=== PATIENT | female | born 1960 | race Caucasian/White ===

== ENCOUNTER 2018-01-15 16:23 | Emergency (ER) | payer MEDICARE, SELFPAY ==
[2018-01-15 16:24] VITALS: PULSE 117; RESP 13; TEMP 36.9; O2SAT 96; BMI 34.0
[2018-01-15 16:28] VITALS: BP 172/101; PULSE 114; RESP 18; O2SAT 96
--- NOTE | 2018-01-15 16:45 | EKG12_ITS ---
Test Reason : CP Blood Pressure : / mmHG Vent. Rate : 114 BPM Atrial Rate : 114 BPM P-R Int : 128 ms QRS Dur : 088 ms QT Int : 342 ms P-R-T Axes : 069 048 064 degrees QTc Int : 471 ms Sinus tachycardia Nonspecific ST abnormality Abnormal ECG Confirmed by SIMON MONTILLA, EBENEZER ([id number]), journalism teacher JOLIE OLGUIN ([id number]) on 01/19/2018 4:20:02 PM Referred By: Confirmed By:EBENEZER MONTES MD
--- NOTE | 2018-01-15 16:50 | RAD_ITS ---
STUDY: X-RAY CHEST REASON FOR EXAM: Female, 57 years old. Chest pain TECHNIQUE: Single AP portable view of the chest. COMPARISON: Previous study of 02/05/2017 FINDINGS: professor/nurse anesthetist leads are present. The lungs are clear and expanded. There is no demonstrated pleural abnormality. Normal size heart. Normal mediastinum and joseluis. Normal visualized pulmonary arteries. There are calcified plaques of the aortic arch. Normal visualized thoracic spine. There is a small smooth margined calcification superior to the right humeral head which may represent calcific tendinitis or bursitis. There is no demonstrated abnormality of the visualized soft tissue structures of the upper abdomen. RAD/Chest 1 View (Portable) IMPRESSION: Calcified plaques of the aortic arch. No acute cardiopulmonary disease process is seen. Electronically Signed: Khris Humphrey MD at 17:23 EST , Service support ,
[2018-01-15 17:00] LABS: Absolute Lymphocyte Count 2.26 X10^3/ul (0.83-4.51); Absolute Neutrophil Count 18.5 X10^3/uL (2.0-7.7); Basophil# 0.03 X10^3/uL; Basophil% 0.1 % (0-1); Hematocrit 41.5 % (37-47); Hemoglobin 14.6 g/dl (12.0-15.0); Lymphocyte # 2.26 X10^3/ul (4.0); Lymphocyte % 10.3 % (19-41); Mean Corp Hgb Conc 35.2 g/gl (32-36); Mean Corpuscular Hgb 29.8 pg (27.0-32.0); Mean Corpuscular Volume 84.7 fL (81-99); Monocyte# 0.97 X10^3/uL; Monocyte% 4.4 % (0-10); Neutrophil # 18.54 X10^3/uL (2.7-7.7); Neutrophil % 84.2 % (47-70); Platelet Count 450 K/mm3 (150-450); RBC Distribution Width CV 13.4 % (11.6-14.6); RBC Distribution Width SD 41.1 fl (35.1-43.9)
[2018-01-15 17:03] LABS: POSITIVE COUNT NO; POSITIVE DIFFERENTIAL NO; POSITIVE MORPHOLOGY NO
[2018-01-15 17:07] VITALS: O2SAT 98
[2018-01-15 17:19] LABS: Anion Gap 7 (5-15); BUN 11 mg/dL (7-18); BUN/Creat Ratio 14.1 RATIO (10-20); Calcium,Total 9.1 mg/dL (8.5-10.1); Chloride 108 mmol/L (98-107); Creatinine, Serum 0.78 mg/dL (0.55-1.02); D-Dimer Quantitative (DVT/PE) 0.37 FEU/ug/m (0.27-0.49); EST Glomerular Filtration Rate 81 mL/min (>60); Est Glom Filt Rate - Afr Amer 98 mL/min (>60); Estimated Creatinine Clearance 62.94 ml/min; Glucose 110 mg/dL (74-106); Potassium 3.7 mmol/L (3.5-5.1); Sodium Level 142 mmol/L (136-145); Thyroid Stim Hormone (TSH) 0.38 uIU/mL (0.358-3.74)
[2018-01-15] MEDS: Aspirin 81 MG TAB.CHEW 324 MG PO (17:19)
[2018-01-15] MEDS: 0.9% Normal Saline 1,000 ML 150 ML IV (17:19)
[2018-01-15 17:48] VITALS: BP 164/105; PULSE 97; RESP 20; O2SAT 97
[2018-01-15] MEDS: Ondansetron ODT 4 MG Tablet PO (17:48)
--- NOTE | 2018-01-15 17:53 | EKG12_ITS ---
Test Reason : REPEAT Blood Pressure : / mmHG Vent. Rate : 090 BPM Atrial Rate : 090 BPM P-R Int : 128 ms QRS Dur : 086 ms QT Int : 380 ms P-R-T Axes : 069 044 047 degrees QTc Int : 464 ms Normal sinus rhythm Normal ECG Confirmed by SIMON MONTILLA, EBENEZER ([id number]), content editor JOLIE OLGUIN ([id number]) on 01/19/2018 4:20:14 PM Referred By: DEON Confirmed By:EBENEZER MONTES MD
[2018-01-15 19:21] LABS: Bacteria 0 SEEN /hpf (None Seen); Mucous, Urine 0 SEEN /hpf (<or=2+); Red Blood Cells-Urine 0 SEEN /hpf (0-5); White Blood Cells 0 SEEN /hpf (0-5)
[2018-01-15 19:51] LABS: Color, Urine Yellow (Yellow); Glucose, Dipstick Normal (Normal); Ketone-Dipstick Negative (Negative); Leukocyte Esterase-Dipstick Negative /ul (Negative); Nitrite-Dipstick Negative (Negative); Occult Blood-Urine Negative /ul (Negative); Protein-Dipstick Negative (Negative); Urine Bilirubin Dipstick Negative (Negative); Urine Clarity Sl. Cloudy (Clear); Urine Urobilinogen Normal (Normal)
[2018-01-15 20:00] VITALS: PULSE 94; RESP 18; O2SAT 97
[2018-01-15 20:15] LABS: Squamous Epithelial Cells - UA 0-5 SEEN /hpf (5-10)
--- NOTE | 2018-01-15 20:48 | ED.VISSUMM ---
- ER Visit Summary Date of Service: 01/15/18 Chief Complaint: Chest pain History of Present Illness: The patient is a [address] Andrew Broderick III and Dr. Shankar. She reports that he she has chest pain again at 1230 this afternoon while she was arguing with her son. She reports that it is a pressure in her back, lower chest on the left, and left shoulder. It was 10 out of 10 at worst and 710 currently. Is worsened by exertion. She taken nitroglycerin with temporary relief. She reports she was nauseated, short of breath, diaphoretic with this. Patient reports that over the course the past month she has had increased dyspnea on exertion and chest pain with exertion. Physical Examination: Vitals: Stable. Afebrile. General: Well-nourished and well-developed. Head: Normocephalic atraumatic. Neck: Supple, no lymphadenopathy. No JVD. Nontender. Cardiovascular: Regular rate and rhythm. No murmurs. Respiratory: No respiratory distress. Clear to auscultation bilaterally. Abdominal: Soft, nontender, nondistended, normal bowel sounds. No guarding, rebound, or peritoneal signs. Back: Nontender. Extremities: Nontender, no edema. Skin: Normal color, no rash. Neurologic: Alert and oriented ?3. Cranial nerves II through XII are intact. Normal strength and sensation. Psych: Normal affect. Test Results: Chest x-ray is normal. EKG is sinus tach 1 with [address] changes. This is unchanged from February 05, 2017. Repeat EKG is unchanged. CBC is marked for a white count of 22, 7 neutrophils 84, lymphocytes of 10. Chem-7 is more for chloride 108 and glucose of 110. UA is normal. Troponin is negative. Repeat troponin is negative. D-dimer is negative. TSH is normal. Emergency Department Course and Treatment: Patient was treated with aspirin and a dose of morphine IV. She is resting comfortably. I had a prolonged discussion with her about being admitted to the hospital on the concerning nature of the character of her chest pain. She is refusing to stay. She will be signed out AGAINST MEDICAL ADVICE. Treatment Plan: I discussed her with Dr. Shankar who also feels that she should stay in the hospital back in and talk with her about that. She still refuses to stay. She is instructed to follow-up with him as soon as possible. Return to the emergency department for any worsening or change in the character of her pain or even if she just changes her mind. Disposition: Left AGAINST MEDICAL ADVICE Impression: 1. Chest pain. 2. DOMINIC score of 1. 3. Left AMA. 4. Leukocytosis, uncertain cause. This note was generated with [employer] dictation software. It may contain incorrect words, spelling, and punctuation that were not noted in review of the chart prior to signing ED Disposition - Plan for ED Patient: Disposition: Against Medical Advice Chief Complaint: Chest Pain Instructions: ED Chest Pain Atypical Unkn Cause Referrals: Lazaro Bazan MD [STAFF PHYSICIAN] - As soon as possible
[2018-01-15 20:49] VITALS: RESP 20
== END 2018-01-15 21:05 | disposition left against medical advice (07) ==
PROVIDERS: Emergency Provider Emergency Medicine; Family Provider Family Medicine; PCP Family Medicine
DX: R07.9 Chest pain, unspecified (principal); D72.829 Elevated white blood cell count, unspecified; R06.09 Other forms of dyspnea; R51 Headache; R11.0 Nausea; F32.9 Major depressive disorder, single episode, unspecified; E11.9 Type 2 diabetes mellitus without complications; I10 Essential (primary) hypertension; E78.00 Pure hypercholesterolemia, unspecified; J44.9 Chronic obstructive pulmonary disease, unspecified; Z86.73 Personal history of transient ischemic attack (TIA), and cerebral infarction without residual deficits; F17.200 Nicotine dependence, unspecified, uncomplicated
CPT/HCPCS: 71045; 80048; 81001; 84443; 84484; 85025; 85379; 93005; 96361; 96374; 99284; J7030; A4216

== ENCOUNTER → 2018-02-09 16:59 | Outpatient (CLI) | payer MEDICARE, SELFPAY ==
--- NOTE | 2018-02-09 17:01 | CT_ITS ---
STUDY: LOW DOSE CT LUNG CANCER SCREENING REASON FOR EXAM: Female, 57 years old. Tobacco use. RADIATION DOSAGE (If Supplied By Facility): CTDIvol = ( 3.02 ) mGy, DLP = ( 94.40 ) mGycm TECHNIQUE: No contrast was administered. Low dose technique was utilized (average mAS-38 and kVp 120). 1.25 mm axial source images with a slice interval of 1.25-mm were reconstructed in lung windows. 2.5 mm axial source images with a slice interval of 2.5-mm were reconstructed in lung windows. 5.0 mm axial source images with a slice interval of 5.0-mm were reconstructed in soft tissue windows. Nodule measured using lung windows on PACS and/or independent workstation with automated measurement of minimum and maximum diameter. Nodule measurement reported as average diameter rounded to the nearest whole number. Growth is defined as an increase ins size of greater than 1.5 mm. COMPARISON: CT of the chest, May 03, 2013. NODULES: Nodule #: 1 Density: Ground glass Lung location: Right upper lobe: 2.8 cm from pleura Location in series: Series Number: 2 Image: 85 Size - D1 x D2 mm: 5 x 4 mm: 5 mm average diameter Margin: Ill-defined Shape: Triangular Calcification: No Fat: No Temporal comparison: No Total lung nodules (excluding granulomas): 1 Emphysema: There is diffuse emphysematous changes of the lungs with blebs in the right upper lobe unchanged from the prior study. Endobronchial lesion: None Aorta: There is atherosclerotic changes of the aorta without aneurysm. Coronary arteries: There are coronary artery calcifications. Heart: The heart is normal in size. Pulmonary artery: Normal Mediastinal nodes: None Other chest and abdominal findings: None CT/Low Dose CT Lung Screening IMPRESSION: Lung-RADS category 2 - Continue annual screening with LDCT in 12 months. IMPORTANT NOTES FOR USE: ACR Lung-RADS Version 1.0 Assessment Categories Release Date: March 13, 2014 Category: Coded 0-4 bases on nodule(s) with highest degree of suspicion. Negative screen is defined as categories 1 and 2; a positive screen is defined as categories 3 and 4. Category 3 and 4A nodules that are unchanged on interval CT should be coded as category 2, and individuals returned to screening in 12 months. Category 4X: Category 3 or 4 nodules with additional imaging findings that increase the suspicion of lung cancer, such as spiculation, GGN that doubles in size in 1 year, enlarged lymph notes, etc. Category Modifiers: S (significant finding unrelated to lung cancer) and C (prior history of treated lung cancer) may be added to the 0-4 Lung-RADS Electronically Signed: Ambrocio Grimes DO at 17:06 EDT Tel [phone], Service support ,
== END ==
PROVIDERS: Family Provider Family Medicine; PCP Family Medicine; Visit Provider Internal Medicine Hematology & Oncology
DX: Z12.2 Encounter for screening for malignant neoplasm of respiratory organs (principal); Z87.891 Personal history of nicotine dependence
CPT/HCPCS: G0297

== ENCOUNTER → 2018-06-16 21:04 | Outpatient (CLI) | payer MEDICARE, SELFPAY ==
[2018-06-16] MEDS: Zolpidem Tartrate 5 MG Tablet PO (21:50)
== END ==
PROVIDERS: Family Provider Family Medicine; PCP Family Medicine; Visit Provider Nurse Practitioner Acute Care
DX: G47.33 Obstructive sleep apnea (adult) (pediatric) (principal)
CPT/HCPCS: 95810

== ENCOUNTER → 2018-06-29 11:03 | Outpatient (CLI) | payer MEDICARE, SELFPAY ==
--- NOTE | 2018-06-29 14:14 | PFT ---
INTRODUCTION: The patient is a 57-year-old female that presents for pulmonary function testing secondary to a diagnosis of dyspnea on exertion. Respiratory therapy reports good patient effort. Bronchodilators were used during testing. INTERPRETATION: Forced expiration spirometry demonstrates no evidence of a large airways obstructive ventilatory defect. There was a significant bronchodilator response noted, based upon change in FEV1. Spirograms are of good quality and plateau normally. Body plethysmography was performed and reveals an elevated RV to 141% of predicted, indicative of underlying air trapping. Diffusing capacity by single breath CO is preserved at 74% of predicted. 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
== END ==
PROVIDERS: Family Provider Family Medicine; PCP Family Medicine; Visit Provider Internal Medicine Critical Care Medicine
DX: R06.09 Other forms of dyspnea (principal)
CPT/HCPCS: 94060; 94726; 94729

== ENCOUNTER → 2018-07-01 11:27 | Outpatient (CLI) | payer MEDICARE, SELFPAY ==
[2018-07-01 13:03] VITALS: PULSE 101; PULSE 104; PULSE 105; PULSE 110; PULSE 111; PULSE 112; PULSE 115; PULSE 98; O2SAT 93; O2SAT 95; O2SAT 96; O2SAT 97
--- NOTE | 2018-07-02 07:37 | PCM.PSN.6M ---
PSN 6 Minute Walk Test - 6 Minute Walk Test 6 Minute Walk Test: 6 Minute Walk Test PSN:6-Minute Walk Test Start: 07/01/18 13:03 Freq: Status: Active Protocol: [id number] Document 07/01/18 13:03 FR (Rec: 07/01/18 13:15 FR [id number]) 6 Minute Walk Test Date Performed 07/01/18 Time Performed 11:30 Height 5 ft 2 in Weight: 180 lb Weight in Pounds 180.[address]: Kumar Manzanares Assistive device used: None Pre-test Oxygen Delivery Method Room Air Pulse Ox (%) 96 Pulse Rate (60-100 beats/min) 104 H Dyspnea Linette Scale (0-10) 3 Exertion Linette Scale (6-20) 9 1st minute Oxygen Delivery Method Room Air Pulse Ox (%) 93 Pulse Rate (60-100 beats/min) 101 H 2nd minute Oxygen Delivery Method Room Air Pulse Ox (%) 95 Pulse Rate (60-100 beats/min) 105 H 3rd minute Oxygen Delivery Method Room Air Pulse Ox (%) 96 Pulse Rate (60-100 beats/min) 110 H 4th minute Oxygen Delivery Method Room Air Pulse Ox (%) 95 Pulse Rate (60-100 beats/min) 115 H 5th minute Oxygen Delivery Method Room Air Pulse Ox (%) 95 Pulse Rate (60-100 beats/min) 111 H Reported Symptoms Increased Work of Breathing 6th minute Oxygen Delivery Method Room Air Pulse Ox (%) 97 Pulse Rate (60-100 beats/min) 112 H Dyspnea Linette Scale (0-10) 14 Reported Symptoms Increased Work of Breathing Post-test Oxygen Delivery Method Room Air Pulse Ox (%) 97 Pulse Rate (60-100 beats/min) 98 Full Laps Walked 17 Partial Lap, Number of Tiles Walked 49 Total Distance Walked (ft) 1052 - Interpretation Interpretation: The patient ambulated 1052 feet over the course of 6 minutes beginning on room air without assistive devices or breaks. Pretesting oxygen saturation was noted be 96% on room air. With ambulation, the norbert oxygen saturation was 93%. The patient was notably tachycardic throughout the entire test. There was no significant exertional oxygen desaturation. - Recommendations Recommendations: There is no indication for the use of supplemental oxygen at this time.
== END ==
PROVIDERS: Family Provider Family Medicine; PCP Family Medicine; Visit Provider Internal Medicine Critical Care Medicine
DX: R06.09 Other forms of dyspnea (principal)
CPT/HCPCS: 94618

== ENCOUNTER → 2018-11-01 20:11 | Outpatient (CLI) | payer MEDICARE, SELFPAY ==
[2018-11-01] MEDS: Zolpidem Tartrate 5 MG Tablet PO (21:15)
--- OUTSIDE RECORDS SUMMARY | 2019-02-03 10:15 | XMS RPT_ITS ---
:1960 Author Organization OHIP Support Name Relationship Address Phone CYNTHIA TANNA Unavailable [address] + [place] [address] D Unavailable Unavailable Unavailable HOLLOWAY, EVERETT Unavailable [address] + [place] [address] CYNTHIA, TANNA Unavailable [address] + [place] [address] D Unavailable Unavailable Unavailable HOLLOWAY, EVERETT Unavailable [address] + [place] [address] CYNTHIA, TANNA Unavailable [address] + [place] [address] D Unavailable Unavailable Unavailable HOLLOWAY, EVERETT Unavailable [address] + [place] [address] CYNTHIA, TANNA Unavailable [address] + [place] [address] D Unavailable Unavailable Unavailable HOLLOWAY, EVERETT Unavailable [address] + [place] [address] CYNTHIA, TANNA Unavailable [address] + [place] [address] D Unavailable Unavailable Unavailable HOLLOWAY, EVERETT Unavailable [address] + [place] [address] CYNTHIA, TANNA Unavailable [address] + [place] [address] D Unavailable Unavailable Unavailable HOLLOWAY, EVERETT Unavailable [address] + [place] [address] CYNTHIA, TANNA Unavailable [address] + [place] [address] D Unavailable Unavailable Unavailable HOLLOWAY, EVERETT Unavailable [address] + [place] [address] CYNTHIA, TANNA Unavailable [address] + [place] [address] D Unavailable Unavailable Unavailable HOLLOWAY, EVERETT Unavailable [address] + [place] [address] CYNTHIA, TANNA Unavailable [address] + [place] [address] D Unavailable Unavailable Unavailable HOLLOWAY, EVERETT Unavailable [address] + [place] [address] CYNTHIA, TANNA Unavailable [address] + [place] [address] D Unavailable Unavailable Unavailable HOLLOWAY, EVERETT Unavailable [address] + [place] [address] CYNTHIA, TANNA Unavailable [address] + [place] [address] D Unavailable Unavailable Unavailable HOLLOWAY, EVERTET Unavailable [address] + [place] [address] Care Team Providers Name Role Phone LAZARO VARGAS Attending Unavailable CEBUL, MARE Referring Unavailable CEBUL, MARE Primary Care Unavailable LAZARO VARGAS Attending Unavailable CEBUL, MARE Referring Unavailable CEBUL, MARE Primary Care Unavailable ARETHA DOMINIQUE Admitting Unavailable ARETHA DOMINIQUE Attending Unavailable CEBUL, MARE Primary Care Unavailable LAZARO VARGAS Attending Unavailable CEBUL, MARE Primary Care Unavailable LAZARO VARGAS Referring Unavailable LAZARO VARGAS Attending Unavailable LAZARO VARGAS Referring Unavailable CEBUL, MARE Primary Care Unavailable ABDOLLAHI MOFAKHAM, ALEXUS Admitting Unavailable ABDOLLAHI MOFSURJITHAM, ALEXUS Attending Unavailable CEBUL III, MARE A Referring Unavailable LAZARO VARGAS Attending Unavailable LAZARO VARGAS Referring Unavailable ARETHA DOMINIQUE Admitting Unavailable ARETHA DOMINIQUE Attending Unavailable LAZARO VARGAS Attending Unavailable CEBUL III, MARE A Referring Unavailable Cebul III, Mare Primary Care Unavailable Enrique Bradford Attending Unavailable Gisell Silva Attending Unavailable Gisell Silva Referring Unavailable Cebul III, Mare Primary Care Unavailable Kumar Manzanares Attending Unavailable Cebul III, Mare Referring Unavailable Kumar Manzanares Attending Unavailable Kumar Manzanares Referring Unavailable Cebul III, Mare Primary Care Unavailable Eloise Holloway Attending Unavailable Cebul III, Mare Referring Unavailable Holloway, Eloise Attending Unavailable Cebul III, Mare Primary Care Unavailable Leighton, Kumar Attending Unavailable Leighton, Kumar Referring Unavailable Cebul III, Mare Primary Care Unavailable Kaz Hodge D.O. Attending Unavailable Leighton, Kumar Referring Unavailable Kaz Hodge D.O. Attending Unavailable Leighton, Kumar Referring Unavailable Leighton, Kumar Attending Unavailable Cebul III, Mare Referring Unavailable Leighton, Kumar Attending Unavailable Cebul III, Mare Primary Care Unavailable CEBUL III, MARE A Attending Unavailable SAM, LAZARO E Referring Unavailable THORPE, JESSEE (TRAIN STATION AGENT) Attending Unavailable RUTTI, LINDSEY (BOOTH USHER) Referring Unavailable RUTTI, LINDSEY (BOOTH USHER) Referring Unavailable RUTTI, LINDSEY (BOOTH USHER) Referring Unavailable RUTTI, LINDSEY (BOOTH USHER) Attending Unavailable CEBUL III, MARE A Attending Unavailable RUTTI, LINDSEY (BOOTH USHER) Referring Unavailable RAJEEV ZUÑIGA Attending Unavailable THORPE, JESSEE (TRAIN STATION AGENT) Referring Unavailable CEBUL III, MARE A Attending Unavailable THORPE, JESSEE (TRAIN STATION AGENT) Attending Unavailable THORPE, JESSEE (TRAIN STATION AGENT) Referring Unavailable SAM, LAZARO E Attending Unavailable SAM, LAZARO E Referring Unavailable THORPE, JESSEE (TRAIN STATION AGENT) Referring Unavailable CEBUL III, MARE A Referring Unavailable CEBUL III, MARE A Attending Unavailable LYNDA HUNTER (TRAIN STATION AGENT) Referring Unavailable RUTTI, LINDSEY (BOOTH USHER) Attending Unavailable RUTTI, LINDSEY (BOOTH USHER) Attending Unavailable CEBUL III, MARE A Referring Unavailable CEBUL III, MARE A Attending Unavailable RICARDO, LAPMAN Referring Unavailable RICARDO, LAPMAN Attending Unavailable CEBUL III, MARE A Referring Unavailable RICARDO, LAPMAN Referring Unavailable RUTTI, LINDSEY (BOOTH USHER) Attending Unavailable SAM, LAZARO E Referring Unavailable LYNDA HUNTER (TRAIN STATION AGENT) Referring Unavailable PROBLEMS PROBLEMS DATE TYPE CONDITION / CODE ATTENDING STATUS SOURCE 11/01/2018 Unknown G47.33 - Obstructive LeightonKumar christina Active [place] sleep apnea (adult) Community (pediatric) / Hospital G47.33(ICD-10) Repository 10/20/2018 Unknown J45.40 - Moderate Leighton, Kumar Active [place] persistent asthma, Community uncomplicated / Hospital J45.40(ICD-10) Repository 10/20/2018 Unknown Z72.0 - Tobacco use Leighton, Kumar Active [place] / Z72.0(ICD-10) [facility] Hospital Repository 08/27/2018 Active Fatty (change of) ABDOLLAHI Active [place] liver, not elsewhere [facility] Other classified / [facility] K76.0(ICD-10) Repository 07/15/2018 Active Unknown / CEBUL III, Active [place] UNK(Unknown) MARE A [facility] Main [place] Repository 07/14/2018 Active Personal history of NA Active [place] other specified Clinic Main conditions / [place] Z87.898(ICD-10) Repository 07/14/2018 Active Nausea / NA Active [place] R11.0(ICD-10) [facility] [place] Repository 07/09/2018 Active Right upper quadrant NA Active [place] pain / Clinic Main R10.11(ICD-10) [place] Repository 07/09/2018 Active Abdominal distension NA Active [place] (gaseous) / Clinic Main R14.0(ICD-10) [place] Repository 07/09/2018 Active Anorexia / NA Active [place] R63.0(ICD-10) Clinic Main [place] Repository 07/08/2018 Unknown R06.09 - Other forms Kaz Hodge, Active [place] of dyspnea / D.O. Community R06.09(ICD-10) Hospital Repository 07/08/2018 Unknown R06.01 - Orthopnea / Kaz Hodge, Active [place] R06.01(ICD-10) D.O. [facility] Hospital Repository 02/09/2018 Unknown Z87.891 - Personal Gisell Silva Active [place] history of nicotine Community dependence / Hospital Z87.891(ICD-10) Repository 12/25/2011 Active Atherosclerotic SAM, Active [place] heart disease of [facility] Other [place] coronary [place] artery without Repository angina pectoris / I25.10(ICD-10) 02/02/2018 Active Secondary NA Active [place] polycythemia / Clinic Main D75.1(ICD-10) [place] Repository 01/29/2018 Active Bandemia / NA Active [place] D72.825(ICD-10) Clinic Main [place] Repository 01/28/2018 Active Essential NA Active [place] (hemorrhagic) Clinic Main thrombocythemia / [place] D47.3(ICD-10) Repository 01/25/2018 Active Angina pectoris, ARETHA DOMINIQUE Active [place] unspecified / [facility]RISTIANO Clinic Other I20.9(ICD-10) [place] Repository 01/22/2018 Active Elevated white blood NA Active [place] cell count, Clinic Main unspecified / [place] D72.829(ICD-10) Repository 01/22/2018 Active Headache / NA Active [place] R51(ICD-10) Clinic Main [place] Repository 05/23/2016 Active Hyperlipidemia, SAM, Active [place] unspecified / LAZARO E Clinic Other E78.5(ICD-10) [place] Repository 01/18/2018 Active Chest pain, SAM, Active [place] unspecified / LAZARO E Clinic Other R07.9(ICD-10) [place] Repository 01/18/2018 Active Other hyperlipidemia SAM, Active [place] / E78.4(ICD-10) LAZARO E Clinic Other [place] Repository 05/23/2016 Admitting Unknown / SAM, Active [place] General diagnosis UNK(Unknown) [facility] Repository 05/26/2013 Active Essential (primary) NA Active [place] hypertension / Clinic Main I10(ICD-10) [place] Repository 03/19/2011 Active Vitamin D NA Active [place] deficiency, Clinic Main unspecified / [place] E55.9(ICD-10) Repository 01/07/2018 Active 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 Clinic Main therapy / [place] Z79.899(ICD-10) Repository 01/07/2018 Active Generalized NA Active [place] hyperhidrosis / Clinic Main R61(ICD-10) [place] Repository PROCEDURES PROCEDURES No Procedure Records FoundRESULTS RESULTS PULMONARY VISIT REPORT Observed: 12/07/2018 Status: F Source: [place] 3:51 PM [facility] REPOSITORY [facility]monary Medicine [address] [place] [address] OFFICE VISIT Date of Service: 12/07/18 MR#: [id number] Acct: [id number] Name: SHU MARIEHAKEEM Humphrey Rep #: [id number] : 1960 Provider: Eloise Holloway Age/Sex: 58/F [place] [facility] [place] Status: Signed Assessment AND Plan Problems 1. Moderate persistent asthma without complication J45.40 Plan Improved. Return to baseline. Continue current maintenance medications. Samples of Brio provided. Keep previously scheduled routine follow-up with Dr. Manzanares on December 28. Contact the office with any new or worsening symptoms in the meantime. HPI 2 W FU: Chief Complaint: Cough HPI Comments Details: This patient presents the office in follow-up after recently being treated for an exacerbation of her asthma. She is ambulatory and currently in room air. She completed the antibiotic and the prednisone taper that was prescribed. She states that her cough is now productive of only clear sputum at times, otherwise is less frequent and nonproductive. Chest tightness has improved, wheezing has resolved. She denies any hemoptysis, fever, chills or body aches. She denies any chest pain or palpitations. She is compliant with Brio daily. She does rinse her mouth after each use. She denies any medication side effects such as sore throat or thrush. She has not needed to use her rescue inhaler recently. She continues to smoke but is down to 1- 1/2 cigarettes/day. She was recently started on BiPAP and is tolerating it fairly well, will keep her previously scheduled follow-up regarding the BiPAP on December 28. Intake Vital Signs12/07/18 Height 5 ft 2 in 12/07/18 Weight: 186 lb Intake Visit Reasons: 2 W FU DME Vendor: Abhishek Accompanied by: Self Allergies acetaminophen Allergy (Severe, Verified 12/07/18 14:42) Hives hydrocodone bitartrate [From Vicodin] Allergy (Severe, Verified 12/07/18 14:42) Hives hydromorphone HCl [From Dilaudid] Allergy (Severe, Verified 12/07/18 14:42) Hives, feels like on fire Penicillins Allergy (Severe, Verified 12/07/18 14:42) Anaphylaxis propoxyphene napsylate [From Darvocet-N 100] Allergy (Severe, Verified 12/07/18 14:42) Hives Sulfa (Sulfonamide Antibiotics) Allergy (Severe, Verified 12/07/18 14:42) Hives adhesive Allergy (Verified 12/07/18 14:42) Rash cephalexin monohydrate [From Keflex] Allergy (Verified 12/07/18 14:42) Rash Heparin Analogues Allergy (Verified 12/07/18 14:42) severe bruising and rash latex Allergy (Verified 12/07/18 14:42) Rash levofloxacin [From Levaquin] Allergy (Verified 12/07/18 14:42) Swelling, rash oxycodone HCl [From Percocet] Allergy (Verified 12/07/18 14:42) Hives oxytocin Allergy (Verified 12/07/18 14:42) Hives Medications Alendronate Sodium [Fosamax] 70 mg PO Q7D@0700 02/05/17 [History Confirmed 12/07/18] Atorvastatin Calcium [Lipitor] 80 mg PO QHS 02/05/17 [History Confirmed 12/07/18] HydrOXYzine [Atarax] 25 mg PO TID PRN PRN 02/05/17 [History Confirmed 12/07/18] Morphine [Morphine IR] 15 mg PO BID PRN 02/05/17 [History Confirmed 12/07/18] Nitroglycerin 0.4 mg SL PRN PRN 02/05/17 [History Confirmed 12/07/18] Pantoprazole Sodium [Protonix] 40 mg PO DAILY 02/05/17 [History Confirmed 12/07/18] proMETHazine tablet [Phenergan] 25 mg PO Q6H PRN PRN 02/05/17 [History Confirmed 12/07/18] Hydrochlorothiazide [Hctz] 12.5 mg PO DAILY 01/15/18 [History Confirmed 12/07/18] Loratadine 10 mg PO DAILY 01/15/18 [History Confirmed 12/07/18] Pregabalin [Lyrica] 100 mg PO TID 01/15/18 [History Confirmed 12/07/18] albuterol sulfate HFA 90 mcg/actuation aerosol inhaler 2 puff INHALATION Q6H PRN #18 g 09/23/18 [Rx Confirmed 12/07/18] losartan 25 mg tablet 25 mg PO DAILY 09/23/18 [History Confirmed 12/07/18] fluticasone 200 mcg-vilanterol 25 mcg/dose powder for inhalation 1 inh INHALATION QDAY #60 ea 10/01/18 [Rx Confirmed 12/07/18] albuterol sulfate 2.5 mg/3 mL (0.083 %) solution for nebulization 2.5 mg INHALATION Q4H #180 vial 11/23/18 [Rx Confirmed 12/07/18] PFSH Medical History Trigeminal neuralgia (Chronic) Hypertension (Chronic) Esophageal reflux (Chronic) Dysmetabolic syndrome (Chronic) DDD (degenerative disc disease), cervical (Chronic) Cocaine substance abuse (Chronic) Migraine (Chronic) Benign essential hypertension (Chronic) Depression (Chronic) Type 2 diabetes mellitus (Chronic) Hyperlipidemia (Chronic) Smoker (Chronic) DJD (degenerative joint disease) (Chronic) TIA (transient ischemic attack) (Acute) Asthma (Chronic) Chronic obstructive lung disease (Ruled-out) Surgical History History of left heart catheterization (Resolved) History of tubal ligation (Resolved) History of appendectomy (Resolved) History of cholecystectomy (Resolved) Family History Mother Cancer Father Cancer Sister Cancer Social History Smoking Status: Current every day smoker second hand exposure: Yes alcohol intake: never substance use type: does not use caffeine: Yes what type of physical activity do you participate in: none Review of Systems Const CONSTITUTIONAL: Negative anorexia, body ache, chills, daytime sleepiness, fever(s), night sweats, oral thrush, stops breathing during sleep, weight loss, sleeping in chair, fatigue, weight loss, weight gain, frequent colds, seasonal allergies, other, headache(s) or orthopnea EETM Ear Nose Throat Mouth: Positive hearing normal; negative hard of hearing, hoarseness, dry mouth in morning, change in vision, itchy eyes, eye pain, swallowing Difficulty, ear pain, nose bleed, headache(s), mouth pain, nasal congestion, nasal discharge, post nasal drip, sinus pain, sinus pressure, sore throat or other Cardio Cardiovascular: Negative chest pain, chest pain at rest, chest pain with activity, irregular heart rhythm, edema, shortness of breath when lying down, palpitations, murmur or other Resp Respiratory: Positive as per HPI, shortness of breath shortness of breath: Positive with activity and cough cough: Positive productive color: Positive thick and clear; negative pain with cough, wheezing, chest congestion, chest tightness, pain on inspiration, inhalers, increase use of rescue inhalers, snoring, apnea or other Gastro Gastrointestional: Negative bloody stools, change in appetite, difficulty swallowing, reflux, hematemesis, melena stool, loose stool, constipation or other Genitourinary: Negative blood in urine, nocturia, pain with urination or other Musc Musculoskeletal: Negative body pain, back pain, neck pain or other Skin/Breast Skin/Breast: Negative dry skin, itching, rash, unusual bruising, breast lump or other Neuro Neurological: Negative restless legs, confusion, weakness or other Psych Psychocological: Negative abnormal sleep pattern, anxiety, thoughts of hurting self/others, hopelessness or other Lymph Lymphatic: Negative easy bleeding, easy bruising, swollen lymph nodes or other Exam Const Constitutional: Positive conversant, cooperative, in no acute respiratory distress, healthy appearing, well developed, well nourished and good hygiene Head Head: Positive normocephalic and atraumatic; negative cyanosis of lips/distal nose Eyes Eye: Positive clear conjunctiva; negative nystagmus or scleral abnormality Ears Ear: Positive hearing normal and external ears normal; negative hard of hearing Nose Nose: Positive external nose normal and no nasal discharge; negative epistaxis Mouth Mouth: Positive oral mucosae normal, no lesions and posterior oropharynx is adequate; negative post nasal drip, malodorous breath or oral thrush present Neck Neck: Positive normal visual inspection, full ROM and trachea midline; negative lymphadenopathy, JVD or tender Chest Wall Chest: Positive symmetric chest movement and increased A/P diameter Resp lung sounds: Positive clear to auscultation, good air exchange, normal expiratory time and normal respiratory effort; negative diminished, wheezes, rhonchi, rales, dullness to percussion or wheeze present on forced exhalation Cardio Cardiac: Positive regular rate, regular rhythm, S1 normal and S2 normal; negative murmur GI GI: Positive normal to inspection; negative distended Genitourinary: Positive deferred [facility] Musculoskeletal: Positive steady gait and ROM normal; negative kyphosis or scoliosis Skin Pulmonary Skin Exam: Positive intact; negative rash Pulses Pulse: Yes pulses normal x4 extremities Extremities Extremities: Yes capillary refill normal, No clubbing, No cyanosis, No edema Neuro Neurologic: Yes conversant, Yes no focal neuro deficits, Yes normal concentration, Yes understands questions, Yes cooperative, Yes normal cognition, Yes normal coordination, No tremor Lymph Lymphatic: No lymphadenopathy Psych Appearance: Positive grossly normal, eye contact and well kempt Mental Status: Positive mental status grossly normal Mood: Positive euphoric mood Affect: Positive normal affect Coding Level of Care Code Off vis,est,level 3 Diagnoses Moderate persistent asthma without complication J45.40 Asthma severity: moderate Asthma complication type: uncomplicated Asthma persistence: persistent 12/07/18 1551 <Electronically signed by Eloise MELARA> Date Eloise MELARA Cosigner Signature: Date (if applicable) CC: Mare River III, MD OBSOLETE Observed: 11/25/2018 Status: COMPLETED Source: [place] 12:00 AM [facility] REPOSITORY Refill (FAMPWS) BRITNEY MARIE ([id number]) 1960 F [facility] Date Time Provider Department 11/25/18 MARE RIVER III FAMGRANT During your visit today, we recorded the following information about you: Ilda Hardin RN, RN 11/25/2018 5:48 PM Signed Patient has been identified by name and date of : Yes Patient phones for refill(s): Pending Prescriptions Disp Refills VALACYCLOVIR 1 GRAM TABLET 20 tablet 1 Sig: Take 1 tablet by mouth twice daily. 1 tablet twice daily x 10 days TIFFANIE: No Pt calling because she is having an outbreak of cold sores under her nose. Date of last office visit in primary care: 09/23/19 Last 2 Encounter Wt Readings: Date: Wt: 11/12/2018 84.8 kg (187 lb) 09/23/2018 84.4 kg (186 lb) Previous labs/tests for medication: Not applicable Please advise. Thank you. Ilda Hardin RN Allergies As of Date: 11/25/2018 Noted Allergy Reaction LATEX 10/21/2013 2 - Rash DARVOCET A500 (PROPOXYPHENE N-CORRIE*08/05/2017 9 - Itching DARVOCET-N 100 (PROPOXYPHENE N-AC*12/11/2009 9 - Itching DILAUDID (HYDROMORPHONE HCL) 08/05/2017 14 - Other: See Comments Comments: Burning sensation over entire body EES [Other] 11/24/2005 HEPARIN ANALOGUES 06/09/2013 4 - Hives 7 - Swelling KEFLEX (CEPHALEXIN) 08/05/2017 7 - Swelling 9 - Itching 12 - Shortness of Breath LEVAQUIN (LEVOFLOXACIN) 11/10/2013 9 - Itching LISINOPRIL 01/17/2015 14 - Other: See Comments Comments: flushing OXYCODONE 08/05/2017 9 - Itching OXYCOTIN (OXYCODONE) 12/11/2009 4 - Hives 7 - Swelling 9 - Itching PENICILLIN 08/05/2017 10 - Anaphylaxis Comments: 4 years old PERCOCET (OXYCODONE-ACETAMINOPHEN)12/11/2009 9 - Itching POLYTRIM (POLYMYXIN B SULF-TRIMET*03/29/2015 7 - Swelling 9 - Itching SULFA (SULFONAMIDE ANTIBIOTICS) 11/24/2005 4 - Hives TEGRETOL (CARBAMAZEPINE) 06/04/2015 1 - Mental Status Change VIBRAMYCIN (DOXYCYCLINE CALCIUM) 08/05/2017 4 - Hives 9 - Itching VICODIN (HYDROCODONE-ACETAMINOPHE*11/24/2005 ADHESIVE TAPE (ROSINS) 03/03/2012 2 - Rash 9 - Itching Date Reviewed: 11/12/2018 Reviewed by: Zuri Delgado Ma - Fully Assessed Reason for Visit: Refill Request [94] Order(s):valACYclovir (VALTREX) 1 gram tabTake 1 tablet by mouth twice daily. 1 tablet twice daily x 10 daysDisp: 20 tabletRfl: 1 Prescriptions as of 11/25/2018 Sig: VALACYCLOVIR 1 GRAM TABLET Take 1 tablet by mouth twice * MECLIZINE 25 MG TABLET Take 1 tablet by mouth every * LOSARTAN 25 MG TABLET Take 1 tablet by mouth once d* DICYCLOMINE 20 MG TABLET Take 1 tablet by mouth three * ROSUVASTATIN 5 MG TABLET Take 1 tablet by mouth daily * METOPROLOL SUCCINATE ER 50 MG* Take 1 tablet by mouth once d* FUROSEMIDE 20 MG TABLET Take 1 tablet by mouth once d* XYZAL ORAL Take by mouth as needed. MORPHINE ER 15 MG TABLET,EXTE* Take 15 mg by mouth twice octavio* SUCRALFATE 1 GRAM TABLET Take at least 30 minutes befo* COLESTIPOL 1 GRAM TABLET Take 2 tablets by mouth once * ONDANSETRON 4 MG DISINTEGRATI* Take 1 tablet by mouth every * BUPROPION HCL SR 150 MG TABLE* Take 1 tablet by mouth twice * FLUTICASONE 200 MCG-VILANTERO* Inhale 1 Inhalation as instru* ALBUTEROL SULFATE 2.5 MG/3 ML* Use 3 mL via nebulizer every * ALBUTEROL SULFATE HFA 90 MCG/* Inhale 2 Puffs as instructed * COENZYME Q10 100 MG CAPSULE Take 1 capsule by mouth twice* Patient not taking: Reported on 09/08/2018 NITROGLYCERIN 0.4 MG SUBLINGU* Dissolve 1 tablet under the t* LORATADINE 10 MG TABLET Take 1 tablet by mouth once d* Patient not taking: Reported on 09/08/2018 PREGABALIN 100 MG CAPSULE Take 1 capsule by mouth three* PANTOPRAZOLE 40 MG TABLET,DEL* Take 1 tablet by mouth once d* Patient not taking: Reported on 09/08/2018 Problem List As Of Date 11/25/2018 Noted Resolved Cocaine substance abuse [F14.10] 09/04/2014 Essential hypertension, benign [I10] INVALID FOR* More... Degenerative disc disease, cervical [M50.30] INVALID FOR* More... Depression [F32.9] INVALID FOR* More... Osteoporosis [M81.0] INVALID FOR* Cervical disc disorder [M50.90] INVALID FOR* Vitamin D deficiency [E55.9] INVALID FOR* Hyperlipidemia with target LDL less than 70 [E7*INVALID FOR* More... ASHD (arteriosclerotic heart disease) [I25.10] INVALID FOR* More... Chest pain [R07.9] INVALID FOR*09/04/2014 More... Tobacco abuse [Z72.0] INVALID FOR* More... Tobacco abuse counseling [Z71.6] INVALID FOR* Migraine headache [G43.909] INVALID FOR* More... SUMMARY [V999.95] INVALID FOR* More... Asthma [J45.909] INVALID FOR* More... Elevated gastrin level [E16.4] INVALID FOR* Flushing [R23.2] INVALID FOR*09/03/2018 Erosive esophagitis [K22.10] INVALID FOR* Spontaneous ecchymoses [R23.3] INVALID FOR* Lumbar back pain with radiculopathy affecting l*INVALID FOR* Arteriosclerosis of carotid artery [I65.29] INVALID FOR* MELYSSA (obstructive sleep apnea) [G47.33] INVALID FOR* Trigeminal neuralgia of right side of face [G50*INVALID FOR* Obesity (BMI 30-39.9) [E66.9] INVALID FOR* Grief [F43.21] INVALID FOR* Other seasonal allergic rhinitis [J30.2] INVALID FOR* Anxiety and depression [F41.9, F32.9] INVALID FOR* Sense of smell altered [R43.9] INVALID FOR* Nonintractable headache [R51] INVALID FOR* Non morbid obesity due to excess calories [E66.*INVALID FOR* Fibrocystic breast changes, bilateral [N60.11, *INVALID FOR* Orthostatic hypotension [I95.1] INVALID FOR* Moderate episode of recurrent major depressive *INVALID FOR* 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 Chronic obstructive pulmonary disease, unspecif*INVALID FOR* Osteoarthritis [M19.90] INVALID FOR* Gastro-esophageal reflux disease without esopha*INVALID FOR* alf (current) use of aspirin [Z79.82] INVALID FOR* alf (current) use of opiate analgesic [Z7*INVALID FOR* Personal history of transient ischemic attack (*INVALID FOR* Orthopnea [R06.01] INVALID FOR* Spinal stenosis, cervical region [M48.02] INVALID FOR* Type 2 diabetes mellitus (HCC) [E11.9] INVALID FOR*09/03/2018 Mixed stress and urge urinary incontinence [N39*INVALID FOR* Abdominal pain [R10.9] INVALID FOR* More... RUQ pain [R10.11] INVALID FOR* More... More... Steatosis of liver [K76.0] INVALID FOR* Fatty liver disease, nonalcoholic [K76.0] INVALID FOR* Bile reflux gastritis [K29.60] INVALID FOR* Prescriptions ordered this encounter Disp Refills Start End VALACYCLOVIR 1 GRAM TABLET 20 t* 1 11/25/2018 Route: ORAL Sig: Take 1 tablet by mouth twice daily. 1 tablet twice daily x 10 days Encounter Status:Closed by MARE RIVER III, MD on 11/25/18 PROGRESS Observed: 11/12/2018 Status: COMPLETED Source: [place] 11:50 AM [facility] [place] REPOSITORY HNO ID: [id number] Author: Katarina Shipley) Benja Service: (none) Author Type: Nurse Practitioner Type: Progress Notes Filed: 11/12/2018 12:02 PM Note Text: Subjective HPI Runny nose, nasal congestion, dizzy. Dizziness will resolve with rest in 10-30 seconds. Symptoms for about 3 days. Has history of sinus surgeries. Review of Systems Constitutional: Positive for chills, diaphoresis, fever and malaise/fatigue. HENT: Positive for congestion and sore throat. Respiratory: Positive for cough and sputum production. Negative for shortness of breath and wheezing. Cardiovascular: Negative. Gastrointestinal: Positive for nausea. Negative for vomiting. Genitourinary: Negative. Musculoskeletal: Positive for myalgias. Neurological: Positive for dizziness. Negative for speech change, focal weakness and loss of consciousness. All other systems reviewed and are negative. Objective Physical Exam Constitutional: She is oriented to person, place, and time and well-developed, well-nourished, and in no distress. HENT: Right Ear: External ear normal. Left Ear: External ear normal. Mouth/Throat: Oropharynx is clear and moist. No oropharyngeal exudate. Bilateral TMs clear with some swelling noted to R TM. Eyes: Conjunctivae are normal. Neck: Normal range of motion. Neck supple. Cardiovascular: Normal rate, regular rhythm and normal heart sounds. Pulmonary/Chest: Effort normal and breath sounds normal. She has no wheezes. She has no rales. Musculoskeletal: Normal range of motion. Neurological: She is alert and oriented to person, place, and time. Gait normal. GCS score is 15. Skin: Skin is warm and dry. Psychiatric: Mood, memory, affect and judgment normal. Nursing note and vitals reviewed. BP 122/70 Pulse 101 Temp (!) 38.4 ?C (101.1 ?F) (Left Tympanic) Resp 18 Wt 84.8 kg (187 lb) SpO2 95% BMI 34.20 kg/m? .Patient presents with: Flu Like Symptoms PAST MEDICAL HISTORY Diagnosis Date - ASHD (arteriosclerotic heart disease) 10/14/2011 - Bandemia 01/29/2018 - Bile reflux gastritis 09/23/2018 - Cervical disc disorder at C4-C5 level with radiculopathy - Cocaine substance abuse (HCC) 2003 - COPD (chronic obstructive pulmonary disease) ([facility]) - Degenerative disc disease, cervical 2010 - Depression 2010 - Dysmetabolic syndrome X 01/21/2011 - Dyspnea on exertion - Erosive esophagitis 09/04/2014 - Esophageal reflux Gastroesophageal reflux - Essential hypertension, benign 09/09/2010 no meds currently 03/26 - Fatty liver disease, nonalcoholic 09/03/2018 - Fibrocystic breast changes, bilateral 01/28/2017 - Hyperlipidemia LDL goal < 70 10/14/2011 - Migraine headache 01/23/2012 - Moderate persistent asthma without complication - Myalgia - Nodule of right lung 03/02/2018 02/09/18: 5 mm to recheck in 1 yr - Non morbid obesity due to excess calories 08/29/2016 - Obstructive sleep apnea - Osteoporosis 03/13/2011 - Other cervical disc displacement at C4-C5 level - Other intervertebral disc displacement, lumbar region - Other muscle spasm - Other specified dorsopathies, lumbosacral region - Peptic ulcer, unspecified site, unspecified as acute or chronic, without mention of hemorrhage, perforation, or obstruction Peptic ulcer disease - Spinal stenosis, cervical region - Spondylosis without myelopathy or radiculopathy, cervical region - Steatosis of liver 07/30/2018 - Tobacco abuse 01/23/2012 - Trigeminal neuralgia 12/29/2013 - Type 2 diabetes mellitus (HCC) 07/15/2018 - Vitamin D deficiency 03/19/2011 PAST SURGICAL HISTORY Procedure Laterality Date - ANTERIOR INTERBODY FUSION, CERVICAL 1992 - APPENDECTOMY 2004-6 - CHOLECYSTECTOMY about 2005- sludge - COLONOSCOP W/ OR W/O [facility] SPEC 04/30/2010 Dr. Rayshawn Shrestha - COLONOSCOP W/ OR W/O [facility] SPEC 08/10/13 Colonoscopy - COLONOSCOP W/ OR W/O [facility] SPEC 08/03/2018 Colonoscopy - EGD W/O OR W/BRUSH/WASH 08/10/13 EGD - EGD W/O OR W/BRUSH/WASH 08/03/2018 EGD - LAPAROSCOPY, SURGICAL, ESOPHAGOGAST 3-12-10 [facility] - LEFT HEART CATH,PERCUTANEOUS 12/17/11 Cardiac cath, L heart, see scanned report - Tonsilectomy - TUBAL LIGATION, - XR CERVICAL FUSION OR 1997 posterior fusion ALLERGIES Latex; Darvocet A500 [Propoxyphene N-Acetaminophen]; Darvocet-N 100 [Propoxyphene N-Acetaminophen]; Dilaudid [Hydromorphone Hcl]; Ees [Other]; Heparin Analogues; Keflex [Cephalexin]; Levaquin [Levofloxacin]; Lisinopril; Oxycodone; Oxycotin [Oxycodone]; Penicillin; Percocet [Oxycodone-Acetaminophen]; Polytrim [Polymyxin B Sulf-Trimethoprim]; Sulfa (Sulfonamide Antibiotics); Tegretol [Carbamazepine]; Vibramycin [Doxycycline Calcium]; Vicodin [Hydrocodone-Acetaminophen]; Adhesive Tape (Rosins) MEDICATIONS albuterol (PROVENTIL) 2.5 mg /3 mL (0.083 %) nebulizer solution Use 3 mL via nebulizer every 4 hours as needed for Wheezing/Shortness of Breath. Use over 5-15minutes. albuterol HFA (VENTOLIN HFA) 90 mcg/actuation inhaler Inhale 2 Puffs as instructed every 4 hours as needed for Wheezing/Shortness of Breath. buPROPion SR (WELLBUTRIN SR) 150 mg 12 hr tablet Take 1 tablet by mouth twice daily. colestipol (COLESTID) 1 gram tablet Take 2 tablets by mouth once daily. losartan (COZAAR) 25 mg tablet Take 1 tablet by mouth once daily. metoprolol succinate ER (TOPROL XL) 50 mg 24 hr tablet Take 1 tablet by mouth once daily. morphine SR (MS CONTIN, ORAMORPH SR) 15 mg 12 hr tablet Take 15 mg by mouth twice daily. nitroglycerin sublingual (NITROQUICK) 0.4 mg SL tablet Dissolve 1 tablet under the tongue as needed. FOR CHEST PAIN. IF NO RELIEF CALL 911 ondansetron orally disintegrating (ZOFRAN ODT) 4 mg disintegrating tablet Take 1 tablet by mouth every 6 hours as needed for Nausea/Vomiting. pregabalin (LYRICA) 100 mg capsule Take 1 capsule by mouth three times daily. rosuvastatin (CRESTOR) 5 mg tablet Take 1 tablet by mouth daily at bedtime. sucralfate (CARAFATE) 1 gram tablet Take at least 30 minutes before eating, and again before bed, if needed. coenzyme Q10 (COQ-10) 100 mg cap capsule Take 1 capsule by mouth twice daily. dicyclomine (BENTYL) 20 mg tablet Take 1 tablet by mouth three times daily before meals. fluticasone-vilanterol (BREO ELLIPTA) 200-25 mcg/dose inhaler Inhale 1 Inhalation as instructed once daily. Inhale one puff once daily. DO NOT CLICK OPEN UNTIL READY FOR DOSE furosemide (LASIX) 20 mg tablet Take 1 tablet by mouth once daily. levocetirizine dihydrochloride (XYZAL ORAL) Take by mouth as needed. loratadine (CLARITIN) 10 mg tablet Take 1 tablet by mouth once daily. meclizine (ANTIVERT) 25 mg tab Take 1 tablet by mouth every 6 hours as needed (dizziness). pantoprazole DR (PROTONIX) 40 mg tablet Take 1 tablet by mouth once daily. FAMILY HISTORY Problem Relation Age of Onset - Heart Father 35 - Cancer Father - Cancer Mother - Breast Cancer Paternal Grandmother - Breast Cancer Paternal Aunt - Cancer Maternal Uncle LUNG - Heart Maternal Grandmother Social History Substance Use Topics - Smoking status: Current Every Day Smoker Packs/day: 0.25 Years: 45.00 Types: Cigarettes - Smokeless tobacco: Never Used Comment: trying to quit - Alcohol use No ASSESSMENT/PLAN: 1. BPPV (benign paroxysmal positional vertigo), unspecified laterality - ICD9: 386.11, ICD10: H81.10 Pt notes that symptoms will resolve with short rest (10-30 seconds) and are usually instigated by changes in position. Discussed the need to go to the ER for any worsening symptoms. Pt is agreeable. Pt has Meclizine at home for vertigo but is unsure of the age, will prescribe new. - MECLIZINE 25 MG TABLET Katarina Burt APRN.CNP Prescription instructions reviewed with patient as applicable. Patient advised if symptoms do not improve or if symptoms worsen sooner, to contact the office for further evaluation by either myself or their primary care physician. Potential red flag symptoms discussed with the patient. Reviewed appropriate action plan to take if red flag symptoms occur. Patient agreeable to treatment plan. Katarina Burt APRN.CNP CNOV Observed: 11/12/2018 Status: COMPLETED Source: [place] 11:45 AM [facility] REPOSITORY Office Visit (WSTR) BRITNEY MARIE ([id number]) 1960 F T Date Time Provider Department 11/12/18 11:45 AM KATARINA BURT) [facility] During your visit today, we recorded the following information about you: Temperature Pulse Respiration Blood pressure 101.1 degrees 101/minute 18/minute 122/70 Weight 84.8 kg Katarina Burt APRN.CNP 11/12/2018 12:02 PM Signed Subjective HPI Runny nose, nasal congestion, dizzy. Dizziness will resolve with rest in 10-30 seconds. Symptoms for about 3 days. Has history of sinus surgeries. Review of Systems Constitutional: Positive for chills, diaphoresis, fever and malaise/fatigue. HENT: Positive for congestion and sore throat. Respiratory: Positive for cough and sputum production. Negative for shortness of breath and wheezing. Cardiovascular: Negative. Gastrointestinal: Positive for nausea. Negative for vomiting. Genitourinary: Negative. Musculoskeletal: Positive for myalgias. Neurological: Positive for dizziness. Negative for speech change, focal weakness and loss of consciousness. All other systems reviewed and are negative. Objective Physical Exam Constitutional: She is oriented to person, place, and time and well-developed, well-nourished, and in no distress. HENT: Right Ear: External ear normal. Left Ear: External ear normal. Mouth/Throat: Oropharynx is clear and moist. No oropharyngeal exudate. Bilateral TMs clear with some swelling noted to R TM. Eyes: Conjunctivae are normal. Neck: Normal range of motion. Neck supple. Cardiovascular: Normal rate, regular rhythm and normal heart sounds. Pulmonary/Chest: Effort normal and breath sounds normal. She has no wheezes. She has no rales. Musculoskeletal: Normal range of motion. Neurological: She is alert and oriented to person, place, and time. Gait normal. GCS score is 15. Skin: Skin is warm and dry. Psychiatric: Mood, memory, affect and judgment normal. Nursing note and vitals reviewed. BP 122/70 Pulse 101 Temp (!) 38.4 ?C (101.1 ?F) (Left Tympanic) Resp 18 Wt 84.8 kg (187 lb) SpO2 95% BMI 34.20 kg/m? .Patient presents with: Flu Like Symptoms PAST MEDICAL HISTORY Diagnosis Date - ASHD (arteriosclerotic heart disease) 10/14/2011 - Bandemia 01/29/2018 - Bile reflux gastritis 09/23/2018 - Cervical disc disorder at C4-C5 level with radiculopathy - Cocaine substance abuse ([facility]) 2003 - COPD (chronic obstructive pulmonary disease) ([facility]) - Degenerative disc disease, cervical 2010 - Depression 2010 - Dysmetabolic syndrome X 01/21/2011 - Dyspnea on exertion - Erosive esophagitis 09/04/2014 - Esophageal reflux Gastroesophageal reflux - Essential hypertension, benign 09/09/2010 no meds currently 03/26 - Fatty liver disease, nonalcoholic 09/03/2018 - Fibrocystic breast changes, bilateral 01/28/2017 - Hyperlipidemia LDL goal < 70 10/14/2011 - Migraine headache 01/23/2012 - Moderate persistent asthma without complication - Myalgia - Nodule of right lung 03/02/2018 02/09/18: 5 mm to recheck in 1 yr - Non morbid obesity due to excess calories 08/29/2016 - Obstructive sleep apnea - Osteoporosis 03/13/2011 - Other cervical disc displacement at C4-C5 level - Other intervertebral disc displacement, lumbar region - Other muscle spasm - Other specified dorsopathies, lumbosacral region - Peptic ulcer, unspecified site, unspecified as acute or chronic, without mention of hemorrhage, perforation, or obstruction Peptic ulcer disease - Spinal stenosis, cervical region - Spondylosis without myelopathy or radiculopathy, cervical region - Steatosis of liver 07/30/2018 - Tobacco abuse 01/23/2012 - Trigeminal neuralgia 12/29/2013 - Type 2 diabetes mellitus (HCC) 07/15/2018 - Vitamin D deficiency 03/19/2011 PAST SURGICAL HISTORY Procedure Laterality Date - ANTERIOR INTERBODY FUSION, CERVICAL 1992 - APPENDECTOMY 2004- - CHOLECYSTECTOMY about 2005- sludge - COLONOSCOP W/ OR W/O [facility] SPEC 04/30/2010 Dr. Rayshawn Shrestha - COLONOSCOP W/ OR W/O [facility] SPEC 08/10/13 Colonoscopy - COLONOSCOP W/ OR W/O [facility] SPEC 08/03/2018 Colonoscopy - EGD W/O OR W/BRUSH/WASH 08/10/13 EGD - EGD W/O OR W/BRUSH/WASH 08/03/2018 EGD - LAPAROSCOPY, SURGICAL, ESOPHAGOGAST 01-25-10 [facility] - LEFT HEART CATH,PERCUTANEOUS 12/17/11 Cardiac cath, L heart, see scanned report - Tonsilectomy - TUBAL LIGATION, - XR CERVICAL FUSION OR 1998 posterior fusion ALLERGIES Latex; Darvocet A500 [Propoxyphene N-Acetaminophen]; Darvocet-N 100 [Propoxyphene N-Acetaminophen]; Dilaudid [Hydromorphone Hcl]; Ees [Other]; Heparin Analogues; Keflex [Cephalexin]; Levaquin [Levofloxacin]; Lisinopril; Oxycodone; Oxycotin [Oxycodone]; Penicillin; Percocet [Oxycodone-Acetaminophen]; Polytrim [Polymyxin B Sulf-Trimethoprim]; Sulfa (Sulfonamide Antibiotics); Tegretol [Carbamazepine]; Vibramycin [Doxycycline Calcium]; Vicodin [Hydrocodone-Acetaminophen]; Adhesive Tape (Rosins) MEDICATIONS albuterol (PROVENTIL) 2.5 mg /3 mL (0.083 %) nebulizer solution Use 3 mL via nebulizer every 4 hours as needed for Wheezing/Shortness of Breath. Use over 5-15minutes. albuterol HFA (VENTOLIN HFA) 90 mcg/actuation inhaler Inhale 2 Puffs as instructed every 4 hours as needed for Wheezing/Shortness of Breath. buPROPion SR (WELLBUTRIN SR) 150 mg 12 hr tablet Take 1 tablet by mouth twice daily. colestipol (COLESTID) 1 gram tablet Take 2 tablets by mouth once daily. losartan (COZAAR) 25 mg tablet Take 1 tablet by mouth once daily. metoprolol succinate ER (TOPROL XL) 50 mg 24 hr tablet Take 1 tablet by mouth once daily. morphine SR (MS CONTIN, ORAMORPH SR) 15 mg 12 hr tablet Take 15 mg by mouth twice daily. nitroglycerin sublingual (NITROQUICK) 0.4 mg SL tablet Dissolve 1 tablet under the tongue as needed. FOR CHEST PAIN. IF NO RELIEF CALL 911 ondansetron orally disintegrating (ZOFRAN ODT) 4 mg disintegrating tablet Take 1 tablet by mouth every 6 hours as needed for Nausea/Vomiting. pregabalin (LYRICA) 100 mg capsule Take 1 capsule by mouth three times daily. rosuvastatin (CRESTOR) 5 mg tablet Take 1 tablet by mouth daily at bedtime. sucralfate (CARAFATE) 1 gram tablet Take at least 30 minutes before eating, and again before bed, if needed. coenzyme Q10 (COQ-10) 100 mg cap capsule Take 1 capsule by mouth twice daily. dicyclomine (BENTYL) 20 mg tablet Take 1 tablet by mouth three times daily before meals. fluticasone-vilanterol (BREO ELLIPTA) 200-25 mcg/dose inhaler Inhale 1 Inhalation as instructed once daily. Inhale one puff once daily. DO NOT CLICK OPEN UNTIL READY FOR DOSE furosemide (LASIX) 20 mg tablet Take 1 tablet by mouth once daily. levocetirizine dihydrochloride (XYZAL ORAL) Take by mouth as needed. loratadine (CLARITIN) 10 mg tablet Take 1 tablet by mouth once daily. meclizine (ANTIVERT) 25 mg tab Take 1 tablet by mouth every 6 hours as needed (dizziness). pantoprazole DR (PROTONIX) 40 mg tablet Take 1 tablet by mouth once daily. FAMILY HISTORY Problem Relation Age of Onset - Heart Father 35 - Cancer Father - Cancer Mother - Breast Cancer Paternal Grandmother - Breast Cancer Paternal Aunt - Cancer Maternal Uncle LUNG - Heart Maternal Grandmother Social History Substance Use Topics - Smoking status: Current Every Day Smoker Packs/day: 0.25 Years: 45.00 Types: Cigarettes - Smokeless tobacco: Never Used Comment: trying to quit - Alcohol use No ASSESSMENT/PLAN: 1. BPPV (benign paroxysmal positional vertigo), unspecified laterality - ICD9: 386.11, ICD10: H81.10 Pt notes that symptoms will resolve with short rest (10-30 seconds) and are usually instigated by changes in position. Discussed the need to go to the ER for any worsening symptoms. Pt is agreeable. Pt has Meclizine at home for vertigo but is unsure of the age, will prescribe new. - MECLIZINE 25 MG TABLET Katarina Burt APRN.CNP Prescription instructions reviewed with patient as applicable. Patient advised if symptoms do not improve or if symptoms worsen sooner, to contact the office for further evaluation by either myself or their primary care physician. Potential red flag symptoms discussed with the patient. Reviewed appropriate action plan to take if red flag symptoms occur. Patient agreeable to treatment plan. VIVIEN Wheat APRN.CNP 11/12/2018 12:00 PM Signed Benign Paroxysmal Positional Vertigo (BPPV) What is BPPV? Benign Paroxysmal Positional Vertigo (BPPV) is an inner ear disorder in which changes to the position of the head, such as tipping the head backward, lead to sudden vertigo -- a feeling that the room is spinning. Vertigo can vary in intensity from mild to severe and usually lasts only a few minutes. It may be accompanied by other symptoms, including dizziness lightheadedness a sense of imbalance nausea vomiting Anatomy of the right inner ear. Particle repositioning therapy moves the otoconia out of the semicircular canals and into the utricle where they dissolve naturally. BPPV is not a sign of a serious problem, and it usually disappears on its own within 6 weeks of the first episode. However, the symptoms of BPPV can be very frightening and may be dangerous, especially in older individuals. The unsteadiness associated with BPPV can lead to falls. About half of all people over age 65 experience an episode of BPPV, and falls are a leading cause of fractures in this age-range. What causes BPPV? BPPV develops when calcium carbonate crystals, which are known as otoconia, shift into and become trapped within the semicircular canals (one of the vestibular organs of the inner ear that controls balance). The otoconia make up a normal part of the structure of the utricle, a vestibular organ next to the semicircular canals. (see illustration to the right.) In the utricle, the otoconia may be loosened as a result of injury, infection, or age, and they land in a sac -- the utricle -- where they are naturally dissolved. However, otoconia in the semicircular canals will not dissolve. As a person?s head position changes, the otoconia begin to roll around and push on the tiny hairs that line the semicircular canals. Those hairs act as sensors to give the brain information about balance. Vertigo develops when the hairs are stimulated by the rolling otoconia. What head positions trigger BPPV? Movements that can trigger an episode of BPPV include rolling over or sitting up in bed, bending the head forward to look down, or tipping the head backward. In most people, only a single ear is affected by BPPV, although both ears may be involved on occasion. How is BPPV diagnosed and treated? With advances in medical technology, BPPV can easily be diagnosed and treated. The diagnosis can usually be made in the office based on medical history and a physical exam. Treatment also involves a short, simple in- office procedure known as the particle repositioning maneuver. (See addendum below.) How can I identify the affected side? Steps to determine affected side: Sit on bed so that if you lie down, your head hangs slightly over the end of the bed. Turn head to the right and lie back quickly. Wait 1 minute. If you feel dizzy, then the right ear is your affected ear. If no dizziness occurs, sit up. Wait 1 minute. Turn head to the left and lie back quickly. Wait 1 minute. If you feel dizzy, then the left ear is your affected ear. How successful is the treatment? A single particle repositioning procedure is effective in treating about 80% to 90% of cases of BPPV. Additional exercise or repositioning maneuvers may be needed if symptoms persist. Can BPPV recur? If so, what can I do? A new episode of BPPV can develop after successful treatment -- on average there is a 15 percent rate of recurrence each year. However, it may be possible to treat recurrent BPPV at home by performing a series of movements at the time an episode occurs. Patients will receive information on ways to handle recurrences on their own or they can work with a physical therapist to develop a plan. In general, if you wake up with positional vertigo, slowly move into the [id number] position and wait for a minute. Next, slowly move into a face-down position and slide to the foot of the bed. Keep your head down until you reach the end of the bed and are kneeling or standing on the floor. Slowly bring your head backward into an upright position. Hold on to the bed at all times. Another method is to sit toward the foot of the bed, leaving enough room to lay back with your head resting comfortably at the end of the bed, slightly extended. Be careful not to overextend your neck, as this may aggravate existing neck problems. If your symptoms are severe, you may need assistance to complete the maneuver. Follow the same steps as described in the boxed instructions on the next page. Without treatment, the symptoms of BPPV may worsen. However, with time, the otoconia dissolve on their own, which is usually within 6 weeks. Until the time the otoconia dissolve on their own, the number and severity of episodes may be reduced simply by paying careful attention to head position. In addition, anti-motion sickness drugs can be given to control nausea. However, before drugs are taken, it is usually best to try the particle repositioning procedure first. It is a very safe and rapid way to relieve symptoms and reduce the chance for falls. Medications should not be taken for a long period of time. ADDENDUM Particle repositioning procedure: [id number] instructions The particle repositioning procedure takes about 15 minutes to complete and involves a series of physical movements that change the position of the head and body. These actions shift the otoconia out of the semicircular canals and back into their proper location in the utricle. The particle repositioning procedure begins with the patient is sitting up and then lying down on a treatment table. The procedure is very easy to perform. Patients should wear comfortable clothing that will allow them to move freely. Hold each of the following positions for 1 to 2 minutes. Step 1: Turn your head toward your affected ear. Step 2: Lay back quickly. Hold. Step 3: Keep your head back against the bed and turn it toward the good ear. Hold. Step 4: Roll onto your side with your good ear down. Your nose should be turned toward the floor. Hold. Step 5: Sit up, keeping your chin tucked in toward your shoulder. Hold. When you end, you should be sitting over the side of your bed so your feet touch the floor. Step 6: Follow your post-particle repositioning instructions. ? BPPV: Glossary of Terms Semicircular canals: These structures act like a gyroscope, with canals positioned in three dimensions -- upward, downward, and horizontal. Together, the canals send signals to the brain about the rotation/positioning of the head (for example, when you bend over or spin around.) Cupula: Detects the flow of fluid within the semicircular canals. The flow of fluid gives the body a sense of motion. Utricle: An organ located in the inner ear that helps control balance. The utricle contains hair cells, which are covered with otoconia. The otoconia sway with gravity, sending signals to the brain about the position of the head and body (upright, tilted, etc). Otoconia: The tiny calcium crystal particles that become dislodged from within the utricle (where they can dissolve) and move into the semicircular canals (where they can?t dissolve). Cochlea: The 'snail-shell' sense organ of the inner ear that translates sound into nerve impulses and sent to the brain. References Real BT, Kam LB. Garrett GUEVARA. Peripheral Vestibular Disorders. In: [facility], Head [facility] Neck [facility], 3-Volume Set. Hector; 2014. Vivienne Humphrey. Benign Paroxysmal Positional Vertigo (BPPV): History, Pathophysiology, Office Treatment and Future Directions. International Journal of Otolaryngology. 2011;2011:536357. Micheline JS, Susanne DS. Clinical practice. Benign paroxysmal positional vertigo. N Engl J Med. 2014 Feb 02;370(12):1138-47. Naveen Pereira DD, Suneja M, Szot JF. The Head and Neck. In: Naveen Pereira DD, Neel Barber. eds. DeGowin?s Diagnostic Examination, 10e. [place], [place]: [facility], [place], operated by [facility]; 2015. ?Copyright 3446-6612 The [facility]. All rights reserved This information is provided by the [facility] and is not intended to replace the medical advice of your doctor or health care provider. Please consult your health care provider for advice about a specific medical condition. For additional health information, please contact the Center for Consumer Health Information at the [facility] or toll-free extension [phone]. If you prefer, you may visit [email or web address] or [email or web address]. This document was last reviewed on: 2015 index#[id number] Referring Provider: SELF [[id number]] Allergies As of Date: 11/12/2018 Noted Allergy Reaction LATEX 10/21/2013 2 - Rash DARVOCET A500 (PROPOXYPHENE N-CORRIE*08/05/2017 9 - Itching DARVOCET-N 100 (PROPOXYPHENE N-AC*12/11/2009 9 - Itching DILAUDID (HYDROMORPHONE HCL) 08/05/2017 14 - Other: See Comments Comments: Burning sensation over entire body EES [Other] 11/24/2005 HEPARIN ANALOGUES 06/09/2013 4 - Hives 7 - Swelling KEFLEX (CEPHALEXIN) 08/05/2017 7 - Swelling 9 - Itching 12 - Shortness of Breath LEVAQUIN (LEVOFLOXACIN) 11/10/2013 9 - Itching LISINOPRIL 01/17/2015 14 - Other: See Comments Comments: flushing OXYCODONE 08/05/2017 9 - Itching OXYCOTIN (OXYCODONE) 12/11/2009 4 - Hives 7 - Swelling 9 - Itching PENICILLIN 08/05/2017 10 - Anaphylaxis Comments: 4 years old PERCOCET (OXYCODONE-ACETAMINOPHEN)12/11/2009 9 - Itching POLYTRIM (POLYMYXIN B SULF-TRIMET*03/29/2015 7 - Swelling 9 - Itching SULFA (SULFONAMIDE ANTIBIOTICS) 11/24/2005 4 - Hives TEGRETOL (CARBAMAZEPINE) 06/04/2015 1 - Mental Status Change VIBRAMYCIN (DOXYCYCLINE CALCIUM) 08/05/2017 4 - Hives 9 - Itching VICODIN (HYDROCODONE-ACETAMINOPHE*11/24/2005 ADHESIVE TAPE (ROSINS) 03/03/2012 2 - Rash 9 - Itching Date Reviewed: 11/12/2018 Reviewed by: Zuri Delgado Ma - Fully Assessed Reason for Visit: Flu Like Symptoms [267] Primary Visit Diagnosis:BPPV (benign paroxysmal positional vertigo), unspecified laterality [H81.10] Order(s):meclizine (ANTIVERT) 25 mg tabTake 1 tablet by mouth every 6 hours as needed (dizziness).Disp: 12 tabletRfl: 0 Prescriptions as of 11/12/2018 Sig: ALBUTEROL SULFATE 2.5 MG/3 ML* Use 3 mL via nebulizer every * ALBUTEROL SULFATE HFA 90 MCG/* Inhale 2 Puffs as instructed * BUPROPION HCL SR 150 MG TABLE* Take 1 tablet by mouth twice * COLESTIPOL 1 GRAM TABLET Take 2 tablets by mouth once * LOSARTAN 25 MG TABLET Take 1 tablet by mouth once d* METOPROLOL SUCCINATE ER 50 MG* Take 1 tablet by mouth once d* MORPHINE ER 15 MG TABLET,EXTE* Take 15 mg by mouth twice octavio* NITROGLYCERIN 0.4 MG SUBLINGU* Dissolve 1 tablet under the t* ONDANSETRON 4 MG DISINTEGRATI* Take 1 tablet by mouth every * PREGABALIN 100 MG CAPSULE Take 1 capsule by mouth three* ROSUVASTATIN 5 MG TABLET Take 1 tablet by mouth daily * SUCRALFATE 1 GRAM TABLET Take at least 30 minutes befo* COENZYME Q10 100 MG CAPSULE Take 1 capsule by mouth twice* Patient not taking: Reported on 09/08/2018 DICYCLOMINE 20 MG TABLET Take 1 tablet by mouth three * FLUTICASONE 200 MCG-VILANTERO* Inhale 1 Inhalation as instru* FUROSEMIDE 20 MG TABLET Take 1 tablet by mouth once d* XYZAL ORAL Take by mouth as needed. LORATADINE 10 MG TABLET Take 1 tablet by mouth once d* Patient not taking: Reported on 09/08/2018 MECLIZINE 25 MG TABLET Take 1 tablet by mouth every * PANTOPRAZOLE 40 MG TABLET,DEL* Take 1 tablet by mouth once d* Patient not taking: Reported on 09/08/2018 Problem List As Of Date 11/12/2018 Noted Resolved Cocaine substance abuse [F14.10] 09/04/2014 Essential hypertension, benign [I10] INVALID FOR* More... Degenerative disc disease, cervical [M50.30] INVALID FOR* More... Depression [F32.9] INVALID FOR* More... Osteoporosis [M81.0] INVALID FOR* Cervical disc disorder [M50.90] INVALID FOR* Vitamin D deficiency [E55.9] INVALID FOR* Hyperlipidemia with target LDL less than 70 [E7*INVALID FOR* More... ASHD (arteriosclerotic heart disease) [I25.10] INVALID FOR* More... Chest pain [R07.9] INVALID FOR*09/04/2014 More... Tobacco abuse [Z72.0] INVALID FOR* More... Tobacco abuse counseling [Z71.6] INVALID FOR* Migraine headache [G43.909] INVALID FOR* More... SUMMARY [V999.95] INVALID FOR* More... Asthma [J45.909] INVALID FOR* More... Elevated gastrin level [E16.4] INVALID FOR* Flushing [R23.2] INVALID FOR*09/03/2018 Erosive esophagitis [K22.10] INVALID FOR* Spontaneous ecchymoses [R23.3] INVALID FOR* Lumbar back pain with radiculopathy affecting l*INVALID FOR* Arteriosclerosis of carotid artery [I65.29] INVALID FOR* MELYSSA (obstructive sleep apnea) [G47.33] INVALID FOR* Trigeminal neuralgia of right side of face [G50*INVALID FOR* Obesity (BMI 30-39.9) [E66.9] INVALID FOR* Grief [F43.21] INVALID FOR* Other seasonal allergic rhinitis [J30.2] INVALID FOR* Anxiety and depression [F41.9, F32.9] INVALID FOR* Sense of smell altered [R43.9] INVALID FOR* Nonintractable headache [R51] INVALID FOR* Non morbid obesity due to excess calories [E66.*INVALID FOR* Fibrocystic breast changes, bilateral [N60.11, *INVALID FOR* Orthostatic hypotension [I95.1] INVALID FOR* Moderate episode of recurrent major depressive *INVALID FOR* 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 RUQ pain [R10.11] INVALID FOR* More... More... Steatosis of liver [K76.0] INVALID FOR* Fatty liver disease, nonalcoholic [K76.0] INVALID FOR* Bile reflux gastritis [K29.60] INVALID FOR* Other instructions from your clinician: Benign Paroxysmal Positional Vertigo (BPPV) What is BPPV? Benign Paroxysmal Positional Vertigo (BPPV) is an inner ear disorder in which changes to the position of the head, such as tipping the head backward, lead to sudden vertigo -- a feeling that the room is spinning. Vertigo can vary in intensity from mild to severe and usually lasts only a few minutes. It may be accompanied by other symptoms, including dizziness lightheadedness a sense of imbalance nausea vomiting Anatomy of the right inner ear. Particle repositioning therapy moves the otoconia out of the semicircular canals and into the utricle where they dissolve naturally. BPPV is not a sign of a serious problem, and it usually disappears on its own within 6 weeks of the first episode. However, the symptoms of BPPV can be very frightening and may be dangerous, especially in older individuals. The unsteadiness associated with BPPV can lead to falls. About half of all people over age 65 experience an episode of BPPV, and falls are a leading cause of fractures in this age-range. What causes BPPV? BPPV develops when calcium carbonate crystals, which are known as otoconia, shift into and become trapped within the semicircular canals (one of the vestibular organs of the inner ear that controls balance). The otoconia make up a normal part of the structure of the utricle, a vestibular organ next to the semicircular canals. (see illustration to the right.) In the utricle, the otoconia may be loosened as a result of injury, infection, or age, and they land in a sac -- the utricle -- where they are naturally dissolved. However, otoconia in the semicircular canals will not dissolve. As a person?s head position changes, the otoconia begin to roll around and push on the tiny hairs that line the semicircular canals. Those hairs act as sensors to give the brain information about balance. Vertigo develops when the hairs are stimulated by the rolling otoconia. What head positions trigger BPPV? Movements that can trigger an episode of BPPV include rolling over or sitting up in bed, bending the head forward to look down, or tipping the head backward. In most people, only a single ear is affected by BPPV, although both ears may be involved on occasion. How is BPPV diagnosed and treated? With advances in medical technology, BPPV can easily be diagnosed and treated. The diagnosis can usually be made in the office based on medical history and a physical exam. Treatment also involves a short, simple in-office procedure known as the particle repositioning maneuver. (See addendum below.) How can I identify the affected side? Steps to determine affected side: Sit on bed so that if you lie down, your head hangs slightly over the end of the bed. Turn head to the right and lie back quickly. Wait 1 minute. If you feel dizzy, then the right ear is your affected ear. If no dizziness occurs, sit up. Wait 1 minute. Turn head to the left and lie back quickly. Wait 1 minute. If you feel dizzy, then the left ear is your affected ear. How successful is the treatment? A single particle repositioning procedure is effective in treating about 80% to 90% of cases of BPPV. Additional exercise or repositioning maneuvers may be needed if symptoms persist. Can BPPV recur? If so, what can I do? A new episode of BPPV can develop after successful treatment -- on average there is a 15 percent rate of recurrence each year. However, it may be possible to treat recurrent BPPV at home by performing a series of movements at the time an episode occurs. Patients will receive information on ways to handle recurrences on their own or they can work with a physical therapist to develop a plan. In general, if you wake up with positional vertigo, slowly move into the [id number] position and wait for a minute. Next, slowly move into a face-down position and slide to the foot of the bed. Keep your head down until you reach the end of the bed and are kneeling or standing on the floor. Slowly bring your head backward into an upright position. Hold on to the bed at all times. Another method is to sit toward the foot of the bed, leaving enough room to lay back with your head resting comfortably at the end of the bed, slightly extended. Be careful not to overextend your neck, as this may aggravate existing neck problems. If your symptoms are severe, you may need assistance to complete the maneuver. Follow the same steps as described in the boxed instructions on the next page. Without treatment, the symptoms of BPPV may worsen. However, with time, the otoconia dissolve on their own, which is usually within 6 weeks. Until the time the otoconia dissolve on their own, the number and severity of episodes may be reduced simply by paying careful attention to head position. In addition, anti-motion sickness drugs can be given to control nausea. However, before drugs are taken, it is usually best to try the particle repositioning procedure first. It is a very safe and rapid way to relieve symptoms and reduce the chance for falls. Medications should not be taken for a long period of time. ADDENDUM Particle repositioning procedure: [id number] instructions The particle repositioning procedure takes about 15 minutes to complete and involves a series of physical movements that change the position of the head and body. These actions shift the otoconia out of the semicircular canals and back into their proper location in the utricle. The particle repositioning procedure begins with the patient is sitting up and then lying down on a treatment table. The procedure is very easy to perform. Patients should wear comfortable clothing that will allow them to move freely. Hold each of the following positions for 1 to 2 minutes. Step 1: Turn your head toward your affected ear. Step 2: Lay back quickly. Hold. Step 3: Keep your head back against the bed and turn it toward the good ear. Hold. Step 4: Roll onto your side with your good ear down. Your nose should be turned toward the floor. Hold. Step 5: Sit up, keeping your chin tucked in toward your shoulder. Hold. When you end, you should be sitting over the side of your bed so your feet touch the floor. Step 6: Follow your post-particle repositioning instructions. ? BPPV: Glossary of Terms Semicircular canals: These structures act like a gyroscope, with canals positioned in three dimensions -- upward, downward, and horizontal. Together, the canals send signals to the brain about the rotation/positioning of the head (for example, when you bend over or spin around.) Cupula: Detects the flow of fluid within the semicircular canals. The flow of fluid gives the body a sense of motion. Utricle: An organ located in the inner ear that helps control balance. The utricle contains hair cells, which are covered with otoconia. The otoconia sway with gravity, sending signals to the brain about the position of the head and body (upright, tilted, etc). Otoconia: The tiny calcium crystal particles that become dislodged from within the utricle (where they can dissolve) and move into the semicircular canals (where they can?t dissolve). Cochlea: The 'snail-shell' sense organ of the inner ear that translates sound into nerve impulses and sent to the brain. References Real BT, Kam LB. Garrett GUEVARA. Peripheral Vestibular Disorders. In: [facility], Head and Neck Surgery, 3-Volume Set. [place]; 2014. Vivienne Humphrey. Benign Paroxysmal Positional Vertigo (BPPV): History, Pathophysiology, Office Treatment and Future Directions. International Journal of Otolaryngology. 2011;2011:041889. Micheline JS, Susanne DS. Clinical practice. Benign paroxysmal positional vertigo. N Engl J Med. 2014 Feb 02;370(12):1138-47. Naveen Pereira DD, Neel Barber. The Head and Neck. In: Naveen Pereira DD, Suneja M, Szot JF. eds. DeGowin?s Diagnostic Examination, 10e. [place], [place]: [facility], [place], operated by [facility]; 2015. ?Copyright 4985-5841 The [facility]. All rights reserved This information is provided by the [facility] and is not intended to replace the medical advice of your doctor or health care provider. Please consult your health care provider for advice about a specific medical condition. For additional health information, please contact the Center for Consumer Health Information at the [facility] or toll-free extension [phone]. If you prefer, you may visit [email or web address] or [email or web address]. This document was last reviewed on: 2015 index#[id number] Prescriptions ordered this encounter Disp Refills Start End MECLIZINE 25 MG TABLET 12 t* 0 11/12/2018 Class: Print RX Route: ORAL Sig: Take 1 tablet by mouth every 6 hours as needed (dizziness). Encounter Status:Closed by KATARINA BURT CNP on 11/12/18 CNNURSE Observed: 11/01/2018 Status: COMPLETED Source: [place] 2:00 PM [facility] REPOSITORY Nurse Visit (FAMPWS) BRITNEY MARIE ([id number]) 1960 F [facility] Date Time Provider Department 11/01/18 2:00 PM IN [facility] During your visit today, we recorded the following information about you: Pulse Blood pressure 70/minute 120/68 Rosy Norton LPN 11/01/2018 2:07 PM Signed Manual Readin/68 Pulse: 70 Reason for blood pressure check - Last BP elevated and Medication adjustment Patient is: Taking medication as prescribed Yes Took medication today Yes If no, date medication last taken N/A Experiencing side effects No BP was elevated at last appt 09/23/18. Was started on Losartan 25mg daily. Tolerating medication well. Does report having problems with hot sweats more frequently. Denies any unusual chest pain, unusual shortness of breath, or dizziness. Does report headaches at least 3-4 days/wk; will treat with Advil. Daily caffeine use. Current everyday tobacco use. Alert and oriented. Pt has been identified by name and birthdate: Yes Allergies reviewed: Yes Latex allergy: no. Medication - prescribed and OTC reviewed and updated: Yes Do you need any prescription refills prior to your next visit: No Health Maintenance: Reviewed and not up to date and provider notified Patient advised to continue with current medications and would be contacted with any further instructions after review by Lynda Hunter NP. Rosy Norton LPN Referring Provider: MARE RIVER III [[id number]] Allergies As of Date: 11/01/2018 Noted Allergy Reaction LATEX 10/21/2013 2 - Rash DARVOCET A500 (PROPOXYPHENE N-CORRIE*08/05/2017 9 - Itching DARVOCET-N 100 (PROPOXYPHENE N-AC*12/11/2009 9 - Itching DILAUDID (HYDROMORPHONE HCL) 08/05/2017 14 - Other: See Comments Comments: Burning sensation over entire body EES [Other] 11/24/2005 HEPARIN ANALOGUES 06/09/2013 4 - Hives 7 - Swelling KEFLEX (CEPHALEXIN) 08/05/2017 7 - Swelling 9 - Itching 12 - Shortness of Breath LEVAQUIN (LEVOFLOXACIN) 11/10/2013 9 - Itching LISINOPRIL 01/17/2015 14 - Other: See Comments Comments: flushing OXYCODONE 08/05/2017 9 - Itching OXYCOTIN (OXYCODONE) 12/11/2009 4 - Hives 7 - Swelling 9 - Itching PENICILLIN 08/05/2017 10 - Anaphylaxis Comments: 4 years old PERCOCET (OXYCODONE-ACETAMINOPHEN)12/11/2009 9 - Itching POLYTRIM (POLYMYXIN B SULF-TRIMET*03/29/2015 7 - Swelling 9 - Itching SULFA (SULFONAMIDE ANTIBIOTICS) 11/24/2005 4 - Hives TEGRETOL (CARBAMAZEPINE) 06/04/2015 1 - Mental Status Change VIBRAMYCIN (DOXYCYCLINE CALCIUM) 08/05/2017 4 - Hives 9 - Itching VICODIN (HYDROCODONE-ACETAMINOPHE*11/24/2005 ADHESIVE TAPE (ROSINS) 03/03/2012 2 - Rash 9 - Itching Date Reviewed: 09/23/2018 Reviewed by: Bekah ([facility]) ISMAEL Senior - Fully Assessed Reason for Visit: Blood Pressure Check [195] Primary Visit Diagnosis:Essential hypertension, benign [I10] Prescriptions as of 11/01/2018 Sig: ALBUTEROL SULFATE 2.5 MG/3 ML* Use 3 mL via nebulizer every * ALBUTEROL SULFATE HFA 90 MCG/* Inhale 2 Puffs as instructed * BUPROPION HCL SR 150 MG TABLE* Take 1 tablet by mouth twice * COLESTIPOL 1 GRAM TABLET Take 2 tablets by mouth once * FLUTICASONE 200 MCG-VILANTERO* Inhale 1 Inhalation as instru* FUROSEMIDE 20 MG TABLET Take 1 tablet by mouth once d* XYZAL ORAL Take by mouth as needed. LOSARTAN 25 MG TABLET Take 1 tablet by mouth once d* METOPROLOL SUCCINATE ER 50 MG* Take 1 tablet by mouth once d* MORPHINE ER 15 MG TABLET,EXTE* Take 15 mg by mouth twice octavio* NITROGLYCERIN 0.4 MG SUBLINGU* Dissolve 1 tablet under the t* ONDANSETRON 4 MG DISINTEGRATI* Take 1 tablet by mouth every * PREGABALIN 100 MG CAPSULE Take 1 capsule by mouth three* ROSUVASTATIN 5 MG TABLET Take 1 tablet by mouth daily * SUCRALFATE 1 GRAM TABLET Take at least 30 minutes befo* COENZYME Q10 100 MG CAPSULE Take 1 capsule by mouth twice* Patient not taking: Reported on 09/08/2018 DICYCLOMINE 20 MG TABLET Take 1 tablet by mouth three * Patient not taking: Reported on 09/23/2018 LORATADINE 10 MG TABLET Take 1 tablet by mouth once d* Patient not taking: Reported on 09/08/2018 PANTOPRAZOLE 40 MG TABLET,DEL* Take 1 tablet by mouth once d* Patient not taking: Reported on 09/08/2018 Problem List As Of Date 11/01/2018 Noted Resolved Cocaine substance abuse [F14.10] 09/04/2014 Essential hypertension, benign [I10] INVALID FOR* More... Degenerative disc disease, cervical [M50.30] INVALID FOR* More... Depression [F32.9] INVALID FOR* More... Osteoporosis [M81.0] INVALID FOR* Cervical disc disorder [M50.90] INVALID FOR* Vitamin D deficiency [E55.9] INVALID FOR* Hyperlipidemia with target LDL less than 70 [E7*INVALID FOR* More... ASHD (arteriosclerotic heart disease) [I25.10] INVALID FOR* More... Chest pain [R07.9] INVALID FOR*09/04/2014 More... Tobacco abuse [Z72.0] INVALID FOR* More... Tobacco abuse counseling [Z71.6] INVALID FOR* Migraine headache [G43.909] INVALID FOR* More... SUMMARY [V999.95] INVALID FOR* More... Asthma [J45.909] INVALID FOR* More... Elevated gastrin level [E16.4] INVALID FOR* Flushing [R23.2] INVALID FOR*09/03/2018 Erosive esophagitis [K22.10] INVALID FOR* Spontaneous ecchymoses [R23.3] INVALID FOR* Lumbar back pain with radiculopathy affecting l*INVALID FOR* Arteriosclerosis of carotid artery [I65.29] INVALID FOR* MELYSSA (obstructive sleep apnea) [G47.33] INVALID FOR* Trigeminal neuralgia of right side of face [G50*INVALID FOR* Obesity (BMI 30-39.9) [E66.9] INVALID FOR* Grief [F43.21] INVALID FOR* Other seasonal allergic rhinitis [J30.2] INVALID FOR* Anxiety and depression [F41.9, F32.9] INVALID FOR* Sense of smell altered [R43.9] INVALID FOR* Nonintractable headache [R51] INVALID FOR* Non morbid obesity due to excess calories [E66.*INVALID FOR* Fibrocystic breast changes, bilateral [N60.11, *INVALID FOR* Orthostatic hypotension [I95.1] INVALID FOR* Moderate episode of recurrent major depressive *INVALID FOR* 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 RUQ pain [R10.11] INVALID FOR* More... More... 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 Was started on Losartan 25mg daily. Tolerating medication well. Does report having problems with hot sweats more frequently. Denies any unusual chest pain, unusual shortness of breath, or dizziness. Does report headaches at least 3-4 days/wk; will treat with Advil. Daily caffeine use. Current everyday tobacco use. Alert and oriented. Pt has been identified by name and birthdate: Yes Allergies reviewed: Yes Latex allergy: no. Medication - prescribed and OTC reviewed and updated: Yes Do you need any prescription refills prior to your next visit: No Health Maintenance: Reviewed and not up to date and provider notified Patient advised to continue with current medications and would be contacted with any further instructions after review by Lynda Hunter NP. Rosy Norton LPN PULMONARY VISIT REPORT Observed: 09/23/2018 Status: F Source: [place] 5:29 PM [facility] REPOSITORY Pulmonary Medicine of [address] [place] [address] OFFICE VISIT Date of Service: 09/23/18 MR#: [id number] Acct: [id number] Name: CYNTHIABRITNEY J Rep #: [id number] : 1960 Provider: Kuamr Manzanares MD Age/Sex: 57/F [place] [facility] [place] Status: Signed Assessment AND Plan 1. Moderate persistent asthma without complication J45.40 Plan Pulmonary function testing confirms patient's diagnosis of asthma. Despite prolonged smoking history, patient does not have a pattern consistent with COPD at this time. Patient has had good response to Breo in the past, but Advair is covered by her insurance. Patient will be given a prescription for Advair, but 2 samples of Breo were given to the patient so this can be started immediately. Signs and symptoms of exacerbation and sick policy were reviewed in detail. Initiate Advair therapy. Call with signs or symptoms of exacerbation 2. MELYSSA (obstructive sleep apnea) G47.33 Plan Patient continues to report apneic type episodes. Patient has been diagnosed with MELYSSA in the past, but states during her sleep study she slept on 3 pillows. Patient thinks this is what led to her not being able to qualify for BiPAP therapy. Patient states that she does not want to use 3 pillows at home, but that was her routine so that when she used that the sleep study. After review of the risks, benefits alternatives, patient will be restarted on split-night study. Obtain split-night study Orders Orders: 3. Tobacco abuse Z72.0 Plan Mare discussion with patient about the role of tobacco and exacerbating of asthma. Patient has quit with the use of nicotine patches in the past. Patient states that she feels that she is using tobacco more for stress. Patient has agreed to attempt cessation by next visit. Patient does have nicotine replacement at home. Total discussion time of 5 minutes Encourage smoking cessation Plan Detail Other Medications New: albuterol sulfate HFA 90 mcg/actuation (Vento2 puffs Inhalation Q6H PRN 18 grams 3RF shor elpidio HFA) tness of breath or wheezing HPI 3 M FU: Chief Complaint: Chronic cough Details: Patient is a 57-year-old female, currently under the care of Dr. River, who presents for evaluation secondary to chronic cough and recent testing. Since last visit, patient reports that she is moved back into her home. Patient states that it is currently filled with dog dander and she believes this is leading to increased shortness of breath and cough. Patient is in the process of currently cleaning up all of the hair and dander. Patient denies any ER visits, hospitalizations or prednisone burst. Patient has not been using any inhalers secondary to a lack of prescription. Patient states she has been using some Xyzal with good response. Patient is having significant sinus drainage. Patient has not used any steroids nasally. Patient is currently off of medications for her breathing. Patient states she thought the Brio worked well, but has been out of it for quite some time. Patient does use albuterol intermittently with good response. Patient reports that she quit smoking for approximately 1 month after her last visit. However, secondary to stress patient has reinitiated smoking. Patient states she is only smoking 4 cigarettes/day. Patient reports some difficulty at her sleep study. Patient was placed on 3 pillows and was never initiated on CPAP therapy. Patient reports she continues to wake up at night gasping for air. Patient states her family is told her witnessed apneas. Testing personally reviewed with the patient Complete PFT (06/29/2018): Possible small airways stigmata with significant bronchodilator response and mild degree of air trapping (FVC 92%, FEV1 84%, TLC 115%, RV 141%, DLCO 74%) Walking oximetry (07/01/2018): Ambulated 1052 feet over the course of 6 minutes with an oxygen norbert of 93% and significant tachycardia throughout testing PSG (06/16/2018): Overall AHI of 4.1 events per hour. Patient did have brief desaturation less than 88% with no obstructive events. 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 Accompanied by: Self Is patient in pain?: Yes Allergies acetaminophen Allergy (Severe, Verified 09/23/18 13:32) Hives hydrocodone bitartrate [From Vicodin] Allergy (Severe, Verified 09/23/18 13:32) Hives hydromorphone HCl [From Dilaudid] Allergy (Severe, Verified 09/23/18 13:32) Hives, feels like on fire Penicillins Allergy (Severe, Verified 09/23/18 13:32) Anaphylaxis propoxyphene napsylate [From Darvocet-N 100] Allergy (Severe, Verified 09/23/18 13:32) Hives Sulfa (Sulfonamide Antibiotics) Allergy (Severe, Verified 09/23/18 13:32) Hives adhesive Allergy (Verified 09/23/18 13:32) Rash cephalexin monohydrate [From Keflex] Allergy (Verified 09/23/18 13:32) Rash Heparin Analogues Allergy (Verified 09/23/18 13:32) severe bruising and rash latex Allergy (Verified 09/23/18 13:32) Rash levofloxacin [From Levaquin] Allergy (Verified 09/23/18 13:32) Swelling, rash oxycodone HCl [From Percocet] Allergy (Verified 09/23/18 13:32) Hives oxytocin Allergy (Verified 09/23/18 13:32) Hives Medications Albuterol Inhaler [Ventolin Hfa (SP)] 2 puff INHALATION Q6H PRN PRN 02/05/17 [History Confirmed 09/23/18] Alendronate Sodium [Fosamax] 70 mg PO Q7D@0700 02/05/17 [History Confirmed 09/23/18] Atorvastatin Calcium [Lipitor] 80 mg PO QHS 02/05/17 [History Confirmed 09/23/18] HydrOXYzine [Atarax] 25 mg PO TID PRN PRN 02/05/17 [History Confirmed 09/23/18] Morphine [Morphine IR] 15 mg PO BID PRN 02/05/17 [History Confirmed 09/23/18] Nitroglycerin 0.4 mg SL PRN PRN 02/05/17 [History Confirmed 09/23/18] Pantoprazole Sodium [Protonix] 40 mg PO DAILY 02/05/17 [History Confirmed 09/23/18] proMETHazine tablet [Phenergan] 25 mg PO Q6H PRN PRN 02/05/17 [History Confirmed 09/23/18] Fluticasone/Vilanterol [Breo Ellipta 200-25 Mcg INH] 1 ea IH DAILY 01/15/18 [History Confirmed 09/23/18] Hydrochlorothiazide [Hctz] 12.5 mg PO DAILY 01/15/18 [History Confirmed 09/23/18] Loratadine 10 mg PO DAILY 01/15/18 [History Confirmed 09/23/18] Pregabalin [Lyrica] 100 mg PO TID 01/15/18 [History Confirmed 09/23/18] albuterol sulfate HFA 90 mcg/actuation aerosol inhaler 2 puff INHALATION Q6H PRN #18 g 09/23/18 [Rx Confirmed 09/23/18] fluticasone 232 mcg-salmeterol 14 mcg/actuation breath activated powdr 1 puff INHALATION Q12H #1 ea 09/23/18 [Rx Confirmed 09/23/18] losartan 25 mg tablet 25 mg PO DAILY 09/23/18 [History Confirmed 09/23/18] [facility] Medical History Trigeminal neuralgia (Chronic) Hypertension (Chronic) Esophageal reflux (Chronic) Dysmetabolic syndrome (Chronic) DDD (degenerative disc disease), cervical (Chronic) Cocaine substance abuse (Chronic) Migraine (Chronic) Benign essential hypertension (Chronic) Depression (Chronic) Type 2 diabetes mellitus (Chronic) Hyperlipidemia (Chronic) Smoker (Chronic) DJD (degenerative joint disease) (Chronic) TIA (transient ischemic attack) (Acute) Asthma (Chronic) Chronic obstructive lung disease (Ruled-out) Surgical History History of left heart catheterization (Resolved) History of tubal ligation (Resolved) History of appendectomy (Resolved) History of cholecystectomy (Resolved) Family History Mother Cancer Father Cancer Sister Cancer Social History Smoking Status: Current every day smoker second hand exposure: Yes alcohol intake: never substance use type: does not use caffeine: Yes what type of physical activity do you participate in: none Review of Systems Const CONSTITUTIONAL: Positive fatigue; negative anorexia, body ache, chills, daytime sleepiness, fever(s), night sweats, oral thrush, stops breathing during sleep, weight loss, sleeping in chair, weight loss, weight gain, frequent colds, seasonal allergies, other, headache(s) or orthopnea EETM Ear Nose Throat Mouth: Positive hearing normal; negative hard of hearing, hoarseness, dry mouth in morning, change in vision, itchy eyes, eye pain, swallowing Difficulty, ear pain, nose bleed, headache(s), mouth pain, nasal congestion, nasal discharge, post nasal drip, sinus pain, sinus pressure, sore throat or other Cardio Cardiovascular: Negative chest pain, chest pain at rest, chest pain with activity, irregular heart rhythm, edema, shortness of breath when lying down, palpitations, murmur or other Resp Respiratory: Positive as per HPI; negative shortness of breath, pain with cough, wheezing, chest congestion, cough, chest tightness, pain on inspiration, inhalers, increase use of rescue inhalers, snoring, apnea or other Gastro Gastrointestional: Negative bloody stools, change in appetite, difficulty swallowing, reflux, hematemesis, melena stool, loose stool, constipation or other Genitourinary: Negative blood in urine, nocturia, pain with urination or other Musc Musculoskeletal: Negative body pain, back pain, neck pain or other Skin/Breast Skin/Breast: Negative dry skin, itching, rash, unusual bruising, breast lump or other Neuro Neurological: Negative restless legs, confusion, weakness or other Psych Psychocological: Negative abnormal sleep pattern, anxiety, thoughts of hurting self/others, hopelessness or other Lymph Lymphatic: Negative easy bleeding, easy bruising, swollen lymph nodes or other Exam Const Constitutional: Positive conversant, cooperative, in no acute respiratory distress, healthy appearing, well developed, well nourished, good hygiene and appears older than stated age; negative wearing supplemental oxygen or ill appearing Head Head: Positive normocephalic and atraumatic; negative cyanosis of lips/distal nose, frontal sinus tenderness or maxillary sinus tenderness Eyes Eye: Positive clear conjunctiva; negative nystagmus, scleral abnormality or cataract present Ears Ear: Positive hearing normal and external ears normal; negative hard of hearing Nose Nose: Positive external nose normal, septum normal and clear nasal discharge; negative epistaxis or nasal polyp Mouth Mouth: Positive oral mucosae normal, no lesions and crowded posterior oropharynx; negative post nasal drip, malodorous breath or oral thrush present Mallampati Score: III: Mallampati Score Neck Neck: Positive normal visual inspection, full ROM, trachea midline and female neck greater than 37 cm (15 in); negative lymphadenopathy or JVD Chest Wall Chest: Positive normal inspection of the chest and symmetric chest movement; negative crepitus or tenderness Resp lung sounds: Positive wheeze present on forced exhalation, diminished and prolonged expiratory time; negative wheezes, rhonchi, rales, use of accessory muscles or dullness to percussion Cardio Cardiac: Positive regular rate, regular rhythm, S1 normal and S2 normal; negative murmur, rub or gallop GI GI: Positive normal to inspection and normal bowel sounds; negative distended, ascites or epigastric tenderness Genitourinary: Positive deferred Musc Musculoskeletal: Positive steady gait; negative using an assistive device for ambulation, kyphosis or scoliosis Skin Pulmonary Skin Exam: Positive intact; negative rash, lesion, ulcers, erythema or dermal atrophy Pulses Pulse: Yes radial pulses present Extremities Extremities: Yes capillary refill normal, No clubbing, No cyanosis, No edema Neuro Neurologic: Yes conversant, Yes no focal neuro deficits, Yes normal coordination, Yes normal concentration, Yes cooperative, Yes normal cognition, Yes understands questions Lymph Lymphatic: No lymphadenopathy Psych Appearance: Positive grossly normal Mental Status: Positive mental status grossly normal Mood: Positive congruent mood Affect: Positive normal affect Pulmonary Procedure Smoking Cessation Education: Yes education provided, 3-10 minutes, expresses understanding, continue to encourage smoking cessation and needs reinforcement Coding Level of Care Code Off vis,est,level 4 Diagnoses Moderate persistent asthma without complication J45.40 Asthma complication type: uncomplicated Asthma persistence: persistent Asthma severity: moderate MELYSSA (obstructive sleep apnea) G47.33 Tobacco abuse Z72.0 09/23/18 1729 <Electronically signed by Kumar Manzanares MD> Date Kumar Manzanares MD Cosigner Signature: Date (if applicable) CC: Mare River III, MD PROGRESS Observed: 09/23/2018 Status: COMPLETED Source: [place] 11:09 AM [facility] REPOSITORY HNO ID: [id number] Author: Mare River III Service: (none) Author Type: Physician Type: Progress Notes Filed: 09/23/2018 1:13 PM Note Text: SUBJECTIVE: This is a 57 year old female that is here today for ch constipation. One yr ago developed RUQ pain and swelling.. Continues to have episodic swelling and pain RUQ, worse after eating. Pain starts 20 min after eating anything. Seen by Dr Zuñiga and prescribed bentyl. US and MRI liver reviewed and explained to patient and friend as below: EGD results reviewed: bile gastritis. ------ IMPRESSION: The study is limited because the most inferior right lobe of the liver and the lower pole of both kidneys are not included on this examination. Extensive steatosis of the liver with focal 1 cm advanced steatosis in the medial segment of the left lobe of the liver inferiorly adjacent to the proximal ligament. 4 mm right hepatic cyst. Electrical Test Technician: PSCB ? Transcribe Date/Time: Jul 30 2018 ?3:25P Dictated by : MORENO LEVINE MD This examination was interpreted and the report reviewed and electronically signed by: MORENO LEVINE MD on Jul 30 2018 ?3:55PM ?EST Results-Findings * * *Final Report* * * DATE OF EXAM: Jul 30 2018 ?2:45PM ? [facility] ? 0727 ?- ?MRI LIVER WO/W IVCON ?/ PROCEDURE REASON: Right upper quadrant pain ?? ? * * * * Physician Interpretation * * * * ?HISTORY: ?Right upper quadrant abdominal pain MRI OF THE LIVER/MRI ABDOMEN: TECHNIQUE: MR imaging of the liver is performed in coronal plane using HASTE, and axial plane using axial diffusion-weighted, fast spin double echo T2 weighted, STIR, in and out of phase T1 weighted pulse sequences and VIBE. ?Following the intravenous administration of 20 cc Dotarem gadolinium contrast, serial imaging of the liver is performed at zero, 45 seconds, 2 minutes and 15 minutes using VIBE pulse sequences. RESULT: The study is limited because the most inferior right lobe of the liver and the lower pole of both kidneys are not included on this examination. Liver: Extensive steatosis of liver. ?Geographic areas of normal sparing liver, predominantly in the medial segment of the left lobe posteriorly and adjacent to the gallbladder fossa. 1 cm focal area of advanced steatosis with significant signal dropout in the medial segment of the left lobe adjacent to the falciform ligament, series 4:6. 4 mm T2-weighted hyperintense nonenhancing cyst in the posterior right lobe of the liver. Pancreas: The pancreas shows normal appearance without evidence of mass lesion or other significant abnormality. ?No MR evidence of acute pancreatitis. Biliary system: Cholecystectomy. ?No intrahepatic or extrahepatic biliary dilatation. Spleen: No discrete mass or splenomegaly. Adrenal glands: No adrenal nodule or mass. Kidneys:. ?No cysts or enhancing soft tissue mass. ?No hydronephrosis is seen. No ascites, adenopathy by size criteria. No portal venous thrombosis or other obvious venous thrombosis is noted in the visualized abdomen. No abdominal aortic aneurysm. ?No significant stenosis at the visualized celiac artery or superior mesentery artery. The visualized bowel loops show no obvious abnormality. 08/30/2018 ?6:02 PM - Interface, Results II Results Specimen originated from [facility] Specimen #: [id number] Submitting Physician: ALEXUS WEBSTER MD FINAL DIAGNOSIS Liver, biopsy ?Severe steatosis without fibrosis. - See comment. TP/glw 08/30/2018 COMMENT The lobular architecture is intact. The portal tracts harbor their usual structures with intact intralobular bile ducts and portal vasculature. There is no significant portal inflammation. The lobules demonstrate severe steatosis (70%) without any definitive ballooned hepatocytes. No Litzy hyaline deposition is seen. ?The lobules demonstrate mild inflammation. Central veins are patent and uninflamed. There is no cholestasis or granulomatous inflammation. PAS after diastase shows no alpha-1 antitrypsin inclusions. Trichrome stain highlights no fibrosis. Iron stain is negative for stainable iron. ?Trichrome highlights no definite fibrosis. NAFLD Activity Score (JEMIMA): Steatosis: 3 (>66%) Lobular inflammation (foci per 20x field): 1(<2) Hepatocyte balloonin (none), Total Score: 4/8. Stage: 0 (none) Other features: None Litzy hyaline: Negative Other forms of chronic liver disease: None Reference: Lyn BALL, Tsering EM, et al. Hepatology 41(6):1313- 21, 2005. PAST MEDICAL HISTORY Diagnosis Date - ASHD (arteriosclerotic heart disease) 10/14/2011 - Bandemia 01/29/2018 - Cervical disc disorder at C4-C5 level with radiculopathy - Cocaine substance abuse ([facility]) 2003 - COPD (chronic obstructive pulmonary disease) ([facility]) - Degenerative disc disease, cervical 2010 - Depression 2010 - Dysmetabolic syndrome X 01/21/2011 - Dyspnea on exertion - Erosive esophagitis 09/04/2014 - Esophageal reflux Gastroesophageal reflux - Essential hypertension, benign 09/09/2010 no meds currently 03/26 - Fibrocystic breast changes, bilateral 01/28/2017 - Hyperlipidemia LDL goal < 70 10/14/2011 - Migraine headache 01/23/2012 - Myalgia - Nodule of right lung 03/02/2018 02/09/18: 5 mm to recheck in 1 yr - Non morbid obesity due to excess calories 08/29/2016 - Obstructive sleep apnea - Osteoporosis 03/13/2011 - Other cervical disc displacement at C4-C5 level - Other intervertebral disc displacement, lumbar region - Other muscle spasm - Other specified dorsopathies, lumbosacral region - Peptic ulcer, unspecified site, unspecified as acute or chronic, without mention of hemorrhage, perforation, or obstruction Peptic ulcer disease - Spinal stenosis, cervical region - Spondylosis without myelopathy or radiculopathy, cervical region - Steatosis of liver 07/30/2018 - Tobacco abuse 01/23/2012 - Trigeminal neuralgia 12/29/2013 - Type 2 diabetes mellitus ([facility]) 07/15/2018 - Vitamin D deficiency 03/19/2011 Current Outpatient Prescriptions on File Prior to Visit: rosuvastatin (CRESTOR) 5 mg tablet Take 1 tablet by mouth daily at bedtime. metoprolol succinate ER (TOPROL XL) 50 mg 24 hr tablet Take 1 tablet by mouth once daily. furosemide (LASIX) 20 mg tablet Take 1 tablet by mouth once daily. levocetirizine dihydrochloride (XYZAL ORAL) Take by mouth as needed. morphine SR (MS CONTIN, ORAMORPH SR) 15 mg 12 hr tablet Take 15 mg by mouth twice daily. sucralfate (CARAFATE) 1 gram tablet Take at least 30 minutes before eating, and again before bed, if needed. colestipol (COLESTID) 1 gram tablet Take 2 tablets by mouth once daily. ondansetron orally disintegrating (ZOFRAN ODT) 4 mg disintegrating tablet Take 1 tablet by mouth every 6 hours as needed for Nausea/Vomiting. buPROPion SR (WELLBUTRIN SR) 150 mg 12 hr tablet Take 1 tablet by mouth twice daily. fluticasone-vilanterol (BREO ELLIPTA) 200-25 mcg/dose inhaler Inhale 1 Inhalation as instructed once daily. Inhale one puff once daily. DO NOT CLICK OPEN UNTIL READY FOR DOSE albuterol (PROVENTIL) 2.5 mg /3 mL (0.083 %) nebulizer solution Use 3 mL via nebulizer every 4 hours as needed for Wheezing/Shortness of Breath. Use over 5-15minutes. albuterol HFA (VENTOLIN HFA) 90 mcg/actuation inhaler Inhale 2 Puffs as instructed every 4 hours as needed for Wheezing/Shortness of Breath. nitroglycerin sublingual (NITROQUICK) 0.4 mg SL tablet Dissolve 1 tablet under the tongue as needed. FOR CHEST PAIN. IF NO RELIEF CALL 911 pregabalin (LYRICA) 100 mg capsule Take 1 capsule by mouth three times daily. dicyclomine (BENTYL) 20 mg tablet Take 1 tablet by mouth three times daily before meals. (Patient not taking: Reported on 09/23/2018 ) coenzyme Q10 (COQ-10) 100 mg cap capsule Take 1 capsule by mouth twice daily. (Patient not taking: Reported on 09/08/2018 ) loratadine (CLARITIN) 10 mg tablet Take 1 tablet by mouth once daily. (Patient not taking: Reported on 09/08/2018 ) pantoprazole DR (PROTONIX) 40 mg tablet Take 1 tablet by mouth once daily. (Patient not taking: Reported on 09/08/2018 ) No current facility-administered medications on file prior to visit. FAMILY HISTORY Problem Relation Age of Onset - Heart Father 35 - Cancer Father - Cancer Mother - Breast Cancer Paternal Grandmother - Breast Cancer Paternal Aunt - Cancer Maternal Uncle LUNG - Heart Maternal Grandmother Social History Substance Use Topics - Smoking status: Current Every Day Smoker Packs/day: 0.25 Years: 45.00 Types: Cigarettes - Smokeless tobacco: Never Used Comment: trying to quit - Alcohol use No BP 180/102 Pulse 91 Resp 18 Wt 84.4 kg (186 lb) BMI 34.02 kg/m? . OBJECTIVE: APPEARANCE Well appearing, alert, in no acute distress, well-hydrated, well nourished. and Obese ABDOMEN bowel sounds normoactive, no bruits, soft, non-distended, without organomegaly or palpable masses, tenderness RUQ w/o mass or organomegaly ASSESSMENT: bile gastritis prandial vagal nerve stimulation causing pain/bloating RUQ? hypertension--poor control severe liver steatosis with mild inflammation PLAN: take the carafate 1 gram four times/day add losartan 25mg daily--nurse bp check in 2 wks same other medications diet as tolerated I will work on second opinion for hepatology ARBEN Lantigua MD, III MD CNOV Observed: 09/23/2018 Status: COMPLETED Source: [place] 10:40 AM [facility] REPOSITORY Office Visit ([facility]) BRITNEY MARIE ([id number]) 1960 F T Date Time Provider Department 09/23/18 10:40 AM MARE RIVER III During your visit today, we recorded the following information about you: Pulse Respiration Blood pressure Weight 91/minute 18/minute 180/102 84.4 kg Mare River III MD 09/23/2018 1:13 PM Signed SUBJECTIVE: This is a 57 year old female that is here today for ch constipation. One yr ago developed RUQ pain and swelling.. Continues to have episodic swelling and pain RUQ, worse after eating. Pain starts 20 min after eating anything. Seen by Dr Zuñiga and prescribed bentyl. US and MRI liver reviewed and explained to patient and friend as below: EGD results reviewed: bile gastritis. -- IMPRESSION: The study is limited because the most inferior right lobe of the liver and the lower pole of both kidneys are not included on this examination. Extensive steatosis of the liver with focal 1 cm advanced steatosis in the medial segment of the left lobe of the liver inferiorly adjacent to the proximal ligament. 4 mm right hepatic cyst. Electrical Test Technician: RICKI ? Transcribe Date/Time: Jul 30 2018 ?3:25P Dictated by : MORENO LEVINE MD This examination was interpreted and the report reviewed and electronically signed by: MORENO LEVINE MD on Jul 30 2018 ?3:55PM ?EST Results-Findings * * *Final Report* * * DATE OF EXAM: Jul 30 2018 ?2:45PM ? [facility] ? 0727 ?- ?MRI LIVER WO/W IVCON ?/ PROCEDURE REASON: Right upper quadrant pain ?? ? * * * * Physician Interpretation * * * * ?HISTORY: ?Right upper quadrant abdominal pain MRI OF THE LIVER/MRI ABDOMEN: TECHNIQUE: MR imaging of the liver is performed in coronal plane using HASTE, and axial plane using axial diffusion-weighted, fast spin double echo T2 weighted, STIR, in and out of phase T1 weighted pulse sequences and VIBE. ?Following the intravenous administration of 20 cc Dotarem gadolinium contrast, serial imaging of the liver is performed at zero, 45 seconds, 2 minutes and 15 minutes using VIBE pulse sequences. RESULT: The study is limited because the most inferior right lobe of the liver and the lower pole of both kidneys are not included on this examination. Liver: Extensive steatosis of liver. ?Geographic areas of normal sparing liver, predominantly in the medial segment of the left lobe posteriorly and adjacent to the gallbladder fossa. 1 cm focal area of advanced steatosis with significant signal dropout in the medial segment of the left lobe adjacent to the falciform ligament, series 4:6. 4 mm T2-weighted hyperintense nonenhancing cyst in the posterior right lobe of the liver. Pancreas: The pancreas shows normal appearance without evidence of mass lesion or other significant abnormality. ?No MR evidence of acute pancreatitis. Biliary system: Cholecystectomy. ?No intrahepatic or extrahepatic biliary dilatation. Spleen: No discrete mass or splenomegaly. Adrenal glands: No adrenal nodule or mass. Kidneys:. ?No cysts or enhancing soft tissue mass. ?No hydronephrosis is seen. No ascites, adenopathy by size criteria. No portal venous thrombosis or other obvious venous thrombosis is noted in the visualized abdomen. No abdominal aortic aneurysm. ?No significant stenosis at the visualized celiac artery or superior mesentery artery. The visualized bowel loops show no obvious abnormality. 08/30/2018 ?6:02 PM - Interface, Results II Results Specimen originated from [facility] Specimen #: [id number] Submitting Physician: ALEXUS WEBSTER MD FINAL DIAGNOSIS Liver, biopsy ?Severe steatosis without fibrosis. - See comment. TP/glw 08/30/2018 COMMENT The lobular architecture is intact. The portal tracts harbor their usual structures with intact intralobular bile ducts and portal vasculature. There is no significant portal inflammation. The lobules demonstrate severe steatosis (70%) without any definitive ballooned hepatocytes. No Litzy hyaline deposition is seen. ?The lobules demonstrate mild inflammation. Central veins are patent and uninflamed. There is no cholestasis or granulomatous inflammation. PAS after diastase shows no alpha- 1 antitrypsin inclusions. Trichrome stain highlights no fibrosis. Iron stain is negative for stainable iron. ?Trichrome highlights no definite fibrosis. NAFLD Activity Score (JEMIMA): Steatosis: 3 (>66%) Lobular inflammation (foci per 20x field): 1(<2) Hepatocyte balloonin (none), Total Score: 4/8. Stage: 0 (none) Other features: None Litzy hyaline: Negative Other forms of chronic liver disease: None Reference: Tsering Eagn EM, et al. Hepatology 41(6):1313- 21, 2005. PAST MEDICAL HISTORY Diagnosis Date - ASHD (arteriosclerotic heart disease) 10/14/2011 - Bandemia 01/29/2018 - Cervical disc disorder at C4-C5 level with radiculopathy - Cocaine substance abuse (HCC) 2003 - COPD (chronic obstructive pulmonary disease) (HCC) - Degenerative disc disease, cervical 2010 - Depression 2010 - Dysmetabolic syndrome X 01/21/2011 - Dyspnea on exertion - Erosive esophagitis 09/04/2014 - Esophageal reflux Gastroesophageal reflux - Essential hypertension, benign 09/09/2010 no meds currently 03/26 - Fibrocystic breast changes, bilateral 01/28/2017 - Hyperlipidemia LDL goal < 70 10/14/2011 - Migraine headache 01/23/2012 - Myalgia - Nodule of right lung 03/02/2018 02/09/18: 5 mm to recheck in 1 yr - Non morbid obesity due to excess calories 08/29/2016 - Obstructive sleep apnea - Osteoporosis 03/13/2011 - Other cervical disc displacement at C4-C5 level - Other intervertebral disc displacement, lumbar region - Other muscle spasm - Other specified dorsopathies, lumbosacral region - Peptic ulcer, unspecified site, unspecified as acute or chronic, without mention of hemorrhage, perforation, or obstruction Peptic ulcer disease - Spinal stenosis, cervical region - Spondylosis without myelopathy or radiculopathy, cervical region - Steatosis of liver 07/30/2018 - Tobacco abuse 01/23/2012 - Trigeminal neuralgia 12/29/2013 - Type 2 diabetes mellitus (HCC) 07/15/2018 - Vitamin D deficiency 03/19/2011 Current Outpatient Prescriptions on File Prior to Visit: rosuvastatin (CRESTOR) 5 mg tablet Take 1 tablet by mouth daily at bedtime. metoprolol succinate ER (TOPROL XL) 50 mg 24 hr tablet Take 1 tablet by mouth once daily. furosemide (LASIX) 20 mg tablet Take 1 tablet by mouth once daily. levocetirizine dihydrochloride (XYZAL ORAL) Take by mouth as needed. morphine SR (MS CONTIN, ORAMORPH SR) 15 mg 12 hr tablet Take 15 mg by mouth twice daily. sucralfate (CARAFATE) 1 gram tablet Take at least 30 minutes before eating, and again before bed, if needed. colestipol (COLESTID) 1 gram tablet Take 2 tablets by mouth once daily. ondansetron orally disintegrating (ZOFRAN ODT) 4 mg disintegrating tablet Take 1 tablet by mouth every 6 hours as needed for Nausea/Vomiting. buPROPion SR (WELLBUTRIN SR) 150 mg 12 hr tablet Take 1 tablet by mouth twice daily. fluticasone-vilanterol (BREO ELLIPTA) 200-25 mcg/dose inhaler Inhale 1 Inhalation as instructed once daily. Inhale one puff once daily. DO NOT CLICK OPEN UNTIL READY FOR DOSE albuterol (PROVENTIL) 2.5 mg /3 mL (0.083 %) nebulizer solution Use 3 mL via nebulizer every 4 hours as needed for Wheezing/Shortness of Breath. Use over 5-15minutes. albuterol HFA (VENTOLIN HFA) 90 mcg/actuation inhaler Inhale 2 Puffs as instructed every 4 hours as needed for Wheezing/Shortness of Breath. nitroglycerin sublingual (NITROQUICK) 0.4 mg SL tablet Dissolve 1 tablet under the tongue as needed. FOR CHEST PAIN. IF NO RELIEF CALL 911 pregabalin (LYRICA) 100 mg capsule Take 1 capsule by mouth three times daily. dicyclomine (BENTYL) 20 mg tablet Take 1 tablet by mouth three times daily before meals. (Patient not taking: Reported on 09/23/2018 ) coenzyme Q10 (COQ-10) 100 mg cap capsule Take 1 capsule by mouth twice daily. (Patient not taking: Reported on 09/08/2018 ) loratadine (CLARITIN) 10 mg tablet Take 1 tablet by mouth once daily. (Patient not taking: Reported on 09/08/2018 ) pantoprazole DR (PROTONIX) 40 mg tablet Take 1 tablet by mouth once daily. (Patient not taking: Reported on 09/08/2018 ) No current facility-administered medications on file prior to visit. FAMILY HISTORY Problem Relation Age of Onset - Heart Father 35 - Cancer Father - Cancer Mother - Breast Cancer Paternal Grandmother - Breast Cancer Paternal Aunt - Cancer Maternal Uncle LUNG - Heart Maternal Grandmother Social History Substance Use Topics - Smoking status: Current Every Day Smoker Packs/day: 0.25 Years: 45.00 Types: Cigarettes - Smokeless tobacco: Never Used Comment: trying to quit - Alcohol use No BP 180/102 Pulse 91 Resp 18 Wt 84.4 kg (186 lb) BMI 34.02 kg/m? . OBJECTIVE: APPEARANCE Well appearing, alert, in no acute distress, well- hydrated, well nourished. and Obese ABDOMEN bowel sounds normoactive, no bruits, soft, non-distended, without organomegaly or palpable masses, tenderness RUQ w/o mass or organomegaly ASSESSMENT: bile gastritis prandial vagal nerve stimulation causing pain/bloating RUQ? hypertension--poor control severe liver steatosis with mild inflammation PLAN: take the carafate 1 gram four times/day add losartan 25mg daily--nurse bp check in 2 wks same other medications diet as tolerated I will work on second opinion for hepatology ARBEN Lantigua MD, III MD Frank A Cebul, III MD 09/23/2018 11:49 AM Signed PLAN: take the carafate 1 gram four times/day add losartan 25mg daily--nurse bp check in 2 wks same other medications diet as tolerated I will work on second opinion for hepatology Mare River III MD Referring Provider: SELF [[id number]] Allergies As of Date: 09/23/2018 Noted Allergy Reaction LATEX 10/21/2013 2 - Rash DARVOCET A500 (PROPOXYPHENE N-CORRIE*08/05/2017 9 - Itching DARVOCET-N 100 (PROPOXYPHENE N-AC*12/11/2009 9 - Itching DILAUDID (HYDROMORPHONE HCL) 08/05/2017 14 - Other: See Comments Comments: Burning sensation over entire body EES [Other] 11/24/2005 HEPARIN ANALOGUES 06/09/2013 4 - Hives 7 - Swelling KEFLEX (CEPHALEXIN) 08/05/2017 7 - Swelling 9 - Itching 12 - Shortness of Breath LEVAQUIN (LEVOFLOXACIN) 11/10/2013 9 - Itching LISINOPRIL 01/17/2015 14 - Other: See Comments Comments: flushing OXYCODONE 08/05/2017 9 - Itching OXYCOTIN (OXYCODONE) 12/11/2009 4 - Hives 7 - Swelling 9 - Itching PENICILLIN 08/05/2017 10 - Anaphylaxis Comments: 4 years old PERCOCET (OXYCODONE-ACETAMINOPHEN)12/11/2009 9 - Itching POLYTRIM (POLYMYXIN B SULF-TRIMET*03/29/2015 7 - Swelling 9 - Itching SULFA (SULFONAMIDE ANTIBIOTICS) 11/24/2005 4 - Hives TEGRETOL (CARBAMAZEPINE) 06/04/2015 1 - Mental Status Change VIBRAMYCIN (DOXYCYCLINE CALCIUM) 08/05/2017 4 - Hives 9 - Itching VICODIN (HYDROCODONE-ACETAMINOPHE*11/24/2005 ADHESIVE TAPE (ROSINS) 03/03/2012 2 - Rash 9 - Itching Date Reviewed: 09/23/2018 Reviewed by: Bekah ([facility]) ISMAEL Senior - Fully Assessed Reason for Visit: Discuss gastro issues [Other] Primary Visit Diagnosis:Steatosis of liver [K76.0] Other Visit Diagnoses:Essential hypertension, benign [I10] Fatty liver disease, nonalcoholic [K76.0] Bile reflux gastritis [K29.60] Order(s):losartan (COZAAR) 25 mg tabletTake 1 tablet by mouth once daily.Disp: 30 tabletRfl: 11 CONSULT TO HEPATOLOGY [[id number]] Order #: [id number]: 1 Prescriptions as of 09/23/2018 Sig: ROSUVASTATIN 5 MG TABLET Take 1 tablet by mouth daily * METOPROLOL SUCCINATE ER 50 MG* Take 1 tablet by mouth once d* FUROSEMIDE 20 MG TABLET Take 1 tablet by mouth once d* XYZAL ORAL Take by mouth as needed. MORPHINE ER 15 MG TABLET,EXTE* Take 15 mg by mouth twice octavio* SUCRALFATE 1 GRAM TABLET Take at least 30 minutes befo* COLESTIPOL 1 GRAM TABLET Take 2 tablets by mouth once * ONDANSETRON 4 MG DISINTEGRATI* Take 1 tablet by mouth every * BUPROPION HCL SR 150 MG TABLE* Take 1 tablet by mouth twice * FLUTICASONE 200 MCG-VILANTERO* Inhale 1 Inhalation as instru* ALBUTEROL SULFATE 2.5 MG/3 ML* Use 3 mL via nebulizer every * ALBUTEROL SULFATE HFA 90 MCG/* Inhale 2 Puffs as instructed * NITROGLYCERIN 0.4 MG SUBLINGU* Dissolve 1 tablet under the t* PREGABALIN 100 MG CAPSULE Take 1 capsule by mouth three* LOSARTAN 25 MG TABLET Take 1 tablet by mouth once d* DICYCLOMINE 20 MG TABLET Take 1 tablet by mouth three * Patient not taking: Reported on 09/23/2018 COENZYME Q10 100 MG CAPSULE Take 1 capsule by mouth twice* Patient not taking: Reported on 09/08/2018 LORATADINE 10 MG TABLET Take 1 tablet by mouth once d* Patient not taking: Reported on 09/08/2018 PANTOPRAZOLE 40 MG TABLET,DEL* Take 1 tablet by mouth once d* Patient not taking: Reported on 09/08/2018 Problem List As Of Date 09/23/2018 Noted Resolved Cocaine substance abuse [F14.10] 09/04/2014 Essential hypertension, benign [I10] INVALID FOR* Priority: F More... Degenerative disc disease, cervical [M50.30] INVALID FOR* Priority: D More... Depression [F32.9] INVALID FOR* Priority: E More... Osteoporosis [M81.0] INVALID FOR* Cervical disc disorder [M50.90] INVALID FOR* Vitamin D deficiency [E55.9] INVALID FOR* Hyperlipidemia with target LDL less than 70 [E7*INVALID FOR* Priority: G More... ASHD (arteriosclerotic heart disease) [I25.10] INVALID FOR* More... Chest pain [R07.9] INVALID FOR*09/04/2014 Priority: B More... Tobacco abuse [Z72.0] INVALID FOR* Priority: I More... Tobacco abuse counseling [Z71.6] INVALID FOR* Migraine headache [G43.909] INVALID FOR* Priority: H More... SUMMARY [V999.95] INVALID FOR* Priority: A More... Asthma [J45.909] INVALID FOR* Priority: C More... Elevated gastrin level [E16.4] INVALID FOR* Flushing [R23.2] INVALID FOR*09/03/2018 Erosive esophagitis [K22.10] INVALID FOR* Spontaneous ecchymoses [R23.3] INVALID FOR* Lumbar back pain with radiculopathy affecting l*INVALID FOR* Arteriosclerosis of carotid artery [I65.29] INVALID FOR* MELYSSA (obstructive sleep apnea) [G47.33] INVALID FOR* Trigeminal neuralgia of right side of face [G50*INVALID FOR* Obesity (BMI 30-39.9) [E66.9] INVALID FOR* Grief [F43.21] INVALID FOR* Other seasonal allergic rhinitis [J30.2] INVALID FOR* Anxiety and depression [F41.9, F32.9] INVALID FOR* Sense of smell altered [R43.9] INVALID FOR* Nonintractable headache [R51] INVALID FOR* Non morbid obesity due to excess calories [E66.*INVALID FOR* Fibrocystic breast changes, bilateral [N60.11, *INVALID FOR* Orthostatic hypotension [I95.1] INVALID FOR* Moderate episode of recurrent major depressive *INVALID FOR* 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 RUQ pain [R10.11] INVALID FOR* More... More... Steatosis of liver [K76.0] INVALID FOR* Fatty liver disease, nonalcoholic [K76.0] INVALID FOR* Bile reflux gastritis [K29.60] INVALID FOR* Other instructions from your clinician: PLAN: take the carafate 1 gram four times/day add losartan 25mg daily--nurse bp check in 2 wks same other medications diet as tolerated I will work on second opinion for hepatology Mare River III MD Prescriptions ordered this encounter Disp Refills Start End LOSARTAN 25 MG TABLET 30 t* 11 09/23/2018 Route: ORAL Sig: Take 1 tablet by mouth once daily. Follow-up and Disposition History Recorded Encounter Status:Closed by MARE RIVER III, MD on 09/23/18 PULMONARY VISIT REPORT Observed: 09/22/2018 Status: F Source: [place] 5:50 AM [facility] of [address] [place] [address] OFFICE VISIT Date of Service: 09/23/18 MR#: [id number] Acct: [id number] Name: BRITNEY MARIE Milagro Rep #: [id number] : 1960 Provider: Kumar Manzanares MD Age/Sex: 57/F [place] [facility] [place]: Signed HPI 3 M FU: Details: Testing personally reviewed with the patient Complete PFT (06/29/2018): Possible small airways stigmata with significant bronchodilator response and mild degree of air trapping (FVC 92%, FEV1 84%, TLC 115%, RV 141%, DLCO 74%) Walking oximetry (07/01/2018): Ambulated 1052 feet over the course of 6 minutes with an oxygen norbert of 93% and significant tachycardia throughout testing PSG (06/16/2018): Overall AHI of 4.1 events per hour. Patient did have brief desaturation less than 88% with no obstructive events. HPI Comments Details: Smoking. 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 Allergies acetaminophen Allergy (Severe, Verified 09/21/18 08:03) Hives hydrocodone bitartrate [From Vicodin] Allergy (Severe, Verified 09/21/18 08:03) Hives hydromorphone HCl [From Dilaudid] Allergy (Severe, Verified 09/21/18 08:03) Hives, feels like on fire Penicillins Allergy (Severe, Verified 09/21/18 08:03) Anaphylaxis propoxyphene napsylate [From Darvocet-N 100] Allergy (Severe, Verified 09/21/18 08:03) Hives Sulfa (Sulfonamide Antibiotics) Allergy (Severe, Verified 09/21/18 08:03) Hives adhesive Allergy (Verified 09/21/18 08:03) Rash cephalexin monohydrate [From Keflex] Allergy (Verified 09/21/18 08:03) Rash Heparin Analogues Allergy (Verified 09/21/18 08:03) severe bruising and rash latex Allergy (Verified 09/21/18 08:03) Rash levofloxacin [From Levaquin] Allergy (Verified 09/21/18 08:03) Swelling, rash oxycodone HCl [From Percocet] Allergy (Verified 09/21/18 08:03) Hives oxytocin Allergy (Verified 09/21/18 08:03) Hives Medications Albuterol Inhaler [Ventolin Hfa (SP)] 2 puff INHALATION Q6H PRN PRN 02/05/17 [History Confirmed 09/21/18] Alendronate Sodium [Fosamax] 70 mg PO Q7D@0700 02/05/17 [History Confirmed 09/21/18] Atorvastatin Calcium [Lipitor] 80 mg PO QHS 02/05/17 [History Confirmed 09/21/18] HydrOXYzine [Atarax] 25 mg PO TID PRN PRN 02/05/17 [History Confirmed 09/21/18] Morphine [Morphine IR] 15 mg PO BID PRN 02/05/17 [History Confirmed 09/21/18] Nitroglycerin 0.4 mg SL PRN PRN 02/05/17 [History Confirmed 09/21/18] Pantoprazole Sodium [Protonix] 40 mg PO DAILY 02/05/17 [History Confirmed 09/21/18] proMETHazine tablet [Phenergan] 25 mg PO Q6H PRN PRN 02/05/17 [History Confirmed 09/21/18] Fluticasone/Vilanterol [Breo Ellipta 200-25 Mcg INH] 1 ea IH DAILY 01/15/18 [History Confirmed 09/21/18] Hydrochlorothiazide [Hctz] 12.5 mg PO DAILY 01/15/18 [History Confirmed 09/21/18] Loratadine 10 mg PO DAILY 01/15/18 [History Confirmed 09/21/18] Pregabalin [Lyrica] 100 mg PO TID 01/15/18 [History Confirmed 09/21/18] doxycycline hyclate 100 mg tablet 100 mg PO BID #20 tab 06/24/18 [Rx Confirmed 09/21/18] [facility] Medical History Trigeminal neuralgia (Chronic) Hypertension (Chronic) Esophageal reflux (Chronic) Dysmetabolic syndrome (Chronic) DDD (degenerative disc disease), cervical (Chronic) Cocaine substance abuse (Chronic) Migraine (Chronic) Benign essential hypertension (Chronic) Depression (Chronic) Type 2 diabetes mellitus (Chronic) Hyperlipidemia (Chronic) Chronic obstructive lung disease (Chronic) Smoker (Chronic) DJD (degenerative joint disease) (Chronic) TIA (transient ischemic attack) (Acute) Asthma (Chronic) Surgical History History of left heart catheterization (Resolved) History of tubal ligation (Resolved) History of appendectomy (Resolved) History of cholecystectomy (Resolved) Family History Mother Cancer Father Cancer Sister Cancer Social History Smoking Status: Current every day smoker second hand exposure: Yes alcohol intake: never substance use type: does not use caffeine: Yes what type of physical activity do you participate in: none Review of Systems Const CONSTITUTIONAL: Negative anorexia, body ache, chills, daytime sleepiness, fever(s), night sweats, oral thrush, stops breathing during sleep, weight loss, sleeping in chair, fatigue, weight loss, weight gain, frequent colds, seasonal allergies, other, headache(s) or orthopnea EETM Ear Nose Throat Mouth: Positive hearing normal; negative hard of hearing, hoarseness, dry mouth in morning, change in vision, itchy eyes, eye pain, swallowing Difficulty, ear pain, nose bleed, headache(s), mouth pain, nasal congestion, nasal discharge, post nasal drip, sinus pain, sinus pressure, sore throat or other Cardio Cardiovascular: Negative chest pain, chest pain at rest, chest pain with activity, irregular heart rhythm, edema, shortness of breath when lying down, palpitations, murmur or other Resp Respiratory: Positive as per HPI; negative shortness of breath, pain with cough, wheezing, chest congestion, cough, chest tightness, pain on inspiration, inhalers, increase use of rescue inhalers, snoring, apnea or other Gastro Gastrointestional: Negative bloody stools, change in appetite, difficulty swallowing, reflux, hematemesis, melena stool, loose stool, constipation or other Genitourinary: Negative blood in urine, nocturia, pain with urination or other Musc Musculoskeletal: Negative body pain, back pain, neck pain or other Skin/Breast Skin/Breast: Negative dry skin, itching, rash, unusual bruising, breast lump or other Neuro Neurological: Negative restless legs, confusion, weakness or other Psych Psychocological: Negative abnormal sleep pattern, anxiety, thoughts of hurting self/others, hopelessness or other Lymph Lymphatic: Negative easy bleeding, easy bruising, swollen lymph nodes or other Exam Ears Ear: Positive hearing normal; negative hard of hearing Nose Nose: Negative epistaxis Mouth Mouth: Negative post nasal drip Cardio Cardiac: Negative murmur Skin Pulmonary Skin Exam: Negative rash Lymph Lymphatic: No lymphadenopathy 09/22/18 0550 <Electronically signed by Kumar Manzanares MD> Date Kumar Manzanares MD Cosigner Signature: Date (if applicable) CC: PROGRESS Observed: 09/08/2018 Status: COMPLETED Source: [place] 5:11 PM [facility] [place] REPOSITORY O ID: [id number] Author: Rajeev Zuñiga Service: (none) Author Type: Physician Type: Progress Notes Filed: 09/08/2018 5:17 PM Note Text: CC: Abnormal MRI and right upper quadrant discomfort HPI: Britney Marie is a 57 year old female. The patient has a long history of GI complaints. They have been well documented in Khloe Moore's office visit in June of this year. It will be noted that the patient is status post cholecystectomy. The patient had a negative EGD and colonoscopy done by another physician. They were reportedly negative although I don't see the results. The patient said that the physician told her that the only cure for her troubles was to stop taking her MS Contin which he takes for neck and back pain. Why this would cause any improvement is beyond me. The patient was also found to have significantly fatty liver on MRI. She therefore underwent liver biopsy a few weeks ago which revealed significant fatty liver deposits but very little in the way of inflammation and no fibrosis.. I explained to the patient that her situation is good and that she does not have marked inflammation. I also explained that livers do not cause pain and therefore although she has fat in her liver is not the source of her pain She notes that her pain is present frequently and is worsened by eating. She also tells me that her 3 years ago and that this bothers her significantly. PAST MEDICAL HISTORY Diagnosis Date - ASHD (arteriosclerotic heart disease) 10/14/2011 - Bandemia 01/29/2018 - Cervical disc disorder at C4-C5 level with radiculopathy - Cocaine substance abuse (HCC) 2003 - COPD (chronic obstructive pulmonary disease) (HCC) - Degenerative disc disease, cervical 2010 - Depression 2010 - Dysmetabolic syndrome X 01/21/2011 - Dyspnea on exertion - Erosive esophagitis 09/04/2014 - Esophageal reflux Gastroesophageal reflux - Essential hypertension, benign 09/09/2010 no meds currently 03/26 - Fibrocystic breast changes, bilateral 01/28/2017 - Hyperlipidemia LDL goal < 70 10/14/2011 - Migraine headache 01/23/2012 - Myalgia - Nodule of right lung 03/02/2018 02/09/18: 5 mm to recheck in 1 yr - Non morbid obesity due to excess calories 08/29/2016 - Obstructive sleep apnea - Osteoporosis 03/13/2011 - Other cervical disc displacement at C4-C5 level - Other intervertebral disc displacement, lumbar region - Other muscle spasm - Other specified dorsopathies, lumbosacral region - Peptic ulcer, unspecified site, unspecified as acute or chronic, without mention of hemorrhage, perforation, or obstruction Peptic ulcer disease - Spinal stenosis, cervical region - Spondylosis without myelopathy or radiculopathy, cervical region - Steatosis of liver 07/30/2018 - Tobacco abuse 01/23/2012 - Trigeminal neuralgia 12/29/2013 - Type 2 diabetes mellitus (HCC) 07/15/2018 - Vitamin D deficiency 03/19/2011 PAST SURGICAL HISTORY Procedure Laterality Date - ANTERIOR INTERBODY FUSION, CERVICAL 1992 - APPENDECTOMY 2004- - CHOLECYSTECTOMY about 2005- sludge - COLONOSCOP W/ OR W/O [facility] SPEC 04/30/2010 Dr. Rayshawn Shrestha - COLONOSCOP W/ OR W/O [facility] SPEC 08/10/13 Colonoscopy - COLONOSCOP W/ OR W/O [facility] SPEC 08/03/2018 Colonoscopy - EGD W/O OR W/BRUSH/WASH 08/10/13 EGD - EGD W/O OR W/BRUSH/WASH 08/03/2018 EGD - LAPAROSCOPY, SURGICAL, ESOPHAGOGAST 3-10 LAP KAMILA - LEFT HEART CATH,PERCUTANEOUS 12/17/11 Cardiac cath, L heart, see scanned report - Tonsilectomy - TUBAL LIGATION, - XR CERVICAL FUSION OR 1998 posterior fusion SOCIAL HX: Social History Substance Use Topics - Smoking status: Current Every Day Smoker Packs/day: 0.25 Years: 45.00 Types: Cigarettes - Smokeless tobacco: Never Used Comment: trying to quit - Alcohol use No FAMILY HISTORY Problem Relation Age of Onset - Heart Father 35 - Cancer Father - Cancer Mother - Breast Cancer Paternal Grandmother - Breast Cancer Paternal Aunt - Cancer Maternal Uncle LUNG - Heart Maternal Grandmother ALLERGIES: ALLERGIES Allergen Reactions - Latex Rash - Darvocet A500 [Prop* Itching - Darvocet-N 100 [Pro* Itching - Dilaudid [Hydromorp* Other: See Comments Burning sensation over entire body - Ees [Other] - Heparin Analogues Hives, Swelling - Keflex [Cephalexin] Swelling, Itching, Shortness of Breath - Levaquin [Levofloxa* Itching - Lisinopril Other: See Comments flushing - Oxycodone Itching - Oxycotin [Oxycodone] Hives, Swelling, Itching - Penicillin Anaphylaxis 4 years old - Percocet [Oxycodone* Itching - Polytrim [Polymyxin* Swelling, Itching - Sulfa (Sulfonamide * Hives - Tegretol [Carbamaze* Mental Status Change - Vibramycin [Doxycyc* Hives, Itching - Vicodin [Hydrocodon* - Adhesive Tape (Elizabeth* Rash, Itching MEDICATIONS: rosuvastatin (CRESTOR) 5 mg tablet Take 1 tablet by mouth daily at bedtime. metoprolol succinate ER (TOPROL XL) 50 mg 24 hr tablet Take 1 tablet by mouth once daily. furosemide (LASIX) 20 mg tablet Take 1 tablet by mouth once daily. levocetirizine dihydrochloride (XYZAL ORAL) Take by mouth as needed. morphine SR (MS CONTIN, ORAMORPH SR) 15 mg 12 hr tablet Take 15 mg by mouth twice daily. sucralfate (CARAFATE) 1 gram tablet Take at least 30 minutes before eating, and again before bed, if needed. colestipol (COLESTID) 1 gram tablet Take 2 tablets by mouth once daily. ondansetron orally disintegrating (ZOFRAN ODT) 4 mg disintegrating tablet Take 1 tablet by mouth every 6 hours as needed for Nausea/Vomiting. buPROPion SR (WELLBUTRIN SR) 150 mg 12 hr tablet Take 1 tablet by mouth twice daily. fluticasone-vilanterol (BREO ELLIPTA) 200-25 mcg/dose inhaler Inhale 1 Inhalation as instructed once daily. Inhale one puff once daily. DO NOT CLICK OPEN UNTIL READY FOR DOSE albuterol (PROVENTIL) 2.5 mg /3 mL (0.083 %) nebulizer solution Use 3 mL via nebulizer every 4 hours as needed for Wheezing/Shortness of Breath. Use over 5-15minutes. albuterol HFA (VENTOLIN HFA) 90 mcg/actuation inhaler Inhale 2 Puffs as instructed every 4 hours as needed for Wheezing/Shortness of Breath. nitroglycerin sublingual (NITROQUICK) 0.4 mg SL tablet Dissolve 1 tablet under the tongue as needed. FOR CHEST PAIN. IF NO RELIEF CALL 911 pregabalin (LYRICA) 100 mg capsule Take 1 capsule by mouth three times daily. dicyclomine (BENTYL) 20 mg tablet Take 1 tablet by mouth three times daily before meals. coenzyme Q10 (COQ-10) 100 mg cap capsule Take 1 capsule by mouth twice daily. loratadine (CLARITIN) 10 mg tablet Take 1 tablet by mouth once daily. pantoprazole DR (PROTONIX) 40 mg tablet Take 1 tablet by mouth once daily. ROS: All systems reviewed and negative except as above noted. PHYSICAL EXAM: VITALS: BP 134/79 Pulse 80 Wt 187 lb 6.4 oz (85.0kg) General Appearance: Well appearing, alert, in no acute distress, well-hydrated, well nourished.. Skin: Skin color, texture, turgor normal, no suspicious rashes or lesions. Eyes: Anicteric sclera. Pupils are equally round and reactive to light. Extraocular movements are intact. Nose/Sinuses: Nares normal, septum midline, mucosa normal, no drainage or sinus tenderness. Oropharynx: Lips, mucosa, and tongue normal, teeth and gingiva normal, oropharynx normal. Neck: Supple, no adenopathy; thyroid symmetric, normal size, no bruits. Back: good flexion and extension, good range of motion, no muscle tenderness, motor and sensory appear to be normal, no evidence of scoliosis. Lungs: Lungs clear to auscultation. No wheezing, rhonchi, rales. Heart: RRR without murmur, gallop, or rubs. No ectopy. Abdomen: Normal abdominal exam, Abdomen soft, non-tender. Bowel sounds normal. No masses, organomegaly. Extremities: No deformities, edema, skin discoloration, clubbing or cyanosis. . IMPRESSION: This 57-year-old white female has a long history of GI symptomatology. Most recently she has right upper quadrant discomfort that is worse after eating. She is status post cholecystectomy so that is not the problem. She does have a fatty liver without inflammation. Liver is do not cause discomfort so that is not the cause of her troubles. She was told of a mild dilatation of her ductal system but this is almost certainly due to the fact that she is many years status post cholecystectomy and not total obstruction. If she had obstruction in her liver enzymes were elevated and they are not-this effectively rules out any obstruction. I believe this patient's symptoms are functional in nature. There are perhaps worsened by the fact that she is having trouble dealing with her 's and she is unable to get a clear answer as to what her problem is from several physicians PLAN: Dicyclomine 20 mg by mouth 3 times a day before meals Would strongly suggest the patient seek counseling and possibly the help of a psychiatrist as well This note was partially generated using Mape voice recognition system, and there may be some incorrect words, spellings, and punctuation that were not noted in checking the note before saving. Rajeev Zuñiga MD CNOV Observed: 09/08/2018 Status: COMPLETED Source: [place] 2:10 PM [facility] REPOSITORY Office Visit (GASTTW) BRITNEY MARIE ([id number]) 1960 F [facility] Date Time Provider Department 09/08/18 2:10 PM RAJEEV ZUÑIGA During your visit today, we recorded the following information about you: Pulse Blood pressure Weight 80/minute 134/79 85 kg Rajeev Zuñiga MD 09/08/2018 5:17 PM Signed CC: Abnormal MRI and right upper quadrant discomfort HPI: Britney Marie is a 57 year old female. The patient has a long history of GI complaints. They have been well documented in Khloe Moore's office visit in June of this year. It will be noted that the patient is status post cholecystectomy. The patient had a negative EGD and colonoscopy done by another physician. They were reportedly negative although I don't see the results. The patient said that the physician told her that the only cure for her troubles was to stop taking her MS Contin which he takes for neck and back pain. Why this would cause any improvement is beyond me. The patient was also found to have significantly fatty liver on MRI. She therefore underwent liver biopsy a few weeks ago which revealed significant fatty liver deposits but very little in the way of inflammation and no fibrosis.. I explained to the patient that her situation is good and that she does not have marked inflammation. I also explained that livers do not cause pain and therefore although she has fat in her liver is not the source of her pain She notes that her pain is present frequently and is worsened by eating. She also tells me that her 3 years ago and that this bothers her significantly. PAST MEDICAL HISTORY Diagnosis Date - ASHD (arteriosclerotic heart disease) 10/14/2011 - Bandemia 01/29/2018 - Cervical disc disorder at C4-C5 level with radiculopathy - Cocaine substance abuse (HCC) 2003 - COPD (chronic obstructive pulmonary disease) ([facility]) - Degenerative disc disease, cervical 2010 - Depression 2010 - Dysmetabolic syndrome X 01/21/2011 - Dyspnea on exertion - Erosive esophagitis 09/04/2014 - Esophageal reflux Gastroesophageal reflux - Essential hypertension, benign 09/09/2010 no meds currently 03/26 - Fibrocystic breast changes, bilateral 01/28/2017 - Hyperlipidemia LDL goal < 70 10/14/2011 - Migraine headache 01/23/2012 - Myalgia - Nodule of right lung 03/02/2018 02/09/18: 5 mm to recheck in 1 yr - Non morbid obesity due to excess calories 08/29/2016 - Obstructive sleep apnea - Osteoporosis 03/13/2011 - Other cervical disc displacement at C4-C5 level - Other intervertebral disc displacement, lumbar region - Other muscle spasm - Other specified dorsopathies, lumbosacral region - Peptic ulcer, unspecified site, unspecified as acute or chronic, without mention of hemorrhage, perforation, or obstruction Peptic ulcer disease - Spinal stenosis, cervical region - Spondylosis without myelopathy or radiculopathy, cervical region - Steatosis of liver 07/30/2018 - Tobacco abuse 01/23/2012 - Trigeminal neuralgia 12/29/2013 - Type 2 diabetes mellitus (HCC) 07/15/2018 - Vitamin D deficiency 03/19/2011 PAST SURGICAL HISTORY Procedure Laterality Date - ANTERIOR INTERBODY FUSION, CERVICAL 1992 - APPENDECTOMY 2004- - CHOLECYSTECTOMY about 2005- sludge - COLONOSCOP W/ OR W/O BRS SPEC 04/30/2010 Dr. Rayshawn Shrestha - COLONOSCOP W/ OR W/O BRSH SPEC 08/10/13 Colonoscopy - COLONOSCOP W/ OR W/O BRSH SPEC 08/03/2018 Colonoscopy - EGD W/O OR W/BRUSH/WASH 08/10/13 EGD - EGD W/O OR W/BRUSH/WASH 08/03/2018 EGD - LAPAROSCOPY, SURGICAL, ESOPHAGOGAST 01-25-10 LAP KAMILA - LEFT HEART CATH,PERCUTANEOUS 12/17/11 Cardiac cath, L heart, see scanned report - Tonsilectomy - TUBAL LIGATION, - XR CERVICAL FUSION OR 1997 posterior fusion SOCIAL HX: Social History Substance Use Topics - Smoking status: Current Every Day Smoker Packs/day: 0.25 Years: 45.00 Types: Cigarettes - Smokeless tobacco: Never Used Comment: trying to quit - Alcohol use No FAMILY HISTORY Problem Relation Age of Onset - Heart Father 35 - Cancer Father - Cancer Mother - Breast Cancer Paternal Grandmother - Breast Cancer Paternal Aunt - Cancer Maternal Uncle LUNG - Heart Maternal Grandmother ALLERGIES: ALLERGIES Allergen Reactions - Latex Rash - Darvocet A500 [Prop* Itching - Darvocet-N 100 [Pro* Itching - Dilaudid [Hydromorp* Other: See Comments Burning sensation over entire body - Ees [Other] - Heparin Analogues Hives, Swelling - Keflex [Cephalexin] Swelling, Itching, Shortness of Breath - Levaquin [Levofloxa* Itching - Lisinopril Other: See Comments flushing - Oxycodone Itching - Oxycotin [Oxycodone] Hives, Swelling, Itching - Penicillin Anaphylaxis 4 years old - Percocet [Oxycodone* Itching - Polytrim [Polymyxin* Swelling, Itching - Sulfa (Sulfonamide * Hives - Tegretol [Carbamaze* Mental Status Change - Vibramycin [Doxycyc* Hives, Itching - Vicodin [Hydrocodon* - Adhesive Tape (Elizabeth* Rash, Itching MEDICATIONS: rosuvastatin (CRESTOR) 5 mg tablet Take 1 tablet by mouth daily at bedtime. metoprolol succinate ER (TOPROL XL) 50 mg 24 hr tablet Take 1 tablet by mouth once daily. furosemide (LASIX) 20 mg tablet Take 1 tablet by mouth once daily. levocetirizine dihydrochloride (XYZAL ORAL) Take by mouth as needed. morphine SR (MS CONTIN, ORAMORPH SR) 15 mg 12 hr tablet Take 15 mg by mouth twice daily. sucralfate (CARAFATE) 1 gram tablet Take at least 30 minutes before eating, and again before bed, if needed. colestipol (COLESTID) 1 gram tablet Take 2 tablets by mouth once daily. ondansetron orally disintegrating (ZOFRAN ODT) 4 mg disintegrating tablet Take 1 tablet by mouth every 6 hours as needed for Nausea/Vomiting. buPROPion SR (WELLBUTRIN SR) 150 mg 12 hr tablet Take 1 tablet by mouth twice daily. fluticasone-vilanterol (BREO ELLIPTA) 200-25 mcg/dose inhaler Inhale 1 Inhalation as instructed once daily. Inhale one puff once daily. DO NOT CLICK OPEN UNTIL READY FOR DOSE albuterol (PROVENTIL) 2.5 mg /3 mL (0.083 %) nebulizer solution Use 3 mL via nebulizer every 4 hours as needed for Wheezing/Shortness of Breath. Use over 5-15minutes. albuterol HFA (VENTOLIN HFA) 90 mcg/actuation inhaler Inhale 2 Puffs as instructed every 4 hours as needed for Wheezing/Shortness of Breath. nitroglycerin sublingual (NITROQUICK) 0.4 mg SL tablet Dissolve 1 tablet under the tongue as needed. FOR CHEST PAIN. IF NO RELIEF CALL 911 pregabalin (LYRICA) 100 mg capsule Take 1 capsule by mouth three times daily. dicyclomine (BENTYL) 20 mg tablet Take 1 tablet by mouth three times daily before meals. coenzyme Q10 (COQ-10) 100 mg cap capsule Take 1 capsule by mouth twice daily. loratadine (CLARITIN) 10 mg tablet Take 1 tablet by mouth once daily. pantoprazole DR (PROTONIX) 40 mg tablet Take 1 tablet by mouth once daily. ROS: All systems reviewed and negative except as above noted. PHYSICAL EXAM: VITALS: BP 134/79 Pulse 80 Wt 187 lb 6.4 oz (85.0kg) General Appearance: Well appearing, alert, in no acute distress, well-hydrated, well nourished.. Skin: Skin color, texture, turgor normal, no suspicious rashes or lesions. Eyes: Anicteric sclera. Pupils are equally round and reactive to light. Extraocular movements are intact. Nose/Sinuses: Nares normal, septum midline, mucosa normal, no drainage or sinus tenderness. Oropharynx: Lips, mucosa, and tongue normal, teeth and gingiva normal, oropharynx normal. Neck: Supple, no adenopathy; thyroid symmetric, normal size, no bruits. Back: good flexion and extension, good range of motion, no muscle tenderness, motor and sensory appear to be normal, no evidence of scoliosis. Lungs: Lungs clear to auscultation. No wheezing, rhonchi, rales. Heart: RRR without murmur, gallop, or rubs. No ectopy. Abdomen: Normal abdominal exam, Abdomen soft, non-tender. Bowel sounds normal. No masses, organomegaly. Extremities: No deformities, edema, skin discoloration, clubbing or cyanosis. . IMPRESSION: This 57-year-old white female has a long history of GI symptomatology. Most recently she has right upper quadrant discomfort that is worse after eating. She is status post cholecystectomy so that is not the problem. She does have a fatty liver without inflammation. Liver is do not cause discomfort so that is not the cause of her troubles. She was told of a mild dilatation of her ductal system but this is almost certainly due to the fact that she is many years status post cholecystectomy and not total obstruction. If she had obstruction in her liver enzymes were elevated and they are not-this effectively rules out any obstruction. I believe this patient's symptoms are functional in nature. There are perhaps worsened by the fact that she is having trouble dealing with her 's and she is unable to get a clear answer as to what her problem is from several physicians PLAN: Dicyclomine 20 mg by mouth 3 times a day before meals Would strongly suggest the patient seek counseling and possibly the help of a psychiatrist as well This note was partially generated using Mape voice recognition system, and there may be some incorrect words, spellings, and punctuation that were not noted in checking the note before saving. Rajeev Zuñiga MD Referring Provider: JESSEE MOORE ([employer]) [[id number]] Allergies As of Date: 09/08/2018 Noted Allergy Reaction LATEX 10/21/2013 2 - Rash DARVOCET A500 (PROPOXYPHENE N-CORRIE*08/05/2017 9 - Itching DARVOCET-N 100 (PROPOXYPHENE N-AC*12/11/2009 9 - Itching DILAUDID (HYDROMORPHONE HCL) 08/05/2017 14 - Other: See Comments Comments: Burning sensation over entire body EES [Other] 11/24/2005 HEPARIN ANALOGUES 06/09/2013 4 - Hives 7 - Swelling KEFLEX (CEPHALEXIN) 08/05/2017 7 - Swelling 9 - Itching 12 - Shortness of Breath LEVAQUIN (LEVOFLOXACIN) 11/10/2013 9 - Itching LISINOPRIL 01/17/2015 14 - Other: See Comments Comments: flushing OXYCODONE 08/05/2017 9 - Itching OXYCOTIN (OXYCODONE) 12/11/2009 4 - Hives 7 - Swelling 9 - Itching PENICILLIN 08/05/2017 10 - Anaphylaxis Comments: 4 years old PERCOCET (OXYCODONE-ACETAMINOPHEN)12/11/2009 9 - Itching POLYTRIM (POLYMYXIN B SULF-TRIMET*03/29/2015 7 - Swelling 9 - Itching SULFA (SULFONAMIDE ANTIBIOTICS) 11/24/2005 4 - Hives TEGRETOL (CARBAMAZEPINE) 06/04/2015 1 - Mental Status Change VIBRAMYCIN (DOXYCYCLINE CALCIUM) 08/05/2017 4 - Hives 9 - Itching VICODIN (HYDROCODONE-ACETAMINOPHE*11/24/2005 ADHESIVE TAPE (ROSINS) 03/03/2012 2 - Rash 9 - Itching Date Reviewed: 09/08/2018 Reviewed by: Danielle Raphael - Fully Assessed Reason for Visit: Recheck [92] Cmt: test results Primary Visit Diagnosis:Right upper quadrant pain [R10.11] Order(s):dicyclomine (BENTYL) 20 mg tabletTake 1 tablet by mouth three times daily before meals.Disp: 90 tabletRfl: 3 Prescriptions as of 09/08/2018 Sig: ROSUVASTATIN 5 MG TABLET Take 1 tablet by mouth daily * METOPROLOL SUCCINATE ER 50 MG* Take 1 tablet by mouth once d* FUROSEMIDE 20 MG TABLET Take 1 tablet by mouth once d* XYZAL ORAL Take by mouth as needed. MORPHINE ER 15 MG TABLET,EXTE* Take 15 mg by mouth twice octavio* SUCRALFATE 1 GRAM TABLET Take at least 30 minutes befo* COLESTIPOL 1 GRAM TABLET Take 2 tablets by mouth once * ONDANSETRON 4 MG DISINTEGRATI* Take 1 tablet by mouth every * BUPROPION HCL SR 150 MG TABLE* Take 1 tablet by mouth twice * FLUTICASONE 200 MCG-VILANTERO* Inhale 1 Inhalation as instru* ALBUTEROL SULFATE 2.5 MG/3 ML* Use 3 mL via nebulizer every * ALBUTEROL SULFATE HFA 90 MCG/* Inhale 2 Puffs as instructed * NITROGLYCERIN 0.4 MG SUBLINGU* Dissolve 1 tablet under the t* PREGABALIN 100 MG CAPSULE Take 1 capsule by mouth three* DICYCLOMINE 20 MG TABLET Take 1 tablet by mouth three * COENZYME Q10 100 MG CAPSULE Take 1 capsule by mouth twice* Patient not taking: Reported on 09/08/2018 LORATADINE 10 MG TABLET Take 1 tablet by mouth once d* Patient not taking: Reported on 09/08/2018 PANTOPRAZOLE 40 MG TABLET,DEL* Take 1 tablet by mouth once d* Patient not taking: Reported on 09/08/2018 Problem List As Of Date 09/08/2018 Noted Resolved Cocaine substance abuse [F14.10] 09/04/2014 Essential hypertension, benign [I10] INVALID FOR* Priority: F More... Degenerative disc disease, cervical [M50.30] INVALID FOR* Priority: D More... Depression [F32.9] INVALID FOR* Priority: E More... Osteoporosis [M81.0] INVALID FOR* Cervical disc disorder [M50.90] INVALID FOR* Vitamin D deficiency [E55.9] INVALID FOR* Hyperlipidemia with target LDL less than 70 [E7*INVALID FOR* Priority: G More... ASHD (arteriosclerotic heart disease) [I25.10] INVALID FOR* More... Chest pain [R07.9] INVALID FOR*09/04/2014 Priority: B More... Tobacco abuse [Z72.0] INVALID FOR* Priority: I More... Tobacco abuse counseling [Z71.6] INVALID FOR* Migraine headache [G43.909] INVALID FOR* Priority: H More... SUMMARY [V999.95] INVALID FOR* Priority: A More... Asthma [J45.909] INVALID FOR* Priority: C More... Elevated gastrin level [E16.4] INVALID FOR* Flushing [R23.2] INVALID FOR*09/03/2018 Erosive esophagitis [K22.10] INVALID FOR* Spontaneous ecchymoses [R23.3] INVALID FOR* Lumbar back pain with radiculopathy affecting l*INVALID FOR* Arteriosclerosis of carotid artery [I65.29] INVALID FOR* MELYSSA (obstructive sleep apnea) [G47.33] INVALID FOR* Trigeminal neuralgia of right side of face [G50*INVALID FOR* Obesity (BMI 30-39.9) [E66.9] INVALID FOR* Grief [F43.21] INVALID FOR* Other seasonal allergic rhinitis [J30.2] INVALID FOR* Anxiety and depression [F41.9, F32.9] INVALID FOR* Sense of smell altered [R43.9] INVALID FOR* Nonintractable headache [R51] INVALID FOR* Non morbid obesity due to excess calories [E66.*INVALID FOR* Fibrocystic breast changes, bilateral [N60.11, *INVALID FOR* Orthostatic hypotension [I95.1] INVALID FOR* Moderate episode of recurrent major depressive *INVALID FOR* 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 RUQ pain [R10.11] INVALID FOR* More... More... Steatosis of liver [K76.0] INVALID FOR* Fatty liver disease, nonalcoholic [K76.0] INVALID FOR* Prescriptions ordered this encounter Disp Refills Start End DICYCLOMINE 20 MG TABLET 90 t* 3 09/08/2018 Route: ORAL Sig: Take 1 tablet by mouth three times daily before meals. Encounter Status:Closed by RAJEEV ZUÑIGA MD on 09/08/18 PROGRESS Observed: 09/03/2018 Status: COMPLETED Source: [place] 2:31 PM [facility] REPOSITORY O ID: [id number] Author: [place] III Service: (none) Author Type: Physician Type: Progress Notes Filed: 09/03/2018 3:47 PM Note Text: SUBJECTIVE: This is a 57 year old female that is here today for 1. liver bx report reviewed. Severe steatosis w/o fibrosis. She has on-going pain RUQ. To see Dr Zuñiga. Dec. appetite but no wt loss because of fatigue and no exercise. 2. hypertension-has stopped metoprolol and lasix. 3. has not been taking her meds consistently. Meds reviewed 4. lots of stress--though son and d-in-law have left the house 5. wants to restart chantix to quit smoking 08/30/2018 ?6:02 PM - Interface, Results II Results Specimen originated from [facility] Specimen #: [id number] Submitting Physician: ALEXUS WEBSTER MD FINAL DIAGNOSIS Liver, biopsy ?Severe steatosis without fibrosis. - See comment. TP/glw 08/30/2018 COMMENT The lobular architecture is intact. The portal tracts harbor their usual structures with intact intralobular bile ducts and portal vasculature. There is no significant portal inflammation. The lobules demonstrate severe steatosis (70%) without any definitive ballooned hepatocytes. No Litzy hyaline deposition is seen. ?The lobules demonstrate mild inflammation. Central veins are patent and uninflamed. There is no cholestasis or granulomatous inflammation. PAS after diastase shows no alpha-1 antitrypsin inclusions. Trichrome stain highlights no fibrosis. Iron stain is negative for stainable iron. ?Trichrome highlights no definite fibrosis. NAFLD Activity Score (JEMIMA): Steatosis: 3 (>66%) Lobular inflammation (foci per 20x field): 1(<2) Hepatocyte balloonin (none), Total Score: 4/8. Stage: 0 (none) Other features: None Litzy hyaline: Negative Other forms of chronic liver disease: None Reference: Lyn DE, Tsering EM, et al. Hepatology 41(6):1313- 21, 2005. Wei Flynn M.D. (Electronic Signature) SPECIMEN SUBMITTED A: LIVER, BIOPSY ? CLINICAL DATA FATTY LIVER SUGGESTED ON MRI, LMP: NA GROSS DESCRIPTION A. Received in formalin are two segments of cylindrical tissue aggregating to 1.8 x 0.2 x 0.1 cm, hidalgo and of a soft consistency. Totally submitted in formalin in one cassette. Gross examination performed at [facility], [address] [place], [place] [id number] [facility] 08/27/2018 3:36:16 PM Date of Report: 08/30/2018 Date of Procedure: 08/27/2018 Date of Receipt: 08/27/2018 Submitted by: ALEXUS WEBSTER MD Location: [facility] Diagnostic interpretation performed at [facility], [address] [place] [address], PAST MEDICAL HISTORY Diagnosis Date - ASHD (arteriosclerotic heart disease) 10/14/2011 - Bandemia 01/29/2018 - Cervical disc disorder at C4-C5 level with radiculopathy - Cocaine substance abuse ([facility]) 2003 - COPD (chronic obstructive pulmonary disease) ([facility]) - Degenerative disc disease, cervical 2010 - Depression 2010 - Dysmetabolic syndrome X 01/21/2011 - Dyspnea on exertion - Erosive esophagitis 09/04/2014 - Esophageal reflux Gastroesophageal reflux - Essential hypertension, benign 09/09/2010 no meds currently 03/26 - Fibrocystic breast changes, bilateral 01/28/2017 - Hyperlipidemia LDL goal < 70 10/14/2011 - Migraine headache 01/23/2012 - Myalgia - Nodule of right lung 03/02/2018 02/09/18: 5 mm to recheck in 1 yr - Non morbid obesity due to excess calories 08/29/2016 - Obstructive sleep apnea - Osteoporosis 03/13/2011 - Other cervical disc displacement at C4-C5 level - Other intervertebral disc displacement, lumbar region - Other muscle spasm - Other specified dorsopathies, lumbosacral region - Peptic ulcer, unspecified site, unspecified as acute or chronic, without mention of hemorrhage, perforation, or obstruction Peptic ulcer disease - Spinal stenosis, cervical region - Spondylosis without myelopathy or radiculopathy, cervical region - Steatosis of liver 07/30/2018 - Tobacco abuse 01/23/2012 - Trigeminal neuralgia 12/29/2013 - Type 2 diabetes mellitus (HCC) 07/15/2018 - Vitamin D deficiency 03/19/2011 Current Outpatient Prescriptions on File Prior to Visit: levocetirizine dihydrochloride (XYZAL ORAL) Take by mouth as needed. morphine SR (MS CONTIN, ORAMORPH SR) 15 mg 12 hr tablet Take 15 mg by mouth twice daily. sucralfate (CARAFATE) 1 gram tablet Take at least 30 minutes before eating, and again before bed, if needed. colestipol (COLESTID) 1 gram tablet Take 2 tablets by mouth once daily. ondansetron orally disintegrating (ZOFRAN ODT) 4 mg disintegrating tablet Take 1 tablet by mouth every 6 hours as needed for Nausea/Vomiting. buPROPion SR (WELLBUTRIN SR) 150 mg 12 hr tablet Take 1 tablet by mouth twice daily. fluticasone-vilanterol (BREO ELLIPTA) 200-25 mcg/dose inhaler Inhale 1 Inhalation as instructed once daily. Inhale one puff once daily. DO NOT CLICK OPEN UNTIL READY FOR DOSE albuterol (PROVENTIL) 2.5 mg /3 mL (0.083 %) nebulizer solution Use 3 mL via nebulizer every 4 hours as needed for Wheezing/Shortness of Breath. Use over 5-15minutes. albuterol HFA (VENTOLIN HFA) 90 mcg/actuation inhaler Inhale 2 Puffs as instructed every 4 hours as needed for Wheezing/Shortness of Breath. coenzyme Q10 (COQ-10) 100 mg cap capsule Take 1 capsule by mouth twice daily. atorvastatin (LIPITOR) 80 mg tablet Take 1 tablet by mouth once daily. nitroglycerin sublingual (NITROQUICK) 0.4 mg SL tablet Dissolve 1 tablet under the tongue as needed. FOR CHEST PAIN. IF NO RELIEF CALL 911 metoprolol succinate ER (TOPROL XL) 50 mg 24 hr tablet Take 1 tablet by mouth once daily. loratadine (CLARITIN) 10 mg tablet Take 1 tablet by mouth once daily. pregabalin (LYRICA) 100 mg capsule Take 1 capsule by mouth three times daily. pantoprazole DR (PROTONIX) 40 mg tablet Take 1 tablet by mouth once daily. (Patient taking differently: Take 40 mg by mouth as needed.) No current facility-administered medications on file prior to visit. FAMILY HISTORY Problem Relation Age of Onset - Heart Father 35 - Cancer Father - Cancer Mother - Breast Cancer Paternal Grandmother - Breast Cancer Paternal Aunt - Cancer Maternal Uncle LUNG - Heart Maternal Grandmother Social History Substance Use Topics - Smoking status: Current Every Day Smoker Packs/day: 0.25 Years: 45.00 Types: Cigarettes - Smokeless tobacco: Never Used Comment: trying to quit - Alcohol use No BP 187/115 Pulse 108 Resp 16 Ht 157.5 cm (5' 2) Wt 84.8 kg (187 lb) BMI 34.20 kg/m? . OBJECTIVE: APPEARANCE Well appearing, alert, in no acute distress, well-hydrated, well nourished., Obese and Appearance: well dressed well groomed, cooperative and pleasant Behavior: good eye contact Speech: fluent and coherent Mood: euthymic Affect: appropriate Perceptions: none Thought process: goal directed Thought Content: normal Intelligence level: normal Insight: good Judgment: good ASSESSMENT: fatty liver disease with severe steatosis hypertension--not at goal ch anxiety/depression tobacco use disorder PLAN: healthy diet and regular exercise resume metoprolol succ ER 50 mg daily switch from atorvastatin to rosuvastatin 5 mg daily for lipids lasix 20 mg once/day as needed for edema keep appt with DR Yogesh rogers as directed follow bp Mare River III MD PROGRESS Observed: 09/03/2018 Status: COMPLETED Source: [place] 2:15 PM [facility] [place] REPOSITORY [facility] ID: [id number] Author: Bekah Senior MA Service: (none) Author Type: Real Estate Appraiser Supervisor Type: Progress Notes Filed: 09/03/2018 3:47 PM Note Text: 57 year old female here for INACTIVATED INFLUENZA VACCINE. [id number] Season Patient is identified by name and date of : Yes [] CONTRAINDICATIONS color enhanced section Age less than 6 months? No Allergy to eggs, chicken, chicken feathers, or chicken dander? No Allergy to thimerosal (a preservative) or formaldehyde, gelatin? No History of severe reaction to any vaccine component or a previous dose of influenza vaccination? No History of Guillain-Rochester Syndrome within 6 weeks after a previous influenza vaccine? No Patient is not moderately or severely ill? No Current temperature greater or equal to 100.4F? No History of Bone Marrow Transplant prior 6 months or solid organ transplant in the past 3 months ? No History of fainting after a prior injection or medical procedure? No- ? If patient has fainted in the past, the CDC recommends sitting or lying down for 15 minutes after the vaccination. [] VERIFICATION color enhanced section Was the answer Yes for any of the above contraindications? No contraindications present. Acceptable to proceed with vaccine. Patient/guardian agrees the above answers are true to the best of their knowledge? Yes Flu vaccine information sheet given? Yes See immunization activity in [facility] for details of immunizations adminstered today. Patient age: [age] year old For The [id number] Flu Season 6-35 months old: Fluzone 0.25 ml - IM (Preservative Free) 3 years of age: Fluzone 0.5 ml - IM (Preservative Free) 3 years and older: Fluzone 0.5 ml- IM-(with Preservatives) 65+ years old: 2-49 years old Fluzone High-Dose 0.5 ml - IM (Preservative Free) FLUMIST- intranasal REMEMBER: If patient is less than 9 years of age and this is the first vaccine of Influenza to be received in any flu season, they should receive a second dose in one months time. CNOV Observed: 09/03/2018 Status: COMPLETED Source: [place] 1:40 PM [facility] REPOSITORY Office Visit ([facility] BRITNEY MARIE ([id number]) 1960 F CHT Date Time Provider Department 09/03/18 1:40 PM MARE RIVER III During your visit today, we recorded the following information about you: Pulse Respiration Blood pressure Weight 108/minute 16/minute 187/115 84.8 kg Height 1.575 m Bekah SeniorNINO, [place] 09/03/2018 3:47 PM Signed 57 year old female here for INACTIVATED INFLUENZA VACCINE. Season Patient is identified by name and date of : Yes [] CONTRAINDICATIONS color enhanced section Age less than 6 months? No Allergy to eggs, chicken, chicken feathers, or chicken dander? No Allergy to thimerosal (a preservative) or formaldehyde, gelatin? No History of severe reaction to any vaccine component or a previous dose of influenza vaccination? No History of Guillain-Rochester Syndrome within 6 weeks after a previous influenza vaccine? No Patient is not moderately or severely ill? No Current temperature greater or equal to 100.4F? No History of Bone Marrow Transplant prior 6 months or solid organ transplant in the past 3 months ? No History of fainting after a prior injection or medical procedure? No- ? If patient has fainted in the past, the CDC recommends sitting or lying down for 15 minutes after the vaccination. [] VERIFICATION color enhanced section Was the answer Yes for any of the above contraindications? No contraindications present. Acceptable to proceed with vaccine. Patient/guardian agrees the above answers are true to the best of their knowledge? Yes Flu vaccine information sheet given? Yes [facility] for details of immunizations adminstered today. Patient age: [age] year old For The Flu Season 6-35 months old: Fluzone 0.25 ml - IM (Preservative Free) 3 years of age: Fluzone 0.5 ml - IM (Preservative Free) 3 years and older: Fluzone 0.5 ml- IM-(with Preservatives) 65+ years old: 2-49 years old Fluzone High-Dose 0.5 ml - IM (Preservative Free) FLUMIST- intranasal REMEMBER: If patient is less than 9 years of age and this is the first vaccine of Influenza to be received in any flu season, they should receive a second dose in one months time. Mare River III MD 09/03/2018 3:47 PM Signed SUBJECTIVE: This is a 57 year old female that is here today for 1. liver bx report reviewed. Severe steatosis w/o fibrosis. She has on-going pain RUQ. To see Dr Zuñiga. Dec. appetite but no wt loss because of fatigue and no exercise. 2. hypertension-has stopped metoprolol and lasix. 3. has not been taking her meds consistently. Meds reviewed 4. lots of stress--though son and d-in-law have left the house 5. wants to restart chantix to quit smoking 08/30/2018 ?6:02 PM - Interface, Results II Results Specimen originated from [facility] Specimen #: [id number] Submitting Physician: ALEXUS WEBSTER MD FINAL DIAGNOSIS Liver, biopsy ?Severe steatosis without fibrosis. - See comment. TP/glw 08/30/2018 COMMENT The lobular architecture is intact. The portal tracts harbor their usual structures with intact intralobular bile ducts and portal vasculature. There is no significant portal inflammation. The lobules demonstrate severe steatosis (70%) without any definitive ballooned hepatocytes. No Litzy hyaline deposition is seen. ?The lobules demonstrate mild inflammation. Central veins are patent and uninflamed. There is no cholestasis or granulomatous inflammation. PAS after diastase shows no alpha- 1 antitrypsin inclusions. Trichrome stain highlights no fibrosis. Iron stain is negative for stainable iron. ?Trichrome highlights no definite fibrosis. NAFLD Activity Score (JEMIMA): Steatosis: 3 (>66%) Lobular inflammation (foci per 20x field): 1(<2) Hepatocyte balloonin (none), Total Score: 4/8. Stage: 0 (none) Other features: None Litzy hyaline: Negative Other forms of chronic liver disease: None Reference: Tsering Egan, et al. Hepatology 41(6):1313- 21, 2004. Wei Flynn M.D. (Electronic Signature) SPECIMEN SUBMITTED A: LIVER, BIOPSY ? CLINICAL DATA FATTY LIVER SUGGESTED ON MRI, LMP: NA GROSS DESCRIPTION A. Received in formalin are two segments of cylindrical tissue aggregating to 1.8 x 0.2 x 0.1 cm, hidalgo and of a soft consistency. Totally submitted in formalin in one cassette. Gross examination performed at [facility], [address] [place] [address] 08/27/2018 3:36:16 PM Date of Report: 08/30/2018 Date of Procedure: 08/27/2018 Date of Receipt: 08/27/2018 Submitted by: ALEXUS WEBSTER MD Location: [facility] Diagnostic interpretation performed at [address], PAST MEDICAL HISTORY Diagnosis Date - ASHD (arteriosclerotic heart disease) 10/14/2011 - Bandemia 01/29/2018 - Cervical disc disorder at C4-C5 level with radiculopathy - Cocaine substance abuse ([facility]) 2003 - COPD (chronic obstructive pulmonary disease) ([facility]) - Degenerative disc disease, cervical 2010 - Depression 2010 - Dysmetabolic syndrome X 01/21/2011 - Dyspnea on exertion - Erosive esophagitis 09/04/2014 - Esophageal reflux Gastroesophageal reflux - Essential hypertension, benign 09/09/2010 no meds currently 03/26 - Fibrocystic breast changes, bilateral 01/28/2017 - Hyperlipidemia LDL goal < 70 10/14/2011 - Migraine headache 01/23/2012 - Myalgia - Nodule of right lung 03/02/2018 02/09/18: 5 mm to recheck in 1 yr - Non morbid obesity due to excess calories 08/29/2016 - Obstructive sleep apnea - Osteoporosis 03/13/2011 - Other cervical disc displacement at C4-C5 level - Other intervertebral disc displacement, lumbar region - Other muscle spasm - Other specified dorsopathies, lumbosacral region - Peptic ulcer, unspecified site, unspecified as acute or chronic, without mention of hemorrhage, perforation, or obstruction Peptic ulcer disease - Spinal stenosis, cervical region - Spondylosis without myelopathy or radiculopathy, cervical region - Steatosis of liver 07/30/2018 - Tobacco abuse 01/23/2012 - Trigeminal neuralgia 12/29/2013 - Type 2 diabetes mellitus (HCC) 07/15/2018 - Vitamin D deficiency 03/19/2011 Current Outpatient Prescriptions on File Prior to Visit: levocetirizine dihydrochloride (XYZAL ORAL) Take by mouth as needed. morphine SR (MS CONTIN, ORAMORPH SR) 15 mg 12 hr tablet Take 15 mg by mouth twice daily. sucralfate (CARAFATE) 1 gram tablet Take at least 30 minutes before eating, and again before bed, if needed. colestipol (COLESTID) 1 gram tablet Take 2 tablets by mouth once daily. ondansetron orally disintegrating (ZOFRAN ODT) 4 mg disintegrating tablet Take 1 tablet by mouth every 6 hours as needed for Nausea/Vomiting. buPROPion SR (WELLBUTRIN SR) 150 mg 12 hr tablet Take 1 tablet by mouth twice daily. fluticasone-vilanterol (BREO ELLIPTA) 200-25 mcg/dose inhaler Inhale 1 Inhalation as instructed once daily. Inhale one puff once daily. DO NOT CLICK OPEN UNTIL READY FOR DOSE albuterol (PROVENTIL) 2.5 mg /3 mL (0.083 %) nebulizer solution Use 3 mL via nebulizer every 4 hours as needed for Wheezing/Shortness of Breath. Use over 5-15minutes. albuterol HFA (VENTOLIN HFA) 90 mcg/actuation inhaler Inhale 2 Puffs as instructed every 4 hours as needed for Wheezing/Shortness of Breath. coenzyme Q10 (COQ-10) 100 mg cap capsule Take 1 capsule by mouth twice daily. atorvastatin (LIPITOR) 80 mg tablet Take 1 tablet by mouth once daily. nitroglycerin sublingual (NITROQUICK) 0.4 mg SL tablet Dissolve 1 tablet under the tongue as needed. FOR CHEST PAIN. IF NO RELIEF CALL 911 metoprolol succinate ER (TOPROL XL) 50 mg 24 hr tablet Take 1 tablet by mouth once daily. loratadine (CLARITIN) 10 mg tablet Take 1 tablet by mouth once daily. pregabalin (LYRICA) 100 mg capsule Take 1 capsule by mouth three times daily. pantoprazole DR (PROTONIX) 40 mg tablet Take 1 tablet by mouth once daily. (Patient taking differently: Take 40 mg by mouth as needed.) No current facility-administered medications on file prior to visit. FAMILY HISTORY Problem Relation Age of Onset - Heart Father 35 - Cancer Father - Cancer Mother - Breast Cancer Paternal Grandmother - Breast Cancer Paternal Aunt - Cancer Maternal Uncle LUNG - Heart Maternal Grandmother Social History Substance Use Topics - Smoking status: Current Every Day Smoker Packs/day: 0.25 Years: 45.00 Types: Cigarettes - Smokeless tobacco: Never Used Comment: trying to quit - Alcohol use No BP 187/115 Pulse 108 Resp 16 Ht 157.5 cm (5' 2) Wt 84.8 kg (187 lb) BMI 34.20 kg/m? . OBJECTIVE: APPEARANCE Well appearing, alert, in no acute distress, well- hydrated, well nourished., Obese and Appearance: well dressed well groomed, cooperative and pleasant Behavior: good eye contact Speech: fluent and coherent Mood: euthymic Affect: appropriate Perceptions: none Thought process: goal directed Thought Content: normal Intelligence level: normal Insight: good Judgment: good ASSESSMENT: fatty liver disease with severe steatosis hypertension--not at goal ch anxiety/depression tobacco use disorder PLAN: healthy diet and regular exercise resume metoprolol succ ER 50 mg daily switch from atorvastatin to rosuvastatin 5 mg daily for lipids lasix 20 mg once/day as needed for edema keep appt with DR Yogesh rogers as directed follow bp ARBEN Lantigua MD, III MD 09/03/2018 2:55 PM Signed PLAN: healthy diet and regular exercise resume metoprolol succ ER 50 mg daily switch from atorvastatin to rosuvastatin 5 mg daily for lipids lasix 20 mg once/day as needed for edema keep appt with DR Yogesh rogers as directed Mare River III MD Referring Provider: SELF [200] Allergies As of Date: 09/03/2018 Noted Allergy Reaction LATEX 10/21/2013 2 - Rash DARVOCET A500 (PROPOXYPHENE N-CORRIE*08/05/2017 9 - Itching DARVOCET-N 100 (PROPOXYPHENE N-AC*12/11/2009 9 - Itching DILAUDID (HYDROMORPHONE HCL) 08/05/2017 14 - Other: See Comments Comments: Burning sensation over entire body EES [Other] 11/24/2005 HEPARIN ANALOGUES 06/09/2013 4 - Hives 7 - Swelling KEFLEX (CEPHALEXIN) 08/05/2017 7 - Swelling 9 - Itching 12 - Shortness of Breath LEVAQUIN (LEVOFLOXACIN) 11/10/2013 9 - Itching LISINOPRIL 01/17/2015 14 - Other: See Comments Comments: flushing OXYCODONE 08/05/2017 9 - Itching OXYCOTIN (OXYCODONE) 12/11/2009 4 - Hives 7 - Swelling 9 - Itching PENICILLIN 08/05/2017 10 - Anaphylaxis Comments: 4 years old PERCOCET (OXYCODONE-ACETAMINOPHEN)12/11/2009 9 - Itching POLYTRIM (POLYMYXIN B SULF-TRIMET*03/29/2015 7 - Swelling 9 - Itching SULFA (SULFONAMIDE ANTIBIOTICS) 11/24/2005 4 - Hives TEGRETOL (CARBAMAZEPINE) 06/04/2015 1 - Mental Status Change VIBRAMYCIN (DOXYCYCLINE CALCIUM) 08/05/2017 4 - Hives 9 - Itching VICODIN (HYDROCODONE-ACETAMINOPHE*11/24/2005 ADHESIVE TAPE (ROSINS) 03/03/2012 2 - Rash 9 - Itching Date Reviewed: 09/03/2018 Reviewed by: Bekah ([facility]) ISMAEL Senior - Fully Assessed Reason for Visit: Refill Request [94] Imm/Inj [58] Cmt: Flu Vaccine Reason For Visit History Recorded Primary Visit Diagnosis:Hepatic steatosis determined by biopsy of liver [K76.0] Other Visit Diagnoses:Need for vaccination [Z23] Essential hypertension, benign [I10] Hyperlipidemia with target LDL less than 70 [E78.5] Tobacco abuse [Z72.0] ASHD (arteriosclerotic heart disease) [I25.10] Fatty liver disease, nonalcoholic [K76.0] Moderate episode of recurrent major depressive disorder (HCC) [F33.1] Anxiety and depression [F41.9, F32.9] Order(s):INFLUENZA VACCINE QUADRIVALENT AGE 3 YRS PLUS + IM [53495SLS] Order #: [id number] rosuvastatin (CRESTOR) 5 mg tabletTake 1 tablet by mouth daily at bedtime.Disp: 30 tabletRfl: 11 metoprolol succinate ER (TOPROL XL) 50 mg 24 hr tabletTake 1 tablet by mouth once daily.Disp: 30 tabletRfl: 11 furosemide (LASIX) 20 mg tabletTake 1 tablet by mouth once daily.Disp: 30 tabletRfl: 5 Prescriptions as of 09/03/2018 Sig: PANTOPRAZOLE 40 MG TABLET,DEL* Take 1 tablet by mouth once d* Patient taking differently: Take 40 mg by mouth as needed. ROSUVASTATIN 5 MG TABLET Take 1 tablet by mouth daily * METOPROLOL SUCCINATE ER 50 MG* Take 1 tablet by mouth once d* FUROSEMIDE 20 MG TABLET Take 1 tablet by mouth once d* XYZAL ORAL Take by mouth as needed. MORPHINE ER 15 MG TABLET,EXTE* Take 15 mg by mouth twice octavio* SUCRALFATE 1 GRAM TABLET Take at least 30 minutes befo* COLESTIPOL 1 GRAM TABLET Take 2 tablets by mouth once * ONDANSETRON 4 MG DISINTEGRATI* Take 1 tablet by mouth every * BUPROPION HCL SR 150 MG TABLE* Take 1 tablet by mouth twice * FLUTICASONE 200 MCG-VILANTERO* Inhale 1 Inhalation as instru* ALBUTEROL SULFATE 2.5 MG/3 ML* Use 3 mL via nebulizer every * ALBUTEROL SULFATE HFA 90 MCG/* Inhale 2 Puffs as instructed * COENZYME Q10 100 MG CAPSULE Take 1 capsule by mouth twice* NITROGLYCERIN 0.4 MG SUBLINGU* Dissolve 1 tablet under the t* LORATADINE 10 MG TABLET Take 1 tablet by mouth once d* PREGABALIN 100 MG CAPSULE Take 1 capsule by mouth three* Problem List As Of Date 09/03/2018 Noted Resolved Cocaine substance abuse [F14.10] 09/04/2014 Essential hypertension, benign [I10] INVALID FOR* Priority: F More... Degenerative disc disease, cervical [M50.30] INVALID FOR* Priority: D More... Depression [F32.9] INVALID FOR* Priority: E More... Osteoporosis [M81.0] INVALID FOR* Cervical disc disorder [M50.90] INVALID FOR* Vitamin D deficiency [E55.9] INVALID FOR* Hyperlipidemia with target LDL less than 70 [E7*INVALID FOR* Priority: G More... ASHD (arteriosclerotic heart disease) [I25.10] INVALID FOR* More... Chest pain [R07.9] INVALID FOR*09/04/2014 Priority: B More... Tobacco abuse [Z72.0] INVALID FOR* Priority: I More... Tobacco abuse counseling [Z71.6] INVALID FOR* Migraine headache [G43.909] INVALID FOR* Priority: H More... SUMMARY [V999.95] INVALID FOR* Priority: A More... Asthma [J45.909] INVALID FOR* Priority: C More... Elevated gastrin level [E16.4] INVALID FOR* Flushing [R23.2] INVALID FOR*09/03/2018 Erosive esophagitis [K22.10] INVALID FOR* Spontaneous ecchymoses [R23.3] INVALID FOR* Lumbar back pain with radiculopathy affecting l*INVALID FOR* Arteriosclerosis of carotid artery [I65.29] INVALID FOR* MELYSSA (obstructive sleep apnea) [G47.33] INVALID FOR* Trigeminal neuralgia of right side of face [G50*INVALID FOR* Obesity (BMI 30-39.9) [E66.9] INVALID FOR* Grief [F43.21] INVALID FOR* Other seasonal allergic rhinitis [J30.2] INVALID FOR* Anxiety and depression [F41.9, F32.9] INVALID FOR* Sense of smell altered [R43.9] INVALID FOR* Nonintractable headache [R51] INVALID FOR* Non morbid obesity due to excess calories [E66.*INVALID FOR* Fibrocystic breast changes, bilateral [N60.11, *INVALID FOR* Orthostatic hypotension [I95.1] INVALID FOR* Moderate episode of recurrent major depressive *INVALID FOR* 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 RUQ pain [R10.11] INVALID FOR* More... More... Steatosis of liver [K76.0] INVALID FOR* Fatty liver disease, nonalcoholic [K76.0] INVALID FOR* Other instructions from your clinician: PLAN: healthy diet and regular exercise resume metoprolol succ ER 50 mg daily switch from atorvastatin to rosuvastatin 5 mg daily for lipids lasix 20 mg once/day as needed for edema keep appt with DR Yogesh rogers as directed Mare River, III Prescriptions ordered this encounter Disp Refills Start End ROSUVASTATIN 5 MG TABLET 30 t* 11 09/03/2018 Route: ORAL Sig: Take 1 tablet by mouth daily at bedtime. METOPROLOL SUCCINATE ER 50 MG TABLET* 30 t* 11 09/03/2018 Route: ORAL Sig: Take 1 tablet by mouth once daily. FUROSEMIDE 20 MG TABLET 30 t* 5 09/03/2018 Route: ORAL Sig: Take 1 tablet by mouth once daily. Medications Discontinued During This Encounter atorvastatin (LIPITOR) 80 mg tablet 90 t* 3 01/19/2018 09/03/2018 Route: ORAL Sig: Take 1 tablet by mouth once daily. Disc: Clinical Decision metoprolol succinate ER (TOPROL XL) * 30 t* 12 01/18/2018 09/03/2018 Route: ORAL Sig: Take 1 tablet by mouth once daily. Disc: Reason for discontinue is not on file. Encounter Status:Closed by MARE RIVER III, MD on 09/03/18 NURSING PROG Observed: 08/27/2018 Status: COMPLETED Source: [place] 12:26 PM [facility] REPOSIT[facility] ID: [id number] Author: Tasneem King) MURALI Ramos Service: Nursing Author Type: Registered Nurse Type: Nursing Progress Note Filed: 08/27/2018 12:28 PM Note Text: 1200 Iv removed Discharge instructions reviewed with pt and friend Dressing intact on upper abdomen Up to br Steady when up Voided Medications not reconciled in homegoing instructions Dr webster updated Stated she will reconcile meds but pt can be discharged and to continue all meds as taken preop 1219 Discharged by wheelchair PT ED Observed: 08/27/2018 Status: COMPLETED Source: [place] 12:25 PM CLINIC OTHER [place] REPOSITORY [facility] ID: [id number] Author: Tasneem King) MRUALI Ramos Service: Nursing Author Type: Registered Nurse Type: Patient Education Filed: 08/27/2018 12:25 PM Note Text: PRE OP LEARNING ASSESSMENT PROCEDURE/SURGERY: liver biopsy READINESS TO LEARN COGNITIVE ABILITY: Alert and oriented MOTIVATION TO LEARN: Interested FAMILY SUPPORT: Unable to assess - Family not present PATIENT LEARNS BEST BY: Verbal Instruction FACTORS AFFECTING LEARNING: None PHYSICAL LIMITATIONS AFFECTING LEARNING: None Electronically Signed By: Tasneem Ramos RN In Department: [facility] RADIOLOGY PT ED Observed: 08/27/2018 Status: COMPLETED Source: [place] 12:25 PM [facility] OTHER [place] REPOSITORY [facility] ID: [id number] Author: Tasneem (Rn) MURALI Ramos Service: Nursing Author Type: Registered Nurse Type: Patient Education Filed: 08/27/2018 12:25 PM Note Text: POST OP LEARNING RESPONSE INSTRUCTION PROVIDED TO: Patient and Patient and friend/other METHOD OF INSTRUCTION: Verbal instruction PATIENT / FAMILY RESPONSE: Information received as demonstrated by interest and questions FOLLOW-UP PLAN: Patient instructed to call with any further issues SUPPLEMENTAL MATERIAL: Post op discharge instructions REFERRAL (RECOMMENDATION): None Electronically Signed By: Tasneem Ramos RN In Department: [facility] RADIOLOGY SURGICAL PATHOLOGY Observed: 08/27/2018 Status: F Source: [place] 10:45 AM [facility] REPOSITORY Specimen originated from [facility] Specimen #: [id number] Submitting Physician: ALEXUS WEBSTER MD FINAL DIAGNOSIS Liver, biopsy Severe steatosis without fibrosis. - See comment. TP/glw 08/30/2018 COMMENT The lobular architecture is intact. The portal tracts harbor their usual structures with intact intralobular bile ducts and portal vasculature. There is no significant portal inflammation. The lobules demonstrate severe steatosis (70%) without any definitive ballooned hepatocytes. No Litzy hyaline deposition is seen. The lobules demonstrate mild inflammation. Central veins are patent and uninflamed. There is no cholestasis or granulomatous inflammation. PAS after diastase shows no alpha- 1 antitrypsin inclusions. Trichrome stain highlights no fibrosis. Iron stain is negative for stainable iron. Trichrome highlights no definite fibrosis. NAFLD Activity Score (JEMIMA): Steatosis: 3 (>66%) Lobular inflammation (foci per 20x field): 1(<2) Hepatocyte balloonin (none), Total Score: 4/8. Stage: 0 (none) Other features: None Litzy hyaline: Negative Other forms of chronic liver disease: None Reference: Lyn BALL, Tsering EM, et al. Hepatology 41(6):1313- 21, 2005. Wei Flynn M.D. (Electronic Signature) SPECIMEN SUBMITTED A: LIVER, BIOPSY CLINICAL DATA FATTY LIVER SUGGESTED ON MRI, LMP: NA GROSS DESCRIPTION A. Received in formalin are two segments of cylindrical tissue aggregating to 1.8 x 0.2 x 0.1 cm, hidalgo and of a soft consistency. Totally submitted in formalin in one cassette. Gross examination performed at [facility], [address] [place] [address] 08/27/2018 3:36:16 PM Date of Report: 08/30/2018 Date of Procedure: 08/27/2018 Date of Receipt: 08/27/2018 Submitted by: ALEXUS WEBSTER MD Location: [facility] Diagnostic interpretation performed at [place] [address]. Performed By: #### PATHS #### [employer] [place] [address] [phone] BRIEF OP NOT Observed: 08/27/2018 Status: COMPLETED Source: [place] 10:31 AM [facility] OTHER CAMPUS REPOSITORY O ID: [id number] Author: Alexus Webster Service: Radiology Author Type: Physician Type: Brief Op Note Filed: 08/27/2018 10:32 AM Note Text: BRIEF OPERATIVE / PROCEDURE NOTE LOG ID: [id number] SURGERY/PROCEDURE DATE: 08/27/2018 INCISION/PROCEDURE START TIME: 10:04 AM INCISION CLOSE/PROCEDURE END TIME: 10:08 AM SURGEON(S)/PROCEDURALIST(S) AND CLEANING SPECIALIST(S): Surgeon(s) and Role: * Alexus Webster - Primary No Additional Staff SURGERY/PROCEDURE(S): CT guided liver biopsy ANESTHESIA: Procedural Sedation FINDINGS: unremarkable ESTIMATED BLOOD LOSS: 0 ml SPECIMENS: 2 core biopsies obtained. COMPLICATIONS: None PRE-OP/PRE-PROCEDURE DIAGNOSIS: fatty liver POST-OP/POST-PROCEDURE DIAGNOSIS: * No post-op diagnosis entered * LEONIE SIGNATURE: Alexus Webster MD PATIENT NAME: Britney Marie DATE: August 27, 2018 TIME: 10:31 AM PAGER/CONTACT #: CT BIOPSY LIVER Observed: 08/27/2018 Status: F Source: [place] [facility] 10:20 AM [facility] OTHER CAMPUS REPOSITORY * * *Final Report* * * DATE OF EXAM: Aug 27 2018 10:20AM [facility] [place] [facility] [place] BIOPSY LIVER NEEDLE PERC / PROCEDURE REASON: LIVER BX * * * * Physician Interpretation * * * * PROCEDURE PERFORMED: CT GUIDED LIVER BIOPSY PRE-PROCEDURE DIAGNOSIS: Fatty liver POST-PROCEDURE DIAGNOSIS: Same as above INDICATION FOR PROCEDURE: The patient is a 57 years old Female who presents with abnormal LFTs and suggested fatty metamorphosis on MRI liver of 07/30/2018. CONSENT: The risks, benefits, treatment options, potential complications and personnel involved were discussed with the patient. All questions were answered and consent was obtained. The patient indicated she was willing to proceed. The staff physician personally verified consent. TIME OUT: A time out was performed immediately prior to procedure start with the nursing, anesthesia and interventional team, correctly identifying the patient name, date of , procedure, anatomy (including marking of site and side), patient position, procedure consent form, relevant diagnostic and radiology test results, antibiotic administration (when indicated), safety precautions, and procedure-specific equipment needs. RESULT: PROCEDURE: After performing the time out, the left hepatic lobe was localized under CT. skin entry site was prepped and draped in the usual sterile fashion. Under direct CT guidance, a 17 gauge trochar needle was advanced to the site of interest. Through the trochar, 2 passes were made into the site of interest using an 18 gauge cutting needle. Local anesthesia was achieved utilizing 8 cc 2% percent lidocaine. Vital signs were monitored by the nurse. PATIENT MONITORING: I personally supervised and directed an independent trained observer who assisted in monitoring the patient?s level of consciousness and physiological status throughout the procedure. COMPLICATIONS: None SIGN-OUT DISCUSSION: Completed ESTIMATED BLOOD LOSS: None CONTRAST: None CT ABDOMEN AND PELVIS RADIATION DOSE: Dose-length product (DLP) = 840 mGy*cm. SPECIMENS: 2 core biopsy specimen(s) was/were placed in formalin and sent for pathology evaluation. BIOPSY DEVICE: 18 gauge Bard core biopsy needle. IMPRESSION: CT GUIDED BIOPSY DESCRIBED v 11/18/16 procedure Electrical Test Technician: PSCB Transcribe Date/Time: Aug 27 2018 10:57A Dictated by : ALEXUS WEBSTER MD This examination was interpreted and the report reviewed and electronically signed by: ALEXUS WEBSTER MD on Aug 27 2018 10:58AM EST [id number] HISTORY PHYSICAL Observed: 08/27/2018 Status: COMPLETED Source: [place] 9:47 AM [facility] OTHER CAMPUS REPOSITORY HNO ID: [id number] Author: Alexus Webster Service: Radiology Author Type: Physician Type: HANDP Filed: 08/27/2018 9:48 AM Note Text: PROCEDURAL SEDATION HISTORY AND PHYSICAL EXAM SERVICE DATE: 08/27/2018 SERVICE TIME: 9:47 AM Subjective HPI: This is a 57 year old female who presents with suggestion of fatty liver on prior MRI liver. Radiology was consulted to perform image guided liver biopsy. PAST ANESTHESIA HISTORY: No history of adverse event PAST MEDICAL HISTORY Diagnosis Date - ASHD (arteriosclerotic heart disease) 10/14/2011 - Bandemia 01/29/2018 - Cervical disc disorder at C4-C5 level with radiculopathy - Cocaine substance abuse (HCC) 2003 - COPD (chronic obstructive pulmonary disease) (HCC) - Degenerative disc disease, cervical 2010 - Depression 2010 - Dysmetabolic syndrome X 01/21/2011 - Dyspnea on exertion - Erosive esophagitis 09/04/2014 - Esophageal reflux Gastroesophageal reflux - Essential hypertension, benign 09/09/2010 no meds currently 03/26 - Fibrocystic breast changes, bilateral 01/28/2017 - Hyperlipidemia LDL goal < 70 10/14/2011 - Migraine headache 01/23/2012 - Myalgia - Nodule of right lung 03/02/2018 02/09/18: 5 mm to recheck in 1 yr - Non morbid obesity due to excess calories 08/29/2016 - Obstructive sleep apnea - Osteoporosis 03/13/2011 - Other cervical disc displacement at C4-C5 level - Other intervertebral disc displacement, lumbar region - Other muscle spasm - Other specified dorsopathies, lumbosacral region - Peptic ulcer, unspecified site, unspecified as acute or chronic, without mention of hemorrhage, perforation, or obstruction Peptic ulcer disease - Spinal stenosis, cervical region - Spondylosis without myelopathy or radiculopathy, cervical region - Steatosis of liver 07/30/2018 - Tobacco abuse 01/23/2012 - Trigeminal neuralgia 12/29/2013 - Type 2 diabetes mellitus (HCC) 07/15/2018 - Vitamin D deficiency 03/19/2011 PAST SURGICAL HISTORY Procedure Laterality Date - ANTERIOR INTERBODY FUSION, CERVICAL 1992 - APPENDECTOMY 2004- - CHOLECYSTECTOMY about 2005- sludge - COLONOSCOP W/ OR W/O [facility] SPEC 04/30/2010 Dr. Rayshawn Shrestha - COLONOSCOP W/ OR W/O [facility] SPEC 08/10/13 Colonoscopy - COLONOSCOP W/ OR W/O [facility] SPEC 08/03/2018 Colonoscopy - EGD W/O OR W/BRUSH/WASH 08/10/13 EGD - EGD W/O OR W/BRUSH/WASH 08/03/2018 EGD - LAPAROSCOPY, SURGICAL, ESOPHAGOGAST 01-25-10 LAP KAMILA - LEFT HEART CATH,PERCUTANEOUS 12/17/11 Cardiac cath, L heart, see scanned report - Tonsilectomy - TUBAL LIGATION, - XR CERVICAL FUSION OR 1997 posterior fusion Prior to Admission medications as of 08/27/18 0836 Medication Sig Last Dose Taking levocetirizine dihydrochloride (XYZAL ORAL) Take by mouth as needed. 08/25/2018 Yes morphine SR (MS CONTIN, ORAMORPH SR) 15 mg 12 hr tablet Take 15 mg by mouth twice daily. 08/26/2018 at 2130 Yes colestipol (COLESTID) 1 gram tablet Take 2 tablets by mouth once daily. 08/26/2018 at 0900 Yes ondansetron orally disintegrating (ZOFRAN ODT) 4 mg disintegrating tablet Take 1 tablet by mouth every 6 hours as needed for Nausea/Vomiting. 08/26/2018 at 0900 Yes buPROPion SR (WELLBUTRIN SR) 150 mg 12 hr tablet Take 1 tablet by mouth twice daily. 08/26/2018 at 0900 Yes albuterol HFA (VENTOLIN HFA) 90 mcg/actuation inhaler Inhale 2 Puffs as instructed every 4 hours as needed for Wheezing/Shortness of Breath. 08/27/2018 at 0430 Yes coenzyme Q10 (COQ-10) 100 mg cap capsule Take 1 capsule by mouth twice daily. 08/25/2018 at Unknown time Yes metoprolol succinate ER (TOPROL XL) 50 mg 24 hr tablet Take 1 tablet by mouth once daily. 08/26/2018 at 1200 Yes sucralfate (CARAFATE) 1 gram tablet Take at least 30 minutes before eating, and again before bed, if needed. 08/25/2018 fluticasone-vilanterol (BREO ELLIPTA) 200-25 mcg/dose inhaler Inhale 1 Inhalation as instructed once daily. Inhale one puff once daily. DO NOT CLICK OPEN UNTIL READY FOR DOSE 08/25/2018 albuterol (PROVENTIL) 2.5 mg /3 mL (0.083 %) nebulizer solution Use 3 mL via nebulizer every 4 hours as needed for Wheezing/Shortness of Breath. Use over 5-15minutes. 08/25/2018 atorvastatin (LIPITOR) 80 mg tablet Take 1 tablet by mouth once daily. 08/25/2018 nitroglycerin sublingual (NITROQUICK) 0.4 mg SL tablet Dissolve 1 tablet under the tongue as needed. FOR CHEST PAIN. IF NO RELIEF CALL 911 months ago loratadine (CLARITIN) 10 mg tablet Take 1 tablet by mouth once daily. Unknown at Unknown time pregabalin (LYRICA) 100 mg capsule Take 1 capsule by mouth three times daily. 08/22/[address] (PROTONIX) 40 mg tablet Take 1 tablet by mouth once daily. Patient taking differently: Take 40 mg by mouth as needed. 08/20/2018 ALLERGIES Allergen Reactions - Latex Rash - Darvocet A500 [Prop* Itching - Darvocet-N 100 [Pro* Itching - Dilaudid [Hydromorp* Other: See Comments Burning sensation over entire body - Ees [Other] - Heparin Analogues Hives, Swelling - Keflex [Cephalexin] Swelling, Itching, Shortness of Breath - Levaquin [Levofloxa* Itching - Lisinopril Other: See Comments flushing - Oxycodone Itching - Oxycotin [Oxycodone] Hives, Swelling, Itching - Penicillin Anaphylaxis 4 years old - Percocet [Oxycodone* Itching - Polytrim [Polymyxin* Swelling, Itching - Sulfa (Sulfonamide * Hives - Tegretol [Carbamaze* Mental Status Change - Vibramycin [Doxycyc* Hives, Itching - Vicodin [Hydrocodon* - Adhesive Tape (Elizabeth* Rash, Itching Objective PHYSICAL EXAM: The remainder of the physical exam is noncontributory. AIRWAY: Airway Visualization of Uvula: Yes Mouth opening greater than 2 fingerbreadths: Yes Neck Full Range of Motion: Yes LUNGS: Lungs clear to auscultation, Good diaphragmatic excursion CARDIAC: Normal S1 and S2; no rubs, murmurs, or gallops Assessment/Plan ASA Class: ASA Class:: Patient with mild systemic disease Active Problems: * No active hospital problems. * Resolved Problems: * No resolved hospital problems. * Provisional Diagnosis/Treatment Plan: CT guided liver biopsy SEDATION GOAL: Moderate SIGNATURE: Alexus Webster MD PATIENT NAME: Britney Marie DATE: August 27, 2018 TIME: 9:47 AM PAGER: [phone] CBC Collected: 08/27/2018 Status: F Source: [place] 8:29 AM [facility] OTHER CAMPUS REPOSITORY TYPE CODE TESTS RESULT OUT OF REFERENCE UNITS RANGE LAB WBC 3.70-11.00 k/uL WBC 9.22 LAB RBC 3.90-5.20 m/uL RBC 4.58 LAB HGB 11.5-15.5 g/dL Hemoglobin 13.9 LAB HCT 36.0-46.0 % Hematocrit 39.7 LAB MCV 80.0-100.0 fL MCV 86.7 LAB MCH 26.0-34.0 pG MCH 30.3 LAB MCHC 30.5-36.0 g/dL MCHC 35.0 LAB RDWCV 11.5-15.0 % RDW-CV 12.8 LAB PLTCT 150-400 k/uL Platelet Count 314 LAB MPV 9.0-12.7 fL Low MPV 8.9 Performed By: #### CBC, PT #### [facility] [address] [facility] [phone] PROTIME Collected: 08/27/2018 Status: F Source: [place] 8:29 AM [facility] OTHER CAMPUS REPOSITORY TYPE CODE TESTS RESULT OUT OF RANGE REFERENCE UNITS LAB PSEC 9.7-13.0 sec Low PT Sec 9.5 LAB INR 0.9-1.3 PT INR 0.9 Result Comment: Vitamin K Antagonist (VKA) Therapeutic Range: INR 2 to 3 (Target INR of 2.5) Note: For patients treated with VKA drugs, such as warfarin, the [employer] 2012 Guideline recommends a therapeutic INR range of 2 to 3 (target INR of 2.5). This recommendation includes high-risk patients with antiphospholipid syndrome with previous arterial or venous thromboembolism, current-generation mechanical or bioprosthetic aortic heart valve replacement. Note: Patients with mechanical aortic valve replacement and additional risk factors for thromboembolic events (atrial fibrillation, previous thromboembolism, LV dysfunction, hypercoagulable conditions) or an older generation mechanical AVR (i.e., ball in-Cage) or any mechanical MVR should have a INR therapeutic range of 2.5 to 3.5 (target INR of 3). Guyatt GH, et al. Chest 2012, 141:7S-47S Ian RA, et al. [facility] 2017, 70: 252-289 Performed By: #### CBC, PT #### [facility] [address] [place] [address] CNOV Observed: 08/17/2018 Status: COMPLETED Source: [place] 7:50 AM [facility] REPOSITORY [facility] BRITNEY MARIE ([id number]) 1960 [address] [facility] Date Time Provider Department 08/17/18 7:50 AM JESSEE MOORE (CASSIDY) [facility] During your visit today, we recorded the following information about you: Pulse Blood pressure Weight Height 97/minute 127/77 85.3 kg 1.575 m Jessee Moore RN [employer]BOOTH USHER 08/17/2018 11:13 AM Signed Britney Marie a 57 year old female who is returning for follow up regarding nausea, globus, RUQ pain. I saw the patient in consultation on 07/14/18. That note has been reviewed. She reported nausea within 15 minutes of eating. She had underwent a CT earlier in the year: CT scan reviewed: 12/01/17 IMPRESSION: 12 mm hepatic hypodensity, not seen on the prior enhanced study. ?This could represent a hemangioma that was isodense to liver at the time of imaging on the prior study. ?However, a new lesion is not excluded. ?MRI is recommended. Borderline extrahepatic ductal dilatation, heart or than seen on the prior study. ?This can be evaluated on MRI as well. ? I ordered the MRI: MRI of the liver 07/30/18 IMPRESSION: The study is limited because the most inferior right lobe of the liver and the lower pole of both kidneys are not included on this examination. Extensive steatosis of the liver with focal 1 cm advanced steatosis in the medial segment of the left lobe of the liver inferiorly adjacent to the proximal ligament. 4 mm right hepatic cyst. The patient was seen by Dr. Mccoy for upper endoscopy and colonoscopy 08/03/18, with MAC. The procedure report has been reviewed and findings as follows: Findings: normal colon, normal egd except for tortuous distal esophagus FINAL DIAGNOSIS: A) COLON, RANDOM BIOPSIES - COLONIC MUCOSA WITH NO SIGNIFICANT HISTOPATHOLOGIC CHANGE. B) SMALL BOWEL, TERMINAL ILEUM, BIOPSY - SUPERFICIAL FRAGMENTS OF UNREMARKABLE SMALL BOWEL MUCOSA. C) DUODENUM, SECOND PORTION, BIOPSY - DUODENAL MUCOSA WITH NO SIGNIFICANT HISTOPATHOLOGIC CHANGE. D) STOMACH, ANTRUM, BIOPSY - REACTIVE GASTROPATHY. ?NEGATIVE FOR HELICOBACTER PYLORI (SEE NOTE). NOTE: ?Immunostain for H. pylori is negative. E) GE JUNCTION, BIOPSY - GLANDULAR MUCOSA WITH NO SIGNIFICANT HISTOPATHOLOGIC CHANGE (SEE NOTE). NOTE: ?An Alcian blue/PAS stain is negative for intestinal metaplasia. Squamous mucosa is not sampled. We have reviewed the procedure reports, pathology and MRI report. Presenting complaint: The patient presents today reporting that she takes pantoprazole daily. Using Zofran up to two or three times a day. She tells me if I don't eat at all I don't have to use it. Taking the Questran when she eats. We discussed colestipol. We discuss adding Carafate. She tells me that she has been on that in the past. She is willing to try it again. anything to help me feel better. The patient tells me that she has written down all her symptoms. She has compared the list to the symptoms of fatty liver. She is concerned since she seems to have all but 3 of the listed symptoms (the cirrhosis, easy bruising and jaundice). I have explained that the next step will be a liver biopsy. We will get that set up today, and have her see Dr. Zuñiga to review the results. She is agreeable. She tells me that she has a friend who is a retired RN that will go to appointments with her. The patient is reporting daily headaches. She has stopped using Tylenol. She has to clear any prescriptions with her pain management provider. She sees him tomorrow. I have referred her to Dr. River for headache management. REVIEW OF SYSTEMS: GENERAL: No weight loss, malaise or fevers RESPIRATORY: Sees Dr. Manzanares. Studies done CARDIOVASCULAR: Sees Dr. Vargas. HTN and ASHD. GI: The patient states that her appetite has been poor due to the stomach pain. She does not get hungry. There has been some nausea, no recent vomiting. She admits to occasional dysphagia and denies odynophagia. There has been indigestion without heartburn. There has been regurgitation. Bowel habits have been irregular. There has been diarrhea. There has been constipation. The patient denies rectal bleeding. There has not been melena. Daily abdominal pain that is located in the right upper quadrant. PSYCH: Positive for a history of depression: HEMATOLOGY/LYMPHOLOGY Negative for prolonged bleeding, bruising easily or swollen nodes ENDOCRINE: Negative for cold or heat intolerance, polyuria, polydipsia and goiter NEURO: Migraine headaches All other reviewed and negative other than HPI. PAST MEDICAL HISTORY Diagnosis Date - ASHD (arteriosclerotic heart disease) 10/14/2011 - Bandemia 01/29/2018 - Cervical disc disorder at C4-C5 level with radiculopathy - Cocaine substance abuse (HCC) 2003 - COPD (chronic obstructive pulmonary disease) ([facility]) - Degenerative disc disease, cervical 2010 - Depression 2010 - Dysmetabolic syndrome X 01/21/2011 - Dyspnea on exertion - Erosive esophagitis 09/04/2014 - Esophageal reflux Gastroesophageal reflux - Essential hypertension, benign 09/09/2010 no meds currently 03/26 - Fibrocystic breast changes, bilateral 01/28/2017 - Hyperlipidemia LDL goal < 70 10/14/2011 - Migraine headache 01/23/2012 - Myalgia - Nodule of right lung 03/02/2018 02/09/18: 5 mm to recheck in 1 yr - Non morbid obesity due to excess calories 08/29/2016 - Obstructive sleep apnea - Osteoporosis 03/13/2011 - Other cervical disc displacement at C4-C5 level - Other intervertebral disc displacement, lumbar region - Other muscle spasm - Other specified dorsopathies, lumbosacral region - Peptic ulcer, unspecified site, unspecified as acute or chronic, without mention of hemorrhage, perforation, or obstruction Peptic ulcer disease - Spinal stenosis, cervical region - Spondylosis without myelopathy or radiculopathy, cervical region - Steatosis of liver 07/30/2018 - Tobacco abuse 01/23/2012 - Trigeminal neuralgia 12/29/2013 - Type 2 diabetes mellitus (HCC) 07/15/2018 - Vitamin D deficiency 03/19/2011 PAST SURGICAL HISTORY Procedure Laterality Date - ANTERIOR INTERBODY FUSION, CERVICAL 1992 - APPENDECTOMY 2004- - CHOLECYSTECTOMY about 2005- sludge - COLONOSCOP W/ OR W/O [facility] SPEC 04/30/2010 Dr. Rayshawn Shrestha - COLONOSCOP W/ OR W/O [facility] SPEC 08/10/13 Colonoscopy - COLONOSCOP W/ OR W/O [facility] SPEC 08/03/2018 Colonoscopy - EGD W/O OR W/BRUSH/WASH 08/10/13 EGD - EGD W/O OR W/BRUSH/WASH 08/03/2018 EGD - LAPAROSCOPY, SURGICAL, ESOPHAGOGAST 01-25-10 LAP [facility] - LEFT HEART CATH,PERCUTANEOUS 12/17/11 Cardiac cath, L heart, see scanned report - Tonsilectomy - TUBAL LIGATION, - XR CERVICAL FUSION OR 1998 posterior fusion FAMILY HISTORY Problem Relation Age of Onset - Heart Father 35 - Cancer Father - Cancer Mother - Breast Cancer Paternal Grandmother - Breast Cancer Paternal Aunt - Cancer Maternal Uncle LUNG - Heart Maternal Grandmother Current Outpatient Prescriptions: buPROPion SR (WELLBUTRIN SR) 150 mg 12 hr tablet Take 1 tablet by mouth twice daily. Disp: 60 tablet Rfl: 11 furosemide (LASIX) 20 mg tablet Take 1 tablet by mouth once daily. Disp: 30 tablet Rfl: 1 [place]-3 Fatty Acids (FISH OIL) 500 mg cap Take 2 capsules by mouth twice daily. Disp: 120 capsule Rfl: 11 tolterodine ER (DETROL LA) 4 mg 24 hr capsule Take 1 capsule by mouth once daily. Disp: 30 capsule Rfl: 11 cholestyramine (QUESTRAN) 4 gram packet Take 1 Packet by mouth three times daily with meals. Disp: 60 Packet Rfl: 5 fluticasone-vilanterol (BREO ELLIPTA) 200-25 mcg/dose inhaler Inhale 1 Inhalation as instructed once daily. Inhale one puff once daily. DO NOT CLICK OPEN UNTIL READY FOR DOSE Disp: 28 Each Rfl: 11 ondansetron orally disintegrating (ZOFRAN ODT) 4 mg disintegrating tablet Take 1 tablet by mouth every 6 hours as needed for Nausea/Vomiting. Disp: 20 tablet Rfl: 1 albuterol (PROVENTIL) 2.5 mg /3 mL (0.083 %) nebulizer solution Use 3 mL via nebulizer every 4 hours as needed for Wheezing/Shortness of Breath. Use over 5-15minutes. Disp: 1 Package Rfl: 0 albuterol HFA (VENTOLIN HFA) 90 mcg/actuation inhaler Inhale 2 Puffs as instructed every 4 hours as needed for Wheezing/Shortness of Breath. Disp: 1 Inhaler Rfl: 0 coenzyme Q10 (COQ-10) 100 mg cap capsule Take 1 capsule by mouth twice daily. Disp: 30 capsule Rfl: 11 atorvastatin (LIPITOR) 80 mg tablet Take 1 tablet by mouth once daily. Disp: 90 tablet Rfl: 3 nitroglycerin sublingual (NITROQUICK) 0.4 mg SL tablet Dissolve 1 tablet under the tongue as needed. FOR CHEST PAIN. IF NO RELIEF CALL 911 Disp: 1 Bottle of 25 Rfl: 3 metoprolol succinate ER (TOPROL XL) 50 mg 24 hr tablet Take 1 tablet by mouth once daily. Disp: 30 tablet Rfl: 12 loratadine (CLARITIN) 10 mg tablet Take 1 tablet by mouth once daily. Disp: 30 tablet Rfl: 2 pregabalin (LYRICA) 100 mg capsule Take 1 capsule by mouth three times daily. Disp: Rfl: albuterol HFA (PROAIR HFA) 90 mcg/actuation inhaler Inhale 2 Puffs as instructed every 4 hours as needed. Disp: 1 Inhaler Rfl: 0 alendronate (FOSAMAX) 70 mg tablet Take 1 tablet by mouth once each week. Take with a full glass of water, on an empty stomach; do NOT lie down for 30minutes. (Patient not taking: Reported on 08/02/2018 ) Disp: 4 tablet Rfl: [address] (PROTONIX) 40 mg tablet Take 1 tablet by mouth once daily. (Patient taking differently: Take 40 mg by mouth as needed.) Disp: 90 tablet Rfl: 3 No current facility-administered medications for this visit. SOCIAL HISTORY: Patient is . She smokes few cigarretes per day and reports her alcohol use as never. PHYSICAL EXAMINATION: General Appearance: Tearful, alert, in no acute distress, well-hydrated, well nourished. Skin: Skin color, texture, turgor normal, no suspicious rashes or lesions. Head: Normocephalic, no masses, lesions or abnormalities. Eyes: Anicteric sclera. Pupils are equally round and reactive to light. Extraocular movements are intact. . Neck: Supple, no adenopathy; thyroid symmetric, normal size, no bruits. Lungs: Lungs clear to auscultation. No wheezing, rhonchi, rales. Heart: RRR without murmur, gallop, or rubs. No ectopy. Abdomen: Bowel sounds normal. Abdomen soft, tenderness to mild palpation RUQ and epigastric region. New tenderness LUQ. No masses, organomegaly. Extremities: No deformities. Trace edema of fingers and ankles. Peripheral Pulses: Normal. Neurologic: Gait normal.Sensation grossly intact. Impression: steatosis of the liver. Need to determine POLANCO. Plan: Liver biopsy with follow up appointment with Yogesh, then I will assist with local care. Refill Zofran. Start Carafate. We'll see if her insurance will cover colestipol instead of the cholestyramine. She agrees with this plan. I have personally interviewed and examined this patient. I have reviewed the information that the MA entered for this encounter. I spent 35 minutes in the visit, with greater than 50% of the total [id number] time of the visit in counseling and coordination of care. Jessee Moore RN [employer].ANIKET Moore RN APRN.ANIKET 08/17/2018 8:36 AM Signed Start the carafate, taking it at least 30 minutes before eating, so that it can coat the stomach. We will see if the insurance cover the colestipol pill instead of the grainy powder. Please follow the instructions for the test that looks at your liver (the liver biopsy) It will take a few days after the test for us to get the results. Call [phone], and ask to speak to a nurse in GI, if you have any questions or concerns in the mean time. We will have you see Dr. Zuñiga regarding your liver. Than, I will assist with your care. Referring Provider: JESSEE MOORE (TRAIN STATION AGENT) [[id number]] Allergies As of Date: 08/17/2018 Noted Allergy Reaction LATEX 10/21/2013 2 - Rash DARVOCET A500 (PROPOXYPHENE N-CORRIE*08/05/2017 9 - Itching DARVOCET-N 100 (PROPOXYPHENE N-AC*12/11/2009 9 - Itching DILAUDID (HYDROMORPHONE HCL) 08/05/2017 14 - Other: See Comments Comments: Burning sensation over entire body EES [Other] 11/24/2005 HEPARIN ANALOGUES 06/09/2013 4 - Hives 7 - Swelling KEFLEX (CEPHALEXIN) 08/05/2017 7 - Swelling 9 - Itching 12 - Shortness of Breath LEVAQUIN (LEVOFLOXACIN) 11/10/2013 9 - Itching LISINOPRIL 01/17/2015 14 - Other: See Comments Comments: flushing OXYCODONE 08/05/2017 9 - Itching OXYCOTIN (OXYCODONE) 12/11/2009 4 - Hives 7 - Swelling 9 - Itching PENICILLIN 08/05/2017 10 - Anaphylaxis Comments: 4 years old PERCOCET (OXYCODONE-ACETAMINOPHEN)12/11/2009 9 - Itching POLYTRIM (POLYMYXIN B SULF-TRIMET*03/29/2015 7 - Swelling 9 - Itching SULFA (SULFONAMIDE ANTIBIOTICS) 11/24/2005 4 - Hives TEGRETOL (CARBAMAZEPINE) 06/04/2015 1 - Mental Status Change VIBRAMYCIN (DOXYCYCLINE CALCIUM) 08/05/2017 4 - Hives 9 - Itching VICODIN (HYDROCODONE-ACETAMINOPHE*11/24/2005 ADHESIVE TAPE (ROSINS) 03/03/2012 2 - Rash 9 - Itching Date Reviewed: 08/17/2018 Reviewed by: Davina Hunter Ma - Fully Assessed Reason for Visit: Surgical Followup [104] Primary Visit Diagnosis:Steatosis of liver [K76.0] Other Visit Diagnoses:Abnormal MRI, liver [R93.2] Comment:07/30/18 Nausea [R11.0] Bilateral upper abdominal pain [R10.11, R10.12] Hepatic cyst [K76.89] Order(s):sucralfate (CARAFATE) 1 gram tabletTake at least 30 minutes before eating, and again before bed, if needed.Disp: 120 tabletRfl: 2 colestipol (COLESTID) 1 gram tabletTake 2 tablets by mouth once daily.Disp: 60 tabletRfl: 2 ondansetron orally disintegrating (ZOFRAN ODT) 4 mg disintegrating tabletTake 1 tablet by mouth every 6 hours as needed for Nausea/Vomiting.Disp: 20 tabletRfl: 2 IMAGING GUIDED BIOPSY LIVER [[id number]] Order #: [id number] Prescriptions as of 08/17/2018 Sig: SUCRALFATE 1 GRAM TABLET Take at least 30 minutes befo* COLESTIPOL 1 GRAM TABLET Take 2 tablets by mouth once * ONDANSETRON 4 MG DISINTEGRATI* Take 1 tablet by mouth every * BUPROPION HCL SR 150 MG TABLE* Take 1 tablet by mouth twice * FUROSEMIDE 20 MG TABLET Take 1 tablet by mouth once d* OMEGA-3 FATTY ACIDS 500 MG CA* Take 2 capsules by mouth twic* TOLTERODINE ER 4 MG CAPSULE,E* Take 1 capsule by mouth once * CHOLESTYRAMINE (WITH SUGAR) 4* Take 1 Packet by mouth three * FLUTICASONE 200 MCG-VILANTERO* Inhale 1 Inhalation as instru* ALBUTEROL SULFATE 2.5 MG/3 ML* Use 3 mL via nebulizer every * ALBUTEROL SULFATE HFA 90 MCG/* Inhale 2 Puffs as instructed * COENZYME Q10 100 MG CAPSULE Take 1 capsule by mouth twice* ATORVASTATIN 80 MG TABLET Take 1 tablet by mouth once d* NITROGLYCERIN 0.4 MG SUBLINGU* Dissolve 1 tablet under the t* METOPROLOL SUCCINATE ER 50 MG* Take 1 tablet by mouth once d* LORATADINE 10 MG TABLET Take 1 tablet by mouth once d* PREGABALIN 100 MG CAPSULE Take 1 capsule by mouth three* ALBUTEROL SULFATE HFA 90 MCG/* Inhale 2 Puffs as instructed * ALENDRONATE 70 MG TABLET Take 1 tablet by mouth once e* Patient not taking: Reported on 08/02/2018 PANTOPRAZOLE 40 MG TABLET,DEL* Take 1 tablet by mouth once d* Patient taking differently: Take 40 mg by mouth as needed. Problem List As Of Date 08/17/2018 Noted Resolved Cocaine substance abuse [F14.10] 09/04/2014 Essential hypertension, benign [I10] INVALID FOR* Priority: F More... Degenerative disc disease, cervical [M50.30] INVALID FOR* Priority: D More... Depression [F32.9] INVALID FOR* Priority: E More... Dysmetabolic syndrome X [E88.81] INVALID FOR* Osteoporosis [M81.0] INVALID FOR* Cervical disc disorder [M50.90] INVALID FOR* Vitamin D deficiency [E55.9] INVALID FOR* Hyperlipidemia with target LDL less than 70 [E7*INVALID FOR* Priority: G More... ASHD (arteriosclerotic heart disease) [I25.10] INVALID FOR* More... Chest pain [R07.9] INVALID FOR*09/04/2014 Priority: B More... Tobacco abuse [Z72.0] INVALID FOR* Priority: I More... Tobacco abuse counseling [Z71.6] INVALID FOR* Migraine headache [G43.909] INVALID FOR* Priority: H More... SUMMARY [V999.95] INVALID FOR* Priority: A More... Asthma [J45.909] INVALID FOR* Priority: C More... Elevated gastrin level [E16.4] INVALID FOR* Flushing [R23.2] INVALID FOR* Trigeminal neuralgia [G50.0] INVALID FOR* Erosive esophagitis [K22.10] INVALID FOR* Spontaneous ecchymoses [R23.3] INVALID FOR* Lumbar back pain with radiculopathy affecting l*INVALID FOR* Arteriosclerosis of carotid artery [I65.29] INVALID FOR* MELYSSA (obstructive sleep apnea) [G47.33] INVALID FOR* Trigeminal neuralgia of right side of face [G50*INVALID FOR* Obesity (BMI 30-39.9) [E66.9] INVALID FOR* Grief [F43.21] INVALID FOR* Other seasonal allergic rhinitis [J30.2] INVALID FOR* Anxiety and depression [F41.9, F32.9] INVALID FOR* Sense of smell altered [R43.9] INVALID FOR* Nonintractable headache [R51] INVALID FOR* Non morbid obesity due to excess calories [E66.*INVALID FOR* Fibrocystic breast changes, bilateral [N60.11, *INVALID FOR* Orthostatic hypotension [I95.1] INVALID FOR* Moderate episode of recurrent major depressive *INVALID FOR* 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 Chronic obstructive pulmonary disease, unspecif*INVALID FOR* Osteoarthritis [M19.90] INVALID FOR* Gastro-esophageal reflux disease without esopha*INVALID FOR* alf (current) use of aspirin [Z79.82] INVALID FOR* alf (current) use of opiate analgesic [Z7*INVALID FOR* Personal history of transient ischemic attack (*INVALID FOR* Orthopnea [R06.01] INVALID FOR* Spinal stenosis, cervical region [M48.02] INVALID FOR* Type 2 diabetes mellitus (HCC) [E11.9] INVALID FOR* Mixed stress and urge urinary incontinence [N39*INVALID FOR* Abdominal pain [R10.9] INVALID FOR* More... RUQ pain [R10.11] INVALID FOR* More... Nausea [R11.0] INVALID FOR* More... Steatosis of liver [K76.0] INVALID FOR* Other instructions from your clinician: Start the carafate, taking it at least 30 minutes before eating, so that it can coat the stomach. We will see if the insurance cover the colestipol pill instead of the grainy powder. Please follow the instructions for the test that looks at your liver (the liver biopsy) It will take a few days after the test for us to get the results. Call [phone], and ask to speak to a nurse in GI, if you have any questions or concerns in the mean time. We will have you see Dr. Zuñiga regarding your liver. Than, I will assist with your care. Prescriptions ordered this encounter Disp Refills Start End SUCRALFATE 1 GRAM TABLET 120 * 2 08/17/2018 Sig: Take at least 30 minutes before eating, and again before bed, if needed. COLESTIPOL 1 GRAM TABLET 60 t* 2 08/17/2018 Route: ORAL Sig: Take 2 tablets by mouth once daily. ONDANSETRON 4 MG DISINTEGRATING TABL* 20 t* 2 08/17/2018 Route: ORAL Sig: Take 1 tablet by mouth every 6 hours as needed for Nausea/Vomiting. Medications Discontinued During This Encounter ondansetron orally disintegrating (Z* 20 t* 1 07/06/2018 08/17/2018 Route: ORAL Sig: Take 1 tablet by mouth every 6 hours as needed for Nausea/Vomiting. Disc: Reason for discontinue is not on file. Follow-up and Disposition History Recorded Encounter Status:Closed by JESSEE MOORE CNP on 08/17/18 HOSP Observed: 08/17/2018 Status: COMPLETED Source: [place] 12:00 AM CLINIC OTHER CAMPUS REPOSITORY Patient:Britney Marie MRN: <[id number]> Height:5' 2(1.575 m) Weight:182 lb (82.555 kg) Outpatient Medications as of 08/27/18: levocetirizine dihydrochloride (XYZAL ORAL) morphine SR (MS CONTIN, ORAMORPH SR) 15 mg 12 hr tablet sucralfate (CARAFATE) 1 gram tablet colestipol (COLESTID) 1 gram tablet ondansetron orally disintegrating (ZOFRAN ODT) 4 mg disintegrating tablet buPROPion SR (WELLBUTRIN SR) 150 mg 12 hr tablet fluticasone-vilanterol (BREO ELLIPTA) 200-25 mcg/dose inhaler albuterol (PROVENTIL) 2.5 mg /3 mL (0.083 %) nebulizer solution albuterol HFA (VENTOLIN HFA) 90 mcg/actuation inhaler coenzyme Q10 (COQ-10) 100 mg cap capsule atorvastatin (LIPITOR) 80 mg tablet nitroglycerin sublingual (NITROQUICK) 0.4 mg SL tablet metoprolol succinate ER (TOPROL XL) 50 mg 24 hr tablet loratadine (CLARITIN) 10 mg tablet pregabalin (LYRICA) [address] (PROTONIX) 40 mg tablet Admission/Clinic Administered Medications as of 08/27/18: 0.9% NaCl 2-10 mL Problem List: Essential hypertension, benign [I10] Degenerative disc disease, cervical [M50.30] Depression [F32.9] Dysmetabolic syndrome X [E88.81] Osteoporosis [M81.0] Cervical disc disorder [M50.90] Vitamin D deficiency [E55.9] Hyperlipidemia with target LDL less than 70 [E78.5] ASHD (arteriosclerotic heart disease) [I25.10] Tobacco abuse [Z72.0] Tobacco abuse counseling [Z71.6] Migraine headache [G43.909] SUMMARY [V999.95] Asthma [J45.909] Elevated gastrin level [E16.4] Flushing [R23.2] Trigeminal neuralgia [G50.0] Erosive esophagitis [K22.10] Spontaneous ecchymoses [R23.3] Lumbar back pain with radiculopathy affecting left lower extremity [M54.16] Arteriosclerosis of carotid artery [I65.29] MELYSSA (obstructive sleep apnea) [G47.33] Trigeminal neuralgia of right side of face [G50.0] Obesity (BMI 30-39.9) [E66.9] Grief [F43.21] Other seasonal allergic rhinitis [J30.2] Anxiety and depression [F41.9, F32.9] Sense of smell altered [R43.9] Nonintractable headache [R51] Non morbid obesity due to excess calories [E66.09] Fibrocystic breast changes, bilateral [N60.11, N60.12] Orthostatic hypotension [I95.1] Moderate episode of recurrent major depressive disorder (HCC) [F33.1] 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] Incisional hernia, without obstruction or gangrene [K43.2] Bandemia [D72.825] Secondary polycythemia [D75.1] Nodule of right lung [R91.1] Chronic obstructive pulmonary disease, unspecified (HCC) [J44.9] Osteoarthritis [M19.90] Gastro-esophageal reflux disease without esophagitis [K21.9] alf (current) use of aspirin [Z79.82] 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) use of opiate analgesic [Z79.891] Personal history of transient ischemic attack (TIA), and cerebral infarction without residual deficits [Z86.73] Orthopnea [R06.01] Spinal stenosis, cervical region [M48.02] Type 2 diabetes mellitus (HCC) [E11.9] Mixed stress and urge urinary incontinence [N39.46] Abdominal pain [R10.9] RUQ pain [R10.11] Nausea [R11.0] Steatosis of liver [K76.0] Allergies: Latex Darvocet A500 [Propoxyphene N-Acetaminophen] Darvocet-N 100 [Propoxyphene N-Acetaminophen] Dilaudid [Hydromorphone Hcl] EES [Other] Heparin Analogues Keflex [Cephalexin] Levaquin [Levofloxacin] Lisinopril Oxycodone Oxycotin [Oxycodone] Penicillin Percocet [Oxycodone-Acetaminophen] Polytrim [Polymyxin B Sulf-Trimethoprim] Sulfa (Sulfonamide Antibiotics) Tegretol [Carbamazepine] Vibramycin [Doxycycline Calcium] Vicodin [Hydrocodone-Acetaminophen] Adhesive Tape (Rosins) Date Verified: 08/27/18 Lab Values Lab Value Units Date High Low ALMA* 39.7 % 08/27/2018 46.0 36.0 Progress Notes ([facility]): Ciarra Isbell, RN, RN 08/17/2018 10:28 AM Signed Spoke to patient to schedule for procedure, pt concerned about not being put under general anesthesia. Pt made aware we do not give general for these procedures, that we do procedural sedation. Spoke to office, aware order is in incorrectly needs to be image guided. Pre procedure instructions were given to pt, pt confirmed not on blood thinners. Pt scheduled 08/27 at 930, aware needs to come in early. Progress Notes ([facility]): Bianka Degroot LPN 08/17/2018 9:21 AM Signed Patient would like to know what she can take for her headache. She is having liver issues and certain things she can't take. She is getting a liver bx scheduled at [facility]. Please advise. She has an apt with you on 08-26-18 and needs to have something now. She will discuss further with you at this apt. Bianka Hunter Ma 08/17/2018 2:02 PM Signed Had to call patient to make an appointment and she states that she would really like a phone call regarding her headaches she states they are getting really bad to the point where she is about to throw up and she needs to be prescribed something for them. Davina Hardin RN, RN 08/17/2018 4:15 PM Signed Pt calling back to voice she is checking on the status of TE below. Mare River III MD 08/17/2018 6:08 PM Signed At least over the short run she could take Tylenol up to 3000 mg per day, or ibuprofen as much as 600 mg 3 times per day as needed for head pain. She may also try ice or heat on her neck or head Mare River III, MD, FAAFP Dayami Sky LPN 08/17/2018 6:18 PM Signed Pt aware of Provider recommendations, verbalizes understanding. Dayami Sky LPN PROGRESS Observed: 08/16/2018 Status: COMPLETED Source: [place] 7:39 AM [facility] REPOSITORY HNO ID: [id number] Author: Jessee Moore Service: (none) Author Type: Nurse Practitioner Type: Progress Notes Filed: 08/17/2018 11:13 AM Note Text: Britney Marie a 57 year old female who is returning for follow up regarding nausea, globus, RUQ pain. I saw the patient in consultation on 07/14/18. That note has been reviewed. She reported nausea within 15 minutes of eating. She had underwent a CT earlier in the year: CT scan reviewed: 12/01/17 IMPRESSION: 12 mm hepatic hypodensity, not seen on the prior enhanced study. ?This could represent a hemangioma that was isodense to liver at the time of imaging on the prior study. ?However, a new lesion is not excluded. ?MRI is recommended. Borderline extrahepatic ductal dilatation, heart or than seen on the prior study. ?This can be evaluated on MRI as well. ? I ordered the MRI: MRI of the liver 07/30/18 IMPRESSION: The study is limited because the most inferior right lobe of the liver and the lower pole of both kidneys are not included on this examination. Extensive steatosis of the liver with focal 1 cm advanced steatosis in the medial segment of the left lobe of the liver inferiorly adjacent to the proximal ligament. 4 mm right hepatic cyst. The patient was seen by Dr. Mccoy for upper endoscopy and colonoscopy 08/03/18, with MAC. The procedure report has been reviewed and findings as follows: Findings: normal colon, normal egd except for tortuous distal esophagus FINAL DIAGNOSIS: A) COLON, RANDOM BIOPSIES - COLONIC MUCOSA WITH NO SIGNIFICANT HISTOPATHOLOGIC CHANGE. B) SMALL BOWEL, TERMINAL ILEUM, BIOPSY - SUPERFICIAL FRAGMENTS OF UNREMARKABLE SMALL BOWEL MUCOSA. C) DUODENUM, SECOND PORTION, BIOPSY - DUODENAL MUCOSA WITH NO SIGNIFICANT HISTOPATHOLOGIC CHANGE. D) STOMACH, ANTRUM, BIOPSY - REACTIVE GASTROPATHY. ?NEGATIVE FOR HELICOBACTER PYLORI (SEE NOTE). NOTE: ?Immunostain for H. pylori is negative. E) GE JUNCTION, BIOPSY - GLANDULAR MUCOSA WITH NO SIGNIFICANT HISTOPATHOLOGIC CHANGE (SEE NOTE). NOTE: ?An Alcian blue/PAS stain is negative for intestinal metaplasia. Squamous mucosa is not sampled. We have reviewed the procedure reports, pathology and MRI report. Presenting complaint: The patient presents today reporting that she takes pantoprazole daily. Using Zofran up to two or three times a day. She tells me if I don't eat at all I don't have to use it. Taking the Questran when she eats. We discussed colestipol. We discuss adding Carafate. She tells me that she has been on that in the past. She is willing to try it again. anything to help me feel better. The patient tells me that she has written down all her symptoms. She has compared the list to the symptoms of fatty liver. She is concerned since she seems to have all but 3 of the listed symptoms (the cirrhosis, easy bruising and jaundice). I have explained that the next step will be a liver biopsy. We will get that set up today, and have her see Dr. Zuñiga to review the results. She is agreeable. She tells me that she has a friend who is a retired RN that will go to appointments with her. The patient is reporting daily headaches. She has stopped using Tylenol. She has to clear any prescriptions with her pain management provider. She sees him tomorrow. I have referred her to Dr. River for headache management. REVIEW OF SYSTEMS: GENERAL: No weight loss, malaise or fevers RESPIRATORY: Sees Dr. Manzanares. Studies done CARDIOVASCULAR: Sees Dr. Vargas. HTN and ASHD. GI: The patient states that her appetite has been poor due to the stomach pain. She does not get hungry. There has been some nausea, no recent vomiting. She admits to occasional dysphagia and denies odynophagia. There has been indigestion without heartburn. There has been regurgitation. Bowel habits have been irregular. There has been diarrhea. There has been constipation. The patient denies rectal bleeding. There has not been melena. Daily abdominal pain that is located in the right upper quadrant. PSYCH: Positive for a history of depression: HEMATOLOGY/LYMPHOLOGY Negative for prolonged bleeding, bruising easily or swollen nodes ENDOCRINE: Negative for cold or heat intolerance, polyuria, polydipsia and goiter NEURO: Migraine headaches All other reviewed and negative other than HPI. PAST MEDICAL HISTORY Diagnosis Date - ASHD (arteriosclerotic heart disease) 10/14/2011 - Bandemia 01/29/2018 - Cervical disc disorder at C4-C5 level with radiculopathy - Cocaine substance abuse ([facility]) 2003 - COPD (chronic obstructive pulmonary disease) ([facility]) - Degenerative disc disease, cervical 2010 - Depression 2010 - Dysmetabolic syndrome X 01/21/2011 - Dyspnea on exertion - Erosive esophagitis 09/04/2014 - Esophageal reflux Gastroesophageal reflux - Essential hypertension, benign 09/09/2010 no meds currently 03/26 - Fibrocystic breast changes, bilateral 01/28/2017 - Hyperlipidemia LDL goal < 70 10/14/2011 - Migraine headache 01/23/2012 - Myalgia - Nodule of right lung 03/02/2018 02/09/18: 5 mm to recheck in 1 yr - Non morbid obesity due to excess calories 08/29/2016 - Obstructive sleep apnea - Osteoporosis 03/13/2011 - Other cervical disc displacement at C4-C5 level - Other intervertebral disc displacement, lumbar region - Other muscle spasm - Other specified dorsopathies, lumbosacral region - Peptic ulcer, unspecified site, unspecified as acute or chronic, without mention of hemorrhage, perforation, or obstruction Peptic ulcer disease - Spinal stenosis, cervical region - Spondylosis without myelopathy or radiculopathy, cervical region - Steatosis of liver 07/30/2018 - Tobacco abuse 01/23/2012 - Trigeminal neuralgia 12/29/2013 - Type 2 diabetes mellitus (HCC) 07/15/2018 - Vitamin D deficiency 03/19/2011 PAST SURGICAL HISTORY Procedure Laterality Date - ANTERIOR INTERBODY FUSION, CERVICAL 1992 - APPENDECTOMY 2004-6 - CHOLECYSTECTOMY about 2005- sludge - COLONOSCOP W/ OR W/O [facility] SPEC 04/30/2010 Dr. Rayshawn Shrestha - COLONOSCOP W/ OR W/O [facility] SPEC 08/10/13 Colonoscopy - COLONOSCOP W/ OR W/O [facility] SPEC 08/03/2018 Colonoscopy - EGD W/O OR W/BRUSH/WASH 08/10/13 EGD - EGD W/O OR W/BRUSH/WASH 08/03/2018 EGD - LAPAROSCOPY, SURGICAL, ESOPHAGOGAST 01-25-10 LAP KAMILA - LEFT HEART CATH,PERCUTANEOUS 12/17/11 Cardiac cath, L heart, see scanned report - Tonsilectomy - TUBAL LIGATION, - XR CERVICAL FUSION OR 1998 posterior fusion FAMILY HISTORY Problem Relation Age of Onset - Heart Father 35 - Cancer Father - Cancer Mother - Breast Cancer Paternal Grandmother - Breast Cancer Paternal Aunt - Cancer Maternal Uncle LUNG - Heart Maternal Grandmother Current Outpatient Prescriptions: buPROPion SR (WELLBUTRIN SR) 150 mg 12 hr tablet Take 1 tablet by mouth twice daily. Disp: 60 tablet Rfl: 11 furosemide (LASIX) 20 mg tablet Take 1 tablet by mouth once daily. Disp: 30 tablet Rfl: 1 [place]-3 Fatty Acids (FISH OIL) 500 mg cap Take 2 capsules by mouth twice daily. Disp: 120 capsule Rfl: 11 tolterodine ER (DETROL LA) 4 mg 24 hr capsule Take 1 capsule by mouth once daily. Disp: 30 capsule Rfl: 11 cholestyramine (QUESTRAN) 4 gram packet Take 1 Packet by mouth three times daily with meals. Disp: 60 Packet Rfl: 5 fluticasone-vilanterol (BREO ELLIPTA) 200-25 mcg/dose inhaler Inhale 1 Inhalation as instructed once daily. Inhale one puff once daily. DO NOT CLICK OPEN UNTIL READY FOR DOSE Disp: 28 Each Rfl: 11 ondansetron orally disintegrating (ZOFRAN ODT) 4 mg disintegrating tablet Take 1 tablet by mouth every 6 hours as needed for Nausea/Vomiting. Disp: 20 tablet Rfl: 1 albuterol (PROVENTIL) 2.5 mg /3 mL (0.083 %) nebulizer solution Use 3 mL via nebulizer every 4 hours as needed for Wheezing/Shortness of Breath. Use over 5-15minutes. Disp: 1 Package Rfl: 0 albuterol HFA (VENTOLIN HFA) 90 mcg/actuation inhaler Inhale 2 Puffs as instructed every 4 hours as needed for Wheezing/Shortness of Breath. Disp: 1 Inhaler Rfl: 0 coenzyme Q10 (COQ-10) 100 mg cap capsule Take 1 capsule by mouth twice daily. Disp: 30 capsule Rfl: 11 atorvastatin (LIPITOR) 80 mg tablet Take 1 tablet by mouth once daily. Disp: 90 tablet Rfl: 3 nitroglycerin sublingual (NITROQUICK) 0.4 mg SL tablet Dissolve 1 tablet under the tongue as needed. FOR CHEST PAIN. IF NO RELIEF CALL 911 Disp: 1 Bottle of 25 Rfl: 3 metoprolol succinate ER (TOPROL XL) 50 mg 24 hr tablet Take 1 tablet by mouth once daily. Disp: 30 tablet Rfl: 12 loratadine (CLARITIN) 10 mg tablet Take 1 tablet by mouth once daily. Disp: 30 tablet Rfl: 2 pregabalin (LYRICA) 100 mg capsule Take 1 capsule by mouth three times daily. Disp: Rfl: albuterol HFA (PROAIR HFA) 90 mcg/actuation inhaler Inhale 2 Puffs as instructed every 4 hours as needed. Disp: 1 Inhaler Rfl: 0 alendronate (FOSAMAX) 70 mg tablet Take 1 tablet by mouth once each week. Take with a full glass of water, on an empty stomach; do NOT lie down for 30minutes. (Patient not taking: Reported on 08/02/2018 ) Disp: 4 tablet Rfl: [address] (PROTONIX) 40 mg tablet Take 1 tablet by mouth once daily. (Patient taking differently: Take 40 mg by mouth as needed.) Disp: 90 tablet Rfl: 3 No current facility-administered medications for this visit. SOCIAL HISTORY: Patient is . She smokes few cigarretes per day and reports her alcohol use as never. PHYSICAL EXAMINATION: General Appearance: Tearful, alert, in no acute distress, well-hydrated, well nourished. Skin: Skin color, texture, turgor normal, no suspicious rashes or lesions. Head: Normocephalic, no masses, lesions or abnormalities. Eyes: Anicteric sclera. Pupils are equally round and reactive to light. Extraocular movements are intact. . Neck: Supple, no adenopathy; thyroid symmetric, normal size, no bruits. Lungs: Lungs clear to auscultation. No wheezing, rhonchi, rales. Heart: RRR without murmur, gallop, or rubs. No ectopy. Abdomen: Bowel sounds normal. Abdomen soft, tenderness to mild palpation RUQ and epigastric region. New tenderness LUQ. No masses, organomegaly. Extremities: No deformities. Trace edema of fingers and ankles. Peripheral Pulses: Normal. Neurologic: Gait normal.Sensation grossly intact. Impression: steatosis of the liver. Need to determine POLANCO. Plan: Liver biopsy with follow up appointment with Yogesh, then I will assist with local care. Refill Zofran. Start Carafate. We'll see if her insurance will cover colestipol instead of the cholestyramine. She agrees with this plan. I have personally interviewed and examined this patient. I have reviewed the information that the MA entered for this encounter. I spent 35 minutes in the visit, with greater than 50% of the total [id number] time of the visit in counseling and coordination of care. Jessee Moore RN APRN.BOOTH USHER ANES POST Observed: 08/03/2018 Status: COMPLETED Source: [place] 3:00 PM [facility] REPOSITORY O ID: [id number] Author: Ilan Whittaker Service: (none) Author Type: Physician Type: Anesthesia PostOp Filed: 08/03/2018 3:10 PM Note Text: POST ANESTHESIA EVALUATION NOTE SERVICE DATE: 08/03/2018 SERVICE TIME: 1429 : 1960 Vitals: 08/03/18 1300 08/03/18 1406 Temp: 36.3 ?C (97.4 ?F) 36.4 ?C (97.5 ?F) 08/03/18 1412 08/03/18 1417 08/03/18 1422 08/03/18 1439 BP: (!) 92/44 99/57 115/61 130/79 08/03/18 1412 08/03/18 1417 08/03/18 1422 08/03/18 1439 Pulse: 77 81 78 75 08/03/18 1412 08/03/18 1417 08/03/18 1422 08/03/18 1439 Resp: 17 18 16 18 08/03/18 1412 08/03/18 1417 08/03/18 1422 08/03/18 1439 SpO2: 96% 95% 97% 98% Validated Vital Signs: Yes POST ANES STATUS: No apparent anesthetic complications. The patient is appropriately hydrated with stable respiratory and cardiovascular status. Patient has safe and adequate airway control. The patient has appropriate pain relief and no significant post operative nausea or vomiting. The patient has achieved baseline mental status. Intra-Operative Events: No Significant Anesthesia Events Further assessment by Anesthesia Service: None Other Remarks: SIGNATURE: Ilan Whittaker MD PATIENT NAME: Britney Marie DATE: August 03, 2018 TIME: 3:09 PM PAGER/CONTACT #: none NURSING PROG Observed: 08/03/2018 Status: COMPLETED Source: [place] 3:00 PM [facility] REPOSITORY HNO ID: [id number] Author: Chari (Rn) MURALI Jose Service: Nursing Author Type: Registered Nurse Type: Nursing Progress Note Filed: 08/03/2018 3:16 PM Note Text: Patient taking po fluids and food without difficulty. Patient denies pain or nausea. Patient voiding without difficulty. Discharge instructions given to patient. Denies questions. NURSING PROG Observed: 08/03/2018 Status: COMPLETED Source: [place] 3:00 PM [facility] REPOSITORY HNO ID: [id number] Author: Preeti QuintanillaRn) MURALI Mitchell Service: General Surgery Author Type: Registered Nurse Type: Nursing Progress Note Filed: 08/04/2018 11:50 AM Note Text: Patient states she has a very small open area in her mouth. Not bleeding today. Okay to salt water gargle. Do not swallow. Please contact doctor if not better or becomes worse over the next couple of days. BRIEF OP NOT Observed: 08/03/2018 Status: COMPLETED Source: [place] 2:04 PM [facility] REPOSITORY HNO ID: [id number] Author: Nehal Mccoy Service: (none) Author Type: Physician Type: Brief Op Note Filed: 08/03/2018 2:06 PM Note Text: BRIEF OPERATIVE NOTE SURGERY DATE: 08/03/2018 Incision/Procedure Start Time: 12:19 Incision Close/Procedure End Time: 13:00 Surgeon(s)/Proceduralist(s) and Organizational Development Director(s): Darius Procedures: Esophagogastroduodenoscopy with biopsies Colonoscopy with biopsies Anesthesia: MAC Findings: normal colon, normal egd except for tortuous distal esophagus Estimated Blood Loss: minimal Specimens: random mucosal biopsies of colon, mucosal biopsies of terminal ileum, mucosal biopsies of the following - second potion of duodenum, antrum of stomach and GE junction Complications: None Preop Diagnosis: abdominal pain, irritable bowel symptoms Postop Diagnosis: same SIGNATURE: Nehal Mccoy MD PATIENT NAME: Britney Marie DATE: August 03, 2018 TIME: 2:04 PM PAGER/CONTACT #: DIANNE PREOP Observed: 08/03/2018 Status: COMPLETED Source: [place] 12:57 PM [facility] REPOSITORY HNO ID: [id number] Author: Ilan Whittaker Service: (none) Author Type: Physician Type: Anesthesia PreOp Filed: 08/03/2018 12:59 PM Note Text: ANESTHESIOLOGY PREOPERATIVE ASSESSMENT SERVICE DATE: 08/03/2018 : 1960 SERVICE TIME: 1255 Surgeon(s): Nehal Mccoy Procedure(s) (LRB): COLONOSCOPY (N/A) EGD (N/A) Estimated body mass index is 34.35 kg/m? as calculated from the following: Height as of 08/02/18: 157.5 cm (5' 2). Weight as of 08/02/18: 85.2 kg (187 lb 12.8 oz). MOST RECENT HEMATOCRIT AND POTASSIUM RESULTS: Hematocrit 45.3 01/28/2018 Potassium 4.1 01/07/2018 ANES DOS/PREOP NOTE: Vitals: There were no vitals filed for this visit. ACTIVE PROBLEM LIST Essential Hypertension, Benign Degenerative Disc Disease, Cervical Depression Dysmetabolic Syndrome X Osteoporosis Cervical Disc Disorder Vitamin D Deficiency Hyperlipidemia With Target Ldl Less Than 70 Ashd (Arteriosclerotic Heart Disease) Tobacco Abuse Tobacco Abuse Counseling Migraine Headache Summary Asthma Elevated Gastrin Level Flushing Trigeminal Neuralgia Erosive Esophagitis Spontaneous Ecchymoses Lumbar Back Pain With Radiculopathy Affecting Left Lower Extremity Arteriosclerosis of Carotid Artery Melyssa (Obstructive Sleep Apnea) Trigeminal Neuralgia of Right Side of Face Obesity (Bmi 30-39.9) Grief Other Seasonal Allergic Rhinitis Anxiety and Depression Sense of Smell Altered Nonintractable Headache Non Morbid Obesity Due to Excess Calories Fibrocystic Breast Changes, Bilateral Orthostatic Hypotension Moderate Episode of Recurrent Major Depressive Disorder (Hcc) Central Pain Syndrome Incisional Hernia, Without Obstruction Or Gangrene Bandemia Secondary Polycythemia Nodule of Right Lung Chronic Obstructive Pulmonary Disease, Unspecified (Hcc) Osteoarthritis Gastro-Esophageal Reflux Disease Without Esophagitis [facility] (Current) Use of Aspirin [facility] (Current) Use of Opiate Analgesic Personal History of Transient Ischemic Attack (Tia), and Cerebral Infarction Without Residual Deficits Orthopnea Spinal Stenosis, Cervical Region Type 2 Diabetes Mellitus (Hcc) Mixed Stress and Urge Urinary Incontinence Abdominal Pain Ruq Pain Nausea Steatosis of Liver PAST MEDICAL HISTORY Diagnosis Date - ASHD (arteriosclerotic heart disease) 10/14/2011 - Bandemia 01/29/2018 - Cervical disc disorder at C4-C5 level with radiculopathy - Cocaine substance abuse (HCC) 2003 - COPD (chronic obstructive pulmonary disease) ([facility]) - Degenerative disc disease, cervical 2010 - Depression 2010 - Dysmetabolic syndrome X 01/21/2011 - Dyspnea on exertion - Erosive esophagitis 09/04/2014 - Esophageal reflux Gastroesophageal reflux - Essential hypertension, benign 09/09/2010 no meds currently 03/26 - Fibrocystic breast changes, bilateral 01/28/2017 - Hyperlipidemia LDL goal < 70 10/14/2011 - Migraine headache 01/23/2012 - Myalgia - Nodule of right lung 03/02/2018 02/09/18: 5 mm to recheck in 1 yr - Non morbid obesity due to excess calories 08/29/2016 - Obstructive sleep apnea - Osteoporosis 03/13/2011 - Other cervical disc displacement at C4-C5 level - Other intervertebral disc displacement, lumbar region - Other muscle spasm - Other specified dorsopathies, lumbosacral region - Peptic ulcer, unspecified site, unspecified as acute or chronic, without mention of hemorrhage, perforation, or obstruction Peptic ulcer disease - Spinal stenosis, cervical region - Spondylosis without myelopathy or radiculopathy, cervical region - Steatosis of liver 07/30/2018 - Tobacco abuse 01/23/2012 - Trigeminal neuralgia 12/29/2013 - Type 2 diabetes mellitus (HCC) 07/15/2018 - Vitamin D deficiency 03/19/2011 PAST SURGICAL HISTORY Procedure Laterality Date - ANTERIOR INTERBODY FUSION, CERVICAL 1992 - APPENDECTOMY 2004- - CHOLECYSTECTOMY about 2005- sludge - COLONOSCOP W/ OR W/O [facility] SPEC 04/30/2010 Dr. Rayshawn Sherstha - COLONOSCOP W/ OR W/O [facility] SPEC 08/10/13 Colonoscopy - EGD W/O OR W/BRUSH/WASH 08/10/13 EGD - LAPAROSCOPY, SURGICAL, ESOPHAGOGAST 01-25-10 LAP KAMILA - LEFT HEART CATH,PERCUTANEOUS 12/17/11 Cardiac cath, L heart, see scanned report - Tonsilectomy - TUBAL LIGATION, - XR CERVICAL FUSION OR 1998 posterior fusion FAMILY HISTORY Problem Relation Age of Onset - Heart Father 35 - Cancer Father - Cancer Mother - Breast Cancer Paternal Grandmother - Breast Cancer Paternal Aunt - Cancer Maternal Uncle LUNG - Heart Maternal Grandmother Social History: Social History Substance Use Topics - Smoking status: Current Every Day Smoker Packs/day: 0.25 Years: 45.00 Types: Cigarettes - Smokeless tobacco: Never Used Comment: trying to quit - Alcohol use No No current facility-administered medications on file prior to encounter. Current Outpatient Prescriptions on File Prior to Encounter: tolterodine ER (DETROL LA) 4 mg 24 hr capsule Take 1 capsule by mouth once daily. cholestyramine (QUESTRAN) 4 gram packet Take 1 Packet by mouth three times daily with meals. fluticasone-vilanterol (BREO ELLIPTA) 200-25 mcg/dose inhaler Inhale 1 Inhalation as instructed once daily. Inhale one puff once daily. DO NOT CLICK OPEN UNTIL READY FOR DOSE ondansetron orally disintegrating (ZOFRAN ODT) 4 mg disintegrating tablet Take 1 tablet by mouth every 6 hours as needed for Nausea/Vomiting. albuterol (PROVENTIL) 2.5 mg /3 mL (0.083 %) nebulizer solution Use 3 mL via nebulizer every 4 hours as needed for Wheezing/Shortness of Breath. Use over 5-15minutes. albuterol HFA (VENTOLIN HFA) 90 mcg/actuation inhaler Inhale 2 Puffs as instructed every 4 hours as needed for Wheezing/Shortness of Breath. coenzyme Q10 (COQ-10) 100 mg cap capsule Take 1 capsule by mouth twice daily. atorvastatin (LIPITOR) 80 mg tablet Take 1 tablet by mouth once daily. nitroglycerin sublingual (NITROQUICK) 0.4 mg SL tablet Dissolve 1 tablet under the tongue as needed. FOR CHEST PAIN. IF NO RELIEF CALL 911 metoprolol succinate ER (TOPROL XL) 50 mg 24 hr tablet Take 1 tablet by mouth once daily. loratadine (CLARITIN) 10 mg tablet Take 1 tablet by mouth once daily. pregabalin (LYRICA) 100 mg capsule Take 1 capsule by mouth three times daily. albuterol HFA (PROAIR HFA) 90 mcg/actuation inhaler Inhale 2 Puffs as instructed every 4 hours as needed. pantoprazole DR (PROTONIX) 40 mg tablet Take 1 tablet by mouth once daily. (Patient taking differently: Take 40 mg by mouth as needed.) morphine SR (MS CONTIN) 15 mg 12 hr tablet Take 15 mg by mouth twice daily as needed. [place]-3 Fatty Acids (FISH OIL) 500 mg cap Take 2 capsules by mouth twice daily. alendronate (FOSAMAX) 70 mg tablet Take 1 tablet by mouth once each week. Take with a full glass of water, on an empty stomach; do NOT lie down for 30minutes. (Patient not taking: Reported on 08/02/2018 ) Current Facility-Administered Medications: lactated ringers infusion 75 mL/hr INTRAVENOUS CONTINUOUS Nehal Mccoy Allergies: ALLERGIES Allergen Reactions - Latex Rash - Darvocet A500 [Prop* Itching - Darvocet-N 100 [Pro* Itching - Dilaudid [Hydromorp* Other: See Comments Burning sensation over entire body - Ees [Other] - Heparin Analogues Hives, Swelling - Keflex [Cephalexin] Swelling, Itching, Shortness of Breath - Levaquin [Levofloxa* Itching - Lisinopril Other: See Comments flushing - Oxycodone Itching - Oxycotin [Oxycodone] Hives, Swelling, Itching - Penicillin Anaphylaxis 4 years old - Percocet [Oxycodone* Itching - Polytrim [Polymyxin* Swelling, Itching - Sulfa (Sulfonamide * Hives - Tegretol [Carbamaze* Mental Status Change - Vibramycin [Doxycyc* Hives, Itching - Vicodin [Hydrocodon* - Adhesive Tape (Elizabeth* Rash, Itching REVIEW OF SYSTEMS: REVIEW OF SYSTEMS: As stated in Active Problem List/ Past Medical History ANESTHESIOLOGY REVIEW: Airway Assessment: MP 2; Neck ROM: Full ROM without neurologic symptoms; Airway Evaluation: No significant abnormalities Symptoms of Sleep Apnea: Age over 50 (57 year old) Intubation History: No previous history of difficult intubation Dentition: Dentures: both ADDITIONAL PHYSICAL EXAM: Lungs: Patient health status unchanged since recent history and physical. See history and physical for exam findings. Cardiac: Patient health status unchanged since recent history and physical. See history and physical for exam findings. Additional Pertinent Findings: N/A ADVERSE ANESTHESIA EVENT: No history of adverse event FAMILY HIISTORY OF ANESTHESIA: No known issues BLOOD PRODUCTS: Not anticipated for this procedure OTHER MEDICAL PROBLEMS: None I have interviewed and examined the patient. I have reviewed the medical record and/or the pre-anesthesia evaluation, pertinent labs, and test results. Significant changes in the patient's condition since the History and Physical, not otherwise documented in primary service progress notes: No Anesthetic risks, benefits, alternatives, personnel and consent discussed: Yes ANES REVIEW: This contains information obtained greater than 48 hours prior to the Surgery/Procedure. See Day of Surgery Note SIGNATURE: Ilan Whittaker MD PATIENT NAME: Britney Marie DATE: August 03, 2018 TIME: 12:57 PM PAGER/CONTACT #: none SURGICAL TISSUE EXAM Observed: 08/03/2018 Status: F Source: [facility] 12:00 AM [facility] REPOSITORY Test performed at [place] [id number] NAME: BRITNEY MARIE REQUESTING: NEHAL MCCOY MD FINAL DIAGNOSIS: A) COLON, RANDOM BIOPSIES - COLONIC MUCOSA WITH NO SIGNIFICANT HISTOPATHOLOGIC CHANGE. B) SMALL BOWEL, TERMINAL ILEUM, BIOPSY - SUPERFICIAL FRAGMENTS OF UNREMARKABLE SMALL BOWEL MUCOSA. C) DUODENUM, SECOND PORTION, BIOPSY - DUODENAL MUCOSA WITH NO SIGNIFICANT HISTOPATHOLOGIC CHANGE. D) STOMACH, ANTRUM, BIOPSY - REACTIVE GASTROPATHY. NEGATIVE FOR HELICOBACTER PYLORI (SEE NOTE). NOTE: Immunostain for H. pylori is negative. E) GE JUNCTION, BIOPSY - GLANDULAR MUCOSA WITH NO SIGNIFICANT HISTOPATHOLOGIC CHANGE (SEE NOTE). NOTE: An Alcian blue/PAS stain is negative for intestinal metaplasia. Squamous mucosa is not sampled. OPERATIVE PROCEDURE: Colonoscopy / EGD CLINICAL INFORMATION: Abdominal pain [R10.9], RUQ pain [R10.11], nausea [R11.0] Abd pain, RUQ pain, nausea GROSS DESCRIPTION: A) Random colon biopsies Received in formalin labeled random colon biopsies are multiple irregular-shaped segments of hidalgo-brown soft tissue aggregating to 3.4 x 0.3 x 0.2 cm. The specimen is totally submitted in formalin in cassette A1. Levels x 3. B) Terminal ileum biopsy Received in formalin labeled terminal ileum biopsy are two irregular-shaped segments of hidalgo-brown soft tissue aggregating to 0.5 x 0.1 x 0.1 cm. The specimen is totally submitted in formalin in one cassette. Levels x 3. C) Mucosal biopsies 2nd portion of duodenum Received in formalin labeled mucosal biopsies 2nd portion, duodenum, is an irregular-shaped segment of hidalgo soft tissue measuring 0.5 x 0.3 x 0.2 cm. The specimen is totally submitted in formalin in one cassette. Levels x 3. D) Antrum Received in formalin labeled antrum are two irregular-shaped segments of hidalgo-red soft tissue aggregating to 0.6 x 0.2 x 0.1 cm. The specimen is totally submitted in formalin in cassette D. Levels x 3. H. pylori. E) GE junction Received in formalin labeled gastroesophageal junction is an irregular-shaped segment of hidalgo-red soft tissue measuring 0.3 x 0.3 x 0.2 cm. The specimen is totally submitted in formalin in cassette E1. Levels x 3. AB/PAS. ARH:anita FLANNERY M.D.,PATHOLOGIST (Electronic signature on file) Signed out: 08/05/2018 13:37 PRINTED: 08/05/2018 Page 1 of 1 Performed By: #### SURG #### [place] [address] OPERATIVE NO Observed: 08/03/2018 Status: COMPLETED Source: [place] 12:00 AM [facility] REPOSITORY HNO ID: [id number] Author: Nehal Mccoy Service: (none) Author Type: Physician Type: Operative Report Filed: 08/04/2018 9:44 AM Note Text: [facility] - Operative Report BRITNEY MARIE : 1960 AGE: 57. SEX: F PATIENT TYPE: A HOSP SVC: GENS LOCATION: [facility] ATTENDING PHYSICIAN: Nehal Mccoy MD CSN NUMBER: [id number] DATE OF SURGERY/PROCEDURE: 08/03/2018 INCISION/PROCEDURE START TIME: 12:19 INCISION CLOSE/PROCEDURE END TIME: 13:00 SURGEON: Nehal Mccoy MD CLEANING SPECIALIST: none SURGERY/PROCEDURE: Esophagogastroduodenoscopy with biopsies. Colonoscopy with biopsies. ANESTHESIA: MAC. LOCATION: [facility]. SPECIMEN: Mucosal biopsies of second portion of duodenum. Mucosal biopsies of antrum and stomach. Mucosal biopsy of GE junction. Random mucosal biopsies of colon. Mucosal biopsies of the terminal ileum. PREOPERATIVE DIAGNOSES: Abdominal pain, nausea and vomiting, alternating diarrhea, and constipation. POSTOPERATIVE DIAGNOSES: Abdominal pain, nausea and vomiting, alternating diarrhea, and constipation. INDICATIONS: Britney Marie is a 57-year-old white female, who presents with complaint of generalized abdominal pain. She also complains of constipation in which she would not have a bowel movement for up to 4 days, and then after that she would have a bowel movement that have followed by multiple episodes of loose bowel movements. She also complains of abdominal bloating. She also complains of nausea sometimes with emesis. She therefore presents for evaluation of the upper and lower endoscopy. She has been counseled of the risks of procedure including, but not limited to infection, bleeding, perforation, GI tract requiring emergency surgery, inability to complete the procedure, injury to any internal organs such as liver or spleen, complications of anesthesia, etc. The patient understands and agrees to proceed. DESCRIPTION OF PROCEDURE: After informed consent was given, the patient brought to the endoscopy suite. Appropriate time-out protocol was done in the preprocedure area as well as in the endoscopy suite. The patient was given IV anesthesia. The posterior pharynx was sprayed with local anesthetic. Bite block was then placed. The patient was placed in left lateral decubitus position. The upper endoscope was lubricated and carefully inserted into the patient's mouth and then advanced down the patient's esophagus. It was then advanced past the GE junction into the stomach, past the pylorus into the first and then the second portion of the duodenum. No lesions, masses, or ulcers were noted in the duodenum. Mucosal biopsies were taken of the second portion of the duodenum because the patient complained of abdominal pain. The endoscope was retracted back into the stomach. Mucosal biopsies were taken of the antrum of the stomach. Retroflexed view in the body of the fundus of the stomach revealed no evidence of any lesions. The patient was noted to have retained bile in the stomach upon entering the stomach. The endoscope was then retracted back into the esophagus. The distal portion of the esophagus did appear tortuous. Mucosal biopsies were taken of the GE junction. The and remainder of the esophagus appeared normal. The endoscope was removed intact. The patient tolerated this portion of procedure well. The next procedure done was colonoscopy. The colonoscope was lubricated and carefully inserted into the patient's anus and advanced into the rectum. It was then advanced into the sigmoid colon, then left descending colon, past the splenic flexure into the transverse colon, past the hepatic flexure down the right ascending colon to cecum. Cecum was identified by confluence of teniae coli, identification of ileocecal valve, appendiceal orifice, and external palpation. The terminal ileum was intubated. It appeared grossly normal. Mucosal biopsies were taken using cold grasper forceps. Random mucosal biopsies were taken throughout the colon using cold grasper forceps. There was no evidence of any masses or lesions throughout the colon. No evidence of any extrinsic compression or strictures noted throughout the colon. Retroflex view in the rectum revealed hemorrhoidal changes. There was no active inflammation or bleeding. The endoscope was removed intact. Digital examination revealed no palpable masses in the anal canal. The patient tolerated procedure well, was brought to recovery room in stable condition. COMPLICATIONS: None. DRAINS: None. ESTIMATED BLOOD LOSS: Minimal. Nehal Mccoy MD [id number] /[id number] OPERATIVE NO Observed: 08/03/2018 Status: COMPLETED Source: [place] 12:00 AM [facility] REPOSITORY HNO ID: [id number] Author: Nehal Mccoy Service: (none) Author Type: Physician Type: Operative Report Filed: 08/17/2018 5:55 PM Note Text: [facility] [place] : 1960 AGE: 57. SEX: F PATIENT TYPE: A HOSP SVC: GEN LOCATION: [facility] ATTENDING PHYSICIAN: Nehal Mccoy MD CSN NUMBER: [id number] DATE OF SURGERY/PROCEDURE: 08/03/2018 INCISION/PROCEDURE START TIME: 12:19 INCISION CLOSE/PROCEDURE END TIME: 13:00 PREOPERATIVE DIAGNOSIS: Abdominal pain, nausea and vomiting, alternating diarrhea, and constipation. POSTOPERATIVE DIAGNOSIS: Abdominal pain, nausea and vomiting, alternating diarrhea, and constipation. SURGEON: Nehal Mccoy MD CLEANING SPECIALIST: None. SURGERY/PROCEDURE: Esophagogastroduodenoscopy with biopsies. Colonoscopy with biopsies. ANESTHESIA: MAC. LOCATION: [facility]. SPECIMEN: Mucosal biopsies of second portion of duodenum. Mucosal biopsies of antrum and stomach. Mucosal biopsy of GE junction. Random mucosal biopsies of colon. Mucosal biopsies of the terminal ileum. PREOPERATIVE DIAGNOSES: Abdominal pain, nausea and vomiting, alternating diarrhea, and constipation. POSTOPERATIVE DIAGNOSES: Abdominal pain, nausea and vomiting, alternating diarrhea, and constipation. INDICATIONS: Britney Marie is a 57-year-old white female, who presents with complaint of generalized abdominal pain. She also complains of constipation in which she would not have a bowel movement for up to 4 days, and then after that she would have a bowel movement that have followed by multiple episodes of loose bowel movements. She also complains of abdominal bloating. She also complains of nausea sometimes with emesis. She therefore presents for evaluation of the upper and lower endoscopy. She has been counseled of the risks of procedure including, but not limited to infection, bleeding, perforation, GI tract requiring emergency surgery, inability to complete the procedure, injury to any internal organs such as liver or spleen, complications of anesthesia, etc. The patient understands and agrees to proceed. DESCRIPTION OF PROCEDURE: After informed consent was given, the patient brought to the endoscopy suite. Appropriate time-out protocol was done in the preprocedure area as well as in the endoscopy suite. The patient was given IV anesthesia. The posterior pharynx was sprayed with local anesthetic. Bite block was then placed. The patient was placed in left lateral decubitus position. The upper endoscope was lubricated and carefully inserted into the patient's mouth and then advanced down the patient's esophagus. It was then advanced past the GE junction into the stomach, past the pylorus into the first and then the second portion of the duodenum. No lesions, masses, or ulcers were noted in the duodenum. Mucosal biopsies were taken of the second portion of the duodenum because the patient complained of abdominal pain. The endoscope was retracted back into the stomach. Mucosal biopsies were taken of the antrum of the stomach. Retroflexed view in the body of the fundus of the stomach revealed no evidence of any lesions. The patient was noted to have retained bile in the stomach upon entering the stomach. The endoscope was then retracted back into the esophagus. The distal portion of the esophagus did appear tortuous. Mucosal biopsies were taken of the GE junction. The and remainder of the esophagus appeared normal. The endoscope was removed intact. The patient tolerated this portion of procedure well. The next procedure done was colonoscopy. The colonoscope was lubricated and carefully inserted into the patient's anus and advanced into the rectum. It was then advanced into the sigmoid colon, then left descending colon, past the splenic flexure into the transverse colon, past the hepatic flexure down the right ascending colon to cecum. Cecum was identified by confluence of teniae coli, identification of ileocecal valve, appendiceal orifice, and external palpation. The terminal ileum was intubated. It appeared grossly normal. Mucosal biopsies were taken using cold grasper forceps. Random mucosal biopsies were taken throughout the colon using cold grasper forceps. There was no evidence of any masses or lesions throughout the colon. No evidence of any extrinsic compression or strictures noted throughout the colon. Retroflex view in the rectum revealed hemorrhoidal changes. There was no active inflammation or bleeding. The endoscope was removed intact. Digital examination revealed no palpable masses in the anal canal. The patient tolerated procedure well, was brought to recovery room in stable condition. COMPLICATIONS: None. DRAINS: None. ESTIMATED BLOOD LOSS: Minimal. Nehal Mccoy MD [id number] Revised [facility] 08/17/18 /[id number] NURSING PROG Observed: 08/02/2018 Status: COMPLETED Source: [place] 1:50 PM [facility] REPOSITORY HNO ID: [id number] Author: Chari QuintanillaRn) MURALI Jose Service: Nursing Author Type: Registered Nurse Type: Nursing Progress Note Filed: 08/02/2018 1:52 PM Note Text: Pre call completed. Arrival time given. Patient saw Servomechanism Assembler today. Patient stated Dr. Vargas was to fax clearance to Dr. Mccoy's office. PROGRESS Observed: 08/02/2018 Status: COMPLETED Source: [place] 10:09 AM [facility] REPOSITORY HNO ID: [id number] Author: Lazaro Vargas Service: (none) Author Type: Physician Type: Progress Notes Filed: 08/02/2018 5:52 PM Note Text: PERTINENT CARDIAC HISTORY ASHD - moderate by cath HL HTN DM Tobaccoism MELYSSA - CPAP ADHERENCE TO GUIDELINES CORRIE-I or ARB for HF with prior LVEF<40 (NQF 0081) - N/A ASA or Plavix for ASHD (NQF 0067) - needs to restart Beta [place] for ASHD with prior IN or prior LVEF<40 (NQF 0070) - N/A Beta [place] for HF with prior LVEF<40 (NQF 0083) - N/A CORRIE-I or ARB for ASHD with DM or prior LVEF<40 (NQF 0066) - N/A Statin therapy for ASHD or FHL or DM - met BMI documented and plan if >25 (NQF 0421) - lifestyle recommendation form Tobacco use screening and referral (NQF 0028) - lifestyle recommendation form Recommendation for whole food, plant based diet - lifestyle recommendation form CLINICAL IMPRESSION/PLAN: Britney Marie has stable ischemic heart disease, which is moderate by cath. Her exercise tolerance is stable. There is no contraindication to endoscopy as scheduled. Risk of perioperative cardiac complications is low. I have asked her to try taking aspirin 81 milligrams with food. She has not been taking this reliably. This and her statin can be initiated after her EGD. I will see her in 8 months or as needed. Written and verbal health teaching given to patient, patient verbalizes understanding and agrees with treatment plan. DIAGNOSIS FOR VISIT: Preoperative cardiac risk assessment ASHD HISTORY OF PRESENT ILLNESS Britney Marie returns for preoperative risk assessment and follow-up of coronary disease and hypertension. She will need endoscopy in the near future. She reports stable exercise tolerance. She's had no chest discomfort and has used no nitroglycerin. She's had minimal edema. She denies orthopnea, syncope, palpitations, TIAs, amaurosis. She has not been taking aspirin or statin reliably due to abdominal discomfort. ALLERGIES: ALLERGIES Allergen Reactions - Latex Rash - Darvocet A500 [Prop* Itching - Darvocet-N 100 [Pro* Itching - Dilaudid [Hydromorp* Other: See Comments Burning sensation over entire body - Ees [Other] - Heparin Analogues Hives, Swelling - Keflex [Cephalexin] Swelling, Itching, Shortness of Breath - Levaquin [Levofloxa* Itching - Lisinopril Other: See Comments flushing - Oxycodone Itching - Oxycotin [Oxycodone] Hives, Swelling, Itching - Penicillin Anaphylaxis 4 years old - Percocet [Oxycodone* Itching - Polytrim [Polymyxin* Swelling, Itching - Sulfa (Sulfonamide * Hives - Tegretol [Carbamaze* Mental Status Change - Vibramycin [Doxycyc* Hives, Itching - Vicodin [Hydrocodon* - Adhesive Tape (Elizabeth* Rash, Itching CURRENT OUTPATIENT MEDICATIONS: [place]-3 Fatty Acids (FISH OIL) 500 mg cap Take 2 capsules by mouth twice daily. tolterodine ER (DETROL LA) 4 mg 24 hr capsule Take 1 capsule by mouth once daily. cholestyramine (QUESTRAN) 4 gram packet Take 1 Packet by mouth three times daily with meals. fluticasone-vilanterol (BREO ELLIPTA) 200-25 mcg/dose inhaler Inhale 1 Inhalation as instructed once daily. Inhale one puff once daily. DO NOT CLICK OPEN UNTIL READY FOR DOSE ondansetron orally disintegrating (ZOFRAN ODT) 4 mg disintegrating tablet Take 1 tablet by mouth every 6 hours as needed for Nausea/Vomiting. albuterol (PROVENTIL) 2.5 mg /3 mL (0.083 %) nebulizer solution Use 3 mL via nebulizer every 4 hours as needed for Wheezing/Shortness of Breath. Use over 5-15minutes. albuterol HFA (VENTOLIN HFA) 90 mcg/actuation inhaler Inhale 2 Puffs as instructed every 4 hours as needed for Wheezing/Shortness of Breath. coenzyme Q10 (COQ-10) 100 mg cap capsule Take 1 capsule by mouth twice daily. atorvastatin (LIPITOR) 80 mg tablet Take 1 tablet by mouth once daily. nitroglycerin sublingual (NITROQUICK) 0.4 mg SL tablet Dissolve 1 tablet under the tongue as needed. FOR CHEST PAIN. IF NO RELIEF CALL 911 metoprolol succinate ER (TOPROL XL) 50 mg 24 hr tablet Take 1 tablet by mouth once daily. loratadine (CLARITIN) 10 mg tablet Take 1 tablet by mouth once daily. pregabalin (LYRICA) 100 mg capsule Take 1 capsule by mouth three times daily. albuterol HFA (PROAIR HFA) 90 mcg/actuation inhaler Inhale 2 Puffs as instructed every 4 hours as needed. pantoprazole DR (PROTONIX) 40 mg tablet Take 1 tablet by mouth once daily. morphine SR (MS CONTIN) 15 mg 12 hr tablet Take 15 mg by mouth twice daily as needed. alendronate (FOSAMAX) 70 mg tablet Take 1 tablet by mouth once each week. Take with a full glass of water, on an empty stomach; do NOT lie down for 30minutes. PHYSICAL EXAMINATION: VITAL SIGNS: BP 124/72 Pulse 82 Ht 5' 2 (1.58m) Wt 187 lb 12.8 oz (85.2kg) BMI 34.34 kg/(m2). Chest: Clear to auscultation. Trachea is midline. Air entry is equal. Cardiac: Regular rhythm. S1 and S2 are normal. PMI is nondisplaced. There is a soft S4 gallop.. Carotids are brisk without bruits. JVP is less than 10 cm. Abdomen: Soft and nontender. There are no pulsatile masses or bruits. No liver enlargement. Bowel sounds are active. Extremities: No edema. Pulses are intact and symmetrical. Recent labs were reviewed. Renal function is normal. LDL had worsened to 136, but she has not been observing diet or taking medication regularly. Electronically Signed: Lazaro Vargas MD August 02, 2018 10:09 AM CC: ARBEN Lantigua MD Observed: 08/02/2018 Status: COMPLETED Source: [place] 9:30 AM [facility] REPOSITORY Office Visit (CAWSTR) BRITNEY MARIE ([id number]) 1960 [address] [facility] Date Time Provider Department 08/02/18 9:30 AM LAZARO VARGASWSTR During your visit today, we recorded the following information about you: Pulse Blood pressure Weight Height 82/minute 124/72 85.2 kg 1.575 m Lazaro Vargas MD 08/02/2018 5:52 PM Signed PERTINENT CARDIAC HISTORY ASHD - moderate by cath HL HTN DM Tobaccoism MELYSSA - CPAP ADHERENCE TO GUIDELINES CORRIE-I or ARB for HF with prior LVEF<40 (NQF 0081) - N/A ASA or Plavix for ASHD (NQF 0067) - needs to restart Beta [place] for ASHD with prior IN or prior LVEF<40 (NQF 0070) - N/A Beta [place] for HF with prior LVEF<40 (NQF 0083) - N/A CORRIE-I or ARB for ASHD with DM or prior LVEF<40 (NQF 0066) - N/A Statin therapy for ASHD or FHL or DM - met BMI documented and plan if >25 (NQF 0421) - lifestyle recommendation form Tobacco use screening and referral (NQF 0028) - lifestyle recommendation form Recommendation for whole food, plant based diet - lifestyle recommendation form CLINICAL IMPRESSION/PLAN: Britney Marie has stable ischemic heart disease, which is moderate by cath. Her exercise tolerance is stable. There is no contraindication to endoscopy as scheduled. Risk of perioperative cardiac complications is low. I have asked her to try taking aspirin 81 milligrams with food. She has not been taking this reliably. This and her statin can be initiated after her EGD. I will see her in 8 months or as needed. Written and verbal health teaching given to patient, patient verbalizes understanding and agrees with treatment plan. DIAGNOSIS FOR VISIT: Preoperative cardiac risk assessment ASHD HISTORY OF PRESENT ILLNESS Britney Marie returns for preoperative risk assessment and follow-up of coronary disease and hypertension. She will need endoscopy in the near future. She reports stable exercise tolerance. She's had no chest discomfort and has used no nitroglycerin. She's had minimal edema. She denies orthopnea, syncope, palpitations, TIAs, amaurosis. She has not been taking aspirin or statin reliably due to abdominal discomfort. ALLERGIES: ALLERGIES Allergen Reactions - Latex Rash - Darvocet A500 [Prop* Itching - Darvocet-N 100 [Pro* Itching - Dilaudid [Hydromorp* Other: See Comments Burning sensation over entire body - Ees [Other] - Heparin Analogues Hives, Swelling - Keflex [Cephalexin] Swelling, Itching, Shortness of Breath - Levaquin [Levofloxa* Itching - Lisinopril Other: See Comments flushing - Oxycodone Itching - Oxycotin [Oxycodone] Hives, Swelling, Itching - Penicillin Anaphylaxis 4 years old - Percocet [Oxycodone* Itching - Polytrim [Polymyxin* Swelling, Itching - Sulfa (Sulfonamide * Hives - Tegretol [Carbamaze* Mental Status Change - Vibramycin [Doxycyc* Hives, Itching - Vicodin [Hydrocodon* - Adhesive Tape (Elizabeth* Rash, Itching CURRENT OUTPATIENT MEDICATIONS: [place]-3 Fatty Acids (FISH OIL) 500 mg cap Take 2 capsules by mouth twice daily. tolterodine ER (DETROL LA) 4 mg 24 hr capsule Take 1 capsule by mouth once daily. cholestyramine (QUESTRAN) 4 gram packet Take 1 Packet by mouth three times daily with meals. fluticasone-vilanterol (BREO ELLIPTA) 200-25 mcg/dose inhaler Inhale 1 Inhalation as instructed once daily. Inhale one puff once daily. DO NOT CLICK OPEN UNTIL READY FOR DOSE ondansetron orally disintegrating (ZOFRAN ODT) 4 mg disintegrating tablet Take 1 tablet by mouth every 6 hours as needed for Nausea/Vomiting. albuterol (PROVENTIL) 2.5 mg /3 mL (0.083 %) nebulizer solution Use 3 mL via nebulizer every 4 hours as needed for Wheezing/Shortness of Breath. Use over 5-15minutes. albuterol HFA (VENTOLIN HFA) 90 mcg/actuation inhaler Inhale 2 Puffs as instructed every 4 hours as needed for Wheezing/Shortness of Breath. coenzyme Q10 (COQ-10) 100 mg cap capsule Take 1 capsule by mouth twice daily. atorvastatin (LIPITOR) 80 mg tablet Take 1 tablet by mouth once daily. nitroglycerin sublingual (NITROQUICK) 0.4 mg SL tablet Dissolve 1 tablet under the tongue as needed. FOR CHEST PAIN. IF NO RELIEF CALL 911 metoprolol succinate ER (TOPROL XL) 50 mg 24 hr tablet Take 1 tablet by mouth once daily. loratadine (CLARITIN) 10 mg tablet Take 1 tablet by mouth once daily. pregabalin (LYRICA) 100 mg capsule Take 1 capsule by mouth three times daily. albuterol HFA (PROAIR HFA) 90 mcg/actuation inhaler Inhale 2 Puffs as instructed every 4 hours as needed. pantoprazole DR (PROTONIX) 40 mg tablet Take 1 tablet by mouth once daily. morphine SR (MS CONTIN) 15 mg 12 hr tablet Take 15 mg by mouth twice daily as needed. alendronate (FOSAMAX) 70 mg tablet Take 1 tablet by mouth once each week. Take with a full glass of water, on an empty stomach; do NOT lie down for 30minutes. PHYSICAL EXAMINATION: VITAL SIGNS: BP 124/72 Pulse 82 Ht 5' 2 (1.58m) Wt 187 lb 12.8 oz (85.2kg) BMI 34.34 kg/(m2). Chest: Clear to auscultation. Trachea is midline. Air entry is equal. Cardiac: Regular rhythm. S1 and S2 are normal. PMI is nondisplaced. There is a soft S4 gallop.. Carotids are brisk without bruits. JVP is less than 10 cm. Abdomen: Soft and nontender. There are no pulsatile masses or bruits. No liver enlargement. Bowel sounds are active. Extremities: No edema. Pulses are intact and symmetrical. Recent labs were reviewed. Renal function is normal. LDL had worsened to 136, but she has not been observing diet or taking medication regularly. Electronically Signed: Lazaro Vargas MD August 02, 2018 10:09 AM CC: ARBEN Lantigua MD, MD 08/02/2018 10:10 AM Signed LIFESTYLE CHANGE A healthy lifestyle is the most important component of your overall treatment plan. Please give serious thought to the following areas and commit to making snf changes. EAT A WHOLE FOOD, PLANT BASED DIET The nutrition your body gets is more important than the medicine you take. What matters most is the overall way you eat. We encourage you to minimize the use of animal products (which include dairy and all meats except fatty fish) and use whole, unprocessed plant foods to provide your protein, vitamins and other nutrients. We have a lot of information to share with you on this topic. This is not a diet. It is a way of life that you will keep with you. EXERCISE REGULARLY It is not important to spend hours in the gym, lifting weights and perspiring heavily. A total of 2-3 hours per week of aerobic (causing you to be moderately short of breath) exercise is sufficient to improve your health. Talk to us before you begin a new exercise program, if you have heart disease or experience shortness of breath or chest pain. REDUCE STRESS Chronic emotional and physical stress leads to disease. Ways of reducing stress include meditation, visualization, prayer, yoga and other forms of relaxation therapy. Consistency is the marroquin. Find a technique that works for you and do it every day. CULTIVATE RELATIONSHIPS Loneliness and isolation have a major negative impact on health. Seek out others who can love, care for and nurture you. Avoid hurtful relationships. MAINTAIN IDEAL BODY WEIGHT The best way to do this is to do all the things above. Our bodies naturally find the right weight if we keep moving and feed ourselves the right food. If your BMI is greater than 25, we strongly recommend a referral to a weight management program. Please speak to us or your family physician about available programs. AVOID NICOTINE IN ALL FORMS This includes all tobacco products, whether chewed, smoked, vaped, or rubbed on the skin. Smoking cessation programs, which can make use of tobacco substitutes, medications to suppress cravings and behavior management, are available. Please contact your family physician about programs in your area. Referring Provider: LAZARO VARGAS [[id number]] Allergies As of Date: 08/02/2018 Noted Allergy Reaction LATEX 10/21/2013 2 - Rash DARVOCET A500 (PROPOXYPHENE N-CORRIE*08/05/2017 9 - Itching DARVOCET-N 100 (PROPOXYPHENE N-AC*12/11/2009 9 - Itching DILAUDID (HYDROMORPHONE HCL) 08/05/2017 14 - Other: See Comments Comments: Burning sensation over entire body EES [Other] 11/24/2005 HEPARIN ANALOGUES 06/09/2013 4 - Hives 7 - Swelling KEFLEX (CEPHALEXIN) 08/05/2017 7 - Swelling 9 - Itching 12 - Shortness of Breath LEVAQUIN (LEVOFLOXACIN) 11/10/2013 9 - Itching LISINOPRIL 01/17/2015 14 - Other: See Comments Comments: flushing OXYCODONE 08/05/2017 9 - Itching OXYCOTIN (OXYCODONE) 12/11/2009 4 - Hives 7 - Swelling 9 - Itching PENICILLIN 08/05/2017 10 - Anaphylaxis Comments: 4 years old PERCOCET (OXYCODONE-ACETAMINOPHEN)12/11/2009 9 - Itching POLYTRIM (POLYMYXIN B SULF-TRIMET*03/29/2015 7 - Swelling 9 - Itching SULFA (SULFONAMIDE ANTIBIOTICS) 11/24/2005 4 - Hives TEGRETOL (CARBAMAZEPINE) 06/04/2015 1 - Mental Status Change VIBRAMYCIN (DOXYCYCLINE CALCIUM) 08/05/2017 4 - Hives 9 - Itching VICODIN (HYDROCODONE-ACETAMINOPHE*11/24/2005 ADHESIVE TAPE (ROSINS) 03/03/2012 2 - Rash 9 - Itching Date Reviewed: 08/02/2018 Reviewed by: Lindsey Keller MA - Fully Assessed Reason for Visit: Established Patient [175] Primary Visit Diagnosis:ASHD (arteriosclerotic heart disease) [I25.10] Other Visit Diagnosis:Hypertension, essential [I10] Prescriptions as of 08/02/2018 Sig: [place]ME[place]-3 FATTY ACIDS 500 MG CA* Take 2 capsules by mouth twic* TOLTERODINE ER 4 MG CAPSULE,E* Take 1 capsule by mouth once * CHOLESTYRAMINE (WITH SUGAR) 4* Take 1 Packet by mouth three * FLUTICASONE 200 MCG-VILANTERO* Inhale 1 Inhalation as instru* ONDANSETRON 4 MG DISINTEGRATI* Take 1 tablet by mouth every * ALBUTEROL SULFATE 2.5 MG/3 ML* Use 3 mL via nebulizer every * ALBUTEROL SULFATE HFA 90 MCG/* Inhale 2 Puffs as instructed * COENZYME Q10 100 MG CAPSULE Take 1 capsule by mouth twice* ATORVASTATIN 80 MG TABLET Take 1 tablet by mouth once d* NITROGLYCERIN 0.4 MG SUBLINGU* Dissolve 1 tablet under the t* METOPROLOL SUCCINATE ER 50 MG* Take 1 tablet by mouth once d* LORATADINE 10 MG TABLET Take 1 tablet by mouth once d* PREGABALIN 100 MG CAPSULE Take 1 capsule by mouth three* ALBUTEROL SULFATE HFA 90 MCG/* Inhale 2 Puffs as instructed * PANTOPRAZOLE 40 MG TABLET,DEL* Take 1 tablet by mouth once d* Patient taking differently: Take 40 mg by mouth as needed. MORPHINE ER 15 MG TABLET,EXTE* Take 15 mg by mouth twice octavio* ALENDRONATE 70 MG TABLET Take 1 tablet by mouth once e* Patient not taking: Reported on 08/02/2018 Problem List As Of Date 08/02/2018 Noted Resolved Cocaine substance abuse [F14.10] 09/04/2014 Essential hypertension, benign [I10] INVALID FOR* Priority: F More... Degenerative disc disease, cervical [M50.30] INVALID FOR* Priority: D More... Depression [F32.9] INVALID FOR* Priority: E More... Dysmetabolic syndrome X [E88.81] INVALID FOR* Osteoporosis [M81.0] INVALID FOR* Cervical disc disorder [M50.90] INVALID FOR* Vitamin D deficiency [E55.9] INVALID FOR* Hyperlipidemia with target LDL less than 70 [E7*INVALID FOR* Priority: G More... ASHD (arteriosclerotic heart disease) [I25.10] INVALID FOR* More... Chest pain [R07.9] INVALID FOR*09/04/2014 Priority: B More... Tobacco abuse [Z72.0] INVALID FOR* Priority: I More... Tobacco abuse counseling [Z71.6] INVALID FOR* Migraine headache [G43.909] INVALID FOR* Priority: H More... SUMMARY [V999.95] INVALID FOR* Priority: A More... Asthma [J45.909] INVALID FOR* Priority: C More... Elevated gastrin level [E16.4] INVALID FOR* Flushing [R23.2] INVALID FOR* Trigeminal neuralgia [G50.0] INVALID FOR* Erosive esophagitis [K22.10] INVALID FOR* Spontaneous ecchymoses [R23.3] INVALID FOR* Lumbar back pain with radiculopathy affecting l*INVALID FOR* Arteriosclerosis of carotid artery [I65.29] INVALID FOR* MELYSSA (obstructive sleep apnea) [G47.33] INVALID FOR* Trigeminal neuralgia of right side of face [G50*INVALID FOR* Obesity (BMI 30-39.9) [E66.9] INVALID FOR* Grief [F43.21] INVALID FOR* Other seasonal allergic rhinitis [J30.2] INVALID FOR* Anxiety and depression [F41.9, F32.9] INVALID FOR* Sense of smell altered [R43.9] INVALID FOR* Nonintractable headache [R51] INVALID FOR* Non morbid obesity due to excess calories [E66.*INVALID FOR* Fibrocystic breast changes, bilateral [N60.11, *INVALID FOR* Orthostatic hypotension [I95.1] INVALID FOR* Moderate episode of recurrent major depressive *INVALID FOR* 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 Chronic obstructive pulmonary disease, unspecif*INVALID FOR* Osteoarthritis [M19.90] INVALID FOR* Gastro-esophageal reflux disease without esopha*INVALID FOR* alf (current) use of aspirin [Z79.82] INVALID FOR* alf (current) use of opiate analgesic [Z7*INVALID FOR* Personal history of transient ischemic attack (*INVALID FOR* Orthopnea [R06.01] INVALID FOR* Spinal stenosis, cervical region [M48.02] INVALID FOR* Type 2 diabetes mellitus (HCC) [E11.9] INVALID FOR* Mixed stress and urge urinary incontinence [N39*INVALID FOR* Abdominal pain [R10.9] INVALID FOR* More... RUQ pain [R10.11] INVALID FOR* More... Nausea [R11.0] INVALID FOR* More... Steatosis of liver [K76.0] INVALID FOR* Other instructions from your clinician: LIFESTYLE CHANGE A healthy lifestyle is the most important component of your overall treatment plan. Please give serious thought to the following areas and commit to making snf changes. EAT A WHOLE FOOD, PLANT BASED DIET The nutrition your body gets is more important than the medicine you take. What matters most is the overall way you eat. We encourage you to minimize the use of animal products (which include dairy and all meats except fatty fish) and use whole, unprocessed plant foods to provide your protein, vitamins and other nutrients. We have a lot of information to share with you on this topic. This is not a diet. It is a way of life that you will keep with you. EXERCISE REGULARLY It is not important to spend hours in the gym, lifting weights and perspiring heavily. A total of 2-3 hours per week of aerobic (causing you to be moderately short of breath) exercise is sufficient to improve your health. Talk to us before you begin a new exercise program, if you have heart disease or experience shortness of breath or chest pain. REDUCE STRESS Chronic emotional and physical stress leads to disease. Ways of reducing stress include meditation, visualization, prayer, yoga and other forms of relaxation therapy. Consistency is the marroquin. Find a technique that works for you and do it every day. CULTIVATE RELATIONSHIPS Loneliness and isolation have a major negative impact on health. Seek out others who can love, care for and nurture you. Avoid hurtful relationships. MAINTAIN IDEAL BODY WEIGHT The best way to do this is to do all the things above. Our bodies naturally find the right weight if we keep moving and feed ourselves the right food. If your BMI is greater than 25, we strongly recommend a referral to a weight management program. Please speak to us or your family physician about available programs. AVOID NICOTINE IN ALL FORMS This includes all tobacco products, whether chewed, smoked, vaped, or rubbed on the skin. Smoking cessation programs, which can make use of tobacco substitutes, medications to suppress cravings and behavior management, are available. Please contact your family physician about programs in your area. Follow-up and Disposition History Recorded Encounter Status:Closed by LAZARO VARGAS MD on 08/02/18 PROGRESS Observed: 07/30/2018 Status: COMPLETED Source: [place] 2:46 PM [facility] [place] REPOSITORY O ID: [id number] Author: Jory (Rt) Nathen Szymanski Service: (none) Author Type: Government Minister Type: Progress Notes Filed: 07/30/2018 2:46 PM Note Text: Radiology Service Progress Note PATIENT NAME: Britney Marie DATE OF SERVICE: July 30, 2018 TIME: 2:46 PM PATIENT IDENTITY VERIFICATION COMPLETED USING TWO (2) METHODS: Patient confirmed name verbally and Date of . PATIENT GENDER DATA: Female. status: : No status: NO. PATIENT RELEVANT IMPLANT DATA REVIEWED: Yes CONTRAST INDUCED NEPHROPATHY RISK FACTORS: Not applicable CREATININE: Creatinine Date Value Ref Range Status 01/07/2018 0.82 0.58 - 0.96 mg/dL Final 10/23/2015 0.73 0.70 - 1.40 mg/dL Final 04/13/2015 0.74 0.70 - 1.40 mg/dL Final eGFR-All Other Races Date Value Ref Range Status 01/07/2018 >60 . Final Comment: eGFR (Estimated GFR) Units of measure: mL/min/1.73 meters squared eGFR is derived from the reexpressed MDRD Study equation using the following parameters: serum creatinine, age, gender and race. The creatinine assay has been calibrated to be traceable to IDMS. An eGFR <60 mL/min/1.73m2 for >3 months is consistent with chronic kidney disease. Refer to KDOQI guidelines for clinical interpretation. In patients with unstable renal function, e.g. those with acute kidney injury, the eGFR may not accurately reflect actual GFR. eGFR- Date Value Ref Range Status 01/07/2018 >60 Final P.O.C.T. RESULTS: N/A July 30, 2018 RADIOLOGIST NOTIFIED?: No ALLERGIES: Reviewed and unchanged CONTRAST ALLERGY: NO. PERIPHERAL IV ACCESS: Ambulatory: IV type: A peripheral IV was started in the Right antecubital site with a Angio cath: 22 gauge., Site assessment: Clean,Dry and Intact, Site disposition Discontinued RADIOLOGY DEPARTMENT: MR; Exam(s) Completed: Body: Liver (routine) SIGNED BY: RT Waylon July 30, 2018 2:46 PM MRI LIVER WO/W Observed: 07/30/2018 Status: F Source: [place] IVCON 2:45 PM [facility] REPOSITORY * * *Final Report* * * DATE OF EXAM: Jul 30 2018 2:45PM [facility] 0727 - MRI LIVER WO/W IVCON / PROCEDURE REASON: Right upper quadrant pain * * * * Physician Interpretation * * * * HISTORY: Right upper quadrant abdominal pain MRI OF THE LIVER/MRI ABDOMEN: TECHNIQUE: MR imaging of the liver is performed in coronal plane using HASTE, and axial plane using axial diffusion-weighted, fast spin double echo T2 weighted, STIR, in and out of phase T1 weighted pulse sequences and VIBE. Following the intravenous administration of 20 cc Dotarem gadolinium contrast, serial imaging of the liver is performed at zero, 45 seconds, 2 minutes and 15 minutes using VIBE pulse sequences. RESULT: The study is limited because the most inferior right lobe of the liver and the lower pole of both kidneys are not included on this examination. Liver: Extensive steatosis of liver. Geographic areas of normal sparing liver, predominantly in the medial segment of the left lobe posteriorly and adjacent to the gallbladder fossa. 1 cm focal area of advanced steatosis with significant signal dropout in the medial segment of the left lobe adjacent to the falciform ligament, series 4:6. 4 mm T2-weighted hyperintense nonenhancing cyst in the posterior right lobe of the liver. Pancreas: The pancreas shows normal appearance without evidence of mass lesion or other significant abnormality. No MR evidence of acute pancreatitis. Biliary system: Cholecystectomy. No intrahepatic or extrahepatic biliary dilatation. Spleen: No discrete mass or splenomegaly. Adrenal glands: No adrenal nodule or mass. Kidneys:. No cysts or enhancing soft tissue mass. No hydronephrosis is seen. No ascites, adenopathy by size criteria. No portal venous thrombosis or other obvious venous thrombosis is noted in the visualized abdomen. No abdominal aortic aneurysm. No significant stenosis at the visualized celiac artery or superior mesentery artery. The visualized bowel loops show no obvious abnormality. IMPRESSION: The study is limited because the most inferior right lobe of the liver and the lower pole of both kidneys are not included on this examination. Extensive steatosis of the liver with focal 1 cm advanced steatosis in the medial segment of the left lobe of the liver inferiorly adjacent to the proximal ligament. 4 mm right hepatic cyst. Electrical Test Technician: RICKI Transcribe Date/Time: Jul 30 2018 3:25P Dictated by : MORENO LEVINE MD This examination was interpreted and the report reviewed and electronically signed by: MORENO LEVINE MD on Jul 30 2018 3:55PM EST [id number] NURSING PROG Observed: 07/28/2018 Status: COMPLETED Source: [place] 2:33 PM [facility] REPOSITORY HNO ID: [id number] Author: Preeti QuintanillaRn) MURALI Mitchell Service: General Surgery Author Type: Registered Nurse Type: Nursing Progress Note Filed: 07/28/2018 2:36 PM Note Text: Pre-op instructions given. Patient states understanding. She sees Dr. Lazaro Vargas for cardiology. We will contact his office to inquire about cardiac clearance. HOSP Observed: 07/28/2018 Status: COMPLETED Source: [place] 12:00 AM [facility] REPOSITORY Patient:Britney Marie MRN: <[id number]> Height:5' 2(1.575 m) Weight:187 lb 12.8 oz (85.186 kg) Outpatient Medications as of 08/03/18: [place]-3 Fatty Acids (FISH OIL) 500 mg cap tolterodine ER (DETROL LA) 4 mg 24 hr capsule cholestyramine (QUESTRAN) 4 gram packet fluticasone-vilanterol (BREO ELLIPTA) 200-25 mcg/dose inhaler ondansetron orally disintegrating (ZOFRAN ODT) 4 mg disintegrating tablet albuterol (PROVENTIL) 2.5 mg /3 mL (0.083 %) nebulizer solution albuterol HFA (VENTOLIN HFA) 90 mcg/actuation inhaler coenzyme Q10 (COQ-10) 100 mg cap capsule atorvastatin (LIPITOR) 80 mg tablet nitroglycerin sublingual (NITROQUICK) 0.4 mg SL tablet metoprolol succinate ER (TOPROL XL) 50 mg 24 hr tablet loratadine (CLARITIN) 10 mg tablet pregabalin (LYRICA) 100 mg capsule albuterol HFA (PROAIR HFA) 90 mcg/actuation inhaler alendronate (FOSAMAX) [address] (PROTONIX) 40 mg tablet morphine SR (MS CONTIN) 15 mg 12 hr tablet Admission/Clinic Administered Medications as of 08/03/18: lactated ringers infusion benzocaine 20 % Problem List: Essential hypertension, benign [I10] Degenerative disc disease, cervical [M50.30] Depression [F32.9] Dysmetabolic syndrome X [E88.81] Osteoporosis [M81.0] Cervical disc disorder [M50.90] Vitamin D deficiency [E55.9] Hyperlipidemia with target LDL less than 70 [E78.5] ASHD (arteriosclerotic heart disease) [I25.10] Tobacco abuse [Z72.0] Tobacco abuse counseling [Z71.6] Migraine headache [G43.909] SUMMARY [V999.95] Asthma [J45.909] Elevated gastrin level [E16.4] Flushing [R23.2] Trigeminal neuralgia [G50.0] Erosive esophagitis [K22.10] Spontaneous ecchymoses [R23.3] Lumbar back pain with radiculopathy affecting left lower extremity [M54.16] Arteriosclerosis of carotid artery [I65.29] MELYSSA (obstructive sleep apnea) [G47.33] Trigeminal neuralgia of right side of face [G50.0] Obesity (BMI 30-39.9) [E66.9] Grief [F43.21] Other seasonal allergic rhinitis [J30.2] Anxiety and depression [F41.9, F32.9] Sense of smell altered [R43.9] Nonintractable headache [R51] Non morbid obesity due to excess calories [E66.09] Fibrocystic breast changes, bilateral [N60.11, N60.12] Orthostatic hypotension [I95.1] Moderate episode of recurrent major depressive disorder (HCC) [F33.1] 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] Incisional hernia, without obstruction or gangrene [K43.2] Bandemia [D72.825] Secondary polycythemia [D75.1] Nodule of right lung [R91.1] Chronic obstructive pulmonary disease, unspecified (HCC) [J44.9] Osteoarthritis [M19.90] Gastro-esophageal reflux disease without esophagitis [K21.9] 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 [Z79.82] alf (current) use of opiate analgesic [Z79.891] Personal history of transient ischemic attack (TIA), and cerebral infarction without residual deficits [Z86.73] Orthopnea [R06.01] Spinal stenosis, cervical region [M48.02] Type 2 diabetes mellitus (HCC) [E11.9] Mixed stress and urge urinary incontinence [N39.46] Abdominal pain [R10.9] RUQ pain [R10.11] Nausea [R11.0] Steatosis of liver [K76.0] Allergies: Latex Darvocet A500 [Propoxyphene N-Acetaminophen] Darvocet-N 100 [Propoxyphene N-Acetaminophen] Dilaudid [Hydromorphone Hcl] EES [Other] Heparin Analogues Keflex [Cephalexin] Levaquin [Levofloxacin] Lisinopril Oxycodone Oxycotin [Oxycodone] Penicillin Percocet [Oxycodone-Acetaminophen] Polytrim [Polymyxin B Sulf-Trimethoprim] Sulfa (Sulfonamide Antibiotics) Tegretol [Carbamazepine] Vibramycin [Doxycycline Calcium] Vicodin [Hydrocodone-Acetaminophen] Adhesive Tape (Rosins) Date Verified: 08/03/18 Lab Values No results within the last 30 days for the following basenames: K,HCT Progress Notes ([facility]): Jessee Moore RN APRN.ANIKET 08/03/2018 8:26 AM Signed Scheduled for procedures today with Dr. Mccoy. Please call her to make sure she is planning on coming for the procedure. I wasn't sure if she was expecting a call from anyone after her appointment with Sam Ogden or not. Jessee Moore RN [employer].ANIKET Hunter Ma 08/03/2018 8:46 AM Signed Contacted patient and she states that she is going to get her procedures done today with Dr. Mccoy. She states that she did receive a phone call. Davina Hunter Ma Progress Notes ([facility]): Lazaro Vargas MD 08/02/2018 5:52 PM Signed PERTINENT CARDIAC HISTORY ASHD - moderate by cath HL HTN DM Tobaccoism MELYSSA - CPAP ADHERENCE TO GUIDELINES CORRIE-I or ARB for HF with prior LVEF<40 (NQF 0081) - N/A ASA or Plavix for ASHD (NQF 0067) - needs to restart Beta [place] for ASHD with prior IN or prior LVEF<40 (NQF 0070) - N/A Beta [place] for HF with prior LVEF<40 (NQF 0083) - N/A CORRIE-I or ARB for ASHD with DM or prior LVEF<40 (NQF 0066) - N/A Statin therapy for ASHD or FHL or DM - met BMI documented and plan if >25 (NQF 0421) - lifestyle recommendation form Tobacco use screening and referral (NQF 0028) - lifestyle recommendation form Recommendation for whole food, plant based diet - lifestyle recommendation form CLINICAL IMPRESSION/PLAN: Britney Marie has stable ischemic heart disease, which is moderate by cath. Her exercise tolerance is stable. There is no contraindication to endoscopy as scheduled. Risk of perioperative cardiac complications is low. I have asked her to try taking aspirin 81 milligrams with food. She has not been taking this reliably. This and her statin can be initiated after her EGD. I will see her in 8 months or as needed. Written and verbal health teaching given to patient, patient verbalizes understanding and agrees with treatment plan. DIAGNOSIS FOR VISIT: Preoperative cardiac risk assessment ASHD HISTORY OF PRESENT ILLNESS Britney Marie returns for preoperative risk assessment and follow-up of coronary disease and hypertension. She will need endoscopy in the near future. She reports stable exercise tolerance. She's had no chest discomfort and has used no nitroglycerin. She's had minimal edema. She denies orthopnea, syncope, palpitations, TIAs, amaurosis. She has not been taking aspirin or statin reliably due to abdominal discomfort. ALLERGIES: ALLERGIES Allergen Reactions - Latex Rash - Darvocet A500 [Prop* Itching - Darvocet-N 100 [Pro* Itching - Dilaudid [Hydromorp* Other: See Comments Burning sensation over entire body - Ees [Other] - Heparin Analogues Hives, Swelling - Keflex [Cephalexin] Swelling, Itching, Shortness of Breath - Levaquin [Levofloxa* Itching - Lisinopril Other: See Comments flushing - Oxycodone Itching - Oxycotin [Oxycodone] Hives, Swelling, Itching - Penicillin Anaphylaxis 4 years old - Percocet [Oxycodone* Itching - Polytrim [Polymyxin* Swelling, Itching - Sulfa (Sulfonamide * Hives - Tegretol [Carbamaze* Mental Status Change - Vibramycin [Doxycyc* Hives, Itching - Vicodin [Hydrocodon* - Adhesive Tape (Elizabeth* Rash, Itching CURRENT OUTPATIENT MEDICATIONS: [place]-3 Fatty Acids (FISH OIL) 500 mg cap Take 2 capsules by mouth twice daily. tolterodine ER (DETROL LA) 4 mg 24 hr capsule Take 1 capsule by mouth once daily. cholestyramine (QUESTRAN) 4 gram packet Take 1 Packet by mouth three times daily with meals. fluticasone-vilanterol (BREO ELLIPTA) 200-25 mcg/dose inhaler Inhale 1 Inhalation as instructed once daily. Inhale one puff once daily. DO NOT CLICK OPEN UNTIL READY FOR DOSE ondansetron orally disintegrating (ZOFRAN ODT) 4 mg disintegrating tablet Take 1 tablet by mouth every 6 hours as needed for Nausea/Vomiting. albuterol (PROVENTIL) 2.5 mg /3 mL (0.083 %) nebulizer solution Use 3 mL via nebulizer every 4 hours as needed for Wheezing/Shortness of Breath. Use over 5-15minutes. albuterol HFA (VENTOLIN HFA) 90 mcg/actuation inhaler Inhale 2 Puffs as instructed every 4 hours as needed for Wheezing/Shortness of Breath. coenzyme Q10 (COQ-10) 100 mg cap capsule Take 1 capsule by mouth twice daily. atorvastatin (LIPITOR) 80 mg tablet Take 1 tablet by mouth once daily. nitroglycerin sublingual (NITROQUICK) 0.4 mg SL tablet Dissolve 1 tablet under the tongue as needed. FOR CHEST PAIN. IF NO RELIEF CALL 911 metoprolol succinate ER (TOPROL XL) 50 mg 24 hr tablet Take 1 tablet by mouth once daily. loratadine (CLARITIN) 10 mg tablet Take 1 tablet by mouth once daily. pregabalin (LYRICA) 100 mg capsule Take 1 capsule by mouth three times daily. albuterol HFA (PROAIR HFA) 90 mcg/actuation inhaler Inhale 2 Puffs as instructed every 4 hours as needed. pantoprazole DR (PROTONIX) 40 mg tablet Take 1 tablet by mouth once daily. morphine SR (MS CONTIN) 15 mg 12 hr tablet Take 15 mg by mouth twice daily as needed. alendronate (FOSAMAX) 70 mg tablet Take 1 tablet by mouth once each week. Take with a full glass of water, on an empty stomach; do NOT lie down for 30minutes. PHYSICAL EXAMINATION: VITAL SIGNS: BP 124/72 Pulse 82 Ht 5' 2 (1.58m) Wt 187 lb 12.8 oz (85.2kg) BMI 34.34 kg/(m2). Chest: Clear to auscultation. Trachea is midline. Air entry is equal. Cardiac: Regular rhythm. S1 and S2 are normal. PMI is nondisplaced. There is a soft S4 gallop.. Carotids are brisk without bruits. JVP is less than 10 cm. Abdomen: Soft and nontender. There are no pulsatile masses or bruits. No liver enlargement. Bowel sounds are active. Extremities: No edema. Pulses are intact and symmetrical. Recent labs were reviewed. Renal function is normal. LDL had worsened to 136, but she has not been observing diet or taking medication regularly. Electronically Signed: Lazaro Vargas MD August 02, 2018 10:09 AM CC: ARBEN Lantigua MD, MD 08/02/2018 10:10 AM Signed LIFESTYLE CHANGE A healthy lifestyle is the most important component of your overall treatment plan. Please give serious thought to the following areas and commit to making snf changes. EAT A WHOLE FOOD, PLANT BASED DIET The nutrition your body gets is more important than the medicine you take. What matters most is the overall way you eat. We encourage you to minimize the use of animal products (which include dairy and all meats except fatty fish) and use whole, unprocessed plant foods to provide your protein, vitamins and other nutrients. We have a lot of information to share with you on this topic. This is not a diet. It is a way of life that you will keep with you. EXERCISE REGULARLY It is not important to spend hours in the gym, lifting weights and perspiring heavily. A total of 2-3 hours per week of aerobic (causing you to be moderately short of breath) exercise is sufficient to improve your health. Talk to us before you begin a new exercise program, if you have heart disease or experience shortness of breath or chest pain. REDUCE STRESS Chronic emotional and physical stress leads to disease. Ways of reducing stress include meditation, visualization, prayer, yoga and other forms of relaxation therapy. Consistency is the marroquin. Find a technique that works for you and do it every day. CULTIVATE RELATIONSHIPS Loneliness and isolation have a major negative impact on health. Seek out others who can love, care for and nurture you. Avoid hurtful relationships. MAINTAIN IDEAL BODY WEIGHT The best way to do this is to do all the things above. Our bodies naturally find the right weight if we keep moving and feed ourselves the right food. If your BMI is greater than 25, we strongly recommend a referral to a weight management program. Please speak to us or your family physician about available programs. AVOID NICOTINE IN ALL FORMS This includes all tobacco products, whether chewed, smoked, vaped, or rubbed on the skin. Smoking cessation programs, which can make use of tobacco substitutes, medications to suppress cravings and behavior management, are available. Please contact your family physician about programs in your area. PROGRESS Observed: 07/17/2018 Status: COMPLETED Source: [place] 2:23 PM [facility] REPOSITORY [facility] ID: [id number] Author: Mare River III Service: (none) Author Type: Physician Type: Progress Notes Filed: 07/17/2018 2:23 PM Note Text: Effie, Your ultrasound does show severe fatty liver disease with no other abnormalities. This would suggest that fatty liver disease is the cause for your symptoms. I recommend continued efforts to try to lose weight. There is no other specific treatment for fatty liver disease. Mare River III, MD, FAAFP CNPN Observed: 07/16/2018 Status: COMPLETED Source: [place] 12:00 AM [facility] REPOSITORY Telephone (GASTWS) CYNTHIABRITNEY ([id number]) 1960 [address] [facility] Date Time Provider Department 07/16/18 JESSEE MOORE (CASSIDY) DIANE During your visit today, we recorded the following information about you: Cierra Call 07/16/2018 10:49 AM Signed Patient was routed to me to schedule several appts. She said she is very frustrated speaking with schedulers and nurses because she is not getting answers to her questions. She would like a call from Khloe Moore if possible to discuss her concerns. Jessee Moore RN APRN.ANIKET 07/16/2018 11:40 AM Signed Please call the patient and clarify her concerns so that they can be addressed. Bianka Degroot LPN 07/16/2018 11:53 AM Signed Patient has some questions: She was put on questran and wants to know does she continue with Benefiber? She has been itching for over a year and wondering if this could be related to her liver. Please advise. Bianka Moore RN APRN.ANIKET 07/16/2018 11:59 AM Signed The two work in different ways. She can put a tablespoon of Benefiber in her bottle of water and sip on it through the day. Take the questran as Dr. River directed. The itching may be from her liver, but since her liver blood work is normal, I would not think so at this point. Jessee Moore RN APRN.ANIKET Degroot LPN 07/16/2018 12:15 PM Signed Patient notified with information listed below. Bianka Mcclainie Nikolai 07/28/2018 11:59 AM Signed Patient scheduled 08-03-2018 however she will need another Go;ella called in as she already drank the other prep thinking she was scheduled for a procedure. Chon Olguin 07/28/2018 12:00 PM Signed Addended by: CHON OLGUIN on: 07/28/2018 12:00 PM Modules accepted: Orders Jessee Moore RN APRN.ANIKET 07/29/2018 9:28 AM Signed Sent as requested. Please let patient know. Jessee Moore RN [employer].ANIKET Moore RN APRN.ANIKET 07/29/2018 9:28 AM Signed Addended by: JESSEE MOORE CNP on: 07/29/2018 09:28 AM Modules accepted: Beverly Hunter Ma 07/30/2018 9:04 AM Signed Called and left a message for the patient to call the office back. Davina Hunter Ma 07/30/2018 11:40 AM Signed Patient called back in and information below was given. Understanding verbalized. Davina Hunter Ma Allergies As of Date: 07/16/2018 Noted Allergy Reaction LATEX 10/21/2013 2 - Rash DARVOCET A500 (PROPOXYPHENE N-CORRIE*08/05/2017 9 - Itching DARVOCET-N 100 (PROPOXYPHENE N-AC*12/11/2009 9 - Itching DILAUDID (HYDROMORPHONE HCL) 08/05/2017 14 - Other: See Comments Comments: Burning sensation over entire body EES [Other] 11/24/2005 HEPARIN ANALOGUES 06/09/2013 4 - Hives 7 - Swelling KEFLEX (CEPHALEXIN) 08/05/2017 7 - Swelling 9 - Itching 12 - Shortness of Breath LEVAQUIN (LEVOFLOXACIN) 11/10/2013 9 - Itching LISINOPRIL 01/17/2015 14 - Other: See Comments Comments: flushing OXYCODONE 08/05/2017 9 - Itching OXYCOTIN (OXYCODONE) 12/11/2009 4 - Hives 7 - Swelling 9 - Itching PENICILLIN 08/05/2017 10 - Anaphylaxis Comments: 4 years old PERCOCET (OXYCODONE-ACETAMINOPHEN)12/11/2009 9 - Itching POLYTRIM (POLYMYXIN B SULF-TRIMET*03/29/2015 7 - Swelling 9 - Itching SULFA (SULFONAMIDE ANTIBIOTICS) 11/24/2005 4 - Hives TEGRETOL (CARBAMAZEPINE) 06/04/2015 1 - Mental Status Change VIBRAMYCIN (DOXYCYCLINE CALCIUM) 08/05/2017 4 - Hives 9 - Itching VICODIN (HYDROCODONE-ACETAMINOPHE*11/24/2005 ADHESIVE TAPE (ROSINS) 03/03/2012 2 - Rash 9 - Itching Date Reviewed: 07/15/2018 Reviewed by: Bekah ([facility]) ISMAEL Senior - Fully Assessed Reason for Visit: Questions [Other] Order(s):SURGICAL REQUEST - ELECTIVE [[id number]] Order #: [id number]: 1 [] peg 3350-electrolytes (COLYTE) 240-22.72-6.72 -5.84 gram solutionTake 4,000 mL by mouth one time only for 1 dose.Disp: 1 BottleRfl: 0 Prescriptions as of 07/16/2018 Sig: PEG 3350 240 GRAM-ELECTROLYTE* Take 4,000 mL by mouth one ti* CHOLESTYRAMINE (WITH SUGAR) 4* Take 1 Packet by mouth three * FLUTICASONE 200 MCG-VILANTERO* Inhale 1 Inhalation as instru* ONDANSETRON 4 MG DISINTEGRATI* Take 1 tablet by mouth every * ALBUTEROL SULFATE 2.5 MG/3 ML* Use 3 mL via nebulizer every * ALBUTEROL SULFATE HFA 90 MCG/* Inhale 2 Puffs as instructed * COENZYME Q10 100 MG CAPSULE Take 1 capsule by mouth twice* ATORVASTATIN 80 MG TABLET Take 1 tablet by mouth once d* NITROGLYCERIN 0.4 MG SUBLINGU* Dissolve 1 tablet under the t* METOPROLOL SUCCINATE ER 50 MG* Take 1 tablet by mouth once d* LORATADINE 10 MG TABLET Take 1 tablet by mouth once d* PREGABALIN 100 MG CAPSULE Take 1 capsule by mouth three* ALBUTEROL SULFATE HFA 90 MCG/* Inhale 2 Puffs as instructed * ALENDRONATE 70 MG TABLET Take 1 tablet by mouth once e* PANTOPRAZOLE 40 MG TABLET,DEL* Take 1 tablet by mouth once d* Patient taking differently: Take 40 mg by mouth as needed. MORPHINE ER 15 MG TABLET,EXTE* Take 15 mg by mouth twice octavio* Problem List As Of Date 07/16/2018 Noted Resolved Cocaine substance abuse [F14.10] 09/04/2014 Essential hypertension, benign [I10] INVALID FOR* Priority: F More... Degenerative disc disease, cervical [M50.30] INVALID FOR* Priority: D More... Depression [F32.9] INVALID FOR* Priority: E More... Dysmetabolic syndrome X [E88.81] INVALID FOR* Osteoporosis [M81.0] INVALID FOR* Cervical disc disorder [M50.90] INVALID FOR* Vitamin D deficiency [E55.9] INVALID FOR* Hyperlipidemia with target LDL less than 70 [E7*INVALID FOR* Priority: G More... ASHD (arteriosclerotic heart disease) [I25.10] INVALID FOR* More... Chest pain [R07.9] INVALID FOR*09/04/2014 Priority: B More... Tobacco abuse [Z72.0] INVALID FOR* Priority: I More... Tobacco abuse counseling [Z71.6] INVALID FOR* Migraine headache [G43.909] INVALID FOR* Priority: H More... SUMMARY [V999.95] INVALID FOR* Priority: A More... Asthma [J45.909] INVALID FOR* Priority: C More... Elevated gastrin level [E16.4] INVALID FOR* Flushing [R23.2] INVALID FOR* Trigeminal neuralgia [G50.0] INVALID FOR* Erosive esophagitis [K22.10] INVALID FOR* Spontaneous ecchymoses [R23.3] INVALID FOR* Lumbar back pain with radiculopathy affecting l*INVALID FOR* Arteriosclerosis of carotid artery [I65.29] INVALID FOR* MELYSSA (obstructive sleep apnea) [G47.33] INVALID FOR* Trigeminal neuralgia of right side of face [G50*INVALID FOR* Obesity (BMI 30-39.9) [E66.9] INVALID FOR* Grief [F43.21] INVALID FOR* Other seasonal allergic rhinitis [J30.2] INVALID FOR* Anxiety and depression [F41.9, F32.9] INVALID FOR* Sense of smell altered [R43.9] INVALID FOR* Nonintractable headache [R51] INVALID FOR* Non morbid obesity due to excess calories [E66.*INVALID FOR* Fibrocystic breast changes, bilateral [N60.11, *INVALID FOR* Orthostatic hypotension [I95.1] INVALID FOR* Moderate episode of recurrent major depressive *INVALID FOR* 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 Encounter Status:Closed by BIANKA DEGROOT LPN on 07/16/18 PROGRESS Observed: 07/15/2018 Status: COMPLETED Source: [place] 9:27 AM [facility] REPOSITORY [facility] ID: [id number] Author: Mare River III Service: (none) Author Type: Physician Type: Progress Notes Filed: 07/15/2018 1:34 PM Note Text: SUBJECTIVE: This is a 57 year old female that is here today for 1. RUQ pain worse after eating. Previous CT abd report reviewed as below?liver lesion resembling hemangioma. Khloe Moore CNP in GI has recommended upper and lower endoscopy following MRI liver. Patient does have some financial constraints that she would like not to do tests unless absolutely necessary. Insurance company will not pay for MRI scan was it is ordered stat. No change in appetite. She does have nausea which is not helped by Zofran. No vomiting. She has no rectal bleeding or recent change in bowel movements Started 1 yr ago. Foul odor urine. BM q3-4 days for mos. 2. using exhausted. Poor sleep. 3. sleep apnea--recent eval by Dr Manzanares. States that her cpap machine 4. asthma: reviewed PFT 06/29/18 report=small airway dis. Previous breo worked well. 5. notes dyspnea when enters her home. Son's dog causes her dyspnea. DATE OF EXAM: Nov 30 2017 ?2:34PM ? [facility] ? 0531 ?- ?CT ABD/PEL WO IVCON ?/ PROCEDURE REASON: Incisional hernia without obstruction or gangrene ?? ? * * * * Physician Interpretation * * * * ?EXAMINATION: ?CT ABDOMEN AND PELVIS WITHOUT IV CONTRAST CLINICAL HISTORY: ?Incisional hernia without obstruction or gangrene. ? Right upper quadrant pain TECHNIQUE: Non-IV contrast imaging of the abdomen and pelvis was performed using standard technique, scanning from just above the dome of the diaphragm to the symphysis pubis. ?Unenhanced imaging is limited for the evaluation of some intra-abdominal and pelvic pathology. M: CTAPWO_3 Contrast: IV: None Oral: ?50 ml of 50ML Omnipaque [address] Radiation dose: Integrated Dose-length product (DLP) for this visit = ? 769 mGy*cm. CT Dose Reduction Employed: Automated exposure control (AEC) COMPARISON: 01/27/2011 RESULT: Abdomen / Pelvis: Liver: Diffuse fatty infiltration with focal sparing adjacent to the gallbladder fossa. ?12 x 12 mm hypodensity segment 4a, not appreciated on the prior enhanced study. Biliary: Gallbladder is surgically absent. ?Common bile duct measures up to 1 cm in diameter, greater than seen on the prior study. ?No calcified duct stone or obvious mass. Spleen: No splenomegaly. Pancreas: Unremarkable. Adrenals: No mass. Kidneys: No calculus, hydronephrosis or finding to suggest a cyst or mass in the unenhanced kidney. GI Tract: No bowel dilation. ?Appendix is surgically absent. ?Dionicio fundoplication wrap. ?No recurrent hiatal hernia. Lymph Nodes: No lymphadenopathy. Mesentery/peritoneum: No ascites. Retroperitoneum: No mass. Vasculature: Atherosclerotic calcifications without aneurysm Pelvis: No mass or ascites. ?Bilateral tubal ligatures Bones/Soft Tissues: Small fat-containing umbilical hernia, unchanged. ?No acute osseous abnormality. Lower thorax: Unremarkable. PAST MEDICAL HISTORY Diagnosis Date - ASHD (arteriosclerotic heart disease) 10/14/2011 - Bandemia 01/29/2018 - Cervical disc disorder at C4-C5 level with radiculopathy - Cocaine substance abuse ([facility]) 2003 - COPD (chronic obstructive pulmonary disease) ([facility]) - Degenerative disc disease, cervical 2010 - Depression 2010 - Dysmetabolic syndrome X 01/21/2011 - Dyspnea on exertion - Erosive esophagitis 09/04/2014 - Esophageal reflux Gastroesophageal reflux - Essential hypertension, benign 09/09/2010 no meds currently 03/26 - Fibrocystic breast changes, bilateral 01/28/2017 - Hyperlipidemia LDL goal < 70 10/14/2011 - Migraine headache 01/23/2012 - Myalgia - Nodule of right lung 03/02/2018 02/09/18: 5 mm to recheck in 1 yr - Non morbid obesity due to excess calories 08/29/2016 - Obstructive sleep apnea - Osteoporosis 03/13/2011 - Other cervical disc displacement at C4-C5 level - Other intervertebral disc displacement, lumbar region - Other muscle spasm - Other specified dorsopathies, lumbosacral region - Peptic ulcer, unspecified site, unspecified as acute or chronic, without mention of hemorrhage, perforation, or obstruction Peptic ulcer disease - Spinal stenosis, cervical region - Spondylosis without myelopathy or radiculopathy, cervical region - Tobacco abuse 01/23/2012 - Trigeminal neuralgia 12/29/2013 - Vitamin D deficiency 03/19/2011 Current Outpatient Prescriptions on File Prior to Visit: iv contrast (will be provided with radiology test) MRI Liver Inject, intravenously, once for 1 dose. No IV access, insert saline lock prior to the beginning of sedation, infusion, injection of imaging exam. Discontinue saline lock post exam. If Pt. has a central line or IVAD, may access for administration according to line specific nursing protocol. Once exam is complete flush line and de-access according to line specific nursing protocol in the MR contrast administration guidelines link. ondansetron orally disintegrating (ZOFRAN ODT) 4 mg disintegrating tablet Take 1 tablet by mouth every 6 hours as needed for Nausea/Vomiting. albuterol (PROVENTIL) 2.5 mg /3 mL (0.083 %) nebulizer solution Use 3 mL via nebulizer every 4 hours as needed for Wheezing/Shortness of Breath. Use over 5-15minutes. albuterol HFA (VENTOLIN HFA) 90 mcg/actuation inhaler Inhale 2 Puffs as instructed every 4 hours as needed for Wheezing/Shortness of Breath. umeclidinium-vilanterol (ANORO ELLIPTA) 62.5-25 mcg/actuation inhaler Inhale 1 Inhalation as instructed once daily. Inhale one puff once daily. DO NOT CLICK OPEN UNTIL READY FOR DOSE coenzyme Q10 (COQ-10) 100 mg cap capsule Take 1 capsule by mouth twice daily. atorvastatin (LIPITOR) 80 mg tablet Take 1 tablet by mouth once daily. nitroglycerin sublingual (NITROQUICK) 0.4 mg SL tablet Dissolve 1 tablet under the tongue as needed. FOR CHEST PAIN. IF NO RELIEF CALL 911 metoprolol succinate ER (TOPROL XL) 50 mg 24 hr tablet Take 1 tablet by mouth once daily. loratadine (CLARITIN) 10 mg tablet Take 1 tablet by mouth once daily. pregabalin (LYRICA) 100 mg capsule Take 1 capsule by mouth three times daily. albuterol HFA (PROAIR HFA) 90 mcg/actuation inhaler Inhale 2 Puffs as instructed every 4 hours as needed. alendronate (FOSAMAX) 70 mg tablet Take 1 tablet by mouth once each week. Take with a full glass of water, on an empty stomach; do NOT lie down for 30minutes. pantoprazole DR (PROTONIX) 40 mg tablet Take 1 tablet by mouth once daily. (Patient taking differently: Take 40 mg by mouth as needed.) morphine SR (MS CONTIN) 15 mg 12 hr tablet Take 15 mg by mouth twice daily as needed. benzonatate (TESSALON PERLES) 100 mg capsule Take 2 capsules by mouth three times daily as needed. (Patient not taking: Reported on 07/15/2018 ) predniSONE (DELTASONE) 10 mg tablet Take by mouth- 4 tabs daily for 3 days, then 2 tabs daily for 3 days, then 1 tab daily for 3 days with food. (Patient not taking: Reported on 07/15/2018 ) No current facility-administered medications on file prior to visit. FAMILY HISTORY Problem Relation Age of Onset - Heart Father 35 - Cancer Father - Cancer Mother - Breast Cancer Paternal Grandmother - Breast Cancer Paternal Aunt - Cancer Maternal Uncle LUNG - Heart Maternal Grandmother Social History Substance Use Topics - Smoking status: Current Every Day Smoker Packs/day: 0.25 Years: 45.00 Types: Cigarettes - Smokeless tobacco: Never Used Comment: trying to quit - Alcohol use No BP 124/86 Pulse 81 Resp 16 Wt 84.4 kg (186 lb) BMI 34.02 kg/m? . OBJECTIVE: APPEARANCE Well appearing, alert, in no acute distress, well-hydrated, well nourished., Obese and looks tired, frustrated, in pain ABDOMEN ?soft and symmetric. Tenderness with mild palpation right upper quadrant without rigidity, rebound, mass. Liver appears not to be enlarged though there seems to be tenderness of the liver edge. Tenderness in the epigastrium. Back no tenderness of the back, no CVA tenderness Heart: Regular rate and rhythm without murmurs Lungs: Clear to auscultation without wheezes Lab Results for BRITNEY MARIE ( ) as of 07/15/2018 09:41 Ref. Range 07/07/2018 11:21 Protein, Total Latest Ref Range: 6.3 - 8.0 g/dL 6.4 Albumin Latest Ref Range: 3.9 - 4.9 g/dL 4.3 Bilirubin, Total Latest Ref Range: 0.2 - 1.3 mg/dL 0.3 Bilirubin, Conjug Latest Ref Range: <0.2 mg/dL <0.2 Alkaline Phosphatase Latest Ref Range: 32 - 117 U/L 70 ALT Latest Ref Range: 7 - 38 U/L 22 AST Latest Ref Range: 13 - 35 U/L 25 Amylase Latest Ref Range: 30 - 104 U/L 52 Lipase Latest Ref Range: 16 - 61 U/L 44 H pylori Ab, IgG Latest Units: U/mL 0.7 H. pylori IgG, Qualitative Latest Ref Range: Negative Negative ASSESSMENT: Right upper quadrant pain?possible bile gastritis History of cholecystectomy Suspected hemangioma of the liver Asthma?not well controlled Sleep apnea with poor sleep Possible allergy PLAN: MRI abd may need upper and lower endoscopy for further evaluation restart breo use albuterol inhaler 1-2 puffs every 4 hrs as needed for wheezing same other medications consider allergy consult 40 minute visit with greater than 50% obtaining history, reviewing results, reviewing differential diagnosis and possible treatment plan May need to proceed with endoscopy if insurance company will not pay for MRI ARBEN Lantigua MD, III MD ALT Collected: 07/15/2018 Status: F Source: [place] 8:42 AM [facility] REPOSITORY TYPE CODE TESTS RESULT OUT OF RANGE REFERENCE UNITS LAB ALT 7-38 U/L ALT 21 Performed By: #### ALT, CK, LIPB #### [facility] [employer] [address], [place] [address] CK Collected: 07/15/2018 Status: F Source: [facility] 8:42 AM [facility] [place] REPOSITORY TYPE CODE TESTS RESULT OUT OF RANGE REFERENCE UNITS LAB CK 42-196 U/L CK 110 Result Comment: Please note the updated, gender-specific reference range for this test (effective 10/30/2016). Performed By: #### ALT, CK, LIPB #### [facility] [employer] [address], [place] [id number] LIPID PANEL, BASIC Collected: 07/15/2018 Status: F Source: [place] 8:42 AM [facility] REPOSITORY TYPE CODE TESTS RESULT OUT OF REFERENCE UNITS RANGE LAB CHOL <200 mg/dL Cholesterol High 217 Result Comment: <200 mg/dL, Desirable 200-239 mg/dL, Borderline high >239 mg/dL, High LAB TRIGLY <150 mg/dL Triglyceride High 186 Result Comment: <150 mg/dL, Normal 150-199 mg/dL, Borderline high 200-499 mg/dL, High >499 mg/dL, Very high LAB HDL >39 mg/dL HDL-Cholesterol 44 Result Comment: 40-59 mg/dL, Acceptable >59 mg/dL, High: Negative risk factor for coronary heart disease <40 mg/dL, Low: Positive risk factor for coronary heart disease LAB LDL <100 mg/dL LDL-Cholesterol High 136 Result Comment: <100 mg/dL, Optimal 100-129 mg/dL, Near optimal/above optimal 130-159 mg/dL, Borderline high 160-189 mg/dL, High >189 mg/dL, Very high Secondary prevention optimal LDL Cholesterol levels are recommended to be < 70 mg/dL LAB NONHDL <130 mg/dL Non HDL High Cholesterol 173 Result Comment: <130 mg/dL, Optimal 130-159 mg/dL, Near optimal/above optimal 160-189 mg/dL, Borderline high 190-219 mg/dL, High >219 mg/dL, Very high Secondary prevention optimal non HDL Cholesterol levels are recommended to be < 100 mg/dL LAB FT hrs Fasting Time 13 LAB VLDL <30 mg/dL High VLDL Cholesterol 37 LAB TCHDL <5.10 TC:HDL Ratio 4.93 LAB LDLHDL <2.54 High LDL:HDL Ratio 3.09 Result Comment: Reference: 1. National Cholesterol Education Program ATP III Guideline At-A-Glance Quick Desk Reference: National Heart, Lung, and Blood Barry. National Institutes of Health. 2001: NIH Publication No. 01-3305. 2. An International Atherosclerosis Society position paper: global recommendations for the management of dyslipidemia: executive summary, Atherosclerosis. 2014: 232(2):410-413. Performed By: #### ALT, CK, LIPB #### [facility] [employer] [address] [phone] HEPATITIS REMOTE PANEL Collected: 07/15/2018 Status: F Source: [place] 8:42 AM [facility] REPOSITORY TYPE CODE TESTS RESULT OUT OF RANGE REFERENCE UNITS LAB AHBCOT Negative Abnormal Alert Hep B Positive Core Ab,Total Result Comment: Result rechecked. LAB AHCV Negative Hepatitis C Ab Negative IA LAB HBSAGR Negative HBsAg Negative LAB AHBSAG Negative Abnormal HepB Alert Surface Ab,Qual Positive Result Comment: These results are consistent with previous exposure and/or immunity to the hepatitis B virus antigen. Performed By: #### HREMOP #### [facility] [employer] [address] [id number] CNOV Observed: 07/15/2018 Status: COMPLETED Source: [place] 8:20 AM [facility] REPOSITORY Office Visit (FAMPWS) BRITNEY MARIE ([id number]) 1960 F CHT Date Time Provider Department 07/15/18 8:20 AM MARE RIVER III During your visit today, we recorded the following information about you: Pulse Respiration Blood pressure Weight 81/minute 16/minute 124/86 84.4 kg Mare River III MD 07/15/2018 1:34 PM Signed SUBJECTIVE: This is a 57 year old female that is here today for 1. RUQ pain worse after eating. Previous CT abd report reviewed as below?liver lesion resembling hemangioma. Khloe Moore CNP in GI has recommended upper and lower endoscopy following MRI liver. Patient does have some financial constraints that she would like not to do tests unless absolutely necessary. Insurance company will not pay for MRI scan was it is ordered stat. No change in appetite. She does have nausea which is not helped by Zofran. No vomiting. She has no rectal bleeding or recent change in bowel movements Started 1 yr ago. Foul odor urine. BM q3-4 days for mos. 2. using exhausted. Poor sleep. 3. sleep apnea--recent eval by Dr Manzanares. States that her cpap machine 4. asthma: reviewed PFT 06/29/18 report=small airway dis. Previous breo worked well. 5. notes dyspnea when enters her home. Son's dog causes her dyspnea. DATE OF EXAM: Nov 30 2017 ?2:34PM ? [facility] ? 0531 ?- ?CT ABD/PEL WO IVCON ?/ PROCEDURE REASON: Incisional hernia without obstruction or gangrene ?? ? * * * * Physician Interpretation * * * * ?EXAMINATION: ?CT ABDOMEN AND PELVIS WITHOUT IV CONTRAST CLINICAL HISTORY: ?Incisional hernia without obstruction or gangrene. ? Right upper quadrant pain TECHNIQUE: Non-IV contrast imaging of the abdomen and pelvis was performed using standard technique, scanning from just above the dome of the diaphragm to the symphysis pubis. ?Unenhanced imaging is limited for the evaluation of some intra-abdominal and pelvic pathology. M: CTAPWO_3 Contrast: IV: None Oral: ?50 ml of 50ML Omnipaque [address] Radiation dose: Integrated Dose-length product (DLP) for this visit = ? 769 mGy*cm. CT Dose Reduction Employed: Automated exposure control (AEC) COMPARISON: 01/27/2011 RESULT: Abdomen / Pelvis: Liver: Diffuse fatty infiltration with focal sparing adjacent to the gallbladder fossa. ?12 x 12 mm hypodensity segment 4a, not appreciated on the prior enhanced study. Biliary: Gallbladder is surgically absent. ?Common bile duct measures up to 1 cm in diameter, greater than seen on the prior study. ?No calcified duct stone or obvious mass. Spleen: No splenomegaly. Pancreas: Unremarkable. Adrenals: No mass. Kidneys: No calculus, hydronephrosis or finding to suggest a cyst or mass in the unenhanced kidney. GI Tract: No bowel dilation. ?Appendix is surgically absent. ?Dionicio fundoplication wrap. ?No recurrent hiatal hernia. Lymph Nodes: No lymphadenopathy. Mesentery/peritoneum: No ascites. Retroperitoneum: No mass. Vasculature: Atherosclerotic calcifications without aneurysm Pelvis: No mass or ascites. ?Bilateral tubal ligatures Bones/Soft Tissues: Small fat-containing umbilical hernia, unchanged. ?No acute osseous abnormality. Lower thorax: Unremarkable. PAST MEDICAL HISTORY Diagnosis Date - ASHD (arteriosclerotic heart disease) 10/14/2011 - Bandemia 01/29/2018 - Cervical disc disorder at C4-C5 level with radiculopathy - Cocaine substance abuse ([facility]) 2003 - COPD (chronic obstructive pulmonary disease) ([facility]) - Degenerative disc disease, cervical 2010 - Depression 2010 - Dysmetabolic syndrome X 01/21/2011 - Dyspnea on exertion - Erosive esophagitis 09/04/2014 - Esophageal reflux Gastroesophageal reflux - Essential hypertension, benign 09/09/2010 no meds currently 03/26 - Fibrocystic breast changes, bilateral 01/28/2017 - Hyperlipidemia LDL goal < 70 10/14/2011 - Migraine headache 01/23/2012 - Myalgia - Nodule of right lung 03/02/2018 02/09/18: 5 mm to recheck in 1 yr - Non morbid obesity due to excess calories 08/29/2016 - Obstructive sleep apnea - Osteoporosis 03/13/2011 - Other cervical disc displacement at C4-C5 level - Other intervertebral disc displacement, lumbar region - Other muscle spasm - Other specified dorsopathies, lumbosacral region - Peptic ulcer, unspecified site, unspecified as acute or chronic, without mention of hemorrhage, perforation, or obstruction Peptic ulcer disease - Spinal stenosis, cervical region - Spondylosis without myelopathy or radiculopathy, cervical region - Tobacco abuse 01/23/2012 - Trigeminal neuralgia 12/29/2013 - Vitamin D deficiency 03/19/2011 Current Outpatient Prescriptions on File Prior to Visit: iv contrast (will be provided with radiology test) MRI Liver Inject, intravenously, once for 1 dose. No IV access, insert saline lock prior to the beginning of sedation, infusion, injection of imaging exam. Discontinue saline lock post exam. If Pt. has a central line or IVAD, may access for administration according to line specific nursing protocol. Once exam is complete flush line and de-access according to line specific nursing protocol in the MR contrast administration guidelines link. ondansetron orally disintegrating (ZOFRAN ODT) 4 mg disintegrating tablet Take 1 tablet by mouth every 6 hours as needed for Nausea/Vomiting. albuterol (PROVENTIL) 2.5 mg /3 mL (0.083 %) nebulizer solution Use 3 mL via nebulizer every 4 hours as needed for Wheezing/Shortness of Breath. Use over 5-15minutes. albuterol HFA (VENTOLIN HFA) 90 mcg/actuation inhaler Inhale 2 Puffs as instructed every 4 hours as needed for Wheezing/Shortness of Breath. umeclidinium-vilanterol (ANORO ELLIPTA) 62.5-25 mcg/actuation inhaler Inhale 1 Inhalation as instructed once daily. Inhale one puff once daily. DO NOT CLICK OPEN UNTIL READY FOR DOSE coenzyme Q10 (COQ-10) 100 mg cap capsule Take 1 capsule by mouth twice daily. atorvastatin (LIPITOR) 80 mg tablet Take 1 tablet by mouth once daily. nitroglycerin sublingual (NITROQUICK) 0.4 mg SL tablet Dissolve 1 tablet under the tongue as needed. FOR CHEST PAIN. IF NO RELIEF CALL 911 metoprolol succinate ER (TOPROL XL) 50 mg 24 hr tablet Take 1 tablet by mouth once daily. loratadine (CLARITIN) 10 mg tablet Take 1 tablet by mouth once daily. pregabalin (LYRICA) 100 mg capsule Take 1 capsule by mouth three times daily. albuterol HFA (PROAIR HFA) 90 mcg/actuation inhaler Inhale 2 Puffs as instructed every 4 hours as needed. alendronate (FOSAMAX) 70 mg tablet Take 1 tablet by mouth once each week. Take with a full glass of water, on an empty stomach; do NOT lie down for 30minutes. pantoprazole DR (PROTONIX) 40 mg tablet Take 1 tablet by mouth once daily. (Patient taking differently: Take 40 mg by mouth as needed.) morphine SR (MS CONTIN) 15 mg 12 hr tablet Take 15 mg by mouth twice daily as needed. benzonatate (TESSALON PERLES) 100 mg capsule Take 2 capsules by mouth three times daily as needed. (Patient not taking: Reported on 07/15/2018 ) predniSONE (DELTASONE) 10 mg tablet Take by mouth- 4 tabs daily for 3 days, then 2 tabs daily for 3 days, then 1 tab daily for 3 days with food. (Patient not taking: Reported on 07/15/2018 ) No current facility-administered medications on file prior to visit. FAMILY HISTORY Problem Relation Age of Onset - Heart Father 35 - Cancer Father - Cancer Mother - Breast Cancer Paternal Grandmother - Breast Cancer Paternal Aunt - Cancer Maternal Uncle LUNG - Heart Maternal Grandmother Social History Substance Use Topics - Smoking status: Current Every Day Smoker Packs/day: 0.25 Years: 45.00 Types: Cigarettes - Smokeless tobacco: Never Used Comment: trying to quit - Alcohol use No BP 124/86 Pulse 81 Resp 16 Wt 84.4 kg (186 lb) BMI 34.02 kg/m? . OBJECTIVE: APPEARANCE Well appearing, alert, in no acute distress, well- hydrated, well nourished., Obese and looks tired, frustrated, in pain ABDOMEN ?soft and symmetric. Tenderness with mild palpation right upper quadrant without rigidity, rebound, mass. Liver appears not to be enlarged though there seems to be tenderness of the liver edge. Tenderness in the epigastrium. Back no tenderness of the back, no CVA tenderness Heart: Regular rate and rhythm without murmurs Lungs: Clear to auscultation without wheezes Lab Results for BRITNEY MARIE ( ) as of 07/15/2018 09:41 Ref. Range 07/07/2018 11:21 Protein, Total Latest Ref Range: 6.3 - 8.0 g/dL 6.4 Albumin Latest Ref Range: 3.9 - 4.9 g/dL 4.3 Bilirubin, Total Latest Ref Range: 0.2 - 1.3 mg/dL 0.3 Bilirubin, Conjug Latest Ref Range: <0.2 mg/dL <0.2 Alkaline Phosphatase Latest Ref Range: 32 - 117 U/L 70 ALT Latest Ref Range: 7 - 38 U/L 22 AST Latest Ref Range: 13 - 35 U/L 25 Amylase Latest Ref Range: 30 - 104 U/L 52 Lipase Latest Ref Range: 16 - 61 U/L 44 H pylori Ab, IgG Latest Units: U/mL 0.7 H. pylori IgG, Qualitative Latest Ref Range: Negative Negative ASSESSMENT: Right upper quadrant pain?possible bile gastritis History of cholecystectomy Suspected hemangioma of the liver Asthma?not well controlled Sleep apnea with poor sleep Possible allergy PLAN: MRI abd may need upper and lower endoscopy for further evaluation restart breo use albuterol inhaler 1-2 puffs every 4 hrs as needed for wheezing same other medications consider allergy consult 40 minute visit with greater than 50% obtaining history, reviewing results, reviewing differential diagnosis and possible treatment plan May need to proceed with endoscopy if insurance company will not pay for MRI ARBEN Lantigua MD, III MD Frank A Cebul, III MD 07/15/2018 10:01 AM Signed PLAN: MRI abd may need upper and lower endoscopy for further evaluation restart breo use albuterol inhaler 1-2 puffs every 4 hrs as needed for wheezing same other medications consider allergy consult Mare River III MD Referring Provider: SELF [[id number]] Allergies As of Date: 07/15/2018 Noted Allergy Reaction LATEX 10/21/2013 2 - Rash DARVOCET A500 (PROPOXYPHENE N-CORRIE*08/05/2017 9 - Itching DARVOCET-N 100 (PROPOXYPHENE N-AC*12/11/2009 9 - Itching DILAUDID (HYDROMORPHONE HCL) 08/05/2017 14 - Other: See Comments Comments: Burning sensation over entire body EES [Other] 11/24/2005 HEPARIN ANALOGUES 06/09/2013 4 - Hives 7 - Swelling KEFLEX (CEPHALEXIN) 08/05/2017 7 - Swelling 9 - Itching 12 - Shortness of Breath LEVAQUIN (LEVOFLOXACIN) 11/10/2013 9 - Itching LISINOPRIL 01/17/2015 14 - Other: See Comments Comments: flushing OXYCODONE 08/05/2017 9 - Itching OXYCOTIN (OXYCODONE) 12/11/2009 4 - Hives 7 - Swelling 9 - Itching PENICILLIN 08/05/2017 10 - Anaphylaxis Comments: 4 years old PERCOCET (OXYCODONE-ACETAMINOPHEN)12/11/2009 9 - Itching POLYTRIM (POLYMYXIN B SULF-TRIMET*03/29/2015 7 - Swelling 9 - Itching SULFA (SULFONAMIDE ANTIBIOTICS) 11/24/2005 4 - Hives TEGRETOL (CARBAMAZEPINE) 06/04/2015 1 - Mental Status Change VIBRAMYCIN (DOXYCYCLINE CALCIUM) 08/05/2017 4 - Hives 9 - Itching VICODIN (HYDROCODONE-ACETAMINOPHE*11/24/2005 ADHESIVE TAPE (ROSINS) 03/03/2012 2 - Rash 9 - Itching Date Reviewed: 07/15/2018 Reviewed by: Bekah ([facility]) ISMAEL Senior - Fully Assessed Reason for Visit: Right side bulge [Other] Primary Visit Diagnosis:Right upper quadrant abdominal pain [R10.11] Other Visit Diagnoses:Moderate persistent asthma with acute exacerbation [J45.41] Bile reflux gastritis [K29.60] MELYSSA (obstructive sleep apnea) [G47.33] Order(s):cholestyramine (QUESTRAN) 4 gram packetTake 1 Packet by mouth three times daily with meals.Disp: 60 PacketRfl: 5 fluticasone-vilanterol (BREO ELLIPTA) 200-25 mcg/dose inhalerInhale 1 Inhalation as instructed once daily. Inhale one puff once daily. DO NOT CLICK OPEN UNTIL READY FOR DOSEDisp: 28 EachRfl: 11 Prescriptions as of 07/15/2018 Sig: IV CONTRAST (RADIOLOGY PROCED* MRI Liver Inject, intravenous* ONDANSETRON 4 MG DISINTEGRATI* Take 1 tablet by mouth every * ALBUTEROL SULFATE 2.5 MG/3 ML* Use 3 mL via nebulizer every * ALBUTEROL SULFATE HFA 90 MCG/* Inhale 2 Puffs as instructed * COENZYME Q10 100 MG CAPSULE Take 1 capsule by mouth twice* ATORVASTATIN 80 MG TABLET Take 1 tablet by mouth once d* NITROGLYCERIN 0.4 MG SUBLINGU* Dissolve 1 tablet under the t* METOPROLOL SUCCINATE ER 50 MG* Take 1 tablet by mouth once d* LORATADINE 10 MG TABLET Take 1 tablet by mouth once d* PREGABALIN 100 MG CAPSULE Take 1 capsule by mouth three* ALBUTEROL SULFATE HFA 90 MCG/* Inhale 2 Puffs as instructed * ALENDRONATE 70 MG TABLET Take 1 tablet by mouth once e* PANTOPRAZOLE 40 MG TABLET,DEL* Take 1 tablet by mouth once d* Patient taking differently: Take 40 mg by mouth as needed. MORPHINE ER 15 MG TABLET,EXTE* Take 15 mg by mouth twice octavio* CHOLESTYRAMINE (WITH SUGAR) 4* Take 1 Packet by mouth three * FLUTICASONE 200 MCG-VILANTERO* Inhale 1 Inhalation as instru* Problem List As Of Date 07/15/2018 Noted Resolved Cocaine substance abuse [F14.10] 09/04/2014 Essential hypertension, benign [I10] INVALID FOR* Priority: F More... Degenerative disc disease, cervical [M50.30] INVALID FOR* Priority: D More... Depression [F32.9] INVALID FOR* Priority: E More... Dysmetabolic syndrome X [E88.81] INVALID FOR* Osteoporosis [M81.0] INVALID FOR* Cervical disc disorder [M50.90] INVALID FOR* Vitamin D deficiency [E55.9] INVALID FOR* Hyperlipidemia with target LDL less than 70 [E7*INVALID FOR* Priority: G More... ASHD (arteriosclerotic heart disease) [I25.10] INVALID FOR* More... Chest pain [R07.9] INVALID FOR*09/04/2014 Priority: B More... Tobacco abuse [Z72.0] INVALID FOR* Priority: I More... Tobacco abuse counseling [Z71.6] INVALID FOR* Migraine headache [G43.909] INVALID FOR* Priority: H More... SUMMARY [V999.95] INVALID FOR* Priority: A More... Asthma [J45.909] INVALID FOR* Priority: C More... Elevated gastrin level [E16.4] INVALID FOR* Flushing [R23.2] INVALID FOR* Trigeminal neuralgia [G50.0] INVALID FOR* Erosive esophagitis [K22.10] INVALID FOR* Spontaneous ecchymoses [R23.3] INVALID FOR* Lumbar back pain with radiculopathy affecting l*INVALID FOR* Arteriosclerosis of carotid artery [I65.29] INVALID FOR* MELYSSA (obstructive sleep apnea) [G47.33] INVALID FOR* Trigeminal neuralgia of right side of face [G50*INVALID FOR* Obesity (BMI 30-39.9) [E66.9] INVALID FOR* Grief [F43.21] INVALID FOR* Other seasonal allergic rhinitis [J30.2] INVALID FOR* Anxiety and depression [F41.9, F32.9] INVALID FOR* Sense of smell altered [R43.9] INVALID FOR* Nonintractable headache [R51] INVALID FOR* Non morbid obesity due to excess calories [E66.*INVALID FOR* Fibrocystic breast changes, bilateral [N60.11, *INVALID FOR* Orthostatic hypotension [I95.1] INVALID FOR* Moderate episode of recurrent major depressive *INVALID FOR* 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 Chronic obstructive pulmonary disease, unspecif*INVALID FOR* Osteoarthritis [M19.90] INVALID FOR* Gastro-esophageal reflux disease without esopha*INVALID FOR* alf (current) use of aspirin [Z79.82] INVALID FOR* alf (current) use of opiate analgesic [Z7*INVALID FOR* Personal history of transient ischemic attack (*INVALID FOR* Orthopnea [R06.01] INVALID FOR* Spinal stenosis, cervical region [M48.02] INVALID FOR* Type 2 diabetes mellitus (HCC) [E11.9] INVALID FOR* Other instructions from your clinician: PLAN: MRI abd may need upper and lower endoscopy for further evaluation restart breo use albuterol inhaler 1-2 puffs every 4 hrs as needed for wheezing same other medications consider allergy consult Mare River, III MD Prescriptions ordered this encounter Disp Refills Start End CHOLESTYRAMINE (WITH SUGAR) 4 GRAM P* 60 P* 5 07/15/2018 Route: ORAL Sig: Take 1 Packet by mouth three times daily with meals. FLUTICASONE 200 MCG-VILANTEROL 25 MC* 28 E* 11 07/15/2018 Route: INHALATION Sig: Inhale 1 Inhalation as instructed once daily. Inhale one puff once daily. DO NOT CLICK OPEN UNTIL READY FOR DOSE Medications Discontinued During This Encounter benzonatate (TESSALON PERLES) 100 mg* 30 c* 0 05/18/2018 07/15/2018 Route: ORAL Sig: Take 2 capsules by mouth three times daily as needed. Patient not taking: Reported on 07/15/2018 Disc: Course of therapy completed predniSONE (DELTASONE) 10 mg tablet 21 t* 0 03/02/2018 07/15/2018 Sig: Take by mouth- 4 tabs daily for 3 days, then 2 tabs daily for 3 days, then 1 tab daily for 3 days with food. Patient not taking: Reported on 07/15/2018 Disc: Course of therapy completed umeclidinium-vilanterol (ANORO ELLIP* 1 Ea* 11 03/02/2018 07/15/2018 Cmt: Please instruct patient in use Route: INHALATION Sig: Inhale 1 Inhalation as instructed once daily. Inhale one puff once daily. DO NOT CLICK OPEN UNTIL READY FOR DOSE Disc: Clinical Decision Encounter Status:Closed by MARE RIVER III, MD on 07/15/18 HISTORY PHYSICAL Observed: 07/14/2018 Status: COMPLETED Source: [place] 9:56 AM [facility] REPOSITORY O ID: [id number] Author: Jessee Moore Service: (none) Author Type: Nurse Practitioner Type: HANDP Filed: 07/14/2018 2:33 PM Note Text: Britney Asencios a 57 year old female who is a consultation requested by lindsey Malone NP, for an opinion regarding multiple upper GI complaints. My final recommendations will be communicated back to the requesting provider by way of shared Medical record. The patient has not been seen previously by this provider. The patient was seen by Lindsey on 07/07/18, leading to this consultation. That note has been reviewed and part as follows: Abdominal Pain: right side under ribs and extends to back x1 year She states that she feels that it is getting worse and was considerably worse after drinking some alcohol at a libertarian over the weekend. She states that she also has nausea and vomiting (swallowed it back down) and bloating. She does not have a specific food trigger, but states that all foods make it worse. She states that she has a decreased appetite and feels full faster. She states that even though she is not eating much, she is gaining weight. Fear of the pain associated with eating makes her avoid eating. She states that she will also feel hot and sweaty after eating even if the pain did not start yet. Zofran helps. She is taking her protonix. She states that she lindsay snot usually drink alcohol and it has probably been 3 years since she drank prior to this last weekend. Gallbladder has been removed. She states that she always has had looser stools. Denies watery, mucous, or foul odor. Denies fever or chills. Component Latest Ref Rng AND Units 07/07/2018 Albumin 3.9 - 4.9 g/dL 4.3 Bilirubin, Total 0.2 - 1.3 mg/dL 0.3 Bilirubin, Conjug <0.2 mg/dL <0.2 Alkaline Phosphatase 32 - 117 U/L 70 AST 13 - 35 U/L 25 ALT 7 - 38 U/L 22 Protein, Total 6.3 - 8.0 g/dL 6.4 Amylase 30 - 104 U/L 52 Lipase 16 - 61 U/L 44 Component Latest Ref Rng AND Units 07/07/2018 H. pylori IgG, Qualitative Negative Negative H pylori Ab, IgG U/mL 0.7 RUQ US 07/09/18: IMPRESSION: Hepatic parenchyma demonstrates coarsened echotexture and inhomogeneous echogenicity suggesting severe fatty infiltration. Within this limitation no focal solid or cystic lesions. No hepatosplenomegaly Gallbladder surgically absent. No apparent choledocholithiasis or intrahepatic biliary dilatation. The patient was seen by Dr. Yang in the past. She underwent upper endoscopy and colonoscopy on 08/10/13, for reported generalized abdominal pain. The procedure report has been reviewed and findings as follows: EGD Impression: ? ?- Karanary-Olguin Grade I reflux esophagitis. Biopsied. ? - Normal examined duodenum. FINAL DIAGNOSIS 1. Stomach, antrum, biopsy (A) - Antral mucosa with reactive gastropathy; no morphologic evidence of H. pylori infection. 2. Esophagus, mid, biopsy (B) - Esophageal squamous mucosa with minimal reactive changes. Presenting complaint: The patient presents today reporting that she gets sick to her stomach as quickly as 15 minutes after I start eating. She reports RUQ pain. She tells me that she is seeing Dr. River about it tomorrow and that she had a CT done earlier this year because of it. CT scan reviewed: 12/01/17 IMPRESSION: 12 mm hepatic hypodensity, not seen on the prior enhanced study. ?This could represent a hemangioma that was isodense to liver at the time of imaging on the prior study. ?However, a new lesion is not excluded. ?MRI is recommended. Borderline extrahepatic ductal dilatation, heart or than seen on the prior study. ?This can be evaluated on MRI as well. I do not see that an MRI was done. I will order one. The patient tells me that she takes pantoprazole only as needed. Her prescription is was made in 2016, so I have questioned her as to if she is really taking it. She tells me that she had the pharmacist look at her medications and told her they were ok to take. I have explained that she needs to take that type of medicaiton for at least two weeks each as needed time. I have recommended that she use something else if only taking occasionally. With her complaints, I would suggest that she resume taking it daily. The patient tells me that she won' take Nexium since she heard it hurts her bones. I have explained that pantoprazole is the same class of drug, but the benefit could outweigh the risk. The patient reports it always feels like something is in my throat. She tells me that this has been going on forever. She tells me that soda is the only thing that clears it briefly. The patient reports I am constipated for days and will finally go, but it's diarrhea. Having a bowel movement about about every three or four days. When she finally gets the urge, it will literally be urgent. Sometimes diarrhea. REVIEW OF SYSTEMS: GENERAL: No weight loss, malaise or fevers RESPIRATORY: Sees Dr. Manzanares. Studies done CARDIOVASCULAR: Sees Dr. Vargas. HTN and ASHD. GI: The patient states that her appetite has been poor due to the stomach pain. She does not get hungry. There has been some nausea, no recent vomiting. She admits to occasional dysphagia and denies odynophagia. There has been indigestion without heartburn. There has been regurgitation. Bowel habits have been irregular. There has been diarrhea. There has been constipation. The patient denies rectal bleeding. There has not been melena. Daily abdominal pain that is located in the right upper quadrant. PSYCH: Positive for a history of depression: HEMATOLOGY/LYMPHOLOGY Negative for prolonged bleeding, bruising easily or swollen nodes ENDOCRINE: Negative for cold or heat intolerance, polyuria, polydipsia and goiter NEURO: Migraine headaches All other reviewed and negative other than HPI. PAST MEDICAL HISTORY Diagnosis Date - ASHD (arteriosclerotic heart disease) 10/14/2011 - Bandemia 01/29/2018 - Cervical disc disorder at C4-C5 level with radiculopathy - Cocaine substance abuse ([facility]) 2003 - COPD (chronic obstructive pulmonary disease) ([facility]) - Degenerative disc disease, cervical 2010 - Depression 2010 - Dysmetabolic syndrome X 01/21/2011 - Dyspnea on exertion - Erosive esophagitis 09/04/2014 - Esophageal reflux Gastroesophageal reflux - Essential hypertension, benign 09/09/2010 no meds currently 03/26 - Fibrocystic breast changes, bilateral 01/28/2017 - Hyperlipidemia LDL goal < 70 10/14/2011 - Migraine headache 01/23/2012 - Myalgia - Nodule of right lung 03/02/2018 02/09/18: 5 mm to recheck in 1 yr - Non morbid obesity due to excess calories 08/29/2016 - Obstructive sleep apnea - Osteoporosis 03/13/2011 - Other cervical disc displacement at C4-C5 level - Other intervertebral disc displacement, lumbar region - Other muscle spasm - Other specified dorsopathies, lumbosacral region - Peptic ulcer, unspecified site, unspecified as acute or chronic, without mention of hemorrhage, perforation, or obstruction Peptic ulcer disease - Spinal stenosis, cervical region - Spondylosis without myelopathy or radiculopathy, cervical region - Tobacco abuse 01/23/2012 - Trigeminal neuralgia 12/29/2013 - Vitamin D deficiency 03/19/2011 PAST SURGICAL HISTORY Procedure Laterality Date - ANTERIOR INTERBODY FUSION, CERVICAL 1992 - APPENDECTOMY - CHOLECYSTECTOMY - COLONOSCOP W/ OR W/O BRSH SPEC 04/30/2010 Dr. Rayshawn Shrestha - COLONOSCOP W/ OR W/O BRSH SPEC 08/10/13 Colonoscopy - EGD W/O OR W/BRUSH/WASH 08/10/13 EGD - LAPAROSCOPY, SURGICAL, ESOPHAGOGAST 3-10 LAP KAMILA - LEFT HEART CATH,PERCUTANEOUS 12/17/11 Cardiac cath, L heart, see scanned report - Tonsilectomy - TUBAL LIGATION, - XR CERVICAL FUSION OR 1998 posterior fusion FAMILY HISTORY Problem Relation Age of Onset - Heart Father 35 - Cancer Father - Cancer Mother - Breast Cancer Paternal Grandmother - Breast Cancer Paternal Aunt - Cancer Maternal Uncle LUNG - Heart Maternal Grandmother Current Outpatient Prescriptions: ondansetron orally disintegrating (ZOFRAN ODT) 4 mg disintegrating tablet Take 1 tablet by mouth every 6 hours as needed for Nausea/Vomiting. Disp: 20 tablet Rfl: 1 benzonatate (TESSALON PERLES) 100 mg capsule Take 2 capsules by mouth three times daily as needed. Disp: 30 capsule Rfl: 0 albuterol (PROVENTIL) 2.5 mg /3 mL (0.083 %) nebulizer solution Use 3 mL via nebulizer every 4 hours as needed for Wheezing/Shortness of Breath. Use over 5-15minutes. Disp: 1 Package Rfl: 0 albuterol HFA (VENTOLIN HFA) 90 mcg/actuation inhaler Inhale 2 Puffs as instructed every 4 hours as needed for Wheezing/Shortness of Breath. Disp: 1 Inhaler Rfl: 0 predniSONE (DELTASONE) 10 mg tablet Take by mouth- 4 tabs daily for 3 days, then 2 tabs daily for 3 days, then 1 tab daily for 3 days with food. Disp: 21 tablet Rfl: 0 umeclidinium-vilanterol (ANORO ELLIPTA) 62.5-25 mcg/actuation inhaler Inhale 1 Inhalation as instructed once daily. Inhale one puff once daily. DO NOT CLICK OPEN UNTIL READY FOR DOSE Disp: 1 Each Rfl: 11 coenzyme Q10 (COQ-10) 100 mg cap capsule Take 1 capsule by mouth twice daily. Disp: 30 capsule Rfl: 11 atorvastatin (LIPITOR) 80 mg tablet Take 1 tablet by mouth once daily. Disp: 90 tablet Rfl: 3 nitroglycerin sublingual (NITROQUICK) 0.4 mg SL tablet Dissolve 1 tablet under the tongue as needed. FOR CHEST PAIN. IF NO RELIEF CALL 911 Disp: 1 Bottle of 25 Rfl: 3 metoprolol succinate ER (TOPROL XL) 50 mg 24 hr tablet Take 1 tablet by mouth once daily. Disp: 30 tablet Rfl: 12 loratadine (CLARITIN) 10 mg tablet Take 1 tablet by mouth once daily. Disp: 30 tablet Rfl: 2 pregabalin (LYRICA) 100 mg capsule Take 1 capsule by mouth three times daily. Disp: Rfl: albuterol HFA (PROAIR HFA) 90 mcg/actuation inhaler Inhale 2 Puffs as instructed every 4 hours as needed. Disp: 1 Inhaler Rfl: 0 alendronate (FOSAMAX) 70 mg tablet Take 1 tablet by mouth once each week. Take with a full glass of water, on an empty stomach; do NOT lie down for 30minutes. Disp: 4 tablet Rfl: 2 promethazine (PHENERGAN) 25 mg tablet Take 1 tablet by mouth four times daily as needed for Nausea/Vomiting. Disp: 60 tablet Rfl: [address] (PROTONIX) 40 mg tablet Take 1 tablet by mouth once daily. (Patient taking differently: Take 40 mg by mouth as needed.) Disp: 90 tablet Rfl: 3 morphine SR (MS CONTIN) 15 mg 12 hr tablet Take 15 mg by mouth twice daily as needed. Disp: Rfl: No current facility-administered medications for this visit. SOCIAL HISTORY: Patient is . She smokes 1/4 ppd and reports her alcohol use as very rarely. The patient has a history of snorting cocaine. Quit in 2004. PHYSICAL EXAMINATION: Blood pressure 141/87, pulse 70, height 157.5 cm (5' 2), weight 84.8 kg (187 lb). General Appearance: Well appearing, alert, in no acute distress, well-hydrated, well nourished. Skin: Skin color, texture, turgor normal, no suspicious rashes or lesions. Head: Normocephalic, no masses, lesions or abnormalities. Eyes: Anicteric sclera. Neck: Supple, no adenopathy; thyroid symmetric, normal size. Lungs: Lungs clear to auscultation. No wheezing, rhonchi, rales. Heart: RRR without murmur. Abdomen: Bowel sounds normal. Abdomen soft. Moderate tenderness to palpation RUQ, 2 fingers below the lower rib border. Slight epigastric tenderness. Non-tender otherwise. No masses, organomegaly. Extremities: No deformities, edema, skin discoloration, clubbing or cyanosis. Peripheral Pulses: Normal. Impression: RUQ pain 2)nausea 3)altered bowel habits history of drug use Plan: Lab today. MRI due to abnormal CT The patient will be scheduled for an upper endoscopy and colonoscopy. She will require MAC. Preparation for the procedures, using GoLytely as the laxative, have been explained in detail. The risks, benefits, anticipated outcomes and possible complications were mentioned. I explained the procedure in understandable terms and the patient was given printed material concerning the planned procedure. The patient had the opportunity to ask questions concerning the planned procedure. The patient freely consents to the planned procedure. The patient is encouraged to call with any questions or concerns, or should there be any change in health status between now and the scheduled procedure. I have personally interviewed and examined this patient. I have read the information that the MA documented in this encounter. I spent 35 minutes in the visit, with more than 50% of the total [id number] time of the visit in counseling / coordination of care. Jessee Moore RN APRN.BOOTH USHER PROGRESS Observed: 07/14/2018 Status: COMPLETED Source: [place] 9:53 AM [facility] HNO ID: [id number] Author: Jessee Moore Service: (none) Author Type: Nurse Practitioner Type: Progress Notes Filed: 07/14/2018 2:33 PM Note Text: . MARISA Observed: 07/14/2018 Status: COMPLETED Source: [place] 9:40 AM [facility] REPOSITORY Office Visit ([facility]) BRITNEY MARIE ([id number]) 1960 [address] [facility] Date Time Provider Department 07/14/18 9:40 AM JESSEE MOORE) [facility] During your visit today, we recorded the following information about you: Pulse Blood pressure Weight Height 70/minute 141/87 84.8 kg 1.575 m Jessee Moore RN APRN.ANIKET 07/14/2018 2:33 PM Signed . Jessee Moore RN APRN.ANIKET 07/14/2018 2:33 PM Signed Britney Marie a 57 year old female who is a consultation requested by lindsey Malone NP, for an opinion regarding multiple upper GI complaints. My final recommendations will be communicated back to the requesting provider by way of shared Medical record. The patient has not been seen previously by this provider. The patient was seen by Lindsey on 07/07/18, leading to this consultation. That note has been reviewed and part as follows: Abdominal Pain: right side under ribs and extends to back x1 year She states that she feels that it is getting worse and was considerably worse after drinking some alcohol at a libertarian over the weekend. She states that she also has nausea and vomiting (swallowed it back down) and bloating. She does not have a specific food trigger, but states that all foods make it worse. She states that she has a decreased appetite and feels full faster. She states that even though she is not eating much, she is gaining weight. Fear of the pain associated with eating makes her avoid eating. She states that she will also feel hot and sweaty after eating even if the pain did not start yet. Zofran helps. She is taking her protonix. She states that she lindsay snot usually drink alcohol and it has probably been 3 years since she drank prior to this last weekend. Gallbladder has been removed. She states that she always has had looser stools. Denies watery, mucous, or foul odor. Denies fever or chills. Component Latest Ref Rng AND Units 07/07/2018 Albumin 3.9 - 4.9 g/dL 4.3 Bilirubin, Total 0.2 - 1.3 mg/dL 0.3 Bilirubin, Conjug <0.2 mg/dL <0.2 Alkaline Phosphatase 32 - 117 U/L 70 AST 13 - 35 U/L 25 ALT 7 - 38 U/L 22 Protein, Total 6.3 - 8.0 g/dL 6.4 Amylase 30 - 104 U/L 52 Lipase 16 - 61 U/L 44 Component Latest Ref Rng AND Units 07/07/2018 H. pylori IgG, Qualitative Negative Negative H pylori Ab, IgG U/mL 0.7 RUQ US 07/09/18: IMPRESSION: Hepatic parenchyma demonstrates coarsened echotexture and inhomogeneous echogenicity suggesting severe fatty infiltration. Within this limitation no focal solid or cystic lesions. No hepatosplenomegaly Gallbladder surgically absent. No apparent choledocholithiasis or intrahepatic biliary dilatation. The patient was seen by Dr. Yang in the past. She underwent upper endoscopy and colonoscopy on 9/25/13, for reported generalized abdominal pain. The procedure report has been reviewed and findings as follows: EGD Impression: ? ?- Christina-Olguin Grade I reflux esophagitis. Biopsied. ? - Normal examined duodenum. FINAL DIAGNOSIS 1. Stomach, antrum, biopsy (A) - Antral mucosa with reactive gastropathy; no morphologic evidence of H. pylori infection. 2. Esophagus, mid, biopsy (B) - Esophageal squamous mucosa with minimal reactive changes. Presenting complaint: The patient presents today reporting that she gets sick to her stomach as quickly as 15 minutes after I start eating. She reports RUQ pain. She tells me that she is seeing Dr. River about it tomorrow and that she had a CT done earlier this year because of it. CT scan reviewed: 12/01/17 IMPRESSION: 12 mm hepatic hypodensity, not seen on the prior enhanced study. ?This could represent a hemangioma that was isodense to liver at the time of imaging on the prior study. ?However, a new lesion is not excluded. ?MRI is recommended. Borderline extrahepatic ductal dilatation, heart or than seen on the prior study. ?This can be evaluated on MRI as well. I do not see that an MRI was done. I will order one. The patient tells me that she takes pantoprazole only as needed. Her prescription is was made in 2016, so I have questioned her as to if she is really taking it. She tells me that she had the pharmacist look at her medications and told her they were ok to take. I have explained that she needs to take that type of medicaiton for at least two weeks each as needed time. I have recommended that she use something else if only taking occasionally. With her complaints, I would suggest that she resume taking it daily. The patient tells me that she won' take Nexium since she heard it hurts her bones. I have explained that pantoprazole is the same class of drug, but the benefit could outweigh the risk. The patient reports it always feels like something is in my throat. She tells me that this has been going on forever. She tells me that soda is the only thing that clears it briefly. The patient reports I am constipated for days and will finally go, but it's diarrhea. Having a bowel movement about about every three or four days. When she finally gets the urge, it will literally be urgent. Sometimes diarrhea. REVIEW OF SYSTEMS: GENERAL: No weight loss, malaise or fevers RESPIRATORY: Sees Dr. Manzanares. Studies done CARDIOVASCULAR: Sees Dr. Vargas. HTN and ASHD. GI: The patient states that her appetite has been poor due to the stomach pain. She does not get hungry. There has been some nausea, no recent vomiting. She admits to occasional dysphagia and denies odynophagia. There has been indigestion without heartburn. There has been regurgitation. Bowel habits have been irregular. There has been diarrhea. There has been constipation. The patient denies rectal bleeding. There has not been melena. Daily abdominal pain that is located in the right upper quadrant. PSYCH: Positive for a history of depression: HEMATOLOGY/LYMPHOLOGY Negative for prolonged bleeding, bruising easily or swollen nodes ENDOCRINE: Negative for cold or heat intolerance, polyuria, polydipsia and goiter NEURO: Migraine headaches All other reviewed and negative other than HPI. PAST MEDICAL HISTORY Diagnosis Date - ASHD (arteriosclerotic heart disease) 10/14/2011 - Bandemia 01/29/2018 - Cervical disc disorder at C4-C5 level with radiculopathy - Cocaine substance abuse ([facility]) 2003 - COPD (chronic obstructive pulmonary disease) ([facility]) - Degenerative disc disease, cervical 2010 - Depression 2010 - Dysmetabolic syndrome X 01/21/2011 - Dyspnea on exertion - Erosive esophagitis 09/04/2014 - Esophageal reflux Gastroesophageal reflux - Essential hypertension, benign 09/09/2010 no meds currently 03/26 - Fibrocystic breast changes, bilateral 01/28/2017 - Hyperlipidemia LDL goal < 70 10/14/2011 - Migraine headache 01/23/2012 - Myalgia - Nodule of right lung 03/02/2018 02/09/18: 5 mm to recheck in 1 yr - Non morbid obesity due to excess calories 08/29/2016 - Obstructive sleep apnea - Osteoporosis 03/13/2011 - Other cervical disc displacement at C4-C5 level - Other intervertebral disc displacement, lumbar region - Other muscle spasm - Other specified dorsopathies, lumbosacral region - Peptic ulcer, unspecified site, unspecified as acute or chronic, without mention of hemorrhage, perforation, or obstruction Peptic ulcer disease - Spinal stenosis, cervical region - Spondylosis without myelopathy or radiculopathy, cervical region - Tobacco abuse 01/23/2012 - Trigeminal neuralgia 12/29/2013 - Vitamin D deficiency 03/19/2011 PAST SURGICAL HISTORY Procedure Laterality Date - ANTERIOR INTERBODY FUSION, CERVICAL 1992 - APPENDECTOMY - CHOLECYSTECTOMY - COLONOSCOP W/ OR W/O [facility] SPEC 04/30/2010 Dr. Rayshawn Shrestha - COLONOSCOP W/ OR W/O [facility] SPEC 08/10/13 Colonoscopy - EGD W/O OR W/BRUSH/WASH 08/10/13 EGD - LAPAROSCOPY, SURGICAL, ESOPHAGOGAST 01-25- LAP KAMILA - LEFT HEART CATH,PERCUTANEOUS 12/17/11 Cardiac cath, L heart, see scanned report - Tonsilectomy - TUBAL LIGATION, - XR CERVICAL FUSION OR 1998 posterior fusion FAMILY HISTORY Problem Relation Age of Onset - Heart Father 35 - Cancer Father - Cancer Mother - Breast Cancer Paternal Grandmother - Breast Cancer Paternal Aunt - Cancer Maternal Uncle LUNG - Heart Maternal Grandmother Current Outpatient Prescriptions: ondansetron orally disintegrating (ZOFRAN ODT) 4 mg disintegrating tablet Take 1 tablet by mouth every 6 hours as needed for Nausea/Vomiting. Disp: 20 tablet Rfl: 1 benzonatate (TESSALON PERLES) 100 mg capsule Take 2 capsules by mouth three times daily as needed. Disp: 30 capsule Rfl: 0 albuterol (PROVENTIL) 2.5 mg /3 mL (0.083 %) nebulizer solution Use 3 mL via nebulizer every 4 hours as needed for Wheezing/Shortness of Breath. Use over 5-15minutes. Disp: 1 Package Rfl: 0 albuterol HFA (VENTOLIN HFA) 90 mcg/actuation inhaler Inhale 2 Puffs as instructed every 4 hours as needed for Wheezing/Shortness of Breath. Disp: 1 Inhaler Rfl: 0 predniSONE (DELTASONE) 10 mg tablet Take by mouth- 4 tabs daily for 3 days, then 2 tabs daily for 3 days, then 1 tab daily for 3 days with food. Disp: 21 tablet Rfl: 0 umeclidinium-vilanterol (ANORO ELLIPTA) 62.5-25 mcg/actuation inhaler Inhale 1 Inhalation as instructed once daily. Inhale one puff once daily. DO NOT CLICK OPEN UNTIL READY FOR DOSE Disp: 1 Each Rfl: 11 coenzyme Q10 (COQ-10) 100 mg cap capsule Take 1 capsule by mouth twice daily. Disp: 30 capsule Rfl: 11 atorvastatin (LIPITOR) 80 mg tablet Take 1 tablet by mouth once daily. Disp: 90 tablet Rfl: 3 nitroglycerin sublingual (NITROQUICK) 0.4 mg SL tablet Dissolve 1 tablet under the tongue as needed. FOR CHEST PAIN. IF NO RELIEF CALL 911 Disp: 1 Bottle of 25 Rfl: 3 metoprolol succinate ER (TOPROL XL) 50 mg 24 hr tablet Take 1 tablet by mouth once daily. Disp: 30 tablet Rfl: 12 loratadine (CLARITIN) 10 mg tablet Take 1 tablet by mouth once daily. Disp: 30 tablet Rfl: 2 pregabalin (LYRICA) 100 mg capsule Take 1 capsule by mouth three times daily. Disp: Rfl: albuterol HFA (PROAIR HFA) 90 mcg/actuation inhaler Inhale 2 Puffs as instructed every 4 hours as needed. Disp: 1 Inhaler Rfl: 0 alendronate (FOSAMAX) 70 mg tablet Take 1 tablet by mouth once each week. Take with a full glass of water, on an empty stomach; do NOT lie down for 30minutes. Disp: 4 tablet Rfl: 2 promethazine (PHENERGAN) 25 mg tablet Take 1 tablet by mouth four times daily as needed for Nausea/Vomiting. Disp: 60 tablet Rfl: [address] (PROTONIX) 40 mg tablet Take 1 tablet by mouth once daily. (Patient taking differently: Take 40 mg by mouth as needed.) Disp: 90 tablet Rfl: 3 morphine SR (MS CONTIN) 15 mg 12 hr tablet Take 15 mg by mouth twice daily as needed. Disp: Rfl: No current facility-administered medications for this visit. SOCIAL HISTORY: Patient is . She smokes 1/4 ppd and reports her alcohol use as very rarely. The patient has a history of snorting cocaine. Quit in 2004. PHYSICAL EXAMINATION: Blood pressure 141/87, pulse 70, height 157.5 cm (5' 2), weight 84.8 kg (187 lb). General Appearance: Well appearing, alert, in no acute distress, well-hydrated, well nourished. Skin: Skin color, texture, turgor normal, no suspicious rashes or lesions. Head: Normocephalic, no masses, lesions or abnormalities. Eyes: Anicteric sclera. Neck: Supple, no adenopathy; thyroid symmetric, normal size. Lungs: Lungs clear to auscultation. No wheezing, rhonchi, rales. Heart: RRR without murmur. Abdomen: Bowel sounds normal. Abdomen soft. Moderate tenderness to palpation RUQ, 2 fingers below the lower rib border. Slight epigastric tenderness. Non-tender otherwise. No masses, organomegaly. Extremities: No deformities, edema, skin discoloration, clubbing or cyanosis. Peripheral Pulses: Normal. Impression: RUQ pain 2)nausea 3)altered bowel habits history of drug use Plan: Lab today. MRI due to abnormal CT The patient will be scheduled for an upper endoscopy and colonoscopy. She will require MAC. Preparation for the procedures, using GoLytely as the laxative, have been explained in detail. The risks, benefits, anticipated outcomes and possible complications were mentioned. I explained the procedure in understandable terms and the patient was given printed material concerning the planned procedure. The patient had the opportunity to ask questions concerning the planned procedure. The patient freely consents to the planned procedure. The patient is encouraged to call with any questions or concerns, or should there be any change in health status between now and the scheduled procedure. I have personally interviewed and examined this patient. I have read the information that the MA documented in this encounter. I spent 35 minutes in the visit, with more than 50% of the total [id number] time of the visit in counseling / coordination of care. Jessee Moore RN APRN.ANIKET Moore RN APRN.ANIKET 07/14/2018 10:53 AM Addendum Begin Benefiber. Start by taking one tablespoon in your bottle of water daily for 3-4 weeks. Increase to two tablespoons daily for 3-4 weeks. Finally take three tablespoons daily. At that point you may divide the dose and take twice a day, if you'd like. Do not stop using this. Send me a [employer] message with what the packets are. I will send you the results of the blood work. Please follow the instructions for the test that looks at your liver. (MRI) It will take a day or two after the test for us to get the results. Call [phone], and ask to speak to a nurse in GI, if you have any questions or concerns in the mean time. Please follow the instructions for upper endoscopy and colonoscopy. This will be in [place], with Dr. Mccoy, with the deeper sedation we call MAC. The kitchenwhere maker will contact you to schedule your procedures. Follow up with me after the procedure. Referring Provider: LINDSEY MALONE ([facility]) [[id number]] Allergies As of Date: 07/14/2018 Noted Allergy Reaction LATEX 10/21/2013 2 - Rash DARVOCET A500 (PROPOXYPHENE N-CORRIE*08/05/2017 9 - Itching DARVOCET-N 100 (PROPOXYPHENE N-AC*12/11/2009 9 - Itching DILAUDID (HYDROMORPHONE HCL) 08/05/2017 14 - Other: See Comments Comments: Burning sensation over entire body EES [Other] 11/24/2005 HEPARIN ANALOGUES 06/09/2013 4 - Hives 7 - Swelling KEFLEX (CEPHALEXIN) 08/05/2017 7 - Swelling 9 - Itching 12 - Shortness of Breath LEVAQUIN (LEVOFLOXACIN) 11/10/2013 9 - Itching LISINOPRIL 01/17/2015 14 - Other: See Comments Comments: flushing OXYCODONE 08/05/2017 9 - Itching OXYCOTIN (OXYCODONE) 12/11/2009 4 - Hives 7 - Swelling 9 - Itching PENICILLIN 08/05/2017 10 - Anaphylaxis Comments: 4 years old PERCOCET (OXYCODONE-ACETAMINOPHEN)12/11/2009 9 - Itching POLYTRIM (POLYMYXIN B SULF-TRIMET*03/29/2015 7 - Swelling 9 - Itching SULFA (SULFONAMIDE ANTIBIOTICS) 11/24/2005 4 - Hives TEGRETOL (CARBAMAZEPINE) 06/04/2015 1 - Mental Status Change VIBRAMYCIN (DOXYCYCLINE CALCIUM) 08/05/2017 4 - Hives 9 - Itching VICODIN (HYDROCODONE-ACETAMINOPHE*11/24/2005 ADHESIVE TAPE (ROSINS) 03/03/2012 2 - Rash 9 - Itching Date Reviewed: 07/14/2018 Reviewed by: Davina Hunter Ma - Fully Assessed Reason for Visit: GERD [548] Nausea [70] Gas [49] Primary Visit Diagnosis:History of drug abuse [Z87.898] Other Visit Diagnoses:Nausea [R11.0] Globus sensation [F45.8] RUQ pain [R10.11] Abnormal CT of liver [R93.2] Right upper quadrant pain [R10.11] Order(s):HEP REMOTE PANEL BL [SQHREMOP] Order #: [id number] FUTURE EGD GEN ANES [[id number]] Order #: [id number] FUTURE COLONOSCOPY GEN ANES [[id number]] Order #: [id number] FUTURE peg 3350-electrolytes (COLYTE) 240-22.72-6.72 -5.84 gram solutionTake 4,000 mL by mouth one time only for 1 dose.Disp: 1 BottleRfl: 0 MRI LIVER WO/W IVCON [[id number]] Order #: [id number] FUTURE iv contrast (will be provided with radiology test)MRI Liver Inject, intravenously, once for 1 dose. No IV access, insert saline lock prior to the beginning of sedation, infusion, injection of imaging exam. Discontinue saline lock post exam. If Pt. has a central line or IVAD, may access for administration according to line specific nursing protocol. Once exam is complete flush line and de- access according to line specific nursing protocol in the MR contrast administration guidelines link.Disp: 1 EachRfl: 0 Prescriptions as of 07/14/2018 Sig: PEG 3350 240 GRAM-ELECTROLYTE* Take 4,000 mL by mouth one ti* IV CONTRAST (RADIOLOGY PROCED* MRI Liver Inject, intravenous* ONDANSETRON 4 MG DISINTEGRATI* Take 1 tablet by mouth every * BENZONATATE 100 MG CAPSULE Take 2 capsules by mouth thre* ALBUTEROL SULFATE 2.5 MG/3 ML* Use 3 mL via nebulizer every * ALBUTEROL SULFATE HFA 90 MCG/* Inhale 2 Puffs as instructed * PREDNISONE 10 MG TABLET Take by mouth- 4 tabs daily f* UMECLIDINIUM 62.5 MCG-VILANTE* Inhale 1 Inhalation as instru* COENZYME Q10 100 MG CAPSULE Take 1 capsule by mouth twice* ATORVASTATIN 80 MG TABLET Take 1 tablet by mouth once d* NITROGLYCERIN 0.4 MG SUBLINGU* Dissolve 1 tablet under the t* METOPROLOL SUCCINATE ER 50 MG* Take 1 tablet by mouth once d* LORATADINE 10 MG TABLET Take 1 tablet by mouth once d* PREGABALIN 100 MG CAPSULE Take 1 capsule by mouth three* ALBUTEROL SULFATE HFA 90 MCG/* Inhale 2 Puffs as instructed * ALENDRONATE 70 MG TABLET Take 1 tablet by mouth once e* PANTOPRAZOLE 40 MG TABLET,DEL* Take 1 tablet by mouth once d* Patient taking differently: Take 40 mg by mouth as needed. MORPHINE ER 15 MG TABLET,EXTE* Take 15 mg by mouth twice octavio* Problem List As Of Date 07/14/2018 Noted Resolved Cocaine substance abuse [F14.10] 09/04/2014 Essential hypertension, benign [I10] INVALID FOR* Priority: F More... Degenerative disc disease, cervical [M50.30] INVALID FOR* Priority: D More... Depression [F32.9] INVALID FOR* Priority: E More... Dysmetabolic syndrome X [E88.81] INVALID FOR* Osteoporosis [M81.0] INVALID FOR* Cervical disc disorder [M50.90] INVALID FOR* Vitamin D deficiency [E55.9] INVALID FOR* Hyperlipidemia with target LDL less than 70 [E7*INVALID FOR* Priority: G More... ASHD (arteriosclerotic heart disease) [I25.10] INVALID FOR* More... Chest pain [R07.9] INVALID FOR*09/04/2014 Priority: B More... Tobacco abuse [Z72.0] INVALID FOR* Priority: I More... Tobacco abuse counseling [Z71.6] INVALID FOR* Migraine headache [G43.909] INVALID FOR* Priority: H More... SUMMARY [V999.95] INVALID FOR* Priority: A More... Asthma [J45.909] INVALID FOR* Priority: C More... Elevated gastrin level [E16.4] INVALID FOR* Flushing [R23.2] INVALID FOR* Trigeminal neuralgia [G50.0] INVALID FOR* Erosive esophagitis [K22.10] INVALID FOR* Spontaneous ecchymoses [R23.3] INVALID FOR* Lumbar back pain with radiculopathy affecting l*INVALID FOR* Arteriosclerosis of carotid artery [I65.29] INVALID FOR* MELYSSA (obstructive sleep apnea) [G47.33] INVALID FOR* Trigeminal neuralgia of right side of face [G50*INVALID FOR* Obesity (BMI 30-39.9) [E66.9] INVALID FOR* Grief [F43.21] INVALID FOR* Other seasonal allergic rhinitis [J30.2] INVALID FOR* Anxiety and depression [F41.9, F32.9] INVALID FOR* Sense of smell altered [R43.9] INVALID FOR* Nonintractable headache [R51] INVALID FOR* Non morbid obesity due to excess calories [E66.*INVALID FOR* Fibrocystic breast changes, bilateral [N60.11, *INVALID FOR* Orthostatic hypotension [I95.1] INVALID FOR* Moderate episode of recurrent major depressive *INVALID FOR* 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 Other instructions from your clinician: Begin Benefiber. Start by taking one tablespoon in your bottle of water daily for 3-4 weeks. Increase to two tablespoons daily for 3-4 weeks. Finally take three tablespoons daily. At that point you may divide the dose and take twice a day, if you'd like. Do not stop using this. Send me a [employer] message with what the packets are. I will send you the results of the blood work. Please follow the instructions for the test that looks at your liver. (MRI) It will take a day or two after the test for us to get the results. Call [phone], and ask to speak to a nurse in GI, if you have any questions or concerns in the mean time. Please follow the instructions for upper endoscopy and colonoscopy. This will be in [place], with Dr. Mccoy, with the deeper sedation we call [facility] [place]. The [facility] maker will contact you to schedule your procedures. Follow up with me after the procedure. Prescriptions ordered this encounter Disp Refills Start End PEG 3350 240 GRAM-ELECTROLYTES 22.72* 1 Nick* 0 07/14/2018 07/14/2018 Route: ORAL Sig: Take 4,000 mL by mouth one time only for 1 dose. IV CONTRAST (RADIOLOGY PROCEDURE) 1 Ea* 0 07/14/2018 07/15/2018 Class: In Office Sig: MRI Liver Inject, intravenously, once for 1 dose. No IV access, insert saline lock prior to the beginning of sedation, infusion, injection of imaging exam. Discontinue saline lock post exam. If Pt. has a central line or IVAD, may access for administration according to line specific nursing protocol. Once exam is complete flush line and de-access according to line specific nursing protocol in the MR contrast administration guidelines link. Medications Discontinued During This Encounter promethazine (PHENERGAN) 25 mg tablet 60 t* 2 10/29/2016 07/14/2018 Route: ORAL Sig: Take 1 tablet by mouth four times daily as needed for Nausea/Vomiting. Disc: Reason for discontinue is not on file. Follow-up and Disposition History Recorded Encounter Status:Closed by JESSEE MOORE CNP on 07/14/18 PROGRESS Observed: 07/09/2018 Status: COMPLETED Source: [place] 1:31 PM [facility] REPOSITORY HNO ID: [id number] Author: Mary Olvera Service: (none) Author Type: [employer] Equipment Mechanic Type: Progress Notes Filed: 07/09/2018 1:31 PM Note Text: Radiology Service Progress Note PATIENT NAME: Britney Marie DATE OF SERVICE: July 09, 2018 TIME: 1:31 PM PATIENT IDENTITY VERIFICATION COMPLETED USING TWO (2) METHODS: Patient confirmed name verbally and Date of . PATIENT GENDER DATA: Female. status: : No status: N/A PATIENT RELEVANT IMPLANT DATA REVIEWED: Not Applicable RADIOLOGY DEPARTMENT: Ultrasound PERIPHERAL IV DATA: Not applicable SIGNED BY: MARY OLVERA RDMS RVDavy July 09, 2018 1:31 PM US ABD SPLEEN -NB Observed: 07/09/2018 Status: F Source: [place] 1:30 PM [facility] REPOSITORY * * *Final Report* * * DATE OF EXAM: Jul 09 2018 1:30PM WRU 1232 - US ABD SPLEEN -NB / PROCEDURE REASON: multiple diagnoses * * * * Physician Interpretation * * * * EXAMINATION: RIGHT UPPER QUADRANT ULTRASOUND AND SPLENIC ULTRASOUND CLINICAL HISTORY: Nausea. Loss of appetite. History of cholecystectomy. TECHNIQUE: Sonography of the right upper quadrant was performed. Images were obtained and stored in a permanent archive. MQ: URUQ_1 COMPARISON: CT dated 30 November 2017 LIMITATIONS: Study is limited due to shadowing from bowel gas and patient body habitus. RESULT: Pancreas: Normal sonographic appearance. Portions obscured: Body and tail Liver: No hepatomegaly Echotexture: Coarsened Echogenicity: Inhomogeneous Surface contour: Smooth Lesions: None. Spleen: The spleen is homogeneous and measures a sagittal length of 10 cm. No focal solid or cystic mass. Biliary: The gallbladder surgically absent. Common duct at the genu measures 0.62 cm. No obvious intra or extrahepatic biliary dilatation or apparent choledocholithiasis Right Kidney: No hydronephrosis. Ascites: None. IMPRESSION: Hepatic parenchyma demonstrates coarsened echotexture and inhomogeneous echogenicity suggesting severe fatty infiltration. Within this limitation no focal solid or cystic lesions. No hepatosplenomegaly Gallbladder surgically absent. No apparent choledocholithiasis or intrahepatic biliary dilatation. Electrical Test Technician: [facility] Transcribe Date/Time: Jul 09 2018 1:32P Dictated by : CIARRA BRYANT MD This examination was interpreted and the report reviewed and electronically signed by: CIARRA BRYANT MD on Jul 09 2018 1:36PM EST [id number] US ABD RIGHT UPPER Observed: 07/09/2018 Status: F Source: [place] 1:30 PM [facility] REPOSITORY * * *Final Report* * * DATE OF EXAM: Jul 09 2018 1:30PM WRU 1032 - US ABD RIGHT UPPER QUADRANT / PROCEDURE REASON: multiple diagnoses * * * * Physician Interpretation * * * * EXAMINATION: RIGHT UPPER QUADRANT ULTRASOUND AND SPLENIC ULTRASOUND CLINICAL HISTORY: Nausea. Loss of appetite. History of cholecystectomy. TECHNIQUE: Sonography of the right upper quadrant was performed. Images were obtained and stored in a permanent archive. MQ: URUQ_1 COMPARISON: CT dated 30 November 2017 LIMITATIONS: Study is limited due to shadowing from bowel gas and patient body habitus. RESULT: Pancreas: Normal sonographic appearance. Portions obscured: Body and tail Liver: No hepatomegaly Echotexture: Coarsened Echogenicity: Inhomogeneous Surface contour: Smooth Lesions: None. Spleen: The spleen is homogeneous and measures a sagittal length of 10 cm. No focal solid or cystic mass. Biliary: The gallbladder surgically absent. Common duct at the genu measures 0.62 cm. No obvious intra or extrahepatic biliary dilatation or apparent choledocholithiasis Right Kidney: No hydronephrosis. Ascites: None. IMPRESSION: Hepatic parenchyma demonstrates coarsened echotexture and inhomogeneous echogenicity suggesting severe fatty infiltration. Within this limitation no focal solid or cystic lesions. No hepatosplenomegaly Gallbladder surgically absent. No apparent choledocholithiasis or intrahepatic biliary dilatation. Electrical Test Technician: RICKI Transcribe Date/Time: Jul 09 2018 1:32P Dictated by : CIARRA BRYANT MD This examination was interpreted and the report reviewed and electronically signed by: CIARRA BRYANT MD on Jul 09 2018 1:36PM EST [id number] PROGRESS Observed: 07/07/2018 Status: COMPLETED Source: [place] 11:27 AM [facility] [place] REPOSITORY HNO ID: [id number] Author: Lindsey (Aniket) Kira Service: (none) Author Type: Nurse Practitioner Type: Progress Notes Filed: 07/07/2018 11:37 AM Note Text: 07/07/2018 Patient presents with: Abdominal Pain: right ian eunder ribs and extends to back x1 year SUBJECTIVE: This is a 57 year old that is here today for Above Complaints. She states that she feels that it is getting worse and was considerably worse after drinking some alcohol at a libertarian over the weekend. She states that she also has nausea and vomiting (swallowed it back down) and bloating. She does not have a specific food trigger, but states that all foods make it worse. She states that she has a decreased appetite and feels full faster. She states that even though she is not eating much, she is gaining weight. Fear of the pain associated with eating makes her avoid eating. She states that she will also feel hot and sweaty after eating even if the pain did not start yet. Zofran helps. She is taking her protonix. She states that she lindsay snot usually drink alcohol and it has probably been 3 years since she drank prior to this last weekend. Gallbladder has been removed. She states that she always has had looser stools. Denies watery, mucous, or foul odor. Denies fever or chills. PAST MEDICAL HISTORY Diagnosis Date - ASHD (arteriosclerotic heart disease) 10/14/2011 - Bandemia 01/29/2018 - Cervical disc disorder at C4-C5 level with radiculopathy - Cocaine substance abuse (HCC) 2003 - COPD (chronic obstructive pulmonary disease) (HCC) - Degenerative disc disease, cervical 2010 - Depression 2010 - Dysmetabolic syndrome X 01/21/2011 - Dyspnea on exertion - Erosive esophagitis 09/04/2014 - Esophageal reflux Gastroesophageal reflux - Essential hypertension, benign 09/09/2010 no meds currently 03/26 - Fibrocystic breast changes, bilateral 01/28/2017 - Hyperlipidemia LDL goal < 70 10/14/2011 - Migraine headache 01/23/2012 - Myalgia - Nodule of right lung 03/02/2018 02/09/18: 5 mm to recheck in 1 yr - Non morbid obesity due to excess calories 08/29/2016 - Obstructive sleep apnea - Osteoporosis 03/13/2011 - Other cervical disc displacement at C4-C5 level - Other intervertebral disc displacement, lumbar region - Other muscle spasm - Other specified dorsopathies, lumbosacral region - Peptic ulcer, unspecified site, unspecified as acute or chronic, without mention of hemorrhage, perforation, or obstruction Peptic ulcer disease - Spinal stenosis, cervical region - Spondylosis without myelopathy or radiculopathy, cervical region - Tobacco abuse 01/23/2012 - Trigeminal neuralgia 12/29/2013 - Vitamin D deficiency 03/19/2011 ALLERGIES Latex; Darvocet A500 [Propoxyphene N-Acetaminophen]; Darvocet-N 100 [Propoxyphene N-Acetaminophen]; Dilaudid [Hydromorphone Hcl]; Ees [Other]; Heparin Analogues; Keflex [Cephalexin]; Levaquin [Levofloxacin]; Lisinopril; Oxycodone; Oxycotin [Oxycodone]; Penicillin; Percocet [Oxycodone-Acetaminophen]; Polytrim [Polymyxin B Sulf-Trimethoprim]; Sulfa (Sulfonamide Antibiotics); Tegretol [Carbamazepine]; Vibramycin [Doxycycline Calcium]; Vicodin [Hydrocodone-Acetaminophen]; Adhesive Tape (Rosins) MEDICATIONS Current Outpatient Prescriptions: ondansetron orally disintegrating (ZOFRAN ODT) 4 mg disintegrating tablet Take 1 tablet by mouth every 6 hours as needed for Nausea/Vomiting. albuterol (PROVENTIL) 2.5 mg /3 mL (0.083 %) nebulizer solution Use 3 mL via nebulizer every 4 hours as needed for Wheezing/Shortness of Breath. Use over 5-15minutes. albuterol HFA (VENTOLIN HFA) 90 mcg/actuation inhaler Inhale 2 Puffs as instructed every 4 hours as needed for Wheezing/Shortness of Breath. umeclidinium-vilanterol (ANORO ELLIPTA) 62.5-25 mcg/actuation inhaler Inhale 1 Inhalation as instructed once daily. Inhale one puff once daily. DO NOT CLICK OPEN UNTIL READY FOR DOSE coenzyme Q10 (COQ-10) 100 mg cap capsule Take 1 capsule by mouth twice daily. atorvastatin (LIPITOR) 80 mg tablet Take 1 tablet by mouth once daily. nitroglycerin sublingual (NITROQUICK) 0.4 mg SL tablet Dissolve 1 tablet under the tongue as needed. FOR CHEST PAIN. IF NO RELIEF CALL 911 metoprolol succinate ER (TOPROL XL) 50 mg 24 hr tablet Take 1 tablet by mouth once daily. loratadine (CLARITIN) 10 mg tablet Take 1 tablet by mouth once daily. pregabalin (LYRICA) 100 mg capsule Take 1 capsule by mouth three times daily. albuterol HFA (PROAIR HFA) 90 mcg/actuation inhaler Inhale 2 Puffs as instructed every 4 hours as needed. alendronate (FOSAMAX) 70 mg tablet Take 1 tablet by mouth once each week. Take with a full glass of water, on an empty stomach; do NOT lie down for 30minutes. promethazine (PHENERGAN) 25 mg tablet Take 1 tablet by mouth four times daily as needed for Nausea/Vomiting. pantoprazole DR (PROTONIX) 40 mg tablet Take 1 tablet by mouth once daily. (Patient taking differently: Take 40 mg by mouth as needed.) morphine SR (MS CONTIN) 15 mg 12 hr tablet Take 15 mg by mouth twice daily as needed. benzonatate (TESSALON PERLES) 100 mg capsule Take 2 capsules by mouth three times daily as needed. predniSONE (DELTASONE) 10 mg tablet Take by mouth- 4 tabs daily for 3 days, then 2 tabs daily for 3 days, then 1 tab daily for 3 days with food. No current facility-administered medications for this visit. Medications and allergies reviewed by this provider. SOCIAL HISTORY Social History Marital status: Spouse name: Years of education: Number of children: 3 Occupational History Occupation Employer Comment DISABLED Social History Main Topics Smoking status: Current Every Day Smoker Packs/day: 0.25 Years: 45.00 Types: Cigarettes Smokeless tobacco: Never Used Comment: trying to quit Alcohol use: No Drug use: No Comment: none since 06/2005/cocaine abuse Sexual activity: Not Currently Partners with: Male REVIEW OF SYSTEMS see HPI OBJECTIVE: BP 124/80 Pulse 88 Resp 20 Wt 85.3 kg (188 lb) BMI 34.39 kg/m? . Vital signs reviewed by this provider. PHYSICAL EXAMINATION: General appearance: Well appearing, alert, in no acute distress, well-hydrated, well nourished. and changing positions frequently for comfort Skin: Skin color, texture, turgor normal, no suspicious rashes or lesions Eyes: Anicteric sclera. Lungs: Lungs clear to auscultation. No wheezing, rhonchi, rales Heart: RRR without murmur, gallop, or rubs. No ectopy Abdomen: Abdomen soft, non-tender. Bowel sounds normal. No masses, organomegaly, Positive findings: tenderness moderate epigastric and RUQ,- no guarding, rigidity, or rebound. + bloating. Extremities: No deformities, edema, skin discoloration, clubbing or cyanosis. Good capillary refill. , Pulses: 2+ ASSESSMENT/PLAN: 1. RUQ pain - ICD9: 789.01, ICD10: R10.11 (primary diagnosis) Differential Diagnosis includes GERD, PUD and liver or concern for duct blockage - Labs of LFT's, H pylori Antibodies, Amylase and Lipase - Work up with RUQ ultrasound - Increase fiber in diet - [place] low residue diet - Referral to Gastroenterology - HEPATIC FUNCTION PNL - AMYLASE BLD - LIPASE BLD - US ABD RT UPPER QUADRANT 2. Gastroesophageal reflux disease, esophagitis presence not specified - ICD9: 530.81, ICD10: K21.9 - Discussed lifestyle modifications including losing weight, limiting caffeine, no meals three hours before sleep and head of bed elevation - Continue treatment with protonix QD - Refer for GI consult- would like to consider EGD - CONSULT TO GASTROENTEROLOGY 3. Nausea - ICD9: 787.02, ICD10: R11.0 - see above - continue zofran PRN - CONSULT TO GASTROENTEROLOGY - H PYLORI IGG AB - US ABD RT UPPER QUADRANT 4. Bloating - ICD9: 787.3, ICD10: R14.0 - see above - CONSULT TO GASTROENTEROLOGY - H PYLORI IGG AB - US ABD RT UPPER QUADRANT 5. Decreased appetite - ICD9: 783.0, ICD10: R63.0 - see above - H PYLORI IGG AB - US ABD RT UPPER QUADRANT - CONSULT TO GASTROENTEROLOGY Lindsey Malone APRN.BOOTH USHER AMYLASE Collected: 07/07/2018 Status: F Source: [place] 11: AM [facility] REPOSITORY TYPE CODE TESTS RESULT OUT OF REFERENCE UNITS RANGE LAB AMYL 30-104 U/L Amylase 52 Performed By: #### AMYL, HFP, LIPA, HPYLRI #### [facility] [address] [id number] HEPATIC FUNCTN PANEL Collected: 07/07/2018 Status: F Source: [place] 11: [facility] REPOSITORY TYPE CODE TESTS RESULT OUT OF REFERENCE UNITS RANGE LAB ALB 3.9-4.9 g/dL Albumin 4.3 LAB TBIL 0.2-1.3 mg/dL Bilirubin, Total 0.3 LAB CBIL <0.2 mg/dL Bilirubin,Conjuga <0.2 monika LAB ALKP 32-117 U/L Alkaline Phosphatase 70 LAB AST 13-35 U/L AST 25 LAB ALT 7-38 U/L ALT 22 LAB TP 6.3-8.0 g/dL Protein, Total 6.4 Performed By: #### AMYL, HFP, LIPA, HPYLRI #### [facility] [employer] [address] [address] LIPASE Collected: 07/07/2018 Status: F Source: [place] 11: AM [facility] REPOSITORY TYPE CODE TESTS RESULT OUT OF REFERENCE UNITS RANGE LAB LIPA 16-61 U/L Lipase 44 Performed By: #### AMYL, HFP, LIPA, HPYLRI #### [facility] [employer] [address] [place], [place] [address] HELICO PYLORI AB Collected: 07/07/2018 Status: F Source: [place] 11: [facility] REPOSITORY TYPE CODE TESTS RESULT OUT OF REFERENCE UNITS RANGE LAB HPYLRL Negative H. pylori Negative IgG, Qual Result Comment: H. pylori IgG antibodies were not detected in the sample. Negative results by this test do not preclude recent primary infection. LAB HPYLR U/mL H pylori Ab, IgG 0.7 Result Comment: U/mL are interpreted as follows: Negative specimens <0.9 Indeterminate specimens >=0.9 to <1.1 Positive specimens >=1.1 Results were obtained with the IMMULITE 2000 H.pylori IgG EIA. Results obtained from other manufacturers' assay methods may not be used interchangeably. Performed By: #### AMYL, HFP, LIPA, HPYLRI #### [facility] [address] [place] [address] CNOV Observed: 07/07/2018 Status: COMPLETED Source: [place] 10:20 AM [facility] REPOSITORY Office Visit (FAMPWS) BRITNEY MARIE ([id number]) 1960 [facility] Date Time Provider Department 07/07/18 10:20 AM LINDSEY MALONE ([facility]) [facility] During your visit today, we recorded the following information about you: Pulse Respiration Blood pressure Weight 88/minute 20/minute 124/80 85.3 kg Lindsey Malone APRN.CNP 07/07/2018 11:37 AM Signed 07/07/2018 Patient presents with: Abdominal Pain: right ian eunder ribs and extends to back x1 year SUBJECTIVE: This is a 57 year old that is here today for Above Complaints. She states that she feels that it is getting worse and was considerably worse after drinking some alcohol at a libertarian over the weekend. She states that she also has nausea and vomiting (swallowed it back down) and bloating. She does not have a specific food trigger, but states that all foods make it worse. She states that she has a decreased appetite and feels full faster. She states that even though she is not eating much, she is gaining weight. Fear of the pain associated with eating makes her avoid eating. She states that she will also feel hot and sweaty after eating even if the pain did not start yet. Zofran helps. She is taking her protonix. She states that she lindsay snot usually drink alcohol and it has probably been 3 years since she drank prior to this last weekend. Gallbladder has been removed. She states that she always has had looser stools. Denies watery, mucous, or foul odor. Denies fever or chills. PAST MEDICAL HISTORY Diagnosis Date - ASHD (arteriosclerotic heart disease) 10/14/2011 - Bandemia 01/29/2018 - Cervical disc disorder at C4-C5 level with radiculopathy - Cocaine substance abuse ([facility]) 2003 - COPD (chronic obstructive pulmonary disease) ([facility]) - Degenerative disc disease, cervical 2010 - Depression 2010 - Dysmetabolic syndrome X 01/21/2011 - Dyspnea on exertion - Erosive esophagitis 09/04/2014 - Esophageal reflux Gastroesophageal reflux - Essential hypertension, benign 09/09/2010 no meds currently 03/26 - Fibrocystic breast changes, bilateral 01/28/2017 - Hyperlipidemia LDL goal < 70 10/14/2011 - Migraine headache 01/23/2012 - Myalgia - Nodule of right lung 03/02/2018 02/09/18: 5 mm to recheck in 1 yr - Non morbid obesity due to excess calories 08/29/2016 - Obstructive sleep apnea - Osteoporosis 03/13/2011 - Other cervical disc displacement at C4-C5 level - Other intervertebral disc displacement, lumbar region - Other muscle spasm - Other specified dorsopathies, lumbosacral region - Peptic ulcer, unspecified site, unspecified as acute or chronic, without mention of hemorrhage, perforation, or obstruction Peptic ulcer disease - Spinal stenosis, cervical region - Spondylosis without myelopathy or radiculopathy, cervical region - Tobacco abuse 01/23/2012 - Trigeminal neuralgia 12/29/2013 - Vitamin D deficiency 03/19/2011 ALLERGIES Latex; Darvocet A500 [Propoxyphene N-Acetaminophen]; Darvocet-N 100 [Propoxyphene N-Acetaminophen]; Dilaudid [Hydromorphone Hcl]; Ees [Other]; Heparin Analogues; Keflex [Cephalexin]; Levaquin [Levofloxacin]; Lisinopril; Oxycodone; Oxycotin [Oxycodone]; Penicillin; Percocet [Oxycodone-Acetaminophen]; Polytrim [Polymyxin B Sulf-Trimethoprim]; Sulfa (Sulfonamide Antibiotics); Tegretol [Carbamazepine]; Vibramycin [Doxycycline Calcium]; Vicodin [Hydrocodone-Acetaminophen]; Adhesive Tape (Rosins) MEDICATIONS Current Outpatient Prescriptions: ondansetron orally disintegrating (ZOFRAN ODT) 4 mg disintegrating tablet Take 1 tablet by mouth every 6 hours as needed for Nausea/Vomiting. albuterol (PROVENTIL) 2.5 mg /3 mL (0.083 %) nebulizer solution Use 3 mL via nebulizer every 4 hours as needed for Wheezing/Shortness of Breath. Use over 5-15minutes. albuterol HFA (VENTOLIN HFA) 90 mcg/actuation inhaler Inhale 2 Puffs as instructed every 4 hours as needed for Wheezing/Shortness of Breath. umeclidinium-vilanterol (ANORO ELLIPTA) 62.5-25 mcg/actuation inhaler Inhale 1 Inhalation as instructed once daily. Inhale one puff once daily. DO NOT CLICK OPEN UNTIL READY FOR DOSE coenzyme Q10 (COQ-10) 100 mg cap capsule Take 1 capsule by mouth twice daily. atorvastatin (LIPITOR) 80 mg tablet Take 1 tablet by mouth once daily. nitroglycerin sublingual (NITROQUICK) 0.4 mg SL tablet Dissolve 1 tablet under the tongue as needed. FOR CHEST PAIN. IF NO RELIEF CALL 911 metoprolol succinate ER (TOPROL XL) 50 mg 24 hr tablet Take 1 tablet by mouth once daily. loratadine (CLARITIN) 10 mg tablet Take 1 tablet by mouth once daily. pregabalin (LYRICA) 100 mg capsule Take 1 capsule by mouth three times daily. albuterol HFA (PROAIR HFA) 90 mcg/actuation inhaler Inhale 2 Puffs as instructed every 4 hours as needed. alendronate (FOSAMAX) 70 mg tablet Take 1 tablet by mouth once each week. Take with a full glass of water, on an empty stomach; do NOT lie down for 30minutes. promethazine (PHENERGAN) 25 mg tablet Take 1 tablet by mouth four times daily as needed for Nausea/Vomiting. pantoprazole DR (PROTONIX) 40 mg tablet Take 1 tablet by mouth once daily. (Patient taking differently: Take 40 mg by mouth as needed.) morphine SR (MS CONTIN) 15 mg 12 hr tablet Take 15 mg by mouth twice daily as needed. benzonatate (TESSALON PERLES) 100 mg capsule Take 2 capsules by mouth three times daily as needed. predniSONE (DELTASONE) 10 mg tablet Take by mouth- 4 tabs daily for 3 days, then 2 tabs daily for 3 days, then 1 tab daily for 3 days with food. No current facility-administered medications for this visit. Medications and allergies reviewed by this provider. SOCIAL HISTORY Social History Marital status: Spouse name: Years of education: Number of children: 3 Occupational History Occupation Employer Comment DISABLED Social History Main Topics Smoking status: Current Every Day Smoker Packs/day: 0.25 Years: 45.00 Types: Cigarettes Smokeless tobacco: Never Used Comment: trying to quit Alcohol use: No Drug use: No Comment: none since 06/2005/cocaine abuse Sexual activity: Not Currently Partners with: Male REVIEW OF SYSTEMS see HPI OBJECTIVE: BP 124/80 Pulse 88 Resp 20 Wt 85.3 kg (188 lb) BMI 34.39 kg/m? . Vital signs reviewed by this provider. PHYSICAL EXAMINATION: General appearance: Well appearing, alert, in no acute distress, well-hydrated, well nourished. and changing positions frequently for comfort Skin: Skin color, texture, turgor normal, no suspicious rashes or lesions Eyes: Anicteric sclera. Lungs: Lungs clear to auscultation. No wheezing, rhonchi, rales Heart: RRR without murmur, gallop, or rubs. No ectopy Abdomen: Abdomen soft, non-tender. Bowel sounds normal. No masses, organomegaly, Positive findings: tenderness moderate epigastric and RUQ,- no guarding, rigidity, or rebound. + bloating. Extremities: No deformities, edema, skin discoloration, clubbing or cyanosis. Good capillary refill. , Pulses: 2+ ASSESSMENT/PLAN: 1. RUQ pain - ICD9: 789.01, ICD10: R10.11 (primary diagnosis) Differential Diagnosis includes GERD, PUD and liver or concern for duct blockage - Labs of LFT's, H pylori Antibodies, Amylase and Lipase - Work up with RUQ ultrasound - Increase fiber in diet - [place] low residue diet - Referral to Gastroenterology - HEPATIC FUNCTION PNL - AMYLASE BLD - LIPASE BLD - US ABD RT UPPER QUADRANT 2. Gastroesophageal reflux disease, esophagitis presence not specified - ICD9: 530.81, ICD10: K21.9 - Discussed lifestyle modifications including losing weight, limiting caffeine, no meals three hours before sleep and head of bed elevation - Continue treatment with protonix QD - Refer for GI consult- would like to consider EGD - CONSULT TO GASTROENTEROLOGY 3. Nausea - ICD9: 787.02, ICD10: R11.0 - see above - continue zofran PRN - CONSULT TO GASTROENTEROLOGY - H PYLORI IGG AB - US ABD RT UPPER QUADRANT 4. Bloating - ICD9: 787.3, ICD10: R14.0 - see above - CONSULT TO GASTROENTEROLOGY - H PYLORI IGG AB - US ABD RT UPPER QUADRANT 5. Decreased appetite - ICD9: 783.0, ICD10: R63.0 - see above - H PYLORI IGG AB - US ABD RT UPPER QUADRANT - CONSULT TO GASTROENTEROLOGY Lindsey Malone APRN.BOOTH USHER Referring Provider: SELF [[id number]] Allergies As of Date: 07/07/2018 Noted Allergy Reaction LATEX 10/21/2013 2 - Rash DARVOCET A500 (PROPOXYPHENE N-CORRIE*08/05/2017 9 - Itching DARVOCET-N 100 (PROPOXYPHENE N-AC*12/11/2009 9 - Itching DILAUDID (HYDROMORPHONE HCL) 08/05/2017 14 - Other: See Comments Comments: Burning sensation over entire body EES [Other] 11/24/2005 HEPARIN ANALOGUES 06/09/2013 4 - Hives 7 - Swelling KEFLEX (CEPHALEXIN) 08/05/2017 7 - Swelling 9 - Itching 12 - Shortness of Breath LEVAQUIN (LEVOFLOXACIN) 11/10/2013 9 - Itching LISINOPRIL 01/17/2015 14 - Other: See Comments Comments: flushing OXYCODONE 08/05/2017 9 - Itching OXYCOTIN (OXYCODONE) 12/11/2009 4 - Hives 7 - Swelling 9 - Itching PENICILLIN 08/05/2017 10 - Anaphylaxis Comments: 4 years old PERCOCET (OXYCODONE-ACETAMINOPHEN)12/11/2009 9 - Itching POLYTRIM (POLYMYXIN B SULF-TRIMET*03/29/2015 7 - Swelling 9 - Itching SULFA (SULFONAMIDE ANTIBIOTICS) 11/24/2005 4 - Hives TEGRETOL (CARBAMAZEPINE) 06/04/2015 1 - Mental Status Change VIBRAMYCIN (DOXYCYCLINE CALCIUM) 08/05/2017 4 - Hives 9 - Itching VICODIN (HYDROCODONE-ACETAMINOPHE*11/24/2005 ADHESIVE TAPE (ROSINS) 03/03/2012 2 - Rash 9 - Itching Date Reviewed: 07/07/2018 Reviewed by: Cherelle Parks) ISMAEL Morris - Fully Assessed Reason for Visit: Abdominal Pain [1] Cmt: right ian eunder ribs and extends to back x1 year Reason For Visit History Recorded Primary Visit Diagnosis:RUQ pain [R10.11] Other Visit Diagnoses:Gastroesophageal reflux disease, esophagitis presence not specified [K21.9] Nausea [R11.0] Bloating [R14.0] Decreased appetite [R63.0] Order(s):HEPATIC FUNCTION PNL [SQHFP] Order #: [id number] FUTURE CONSULT TO GASTROENTEROLOGY [9010] Order #: [id number]: 1 H PYLORI IGG AB [SQHPYLRI] Order #: [id number] FUTURE AMYLASE BLD [SQAMYL] Order #: [id number] FUTURE LIPASE BLD [SQLIPA] Order #: [id number] FUTURE US ABD RT UPPER QUADRANT [2041354] Order #: [id number] FUTURE Prescriptions as of 07/07/2018 Sig: ONDANSETRON 4 MG DISINTEGRATI* Take 1 tablet by mouth every * ALBUTEROL SULFATE 2.5 MG/3 ML* Use 3 mL via nebulizer every * ALBUTEROL SULFATE HFA 90 MCG/* Inhale 2 Puffs as instructed * UMECLIDINIUM 62.5 MCG-VILANTE* Inhale 1 Inhalation as instru* COENZYME Q10 100 MG CAPSULE Take 1 capsule by mouth twice* ATORVASTATIN 80 MG TABLET Take 1 tablet by mouth once d* NITROGLYCERIN 0.4 MG SUBLINGU* Dissolve 1 tablet under the t* METOPROLOL SUCCINATE ER 50 MG* Take 1 tablet by mouth once d* LORATADINE 10 MG TABLET Take 1 tablet by mouth once d* PREGABALIN 100 MG CAPSULE Take 1 capsule by mouth three* ALBUTEROL SULFATE HFA 90 MCG/* Inhale 2 Puffs as instructed * ALENDRONATE 70 MG TABLET Take 1 tablet by mouth once e* PROMETHAZINE 25 MG TABLET Take 1 tablet by mouth four t* PANTOPRAZOLE 40 MG TABLET,DEL* Take 1 tablet by mouth once d* Patient taking differently: Take 40 mg by mouth as needed. MORPHINE ER 15 MG TABLET,EXTE* Take 15 mg by mouth twice octavio* BENZONATATE 100 MG CAPSULE Take 2 capsules by mouth thre* PREDNISONE 10 MG TABLET Take by mouth- 4 tabs daily f* Medication notes this encounter BENZONATATE 100 MG CAPSULE >> Cherelle Morris MA, ISMAEL 07/07/2018 10:35 AM >> CHREELLE MORRIS Jul 07, 2018 10:35 AM No longer taking PREDNISONE 10 MG TABLET >> Cherelle Morris MA, MA 07/07/2018 10:35 AM >> CHERELLE MORRIS Jul 07, 2018 10:35 AM No longer taking Problem List As Of Date 07/07/2018 Noted Resolved Cocaine substance abuse [F14.10] 09/04/2014 Essential hypertension, benign [I10] INVALID FOR* Priority: F More... Degenerative disc disease, cervical [M50.30] INVALID FOR* Priority: D More... Depression [F32.9] INVALID FOR* Priority: E More... Dysmetabolic syndrome X [E88.81] INVALID FOR* Osteoporosis [M81.0] INVALID FOR* Cervical disc disorder [M50.90] INVALID FOR* Vitamin D deficiency [E55.9] INVALID FOR* Hyperlipidemia with target LDL less than 70 [E7*INVALID FOR* Priority: G More... ASHD (arteriosclerotic heart disease) [I25.10] INVALID FOR* More... Chest pain [R07.9] INVALID FOR*09/04/2014 Priority: B More... Tobacco abuse [Z72.0] INVALID FOR* Priority: I More... Tobacco abuse counseling [Z71.6] INVALID FOR* Migraine headache [G43.909] INVALID FOR* Priority: H More... SUMMARY [V999.95] INVALID FOR* Priority: A More... Asthma [J45.909] INVALID FOR* Priority: C More... Elevated gastrin level [E16.4] INVALID FOR* Flushing [R23.2] INVALID FOR* Trigeminal neuralgia [G50.0] INVALID FOR* Erosive esophagitis [K22.10] INVALID FOR* Spontaneous ecchymoses [R23.3] INVALID FOR* Lumbar back pain with radiculopathy affecting l*INVALID FOR* Arteriosclerosis of carotid artery [I65.29] INVALID FOR* MELYSSA (obstructive sleep apnea) [G47.33] INVALID FOR* Trigeminal neuralgia of right side of face [G50*INVALID FOR* Obesity (BMI 30-39.9) [E66.9] INVALID FOR* Grief [F43.21] INVALID FOR* Other seasonal allergic rhinitis [J30.2] INVALID FOR* Anxiety and depression [F41.9, F32.9] INVALID FOR* Sense of smell altered [R43.9] INVALID FOR* Nonintractable headache [R51] INVALID FOR* Non morbid obesity due to excess calories [E66.*INVALID FOR* Fibrocystic breast changes, bilateral [N60.11, *INVALID FOR* Orthostatic hypotension [I95.1] INVALID FOR* Moderate episode of recurrent major depressive *INVALID FOR* 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 Encounter Status:Closed by LINDSEY MALONE on 07/07/18 6 MINUTE WALK TEST Observed: 07/02/2018 Status: F Source: [place] 7:38 AM [facility] REPOSITORY [facility] Pulmonary Services/Neurology [address] [place] [address] MR#: [id number] Acct: [id number] Name: BRITNEY MARIE Rep #: [id number] : 1960 57 From: Kaz Hodge DO Referring Dr: Kumar Manzanares MD Date: Ordering Dr: Sex: F C Location: PSN PSN 6 Minute Walk Test - 6 Minute Walk Test 6 Minute Walk Test: 6 Minute Walk Test PSN:6-Minute Walk Test Start: 07/01/18 13:03 Freq: Status: Active Protocol: [id number] Document 07/01/18 13:03 FR (Rec: 07/01/18 13:15 FR [id number]) 6 Minute Walk Test Date Performed 07/01/18 Time Performed 11:30 Height 5 ft 2 in Weight: 180 lb Weight in Pounds 180.[address]: Kumar Manzanares Assistive device used: None Pre-test Oxygen Delivery Method Room Air Pulse Ox (%) 96 Pulse Rate (60-100 beats/min) 104 H Dyspnea Linette Scale (0-10) 3 Exertion Linette Scale (6-20) 9 1st minute Oxygen Delivery Method Room Air Pulse Ox (%) 93 Pulse Rate (60-100 beats/min) 101 H 2nd minute Oxygen Delivery Method Room Air Pulse Ox (%) 95 Pulse Rate (60-100 beats/min) 105 H 3rd minute Oxygen Delivery Method Room Air Pulse Ox (%) 96 Pulse Rate (60-100 beats/min) 110 H 4th minute Oxygen Delivery Method Room Air Pulse Ox (%) 95 Pulse Rate (60-100 beats/min) 115 H 5th minute Oxygen Delivery Method Room Air Pulse Ox (%) 95 Pulse Rate (60-100 beats/min) 111 H Reported Symptoms Increased Work of Breathing 6th minute Oxygen Delivery Method Room Air Pulse Ox (%) 97 Pulse Rate (60-100 beats/min) 112 H Dyspnea Linette Scale (0-10) 14 Reported Symptoms Increased Work of Breathing Post-test Oxygen Delivery Method Room Air Pulse Ox (%) 97 Pulse Rate (60-100 beats/min) 98 Full Laps Walked 17 Partial Lap, Number of Tiles Walked 49 Total Distance Walked (ft) 1052 - Interpretation Interpretation: The patient ambulated 1052 feet over the course of 6 minutes beginning on room air without assistive devices or breaks. Pretesting oxygen saturation was noted be 96% on room air. With ambulation, the norbert oxygen saturation was 93%. The patient was notably tachycardic throughout the entire test. There was no significant exertional oxygen desaturation. - Recommendations Recommendations: There is no indication for the use of supplemental oxygen at this time. 07/02/18 0738 <Electronically signed by Kaz Hodge DO> Date Kaz Hodge DO CC: Date Dictated: 07/02/1837 Date Transcribed: 07/02/18736 Electrical Test Technician: Kaz Brown, DO Signed PULMONARY FUNCTION Observed: 06/29/2018 Status: F Source: [place] TEST 2:17 PM [facility] REPOSITORY [facility] Pulmonary Services/Neurology [address] [place] [address] MR#: [id number] Acct: [id number] Name: BRITNEY MARIE Rep #: [id number] : 1960 57 From: Kaz Hodge DO Referring Dr: Kumar Manzanares MD Status: REG CLI Ordering Dr: Date: Location: [facility] Sex: F C INTRODUCTION: The patient is a 57-year-old female that presents for pulmonary function testing secondary to a diagnosis of dyspnea on exertion. Respiratory therapy reports good patient effort. Bronchodilators were used during testing. INTERPRETATION: Forced expiration spirometry demonstrates no evidence of a large airways obstructive ventilatory defect. There was a significant bronchodilator response noted, based upon change in FEV1. Spirograms are of good quality and plateau normally. Body plethysmography was performed and reveals an elevated RV to 141% of predicted, indicative of underlying air trapping. Diffusing capacity by single breath CO is preserved at 74% of predicted. 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 06/29/18 1417 <Electronically signed by Kaz Hodge DO> Date Kaz Hodge DO CC: Kumar Manzanares MD; Mare River III, MD Date Dictated: 06/29/181413 Date Transcribed: 06/29/181413 Electrical Test Technician: DB Signed PULMONARY VISIT REPORT Observed: 06/03/2018 Status: F Source: [place] 6:14 AM [facility] REPOSITORY [facility] [address] [place] [address] OFFICE VISIT Date of Service: 06/02/18 MR#: [id number] Acct: [id number] Name: BRITNEY MARIE Rep #: [id number] : 1960 Provider: Kumar Manzanares MD Age/Sex: 57/F Location[facility] Status: Signed Assessment AND Plan 1. MELYSSA (obstructive sleep apnea) G47.33 Plan Patient does carry a diagnosis of obstructive sleep apnea, but has not been compliant with CPAP therapy. Unfortunately, patient does report a 70 pound weight gain since her last titration making previous settings likely inappropriate. After review of the risks, benefits alternatives, patient has agreed to a repeat split-night study. Did stress to the patient that compliance would be necessary given multiple comorbidities. Patient is motivated to initiate therapy. Obtain split-night study Orders Orders: 2. Tobacco abuse Z72.0 Plan Patient has been actively trying to cut down her smoking. Unfortunately, patient tends to smoke with stress and eating. Given patient's severe fatigue associated with uncontrolled sleep apnea, it is unlikely that patient will be successful at this time. After review of options available, patient would like to treat the sleep apnea first and then attempt smoking cessation, which I believe is appropriate. Total discussion time of 12 minutes Address sleep apnea and then attempt complete smoking cessation 3. Incidental lung nodule, > 3mm and < 8mm R91.1 Plan Patient does have an incidental 5 mm groundglass opacity that is triangular-shaped in the right upper lobe. This appears to be secondary to chronic bronchitis, but can be followed on an annual basis. Patient is not giving any other symptoms consistent with malignancy at this time, but is high risk secondary to prolonged smoking history. CT scan at 1 year 4. Dyspnea on exertion R06.09 Plan Patient does have an extensive smoking history, but reports PFT was normal in the past. This is not available for review at this time. Will obtain a repeat pulmonary function test for quantification and clarification of lung function. We will also obtain a walking oximetry to evaluate for exertional hypoxemia. No change in medications at this time. If patient does have an allergy component, triple therapy may be indicated. Patient reports that she has had a cardiac workup, but congestive heart failure or pulmonary hypertension would also be a possible etiology. Obtain complete PFT and walking oximetry. No change in medications at this time. Orders Orders: 5. Class 1 obesity due to excess calories with serious comorbidity and body mass index (BMI) of 34.0 to 34.9 in adult E66.09; Z68.34 Plan Mare discussion with patient about the role of excessive weight in her comorbid conditions. Patient understands that weight loss is necessary, but states she does not have the energy to initiate any plans at this time. Will attempt to address obstructive sleep apnea and then initiate dietary modification and increased exercise. Patient voiced understanding. Address sleep apnea and then progress with dietary modification and increased activity Plan Detail Follow Up 3 Months (BWA) HPI MELYSSA: Chief Complaint: Fatigue and shortness of breath Details: Patient is a 57-year-old female, currently under the care of Dr. Lockhart, who presents for evaluation secondary to fatigue and shortness of breath. Patient does have a diagnosis of sleep apnea that was established approximately 10 years ago. Since that time, patient estimates that she has gained approximately 70 pounds that she attributes to intermittent prednisone. Patient states that she had a significant difficulty in wearing CPAP in the past. Patient states that she is severely fatigued during the day, spontaneously falling asleep while watching TV, reading or writing in a car. Patient does occasionally wake up with headaches. Patient has been reporting progressive shortness of breath. Patient has been Breo in the past, but was recently switched Anoro, which she feels does not work as well. Patient does report a productive cough on a daily basis that is clear. Patient is also noted progressive hoarseness and recurrent illnesses. Patient does state that she had a PFT 2-3 years ago and was reportedly normal, but reports breathlessness on a daily basis. Patient denies any side effects to medications limiting their use such as thrush, hoarseness or sore throat Patient does report initiating smoking at age 9. Patient has been actively trying to cut back, but is still smoking 6 cigarettes per day, typically after a meal. Patient has tried to quit with Chantix and Wellbutrin in the past. Patient also reports smoking secondary to stress. Patient does report orthopnea and intermittent lower extremity swelling. Patient does carry a diagnosis of congestive heart failure with preserved ejection fraction and reportedly has had a left heart catheterization that was not requiring any intervention and medical management was recommended. Documentation reviewed 23 pages of documentation were reviewed from patient's primary care physician. Patient has been treated with prednisone multiple times for COPD exacerbation. Patient does see Dr. Mayorga as an outpatient for cardiac issues. Notes report patient has osteoporosis, but no data was available for quantification. Patient also has morbid obesity, anxiety and depression. No pulmonary function tests are available for review. Patient did have a low-dose CT scan showing a 4 mm groundglass opacity 2.6 cm from the pleura. No mediastinal lymphadenopathy was appreciated Intake Vital Signs06/02/18 Height 5 ft 2 in 06/02/18 Weight: 86.183 kg Intake Visit Reasons: MELYSSA Accompanied by: Self Allergies acetaminophen Allergy (Severe, Verified 01/15/18 16:28) Hives hydrocodone bitartrate [From Vicodin] Allergy (Severe, Verified 01/15/18 16:28) Hives hydromorphone HCl [From Dilaudid] Allergy (Severe, Verified 01/15/18 16:28) Hives, feels like on fire Penicillins Allergy (Severe, Verified 01/15/18 16:28) Anaphylaxis propoxyphene napsylate [From Darvocet-N 100] Allergy (Severe, Verified 01/15/18 16:28) Hives Sulfa (Sulfonamide Antibiotics) Allergy (Severe, Verified 01/15/18 16:28) Hives adhesive Allergy (Verified 01/15/18 16:28) Rash cephalexin monohydrate [From Keflex] Allergy (Verified 01/15/18 16:28) Rash Heparin Analogues Allergy (Verified 01/15/18 16:28) severe bruising and rash latex Allergy (Verified 01/15/18 16:28) Rash levofloxacin [From Levaquin] Allergy (Verified 01/15/18 16:28) Swelling, rash oxycodone HCl [From Percocet] Allergy (Verified 01/15/18 16:28) Hives oxytocin Allergy (Verified 01/15/18 16:28) Hives Medications Albuterol Inhaler [Ventolin Hfa (SP)] 2 puff INHALATION Q6H PRN PRN 02/05/17 [History Confirmed 01/15/18] Alendronate Sodium [Fosamax] 70 mg PO Q7D@0700 02/05/17 [History Confirmed 01/15/18] Atorvastatin Calcium [Lipitor] 80 mg PO QHS 02/05/17 [History Confirmed 01/15/18] HydrOXYzine [Atarax] 25 mg PO TID PRN PRN 02/05/17 [History Confirmed 01/15/18] Morphine [Morphine IR] 15 mg PO BID PRN 02/05/17 [History Confirmed 01/15/18] Nitroglycerin 0.4 mg SL PRN PRN 02/05/17 [History Confirmed 01/15/18] Pantoprazole Sodium [Protonix] 40 mg PO DAILY 02/05/17 [History Confirmed 01/15/18] proMETHazine tablet [Phenergan] 25 mg PO Q6H PRN PRN 02/05/17 [History Confirmed 01/15/18] Fluticasone/Vilanterol [Breo Ellipta 200-25 Mcg INH] 1 ea IH DAILY 01/15/18 [History Confirmed 01/15/18] Hydrochlorothiazide [Hctz] 12.5 mg PO DAILY 01/15/18 [History Confirmed 01/15/18] Loratadine 10 mg PO DAILY 01/15/18 [History Confirmed 01/15/18] Pregabalin [Lyrica] 100 mg PO TID 01/15/18 [History Confirmed 01/15/18] PFS Medical History Trigeminal neuralgia (Chronic) Hypertension (Chronic) Esophageal reflux (Chronic) Dysmetabolic syndrome (Chronic) DDD (degenerative disc disease), cervical (Chronic) Cocaine substance abuse (Chronic) Migraine (Chronic) Benign essential hypertension (Chronic) Depression (Chronic) Type 2 diabetes mellitus (Chronic) Hyperlipidemia (Chronic) Chronic obstructive lung disease (Chronic) Smoker (Chronic) DJD (degenerative joint disease) (Chronic) TIA (transient ischemic attack) (Acute) Asthma (Chronic) Surgical History History of left heart catheterization (Resolved) History of tubal ligation (Resolved) History of appendectomy (Resolved) History of cholecystectomy (Resolved) Family History Mother Cancer Father Cancer Sister Cancer Social History Smoking Status: Current every day smoker second hand exposure: Yes alcohol intake: never substance use type: does not use caffeine: Yes what type of physical activity do you participate in: none Review of Systems Const CONSTITUTIONAL: Positive fever(s), night sweats and fatigue; negative anorexia, body ache, chills, daytime sleepiness, oral thrush, stops breathing during sleep, weight loss, sleeping in chair, weight loss, weight gain, frequent colds, seasonal allergies, other, headache(s) or orthopnea EETM Ear Nose Throat Mouth: Positive hearing normal, hoarseness and nasal discharge; negative hard of hearing, dry mouth in morning, change in vision, itchy eyes, eye pain, swallowing Difficulty, ear pain, nose bleed, headache(s), mouth pain, nasal congestion, post nasal drip, sinus pain, sinus pressure, sore throat or other Cardio Cardiovascular: Negative chest pain, chest pain at rest, chest pain with activity, irregular heart rhythm, edema, shortness of breath when lying down, palpitations, murmur or other Resp Respiratory: Positive as per HPI, shortness of breath shortness of breath: Positive with activity and worsening, wheezing, cough cough: Positive productive color: Positive white and chest tightness; negative pain with cough, chest congestion, pain on inspiration, inhalers, increase use of rescue inhalers, snoring, apnea or other Gastro Gastrointestional: Negative bloody stools, change in appetite, difficulty swallowing, reflux, hematemesis, melena stool, loose stool, constipation or other Genitourinary: Negative blood in urine, nocturia, pain with urination or other Musc Musculoskeletal: Negative body pain, back pain, neck pain or other Skin/Breast Skin/Breast: Negative dry skin, itching, rash, unusual bruising, breast lump or other Neuro Neurological: Negative restless legs, confusion, weakness or other Psych Psychocological: Negative abnormal sleep pattern, anxiety, thoughts of hurting self/others, hopelessness or other Lymph Lymphatic: Negative easy bleeding, easy bruising, swollen lymph nodes or other Exam Const Constitutional: Positive conversant, cooperative, in no acute respiratory distress, well developed, well nourished, good hygiene, smells of smoke, appears older than stated age and obese; negative wearing supplemental oxygen Head Head: Positive normocephalic and atraumatic; negative cyanosis of lips/distal nose, frontal sinus tenderness or maxillary sinus tenderness Eyes Eye: Positive clear conjunctiva; negative nystagmus, scleral abnormality or cataract present Ears Ear: Positive hearing normal and external ears normal; negative hard of hearing Nose Nose: Positive external nose normal, septum normal and clear nasal discharge; negative epistaxis or nasal polyp Mouth Mouth: Positive oral mucosae normal, no lesions, crowded posterior oropharynx and dentures; negative post nasal drip, malodorous breath or oral thrush present Mallampati Score: IV: Mallampati Score Neck Neck: Positive normal visual inspection, full ROM, trachea midline and female neck greater than 37 cm (15 in); negative lymphadenopathy or JVD Chest Wall Chest: Positive normal inspection of the chest and symmetric chest movement; negative crepitus or tenderness Resp lung sounds: Positive diminished, wheeze present on forced exhalation and prolonged expiratory time; negative wheezes, rhonchi, rales, use of accessory muscles or dullness to percussion Cardio Cardiac: Positive regular rate, regular rhythm, S1 normal and S2 normal; negative murmur, rub or gallop GI GI: Positive normal to inspection, normal bowel sounds and obese; negative distended, ascites or epigastric tenderness Genitourinary: Positive deferred Musc Musculoskeletal: Positive steady gait; negative using an assistive device for ambulation, kyphosis or scoliosis Skin Pulmonary Skin Exam: Positive intact and dermal atrophy; negative rash, lesion, ulcers or erythema Pulses Pulse: Yes radial pulses present Extremities Extremities: Yes capillary refill normal, No clubbing, No cyanosis, Yes edema (2+ lower extremity) Neuro Neurologic: Yes conversant, Yes no focal neuro deficits, Yes normal coordination, Yes normal concentration, Yes cooperative, Yes normal cognition, Yes understands questions Lymph Lymphatic: No lymphadenopathy Psych Appearance: Positive grossly normal Mental Status: Positive mental status grossly normal Mood: Positive congruent mood Affect: Positive normal affect Pulmonary Procedure Smoking Cessation Education: Yes education provided, greater than 10 minutes, expresses understanding, continue to encourage smoking cessation and needs reinforcement Coding Level of Care Code Off vis,new,level 5 Diagnoses MELYSSA (obstructive sleep apnea) G47.33 Tobacco abuse Z72.0 Incidental lung nodule, > 3mm and < 8mm R91.1 Dyspnea on exertion R06.09 Class 1 obesity due to excess calories with serious comorbidity and body mass index (BMI) of 34.0 to 34.9 in adult E66.09; Z68.34 Obesity type: due to excess calories Obesity classification: adult class 1 (BMI 30 - 34.9) Serious obesity comorbidity presence: with serious comorbidity Body mass index: BMI 34.0-34.9 06/03/18 0614 <Electronically signed by Kumar Manzanares MD> Date Kumar Manzanares MD Cosigner Signature: Date (if applicable) CC: Mare River III, MD PROGRESS Observed: 05/18/2018 Status: COMPLETED Source: [place] 8:57 PM [facility] REPOSITORY HNO ID: [id number] Author: Alda Saleem (Pa) Service: (none) Author Type: Physician Organizational Development Director Type: Progress Notes Filed: 05/18/2018 9:13 PM Note Text: Subjective HPI Pt presents with cough and wheezing for 5 days. She has COPD and ashtma and is currently smoking still. No fever or chills. She took some left over tessalon and prednisone she had yesterday and felt better. No chest pain. She has an inhaler at home but no nebulizer machine. No leg pain or swelling. She is coughing so hard she pees her pants sometimes. Review of Systems Constitutional: Negative for chills and fever. HENT: Positive for sore throat. Eyes: Negative. Respiratory: Positive for cough, sputum production, shortness of breath and wheezing. Cardiovascular: Negative. Gastrointestinal: Negative. Skin: Negative. All other systems reviewed and are negative. PAST MEDICAL HISTORY Diagnosis Date - ASHD (arteriosclerotic heart disease) 10/14/2011 - Bandemia 01/29/2018 - Cervical disc disorder 03/13/2011 - Cervical disc disorder at C4-C5 level with radiculopathy - Cocaine substance abuse ([facility]) 2003 - COPD (chronic obstructive pulmonary disease) ([facility]) - Degenerative disc disease, cervical 2010 - Depression 2010 - Dysmetabolic syndrome X 01/21/2011 - Erosive esophagitis 09/04/2014 - Esophageal reflux Gastroesophageal reflux - Essential hypertension, benign 09/09/2010 no meds currently 03/26 - Fibrocystic breast changes, bilateral 01/28/2017 - Hyperlipidemia LDL goal < 130 2010 - Hyperlipidemia LDL goal < 70 10/14/2011 - Migraine headache 01/23/2012 - Myalgia - Nodule of right lung 03/02/2018 02/09/18: 5 mm to recheck in 1 yr - Non morbid obesity due to excess calories 08/29/2016 - Obstructive sleep apnea - Osteoporosis 03/13/2011 - Other cervical disc displacement at C4-C5 level - Other intervertebral disc displacement, lumbar region - Other muscle spasm - Other specified dorsopathies, lumbosacral region - Peptic ulcer, unspecified site, unspecified as acute or chronic, without mention of hemorrhage, perforation, or obstruction Peptic ulcer disease - Spinal stenosis, cervical region - Spondylosis without myelopathy or radiculopathy, cervical region - Tobacco abuse 01/23/2012 - Trigeminal neuralgia 12/29/2013 - Trigeminal neuralgia of right side of face 05/03/2015 - Vitamin D deficiency 03/19/2011 Current Outpatient Prescriptions: predniSONE (DELTASONE) 10 mg tablet Take by mouth- 4 tabs daily for 3 days, then 2 tabs daily for 3 days, then 1 tab daily for 3 days with food. Disp: 21 tablet Rfl: 0 umeclidinium-vilanterol (ANORO ELLIPTA) 62.5-25 mcg/actuation inhaler Inhale 1 Inhalation as instructed once daily. Inhale one puff once daily. DO NOT CLICK OPEN UNTIL READY FOR DOSE Disp: 1 Each Rfl: 11 coenzyme Q10 (COQ-10) 100 mg cap capsule Take 1 capsule by mouth twice daily. Disp: 30 capsule Rfl: 11 atorvastatin (LIPITOR) 80 mg tablet Take 1 tablet by mouth once daily. Disp: 90 tablet Rfl: 3 nitroglycerin sublingual (NITROQUICK) 0.4 mg SL tablet Dissolve 1 tablet under the tongue as needed. FOR CHEST PAIN. IF NO RELIEF CALL 911 Disp: 1 Bottle of 25 Rfl: 3 metoprolol succinate ER (TOPROL XL) 50 mg 24 hr tablet Take 1 tablet by mouth once daily. Disp: 30 tablet Rfl: 12 loratadine (CLARITIN) 10 mg tablet Take 1 tablet by mouth once daily. Disp: 30 tablet Rfl: 2 pregabalin (LYRICA) 100 mg capsule Take 1 capsule by mouth three times daily. Disp: Rfl: albuterol HFA (PROAIR HFA) 90 mcg/actuation inhaler Inhale 2 Puffs as instructed every 4 hours as needed. Disp: 1 Inhaler Rfl: 0 alendronate (FOSAMAX) 70 mg tablet Take 1 tablet by mouth once each week. Take with a full glass of water, on an empty stomach; do NOT lie down for 30minutes. Disp: 4 tablet Rfl: 2 promethazine (PHENERGAN) 25 mg tablet Take 1 tablet by mouth four times daily as needed for Nausea/Vomiting. Disp: 60 tablet Rfl: [address] (PROTONIX) 40 mg tablet Take 1 tablet by mouth once daily. (Patient taking differently: Take 40 mg by mouth as needed.) Disp: 90 tablet Rfl: 3 morphine SR (MS CONTIN) 15 mg 12 hr tablet Take 15 mg by mouth twice daily as needed. Disp: Rfl: azithromycin (ZITHROMAX Z-ERIC) 250 mg tablet Take 2 tablets day one, then, 1 tablet daily until gone. Disp: 1 Package Rfl: 0 predniSONE (DELTASONE) 20 mg tablet Take 1 tablet by mouth twice daily for 5 days. Disp: 10 tablet Rfl: 0 benzonatate (TESSALON PERLES) 100 mg capsule Take 2 capsules by mouth three times daily as needed. Disp: 30 capsule Rfl: 0 albuterol (PROVENTIL) 2.5 mg /3 mL (0.083 %) nebulizer solution Use 3 mL via nebulizer every 4 hours as needed for Wheezing/Shortness of Breath. Use over 5-15minutes. Disp: 1 Package Rfl: 0 Current Facility-Administered Medications: albuterol 2.5 mg /3 mL (0.083 %) 2.5 mg (PROVENTIL) 2.5 mg INHALATION ONCE Alda R (Pa) [place] PAST SURGICAL HISTORY Procedure Laterality Date - ANTERIOR INTERBODY FUSION, CERVICAL 1992 - APPENDECTOMY - CHOLECYSTECTOMY - COLONOSCOP W/ OR W/O [facility] SPEC 04/30/2010 Dr. Rayshawn Shrestha - COLONOSCOP W/ OR W/O [facility] SPEC 08/10/13 Colonoscopy - EGD W/O OR W/BRUSH/WASH 08/10/13 EGD - LAPAROSCOPY, SURGICAL, ESOPHAGOGAST 01-25-10 LAP KAMILA - LEFT HEART CATH,PERCUTANEOUS 12/17/11 Cardiac cath, L heart, see scanned report - Tonsilectomy - TUBAL LIGATION, - XR CERVICAL FUSION OR 1997 posterior fusion FAMILY HISTORY Problem Relation Age of Onset - Heart Father 35 - Cancer Father - Cancer Mother - Breast Cancer Paternal Grandmother - Breast Cancer Paternal Aunt - Cancer Maternal Uncle LUNG - Heart Maternal Grandmother Social History Substance Use Topics - Smoking status: Current Every Day Smoker Packs/day: 0.25 Years: 45.00 Types: Cigarettes - Smokeless tobacco: Never Used Comment: trying to quit - Alcohol use No BP 126/80 Pulse 80 Temp 37.1 ?C (98.7 ?F) (Tympanic) Resp 16 Wt 83.5 kg (184 lb) SpO2 93% BMI 33.65 kg/m? Objective Physical Exam Constitutional: She is oriented to person, place, and time and well-developed, well-nourished, and in no distress. HENT: Head: Normocephalic and atraumatic. Right Ear: Tympanic membrane, external ear and ear canal normal. Left Ear: Tympanic membrane, external ear and ear canal normal. Nose: Rhinorrhea present. Mouth/Throat: Uvula is midline, oropharynx is clear and moist and mucous membranes are normal. Eyes: Conjunctivae are normal. Neck: Normal range of motion. Neck supple. Cardiovascular: Normal rate, regular rhythm and normal heart sounds. Pulmonary/Chest: Effort normal. Moderate expiratory wheezing. No retractions or accessory muscle use. Talking in full sentences. Hoarse voice noted. Neurological: She is alert and oriented to person, place, and time. Skin: Skin is warm and dry. No rash noted. Psychiatric: Affect and judgment normal. Nursing note and vitals reviewed. ASSESSMENT/PLAN: 1. COPD with exacerbation ([facility]) - ICD9: 491.21, ICD10: J44.1 Pt given a treatment here. Feels improved after. She is in no distress here. I did give her a nebulizer machine here as well as prescriptions for zpak ( she tolerates this well), prednisone and tessalon perles. Discussed with patient concerning symptoms to go to the emergency department or follow up here. Pt agreeable with this plan. - AZITHROMYCIN 250 MG TABLET - PREDNISONE 20 MG TABLET - BENZONATATE 100 MG CAPSULE - ALBUTEROL SULFATE 2.5 MG/3 ML (0.083 %) SOLUTION FOR NEBULIZATION - ALBUTEROL SULFATE 2.5 MG/3 ML (0.083 %) SOLUTION FOR NEBULIZATION JODIE Portillo Observed: 05/18/2018 Status: COMPLETED Source: [place] 8:45 PM [facility] REPOSITORY Office Visit ([facility]) BRITNEY MARIE ([id number]) 1960 F CHT Date Time Provider Department 05/18/18 8:45 PM ALDA SALEEM) [facility] During your visit today, we recorded the following information about you: Temperature Pulse Respiration Blood pressure 98.7 degrees 80/minute 16/minute 126/80 Weight 83.5 kg Alda Saleem PA-C 05/18/2018 9:13 PM Signed Subjective HPI Pt presents with cough and wheezing for 5 days. She has COPD and ashtma and is currently smoking still. No fever or chills. She took some left over tessalon and prednisone she had yesterday and felt better. No chest pain. She has an inhaler at home but no nebulizer machine. No leg pain or swelling. She is coughing so hard she pees her pants sometimes. Review of Systems Constitutional: Negative for chills and fever. HENT: Positive for sore throat. Eyes: Negative. Respiratory: Positive for cough, sputum production, shortness of breath and wheezing. Cardiovascular: Negative. Gastrointestinal: Negative. Skin: Negative. All other systems reviewed and are negative. PAST MEDICAL HISTORY Diagnosis Date - ASHD (arteriosclerotic heart disease) 10/14/2011 - Bandemia 01/29/2018 - Cervical disc disorder 03/13/2011 - Cervical disc disorder at C4-C5 level with radiculopathy - Cocaine substance abuse ([facility]) 2003 - COPD (chronic obstructive pulmonary disease) ([facility]) - Degenerative disc disease, cervical 2010 - Depression 2010 - Dysmetabolic syndrome X 01/21/2011 - Erosive esophagitis 09/04/2014 - Esophageal reflux Gastroesophageal reflux - Essential hypertension, benign 09/09/2010 no meds currently 03/26 - Fibrocystic breast changes, bilateral 01/28/2017 - Hyperlipidemia LDL goal < 130 2010 - Hyperlipidemia LDL goal < 70 10/14/2011 - Migraine headache 01/23/2012 - Myalgia - Nodule of right lung 03/02/2018 02/09/18: 5 mm to recheck in 1 yr - Non morbid obesity due to excess calories 08/29/2016 - Obstructive sleep apnea - Osteoporosis 03/13/2011 - Other cervical disc displacement at C4-C5 level - Other intervertebral disc displacement, lumbar region - Other muscle spasm - Other specified dorsopathies, lumbosacral region - Peptic ulcer, unspecified site, unspecified as acute or chronic, without mention of hemorrhage, perforation, or obstruction Peptic ulcer disease - Spinal stenosis, cervical region - Spondylosis without myelopathy or radiculopathy, cervical region - Tobacco abuse 01/23/2012 - Trigeminal neuralgia 12/29/2013 - Trigeminal neuralgia of right side of face 05/03/2015 - Vitamin D deficiency 03/19/2011 Current Outpatient Prescriptions: predniSONE (DELTASONE) 10 mg tablet Take by mouth- 4 tabs daily for 3 days, then 2 tabs daily for 3 days, then 1 tab daily for 3 days with food. Disp: 21 tablet Rfl: 0 umeclidinium-vilanterol (ANORO ELLIPTA) 62.5-25 mcg/actuation inhaler Inhale 1 Inhalation as instructed once daily. Inhale one puff once daily. DO NOT CLICK OPEN UNTIL READY FOR DOSE Disp: 1 Each Rfl: 11 coenzyme Q10 (COQ-10) 100 mg cap capsule Take 1 capsule by mouth twice daily. Disp: 30 capsule Rfl: 11 atorvastatin (LIPITOR) 80 mg tablet Take 1 tablet by mouth once daily. Disp: 90 tablet Rfl: 3 nitroglycerin sublingual (NITROQUICK) 0.4 mg SL tablet Dissolve 1 tablet under the tongue as needed. FOR CHEST PAIN. IF NO RELIEF CALL 911 Disp: 1 Bottle of 25 Rfl: 3 metoprolol succinate ER (TOPROL XL) 50 mg 24 hr tablet Take 1 tablet by mouth once daily. Disp: 30 tablet Rfl: 12 loratadine (CLARITIN) 10 mg tablet Take 1 tablet by mouth once daily. Disp: 30 tablet Rfl: 2 pregabalin (LYRICA) 100 mg capsule Take 1 capsule by mouth three times daily. Disp: Rfl: albuterol HFA (PROAIR HFA) 90 mcg/actuation inhaler Inhale 2 Puffs as instructed every 4 hours as needed. Disp: 1 Inhaler Rfl: 0 alendronate (FOSAMAX) 70 mg tablet Take 1 tablet by mouth once each week. Take with a full glass of water, on an empty stomach; do NOT lie down for 30minutes. Disp: 4 tablet Rfl: 2 promethazine (PHENERGAN) 25 mg tablet Take 1 tablet by mouth four times daily as needed for Nausea/Vomiting. Disp: 60 tablet Rfl: [address] (PROTONIX) 40 mg tablet Take 1 tablet by mouth once daily. (Patient taking differently: Take 40 mg by mouth as needed.) Disp: 90 tablet Rfl: 3 morphine SR (MS CONTIN) 15 mg 12 hr tablet Take 15 mg by mouth twice daily as needed. Disp: Rfl: azithromycin (ZITHROMAX Z-ERIC) 250 mg tablet Take 2 tablets day one, then, 1 tablet daily until gone. Disp: 1 Package Rfl: 0 predniSONE (DELTASONE) 20 mg tablet Take 1 tablet by mouth twice daily for 5 days. Disp: 10 tablet Rfl: 0 benzonatate (TESSALON PERLES) 100 mg capsule Take 2 capsules by mouth three times daily as needed. Disp: 30 capsule Rfl: 0 albuterol (PROVENTIL) 2.5 mg /3 mL (0.083 %) nebulizer solution Use 3 mL via nebulizer every 4 hours as needed for Wheezing/Shortness of Breath. Use over 5-15minutes. Disp: 1 Package Rfl: 0 Current Facility-Administered Medications: albuterol 2.5 mg /3 mL (0.083 %) 2.5 mg (PROVENTIL) 2.5 mg INHALATION ONCE Alda Holman ([place]) Athjulian PAST SURGICAL HISTORY Procedure Laterality Date - ANTERIOR INTERBODY FUSION, CERVICAL 1992 - APPENDECTOMY - CHOLECYSTECTOMY - COLONOSCOP W/ OR W/O [facility] SPEC 04/30/2010 Dr. Rayshawn Shrestha - COLONOSCOP W/ OR W/O [facility] SPEC 08/10/13 Colonoscopy - EGD W/O OR W/BRUSH/WASH 08/10/13 EGD - LAPAROSCOPY, SURGICAL, ESOPHAGOGAST 01-25-10 LAP KAMILA - LEFT HEART CATH,PERCUTANEOUS 12/17/11 Cardiac cath, L heart, see scanned report - Tonsilectomy - TUBAL LIGATION, - XR CERVICAL FUSION OR 1997 posterior fusion FAMILY HISTORY Problem Relation Age of Onset - Heart Father 35 - Cancer Father - Cancer Mother - Breast Cancer Paternal Grandmother - Breast Cancer Paternal Aunt - Cancer Maternal Uncle LUNG - Heart Maternal Grandmother Social History Substance Use Topics - Smoking status: Current Every Day Smoker Packs/day: 0.25 Years: 45.00 Types: Cigarettes - Smokeless tobacco: Never Used Comment: trying to quit - Alcohol use No BP 126/80 Pulse 80 Temp 37.1 ?C (98.7 ?F) (Tympanic) Resp 16 Wt 83.5 kg (184 lb) SpO2 93% BMI 33.65 kg/m? Objective Physical Exam Constitutional: She is oriented to person, place, and time and well-developed, well-nourished, and in no distress. HENT: Head: Normocephalic and atraumatic. Right Ear: Tympanic membrane, external ear and ear canal normal. Left Ear: Tympanic membrane, external ear and ear canal normal. Nose: Rhinorrhea present. Mouth/Throat: Uvula is midline, oropharynx is clear and moist and mucous membranes are normal. Eyes: Conjunctivae are normal. Neck: Normal range of motion. Neck supple. Cardiovascular: Normal rate, regular rhythm and normal heart sounds. Pulmonary/Chest: Effort normal. Moderate expiratory wheezing. No retractions or accessory muscle use. Talking in full sentences. Hoarse voice noted. Neurological: She is alert and oriented to person, place, and time. Skin: Skin is warm and dry. No rash noted. Psychiatric: Affect and judgment normal. Nursing note and vitals reviewed. ASSESSMENT/PLAN: 1. COPD with exacerbation (HCC) - ICD9: 491.21, ICD10: J44.1 Pt given a treatment here. Feels improved after. She is in no distress here. I did give her a nebulizer machine here as well as prescriptions for zpak ( she tolerates this well), prednisone and tessalon perles. Discussed with patient concerning symptoms to go to the emergency department or follow up here. Pt agreeable with this plan. - AZITHROMYCIN 250 MG TABLET - PREDNISONE 20 MG TABLET - BENZONATATE 100 MG CAPSULE - ALBUTEROL SULFATE 2.5 MG/3 ML (0.083 %) SOLUTION FOR NEBULIZATION - ALBUTEROL SULFATE 2.5 MG/3 ML (0.083 %) SOLUTION FOR NEBULIZATION JODIE Portillo Ma 05/18/2018 9:12 PM Signed 2.5 solution aerosol treatment given per doctor's orders. Prior to treatment O2 Sat is 93%. Treatment completed. O2 sat is 95%. Tolerated well. Lindsey Alcaraz Ma Referring Provider: SELF [[id number]] Allergies As of Date: 05/18/2018 Noted Allergy Reaction LATEX 10/21/2013 2 - Rash DARVOCET A500 (PROPOXYPHENE N-CORRIE*08/05/2017 9 - Itching DARVOCET-N 100 (PROPOXYPHENE N-AC*12/11/2009 9 - Itching DILAUDID (HYDROMORPHONE HCL) 08/05/2017 14 - Other: See Comments Comments: Burning sensation over entire body EES [Other] 11/24/2005 HEPARIN ANALOGUES 06/09/2013 4 - Hives 7 - Swelling KEFLEX (CEPHALEXIN) 08/05/2017 7 - Swelling 9 - Itching 12 - Shortness of Breath LEVAQUIN (LEVOFLOXACIN) 11/10/2013 9 - Itching LISINOPRIL 01/17/2015 14 - Other: See Comments Comments: flushing OXYCODONE 08/05/2017 9 - Itching OXYCOTIN (OXYCODONE) 12/11/2009 4 - Hives 7 - Swelling 9 - Itching PENICILLIN 08/05/2017 10 - Anaphylaxis Comments: 4 years old PERCOCET (OXYCODONE-ACETAMINOPHEN)12/11/2009 9 - Itching POLYTRIM (POLYMYXIN B SULF-TRIMET*03/29/2015 7 - Swelling 9 - Itching SULFA (SULFONAMIDE ANTIBIOTICS) 11/24/2005 4 - Hives TEGRETOL (CARBAMAZEPINE) 06/04/2015 1 - Mental Status Change VIBRAMYCIN (DOXYCYCLINE CALCIUM) 08/05/2017 4 - Hives 9 - Itching VICODIN (HYDROCODONE-ACETAMINOPHE*11/24/2005 ADHESIVE TAPE (ROSINS) 03/03/2012 2 - Rash 9 - Itching Date Reviewed: 05/18/2018 Reviewed by: Lindsey Alcaraz Ma - Fully Assessed Reason for Visit: Cough [28] Cmt: wheezing x thursday Primary Visit Diagnosis:COPD with exacerbation (HCC) [J44.1] Order(s):azithromycin (ZITHROMAX Z-ERIC) 250 mg tabletTake 2 tablets day one, then, 1 tablet daily until gone.Disp: 1 PackageRfl: 0 predniSONE (DELTASONE) 20 mg tabletTake 1 tablet by mouth twice daily for 5 days.Disp: 10 tabletRfl: 0 benzonatate (TESSALON PERLES) 100 mg capsuleTake 2 capsules by mouth three times daily as needed.Disp: 30 capsuleRfl: 0 [] albuterol 2.5 mg /3 mL (0.083 %) 2.5 mg (PROVENTIL)Disp: Rfl: albuterol (PROVENTIL) 2.5 mg /3 mL (0.083 %) nebulizer solutionUse 3 mL via nebulizer every 4 hours as needed for Wheezing/Shortness of Breath. Use over 5-15minutes.Disp: 1 PackageRfl: 0 Nebulizer1 Ampule every 4 hours as needed. NEBULIZER FOR HOME USE. DX: COPD exacerbationDisp: 1 PackageRfl: 0 albuterol HFA (VENTOLIN HFA) 90 mcg/actuation inhalerInhale 2 Puffs as instructed every 4 hours as needed for Wheezing/Shortness of Breath.Disp: 1 InhalerRfl: 0 Prescriptions as of 05/18/2018 Sig: PREDNISONE 10 MG TABLET Take by mouth- 4 tabs daily f* UMECLIDINIUM 62.5 MCG-VILANTE* Inhale 1 Inhalation as instru* COENZYME Q10 100 MG CAPSULE Take 1 capsule by mouth twice* ATORVASTATIN 80 MG TABLET Take 1 tablet by mouth once d* NITROGLYCERIN 0.4 MG SUBLINGU* Dissolve 1 tablet under the t* METOPROLOL SUCCINATE ER 50 MG* Take 1 tablet by mouth once d* LORATADINE 10 MG TABLET Take 1 tablet by mouth once d* PREGABALIN 100 MG CAPSULE Take 1 capsule by mouth three* ALBUTEROL SULFATE HFA 90 MCG/* Inhale 2 Puffs as instructed * ALENDRONATE 70 MG TABLET Take 1 tablet by mouth once e* PROMETHAZINE 25 MG TABLET Take 1 tablet by mouth four t* PANTOPRAZOLE 40 MG TABLET,DEL* Take 1 tablet by mouth once d* Patient taking differently: Take 40 mg by mouth as needed. MORPHINE ER 15 MG TABLET,EXTE* Take 15 mg by mouth twice octavio* AZITHROMYCIN 250 MG TABLET Take 2 tablets day one, then,* PREDNISONE 20 MG TABLET Take 1 tablet by mouth twice * BENZONATATE 100 MG CAPSULE Take 2 capsules by mouth thre* ALBUTEROL SULFATE 2.5 MG/3 ML* Use 3 mL via nebulizer every * COMPOUNDED PRESCRIPTION 1 Ampule every 4 hours as nee* ALBUTEROL SULFATE HFA 90 MCG/* Inhale 2 Puffs as instructed * Problem List As Of Date 05/18/2018 Noted Resolved Cocaine substance abuse [F14.10] 09/04/2014 Essential hypertension, benign [I10] INVALID FOR* Priority: F More... Degenerative disc disease, cervical [M50.30] INVALID FOR* Priority: D More... Depression [F32.9] INVALID FOR* Priority: E More... Dysmetabolic syndrome X [E88.81] INVALID FOR* Osteoporosis [M81.0] INVALID FOR* Cervical disc disorder [M50.90] INVALID FOR* Vitamin D deficiency [E55.9] INVALID FOR* Hyperlipidemia with target LDL less than 70 [E7*INVALID FOR* Priority: G More... ASHD (arteriosclerotic heart disease) [I25.10] INVALID FOR* More... Chest pain [R07.9] INVALID FOR*09/04/2014 Priority: B More... Tobacco abuse [Z72.0] INVALID FOR* Priority: I More... Tobacco abuse counseling [Z71.6] INVALID FOR* Migraine headache [G43.909] INVALID FOR* Priority: H More... SUMMARY [V999.95] INVALID FOR* Priority: A More... Asthma [J45.909] INVALID FOR* Priority: C More... Elevated gastrin level [E16.4] INVALID FOR* Flushing [R23.2] INVALID FOR* Trigeminal neuralgia [G50.0] INVALID FOR* Erosive esophagitis [K22.10] INVALID FOR* Spontaneous ecchymoses [R23.3] INVALID FOR* Lumbar back pain with radiculopathy affecting l*INVALID FOR* Arteriosclerosis of carotid artery [I65.29] INVALID FOR* MELYSSA (obstructive sleep apnea) [G47.33] INVALID FOR* Trigeminal neuralgia of right side of face [G50*INVALID FOR* Obesity (BMI 30-39.9) [E66.9] INVALID FOR* Grief [F43.21] INVALID FOR* Other seasonal allergic rhinitis [J30.2] INVALID FOR* Anxiety and depression [F41.9, F32.9] INVALID FOR* Sense of smell altered [R43.9] INVALID FOR* Nonintractable headache [R51] INVALID FOR* Non morbid obesity due to excess calories [E66.*INVALID FOR* Fibrocystic breast changes, bilateral [N60.11, *INVALID FOR* Orthostatic hypotension [I95.1] INVALID FOR* Moderate episode of recurrent major depressive *INVALID FOR* 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 Visit Notes: >> Lindsey Cain May 18, 2018 9:12 PM Status: Signed 2.5 solution aerosol treatment given per doctor's orders. Prior to treatment O2 Sat is 93%. Treatment completed. O2 sat is 95%. Tolerated well. Lindsey Alcaraz Ma Prescriptions ordered this encounter Disp Refills Start End AZITHROMYCIN 250 MG TABLET 1 Pa* 0 05/18/2018 05/23/2018 Sig: Take 2 tablets day one, then, 1 tablet daily until gone. PREDNISONE 20 MG TABLET 10 t* 0 05/18/2018 05/23/2018 Route: ORAL Sig: Take 1 tablet by mouth twice daily for 5 days. BENZONATATE 100 MG CAPSULE 30 c* 0 05/18/2018 Route: ORAL Sig: Take 2 capsules by mouth three times daily as needed. ALBUTEROL SULFATE 2.5 MG/3 ML (0.083* 05/18/2018 05/18/2018 Route: INHALATION ALBUTEROL SULFATE 2.5 MG/3 ML (0.083* 1 Pa* 0 05/18/2018 Route: NEBULIZATION Sig: Use 3 mL via nebulizer every 4 hours as needed for Wheezing/Shortness of Breath. Use over 5-15minutes. COMPOUNDED PRESCRIPTION 1 Pa* 0 05/18/2018 06/17/2018 Class: Print RX Route: Misc Si Ampule every 4 hours as needed. NEBULIZER FOR HOME USE. DX: COPD exacerbation ALBUTEROL SULFATE HFA 90 MCG/ACTUATI* 1 In* 0 05/18/2018 Route: INHALATION Sig: Inhale 2 Puffs as instructed every 4 hours as needed for Wheezing/Shortness of Breath. Encounter Status:Closed by ALDA SALEEM PA-C on 05/18/18 PROGRESS Observed: 03/02/2018 Status: COMPLETED Source: [place] 1:41 PM [facility] REPOSITORY HNO ID: [id number] Author: Mare River III Service: (none) Author Type: Physician Type: Progress Notes Filed: 03/02/2018 6:33 PM Note Text: SUBJECTIVE: This is a 57 year old female that is here today for 1. cough productive of green phlegm x 3 wks. no fever. chest congestion and wheezing. Restarted breo and using albuterol inhaler frequently. Still smokes though she expressed interest in trying to quit again. 2. reviewed low dose CT lun mm ground glass nodule RUL--discussed that patient is to have a repeat low dose CT lung in 1 year. PAST MEDICAL HISTORY Diagnosis Date - ASHD (arteriosclerotic heart disease) 10/14/2011 - Bandemia 01/29/2018 - Cervical disc disorder 03/13/2011 - Cervical disc disorder at C4-C5 level with radiculopathy - Cocaine substance abuse 2003 - COPD (chronic obstructive pulmonary disease) (HCC) - Degenerative disc disease, cervical 2010 - Depression 2010 - Dysmetabolic syndrome X 01/21/2011 - Erosive esophagitis 09/04/2014 - Esophageal reflux Gastroesophageal reflux - Essential hypertension, benign 09/09/2010 no meds currently 03/26 - Fibrocystic breast changes, bilateral 01/28/2017 - Hyperlipidemia LDL goal < 130 2010 - Hyperlipidemia LDL goal < 70 10/14/2011 - Migraine headache 01/23/2012 - Myalgia - Non morbid obesity due to excess calories 08/29/2016 - Obstructive sleep apnea - Osteoporosis 03/13/2011 - Other cervical disc displacement at C4-C5 level - Other intervertebral disc displacement, lumbar region - Other muscle spasm - Other specified dorsopathies, lumbosacral region - Peptic ulcer, unspecified site, unspecified as acute or chronic, without mention of hemorrhage, perforation, or obstruction Peptic ulcer disease - Spinal stenosis, cervical region - Spondylosis without myelopathy or radiculopathy, cervical region - Tobacco abuse 01/23/2012 - Trigeminal neuralgia 12/29/2013 - Trigeminal neuralgia of right side of face 05/03/2015 - Vitamin D deficiency 03/19/2011 Current Outpatient Prescriptions on File Prior to Visit: isosorbide mononitrate ER (IMDUR) 30 mg 24 hr tablet Take 2 tablets by mouth once daily. coenzyme Q10 (COQ-10) 100 mg cap capsule Take 1 capsule by mouth twice daily. atorvastatin (LIPITOR) 80 mg tablet Take 1 tablet by mouth once daily. nitroglycerin sublingual (NITROQUICK) 0.4 mg SL tablet Dissolve 1 tablet under the tongue as needed. FOR CHEST PAIN. IF NO RELIEF CALL 911 metoprolol succinate ER (TOPROL XL) 50 mg 24 hr tablet Take 1 tablet by mouth once daily. pantoprazole DR (PROTONIX) 40 mg tablet TAKE 1 TABLET BY MOUTH EVERY DAY loratadine (CLARITIN) 10 mg tablet Take 1 tablet by mouth once daily. fluticasone-vilanterol (BREO ELLIPTA) 200-25 mcg/dose inhaler Inhale 1 Inhalation as instructed once daily. Inhale one puff once daily. DO NOT CLICK OPEN UNTIL READY FOR DOSE pregabalin (LYRICA) 100 mg capsule Take 1 capsule by mouth three times daily. albuterol HFA (PROAIR HFA) 90 mcg/actuation inhaler Inhale 2 Puffs as instructed every 4 hours as needed. alendronate (FOSAMAX) 70 mg tablet Take 1 tablet by mouth once each week. Take with a full glass of water, on an empty stomach; do NOT lie down for 30minutes. promethazine (PHENERGAN) 25 mg tablet Take 1 tablet by mouth four times daily as needed for Nausea/Vomiting. pantoprazole DR (PROTONIX) 40 mg tablet Take 1 tablet by mouth once daily. (Patient taking differently: Take 40 mg by mouth as needed.) morphine SR (MS CONTIN) 15 mg 12 hr tablet Take 15 mg by mouth twice daily as needed. escitalopram oxalate (LEXAPRO) 10 mg tablet Take 1 tablet by mouth once daily. aspirin 325 mg tablet Take 325 mg by mouth one time only. hydrOXYzine HCl (ATARAX) 50 mg tablet Take 1 tablet by mouth three times daily as needed for Anxiety. Hydrochlorothiazide 12.5 mg capsule Take 1 capsule by mouth once daily. No current facility-administered medications on file prior to visit. FAMILY HISTORY Problem Relation Age of Onset - Heart Father 35 - Cancer Father - Cancer Mother - Breast Cancer Paternal Grandmother - Breast Cancer Paternal Aunt - Cancer Maternal Uncle LUNG - Heart Maternal Grandmother Social History Substance Use Topics - Smoking status: Current Every Day Smoker Packs/day: 0.25 Years: 45.00 Types: Cigarettes - Smokeless tobacco: Never Used Comment: trying to quit - Alcohol use No BP 130/87 Pulse 89 Resp 24 Wt 83.5 kg (184 lb) BMI 33.65 kg/m2 . OBJECTIVE: APPEARANCE Well appearing, alert, in no acute distress, well-hydrated, well nourished. NECK Supple, no adenopathy; thyroid symmetric, normal size, no bruits HEART RRR with normal S1 and S2, no murmurs, no gallops, no JVD appreciated LUNG clear to auscultation ASSESSMENT: asthma with acute exacerbation acute exacerbation of COPD tobacco use disorder PLAN: try again to quit smoking switch from breo to anoro zpack as directed prednisone as directed same other medications Recheck low dose CT lung in 1 year to follow right upper lobe nodule ARBEN Lantigua MD, III MD CNOV Observed: 03/02/2018 Status: COMPLETED Source: [place] 1:20 PM [facility] REPOSITORY Office Visit (FAMPWS) BRITNEY MARIE ([id number]) 1960 F [facility] Date Time Provider Department 03/02/18 1:20 PM MARE RIVER III During your visit today, we recorded the following information about you: Pulse Respiration Blood pressure Weight 89/minute 24/minute 130/87 83.5 kg Mare River III MD 03/02/2018 6:33 PM Signed SUBJECTIVE: This is a 57 year old female that is here today for 1. cough productive of green phlegm x 3 wks. no fever. chest congestion and wheezing. Restarted breo and using albuterol inhaler frequently. Still smokes though she expressed interest in trying to quit again. 2. reviewed low dose CT lun mm ground glass nodule RUL--discussed that patient is to have a repeat low dose CT lung in 1 year. PAST MEDICAL HISTORY Diagnosis Date - ASHD (arteriosclerotic heart disease) 10/14/2011 - Bandemia 01/29/2018 - Cervical disc disorder 03/13/2011 - Cervical disc disorder at C4-C5 level with radiculopathy - Cocaine substance abuse 2003 - COPD (chronic obstructive pulmonary disease) (HCC) - Degenerative disc disease, cervical 2010 - Depression 2010 - Dysmetabolic syndrome X 01/21/2011 - Erosive esophagitis 09/04/2014 - Esophageal reflux Gastroesophageal reflux - Essential hypertension, benign 09/09/2010 no meds currently 03/26 - Fibrocystic breast changes, bilateral 01/28/2017 - Hyperlipidemia LDL goal ANDlt; 130 2010 - Hyperlipidemia LDL goal ANDlt; 70 10/14/2011 - Migraine headache 01/23/2012 - Myalgia - Non morbid obesity due to excess calories 08/29/2016 - Obstructive sleep apnea - Osteoporosis 03/13/2011 - Other cervical disc displacement at C4-C5 level - Other intervertebral disc displacement, lumbar region - Other muscle spasm - Other specified dorsopathies, lumbosacral region - Peptic ulcer, unspecified site, unspecified as acute or chronic, without mention of hemorrhage, perforation, or obstruction Peptic ulcer disease - Spinal stenosis, cervical region - Spondylosis without myelopathy or radiculopathy, cervical region - Tobacco abuse 01/23/2012 - Trigeminal neuralgia 12/29/2013 - Trigeminal neuralgia of right side of face 05/03/2015 - Vitamin D deficiency 03/19/2011 Current Outpatient Prescriptions on File Prior to Visit: isosorbide mononitrate ER (IMDUR) 30 mg 24 hr tablet Take 2 tablets by mouth once daily. coenzyme Q10 (COQ-10) 100 mg cap capsule Take 1 capsule by mouth twice daily. atorvastatin (LIPITOR) 80 mg tablet Take 1 tablet by mouth once daily. nitroglycerin sublingual (NITROQUICK) 0.4 mg SL tablet Dissolve 1 tablet under the tongue as needed. FOR CHEST PAIN. IF NO RELIEF CALL 911 metoprolol succinate ER (TOPROL XL) 50 mg 24 hr tablet Take 1 tablet by mouth once daily. pantoprazole DR (PROTONIX) 40 mg tablet TAKE 1 TABLET BY MOUTH EVERY DAY loratadine (CLARITIN) 10 mg tablet Take 1 tablet by mouth once daily. fluticasone-vilanterol (BREO ELLIPTA) 200-25 mcg/dose inhaler Inhale 1 Inhalation as instructed once daily. Inhale one puff once daily. DO NOT CLICK OPEN UNTIL READY FOR DOSE pregabalin (LYRICA) 100 mg capsule Take 1 capsule by mouth three times daily. albuterol HFA (PROAIR HFA) 90 mcg/actuation inhaler Inhale 2 Puffs as instructed every 4 hours as needed. alendronate (FOSAMAX) 70 mg tablet Take 1 tablet by mouth once each week. Take with a full glass of water, on an empty stomach; do NOT lie down for 30minutes. promethazine (PHENERGAN) 25 mg tablet Take 1 tablet by mouth four times daily as needed for Nausea/Vomiting. pantoprazole DR (PROTONIX) 40 mg tablet Take 1 tablet by mouth once daily. (Patient taking differently: Take 40 mg by mouth as needed.) morphine SR (MS CONTIN) 15 mg 12 hr tablet Take 15 mg by mouth twice daily as needed. escitalopram oxalate (LEXAPRO) 10 mg tablet Take 1 tablet by mouth once daily. aspirin 325 mg tablet Take 325 mg by mouth one time only. hydrOXYzine HCl (ATARAX) 50 mg tablet Take 1 tablet by mouth three times daily as needed for Anxiety. Hydrochlorothiazide 12.5 mg capsule Take 1 capsule by mouth once daily. No current facility-administered medications on file prior to visit. FAMILY HISTORY Problem Relation Age of Onset - Heart Father 35 - Cancer Father - Cancer Mother - Breast Cancer Paternal Grandmother - Breast Cancer Paternal Aunt - Cancer Maternal Uncle LUNG - Heart Maternal Grandmother Social History Substance Use Topics - Smoking status: Current Every Day Smoker Packs/day: 0.25 Years: 45.00 Types: Cigarettes - Smokeless tobacco: Never Used Comment: trying to quit - Alcohol use No BP 130/87 Pulse 89 Resp 24 Wt 83.5 kg (184 lb) BMI 33.65 kg/m2 . OBJECTIVE: APPEARANCE Well appearing, alert, in no acute distress, well- hydrated, well nourished. NECK Supple, no adenopathy; thyroid symmetric, normal size, no bruits HEART RRR with normal S1 and S2, no murmurs, no gallops, no JVD appreciated LUNG clear to auscultation ASSESSMENT: asthma with acute exacerbation acute exacerbation of COPD tobacco use disorder PLAN: try again to quit smoking switch from breo to anoro zpack as directed prednisone as directed same other medications Recheck low dose CT lung in 1 year to follow right upper lobe nodule Mare A Cebul, III MD Mare A Cebul, III MD Mare A Cebul, III MD 03/02/2018 1:55 PM Signed PLAN: try again to quit smoking switch from breo to anoro zpack as directed prednisone as directed same other medications Mare River III MD Referring Provider: LINDSEY MALONE ([facility]) [[id number]] Allergies As of Date: 03/02/2018 Noted Allergy Reaction LATEX 10/21/2013 2 - Rash DARVOCET A500 (PROPOXYPHENE N-CORRIE*08/05/2017 9 - Itching DARVOCET-N 100 (PROPOXYPHENE N-AC*12/11/2009 9 - Itching DILAUDID (HYDROMORPHONE HCL) 08/05/2017 14 - Other: See Comments Comments: Burning sensation over entire body EES [Other] 11/24/2005 HEPARIN ANALOGUES 06/09/2013 4 - Hives 7 - Swelling KEFLEX (CEPHALEXIN) 08/05/2017 7 - Swelling 9 - Itching 12 - Shortness of Breath LEVAQUIN (LEVOFLOXACIN) 11/10/2013 9 - Itching LISINOPRIL 01/17/2015 14 - Other: See Comments Comments: flushing OXYCODONE 08/05/2017 9 - Itching OXYCOTIN (OXYCODONE) 12/11/2009 4 - Hives 7 - Swelling 9 - Itching PENICILLIN 08/05/2017 10 - Anaphylaxis Comments: 4 years old PERCOCET (OXYCODONE-ACETAMINOPHEN)12/11/2009 9 - Itching POLYTRIM (POLYMYXIN B SULF-TRIMET*03/29/2015 7 - Swelling 9 - Itching SULFA (SULFONAMIDE ANTIBIOTICS) 11/24/2005 4 - Hives TEGRETOL (CARBAMAZEPINE) 06/04/2015 1 - Mental Status Change VIBRAMYCIN (DOXYCYCLINE CALCIUM) 08/05/2017 4 - Hives 9 - Itching VICODIN (HYDROCODONE-ACETAMINOPHE*11/24/2005 ADHESIVE TAPE (ROSINS) 03/03/2012 2 - Rash 9 - Itching Date Reviewed: 03/02/2018 Reviewed by: Jada Chacon LPN - Fully Assessed Reason for Visit: Recheck [92] Cmt: Follow up Primary Visit Diagnosis:Acute bronchitis with chronic obstructive pulmonary disease (COPD) ([facility]) [J44.0, J20.9] Other Visit Diagnoses:Moderate persistent asthma with acute exacerbation [J45.41] Tobacco use [Z72.0] Nodule of right lung [R91.1] Order(s):azithromycin (ZITHROMAX Z-ERIC) 250 mg tabletTake 2 tablets day one, then, 1 tablet daily until gone.Disp: 1 PackageRfl: 0 predniSONE (DELTASONE) 10 mg tabletTake by mouth- 4 tabs daily for 3 days, then 2 tabs daily for 3 days, then 1 tab daily for 3 days with food.Disp: 21 tabletRfl: 0 umeclidinium-vilanterol (ANORO ELLIPTA) 62.5-25 mcg/actuation inhalerInhale 1 Inhalation as instructed once daily. Inhale one puff once daily. DO NOT CLICK OPEN UNTIL READY FOR DOSEDisp: 1 EachRfl: 11 Prescriptions as of 03/02/2018 Sig: COENZYME Q10 100 MG CAPSULE Take 1 capsule by mouth twice* ATORVASTATIN 80 MG TABLET Take 1 tablet by mouth once d* NITROGLYCERIN 0.4 MG SUBLINGU* Dissolve 1 tablet under the t* METOPROLOL SUCCINATE ER 50 MG* Take 1 tablet by mouth once d* LORATADINE 10 MG TABLET Take 1 tablet by mouth once d* PREGABALIN 100 MG CAPSULE Take 1 capsule by mouth three* ALBUTEROL SULFATE HFA 90 MCG/* Inhale 2 Puffs as instructed * ALENDRONATE 70 MG TABLET Take 1 tablet by mouth once e* PROMETHAZINE 25 MG TABLET Take 1 tablet by mouth four t* PANTOPRAZOLE 40 MG TABLET,DEL* Take 1 tablet by mouth once d* Patient taking differently: Take 40 mg by mouth as needed. MORPHINE ER 15 MG TABLET,EXTE* Take 15 mg by mouth twice octavio* AZITHROMYCIN 250 MG TABLET Take 2 tablets day one, then,* PREDNISONE 10 MG TABLET Take by mouth- 4 tabs daily f* UMECLIDINIUM 62.5 MCG-VILANTE* Inhale 1 Inhalation as instru* Problem List As Of Date 03/02/2018 Noted Resolved Cocaine substance abuse [F14.10] 09/04/2014 Essential hypertension, benign [I10] INVALID FOR* Priority: F More... Degenerative disc disease, cervical [M50.30] INVALID FOR* Priority: D More... Depression [F32.9] INVALID FOR* Priority: E More... Dysmetabolic syndrome X [E88.81] INVALID FOR* Osteoporosis [M81.0] INVALID FOR* Cervical disc disorder [M50.90] INVALID FOR* Vitamin D deficiency [E55.9] INVALID FOR* Hyperlipidemia with target LDL less than 70 [E7*INVALID FOR* Priority: G More... ASHD (arteriosclerotic heart disease) [I25.10] INVALID FOR* More... Chest pain [R07.9] INVALID FOR*09/04/2014 Priority: B More... Tobacco abuse [Z72.0] INVALID FOR* Priority: I More... Tobacco abuse counseling [Z71.6] INVALID FOR* Migraine headache [G43.909] INVALID FOR* Priority: H More... SUMMARY [V999.95] INVALID FOR* Priority: A More... Asthma [J45.909] INVALID FOR* Priority: C More... Elevated gastrin level [E16.4] INVALID FOR* Flushing [R23.2] INVALID FOR* Trigeminal neuralgia [G50.0] INVALID FOR* Erosive esophagitis [K22.10] INVALID FOR* Spontaneous ecchymoses [R23.3] INVALID FOR* Lumbar back pain with radiculopathy affecting l*INVALID FOR* Arteriosclerosis of carotid artery [I65.29] INVALID FOR* MELYSSA (obstructive sleep apnea) [G47.33] INVALID FOR* Trigeminal neuralgia of right side of face [G50*INVALID FOR* Obesity (BMI 30-39.9) [E66.9] INVALID FOR* Grief [F43.20] INVALID FOR* Other seasonal allergic rhinitis [J30.2] INVALID FOR* Anxiety and depression [F41.9, F32.9] INVALID FOR* Sense of smell altered [R43.9] INVALID FOR* Nonintractable headache [R51] INVALID FOR* Non morbid obesity due to excess calories [E66.*INVALID FOR* Fibrocystic breast changes, bilateral [N60.11, *INVALID FOR* Orthostatic hypotension [I95.1] INVALID FOR* Moderate episode of recurrent major depressive *INVALID FOR* 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 Other instructions from your clinician: PLAN: try again to quit smoking switch from breo to anoro zpack as directed prednisone as directed same other medications Mare River III MD Prescriptions ordered this encounter Disp Refills Start End AZITHROMYCIN 250 MG TABLET 1 Pa* 0 03/02/2018 03/07/2018 Sig: Take 2 tablets day one, then, 1 tablet daily until gone. PREDNISONE 10 MG TABLET 21 t* 0 03/02/2018 Sig: Take by mouth- 4 tabs daily for 3 days, then 2 tabs daily for 3 days, then 1 tab daily for 3 days with food. UMECLIDINIUM 62.5 MCG-VILANTEROL 25 * 1 Ea* 11 03/02/2018 Cmt: Please instruct patient in use Route: INHALATION Sig: Inhale 1 Inhalation as instructed once daily. Inhale one puff once daily. DO NOT CLICK OPEN UNTIL READY FOR DOSE Medications Discontinued During This Encounter fluticasone-vilanterol (BREO ELLIPTA* 1 Ea* 11 11/17/2017 03/02/2018 Route: INHALATION Sig: Inhale 1 Inhalation as instructed once daily. Inhale one puff once daily. DO NOT CLICK OPEN UNTIL READY FOR DOSE Disc: Clinical Decision isosorbide mononitrate ER (IMDUR) 30* 60 t* 11 02/09/2018 03/02/2018 Route: ORAL Sig: Take 2 tablets by mouth once daily. Disc: Discontinued by another Health Care Provider pantoprazole DR (PROTONIX) 40 mg tab* 30 t* 11 01/11/2018 03/02/2018 Sig: TAKE 1 TABLET BY MOUTH EVERY DAY Disc: Duplicate Entry aspirin 325 mg tablet 03/02/2018 Class: Historical Med Route: ORAL Sig: Take 325 mg by mouth one time only. Disc: Discontinued by Patient escitalopram oxalate (LEXAPRO) 10 mg* 30 t* 11 01/28/2018 03/02/2018 Route: ORAL Sig: Take 1 tablet by mouth once daily. Disc: Discontinued by Patient hydrOXYzine HCl (ATARAX) 50 mg tablet 90 t* 0 01/18/2018 03/02/2018 Route: ORAL Sig: Take 1 tablet by mouth three times daily as needed for Anxiety. Disc: Course of therapy completed Hydrochlorothiazide 12.5 mg capsule 30 c* 3 01/07/2018 03/02/2018 Route: ORAL Sig: Take 1 capsule by mouth once daily. Disc: Course of therapy completed Encounter Status:Closed by MARE RIVER III, MD on 03/02/[address] LUNG Observed: 02/09/2018 Status: F Source: [place] SCREENING 5:04 PM [facility] [place] REPOSITORY [facility] Imaging Services [address] [place] [id number] Lung Screening MR#: [id number] Acct: [id number] Name: BRITNEY MARIE Rep #: [id number] : 1960 F 57 From: Ambrocio Grimes DO PCP: Mare River III, MD Status: REG CLI Study: Low Dose CT Lung Screening Date of Exam: 02/09/18 Exam# [id number] Ordering Dr: Gisell Silva MD STUDY: LOW DOSE CT LUNG CANCER SCREENING REASON FOR EXAM: Female, 57 years old. Tobacco use. RADIATION DOSAGE (If Supplied By Facility): CTDIvol = ( 3.02 ) mGy, DLP = ( 94.40 ) mGycm TECHNIQUE: No contrast was administered. Low dose technique was utilized (average mAS-38 and kVp 120). 1.25 mm axial source images with a slice interval of 1.25- mm were reconstructed in lung windows. 2.5 mm axial source images with a slice interval of 2.5-mm were reconstructed in lung windows. 5.0 mm axial source images with a slice interval of 5.0-mm were reconstructed in soft tissue windows. Nodule measured using lung windows on PACS and/or independent workstation with automated measurement of minimum and maximum diameter. Nodule measurement reported as average diameter rounded to the nearest whole number. Growth is defined as an increase ins size of greater than 1.5 mm. COMPARISON: CT of the chest, May 03, 2013. NODULES: Nodule #: 1 Density: Ground glass Lung location: Right upper lobe: 2.8 cm from pleura Location in series: Series Number: 2 Image: 85 Size - D1 x D2 mm: 5 x 4 mm: 5 mm average diameter Margin: Ill-defined Shape: Triangular Calcification: No Fat: No Temporal comparison: No Total lung nodules (excluding granulomas): 1 Emphysema: There is diffuse emphysematous changes of the lungs with blebs in the right upper lobe unchanged from the prior study. Endobronchial lesion: None Aorta: There is atherosclerotic changes of the aorta without aneurysm. Coronary arteries: There are coronary artery calcifications. Heart: The heart is normal in size. Pulmonary artery: Normal Mediastinal nodes: None Other chest and abdominal findings: None CT/Low Dose CT Lung Screening IMPRESSION: Lung-RADS category 2 - Continue annual screening with LDCT in 12 months. IMPORTANT NOTES FOR USE: ACR Lung-RADS Version 1.0 Assessment Categories Release Date: March 13, 2014 Category: Coded 0-4 bases on nodule(s) with highest degree of suspicion. Negative screen is defined as categories 1 and 2; a positive screen is defined as categories 3 and 4. Category 3 and 4A nodules that are unchanged on interval CT should be coded as category 2, and individuals returned to screening in 12 months. Category 4X: Category 3 or 4 nodules with additional imaging findings that increase the suspicion of lung cancer, such as spiculation, GGN that doubles in size in 1 year, enlarged lymph notes, etc. Category Modifiers: S (significant finding unrelated to lung cancer) and C (prior history of treated lung cancer) may be added to the 0-4 Lung-RADS Electronically Signed: Ambrocio Grimes DO at 17:06 EDT Tel [phone], Service support , CC: Mare River III, MD; Gisell Silva MD Electrical Test Technician: Signed PROGRESS Observed: 02/09/2018 Status: COMPLETED Source: [place] 2:39 PM CLINIC OTHER CAMPUS REPOSITORY HNO ID: [id number] Author: Lazaro Vargas Service: (none) Author Type: Physician Type: Progress Notes Filed: 02/11/2018 8:52 AM Note Text: PERTINENT CARDIAC HISTORY ASHD - moderate by cath HL HTN DM Tobaccoism MELYSSA - CPAP ADHERENCE TO GUIDELINES CORRIE-I or ARB for HF with prior LVEF<40 (NQF 0081) - N/A ASA or Plavix for ASHD (NQF 0067) - met Beta madison for ASHD with prior IN or prior LVEF<40 (NQF 0070) - N/A Beta [place]ison for HF with prior LVEF<40 (NQF 0083) - N/A CORRIE-I or ARB for ASHD with DM or prior LVEF<40 (NQF 0066) - N/A Statin therapy for ASHD or FHL or DM - met BMI documented and plan if >25 (NQF 0421) - lifestyle recommendation form Tobacco use screening and referral (NQF 0028) - lifestyle recommendation form Recommendation for whole food, plant based diet - lifestyle recommendation form CLINICAL IMPRESSION/PLAN: Britney Marie has moderate coronary plaque. She has opportunity to improve her lifestyle. I suggested she add coenzyme Q10. She's been advised to try to get her stress under better control. She may increase her isosorbide as tolerated to a maximum of 60 milligrams daily. I've encouraged her to use nitroglycerin liberally for chest discomfort. I asked her to call with follow-up in a few weeks. Laboratory studies are due in next month to determine response to higher dose statin. I will see her in 6 months or as needed. Written and verbal health teaching given to patient, patient verbalizes understanding and agrees with treatment plan. DIAGNOSIS FOR VISIT: ASHD HISTORY OF PRESENT ILLNESS Britney Marie returns for follow-up of coronary disease and hypertension. She reports that she has had occasional exertional chest discomfort. She has stopped smoking. She has used no nitroglycerin. She recently underwent angiography with the finding of moderate plaque but no high- grade disease. She has not increased isosorbide as suggested. She denies orthopnea. She's had chronic edema. She has had no syncope, palpitations, TIAs, amaurosis or claudication. ALLERGIES: ALLERGIES Allergen Reactions - Latex Rash - Darvocet A500 [Prop* Itching - Darvocet-N 100 [Pro* Itching - Dilaudid [Hydromorp* Other: See Comments Burning sensation over entire body - Ees [Other] - Heparin Analogues Hives, Swelling - Keflex [Cephalexin] Swelling, Itching, Shortness of Breath - Levaquin [Levofloxa* Itching - Lisinopril Other: See Comments flushing - Oxycodone Itching - Oxycotin [Oxycodone] Hives, Swelling, Itching - Penicillin Anaphylaxis 4 years old - Percocet [Oxycodone* Itching - Polytrim [Polymyxin* Swelling, Itching - Sulfa (Sulfonamide * Hives - Tegretol [Carbamaze* Mental Status Change - Vibramycin [Doxycyc* Hives, Itching - Vicodin [Hydrocodon* - Adhesive Tape (Elizabeth* Rash, Itching CURRENT OUTPATIENT MEDICATIONS: escitalopram oxalate (LEXAPRO) 10 mg tablet Take 1 tablet by mouth once daily. aspirin 325 mg tablet Take 325 mg by mouth one time only. isosorbide mononitrate ER (IMDUR) 30 mg 24 hr tablet Take 1 tablet by mouth once daily. atorvastatin (LIPITOR) 80 mg tablet Take 1 tablet by mouth once daily. nitroglycerin sublingual (NITROQUICK) 0.4 mg SL tablet Dissolve 1 tablet under the tongue as needed. FOR CHEST PAIN. IF NO RELIEF CALL 911 metoprolol succinate ER (TOPROL XL) 50 mg 24 hr tablet Take 1 tablet by mouth once daily. hydrOXYzine HCl (ATARAX) 50 mg tablet Take 1 tablet by mouth three times daily as needed for Anxiety. pantoprazole DR (PROTONIX) 40 mg tablet TAKE 1 TABLET BY MOUTH EVERY DAY loratadine (CLARITIN) 10 mg tablet Take 1 tablet by mouth once daily. Hydrochlorothiazide 12.5 mg capsule Take 1 capsule by mouth once daily. fluticasone-vilanterol (BREO ELLIPTA) 200-25 mcg/dose inhaler Inhale 1 Inhalation as instructed once daily. Inhale one puff once daily. DO NOT CLICK OPEN UNTIL READY FOR DOSE pregabalin (LYRICA) 100 mg capsule Take 1 capsule by mouth three times daily. albuterol HFA (PROAIR HFA) 90 mcg/actuation inhaler Inhale 2 Puffs as instructed every 4 hours as needed. alendronate (FOSAMAX) 70 mg tablet Take 1 tablet by mouth once each week. Take with a full glass of water, on an empty stomach; do NOT lie down for 30minutes. promethazine (PHENERGAN) 25 mg tablet Take 1 tablet by mouth four times daily as needed for Nausea/Vomiting. pantoprazole DR (PROTONIX) 40 mg tablet Take 1 tablet by mouth once daily. morphine SR (MS CONTIN) 15 mg 12 hr tablet Take 15 mg by mouth twice daily as needed. PHYSICAL EXAMINATION: VITAL SIGNS: BP 140/90 Pulse 94 Wt 187 lb 4.8 oz (85.0kg) Chest: Clear to percussion and auscultation. Trachea is midline. Air entry is equal. Cardiac: Regular rhythm. S1 and S2 are normal. PMI is nondisplaced. There is a soft S4 gallop. Carotids are brisk without bruits. JVP is less than 10 cm. Abdomen: Soft and nontender. There are no pulsatile masses or bruits. No liver enlargement. Bowel sounds are active. Extremities: No edema. Pulses are intact and symmetrical. Angiography was reviewed. Images are not available. There was 40% diffuse plaque in the right coronary. No significant stenosis was noted. Electronically Signed: Lazaro Vargas MD February 09, 2018 2:39 PM CC: ARBEN Lantigua MD Observed: 02/09/2018 Status: COMPLETED Source: [place] 2:00 PM CLINIC OTHER [place] REPOSITORY Office Visit (AGCARDWST) BRITNEY MARIE ([id number]) 1960 F T Date Time Provider Department 02/09/18 2:00 PM LAZARO VARGAS During your visit today, we recorded the following information about you: Pulse Blood pressure Weight 94/minute 140/90 85 kg Lazaro Vargas MD 02/11/2018 8:52 AM Signed PERTINENT CARDIAC HISTORY ASHD - moderate by cath HL HTN DM Tobaccoism EMLYSSA - CPAP ADHERENCE TO GUIDELINES CORRIE-I or ARB for HF with prior LVEFANDlt;40 (NQF 0081) - N/A ASA or Plavix for ASHD (NQF 0067) - met Beta madison for ASHD with prior IN or prior LVEFANDlt;40 (NQF 0070) - N/A Beta [place] for HF with prior LVEFANDlt;40 (NQF 0083) - N/A CORRIE-I or ARB for ASHD with DM or prior LVEFANDlt;40 (NQF 0066) - N/A Statin therapy for ASHD or FHL or DM - met BMI documented and plan if ANDgt;25 (NQF 0421) - lifestyle recommendation form Tobacco use screening and referral (NQ 0028) - lifestyle recommendation form Recommendation for whole food, plant based diet - lifestyle recommendation form CLINICAL IMPRESSION/PLAN: Britney Marie has moderate coronary plaque. She has opportunity to improve her lifestyle. I suggested she add coenzyme Q10. She's been advised to try to get her stress under better control. She may increase her isosorbide as tolerated to a maximum of 60 milligrams daily. I've encouraged her to use nitroglycerin liberally for chest discomfort. I asked her to call with follow-up in a few weeks. Laboratory studies are due in next month to determine response to higher dose statin. I will see her in 6 months or as needed. Written and verbal health teaching given to patient, patient verbalizes understanding and agrees with treatment plan. DIAGNOSIS FOR VISIT: ASHD HISTORY OF PRESENT ILLNESS Britney Marie returns for follow-up of coronary disease and hypertension. She reports that she has had occasional exertional chest discomfort. She has stopped smoking. She has used no nitroglycerin. She recently underwent angiography with the finding of moderate plaque but no high- grade disease. She has not increased isosorbide as suggested. She denies orthopnea. She's had chronic edema. She has had no syncope, palpitations, TIAs, amaurosis or claudication. ALLERGIES: ALLERGIES Allergen Reactions - Latex Rash - Darvocet A500 [Prop* Itching - Darvocet-N 100 [Pro* Itching - Dilaudid [Hydromorp* Other: See Comments Burning sensation over entire body - Ees [Other] - Heparin Analogues Hives, Swelling - Keflex [Cephalexin] Swelling, Itching, Shortness of Breath - Levaquin [Levofloxa* Itching - Lisinopril Other: See Comments flushing - Oxycodone Itching - Oxycotin [Oxycodone] Hives, Swelling, Itching - Penicillin Anaphylaxis 4 years old - Percocet [Oxycodone* Itching - Polytrim [Polymyxin* Swelling, Itching - Sulfa (Sulfonamide * Hives - Tegretol [Carbamaze* Mental Status Change - Vibramycin [Doxycyc* Hives, Itching - Vicodin [Hydrocodon* - Adhesive Tape (Elizabeth* Rash, Itching CURRENT OUTPATIENT MEDICATIONS: escitalopram oxalate (LEXAPRO) 10 mg tablet Take 1 tablet by mouth once daily. aspirin 325 mg tablet Take 325 mg by mouth one time only. isosorbide mononitrate ER (IMDUR) 30 mg 24 hr tablet Take 1 tablet by mouth once daily. atorvastatin (LIPITOR) 80 mg tablet Take 1 tablet by mouth once daily. nitroglycerin sublingual (NITROQUICK) 0.4 mg SL tablet Dissolve 1 tablet under the tongue as needed. FOR CHEST PAIN. IF NO RELIEF CALL 911 metoprolol succinate ER (TOPROL XL) 50 mg 24 hr tablet Take 1 tablet by mouth once daily. hydrOXYzine HCl (ATARAX) 50 mg tablet Take 1 tablet by mouth three times daily as needed for Anxiety. pantoprazole DR (PROTONIX) 40 mg tablet TAKE 1 TABLET BY MOUTH EVERY DAY loratadine (CLARITIN) 10 mg tablet Take 1 tablet by mouth once daily. Hydrochlorothiazide 12.5 mg capsule Take 1 capsule by mouth once daily. fluticasone-vilanterol (BREO ELLIPTA) 200-25 mcg/dose inhaler Inhale 1 Inhalation as instructed once daily. Inhale one puff once daily. DO NOT CLICK OPEN UNTIL READY FOR DOSE pregabalin (LYRICA) 100 mg capsule Take 1 capsule by mouth three times daily. albuterol HFA (PROAIR HFA) 90 mcg/actuation inhaler Inhale 2 Puffs as instructed every 4 hours as needed. alendronate (FOSAMAX) 70 mg tablet Take 1 tablet by mouth once each week. Take with a full glass of water, on an empty stomach; do NOT lie down for 30minutes. promethazine (PHENERGAN) 25 mg tablet Take 1 tablet by mouth four times daily as needed for Nausea/Vomiting. pantoprazole DR (PROTONIX) 40 mg tablet Take 1 tablet by mouth once daily. morphine SR (MS CONTIN) 15 mg 12 hr tablet Take 15 mg by mouth twice daily as needed. PHYSICAL EXAMINATION: VITAL SIGNS: BP 140/90 Pulse 94 Wt 187 lb 4.8 oz (85.0kg) Chest: Clear to percussion and auscultation. Trachea is midline. Air entry is equal. Cardiac: Regular rhythm. S1 and S2 are normal. PMI is nondisplaced. There is a soft S4 gallop. Carotids are brisk without bruits. JVP is less than 10 cm. Abdomen: Soft and nontender. There are no pulsatile masses or bruits. No liver enlargement. Bowel sounds are active. Extremities: No edema. Pulses are intact and symmetrical. Angiography was reviewed. Images are not available. There was 40% diffuse plaque in the right coronary. No significant stenosis was noted. Electronically Signed: Lazaro Vargas MD February 09, 2018 2:39 PM CC: ARBEN Lantigua MD, MD 02/09/2018 2:40 PM Signed LIFESTYLE CHANGE A healthy lifestyle is the most important component of your overall treatment plan. Please give serious thought to the following areas and commit to making termite inspector changes. EAT A WHOLE FOOD, PLANT BASED DIET The nutrition your body gets is more important than the medicine you take. What matters most is the overall way you eat. We encourage you to minimize the use of animal products (which include dairy and all meats except fatty fish) and use whole, unprocessed plant foods to provide your protein, vitamins and other nutrients. We have a lot of information to share with you on this topic. We also hold Shared Medical Appointments, where you can come visit with Dr. Vargas in the company of other patients and spend over an hour talking about the challenges of changing the way you eat. This is not a ANDquot;dietANDquot;. It is a way of life that you will keep with you. EXERCISE REGULARLY It is not important to spend hours in the gym, lifting weights and perspiring heavily. A total of 2-3 hours per week of aerobic (causing you to be moderately short of breath) exercise is sufficient to improve your health. Talk to us before you begin a new exercise program, if you have heart disease or experience shortness of breath or chest pain. REDUCE STRESS Chronic emotional and physical stress leads to disease. Ways of reducing stress include meditation, visualization, prayer, yoga and other forms of relaxation therapy. Consistency is the marroquin. Find a technique that works for you and do it every day. CULTIVATE RELATIONSHIPS Loneliness and isolation have a major negative impact on health. Seek out others who can love, care for and nurture you. Avoid hurtful relationships. MAINTAIN IDEAL BODY WEIGHT The best way to do this is to do all the things above. Our bodies naturally find the right weight if we keep moving and feed ourselves the right food. If your BMI is greater than 25, we strongly recommend a referral to a weight management program. Please speak to us or your family physician about available programs. AVOID NICOTINE IN ALL FORMS This includes all tobacco products, whether chewed, smoked, vaped, or rubbed on the skin. Smoking cessation programs, which can make use of tobacco substitutes, medications to suppress cravings and behavior management, are available. Please contact your family physician about programs in your area. Referring Provider: LAZARO VARGAS [[id number]] Allergies As of Date: 02/09/2018 Noted Allergy Reaction LATEX 10/21/2013 2 - Rash DARVOCET A500 (PROPOXYPHENE N-CORRIE*08/05/2017 9 - Itching DARVOCET-N 100 (PROPOXYPHENE N-AC*12/11/2009 9 - Itching DILAUDID (HYDROMORPHONE HCL) 08/05/2017 14 - Other: See Comments Comments: Burning sensation over entire body EES [Other] 11/24/2005 HEPARIN ANALOGUES 06/09/2013 4 - Hives 7 - Swelling KEFLEX (CEPHALEXIN) 08/05/2017 7 - Swelling 9 - Itching 12 - Shortness of Breath LEVAQUIN (LEVOFLOXACIN) 11/10/2013 9 - Itching LISINOPRIL 01/17/2015 14 - Other: See Comments Comments: flushing OXYCODONE 08/05/2017 9 - Itching OXYCOTIN (OXYCODONE) 12/11/2009 4 - Hives 7 - Swelling 9 - Itching PENICILLIN 08/05/2017 10 - Anaphylaxis Comments: 4 years old PERCOCET (OXYCODONE-ACETAMINOPHEN)12/11/2009 9 - Itching POLYTRIM (POLYMYXIN B SULF-TRIMET*03/29/2015 7 - Swelling 9 - Itching SULFA (SULFONAMIDE ANTIBIOTICS) 11/24/2005 4 - Hives TEGRETOL (CARBAMAZEPINE) 06/04/2015 1 - Mental Status Change VIBRAMYCIN (DOXYCYCLINE CALCIUM) 08/05/2017 4 - Hives 9 - Itching VICODIN (HYDROCODONE-ACETAMINOPHE*11/24/2005 ADHESIVE TAPE (ROSINS) 03/03/2012 2 - Rash 9 - Itching Date Reviewed: 02/09/2018 Reviewed by: Delfina Sykes - Fully Assessed Reason for Visit: Recheck [92] Primary Visit Diagnosis:Hypertension, essential [I10] Other Visit Diagnosis:ASHD (arteriosclerotic heart disease) [I25.10] Order(s):LIPID PANEL BASIC [SQLIPB] Order #: [id number] FUTURE ALT/SGPT [SQALT] Order #: [id number] FUTURE CK CREATINE KINASE [SQCK] Order #: [id number] FUTURE isosorbide mononitrate ER (IMDUR) 30 mg 24 hr tabletTake 2 tablets by mouth once daily.Disp: 60 tabletRfl: 11 coenzyme Q10 (COQ-10) 100 mg cap capsuleTake 1 capsule by mouth twice daily.Disp: 30 capsuleRfl: 11 Prescriptions as of 02/09/2018 Sig: ISOSORBIDE MONONITRATE ER 30 * Take 2 tablets by mouth once * COENZYME Q10 100 MG CAPSULE Take 1 capsule by mouth twice* ESCITALOPRAM 10 MG TABLET Take 1 tablet by mouth once d* ASPIRIN 325 MG TABLET Take 325 mg by mouth one time* ATORVASTATIN 80 MG TABLET Take 1 tablet by mouth once d* NITROGLYCERIN 0.4 MG SUBLINGU* Dissolve 1 tablet under the t* METOPROLOL SUCCINATE ER 50 MG* Take 1 tablet by mouth once d* HYDROXYZINE HCL 50 MG TABLET Take 1 tablet by mouth three * PANTOPRAZOLE 40 MG TABLET,DEL* TAKE 1 TABLET BY MOUTH EVERY * LORATADINE 10 MG TABLET Take 1 tablet by mouth once d* HYDROCHLOROTHIAZIDE 12.5 MG C* Take 1 capsule by mouth once * FLUTICASONE 200 MCG-VILANTERO* Inhale 1 Inhalation as instru* PREGABALIN 100 MG CAPSULE Take 1 capsule by mouth three* ALBUTEROL SULFATE HFA 90 MCG/* Inhale 2 Puffs as instructed * ALENDRONATE 70 MG TABLET Take 1 tablet by mouth once e* PROMETHAZINE 25 MG TABLET Take 1 tablet by mouth four t* PANTOPRAZOLE 40 MG TABLET,DEL* Take 1 tablet by mouth once d* Patient taking differently: Take 40 mg by mouth as needed. MORPHINE ER 15 MG TABLET,EXTE* Take 15 mg by mouth twice octavio* Problem List As Of Date 02/09/2018 Noted Resolved Cocaine substance abuse [F14.10] 09/04/2014 Essential hypertension, benign [I10] INVALID FOR* Priority: F More... Degenerative disc disease, cervical [M50.30] INVALID FOR* Priority: D More... Depression [F32.9] INVALID FOR* Priority: E More... Dysmetabolic syndrome X [E88.81] INVALID FOR* Osteoporosis [M81.0] INVALID FOR* Cervical disc disorder [M50.90] INVALID FOR* Vitamin D deficiency [E55.9] INVALID FOR* Hyperlipidemia with target LDL less than 70 [E7*INVALID FOR* Priority: G More... ASHD (arteriosclerotic heart disease) [I25.10] INVALID FOR* More... Chest pain [R07.9] INVALID FOR*09/04/2014 Priority: B More... Tobacco abuse [Z72.0] INVALID FOR* Priority: I More... Tobacco abuse counseling [Z71.6] INVALID FOR* Migraine headache [G43.909] INVALID FOR* Priority: H More... SUMMARY [V999.95] INVALID FOR* Priority: A More... Asthma [J45.909] INVALID FOR* Priority: C More... Elevated gastrin level [E16.4] INVALID FOR* Flushing [R23.2] INVALID FOR* Trigeminal neuralgia [G50.0] INVALID FOR* Erosive esophagitis [K22.10] INVALID FOR* Spontaneous ecchymoses [R23.3] INVALID FOR* Lumbar back pain with radiculopathy affecting l*INVALID FOR* Arteriosclerosis of carotid artery [I65.29] INVALID FOR* MELYSSA (obstructive sleep apnea) [G47.33] INVALID FOR* Trigeminal neuralgia of right side of face [G50*INVALID FOR* Obesity (BMI 30-39.9) [E66.9] INVALID FOR* Grief [F43.20] INVALID FOR* Other seasonal allergic rhinitis [J30.2] INVALID FOR* Anxiety and depression [F41.8] INVALID FOR* Sense of smell altered [R43.9] INVALID FOR* Nonintractable headache [R51] INVALID FOR* Non morbid obesity due to excess calories [E66.*INVALID FOR* Fibrocystic breast changes, bilateral [N60.11, *INVALID FOR* Orthostatic hypotension [I95.1] INVALID FOR* Moderate episode of recurrent major depressive *INVALID FOR* 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 Please give serious thought to the following areas and commit to making termite inspector changes. EAT A WHOLE FOOD, PLANT BASED DIET The nutrition your body gets is more important than the medicine you take. What matters most is the overall way you eat. We encourage you to minimize the use of animal products (which include dairy and all meats except fatty fish) and use whole, unprocessed plant foods to provide your protein, vitamins and other nutrients. We have a lot of information to share with you on this topic. We also hold Shared Medical Appointments, where you can come visit with Dr. Vargas in the company of other patients and spend over an hour talking about the challenges of changing the way you eat. This is not a diet. It is a way of life that you will keep with you. EXERCISE REGULARLY It is not important to spend hours in the gym, lifting weights and perspiring heavily. A total of 2-3 hours per week of aerobic (causing you to be moderately short of breath) exercise is sufficient to improve your health. Talk to us before you begin a new exercise program, if you have heart disease or experience shortness of breath or chest pain. REDUCE STRESS Chronic emotional and physical stress leads to disease. Ways of reducing stress include meditation, visualization, prayer, yoga and other forms of relaxation therapy. Consistency is the marroquin. Find a technique that works for you and do it every day. CULTIVATE RELATIONSHIPS Loneliness and isolation have a major negative impact on health. Seek out others who can love, care for and nurture you. Avoid hurtful relationships. MAINTAIN IDEAL BODY WEIGHT The best way to do this is to do all the things above. Our bodies naturally find the right weight if we keep moving and feed ourselves the right food. If your BMI is greater than 25, we strongly recommend a referral to a weight management program. Please speak to us or your family physician about available programs. AVOID NICOTINE IN ALL FORMS This includes all tobacco products, whether chewed, smoked, vaped, or rubbed on the skin. Smoking cessation programs, which can make use of tobacco substitutes, medications to suppress cravings and behavior management, are available. Please contact your family physician about programs in your area. Prescriptions ordered this encounter Disp Refills Start End ISOSORBIDE MONONITRATE ER 30 MG TABL* 60 t* 11 02/09/2018 Route: ORAL Sig: Take 2 tablets by mouth once daily. COENZYME Q10 100 MG CAPSULE 30 c* 11 02/09/2018 Route: ORAL Sig: Take 1 capsule by mouth twice daily. Medications Discontinued During This Encounter isosorbide mononitrate ER (IMDUR) 30* 30 t* 5 01/25/2018 02/09/2018 Class: Print RX Route: ORAL Sig: Take 1 tablet by mouth once daily. Disc: Reason for discontinue is not on file. Encounter Status:Closed by LAZARO VARGAS MD on 02/11/18 PROGRESS Observed: 02/02/2018 Status: COMPLETED Source: [place] 2:45 PM [facility] REPOSITORY O ID: [id number] Author: Gisell Silva Service: (none) Author Type: Physician Type: Progress Notes Filed: 02/03/2018 9:48 AM Note Text: Hematology and Medical Oncology PATIENT NAME: Britney Marie. CLINIC NO: [id number]. ATTENDING PHYSICIAN: Gisell Silva MD. DATE OF SERVICE:02/02/2018. DIAGNOSIS: leukocytosis ( bandemia ) and secondary polycythemia Consultation requested by for an opinion regarding Leukocytosis and polycythemia. My final recommendations will be communicated back to the requesting physician by way of shared Medical record or letter to requesting physician via US mail. PERFORMANCE STATUS:80% HPI: This is a 57-year-old female with long history of tobacco addiction, 48 [id number] smoking history currently still smoking 3/4 - half packs cigarette per day. She has history of COPD/asthma, chronic headaches, nausea, hypertension, and generalized anxiety disorder. The patient has no fever, chills but has history of night sweats. Patient has no weight loss or anorexia. She has no jaundice, early satiety or pruritus. She has chronic headaches almost daily with nausea but no vomiting. Also complaining of chronic fatigue and dyspnea and exertion. Patient has chronic cough which is unchanged and characteristic. Always with clear sputum, no hemoptysis. She has no hoarseness or dysphagia. Patient has no visual changes, or neuropathy. She had a colonoscopy and EGD 5 years ago for cancer screening. Results of her colonoscopy was normal. She also had a bilateral mammogram recently which were normal. CT abdomen and pelvis last year for evaluation of abdominal hernia which showed no evidence of malignancy. She has a possible hemangioma in the liver. She has a chronic leukocytosis (neutrophilia) along with polycythemia last month with an elevated hemoglobin and platelet count. her sedimentation rate and C reactive protein levels were not significantly elevated. There is no recent illness in the family. Family history positive for leukemia and breast cancer. She is here today for evaluation of leukocytosis and possible polycythemia. MEDICATIONS: Current Outpatient Prescriptions: escitalopram oxalate (LEXAPRO) 10 mg tablet Take 1 tablet by mouth once daily. isosorbide mononitrate ER (IMDUR) 30 mg 24 hr tablet Take 1 tablet by mouth once daily. atorvastatin (LIPITOR) 80 mg tablet Take 1 tablet by mouth once daily. nitroglycerin sublingual (NITROQUICK) 0.4 mg SL tablet Dissolve 1 tablet under the tongue as needed. FOR CHEST PAIN. IF NO RELIEF CALL 911 metoprolol succinate ER (TOPROL XL) 50 mg 24 hr tablet Take 1 tablet by mouth once daily. loratadine (CLARITIN) 10 mg tablet Take 1 tablet by mouth once daily. pregabalin (LYRICA) 100 mg capsule Take 1 capsule by mouth three times daily. albuterol HFA (PROAIR HFA) 90 mcg/actuation inhaler Inhale 2 Puffs as instructed every 4 hours as needed. alendronate (FOSAMAX) 70 mg tablet Take 1 tablet by mouth once each week. Take with a full glass of water, on an empty stomach; do NOT lie down for 30minutes. promethazine (PHENERGAN) 25 mg tablet Take 1 tablet by mouth four times daily as needed for Nausea/Vomiting. pantoprazole DR (PROTONIX) 40 mg tablet Take 1 tablet by mouth once daily. (Patient taking differently: Take 40 mg by mouth as needed.) morphine SR (MS CONTIN) 15 mg 12 hr tablet Take 15 mg by mouth twice daily as needed. aspirin 325 mg tablet Take 325 mg by mouth one time only. hydrOXYzine HCl (ATARAX) 50 mg tablet Take 1 tablet by mouth three times daily as needed for Anxiety. pantoprazole DR (PROTONIX) 40 mg tablet TAKE 1 TABLET BY MOUTH EVERY DAY Hydrochlorothiazide 12.5 mg capsule Take 1 capsule by mouth once daily. fluticasone-vilanterol (BREO ELLIPTA) 200-25 mcg/dose inhaler Inhale 1 Inhalation as instructed once daily. Inhale one puff once daily. DO NOT CLICK OPEN UNTIL READY FOR DOSE No current facility-administered medications for this visit. . ALLERGIES: ALLERGIES Allergen Reactions - Latex Rash - Darvocet A500 [Prop* Itching - Darvocet-N 100 [Pro* Itching - Dilaudid [Hydromorp* Other: See Comments Burning sensation over entire body - Ees [Other] - Heparin Analogues Hives, Swelling - Keflex [Cephalexin] Swelling, Itching, Shortness of Breath - Levaquin [Levofloxa* Itching - Lisinopril Other: See Comments flushing - Oxycodone Itching - Oxycotin [Oxycodone] Hives, Swelling, Itching - Penicillin Anaphylaxis 4 years old - Percocet [Oxycodone* Itching - Polytrim [Polymyxin* Swelling, Itching - Sulfa (Sulfonamide * Hives - Tegretol [Carbamaze* Mental Status Change - Vibramycin [Doxycyc* Hives, Itching - Vicodin [Hydrocodon* - Adhesive Tape (Elizabeth* Rash, Itching . PAST MEDICAL HISTORY: PAST MEDICAL HISTORY Diagnosis Date - ASHD (arteriosclerotic heart disease) 10/14/2011 - Bandemia 01/29/2018 - Cervical disc disorder 03/13/2011 - Cocaine substance abuse 2003 - COPD (chronic obstructive pulmonary disease) ([facility]) - Degenerative disc disease, cervical 2010 - Depression 2010 - Dysmetabolic syndrome X 01/21/2011 - Erosive esophagitis 09/04/2014 - Esophageal reflux Gastroesophageal reflux - Essential hypertension, benign 09/09/2010 no meds currently 03/26 - Fibrocystic breast changes, bilateral 01/28/2017 - Hyperlipidemia LDL goal < 130 2010 - Hyperlipidemia LDL goal < 70 10/14/2011 - Migraine headache 01/23/2012 - Non morbid obesity due to excess calories 08/29/2016 - Obstructive sleep apnea - Osteoporosis 03/13/2011 - Peptic ulcer, unspecified site, unspecified as acute or chronic, without mention of hemorrhage, perforation, or obstruction Peptic ulcer disease - Tobacco abuse 01/23/2012 - Trigeminal neuralgia 12/29/2013 - Trigeminal neuralgia of right side of face 05/03/2015 - Vitamin D deficiency 03/19/2011 . PAST SURGICAL HISTORY: PAST SURGICAL HISTORY Procedure Laterality Date - ANTERIOR INTERBODY FUSION, CERVICAL 1992 - APPENDECTOMY - CHOLECYSTECTOMY - COLONOSCOP W/ OR W/O [facility] SPEC 04/30/2010 Dr. Rayshawn Shrestha - COLONOSCOP W/ OR W/O [facility] SPEC 08/10/13 Colonoscopy - EGD W/O OR W/BRUSH/WASH 08/10/13 EGD - LAPAROSCOPY, SURGICAL, ESOPHAGOGAST 01-25-10 LAP KAMILA - LEFT HEART CATH,PERCUTANEOUS 12/17/11 Cardiac cath, L heart, see scanned report - Tonsilectomy - TUBAL LIGATION, - XR CERVICAL FUSION OR 1998 posterior fusion . FAMILY HISTORY: FAMILY HISTORY Problem Relation Age of Onset - Heart Father 35 - Cancer Father - Cancer Mother - Breast Cancer Paternal Grandmother - Breast Cancer Paternal Aunt - Cancer Maternal Uncle LUNG - Heart Maternal Grandmother . SOCIAL HISTORY:Social History Marital status: Spouse name: Years of education: Number of children: 3 Occupational History Occupation Employer Comment DISABLED Social History Main Topics Smoking status: Current Every Day Smoker Packs/day: 0.25 Years: 45.00 Types: Cigarettes Smokeless status: Never Used Comment: trying to quit Alcohol use: No Drug use: No Comment: none since 06/2005/cocaine abuse Sexual activity: Not Currently Partners with: Male .REVIEW OF SYSTEMS: CONSTITUTIONAL: No fevers, chills, nightsweats, unintended weight loss HEENT: Denies frequent or severe heaches, nasal congestion/sinus symptoms, problematic allergy problems. EYES: No diplopia or blurry vision. CARDIOVASCULAR: No chest pain, dyspnea, palpitations, orthopnea, PND, ankle edema. PULM: No dyspnea, unexplained cough. GI: No dysphagia/odynophagia, problematic reflux, constipation, diarrhea, changes in stool habits, hematochezia, melena. : No new urinary complaints, including dysuria, gross hematuria or pyuria. NEURO: No new balance problems, peripheral weakness/paresthesias or numbness of concern. MUSC-SKEL: No new joint pain, swelling, or erythema. PSY: No concerns regarding depression, anxiety or panic. INTEGUMENTARY: No new skin changes (rash, new or changing mole, new growth) PHYSICAL EXAMINATION: 57-year-old well-nourished well-developed female in no Distress BP 148/87 Temp 98.2 Ht 5' 2 (1.58m) Wt 180 lb (81.6kg) BMI 32.91 kg/(m2). O2 saturation 94% on room air HEENT: Head is normocephalic, atraumatic. Sclerae white, conjunctivae pink. PEERL. EOMs are intact. Oropharynx is benign. patient has full dentures LYMPHATICS: There is no palpable adenopathy in the neck, supraclavicular region, axillae, or groin. LUNGS: Lungs are clear to percussion and auscultation. increasing respiratory phase, no wheezing HEART: Heart is normal without murmurs, gallops, or rubs. BREASTS: Without skin dimpling, nipple discharge or masses. ABDOMEN: Soft and nontender without organomegaly. No masses can be palpated. EXTREMITIES: Are without edema. NEUROLOGIC: Exam is physiologic LABORATORY DATA: Component Latest Ref Rng AND Units 02/02/2018 WBC, [place] 3.70 - 11.00 k/uL 10.23 RBC, [place] 3.90 - 5.20 m/uL 5.16 Hemoglobin, [place] 11.5 - 15.5 g/dL 15.3 Hematocrit, [place] 36.0 - 46.0 % 44.0 MCV, [place] 80.0 - 100.0 fL 85.3 MCH, [place] 26.0 - 34.0 pg 29.7 MCHC, [place] 30.5 - 36.0 g/dL 34.8 RDW, [place] 11.5 - 15.0 % 13.3 Platelet Cnt, [place] 150 - 400 k/uL 391 MPV, [place] 9.0 - 12.7 fL 8.5 (L) Absol Gran Count 1.45 - 7.50 k/uL 6.46 Peripheral blood smear: Leukocytosis, neutrophilia, platelet is adequate without clumping or clotting. Component Latest Ref Rng AND Units 01/07/2018 Protein, Total 6.3 - 8.0 g/dL 7.7 Albumin 3.9 - 4.9 g/dL 4.6 Calcium 8.5 - 10.2 mg/dL 9.6 Bilirubin, Total 0.2 - 1.3 mg/dL 0.3 Alkaline Phosphatase 32 - 117 U/L 81 AST 13 - 35 U/L 20 Glucose 74 - 99 mg/dL 97 BUN 7 - 21 mg/dL 13 Creatinine 0.58 - 0.96 mg/dL 0.82 Sodium 136 - 144 mmol/L 142 Potassium 3.7 - 5.1 mmol/L 4.1 Chloride 97 - 105 mmol/L 101 CO2 22 - 30 mmol/L 28 Anion Gap 9 - 18 mmol/L 13 ALT 7 - 38 U/L 20 eGFR- >60 eGFR-All Other Races . >60 Component Latest Ref Rng AND Units 02/02/2018 Carboxyhemoglobin, Venous <2.0 % 4.6 (H) LD 135 - 214 U/L 102 (L) ASSESSMENT: 57-year-old female with chronic leukocytosis and secondary polycythemia, both probably related to her history of tobacco abuse and COPD. Patient is at risk for lung cancer given her history of smoking and family history of cancer. PLAN: 1) chronic leukocytosis (Neutrophilia)- no evidence of active infection or chronic inflammation now - No further workup or evaluation is needed at this time. 2) secondary polycythemia versus polycythemia rubra vera - Check erythropoietin level, carboxy hemoglobin and LDH today - If her erythropoietin level is less than 5, then get JAK2 mutation to r/o polycythemia vera - Encouraged patient to stop smoking follow-up with Dr. River - Repeat CBC with office visit in one month. 3) lung cancer screening - Low-dose CT chest wo contrast for lung cancer screening - Smoking cessation and counseling. I spent 60 minutes in the visit, with more than 50% of the total [id number] time of the visit in counseling / coordination of care. Gisell Silva MD. ELECTRONICALLY SIGNED CNOVSP Observed: 02/02/2018 Status: COMPLETED Source: [place] 2:00 PM [facility] REPOSITORY Visit (SP) Office (HEMAWS) BRITNEY MARIE ([id number]) 1960 [address] [facility] Date Time Provider Department 02/02/18 2:00 PM GISELL SILVA During your visit today, we recorded the following information about you: Temperature Blood pressure Weight Height 98.2 degrees 148/87 81.6 kg 1.575 m Danielle Bonilla LPN, LPN 02/02/2018 2:26 PM Signed New pt. Discuss recent DX: Leukocytosis TAYLOR Kingsley MD 02/02/2018 2:[address] River about smoking cessation. Gisell Silva MD 02/03/2018 9:48 AM Signed Hematology and Medical Oncology PATIENT NAME: Britney Marie. CLINIC NO: [id number]. ATTENDING PHYSICIAN: Gisell Silva MD. DATE OF SERVICE:02/02/2018. DIAGNOSIS: leukocytosis ( bandemia ) and secondary polycythemia Consultation requested by for an opinion regarding Leukocytosis and polycythemia. My final recommendations will be communicated back to the requesting physician by way of shared Medical record or letter to requesting physician via US mail. PERFORMANCE STATUS:80% HPI: This is a 57-year-old female with long history of tobacco addiction, 48 hbfs-[id number] smoking history currently still smoking 3/4 - half packs cigarette per day. She has history of COPD/asthma, chronic headaches, nausea, hypertension, and generalized anxiety disorder. The patient has no fever, chills but has history of night sweats. Patient has no weight loss or anorexia. She has no jaundice, early satiety or pruritus. She has chronic headaches almost daily with nausea but no vomiting. Also complaining of chronic fatigue and dyspnea and exertion. Patient has chronic cough which is unchanged and characteristic. Always with clear sputum, no hemoptysis. She has no hoarseness or dysphagia. Patient has no visual changes, or neuropathy. She had a colonoscopy and EGD 5 years ago for cancer screening. Results of her colonoscopy was normal. She also had a bilateral mammogram recently which were normal. CT abdomen and pelvis last year for evaluation of abdominal hernia which showed no evidence of malignancy. She has a possible hemangioma in the liver. She has a chronic leukocytosis (neutrophilia) along with polycythemia last month with an elevated hemoglobin and platelet count. her sedimentation rate and C reactive protein levels were not significantly elevated. There is no recent illness in the family. Family history positive for leukemia and breast cancer. She is here today for evaluation of leukocytosis and possible polycythemia. MEDICATIONS: Current Outpatient Prescriptions: escitalopram oxalate (LEXAPRO) 10 mg tablet Take 1 tablet by mouth once daily. isosorbide mononitrate ER (IMDUR) 30 mg 24 hr tablet Take 1 tablet by mouth once daily. atorvastatin (LIPITOR) 80 mg tablet Take 1 tablet by mouth once daily. nitroglycerin sublingual (NITROQUICK) 0.4 mg SL tablet Dissolve 1 tablet under the tongue as needed. FOR CHEST PAIN. IF NO RELIEF CALL 911 metoprolol succinate ER (TOPROL XL) 50 mg 24 hr tablet Take 1 tablet by mouth once daily. loratadine (CLARITIN) 10 mg tablet Take 1 tablet by mouth once daily. pregabalin (LYRICA) 100 mg capsule Take 1 capsule by mouth three times daily. albuterol HFA (PROAIR HFA) 90 mcg/actuation inhaler Inhale 2 Puffs as instructed every 4 hours as needed. alendronate (FOSAMAX) 70 mg tablet Take 1 tablet by mouth once each week. Take with a full glass of water, on an empty stomach; do NOT lie down for 30minutes. promethazine (PHENERGAN) 25 mg tablet Take 1 tablet by mouth four times daily as needed for Nausea/Vomiting. pantoprazole DR (PROTONIX) 40 mg tablet Take 1 tablet by mouth once daily. (Patient taking differently: Take 40 mg by mouth as needed.) morphine SR (MS CONTIN) 15 mg 12 hr tablet Take 15 mg by mouth twice daily as needed. aspirin 325 mg tablet Take 325 mg by mouth one time only. hydrOXYzine HCl (ATARAX) 50 mg tablet Take 1 tablet by mouth three times daily as needed for Anxiety. pantoprazole DR (PROTONIX) 40 mg tablet TAKE 1 TABLET BY MOUTH EVERY DAY Hydrochlorothiazide 12.5 mg capsule Take 1 capsule by mouth once daily. fluticasone-vilanterol (BREO ELLIPTA) 200-25 mcg/dose inhaler Inhale 1 Inhalation as instructed once daily. Inhale one puff once daily. DO NOT CLICK OPEN UNTIL READY FOR DOSE No current facility-administered medications for this visit. . ALLERGIES: ALLERGIES Allergen Reactions - Latex Rash - Darvocet A500 [Prop* Itching - Darvocet-N 100 [Pro* Itching - Dilaudid [Hydromorp* Other: See Comments Burning sensation over entire body - Ees [Other] - Heparin Analogues Hives, Swelling - Keflex [Cephalexin] Swelling, Itching, Shortness of Breath - Levaquin [Levofloxa* Itching - Lisinopril Other: See Comments flushing - Oxycodone Itching - Oxycotin [Oxycodone] Hives, Swelling, Itching - Penicillin Anaphylaxis 4 years old - Percocet [Oxycodone* Itching - Polytrim [Polymyxin* Swelling, Itching - Sulfa (Sulfonamide * Hives - Tegretol [Carbamaze* Mental Status Change - Vibramycin [Doxycyc* Hives, Itching - Vicodin [Hydrocodon* - Adhesive Tape (Elizabeth* Rash, Itching . PAST MEDICAL HISTORY: PAST MEDICAL HISTORY Diagnosis Date - ASHD (arteriosclerotic heart disease) 10/14/2011 - Bandemia 01/29/2018 - Cervical disc disorder 03/13/2011 - Cocaine substance abuse 2003 - COPD (chronic obstructive pulmonary disease) ([facility]) - Degenerative disc disease, cervical 2010 - Depression 2010 - Dysmetabolic syndrome X 01/21/2011 - Erosive esophagitis 09/04/2014 - Esophageal reflux Gastroesophageal reflux - Essential hypertension, benign 09/09/2010 no meds currently 03/26 - Fibrocystic breast changes, bilateral 01/28/2017 - Hyperlipidemia LDL goal ANDlt; 130 2010 - Hyperlipidemia LDL goal ANDlt; 70 10/14/2011 - Migraine headache 01/23/2012 - Non morbid obesity due to excess calories 08/29/2016 - Obstructive sleep apnea - Osteoporosis 03/13/2011 - Peptic ulcer, unspecified site, unspecified as acute or chronic, without mention of hemorrhage, perforation, or obstruction Peptic ulcer disease - Tobacco abuse 01/23/2012 - Trigeminal neuralgia 12/29/2013 - Trigeminal neuralgia of right side of face 05/03/2015 - Vitamin D deficiency 03/19/2011 . PAST SURGICAL HISTORY: PAST SURGICAL HISTORY Procedure Laterality Date - ANTERIOR INTERBODY FUSION, CERVICAL 1992 - APPENDECTOMY - CHOLECYSTECTOMY - COLONOSCOP W/ OR W/O [facility] SPEC 04/30/2010 Dr. Rayshawn Shrestha - COLONOSCOP W/ OR W/O [facility] SPEC 08/10/13 Colonoscopy - EGD W/O OR W/BRUSH/WASH 08/10/13 EGD - LAPAROSCOPY, SURGICAL, ESOPHAGOGAST 01-25-10 LAP KAMILA - LEFT HEART CATH,PERCUTANEOUS 12/17/11 Cardiac cath, L heart, see scanned report - Tonsilectomy - TUBAL LIGATION, - XR CERVICAL FUSION OR 1997 posterior fusion . FAMILY HISTORY: FAMILY HISTORY Problem Relation Age of Onset - Heart Father 35 - Cancer Father - Cancer Mother - Breast Cancer Paternal Grandmother - Breast Cancer Paternal Aunt - Cancer Maternal Uncle LUNG - Heart Maternal Grandmother . SOCIAL HISTORY:Social History Marital status: Spouse name: Years of education: Number of children: 3 Occupational History Occupation Employer Comment DISABLED Social History Main Topics Smoking status: Current Every Day Smoker Packs/day: 0.25 Years: 45.00 Types: Cigarettes Smokeless status: Never Used Comment: trying to quit Alcohol use: No Drug use: No Comment: none since 06/2005/cocaine abuse Sexual activity: Not Currently Partners with: Male .REVIEW OF SYSTEMS: CONSTITUTIONAL: No fevers, chills, nightsweats, unintended weight loss HEENT: Denies frequent or severe heaches, nasal congestion/sinus symptoms, problematic allergy problems. EYES: No diplopia or blurry vision. CARDIOVASCULAR: No chest pain, dyspnea, palpitations, orthopnea, PND, ankle edema. PULM: No dyspnea, unexplained cough. GI: No dysphagia/odynophagia, problematic reflux, constipation, diarrhea, changes in stool habits, hematochezia, melena. : No new urinary complaints, including dysuria, gross hematuria or pyuria. NEURO: No new balance problems, peripheral weakness/paresthesias or numbness of concern. MUSC-SKEL: No new joint pain, swelling, or erythema. PSY: No concerns regarding depression, anxiety or panic. INTEGUMENTARY: No new skin changes (rash, new or changing mole, new growth) PHYSICAL EXAMINATION: 57-year-old well-nourished well-developed female in no Distress BP 148/87 Temp 98.2 Ht 5' 2ANDquot; (1.58m) Wt 180 lb (81.6kg) BMI 32.91 kg/(m2). O2 saturation 94% on room air HEENT: Head is normocephalic, atraumatic. Sclerae white, conjunctivae pink. PEERL. EOMs are intact. Oropharynx is benign. patient has full dentures LYMPHATICS: There is no palpable adenopathy in the neck, supraclavicular region, axillae, or groin. LUNGS: Lungs are clear to percussion and auscultation. increasing respiratory phase, no wheezing HEART: Heart is normal without murmurs, gallops, or rubs. BREASTS: Without skin dimpling, nipple discharge or masses. ABDOMEN: Soft and nontender without organomegaly. No masses can be palpated. EXTREMITIES: Are without edema. NEUROLOGIC: Exam is physiologic LABORATORY DATA: Component Latest Ref Rng ANDamp; Units 02/02/2018 WBC, Maya 3.70 - 11.00 k/uL 10.23 RBC, Maya 3.90 - 5.20 m/uL 5.16 Hemoglobin, Maya 11.5 - 15.5 g/dL 15.3 Hematocrit, [place] 36.0 - 46.0 % 44.0 MCV, [place] 80.0 - 100.0 fL 85.3 MCH, Maya 26.0 - 34.0 pg 29.7 MCHC, [place] 30.5 - 36.0 g/dL 34.8 RDW, [place] 11.5 - 15.0 % 13.3 Platelet Cnt, [place] 150 - 400 k/uL 391 MPV, [place] 9.0 - 12.7 fL 8.5 (L) Absol Gran Count 1.45 - 7.50 k/uL 6.46 Peripheral blood smear: Leukocytosis, neutrophilia, platelet is adequate without clumping or clotting. Component Latest Ref Rng ANDamp; Units 01/07/2018 Protein, Total 6.3 - 8.0 g/dL 7.7 Albumin 3.9 - 4.9 g/dL 4.6 Calcium 8.5 - 10.2 mg/dL 9.6 Bilirubin, Total 0.2 - 1.3 mg/dL 0.3 Alkaline Phosphatase 32 - 117 U/L 81 AST 13 - 35 U/L 20 Glucose 74 - 99 mg/dL 97 BUN 7 - 21 mg/dL 13 Creatinine 0.58 - 0.96 mg/dL 0.82 Sodium 136 - 144 mmol/L 142 Potassium 3.7 - 5.1 mmol/L 4.1 Chloride 97 - 105 mmol/L 101 CO2 22 - 30 mmol/L 28 Anion Gap 9 - 18 mmol/L 13 ALT 7 - 38 U/L 20 eGFR- ANDgt;60 eGFR-All Other Races . ANDgt;60 Component Latest Ref Rng ANDamp; Units 02/02/2018 Carboxyhemoglobin, Venous ANDlt;2.0 % 4.6 (H) LD 135 - 214 U/L 102 (L) ASSESSMENT: 57-year-old female with chronic leukocytosis and secondary polycythemia, both probably related to her history of tobacco abuse and COPD. Patient is at risk for lung cancer given her history of smoking and family history of cancer. PLAN: 1) chronic leukocytosis (Neutrophilia)- no evidence of active infection or chronic inflammation now - No further workup or evaluation is needed at this time. 2) secondary polycythemia versus polycythemia rubra vera - Check erythropoietin level, carboxy hemoglobin and LDH today - If her erythropoietin level is less than 5, then get JAK2 mutation to r/o polycythemia vera - Encouraged patient to stop smoking follow-up with Dr. River - Repeat CBC with office visit in one month. 3) lung cancer screening - Low-dose CT chest wo contrast for lung cancer screening - Smoking cessation and counseling. I spent 60 minutes in the visit, with more than 50% of the total [id number]-[id number] time of the visit in counseling / coordination of care. Gisell Silva MD. ELECTRONICALLY SIGNED Referring Provider: MARE RIVER III [[id number]] Allergies As of Date: 02/02/2018 Noted Allergy Reaction LATEX 10/21/2013 2 - Rash DARVOCET A500 (PROPOXYPHENE N-CORRIE*08/05/2017 9 - Itching DARVOCET-N 100 (PROPOXYPHENE N-AC*12/11/2009 9 - Itching DILAUDID (HYDROMORPHONE HCL) 08/05/2017 14 - Other: See Comments Comments: Burning sensation over entire body EES [Other] 11/24/2005 HEPARIN ANALOGUES 06/09/2013 4 - Hives 7 - Swelling KEFLEX (CEPHALEXIN) 08/05/2017 7 - Swelling 9 - Itching 12 - Shortness of Breath LEVAQUIN (LEVOFLOXACIN) 11/10/2013 9 - Itching LISINOPRIL 01/17/2015 14 - Other: See Comments Comments: flushing OXYCODONE 08/05/2017 9 - Itching OXYCOTIN (OXYCODONE) 12/11/2009 4 - Hives 7 - Swelling 9 - Itching PENICILLIN 08/05/2017 10 - Anaphylaxis Comments: 4 years old PERCOCET (OXYCODONE-ACETAMINOPHEN)12/11/2009 9 - Itching POLYTRIM (POLYMYXIN B SULF-TRIMET*03/29/2015 7 - Swelling 9 - Itching SULFA (SULFONAMIDE ANTIBIOTICS) 11/24/2005 4 - Hives TEGRETOL (CARBAMAZEPINE) 06/04/2015 1 - Mental Status Change VIBRAMYCIN (DOXYCYCLINE CALCIUM) 08/05/2017 4 - Hives 9 - Itching VICODIN (HYDROCODONE-ACETAMINOPHE*11/24/2005 ADHESIVE TAPE (ROSINS) 03/03/2012 2 - Rash 9 - Itching Date Reviewed: 02/02/2018 Reviewed by: Danielle Stock ([facility]) TAYLOR Bonilla - Fully Assessed Reason for Visit: New Patient [172] Primary Visit Diagnosis:Tobacco abuse [Z72.0] Other Visit Diagnoses:Mild persistent asthma without complication [J45.30] Secondary polycythemia [D75.1] Bandemia [D72.825] Order(s):ERYTHROPOIETIN/EPO [SQEPO] Order #: [id number] FUTURE CARBOXYHEMOGLOBIN PAULO [SQCO] Order #: [id number] FUTURE LD LACTATE DEHYDRO [SQLD6] Order #: [id number] FUTURE Level of Service: NEW PATIENT VISIT LEVEL 5 [[id number]] Disposition: Return in about 4 weeks (around 03/02/2018). Follow-up and Disposition History Recorded Prescriptions as of 02/02/2018 Sig: ESCITALOPRAM 10 MG TABLET Take 1 tablet by mouth once d* ISOSORBIDE MONONITRATE ER 30 * Take 1 tablet by mouth once d* ATORVASTATIN 80 MG TABLET Take 1 tablet by mouth once d* NITROGLYCERIN 0.4 MG SUBLINGU* Dissolve 1 tablet under the t* METOPROLOL SUCCINATE ER 50 MG* Take 1 tablet by mouth once d* LORATADINE 10 MG TABLET Take 1 tablet by mouth once d* PREGABALIN 100 MG CAPSULE Take 1 capsule by mouth three* ALBUTEROL SULFATE HFA 90 MCG/* Inhale 2 Puffs as instructed * ALENDRONATE 70 MG TABLET Take 1 tablet by mouth once e* PROMETHAZINE 25 MG TABLET Take 1 tablet by mouth four t* PANTOPRAZOLE 40 MG TABLET,DEL* Take 1 tablet by mouth once d* Patient taking differently: Take 40 mg by mouth as needed. MORPHINE ER 15 MG TABLET,EXTE* Take 15 mg by mouth twice octavio* ASPIRIN 325 MG TABLET Take 325 mg by mouth one time* HYDROXYZINE HCL 50 MG TABLET Take 1 tablet by mouth three * PANTOPRAZOLE 40 MG TABLET,DEL* TAKE 1 TABLET BY MOUTH EVERY * HYDROCHLOROTHIAZIDE 12.5 MG C* Take 1 capsule by mouth once * FLUTICASONE 200 MCG-VILANTERO* Inhale 1 Inhalation as instru* Medication notes this encounter LORATADINE 10 MG TABLET >> Danielle Bonilla LPN, LPN 02/02/2018 2:06 PM >> [facility]ANE [facility] Feb 02, 2018 2:06 PM Taking PRN PREGABALIN 100 MG CAPSULE >> Danielle Bonilla LPN, LPN 02/02/2018 2:07 PM >> DANE [facility] Feb 02, 2018 2:07 PM As needed ASPIRIN 325 MG TABLET >> Danielle Bonilla LPN, LPN 02/02/2018 2:04 PM >> DANE [facility] Feb 02, 2018 2:04 PM discontinued HYDROXYZINE HCL 50 MG TABLET >> Danielle Bonilla LPN, LPN 02/02/2018 2:06 PM >> DANE [facility] Feb 02, 2018 2:06 PM discontinued PANTOPRAZOLE 40 MG TABLET,DELAYED RELEASE >> Danielle Bonilla LPN, LPN 02/02/2018 2:07 PM >> DANE [facility] Feb 02, 2018 2:07 PM duplicate HYDROCHLOROTHIAZIDE 12.5 MG CAPSULE >> Danielle Bonilla LPN, LPN 02/02/2018 2:06 PM >> DANE [facility] Feb 02, 2018 2:06 PM discontinued FLUTICASONE 200 MCG-VILANTEROL 25 MCG/DOSE POWDER FOR INHALATION >> Danielle Bonilla LPN, INVENTORY ASSISTANT 02/02/2018 2:05 PM >> DANIELLE BONILLA Feb 02, 2018 2:05 PM Not using Problem List As Of Date 02/02/2018 Noted Resolved Cocaine substance abuse [F14.10] 09/04/2014 Essential hypertension, benign [I10] INVALID FOR* Priority: F More... Degenerative disc disease, cervical [M50.30] INVALID FOR* Priority: D More... Depression [F32.9] INVALID FOR* Priority: E More... Dysmetabolic syndrome X [E88.81] INVALID FOR* Osteoporosis [M81.0] INVALID FOR* Cervical disc disorder [M50.90] INVALID FOR* Vitamin D deficiency [E55.9] INVALID FOR* Hyperlipidemia with target LDL less than 70 [E7*INVALID FOR* Priority: G More... ASHD (arteriosclerotic heart disease) [I25.10] INVALID FOR* More... Chest pain [R07.9] INVALID FOR*09/04/2014 Priority: B More... Tobacco abuse [Z72.0] INVALID FOR* Priority: I More... Tobacco abuse counseling [Z71.6] INVALID FOR* Migraine headache [G43.909] INVALID FOR* Priority: H More... SUMMARY [V999.95] INVALID FOR* Priority: A More... Asthma [J45.909] INVALID FOR* Priority: C More... Elevated gastrin level [E16.4] INVALID FOR* Flushing [R23.2] INVALID FOR* Trigeminal neuralgia [G50.0] INVALID FOR* Erosive esophagitis [K22.10] INVALID FOR* Spontaneous ecchymoses [R23.3] INVALID FOR* Lumbar back pain with radiculopathy affecting l*INVALID FOR* Arteriosclerosis of carotid artery [I65.29] INVALID FOR* MELSYSA (obstructive sleep apnea) [G47.33] INVALID FOR* Trigeminal neuralgia of right side of face [G50*INVALID FOR* Obesity (BMI 30-39.9) [E66.9] INVALID FOR* Grief [F43.20] INVALID FOR* Other seasonal allergic rhinitis [J30.2] INVALID FOR* Anxiety and depression [F41.8] INVALID FOR* Sense of smell altered [R43.9] INVALID FOR* Nonintractable headache [R51] INVALID FOR* Non morbid obesity due to excess calories [E66.*INVALID FOR* Fibrocystic breast changes, bilateral [N60.11, *INVALID FOR* Orthostatic hypotension [I95.1] INVALID FOR* Moderate episode of recurrent major depressive *INVALID FOR* 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 River about smoking cessation. Visit Notes: >> TAYLOR Kingsley Lpn Feb 02, 2018 2:03 PM Status: Signed New pt. Discuss recent DX: Leukocytosis Danielle Bonilla LPN Encounter Status:Closed by GISELL SILVA MD on 02/03/18 MAAY ABS GR + CBC Collected: 02/02/2018 Status: F Source: [place] 1:37 PM [facility] REPOSITORY TYPE CODE TESTS RESULT OUT OF REFERENCE UNITS RANGE LAB WWBC 3.70-11.00 k/uL Maya WBC 10.23 LAB WRBC 3.90-5.20 m/uL Maya RBC 5.16 LAB WHGB 11.5-15.5 g/dL [place] Hemoglobin 15.3 LAB WHCT 36.0-46.0 % Maya Hematocrit 44.0 LAB WMCV 80.0-100.0 fL [place] MCV 85.3 LAB WMCH 26.0-34.0 pg Maya MCH 29.7 LAB WMCHC 30.5-36.0 g/dL Maya MCHC 34.8 LAB WRDW 11.5-15.0 % Maya RDW 13.3 LAB WPLT 150-400 k/uL [place] Platelet Cnt 391 LAB WMPV 9.0-12.7 fL Low [place] MPV 8.5 Result Comment: Test performed at: [facility], [address] [place] [address] Rd[address] [place] [address]. LAB ABGRAN 1.45-7.50 k/uL Absol Gran 6.46 Count CARBOXYHEMOGLOBIN,PAULO Collected: Status: F Source: [place] 02/02/2018 1:37 PM [facility] REPOSITORY TYPE CODE TESTS RESULT OUT OF RANGE REFERENCE UNITS LAB CO <2.0 % High 4.6 Carboxyhemog lobin,Paulo Performed By: #### CO, LD6, EPO #### [facility] [employer] [address] [place] [id number] LD Collected: 02/02/2018 Status: F Source: [facility] 1:37 PM MAIN CAMPUS REPOSITORY TYPE CODE TESTS RESULT OUT OF RANGE REFERENCE UNITS LAB LD 135-214 U/L Low LD 102 Performed By: #### CO, LD6, EPO #### [facility] [employer] [address] [place] [id number] EPO Collected: 02/02/2018 Status: F Source: [place] 1:37 PM [facility] REPOSITORY TYPE CODE TESTS RESULT OUT OF RANGE REFERENCE UNITS LAB EPO 4.7-28.6 MIU/mL EPO 9.1 Result Comment: Test analyzed by the Hussain DxI method. Performed By: #### CO, LD6, EPO #### [facility] [employer] [address] [place] [id number] PROGRESS Observed: 01/29/2018 Status: COMPLETED Source: [place] 6:24 PM [facility] REPOSITORY HNO ID: [id number] Author: Mare River III Service: (none) Author Type: Physician Type: Progress Notes Filed: 01/29/2018 6:24 PM Note Text: Effie, The white blood count remains elevated. I recommend an appointment with our bench molder Dr Silva to evaluate you, especially because you do not have any focal symptoms of infection and your mother had leukemia. My staff will contact you for an appointment. Mare River III MD CBC AND DIFFERENTIAL Collected: 01/28/2018 Status: F Source: [place] 4:51 PM [facility] REPOSITORY TYPE CODE TESTS RESULT OUT OF REFERENCE UNITS RANGE LAB WBC 3.70-11.00 k/uL WBC High 15.32 LAB RBC 3.90-5.20 m/uL RBC 5.12 LAB HGB 11.5-15.5 g/dL Hemoglobin 15.1 LAB HCT 36.0-46.0 % Hematocrit 45.3 LAB MCV 80.0-100.0 fL MCV 88.5 LAB MCH 26.0-34.0 pG MCH 29.5 LAB MCHC 30.5-36.0 g/dL MCHC 33.3 LAB RDWCV 11.5-15.0 % RDW-CV 13.2 LAB PLTCT 150-400 k/uL Platelet Count 371 LAB MPV 9.0-12.7 fL MPV 9.7 LAB ANEUT % Neut% 69.3 LAB AANEUT 1.45-7.50 k/uL Abs Neut High 10.60 LAB ALYMP % Lymph% 21.7 LAB AALYMP 1.00-4.00 k/uL Abs Lymph 3.33 LAB AMONO % [place]% 7.0 LAB [place] <0.87 k/uL Abs [place] High 1.08 LAB AEOS % Eosin% 1.6 LAB AAEOS <0.46 k/uL Abs Eosin 0.25 LAB ABASO % Baso% 0.4 LAB AABASO <0.11 k/uL Abs Baso 0.06 LAB AUNRBC 0 /100 WBC NRBCs 0.0 LAB ABNRBC <0.01 k/uL Absolute nRBC <0.01 LAB DTYP DTYPE Auto Diff Performed By: #### CBCDIF #### [facility] [address] [place], [place] [address] PROGRESS Observed: 01/28/2018 Status: COMPLETED Source: [place] 4:18 PM [facility] REPOSITORY HNO ID: [id number] Author: Mare River III Service: (none) Author Type: Physician Type: Progress Notes Filed: 01/28/2018 6:32 PM Note Text: SUBJECTIVE: This is a 57 year old female that is here today for 1. episode of chest pressure with variable BP. Heart cath showed no change from previous=mild arteriosclerosis not requiring intervention 2. increase anxiety violeta since son is still living with her and he is smoking marijuana. She wants to try Lexapro to control anxiety. She is also hoping to move out of her home to live on a vuong. 3. ER visit 01/15/18 report reviewed: WBC 22.7, 84 N, 10L. UA neg. She has episodic generalized aching, warm flushes, sweating. No cough, dysuria, frequency, abd pain, change in BM. Chart review also shows that she has had elevated platelets. Over the last month she has had a gradual reduction in her white blood cell count. She is not anemic and does not have elevated red blood cell count. Her mother had leukemia PAST MEDICAL HISTORY Diagnosis Date - ASHD (arteriosclerotic heart disease) 10/14/2011 - Cervical disc disorder 03/13/2011 - Cocaine substance abuse 2003 - COPD (chronic obstructive pulmonary disease) (HCC) - Degenerative disc disease, cervical 2010 - Depression 2010 - Dysmetabolic syndrome X 01/21/2011 - Erosive esophagitis 09/04/2014 - Esophageal reflux Gastroesophageal reflux - Essential hypertension, benign 09/09/2010 no meds currently 03/26 - Fibrocystic breast changes, bilateral 01/28/2017 - Hyperlipidemia LDL goal < 130 2010 - Hyperlipidemia LDL goal < 70 10/14/2011 - Migraine headache 01/23/2012 - Non morbid obesity due to excess calories 08/29/2016 - Obstructive sleep apnea - Osteoporosis 03/13/2011 - Peptic ulcer, unspecified site, unspecified as acute or chronic, without mention of hemorrhage, perforation, or obstruction Peptic ulcer disease - Tobacco abuse 01/23/2012 - Trigeminal neuralgia 12/29/2013 - Trigeminal neuralgia of right side of face 05/03/2015 - Vitamin D deficiency 03/19/2011 Current Outpatient Prescriptions on File Prior to Visit: aspirin 325 mg tablet Take 325 mg by mouth one time only. isosorbide mononitrate ER (IMDUR) 30 mg 24 hr tablet Take 1 tablet by mouth once daily. atorvastatin (LIPITOR) 80 mg tablet Take 1 tablet by mouth once daily. nitroglycerin sublingual (NITROQUICK) 0.4 mg SL tablet Dissolve 1 tablet under the tongue as needed. FOR CHEST PAIN. IF NO RELIEF CALL 911 metoprolol succinate ER (TOPROL XL) 50 mg 24 hr tablet Take 1 tablet by mouth once daily. hydrOXYzine HCl (ATARAX) 50 mg tablet Take 1 tablet by mouth three times daily as needed for Anxiety. pantoprazole DR (PROTONIX) 40 mg tablet TAKE 1 TABLET BY MOUTH EVERY DAY loratadine (CLARITIN) 10 mg tablet Take 1 tablet by mouth once daily. Hydrochlorothiazide 12.5 mg capsule Take 1 capsule by mouth once daily. fluticasone-vilanterol (BREO ELLIPTA) 200-25 mcg/dose inhaler Inhale 1 Inhalation as instructed once daily. Inhale one puff once daily. DO NOT CLICK OPEN UNTIL READY FOR DOSE pregabalin (LYRICA) 100 mg capsule Take 1 capsule by mouth three times daily. albuterol HFA (PROAIR HFA) 90 mcg/actuation inhaler Inhale 2 Puffs as instructed every 4 hours as needed. alendronate (FOSAMAX) 70 mg tablet Take 1 tablet by mouth once each week. Take with a full glass of water, on an empty stomach; do NOT lie down for 30minutes. promethazine (PHENERGAN) 25 mg tablet Take 1 tablet by mouth four times daily as needed for Nausea/Vomiting. pantoprazole DR (PROTONIX) 40 mg tablet Take 1 tablet by mouth once daily. (Patient taking differently: Take 40 mg by mouth as needed.) morphine SR (MS CONTIN) 15 mg 12 hr tablet Take 15 mg by mouth twice daily as needed. No current facility-administered medications on file prior to visit. FAMILY HISTORY Problem Relation Age of Onset - Heart Father 35 - Cancer Father - Cancer Mother - Breast Cancer Paternal Grandmother - Breast Cancer Paternal Aunt - Cancer Maternal Uncle LUNG - Heart Maternal Grandmother Social History Substance Use Topics - Smoking status: Current Every Day Smoker Packs/day: 0.25 Years: 45.00 Types: Cigarettes - Smokeless tobacco: Never Used Comment: trying to quit - Alcohol use No BP 122/83 Pulse 94 Resp 18 Wt 82.1 kg (181 lb) BMI 33.11 kg/m2 . OBJECTIVE: APPEARANCE Well appearing, alert, in no acute distress, well-hydrated, well nourished., Appearance: well dressed well groomed, cooperative and pleasant Behavior: good eye contact Speech: fluent and coherent Mood: anxious Affect: appropriate Perceptions: none Thought process: goal directed Thought Content: normal Intelligence level: normal Insight: good Judgment: good Lab Results for BRITNEY MARIE ( ) as of 01/28/2018 16:21 Ref. Range 01/07/2018 10:36 01/18/2018 10:41 01/22/2018 09:55 01/22/2018 10:00 Sodium Latest Ref Range: 136 - 144 mmol/L 142 Potassium Latest Ref Range: 3.7 - 5.1 mmol/L 4.1 Chloride Latest Ref Range: 97 - 105 mmol/L 101 CO2 Latest Ref Range: 22 - 30 mmol/L 28 BUN Latest Ref Range: 7 - 21 mg/dL 13 Creatinine Latest Ref Range: 0.58 - 0.96 mg/dL 0.82 Glucose Latest Ref Range: 74 - 99 mg/dL 97 Protein, Total Latest Ref Range: 6.3 - 8.0 g/dL 7.7 Calcium Latest Ref Range: 8.5 - 10.2 mg/dL 9.6 Albumin Latest Ref Range: 3.9 - 4.9 g/dL 4.6 Bilirubin, Total Latest Ref Range: 0.2 - 1.3 mg/dL 0.3 Alkaline Phosphatase Latest Ref Range: 32 - 117 U/L 81 ALT Latest Ref Range: 7 - 38 U/L 20 17 AST Latest Ref Range: 13 - 35 U/L 20 Anion Gap Latest Ref Range: 9 - 18 mmol/L 13 CK Latest Ref Range: 42 - 196 U/L 65 eGFR- Unknown >60 eGFR-All Other Races Latest Units: . >60 CRP Latest Ref Range: <0.9 mg/dL 1.0 (H) Cholesterol, Total Latest Ref Range: <200 mg/dL 186 Triglyceride Latest Ref Range: <150 mg/dL 147 Fasting Time Latest Units: hrs 12 HDL Cholesterol Latest Ref Range: >39 mg/dL 63 LDL Cholesterol Latest Ref Range: <100 mg/dL 94 VLDL Cholesterol Latest Ref Range: <30 mg/dL 29 TC:HDL Ratio Latest Ref Range: <5.10 2.95 LDL:HDL Ratio Latest Ref Range: <2.54 1.49 Non HDL Cholesterol Latest Ref Range: <130 mg/dL 123 Vitamin D 25 Hydroxy Latest Ref Range: 31.0 - 80.0 ng/mL 27.8 (L) TSH Latest Ref Range: 0.400 - 5.500 uU/mL 1.070 WBC Latest Ref Range: 3.70 - 11.00 k/uL 12.47 (H) 14.47 (H) 13.82 (H) RBC Latest Ref Range: 3.90 - 5.20 m/uL 5.37 (H) 4.93 4.89 Hemoglobin Latest Ref Range: 11.5 - 15.5 g/dL 15.7 (H) 14.2 14.1 Hematocrit Latest Ref Range: 36.0 - 46.0 % 47.5 (H) 43.7 43.0 Platelet Count Latest Ref Range: 150 - 400 k/uL 444 (H) 414 (H) 404 (H) MCV Latest Ref Range: 80.0 - 100.0 fL 88.5 88.6 87.9 MCH Latest Ref Range: 26.0 - 34.0 pG 29.2 28.8 28.8 MCHC Latest Ref Range: 30.5 - 36.0 g/dL 33.1 32.5 32.8 MPV Latest Ref Range: 9.0 - 12.7 fL 9.4 8.9 (L) 9.0 RDW-CV Latest Ref Range: 11.5 - 15.0 % 13.0 13.4 13.4 Neut% Latest Units: % 56.6 Abs Neut (ANC) Latest Ref Range: 1.45 - 7.50 k/uL 7.82 (H) Lymph% Latest Units: % 32.9 Abs Lymph Latest Ref Range: 1.00 - 4.00 k/uL 4.54 (H) [place]% Latest Units: % 7.8 Abs [place] Latest Ref Range: <0.87 k/uL 1.08 (H) Eosin% Latest Units: % 2.2 Abs Eosin Latest Ref Range: <0.46 k/uL 0.31 Baso% Latest Units: % 0.5 Abs Baso Latest Ref Range: <0.11 k/uL 0.07 Nucleated Reds Latest Ref Range: 0 /100 WBC 0.0 Absolute nRBC Latest Ref Range: <0.01 k/uL <0.01 <0.01 <0.01 Diff Type Unknown Auto Diff WSR Latest Ref Range: 0 - 20 mm/hr 15 PT Sec Latest Ref Range: 9.7 - 13.0 sec 9.2 (L) PT INR Latest Ref Range: 0.9 - 1.3 <0.9 (L) ASSESSMENT: anxiety-recurrent ?polycythemia vera?--resolving infection of uncertain origin ? PLAN: CBC with diff healthy diet and regular exercise lexapro 10mg daily return to office 6 wks same other medications ARBEN Lantigua MD, III MD CNOV Observed: 01/28/2018 Status: COMPLETED Source: [place] 3:40 PM [facility] REPOSITORY Office Visit (FAMPWS) CYNTHIABRITNEY Milagro ([id number]) 1960 F [facility] Date Time Provider Department 01/28/18 3:40 PM MARE RIVER IIIWS During your visit today, we recorded the following information about you: Pulse Respiration Blood pressure Weight 94/minute 18/minute 122/83 82.1 kg Mare River III MD 01/28/2018 6:32 PM Signed SUBJECTIVE: This is a 57 year old female that is here today for 1. episode of chest pressure with variable BP. Heart cath showed no change from previous=mild arteriosclerosis not requiring intervention 2. increase anxiety violeta since son is still living with her and he is smoking marijuana. She wants to try Lexapro to control anxiety. She is also hoping to move out of her home to live on a [place]ong. 3. ER visit 01/15/18 report reviewed: WBC 22.7, 84 N, 10L. UA neg. She has episodic generalized aching, warm flushes, sweating. No cough, dysuria, frequency, abd pain, change in BM. Chart review also shows that she has had elevated platelets. Over the last month she has had a gradual reduction in her white blood cell count. She is not anemic and does not have elevated red blood cell count. Her mother had leukemia PAST MEDICAL HISTORY Diagnosis Date - ASHD (arteriosclerotic heart disease) 10/14/2011 - Cervical disc disorder 03/13/2011 - Cocaine substance abuse 2003 - COPD (chronic obstructive pulmonary disease) (HCC) - Degenerative disc disease, cervical 2010 - Depression 2010 - Dysmetabolic syndrome X 01/21/2011 - Erosive esophagitis 09/04/2014 - Esophageal reflux Gastroesophageal reflux - Essential hypertension, benign 09/09/2010 no meds currently 03/26 - Fibrocystic breast changes, bilateral 01/28/2017 - Hyperlipidemia LDL goal ANDlt; 130 2010 - Hyperlipidemia LDL goal ANDlt; 70 10/14/2011 - Migraine headache 01/23/2012 - Non morbid obesity due to excess calories 08/29/2016 - Obstructive sleep apnea - Osteoporosis 03/13/2011 - Peptic ulcer, unspecified site, unspecified as acute or chronic, without mention of hemorrhage, perforation, or obstruction Peptic ulcer disease - Tobacco abuse 01/23/2012 - Trigeminal neuralgia 12/29/2013 - Trigeminal neuralgia of right side of face 05/03/2015 - Vitamin D deficiency 03/19/2011 Current Outpatient Prescriptions on File Prior to Visit: aspirin 325 mg tablet Take 325 mg by mouth one time only. isosorbide mononitrate ER (IMDUR) 30 mg 24 hr tablet Take 1 tablet by mouth once daily. atorvastatin (LIPITOR) 80 mg tablet Take 1 tablet by mouth once daily. nitroglycerin sublingual (NITROQUICK) 0.4 mg SL tablet Dissolve 1 tablet under the tongue as needed. FOR CHEST PAIN. IF NO RELIEF CALL 911 metoprolol succinate ER (TOPROL XL) 50 mg 24 hr tablet Take 1 tablet by mouth once daily. hydrOXYzine HCl (ATARAX) 50 mg tablet Take 1 tablet by mouth three times daily as needed for Anxiety. pantoprazole DR (PROTONIX) 40 mg tablet TAKE 1 TABLET BY MOUTH EVERY DAY loratadine (CLARITIN) 10 mg tablet Take 1 tablet by mouth once daily. Hydrochlorothiazide 12.5 mg capsule Take 1 capsule by mouth once daily. fluticasone-vilanterol (BREO ELLIPTA) 200-25 mcg/dose inhaler Inhale 1 Inhalation as instructed once daily. Inhale one puff once daily. DO NOT CLICK OPEN UNTIL READY FOR DOSE pregabalin (LYRICA) 100 mg capsule Take 1 capsule by mouth three times daily. albuterol HFA (PROAIR HFA) 90 mcg/actuation inhaler Inhale 2 Puffs as instructed every 4 hours as needed. alendronate (FOSAMAX) 70 mg tablet Take 1 tablet by mouth once each week. Take with a full glass of water, on an empty stomach; do NOT lie down for 30minutes. promethazine (PHENERGAN) 25 mg tablet Take 1 tablet by mouth four times daily as needed for Nausea/Vomiting. pantoprazole DR (PROTONIX) 40 mg tablet Take 1 tablet by mouth once daily. (Patient taking differently: Take 40 mg by mouth as needed.) morphine SR (MS CONTIN) 15 mg 12 hr tablet Take 15 mg by mouth twice daily as needed. No current facility-administered medications on file prior to visit. FAMILY HISTORY Problem Relation Age of Onset - Heart Father 35 - Cancer Father - Cancer Mother - Breast Cancer Paternal Grandmother - Breast Cancer Paternal Aunt - Cancer Maternal Uncle LUNG - Heart Maternal Grandmother Social History Substance Use Topics - Smoking status: Current Every Day Smoker Packs/day: 0.25 Years: 45.00 Types: Cigarettes - Smokeless tobacco: Never Used Comment: trying to quit - Alcohol use No BP 122/83 Pulse 94 Resp 18 Wt 82.1 kg (181 lb) BMI 33.11 kg/m2 . OBJECTIVE: APPEARANCE Well appearing, alert, in no acute distress, well- hydrated, well nourished., Appearance: well dressed well groomed, cooperative and pleasant Behavior: good eye contact Speech: fluent and coherent Mood: anxious Affect: appropriate Perceptions: none Thought process: goal directed Thought Content: normal Intelligence level: normal Insight: good Judgment: good Lab Results for BRITNEY MARIE ( ) as of 01/28/2018 16:21 Ref. Range 01/07/2018 10:36 01/18/2018 10:41 01/22/2018 09:55 01/22/2018 10:00 Sodium Latest Ref Range: 136 - 144 mmol/L 142 Potassium Latest Ref Range: 3.7 - 5.1 mmol/L 4.1 Chloride Latest Ref Range: 97 - 105 mmol/L 101 CO2 Latest Ref Range: 22 - 30 mmol/L 28 BUN Latest Ref Range: 7 - 21 mg/dL 13 Creatinine Latest Ref Range: 0.58 - 0.96 mg/dL 0.82 Glucose Latest Ref Range: 74 - 99 mg/dL 97 Protein, Total Latest Ref Range: 6.3 - 8.0 g/dL 7.7 Calcium Latest Ref Range: 8.5 - 10.2 mg/dL 9.6 Albumin Latest Ref Range: 3.9 - 4.9 g/dL 4.6 Bilirubin, Total Latest Ref Range: 0.2 - 1.3 mg/dL 0.3 Alkaline Phosphatase Latest Ref Range: 32 - 117 U/L 81 ALT Latest Ref Range: 7 - 38 U/L 20 17 AST Latest Ref Range: 13 - 35 U/L 20 Anion Gap Latest Ref Range: 9 - 18 mmol/L 13 CK Latest Ref Range: 42 - 196 U/L 65 eGFR- Unknown ANDgt;60 eGFR-All Other Races Latest Units: . ANDgt;60 CRP Latest Ref Range: ANDlt;0.9 mg/dL 1.0 (H) Cholesterol, Total Latest Ref Range: ANDlt;200 mg/dL 186 Triglyceride Latest Ref Range: ANDlt;150 mg/dL 147 Fasting Time Latest Units: hrs 12 HDL Cholesterol Latest Ref Range: ANDgt;39 mg/dL 63 LDL Cholesterol Latest Ref Range: ANDlt;100 mg/dL 94 VLDL Cholesterol Latest Ref Range: ANDlt;30 mg/dL 29 TC:HDL Ratio Latest Ref Range: ANDlt;5.10 2.95 LDL:HDL Ratio Latest Ref Range: ANDlt;2.54 1.49 Non HDL Cholesterol Latest Ref Range: ANDlt;130 mg/dL 123 Vitamin D 25 Hydroxy Latest Ref Range: 31.0 - 80.0 ng/mL 27.8 (L) TSH Latest Ref Range: 0.400 - 5.500 uU/mL 1.070 WBC Latest Ref Range: 3.70 - 11.00 k/uL 12.47 (H) 14.47 (H) 13.82 (H) RBC Latest Ref Range: 3.90 - 5.20 m/uL 5.37 (H) 4.93 4.89 Hemoglobin Latest Ref Range: 11.5 - 15.5 g/dL 15.7 (H) 14.2 14.1 Hematocrit Latest Ref Range: 36.0 - 46.0 % 47.5 (H) 43.7 43.0 Platelet Count Latest Ref Range: 150 - 400 k/uL 444 (H) 414 (H) 404 (H) MCV Latest Ref Range: 80.0 - 100.0 fL 88.5 88.6 87.9 MCH Latest Ref Range: 26.0 - 34.0 pG 29.2 28.8 28.8 MCHC Latest Ref Range: 30.5 - 36.0 g/dL 33.1 32.5 32.8 MPV Latest Ref Range: 9.0 - 12.7 fL 9.4 8.9 (L) 9.0 RDW-CV Latest Ref Range: 11.5 - 15.0 % 13.0 13.4 13.4 Neut% Latest Units: % 56.6 Abs Neut (ANC) Latest Ref Range: 1.45 - 7.50 k/uL 7.82 (H) Lymph% Latest Units: % 32.9 Abs Lymph Latest Ref Range: 1.00 - 4.00 k/uL 4.54 (H) Hocking% Latest Units: % 7.8 Abs [place]ing Latest Ref Range: ANDlt;0.87 k/uL 1.08 (H) Eosin% Latest Units: % 2.2 Abs Eosin Latest Ref Range: ANDlt;0.46 k/uL 0.31 Baso% Latest Units: % 0.5 Abs Baso Latest Ref Range: ANDlt;0.11 k/uL 0.07 Nucleated Reds Latest Ref Range: 0 /100 WBC 0.0 Absolute nRBC Latest Ref Range: ANDlt;0.01 k/uL ANDlt;0.01 ANDlt;0.01 ANDlt;0.01 Diff Type Unknown Auto Diff WSR Latest Ref Range: 0 - 20 mm/hr 15 PT Sec Latest Ref Range: 9.7 - 13.0 sec 9.2 (L) PT INR Latest Ref Range: 0.9 - 1.3 ANDlt;0.9 (L) ASSESSMENT: anxiety-recurrent ?polycythemia vera?--resolving infection of uncertain origin ? PLAN: CBC with diff healthy diet and regular exercise lexapro 10mg daily return to office 6 wks same other medications ARBEN Lantigua MD, III MD Frank A Cebul, III MD 01/28/2018 4:45 PM Signed PLAN: CBC with diff healthy diet and regular exercise lexapro 10mg daily return to office 6 wks same other medications Mare River III MD Referring Provider: SELF [[id number]] Allergies As of Date: 01/28/2018 Noted Allergy Reaction LATEX 10/21/2013 2 - Rash DARVOCET A500 (PROPOXYPHENE N-CORRIE*08/05/2017 9 - Itching DARVOCET-N 100 (PROPOXYPHENE N-AC*12/11/2009 9 - Itching DILAUDID (HYDROMORPHONE HCL) 08/05/2017 14 - Other: See Comments Comments: Burning sensation over entire body EES [Other] 11/24/2005 HEPARIN ANALOGUES 06/09/2013 4 - Hives 7 - Swelling KEFLEX (CEPHALEXIN) 08/05/2017 7 - Swelling 9 - Itching 12 - Shortness of Breath LEVAQUIN (LEVOFLOXACIN) 11/10/2013 9 - Itching LISINOPRIL 01/17/2015 14 - Other: See Comments Comments: flushing OXYCODONE 08/05/2017 9 - Itching OXYCOTIN (OXYCODONE) 12/11/2009 4 - Hives 7 - Swelling 9 - Itching PENICILLIN 08/05/2017 10 - Anaphylaxis Comments: 4 years old PERCOCET (OXYCODONE-ACETAMINOPHEN)12/11/2009 9 - Itching POLYTRIM (POLYMYXIN B SULF-TRIMET*03/29/2015 7 - Swelling 9 - Itching SULFA (SULFONAMIDE ANTIBIOTICS) 11/24/2005 4 - Hives TEGRETOL (CARBAMAZEPINE) 06/04/2015 1 - Mental Status Change VIBRAMYCIN (DOXYCYCLINE CALCIUM) 08/05/2017 4 - Hives 9 - Itching VICODIN (HYDROCODONE-ACETAMINOPHE*11/24/2005 ADHESIVE TAPE (ROSINS) 03/03/2012 2 - Rash 9 - Itching Date Reviewed: 01/28/2018 Reviewed by: Bekah ([facility]) ISMAEL Senior - Fully Assessed Reason for Visit: Anxiety [9] Primary Visit Diagnosis:Bandemia [D72.825] Other Visit Diagnoses:Thrombocytosis (HCC) [D47.3] Moderate episode of recurrent major depressive disorder (HCC) [F33.1] Anxiety [F41.9] Order(s):CBC + DIFF [SQCBCDIF] Order #: [id number] FUTURE escitalopram oxalate (LEXAPRO) 10 mg tabletTake 1 tablet by mouth once daily.Disp: 30 tabletRfl: 11 Prescriptions as of 01/28/2018 Sig: ASPIRIN 325 MG TABLET Take 325 mg by mouth one time* ISOSORBIDE MONONITRATE ER 30 * Take 1 tablet by mouth once d* ATORVASTATIN 80 MG TABLET Take 1 tablet by mouth once d* NITROGLYCERIN 0.4 MG SUBLINGU* Dissolve 1 tablet under the t* METOPROLOL SUCCINATE ER 50 MG* Take 1 tablet by mouth once d* HYDROXYZINE HCL 50 MG TABLET Take 1 tablet by mouth three * PANTOPRAZOLE 40 MG TABLET,DEL* TAKE 1 TABLET BY MOUTH EVERY * LORATADINE 10 MG TABLET Take 1 tablet by mouth once d* HYDROCHLOROTHIAZIDE 12.5 MG C* Take 1 capsule by mouth once * FLUTICASONE 200 MCG-VILANTERO* Inhale 1 Inhalation as instru* PREGABALIN 100 MG CAPSULE Take 1 capsule by mouth three* ALBUTEROL SULFATE HFA 90 MCG/* Inhale 2 Puffs as instructed * ALENDRONATE 70 MG TABLET Take 1 tablet by mouth once e* PROMETHAZINE 25 MG TABLET Take 1 tablet by mouth four t* PANTOPRAZOLE 40 MG TABLET,DEL* Take 1 tablet by mouth once d* Patient taking differently: Take 40 mg by mouth as needed. MORPHINE ER 15 MG TABLET,EXTE* Take 15 mg by mouth twice octavio* ESCITALOPRAM 10 MG TABLET Take 1 tablet by mouth once d* Problem List As Of Date 01/28/2018 Noted Resolved Cocaine substance abuse [F14.10] 09/04/2014 Essential hypertension, benign [I10] INVALID FOR* Priority: F More... Degenerative disc disease, cervical [M50.30] INVALID FOR* Priority: D More... Depression [F32.9] INVALID FOR* Priority: E More... Dysmetabolic syndrome X [E88.81] INVALID FOR* Osteoporosis [M81.0] INVALID FOR* Cervical disc disorder [M50.90] INVALID FOR* Vitamin D deficiency [E55.9] INVALID FOR* Hyperlipidemia with target LDL less than 70 [E7*INVALID FOR* Priority: G More... ASHD (arteriosclerotic heart disease) [I25.10] INVALID FOR* More... Chest pain [R07.9] INVALID FOR*09/04/2014 Priority: B More... Tobacco abuse [Z72.0] INVALID FOR* Priority: I More... Tobacco abuse counseling [Z71.6] INVALID FOR* Migraine headache [G43.909] INVALID FOR* Priority: H More... SUMMARY [V999.95] INVALID FOR* Priority: A More... Asthma [J45.909] INVALID FOR* Priority: C More... Elevated gastrin level [E16.4] INVALID FOR* Flushing [R23.2] INVALID FOR* Trigeminal neuralgia [G50.0] INVALID FOR* Erosive esophagitis [K22.10] INVALID FOR* Spontaneous ecchymoses [R23.3] INVALID FOR* Lumbar back pain with radiculopathy affecting l*INVALID FOR* Arteriosclerosis of carotid artery [I65.29] INVALID FOR* MELYSSA (obstructive sleep apnea) [G47.33] INVALID FOR* Trigeminal neuralgia of right side of face [G50*INVALID FOR* Obesity (BMI 30-39.9) [E66.9] INVALID FOR* Grief [F43.20] INVALID FOR* Other seasonal allergic rhinitis [J30.2] INVALID FOR* Anxiety and depression [F41.8] INVALID FOR* Sense of smell altered [R43.9] INVALID FOR* Nonintractable headache [R51] INVALID FOR* Non morbid obesity due to excess calories [E66.*INVALID FOR* Fibrocystic breast changes, bilateral [N60.11, *INVALID FOR* Orthostatic hypotension [I95.1] INVALID FOR* Moderate episode of recurrent major depressive *INVALID FOR* 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 Medications Discontinued During This Encounter COMPOUNDED PRESCRIPTION 1 Ea* 0 09/10/2017 01/28/2018 Class: Print RX Sig: CPAP adjustment dx: obstructive sleep apnea Disc: Discontinued by Patient Encounter Status:Closed by MARE RIVER III, MD on 01/28/18 NURSING PROG Observed: 01/25/2018 Status: COMPLETED Source: [place] 10:23 AM [facility] REPOSITORY HNO ID: [id number] Author: Monik (Rn) MURALI Jefferson Service: (none) Author Type: Registered Nurse Type: Nursing Progress Note Filed: 01/25/2018 10:25 AM Note Text: Nursing Progress Note Patient Name: Britney Marie Patient Location: [facility] 1020 Pt return to [facility], RIGHT wrist VASC BAND on 2+ radial pulse. Hand warm + cap refill, upper arm also soft. No complaints of pain. Home instructions initiated. This note was completed by: Monik Jefferson RN HISTORY PHYSICAL Observed: 01/25/2018 Status: COMPLETED Source: [place] 9:10 AM [facility] REPOSITORY HNO ID: [id number] Author: Karan Poe Service: Cardiovascular Disease Author Type: Physician Type: HANDP Filed: 01/25/2018 10:13 AM Note Text: UPDATED HANDP PRE-CARDIAC CATHETERIZATION SERVICE DATE: 01/25/2018 SERVICE TIME: 9:15 am PHYSICAL EXAM MUST BE COMPLETED ON ADMISSION The History and Physical (completed in the past 30 days) has been reviewed and the patient has been examined. The contents accurately reflect the patient's condition with the following additions or revisions since the HANDP was completed. Examination indicates no changes. Planned Procedure: Left Heart Cath + Possible PCI Primary Indication for Procedure: Angina, Stable and CCS class 3 High Risk Features: History of Prior CABG: No History of Prior PCI: No Cardiomyopathy: No Anti-ischemic Meds in Past 2 Weeks: Beta blockers and Nitrates Ejection Fraction: Normal a year ago Risk Appropriateness: Angina Class in Past 2 Weeks: Class III - Marked limitation of ordinary physical activity Stress Test Results: No stress test performed Cardiogenic Shock: No CHF in Past 2 Weeks: No HISTORY OF BLEEDING: No This HANDP can be found in the Electronic Medical Record dated 01/18/[address] Vargas. SIGNATURE: Karan Poe MD PATIENT NAME: Britney Marie DATE: January 25, 2018 TIME: 10:11 AM PAGER: NURSING PROG Observed: 01/25/2018 Status: COMPLETED Source: [place] 7:42 AM [facility] REPOSITORY HNO ID: [id number] Author: Mary Schulz RN Service: Nursing Author Type: Registered Nurse Type: Nursing Progress Note Filed: 01/25/2018 8:02 AM Note Text: Nursing Progress Note Patient Name: Britney Marie Patient Location: [facility] 0742 - Patient arrived to [facility]- accompanied by friend, Susan. Patient oriented to room, procedure explained, and sedation teaching initialized. Patient verbalizes that she has been experiencing an anxiety attack since 0400, and would like a sedative. RN told patient that would be addressed once Dr. Dominique sees patient and obtains informed consent. Patient verbalizes understanding. This note was completed by: Mary Schulz RN ALT Collected: 01/22/2018 Status: F Source: [place] 10:00 AM [facility] REPOSITORY TYPE CODE TESTS RESULT OUT OF RANGE REFERENCE UNITS LAB ALT 7-38 U/L ALT 17 Performed By: #### ALT #### [facility] [address] [address] CBC AND DIFFERENTIAL Collected: 01/22/2018 Status: F Source: [place] 9:55 AM [facility] REPOSITORY TYPE CODE TESTS RESULT OUT OF REFERENCE UNITS RANGE LAB WBC 3.70-11.00 k/uL WBC High 13.82 LAB RBC 3.90-5.20 m/uL RBC 4.89 LAB HGB 11.5-15.5 g/dL Hemoglobin 14.1 LAB HCT 36.0-46.0 % Hematocrit 43.0 LAB MCV 80.0-100.0 fL MCV 87.9 LAB MCH 26.0-34.0 pG MCH 28.8 LAB MCHC 30.5-36.0 g/dL MCHC 32.8 LAB RDWCV 11.5-15.0 % RDW-CV 13.4 LAB PLTCT 150-400 k/uL Platelet High Count 404 LAB MPV 9.0-12.7 fL MPV 9.0 LAB ANEUT % Neut% 56.6 LAB AANEUT 1.45-7.50 k/uL Abs Neut High 7.82 LAB ALYMP % Lymph% 32.9 LAB AALYMP 1.00-4.00 k/uL Abs High Lymph 4.54 LAB AMONO % Hocking% 7.8 LAB AAMONO <0.87 k/uL Abs [place] High 1.08 LAB AEOS % Eosin% 2.2 LAB AAEOS <0.46 k/uL Abs Eosin 0.31 LAB ABASO % Baso% 0.5 LAB AABASO <0.11 k/uL Abs Baso 0.07 LAB AUNRBC 0 /100 WBC NRBCs 0.0 LAB ABNRBC <0.01 k/uL Absolute nRBC <0.01 LAB DTYP DTYPE Auto Diff Performed By: #### CBCDIF, WSR, CK, CRP, LIPB #### [facility] [employer] [address] [place], [place] [address] SED RATE WESTERGREN Collected: 01/22/2018 Status: F Source: [place] 9:55 AM [facility] REPOSITORY TYPE CODE TESTS RESULT OUT OF REFERENCE UNITS RANGE LAB WSR 0-20 mm/hr Sed Rate Westergren 15 Performed By: #### CBCDIF, WSR, CK, CRP, LIPB #### [facility] [employer] [address] [place] [address] CK Collected: 01/22/2018 Status: F Source: [facility] 9:55 AM [facility] REPOSITORY TYPE CODE TESTS RESULT OUT OF RANGE REFERENCE UNITS LAB CK 42-196 U/L CK 65 Result Comment: Please note the updated, gender-specific reference range for this test (effective 10/30/2016). Performed By: #### CBCDIF, WSR, CK, CRP, LIPB #### [facility] [employer] [address] [place] [address] C-REACTIVE PROTEIN Collected: 01/22/2018 Status: F Source: [place] 9:55 AM [facility] REPOSITORY TYPE CODE TESTS RESULT OUT OF REFERENCE UNITS RANGE LAB CRP <0.9 mg/dL High C-Reactive 1.0 Protein Performed By: #### CBCDIF, WSR, CK, CRP, LIPB #### [facility] [address] [place], [place] [address] LIPID PANEL, BASIC Collected: 01/22/2018 Status: F Source: [place] 9:55 AM [facility] REPOSITORY TYPE CODE TESTS RESULT OUT OF REFERENCE UNITS RANGE LAB CHOL <200 mg/dL Cholesterol 186 Result Comment: <200 mg/dL, Desirable 200-239 mg/dL, Borderline high >239 mg/dL, High LAB TRIGLY <150 mg/dL Triglyceride 147 Result Comment: <150 mg/dL, Normal 150-199 mg/dL, Borderline high 200-499 mg/dL, High >499 mg/dL, Very high LAB HDL >39 mg/dL HDL-Cholesterol 63 Result Comment: 40-59 mg/dL, Acceptable >59 mg/dL, High: Negative risk factor for coronary heart disease <40 mg/dL, Low: Positive risk factor for coronary heart disease LAB LDL <100 mg/dL LDL-Cholesterol 94 Result Comment: <100 mg/dL, Optimal 100-129 mg/dL, Near optimal/above optimal 130-159 mg/dL, Borderline high 160-189 mg/dL, High >189 mg/dL, Very high Secondary prevention optimal LDL Cholesterol levels are recommended to be < 70 mg/dL LAB NONHDL <130 mg/dL Non HDL Cholesterol 123 Result Comment: <130 mg/dL, Optimal 130-159 mg/dL, Near optimal/above optimal 160-189 mg/dL, Borderline high 190-219 mg/dL, High >219 mg/dL, Very high Secondary prevention optimal non HDL Cholesterol levels are recommended to be < 100 mg/dL LAB FT hrs Fasting Time 12 LAB VLDL <30 mg/dL VLDL Cholesterol 29 LAB TCHDL <5.10 TC:HDL Ratio 2.95 LAB LDLHDL <2.54 LDL:HDL Ratio 1.49 Result Comment: Reference: 1. National Cholesterol Education Program ATP III Guideline At-A-Glance Quick Desk Reference: National Heart, Lung, and Blood Barry. National Institutes of Health. 2001: NIH Publication No. 01-3305. 2. An International Atherosclerosis Society position paper: global recommendations for the management of dyslipidemia: executive summary, Atherosclerosis. 2014: 232(2):410-413. Performed By: #### CBCDIF, WSR, CK, CRP, LIPB #### [facility] [address] [place], [place] [address] 12 LEAD ELECTROCARDIOGRAM Observed: 01/19/2018 Status: F Source: [place] 4:20 PM [facility] REPOSITORY [facility] Cardiovascular Services [address] [place] [address] 12 Lead EKG 01/15/18 1627 MR#: [id number] Acct: [id number] Name: BRITNEY MARIE Rep #: [id number] : 1960 57 From: Gualberto Gomez MD Attending Dr: Status: DEP ER Ordering Dr: Enrique Bradford MD Date: 01/15/18 Location: ED Sex: F C Admitted: Test Reason : CP Blood Pressure : / mmHG Vent. Rate : 114 BPM Atrial Rate : 114 BPM P-R Int : 128 ms QRS Dur : 088 ms QT Int : 342 ms P-R-T Axes : 069 048 064 degrees QTc Int : 471 ms Sinus tachycardia Nonspecific ST abnormality Abnormal ECG Confirmed by GUALBERTO GOMEZ MD ([id number]), food editor JOLIE OLGUIN ([id number]) on 01/19/2018 4:20:02 PM Referred By: Confirmed By:GUALBERTO GOMEZ MD 01/19/18 1620 Date Gualberto Gomez MD CC: Mare River III, MD; Enrique Bradford MD Signed 12 LEAD ELECTROCARDIOGRAM Observed: 01/19/2018 Status: F Source: [place] 4:20 PM [facility] REPOSITORY [facility] Cardiovascular Services [address] [place] [address] 12 Lead EKG 01/15/18 1802 MR#: [id number] Acct: [id number] Name: BRITNEY MARIE Rep #: [id number] : 1960 57 From: Gualberto Gomez MD Attending Dr: Status: DEP ER Ordering Dr: Enrique Bradford MD Date: 01/15/18 Location: ED Sex: F C Admitted: Test Reason : REPEAT Blood Pressure : / mmHG Vent. Rate : 090 BPM Atrial Rate : 090 BPM P-R Int : 128 ms QRS Dur : 086 ms QT Int : 380 ms P-R-T Axes : 069 044 047 degrees QTc Int : 464 ms Normal sinus rhythm Normal ECG Confirmed by GUALBERTO GOMEZ MD ([id number]), food editor JOLIE OLGUIN ([id number]) on 01/19/2018 4:20:14 PM Referred By: DEON Confirmed By:GUALBERTO GOMEZ MD 01/19/18 1620 Date Gualberto Gomez MD CC: Mare River III, MD; Enrique Bradford MD Signed OBSOLETE Observed: 01/19/2018 Status: COMPLETED Source: [place] 12:00 AM CLINIC OTHER CAMPUS REPOSITORY Refill (AGCARDWST) BRITNEY MARIE ([id number]) 1960 F CHT Date Time Provider Department 01/19/18 LAZARO VARGAS AGCARDWST During your visit today, we recorded the following information about you: Arpit Grigsby, RN, RN 01/19/2018 1:39 PM Signed If patient requires taking two 40mg tablets of atorvastatin that would need to be prior authorized. If she can take an 80mg tablet please review order, thank you. Lazaro Vargas MD 01/19/2018 3:30 PM Signed Labs are due. Lazaro Vargas MD The following approved medication requests have been transmitted electronically. Signed Prescriptions Disp Refills atorvastatin (LIPITOR) 80 mg tablet 90 tablet 3 Sig: Take 1 tablet by mouth once daily. TIFFANIE: No Authorizing Provider: LAZARO VARGAS MD Adam Gilmor RN, RN 01/19/2018 3:48 PM Signed Patient verbalizes understanding. Allergies As of Date: 01/19/2018 Noted Allergy Reaction LATEX 10/21/2013 2 - Rash DARVOCET A500 (PROPOXYPHENE N-CORRIE*08/05/2017 9 - Itching DARVOCET-N 100 (PROPOXYPHENE N-AC*12/11/2009 9 - Itching DILAUDID (HYDROMORPHONE (BULK)) 12/11/2009 9 - Itching DILAUDID (HYDROMORPHONE HCL) 08/05/2017 14 - Other: See Comments Comments: Burning sensation over entire body EES [Other] 11/24/2005 HEPARIN ANALOGUES 06/09/2013 4 - Hives 7 - Swelling KEFLEX (CEPHALEXIN) 11/24/2005 KEFLEX (CEPHALEXIN) 08/05/2017 7 - Swelling 9 - Itching 12 - Shortness of Breath LEVAQUIN (LEVOFLOXACIN) 11/10/2013 9 - Itching LISINOPRIL 01/17/2015 14 - Other: See Comments Comments: flushing OXYCODONE 08/05/2017 9 - Itching OXYCOTIN (OXYCODONE) 12/11/2009 4 - Hives 7 - Swelling 9 - Itching PENICILLIN 08/05/2017 10 - Anaphylaxis Comments: 4 years old PENICILLINS 11/24/2005 7 - Swelling PERCOCET (OXYCODONE-ACETAMINOPHEN)12/11/2009 9 - Itching POLYTRIM (POLYMYXIN B SULF-TRIMET*03/29/2015 7 - Swelling 9 - Itching SULFA (SULFONAMIDE ANTIBIOTICS) 11/24/2005 4 - Hives TEGRETOL (CARBAMAZEPINE) 06/04/2015 1 - Mental Status Change VIBRAMYCIN (DOXYCYCLINE CALCIUM) 08/05/2017 4 - Hives 9 - Itching VICODIN (HYDROCODONE-ACETAMINOPHE*11/24/2005 ADHESIVE TAPE (ROSINS) 03/03/2012 2 - Rash 9 - Itching Date Reviewed: 01/18/2018 Reviewed by: Aleida Ramirez Ma - Fully Assessed Reason for Visit: Refill Request [94] Visit Diagnosis:Hyperlipidemia with target LDL less than 70 [E78.5] Order(s):atorvastatin (LIPITOR) 80 mg tabletTake 1 tablet by mouth once daily.Disp: 90 tabletRfl: 3 LIPID PANEL BASIC [SQLIPB] Order #: [id number] FUTURE ALT/SGPT [SQALT] Order #: [id number] FUTURE CK CREATINE KINASE [SQCK] Order #: [id number] FUTURE Prescriptions as of 01/19/2018 Sig: ATORVASTATIN 80 MG TABLET Take 1 tablet by mouth once d* NITROGLYCERIN 0.4 MG SUBLINGU* Dissolve 1 tablet under the t* METOPROLOL SUCCINATE ER 50 MG* Take 1 tablet by mouth once d* HYDROXYZINE HCL 50 MG TABLET Take 1 tablet by mouth three * METHYLPREDNISOLONE 4 MG TABLE* Follow dosing instructions, t* PANTOPRAZOLE 40 MG TABLET,DEL* TAKE 1 TABLET BY MOUTH EVERY * LORATADINE 10 MG TABLET Take 1 tablet by mouth once d* HYDROCHLOROTHIAZIDE 12.5 MG C* Take 1 capsule by mouth once * FLUTICASONE 200 MCG-VILANTERO* Inhale 1 Inhalation as instru* PREGABALIN 100 MG CAPSULE Take 1 capsule by mouth three* COMPOUNDED PRESCRIPTION CPAP adjustment dx: obstru* ALBUTEROL SULFATE HFA 90 MCG/* Inhale 2 Puffs as instructed * ALENDRONATE 70 MG TABLET Take 1 tablet by mouth once e* PROMETHAZINE 25 MG TABLET Take 1 tablet by mouth four t* PANTOPRAZOLE 40 MG TABLET,DEL* Take 1 tablet by mouth once d* Patient taking differently: Take 40 mg by mouth as needed. MORPHINE ER 15 MG TABLET,EXTE* Take 15 mg by mouth twice octavio* Problem List As Of Date 01/19/2018 Noted Resolved Cocaine substance abuse [F14.10] 09/04/2014 Essential hypertension, benign [I10] INVALID FOR* Priority: F More... Degenerative disc disease, cervical [M50.30] INVALID FOR* Priority: D More... Depression [F32.9] INVALID FOR* Priority: E More... Dysmetabolic syndrome X [E88.81] INVALID FOR* Osteoporosis [M81.0] INVALID FOR* Cervical disc disorder [M50.90] INVALID FOR* Vitamin D deficiency [E55.9] INVALID FOR* Hyperlipidemia with target LDL less than 70 [E7*INVALID FOR* Priority: G More... ASHD (arteriosclerotic heart disease) [I25.10] INVALID FOR* More... Chest pain [R07.9] INVALID FOR*09/04/2014 Priority: B More... Tobacco abuse [Z72.0] INVALID FOR* Priority: I More... Tobacco abuse counseling [Z71.6] INVALID FOR* Migraine headache [G43.909] INVALID FOR* Priority: H More... SUMMARY [V999.95] INVALID FOR* Priority: A More... Asthma [J45.909] INVALID FOR* Priority: C More... Elevated gastrin level [E16.4] INVALID FOR* Flushing [R23.2] INVALID FOR* Trigeminal neuralgia [G50.0] INVALID FOR* Erosive esophagitis [K22.10] INVALID FOR* Spontaneous ecchymoses [R23.3] INVALID FOR* Lumbar back pain with radiculopathy affecting l*INVALID FOR* Arteriosclerosis of carotid artery [I65.29] INVALID FOR* MELYSSA (obstructive sleep apnea) [G47.33] INVALID FOR* Trigeminal neuralgia of right side of face [G50*INVALID FOR* Obesity (BMI 30-39.9) [E66.9] INVALID FOR* Grief [F43.20] INVALID FOR* Other seasonal allergic rhinitis [J30.2] INVALID FOR* Anxiety and depression [F41.8] INVALID FOR* Sense of smell altered [R43.9] INVALID FOR* Nonintractable headache [R51] INVALID FOR* Non morbid obesity due to excess calories [E66.*INVALID FOR* Fibrocystic breast changes, bilateral [N60.11, *INVALID FOR* Orthostatic hypotension [I95.1] INVALID FOR* Moderate episode of recurrent major depressive *INVALID FOR* 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 Medications Discontinued During This Encounter atorvastatin (LIPITOR) 40 mg tablet 180 * 3 01/18/2018 01/19/2018 Route: ORAL Sig: Take 2 tablets by mouth once daily. Disc: Reason for discontinue is not on file. Encounter Status:Closed by ARPIT GRIGSBY on 01/19/18 PROGRESS Observed: 01/18/2018 Status: COMPLETED Source: [place] 3:36 PM [facility] REPOSITORY HNO ID: [id number] Author: Lindsey Malone Service: (none) Author Type: Nurse Practitioner Type: Progress Notes Filed: 01/18/2018 4:18 PM Note Text: 01/18/2018 Patient presents with: ER F/U: chest pain SUBJECTIVE: This is a 57 year old that is here today for follow up [facility], [place], and anxiety. [facility]: She was seen at [facility] ER 01/15/18 for CP. It was recommended that she stay to be admitted, but she left AMA. CBC showed WBC of 22, neut 84, lymph 10, d-dimer neg, trop neg, normal UA. She was treated with ASA and morphine. She was seen by Dr. Vargas this morning and she reports that he mentioned that the elevated WBC may be related to the heart since she has no other symptoms of infection. He reordered the CBC. He ordered a cardiac cath and it is scheduled for Thursday. She denies any CP right now. Anxiety: She states that she has had a lot of family stress recently. One of her sons moved into her home and is a stressor for her to the point that she left and is now staying with her youngest son. One of the sons (not sure which) is expecting a baby and prior to this appointment, she just came from the hospital because her daughter in law is in labor and expected to have the baby. She is tearful discussing how worried she is. She is concerned because Dr. Vargas told her to avoid stress. She is taking atarax 25mg TID as ordered and not sure that it is helping with this new stress. SIMPSON: Toradol injection helped for a few days. She thought that she get the inflammatory marker labs done that were ordered when she got labs this morning, but they are still marked pending. She agrees to get them done today. She has not been able to get the CT done due to insurance not yet approving it. She still describes the SIMPSON as on the left side of her head and eye and is a constant ache. Denies any further episodes of tunnel vision, just the pain came back. She has not been taking her prednisone as ordered, she took one or two of them. None today. She has not taken anything else for the pain. PAST MEDICAL HISTORY Diagnosis Date - ASHD (arteriosclerotic heart disease) 10/14/2011 - Cervical disc disorder 03/13/2011 - Cocaine substance abuse 2003 - COPD (chronic obstructive pulmonary disease) (HCC) - Degenerative disc disease, cervical 2010 - Depression 2010 - Dysmetabolic syndrome X 01/21/2011 - Erosive esophagitis 09/04/2014 - Esophageal reflux Gastroesophageal reflux - Essential hypertension, benign 09/09/2010 no meds currently 03/26 - Fibrocystic breast changes, bilateral 01/28/2017 - Hyperlipidemia LDL goal < 130 2010 - Hyperlipidemia LDL goal < 70 10/14/2011 - Migraine headache 01/23/2012 - Non morbid obesity due to excess calories 08/29/2016 - Obstructive sleep apnea - Osteoporosis 03/13/2011 - Peptic ulcer, unspecified site, unspecified as acute or chronic, without mention of hemorrhage, perforation, or obstruction Peptic ulcer disease - Tobacco abuse 01/23/2012 - Trigeminal neuralgia 12/29/2013 - Trigeminal neuralgia of right side of face 05/03/2015 - Vitamin D deficiency 03/19/2011 ALLERGIES Latex; Darvocet A500 [Propoxyphene N-Acetaminophen]; Darvocet-N 100 [Propoxyphene N-Acetaminophen]; Dilaudid [Hydromorphone (Bulk)]; Dilaudid [Hydromorphone Hcl]; Ees [Other]; Heparin Analogues; Keflex [Cephalexin]; Keflex [Cephalexin]; Levaquin [Levofloxacin]; Lisinopril; Oxycodone; Oxycotin [Oxycodone]; Penicillin; Penicillins; Percocet [Oxycodone-Acetaminophen]; Polytrim [Polymyxin B Sulf-Trimethoprim]; Sulfa (Sulfonamide Antibiotics); Tegretol [Carbamazepine]; Vibramycin [Doxycycline Calcium]; Vicodin [Hydrocodone-Acetaminophen]; Adhesive Tape (Rosins) MEDICATIONS Current Outpatient Prescriptions: atorvastatin (LIPITOR) 40 mg tablet Take 2 tablets by mouth once daily. nitroglycerin sublingual (NITROQUICK) 0.4 mg SL tablet Dissolve 1 tablet under the tongue as needed. FOR CHEST PAIN. IF NO RELIEF CALL 911 metoprolol succinate ER (TOPROL XL) 50 mg 24 hr tablet Take 1 tablet by mouth once daily. hydrOXYzine HCl (ATARAX) 50 mg tablet Take 1 tablet by mouth three times daily as needed for Anxiety. methylPREDNISolone (MEDROL, ERIC,) 4 mg Dose-Pack Follow dosing instructions, take with food. pantoprazole DR (PROTONIX) 40 mg tablet TAKE 1 TABLET BY MOUTH EVERY DAY loratadine (CLARITIN) 10 mg tablet Take 1 tablet by mouth once daily. Hydrochlorothiazide 12.5 mg capsule Take 1 capsule by mouth once daily. fluticasone-vilanterol (BREO ELLIPTA) 200-25 mcg/dose inhaler Inhale 1 Inhalation as instructed once daily. Inhale one puff once daily. DO NOT CLICK OPEN UNTIL READY FOR DOSE pregabalin (LYRICA) 100 mg capsule Take 1 capsule by mouth three times daily. albuterol HFA (PROAIR HFA) 90 mcg/actuation inhaler Inhale 2 Puffs as instructed every 4 hours as needed. alendronate (FOSAMAX) 70 mg tablet Take 1 tablet by mouth once each week. Take with a full glass of water, on an empty stomach; do NOT lie down for 30minutes. promethazine (PHENERGAN) 25 mg tablet Take 1 tablet by mouth four times daily as needed for Nausea/Vomiting. pantoprazole DR (PROTONIX) 40 mg tablet Take 1 tablet by mouth once daily. (Patient taking differently: Take 40 mg by mouth as needed.) morphine SR (MS CONTIN) 15 mg 12 hr tablet Take 15 mg by mouth twice daily as needed. ketorolac (TORADOL) 30 mg/mL (1 mL) soln Inject 60 mg intramuscularly one time only for 1 dose. COMPOUNDED PRESCRIPTION CPAP adjustmentdx: obstructive sleep apnea No current facility-administered medications for this visit. Medications and allergies reviewed by this provider. SOCIAL HISTORY Social History Marital status: Spouse name: Years of education: Number of children: 3 Occupational History Occupation Employer Comment DISABLED Social History Main Topics Smoking status: Current Every Day Smoker Packs/day: 0.25 Years: 45.00 Types: Cigarettes Smokeless status: Never Used Comment: trying to quit Alcohol use: No Drug use: No Comment: none since 06/2005/cocaine abuse Sexual activity: Not Currently Partners with: Male REVIEW OF SYSTEMS see HPI OBJECTIVE: BP 134/74 (BP Site: Left Arm, BP Position: Sitting, BP Cuff Size: Large Adult) Pulse 106 Temp 37.2 ?C (99 ?F) (Left Tympanic) Resp 16 Wt 83.5 kg (184 lb 1.9 oz) SpO2 97% BMI 33.68 kg/m2. Vital signs reviewed by this provider. PHYSICAL EXAMINATION: General appearance: appears to be in pain. She is squinting and holding her head a lot. Tearful at times discussing home situation. Skin: Skin color, texture, turgor normal, no suspicious rashes or lesions Head: Normocephalic, no masses, lesions, tenderness or abnormalities Eyes: Anicteric sclera. Pupils are equally round and reactive to light. Lungs: Lungs clear to auscultation. No wheezing, rhonchi, rales Heart: RRR without murmur, gallop, or rubs. No ectopy Extremities: No deformities, edema, skin discoloration, clubbing or cyanosis. Good capillary refill. , Pulses: 2+ Appearance: well dressed well groomed, cooperative and pleasant Behavior: good eye contact Speech: fluent and coherent Mood: anxious Affect: appropriate Perceptions: none Thought process: goal directed Thought Content: normal Intelligence level: normal Insight: good Judgment: good ASSESSMENT/PLAN: 1. Headache, unspecified headache type - ICD9: 784.0, ICD10: R51 (primary diagnosis) - encouraged labs today that were previously ordered - still recommend CT- encouraged to call insurance company to inquire - KETOROLAC 30 MG/ML (1 ML) INJECTION SOLUTION- discussed that we will not be able to do this any more moving forward. Will need to get more information from further testing and will consider migraine prophylaxis and PRN treatment as long as no acute process - encouraged ER for red flags 2. Anxiety - ICD9: 300.00, ICD10: F41.9 - Encouraged coping mechanisms and reaching out to people that she finds helpful - Increase HYDROXYZINE HCL 50 MG TABLET - follow up if hydrroxyzine increase is not helpful Lindsey Malone CNP CNOV Observed: 01/18/2018 Status: COMPLETED Source: [place] 2:20 PM [facility] REPOSITORY Office Visit (FAMPWS) BRITNEY MARIE ([id number]) 1960 F T Date Time Provider Department 01/18/18 2:20 PM LINDSEY MALONE (BOOTH USHER) FAMPWS During your visit today, we recorded the following information about you: Temperature Pulse Respiration Blood pressure 99 degrees 106/minute 16/minute 134/74 Weight 83.5 kg Aleida Angelparis Ismael 01/18/2018 3:24 PM Addendum Patient given Toradol 30mg/mL (2mL)= 60mg/mL IM in the left upper quadrant gluteus. Patient tolerated injection well. Please also see mednote. Lot#: [id number] Exp date: 08/04 Aleida Malone CNP 01/18/2018 4:18 PM Signed 01/18/2018 Patient presents with: ER F/U: chest pain SUBJECTIVE: This is a 57 year old that is here today for follow up [facility], [place], and anxiety. [facility]: She was seen at [facility] ER 01/15/18 for CP. It was recommended that she stay to be admitted, but she left AMA. CBC showed WBC of 22, neut 84, lymph 10, d-dimer neg, trop neg, normal UA. She was treated with ASA and morphine. She was seen by Dr. Vargas this morning and she reports that he mentioned that the elevated WBC may be related to the heart since she has no other symptoms of infection. He reordered the CBC. He ordered a cardiac cath and it is scheduled for Thursday. She denies any CP right now. Anxiety: She states that she has had a lot of family stress recently. One of her sons moved into her home and is a stressor for her to the point that she left and is now staying with her youngest son. One of the sons (not sure which) is expecting a baby and prior to this appointment, she just came from the hospital because her daughter in law is in labor and expected to have the baby. She is tearful discussing how worried she is. She is concerned because Dr. Vargas told her to avoid stress. She is taking atarax 25mg TID as ordered and not sure that it is helping with this new stress. SIMPSON: Toradol injection helped for a few days. She thought that she get the inflammatory marker labs done that were ordered when she got labs this morning, but they are still marked pending. She agrees to get them done today. She has not been able to get the CT done due to insurance not yet approving it. She still describes the SIMPSON as on the left side of her head and eye and is a constant ache. Denies any further episodes of tunnel vision, just the pain came back. She has not been taking her prednisone as ordered, she took one or two of them. None today. She has not taken anything else for the pain. PAST MEDICAL HISTORY Diagnosis Date - ASHD (arteriosclerotic heart disease) 10/14/2011 - Cervical disc disorder 03/13/2011 - Cocaine substance abuse 2003 - COPD (chronic obstructive pulmonary disease) (HCC) - Degenerative disc disease, cervical 2010 - Depression 2010 - Dysmetabolic syndrome X 01/21/2011 - Erosive esophagitis 09/04/2014 - Esophageal reflux Gastroesophageal reflux - Essential hypertension, benign 09/09/2010 no meds currently 03/26 - Fibrocystic breast changes, bilateral 01/28/2017 - Hyperlipidemia LDL goal ANDlt; 130 2010 - Hyperlipidemia LDL goal ANDlt; 70 10/14/2011 - Migraine headache 01/23/2012 - Non morbid obesity due to excess calories 08/29/2016 - Obstructive sleep apnea - Osteoporosis 03/13/2011 - Peptic ulcer, unspecified site, unspecified as acute or chronic, without mention of hemorrhage, perforation, or obstruction Peptic ulcer disease - Tobacco abuse 01/23/2012 - Trigeminal neuralgia 12/29/2013 - Trigeminal neuralgia of right side of face 05/03/2015 - Vitamin D deficiency 03/19/2011 ALLERGIES Latex; Darvocet A500 [Propoxyphene N-Acetaminophen]; Darvocet-N 100 [Propoxyphene N-Acetaminophen]; Dilaudid [Hydromorphone (Bulk)]; Dilaudid [Hydromorphone Hcl]; Ees [Other]; Heparin Analogues; Keflex [Cephalexin]; Keflex [Cephalexin]; Levaquin [Levofloxacin]; Lisinopril; Oxycodone; Oxycotin [Oxycodone]; Penicillin; Penicillins; Percocet [Oxycodone-Acetaminophen]; Polytrim [Polymyxin B Sulf-Trimethoprim]; Sulfa (Sulfonamide Antibiotics); Tegretol [Carbamazepine]; Vibramycin [Doxycycline Calcium]; Vicodin [Hydrocodone-Acetaminophen]; Adhesive Tape (Rosins) MEDICATIONS Current Outpatient Prescriptions: atorvastatin (LIPITOR) 40 mg tablet Take 2 tablets by mouth once daily. nitroglycerin sublingual (NITROQUICK) 0.4 mg SL tablet Dissolve 1 tablet under the tongue as needed. FOR CHEST PAIN. IF NO RELIEF CALL 911 metoprolol succinate ER (TOPROL XL) 50 mg 24 hr tablet Take 1 tablet by mouth once daily. hydrOXYzine HCl (ATARAX) 50 mg tablet Take 1 tablet by mouth three times daily as needed for Anxiety. methylPREDNISolone (MEDROL, ERIC,) 4 mg Dose-Pack Follow dosing instructions, take with food. pantoprazole DR (PROTONIX) 40 mg tablet TAKE 1 TABLET BY MOUTH EVERY DAY loratadine (CLARITIN) 10 mg tablet Take 1 tablet by mouth once daily. Hydrochlorothiazide 12.5 mg capsule Take 1 capsule by mouth once daily. fluticasone-vilanterol (BREO ELLIPTA) 200-25 mcg/dose inhaler Inhale 1 Inhalation as instructed once daily. Inhale one puff once daily. DO NOT CLICK OPEN UNTIL READY FOR DOSE pregabalin (LYRICA) 100 mg capsule Take 1 capsule by mouth three times daily. albuterol HFA (PROAIR HFA) 90 mcg/actuation inhaler Inhale 2 Puffs as instructed every 4 hours as needed. alendronate (FOSAMAX) 70 mg tablet Take 1 tablet by mouth once each week. Take with a full glass of water, on an empty stomach; do NOT lie down for 30minutes. promethazine (PHENERGAN) 25 mg tablet Take 1 tablet by mouth four times daily as needed for Nausea/Vomiting. pantoprazole DR (PROTONIX) 40 mg tablet Take 1 tablet by mouth once daily. (Patient taking differently: Take 40 mg by mouth as needed.) morphine SR (MS CONTIN) 15 mg 12 hr tablet Take 15 mg by mouth twice daily as needed. ketorolac (TORADOL) 30 mg/mL (1 mL) soln Inject 60 mg intramuscularly one time only for 1 dose. COMPOUNDED PRESCRIPTION CPAP adjustmentdx: obstructive sleep apnea No current facility-administered medications for this visit. Medications and allergies reviewed by this provider. SOCIAL HISTORY Social History Marital status: Spouse name: Years of education: Number of children: 3 Occupational History Occupation Employer Comment DISABLED Social History Main Topics Smoking status: Current Every Day Smoker Packs/day: 0.25 Years: 45.00 Types: Cigarettes Smokeless status: Never Used Comment: trying to quit Alcohol use: No Drug use: No Comment: none since 06/2005/cocaine abuse Sexual activity: Not Currently Partners with: Male REVIEW OF SYSTEMS see HPI OBJECTIVE: BP 134/74 (BP Site: Left Arm, BP Position: Sitting, BP Cuff Size: Large Adult) Pulse 106 Temp 37.2 ?C (99 ?F) (Left Tympanic) Resp 16 Wt 83.5 kg (184 lb 1.9 oz) SpO2 97% BMI 33.68 kg/m2. Vital signs reviewed by this provider. PHYSICAL EXAMINATION: General appearance: appears to be in pain. She is squinting and holding her head a lot. Tearful at times discussing home situation. Skin: Skin color, texture, turgor normal, no suspicious rashes or lesions Head: Normocephalic, no masses, lesions, tenderness or abnormalities Eyes: Anicteric sclera. Pupils are equally round and reactive to light. Lungs: Lungs clear to auscultation. No wheezing, rhonchi, rales Heart: RRR without murmur, gallop, or rubs. No ectopy Extremities: No deformities, edema, skin discoloration, clubbing or cyanosis. Good capillary refill. , Pulses: 2+ Appearance: well dressed well groomed, cooperative and pleasant Behavior: good eye contact Speech: fluent and coherent Mood: anxious Affect: appropriate Perceptions: none Thought process: goal directed Thought Content: normal Intelligence level: normal Insight: good Judgment: good ASSESSMENT/PLAN: 1. Headache, unspecified headache type - ICD9: 784.0, ICD10: R51 (primary diagnosis) - encouraged labs today that were previously ordered - still recommend CT- encouraged to call insurance company to inquire - KETOROLAC 30 MG/ML (1 ML) INJECTION SOLUTION- discussed that we will not be able to do this any more moving forward. Will need to get more information from further testing and will consider migraine prophylaxis and PRN treatment as long as no acute process - encouraged ER for red flags 2. Anxiety - ICD9: 300.00, ICD10: F41.9 - Encouraged coping mechanisms and reaching out to people that she finds helpful - Increase HYDROXYZINE HCL 50 MG TABLET - follow up if hydrroxyzine increase is not helpful Lindsey Malone BOOTH USHER Referring Provider: SELF [[id number]] Allergies As of Date: 01/18/2018 Noted Allergy Reaction LATEX 10/21/2013 2 - Rash DARVOCET A500 (PROPOXYPHENE N-CORRIE*08/05/2017 9 - Itching DARVOCET-N 100 (PROPOXYPHENE N-AC*12/11/2009 9 - Itching DILAUDID (HYDROMORPHONE (BULK)) 12/11/2009 9 - Itching DILAUDID (HYDROMORPHONE HCL) 08/05/2017 14 - Other: See Comments Comments: Burning sensation over entire body EES [Other] 11/24/2005 HEPARIN ANALOGUES 06/09/2013 4 - Hives 7 - Swelling KEFLEX (CEPHALEXIN) 11/24/2005 KEFLEX (CEPHALEXIN) 08/05/2017 7 - Swelling 9 - Itching 12 - Shortness of Breath LEVAQUIN (LEVOFLOXACIN) 11/10/2013 9 - Itching LISINOPRIL 01/17/2015 14 - Other: See Comments Comments: flushing OXYCODONE 08/05/2017 9 - Itching OXYCOTIN (OXYCODONE) 12/11/2009 4 - Hives 7 - Swelling 9 - Itching PENICILLIN 08/05/2017 10 - Anaphylaxis Comments: 4 years old PENICILLINS 11/24/2005 7 - Swelling PERCOCET (OXYCODONE-ACETAMINOPHEN)12/11/2009 9 - Itching POLYTRIM (POLYMYXIN B SULF-TRIMET*03/29/2015 7 - Swelling 9 - Itching SULFA (SULFONAMIDE ANTIBIOTICS) 11/24/2005 4 - Hives TEGRETOL (CARBAMAZEPINE) 06/04/2015 1 - Mental Status Change VIBRAMYCIN (DOXYCYCLINE CALCIUM) 08/05/2017 4 - Hives 9 - Itching VICODIN (HYDROCODONE-ACETAMINOPHE*11/24/2005 ADHESIVE TAPE (ROSINS) 03/03/2012 2 - Rash 9 - Itching Date Reviewed: 01/18/2018 Reviewed by: Aleida Ramirez Ma - Fully Assessed Reason for Visit: ER F/U [41] Cmt: chest pain Primary Visit Diagnosis:Headache, unspecified headache type [R51] Other Visit Diagnosis:Anxiety [F41.9] Order(s):hydrOXYzine HCl (ATARAX) 50 mg tabletTake 1 tablet by mouth three times daily as needed for Anxiety.Disp: 90 tabletRfl: 0 ketorolac (TORADOL) 30 mg/mL (1 mL) solnInject 60 mg intramuscularly one time only for 1 dose.Disp: 2 mLRfl: 0 Prescriptions as of 01/18/2018 Sig: ATORVASTATIN 40 MG TABLET Take 2 tablets by mouth once * NITROGLYCERIN 0.4 MG SUBLINGU* Dissolve 1 tablet under the t* METOPROLOL SUCCINATE ER 50 MG* Take 1 tablet by mouth once d* HYDROXYZINE HCL 50 MG TABLET Take 1 tablet by mouth three * METHYLPREDNISOLONE 4 MG TABLE* Follow dosing instructions, t* PANTOPRAZOLE 40 MG TABLET,DEL* TAKE 1 TABLET BY MOUTH EVERY * LORATADINE 10 MG TABLET Take 1 tablet by mouth once d* HYDROCHLOROTHIAZIDE 12.5 MG C* Take 1 capsule by mouth once * FLUTICASONE 200 MCG-VILANTERO* Inhale 1 Inhalation as instru* PREGABALIN 100 MG CAPSULE Take 1 capsule by mouth three* ALBUTEROL SULFATE HFA 90 MCG/* Inhale 2 Puffs as instructed * ALENDRONATE 70 MG TABLET Take 1 tablet by mouth once e* PROMETHAZINE 25 MG TABLET Take 1 tablet by mouth four t* PANTOPRAZOLE 40 MG TABLET,DEL* Take 1 tablet by mouth once d* Patient taking differently: Take 40 mg by mouth as needed. MORPHINE ER 15 MG TABLET,EXTE* Take 15 mg by mouth twice octavio* KETOROLAC 30 MG/ML (1 ML) INJ* Inject 60 mg intramuscularly * COMPOUNDED PRESCRIPTION CPAP adjustment dx: obstru* Medication notes this encounter KETOROLAC 30 MG/ML (1 ML) INJECTION SOLUTION >> Aleida Ramirez Ma 01/18/2018 3:21 PM >> ALEIDA RAMIREZ MA Jan 18, 2018 3:21 PM The patient is here for an injection of Toradol. Dose: 60mg/mL Amount wasted: N/A. Route: Intramuscular Site: left upper quadrant gluteus [employer] Super[employer]: [employer] Lot #: [id number] Expiration Date: 08/04 The date due for the next injection is N/A Aleida Ramirez Ma Problem List As Of Date 01/18/2018 Noted Resolved Cocaine substance abuse [F14.10] 09/04/2014 Essential hypertension, benign [I10] INVALID FOR* Priority: F More... Degenerative disc disease, cervical [M50.30] INVALID FOR* Priority: D More... Depression [F32.9] INVALID FOR* Priority: E More... Dysmetabolic syndrome X [E88.81] INVALID FOR* Osteoporosis [M81.0] INVALID FOR* Cervical disc disorder [M50.90] INVALID FOR* Vitamin D deficiency [E55.9] INVALID FOR* Hyperlipidemia with target LDL less than 70 [E7*INVALID FOR* Priority: G More... ASHD (arteriosclerotic heart disease) [I25.10] INVALID FOR* More... Chest pain [R07.9] INVALID FOR*09/04/2014 Priority: B More... Tobacco abuse [Z72.0] INVALID FOR* Priority: I More... Tobacco abuse counseling [Z71.6] INVALID FOR* Migraine headache [G43.909] INVALID FOR* Priority: H More... SUMMARY [V999.95] INVALID FOR* Priority: A More... Asthma [J45.909] INVALID FOR* Priority: C More... Elevated gastrin level [E16.4] INVALID FOR* Flushing [R23.2] INVALID FOR* Trigeminal neuralgia [G50.0] INVALID FOR* Erosive esophagitis [K22.10] INVALID FOR* Spontaneous ecchymoses [R23.3] INVALID FOR* Lumbar back pain with radiculopathy affecting l*INVALID FOR* Arteriosclerosis of carotid artery [I65.29] INVALID FOR* MELYSSA (obstructive sleep apnea) [G47.33] INVALID FOR* Trigeminal neuralgia of right side of face [G50*INVALID FOR* Obesity (BMI 30-39.9) [E66.9] INVALID FOR* Grief [F43.20] INVALID FOR* Other seasonal allergic rhinitis [J30.2] INVALID FOR* Anxiety and depression [F41.8] INVALID FOR* Sense of smell altered [R43.9] INVALID FOR* Nonintractable headache [R51] INVALID FOR* Non morbid obesity due to excess calories [E66.*INVALID FOR* Fibrocystic breast changes, bilateral [N60.11, *INVALID FOR* Orthostatic hypotension [I95.1] INVALID FOR* Moderate episode of recurrent major depressive *INVALID FOR* 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 Patient tolerated injection well. Please also see mednote. Lot#: [id number] Exp date: 08/04 Aleida Ramirez Ma Prescriptions ordered this encounter Disp Refills Start End HYDROXYZINE HCL 50 MG TABLET 90 t* 0 01/18/2018 04/18/2018 Route: ORAL Sig: Take 1 tablet by mouth three times daily as needed for Anxiety. KETOROLAC 30 MG/ML (1 ML) INJECTION * 2 mL 0 01/18/2018 01/18/2018 Class: Back Office Route: INTRAMUSCULA Sig: Inject 60 mg intramuscularly one time only for 1 dose. Cosign accepted by LINDSEY MALONE[[id number]] on 01/18/2018 3:34 PM Medications Discontinued During This Encounter hydrOXYzine HCl (ATARAX) 25 mg tablet 15 t* 1 01/08/2018 01/18/2018 Route: ORAL Sig: Take 1 tablet by mouth three times daily as needed for Anxiety. Disc: Reason for discontinue is not on file. Disposition: Return if symptoms worsen or fail to improve. Follow-up and Disposition History Recorded Encounter Status:Closed by LINDSEY MALONE on 01/18/18 CBC Collected: 01/18/2018 Status: F Source: [place] 10:41 AM [facility] REPOSITORY TYPE CODE TESTS RESULT OUT OF REFERENCE UNITS RANGE LAB WBC 3.70-11.00 k/uL WBC High 14.47 LAB RBC 3.90-5.20 m/uL RBC 4.93 LAB HGB 11.5-15.5 g/dL Hemoglobin 14.2 LAB HCT 36.0-46.0 % Hematocrit 43.7 LAB MCV 80.0-100.0 fL MCV 88.6 LAB MCH 26.0-34.0 pG MCH 28.8 LAB MCHC 30.5-36.0 g/dL MCHC 32.5 LAB RDWCV 11.5-15.0 % RDW-CV 13.4 LAB PLTCT 150-400 k/uL Platelet High Count 414 LAB MPV 9.0-12.7 fL Low MPV 8.9 LAB ABSNUC <0.01 k/uL Absolute nRBC <0.01 Performed By: #### CBC, PT #### [facility] [employer] [address] [place], [place] [address] PROTIME Collected: 01/18/2018 Status: F Source: [place] 10:41 AM [facility] REPOSITORY TYPE CODE TESTS RESULT OUT OF RANGE REFERENCE UNITS LAB PSEC 9.7-13.0 sec Low PT Sec 9.2 LAB INR 0.9-1.3 Low PT INR <0.9 Result Comment: Vitamin K Antagonist (VKA) Therapeutic Range: INR 2 to 3 (Target INR of 2.5) Note: For patients treated with VKA drugs, such as warfarin, the [employer] 2012 Guideline recommends a therapeutic INR range of 2 to 3 (target INR of 2.5). This recommendation includes high-risk patients with antiphospholipid syndrome with previous arterial or venous thromboembolism, current-generation mechanical or bioprosthetic aortic heart valve replacement. Note: Patients with mechanical aortic valve replacement and additional risk factors for thromboembolic events (atrial fibrillation, previous thromboembolism, LV dysfunction, hypercoagulable conditions) or an older generation mechanical AVR (i.e., ball in-Cage) or any mechanical MVR should have a INR therapeutic range of 2.5 to 3.5 (target INR of 3). Wade GH, et al. Chest 2012, 141:7S-47S Ian RA, et al. [facility] 2017, 70: 252-289 Sample checked for a clot. Performed By: #### CBC, PT #### [facility] [employer] [address], [place] [address] PROGRESS Observed: 01/18/2018 Status: COMPLETED Source: [place] 10:05 AM [facility] OTHER CAMPUS REPOSITORY HNO ID: [id number] Author: Lazaro Vargas Service: (none) Author Type: Physician Type: Progress Notes Filed: 01/18/2018 1:09 PM Note Text: PERTINENT CARDIAC HISTORY ASHD - moderate by cath HL HTN DM Tobaccoism MELYSSA - CPAP ADHERENCE TO GUIDELINES CORRIE-I or ARB for HF with prior LVEF<40 (NQF 0081) - N/A ASA or Plavix for ASHD (NQF 0067) - met Beta madison for ASHD with prior IN or prior LVEF<40 (NQF 0070) - N/A Beta madison for HF with prior LVEF<40 (NQF 0083) - N/A CORRIE-I or ARB for ASHD with DM or prior LVEF<40 (NQF 0066) - N/A Statin therapy for ASHD or FHL or DM - met BMI documented and plan if >25 (NQF 0421) - lifestyle recommendation form Tobacco use screening and referral (NQ 0028) - lifestyle recommendation form Recommendation for whole food, plant based diet - lifestyle recommendation form CLINICAL IMPRESSION/PLAN: Britney Marie has accelerated chest discomfort which is very characteristic of ischemic heart disease. Given the progression of symptoms, I recommend we proceed directly with angiography. Prior angiogram reportedly showed moderate coronary disease. She's been advised to resume metoprolol at 50 milligrams daily. I've encouraged her to continue taking her statin. She has been erratic. She was given a new prescription for sublingual nitroglycerin. I strongly advised her to discontinue smoking. She's been advised to limit her exercise to activities which do not provoke symptoms. Per her request, angiography will be arranged at [facility]. I will see her on a to be arranged basis. She has been encouraged to return to the emergency department for recurrent symptoms. Written and verbal health teaching given to patient, patient verbalizes understanding and agrees with treatment plan. This note was generated using Mape voice recognition system, and there may be some incorrect words, spellings, and punctuation that were not noted in checking the note before saving. DIAGNOSIS FOR VISIT: Chest pain ASHD HISTORY OF PRESENT ILLNESS Britney Marie returns for problem follow-up visit. She reports being under more significant stress recently. She has had increase in the frequency and duration of her chest discomfort. Some of it has been quite intense. It generally begins in the left inframammary area and radiates into the left clavicle and to the back. It is sometimes associated with nausea and mild diaphoresis. She went to the emergency department a few nights ago and admission was recommended , but declined. She has taken nitroglycerin with relief of pain. Pattern has accelerated over the last month. She's also had intermittent episodes of severe headache and is awaiting insurance approval of a brain CT. She has had minimal chest discomfort at rest. She has noted decreased exercise tolerance. She's had minimal edema. She denies syncope, TIAs, amaurosis and claudication. She has noted more palpitations. She reports that she discontinued her metoprolol several months ago . She does not report any intolerable side effects.. ALLERGIES: ALLERGIES Allergen Reactions - Latex Rash - Darvocet A500 [Prop* Itching - Darvocet-N 100 [Pro* Itching - Dilaudid [Hydromorp* Itching - Dilaudid [Hydromorp* Other: See Comments Burning sensation over entire body - Ees [Other] - Heparin Analogues Hives, Swelling - Keflex [Cephalexin] - Keflex [Cephalexin] Swelling, Itching, Shortness of Breath - Levaquin [Levofloxa* Itching - Lisinopril Other: See Comments flushing - Oxycodone Itching - Oxycotin [Oxycodone] Hives, Swelling, Itching - Penicillin Anaphylaxis 4 years old - Penicillins Swelling - Percocet [Oxycodone* Itching - Polytrim [Polymyxin* Swelling, Itching - Sulfa (Sulfonamide * Hives - Tegretol [Carbamaze* Mental Status Change - Vibramycin [Doxycyc* Hives, Itching - Vicodin [Hydrocodon* - Adhesive Tape (Elizabeth* Rash, Itching CURRENT OUTPATIENT MEDICATIONS: methylPREDNISolone (MEDROL, ERIC,) 4 mg Dose-Pack Follow dosing instructions, take with food. pantoprazole DR (PROTONIX) 40 mg tablet TAKE 1 TABLET BY MOUTH EVERY DAY hydrOXYzine HCl (ATARAX) 25 mg tablet Take 1 tablet by mouth three times daily as needed for Anxiety. loratadine (CLARITIN) 10 mg tablet Take 1 tablet by mouth once daily. Hydrochlorothiazide 12.5 mg capsule Take 1 capsule by mouth once daily. fluticasone-vilanterol (BREO ELLIPTA) 200-25 mcg/dose inhaler Inhale 1 Inhalation as instructed once daily. Inhale one puff once daily. DO NOT CLICK OPEN UNTIL READY FOR DOSE pregabalin (LYRICA) 100 mg capsule Take 1 capsule by mouth three times daily. albuterol HFA (PROAIR HFA) 90 mcg/actuation inhaler Inhale 2 Puffs as instructed every 4 hours as needed. alendronate (FOSAMAX) 70 mg tablet Take 1 tablet by mouth once each week. Take with a full glass of water, on an empty stomach; do NOT lie down for 30minutes. atorvastatin (LIPITOR) 40 mg tablet Take 2 tablets by mouth once daily. promethazine (PHENERGAN) 25 mg tablet Take 1 tablet by mouth four times daily as needed for Nausea/Vomiting. nitroglycerin sublingual (NITROQUICK) 0.4 mg SL tablet Dissolve 1 tablet under the tongue as needed. FOR CHEST PAIN. IF NO RELIEF CALL [address] (PROTONIX) 40 mg tablet Take 1 tablet by mouth once daily. morphine SR (MS CONTIN) 15 mg 12 hr tablet Take 15 mg by mouth twice daily as needed. COMPOUNDED PRESCRIPTION CPAP adjustmentdx: obstructive sleep apnea PAST MEDICAL HISTORY Diagnosis Date - ASHD (arteriosclerotic heart disease) 10/14/2011 - Cervical disc disorder 03/13/2011 - Cocaine substance abuse 2003 - COPD (chronic obstructive pulmonary disease) (HCC) - Degenerative disc disease, cervical 2010 - Depression 2010 - Dysmetabolic syndrome X 01/21/2011 - Erosive esophagitis 09/04/2014 - Esophageal reflux Gastroesophageal reflux - Essential hypertension, benign 09/09/2010 no meds currently 03/26 - Fibrocystic breast changes, bilateral 01/28/2017 - Hyperlipidemia LDL goal < 130 2010 - Hyperlipidemia LDL goal < 70 10/14/2011 - Migraine headache 01/23/2012 - Non morbid obesity due to excess calories 08/29/2016 - Obstructive sleep apnea - Osteoporosis 03/13/2011 - Peptic ulcer, unspecified site, unspecified as acute or chronic, without mention of hemorrhage, perforation, or obstruction Peptic ulcer disease - Tobacco abuse 01/23/2012 - Trigeminal neuralgia 12/29/2013 - Trigeminal neuralgia of right side of face 05/03/2015 - Vitamin D deficiency 03/19/2011 PAST SURGICAL HISTORY Procedure Laterality Date - ANTERIOR INTERBODY FUSION, CERVICAL 1992 - APPENDECTOMY - CHOLECYSTECTOMY - COLONOSCOP W/ OR W/O [facility] SPEC 04/30/2010 Dr. Rayshawn Shrestha - COLONOSCOP W/ OR W/O [facility] SPEC 08/10/13 Colonoscopy - EGD W/O OR W/BRUSH/WASH 08/10/13 EGD - LAPAROSCOPY, SURGICAL, ESOPHAGOGAST 01-25-10 LAP KAMILA - LEFT HEART CATH,PERCUTANEOUS 12/17/11 Cardiac cath, L heart, see scanned report - Tonsilectomy - TUBAL LIGATION, - XR CERVICAL FUSION OR 1998 posterior fusion FAMILY HISTORY Problem Relation Age of Onset - Heart Father 35 - Cancer Father - Cancer Mother - Breast Cancer Paternal Grandmother - Breast Cancer Paternal Aunt - Cancer Maternal Uncle LUNG - Heart Maternal Grandmother Social History Marital status: Spouse name: Years of education: Number of children: 3 Occupational History Occupation Employer Comment DISABLED Social History Main Topics Smoking status: Current Every Day Smoker Packs/day: 0.25 Years: 45.00 Types: Cigarettes Smokeless status: Never Used Comment: trying to quit Alcohol use: No Drug use: No Comment: none since 06/2005/cocaine abuse Sexual activity: Not Currently Partners with: Male REVIEW OF SYSTEMS: General: No chills, fever, weight loss, night sweats. Respiratory: No productive cough. Cardiac: As noted above. GI: No melena. : No dysuria. Musculoskeletal: No myalgias. PHYSICAL EXAMINATION: S/he is alert and in no distress. VITAL SIGNS: BP 126/86 Pulse 88 Ht 5' 2 (1.58m) Wt 184 lb 12.8 oz (83.8kg) BMI 33.79 kg/(m2). SHEENT: Skin is warm and dry. No xanthelasmas appreciated. Pharynx is benign. There is no oral cyanosis. Neck: supple. No adenopathy or thyroid enlargement. Chest: Clear to percussion and auscultation. Trachea is midline. Air entry is equal. There is no chest wall tenderness. Cardiac: Regular rhythm. S1 and S2 are normal. PMI is nondisplaced. There is a soft S4 gallop.. No click is heard. Carotids are brisk without bruits. JVP is less than 10 cm. Abdomen: Soft and nontender. There are no pulsatile masses or bruits. No liver enlargement. Bowel sounds are active. Extremities: No edema. Pulses are intact and symmetrical. No clubbing or cyanosis. No femoral bruits. Neurologic: Grossly normal motor and sensory. S/he is alert and oriented x4. Recent EKG showed diffuse ST depression of a mild degree, during chest discomfort. With resolution of pain, ST segment depression resolved. There is no evidence of acute coronary syndrome. She signed out AMA. She was noted to have leukocytosis but no reported symptoms of infection. Echocardiogram from last year was reviewed. She has bilateral carotid disease which has been stable. Electronically Signed: Lazaro Vargas MD January 18, 2018 10:05 AM CC:Mare River III MD CNOV Observed: 01/18/2018 Status: COMPLETED Source: [place] 9:30 AM [facility] OTHER CAMPUS REPOSITORY Office Visit (AGCARDWST) CYNTHIABRITNEY ([id number]) 1960 [address] [facility] Date Time Provider Department 01/18/18 9:30 AM LAZARO VARGAS AGCARDWST During your visit today, we recorded the following information about you: Pulse Blood pressure Weight Height 88/minute 126/86 83.8 kg 1.575 m Lazaro Vargas MD 01/18/2018 1:09 PM Signed PERTINENT CARDIAC HISTORY ASHD - moderate by cath HL HTN DM Tobaccoism MELYSSA - CPAP ADHERENCE TO GUIDELINES CORRIE-I or ARB for HF with prior LVEFANDlt;40 (NQF 0081) - N/A ASA or Plavix for ASHD (NQF 0067) - met Beta madison for ASHD with prior IN or prior LVEFANDlt;40 (NQF 0070) - N/A Beta madison for HF with prior LVEFANDlt;40 (NQF 0083) - N/A CORRIE-I or ARB for ASHD with DM or prior LVEFANDlt;40 (NQF 0066) - N/A Statin therapy for ASHD or FHL or DM - met BMI documented and plan if ANDgt;25 (NQF 0421) - lifestyle recommendation form Tobacco use screening and referral (NQF 0028) - lifestyle recommendation form Recommendation for whole food, plant based diet - lifestyle recommendation form CLINICAL IMPRESSION/PLAN: Britney Mraie has accelerated chest discomfort which is very characteristic of ischemic heart disease. Given the progression of symptoms, I recommend we proceed directly with angiography. Prior angiogram reportedly showed moderate coronary disease. She's been advised to resume metoprolol at 50 milligrams daily. I've encouraged her to continue taking her statin. She has been erratic. She was given a new prescription for sublingual nitroglycerin. I strongly advised her to discontinue smoking. She's been advised to limit her exercise to activities which do not provoke symptoms. Per her request, angiography will be arranged at [facility]. I will see her on a to be arranged basis. She has been encouraged to return to the emergency department for recurrent symptoms. Written and verbal health teaching given to patient, patient verbalizes understanding and agrees with treatment plan. This note was generated using Mape voice recognition system, and there may be some incorrect words, spellings, and punctuation that were not noted in checking the note before saving. DIAGNOSIS FOR VISIT: Chest pain ASHD HISTORY OF PRESENT ILLNESS Britney Marie returns for problem follow-up visit. She reports being under more significant stress recently. She has had increase in the frequency and duration of her chest discomfort. Some of it has been quite intense. It generally begins in the left inframammary area and radiates into the left clavicle and to the back. It is sometimes associated with nausea and mild diaphoresis. She went to the emergency department a few nights ago and admission was recommended , but declined. She has taken nitroglycerin with relief of pain. Pattern has accelerated over the last month. She's also had intermittent episodes of severe headache and is awaiting insurance approval of a brain CT. She has had minimal chest discomfort at rest. She has noted decreased exercise tolerance. She's had minimal edema. She denies syncope, TIAs, amaurosis and claudication. She has noted more palpitations. She reports that she discontinued her metoprolol several months ago . She does not report any intolerable side effects.. ALLERGIES: ALLERGIES Allergen Reactions - Latex Rash - Darvocet A500 [Prop* Itching - Darvocet-N 100 [Pro* Itching - Dilaudid [Hydromorp* Itching - Dilaudid [Hydromorp* Other: See Comments Burning sensation over entire body - Ees [Other] - Heparin Analogues Hives, Swelling - Keflex [Cephalexin] - Keflex [Cephalexin] Swelling, Itching, Shortness of Breath - Levaquin [Levofloxa* Itching - Lisinopril Other: See Comments flushing - Oxycodone Itching - Oxycotin [Oxycodone] Hives, Swelling, Itching - Penicillin Anaphylaxis 4 years old - Penicillins Swelling - Percocet [Oxycodone* Itching - Polytrim [Polymyxin* Swelling, Itching - Sulfa (Sulfonamide * Hives - Tegretol [Carbamaze* Mental Status Change - Vibramycin [Doxycyc* Hives, Itching - Vicodin [Hydrocodon* - Adhesive Tape (Elizabeth* Rash, Itching CURRENT OUTPATIENT MEDICATIONS: methylPREDNISolone (MEDROL, ERIC,) 4 mg Dose-Pack Follow dosing instructions, take with food. pantoprazole DR (PROTONIX) 40 mg tablet TAKE 1 TABLET BY MOUTH EVERY DAY hydrOXYzine HCl (ATARAX) 25 mg tablet Take 1 tablet by mouth three times daily as needed for Anxiety. loratadine (CLARITIN) 10 mg tablet Take 1 tablet by mouth once daily. Hydrochlorothiazide 12.5 mg capsule Take 1 capsule by mouth once daily. fluticasone-vilanterol (BREO ELLIPTA) 200-25 mcg/dose inhaler Inhale 1 Inhalation as instructed once daily. Inhale one puff once daily. DO NOT CLICK OPEN UNTIL READY FOR DOSE pregabalin (LYRICA) 100 mg capsule Take 1 capsule by mouth three times daily. albuterol HFA (PROAIR HFA) 90 mcg/actuation inhaler Inhale 2 Puffs as instructed every 4 hours as needed. alendronate (FOSAMAX) 70 mg tablet Take 1 tablet by mouth once each week. Take with a full glass of water, on an empty stomach; do NOT lie down for 30minutes. atorvastatin (LIPITOR) 40 mg tablet Take 2 tablets by mouth once daily. promethazine (PHENERGAN) 25 mg tablet Take 1 tablet by mouth four times daily as needed for Nausea/Vomiting. nitroglycerin sublingual (NITROQUICK) 0.4 mg SL tablet Dissolve 1 tablet under the tongue as needed. FOR CHEST PAIN. IF NO RELIEF CALL [address] (PROTONIX) 40 mg tablet Take 1 tablet by mouth once daily. morphine SR (MS CONTIN) 15 mg 12 hr tablet Take 15 mg by mouth twice daily as needed. COMPOUNDED PRESCRIPTION CPAP adjustmentdx: obstructive sleep apnea PAST MEDICAL HISTORY Diagnosis Date - ASHD (arteriosclerotic heart disease) 10/14/2011 - Cervical disc disorder 03/13/2011 - Cocaine substance abuse 2003 - COPD (chronic obstructive pulmonary disease) (HCC) - Degenerative disc disease, cervical 2010 - Depression 2010 - Dysmetabolic syndrome X 01/21/2011 - Erosive esophagitis 09/04/2014 - Esophageal reflux Gastroesophageal reflux - Essential hypertension, benign 09/09/2010 no meds currently 03/26 - Fibrocystic breast changes, bilateral 01/28/2017 - Hyperlipidemia LDL goal ANDlt; 130 2010 - Hyperlipidemia LDL goal ANDlt; 70 10/14/2011 - Migraine headache 01/23/2012 - Non morbid obesity due to excess calories 08/29/2016 - Obstructive sleep apnea - Osteoporosis 03/13/2011 - Peptic ulcer, unspecified site, unspecified as acute or chronic, without mention of hemorrhage, perforation, or obstruction Peptic ulcer disease - Tobacco abuse 01/23/2012 - Trigeminal neuralgia 12/29/2013 - Trigeminal neuralgia of right side of face 05/03/2015 - Vitamin D deficiency 03/19/2011 PAST SURGICAL HISTORY Procedure Laterality Date - ANTERIOR INTERBODY FUSION, CERVICAL 1992 - APPENDECTOMY - CHOLECYSTECTOMY - COLONOSCOP W/ OR W/O [facility] SPEC 04/30/2010 Dr. Rayshawn Shrestha - COLONOSCOP W/ OR W/O [facility] SPEC 08/10/13 Colonoscopy - EGD W/O OR W/BRUSH/WASH 08/10/13 EGD - LAPAROSCOPY, SURGICAL, ESOPHAGOGAST 3-12-10 LAP KAMILA - LEFT HEART CATH,PERCUTANEOUS 12/17/11 Cardiac cath, L heart, see scanned report - Tonsilectomy - TUBAL LIGATION, - XR CERVICAL FUSION OR 1998 posterior fusion FAMILY HISTORY Problem Relation Age of Onset - Heart Father 35 - Cancer Father - Cancer Mother - Breast Cancer Paternal Grandmother - Breast Cancer Paternal Aunt - Cancer Maternal Uncle LUNG - Heart Maternal Grandmother Social History Marital status: Spouse name: Years of education: Number of children: 3 Occupational History Occupation Employer Comment DISABLED Social History Main Topics Smoking status: Current Every Day Smoker Packs/day: 0.25 Years: 45.00 Types: Cigarettes Smokeless status: Never Used Comment: trying to quit Alcohol use: No Drug use: No Comment: none since 06/2005/cocaine abuse Sexual activity: Not Currently Partners with: Male REVIEW OF SYSTEMS: General: No chills, fever, weight loss, night sweats. Respiratory: No productive cough. Cardiac: As noted above. GI: No melena. : No dysuria. Musculoskeletal: No myalgias. PHYSICAL EXAMINATION: S/he is alert and in no distress. VITAL SIGNS: BP 126/86 Pulse 88 Ht 5' 2ANDquot; (1.58m) Wt 184 lb 12.8 oz (83.8kg) BMI 33.79 kg/(m2). SHEENT: Skin is warm and dry. No xanthelasmas appreciated. Pharynx is benign. There is no oral cyanosis. Neck: supple. No adenopathy or thyroid enlargement. Chest: Clear to percussion and auscultation. Trachea is midline. Air entry is equal. There is no chest wall tenderness. Cardiac: Regular rhythm. S1 and S2 are normal. PMI is nondisplaced. There is a soft S4 gallop.. No click is heard. Carotids are brisk without bruits. JVP is less than 10 cm. Abdomen: Soft and nontender. There are no pulsatile masses or bruits. No liver enlargement. Bowel sounds are active. Extremities: No edema. Pulses are intact and symmetrical. No clubbing or cyanosis. No femoral bruits. Neurologic: Grossly normal motor and sensory. S/he is alert and oriented x4. Recent EKG showed diffuse ST depression of a mild degree, during chest discomfort. With resolution of pain, ST segment depression resolved. There is no evidence of acute coronary syndrome. She signed out AMA. She was noted to have leukocytosis but no reported symptoms of infection. Echocardiogram from last year was reviewed. She has bilateral carotid disease which has been stable. Electronically Signed: Lazaro Vargas MD January 18, 2018 10:05 AM CC:Mare River III MD Referring Provider: MARE RIVER III [[id number]] Allergies As of Date: 01/18/2018 Noted Allergy Reaction LATEX 10/21/2013 2 - Rash DARVOCET A500 (PROPOXYPHENE N-CORRIE*08/05/2017 9 - Itching DARVOCET-N 100 (PROPOXYPHENE N-AC*12/11/2009 9 - Itching DILAUDID (HYDROMORPHONE (BULK)) 12/11/2009 9 - Itching DILAUDID (HYDROMORPHONE HCL) 08/05/2017 14 - Other: See Comments Comments: Burning sensation over entire body EES [Other] 11/24/2005 HEPARIN ANALOGUES 06/09/2013 4 - Hives 7 - Swelling KEFLEX (CEPHALEXIN) 11/24/2005 KEFLEX (CEPHALEXIN) 08/05/2017 7 - Swelling 9 - Itching 12 - Shortness of Breath LEVAQUIN (LEVOFLOXACIN) 11/10/2013 9 - Itching LISINOPRIL 01/17/2015 14 - Other: See Comments Comments: flushing OXYCODONE 08/05/2017 9 - Itching OXYCOTIN (OXYCODONE) 12/11/2009 4 - Hives 7 - Swelling 9 - Itching PENICILLIN 08/05/2017 10 - Anaphylaxis Comments: 4 years old PENICILLINS 11/24/2005 7 - Swelling PERCOCET (OXYCODONE-ACETAMINOPHEN)12/11/2009 9 - Itching POLYTRIM (POLYMYXIN B SULF-TRIMET*03/29/2015 7 - Swelling 9 - Itching SULFA (SULFONAMIDE ANTIBIOTICS) 11/24/2005 4 - Hives TEGRETOL (CARBAMAZEPINE) 06/04/2015 1 - Mental Status Change VIBRAMYCIN (DOXYCYCLINE CALCIUM) 08/05/2017 4 - Hives 9 - Itching VICODIN (HYDROCODONE-ACETAMINOPHE*11/24/2005 ADHESIVE TAPE (ROSINS) 03/03/2012 2 - Rash 9 - Itching Date Reviewed: 01/18/2018 Reviewed by: Olga Lidia Cardenas - Fully Assessed Reason for Visit: Follow Up [171] Primary Visit Diagnosis:Chest pain, unspecified type [R07.9] Other Visit Diagnoses:Hypertension, essential [I10] Other hyperlipidemia [E78.4] Hyperlipidemia with target LDL less than 70 [E78.5] Order(s):LEFT HEART CATH,PERCUTANEOUS [[id number]] Order #: [id number]: 1 CBC [SQCBC] Order #: [id number] FUTURE atorvastatin (LIPITOR) 40 mg tabletTake 2 tablets by mouth once daily.Disp: 180 tabletRfl: 3 nitroglycerin sublingual (NITROQUICK) 0.4 mg SL tabletDissolve 1 tablet under the tongue as needed. FOR CHEST PAIN. IF NO RELIEF CALL 911Disp: 1 Bottle of 25Rfl: 3 metoprolol succinate ER (TOPROL XL) 50 mg 24 hr tabletTake 1 tablet by mouth once daily.Disp: 30 tabletRfl: 12 PROTHROMBIN TIME/PT [SQPT] Order #: [id number] FUTURE Prescriptions as of 01/18/2018 Sig: ATORVASTATIN 40 MG TABLET Take 2 tablets by mouth once * NITROGLYCERIN 0.4 MG SUBLINGU* Dissolve 1 tablet under the t* METHYLPREDNISOLONE 4 MG TABLE* Follow dosing instructions, t* PANTOPRAZOLE 40 MG TABLET,DEL* TAKE 1 TABLET BY MOUTH EVERY * HYDROXYZINE HCL 25 MG TABLET Take 1 tablet by mouth three * LORATADINE 10 MG TABLET Take 1 tablet by mouth once d* HYDROCHLOROTHIAZIDE 12.5 MG C* Take 1 capsule by mouth once * FLUTICASONE 200 MCG-VILANTERO* Inhale 1 Inhalation as instru* PREGABALIN 100 MG CAPSULE Take 1 capsule by mouth three* ALBUTEROL SULFATE HFA 90 MCG/* Inhale 2 Puffs as instructed * ALENDRONATE 70 MG TABLET Take 1 tablet by mouth once e* PROMETHAZINE 25 MG TABLET Take 1 tablet by mouth four t* PANTOPRAZOLE 40 MG TABLET,DEL* Take 1 tablet by mouth once d* Patient taking differently: Take 40 mg by mouth as needed. MORPHINE ER 15 MG TABLET,EXTE* Take 15 mg by mouth twice octavio* METOPROLOL SUCCINATE ER 50 MG* Take 1 tablet by mouth once d* COMPOUNDED PRESCRIPTION CPAP adjustment dx: obstru* Problem List As Of Date 01/18/2018 Noted Resolved Cocaine substance abuse [F14.10] 09/04/2014 Essential hypertension, benign [I10] INVALID FOR* Priority: F More... Degenerative disc disease, cervical [M50.30] INVALID FOR* Priority: D More... Depression [F32.9] INVALID FOR* Priority: E More... Dysmetabolic syndrome X [E88.81] INVALID FOR* Osteoporosis [M81.0] INVALID FOR* Cervical disc disorder [M50.90] INVALID FOR* Vitamin D deficiency [E55.9] INVALID FOR* Hyperlipidemia with target LDL less than 70 [E7*INVALID FOR* Priority: G More... ASHD (arteriosclerotic heart disease) [I25.10] INVALID FOR* More... Chest pain [R07.9] INVALID FOR*09/04/2014 Priority: B More... Tobacco abuse [Z72.0] INVALID FOR* Priority: I More... Tobacco abuse counseling [Z71.6] INVALID FOR* Migraine headache [G43.909] INVALID FOR* Priority: H More... SUMMARY [V999.95] INVALID FOR* Priority: A More... Asthma [J45.909] INVALID FOR* Priority: C More... Elevated gastrin level [E16.4] INVALID FOR* Flushing [R23.2] INVALID FOR* Trigeminal neuralgia [G50.0] INVALID FOR* Erosive esophagitis [K22.10] INVALID FOR* Spontaneous ecchymoses [R23.3] INVALID FOR* Lumbar back pain with radiculopathy affecting l*INVALID FOR* Arteriosclerosis of carotid artery [I65.29] INVALID FOR* MELYSSA (obstructive sleep apnea) [G47.33] INVALID FOR* Trigeminal neuralgia of right side of face [G50*INVALID FOR* Obesity (BMI 30-39.9) [E66.9] INVALID FOR* Grief [F43.20] INVALID FOR* Other seasonal allergic rhinitis [J30.2] INVALID FOR* Anxiety and depression [F41.8] INVALID FOR* Sense of smell altered [R43.9] INVALID FOR* Nonintractable headache [R51] INVALID FOR* Non morbid obesity due to excess calories [E66.*INVALID FOR* Fibrocystic breast changes, bilateral [N60.11, *INVALID FOR* Orthostatic hypotension [I95.1] INVALID FOR* Moderate episode of recurrent major depressive *INVALID FOR* 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 NITROGLYCERIN 0.4 MG SUBLINGUAL TABL* 1 Nick* 3 01/18/2018 Route: SUBLINGUAL Sig: Dissolve 1 tablet under the tongue as needed. FOR CHEST PAIN. IF NO RELIEF CALL 911 METOPROLOL SUCCINATE ER 50 MG TABLET* 30 t* 12 01/18/2018 Route: ORAL Sig: Take 1 tablet by mouth once daily. Medications Discontinued During This Encounter atorvastatin (LIPITOR) 40 mg tablet 180 * 3 11/28/2016 01/18/2018 Class: Med Update Route: ORAL Sig: Take 2 tablets by mouth once daily. Disc: Reason for discontinue is not on file. nitroglycerin sublingual (NITROQUICK* 1 Nick* 3 10/27/2016 01/18/2018 Route: SUBLINGUAL Sig: Dissolve 1 tablet under the tongue as needed. FOR CHEST PAIN. IF NO RELIEF CALL 911 Disc: Reason for discontinue is not on file. Encounter Status:Closed by LAZARO VARGAS MD on 01/18/18 CNPN Observed: 01/18/2018 Status: COMPLETED Source: [place] 12:00 AM CLINIC OTHER CAMPUS REPOSITORY Telephone (AGCARDPOB) BRITNEY MARIE ([id number]) 1960 F CHT Date Time Provider Department 01/18/18 ARETHA DOMINIQUE AGCARDPOB During your visit today, we recorded the following information about you: Chicho Morales RN 01/18/2018 1:[address] Vargas office calls to request pt be scheduled for heart cath. I called pt. Agreeable to schedule. Placed on dr Dominique's [facility] 01/25/18 outpt schedule per pt request. Instructions reviewed including arrival to [facility]V Entrance 3/12 AM according to the time recommended by staff on 3/9 pm. NPO after MN. Pt will take ASA 325mg along with usual AM HCTZ. She will take inhalers if needed. Questions answered. Pt voices understanding. Deisy [facility] farm labor contractor notified. MURALI Eli 01/19/2018 8:14 AM Signed Printed. Will auth, Allergies As of Date: 01/18/2018 Noted Allergy Reaction LATEX 10/21/2013 2 - Rash DARVOCET A500 (PROPOXYPHENE N-CORRIE*08/05/2017 9 - Itching DARVOCET-N 100 (PROPOXYPHENE N-AC*12/11/2009 9 - Itching DILAUDID (HYDROMORPHONE (BULK)) 12/11/2009 9 - Itching DILAUDID (HYDROMORPHONE HCL) 08/05/2017 14 - Other: See Comments Comments: Burning sensation over entire body EES [Other] 11/24/2005 HEPARIN ANALOGUES 06/09/2013 4 - Hives 7 - Swelling KEFLEX (CEPHALEXIN) 11/24/2005 KEFLEX (CEPHALEXIN) 08/05/2017 7 - Swelling 9 - Itching 12 - Shortness of Breath LEVAQUIN (LEVOFLOXACIN) 11/10/2013 9 - Itching LISINOPRIL 01/17/2015 14 - Other: See Comments Comments: flushing OXYCODONE 08/05/2017 9 - Itching OXYCOTIN (OXYCODONE) 12/11/2009 4 - Hives 7 - Swelling 9 - Itching PENICILLIN 08/05/2017 10 - Anaphylaxis Comments: 4 years old PENICILLINS 11/24/2005 7 - Swelling PERCOCET (OXYCODONE-ACETAMINOPHEN)12/11/2009 9 - Itching POLYTRIM (POLYMYXIN B SULF-TRIMET*03/29/2015 7 - Swelling 9 - Itching SULFA (SULFONAMIDE ANTIBIOTICS) 11/24/2005 4 - Hives TEGRETOL (CARBAMAZEPINE) 06/04/2015 1 - Mental Status Change VIBRAMYCIN (DOXYCYCLINE CALCIUM) 08/05/2017 4 - Hives 9 - Itching VICODIN (HYDROCODONE-ACETAMINOPHE*11/24/2005 ADHESIVE TAPE (ROSINS) 03/03/2012 2 - Rash 9 - Itching Date Reviewed: 01/18/2018 Reviewed by: Aleida Ramirez Ma - Fully Assessed Reason for Visit: Preparations For Procedures [899] Prescriptions as of 01/18/2018 Sig: ATORVASTATIN 40 MG TABLET Take 2 tablets by mouth once * NITROGLYCERIN 0.4 MG SUBLINGU* Dissolve 1 tablet under the t* METOPROLOL SUCCINATE ER 50 MG* Take 1 tablet by mouth once d* METHYLPREDNISOLONE 4 MG TABLE* Follow dosing instructions, t* PANTOPRAZOLE 40 MG TABLET,DEL* TAKE 1 TABLET BY MOUTH EVERY * X HYDROXYZINE HCL 25 MG TABLET Take 1 tablet by mouth three * LORATADINE 10 MG TABLET Take 1 tablet by mouth once d* HYDROCHLOROTHIAZIDE 12.5 MG C* Take 1 capsule by mouth once * FLUTICASONE 200 MCG-VILANTERO* Inhale 1 Inhalation as instru* PREGABALIN 100 MG CAPSULE Take 1 capsule by mouth three* COMPOUNDED PRESCRIPTION CPAP adjustment dx: obstru* ALBUTEROL SULFATE HFA 90 MCG/* Inhale 2 Puffs as instructed * ALENDRONATE 70 MG TABLET Take 1 tablet by mouth once e* PROMETHAZINE 25 MG TABLET Take 1 tablet by mouth four t* PANTOPRAZOLE 40 MG TABLET,DEL* Take 1 tablet by mouth once d* Patient taking differently: Take 40 mg by mouth as needed. MORPHINE ER 15 MG TABLET,EXTE* Take 15 mg by mouth twice octavio* Problem List As Of Date 01/18/2018 Noted Resolved Cocaine substance abuse [F14.10] 09/04/2014 Essential hypertension, benign [I10] INVALID FOR* Priority: F More... Degenerative disc disease, cervical [M50.30] INVALID FOR* Priority: D More... Depression [F32.9] INVALID FOR* Priority: E More... Dysmetabolic syndrome X [E88.81] INVALID FOR* Osteoporosis [M81.0] INVALID FOR* Cervical disc disorder [M50.90] INVALID FOR* Vitamin D deficiency [E55.9] INVALID FOR* Hyperlipidemia with target LDL less than 70 [E7*INVALID FOR* Priority: G More... ASHD (arteriosclerotic heart disease) [I25.10] INVALID FOR* More... Chest pain [R07.9] INVALID FOR*09/04/2014 Priority: B More... Tobacco abuse [Z72.0] INVALID FOR* Priority: I More... Tobacco abuse counseling [Z71.6] INVALID FOR* Migraine headache [G43.909] INVALID FOR* Priority: H More... SUMMARY [V999.95] INVALID FOR* Priority: A More... Asthma [J45.909] INVALID FOR* Priority: C More... Elevated gastrin level [E16.4] INVALID FOR* Flushing [R23.2] INVALID FOR* Trigeminal neuralgia [G50.0] INVALID FOR* Erosive esophagitis [K22.10] INVALID FOR* Spontaneous ecchymoses [R23.3] INVALID FOR* Lumbar back pain with radiculopathy affecting l*INVALID FOR* Arteriosclerosis of carotid artery [I65.29] INVALID FOR* MELYSSA (obstructive sleep apnea) [G47.33] INVALID FOR* Trigeminal neuralgia of right side of face [G50*INVALID FOR* Obesity (BMI 30-39.9) [E66.9] INVALID FOR* Grief [F43.20] INVALID FOR* Other seasonal allergic rhinitis [J30.2] INVALID FOR* Anxiety and depression [F41.8] INVALID FOR* Sense of smell altered [R43.9] INVALID FOR* Nonintractable headache [R51] INVALID FOR* Non morbid obesity due to excess calories [E66.*INVALID FOR* Fibrocystic breast changes, bilateral [N60.11, *INVALID FOR* Orthostatic hypotension [I95.1] INVALID FOR* Moderate episode of recurrent major depressive *INVALID FOR* 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] INVALID FOR* Incisional hernia, without obstruction or gangr*INVALID FOR* Encounter Status:Closed by CHICHO MORALES on 01/18/18 HOSP Observed: 01/18/2018 Status: COMPLETED Source: [place] 12:00 AM CLINIC OTHER CAMPUS REPOSITORY Patient:Britney Marie MRN: <[id number]> Height:5' 2(1.575 m) Weight:183 lb 12.8 oz (83.371 kg) Outpatient Medications as of 01/25/18: aspirin 325 mg tablet atorvastatin (LIPITOR) 80 mg tablet nitroglycerin sublingual (NITROQUICK) 0.4 mg SL tablet metoprolol succinate ER (TOPROL XL) 50 mg 24 hr tablet hydrOXYzine HCl (ATARAX) 50 mg tablet loratadine (CLARITIN) 10 mg tablet Hydrochlorothiazide 12.5 mg capsule fluticasone-vilanterol (BREO ELLIPTA) 200-25 mcg/dose inhaler albuterol HFA (PROAIR HFA) 90 mcg/actuation inhaler alendronate (FOSAMAX) [address] (PROTONIX) 40 mg tablet morphine SR (MS CONTIN) 15 mg [address] (PROTONIX) 40 mg tablet pregabalin (LYRICA) 100 mg capsule COMPOUNDED PRESCRIPTION promethazine (PHENERGAN) 25 mg tablet Admission/Clinic Administered Medications as of 01/25/18: NaCl 0.9% iv infusion Problem List: Essential hypertension, benign [I10] Degenerative disc disease, cervical [M50.30] Depression [F32.9] Dysmetabolic syndrome X [E88.81] Osteoporosis [M81.0] Cervical disc disorder [M50.90] Vitamin D deficiency [E55.9] Hyperlipidemia with target LDL less than 70 [E78.5] ASHD (arteriosclerotic heart disease) [I25.10] Tobacco abuse [Z72.0] Tobacco abuse counseling [Z71.6] Migraine headache [G43.909] SUMMARY [V999.95] Asthma [J45.909] Elevated gastrin level [E16.4] Flushing [R23.2] Trigeminal neuralgia [G50.0] Erosive esophagitis [K22.10] Spontaneous ecchymoses [R23.3] Lumbar back pain with radiculopathy affecting left lower extremity [M54.17] Arteriosclerosis of carotid artery [I65.29] MELYSSA (obstructive sleep apnea) [G47.33] Trigeminal neuralgia of right side of face [G50.0] Obesity (BMI 30-39.9) [E66.9] Grief [F43.20] Other seasonal allergic rhinitis [J30.2] Anxiety and depression [F41.8] Sense of smell altered [R43.9] Nonintractable headache [R51] Non morbid obesity due to excess calories [E66.09] Fibrocystic breast changes, bilateral [N60.11, N60.12] Orthostatic hypotension [I95.1] Moderate episode of recurrent major depressive disorder (HCC) [F33.1] 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] Incisional hernia, without obstruction or gangrene [K43.2] Allergies: Latex Darvocet A500 [Propoxyphene N-Acetaminophen] Darvocet-N 100 [Propoxyphene N-Acetaminophen] Dilaudid [Hydromorphone Hcl] EES [Other] Heparin Analogues Keflex [Cephalexin] Levaquin [Levofloxacin] Lisinopril Oxycodone Oxycotin [Oxycodone] Penicillin Percocet [Oxycodone-Acetaminophen] Polytrim [Polymyxin B Sulf-Trimethoprim] Sulfa (Sulfonamide Antibiotics) Tegretol [Carbamazepine] Vibramycin [Doxycycline Calcium] Vicodin [Hydrocodone-Acetaminophen] Adhesive Tape (Rosins) Date Verified: 01/25/18 Lab Values Lab Value Units Date High Low POTA* 4.1 mmol/L 01/07/2018 5.1 3.7 ALMA* 43.0 % 01/22/2018 46.0 36.0 Progress Notes ([facility]): Arpit Grigsby, RN, RN 01/19/2018 1:39 PM Signed If patient requires taking two 40mg tablets of atorvastatin that would need to be prior authorized. If she can take an 80mg tablet please review order, thank you. Lazaro Vargas MD 01/19/2018 3:30 PM Signed Labs are due. Lazaro Vargas MD The following approved medication requests have been transmitted electronically. Signed Prescriptions Disp Refills atorvastatin (LIPITOR) 80 mg tablet 90 tablet 3 Sig: Take 1 tablet by mouth once daily. TIFFANIE: No Authorizing Provider: LAZARO VARGAS MD Adam Gilmor RN, RN 01/19/2018 3:48 PM Signed Patient verbalizes understanding. Progress Notes ([facility]): Chicho Morales RN 01/18/2018 1:[address] Vargas office calls to request pt be scheduled for heart cath. I called pt. Agreeable to schedule. Placed on dr Dominique's 01/25/18 outpt schedule per pt request. Instructions reviewed including arrival to [facility] Entrance 3/12 AM according to the time recommended by staff on 3/9 pm. NPO after MN. Pt will take ASA 325mg along with usual AM HCTZ. She will take inhalers if needed. Questions answered. Pt voices understanding. Deisy [facility] farm labor contractor notified. Chicho Morales RN Previous Version Samina Bobby 01/19/2018 8:14 AM Signed Printed. [facility] EMERGENCY DEPARTMENT Observed: 01/16/2018 Status: F Source: [place] SUMMARY 12:55 AM [facility] REPOSITORY [facility] Medical Records Department [address] [place] [address] Emergency Department Summary 01/15/182047 MR#: [id number] Acct: [id number] Name: BRITNEY MARIE Rep #: [id number] : 1960 57 From: Enrique Bradford MD PCP: Mare River III, MD Status: DEP ER - ER Visit Summary Date of Service: 01/15/18 Chief Complaint: Chest pain History of Present Illness: The patient is a [address] Mare River III and Dr. Shankar. She reports that he she has chest pain again at 1230 this afternoon while she was arguing with her son. She reports that it is a pressure in her back, lower chest on the left, and left shoulder. It was 10 out of 10 at worst and 710 currently. Is worsened by exertion. She taken nitroglycerin with temporary relief. She reports she was nauseated, short of breath, diaphoretic with this. Patient reports that over the course the past month she has had increased dyspnea on exertion and chest pain with exertion. Physical Examination: Vitals: Stable. Afebrile. General: Well-nourished and well-developed. Head: Normocephalic atraumatic. Neck: Supple, no lymphadenopathy. No JVD. Nontender. Cardiovascular: Regular rate and rhythm. No murmurs. Respiratory: No respiratory distress. Clear to auscultation bilaterally. Abdominal: Soft, nontender, nondistended, normal bowel sounds. No guarding, rebound, or peritoneal signs. Back: Nontender. Extremities: Nontender, no edema. Skin: Normal color, no rash. Neurologic: Alert and oriented 3. Cranial nerves II through XII are intact. Normal strength and sensation. Psych: Normal affect. Test Results: Chest x-ray is normal. EKG is sinus tach 1 with [address] changes. This is unchanged from February 05, 2017. Repeat EKG is unchanged. CBC is marked for a white count of 22, 7 neutrophils 84, lymphocytes of 10. Chem-7 is more for chloride 108 and glucose of 110. UA is normal. Troponin is negative. Repeat troponin is negative. D-dimer is negative. TSH is normal. Emergency Department Course and Treatment: Patient was treated with aspirin and a dose of morphine IV. She is resting comfortably. I had a prolonged discussion with her about being admitted to the hospital on the concerning nature of the character of her chest pain. She is refusing to stay. She will be signed out AGAINST MEDICAL ADVICE. Treatment Plan: I discussed her with Dr. Shankar who also feels that she should stay in the hospital back in and talk with her about that. She still refuses to stay. She is instructed to follow-up with him as soon as possible. Return to the emergency department for any worsening or change in the character of her pain or even if she just changes her mind. Disposition: Left AGAINST MEDICAL ADVICE Impression: 1. Chest pain. 2. DOMINIC score of 1. 3. Left AMA. 4. Leukocytosis, uncertain cause. This note was generated with Mape dictation software. It may contain incorrect words, spelling, and punctuation that were not noted in review of the chart prior to signing ED Disposition - Plan for ED Patient: Disposition: Against Medical Advice Chief Complaint: Chest Pain Instructions: ED Chest Pain Atypical Unkn Cause Referrals: Lazaro Vargas MD [STAFF PHYSICIAN] - As soon as possible What to do if you have Problems For any increased pain, shortness of breath, bleeding, nausea or vomiting, chest pain, or any unexpected problems, contact your Primary Care Provider. Call [facility] ([phone]) or report to the closest Emergency Room. Call 911 if necessary. 01/16/18 0055 <Electronically signed by Enrique Bradford MD> Date Enrique Bradford MD Cosigner Signature (If Indicated): Date CC: Mare River III, MD TROPONIN-I Collected: 01/15/2018 Status: F Source: [place] 7:32 PM [facility] REPOSITORY Order Comment: Comments: Should be drawn 3H after initial Troponin obtained 'TROP' Serial specimen #1, #2, #3, or #4: 2 TYPE CODE TESTS RESULT OUT OF RANGE REFERENCE UNITS LAB L501.4010 <0.06 ng/mL Normal < 0.02 TROPONIN-I Result Comment: TROPONIN-I EXPECTED VALUES <0.05 NEGATIVE 0.06 - 0.59 AT RISK OF IN > OR = 0.60 SUGGEST IN Performed By: #### L501.4010 #### [facility] [address] [facility] [place], [place], [address] URINALYSIS, COMPLETE Collected: 01/15/2018 Status: F Source: [place] 7:15 PM [facility] REPOSITORY Order Comment: Order Date: 01/15/18 Has pt arrived? Y How was Urine Obtained? BOROUGH COORDINATOR TO SPECIFY TYPE CODE TESTS RESULT OUT OF RANGE REFERENCE UNITS LAB L400.3000 Yellow COLOR Normal Yellow LAB L400.3050 Clear Normal CLARITY Sl. Cloudy LAB L400.3200 Normal mg/dl Normal GLUCOSE, UR Normal LAB L400.3300 Negative mg/dL Normal BILIRUBIN URINE Negative LAB L400.3400 Negative mg/dl Normal KETONE UR Negative LAB L400.3465 1.002-1.030 Normal SP.GR. DIPSTX 1.010 LAB L400.3550 5.0 - 8.0 pH UR Normal 6.0 LAB L400.3600 Negative mg/dl PROT Normal DIPSTX Negative LAB L400.3700 Normal mg/dl Normal UROBILI Normal LAB L400.3750 Negative Normal NITRITE UR Negative LAB L400.3780 Negative /ul Normal OCCULT BLOOD-UR Negative LAB L400.3800 Negative /ul LEUK Normal ESTERASE Negative LAB L400.4050 0-5 /hpf WBC 0 Normal SEEN LAB L400.4100 0-5 /hpf 0 Normal RBC-UA SEEN LAB L400.4150 5-10 /hpf SQUAM Normal EPI 0-5 SEEN LAB L400.4300 None Seen /hpf 0 Normal BACTERIA SEEN LAB L400.4350 <or=2+ /hpf 0 Normal MUCUS, URINE SEEN Performed By: #### L400.0001 #### [facility] [address] [facility], [place], [address] CHEST 1 VIEW Observed: 01/15/2018 Status: F Source: [place] (PORTABLE) 4:46 PM [facility] REPOSITORY [facility] Imaging Services [address] [place] [id number] Chest 1 View (Portable) MR#: [id number] Acct: [id number] Name: BRITNEY MARIE Rep #: [id number] : 1960 F 57 From: Khris Humphrey MD PCP: Mare River III, MD Status: REG ER Study: Chest 1 View (Portable) Date of Exam: 01/15/18 Exam# [id number] Ordering Dr: Enrique Bradford MD STUDY: X-RAY CHEST REASON FOR EXAM: Female, 57 years old. Chest pain TECHNIQUE: Single AP portable view of the chest. COMPARISON: Previous study of 02/05/2017 FINDINGS: ekg monitor leads are present. The lungs are clear and expanded. There is no demonstrated pleural abnormality. Normal size heart. Normal mediastinum and joseluis. Normal visualized pulmonary arteries. There are calcified plaques of the aortic arch. Normal visualized thoracic spine. There is a small smooth margined calcification superior to the right humeral head which may represent calcific tendinitis or bursitis. There is no demonstrated abnormality of the visualized soft tissue structures of the upper abdomen. RAD/Chest 1 View (Portable) IMPRESSION: Calcified plaques of the aortic arch. No acute cardiopulmonary disease process is seen. Electronically Signed: Khris Humphrey MD at 17:23 EST , Service support , CC: Mare River III, MD; Enrique Bradford MD Electrical Test Technician: Signed CBC W/DIFF, AUTOMATED Collected: 01/15/2018 Status: F Source: [place] 4:35 PM [facility] REPOSITORY TYPE CODE TESTS RESULT OUT OF RANGE REFERENCE UNITS LAB L100.1000 4.4-11.0 K/mm3 High WBC 22.0 LAB L100.1200 4.2-5.4 M/mm3 Normal RBC 4.90 LAB L100.1300 12.0-15.0 g/dl Normal HGB 14.6 LAB L100.1400 37-47 % Normal HCT 41.5 LAB L100.1500 81-99 fL Normal MCV 84.7 LAB L100.1600 27.0-32.0 pg Normal MCH 29.8 LAB L100.1700 32-36 g/gl Normal MCHC 35.2 LAB L100.1810 11.6-14.6 % Normal RDW CV 13.4 LAB L100.1820 35.1-43.9 fl Normal RDW SD 41.1 LAB L100.1900 150-450 K/mm3 Normal PLT 450 LAB L100.2000 6.2-12.0 fl Normal MPV 9.0 LAB L100.2100 47-70 % High NEUT% 84.2 LAB L100.2200 19-41 % Low LY% 10.3 LAB L100.2300 0-10 % Normal MONO% 4.4 LAB L100.2400 0-5 % Normal EO% 0.0 LAB L100.2500 0-1 % Normal BASO% 0.1 LAB L100.2550 0.0-0.9 % High IM GRAN % 1.000 Result Comment: IG% - Immature Granulocytes (promyelocytes, myelocytes and metamyelocytes) > 1% indicates that a LEFT SHIFT is Present. LAB L100.2620 2.0-7.7 X10 3/uL High Absolute Neut 18.5 LAB L100.2720 0.83-4.51 X10 3/ul Normal Absolute Lymph 2.26 Performed By: #### L100.0100 #### [facility] [address] [place], [place], [id number] D-DIMER QUANTITATIVE Collected: 01/15/2018 Status: F Source: [place] (DVT/PE) 4:35 PM [facility] REPOSITORY TYPE CODE TESTS RESULT OUT OF RANGE REFERENCE UNITS LAB L300.8000 0.27-0.49 FEU/ug/m Normal D-DIMER 0.37 QUANT Result Comment: NORMAL D-Dimer level (<0.50) indicates no DVT or PE. Performed By: #### L300.8000 #### [facility] [address] [place], [place], [id number] BASIC METABOLIC Collected: 01/15/2018 Status: F Source: [place] PROFILE (BMP) 4:35 PM [facility] REPOSITORY Order Comment: 'TROP' Serial specimen #1, #2, #3, or #4: 1 TYPE CODE TESTS RESULT OUT OF RANGE REFERENCE UNITS LAB L501.0100 74-106 mg/dL High GLU 110 Result Comment: Fasting Glucose result from 100 to 125 mg/dL suggests IMPAIRED HOMEOSTASIS per A.D.A. criteria. Please note revised GLUCOSE reference range effective 2017. LAB L501.1000 7-18 mg/dL Normal BUN 11 LAB L501.1100 0.55-1.02 mg/dL Normal CREAT,SERUM 0.78 Result Comment: The validity of the calculated GFR AND GFRAA in patients over 70 years has not been determined. Clinical correlation is essential. LAB L501.1110 >60 mL/min Normal EST GFR 81 Result Comment: Non- GFR Calc LAB L501.1115 >60 mL/min Normal EST GFR - AA 98 Result Comment: GFR Calc LAB L501.1255 ml/min Normal Estimated CRCL 62.94 LAB L501.1300 10-20 RATIO Normal BUN/CRE 14.1 LAB L501.2200 8.5-10 mg/dL Normal .1 CA 9.1 LAB L501.5300 136-14 mmol/L Normal 5 NA 142 LAB L501.5600 3.5-5. mmol/L Normal 1 K 3.7 LAB L501.5900 98-107 mmol/L High CL 108 LAB L501.6100 21.0-3 mmol/L Normal 2.0 CO2 27.0 LAB L501.6200 5-15 Normal GAP 7 Performed By: #### L500.2500, L501.4010, L501.9520 #### [facility] [address] [place], [place], [address] TROPONIN-I Collected: 01/15/2018 Status: F Source: [place] 4:35 PM [facility] REPOSITORY Order Comment: 'TROP' Serial specimen #1, #2, #3, or #4: 1 TYPE CODE TESTS RESULT OUT OF RANGE REFERENCE UNITS LAB L501.4010 <0.06 ng/mL Normal < 0.02 TROPONIN-I Result Comment: TROPONIN-I EXPECTED VALUES <0.05 NEGATIVE 0.06 - 0.59 AT RISK OF IN > OR = 0.60 SUGGEST IN Performed By: #### L500.2500, L501.4010, L501.9520 #### [facility] [address] [place], [address] THYROID STIM HORMONE Collected: 01/15/2018 Status: F Source: [place] (TSH) 4:35 PM [facility] REPOSITORY Order Comment: 'TROP' Serial specimen #1, #2, #3, or #4: 1 TYPE CODE TESTS RESULT OUT OF RANGE REFERENCE UNITS LAB L501.9520 0.358-3.74 uIU/mL Normal TSH 0.38 Performed By: #### L500.2500, L501.4010, L501.9520 #### [facility] [address] [place], [address] PROGRESS Observed: 01/13/2018 Status: COMPLETED Source: [place] 9:54 AM [facility] REPOSITORY HNO ID: [id number] Author: Lindsey (Aniket) Kira Service: (none) Author Type: Nurse Practitioner Type: Progress Notes Filed: 01/13/2018 10:58 AM Note Text: 01/13/2018 Patient presents with: Follow Up For: possible HCTz medication s/e-headaches, ringing in ears SUBJECTIVE: This is a 57 year old that is here today for headache. She has had a headache since 2 days before she saw me on 01/07. At that time, her BP was elevated and it was thought that it may be due to that. Her BP has improved after starting the HCTZ, but the headache remains. She had stated at the previous visit that the headache started after an episode of dizziness with tunnel vision. She states that she had the tunnel vision again this past Thursday, she states that she was out with a friend and he noticed that she did not look right and by the time that she was able to respond to him that she was fine, she returned to normal. She describes it as tunnel vision once again. She describes the headache as a constant ache with light and sound sensitivity. Tylenol does not help, she tried a couple of times and stopped. Denies nausea and vomiting. She has a history of migraines, but states that it has been years since she has had one and this feels different that she remembers. She has not been able to sleep with the SIMPSON. She denies any change in gait, sensation, grasp, mental status change. She states that it is hard to say due to the inability to sleep well. She states that she does not think that she slept at all last night and she took melatonin and and old script for ambian. She admits to an episode of chest discomfort yesterday when she was walking up a big hill outdoors. She states that she was also SOB at the time. She describes it as a pressure feeling more in her left shoulder than her chest. It resolved with rest in less than 5 minutes. PAST MEDICAL HISTORY Diagnosis Date - ASHD (arteriosclerotic heart disease) 10/14/2011 - Cervical disc disorder 03/13/2011 - Cocaine substance abuse 2003 - COPD (chronic obstructive pulmonary disease) (HCC) - Degenerative disc disease, cervical 2010 - Depression 2010 - Dysmetabolic syndrome X 01/21/2011 - Erosive esophagitis 09/04/2014 - Esophageal reflux Gastroesophageal reflux - Essential hypertension, benign 09/09/2010 no meds currently 03/26 - Fibrocystic breast changes, bilateral 01/28/2017 - Hyperlipidemia LDL goal < 130 2010 - Hyperlipidemia LDL goal < 70 10/14/2011 - Migraine headache 01/23/2012 - Non morbid obesity due to excess calories 08/29/2016 - Obstructive sleep apnea - Osteoporosis 03/13/2011 - Peptic ulcer, unspecified site, unspecified as acute or chronic, without mention of hemorrhage, perforation, or obstruction Peptic ulcer disease - Tobacco abuse 01/23/2012 - Trigeminal neuralgia 12/29/2013 - Trigeminal neuralgia of right side of face 05/03/2015 - Vitamin D deficiency 03/19/2011 ALLERGIES Latex; Darvocet A500 [Propoxyphene N-Acetaminophen]; Darvocet-N 100 [Propoxyphene N-Acetaminophen]; Dilaudid [Hydromorphone (Bulk)]; Dilaudid [Hydromorphone Hcl]; Ees [Other]; Heparin Analogues; Keflex [Cephalexin]; Keflex [Cephalexin]; Levaquin [Levofloxacin]; Lisinopril; Oxycodone; Oxycotin [Oxycodone]; Penicillin; Penicillins; Percocet [Oxycodone-Acetaminophen]; Polytrim [Polymyxin B Sulf-Trimethoprim]; Sulfa (Sulfonamide Antibiotics); Tegretol [Carbamazepine]; Vibramycin [Doxycycline Calcium]; Vicodin [Hydrocodone-Acetaminophen]; Adhesive Tape (Rosins) MEDICATIONS Current Outpatient Prescriptions: pantoprazole DR (PROTONIX) 40 mg tablet TAKE 1 TABLET BY MOUTH EVERY DAY hydrOXYzine HCl (ATARAX) 25 mg tablet Take 1 tablet by mouth three times daily as needed for Anxiety. loratadine (CLARITIN) 10 mg tablet Take 1 tablet by mouth once daily. Hydrochlorothiazide 12.5 mg capsule Take 1 capsule by mouth once daily. fluticasone-vilanterol (BREO ELLIPTA) 200-25 mcg/dose inhaler Inhale 1 Inhalation as instructed once daily. Inhale one puff once daily. DO NOT CLICK OPEN UNTIL READY FOR DOSE pregabalin (LYRICA) 100 mg capsule Take 1 capsule by mouth three times daily. albuterol HFA (PROAIR HFA) 90 mcg/actuation inhaler Inhale 2 Puffs as instructed every 4 hours as needed. alendronate (FOSAMAX) 70 mg tablet Take 1 tablet by mouth once each week. Take with a full glass of water, on an empty stomach; do NOT lie down for 30minutes. atorvastatin (LIPITOR) 40 mg tablet Take 2 tablets by mouth once daily. promethazine (PHENERGAN) 25 mg tablet Take 1 tablet by mouth four times daily as needed for Nausea/Vomiting. nitroglycerin sublingual (NITROQUICK) 0.4 mg SL tablet Dissolve 1 tablet under the tongue as needed. FOR CHEST PAIN. IF NO RELIEF CALL [address] (PROTONIX) 40 mg tablet Take 1 tablet by mouth once daily. (Patient taking differently: Take 40 mg by mouth as needed.) morphine SR (MS CONTIN) 15 mg 12 hr tablet Take 15 mg by mouth twice daily as needed. COMPOUNDED PRESCRIPTION CPAP adjustmentdx: obstructive sleep apnea No current facility-administered medications for this visit. Medications and allergies reviewed by this provider. SOCIAL HISTORY Social History Marital status: Spouse name: Years of education: Number of children: 3 Occupational History Occupation Employer Comment DISABLED Social History Main Topics Smoking status: Current Every Day Smoker Packs/day: 0.25 Years: 45.00 Types: Cigarettes Smokeless status: Never Used Comment: trying to quit Alcohol use: No Drug use: No Comment: none since 06/2005/cocaine abuse Sexual activity: Not Currently Partners with: Male REVIEW OF SYSTEMS see HPI OBJECTIVE: BP 138/88 (BP Site: Left Arm, BP Position: Sitting, BP Cuff Size: Regular Adult) Pulse 97 Temp 37.2 ?C (99 ?F) (Right Tympanic) Resp 16 Wt 82.2 kg (181 lb 1.9 oz) SpO2 98% BMI 33.13 kg/m2. Vital signs reviewed by this provider. PHYSICAL EXAMINATION: General appearance:appears to be in pain- closing eyes and holding head most of the visit, alert, in no acute distress, well-hydrated, well nourished. Skin: Skin color, texture, turgor normal, no suspicious rashes or lesions Head: Normocephalic, no masses, lesions, tenderness or abnormalities Eyes: Anicteric sclera. Pupils are equally round and reactive to light. Extraocular movements are intact. Neck: Supple, no adenopathy; thyroid symmetric, normal size, no bruits Lungs: Lungs clear to auscultation. No wheezing, rhonchi, rales Heart: RRR no gallop, or rubs. No ectopy + 2/6 systolic murmur ULSB Extremities: No deformities, edema, skin discoloration, clubbing or cyanosis. Good capillary refill. , Pulses: 2+ Neuro: Gait normal. Sensation grossly intact., Negative findings: speech normal, mental status intact, cranial nerves 2-12 intact, gait, including heel, toe, and tandem walking normal, Romberg negative, muscle tone normal, muscle strength normal, rapid alternating movements normal, finger to nose normal ASSESSMENT/PLAN: 1. Headache, unspecified headache type - ICD9: 784.0, ICD10: R51 (primary diagnosis) - symptoms suggestive of migraine. Concerned that this feels different than in the past and the now 2 episodes of tunnel vision. Would like CT STAT and if normal will send in script for imitrex to be taken as needed since it worked in the past. Also discussed prophylaxis with daily propanolol or amitriptyline - CT BRAIN WO IVCON - METHYLPREDNISOLONE 4 MG TABLETS IN A DOSE PACK- ok to start tomorrow - TORADOL 60 MG IM X 1 DOSE- tolerated well and reports some improvement with the SIMPSON prior to leaving. She appears to be in less pain. - CK CREATINE KINASE - C-REACTIVE PROTEIN (CRP) - SED RATE WESTERGREN - discussed red flags including worsening SIMPSON, worst SIMPSON of life, neuro changes, stroke symptoms and stressed the need to go to ER if having these symptoms. - follow up in 3 months with PCP 2. Chest discomfort - ICD9: 786.59, ICD10: R07.89 Chest pain of unclear etiology, patient with significant risk factor(s) of family history of early coronary heart disease, Hypertension, Hyperlipidemia and smoking - Electrocardiogram: An ECG today showed normal sinus rhythm at 79 BPM, PA interval 124 ms, normal QRS, normal ST-T, QT 430 ms QTc 493 ms - need to follow up with cardiology as planned - Discussed red flags especially related to the new prolonged QT- she is agreeable to go to ED with any CP, palpitations, extreme lightheadedness or dizziness, or any concerning symptoms - ECG COMPLETE W INTERPRETATION 3. Prolonged Q-T interval on ECG - ICD9: 794.31, ICD10: R94.31 - new compared to most recent on record from January 2017. - unsure etiology - follow up with cardiology - Discussed red flags- see above Lindsey Malone CNP CNOV Observed: 01/13/2018 Status: COMPLETED Source: [place] 9:00 AM [facility] REPOSITORY Office Visit (FAMPWS) BRITNEY MARIE ([id number]) 1960 [address] [facility] Date Time Provider Department 01/13/18 9:00 AM LINDSEY MALONE (ANIKET) FAMPWS During your visit today, we recorded the following information about you: Temperature Pulse Respiration Blood pressure 99 degrees 97/minute 16/minute 138/88 Weight 82.2 kg Lindsey Malone CNP 01/13/2018 9:54 AM Addendum Do not start medrol dose pack until tomorrow. If CT normal, will call in imitrex as needed for migraines Lindsey Malone CNP 01/13/2018 10:58 AM Signed 01/13/2018 Patient presents with: Follow Up For: possible HCTz medication s/e-headaches, ringing in ears SUBJECTIVE: This is a 57 year old that is here today for headache. She has had a headache since 2 days before she saw me on 01/07. At that time, her BP was elevated and it was thought that it may be due to that. Her BP has improved after starting the HCTZ, but the headache remains. She had stated at the previous visit that the headache started after an episode of dizziness with tunnel vision. She states that she had the tunnel vision again this past Thursday, she states that she was out with a friend and he noticed that she did not look right and by the time that she was able to respond to him that she was fine, she returned to normal. She describes it as tunnel vision once again. She describes the headache as a constant ache with light and sound sensitivity. Tylenol does not help, she tried a couple of times and stopped. Denies nausea and vomiting. She has a history of migraines, but states that it has been years since she has had one and this feels different that she remembers. She has not been able to sleep with the SIMPSON. She denies any change in gait, sensation, grasp, mental status change. She states that it is hard to say due to the inability to sleep well. She states that she does not think that she slept at all last night and she took melatonin and and old script for ambian. She admits to an episode of chest discomfort yesterday when she was walking up a big hill outdoors. She states that she was also SOB at the time. She describes it as a pressure feeling more in her left shoulder than her chest. It resolved with rest in less than 5 minutes. PAST MEDICAL HISTORY Diagnosis Date - ASHD (arteriosclerotic heart disease) 10/14/2011 - Cervical disc disorder 03/13/2011 - Cocaine substance abuse 2003 - COPD (chronic obstructive pulmonary disease) (HCC) - Degenerative disc disease, cervical 2010 - Depression 2010 - Dysmetabolic syndrome X 01/21/2011 - Erosive esophagitis 09/04/2014 - Esophageal reflux Gastroesophageal reflux - Essential hypertension, benign 09/09/2010 no meds currently 03/26 - Fibrocystic breast changes, bilateral 01/28/2017 - Hyperlipidemia LDL goal ANDlt; 130 2010 - Hyperlipidemia LDL goal ANDlt; 70 10/14/2011 - Migraine headache 01/23/2012 - Non morbid obesity due to excess calories 08/29/2016 - Obstructive sleep apnea - Osteoporosis 03/13/2011 - Peptic ulcer, unspecified site, unspecified as acute or chronic, without mention of hemorrhage, perforation, or obstruction Peptic ulcer disease - Tobacco abuse 01/23/2012 - Trigeminal neuralgia 12/29/2013 - Trigeminal neuralgia of right side of face 05/03/2015 - Vitamin D deficiency 03/19/2011 ALLERGIES Latex; Darvocet A500 [Propoxyphene N-Acetaminophen]; Darvocet-N 100 [Propoxyphene N-Acetaminophen]; Dilaudid [Hydromorphone (Bulk)]; Dilaudid [Hydromorphone Hcl]; Ees [Other]; Heparin Analogues; Keflex [Cephalexin]; Keflex [Cephalexin]; Levaquin [Levofloxacin]; Lisinopril; Oxycodone; Oxycotin [Oxycodone]; Penicillin; Penicillins; Percocet [Oxycodone-Acetaminophen]; Polytrim [Polymyxin B Sulf-Trimethoprim]; Sulfa (Sulfonamide Antibiotics); Tegretol [Carbamazepine]; Vibramycin [Doxycycline Calcium]; Vicodin [Hydrocodone-Acetaminophen]; Adhesive Tape (Rosins) MEDICATIONS Current Outpatient Prescriptions: pantoprazole DR (PROTONIX) 40 mg tablet TAKE 1 TABLET BY MOUTH EVERY DAY hydrOXYzine HCl (ATARAX) 25 mg tablet Take 1 tablet by mouth three times daily as needed for Anxiety. loratadine (CLARITIN) 10 mg tablet Take 1 tablet by mouth once daily. Hydrochlorothiazide 12.5 mg capsule Take 1 capsule by mouth once daily. fluticasone-vilanterol (BREO ELLIPTA) 200-25 mcg/dose inhaler Inhale 1 Inhalation as instructed once daily. Inhale one puff once daily. DO NOT CLICK OPEN UNTIL READY FOR DOSE pregabalin (LYRICA) 100 mg capsule Take 1 capsule by mouth three times daily. albuterol HFA (PROAIR HFA) 90 mcg/actuation inhaler Inhale 2 Puffs as instructed every 4 hours as needed. alendronate (FOSAMAX) 70 mg tablet Take 1 tablet by mouth once each week. Take with a full glass of water, on an empty stomach; do NOT lie down for 30minutes. atorvastatin (LIPITOR) 40 mg tablet Take 2 tablets by mouth once daily. promethazine (PHENERGAN) 25 mg tablet Take 1 tablet by mouth four times daily as needed for Nausea/Vomiting. nitroglycerin sublingual (NITROQUICK) 0.4 mg SL tablet Dissolve 1 tablet under the tongue as needed. FOR CHEST PAIN. IF NO RELIEF CALL [address] (PROTONIX) 40 mg tablet Take 1 tablet by mouth once daily. (Patient taking differently: Take 40 mg by mouth as needed.) morphine SR (MS CONTIN) 15 mg 12 hr tablet Take 15 mg by mouth twice daily as needed. COMPOUNDED PRESCRIPTION CPAP adjustmentdx: obstructive sleep apnea No current facility-administered medications for this visit. Medications and allergies reviewed by this provider. SOCIAL HISTORY Social History Marital status: Spouse name: Years of education: Number of children: 3 Occupational History Occupation Employer Comment DISABLED Social History Main Topics Smoking status: Current Every Day Smoker Packs/day: 0.25 Years: 45.00 Types: Cigarettes Smokeless status: Never Used Comment: trying to quit Alcohol use: No Drug use: No Comment: none since 06/2005/cocaine abuse Sexual activity: Not Currently Partners with: Male REVIEW OF SYSTEMS see HPI OBJECTIVE: BP 138/88 (BP Site: Left Arm, BP Position: Sitting, BP Cuff Size: Regular Adult) Pulse 97 Temp 37.2 ?C (99 ?F) (Right Tympanic) Resp 16 Wt 82.2 kg (181 lb 1.9 oz) SpO2 98% BMI 33.13 kg/m2. Vital signs reviewed by this provider. PHYSICAL EXAMINATION: General appearance:appears to be in pain- closing eyes and holding head most of the visit, alert, in no acute distress, well-hydrated, well nourished. Skin: Skin color, texture, turgor normal, no suspicious rashes or lesions Head: Normocephalic, no masses, lesions, tenderness or abnormalities Eyes: Anicteric sclera. Pupils are equally round and reactive to light. Extraocular movements are intact. Neck: Supple, no adenopathy; thyroid symmetric, normal size, no bruits Lungs: Lungs clear to auscultation. No wheezing, rhonchi, rales Heart: RRR no gallop, or rubs. No ectopy + 2/6 systolic murmur ULSB Extremities: No deformities, edema, skin discoloration, clubbing or cyanosis. Good capillary refill. , Pulses: 2+ Neuro: Gait normal. Sensation grossly intact., Negative findings: speech normal, mental status intact, cranial nerves 2-12 intact, gait, including heel, toe, and tandem walking normal, Romberg negative, muscle tone normal, muscle strength normal, rapid alternating movements normal, finger to nose normal ASSESSMENT/PLAN: 1. Headache, unspecified headache type - ICD9: 784.0, ICD10: R51 (primary diagnosis) - symptoms suggestive of migraine. Concerned that this feels different than in the past and the now 2 episodes of tunnel vision. Would like CT STAT and if normal will send in script for imitrex to be taken as needed since it worked in the past. Also discussed prophylaxis with daily propanolol or amitriptyline - CT BRAIN WO IVCON - METHYLPREDNISOLONE 4 MG TABLETS IN A DOSE PACK- ok to start tomorrow - TORADOL 60 MG IM X 1 DOSE- tolerated well and reports some improvement with the SIMPSON prior to leaving. She appears to be in less pain. - CK CREATINE KINASE - C-REACTIVE PROTEIN (CRP) - SED RATE WESTERGREN - discussed red flags including worsening SIMPSON, ANDquot;worst SIMPSON of lifeANDquot;, neuro changes, stroke symptoms and stressed the need to go to ER if having these symptoms. - follow up in 3 months with PCP 2. Chest discomfort - ICD9: 786.59, ICD10: R07.89 Chest pain of unclear etiology, patient with significant risk factor(s) of family history of early coronary heart disease, Hypertension, Hyperlipidemia and smoking - Electrocardiogram: An ECG today showed normal sinus rhythm at 79 BPM, PA interval 124 ms, normal QRS, normal ST-T, QT 430 ms QTc 493 ms - need to follow up with cardiology as planned - Discussed red flags especially related to the new prolonged QT- she is agreeable to go to ED with any CP, palpitations, extreme lightheadedness or dizziness, or any concerning symptoms - ECG COMPLETE W INTERPRETATION 3. Prolonged Q-T interval on ECG - ICD9: 794.31, ICD10: R94.31 - new compared to most recent on record from January 2017. - unsure etiology - follow up with cardiology - Discussed red flags- see above Lindsey Malone, ANIKET Ramirez Ma 01/13/2018 10:39 AM Signed Patient given Toradol 30 mg/mL-2mL give to=60 mg/mL IM in the right upper quadrant gluteus. Patient tolerated injection well. -please also see med note Lot#: [id number] Exp date: 03/04 Aleida Ramirez Ma Referring Provider: SELF [[id number]] Allergies As of Date: 01/13/2018 Noted Allergy Reaction LATEX 10/21/2013 2 - Rash DARVOCET A500 (PROPOXYPHENE N-CORRIE*08/05/2017 9 - Itching DARVOCET-N 100 (PROPOXYPHENE N-AC*12/11/2009 9 - Itching DILAUDID (HYDROMORPHONE (BULK)) 12/11/2009 9 - Itching DILAUDID (HYDROMORPHONE HCL) 08/05/2017 14 - Other: See Comments Comments: Burning sensation over entire body EES [Other] 11/24/2005 HEPARIN ANALOGUES 06/09/2013 4 - Hives 7 - Swelling KEFLEX (CEPHALEXIN) 11/24/2005 KEFLEX (CEPHALEXIN) 08/05/2017 7 - Swelling 9 - Itching 12 - Shortness of Breath LEVAQUIN (LEVOFLOXACIN) 11/10/2013 9 - Itching LISINOPRIL 01/17/2015 14 - Other: See Comments Comments: flushing OXYCODONE 08/05/2017 9 - Itching OXYCOTIN (OXYCODONE) 12/11/2009 4 - Hives 7 - Swelling 9 - Itching PENICILLIN 08/05/2017 10 - Anaphylaxis Comments: 4 years old PENICILLINS 11/24/2005 7 - Swelling PERCOCET (OXYCODONE-ACETAMINOPHEN)12/11/2009 9 - Itching POLYTRIM (POLYMYXIN B SULF-TRIMET*03/29/2015 7 - Swelling 9 - Itching SULFA (SULFONAMIDE ANTIBIOTICS) 11/24/2005 4 - Hives TEGRETOL (CARBAMAZEPINE) 06/04/2015 1 - Mental Status Change VIBRAMYCIN (DOXYCYCLINE CALCIUM) 08/05/2017 4 - Hives 9 - Itching VICODIN (HYDROCODONE-ACETAMINOPHE*11/24/2005 ADHESIVE TAPE (ROSINS) 03/03/2012 2 - Rash 9 - Itching Date Reviewed: 01/13/2018 Reviewed by: Aleida Ramirez Ma - Fully Assessed Reason for Visit: Follow Up For [3040] Cmt: possible HCTz medication s/e- headaches, ringing in ears Reason For Visit History Recorded Primary Visit Diagnosis:Headache, unspecified headache type [R51] Other Visit Diagnoses:Chest discomfort [R07.89] Prolonged Q-T interval on ECG [R94.31] Order(s):ECG COMPLETE W INTERPRETATION [ECG01] Order #: [id number] FUTURE CT BRAIN WO IVCON [6200047] Order #: [id number] FUTURE methylPREDNISolone (MEDROL, ERIC,) 4 mg Dose-PackFollow dosing instructions, take with food.Disp: 1 PackageRfl: 0 TORADOL 60 MG IM X 1 DOSE [1816970] Order #: [id number] CK CREATINE KINASE [SQCK] Order #: [id number] FUTURE C-REACTIVE PROTEIN (CRP) [SQCRP] Order #: [id number] FUTURE SED RATE WESTERGREN [SQWSR] Order #: [id number] FUTURE [] ketorolac (TORADOL) 60 mg/2 mL solnInject 2 mL intramuscularly one time only for 1 dose.Disp: 1 mLRfl: Prescriptions as of 01/13/2018 Sig: PANTOPRAZOLE 40 MG TABLET,DEL* TAKE 1 TABLET BY MOUTH EVERY * X HYDROXYZINE HCL 25 MG TABLET Take 1 tablet by mouth three * LORATADINE 10 MG TABLET Take 1 tablet by mouth once d* HYDROCHLOROTHIAZIDE 12.5 MG C* Take 1 capsule by mouth once * FLUTICASONE 200 MCG-VILANTERO* Inhale 1 Inhalation as instru* PREGABALIN 100 MG CAPSULE Take 1 capsule by mouth three* ALBUTEROL SULFATE HFA 90 MCG/* Inhale 2 Puffs as instructed * ALENDRONATE 70 MG TABLET Take 1 tablet by mouth once e* X ATORVASTATIN 40 MG TABLET Take 2 tablets by mouth once * PROMETHAZINE 25 MG TABLET Take 1 tablet by mouth four t* X NITROGLYCERIN 0.4 MG SUBLINGU* Dissolve 1 tablet under the t* PANTOPRAZOLE 40 MG TABLET,DEL* Take 1 tablet by mouth once d* Patient taking differently: Take 40 mg by mouth as needed. MORPHINE ER 15 MG TABLET,EXTE* Take 15 mg by mouth twice octavio* METHYLPREDNISOLONE 4 MG TABLE* Follow dosing instructions, t* KETOROLAC 60 MG/2 ML INTRAMUS* Inject 2 mL intramuscularly o* COMPOUNDED PRESCRIPTION CPAP adjustment dx: obstru* Medication notes this encounter KETOROLAC 60 MG/2 ML INTRAMUSCULAR SOLUTION >> Aleida Ramirez Ma 01/13/2018 10:35 AM >> ALEIDA RAMIREZ MA Jan 13, 2018 10:35 AM The patient is here for an injection of Toradol. Dose: 30 mg/mL-2 mL given to=60 mg/mL Amount wasted: Nonr. Route: Intramuscular Site: right upper quadrant gluteus [employer]: [employer] Lot #: [id number] Expiration Date: 03/04 The date due for the next injection is N/A Aleida Ramirez Ma Problem List As Of Date 01/13/2018 Noted Resolved Cocaine substance abuse [F14.10] 09/04/2014 Essential hypertension, benign [I10] INVALID FOR* Priority: F More... Degenerative disc disease, cervical [M50.30] INVALID FOR* Priority: D More... Depression [F32.9] INVALID FOR* Priority: E More... Dysmetabolic syndrome X [E88.81] INVALID FOR* Osteoporosis [M81.0] INVALID FOR* Cervical disc disorder [M50.90] INVALID FOR* Vitamin D deficiency [E55.9] INVALID FOR* Hyperlipidemia with target LDL less than 70 [E7*INVALID FOR* Priority: G More... ASHD (arteriosclerotic heart disease) [I25.10] INVALID FOR* More... Chest pain [R07.9] INVALID FOR*09/04/2014 Priority: B More... Tobacco abuse [Z72.0] INVALID FOR* Priority: I More... Tobacco abuse counseling [Z71.6] INVALID FOR* Migraine headache [G43.909] INVALID FOR* Priority: H More... SUMMARY [V999.95] INVALID FOR* Priority: A More... Asthma [J45.909] INVALID FOR* Priority: C More... Elevated gastrin level [E16.4] INVALID FOR* Flushing [R23.2] INVALID FOR* Trigeminal neuralgia [G50.0] INVALID FOR* Erosive esophagitis [K22.10] INVALID FOR* Spontaneous ecchymoses [R23.3] INVALID FOR* Lumbar back pain with radiculopathy affecting l*INVALID FOR* Arteriosclerosis of carotid artery [I65.29] INVALID FOR* MELYSSA (obstructive sleep apnea) [G47.33] INVALID FOR* Trigeminal neuralgia of right side of face [G50*INVALID FOR* Obesity (BMI 30-39.9) [E66.9] INVALID FOR* Grief [F43.20] INVALID FOR* Other seasonal allergic rhinitis [J30.2] INVALID FOR* Anxiety and depression [F41.8] INVALID FOR* Sense of smell altered [R43.9] INVALID FOR* Nonintractable headache [R51] INVALID FOR* Non morbid obesity due to excess calories [E66.*INVALID FOR* Fibrocystic breast changes, bilateral [N60.11, *INVALID FOR* Orthostatic hypotension [I95.1] INVALID FOR* Moderate episode of recurrent major depressive *INVALID FOR* 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 If CT normal, will call in imitrex as needed for migraines Visit Notes: >> Aleida Ramirez Ma ThuJan 13, 2018 10:35 AM Status: Signed Patient given Toradol 30 mg/mL-2mL give to=60 mg/mL IM in the right upper quadrant gluteus. Patient tolerated injection well. -please also see med note Lot#: [id number] Exp date: 03/04 Aleida Ramirez Ma Prescriptions ordered this encounter Disp Refills Start End METHYLPREDNISOLONE 4 MG TABLETS IN A* 1 Pa* 0 01/13/2018 01/19/2018 Sig: Follow dosing instructions, take with food. KETOROLAC 60 MG/2 ML INTRAMUSCULAR S* 1 mL 01/13/2018 01/13/2018 Class: Med Update Route: INTRAMUSCULA Sig: Inject 2 mL intramuscularly one time only for 1 dose. Cosign accepted by LINDSEY MALONE[[id number]] on 01/13/2018 10:38 AM Encounter Status:Closed by LINDSEY MALONE on 01/13/18 CBC Collected: 01/07/2018 Status: F Source: [place] 10:36 AM [facility] REPOSITORY TYPE CODE TESTS RESULT OUT OF REFERENCE UNITS RANGE LAB WBC 3.70-11.00 k/uL WBC High 12.47 LAB RBC 3.90-5.20 m/uL RBC High 5.37 LAB HGB 11.5-15.5 g/dL High Hemoglobin 15.7 LAB HCT 36.0-46.0 % High Hematocrit 47.5 LAB MCV 80.0-100.0 fL MCV 88.5 LAB MCH 26.0-34.0 pG MCH 29.2 LAB MCHC 30.5-36.0 g/dL MCHC 33.1 LAB RDWCV 11.5-15.0 % RDW-CV 13.0 LAB PLTCT 150-400 k/uL Platelet High Count 444 LAB MPV 9.0-12.7 fL MPV 9.4 LAB ABSNUC <0.01 k/uL Absolute nRBC <0.01 Performed By: #### CBC, CMP, TSH, VITD #### [facility] [address] [place] [id number] COMP METABOLIC PANEL Collected: 01/07/2018 Status: F Source: [place] 10:36 AM [facility] REPOSITORY TYPE CODE TESTS RESULT OUT OF REFERENCE UNITS RANGE LAB TP 6.3-8.0 g/dL Protein, Total 7.7 LAB ALB 3.9-4.9 g/dL Albumin 4.6 LAB CA 8.5-10.2 mg/dL Calcium, Total 9.6 LAB TBIL 0.2-1.3 mg/dL Bilirubin, Total 0.3 LAB ALKP 32-117 U/L Alkaline Phosphatase 81 LAB AST 13-35 U/L AST 20 LAB GLU 74-99 mg/dL Glucose 97 Result Comment: The [place] [employer] (ADA) provides guidance for cutoff values for fasting glucose and random glucose. The ADA defines fasting as no caloric intake for at least 8 hours. Fas ting plasma glucose results between 100 to 125 mg/dL indicate increased risk for diabetes (prediabetes). Fasting plasma glucose results greater than or equal to 126 mg/dL meet the criteria for diagnosis of diabetes. In the absence of unequivocal hyperglycemia, results should be confirmed by repeat testing. In a patient with classic symptoms of hyperglycemia or hyperglycemic crisis, random plasma glucose results greater than or equal to 200 mg/dL meet the criteria for diagnosis of diabetes. Reference: Standards of Medical Care in Diabetes 2016, [place] [employer] Association. Diabetes Care. 2016.39(Suppl 1). LAB BUN 7-21 mg/dL BUN 13 LAB CRET 0.58-0.96 mg/dL Creatinine 0.82 LAB NA 136-144 mmol/L Sodium 142 LAB K 3.7-5.1 mmol/L Potassium 4.1 LAB CL 97-105 mmol/L Chloride 101 LAB CO2 22-30 mmol/L CO2 28 LAB AGAP 9-18 mmol/L Anion Gap 13 LAB ALT 7-38 U/L ALT 20 LAB GFRAA eGFR- Amer. >60 LAB GFRNAA . eGFR-All Other Races >60 Result Comment: eGFR (Estimated GFR) Units of measure: mL/min/1.73 meters squared eGFR is derived from the reexpressed MDRD Study equation using the following parameters: serum creatinine, age, gender and race. The creatinine assay has been calibrated to be traceable to IDMS. An eGFR <60 mL/min/1.73m2 for >3 months is consistent with chronic kidney disease. Refer to KDOQI guidelines for clinical interpretation. In patients with unstable renal function, e.g. those with acute kidney injury, the eGFR may not accurately reflect actual GFR. Performed By: #### CBC, CMP, TSH, VITD #### [facility] [employer] [address] [place] [address] TSH Collected: 01/07/2018 Status: F Source: [place] 10:36 AM [facility] REPOSITORY TYPE CODE TESTS RESULT OUT OF RANGE REFERENCE UNITS LAB TSH 0.400-5.500 uU/mL TSH 1.070 Performed By: #### CBC, CMP, TSH, VITD #### [facility] [employer] [address] [place] [address] VITAMIN D 25 HYDROXY Collected: 01/07/2018 Status: F Source: [place] 10:36 AM [facility] REPOSITORY TYPE CODE TESTS RESULT OUT OF REFERENCE UNITS RANGE LAB VITD 31.0-80.0 ng/mL Low Vitamin D 25 27.8 Hydroxy Result Comment: Classification of 25 [place] Vitamin D status: Insufficiency/Moderate Deficiency: < or = 30 ng/mL Sufficiency/Optimal Levels: 31 to 80 ng/mL Toxicity: > 100 ng/mL Test performed by chemiluminescent immunoassay. Performed By: #### CBC, CMP, TSH, VITD #### [facility] [address] [place], [place] [address] PROGRESS Observed: 01/07/2018 Status: COMPLETED Source: [place] 9:42 AM [facility] [place] REPOSITORY HNO ID: [id number] Author: Lindsey (Aniket) Kira Service: (none) Author Type: Nurse Practitioner Type: Progress Notes Filed: 01/07/2018 1:10 PM Note Text: 01/07/2018 Patient presents with: High blood pressure SUBJECTIVE: This is a 57 year old that is here today for concern for high BP that was brought up at her pain management appt yesterday. She states that she has not been checking BP at home, but after yesterday bought a wrist cuff and started to check and she is getting around 140s/90s. She states that she feels like she has been taking a blood pressure medication, but there is not one listed on her medication list. The last one that she has been on in the past is Toprol XL. She follows with Dr. Vargas about once a year, she admits that she is probably due to schedule. She states that 2 days ago, she had an episode of dizziness that had some tunnel vision for several minutes and a headache that started at the same time. She does have a history of migraines, but states that there was never any vision involvement and the pain was much worse. No other vision changes. She continues to have a dull headache, she has not taken anything for it. She states that she drinks 4-5 large Thermus water bottles a day of water. She denies SOB, CP or edema. She does admit to some palpitations, but feel that they are linked to being stressed. She also is concerned with some increase in trouble sleeping and night sweats. She would normally get night sweats occasionally, but the last week has been occurring daily. She does not believe that it is fever related because she has no other symptoms. She states that she has been postmenopausal since age 49. She does admit to some increase in stress level because she is living with her son and his and their dog that she is allergic to, so she tends to hide out in her room a lot during the day. She will be moving out soon, so she is hopeful that this might help. She is less active due to being in her room a lot, she is eating the same, but she has been losing weight. She is up to date on mammogram and colonoscopy. She has not been using her CPAP because she believes that the settings are wrong. She would like a referral to another sleep medicine office- she does not feel that Dr. Ramos is right for her. PAST MEDICAL HISTORY Diagnosis Date - ASHD (arteriosclerotic heart disease) 10/14/2011 - Cervical disc disorder 03/13/2011 - Cocaine substance abuse 2003 - COPD (chronic obstructive pulmonary disease) ([facility]) - Degenerative disc disease, cervical 2010 - Depression 2010 - Dysmetabolic syndrome X 01/21/2011 - Erosive esophagitis 09/04/2014 - Esophageal reflux Gastroesophageal reflux - Essential hypertension, benign 09/09/2010 no meds currently 03/26 - Fibrocystic breast changes, bilateral 01/28/2017 - Hyperlipidemia LDL goal < 130 2010 - Hyperlipidemia LDL goal < 70 10/14/2011 - Migraine headache 01/23/2012 - Non morbid obesity due to excess calories 08/29/2016 - Obstructive sleep apnea - Osteoporosis 03/13/2011 - Peptic ulcer, unspecified site, unspecified as acute or chronic, without mention of hemorrhage, perforation, or obstruction Peptic ulcer disease - Tobacco abuse 01/23/2012 - Trigeminal neuralgia 12/29/2013 - Trigeminal neuralgia of right side of face 05/03/2015 - Vitamin D deficiency 03/19/2011 ALLERGIES Latex; Darvocet A500 [Propoxyphene N-Acetaminophen]; Darvocet-N 100 [Propoxyphene N-Acetaminophen]; Dilaudid [Hydromorphone (Bulk)]; Dilaudid [Hydromorphone Hcl]; Ees [Other]; Heparin Analogues; Keflex [Cephalexin]; Keflex [Cephalexin]; Levaquin [Levofloxacin]; Lisinopril; Oxycodone; Oxycotin [Oxycodone]; Penicillin; Penicillins; Percocet [Oxycodone-Acetaminophen]; Polytrim [Polymyxin B Sulf-Trimethoprim]; Sulfa (Sulfonamide Antibiotics); Tegretol [Carbamazepine]; Vibramycin [Doxycycline Calcium]; Vicodin [Hydrocodone-Acetaminophen]; Adhesive Tape (Rosins) MEDICATIONS Current Outpatient Prescriptions: fluticasone-vilanterol (BREO ELLIPTA) 200-25 mcg/dose inhaler Inhale 1 Inhalation as instructed once daily. Inhale one puff once daily. DO NOT CLICK OPEN UNTIL READY FOR DOSE pregabalin (LYRICA) 100 mg capsule Take 1 capsule by mouth three times daily. albuterol HFA (PROAIR HFA) 90 mcg/actuation inhaler Inhale 2 Puffs as instructed every 4 hours as needed. alendronate (FOSAMAX) 70 mg tablet Take 1 tablet by mouth once each week. Take with a full glass of water, on an empty stomach; do NOT lie down for 30minutes. atorvastatin (LIPITOR) 40 mg tablet Take 2 tablets by mouth once daily. promethazine (PHENERGAN) 25 mg tablet Take 1 tablet by mouth four times daily as needed for Nausea/Vomiting. nitroglycerin sublingual (NITROQUICK) 0.4 mg SL tablet Dissolve 1 tablet under the tongue as needed. FOR CHEST PAIN. IF NO RELIEF CALL 911 morphine SR (MS CONTIN) 15 mg 12 hr tablet Take 15 mg by mouth twice daily as needed. loratadine-pseudoephedrine ER (CLARITIN-D 12) 5-120 mg per tablet Take 1 tablet by mouth twice daily. COMPOUNDED PRESCRIPTION CPAP adjustmentdx: obstructive sleep apnea predniSONE (DELTASONE) 5 mg tablet Take ten tabs by mouth on day one and reduce by one a day till done. benzonatate (TESSALON PERLES) 100 mg capsule Take 2 capsules by mouth three times daily as needed for Cough. albuterol HFA (PROVENTIL HFA, VENTOLIN HFA) 90 mcg/actuation inhaler Inhale 2 Puffs as instructed every 6 hours as needed for Wheezing/Shortness of Breath. hydrOXYzine HCl (ATARAX) 25 mg tablet Take 1 tablet by mouth every 6 hours as needed for Itching/Rash. hydrOXYzine HCl (ATARAX) 25 mg tablet TAKE 1 TABLET BY MOUTH EVERY 8 HOURS NEEDED FOR ITCHING/RASH. zolpidem (AMBIEN) 5 mg tablet Take 1 tablet by mouth at bedtime as needed for Sedation. buPROPion XL (WELLBUTRIN XL) 300 mg 24 hr tablet Take 1 tablet by mouth once daily. pantoprazole DR (PROTONIX) 40 mg tablet Take 1 tablet by mouth once daily. (Patient taking differently: Take 40 mg by mouth as needed.) No current facility-administered medications for this visit. Medications and allergies reviewed by this provider. SOCIAL HISTORY Social History Marital status: Spouse name: Years of education: Number of children: 3 Occupational History Occupation Employer Comment DISABLED Social History Main Topics Smoking status: Current Every Day Smoker Packs/day: 0.25 Years: 45.00 Types: Cigarettes Smokeless status: Never Used Comment: trying to quit Alcohol use: No Drug use: No Comment: none since 06/2005/cocaine abuse Sexual activity: Not Currently Partners with: Male REVIEW OF SYSTEMS see HPI OBJECTIVE: BP 142/100 (BP Site: Left Arm, BP Position: Sitting, BP Cuff Size: Regular Adult) Pulse 87 Temp 37 ?C (98.6 ?F) (Right Tympanic) Resp 16 Wt 82.1 kg (181 lb) SpO2 98% BMI 33.11 kg/m2. Vital signs reviewed by this provider. PHYSICAL EXAMINATION: General appearance: Well appearing, alert, in no acute distress, well-hydrated, well nourished. Head: Normocephalic, no masses, lesions, tenderness or abnormalities Eyes: Anicteric sclera. Pupils are equally round and reactive to light. Neck: Supple, no adenopathy; thyroid symmetric, normal size, Positive findings: bruits bilaterally Lungs: Lungs clear to auscultation. No wheezing, rhonchi, rales Heart: RRR without murmur, gallop, or rubs. No ectopy, Positive findings: murmur: 2/6 systolic murmur ULSB Extremities: No deformities, edema, skin discoloration, clubbing or cyanosis. Good capillary refill. , Pulses: 2+ ASSESSMENT/PLAN: 1. Essential hypertension, benign - ICD9: 401.1, ICD10: I10 (primary diagnosis) - need to call back and confirm medications taking- will need to either start a medication or ad on if she is already taking something - poor control - Encouraged dietary sodium restriction/DASH diet - Recommended regular aerobic exercise. - Recommend home blood pressure monitoring, to bring results in on next visit - Discussed need and benefit for weight loss. - Recheck in 2 weeks with nurse visit, sooner should new symptoms or problems arise. - Reviewed risks of HTN and principles of treatment - Goal of BP <140/90 - Patient counselled on smoking cessation. - Recommended no refined sugar, low refined starch, healthy oil intake (olive oil), healthy protein (fish) along the lines of the Mediterranean diet. - Needs to schedule with Dr. Vargas 2. Night sweats - ICD9: 780.8, ICD10: R61 - unclear etiology. Would like to start with blood work. There were already labs previously ordered, will add TSH. - TSH BLD 3. MELYSSA (obstructive sleep apnea) - ICD9: 327.23, ICD10: G47.33 - discussed that this could be contributing to insomnia and night sweats, recommend follow up for adjustment if machine is not working for her - CONSULT TO SLEEP MEDICINE - ADULT 4. Dizziness - ICD9: 780.4, ICD10: R42 - encouraged to continue water intake - would like to evaluate with labs - could be related to uncontrolled HTN - if continues after HTN control, will need to look into further 5. Vision disturbance - ICD9: 368.9, ICD10: H53.9 - encouraged to follow up with eye doctor - could be migraine vs HTN if no concerns with eye structures themselves 6. 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 - LORATADINE 10 MG TABLET Lindsey Malone CNP PROGRESS Observed: 01/07/2018 Status: COMPLETED Source: [place] 9:39 AM [facility] [place] REPOSITORY O ID: [id number] Author: Aleida Ramirez Ma Service: (none) Author Type: (none) Type: Progress Notes Filed: 01/07/2018 1:10 PM Note Text: Repeat Blood Pressure BP Pulse HR Site Cuff Size Time Date 155/112 87 --- Left Arm Regular 09:33 AM 01/07/2018 135/100 84 --- Left Arm Large 09:33 AM 01/07/2018 143/100 87 --- Left Arm Regular 09:33 AM 01/07/2018 BP ALTAGRACIA AVERAGE 144/97 88 --- Left Arm Regular 09:32 AM 01/07/2018 137/93 88 --- Left Arm Regular 09:32 AM 01/07/2018 144/97 88 --- Left Arm Regular 09:32 AM 01/07/2018 139/92 86 --- Left Arm Regular 09:31 AM 01/07/2018 No orthostatic vitals data filed. No peak flow data filed. No waist measurement recorded. ALLERGIES ALLERGIES DATE TYPE / CODE NAME / CODE REACTION SEVERITY SOURCE Drug hydromorphone Hives, feels SV [place] 9 Allergy/014231430( HCl/[id number](RX like on fire [facility]) NORM) Hospital Repository Drug hydrocodone Hives SV [place] 9 Allergy/034726623( bitartrate/J98849 [facility]) 1555(RXNORM) Hospital Repository Drug oxycodone Hives Unknown [place] 9 Allergy/327138933( HCl/M409719095(RX [facility]) NORM) Hospital Repository Drug propoxyphene Hives SV [place] 9 Allergy/393406808( napsylate/W475662 [facility] SNOM[facility]) 576(RXNORM) Hospital Repository Drug cephalexin Rash Unknown [place] 9 Allergy/918023803( monohydrate/F0000 [facility]) 16340(RXNORM) Hospital Repository Drug Heparin severe bruising Unknown [place] 9 Allergy/479907777( Analogues/D627500 and rash [facility]) 337(RXNORM) Hospital Repository Drug Penicillins/F0010 Anaphylaxis SV [place] 9 Allergy/593169738( 19159(RXNORM) [facility] Hospital Repository Drug Sulfa Hives SV [place] 9 Allergy/212631931( (Sulfonamide [facility] SN[facility]) Antibiotics)/F001 Hospital 203403(RXNORM) Repository Drug oxytocin/N1468242 Hives Unknown [place] 9 Allergy/563644113( 07(RXNORM) [facility] Hospital Repository Drug acetaminophen/F00 Hives SV [place] 9 Allergy/196731865( 7480760(RXNORM) [facility] Hospital Repository Drug adhesive/U5989438 Rash Unknown [place] 9 Allergy/275596159( 45(RXNORM) [facility]) Hospital Repository Drug levofloxacin/F006 swelling, rash Unknown [place] 9 Allergy/849647955( 136011(RXNORM) [facility] SNOMED CT) Hospital Repository Drug latex/H482782509( Rash Unknown [place] 9 Allergy/328988113( RXNORM) [facility] SNOMED CT) Hospital Repository DRUG/946797067(SNO PROPOXYPHENE ITCHING [place] [address]) N-ACETAMINOPHEN Clinic Other [place] Repository DRUG HYDROMORPHONE HCL OTHER: SEE C [place] 7 INGREDI/464972814( Clinic Other SNOMED CT) [place] Repository DRUG CEPHALEXIN SWELLING [place] INGREDI/199035838( Clinic Other SNOMED CT) [place] Repository DRUG OXYCODONE ITCHING [place] INGREDI/972856767( Clinic Other SNOMED CT) [place] Repository DRUG PENICILLIN ANAPHYLAXIS [place] INGREDI/479453483( Clinic Other SNOMED CT) [place] Repository DRUG DOXYCYCLINE HIVES [place] INGREDI/636185481( CALCIUM Clinic Other SNOMED CT) [place] Repository DRUG CARBAMAZEPINE Mental Chg [place] 5 INGREDI/363303686( Clinic Other SNOMED CT) [place] Repository DRUG/856205502(SNO POLYMYXIN B SWELLING [place] [facility]) SULF-TRIMETHOPRIM Clinic Other [place] Repository DRUG LISINOPRIL OTHER: SEE C [place] 5 INGREDI/002832061( Clinic Other SNOMED CT) [place] Repository DRUG LEVOFLOXACIN ITCHING [place] 3 INGREDI/840912814( Clinic Other SNOMED CT) [place] Repository DRUG LATEX RASH High [place] 3 INGREDI/608418643( Clinic Other SNOMED CT) [place] Repository Drug HEPARIN ANALOGUES HIVES [place] 3 Class/997930089(SN Clinic Other OMED CT) [place] Repository Chemical/277433031 ADHESIVE TAPE RASH Low [place] 2 (SNOMED CT) (ROSINS) Clinic Other [place] Repository DRUG/986785585(SNO OXYCODONE-ACETAMI ITCHING [place] [address]) NOPHEN Clinic Other [place] Repository DRUG/919615014(SNO HYDROMORPHONE ITCHING [place] [address]) (BULK) Clinic Other [place] Repository Miscellaneous OTHER [place] 6 Allergy/393564461( Clinic Other SNOMED CT) [place] Repository Drug SULFA HIVES [place] Class/802626097(SN (SULFONAMIDE Clinic Other OMED CT) ANTIBIOTICS) [place] Repository DRUG/182347905(SNO HYDROCODONE-ACETA [place] [address]) MINOPHEN Clinic Other [place] Repository DRUG CEPHALEXIN [place] 6 INGREDI/878413937( Clinic Other SNOMED CT) [place] Repository Drug PENICILLINS SWELLING [place] 6 Class/272534157(SN Clinic Other OMED CT) [place] Repository NG/054883204(SNOME LATEX [facility]) [facility] Repository NG/146154399(SNOME PROPOXYPHENE [facility]) N-ACETAMINOPHEN Health System Repository NG/193985454(SNOME HYDROMORPHONE [facility]) (BULK) Health System Repository NG/746707806(SNOME HYDROMORPHONE HCL [facility]) [facility] Repository NG/670641853(SNOME OTHER [facility]) [facility] Repository NG/803998789(SNOME HEPARIN ANALOGUES [facility]) [facility] Repository NG/087186015(SNOME CEPHALEXIN [facility]) [facility] Repository NG/564201618(SNOME LEVOFLOXACIN [facility]) [facility] Repository NG/926856503(SNOME LISINOPRIL [facility]) [facility] Repository NG/289576287(SNOME OXYCODONE [facility]) [facility] Repository NG/874290228(SNOME PENICILLIN [facility]) [facility] Repository NG/571846631(SNOME PENICILLINS [facility]) [facility] Repository NG/505926548(SNOME OXYCODONE-ACETAMI [facility]) NOPHEN [facility] Repository NG/105580286(SNOME POLYMYXIN B [facility]) SULF-TRIMETHOPRIM Health System Repository NG/969362744(SNOME SULFA [facility]) (SULFONAMIDE [facility] ANTIBIOTICS) Repository NG/088084259(SNOME CARBAMAZEPINE [facility] D [facility]) [facility] System Repository NG/218671457(SNOME DOXYCYCLINE [facility]) CALCIUM [facility] Repository NG/254804778(SNOME HYDROCODONE-ACETA [facility]) MINOPHEN [facility] Repository NG/985830716(SNOME ADHESIVE TAPE [facility] D [facility]) (ROSINS) Health System Repository ENCOUNTERS ENCOUNTERS ADMIT/DISCHARGE ACCOUNT NUMBER ADMITTING ENCOUNTER LOCATION SOURCE CLASS 12/07/2018/12/07/19 [id number] Ambulatory BMSBuilding: [place] 19 [facility] Repository 11/12/2018/11/22/19 [id number] Ambulatory [address] Repository 11/01/2018 [id number] Ambulatory General acute hospital ding: Repository 11/01/2018/11/02/20 [id number] Ambulatory [address] Repository 09/23/2018/09/23/20 [id number] Ambulatory BMSBuilding: [place] 18 BMS[facility] Repository 09/23/2018/09/24/20 [id number] Ambulatory [address] Repository 09/08/2018/09/09/20 [id number] Ambulatory [address] Repository 09/03/2018/09/06/20 [id number] Ambulatory [address] Repository 08/27/2018/08/27/20 [id number] [facility] Ambulatory [address] Repository 08/17/2018/08/18/20 [id number] Ambulatory [address] Repository 08/12/2018 [id number] Ambulatory [facility] MEDICAL Repository CENTERBuildi ng:CAGWS 08/02/2018/08/03/20 [id number] Ambulatory [address] Repository 07/30/2018/07/30/20 [id number] Ambulatory [address] Repository 07/15/2018/07/16/20 [id number] Ambulatory [address] Repository 07/14/2018/07/14/20 [id number] Ambulatory [address] Repository 07/14/2018/07/15/20 [id number] Ambulatory [address] Repository 07/09/2018/07/09/20 [id number] Ambulatory [address] Repository 07/07/2018/07/07/20 [id number] Ambulatory [address] Repository 07/07/2018/07/08/20 [id number] Ambulatory [address] Repository 07/02/2018 [id number] Ambulatory BMSBuilding: [facility] Repository 07/01/2018 [id number] Ambulatory General acute hospital ding:PSN Repository 06/29/2018 [id number] Ambulatory General acute hospital ding:PSN Repository 06/29/2018 [id number] Ambulatory BMSBuilding: [facility] Repository 06/16/2018 [id number] Ambulatory General acute hospital ding:SL Repository 06/02/2018/06/02/20 [id number] Ambulatory BMSBuilding: [address] Repository 05/18/2018/05/20/20 [id number] Ambulatory [address] Repository 03/02/2018/03/03/20 [id number] Ambulatory [address] Repository 02/09/2018 [id number] Ambulatory General acute hospital ding:CT Repository 02/09/2018/02/10/20 [id number] Ambulatory [address] Other [place] Repository 02/09/2018/02/10/20 [id number] Ambulatory [facility] [address] MEDICAL Repository CENTERBuildi ng:CAGWS 02/02/2018 [id number] Ambulatory [facility] Repository 02/02/2018/02/04/20 [id number] Ambulatory [address] Repository 02/02/2018/02/04/20 [id number] Ambulatory [address] Repository 01/28/2018/01/29/20 [id number] Ambulatory [address] Repository 01/28/2018/01/30/20 [id number] Ambulatory [address] Repository 01/28/2018 [id number] Ambulatory [facility] MEDICAL [place] 01/25/2018/01/26/20 [id number] [place], Inpatient [address] MEDICAL Repository [place]CCLERoom: POOLBed: 04 01/25/2018/01/26/20 [id number] [place], Ambulatory [address] Other [place] Repository 01/22/2018/01/23/20 [id number] Ambulatory [address] Main [place] Repository 01/18/2018/01/20/20 [id number] Ambulatory [address] Main [place] Repository 01/18/2018/01/19/20 [id number] Ambulatory [address] Main [place] Repository 01/18/2018/01/19/20 [id number] Ambulatory [address] Other [place] Repository 01/18/2018/01/19/20 [id number] Ambulatory [address] MEDICAL [place] 01/15/2018/01/16/20 [id number] Emergency [place] [address] ding:ED Repository 01/13/2018/07/15/20 [id number] Ambulatory [address] Main [place] Repository 01/07/2018 [id number] Ambulatory [facility] Repository 01/07/2018/01/08/20 [id number] Ambulatory [address] Repository PAYERS PAYERS ENCOUNTER GUARANTOR PAYER SUBSCRIBER SOURCE 12/07/2018 BRITNEY Humphrey Primary Insurance:MMAbiodun [id number] MEDICAREPolic CUMMINSDOB: Community [place] Number: [id number] [place], [place] [id number] Repository 90492Rbb: 330) Date:[id number] [address], [place] [address]VD: 12/07/2018 Secondary NOT GIVENUNK Maya Insurance:SELF PAY [facility] Number: Effective Repository Date:2018-12-01 11/01/2018 BRITNEY Humphrey Primary Insurance:MMO BRITNEY Blueoster [id number] MEDICAREPolicy CUMMINSDOB: [facility] [place] Number: [id number] [place], [place] [id number] Repository [address]Rvc: (330) Date:[id number] [address] (HP) [address], [place] [address]CF: 11/01/2018 Secondary NOT GIVENUNK [place] Insurance:SELF PAY [facility]: Effective Repository Date:2018-09-24 09/23/2018 BRITNEY Humphrey Primary Insurance:MMO BRITNEY Humphrey [place] [id number] MEDICAREPolicy CUMMINSDOB: [facility] [place] Number: [id number] [place], [place] [id number] Repository [address]Usc: ([phone]) Date:[phone] () [address], [place] [address]VT: 09/23/2018 Secondary NOT GIVENUNK [place] Insurance:SELF PAY [facility] Number: Effective Repository Date:2018-09-13 08/12/2018 BRITNEY Humphrey Primary Insurance:MMO BRITNEY Humphrey [facility] CUMMINSDOB: MEDADVANTAGE CHOICE CUMMINSDOB: [facility] [facility] Number: [id number] [facility] [id number], [place] Date: [address]Qzu: () 07/02/2018 BRITNEY Humphrey Primary Insurance:MMO BRITNEY Blueoster [id number] MEDICAREPolicy CUMMINSDOB: [facility] [place] Number: [id number] [place], [place] [id number] Repository [address]Etu: (330) Date:4784-61-45JZ [address] (HP) [address] [place] [id number]: 07/02/2018 Secondary NOT GIVENUNK [place] Insurance:SELF PAY [facility] Number: Effective Repository Date:2018-07-02 07/01/2018 BRITNEY Humphrey Primary Insurance:MMO BRITNEY Blueoster [id number] MEDICAREPolicy CUMMINSDOB: Community [place] Number: [id number] [place], [place] [id number] Repository 15[address]Que: (330) Date:0038-21-41LZ [address] (HP) [address] [place] [id number]: 07/01/2018 Secondary NOT GIVENUNK [place] Insurance:SELF PAY [facility] Number: Effective Repository Date:2018-06-02 06/29/2018 BRITNEY Humphrey Primary Insurance:MMO BRITNEY Humphrey [place] [id number] MEDICAREPolicy CUMMINSDOB: Community [place] Number: [id number] [place], [place] [id number] Repository [address]Qzi: (330) Date:0941-44-33MA [address]OX (HP) [address] [place] [id number]: 06/29/2018 Secondary NOT GIVENUNK [place] Insurance:SELF PAY [facility] Number: Effective Repository Date:2018-06-02 06/29/2018 BRITNEY Humphrey Primary Insurance:MMO BRITNEY Humphrey [place] [id number] MEDICAREPolicy CUMMINSDOB: Community [place] Number: [id number] [place], [place] [id number] Repository [address]Ygc: (330) Date:8744-90-25BN [address] () [address] [place] [id number]: 06/29/2018 Secondary NOT GIVENUNK [place] Insurance:SELF PAY [facility] Number: Effective Repository Date:2018-06-29 06/16/2018 BRITNEY Humphrey Primary Insurance:MMO BRITNEY Humphrey [place] [id number] MEDICAREPolicy CUMMINSDOB: Community [place] Number: [id number] [place], [place] [id number] Repository [address]Jgw: (330) Date:9284-91-03HE [address] (HP) [address] [place] [phone]: 06/16/2018 Secondary NOT GIVENUNK [place] Insurance:SELF PAY [facility] Number: Effective Repository Date:2018-06-04 06/02/2018 BRITNEY Milagro Primary Insurance:MMO BRITNEY Humphrey [place] [id number] MEDICAREPolicy CUMMINSDOB: Community [place] Number: [id number] [place], [place] [id number] Repository [address]Uqn: (330) Date:5973-59-59EE [phone] (HP) [address], [place] [address]SF: 06/02/2018 Secondary NOT GIVENUNK [place] Insurance:SELF PAY [facility] Number: Effective Repository Date:2018-01-07 02/09/2018 BRITNEY J Primary Insurance:LUANO BRITNEY Humphrey [place] [id number] MEDICAREPolicy CUMMINSDOB: [facility] Number: [id number] [place], [place] [id number] Repository [address]Dlt: (330) Date:9521-42-73UQ [phone] () [place], [place] [address]CQ: 02/09/2018 Secondary NOT GIVENUNK [place] Insurance:SELF PAY [facility] Number: Effective Repository Date:2018-02-02 02/09/2018 BRITNEY Humphrey Primary Insurance:MMO BRITNEY Milagro [facility] CUMMINSDOB: MEDADVANTAGE CHOICE [facility]OB[facility] Number: [id number] [facility] [id number] [place], [place] Date: [address]Vgw: () 01/28/2018 BRITNEY Humphrey Primary Insurance:MMO BRITNEY Milagro [facility] CUMMINSDOB: MEDADVANTAGE CHOICE CUMMINSDOB: [facility] System OPolicy Number: [id number] Repository [place] [id number] [place], [place] Date: [address]Frk: () 01/25/2018 BRITNEY Humphrey Primary Insurance:MMO BRITNEY [facility] CUMMINSDOB: MEDADVANTAGE CHOICE CUMMINSDOB: [facility] System OPolicy Number: [id number] Repository [facility] [id number] [place], [place] Date: [address]Tfq: () 01/18/2018 BRITNEY Humphrey Primary Insurance:MMO BRITNEY [facility] CUMMINSDOB: MEDADVANTAGE CHOICE CUMMINSDOB: Health System OPolicy Number: [id number] Repository [facility] [id number] [place], [place] Date: [address]Ygl: () 01/15/2018 BRITNEY Humphrey Primary Insurance:MMO BRITNEY Humphrey Maya [id number] MEDICAREPolicy CUMMINSDOB: [facility] Number: [id number] [place], [place] [id number] Repository [address]Qrs: (330) Date:1135-73-89EI [address]OX (HP) [address], [place] [address]YX: 01/15/2018 Secondary NOT GIVENUNK [place] Insurance:SELF PAY [facility] Number: Effective Repository Date:2018-01-15
== END ==
PROVIDERS: Family Provider Family Medicine; PCP Family Medicine; Visit Provider Internal Medicine Critical Care Medicine
DX: G47.33 Obstructive sleep apnea (adult) (pediatric) (principal)
CPT/HCPCS: 95811

== ENCOUNTER → 2019-12-08 20:16 | Outpatient (CLI) | payer MEDICARE, SELFPAY ==
[2019-09-13 09:03] VITALS: BMI 34.0
[2019-12-08] MEDS: Zolpidem Tartrate 5 MG Tablet PO (21:30)
== END ==
PROVIDERS: Family Provider Family Medicine; PCP Family Medicine; Referring Provider Nurse Practitioner Acute Care; Visit Provider Nurse Practitioner Acute Care
DX: G47.33 Obstructive sleep apnea (adult) (pediatric) (principal)
CPT/HCPCS: 95811

== ENCOUNTER → 2019-12-27 | Outpatient (CLI) | payer MEDICARE, SELFPAY ==
[2019-09-13 09:03] VITALS: BMI 34.0
== END | disposition home or self-care (01) ==
PROVIDERS: PCP Family Medicine; Referring Provider Nurse Practitioner Acute Care; Visit Provider Nurse Practitioner Acute Care
DX: Z46.89 Encounter for fitting and adjustment of other specified devices (principal)

== ENCOUNTER → 2020-01-04 11:07 | Outpatient (CLI) | payer MEDICARE, SELFPAY ==
[2020-01-04 08:21] VITALS: BMI 34.0
[2020-01-04 12:08] LABS: Absolute Lymphocyte Count 3.17 X10^3/uL (0.83-4.51); Absolute Neutrophil Count 5.5 X10^3/uL (2.0-7.7); Basophil# 0.06 X10^3/uL; Basophil% 0.6 % (0-1); Eosinophils% 2.1 % (0-5); Hematocrit 44.8 % (37-47); Hemoglobin 14.9 g/dL (12.0-15.0); Lymphocyte # 3.17 X10^3/ul (4.0); Lymphocyte % 32.8 % (19-41); Mean Corp Hgb Conc 33.3 g/dL (32-36); Mean Corpuscular Hgb 29.5 pg (27.0-32.0); Mean Corpuscular Volume 88.7 fL (81-99); Mean Platelet Vol. 9.3 fl (6.2-12.0); Monocyte# 0.75 X10^3/uL; Monocyte% 7.8 % (0-10); NRBC Flagged by Analyzer 0 % (0-5); Neutrophil # 5.46 X10^3/uL (2.7-7.7); Neutrophil % 56.4 % (47-70); Platelet Count 396 K/mm3 (150-450); RBC Distribution Width CV 12.4 % (11.6-14.6); RBC Distribution Width SD 40.2 fl (35.1-43.9); Red Blood Count 5.05 M/mm3 (4.2-5.4); White Blood Count 9.7 K/mm3 (4.4-11.0)
[2020-01-07 03:07] LABS: Alternaria alternata <0.10 kU/L (Class 0); Bermuda Grass <0.10 kU/L (Class 0); Bluegrass, Kentucky <0.10 kU/L (Class 0); Cat Hair/Dander, Standard <0.10 kU/L (Class 0); D farinae Mite 0.25 kU/L (Class 0/I); D pteronyssinus 0.12 kU/L (Class 0/I); Dog Epithelia <0.10 kU/L (Class 0); Elm, American White <0.10 kU/L (Class 0); Oak, White <0.10 kU/L (Class 0); Plantain, English <0.10 kU/L (Class 0); Ragweed, Short/Common <0.10 kU/L (Class 0)
[2020-01-07 10:14] LABS: Mouse Urine <0.10 kU/L (Class 0)
== END ==
PROVIDERS: PCP Family Medicine; Referring Provider Nurse Practitioner Acute Care; Visit Provider Nurse Practitioner Acute Care
DX: R06.09 Other forms of dyspnea (principal); J45.909 Unspecified asthma, uncomplicated
CPT/HCPCS: 36415; 85025; 86003

== ENCOUNTER 2020-02-10 15:24 | Emergency (ER) | payer MEDICARE, SELFPAY ==
[2020-01-25 15:08] VITALS: BMI 467.0
[2020-02-10 15:25] VITALS: BP 145/88; PULSE 109; RESP 20; TEMP 36.2; O2SAT 96; BMI 35.9
--- NOTE | 2020-02-10 15:50 | EKG12_ITS ---
Test Reason : COUGH Blood Pressure : / mmHG Vent. Rate : 078 BPM Atrial Rate : 078 BPM P-R Int : 122 ms QRS Dur : 086 ms QT Int : 364 ms P-R-T Axes : 067 036 061 degrees QTc Int : 414 ms Normal sinus rhythm Possible Left atrial enlargement Borderline ECG Confirmed by GRACIELA ROGERS ([id number]), photography editor JOLIE OLGUIN ([id number]) on 02/13/2020 1:08:14 PM Referred By: JOJO Confirmed By:GRACIELA ROGERS
[2020-02-10 15:59] VITALS: BP 145/88; BP 157/120; PULSE 109; PULSE 90; RESP 12; RESP 20; TEMP 36.2; O2SAT 96; O2SAT 97; BMI 35.9
--- NOTE | 2020-02-10 16:05 | RAD_ITS ---
STUDY: X-RAY CHEST REASON FOR EXAM: Female, 59 years old. sob and cough X 2 weeks TECHNIQUE: Single AP portable view of the chest. COMPARISON: 01/15/2018 FINDINGS: The lungs are clear and expanded. There is no demonstrated pleural abnormality. Normal size heart. Normal mediastinum and joseluis. Normal visualized pulmonary arteries. Normal visualized aortic arch and descending thoracic aorta. Normal visualized thoracic spine. Normal visualized ribs, clavicles, and shoulders. There is no demonstrated abnormality of the visualized soft tissue structures of the upper abdomen. RAD/Chest 1 View (Portable) IMPRESSION: Normal x-ray examination of the chest. Electronically Signed: Rayshawn Bhardwaj MD at 16:28 EDT Tel , Service support ,
--- NOTE | 2020-02-10 16:10 | ED.DCSUM_ITS ---
History of Present Illness Chief Complaint: Cough Informant: Patient Onset: Weeks Activity at onset: Exertion Timing: Continuous Quality: Dyspnea on exertion, Orthopnea Worsened by: Coughing Relieved by: Nothing Associated Symptoms: Chills, Fever - 1 week ago Chest Pain: - - catch Narrative: Is a 59-year-old female with history of COPD, obstructive sleep apnea, pretension, hyperlipidemia and peripheral edema with worsening shortness of breath. Patient states she has been having worsening cough and shortness of breath of the past 3 weeks. She is been on 2 courses of a Z-Lance is currently on doxycycline as well as prednisone taper. She feels over the past few days her shortness of breath is worsened. She also states her cough is changed. Before is very thick and now her cough is loosened up. She states her cough is been productive of clear and yellow sputum. She states her symptoms are worse when she lays down or exerts herself. She denies any worsening swelling of her legs. She has used her albuterol nebulizer couple times over the past few days is not sure if is providing her any relief. Patient has been self quarantine herself in the past 2 weeks has not been in contact with anyone. She denies chest pain right now but states that every once while she gets a catch in her chest. She points to her left anterior chest wall for where she feels it. She denies any history of DVT or PE. She denies any other complaints at this time and GI or symptoms. Past Medical History - Allergies and Home Meds Allergies/Adverse Reactions: Allergies acetaminophen Allergy (Severe, Verified 02/10/20 15:25) Hives hydrocodone bitartrate [From Vicodin] Allergy (Severe, Verified 02/10/20 15:25) Hives hydromorphone HCl [From Dilaudid] Allergy (Severe, Verified 02/10/20 15:25) Hives, feels like on fire Penicillins Allergy (Severe, Verified 02/10/20 15:25) Anaphylaxis propoxyphene napsylate [From Darvocet-N 100] Allergy (Severe, Verified 02/10/20 15:25) Hives Sulfa (Sulfonamide Antibiotics) Allergy (Severe, Verified 02/10/20 15:25) Hives adhesive Allergy (Verified 02/10/20 15:25) Rash budesonide [From Symbicort] Allergy (Verified 02/10/20 15:25) Angioedema cephalexin monohydrate [From Keflex] Allergy (Verified 02/10/20 15:25) Rash formoterol [From Symbicort] Allergy (Verified 02/10/20 15:25) Angioedema Heparin Analogues Allergy (Verified 02/10/20 15:25) severe bruising and rash latex Allergy (Verified 02/10/20 15:25) Rash levofloxacin [From Levaquin] Allergy (Verified 02/10/20 15:25) Swelling, rash oxycodone HCl [From Percocet] Allergy (Verified 02/10/20 15:25) Hives oxytocin Allergy (Verified 02/10/20 15:25) Hives Primary Care Physician: Andrew Broderick III, MD [Primary Care Provider] - Past Medical History: - - Tobacco use, hypertension, hyperlipidemia, obstructive sleep apnea, asthma, type 2 diabetes mellitus Surgical History: appendectomy, cholecystectomy, - - reports 2 neck surgery,sinus surgeries,hiatal hernia Smoking Status: Current every day smoker - Family History Maternal Family History: Family History (Last Reviewed 01/04/20 @ 10:13 by SARITHA Ontiveros) Mother Cancer Father Cancer Sister Cancer Family History: Reports: No pertinent history Review of Systems General: Reports: Malaise. Denies: Chills, Fever, Sweats Eyes: Denies: Visual changes - bilaterally, Diplopia ENT: Denies: Rhinorrhea, Sore throat Cardiovascular: Reports: Chest pain. Denies: Palpitations, Heart racing Respiratory: Reports: Dyspnea, Cough, Sputum, Dyspnea on exertion Gastrointestinal: Denies: Abdominal pain, Nausea, Vomiting, Diarrhea, Melena, Hematochezia Genitourinary: Denies: Dysuria, Hematuria, Frequency Musculoskeletal: Denies: Back pain, Extremity Pain Skin: Denies: Rash, Wounds Neurological: Denies: Headache, Weakness, Numbness Physical Exam Vital Signs/Narrative: Vital Signs Temp Pulse Resp BP Pulse Ox 02/10/20 15:59 97.2 F L 109 H 20 H 145/88 H 96 02/10/20 15:25 97.2 F L 109 H 20 H 145/88 H 96 Inital Vital Signs reviewed: Yes General: Well nourished, Well developed, No Acute Distress Head: Normocephalic, Atraumatic Eyes: Perrl, EOMI ENT: Moist mucous membranes, No rhinorrhea Neck: Supple, Nontender Cardiovascular: Regular rate, Regular rhythm, No murmurs Respiratory: No distress, CTA bilaterally, Chest nontender. Negative for: Rales, Rhonchi, Wheezing, Diminished, Decreased Air Movement, Chest tenderness Abdomen: Soft, Nontender, Nondistended, Normal bowel sounds Back: Nontender, Normal Inspection Extremities: Nontender, No edema Skin: Normal color, No rash Neurological: Alert, Oriented x3, Cranial nerves II-XII grossly intact, Normal Strength, Normal Sensation Psychological: Normal affect, Normal Mood Diagnostic/Tx/Re-eval Chest X-Ray - ED: 1 View, Read by ED Physician, Read by Radiologist Clinical Impression(s) from Imaging Studies Chest X-Ray 02/10/20 16:05 IMPRESSION: Normal x-ray examination of the chest. Electronically Signed: Rayshawn Bhardwaj MD at 16:28 EDT Tel , Service support , Laboratory Data 02/10/20 02/10/20 02/10/20 16:00 16:00 16:00 WBC 19.9 H RBC 5.45 H Hgb 15.7 H Hct 46.6 MCV 85.5 MCH 28.8 MCHC 33.7 RDW Std Deviation 38.9 RDW Coeff of Adonay 12.6 Plt Count 438 MPV 8.8 Immature Gran % (Auto) 1.000 H Neut % (Auto) 74.6 H Lymph % (Auto) 17.2 L [place] % (Auto) 6.7 Eos % (Auto) 0.2 Baso % (Auto) 0.3 Absolute Neuts (auto) 14.9 H Absolute Lymphs (auto) 3.43 Nucleated RBC % 0 D-Dimer Quant (PE/DVT) 0.35 Sodium 139 Potassium 3.7 Chloride 102 Carbon Dioxide 26.0 Anion Gap 11 BUN 17 Creatinine 1.01 Estim Creat Clear Calc 45.26 Est GFR (MDRD) Af Amer 72 Est GFR (MDRD) Non-Af 60 BUN/Creatinine Ratio 16.8 Glucose 113 H Calcium 9.4 Troponin I < 0.015 B-Natriuretic Peptide 02/10/20 16:00 WBC RBC Hgb Hct MCV MCH MCHC RDW Std Deviation RDW Coeff of Adonay Plt Count MPV Immature Gran % (Auto) Neut % (Auto) Lymph % (Auto) [place] % (Auto) Eos % (Auto) Baso % (Auto) Absolute Neuts (auto) Absolute Lymphs (auto) Nucleated RBC % D-Dimer Quant (PE/DVT) Sodium Potassium Chloride Carbon Dioxide Anion Gap BUN Creatinine Estim Creat Clear Calc Est GFR (MDRD) Af Amer Est GFR (MDRD) Non-Af BUN/Creatinine Ratio Glucose Calcium Troponin I B-Natriuretic Peptide 17.0 - Rhythm Strip Rhythm Strip: Sinus Rhythm Rate: 78 Ectopy: None - EKG Initial EKG Interpretation: Sinus Rhythm, - - Sinus rhythm at a rate of 78Normal intervalsNormal axisNormal ST segments - Medical Decision Making Evaluated for progressive shortness of breath. Patient does have a history of asthma and is currently on antibiotics as well as a steroid taper. Her shortness of breath seems to be more related to her cough becoming more produc tive with looser sputum. Patient is initially tachycardic but not hypoxic on room air. Patient is well-appearing. She speaks in rapid long sentences. She does not catch her breath while she is talking. She does appear a bit anxious. Patient is been self quarantine for the past 2 weeks and has had no known exposure to anybody stating likelihood of her developing covid 19 at this point is quite low. In addition she does not have any cough, wheezing or any other objective findings. Patient's d-dimer is normal, her chest x-ray that showed acute infiltrates. Her CBC is remarkable for shift as well as leukocytosis. I do attribute this to her current prednisone taper. Patient is on day 3 of 40 mg of prednisone. Chart review does show that in 2018 patient had a leukocytosis of 22 without any infectious symptoms as well. At this time I do not think that patient needs admitted for her leukocytosis. I do think she stable for outpatient follow-up. She is counseled on signs and symptoms require return the emergency room. She verbalizes agreement understand this plan. She is discharged home in stable condition. ED Disposition - Plan for ED Patient: Disposition: Home or Assisted Living Diagnosis: Dyspnea, Cough, Leukocytosis Instructions: ED REACTIVE AIRWAY DISEASE Adult, ED Dyspnea Referrals: Andrew Broderick III, MD [Primary Care Provider] - Additional Instructions: These follow-up with Dr. Manzanares, pulmonology next week. Call the office tomorrow to make an appointment. Continue taking your antibiotics and steroids as prescribed. Return the emergency room with any worsening symptoms. At this time I do believe that you are safe to go home.
[2020-02-10 16:20] LABS: Absolute Lymphocyte Count 3.43 X10^3/uL (0.83-4.51); Absolute Neutrophil Count 14.9 X10^3/uL (2.0-7.7); Basophil# 0.06 X10^3/uL; Basophil% 0.3 % (0-1); Eosinophil# 0.04 X10^3/uL; Eosinophils% 0.2 % (0-5); Hematocrit 46.6 % (37-47); Hemoglobin 15.7 g/dL (12.0-15.0); Lymphocyte # 3.43 X10^3/ul (4.0); Lymphocyte % 17.2 % (19-41); Mean Corp Hgb Conc 33.7 g/dL (32-36); Mean Corpuscular Hgb 28.8 pg (27.0-32.0); Mean Corpuscular Volume 85.5 fL (81-99); Mean Platelet Vol. 8.8 fl (6.2-12.0); Monocyte# 1.33 X10^3/uL; Monocyte% 6.7 % (0-10); NRBC Flagged by Analyzer 0 % (0-5); Neutrophil # 14.86 X10^3/uL (2.7-7.7); Neutrophil % 74.6 % (47-70); Platelet Count 438 K/mm3 (150-450); RBC Distribution Width CV 12.6 % (11.6-14.6); RBC Distribution Width SD 38.9 fl (35.1-43.9); Red Blood Count 5.45 M/mm3 (4.2-5.4); White Blood Count 19.9 K/mm3 (4.4-11.0)
[2020-02-10 16:24] LABS: D-Dimer Quantitative (DVT/PE) 0.35 FEU/ug/m (0.27-0.49)
[2020-02-10 16:36] LABS: Anion Gap 11 (5-15); BUN 17 mg/dL (7-18); BUN/Creat Ratio 16.8 RATIO (10-20); Calcium,Total 9.4 mg/dL (8.5-10.1); Chloride 102 mmol/L (98-107); Creatinine, Serum 1.01 mg/dL (0.55-1.02); EST Glomerular Filtration Rate 60 mL/min (>60); Est Glom Filt Rate - Afr Amer 72 mL/min (>60); Estimated Creatinine Clearance 45.26 ml/min; Glucose 113 mg/dL (74-106); Potassium 3.7 mmol/L (3.5-5.1); Sodium Level 139 mmol/L (136-145)
[2020-02-10 17:01] VITALS: BP 138/87; PULSE 78; RESP 15; O2SAT 96
== END 2020-02-10 17:12 | disposition home or self-care (01) ==
PROVIDERS: Emergency Provider Emergency Medicine; PCP Family Medicine
DX: R06.00 Dyspnea, unspecified (principal); R05 Cough; D72.829 Elevated white blood cell count, unspecified; E78.5 Hyperlipidemia, unspecified; G47.33 Obstructive sleep apnea (adult) (pediatric); J44.9 Chronic obstructive pulmonary disease, unspecified; F17.200 Nicotine dependence, unspecified, uncomplicated; Z79.2 Long term (current) use of antibiotics; Z79.51 Long term (current) use of inhaled steroids; Z79.52 Long term (current) use of systemic steroids
CPT/HCPCS: 71045; 80048; 83880; 84484; 85025; 85379; 93005; 99284

== ENCOUNTER → 2020-02-17 14:02 | Outpatient (CLI) | payer MEDICARE, SELFPAY ==
[2020-01-04 08:21] VITALS: BMI 34.0
[2020-02-14 09:06] VITALS: BMI 35.9
--- NOTE | 2020-02-17 14:04 | CT_ITS ---
STUDY: LOW DOSE CT LUNG CANCER SCREENING REASON FOR EXAM: Female, 59 years old. TOBACCO USE. 1/2 PPD X 50 YRS. RADIATION DOSAGE (If Supplied By Facility): CTDIvol = ( 3.02 ) mGy, DLP = ( 91.01 ) mGycm TECHNIQUE: No contrast was administered. Low dose technique was utilized (average mAS-38 and kVp 120). 1.25 mm axial source images with a slice interval of 1.25-mm were reconstructed in lung windows. 2.5 mm axial source images with a slice interval of 2.5-mm were reconstructed in lung windows. 5.0 mm axial source images with a slice interval of 5.0-mm were reconstructed in soft tissue windows. Nodule measured using lung windows on PACS and/or independent workstation with automated measurement of minimum and maximum diameter. Nodule measurement reported as average diameter rounded to the nearest whole number. Growth is defined as an increase ins size of greater than 1.5 mm. COMPARISON: Comparison is made with prior study of February 09, 2018. NODULES: No suspicious nodule is seen. Emphysema: Emphysematous changes. Apical scarring more prominent in the right upper lobe with some blebs in the upper lobes. Focal scarring and bronchiectasis in the anterior medial aspect of the lingular segment of the left upper lobe. This abuts the left cardiac border. Aorta: Mild degree of atherosclerotic calcification of the aortic arch. Coronary arteries: Coronary artery calcification. Heart: Unremarkable Mediastinal nodes: Small benign-appearing mediastinal lymph nodes. Other chest and abdominal findings: Mild degenerative changes of the thoracic spine. CT/Low Dose CT Lung Screening IMPRESSION: Lung-RADS category 2 - Continue annual screening with LDCT in 12 months. IMPORTANT NOTES FOR USE: ACR Lung-RADS Version 1.0 Assessment Categories Release Date: March 13, 2014 Category: Coded 0-4 bases on nodule(s) with highest degree of suspicion. Negative screen is defined as categories 1 and 2; a positive screen is defined as categories 3 and 4. Category 3 and 4A nodules that are unchanged on interval CT should be coded as category 2, and individuals returned to screening in 12 months. Category 4X: Category 3 or 4 nodules with additional imaging findings that increase the suspicion of lung cancer, such as spiculation, GGN that doubles in size in 1 year, enlarged lymph notes, etc. Category Modifiers: S (significant finding unrelated to lung cancer) and C (prior history of treated lung cancer) may be added to the 0-4 Lung-RADS Electronically Signed: Randell Cornell, at 14:35 EDT , Service support ,
== END ==
PROVIDERS: PCP Family Medicine; Referring Provider Nurse Practitioner Acute Care; Visit Provider Nurse Practitioner Acute Care
DX: F17.210 Nicotine dependence, cigarettes, uncomplicated (principal)
CPT/HCPCS: G0297

== ENCOUNTER → 2020-02-20 | Outpatient (CLI) | payer MEDICARE, SELFPAY ==
[2020-02-14 09:06] VITALS: BMI 35.9
[2020-02-20 13:37] VITALS: PULSE 103; PULSE 106; PULSE 108; PULSE 110; PULSE 113; PULSE 114; PULSE 116; O2SAT 93; O2SAT 95; O2SAT 96
--- NOTE | 2020-02-21 13:47 | PCM.PSN.6M ---
PSN 6 Minute Walk Test - 6 Minute Walk Test 6 Minute Walk Test: 6 Minute Walk Test PSN:6-Minute Walk Test Start: 02/20/20 13:37 Freq: Status: Active Protocol: [id number].[id number] Document 02/20/20 13:37 FAVIAN (Rec: 02/20/20 13:41 FAVIAN [id number]) 6 Minute Walk Test Date Performed 02/20/20 Time Performed 12:30 Height 5 ft 1 in Weight: 180 lb Weight in Pounds 180.[address]: Kumar Manzanares Assistive device used: None Pre-test Oxygen Delivery Method Room Air Pulse Ox (%) 96 Pulse Rate (60-100 beats/min) 113 H Dyspnea Linette Scale (0-10) 0.5 Exertion Linette Scale (6-20) 6 1st minute Oxygen Delivery Method Room Air Pulse Ox (%) 95 Pulse Rate (60-100 beats/min) 116 H 2nd minute Oxygen Delivery Method Room Air Pulse Ox (%) 95 Pulse Rate (60-100 beats/min) 114 H 3rd minute Oxygen Delivery Method Room Air Pulse Ox (%) 95 Pulse Rate (60-100 beats/min) 108 H 4th minute Oxygen Delivery Method Room Air Pulse Ox (%) 95 Pulse Rate (60-100 beats/min) 108 H 5th minute Oxygen Delivery Method Room Air Pulse Ox (%) 95 Pulse Rate (60-100 beats/min) 106 H 6th minute Oxygen Delivery Method Room Air Pulse Ox (%) 93 Pulse Rate (60-100 beats/min) 110 H Dyspnea Linette Scale (0-10) 4 Exertion Linette Scale (6-20) 12 Post-test Oxygen Delivery Method Room Air Pulse Ox (%) 96 Pulse Rate (60-100 beats/min) 103 H Full Laps Walked 17 Partial Lap, Number of Tiles Walked 36 Total Distance Walked (ft) 1039 - Interpretation Interpretation: The patient ambulated 1039 feet over the course of 6 minutes beginning on room air without assistive devices or breaks. Pretesting oxygen saturation was noted to be 96% on room air. With ambulation, the norbert oxygen saturation was 93%. There was no significant exertional oxygen desaturation. - Recommendations Recommendations: There is no indication for the use of supplemental oxygen at this time.
== END | disposition home or self-care (01) ==
PROVIDERS: PCP Family Medicine; Referring Provider Nurse Practitioner Acute Care; Visit Provider Nurse Practitioner Acute Care
DX: R06.09 Other forms of dyspnea (principal)
CPT/HCPCS: 94618

== ENCOUNTER → 2020-05-17 | Outpatient (CLI) | payer MEDICARE, SELFPAY ==
[2020-01-04 08:21] VITALS: BMI 34.0
== END | disposition home or self-care (01) ==
LOC: SL 12:07
PROVIDERS: PCP Family Medicine; Referring Provider Nurse Practitioner Acute Care; Visit Provider Nurse Practitioner Acute Care
DX: G47.33 Obstructive sleep apnea (adult) (pediatric) (principal)
CPT/HCPCS: 98960; G0463

== ENCOUNTER → 2021-08-20 14:51 | Outpatient (CLI) | payer MEDICARE, SELFPAY ==
[2021-08-20 15:05] LABS: Absolute Lymphocyte Count 2.91 X10^3/uL (0.83-4.51); Absolute Neutrophil Count 6.1 X10^3/uL (2.0-7.7); Basophil# 0.04 X10^3/uL; Basophil% 0.4 % (0-1); Eosinophil# 0.18 X10^3/uL; Eosinophils% 1.8 % (0-5); Hematocrit 39.7 % (37-47); Hemoglobin 13.8 g/dL (12.0-15.0); Lymphocyte # 2.91 X10^3/ul (0.83-4.51); Lymphocyte % 28.8 % (19-41); Mean Corp Hgb Conc 34.8 g/dL (32-36); Mean Corpuscular Hgb 30.3 pg (27.0-32.0); Mean Corpuscular Volume 87.3 fL (81-99); Mean Platelet Vol. 8.7 fl (6.2-12.0); Monocyte# 0.85 X10^3/uL; Monocyte% 8.4 % (0-10); NRBC Flagged by Analyzer 0 % (0-5); Neutrophil # 6.06 X10^3/uL (2.7-7.7); Neutrophil % 59.8 % (47-70); Platelet Count 349 K/mm3 (150-450); RBC Distribution Width CV 12.8 % (11.6-14.6); Red Blood Count 4.55 M/mm3 (4.2-5.4); White Blood Count 10.1 K/mm3 (4.4-11.0)
[2021-08-24 18:07] LABS: Aspirgillus flavus Negative (Neg:<1:1); Aspirgillus fumigatus Negative (Neg:<1:1); Aspirgillus niger Negative (Neg:<1:1); Cytoplasmic Ab (C-ANCA) <1:20 titer (Neg:<1:20)
[2021-08-25 08:36] LABS: Immunoglobulin E 7 IU/mL (6-495); Perinuclear Ab (P-ANCA) <1:20 titer (Neg:<1:20)
== END ==
PROVIDERS: PCP Family Medicine; Referring Provider Nurse Practitioner Acute Care; Visit Provider Nurse Practitioner Acute Care
DX: J45.40 Moderate persistent asthma, uncomplicated (principal)
CPT/HCPCS: 36415; 82785; 85025; 86256; 86606

== ENCOUNTER → 2021-08-30 | Outpatient (CLI) | payer MEDICARE, SELFPAY | END | disposition home or self-care (01) | LOC: LABSPEC 14:04 | PROVIDERS: PCP Family Medicine; Referring Provider Physician Assistant Surgical; Visit Provider Physician Assistant Surgical | DX: Z11.52 Encounter for screening for COVID-19 (principal) | CPT/HCPCS: 87635; U0005; U0003 ==

== ENCOUNTER → 2021-09-16 15:06 | Outpatient (CLI) | payer MEDICARE, SELFPAY ==
--- NOTE | 2021-09-16 15:09 | CT_ITS ---
STUDY: LOW DOSE CT LUNG CANCER SCREENING REASON FOR EXAM: Female, 60 years old. smoker. One pack per day for 50 years. RADIATION DOSAGE (If Supplied By Facility): CTDIvol = ( 4.02 ) mGy, DLP = ( 124.86 ) mGycm TECHNIQUE: No contrast was administered. Low dose technique was utilized (average mAS-38 and kVp 120). 1.25 mm axial source images with a slice interval of 1.25-mm were reconstructed in lung windows. 2.5 mm axial source images with a slice interval of 2.5-mm were reconstructed in lung windows. 5.0 mm axial source images with a slice interval of 5.0-mm were reconstructed in soft tissue windows. Nodule measured using lung windows on PACS and/or independent workstation with automated measurement of minimum and maximum diameter. Nodule measurement reported as average diameter rounded to the nearest whole number. Growth is defined as an increase ins size of greater than 1.5 mm. COMPARISON: Comparison is made with prior study dated 02/17/2020. NODULES: No suspicious nodules are seen. Emphysema: Emphysematous changes. Stable scarring at the lung apices worse in the right lung apex. Bolus formation. Endobronchial lesion: None Aorta: Atherosclerotic plaque formation of the aortic arch. Coronary arteries: Coronary artery calcification. Heart: Unremarkable Pulmonary artery: Unremarkable Mediastinal nodes: Small benign appearing mediastinal lymph nodes. Other chest and abdominal findings: CT/Low Dose CT Lung Screening IMPRESSION: Lung-RADS category 2 - Continue annual screening with LDCT in 12 months. IMPORTANT NOTES FOR USE: ACR Lung-RADS Version 1.1 Assessment Categories Release Date: 2018 Category: Coded 0-4 bases on nodule(s) with highest degree of suspicion. Negative screen is defined as categories 1 and 2; a positive screen is defined as categories 3 and 4. Category 3 and 4A nodules that are unchanged on interval CT should be coded as category 2, and individuals returned to screening in 12 months. Category 4X: Category 3 or 4 nodules with additional imaging findings that increase the suspicion of lung cancer, such as spiculation, GGN that doubles in size in 1 year, enlarged lymph notes, etc. Category Modifiers: S (significant finding unrelated to lung cancer) Electronically Signed: Randell Cornell MD at 15:30 EDT , Service support ,
== END ==
PROVIDERS: PCP Family Medicine; Referring Provider Nurse Practitioner Acute Care; Visit Provider Nurse Practitioner Acute Care
DX: F17.210 Nicotine dependence, cigarettes, uncomplicated (principal); Z12.2 Encounter for screening for malignant neoplasm of respiratory organs
CPT/HCPCS: 71271

== ENCOUNTER → 2022-05-14 | Outpatient (CLI) | payer MEDICARE, SELFPAY ==
--- NOTE | 2022-05-14 13:37 | CT_ITS ---
STUDY: CT FACIAL BONES WITHOUT CONTRAST REASON FOR EXAM: Female, 61 years old. SINUSITIS RADIATION DOSAGE (If Supplied By Facility): CTDIvol = ( 28.14 ) mGy, DLP = ( 675.84 ) mGycm TECHNIQUE: The patient was scanned in a multi detector CT scanner. Sagittal and coronal images were reconstructed. Individualized dose optimization techniques were used for this CT. COMPARISON: None. FINDINGS: Normal soft tissue structures. Normal orbital shelby and orbital contents. Normal nasal bones and anterior nasal spine. Normal facial bones. There is no demonstrated fracture. Partial opacification of the maxillary sinus bilaterally. There has been prior resection of the medial wall of the maxillary sinuses bilaterally. Air-fluid level within the sphenoid sinus. There has been evidence of prior surgery involving the ethmoid sinuses. Nasal septal deviation towards the right side of the midline. CT/Sinus/Facial Bone IMPRESSION: Status post sinus surgery as described. Partial opacification of the maxillary sinuses bilaterally as well as a fluid level in the sphenoid sinus. Electronically Signed: Randell Cornell MD at 13:55 EDT ,
== END | disposition home or self-care (01) ==
LOC: CT 13:30
PROVIDERS: PCP Family Medicine; Referring Provider Otolaryngology; Visit Provider Otolaryngology
DX: J32.9 Chronic sinusitis, unspecified (principal)
CPT/HCPCS: 70486

== ENCOUNTER → 2022-08-22 | Outpatient (CLI) | payer MEDICARE, SELFPAY ==
--- NOTE | 2022-08-22 12:28 | US_ITS ---
INDICATION: PELVIC PAIN EXAMINATION: US Pelvis Non-OB Complete TECHNIQUE: Transabdominal and transvaginal pelvic ultrasound was performed. Grayscale, spectral waveform, and color flow Doppler evaluation of the adnexa. COMPARISON: None. FINDINGS: UTERUS: Anteverted. The uterus measures 7.4 x 3.3 x 1.8 cm. There is no uterine mass. The endometrial stripe measures 2 mm in AP diameter which is within normal limits. RIGHT OVARY: Measures 2.1 x 1.9 x 1.6 cm. Non-enlarged, normal echogenicity. There is normal arterial inflow and venous outflow present in the right ovary. LEFT OVARY: Not visualized. FREE FLUID: None. US/Pelvic (Non ) IMPRESSION: Nonvisualization of the left ovary. Otherwise normal right ovary and uterus. Electronically Signed: Mohan Dey MD at 19:17 EDT ,
== END | disposition home or self-care (01) ==
PROVIDERS: PCP Internal Medicine; Referring Provider Urology; Visit Provider Urology
DX: R10.2 Pelvic and perineal pain (principal)
CPT/HCPCS: 76856

== ENCOUNTER → 2022-09-17 | Outpatient (CLI) | payer MEDICARE, SELFPAY ==
--- NOTE | 2022-09-17 13:02 | CT_ITS ---
STUDY: LOW DOSE CT LUNG CANCER SCREENING REASON FOR EXAM: Female, 61 years old. smoker 1/2 PPD and gt; 30 pack history RADIATION DOSAGE (If Supplied By Facility): CTDIvol = ( 3.02 ) mGy, DLP = ( 99.68 ) mGycm TECHNIQUE: No contrast was administered. Low dose technique was utilized (average mAS-38 and kVp 120). 1.25 mm axial source images with a slice interval of 1.25-mm were reconstructed in lung windows. 2.5 mm axial source images with a slice interval of 2.5-mm were reconstructed in lung windows. 5.0 mm axial source images with a slice interval of 5.0-mm were reconstructed in soft tissue windows. COMPARISON: 09/16/2021 NODULES: Total lung nodules (excluding granulomas): 0 Emphysema: Mild centrilobular Endobronchial lesion: None Aorta: Atherosclerosis without aneurysmal dilation CORONARY ARTERIES: Coronary artery calcification is seen. Heart: Normal size Pulmonary artery: Unremarkable for unopacified technique. Mediastinal nodes: No adenopathy. Other chest and abdominal findings: None significant CT/Low Dose CT Lung Screening IMPRESSION: Lung-RADS category 1 - Continue annual screening with LDCT in 12 months. IMPORTANT NOTES FOR USE: ACR Lung-RADS Version 1.1 Assessment Categories Release Date: 2018 Category: Coded 0-4 bases on nodule(s) with highest degree of suspicion. Negative screen is defined as categories 1 and 2; a positive screen is defined as categories 3 and 4. Category 3 and 4A nodules that are unchanged on interval CT should be coded as category 2, and individuals returned to screening in 12 months. Category 4X: Category 3 or 4 nodules with additional imaging findings that increase the suspicion of lung cancer, such as spiculation, GGN that doubles in size in 1 year, enlarged lymph notes, etc. Category Modifiers: S (significant finding unrelated to lung cancer) Electronically Signed: Catracho Yanez (Brooks), at 15:32 EDT ,
== END | disposition home or self-care (01) ==
LOC: CT 12:44
PROVIDERS: PCP Internal Medicine; Referring Provider Nurse Practitioner Acute Care; Visit Provider Nurse Practitioner Acute Care
DX: Z87.891 Personal history of nicotine dependence (principal)
CPT/HCPCS: 71271

== ENCOUNTER → 2022-09-24 | Outpatient (CLI) | payer MEDICARE, SELFPAY ==
--- NOTE | 2022-09-24 16:59 | MRI_ITS ---
STUDY: MRI LUMBAR SPINE WITHOUT CONTRAST REASON FOR EXAM: Female, 61 years old. lower back pain TECHNIQUE: Standardized fat and water weighted pulse sequences were obtained in the sagittal and axial planes. COMPARISON: None FINDINGS: T12-L1: Normal endplates. Normal disc height, hydration and morphology. Normal bilateral facet joints. Normal central canal and bilateral lateral recesses. Normal bilateral intervertebral neural foramina. Normal lumbar lordosis. There is no substantial scoliosis. Normal conus medullaris that terminates at L1. L1-2: Small left paracentral disc herniation. Mild narrowing of the central. Normal bilateral lateral recesses. Normal bilateral intervertebral neural foramina. L2-3, L3-4, L4-5: Endplate spondylosis. Decreased disc height and small circumferential disc bulge. Degenerative changes of the bilateral facet joints. Mild narrowing of the central canal and bilateral intervertebral neural foramina. L5-S1: Endplate spondylosis. Decreased disc height . Degenerative changes of the bilateral facet joints. Mild narrowing of the bilateral intervertebral neural foramina. Normal visualized sacral ala. Normal visualized paraspinous soft tissue structures. MRI/Spine Lumbar (Routine) IMPRESSION: Multilevel degenerative changes, as described above. Electronically Signed: Kanika Aguilar MD at 6:11 [facility] ,
== END | disposition home or self-care (01) ==
LOC: MRI 16:58
PROVIDERS: PCP Internal Medicine; Referring Provider Orthopaedic Surgery; Visit Provider Orthopaedic Surgery
DX: M54.50 Low back pain, unspecified (principal)
CPT/HCPCS: 72148

== ENCOUNTER → 2022-10-02 | Outpatient (CLI) | payer MEDICARE, SELFPAY ==
[2022-10-02 18:06] LABS: Absolute Lymphocyte Count 2.39 X10^3/uL (0.83-4.51); Absolute Neutrophil Count 5.8 X10^3/uL (2.0-7.7); Basophil# 0.04 X10^3/uL; Basophil% 0.4 % (0-1); Eosinophil# 0.17 X10^3/uL; Eosinophils% 1.9 % (0-5); Hematocrit 43.6 % (37-47); Hemoglobin 14.3 g/dL (12.0-15.0); Lymphocyte # 2.39 X10^3/ul (0.83-4.51); Lymphocyte % 26.4 % (19-41); Mean Corp Hgb Conc 32.8 g/dL (32-36); Mean Corpuscular Hgb 29.3 pg (27.0-32.0); Mean Corpuscular Volume 89.3 fL (81-99); Mean Platelet Vol. 9.4 fl (6.2-12.0); Monocyte# 0.64 X10^3/uL; Monocyte% 7.1 % (0-10); NRBC Flagged by Analyzer 0 % (0-5); Neutrophil # 5.76 X10^3/uL (2.7-7.7); Neutrophil % 63.6 % (47-70); Platelet Count 403 K/mm3 (150-450); RBC Distribution Width CV 12.7 % (11.6-14.6); RBC Distribution Width SD 41.8 fl (35.1-43.9); Red Blood Count 4.88 M/mm3 (4.2-5.4); White Blood Count 9.1 K/mm3 (4.4-11.0)
[2022-10-02 18:14] LABS: T4 Free Direct 0.82 ng/dL (0.76-1.46); Thyroid Stim Hormone (TSH) 2.08 uIU/mL (0.358-3.74)
[2022-10-05 07:49] LABS: Thyroid Peroxidase AB < 9 IU/mL (0-34)
== END | disposition home or self-care (01) ==
LOC: MTLAB 14:13
PROVIDERS: PCP Internal Medicine
DX: L30.8 Other specified dermatitis (principal); L57.8 Other skin changes due to chronic exposure to nonionizing radiation; D64.9 Anemia, unspecified; Z41.9 Encounter for procedure for purposes other than remedying health state, unspecified
CPT/HCPCS: 36415; 84439; 84443; 85025; 86376

== ENCOUNTER 2022-10-23 07:14 | Day surgery (SDC) | payer MEDICARE, SELFPAY ==
--- NOTE | 2022-10-20 16:24 | EKG12_ITS ---
Test Reason : PRE-OP Blood Pressure : / mmHG Vent. Rate : 080 BPM Atrial Rate : 080 BPM P-R Int : 136 ms QRS Dur : 088 ms QT Int : 394 ms P-R-T Axes : 067 049 063 degrees QTc Int : 454 ms Normal sinus rhythm Normal ECG Confirmed by SIMON MONTILLA, EBENEZER ([id number]), international editorial producer DANIEL RUSSELL ([id number]) on 10/21/2022 12:39:34 PM Referred By: Inez Rousseau Confirmed By:EBENEZER MONTES MD
[2022-10-20 17:56] LABS: Anion Gap 6 (5-15); BUN 10 mg/dL (7-18); BUN/Creat Ratio 10.3 RATIO (10-20); Calcium,Total 9.1 mg/dL (8.5-10.1); Chloride 104 mmol/L (98-107); Creatinine, Serum 0.98 mg/dL (0.55-1.02); EST Glomerular Filtration Rate 62 mL/min (>60); Est Glom Filt Rate - Afr Amer 74 mL/min (>60); Glucose 139 mg/dL (74-106); Potassium 3.9 mmol/L (3.5-5.1); Sodium Level 140 mmol/L (136-145)
[2022-10-23] VITALS (7 sets, daily range): BP systolic 95–132; BP diastolic 55–68; PULSE 70–80; RESP 16; TEMP 36.2–37; O2SAT 92–98; BMI 36.4
[2022-10-23] MEDS: Lactated Ringers 1,000 ML 15 ML IV (07:44)
--- NOTE | 2022-10-23 07:50 | PCM.OPRPT ---
Problems Associated Problem List Diagnoses (1) Urethral stenosis: Report of Operation Date of Procedure: 10/23/22 Pre-Operative Diagnosis: Refractory urinary urgency and incontinence, female urethral stenosis Post-Operative Diagnosis: Same Surgery/Procedure Performed:: Urethral dilation, cystoscopy Surgeon: Inez Rousseau Type of Anesthesia: MAC Description of Procedure: The patient is a 61-year-old female with refractory urgency and incontinence. An attempt was made at cystoscopy in the office but she has urethral stenosis and the decision was made to proceed with intervention under anesthesia. Informed consent was obtained. The patient was taken to the operating room and placed on the operating room table. Anesthesia monitored the head, neck, airway, IV access and vital signs throughout the case. Once anesthesia was appropriately administered, the patient was placed into dorsolithotomy position and was prepped and draped in usual sterile fashion. The urethra was then dilated with female sounds from 12 Bulgarian to 30 Bulgarian without complication. The cystoscope was then inserted through the urethra under direct visualization into the urinary bladder. The bladder mucosa in its entirety was visualized. The ureteral orifices were located in the correct anatomic position on the trigone. There were no masses, areas of erythema, ulceration, or foreign body identified. The patient's bladder was then emptied and the cystoscope was removed. The patient was awakened and taken to the recovery room in good condition. Grafts/Implants Used: none Complications None Admit VTE Documentation VTE Present on Admission: Yes VTE Mechan Device Prophylaxis: SCD's VTE Pharm Prophylaxis ordered?: No Reason prophylaxis not ordered:: Treatment Not Indicated
--- NOTE | 2022-10-23 07:52 | DCINST_ITS ---
Discharge Instructions Diet Discharge Diet: No restrictions Activity Discharge Activity: Return to Normal Activity Dressing / Incision Call your doctor if you observe: Fever of 101 or Higher, Inability to urinate and Inability to have a bowel movement Follow Up Care Please Follow Up With: Inez Rousseau MD When: 1 to 2 weeks in the office, call for appointment Test Results: Test results from this visit will be discussed in further detail at your follow- up appointment, if applicable. Discharge Plan Admission Attending Provider: Inez Rousseau Primary Care Provider: Leia Thomas Discharge Orders/Prescriptions Prescriptions: New nitrofurantoin monohyd/m-cryst [Macrobid] 100 mg capsule 100 mg PO BID Qty: 6 0RF Rx Instructions: must administer with a meal/food tramadol 50 mg tablet 50 mg PO BID PRN (Reason: pain) Qty: 4 0RF Continued cetirizine 10 mg capsule 10 mg PO HS Qty: 30 3RF (DME) PEP device See Rx Instructions .ROUTE .MEDSUPPLY Qty: 1 0RF Rx Instructions: with training medical marijuana card 1 ea PO PRN PRN (Reason: Pain) nitroglycerin 0.4 MG tablet, sublingual 0.4 mg sublingual PRN PRN (Reason: chest pain) Label Comments: CHEST PAIN fluticasone furoate-vilanterol [Breo Ellipta] 200-25 mcg/dose blister with device 1 inh INHALATION QDAY Qty: 60 6RF Rx Instructions: after inhalation, rinse mouth with water and spit out; do not swallow albuterol sulfate [Ventolin HFA] 90 mcg/actuation HFA aerosol inhaler 2 puff INHALATION Q6H PRN (Reason: shortness of breath or wheezing) Qty: 18 3RF albuterol sulfate 2.5 mg /3 mL (0.083 %) solution for nebulization 2.5 mg INHALATION Q4H Qty: 180 3RF ergocalciferol (vitamin D2) [Vitamin D2] 1,250 mcg (50,000 unit) capsule 1,250 mcg PO QWEEK Qty: 12 3RF escitalopram oxalate [Lexapro] 10 mg tablet 10 mg PO DAILY Qty: 90 3RF losartan 50 mg tablet 50 mg PO BID Qty: 180 3RF quetiapine [Seroquel] 50 mg tablet 50 mg PO QHS Qty: 90 3RF Other Ambulatory Orders: 12 Lead EKG (Routine) Timeframe: 20221020 Location: None Selected Ordered By: Dr. Kike Green Referrals / Follow Up: Leia Thomas MD [Primary Care Provider] - Disposition Disposition (needs filled in before D/C Order can be placed): Home, Self Care
== END 2022-10-23 10:15 | disposition home or self-care (01) ==
LOC: SDC 07:15 → AC 07:15
PROVIDERS: Anesthesiology; PCP Internal Medicine; Referring Provider Urology; Visit Provider Urology
PROC: 0TBB8ZX Excision of Bladder, Via Natural or Artificial Opening Endoscopic, Diagnostic (ICD-10-PCS; CPT 52281; principal; 2022-10-23 08:05)
DX: N35.92 Unspecified urethral stricture, female (principal); J44.9 Chronic obstructive pulmonary disease, unspecified; E11.9 Type 2 diabetes mellitus without complications; N39.46 Mixed incontinence; N32.81 Overactive bladder; I10 Essential (primary) hypertension; E78.5 Hyperlipidemia, unspecified; J45.909 Unspecified asthma, uncomplicated; M19.90 Unspecified osteoarthritis, unspecified site; G47.33 Obstructive sleep apnea (adult) (pediatric); Z86.73 Personal history of transient ischemic attack (TIA), and cerebral infarction without residual deficits
CPT/HCPCS: 52281; 00910; 36415; 80048; 93005; J7120

== ENCOUNTER → 2023-01-23 | Outpatient (CLI) | payer MEDICARE, SELFPAY ==
[2023-01-23 13:26] LABS: AST(SGOT) 21 U/L (15-37); Alanine Aminotransfer ALT/SGPT 31 U/L (13-56); Albumin, Serum 3.6 g/dL (3.2-5.0); Alkaline Phosphatase 84 U/L (45-117); Anion Gap 8 (5-15); BUN 6 mg/dL (7-18); BUN/Creat Ratio 7.5 RATIO (10-20); Bilirubin, Direct 0.08 mg/dL (0.00-0.30); Calcium,Total 9.4 mg/dL (8.5-10.1); Chloride 101 mmol/L (98-107); Cholesterol 309 mg/dL (200); EST Glomerular Filtration Rate 77 mL/min (>60); Est Glom Filt Rate - Afr Amer 93 mL/min (>60); Globulin 3.7 g/dL (2.2-4.2); Glucose 142 mg/dL (74-106); High Density Lipoprotein 45 mg/dL; Potassium 3.9 mmol/L (3.5-5.1); Protein, Total 7.3 g/dL (6.4-8.2); Sodium Level 139 mmol/L (136-145); Triglycerides 668 mg/dL
== END | disposition home or self-care (01) ==
LOC: LAB 12:09
PROVIDERS: PCP Internal Medicine; Referring Provider Nurse Practitioner Gerontology; Visit Provider Nurse Practitioner Gerontology
DX: R06.09 Other forms of dyspnea (principal); E78.5 Hyperlipidemia, unspecified
CPT/HCPCS: 36415; 80048; 80061; 80076; 83880

== ENCOUNTER → 2023-02-03 | Outpatient (CLI) | payer MEDICARE, SELFPAY ==
--- NOTE | 2023-02-03 06:53 | ECHOCS_ITS ---
Reason For Study: Chest Pain/ BARTLETT Procedure This was a 2D Doppler, Color Flow transthoracic echocardiogram. The study was technically difficult. Contrast injection was performed. Exam performed in department. Left Ventricle Normal LV size. Left ventricular systolic function is normal. The estimated ejection fraction is 60 %. Stage 1 diastolic dysfunction. No regional wall motion abnormalities noted. Right Ventricle Normal RV size. Normal systolic function. Atria Normal left atrium. Normal right atrium. Mitral Valve Normal mitral valve. Tricuspid Valve Normal tricuspid valve. Mild (1+) tricuspid valve insufficiency. Pulmonary artery systolic pressure is 36 mmHg. Aortic Valve The aortic valve is not well visualized. Pulmonic Valve The pulmonic valve is not well visualized. Great Vessels Normal aortic root. The pulmonary artery is normal size. Normal inferior vena cava. Pericardium/Pleural No pericardial effusion. Medication 20 gauge I.V. with prn adaptor inserted into left arm. Diluted definity 2ml given slow IV push to enhance endocardial definition. MMode/2D Measurements & Calculations LVIDd: 4.3 cm IVSd: 0.93 cm Ao root diam: 3.0 cm LVIDs: 2.3 cm LVPWd: 0.93 cm LA dimension: 4.0 cm RVDd: 3.2 cm FS: 45.6 % LAV(MOD-bp): 39.3 ml LA A4 area: 16.6 cm2 RA A4 area: 11.7 cm2 LAV(MOD-bp) Indexed: 20.5 ml/m2 LAV(MOD-sp2): 34.4 ml LAV(MOD-sp4): 39.1 ml Time Measurements MV dec time: 0.26 sec Doppler Measurements & Calculations MV E max aris: 80.4 cm/sec Lat Peak E' Aris: 10.5 cm/sec Med Peak E' Aris: 8.1 cm/sec MV A max aris: 110.8 cm/sec E/E' lat: 7.7 E/E' med: 9.9 MV E/A: 0.73 MV V2 max: 108.1 cm/sec MV dec slope: 313.3 cm/sec2 Ao V2 max: 171.5 cm/sec MV max P.7 mmHg Ao max P.8 mmHg MV V2 mean: 61.6 cm/sec Ao V2 mean: 116.2 cm/sec MV mean P.8 mmHg Ao mean P.1 mmHg MV V2 VTI: 19.1 cm Ao V2 VTI: 34.7 cm AV (velocity ratio): 0.84 LV V1 max: 145.9 cm/sec PA V2 max: 94.4 cm/sec TR max aris: 285.4 cm/sec LV V1 max P.5 mmHg TR max P.6 mmHg LV V1 mean P.9 mmHg LV V1 mean: 106.2 cm/sec LV V1 VTI: 29.2 cm ECHO/Echo Complete W/ Contrast Interpretation Summary Normal LV size. Left ventricular systolic function is normal. The estimated ejection fraction is 60 %. Stage 1 diastolic dysfunction. Mild (1+) tricuspid valve insufficiency. Pulmonary artery systolic pressure is 36 mmHg. Contrast injection was performed. Ordering Physician: Wendy Hinton Referring Physician: Leia Thomas M.D. Performed By: Gerardo Menendez RCS
--- NOTE | 2023-02-03 06:53 | CDU_ITS ---
Reason For Study: Dizziness Rt. Velocities/BP Lt. Velocities/BP Prox CCA 77.8/25.8 cm/sec. Prox CCA 110.1/35.3 cm/sec. Mid CCA 77.8/30.5 cm/sec. Mid CCA 71.8/27.9 cm/sec. Dist CCA 68.3/21.1 cm/sec. Dist CCA 79.1/24.3 cm/sec. Prox ICA 104.7/29.8 cm/sec. Prox ICA 90/29.8 cm/sec. Mid ICA 110.1/40.7 cm/sec. Mid ICA 115.6/55.3 cm/sec. Dist ICA 115.6/46.2 cm/sec. Dist ICA 112/35.3 cm/sec. Rt. ICA/CCA = 1.49. Lt. ICA/CCA = 1.46. Prox ECA 132.1/24.3 cm/sec. Prox ECA 97.4/15.2 cm/sec. Rt. Vert. 55.3/17 cm/sec. Lt. Vert. 68.1/24.3 cm/sec. Right Extracranial There is homogeneous, smooth atherosclerotic plaque noted in the right common carotid artery. There is heterogeneous, irregular atherosclerotic plaque noted in the right internal carotid artery. There is intimal thickening but no significant atherosclerotic plaque noted in the right external carotid artery. Antegrade flow is noted in the right vertebral artery. Left Extracranial There is homogeneous, smooth atherosclerotic plaque noted in the left common carotid artery. There is heterogeneous, irregular atherosclerotic plaque noted in the left internal carotid artery. There is homogeneous, smooth atherosclerotic plaque noted in the left external carotid artery. Antegrade flow is noted in the left vertebral artery. Procedure Carotid Duplex [id number]. This is a Carotid Duplex examination using B-mode, color flow and specral Doppler. Exam performed in department. VL/Carotid Duplex Ultrasound Interpretation Summary Mild (<50%) stenosis right extracranial internal carotid. Mild (<50%) stenosis left extracranial internal carotid. Flow within the vertebral arteries is antegrade bilaterally. Ordering Physician: Wendy Hinton Referring Physician: Leia Thomas M.D. Performed By: Debbie French RVT
--- NOTE | 2023-02-03 12:49 | STRESSREP ---
Stress Test Report Pharmacologic myocardial perfusion stress test. 62-year-old lady with a history of dyspnea on exertion Resting EKG demonstrates sinus rhythm with a rate of 89 bpm. Resting blood pressure is 132/80 mmHg. 0.4 mg of regadenoson was infused per usual protocol followed by rapid intravenous saline flush injection. Continuous EKG monitoring was performed. The maximum heart rate was 103 bpm which was 65% of max impacted heart rate the maximum workload was 1 metabolic equivalent. At rest there were no ST or T wave changes noted to suggest ischemia and at peak infusion nonspecific ST changes were noted which did not meet the criteria for ischemia. No clinical angina is noted. The final blood pressure was 132/80 mmHg. Myocardial perfusion protocol. 11.9 mCi of technetium 99m sestamibi was injected at rest. 0.4 mg of regadenoson was infused per usual protocol. At peak infusion 35.1 mCi of technetium 99m sestamibi was injected stress images were obtained stress and rest images were reconstructed and compared in the short axis vertical long and horizontal long axis. Gated images were also obtained. Perfusion SPECT analysis: Review of the stress images demonstrate normal uptake of tracer noted in all areas of the myocardium. The resting images similar demonstrated normal uptake of tracer noted in all areas of the myocardium. No areas of reversibility are noted to suggest ischemia and no previous infarct is noted. Gated SPECT analysis: The gated ejection fraction is 73%. Conclusion: Normal pharmacologic myocardial perfusion stress test. Preserved ejection fraction.
== END | disposition home or self-care (01) ==
LOC: CVS 06:50
PROVIDERS: PCP Internal Medicine; Referring Provider Nurse Practitioner Gerontology; Visit Provider Nurse Practitioner Gerontology
DX: R00.2 Palpitations (principal); R42 Dizziness and giddiness; R07.9 Chest pain, unspecified
CPT/HCPCS: 78452; 93017; 93225; 93226; 93306; 93880; A9500; Q9957; A4216; C8929; J2785

== ENCOUNTER 2023-03-26 10:44 | Day surgery (SDC) | payer MEDICARE, SELFPAY ==
[2023-03-20 10:25] LABS: Hematocrit 43.3 % (37-47); Hemoglobin 16.1 g/dL (12.0-15.0); Mean Corp Hgb Conc 37.2 g/dL (32-36); Mean Corpuscular Hgb 32.6 pg (27.0-32.0); Mean Corpuscular Volume 87.7 fL (81-99); Mean Platelet Vol. 9.2 fl (6.2-12.0); Platelet Count 420 K/mm3 (150-450); RBC Distribution Width CV 12.5 % (11.6-14.6); RBC Distribution Width SD 39.9 fl (35.1-43.9); Red Blood Count 4.94 M/mm3 (4.2-5.4); White Blood Count 12.6 K/mm3 (4.4-11.0)
[2023-03-26] VITALS (7 sets, daily range): BP systolic 111–149; BP diastolic 56–90; PULSE 84–92; RESP 16–18; TEMP 36.7–37; O2SAT 92–98; BMI 36.6
--- NOTE | 2023-03-26 11:00 | PCM.OPRPT ---
Report of Operation Date of Procedure: 03/26/23 Pre-Operative Diagnosis: Stress urinary incontinence Post-Operative Diagnosis: Same Surgery/Procedure Performed:: Mid urethral sling, cystoscopy Surgeon: Inez Rousseau Type of Anesthesia: General Specimen's removed: none Description of Procedure: The patient is a 62-year-old female with stress urinary incontinence who presented to the office for evaluation and management. After undergoing testing, she desired to proceed with surgical intervention. Informed consent was obtained. The patient was taken to the operating room and placed on the operating room table. Anesthesia monitored the head, neck, airway, IV access and vital signs throughout the case. Once anesthesia was administered, the patient was positioned in dorsal lithotomy with Trendelenburg, and she was prepped and draped in usual sterile fashion. A 16 Chinese Valdes catheter was inserted to straight drain and the bladder was emptied. The mid urethra was isolated and injected submucosally with lidocaine with epinephrine. A midline vertical incision was then made over the mid urethra approximately 1.5 cm in length. Sharp and blunt dissection was performed on both sides of the urethra with care being taken to avoid entrance into the urethra or the vaginal mucosa. After dissection was completed, the sling was inserted into the transobturator complexes bilaterally using the provided trocars. The mesh lay flat against the urethra and was positioned using the tensioning suture. After positioning, the suture was cut and the incision was closed using running interlocking 2-0 Vicryl. The Valdes catheter was then removed and a cystourethroscopy was performed with insertion of the cystoscope through the urethra under direct visualization into the urinary bladder. There is no evidence of injury to the urinary bladder or the urethra. There were no masses, areas of erythema or foreign objects identified within the urethra or the bladder. The patient's bladder was left with a small amount of fluid, the cystoscope was removed and the patient was awakened and taken to the recovery room in good condition. There were no complications during this procedure. Grafts/Implants Used: Altis mid urethral sling Complications None Admit VTE Documentation VTE Present on Admission: Yes VTE Mechan Device Prophylaxis: SCD's VTE Pharm Prophylaxis ordered?: No Reason prophylaxis not ordered:: Treatment Not Indicated
--- NOTE | 2023-03-26 11:01 | DCINST_ITS ---
Discharge Instructions Diet Discharge Diet: No restrictions Activity Discharge Activity: May Shower May resume sexual activity in: 4 weeks Lifting Restrictions: No lifting over 5 pounds for 4 weeks. No strenuous activity, no exercise. Additional Activity Instructions:: No sexual activity, no hot tubs, no tub bathing, no swimming. Dressing / Incision Call your doctor if your incision/area has: Continuous Slow Oozing, Sudden Increased Bleeding, Increased Pain/ Swelling, Increased Redness, Foul Smelling Discharge and Swelling at the incision site Call your doctor if you observe: Fever of 101 or Higher, Inability to urinate and Inability to have a bowel movement Follow Up Care Please Follow Up With: Inez Rousseau MD When: Call the office for appointment Test Results: Test results from this visit will be discussed in further detail at your follow- up appointment, if applicable. Discharge Plan Admission Attending Provider: Inez Rousseau Primary Care Provider: Leia Thomas Consulting Providers: Kike Green Discharge Orders/Prescriptions Prescriptions: New nitrofurantoin monohyd/m-cryst [Macrobid] 100 mg capsule 100 mg PO BID Qty: 6 0RF Rx Instructions: must administer with a meal/food tramadol 50 mg tablet 50 mg PO Q8H PRN (Reason: pain) 3 Days Qty: 10 0RF Continued (DME) PEP device See Rx Instructions .ROUTE .MEDSUPPLY Qty: 1 0RF Rx Instructions: with training medical marijuana card 1 ea PO PRN PRN (Reason: Pain) bupropion HCl 200 mg tablet sustained-release 12 hr 200 mg PO DAILY Label Comments: take 1 tablet by mouth once daily diphenhydramine HCl [Benadryl] 25 mg capsule 25 mg PO PRN PRN (Reason: Sleep) nitroglycerin 0.4 mg tablet, sublingual 0.4 mg sublingual Q5-15M PRN (Reason: chest pain) Qty: 25 3RF albuterol sulfate 2.5 mg /3 mL (0.083 %) solution for nebulization 2.5 mg INHALATION Q4H PRN (Reason: SOB) ergocalciferol (vitamin D2) [Vitamin D2] 1,250 mcg (50,000 unit) capsule 1,250 mcg PO WE cetirizine 10 mg capsule 10 mg PO PRN PRN (Reason: ALLERGIES) omeprazole 20 mg Tablet,Delayed Release (Dr/Ec) 20 mg PO DAILY Myrbetriq 50 mg Tablet Extended Release 24 Hr 50 mg PO DAILY escitalopram oxalate [Lexapro] 10 mg tablet 10 mg PO DAILY Qty: 90 3RF losartan 50 mg tablet 50 mg PO BID Qty: 180 3RF icosapent ethyl [Vascepa] 1 gram capsule 2 g PO BID Qty: 120 11RF albuterol sulfate [Ventolin HFA] 90 mcg/actuation HFA aerosol inhaler 2 puff INHALATION Q6H PRN (Reason: shortness of breath or wheezing) Qty: 18 3RF diltiazem HCl 120 mg capsule,extended release 24hr 120 mg PO DAILY Qty: 30 11RF lorazepam [Ativan] 0.5 mg tablet 0.25 mg PO DAILY PRN (Reason: anxiety) Qty: 5 0RF Referrals / Follow Up: Leia Thomas MD [Primary Care Provider] - Disposition Disposition (needs filled in before D/C Order can be placed): Home, Self Care
[2023-03-26] MEDS: Lactated Ringers 1,000 ML 15 ML IV (11:19)
[2023-03-26] MEDS: Lidocaine 1% /Epi 1:100 (20ml) 20 ML Vial (12:15)
== END 2023-03-26 14:25 | disposition home or self-care (01) ==
LOC: SDC 10:45 → AC 10:46
PROVIDERS: Anesthesiology; PCP Internal Medicine; Referring Provider Urology; Visit Provider Urology
PROC: 0TJB8ZZ Inspection of Bladder, Via Natural or Artificial Opening Endoscopic (ICD-10-PCS; CPT 57288; principal; 2023-03-26 12:00)
DX: N39.46 Mixed incontinence (principal); J44.9 Chronic obstructive pulmonary disease, unspecified; N32.81 Overactive bladder; I10 Essential (primary) hypertension; G47.33 Obstructive sleep apnea (adult) (pediatric); K21.9 Gastro-esophageal reflux disease without esophagitis; E66.9 Obesity, unspecified; Z68.36 Body mass index [BMI] 36.0-36.9, adult; Z86.73 Personal history of transient ischemic attack (TIA), and cerebral infarction without residual deficits
CPT/HCPCS: 57288; 00942; 36415; 85027; J7120; J2405

== ENCOUNTER → 2023-05-25 | Outpatient (CLI) | payer MEDICARE, SELFPAY ==
--- NOTE | 2023-05-25 16:25 | RAD_ITS ---
EXAM: XR CHEST, 2 VIEWS CLINICAL INDICATION: Chest Pain TECHNIQUE: Frontal and lateral views of the chest. COMPARISON: No relevant prior studies available. FINDINGS: LUNGS AND PLEURAL SPACES: Unremarkable. No consolidation or edema. No pneumothorax. No effusion. HEART: Unremarkable. Cardiac silhouette not enlarged. MEDIASTINUM: Central airways and mediastinal contour are unremarkable. BONES/JOINTS: Posterior cervical fusion. SOFT TISSUES: Unremarkable. RAD/Chest PA and Lateral IMPRESSION: No acute cardiopulmonary abnormality. Electronically Signed: Stewart Youngblood MD at 0:21 EDT ,
[2023-05-25 17:04] LABS: Absolute Lymphocyte Count 2.13 X10^3/uL (0.83-4.51); Absolute Neutrophil Count 4.9 X10^3/uL (2.0-7.7); Basophil# 0.04 X10^3/uL; Basophil% 0.5 % (0-1); Eosinophil# 0.13 X10^3/uL; Eosinophils% 1.7 % (0-5); Hematocrit 42.6 % (37-47); Hemoglobin 14.3 g/dL (12.0-15.0); Lymphocyte # 2.13 X10^3/ul (0.83-4.51); Lymphocyte % 27.4 % (19-41); Mean Corp Hgb Conc 33.6 g/dL (32-36); Mean Corpuscular Hgb 28.4 pg (27.0-32.0); Mean Corpuscular Volume 84.5 fL (81-99); Mean Platelet Vol. 9.3 fl (6.2-12.0); Monocyte# 0.53 X10^3/uL; Monocyte% 6.8 % (0-10); NRBC Flagged by Analyzer 0 % (0-5); Neutrophil # 4.92 X10^3/uL (2.7-7.7); Neutrophil % 63.2 % (47-70); Platelet Count 342 K/mm3 (150-450); RBC Distribution Width CV 12.1 % (11.6-14.6); RBC Distribution Width SD 36.7 fl (35.1-43.9); Red Blood Count 5.04 M/mm3 (4.2-5.4); White Blood Count 7.8 K/mm3 (4.4-11.0)
[2023-05-25 17:22] LABS: International Normalized Ratio 0.9; Partial Thromboplast Time 24.3 Seconds (24.1-36.2); Prothrombin Time (Protime)PT. 12.4 SECONDS (11.7-14.9)
[2023-05-25 17:45] LABS: Anion Gap 9 (5-15); BUN 9 mg/dL (7-18); BUN/Creat Ratio 8.5 RATIO (10-20); Calcium,Total 9.6 mg/dL (8.5-10.1); Chloride 98 mmol/L (98-107); Creatinine, Serum 1.06 mg/dL (0.55-1.02); EST Glomerular Filtration Rate 56 mL/min (>60); Est Glom Filt Rate - Afr Amer 67 mL/min (>60); Glucose 429 mg/dL (74-106); Potassium 3.9 mmol/L (3.5-5.1); Sodium Level 131 mmol/L (136-145)
== END | disposition home or self-care (01) ==
LOC: LAB 15:53
PROVIDERS: Nurse Practitioner Gerontology; PCP Internal Medicine; Visit Provider Internal Medicine Cardiovascular Disease
DX: R07.9 Chest pain, unspecified (principal); J45.40 Moderate persistent asthma, uncomplicated; I25.10 Atherosclerotic heart disease of native coronary artery without angina pectoris; K76.9 Liver disease, unspecified
CPT/HCPCS: 36415; 71046; 80048; 85025; 85610; 85730

== ENCOUNTER → 2023-05-28 | Outpatient (CLI) | payer MEDICARE, SELFPAY ==
[2023-05-28 12:09] LABS: AST(SGOT) 42 U/L (15-37); Alanine Aminotransfer ALT/SGPT 40 U/L (13-56); Albumin, Serum 3.6 g/dL (3.2-5.0); Alkaline Phosphatase 126 U/L (45-117); Bilirubin, Direct 0.11 mg/dL (0.00-0.30); Cholesterol 246 mg/dL (200); High Density Lipoprotein 50 mg/dL; Protein, Total 7.6 g/dL (6.4-8.2); Triglycerides 443 mg/dL
[2023-05-28 12:19] LABS: Anion Gap 9 (5-15); BUN 9 mg/dL (7-18); BUN/Creat Ratio 9.7 RATIO (10-20); Calcium,Total 9.5 mg/dL (8.5-10.1); Chloride 97 mmol/L (98-107); Creatinine, Serum 0.92 mg/dL (0.55-1.02); EST Glomerular Filtration Rate 65 mL/min (>60); Est Glom Filt Rate - Afr Amer 79 mL/min (>60); Glucose 356 mg/dL (74-106); Potassium 3.8 mmol/L (3.5-5.1); Sodium Level 131 mmol/L (136-145)
[2023-05-28 13:40] LABS: Hemoglobin A1c 10.7 % (3.8-5.6)
== END | disposition home or self-care (01) ==
LOC: LAB 09:48
PROVIDERS: Nurse Practitioner Gerontology; PCP Internal Medicine; Referring Provider Physician Assistant Medical; Visit Provider Physician Assistant Medical
DX: R73.09 Other abnormal glucose (principal); E78.5 Hyperlipidemia, unspecified
CPT/HCPCS: 36415; 80048; 80061; 80076; 83036

== ENCOUNTER 2023-06-08 08:27 | Day surgery (SDC) | payer MEDICARE, SELFPAY ==
[2023-05-29 13:15] VITALS: BMI 35.4
--- NOTE | 2023-06-08 11:43 | CL.D_ITS ---
Patient Name: BRITNEY NICOLE Study Date: 06/08/2023 Performing: Gualberto Gomez MD Ht: 62 inches 157.48 cm : 1960 Wt: 194.01 lbs 88 kg Age: 62 Gender: female BSA: 1.89 PROCEDURE(S) PERFORMED DC01-(16870)LHC/COR/LV CLINICAL PROFILE AND INDICATIONS Indications: Suspected CAD Heart Failure: None Stress/Imaging Stress/Image Study Performed: No CAD Presentations: Stable angina. CONCLUSIONS Non obstructive coronary arteries RECOMMENDATIONS Medical therapy DESCRIPTION OF PROCEDURE The patient arrived to the procedure lab. The risks and benefits of the procedure as well as a full description of our services here and current unavailability of surgical backup were fully explained to the patient and/or their significant other prior to the catheterization. The Timeout was completed, verifying the correct patient and procedure. The patient's procedural site was prepped and draped in the usual fashion. Local anesthetic was given subcutaneously to right radial region with Lidocaine 2%. Using a modified Seldinger technique, arterial access was obtained via the right radial artery, a 6Fr sheath was inserted. Left Coronary Artery selective angiography was performed in multiple views using a 5 Fr. 4.0 [place] catheter. Right Coronary Artery selective angiography was then performed in multiple views using a 5 Fr. 4.0 [place] catheter. Left Ventriculography was performed in GALEANA projection using a 5 Fr. Pig[place] catheter. LV to AO pullback pressures were then recorded.The arterial sheath was pulled and a TR Band was applied for hemostasis CORONARY ANGIOGRAPHY DOMINANCE: Right Dominant LEFT HEART ASSESSMENT Left Ventricular Ejection Fraction: by LV Gram 60 % Normal LV wall motion Normal Left Ventricular systolic function LEFT MAIN: Angiographically normal LEFT ANTERIOR DESCENDING ARTERY: Mild luminal irregularities less than 30% CIRCUMFLEX ARTERY: Mild luminal irregularities less than 30% RIGHT CORONARY ARTERY: Mild calcification Mild luminal irregularities PROX RCA: Moderate luminal irregularities up to 50% COMPLICATIONS No Complications PROCEDURE MEDICATIONS Versed 1 mg IV Fentanyl 50 mcg IV Versed 1 mg IV Zofran 4 mg IV 06/08/2023 09:15:09 SUMMARY OF HEMODYNAMIC DATA Time AIR REST ECG 09:03:32 AO 109/64 (79) SA 11:17:06 AO 128/79 (100) 11:29:13 LV 109/14, 23 11:34:33 LV 114/-18, 19 11:34:43 LV 113/17, 23 11:35:04 LVp 107/20, 25 11:35:07 AOp 105/-18 (65) 11:35:15 Signed By Gualberto Gomez MD On 06/08/2023 11:42:45 Gualberto Gomez MD
== END 2023-06-08 13:30 | disposition home or self-care (01) ==
LOC: CLSP 08:29
PROVIDERS: PCP Internal Medicine; Referring Provider Internal Medicine Cardiovascular Disease; Visit Provider Internal Medicine Cardiovascular Disease
DX: I20.9 Angina pectoris, unspecified (principal); J44.9 Chronic obstructive pulmonary disease, unspecified; I10 Essential (primary) hypertension; E78.00 Pure hypercholesterolemia, unspecified; I25.10 Atherosclerotic heart disease of native coronary artery without angina pectoris; Z79.82 Long term (current) use of aspirin; E66.9 Obesity, unspecified; F17.210 Nicotine dependence, cigarettes, uncomplicated
CPT/HCPCS: 93458; 99152; 99153; J7040; C1769; C1894; J2405; Q9967

== ENCOUNTER 2023-06-19 17:26 | Emergency (ER) | payer MEDICARE, SELFPAY ==
[2023-06-19 17:27] VITALS: BP 155/88; PULSE 100; RESP 18; TEMP 36.4; O2SAT 96; BMI 34.0
[2023-06-19 17:53] LABS: Bedside Glucose 345 mg/dL (74-106)
--- NOTE | 2023-06-19 18:13 | EDS_ITS ---
HPI History of Present Illness Chief Complaint: Hyperglycemia Informant: patient Onset/Context/Timing Onset: Weeks Narrative Narrative: Patient presents secondary to elevated blood sugars. She was just started on m etformin about 3 weeks ago and Farxiga was added 1 week ago for diabetes. Patient states that in spite of this medication her blood sugars are still running between 3 and 500. This morning her blood sugar was 502 which scared her so she came in. She does report blurred vision out of both eyes for the past 3 weeks. [facility] Medical History Ambulates with cane Anemia Arthritis Asthma Bladder disease Bone fracture Breast lump Cancer Cardiology follow-up encounter Chronic bronchitis Chronic cough Chronic obstructive lung disease COPD (chronic obstructive pulmonary disease) COVID-19 (01/04/23) CPAP (continuous positive airway pressure) dependence DDD (degenerative disc disease), cervical Depression DJD (degenerative joint disease) Dysmetabolic syndrome Esophageal reflux Essential (primary) hypertension Gastric reflux H/O emotional problems Heart disease Hiatal hernia High cholesterol History of echocardiogram History of IBS History of pain when walking History of stomach ulcers History of stress test HPV (human papilloma virus) anogenital infection Hyperlipidemia IBS (irritable bowel syndrome) Incidental lung nodule, > 3mm and < 8mm Leg cramps Liver disease Marijuana use Migraine Neuropathy Nonobstructive atherosclerosis of coronary artery Obese MELYSSA (obstructive sleep apnea) Osteoporosis Rash Smoker Stress incontinence Tachycardia TIA (transient ischemic attack) Tobacco abuse Trigeminal neuralgia Urethral stenosis Vascular disease Vitamin D deficiency Wears dentures Home Medications PEP device #1 ea 02/27/20 [Rx Last Taken Unknown] medical marijuana card 1 ea PO PRN PRN Pain 05/29/22 [History Last Taken Unknown] escitalopram oxalate 10 mg tablet (Lexapro) 10 mg PO DAILY #90 tabs 07/31/22 [Rx Last Taken 06/08/23] losartan 50 mg tablet 50 mg PO BID #180 tabs 07/31/22 [Rx Last Taken 06/08/23] bupropion HCl 200 mg tablet,12 hr sustained-release 200 mg PO DAILY 01/23/23 [History Last Taken 06/08/23] diphenhydramine HCl 25 mg capsule (Benadryl) 25 mg PO PRN PRN Sleep 01/23/23 [History Last Taken Unknown] nitroglycerin 0.4 mg sublingual tablet 0.4 mg sublingual Q5-15M PRN chest pain #25 tabs 01/23/23 [Rx Last Taken Unknown] albuterol sulfate 90 mcg/actuation aerosol inhaler (Ventolin HFA) 2 puff inhalation Q6H PRN shortness of breath or wheezing #18 grams 03/17/23 [Rx Last Taken Unknown] albuterol sulfate 2.5 mg/3 mL (0.083 %) solution for nebulization 2.5 mg inhalation Q4H PRN SOB 03/19/23 [History Last Taken Unknown] diltiazem HCl 120 mg capsule,extended release 24 hr 120 mg PO DAILY #30 caps 03/19/23 [Rx Last Taken 06/08/23] ergocalciferol (vitamin D2) 1,250 mcg (50,000 unit) capsule (Vitamin D2) 1,250 mcg PO WE 03/19/23 [History Last Taken Unknown] aspirin 81 mg tablet,delayed release 81 mg PO DAILY #30 tabs 05/21/23 [Rx Last Taken 06/08/23] mirabegron 50 mg tablet,extended release 24 hr (Myrbetriq) 200 mg PO DAILY 05/21/23 [History Last Taken Unknown] omeprazole 20 mg tablet,delayed release 20 mg PO DAILY #60 tabs 05/25/23 [Rx Last Taken 06/08/23] ezetimibe 10 mg tablet (Zetia) 10 mg PO DAILY #30 tabs 05/28/23 [Rx Last Taken Unknown] icosapent ethyl 1 gram capsule (Vascepa) 2 g (2 x 1 gram) PO BID #120 caps 05/28/23 [Rx Last Taken Unknown] metformin 500 mg tablet 500 mg PO BID #60 tabs 05/28/23 [Rx Last Taken 06/06/23] dapagliflozin propanediol 5 mg tablet (Farxiga) 5 mg PO DAILY #90 tabs 06/12/23 [Rx Last Taken Unknown] Allergy/AdvReac Type Severity Reaction Status Date / Time acetaminophen Allergy Severe Hives Verified 06/19/23 17:29 hydrocodone bitartrate Allergy Severe Hives Verified 06/19/23 17:29 [From Vicodin] hydromorphone HCl Allergy Severe Hives, Verified 06/19/23 17:29 [From Dilaudid] feels like on fire Penicillins Allergy Severe Anaphylaxis Verified 06/19/23 17:29 propoxyphene napsylate Allergy Severe Hives Verified 06/19/23 17:29 [From Darvocet-N 100] Sulfa (Sulfonamide Allergy Severe Hives Verified 06/19/23 17:29 Antibiotics) adhesive Allergy Rash Verified 06/19/23 17:29 budesonide [From Symbicort] Allergy Angioedema Verified 06/19/23 17:29 cephalexin monohydrate Allergy Rash Verified 06/19/23 17:29 [From Keflex] formoterol [From Symbicort] Allergy Angioedema Verified 06/19/23 17:29 Heparin Analogues Allergy severe Verified 06/19/23 17:29 bruising and rash latex Allergy Rash Verified 06/19/23 17:29 levofloxacin [From Levaquin] Allergy Swelling, Verified 06/19/23 17:29 rash oxycodone HCl [From Percocet] Allergy Hives Verified 06/19/23 17:29 oxytocin Allergy Hives Verified 06/19/23 17:29 Family History Mother Cancer Father Cancer Myocardial infarction Sister Cancer Other Alcoholism Anxiety Arthritis Blood clot associated with vein wall inflammation Breast cancer Cervical cancer Depression Melanoma Mental disorder Osteoporosis Surgical History H/O dilation of urethra History of appendectomy History of cardiac catheterization History of cervical spinal surgery History of cholecystectomy History of cystoscopy History of left heart catheterization (01/25/18) History of repair of hiatal hernia History of sinus surgery History of tubal ligation Social History Smoking Status: Current every day smoker tobacco type: cigarettes Tobacco: How many years used: 48 second hand exposure: Yes alcohol intake: current alcohol intake frequency: holidays/special occasions only substance use type: does not use, former substance user Date of last use: 2002 and crack/cocaine caffeine: Yes what type of physical activity do you participate in: none ROS ROS ED Constitutional Constitutional ED: Denies chills or fever(s) Eyes Eyes: Reports blurry vision ENT ENT ED: Denies rhinorrhea or sore throat Cardiovascular Cardiovascular: Denies chest pain or palpitations Respiratory/Chest Respiratory/Chest: Denies cough or dyspnea Gastrointestinal Gastrointestinal: Denies abdominal pain, nausea or vomiting Genitourinary Genitourinary ED: Denies dysuria Musculoskeletal Musculoskeletal: Denies back pain or extremity pain Integumentary Denies Abrasions or rash Neurologic Neurologic: Denies headache(s) or weakness Psychiatric Psychiatric: Denies anxiety or depression Endocrine Endocrinology: Denies polydipsia or polyuria Allergic/Immunologic Allergic/Immunologic ED: Denies lip swelling or urticaria EXAM Physical Exam Const Vital Signs: 06/19/23 17:27 06/19/23 18:10 Temperature 97.5 F L Temperature Source Temporal Pulse Rate 100 Respiratory Rate 18 Respiratory Pattern Normal Blood Pressure 155/88 H Blood Pressure Mean 110 Pulse Ox 96 Oxygen Delivery Method Room Air Positive well nourished and well developed General Appearance ED: well developed HEENT Reports dry mucous membranes Mouth ED: Yes dry mucous membranes Mouth: dry mucous membranes Eyes EOMs intact bilaterally Neck no lymphadenopathy Chest Wall inspection of chest normal and palpation of chest normal Resp normal respiratory effort and clear to auscultation bilaterally Cardio regular rate and regular rhythm GI non-tender Auscultation: hypoactive bowel sounds Extremity normal to inspection Neuro oriented x3 Motor Exam: strength 5/5 throughout Psych mental status grossly normal MDM MDM MDM Narrative Medical decision making narrative: Patient ordered a liter of IV fluids. Labwork obtained to evaluate for leukocytosis, anemia, and electrolyte derangement. Lab Data Attestation: I reviewed the patient's lab results. Labs: Laboratory Results - last 24 hr 06/19/23 06/19/23 06/19/23 17:33 18:50 20:03 WBC 9.1 RBC 4.81 Hgb 13.8 Hct 39.9 MCV 83.0 MCH 28.7 MCHC 34.6 RDW Std Deviation 36.5 RDW Coeff of Adonay 12.0 Plt Count 362 MPV 9.4 Immature Gran % (Auto) 0.300 Neut % (Auto) 57.6 Lymph % (Auto) 33.1 [place] % (Auto) 6.2 Eos % (Auto) 2.1 Baso % (Auto) 0.7 Absolute Neuts (auto) 5.2 Absolute Lymphs (auto) 3.01 Nucleated RBC % 0 Sodium 135 L Potassium 3.3 L Chloride 101 Carbon Dioxide 25.0 Anion Gap 9 BUN 8 Creatinine 0.72 Estim Creat Clear Calc 64.07 Est GFR (MDRD) Af Amer 106 Est GFR (MDRD) Non-Af 88 BUN/Creatinine Ratio 11.2 Glucose 288 H Hemoglobin A1c 12.4 H Calcium 9.3 Acetone Level NEGATIVE POC Glucose 345 H 242 H Treatment and Re-Evaluation :: CBC was a white count of 9.1 with a hemoglobin of 13.8. Chemistry studies reveal slightly low potassium at 3.3. Sodium was 135 with a glucose of 288. Serum acetone is negative. Blood sugar on arrival was 345 with a repeat of 242. After her IV fluids are completed her blood sugar is 198. At this time patient will be discharged home to continue her current medication regimen. Her hemoglobin A1c today is 12.4. I did recommend patient take her blood sugar monitor with her to her next appointment so they can verify its accuracy. Return instructions given. Discharge Plan Triage Chief Complaint: Hyperglycemia ED Provider: Aida Jeffery Dx/Rx/DC Orders Clinical Impression: Hyperglycemia Instructions: ED Diabetic Hyperglycemia Prescriptions: No Action (DME) PEP device See Rx Instructions .ROUTE .MEDSUPPLY Qty: 1 0RF Rx Instructions: with training medical marijuana card 1 ea PO PRN PRN (Reason: Pain) bupropion HCl 200 mg tablet sustained-release 12 hr 200 mg PO DAILY Patient Comments: take 1 tablet by mouth once daily diphenhydramine HCl [Benadryl] 25 mg capsule 25 mg PO PRN PRN (Reason: Sleep) nitroglycerin 0.4 mg tablet, sublingual 0.4 mg sublingual Q5-15M PRN (Reason: chest pain) Qty: 25 3RF aspirin 81 mg tablet,delayed release (DR/EC) 81 mg PO DAILY Qty: 30 0RF omeprazole 20 mg tablet,delayed release (DR/EC) 20 mg PO DAILY Qty: 60 1RF albuterol sulfate 2.5 mg /3 mL (0.083 %) solution for nebulization 2.5 mg INHALATION Q4H PRN (Reason: SOB) ergocalciferol (vitamin D2) [Vitamin D2] 1,250 mcg (50,000 unit) capsule 1,250 mcg PO WE Myrbetriq 50 mg tablet extended release 24 hr 200 mg PO DAILY escitalopram oxalate [Lexapro] 10 mg tablet 10 mg PO DAILY Qty: 90 3RF losartan 50 mg tablet 50 mg PO BID Qty: 180 3RF albuterol sulfate [Ventolin HFA] 90 mcg/actuation HFA aerosol inhaler 2 puff INHALATION Q6H PRN (Reason: shortness of breath or wheezing) Qty: 18 3RF diltiazem HCl 120 mg capsule,extended release 24hr 120 mg PO DAILY Qty: 30 11RF ezetimibe [Zetia] 10 mg tablet 10 mg PO DAILY Qty: 30 11RF icosapent ethyl [Vascepa] 1 gram capsule 2 g PO BID Qty: 120 11RF metformin 500 mg tablet 500 mg PO BID Qty: 60 3RF Farxiga 5 mg tablet 5 mg PO DAILY Qty: 90 1RF Primary Care Provider: Leia Thomas Referrals: Leia Thomas MD [Primary Care Provider] - 1-2 Weeks Disposition Disposition: Home, Self Care
[2023-06-19] MEDS: 0.9% Normal Saline 1,000 ML 1000 ML IV (18:58)
[2023-06-19 19:07] LABS: Absolute Lymphocyte Count 3.01 X10^3/uL (0.83-4.51); Absolute Neutrophil Count 5.2 X10^3/uL (2.0-7.7); Basophil# 0.06 X10^3/uL; Basophil% 0.7 % (0-1); Eosinophil# 0.19 X10^3/uL; Eosinophils% 2.1 % (0-5); Hematocrit 39.9 % (37-47); Hemoglobin 13.8 g/dL (12.0-15.0); Lymphocyte # 3.01 X10^3/ul (0.83-4.51); Lymphocyte % 33.1 % (19-41); Mean Corp Hgb Conc 34.6 g/dL (32-36); Mean Corpuscular Hgb 28.7 pg (27.0-32.0); Mean Platelet Vol. 9.4 fl (6.2-12.0); Monocyte# 0.56 X10^3/uL; Monocyte% 6.2 % (0-10); NRBC Flagged by Analyzer 0 % (0-5); Neutrophil # 5.23 X10^3/uL (2.7-7.7); Neutrophil % 57.6 % (47-70); Platelet Count 362 K/mm3 (150-450); RBC Distribution Width SD 36.5 fl (35.1-43.9); Red Blood Count 4.81 M/mm3 (4.2-5.4); White Blood Count 9.1 K/mm3 (4.4-11.0)
[2023-06-19 19:32] LABS: Anion Gap 9 (5-15); BUN 8 mg/dL (7-18); BUN/Creat Ratio 11.2 RATIO (10-20); Calcium,Total 9.3 mg/dL (8.5-10.1); Chloride 101 mmol/L (98-107); Creatinine, Serum 0.72 mg/dL (0.55-1.02); EST Glomerular Filtration Rate 88 mL/min (>60); Est Glom Filt Rate - Afr Amer 106 mL/min (>60); Estimated Creatinine Clearance 64.07 ml/min; Glucose 288 mg/dL (74-106); Potassium 3.3 mmol/L (3.5-5.1); Sodium Level 135 mmol/L (136-145)
--- NOTE | 2023-06-19 19:54 | ED.RN ---
pt complaining about the wait, about staff not immediately responding to her multiple call lights.
[2023-06-19 20:21] LABS: Bedside Glucose 242 mg/dL (74-106)
[2023-06-19 20:31] LABS: Hemoglobin A1c 12.4 % (3.8-5.6)
[2023-06-19] MEDS: 0.9% Normal Saline 1,000 ML 250 ML IV (20:53)
[2023-06-19 20:54] LABS: Bacteria 0 SEEN /hpf (None Seen); Mucous, Urine 0 SEEN /hpf (<or=2+); Red Blood Cells-Urine 0 SEEN /hpf (0-5); Squamous Epithelial Cells - UA 0 SEEN /hpf (5-10); White Blood Cells 0 SEEN /hpf (0-5)
[2023-06-19 20:56] LABS: Color, Urine Yellow (Yellow); Glucose, Dipstick 1000 mg/dl (Normal); Ketone-Dipstick 15 mg/dl (Negative); Leukocyte Esterase-Dipstick Negative /ul (Negative); Nitrite-Dipstick Negative (Negative); Occult Blood-Urine Negative /ul (Negative); Protein-Dipstick Negative (Negative); Specific Gravity, Urine 1.015 (1.002-1.030); Urine Bilirubin Dipstick Negative (Negative); Urine Clarity Clear (Clear); Urine Urobilinogen Normal (Normal)
[2023-06-19 21:06] LABS: Yeast-Urine RARE /hpf (None Seen)
[2023-06-19 21:25] LABS: Bedside Glucose 198 mg/dL (74-106)
== END 2023-06-19 21:09 | disposition home or self-care (01) ==
PROVIDERS: Emergency Provider Emergency Medicine; PCP Internal Medicine; Visit Provider Emergency Medicine
DX: E11.65 Type 2 diabetes mellitus with hyperglycemia (principal); J44.9 Chronic obstructive pulmonary disease, unspecified; I25.10 Atherosclerotic heart disease of native coronary artery without angina pectoris; F17.210 Nicotine dependence, cigarettes, uncomplicated; H53.8 Other visual disturbances; E78.00 Pure hypercholesterolemia, unspecified; I10 Essential (primary) hypertension; Z79.84 Long term (current) use of oral hypoglycemic drugs
CPT/HCPCS: 80048; 81001; 82009; 82962; 83036; 85025; 96360; 96361; 99282; J7030; A4216

== ENCOUNTER → 2023-10-15 | Outpatient (CLI) | payer MEDICARE, SELFPAY ==
[2023-10-15 14:24] LABS: Erythrocyte Sedimentation Rate 16 mm/hr (0-30)
[2023-10-15 14:26] LABS: Absolute Lymphocyte Count 3.33 X10^3/uL (0.83-4.51); Absolute Neutrophil Count 6.2 X10^3/uL (2.0-7.7); Basophil# 0.06 X10^3/uL; Basophil% 0.6 % (0-1); Eosinophils% 1.9 % (0-5); Hematocrit 44.1 % (37-47); Hemoglobin 14.4 g/dL (12.0-15.0); Lymphocyte # 3.33 X10^3/ul (0.83-4.51); Mean Corp Hgb Conc 32.7 g/dL (32-36); Mean Corpuscular Hgb 27.9 pg (27.0-32.0); Mean Corpuscular Volume 85.5 fL (81-99); Mean Platelet Vol. 8.8 fl (6.2-12.0); Monocyte# 0.63 X10^3/uL; NRBC Flagged by Analyzer 0 % (0-5); Neutrophil # 6.16 X10^3/uL (2.7-7.7); Neutrophil % 59.1 % (47-70); Platelet Count 481 K/mm3 (150-450); RBC Distribution Width CV 13.5 % (11.6-14.6); Red Blood Count 5.16 M/mm3 (4.2-5.4); White Blood Count 10.4 K/mm3 (4.4-11.0)
[2023-10-15 14:37] LABS: International Normalized Ratio 0.9; Prothrombin Time (Protime)PT. 12.5 SECONDS (11.7-14.9)
[2023-10-15 14:53] LABS: AST(SGOT) 32 U/L (15-37); Alanine Aminotransfer ALT/SGPT 37 U/L (13-56); Albumin, Serum 3.9 g/dL (3.2-5.0); Alkaline Phosphatase 96 U/L (45-117); Anion Gap 8 (5-15); BUN 8 mg/dL (7-18); BUN/Creat Ratio 9.7 RATIO (10-20); Calcium,Total 9.1 mg/dL (8.5-10.1); Chloride 104 mmol/L (98-107); Cholesterol 198 mg/dL (200); Creatinine, Serum 0.83 mg/dL (0.55-1.02); EST Glomerular Filtration Rate 74 mL/min (>60); Est Glom Filt Rate - Afr Amer 90 mL/min (>60); Ferritin 44 ng/mL (8-252); Globulin 3.9 g/dL (2.2-4.2); Glucose 95 mg/dL (74-106); High Density Lipoprotein 61 mg/dL; Iron Binding Capacity,Total 523 ug/dL (250-450); LDH 124 U/L (84-246); Potassium 3.9 mmol/L (3.5-5.1); Protein, Total 7.8 g/dL (6.4-8.2); Sodium Level 138 mmol/L (136-145); Triglycerides 279 mg/dL; Very Low Density Lipoprotein 56 mg/dL (5-40)
[2023-10-15 15:17] LABS: Hemoglobin A1c 6.5 % (3.8-5.6)
[2023-10-15 15:19] LABS: HIV - WCH Non-Reactive (Nonreactive)
[2023-10-19 14:08] LABS: Anti-Centromere B Ab <0.2 AI (0.0-0.9); Anti-Chromatin <0.2 AI (0.0-0.9); Anti-Jo <0.2 AI (0.0-0.9); Anti-Mitochondrial AB <20.0 Units (0.0-20.0); Anti-Scleroderma-70 AB <0.2 AI (0.0-0.9); Anti-dsDNA Ab <1 IU/mL (0-9); RNP Ab <0.2 AI (0.0-0.9); SJOGREN'S Anti-SS-A test < 0.2 AI (0.0-0.9); SJOGREN'S Anti-SS-B test < 0.2 AI (0.0-0.9); Smith Ab <0.2 AI (0.0-0.9)
[2023-10-27 04:07] LABS: Angiotensin Convert Enzyme 85 U/L (14-82); Anti-Smooth Muscle ABS 10 Units (0-19); Ceruloplasmin 31.9 mg/dL (19.0-39.0); Copper, Serum or Plasma 132 ug/dL (80-158); Cytoplasmic Ab (C-ANCA) <1:20 titer (Neg:<1:20); HEPATITIS B SURFACE AG Negative (Negative); Haptoglobin 237 mg/dL (37-355); Hep C Antibodies Non Reactive (Non Reactive); Hepatitis A IgM Antibody Negative (Negative); Hepatitis B Core AB IgM Negative (Negative); Perinuclear Ab (P-ANCA) <1:20 titer (Neg:<1:20); Transferrin 409 mg/dL (192-364)
== END | disposition home or self-care (01) ==
LOC: LAB 13:34
PROVIDERS: PCP Internal Medicine; Referring Provider Internal Medicine Gastroenterology; Visit Provider Internal Medicine Gastroenterology
DX: K75.81 Nonalcoholic steatohepatitis (NASH) (principal); J45.40 Moderate persistent asthma, uncomplicated; R73.09 Other abnormal glucose; R91.1 Solitary pulmonary nodule; I10 Essential (primary) hypertension; J32.9 Chronic sinusitis, unspecified; I25.10 Atherosclerotic heart disease of native coronary artery without angina pectoris
CPT/HCPCS: 36415; 80053; 80061; 80074; 82105; 82140; 82164; 82390; 82525; 82728; 83010; 83036; 83516; 83550; 83615; 84466; 85025; 85610; 85652; 86140; 86225; 86235; 86256; 86703

== ENCOUNTER → 2023-10-23 | Outpatient (CLI) | payer MEDICARE, SELFPAY ==
--- NOTE | 2023-10-23 19:10 | CT_ITS ---
EXAM: CT CHEST, LUNG CANCER SCREENING WITHOUT INTRAVENOUS CONTRAST CLINICAL INDICATION: smoker TECHNIQUE: Helically acquired images were obtained of the chest without intravenous contrast using low dose (LDCT) lung cancer screening protocol. This CT exam was performed using one or more of the following dose reduction techniques: automated exposure control, adjustment of the mA and/or kV according to patient size, and/or use of iterative reconstruction technique. COMPARISON: 09/17/2022 FINDINGS: LUNGS AND PLEURAL SPACES: There is scarring and emphysematous change in the lung apices which is stable. No mass. No pleural effusion or thickening. No pneumothorax. HEART: Unremarkable. Heart size is normal. No pericardial effusion. No significant coronary artery calcifications. MEDIASTINUM: Unremarkable. No mediastinal or hilar adenopathy. Esophagus is unremarkable. No hiatal hernia. THYROID: Unremarkable. No thyroid lesions. BONES/JOINTS: Unremarkable. No suspicious lytic or blastic abnormality. VASCULATURE: Unremarkable. Thoracic aorta is non-dilated. LYMPH NODES: Unremarkable. No enlarged lymph nodes. CT/Low Dose CT Lung Screening IMPRESSION: No acute pulmonary abnormality. There is minimal scarring and emphysematous change in the lung apices is stable. There has been no change from the reference exam. Lung-RADS score: 1 - Recommend continued annual screening with a low-dose CT (LDCT) in 12 months. Electronically Signed: Neno Muniz MD at 0:11 [facility] ,
== END | disposition home or self-care (01) ==
LOC: CT 18:55
PROVIDERS: PCP Internal Medicine; Visit Provider Nurse Practitioner Acute Care
DX: F17.210 Nicotine dependence, cigarettes, uncomplicated (principal)
CPT/HCPCS: 71271

== ENCOUNTER → 2023-10-26 | Outpatient (CLI) | payer MEDICARE, SELFPAY ==
--- NOTE | 2023-10-27 10:44 | PFT_ITS ---
INTRODUCTION: The patient is a 62-year-old female who presents for pulmonary function studies secondary to a diagnosis of asthma. Respiratory therapy reported good patient effort. Bronchodilators were used during testing. INTERPRETATION: Forced expiration spirometry demonstrates no evidence of a large airways obstructive ventilatory defect. There was no significant response to aer osolized bronchodilators. Spirograms are of good quality and plateau normally. Body plethysmography was performed and revealed an elevated RV to 188% of predicted, indicative of underlying air trapping. Diffusing capacity by single breath CO was within normal limits. IMPRESSION: Stigmata of small airways disease with evidence of air trapping.
== END | disposition home or self-care (01) ==
LOC: PSN 10:23
PROVIDERS: PCP Internal Medicine; Referring Provider Nurse Practitioner Acute Care; Visit Provider Nurse Practitioner Acute Care
DX: J45.40 Moderate persistent asthma, uncomplicated (principal)
CPT/HCPCS: 94060; 94726; 94729

== ENCOUNTER → 2023-10-29 | Outpatient (CLI) | payer MEDICARE, SELFPAY ==
[2023-05-29 08:32] VITALS: BMI 35.4
[2023-10-29 12:30] VITALS: PULSE 100; PULSE 108; PULSE 90; PULSE 94; PULSE 95; PULSE 98; O2SAT 93; O2SAT 94; O2SAT 95; O2SAT 96
--- NOTE | 2023-11-03 08:44 | WT_ITS ---
PSN 6 Minute Walk Test 6 Minute Walk Test 6 Minute Walk Test: 6 Minute Walk Test PSN:6-Minute Walk Test Start: 10/29/23 13:43 Freq: Status: Active Protocol: [id number] Document 10/29/23 12:30 RUDYANUJ (Rec: 10/29/23 13:45 [id number]) 6 Minute Walk Test Date Performed 10/29/23 Time Performed 12:30 Height 5 ft 1 in Weight: 185 lb Weight in Pounds 185.[address]: Eloise Holloway [employer] Assistive device used: None Pre-test Oxygen Delivery Method Room Air Pulse Ox 94 Pulse Rate (60-100) 94 Dyspnea Linette Scale (0-10) 0.5 Exertion Linette Scale (6-20) 6 1st minute Oxygen Delivery Method Room Air Pulse Ox 94 Pulse Rate (60-100) 94 2nd minute Oxygen Delivery Method Room Air Pulse Ox 94 Pulse Rate (60-100) 95 3rd minute Oxygen Delivery Method Room Air Pulse Ox 93 Pulse Rate (60-100) 98 4th minute Oxygen Delivery Method Room Air Pulse Ox 95 Pulse Rate (60-100) 98 5th minute Oxygen Delivery Method Room Air Pulse Ox 95 Pulse Rate (60-100) 100 6th minute Oxygen Delivery Method Room Air Pulse Ox 94 Pulse Rate (60-100) 108 H Dyspnea Linette Scale (0-10) 3 Exertion Linette Scale (6-20) 14 Post-test Oxygen Delivery Method Room Air Pulse Ox 96 Pulse Rate (60-100) 90 Full Laps Walked 16 Partial Lap, Number of Tiles Walked 12 Total Distance Walked (ft) 956 Interpretation Interpretation: The patient ambulated 956 feet over the course of 6 minutes beginning on room air without assistive devices. Pretesting oxygen saturation was noted to be 94% on room air. With ambulation, the norbert oxygen saturation was 93%. There was no significant exertional oxygen desaturation. Recommendations Recommendations: There is no indication for the use of supplemental oxygen at this time.
== END | disposition home or self-care (01) ==
LOC: PSN 12:24
PROVIDERS: PCP Internal Medicine; Referring Provider Nurse Practitioner Acute Care; Visit Provider Nurse Practitioner Acute Care
DX: R06.09 Other forms of dyspnea (principal)
CPT/HCPCS: 94618

== ENCOUNTER → 2023-11-13 | Outpatient (CLI) | payer MEDICARE, SELFPAY ==
--- NOTE | 2023-11-13 07:23 | US_ITS ---
STUDY: ABDOMINAL ULTRASOUND - RIGHT UPPER QUADRANT; ELASTOGRAPHY REASON FOR VISIT: Female, 62 years old. Fatty infiltration of the liver. TECHNIQUE: Ultrasound evaluation of the right upper quadrant was performed with real-time and static ferris-scale imaging. Point quantification shear wave elastography was performed ([place]). TECHNICAL QUALITY: Adequate. COMPARISON: None. FINDINGS: Liver: The liver measures 17.2 cm. There is increased echogenicity consistent with fatty infiltration. The bile ducts are within normal limits. There is hepatic color flow. The direction of portal flow is hepatopetal. There is no demonstrated mass lesion. Median liver stiffness measured 7.9 kPa. Gallbladder: The patient is status post cholecystectomy. Common Bile Duct (C.B.D.): The common bile duct measures 6 mm. Pancreas: There is normal echogenicity of the visualized pancreas. There is no demonstrated pancreatic mass or cyst. Right Kidney: Normal size of the right kidney. The right kidney measures 10 cm x 5.1 cm x 4.8 cm. Normal renal cortex. The right cortex measures 1.4 cm. There is no demonstrated renal mass or cyst. There is no right hydronephrosis. US/ABD Limited w/ Elastography IMPRESSION: 1. Liver stiffness measures 7.9 kPa compatible with F2-F3 (Mild to moderate liver fibrosis) Metavir score. Electronically Signed: Randell Cornell MD at 9:50 EST ,
--- OUTSIDE RECORDS SUMMARY | 2023-11-13 07:26 | XMS RPT_ITS | CCD ---
Author Name Unknown Address [address] [place] [address] Organization [facility] Care Team Providers Care Flaker Operator Name Role Phone SAM, REHANA E Unavailable Unavailable CEBUL III, ANDREW A Unavailable Unavailable ARETHA DOMINIQUE Unavailable Unavailable CATINAARETHA WAYNE Unavailable Unavailable SAM, REHANA E Unavailable Unavailable SAM, REHANA E Unavailable Unavailable SAM, REHANA Unavailable Unavailable CEBUL, ANDREW Unavailable Unavailable CEBUL, ANDREW Unavailable Unavailable SAM, REHANA Unavailable Unavailable CEBUL, ANDREW Unavailable Unavailable CEBUL, ANDREW Unavailable Unavailable CATINAARETHA Unavailable Unavailable CATINAARETHA Unavailable Unavailable CEBUL, ANDREW Unavailable Unavailable SAM, REHANA Unavailable Unavailable CEBUL, ANDREW Unavailable Unavailable SAM, REHANA Unavailable Unavailable SAM, REHANA Unavailable Unavailable SAM, REHANA Unavailable Unavailable CEBUL, ANDREW Unavailable Unavailable ABDOLLAHI MOFAKHAM, YAKELIN Unavailable Unav ailable ABDOLLAHI MOFAKHAM, YAKELIN Unavailable Unav ailable CEBUL III, ANDREW A Unavailable Unavailable SHAMEKA ROMO Unavailable Unavail able SHAMEKA ROMO Unavailable Unavail able Meggan THEODORE MD, Frank A Unavailable UnavailMichelle Pang MD Primary Care Provider [facility], [place]eti Unavailable Meggan THEODORE MD, Frank A Unavailable UnavailMichelle Pang MD Primary Care Provider [facility], [place]eti Unavailable Allergies Allergy Classification Reported Allergen(s) Allergy Type Date of Onset Reaction(s) Facility (18 sources) acetaminophen / HYDROcodone; Translations: [HYDROCODONE-ACET AMINOPHEN] Drug Allergy 6 [facility] (18 sources) acetaminophen / oxyCODONE; Translations: [OXYCODONE-ACETAM INOPHEN] Drug Allergy [address] [facility] (18 sources) Adhesive Tape; Translations: [ADHESIVE TAPE (ROSINS)] Propensity to adverse reactions (disorder) 2 Rash, Itching [facility] (18 sources) carBAMazepine; Translations: [CARBAMAZEPINE] Drug Allergy [address] [facility] (20 sources) cephalexin; Translations: [CEPHALEXIN] Drug Allergy 6 Swelling, Itching, Shortness of Breath [facility] (18 sources) doxycycline; Translations: [DOXYCYCLINE CALCIUM] Drug Allergy 7 Hives, Itching [facility] (3 sources) HYDROmorphone; Translations: [HYDROMORPHONE (BULK)] Drug Allergy [address] [facility] (18 sources) HYDROmorphone; Translations: [HYDROMORPHONE HCL] Drug Allergy 7 Other: See Comments [facility] (18 sources) Latex; Translations: [LATEX] Propensity to adverse reactions to drug (disorder) [address] [facility] (18 sources) levoFLOXacin; Translations: [LEVOFLOXACIN] Drug Allergy [address] [facility] (18 sources) lisinopril; Translations: [LISINOPRIL] Drug Allergy 5 Other: See Comments [facility] (20 sources) oxyCODONE; Translations: [OXYCODONE] Drug Allergy 0 Itching, Hives, Swelling [facility] (18 sources) penicillin; Translations: [PENICILLIN] Drug Allergy [address] [facility] (3 sources) Penicillins; Translations: [PENICILLINS] Propensity to adverse reactions to drug (disorder) [address] [facility] (18 sources) Sulfonamides (Antibiotic); Translations: [SULFA (SULFONAMIDE ANTIBIOTICS)] Propensity to adverse reactions to drug (disorder) 6 [facility] (20 sources) PROPOXYPHENE N-ACETAMINOPHEN; Translations: [PROPOXYPHENE N-ACETAMINOPHEN] Propensity to adverse reactions to drug (disorder) [address] [facility] (18 sources) POLYMYXIN B SULF-TRIMETHOPRIM ; Translations: [POLYMYXIN B SULF-TRIMETHOPRIM ] Propensity to adverse reactions to drug (disorder) 5 Swelling, Itching [facility] (18 sources) HEPARIN ANALOGUES; Translations: [HEPARIN ANALOGUES] Propensity to adverse reactions to drug (disorder) 3 Hives, Swelling [facility] (3 sources) OTHER; Translations: [OTHER] Propensity to adverse reactions (disorder) 6 [facility] (15 sources) Acetaminophen Drug Allergy 9 [facility] (13 sources) Adhesive agent Drug Allergy 9 Rash [facility] (15 sources) Budesonide Drug Allergy 0 Angioedema [facility] (13 sources) Budesonide / formoterol Drug Allergy 0 Vomiting [facility] (15 sources) Dust Allergy to substance 0 Unknown [facility] (15 sources) formoterol Drug Allergy 0 Angioedema [facility] (15 sources) House dust mite Allergy to substance 0 Unknown [facility] (15 sources) Oxytocin Drug Allergy 9 [facility] (15 sources) Propoxyphene Drug Allergy 9 [facility] (15 sources) EES [Other] Propensity to adverse reactions 6 [facility] Work Phone: (2 sources) Adhesive agent Drug Allergy 9 Rash [facility] (2 sources) Budesonide / formoterol Drug Allergy 0 Vomiting [facility] Medications Current Medications Medication Drug Class(es) Dates Sig (Normalized) Sig (Original) benzonatate 100 mg oral capsule (3 sources) Non-narcotic Antitussive Start: 03-03-2022 End: 03-19-2022 take 1 capsule by mouth every eight hours as needed benzonatate (TESSALON PERLES) 100 mg capsule Take 1 capsule by mouth three times daily as needed for cough. 15 capsule 0 03/03/2022 03/19/2022 Discontinued Completed/Discontinued Medications Medication Drug Class(es) Dates Sig (Normalized) Sig (Original) [id number] 200 actuat albuterol 0.09 mg/actuat metered dose inhaler (15 sources) beta2-Adrenergic Agonist Start: 07-09-2021 take 2 puff(s) by inhalation every four hours as needed for wheezing albuterol HFA (VENTOLIN HFA) 90 mcg/actuation inhaler Indications: Moderate persistent asthma with acute exacerbation Inhale 2 Puffs as instructed every 4 hours as needed for wheezing/shortness of breath. 18 g 1 07/09/2021 Active Problems Active Problems Problem Classification Problem Date Documented Date Episodic/Chronic Anxiety disorders (19 sources) Generalized anxiety disorder; Translations: [Generalized anxiety disorder] Onset: 04-26-2016 Chronic Asthma (15 sources) Asthma; Translations: [Unspecified asthma, uncomplicated] Onset: 05-24-2013 Chronic Chronic obstructive pulmonary disease and bronchiectasis (15 sources) Bronchiectasis; Translations: [Bronchiectasis, uncomplicated] Onset: 01-21-2022 01-21-2022 Chronic Chronic obstructive pulmonary disease and bronchiectasis (1 source) Bronchitis; Translations: [Bronchitis, not specified as acute or chronic] Episodic Coronary atherosclerosis and other heart disease (20 sources) Atherosclerotic heart disease of kashia coronary artery without angina pectoris; Translations: [Angina pectoris, unspecified] Onset: 10-14-2011 09-03-2018 Chronic Diabetes mellitus without complication (15 sources) Type 2 diabetes mellitus without complication; Translations: [Type 2 diabetes mellitus without complications] Onset: 07-15-2018 08-06-2021 Chronic Diseases of white blood cells (20 sources) Band neutrophil count above reference range; Translations: [Bandemia] Onset: 01-29-2018 01-29-2018 Chronic Disorders of lipid metabolism (18 sources) Other hyperlipidemia; Translations: [Hyperlipidemia, unspecified] Onset: 10-14-2011 11-11-2021 Chronic Esophageal disorders (15 sources) Gastroesophageal reflux disease without esophagitis; Translations: [Gastro-esophageal reflux disease without esophagitis] Onset: 02-10-2017 07-15-2018 Chronic Essential hypertension (16 sources) Essential (primary) hypertension; Translations: [Benign essential hypertension] Onset: 09-09-2010 Chronic Genitourinary symptoms and ill-defined conditions (16 sources) Mixed urinary incontinence; Translations: [Mixed incontinence] Onset: 07-16-2018 07-16-2018 Chronic Headache; including migraine (15 sources) Migraine; Translations: [Migraine, unspecified, not intractable, without status migrainosus] Onset: 01-23-2012 Chronic Immunizations and screening for infectious disease (1 source) Suspected disease caused by 2019-nCoV; Translations: [Suspected COVID-19 virus infection] Episodic Mood disorders (20 sources) Recurrent major depressive episodes, moderate ; Translations: [Major depressive disorder, recurrent, moderate] Onset: 2010 Chronic Nutritional deficiencies (15 sources) Vitamin D deficiency; Translations: [Vitamin D deficiency, unspecified] Onset: 03-19-2011 03-19-2011 Chronic Occlusion or stenosis of precerebral arteries (15 sources) Arteriosclerosis of carotid artery; Translations: [Occlusion and stenosis of unspecified carotid artery] Onset: 02-12-2015 02-12-2015 Chronic Osteoporosis (15 sources) Osteoporosis; Translations: [Age-related osteoporosis without current pathological fracture] Onset: 03-13-2011 03-13-2011 Chronic Other and ill-defined cerebrovascular disease (15 sources) Cerebral ischemia; Translations: [Cerebral ischemia] Onset: 01-21-2022 01-21-2022 Chronic Other endocrine disorders (15 sources) Gastrointestinal hormone level - finding; Translations: [Increased secretion of gastrin] Onset: 06-02-2013 06-02-2013 Chronic Other liver diseases (1 source) Fatty (change of) liver, not elsewhere classified; Translations: [Fatty (change of) liver, not elsewhere classified] Onset: 08-27-2018 Chronic Other liver diseases (15 sources) Steatosis of liver; Translations: [Fatty (change of) liver, not elsewhere classified] Onset: 07-30-2018 07-30-2018 Chronic Other nervous system disorders (15 sources) Central pain syndrome; 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] Onset: 04-24-2017 04-24-2017 Chronic Other nervous system disorders (2 sources) Chronic pain syndrome; Translations: [Chronic pain syndrome] Chronic Other nutritional; endocrine; and metabolic disorders (15 sources) Body mass index 30+ - obesity; Translations: [Obesity, unspecified] Onset: 05-03-2015 05-03-2015 Chronic Other nutritional; endocrine; and metabolic disorders (15 sources) Metabolic syndrome X; Translations: [Metabolic syndrome] Onset: 01-21-2022 01-21-2022 Chronic Other upper respiratory infections (15 sources) Chronic sinusitis; Translations: [Chronic sinusitis, unspecified] Onset: 01-21-2022 01-21-2022 Chronic Residual codes; unclassified (15 sources) Obstructive sleep apnea syndrome; Translations: [Obstructive sleep apnea (adult) (pediatric)] Onset: 03-03-2015 03-03-2015 Chronic Residual codes; unclassified (5 sources) Insomnia; Translations: [Insomnia, unspecified] Episodic Spondylosis; intervertebral disc disorders; other back problems (15 sources) Degeneration of cervical intervertebral disc; Translations: [Other cervical disc degeneration, unspecified cervical region] Onset: 2010 Chronic Substance-related disorders (15 sources) Cigarette smoker ; Translations: [Nicotine dependence, cigarettes, uncomplicated] Onset: 01-21-2022 01-21-2022 Chronic Unclassified (3 sources) Other abnormal and inconclusive findings on diagnostic imaging of breast; Translations: [Patient encounter status] Onset: 10-09-2017 Episodic Unclassified (1 source) Unknown / UNK(Unknown) Onset: 05-23-2016 Unclassified (15 sources) SUMMARY Onset: 05-24-2013 05-26-2013 Past or Other Problems Problem Classification Problem Date Documented Date Episodic/Chronic Abdominal hernia (15 sources) Incisional hernia; Translations: [Incisional hernia without obstruction or gangrene] Onset: 11-18-2017 11-18-2017 Episodic Cancer of cervix (15 sources) Atypical squamous cells of undetermined significance on cervical Papanicolaou smear; Translations: [Atypical squamous cells of undetermined significance on cytologic smear of cervix (ASC-US)] Onset: 12-07-2019 12-07-2019 Episodic E Codes: Adverse effects of medical drugs (15 sources) Vaccines adverse reaction; Translations: [Adverse effect of other vaccines and biological substances, initial encounter] Onset: 02-22-2021 02-22-2021 Episodic Gastritis and duodenitis (15 sources) Bile-induced gastritis; Translations: [Other gastritis without bleeding] Onset: 09-23-2018 09-23-2018 Episodic Nonspecific chest pain (1 source) Chest pain, unspecified; Translations: [Chest pain, unspecified] Onset: 01-18-2018 Episodic Other aftercare (17 sources) Marijuana user; Translations: [Other rodent exterminator (current) drug therapy] Onset: 07-29-2021 Episodic Other bone disease and musculoskeletal deformities (15 sources) Osteopenia; Translations: [Other specified disorders of bone density and structure, multiple sites] Onset: 2021 2021 Episodic Other circulatory disease (15 sources) Orthostatic hypotension; Translations: [Orthostatic hypotension] Onset: 02-11-2017 02-11-2017 Episodic Other circulatory disease (15 sources) History of cerebrovascular disease; Translations: [Personal history of transient ischemic attack (TIA), and cerebral infarction without residual deficits] Onset: 02-10-2017 07-15-2018 Episodic Other hematologic conditions (15 sources) Secondary polycythemia; Translations: [Secondary polycythemia] Onset: 02-02-2018 02-02-2018 Episodic Other lower respiratory disease (15 sources) Nodule of lung; Translations: [Solitary pulmonary nodule] Onset: 03-02-2018 03-02-2018 Episodic Other lower respiratory disease (16 sources) Cough; Translations: [Cough] Onset: 01-21-2022 01-21-2022 Episodic Residual codes; unclassified (15 sources) Tobacco user; Translations: [Tobacco use] Onset: 01-23-2012 11-11-2021 Episodic Spondylosis; intervertebral disc disorders; other back problems (20 sources) Lumbar radiculopathy; Translations: [Radiculopathy, lumbar region] Onset: 12-29-2014 12-29-2014 Episodic Results Test Name Value Interpretation Reference Range Facil ity Vital Signs Date Time Vital Sign Value Performing Clinician Faci lity 04-03-2022 14:47-0400 Body temperature 98.71 [degF] Courtney Mata APRN.CNP Work Phone: [facility] 04-03-2022 14:47-0400 Body weight 92.17 kg Courtney Mata APRN.CNP Work Phone: [facility] 04-03-2022 14:47-0400 Diastolic blood pressure 80 mm[Hg] Courtney Mata APRN.CNP Work Phone: [facility] 04-03-2022 14:47-0400 Heart rate 113 /min Courtney Mata CHEMICAL ENGINEERING TEACHER.PLANT ANATOMY TEACHER Work Phone: [facility] 04-03-2022 14:47-0400 Respiratory rate 20 /min Courtney Mata CHEMICAL ENGINEERING TEACHER.PLANT ANATOMY TEACHER Work Phone: [facility] 04-03-2022 14:47-0400 SaO2% (BldA) [Mass fraction] 97 % Courtney Mata CHEMICAL ENGINEERING TEACHER.PLANT ANATOMY TEACHER Work Phone: [facility] 04-03-2022 14:47-0400 Systolic blood pressure 130 mm[Hg] Courtney Mata CHEMICAL ENGINEERING TEACHER.PLANT ANATOMY TEACHER Work Phone: [facility] 03-03-2022 13:24-0400 Body temperature 99.39 [degF] Bobby Piña CHEMICAL ENGINEERING TEACHER.PLANT ANATOMY TEACHER Work Phone: [facility] 03-03-2022 13:24-0400 Body weight 93.89 kg Bobby Piña CHEMICAL ENGINEERING TEACHER.PLANT ANATOMY TEACHER Work Phone: [facility] 03-03-2022 13:24-0400 Diastolic blood pressure 74 mm[Hg] Bobby Pendlebury CHEMICAL ENGINEERING TEACHER.PLANT ANATOMY TEACHER Work Phone: [facility] 03-03-2022 13:24-0400 Heart rate 106 /min Bobby Piña CHEMICAL ENGINEERING TEACHER.PLANT ANATOMY TEACHER Work Phone: [facility] 03-03-2022 13:24-0400 Respiratory rate 18 /min Bobby Pendlearmin CHEMICAL ENGINEERING TEACHER.PLANT ANATOMY TEACHER Work Phone: [facility] 03-03-2022 13:24-0400 SaO2% (BldA) [Mass fraction] 95 % Bobby Kryslearmin CHEMICAL ENGINEERING TEACHER.PLANT ANATOMY TEACHER Work Phone: [facility] 03-03-2022 13:24-0400 Systolic blood pressure 128 mm[Hg] Bobby Pendlearmin CHEMICAL ENGINEERING TEACHER.PLANT ANATOMY TEACHER Work Phone: [facility] Encounters Encounter Date Encounter Type Care Provider Facility Start: 11-04-2023 ambulatory Michelle Tejada MD Work Phone: [facility] Start: 11-19-2022 ambulatory Michelle Tejada MD Work Phone: [facility] Start: 04-15-2022 End: 04-15-2022 [facility] Ciara Price CHEMICAL ENGINEERING TEACHER.HAM Work Phone: Psychiatry Procedures Date Procedure Procedure Detail Performing Clinician Start: 10-22-2021 Colonoscopy Ciara cueto CHEMICAL ENGINEERING TEACHER.HAM Work Phone: Start: 10-14-2021 Mammography Ciara cueto CHEMICAL ENGINEERING TEACHER.PLANT ANATOMY TEACHER Work Phone: Plan of Treatment Date Care Activity Detail Author Start: 04-27-2029 Urine microalbumin profile [facility] Start: 10-22-2026 Colonoscopy COLONOSCOPY [facility] Start: 10-22-2026 COLORECTAL CANCER SCREENING COLORECTAL CANCER SCREENING [facility] Start: 10-22-2026 Screening for malignant neoplasm of colon [facility] Start: 11-30-2024 HPV TESTING HPV TESTING [facility] Start: 11-30-2024 PAP TESTING PAP TESTING [facility] Start: 11-30-2024 Screening for malignant neoplasm of cervix [facility] Start: 07-17-2023 Covid-19 Vaccine () Covid-19 Vaccine () [facility] Start: 07-17-2023 Influenza vaccination Influenza Vaccine (#1) [facility] Start: 03-19-2023 ANNUAL PCP TEAM CHRONIC DISEASE VISIT ANNUAL PCP TEAM CHRONIC DISEASE VISIT [facility] Start: 03-03-2023 BP CONTROLLED (<130/80) BP CONTROLLED (<130/80) [facility] Start: 11-27-2022 ANNUAL PCP TEAM CHRONIC DISEASE VISIT ANNUAL PCP TEAM CHRONIC DISEASE VISIT [facility] Start: 10-14-2022 Mammography MAMMOGRAM [facility] Start: 10-14-2022 Screening for malignant neoplasm of breast Mammogram Screening [facility] Start: 08-26-2022 3 comp foot exam completed DIABETIC FOOT EXAM [facility] Start: 08-26-2022 Diabetic foot examination Diabetic Foot Exam [facility] Start: 08-13-2022 FECAL OCCULT BLOOD FECAL OCCULT BLOOD [facility] Start: 08-13-2022 Screening for malignant neoplasm of colon Fecal Occult Blood [facility] Start: 08-01-2022 Hepatitis B surface antibody level LDL CHOLESTEROL [facility] Start: 07-17-2022 Influenza vaccination INFLUENZA (#1) [facility] Start: 05-25-2022 Hemoglobin A1c measurement HbA1C [facility] Start: 05-25-2022 Hemoglobin A1c/Hemoglobin.total in Blood HBA1C [facility] Start: 04-18-2021 COVID-19 VACCINE (2 - Booster for Lamin series) COVID-19 VACCINE (2 - Booster for Lamin series) [facility] Start: 2020 RSV Vaccine (1 - 1-dose 60+ series) RSV Vaccine (1 - 1-dose 60+ series) [facility] Start: 07-15-2019 BP CONTROLLED (<130/80) BP CONTROLLED (<130/80) [facility] Start: 2015 Influenza vaccination LUNG CANCER SCREENING [facility] Start: 08-16-2013 PNEUMOCOCCAL (2 - PCV) PNEUMOCOCCAL (2 - PCV) [facility] Start: 08-16-2013 Pneumococcal vaccination Pneumococcal Vaccine (2 of 2 - PCV) [facility] Start: 2010 Influenza vaccination LUNG CANCER SCREENING [facility] Start: 2010 SHINGRIX VACCINE (1 of 2) SHINGRIX VACCINE (1 of 2) [facility] Start: 2005 COLOGUARD (FIT-DNA) COLOGUARD (FIT-DNA) [facility] Start: [address] COLONOGRAPHY [facility] Start: 2005 Screening for malignant neoplasm of colon [facility] Start: 2005 SIGMOIDOSCOPY SIGMOIDOSCOPY [facility] Start: 1978 SPIROMETRY SPIROMETRY [facility] Start: 1970 Glaucoma screening Dilated Retinal Exam [facility] Start: 1970 Hepatitis B screening URINE ALBUMIN:CREATININE RATIO [facility] Start: 1970 Hepatitis C antibody, confirmatory test DILATED RETINAL EXAM [facility] Influenza virus A an d B RNA and SARS-CoV-2 (COVID-19) N gene panel - Respiratory specimen by ARMAND with probe detection COVID WITH FLUA+B, ROUTINE Microbiology Routine Suspected COVID-19 virus infection Ordered: 03/03/2022 [facility] Work Phone: Immunizations Immunization Date Immunization Notes Care Provider Fa cility 08-20-2021 influenza, seasonal, injectable Ciara Rajguru CHEMICAL ENGINEERING TEACHER.PLANT ANATOMY TEACHER Work Phone: [facility] Work Phone: 08-20-2021 influenza virus vacc ine, unspecified formulation Michelle Tejada MD Work Phone: [facility] 02-21-2021 COVID-19 vaccine (LAMIN) Ciara Rajguru CHEMICAL ENGINEERING TEACHER.PLANT ANATOMY TEACHER Work Phone: [facility] Work Phone: 09-13-2019 influenza virus vacc ine, unspecified formulation Ciara Rajguru CHEMICAL ENGINEERING TEACHER.PLANT ANATOMY TEACHER Work Phone: [facility] 04-27-2019 tetanus toxoid, redu dianne diphtheria toxoid, and acellular pertussis vaccine, adsorbed Ciara Rajguru CHEMICAL ENGINEERING TEACHER.PLANT ANATOMY TEACHER Work Phone: [facility] 09-03-2018 influenza, injectabl e, quadrivalent, contains preservative Ciara Rajguru CHEMICAL ENGINEERING TEACHER.PLANT ANATOMY TEACHER Work Phone: [facility] 09-24-2016 influenza, seasonal, injectable Ciara Rajguru CHEMICAL ENGINEERING TEACHER.PLANT ANATOMY TEACHER Work Phone: [facility] 09-24-2016 influenza, seasonal, injectable, preservative free Ciara Rajguru CHEMICAL ENGINEERING TEACHER.PLANT ANATOMY TEACHER Work Phone: [facility] 09-19-2015 influenza, injectabl e, quadrivalent, contains preservative Ciara Rajguru CHEMICAL ENGINEERING TEACHER.PLANT ANATOMY TEACHER Work Phone: [facility] 11-10-2013 influenza virus vacc ine, unspecified formulation Ciara Rajguru CHEMICAL ENGINEERING TEACHER.PLANT ANATOMY TEACHER Work Phone: [facility] 08-16-2013 influenza, seasonal, injectable, preservative free Ciara Rajguru CHEMICAL ENGINEERING TEACHER.PLANT ANATOMY TEACHER Work Phone: [facility] 08-16-2012 pneumococcal polysaccharide vaccine, 23 valent Ciara Rajguru CHEMICAL ENGINEERING TEACHER.PLANT ANATOMY TEACHER Work Phone: [facility] 08-19-2010 pneumococcal polysaccharide vaccine, 23 valent Ciara Rajguru CHEMICAL ENGINEERING TEACHER.PLANT ANATOMY TEACHER Work Phone: [facility] Payers Date Payer Category Payer Medicare MMO MEDICARE MMO MEDADVANTAGE HMO [id number] 2017-Present [phone] [address] [place] [address] O [id number] 2017 Medicare MMO MEDICARE MMO MEDADVANTAGE O [id number] 2017-Present [phone] [address] [place] [address] O [id number] Unknown [id number] Social History Date Type Detail Facility Start: 10-16-2021 Tobacco smoking stat [facility] Smokes tobacco daily [facility] Work Phone: History of tobacco use Cigarette Smoker [facility] Start: 02-17-2022 End: 04-03-2022 Alcohol intake Current drinker of alcohol (finding) [facility] Start: 02-17-2022 End: 11-28-2022 Alcohol intake [facility] Start: 09-11-2021 End: 03-19-2022 History SDOH Alcohol Frequency 2 [facility] Start: 09-11-2021 End: 03-19-2022 History SDOH Alcohol Std Drinks 1 [facility] Start: 09-11-2021 End: 03-19-2022 History SDOH Social Connections Phone 5 [facility] Start: 09-11-2021 End: 03-19-2022 History SDOH Social Connections Living 4 [facility] Start: 09-11-2021 History SDOH Physica l Activity DPW 0 [facility] Start: 09-06-2015 Tobacco Comment trying to quit [facility] Start: 1960 Sex Assigned At Female [facility] Start: 12-22-2021 End: 04-03-2022 Exposure to SARS-CoV-2 (event) Not sure [facility] Start: 03-19-2022 History SDOH Social Connections Get Together 98 [facility] Start: 03-19-2022 History SDOH Physica l Activity DPW 3 [facility] Start: 10-16-2021 Tobacco use and exposure Smokeless tobacco non-user [facility] Work Phone: Start: 03-19-2022 End: 11-28-2022 Social connection and isolation panel [facility] How often do you get together with friends or relatives? Patient refused [facility] Are you now , , , , never or living with a partner? [facility] How often to you hav e a drink containing alcohol? Never [facility] (I/We) worried whejayesh er (my/our) food would run out before (I/we) got money to buy more. Never true [facility] In the past 12 month s, was there a time when you were not able to pay the mortgage or rent on time? No [facility] Start: 03-22-2019 Gender identity Identifies as female gender (finding) [facility] Start: 03-22-2019 Sexual orientation Heterosexual (sarina acosta) [facility] Medical Equipment Procedure Code Equipment Code Equipment Origin al Text Equipment Identifier Dates Test blood sugar (s) 1 times daily. Dx: Type 2 DM - Uncontrolled E11.65 Insulin: No Start: 08-26-2021 Clinical Notes 07-28-2018 to 11-04-2023 Ciara Price APRN.[facility] - 04/15/2022 2:37 PM EDTPatient Yogesh Mata APRN.[facility] - 04/03/2022 2:56 PM EDTTelephone Encounter - Danielle Kamara APRN.[facility] - 04/02/2022 4:30 PM EDT Note Date & Type Note Facility 11-04-2023 Note Patient Outreach (IN TMMN) BRITNEY NICOLE ([id number]) 1960 F Date Time Provider Department 11/04/23 MICHELLE TEJADA During your visit today, we recorded the following information about you: Allergies As of Date: 11/04/2023 Noted Allergy Reaction ACETAMINOPHEN 09/13/2019 4 - Hives LATEX 10/21/2013 2 - Rash PROPOXYPHENE 09/13/2019 4 - Hives SULFA (SULFONAMIDE ANTIBIOTICS) 11/24/2005 4 - Hives ADHESIVE 09/13/2019 2 - Rash BUDESONIDE 02/10/2020 18 - Angioedema Comments: Can use prednisone orally DARVOCET A500 (PROPOXYPHENE N-CORRIE*08/05/2017 9 - Itching DARVOCET-N 100 (PROPOXYPHENE N-AC*12/11/2009 9 - Itching DILAUDID (HYDROMORPHONE HCL) 08/05/2017 14 - Other: See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 she is out of breath if she climes up and down a flight of stairs. States she has allergies, asthma, and is a smoker. She says she has been taking Mucinex, Afrin, and Sudafed. Pt asking provider for advise. documented in this encounter [facility] 03-25-2022 Miscellaneous Notes 2nd attempt to reach patient. LVM to call back to schedule for urology. Thank you Rosy Alvarenga Called PT LVM to call back and schedule appt. Please assist patient with scheduling urology. documented in this encounter [facility] 03-19-2022 History of Presen t illness Narrative Images from the original note were not included. PSYC FOLLOW UP - PSYCHIATRIC PROGRESS NOTE DIAGNOSIS: 1. Insomnia, NOS 2. MDD, recurrent, moderate 3. RODERICK GAF: -60-51 Moderate symptoms or moderate difficulty in social, occupational or school functioning. TREATMENT PLAN: 1. Restart Seroquel to help with sleep difficulties instead of Ambien. 2. Continue Wellbutrin and Lexapro at the same dose. 3. Discuss changing Lexapro to Cymbalta at the next visit if her physical health improves as Cymbalta may help more with her pain. 4. She will consider scheduling an appointment for acupuncture regarding pain management after her physical health improves. 5. Follow up in 4 weeks. The effects and side effects of all the medications were reviewed with the patient in detail. She denies any involuntary movement related side effects. Patient is in agreement with the treatment plan. She is aware to reach out with any questions, concerns, or worsening of symptoms prior to the next appointment. CC: Follow up regarding sleep and mood With the patient consent, visit was performed virtually. HPI: Britney Nicole is a 61 year old Female with a history of RODERICK, MDD, and insomnia presenting today for follow-up. Date of last visit: 02/25/2022 Plan from last visit: 1. Discontinue Elavil due to lack of efficacy. 2. Start Ambien to help with her sleep difficulties. 3. Continue Wellbutrin and Lexapro at the same dose. 4. Consider the addition of Cymbalta in place of Lexapro if patient continues to struggle with her mood and anxiety as Cymbalta may help with her pain as well. 5. Consider accupunture for pain management. 6. Follow up in 2 weeks. Today Britney shares that her PCP thinks she might have had COVID. She has a cough and feels really tired. She does not have energy to do anything. Reports that she first started experiencing these symptoms 3 weeks ago. Even her dogs are sick and coughing. She is concerned about her youngest grand daughter being sick. They have not assessed her for COVID yet. Shares that she is using Seroquel to fall asleep instead of Ambien. Was unable to fall asleep without that. She is concerned about urinary incontinence and is going to see a urologist. Wonders if some of the daytime fatigue symptoms may be related to her physical health symptoms instead of side effects related to Ambien as she started to take Ambien around the same time that her physical health struggles began. She would like to continue the Seroquel right now and then revisit Ambien later. She has been concerned about weight gain due to lack of activity. She has been struggling with weight gain prior to starting the Seroquel. She has not been able to go on walks with her dog due to her health. Her appetite has decreased significantly due to her illness. She has good help in her son. She is hoping for some improvement in symptoms as Dr. Tejada ordered anti-biotics and steroid. She lost a tooth and has to get it replaced. She is supposed to go to [place] for vacation in April with her Aunt. She is hoping to feel better by then. Interval Progress: Same Risks and benefits of the medication, including any black box warnings, were discussed with the patient. Social History: See HPI PATIENT DATA: Generalized Anxiety Disorder Scale (RODERICK-7) RODERICK - 7 SCORES 02/14/2022 02/25/2022 03/19/2022 RODERICK-7 Score 6 7 4 (0-4) minimal anxiety, (5-9) mild anxiety, (10-14) moderate anxiety, (15-21) severe anxiety Patient Health Questionnaire (PHQ-9) PHQ-9 02/14/2022 02/25/2022 03/19/2022 Score 8 13 11 (0-4) minimal depression, (5-9) mild depression, (10-14) moderate depression, (15-19) moderately severe depression, (20-27) severe depression ROS: See HPI VITAL SIGNS: Not obtained due to virtual visit BP Temp Pulse Resp SpO2 MENTAL STATUS EXAMINATION: Appearance: Appropriately groomed, appears stated age Behavior: Appropriately engaged Psychomotor: No psychomotor agitation Cognition Level of Consciousness: Awake and alert. No fluctuation in wakefulness. Orientation: Grossly oriented Memory: Intact Attention/Concentration: Good Fund of Knowledge: Able to demonstrate an awareness of current events. Mood: Euthymic Affect: Congruent to mood Speech/Language: Appropriate tone, prosody, laury, phonetics, and syntax Thought Form: Goal-directed. No loosening of associations. Thought Content: No delusions noted or endorsed. Perceptual Disturbances: Did not appear to respond to auditory stimuli. Safety: Suicidal Ideations: No suicidal ideation, intent or plan. Homicidal Ideations: No homicidal ideation, intent or plan. Insight: Appropriate Judgment: Appropriate I spent a total of 28 minutes on the date of the service which included preparing to see the patient, [id number] patient care, completing clinical documentation, and counseling and educating the patient/family/caregiver, ordering medications/labs. Ciara Price APRN.HAM March 19, 2022 1:35 PM documented in this encounter [facility] 03-19-2022 History of Presen t illness Narrative Patient presents with: Acute Visit HPI:This Team Access Model visit is a virtual encounter. It required patient-provider interaction for the medical decision making as documented below. Patient was offered a virtual/telemedicine appointment in lieu of an office visit due to recommendations to reduce patient exposure to COVID-19. Patient is aware of limitations of performing the visit without a face to face visit in the office setting and agrees. Seen at urgent care on 03/03. Had negative chest xray and covid test. Symptoms had started two days before that. Gave her tessalon. Has improved slightly. Was very hoarse initially but is now better. Had a fever. Her dogs are sick as well. Slightly short of breath. Is wheezy. No sore throat or ear pain. Some headaches. Some sinus pressure. No nausea or vomiting or new diarrhea. No current issues with taste or smell but was present a few weeks ago. Last a1c was good and sugars have been good. She requests to see urology. Has had chronic incontinence that is worsening. MEDICATIONS: Current Outpatient Medications Medication Sig benzonatate (TESSALON PERLES) 100 mg capsule Take 1 capsule by mouth three times daily as needed for cough. zolpidem (AMBIEN) 5 mg tablet Take 1 tablet by mouth at bedtime as needed for up to 30 days. buPROPion HCL (WELLBUTRIN SR) 200 mg 12 hr tablet Take 1 tablet by mouth once daily. escitalopram oxalate (LEXAPRO) 10 mg tablet Take 1 tablet by mouth once daily. TRUE METRIX GLUCOSE METER as directed. montelukast (SINGULAIR) 10 mg tablet Take 10 mg by mouth daily at bedtime. losartan (COZAAR) 100 mg tablet Take 1 tablet by mouth once daily. Lancets lancets Test blood sugar(s) 1 times daily. Dx: Type 2 DM - Uncontrolled E11.65 Insulin: No blood sugar diagnostic (BLOOD GLUCOSE TEST) test strip Test blood sugar(s) 1 times daily. Dx: Type 2 DM - Uncontrolled E11.65 Insulin: No metFORMIN ER (GLUCOPHAGE XR) 500 mg 24 hr tablet Take 1 tablet by mouth daily with breakfast. ergocalciferol 50,000 unit capsule (VITAMIN D2, DRISDOL) Take 1 capsule by mouth one time a week. omeprazole (PRILOSEC) 20 mg capsule Take 1 capsule by mouth daily before breakfast. 1/2 hr before meal. fluticasone-vilanterol (BREO ELLIPTA) 200-25 mcg/dose inhaler Inhale 1 Inhalation as instructed once daily. Inhale one puff once daily. DO NOT CLICK OPEN UNTIL READY FOR DOSE albuterol HFA (VENTOLIN HFA) 90 mcg/actuation inhaler Inhale 2 Puffs as instructed every 4 hours as needed for wheezing/shortness of breath. nitroglycerin sublingual (NITROQUICK) 0.4 mg SL tablet Dissolve 1 tablet under the tongue as needed. FOR CHEST PAIN. IF NO RELIEF CALL 911 furosemide (LASIX) 20 mg tablet Take 1 tablet by mouth once daily. (Patient taking differently: Take 20 mg by mouth once daily. As needed. ) cetirizine (ALLERGY RELIEF, CETIRIZINE,) 10 mg tablet Take 10 mg by mouth. No current facility-administered medications for this visit. ALLERGIES: ALLERGIES Allergen Reactions Acetaminophen Hives Latex Rash Propoxyphene Hives Sulfa (Sulfonamide * Hives Adhesive Rash Budesonide Angioedema Darvocet A500 [Prop* Itching Darvocet-N 100 [Pro* Itching Dilaudid [Hydromorp* Other: See Comments Burning sensation over entire body Dust Unknown Had allergy testing done and was positive Dust Mites Unknown Tested positive at allergy testing Ees [Other] Formoterol Angioedema Heparin Analogues Hives, Swelling Keflex [Cephalexin] Swelling, Itching, Shortness of Breath Levaquin [Levofloxa* Itching Lisinopril Other: See Comments flushing Oxycodone Itching Oxycotin [Oxycodone] Hives, Swelling, Itching Oxytocin Hives Penicillin Anaphylaxis 4 years old Percocet [Oxycodone* Itching Polytrim [Polymyxin* Swelling, Itching Symbicort [Budesoni* Vomiting Tegretol [Carbamaze* Mental Status Change Vibramycin [Doxycyc* Hives, Itching Vicodin [Hydrocodon* Adhesive Tape (Elizabeth* Rash, Itching PAST MEDICAL HISTORY Diagnosis Date ASHD (arteriosclerotic heart disease) 10/14/2011 Bandemia 01/29/2018 Bile reflux gastritis 09/23/2018 Cervical disc disorder at C4-C5 level with radiculopathy Cocaine substance abuse (HCC) 2003 resolved 2004 Degenerative disc disease, cervical 2010 Depression 2010 Dysmetabolic syndrome X 01/21/2011 Erosive esophagitis 09/04/2014 Esophageal reflux Gastroesophageal reflux Essential hypertension, benign 09/09/2010 Fatty liver disease, nonalcoholic 09/03/2018 Fibrocystic breast changes, bilateral 01/28/2017 Hyperlipidemia LDL goal < 70 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 Lumbar radiculopathy Migraine headache 01/23/2012 Moderate persistent asthma without complication Nodule of right lung 03/02/2018 02/09/18: 5 mm to recheck in 1 yr Non morbid obesity due to excess calories 08/29/2016 Obstructive sleep apnea Osteoporosis 03/13/2011 Other cervical disc displacement at C4-C5 level Other intervertebral disc displacement, lumbar region Peptic ulcer, unspecified site, unspecified as acute or chronic, without mention of hemorrhage, perforation, or obstruction Peptic ulcer disease Spinal stenosis, cervical region Steatosis of liver 07/30/2018 Tobacco abuse 01/23/2012 Trigeminal neuralgia 12/29/2013 Type 2 diabetes mellitus (HCC) 07/15/2018 Vitamin D deficiency 03/19/2011 PAST SURGICAL HISTORY Procedure Laterality Date ANTERIOR INTERBODY FUSION, CERVICAL 1993 APPENDECTOMY 2005-6 CHOLECYSTECTOMY about 2005-7 sludge COLONOSCOPY FLX DX W/COLLJ SPEC WHEN PFRMD 04/30/2010 Dr. Rayshawn Shrestha COLONOSCOPY FLX DX W/COLLJ SPEC WHEN PFRMD 08/10/2013 Colonoscopy COLONOSCOPY FLX DX W/COLLJ SPEC WHEN PFRMD 08/03/2018 Colonoscopy COLONOSCOPY SCREENING 10/22/2021 ESOPHAGOGASTRODUODENOSCOPY TRANSORAL DIAGNOSTIC 08/10/2013 EGD ESOPHAGOGASTRODUODENOSCOPY TRANSORAL DIAGNOSTIC 08/03/2018 EGD LAPAR SPINAL ARTHRODESIS 2019 LAPS SURG ESOPG/GSTR FUNDOPLASTY 01/25/2010 LAP KAMILA LEFT HEART CATH,PERCUTANEOUS 12/17/2011 Cardiac cath, L heart, see scanned report Tonsilectomy TUBAL LIGATION, XR CERVICAL FUSION OR 1998 posterior fusion FAMILY HISTORY Problem Relation Age of Onset Heart Father 35 Cancer Father Cancer Mother Breast Cancer Paternal Grandmother Breast Cancer Paternal Aunt Cancer Maternal Uncle LUNG Heart Maternal Grandmother Social History Tobacco Use Smoking status: Current Every Day Smoker Packs/day: 0.75 Years: 45.00 Pack years: 33.75 Types: Cigarettes Smokeless tobacco: Never Used Tobacco comment: trying to quit Vaping Use Vaping Use: Never used Substance Use Topics Alcohol use: Yes Alcohol/week: 1.0 standard drink Types: 1 Glasses of Wine (5oz) per week Drug use: Yes Types: Marijuana Comment: none since 06/2005/cocaine abuse, MEDICAL MARIJUANA DUE TO PAIN Reviewed current medications, allergies, past medical history, surgical history, family history and social history today. REVIEW OF SYSTEMS All other reviewed and negative other than HPI. HEALTH MAINTENANCE: Discussed covid 19 safety and recommendations if patient should become ill. Reviewed health maintenance issues today and recommended the following in detail. URINE ALBUMIN:CREATININE RATIO Never done DILATED RETINAL EXAM Never done SPIROMETRY Never done SHINGRIX VACCINE(1 of 2) Never done LUNG CANCER SCREENING Never done COVID-19 VACCINE(2 - Booster for Lamin series) due on 04/18/2021 VITALS: There were no vitals taken for this visit. Last 4 Encounter Wt Readings: Date: Wt: 03/03/2022 93.9 kg (207 lb) 08/26/2021 92.1 kg (203 lb) 07/29/2021 91.6 kg (202 lb) 02/27/2021 91.6 kg (202 lb) PHYSICAL EXAMINATION: Patient is alert and oriented during visit. Answers appropriately. Breathing comfortably. Audible cough. Speaking in full sentences. ASSESSMENT/PLAN: 1. Bronchitis - ICD9: 490, ICD10: J40 (primary diagnosis) - Discussed risks and benefits of new medication with the patient. Advised them to call if any side effects or questions. Red flags for re-assessment reviewed with patient in detail. Call if symptoms worsen at all or if not better in one to two weeks Reviewed diagnosis and treatment options in detail. Questions were answered. Patient expressed understanding of treatment plan. - PREDNISONE 20 MG TABLET- can take steroids. Sugars are well controlled. - CLARITHROMYCIN 500 MG TABLET 2. Urinary incontinence, unspecified type - ICD9: 788.30, ICD10: R32 - CONSULT TO UROLOGY Michelle Tejada documented in this encounter [facility] 03-18-2022 Miscellaneous Notes TC to pt, appt scheduled with PCP for ongoing illness. Campos Muir LPN Britney called to reschedule her cardiology appointment for tomorrow. She is still quite sick with a significant cough. I assisted her in rescheduling this appointment with Dr. Nunez for April. Dr. Tejada's clinical staff: Britney said she has now had this cough since prior to her 03/03/22 visit to [facility]. She also said her dogs also all have barking coughs. I did double check, she said, Yes that her pet animals, dogs, all also have cough. Because she has had this cough for so long, and because of the unusual mention of her dogs also having this illness, can someone reach out to Britney to find out how the clinic can best assist her in resolving this long illness. Says she is quite fatigued from cough and being sick a long time but denies emergency. Estee Pena documented in this encounter [facility] 03-03-2022 Instructions Bobby Piña APRN.HAM - 03/03/2022 2:03 PM EDT How to Manage Common Symptoms Associated with COVID for Adults Fever- Fever is a temperature over 100.4 F and can occur when the body is fighting an infection. To help treat a fever: Drink plenty of fluids and stay well hydrated. Eat small amounts of easy to digest food. Rest. Your body needs rest to recover, but getting up and moving around the house frequently is a good idea. You should try to continue doing your normal daily activities (bathing, toileting, grooming, cooking), though you will probably feel tired, and need to rest often. Avoid any heavy activity or exercise, as this will increase your body temperature. Dress in light clothing and stay covered in a light sheet. Keep the room temperature cool. Take a slightly warm (not cold or cool) bath, or apply damp washcloths to the forehead and wrists. Cough- Cough is a common symptom associated with COVID and can be bothersome. To help treat a cough: Stay well hydrated. Try warm water or tea with lemon and/or honey to help soothe the cough. Use a humidifier to add moisture to the air. Try a product with menthol, like a cough drop or a rub for your chest such as Vicks, which can help reduce cough. Try cough drops. Avoid smoking and other strong odors or perfumes. Try breathing exercises to keep your lungs open and clear. Take a big deep breath through your nose and hold for 5 seconds before slowly releasing. Repeat frequently, while you are awake. Congestion- Runny nose or nasal congestion can occur with COVID. Treatment can help relieve symptoms: Try OTC nasal saline spray, or nasal saline rinse to relieve mucus congestion. Nasal strips can help keep nasal passages open, to increase airflow. Elevating your head with an extra pillow in bed can help reduce congestion. Using a humidifier can increase moisture in the air, and make breathing easier. Sore Throat- Another common symptom with COVID, can be managed at home by: Stay well hydrated. Gargle with salt water mix teaspoon salt with 1 cup of warm water and gargle. This helps to loosen mucus in the back of the throat and may reduce discomfort. Try ice chips, popsicles or lozenges to soothe the throat. Nausea/Vomiting/Diarrhea- These are common symptoms, and staying hydrated is most important. If you are nauseous or vomiting, start with small sips of water every 10-15 minutes and increase as tolerated. You can try sucking an ice cube too. If tolerating, you can try pedialyte or Gatorade, or flat sprite or tessa-renaldo. Start slowly and increase as you are able to. Instead of meals, try smaller, more frequent snacks. Try eating bland foods like crackers, toast, rice, and applesauce. Avoid spicy, greasy or fried foods and dairy containing foods. Even if you aren't feeling hungry due to lack of smell or taste, it is important to try to take in some food when you are able. After drinking and eating, rest in an upright position for up to two hours as needed to help decrease nauseous feelings. Try closing your eyes, avoid moving and watching TV. Avoid strong odors that can make you feel more nauseated. When to seek emergency medical attention Look for emergency warning signs for COVID-19. If having any of these symptoms, seek emergency medical care immediately: Trouble breathing Persistent pain or pressure in the chest New confusion Inability to wake or stay awake Bluish lips or face *This list is not all possible symptoms. Please call your medical provider for any other symptoms that are severe or concerning to you. documented in this encounter [facility] 03-03-2022 History of Presen t illness Narrative Subjective HPI Nontoxic-appearing female presents urgent care chief complaint cough headache body aches and chills. Duration of symptoms 2 days. Associated symptoms listed above. Patient states symptoms started abruptly. Was around individuals who's family member tested positive for COVID-19. Denies history of COVID-19. Denies any OTC medication use. Most predominant symptom is cough. Denies any high fevers pleuritic pain hemoptysis chest pain shortness of breath nausea abdominal pain rashes change in bowel or bladder habits. Past medical history prescription medication use allergies reviewed. 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/23/2018 Cervical disc disorder at C4-C5 level with radiculopathy Cocaine substance abuse (HCC) 2004 resolved 2004 Degenerative disc disease, cervical 2010 Depression 2010 Dysmetabolic syndrome X 01/21/2011 Erosive esophagitis 09/04/2014 Esophageal reflux Gastroesophageal reflux Essential hypertension, benign 09/09/2010 Fatty liver disease, nonalcoholic 09/03/2018 Fibrocystic breast changes, bilateral 01/28/2017 Hyperlipidemia LDL goal < 70 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 Lumbar radiculopathy Migraine headache 01/23/2012 Moderate persistent asthma without complication Nodule of right lung 03/02/2018 02/09/18: 5 mm to recheck in 1 yr Non morbid obesity due to excess calories 08/29/2016 Obstructive sleep apnea Osteoporosis 03/13/2011 Other cervical disc displacement at C4-C5 level Other intervertebral disc displacement, lumbar region Peptic ulcer, unspecified site, unspecified as acute or chronic, without mention of hemorrhage, perforation, or obstruction Peptic ulcer disease Spinal stenosis, cervical region Steatosis of liver 07/30/2018 Tobacco abuse 01/23/2012 Trigeminal neuralgia 12/29/2013 Type 2 diabetes mellitus (HCC) 07/15/2018 Vitamin D deficiency 03/19/2011 PAST SURGICAL HISTORY Procedure Laterality Date ANTERIOR INTERBODY FUSION, CERVICAL 1993 APPENDECTOMY 2004- CHOLECYSTECTOMY about 2005- sludge COLONOSCOPY FLX DX W/COLLJ SPEC WHEN PFRMD 04/30/2010 Dr. Rayshawn Shrestha COLONOSCOPY FLX DX W/COLLJ SPEC WHEN PFRMD 08/10/2013 Colonoscopy COLONOSCOPY FLX DX W/COLLJ SPEC WHEN PFRMD 08/03/2018 Colonoscopy COLONOSCOPY SCREENING 10/22/2021 ESOPHAGOGASTRODUODENOSCOPY TRANSORAL DIAGNOSTIC 08/10/2013 EGD ESOPHAGOGASTRODUODENOSCOPY TRANSORAL DIAGNOSTIC 08/03/2018 EGD LAPAR SPINAL ARTHRODESIS 2019 LAPS SURG ESOPG/GSTR FUNDOPLASTY 01/25/2010 LAP KAMILA LEFT HEART CATH,PERCUTANEOUS 12/17/2011 Cardiac cath, L heart, see scanned report Tonsilectomy TUBAL LIGATION, XR CERVICAL FUSION OR 1998 posterior fusion ALLERGIES Acetaminophen, Latex, Propoxyphene, Sulfa (Sulfonamide Antibiotics), Adhesive, Budesonide, Darvocet A500 [Propoxyphene N-Acetaminophen], Darvocet-N 100 [Propoxyphene N-Acetaminophen], Dilaudid [Hydromorphone Hcl], Dust, Dust Mites, Ees [Other], Formoterol, Heparin Analogues, Keflex [Cephalexin], Levaquin [Levofloxacin], Lisinopril, Oxycodone, Oxycotin [Oxycodone], Oxytocin, Penicillin, Percocet [Oxycodone-Acetaminophen], Polytrim [Polymyxin B Sulf-Trimethoprim], Symbicort [Budesonide-Formoterol], Tegretol [Carbamazepine], Vibramycin [Doxycycline Calcium], Vicodin [Hydrocodone-Acetaminophen], and Adhesive Tape (Rosins) MEDICATIONS zolpidem (AMBIEN) 5 mg tablet Take 1 tablet by mouth at bedtime as needed for up to 30 days. buPROPion HCL (WELLBUTRIN SR) 200 mg 12 hr tablet Take 1 tablet by mouth once daily. escitalopram oxalate (LEXAPRO) 10 mg tablet Take 1 tablet by mouth once daily. TRUE METRIX GLUCOSE METER as directed. montelukast (SINGULAIR) 10 mg tablet Take 10 mg by mouth daily at bedtime. losartan (COZAAR) 100 mg tablet Take 1 tablet by mouth once daily. Lancets lancets Test blood sugar(s) 1 times daily. Dx: Type 2 DM - Uncontrolled E11.65 Insulin: No blood sugar diagnostic (BLOOD GLUCOSE TEST) test strip Test blood sugar(s) 1 times daily. Dx: Type 2 DM - Uncontrolled E11.65 Insulin: No metFORMIN ER (GLUCOPHAGE XR) 500 mg 24 hr tablet Take 1 tablet by mouth daily with breakfast. ergocalciferol 50,000 unit capsule (VITAMIN D2, DRISDOL) Take 1 capsule by mouth one time a week. omeprazole (PRILOSEC) 20 mg capsule Take 1 capsule by mouth daily before breakfast. 1/2 hr before meal. fluticasone-vilanterol (BREO ELLIPTA) 200-25 mcg/dose inhaler Inhale 1 Inhalation as instructed once daily. Inhale one puff once daily. DO NOT CLICK OPEN UNTIL READY FOR DOSE albuterol HFA (VENTOLIN HFA) 90 mcg/actuation inhaler Inhale 2 Puffs as instructed every 4 hours as needed for wheezing/shortness of breath. nitroglycerin sublingual (NITROQUICK) 0.4 mg SL tablet Dissolve 1 tablet under the tongue as needed. FOR CHEST PAIN. IF NO RELIEF CALL 911 furosemide (LASIX) 20 mg tablet Take 1 tablet by mouth once daily. cetirizine (ALLERGY RELIEF, CETIRIZINE,) 10 mg tablet Take 10 mg by mouth. FAMILY HISTORY Problem Relation Age of Onset Heart Father 35 Cancer Father Cancer Mother Breast Cancer Paternal Grandmother Breast Cancer Paternal Aunt Cancer Maternal Uncle LUNG Heart Maternal Grandmother Social History Tobacco Use Smoking status: Current Every Day Smoker Packs/day: 0.75 Years: 45.00 Pack years: 33.75 Types: Cigarettes Smokeless tobacco: Never Used Tobacco comment: trying to quit Vaping Use Vaping Use: Never used Substance Use Topics Alcohol use: Yes Alcohol/week: 1.0 standard drink Types: 1 Glasses of Wine (5oz) per week Drug use: Yes Types: Marijuana Comment: none since 06/2005/cocaine abuse, MEDICAL MARIJUANA DUE TO PAIN BP 128/74 Pulse 106 Temp 37.4 C (99.4 F) Resp 18 Wt 93.9 kg (207 lb) SpO2 95% BMI 38.73 kg/m Hr 92 Review of Systems Constitutional: Positive for chills and malaise/fatigue. Negative for fever. HENT: Positive for congestion and sore throat. Negative for ear discharge, ear pain and sinus pain. Eyes: Negative for blurred vision, pain, discharge and redness. Respiratory: Positive for cough. Negative for hemoptysis, sputum production, shortness of breath, wheezing and stridor. Cardiovascular: Negative for chest pain. Gastrointestinal: Negative for abdominal pain, diarrhea, nausea and vomiting. Musculoskeletal: Positive for myalgias. Skin: Negative for itching and rash. Neurological: Positive for headaches. Negative for dizziness. Objective Physical Exam Constitutional: General: She is not in acute distress. Appearance: She is not diaphoretic. HENT: Head: Normocephalic. Nose: Congestion present. Mouth/Throat: Mouth: Mucous membranes are moist. Pharynx: Oropharynx is clear. No oropharyngeal exudate or posterior oropharyngeal erythema. Eyes: Conjunctiva/sclera: Conjunctivae normal. Pupils: Pupils are equal, round, and reactive to light. Cardiovascular: Rate and Rhythm: Normal rate and regular rhythm. Heart sounds: Normal heart sounds. Pulmonary: Effort: Pulmonary effort is normal. No tachypnea, accessory muscle usage or respiratory distress. Breath sounds: No stridor. Wheezing present. No rhonchi or rales. Chest: Chest wall: No tenderness. Abdominal: Palpations: Abdomen is soft. Tenderness: There is no abdominal tenderness. Musculoskeletal: Cervical back: Normal range of motion and neck supple. No rigidity or tenderness. Lymphadenopathy: Cervical: No cervical adenopathy. Skin: General: Skin is warm and dry. Neurological: Mental Status: She is alert and oriented to person, place, and time. ASSESSMENT/PLAN: 1. Suspected COVID-19 virus infection - ICD9: V01.79, ICD10: Z20.822 - COVID WITH FLUA+B, ROUTINE - XR CHEST 2V FRONTAL/LAT IMPRESSION: No acute radiographic abnormality. Chest x-ray negative. Positive sick exposure. Suspicious for viral etiology. Patient will be tested for COVID-19 influenza. Nubisio. Red flags for prompt reevaluation discussed. Patient was educated on supportive therapies. Patient will follow up with primary care provider as needed. Patient was instructed to immediately proceed to emergency room for any new, worsening, or symptoms lasting longer than anticipated. The patient's clinical presentation is otherwise unremarkable at this time. Based on exam and clinical finding, the patient is stable for discharge. Plan of care was discussed with patient. Patient verbalizes understanding and agrees to plan of care. This note was generated using [employer] software. It may contain errors in wording, punctuation, or spelling. Bobby Piña APRN.HAM documented in this encounter [facility] 03-03-2022 Miscellaneous Notes Protocol recommends see provider in 4 hours. Patient states she prefers to go to for evaluation since her pcp is out today. Reason for Disposition Wheezing is present Answer Assessment - Initial Assessment Questions 1. ONSET: 2 days ago. 2. SEVERITY: Constant. If breathes in too deep she coughs. Cough causes her to be incontinent. Cough causes SIMPSON. 3. SPUTUM: Yellow. Sometimes white. 4. HEMOPTYSIS No blood, but did vomit a couple times from coughing so hard. 5. DIFFICULTY BREATHING: SOB on exertion. Wheeze at night. 6. FEVER: No. 7. CARDIAC HISTORY No. Takes nitro for possible previous TIA. Circulation issues. 8. LUNG HISTORY Asthma. 9. PE RISK FACTORS: No 10. OTHER SYMPTOMS: Wheezing at night. No runny nose. Chest is sore from coughing. Sinus drainage. SOB on exertion. No sore throat. No earache. No exposure to covid- friends daughter has covid, and they played cards together last week. Has home test and will test herself. Pain in lower ribs. 11. : No 12. TRAVEL: No. Protocols used: COUGH - ACUTE [id number] documented in this encounter [facility] 02-27-2022 Miscellaneous Notes Please notify the patient that Ambien has been sent to [email or web address]. Medication sent to [facility] per patient request. Patient called in stating her Ambien was ordered and sent to [facility] and needs to be sent to [facility] in [place]. documented in this encounter [facility] 02-25-2022 History of Presen t illness Narrative Images from the original note were not included. PSYC FOLLOW UP - PSYCHIATRIC PROGRESS NOTE DIAGNOSIS: 1. Insomnia, unspecified type 2. Moderate episode of recurrent major depressive disorder 3. RODERICK 4. Chronic pain syndrome GAF: -60-51 Moderate symptoms or moderate difficulty in social, occupational or school functioning. TREATMENT PLAN: 1. Discontinue Elavil due to lack of efficacy. 2. Start Ambien to help with her sleep difficulties. 3. Continue Wellbutrin and Lexapro at the same dose. 4. Consider the addition of Cymbalta in place of Lexapro if patient continues to struggle with her mood and anxiety as Cymbalta may help with her pain as well. 5. Consider accupunture for pain management. 6. Follow up in 2 weeks. Medication Update: 1. Stop Elavil 2. Ambien 5 mg - take 1 tablet at bedtime as needed 3. Continue Wellbutrin and Lexapro at the same dose. The effects and side effects of all the medications were discussed in detail with the patient. PDMP report was reviewed and found to be appropriate without any signs of misuse or diversion. Patient is in agreement with the treatment plan. She is aware to reach out with any questions, concerns, or worsening of symptoms prior to the next appointment. CC: I am not sleeping well at night or waking up feeling very tired in the morning . With the patient consent, visit was performed virtually. HPI: Britney Nicole is a 61 year old Female with a history of RODERICK, MDD, Insomnia, and Chronic pain syndrome presenting today for follow-up. Date of last visit: 02/17/2022 Plan from last visit: 1. Add Elavil to help with her mood and sleep difficulties. 2. Utilize a lower dose of Seroquel to see if that helps prevents the morning grogginess and fatigue related side effects. 3. Continue Wellbutrin and Lexapro at the same dose. 4. Follow up with this provider in one week. 5. Discussed the mental health risks associated with medical marijuana use and encouraged the patient to explore other pain management options. Dr. Dunia Guerra saw this patient along with this provider for this virtual appointment. Today Britney shares that the Elavil did not helped with her sleep and made me feel worse . Patient returned to utilizing Seroquel for sleep. Feels that she is more groggy and fatigued in the morning when she has to utilize Seroquel for her sleep difficulties. Also feels that her pain is more at night when she takes the Seroquel. She shares her history of cocaine use. She has been sober for 17 years now. She reported more benefit from the AA program than the NA program. Also discussed her concerns with her weight gain due to lack of activity. Attributes her lack of activity to her pain and not her current medications. She enjoys spending time with her 4 grand daughters. Uses medical marijuana in edible form for chronic pain concerns. Only uses it at night as she does not like how it makes her feel. Still continues to struggle with pain. Stopped morphine for pain management 2 months ago. She has been taking Advil during the day and at night for pain. Remembers taking Cymbalta in the past and is willing to try that again. Lexapro has been helpful for her anxiety and mood. Feels that Wellbutrin has helped with her mood also. Continues to struggle with sleep difficulties which impacts her energy level, mood, anxiety, and overall functioning during the day. Dr. Guerra suggested trying acupuncture for pain as patient is concerned about the effects of medications on her physical health. Patient had also experienced benefit in the past from the use of Ambien and requested to try that again. Interval Progress: Same Risks and benefits of the medication, including any black box warnings, were discussed with the patient. Social History: See HPI PATIENT DATA: Generalized Anxiety Disorder Scale (RODERICK-7) RODERICK - 7 SCORES 12/27/2021 02/14/2022 02/25/2022 RODERICK-7 Score 6 6 7 (0-4) minimal anxiety, (5-9) mild anxiety, (10-14) moderate anxiety, (15-21) severe anxiety Patient Health Questionnaire (PHQ-9) PHQ-9 12/27/2021 02/14/2022 02/25/2022 Score 8 8 13 (0-4) minimal depression, (5-9) mild depression, (10-14) moderate depression, (15-19) moderately severe depression, (20-27) severe depression ROS: See HPI VITAL SIGNS: None obtained due to virtual visit. BP Temp Pulse Resp SpO2 MENTAL STATUS EXAMINATION: Appearance: Appropriately groomed, appears stated age Behavior: Appropriately engaged Psychomotor: No psychomotor agitation Cognition Level of Consciousness: Awake and alert. No fluctuation in wakefulness. Orientation: Grossly oriented Memory: Intact Attention/Concentration: Good Fund of Knowledge: Able to demonstrate an awareness of current events. Mood: Sad Affect: Congruent to mood Speech/Language: Appropriate tone, prosody, laury, phonetics, and syntax Thought Form: Goal-directed. No loosening of associations. Thought Content: No delusions noted or endorsed. Perceptual Disturbances: Did not appear to respond to auditory stimuli. Safety: Suicidal Ideations: No suicidal ideation, intent or plan. Homicidal Ideations: No homicidal ideation, intent or plan. Insight: Appropriate Judgment: Appropriate I spent a total of 38 minutes on the date of the service which included preparing to see the patient, [id number] patient care, completing clinical documentation, and counseling and educating the patient/family/caregiver, ordering medications/labs. Ciara Price APRN.CNP February 25, 2022 3:03 PM documented in this encounter [facility] 02-17-2022 Instructions Ciara Price APRN.CNP - 02/17/2022 6:32 PM EDT Justice Kim, It was good to talk with you today. Below is a summary of the plan that we discussed during your appointment for reference. Of course, if you have any questions or concerns do not hesitate to reach out to me via a message or call. Best, Ciara Price APRN.CNP PLAN AND FOLLOW UP: YOU SHOULD SEEK IMMEDIATE MEDICAL ATTENTION AT THE NEAREST EMERGENCY DEPARTMENT OR BY CALLING 911, IF ANY OF THE FOLLOWING OCCURS: - New or worsening thoughts of harming yourself (suicidal thoughts) or others (homicidal thoughts) - Not feeling safe at home or worrying about your ability to remain safe at home If you are having thoughts of harming yourself or others, then you can: - Call the National Suicide Hotline at 7-561-XTFLBQX ( ) or 7-653-288-TALK (8957) - Text 8LPZC to 037968 Medication Update: 1. Amitriptyline (Elavil) 50 mg - take 1/2 tablet at bedtime for 5 days, then take 1 tablet at bedtime after that. 2. Seroquel 50 mg - take 1/2 to 1 tablet at bedtime as needed. 3. Continue Wellbutrin and Lexapro at the same dose. Next appointment: February 25 at 3:00 pm Virtual -- You may call the department appointment line at [phone] to schedule your appointment. -- Please call my nurse Priscilla at [phone] or send me a message in [employer] with any questions or concerns between appointments. documented in this encounter [facility] 02-17-2022 History of Presen t illness Narrative Images from the original note were not included. PSYC FOLLOW UP - PSYCHIATRIC PROGRESS NOTE DIAGNOSIS: 1. Insomnia, NOS 2. MDD, recurrent, moderate 3. RODERICK 4. Medical Marijuana use GAF: -60-51 Moderate symptoms or moderate difficulty in social, occupational or school functioning. TREATMENT PLAN: 1. Add Elavil to help with her mood and sleep difficulties. 2. Utilize a lower dose of Seroquel to see if that helps prevents the morning grogginess and fatigue related side effects. 3. Continue Wellbutrin and Lexapro at the same dose. 4. Follow up with this provider in one week. 5. Discussed the mental health risks associated with medical marijuana use and encouraged the patient to explore other pain management options. Medication Update: 1. Amitriptyline (Elavil) 50 mg - take 1/2 tablet at bedtime for 5 days, then take 1 tablet at bedtime after that. 2. Seroquel 50 mg - take 1/2 to 1 tablet at bedtime as needed. 3. Continue Wellbutrin and Lexapro at the same dose. The effects and side effects of all the medications were reviewed with the patient in detail. She is in agreement with the treatment plan. Patient is aware to reach out with any questions, concerns, or worsening of symptoms prior to the next appointment. CC: Depression, anxiety, and insomnia With the patient consent, visit was performed virtually. HPI: Britney Nicole is a 61 year old Female with a history of RODERICK, MDD, and Insomnia presenting today for follow-up. Date of last visit: 12/27/2021 Plan from last visit: 1. Increase Wellbutrin to address her depression symptoms. 2. Continue Seroquel and Lexapro at the same dose. Today Britney shares that she has been okay. She has been taking Lexapro again and has noticed improvement in her mood and anxiety. Was off the medication for a short time due to miscommunication with the pharmacy. She has been taking the 50 mg dose of Seroquel. Sometimes she still has trouble staying asleep. She feels groggy and tired in the morning. Concerned about some feelings of fatigue during the day. She reports sleeping best when she was on Ambien in the past. She uses medical marijuana only as needed mostly to manage her pain. She does not smoke medical marijuana just uses edibles to manage her pain as needed. She may consider stopping marijuana but is concerned about restarting morphine due to issues with physical health. We discussed the psychiatric risks associated with marijuana use even if its for pain. Patient was engaged in the discussion and verbalized understanding. She has taken Elavil in the past but at a very low dose. She denies any side effects or reactions to the low dose of Elavil. She just remembers that at the low dose it was not helpful for her sleep. She is in agreement to try the Elavil again at a higher dose. Interval Progress: Slightly improved Risks and benefits of the medication, including any black box warnings, were discussed with the patient. Social History: No change PATIENT DATA: Generalized Anxiety Disorder Scale (RODERICK-7) RODERICK - 7 SCORES 10/14/2021 12/27/2021 02/14/2022 RODERICK-7 Score 7 6 6 (0-4) minimal anxiety, (5-9) mild anxiety, (10-14) moderate anxiety, (15-21) severe anxiety Patient Health Questionnaire (PHQ-9) PHQ-9 10/14/2021 12/27/2021 02/14/2022 Score 13 8 8 (0-4) minimal depression, (5-9) mild depression, (10-14) moderate depression, (15-19) moderately severe depression, (20-27) severe depression ROS: Patient struggles with chronic pain issues. MENTAL STATUS EXAMINATION: Appearance: Appropriately groomed, appears stated age Behavior: Appropriately engaged Psychomotor: No psychomotor agitation Cognition Level of Consciousness: Awake and alert. No fluctuation in wakefulness. Orientation: Grossly oriented Memory: Intact Attention/Concentration: Good Fund of Knowledge: Able to demonstrate an awareness of current events. Mood: Depressed, Anxious Affect: Full range Speech/Language: Appropriate tone, prosody, laury, phonetics, and syntax Thought Form: Goal-directed. No loosening of associations. Thought Content: No delusions noted or endorsed. Perceptual Disturbances: Did not appear to respond to auditory stimuli. Safety: Suicidal Ideations: No suicidal ideation, intent or plan. Homicidal Ideations: No homicidal ideation, intent or plan. Insight: Appropriate Judgment: Appropriate I spent a total of 38 minutes on the date of the service which included preparing to see the patient, [id number] patient care, completing clinical documentation, and counseling and educating the patient/family/caregiver, ordering medications/labs. 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/1510/28/2019 Sense of smell altered 06/27/2016 9 Nonintractable headache 06/27/2016 09/12/20 19 Grief 05/13/2015 09/12/2019 Trigeminal neuralgia of right side of face 05/0309/12/2019 Spontaneous ecchymoses 12/15/2014 9 Erosive esophagitis 09/04/2014 10/28/2019 Flushing 06/02/2013 09/03/2018 Chest pain 10/31/2011 09/04/2014 Overview: atypical cardiac pain, with recent cath (1 year ago showing unremarkable CAD and negative stress test 2 weeks ago) --ruled out for acute cardiac cause overnight --Aspirin, statin Cocaine substance abuse 09/04/20 14 documented as of this encounter (statuses as of 02/28/2022) [facility] History of Past illness Narrative* Problem Noted Date Resolved Date Abdominal pain 07/28/2018 09/12/2019 Overview: Added automatically from request for surgery [id number] RUQ pain 07/28/2018 09/12/2019 Overview: Added automatically from request for surgery [id number] Orthopnea 07/08/2018 09/12/2019 alf (current) use of opiate analgesic 01/1510/28/2019 Sense of smell altered 06/27/2016 9 Nonintractable headache 06/27/2016 09/12/20 19 Grief 05/13/2015 09/12/2019 Trigeminal neuralgia of right side of face 05/0309/12/2019 Spontaneous ecchymoses 12/15/2014 9 Erosive esophagitis 09/04/2014 10/28/2019 Flushing 06/02/2013 09/03/2018 Chest pain 10/31/2011 09/04/2014 Overview: atypical cardiac pain, with recent cath (1 year ago showing unremarkable CAD and negative stress test 2 weeks ago) --ruled out for acute cardiac cause overnight --Aspirin, statin Cocaine substance abuse 09/04/20 14 documented as of this encounter (statuses as of 03/03/2022) [facility] History of Past illness Narrative* Problem Noted Date Resolved Date Abdominal pain 07/28/2018 09/12/2019 Overview: Added automatically from request for surgery [id number] RUQ pain 07/28/2018 09/12/2019 Overview: Added automatically from request for surgery [id number] Orthopnea 07/08/2018 09/12/2019 alf (current) use of opiate analgesic 01/1510/28/2019 Sense of smell altered 06/27/2016 9 Nonintractable headache 06/27/2016 09/12/20 19 Grief 05/13/2015 09/12/2019 Trigeminal neuralgia of right side of face 05/0309/12/2019 Spontaneous ecchymoses 12/15/2014 9 Erosive esophagitis 09/04/2014 10/28/2019 Flushing 06/02/2013 09/03/2018 Chest pain 10/31/2011 09/04/2014 Overview: atypical cardiac pain, with recent cath (1 year ago showing unremarkable CAD and negative stress test 2 weeks ago) --ruled out for acute cardiac cause overnight --Aspirin, statin Cocaine substance abuse 09/04/20 14 documented as of this encounter (statuses as of 03/03/2022) [facility] History of Past illness Narrative* Problem Noted Date Resolved Date Abdominal pain 07/28/2018 09/12/2019 Overview: Added automatically from request for surgery [id number] RUQ pain 07/28/2018 09/12/2019 Overview: Added automatically from request for surgery [id number] Orthopnea 07/08/2018 09/12/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/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/28/2019 Sense of smell altered 06/27/2016 9 Nonintractable headache 06/27/2016 09/12/20 19 Grief 05/13/2015 09/12/2019 Trigeminal neuralgia of right side of face 05/0309/12/2019 Spontaneous ecchymoses 12/15/2014 9 Erosive esophagitis 09/04/2014 10/28/2019 [place] 06/02/2013 09/03/2018 Chest pain 10/31/2011 09/04/2014 Overview: atypical cardiac pain, with recent cath (1 year ago showing unremarkable CAD and negative stress test 2 weeks ago) --ruled out for acute cardiac cause overnight --Aspirin, statin Cocaine substance abuse 09/04/20 14 documented as of this encounter (statuses as of 03/09/2022) [facility]09-12-2018 History of Past illness Narrative* Problem Noted Date Resolved Date Abdominal pain 07/28/2018 09/12/2019 Overview: Added automatically from request for surgery [id number] RUQ pain 07/28/2018 09/12/2019 Overview: Added automatically from request for surgery [id number] Orthopnea 07/08/2018 09/12/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/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/28/2019 Sense of smell altered 06/27/2016 9 Nonintractable headache 06/27/2016 09/12/20 19 Grief 05/13/2015 09/12/2019 Trigeminal neuralgia of right side of face 05/0309/12/2019 Spontaneous ecchymoses 12/15/2014 9 Erosive esophagitis 09/04/2014 10/28/2019 [place] 06/02/2013 09/03/2018 Chest pain 10/31/2011 09/04/2014 Overview: atypical cardiac pain, with recent cath (1 year ago showing unremarkable CAD and negative stress test 2 weeks ago) --ruled out for acute cardiac cause overnight --Aspirin, statin Cocaine substance abuse 09/04/20 14 documented as of this encounter (statuses as of 03/18/2022) [facility]2018 History of Past illness Narrative* Problem Noted Date Resolved Date Abdominal pain 07/28/2018 09/12/2019 Overview: Added automatically from request for surgery [id number] RUQ pain 07/28/2018 09/12/2019 Overview: Added automatically from request for surgery [id number] Orthopnea 07/08/2018 09/12/2019 alf (current) use of opiate analgesic 01/1510/28/2019 Sense of smell altered 06/27/2016 9 Nonintractable headache 06/27/2016 09/12/20 19 Grief 05/13/2015 09/12/2019 Trigeminal neuralgia of right side of face 05/0309/12/2019 Spontaneous ecchymoses 12/15/2014 9 Erosive esophagitis 09/04/2014 10/28/2019 [place] 06/02/2013 09/03/2018 Chest pain 10/31/2011 09/04/2014 Overview: atypical cardiac pain, with recent cath (1 year ago showing unremarkable CAD and negative stress test 2 weeks ago) --ruled out for acute cardiac cause overnight --Aspirin, statin Cocaine substance abuse 09/04/20 14 documented as of this encounter (statuses as of 03/19/2022) [facility] History of Past illness Narrative* Problem Noted Date Resolved Date Abdominal pain 07/28/2018 09/12/2019 Overview: Added automatically from request for surgery [id number] RUQ pain 07/28/2018 09/12/2019 Overview: Added automatically from request for surgery [id number] Orthopnea 07/08/2018 09/12/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/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/28/2019 Sense of smell altered 06/27/2016 9 Nonintractable headache 06/27/2016 09/12/20 19 Grief 05/13/2015 09/12/2019 Trigeminal neuralgia of right side of face 05/0309/12/2019 Spontaneous ecchymoses 12/15/2014 9 Erosive esophagitis 09/04/2014 10/28/2019 [place] 06/02/2013 09/03/2018 Chest pain 10/31/2011 09/04/2014 Overview: atypical cardiac pain, with recent cath (1 year ago showing unremarkable CAD and negative stress test 2 weeks ago) --ruled out for acute cardiac cause overnight --Aspirin, statin Cocaine substance abuse 09/04/20 14 documented as of this encounter (statuses as of 03/19/2022) [facility] History of Past illness Narrative* Problem Noted Date Resolved Date Abdominal pain 07/28/2018 09/12/2019 Overview: Added automatically from request for surgery [id number] RUQ pain 07/28/2018 09/12/2019 Overview: Added automatically from request for surgery [id number] Orthopnea 07/08/2018 09/12/2019 alf (current) use of opiate analgesic 01/1510/28/2019 Sense of smell altered 06/27/2016 9 Nonintractable headache 06/27/2016 09/12/20 19 Grief 05/13/2015 09/12/2019 Trigeminal neuralgia of right side of face 05/0309/12/2019 Spontaneous ecchymoses 12/15/2014 9 Erosive esophagitis 09/04/2014 10/28/2019 [place] 06/02/2013 09/03/2018 Chest pain 10/31/2011 09/04/2014 Overview: atypical cardiac pain, with recent cath (1 year ago showing unremarkable CAD and negative stress test 2 weeks ago) --ruled out for acute cardiac cause overnight --Aspirin, statin Cocaine substance abuse 09/04/20 14 documented as of this encounter (statuses as of 03/25/2022) [facility] History of Past illness Narrative* Problem Noted Date Resolved Date Abdominal pain 07/28/2018 09/12/2019 Overview: Added automatically from request for surgery [id number] RUQ pain 07/28/2018 09/12/2019 Overview: Added automatically from request for surgery [id number] Orthopnea 07/08/2018 09/12/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/1510/28/2019 Sense of smell altered 06/27/2016 9 Nonintractable headache 06/27/2016 09/12/20 19 Grief 05/13/2015 09/12/2019 Trigeminal neuralgia of right side of face 05/0309/12/2019 Spontaneous ecchymoses 12/15/2014 9 Erosive esophagitis 09/04/2014 10/28/2019 [place] 06/02/2013 09/03/2018 Chest pain 10/31/2011 09/04/2014 Overview: atypical cardiac pain, with recent cath (1 year ago showing unremarkable CAD and negative stress test 2 weeks ago) --ruled out for acute cardiac cause overnight --Aspirin, statin Cocaine substance abuse 09/04/20 14 documented as of this encounter (statuses as of 04/01/2022) [facility]2018 History of Past illness Narrative* Problem Noted Date Resolved Date Abdominal pain 07/28/2018 09/12/2019 Overview: Added automatically from request for surgery [id number] RUQ pain 07/28/2018 09/12/2019 Overview: Added automatically from request for surgery [id number] Orthopnea 07/08/2018 09/12/2019 alf (current) use of opiate analgesic 01/1510/28/2019 Sense of smell altered 06/27/2016 9 Nonintractable headache 06/27/2016 09/12/20 19 Grief 05/13/2015 09/12/2019 Trigeminal neuralgia of right side of face 05/0309/12/2019 Spontaneous ecchymoses 12/15/2014 9 Erosive esophagitis 09/04/2014 10/28/2019 [place] 06/02/2013 09/03/2018 Chest pain 10/31/2011 09/04/2014 Overview: atypical cardiac pain, with recent cath (1 year ago showing unremarkable CAD and negative stress test 2 weeks ago) --ruled out for acute cardiac cause overnight --Aspirin, statin Cocaine substance abuse 09/04/20 14 documented as of this encounter (statuses as of 04/02/2022) [facility]2018 History of Past illness Narrative* Problem Noted Date Resolved Date Abdominal pain 07/28/2018 09/12/2019 Overview: Added automatically from request for surgery [id number] RUQ pain 07/28/2018 09/12/2019 Overview: Added automatically from request for surgery [id number] Orthopnea 07/08/2018 09/12/2019 alf (current) use of opiate analgesic 01/1510/28/2019 Sense of smell altered 06/27/2016 9 Nonintractable headache 06/27/2016 09/12/20 19 Grief 05/13/2015 09/12/2019 Trigeminal neuralgia of right side of face 05/0309/12/2019 Spontaneous ecchymoses 12/15/2014 9 Erosive esophagitis 09/04/2014 10/28/2019 [place] 06/02/2013 09/03/2018 Chest pain 10/31/2011 09/04/2014 Overview: atypical cardiac pain, with recent cath (1 year ago showing unremarkable CAD and negative stress test 2 weeks ago) --ruled out for acute cardiac cause overnight --Aspirin, statin Cocaine substance abuse 09/04/20 14 documented as of this encounter (statuses as of 04/03/2022) [facility] History of Past illness Narrative* Problem Noted Date Resolved Date Abdominal pain 07/28/2018 09/12/2019 Overview: Added automatically from request for surgery [id number] RUQ pain 07/28/2018 09/12/2019 Overview: Added automatically from request for surgery [id number] 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 07/08/2018 09/12/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/1510/28/2019 Sense of smell altered 06/27/2016 9 Nonintractable headache 06/27/2016 09/12/20 19 Grief 05/13/2015 09/12/2019 Trigeminal neuralgia of right side of face 05/0309/12/2019 Spontaneous ecchymoses 12/15/2014 9 Erosive esophagitis 09/04/2014 10/28/2019 [place] 06/02/2013 09/03/2018 Chest pain 10/31/2011 09/04/2014 Overview: atypical cardiac pain, with recent cath (1 year ago showing unremarkable CAD and negative stress test 2 weeks ago) --ruled out for acute cardiac cause overnight --Aspirin, statin Cocaine substance abuse 09/04/20 14 documented as of this encounter (statuses as of 04/16/2022) [facility] History of Past illness Narrative* Problem Noted Date Resolved Date Abdominal pain 07/28/2018 09/12/2019 Overview: Added automatically from request for surgery [id number] RUQ pain 07/28/2018 09/12/2019 Overview: Added automatically from request for surgery [id number] Orthopnea 07/08/2018 09/12/2019 alf (current) use of opiate analgesic 01/1510/28/2019 Sense of smell altered 06/27/2016 9 Nonintractable headache 06/27/2016 09/12/20 19 Grief 05/13/2015 09/12/2019 Trigeminal neuralgia of right side of face 05/0309/12/2019 Spontaneous ecchymoses 12/15/2014 9 Erosive esophagitis 09/04/2014 10/28/2019 [place] 06/02/2013 09/03/2018 Chest pain 10/31/2011 09/04/2014 Overview: atypical cardiac pain, with recent cath (1 year ago showing unremarkable CAD and negative stress test 2 weeks ago) --ruled out for acute cardiac cause overnight --Aspirin, statin Cocaine substance abuse 09/04/20 14 documented as of this encounter (statuses as of 11/24/2022) [facility]09[facility]2018 History of Past illness Narrative* Problem Noted Date Diagnosed Date Resolved Date Abdominal pain 07/28/2018 09/12/2019 Overview: Added automatically from request for surgery [id number] RUQ pain 07/28/2018 09/12/2019 Overview: Added automatically from request for surgery [id number] Orthopnea 07/08/2018 09/12/2019 alf (current) use of opiate analgesic 02/10/2017 10/28/2019 Sense of smell altered 06/27/201609/12 Nonintractable headache 06/27/201608/17 Grief 05/13/2015 09/12/2019 Trigeminal neuralgia of right side of face 05/03/2015 09/12/2019 Spontaneous ecchymoses 12/15/201409/12 Erosive esophagitis 09/04/2014 10/28/20 19 [place] 06/02/2013 09/03/2018 Chest pain 10/31/2011 09/04/2014 Overview: atypical cardiac pain, with recent cath (1 year ago showing unremarkable CAD and negative stress test 2 weeks ago) --ruled out for acute cardiac cause overnight --Aspirin, statin Cocaine substance abuse 08/17 documented as of this encounter (statuses as of 11/09/2023) [facility] note* Diagnosis Insomnia, unspecified type- Primary Moderate episode of recurrent major depressive disorder (HCC) RODERICK (generalized anxiety disorder) Generalized anxiety disorder Medical marijuana use Encounter for long-term (current) use of other medications documented in this encounter [facility] note* Diagnosis Insomnia, unspecified type documented in this encounter [facility] note* Diagnosis Suspected COVID-19 virus infection- Primary documented in this encounter [facility] note* Diagnosis Insomnia, unspecified type- Primary Moderate episode of recurrent major depressive disorder (HCC) RODERICK (generalized anxiety disorder) Generalized anxiety disorder Chronic pain syndrome documented in this encounter [facility] note* Diagnosis Bronchitis- Primary Bronchitis, not specified as acute or chronic Urinary incontinence, unspecified type documented in this encounter [facility] note* Diagnosis Insomnia, unspecified type- Primary Moderate episode of recurrent major depressive disorder (HCC) RODERICK (generalized anxiety disorder) Generalized anxiety disorder documented in this encounter [facility] note* Diagnosis Cough- Primary documented in this encounter [facility] note* Diagnosis Insomnia, unspecified type- Primary Moderate episode of recurrent major depressive disorder (HCC) RODERICK (generalized anxiety disorder) Generalized anxiety disorder Chronic pain syndrome Medical marijuana use Encounter for long-term (current) use of other medications documented in this encounter [facility] note* Diagnosis Encounter for screening mammogram for breast cancer documented in this encounter [facility] note* Diagnosis Encounter for screening mammogram for breast cancer documented in this encounter [facility] for referral (narrative)* Diagnostic Procedure Only (Routine) - Pending Review Specialty Diagnoses / Procedures Referred By Jerrell wesley Referred To Contact [facility] Diagnoses Encounter for screening mammogram for breast cancer Procedures MONTRELL SCREENING SCREENING MAMMOGRAPHY BI 2-VIEW BREAST INC CAD Michelle Tejada MD [address] [place] [address] [facility] [address] [place] [address] Referral ID Status Reason Start Date Expiration Date Visits Requested Visits Authorized [id number] Pending Review Auto-Generat ed Referral 11/19/2022 12/19/2023 [facility] Diagnostic Procedure Only (Routine) - Pending Review Specialty Diagnoses / Procedures Referred By Contjose t Referred To Contact [facility] Diagnoses Encounter for screening mammogram for breast cancer Procedures MONTRELL SCREENING SCREENING MAMMOGRAPHY BI 2-VIEW BREAST INC CAD Michelle Tejada MD [address] [place] [address] [facility] [address] [place] [address] Referral ID Status Reason Start Date Expiration Date Visits Requested Visits Authorized [id number] Pending Review Auto-Generat ed Referral 3 12/03/2024 1 1 [facility] Summary Purpose Family History No Family History Records FoundNo Family History Records FoundNo Family History Records FoundNo Family History Records FoundNo Family History Records Found Advance Directives No Advanced Directives Records FoundDocuments on File Type Date Recorded 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 Advance Directive(s) 10/22/2021 6:57 AM Advance Directive(s) 08/27/2018 8:13 AM Advance Directive(s) 08/03/2018 12:13 PM Advance Directive(s) 01/25/2018 7:35 AM Advance Directive(s) 09/29/2017 11:44 AM Advance Directive(s) 08/06/2017 3:25 AM Advance Directive(s) 08/03/2017 4:11 PM Documents on File Type Date Recorded 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 Advance Directive(s) 10/22/2021 6:57 AM Advance Directive(s) 08/27/2018 8:13 AM Advance Directive(s) 08/03/2018 12:13 PM Advance Directive(s) 01/25/2018 7:35 AM Advance Directive(s) 09/29/2017 11:44 AM Advance Directive(s) 08/06/2017 3:25 AM Advance Directive(s) 08/03/2017 4:11 PM Procedure Findings Note HNO ID: [id number]: Charisma WebsterService: RadiologyAuthor Type: PhysicianType: Brief Op NoteFiled: 08/27/2018 10:32 AMNote Text:BRIEF OPERATIVE / PROCEDURE NOTELOG ID: [id number]/PROCEDURE DATE: 08/27/2018INCISION/PROCEDURE START TIME: 10:04 AMINCISION CLOSE/PROCEDURE END TIME: 10:08 AMSURGEON(S)/PROCEDURALIST(S) AND FISH CLEANER(S):Surgeon(s) and Role: * Yakelin Webster - PrimaryNo Additional StaffSURGERY/PROCEDURE(S): CT guided liver biopsyANESTHESIA: Procedural SedationFINDINGS: unremarkableESTIMATED BLOOD LOSS: 0 mlSPECIMENS: 2 core biopsies obtained.COMPLICATIONS: NonePRE-OP/PRE-PROCEDURE DIAGNOSIS: fatty liverPOST-OP/POST-PROCEDURE DIAGNOSIS: * No post-op diagnosis entered *SAASIGNATURE: Yakelin Webster MD PATIENT NAME: Britney AsenciosDATE: August 27, 2018 : 10:31 AM PAGER/CONTACT #: Reason for Referral Specialty Diagnoses / Procedures Referred By Contac t Referred To Contact Diagnoses Chronic pain syndrome Procedures CONSULT FOR ACUPUNCTURE OFFICE/OUTPATIENT [facility] 60-74 MINUTES Ciara Price, [address] [place] [address] Referral ID Status Reason Start Date Expiration Date Visits Requested Visits Authorized [id number] Pending Review PCP Requested Referral 02/25/2022 02/25/2023 1 1 Specialty Diagnoses / Procedures Referred By Contac t Referred To Contact Urology Diagnoses Urinary incontinence, unspecified type Procedures CONSULT TO UROLOGY OFFICE/OUTPATIENT [facility] 60-74 MINUTES Michelle Tejada MD [address] [place] [address] Referral ID Status Reason Start Date Expiration Date Visits Requested Visits Authorized [id number] Authorized PCP Requested Referral 03/19/2022 03/19/2023 1 1 Additional Source Comments INFORMATION SOURCE (unrecogn ized section and content) DATE CREATED AUTHOR AUTHOR'S ORGANIZ ATION 09/02/2018 [facility] DATE CREATED AUTHOR AUTHOR'S ORGANIZ ATION 09/29/2018 [facility] DATE CREATED AUTHOR AUTHOR'S ORGANIZ ATION 07/12/2020 [facility] DATE CREATED AUTHOR AUTHOR'S ORGANIZ ATION 11/11/2023 [facility] Source Comments (unrecognize d section and content) In the event this informatio n is protected by the Federal Confidentiality of Alcohol and Drug Abuse Patient Records regulations: The Federal rules restrict any use of the information to criminally investigate or prosecute any alcohol or drug abuse patient.[facility] the event this information is protected by the Federal Confidentiality of Alcohol and Drug Abuse Patient Records regulations: The Federal rules restrict any use of the information to criminally investigate or prosecute any alcohol or drug abuse patient.[facility] the event this information is protected by the Federal Confidentiality of Alcohol and Drug Abuse Patient Records regulations: The Federal rules restrict any use of the information to criminally investigate or prosecute any alcohol or drug abuse patient.[facility] the event this information is protected by the Federal Confidentiality of Alcohol and Drug Abuse Patient Records regulations: The Federal rules restrict any use of the information to criminally investigate or prosecute any alcohol or drug abuse patient.[facility] the event this information is protected by the Federal Confidentiality of Alcohol and Drug Abuse Patient Records regulations: The Federal rules restrict any use of the information to criminally investigate or prosecute any alcohol or drug abuse patient.[facility] the event this information is protected by the Federal Confidentiality of Alcohol and Drug Abuse Patient Records regulations: The Federal rules restrict any use of the information to criminally investigate or prosecute any alcohol or drug abuse patient.[facility]In the event this information is protected by the Federal Confidentiality of Alcohol and Drug Abuse Patient Records regulations: The Federal rules restrict any use of the information to criminally investigate or prosecute any alcohol or drug abuse patient.[facility] the event this information is protected by the Federal Confidentiality of Alcohol and Drug Abuse Patient Records regulations: The Federal rules restrict any use of the information to criminally investigate or prosecute any alcohol or drug abuse patient.[facility]In the event this information is protected by the Federal Confidentiality of Alcohol and Drug Abuse Patient Records regulations: The Federal rules restrict any use of the information to criminally investigate or prosecute any alcohol or drug abuse patient.[facility] the event this information is protected by the Federal Confidentiality of Alcohol and Drug Abuse Patient Records regulations: The Federal rules restrict any use of the information to criminally investigate or prosecute any alcohol or drug abuse patient.[facility]In the event this information is protected by the Federal Confidentiality of Alcohol and Drug Abuse Patient Records regulations: The Federal rules restrict any use of the information to criminally investigate or prosecute any alcohol or drug abuse patient.[facility]In the event this information is protected by the Federal Confidentiality of Alcohol and Drug Abuse Patient Records regulations: The Federal rules restrict any use of the information to criminally investigate or prosecute any alcohol or drug abuse patient.[facility] the event this information is protected by the Federal Confidentiality of Alcohol and Drug Abuse Patient Records regulations: The Federal rules restrict any use of the information to criminally investigate or prosecute any alcohol or drug abuse patient.[facility] the event this information is protected by the Federal Confidentiality of Alcohol and Drug Abuse Patient Records regulations: The Federal rules restrict any use of the information to criminally investigate or prosecute any alcohol or drug abuse patient.[facility] the event this information is protected by the Federal Confidentiality of Alcohol and Drug Abuse Patient Records regulations: The Federal rules restrict any use of the information to criminally investigate or prosecute any alcohol or drug abuse patient.[facility] Reason for Visit (unrecogniz ed section and content) Reason Comments Medication Problem Reason Comments Cough Reason Comments Cough headache, vomiting w ith cough x 2 days Reason Comments Follow Up Reason Comments Appointment Patient Question Reason Comments Acute Visit Reason Comments Follow Up Sleep Problem Depression Anxiety Reason Comments Appointment Reason Comments Patient Update Reason Comments Patient Update Patient Question Appointment Reason Comments Shortness of Breath cough, denied chest pain x2 mths Headache pain rated 7, bodyac hes BS AM 112 Reason Comments Follow Up Care Teams (unrecognized sec tion and content) Flaker Operator Relationship Specialty Start Date End Date Michelle Tejada MD [address], [place] [id number] PCP - General Family Practice 07/29/21 Andrew Broderick III, MD Family Practice 08/03/17 [facility] [address] [place] [address] Pharmacist Pharmacy 09/19/21 Flaker Operator Relationship Specialty Start Date End Date Michelle Tejada MD [address] [place] [address] PCP - General Family Practice 07/29/21 Andrew Broderick III, MD Family Practice 08/03/17 [facility] [address] [place] [address] Pharmacist Pharmacy 09/19/21 Flaker Operator Relationship Specialty Start Date End Date Michelle Tejada MD [address] [place] [address] PCP - General Family Practice 07/29/21 Andrew Broderick III, MD Family Practice 08/03/17 [facility] [address] [place] [address] Pharmacist Pharmacy 09/19/21 Flaker Operator Relationship Specialty Start Date End Date Michelle Tejada MD [address] [place] [address] PCP - General Family Practice 07/29/21 Andrew Broderick III, MD [facility] 08/03/17 [facility] [address] [place] [address] Pharmacist Pharmacy 09/19/21 Flaker Operator Relationship Specialty Start Date End Date Michelle Tejada MD [address] [place] [address] PCP - General Family Practice 07/29/21 Andrew Broderick III, MD Family Practice 08/03/17 [facility] [address] [place] [address] Pharmacist Pharmacy 09/19/21 Flaker Operator Relationship Specialty Start Date End Date Michelle Tejada MD [address] [place] [address] PCP - General Family Practice 07/29/21 Andrew Broderick III, MD [facility] 08/03/17 [facility] [address] [place] [address] Pharmacist Pharmacy 09/19/21 Flaker Operator Relationship Specialty Start Date End Date Michelle Tejada MD [address] [place] [address] PCP - General Family Medicine 07/29/21 Andrew Broderick III, MD Family Medicine 08/03/17 [facility] [address] [facility] [place] [id number] Pharmacist Pharmacy 09/19/21 Flaker Operator Relationship Specialty Start Date End Date Michelle Tejada MD [address] [place] [address] PCP - General Family Medicine 07/29/21 Andrew Broderick III, MD Family Medicine 08/03/17 FOR RECORDS PERTAINING TO PATIENTS WHO ARE OR HAVE BEEN ENROLLED IN A CHEMICAL DEPENDENCY/SUBSTANCEABUSE PROGRAM, SOME INFORMATION MAY BE OMITTED. This clinical summary was aggregated from multiple sources. Caution should be exercised in using it in the provision of clinical care. This summary normalizes information from multiple sources, and as a consequence, information in this document may materially change the coding, format and clinical context of patient data. In addition, data may be omitted in some cases. CLINICAL DECISIONS SHOULD BE BASED ON THE PRIMARY CLINICAL RECORDS. [employer] [facility]. provides no warranty or guarantee of the accuracy or completeness of information in this document.
== END | disposition home or self-care (01) ==
LOC: US 07:23
PROVIDERS: PCP Internal Medicine; Referring Provider Internal Medicine Gastroenterology; Visit Provider Internal Medicine Gastroenterology
DX: K76.9 Liver disease, unspecified (principal)
CPT/HCPCS: 76705; 76981

== ENCOUNTER → 2024-03-18 | Outpatient (CLI) | payer MEDICARE, SELFPAY ==
[2024-03-18 15:22] LABS: Hematocrit 39.2 % (37-47); Mean Corp Hgb Conc 33.2 g/dL (32-36); Mean Corpuscular Hgb 28.5 pg (27.0-32.0); Mean Platelet Vol. 9.1 fl (6.2-12.0); Platelet Count 458 K/mm3 (150-450); RBC Distribution Width CV 13.2 % (11.6-14.6); RBC Distribution Width SD 40.7 fl (35.1-43.9); Red Blood Count 4.56 M/mm3 (4.2-5.4); White Blood Count 9.8 K/mm3 (4.4-11.0)
[2024-03-18 16:00] LABS: Anion Gap 5 (5-15); BUN 6 mg/dL (7-18); BUN/Creat Ratio 8.5 RATIO (10-20); Calcium,Total 9.6 mg/dL (8.5-10.1); Chloride 106 mmol/L (98-107); Creatinine, Serum 0.71 mg/dL (0.55-1.02); EST Glomerular Filtration Rate 88 mL/min (>60); Est Glom Filt Rate - Afr Amer 107 mL/min (>60); Glucose 108 mg/dL (74-106); Potassium 4.3 mmol/L (3.5-5.1); Sodium Level 138 mmol/L (136-145)
== END | disposition home or self-care (01) ==
LOC: MTLAB 13:34
PROVIDERS: PCP Internal Medicine; Referring Provider Urology; Visit Provider Urology
DX: R10.30 Lower abdominal pain, unspecified (principal); M54.9 Dorsalgia, unspecified; Z87.442 Personal history of urinary calculi
CPT/HCPCS: 36415; 80048; 85027

== ENCOUNTER → 2024-03-29 | Outpatient (CLI) | payer MEDICARE, SELFPAY ==
--- NOTE | 2024-03-29 17:45 | CT_ITS ---
STUDY: CT ABDOMEN AND PELVIS WITHOUT CONTRAST REASON FOR EXAM: Female, 63 years old. PAIN AND HISTORY OF KIDNEY STONES RADIATION DOSAGE (If Supplied By Facility): CTDIvol = ( 20.04 ) mGy, DLP = ( 981.45 ) mGycm TECHNIQUE: Transaxial images were obtained from the dome of the diaphragm to the symphysis pubis without oral contrast, and without intravenous contrast. Sagittal and coronal images were reconstructed. Individualized dose optimization techniques were used for this CT. COMPARISON: Comparison is made with prior examination dated April 29, 2014. FINDINGS: Minimal linear scarring in the right lower base. Coronary artery calcification. There is decreased attenuation of the liver consistent with steatosis. Hepatomegaly. There are surgical clips in the gallbladder fossa consistent with a prior cholecystectomy. Normal spleen. Normal pancreas. Normal bilateral adrenal glands. Normal right kidney. Normal left kidney. Normal visualized stomach. Normal small intestine. There are multiple colonic diverticula consistent with diverticulosis. The patient is status post appendectomy. There is diffuse atherosclerotic calcification of the abdominal aorta, without a demonstrated aneurysm. Normal inferior vena cava. Normal retroperitoneum. Normal urinary bladder. Bilateral tubal ligation clips are seen. Calcified phleboliths are seen in the pelvis. There is a tiny umbilical hernia containing fat. Normal osseous structures. CT/Abdomen/Pelvis without Cont IMPRESSION: Hepatomegaly and fatty infiltration of the liver. Status post cholecystectomy and appendectomy. No renal calcification or ureteral calculi is seen. Electronically Signed: Randell Cornell MD at 14:34 EDT ,
== END | disposition home or self-care (01) ==
PROVIDERS: PCP Internal Medicine; Referring Provider Urology; Visit Provider Urology
DX: R10.9 Unspecified abdominal pain (principal); M54.9 Dorsalgia, unspecified; Z87.442 Personal history of urinary calculi
CPT/HCPCS: 74176

== ENCOUNTER 2024-08-07 13:04 | Emergency (ER) | payer MEDICARE, SELFPAY ==
[2024-08-07 13:04] VITALS: BP 135/73; PULSE 91; RESP 16; TEMP 36.5; O2SAT 96
[2024-08-07 13:49] LABS: Bacteria 0 SEEN /hpf (None Seen); Mucous, Urine 0 SEEN /hpf (<or=2+); Red Blood Cells-Urine 0 SEEN /hpf (0-5); White Blood Cells 0 SEEN /hpf (0-5)
[2024-08-07 13:54] LABS: Color, Urine Yellow (Yellow); Glucose, Dipstick Normal (Normal); Ketone-Dipstick Negative (Negative); Leukocyte Esterase-Dipstick 25 /ul (Negative); Nitrite-Dipstick Negative (Negative); Occult Blood-Urine Negative /ul (Negative); Protein-Dipstick Negative (Negative); Urine Bilirubin Dipstick Negative (Negative); Urine Clarity Sl. Cloudy (Clear); Urine Urobilinogen Normal (Normal)
[2024-08-07 14:00] LABS: Squamous Epithelial Cells - UA 0-5 SEEN /hpf (5-10)
--- NOTE | 2024-08-07 14:58 | EDS_ITS ---
HPI History of Present Illness Chief Complaint: Back Informant: patient and family Onset/Context/Timing Onset: Weeks Context: Gradual Onset Timing: Continuous Quality: Dull and Aching Current Severity: Mild Maximum Severity: Moderate Worsened by: improves with Movement, Bending and Lifting Relieved by: Nothing Associated Symptoms Associated Symptoms: Radiation to Right Leg and Radiation to Left Leg; Negative for Numbness, Tingling, Fever, Abdominal Pain, Dysuria, Unable to Ambulate, Unable to Transfer, Urinary Retention, Urinary Incontinence, Constipation or Fecal Incontinence Narrative Narrative: 63-year-old female history of diabetes, TIA, COPD, vascular disease, prior neck surgery but no lower back surgery. States that she is moved and helped other people moving the last month and she has had lower back pain radiating to both hips for several weeks. Worse with movement. Has had intermittent urinary incontinence. She has had a prior bladder suspension has had that before. Les es any fever. No leg weakness currently. Denies any numbness. Prior similar symptoms: Yes Recent Illness/Hospitalization: No PFSH PFSH Medical History Obesity Diabetes Stress incontinence Tachycardia Cardiology follow-up encounter HPV (human papilloma virus) anogenital infection COVID-19 (01/04/23) Urethral stenosis Wears dentures Cancer Marijuana use Rash Ambulates with cane Bladder disease High cholesterol TIA (transient ischemic attack) Gastric reflux History of IBS Smoker CPAP (continuous positive airway pressure) dependence Chronic cough COPD (chronic obstructive pulmonary disease) Leg cramps History of pain when walking History of echocardiogram History of stress test Hiatal hernia Vitamin D deficiency Vascular disease History of stomach ulcers Osteoporosis Neuropathy Liver disease IBS (irritable bowel syndrome) Heart disease H/O emotional problems Chronic bronchitis Breast lump Bone fracture Arthritis Anemia Nonobstructive atherosclerosis of coronary artery Essential (primary) hypertension Obese Incidental lung nodule, > 3mm and < 8mm Tobacco abuse MELYSSA (obstructive sleep apnea) Trigeminal neuralgia Esophageal reflux Dysmetabolic syndrome DDD (degenerative disc disease), cervical Migraine Asthma DJD (degenerative joint disease) Chronic obstructive lung disease Hyperlipidemia Depression Home Medications ?Medication ?Instructions ?Recorded ?Last Taken ?Type PEP device #1 ea 02/27/20 Unknown Rx medical marijuana card 1 ea PO PRN PRN Pain 05/29/22 Unknown History nitroglycerin 0.4 mg sublingual 0.4 mg sublingual Q5-15M PRN chest 03/10/23 Unknown Rx tablet pain #25 tabs aspirin 81 mg tablet,delayed 81 mg PO DAILY #30 tabs 05/21/23 06/08/23 Rx release ezetimibe 10 mg tablet (Zetia) 10 mg PO DAILY #30 tabs 05/28/23 Unknown Rx icosapent ethyl 1 gram capsule 2 g (2 x 1 gram) PO BID #120 caps 05/28/23 Unknown Rx (Vascepa) losartan 50 mg tablet 50 mg PO BID #180 tabs 07/10/23 Unknown Rx bupropion HCl 200 mg tablet,12 hr 200 mg PO DAILY #90 ea 09/21/23 Unknown Rx sustained-release ergocalciferol (vitamin D2) 1,250 1,250 mcg PO WE #12 caps 09/21/23 Unknown Rx mcg (50,000 unit) capsule (Vitamin D2) escitalopram oxalate 10 mg tablet 10 mg PO DAILY #90 tabs 09/21/23 Unknown Rx (Lexapro) albuterol sulfate 2.5 mg/3 mL 2.5 mg (3 mL) inhalation Q4H PRN 11/27/23 Unknown Rx (0.083 %) solution for nebulization SOB #180 mL albuterol sulfate 90 mcg/actuation 2 puff inhalation Q6H PRN 12/29/23 Unknown Rx aerosol inhaler (Ventolin HFA) shortness of breath or wheezing #18 grams diphenhydramine HCl 25 mg capsule 25 mg PO QHS PRN Sleep 03/22/24 Unknown History (Benadryl) omeprazole 20 mg tablet,delayed 20 mg PO DAILY PRN 03/22/24 Unknown History release clotrimazole 10 mg janak 10 mg mucous membrane TID #90 tabs 04/14/24 Unknown Rx tiotropium 2.5 mcg-olodaterol 2.5 2 inh inhalation DAILY #4 grams 04/14/24 Unknown Rx mcg/actuation mist for inhalation (Stiolto Respimat) diltiazem HCl 120 mg 120 mg PO DAILY Please call [facility] 06/07/24 Unknown Rx capsule,extended release 24 hr at [facility] if not available. #90 caps semaglutide 1 mg/dose (4 mg/3 mL) 1 mg (0.75 mL) subcut QWEEK #3 mL 07/01/24 Unknown Rx subcutaneous pen injector (Ozempic) prednisone 20 mg tablet 40 mg (2 x 20 mg) PO DAILY 7 days 08/07/24 Unknown Rx #14 tabs Allergy/AdvReac Type Severity Reaction Status Date / Time acetaminophen Allergy Severe Hives Verified 08/07/24 13:06 hydrocodone bitartrate (From Allergy Severe Hives Verified 08/07/24 13:06 Vicodin) hydromorphone HCl (From Allergy Severe Hives, Verified 08/07/24 13:06 Dilaudid) feels like on fire Penicillins Allergy Severe Anaphylaxis Verified 08/07/24 13:06 propoxyphene napsylate (From Allergy Severe Hives Verified 08/07/24 13:06 Darvocet-N 100) Sulfa (Sulfonamide Allergy Severe Hives Verified 08/07/24 13:06 Antibiotics) adhesive Allergy Rash Verified 08/07/24 13:06 budesonide (From Symbicort) Allergy Angioedema Verified 08/07/24 13:06 cephalexin monohydrate (From Allergy Rash Verified 08/07/24 13:06 Keflex) formoterol (From Symbicort) Allergy Angioedema Verified 08/07/24 13:06 Heparin Analogues Allergy severe Verified 08/07/24 13:06 bruising and rash latex Allergy Rash Verified 08/07/24 13:06 levofloxacin (From Levaquin) Allergy Swelling, Verified 08/07/24 13:06 rash oxycodone HCl (From Percocet) Allergy Hives Verified 08/07/24 13:06 oxytocin Allergy Hives Verified 08/07/24 13:06 Family History Mother Cancer Father Cancer Myocardial infarction Sister Cancer Other Alcoholism Anxiety Arthritis Blood clot associated with vein wall inflammation Breast cancer Cervical cancer Depression Melanoma Mental disorder Osteoporosis Surgical History History of cystoscopy H/O dilation of urethra History of repair of hiatal hernia History of cardiac catheterization History of sinus surgery History of cervical spinal surgery History of left heart catheterization (01/25/18) History of tubal ligation History of appendectomy History of cholecystectomy Social History Smoking Status: Current every day smoker tobacco type: cigarettes Tobacco: How many years used: 48 second hand exposure: Yes alcohol intake: current alcohol intake frequency: holidays/special occasions only substance use type: does not use, former substance user Date of last use: 2002 and crack/cocaine caffeine: Yes what type of physical activity do you participate in: none ROS ROS ED ROS Narrative Back pain. Denies recent illness. No fever. No dysuria. Constitutional Constitutional ED: Denies chills or fever(s) Eyes Eyes: Denies blurry vision ENT ENT ED: Denies ear pain Cardiovascular Cardiovascular: Denies chest pain Respiratory/Chest Respiratory/Chest: Denies dyspnea Gastrointestinal Gastrointestinal: Denies abdominal pain, constipation or diarrhea Genitourinary Genitourinary ED: Denies dysuria or hematuria Musculoskeletal Musculoskeletal: Reports back pain; Denies arthralgias Integumentary Denies abscess or Abrasions Neurologic Neurologic: Denies headache(s) Psychiatric Psychiatric: Denies anxiety or depression Endocrine Endocrinology: Denies cold intolerance or heat intolerance Hematologic/Lymphatic Hematologic/Lymphatic: Denies easy bleeding or easy bruising Allergic/Immunologic Allergic/Immunologic ED: Denies mouth swelling or tongue swelling EXAM Physical Exam Narrative Exam Narrative: Well-appearing is 63-year-old female. Sitting upright in bed. Son at bedside. Vital signs are stable and afebrile. H EENT exam unremarkable. Neck nontender. No lymphadenopathy. Lungs clear to auscultation bilaterally. Heart regular rhythm rate about 90 no murmur. Chest wall ribs nontender. Abdomen soft nontender. No peritoneal signs. No abdominal tenderness. Moving all 4 extremities. 5 out of 5 social services director strength. Dorsi plantarflexion intact. Negative straight leg raise. Back she has reproducible pain along her iliac crest and paralumbar soft tissue. There is no ecchymosis or bruising. No redness or warmth. She has normal social services director strength. Normal dorsi plantarflexion. She has no cauda equina or saddle anesthesia. Const Vital Signs: 08/07/24 13:04 08/07/24 15:04 Temperature 97.7 F L Temperature Source Temporal Pulse Rate 91 72 Respiratory Rate 16 16 Blood Pressure 135/73 H 110/56 L Blood Pressure Mean 93 74 Pulse Ox 96 Oxygen Delivery Method Room Air Positive well nourished and well developed; Negative for cachectic, contractures or unkempt General Appearance ED: well developed and NAD; Negative for unkempt, cachectic, contractures or pallor Nutritional Appearance: Negative for cachectic HEENT Reports moist mucous membranes; Denies dry mucous membranes Negative for trauma or tenderness Mouth ED: No dry mucous membranes Mouth: No dry mucous membranes Eyes PERRL and EOMs intact bilaterally Neck no lymphadenopathy, supple and no JVD General: Negative for tenderness Thyroid: Negative for other Resp normal respiratory effort and clear to auscultation bilaterally Effort and Inspection: Negative for pain with movement Auscultation: Negative for rales, rhonchi, wheezes or diminished lung sounds Cardio regular rate, regular rhythm, S1 normal heart sound, S2 normal heart sound and no murmurs Rate: Negative for bradycardia or tachycardic Rhythm: Negative for abnormal rhythm GI normal to inspection, nondistended, normoactive bowel sounds, soft to palpation, non-tender, non-distended and no masses Inspection: Negative for abdominal distention Palpation: Negative for tender, mass, pulsatile mass or rebound tenderness present Back/Spine normal to inspection; Negative for no thoracic nor lumbar tenderness Back/Spine Narrative: Lumbar and paralumbar soft tissue tenderness. No ecchymosis or bruising. No redness or warmth. Cervical Spine: cervical spine tenderness Lumbar Spine / Lower Back: Negative for straight leg raise negative bilaterally or straight leg raise positive right Extremity normal to inspection and no clubbing, cyanosis or edema General Extremety ED: Negative for edema or tenderness General Extremity: Negative for edema Neuro oriented x3 and no sensory deficits noted Sensorium / Orientation: alert; Negative for confused, lethargic or stuporous Motor Exam: strength 5/5 throughout Psych mental status grossly normal Appearance: Negative for unkempt Attitude: No agitated Mood & Affect: Negative for depressed, sad or tearful Skin no rashes or lesions noted and no wounds General Skin Exam: Negative for jaundice or pallor Lesions: No lesion noted Rashes: No rashes noted Trauma: Negative for abrasion or puncture MDM MDM MDM Narrative Medical decision making narrative: 63-year-old female with back pain for weeks ever since helping people move and moving herself. She has had prior neck surgery for degenerative disc disease bu t no prior lumbar or thoracic surgery. At times it radiates to her hips. Currently no cauda equina. Normal sensation. Nursing triage did a UA which was negative. I think this is musculoskeletal back pain most likely degenerative disc disease and radiculopathy. Plain film being obtained. She does not need any lab work. Her abdomen is nontender. Patient treated with IM morphine and p.o. Zofran. Repeat exam patient is feeling better after the IM injection of morphine. At 3:50 PM. Otherwise no change in her exam. We went over x-ray results. She will discharge on prednisone 40 mg a day for a week first dose given here. Watch her blood sugars. Follow-up your primary care physician for further evaluation and in case she needs an MRI. She does not need emergent MRI today. History & Record Review Discussion w/independent historian: Patient and Family Additional record(s) reviewed:: Prior inpatient record, Prior outpatient record, Prior ED visit and Prior labs Lab Data Attestation: I reviewed the patient's lab results. Lab results narrative: UA normal. No white or red cells. No nitrites. Labs: Laboratory Results - last 24 hr 08/07/24 13:38 Urine Color Yellow Urine Clarity Sl. Cloudy Urine pH 6.0 Ur Specific [place] 1.010 Urine Protein Negative Urine Glucose (UA) Normal Urine Ketones Negative Urine Occult Blood Negative Urine Nitrite Negative Urine Bilirubin Negative Urine Urobilinogen Normal Ur Leukocyte Esterase 25 H Urine RBC 0 SEEN Urine WBC 0 SEEN Ur Squamous Epith Cells 0-5 SEEN Urine Bacteria 0 SEEN Urine Mucus 0 SEEN Radiography Chest X-Ray - ED: Read by ED Physician X-Ray: LS SPine, Read by ED Physician and Read by Radiologist Diagnostic Testing: Clinical Impression(s) from Imaging Studies Lumbar Spine X-Ray 08/07/24 15:10 IMPRESSION: There are no acute findings. Electronically Signed: Paul Currie MD at 15:30 EDT Reading Location ID and State: [facility] / [place] , Service support , Lumbar spine x-ray, AP and lateral views interpreted by myself shows arthritis. Maintained vertebral body disc space. Vertebral body heights. No osteoblastic lesions. Chronic changes. Discharge Plan Triage Chief Complaint: Back Other Complaint: Abd Pain ED Provider: Seven Encarnacion Dx/Rx/DC Orders Clinical Impression: Acute lumbar back pain Instructions: ED Back Pain (Acute or Chronic) Prescriptions: New prednisone 20 mg tablet 40 mg PO DAILY 7 Days Qty: 14 0RF No Action (DME) PEP device See Rx Instructions .ROUTE .MEDSUPPLY Qty: 1 0RF Rx Instructions: with training medical marijuana card 1 ea PO PRN PRN (Reason: Pain) nitroglycerin 0.4 mg tablet, sublingual 0.4 mg sublingual Q5-15M PRN (Reason: chest pain) Qty: 25 3RF diphenhydramine HCl [Benadryl] 25 mg capsule 25 mg PO QHS PRN (Reason: Sleep) aspirin 81 mg tablet,delayed release (DR/EC) 81 mg PO DAILY Qty: 30 0RF omeprazole 20 mg tablet,delayed release (DR/EC) 20 mg PO DAILY PRN ezetimibe [Zetia] 10 mg tablet 10 mg PO DAILY Qty: 30 11RF icosapent ethyl [Vascepa] 1 gram capsule 2 g PO BID Qty: 120 11RF losartan 50 mg tablet 50 mg PO BID Qty: 180 3RF bupropion HCl 200 mg tablet sustained-release 12 hr 200 mg PO DAILY Qty: 90 3RF ergocalciferol (vitamin D2) [Vitamin D2] 1,250 mcg (50,000 unit) capsule 1,250 mcg PO WE Qty: 12 3RF escitalopram oxalate [Lexapro] 10 mg tablet 10 mg PO DAILY Qty: 90 3RF albuterol sulfate 2.5 mg /3 mL (0.083 %) solution for nebulization 2.5 mg INHALATION Q4H PRN (Reason: SOB) Qty: 180 12RF albuterol sulfate [Ventolin HFA] 90 mcg/actuation HFA aerosol inhaler 2 puff INHALATION Q6H PRN (Reason: shortness of breath or wheezing) Qty: 18 3RF clotrimazole 10 mg janak 10 mg mucous membrane TID Qty: 90 6RF Stiolto Respimat 2.5-2.5 mcg/actuation mist 2 inh inhalation DAILY Qty: 4 2RF diltiazem HCl 120 mg capsule,extended release 24hr 120 mg PO DAILY Qty: 90 3RF Ozempic 1 mg/dose (4 mg/3 mL) pen injector 1 mg subcut QWEEK Qty: 3 3RF Primary Care Provider: Leia Thomas Referrals: Yariel Crenshaw MD [Med Staff - Agriculture Specialist] - As soon as possible Leia Thomas MD [Primary Care Provider] - Activity Restrictions/Additional Instructions: Your back pain seems musculoskeletal. It may be from degenerative disc disease or arthritis in your back. It could be from a pinched nerve. Prednisone 40 mg a day for a week. Watch your blood sugars while on this. Follow-up with local primary care physician because if this is not improving you may need to get an MRI of your lower back to evaluate the discs, spinal cord and nerves in your back. There is are not seen on a plain x-ray. Print Language: Dominican Disposition Disposition: Home, Self Care
[2024-08-07 15:04] VITALS: BP 110/56; PULSE 72; RESP 16
[2024-08-07] MEDS: morphine 10 MG/ML Syringe 8 MG IM (15:04)
[2024-08-07] MEDS: Ondansetron ODT 4 MG Tablet PO (15:05)
--- NOTE | 2024-08-07 15:10 | RAD_ITS ---
STUDY: X-RAY - LUMBAR SPINE REASON FOR EXAM: Female, 63 years old. pain TECHNIQUE: XR Spine Lumbar 2 Views COMPARISON: 08.13.22 FINDINGS: Normal lumbar lordosis. There is no substantial scoliosis. There is a normal alignment of the vertebrae. Normal vertebral bodies and endplates. Normal disc space heights. There is atherosclerotic calcification of the abdominal aorta without a demonstrated aneurysm. Cholecystectomy changes. RAD/Lumbar Spine 2 or 3 Views IMPRESSION: There are no acute findings. Electronically Signed: Paul Currie MD at 15:30 EDT ,
[2024-08-07] MEDS: predniSONE 20 MG Tablet 40 MG PO (15:59)
[2024-08-07 16:00] VITALS: BP 123/66; PULSE 72; RESP 16; TEMP 36.7; O2SAT 96
== END 2024-08-07 16:05 | disposition home or self-care (01) ==
PROVIDERS: Emergency Provider Emergency Medicine; PCP Internal Medicine; Visit Provider Emergency Medicine
DX: M54.50 Low back pain, unspecified (principal); J44.9 Chronic obstructive pulmonary disease, unspecified; E11.40 Type 2 diabetes mellitus with diabetic neuropathy, unspecified; I25.10 Atherosclerotic heart disease of native coronary artery without angina pectoris; R32 Unspecified urinary incontinence; E78.00 Pure hypercholesterolemia, unspecified; F17.210 Nicotine dependence, cigarettes, uncomplicated; I10 Essential (primary) hypertension; Z86.73 Personal history of transient ischemic attack (TIA), and cerebral infarction without residual deficits
CPT/HCPCS: 72100; 81001; 96372; 99283

== ENCOUNTER 2024-09-22 15:30 | Outpatient (RCR) | payer MEDICARE, SELFPAY ==
--- NOTE | 2024-09-13 13:10 | HP.PTEVAL_ITS ---
Patient's Visit Information Visit Information Visit Information: BRITNEY NICOLE is a 63 year old F referred to Physical Therapy by Dr. Dominik Loza MD with a diagnosis of Lumbar DDD. Date of Evaluation: 09/08/24 Physical Therapist: Swapnil Diana DPT Visit Plan Frequency: 2x /Week Duration: 4 Weeks Plan: PT in aquatic setting: Core and hip strengthening Lumbar mobility as tolerated HS and hip flexor stretching. Subjective Subjective: Pt. is here today for her initial evaluation with diagnosis of lumbar DDD. Pt. reports having increased pain for ~ 2 months. No mech of injury. Pt. had been moving over the past few months or so. Pt. complains about pain in her back and it wraps around the front of her thigh. Pt. also has some N/T in her foot. Pt. is on disability due a previous neck injury. Pt. has been moving and has noticed increased pain since. Pt. reports no myotomal weakness, but does have marked tingling in her foot. Pt. reports basically no relief with any movements or positioning. Pt. reports increased pain with sitting, standing, lifting. pt. reports no changes in B/B. Pt. is hopeful to increase her strength and ROM, but more focused on reducing her pain. Pain Lumbar spine: Pain Intensity (Out of 10): 8 Pain Intensity Range: 2 and 10 Objective Objective: POSTURE: Pt. has a general flexed posture. Pt. has no lateral shift noted. PALPATION: Increased pain with spring testing to L3, L4 and L5. Pt. reports no increase in radicular symptoms with trials. NEURO: Pt. has normal sensation in BLEs. Pt. has normal DTR of BLEs. Pt. is able to rise on heels and toes without issues. ROM: LUMBAR SPINE: flexion min/mod loss increase NW, ext min/mod loss increase NW, SB min loss bilat increase NW, rotation min loss bilat increase NW. Pt. has tightness in B HS and B hip flexors. Pt. did have increased pain in her L thigh with prone lying. Slight better with flexed posture, but not much. MMT: PT. has decent strength throughout BLEs 4+/5 throughout, core strength poor. GAIT: Pt. has a general flexed posture with gait. Pt. has decreased B step length with limited arm swing. Pt. has a very guarded posture with gait. Pt. did not tolerate lying on her back or stomach well and would have to change positions frequently. Pt. has having increased N/T in her leg L anterior leg. Pt. did report N/T in both feet R worse than L. Special Tests L/S Slump test left side: Negative L/S Slump test right side: Negative L/S Left Straight Leg Raise: Negative L/S Right Straight Leg Raise: Negative Lumbar Standing: Flexion - Mechanical Response: No effect Lumbar Standing: Flexion - Symptoms During Testing: Increases Lumbar Standing: Flexion - Symptoms After Testing: No worse Lumbar Standing: Extension - Mechanical Response: No effect Lumbar Standing: Extension - Symptoms During Testing: Increases Lumbar Standing: Extension - Symptoms After Testing: No worse Lumbar Standing: Right Side Glides - Mechanical Response: No effect Lumbar Standing: Right Side [place] - Symptoms During Testing: No effect Lumbar Standing: Right Side [place] - Symptoms After Testing: No effect Lumbar Standing: Left Side [place] - Mechanical Response: No effect Lumbar Standing: Left Side [place] - Symptoms During Testing: No effect Lumbar Standing: Left Side [place] - Symptoms After Testing: No effect Balance/Special Test Scores Oswestry Low Back Score: 34 Goals Goal 1:: LTG: Pt. to be I with HEP. Goal Time Frame: 4-6 Weeks Goal 2:: STG: Pt. have increased lumbar ROM to min loss throughout with less than 5/10 pain. Goal Time Frame: 2-4 Weeks Goal 3:: LTG: Pt. to ambulate unlimited distances with 0-2/10 pain in lumbar spine. Goal Time Frame: 4-6 Weeks Goal 4:: LTG: pt. to have increased core and B hip strength to 5/5 throughout. Goal Time Frame: 6-8 Weeks Goal 5:: LTG: Pt. to sleep throughout the night without increase in symptoms. Goal Time Frame: 4-6 Weeks Rehabilitation Potential Physical Therapy Diagnosis: pt. has signs and symptoms consistent with lumbar DDD. Pt. has marked lumbar hypomobility, BLE/core weakness and difficulty with ADLs and gait. Pt. would benefit from PT to address the above limitations progressing back to all recreational activities without issues. Rehabilitation Potential: Fair Anticipated Interventions Patient/Client Instruction: Educate patient on: Condition, Plan of Care, Risk Factors and Benefits of Fitness Program For the Purpose of:: To improve decision making, To facilitate caregiver knowledge, To improve self management, To prevent re-injury and To improve ability to perform tasks related to life management Therapeutic Exercise to Include: Strength training, Power training, Postural training, Flexibilty training, In an aquatic setting, Passive ROM, Active ROM and Dynamic Lumbar Stabilization For the Purpose of:: To decrease pain, To increase ROM, To improve nutrient delivery to tissue, To increase oxygenation perfusion, To improve muscle performance and motor function, To improve ability to perform ADL's, To increase tolerance to activity/condition/position, To improve health of tissue, To decrease soft tissue restriction and To increase flexibility/ROM Text: Thank you for the opportunity to evaluate your patient. For Medicare and Medicare HMO plans, please review the plan of care and approve it. It will need to be FAXED BACK to us at [phone] for Medicare purposes. For Medicare only, by signing this I certify the plan of care. Please let me know if there are questions or concerns regarding this plan of care. Physician Signature: Date:
== END 2024-09-22 19:00 | disposition home or self-care (01) ==
LOC: PT 15:30
PROVIDERS: PCP Internal Medicine; Referring Provider Orthopaedic Surgery Orthopaedic Surgery of the Spine; Visit Provider Orthopaedic Surgery Orthopaedic Surgery of the Spine
DX: M51.369 Other intervertebral disc degeneration, lumbar region without mention of lumbar back pain or lower extremity pain (principal)
CPT/HCPCS: 97113; 97161

== ENCOUNTER 2024-09-27 17:45 | Emergency (ER) | payer MEDICARE, SELFPAY ==
[2024-09-27] VITALS (7 sets, daily range): BP systolic 129–168; BP diastolic 76–101; PULSE 67–100; RESP 10–21; TEMP 36.6; O2SAT 93–97; BMI 35.3
[2024-09-27 18:24] LABS: Absolute Lymphocyte Count 3.22 X10^3/uL (0.83-4.51); Absolute Neutrophil Count 7.2 X10^3/uL (2.0-7.7); Basophil# 0.07 X10^3/uL; Basophil% 0.6 % (0-1); Eosinophil# 0.19 X10^3/uL; Eosinophils% 1.6 % (0-5); Hematocrit 42.8 % (37-47); Hemoglobin 14.6 g/dL (12.0-15.0); Lymphocyte # 3.22 X10^3/ul (0.83-4.51); Mean Corp Hgb Conc 34.1 g/dL (32-36); Mean Corpuscular Hgb 28.8 pg (27.0-32.0); Mean Corpuscular Volume 84.4 fL (81-99); Mean Platelet Vol. 8.9 fl (6.2-12.0); Monocyte# 0.82 X10^3/uL; Monocyte% 7.1 % (0-10); NRBC Flagged by Analyzer 0 % (0-5); Neutrophil # 7.16 X10^3/uL (2.7-7.7); Neutrophil % 62.2 % (47-70); Platelet Count 377 K/mm3 (150-450); RBC Distribution Width CV 13.1 % (11.6-14.6); RBC Distribution Width SD 39.8 fl (35.1-43.9); Red Blood Count 5.07 M/mm3 (4.2-5.4); White Blood Count 11.5 K/mm3 (4.4-11.0)
[2024-09-27 18:37] LABS: Anion Gap 7 (5-15); BUN 6 mg/dL (7-18); BUN/Creat Ratio 6.7 RATIO (10-20); Calcium,Total 9.2 mg/dL (8.5-10.1); Chloride 108 mmol/L (98-107); Creatinine, Serum 0.89 mg/dL (0.55-1.02); EST Glomerular Filtration Rate 68 mL/min (>60); Est Glom Filt Rate - Afr Amer 82 mL/min (>60); Estimated Creatinine Clearance 63.95 ml/min; Glucose 99 mg/dL (74-106); Potassium 3.6 mmol/L (3.5-5.1); Sodium Level 140 mmol/L (136-145); Troponin-I HS (w/2H Reflex) 7 pg/mL (3.0-54.0)
[2024-09-27] MEDS: Ondansetron 4 MG/2 ML Vial IV (18:56)
[2024-09-27 19:53] LABS: D-Dimer Quantitative (DVT/PE) 0.57 FEU/ug/m (0.27-0.49)
[2024-09-27 20:17] LABS: Reflex Troponin-HS? (from REC) Y
[2024-09-27] MEDS: Ketorolac 30 MG/ML Syringe IV (20:25)
[2024-09-27 20:57] LABS: Troponin-I HS 8 pg/mL (3.0-54.0)
== END 2024-09-27 22:03 | disposition home or self-care (01) ==
PROVIDERS: Emergency Provider Emergency Medicine; PCP Internal Medicine; Visit Provider Emergency Medicine
DX: R07.89 Other chest pain (principal); J44.9 Chronic obstructive pulmonary disease, unspecified; E11.40 Type 2 diabetes mellitus with diabetic neuropathy, unspecified; I25.10 Atherosclerotic heart disease of native coronary artery without angina pectoris; R51.9 Headache, unspecified; I10 Essential (primary) hypertension; E78.00 Pure hypercholesterolemia, unspecified; F17.210 Nicotine dependence, cigarettes, uncomplicated
CPT/HCPCS: 71045; 80048; 84484; 85025; 85379; 93005; 96374; 96375; 99284; A4216; J2405

== ENCOUNTER → 2024-10-17 | Outpatient (CLI) | payer MEDICARE, SELFPAY ==
--- NOTE | 2024-10-17 07:12 | MRI_ITS ---
STUDY: MRI LUMBAR SPINE WITHOUT CONTRAST REASON FOR EXAM: Female, 63 years old. Low back pain x2 months. TECHNIQUE: Standardized fat and water weighted pulse sequences were obtained in the sagittal and axial planes. COMPARISON: MR lumbar spine without contrast 09/24/2022. FINDINGS: T10-T11 and T11-T12: (Sagittal only). Normal endplates. Normal disc height and morphology. Normal central canal and bilateral intervertebral neuroforamina. T12-L1: (Sagittal only). Normal endplates. Normal disc height. Mild ventral extradural defect due to small posterior bulging annulus. Normal central canal and bilateral intervertebral neuroforamina. Normal lumbar lordosis. There is no substantial scoliosis. Normal conus medullaris that terminates at the lower L1 vertebral body level. L1-2: Normal endplates. Normal disc height, hydration and morphology. Normal bilateral facet joints. Normal central canal and bilateral lateral recesses. Normal bilateral intervertebral neural foramina. L2-3: Normal endplates. Normal disc height. Mild ventral extradural defect due to small posterior bulging annulus. Normal facet joints. Normal central canal and bilateral lateral recesses. Normal bilateral intervertebral neuroforamina. L3-4: Normal endplates. Normal disc height, hydration and morphology. Normal bilateral facet joints. Normal central canal and bilateral lateral recesses. Normal bilateral intervertebral neural foramina. L4-5: Normal endplates. Mild disc space height narrowing. Mild ventral extradural defect due to posterior bulging annulus. This has increased in size. No significant facet arthropathy. Mild central canal stenosis with an AP canal diameter of 9 mm is unchanged. Normal bilateral lateral recesses. Normal bilateral intervertebral neuroforamina. L5-S1: Normal endplates. Normal disc height, hydration and morphology. Normal bilateral facet joints. Normal central canal and bilateral lateral recesses. Normal bilateral intervertebral neural foramina. Normal visualized sacral ala. Normal visualized paraspinous soft tissue structures. MRI/Spine Lumbar (Routine) IMPRESSION: 1. No MR evidence of lumbar extruded disc fragment, disc protrusion or nerve root displacement. 2. Small L2-L3 posterior bulging annulus has increased slightly in size. 3. Mild central canal stenosis at L4-L5 disc space level with an AP canal diameter of 9 mm unchanged. Mild increase in size and small posterior bulging annulus. 4. No MRI evidence of recent or remote fractures of the lumbar spine. Electronically Signed: Avery Perkins MD at 23:44 EST ,
--- NOTE | 2024-10-17 15:02 | STRESSREP ---
Stress Test Report Date: 10/17/2024 Procedure: Exercise tolerance test/imaging study Indications: Chest pain Consent: Per the patient Procedure: The patient exercised on a Kumar protocol for 4 minutes and 15 seconds achieving a peak heart rate of 142 bpm (90% predicted maximal heart rate) with a peak blood pressure 162/80 mmHg and a peak MET capacity of 7 METs. The baseline ECG demonstrated normal sinus rhythm. The peak exercise ECG demonstrated no significant ischemic changes. EKG during recovery revealed no significant ischemic changes [There were no cardiac dysrhythmias pretest, during exercise, or recovery]. The functional capacity was considered normal for age. There was [no complaint of chest discomfort during exercise or recovery]. The examination was discontinued secondary to dyspnea. Impression: 1. Technically adequate (percent predicted maximal heart rate greater than 85%) exercise tolerance test 2. Stress test is negative for exercise-induced EKG changes of ischemia 3. The test test is negative for exercise-induced chest pain 4. Functional capacity is normal for age 5. Nuclear images pending Myocardial perfusion imaging study: Technique: The patient was injected with 11.6 mCi of technetium 99m Cardiolite and subsequently rest SPECT Cardiolite nuclear imaging was obtained in the horizontal long, vertical long, and short axis views. The patient exercised on a Kumar protocol. Please see above for details. The patient was injected with 34.1 mCi of technetium 99m Cardiolite and subsequently stress SPECT Cardiolite nuclear imaging was obtained in the horizontal long, vertical long, and short axis views. A gated Cardiolite study at peak stress was obtained. Interpretation: Rest and stress SPECT Cardiolite nuclear imaging status post realignment, normalization, and attenuation correction, demonstrates no evidence of significant ischemia or infarction. The gated Cardiolite study demonstrates no significant regional wall motion abnormalities. The reported LVEF is greater than 70%. Impression: 1. There is no evidence of significant ischemia or infarction. 2. The gated Cardiolite study reports an LVEF of greater than 70%. This note was generated with [employer] software. It may contain incorrect words, spelling, and punctuation that were not noted in checking the note before signing.
== END | disposition home or self-care (01) ==
LOC: CVS 05:39
PROVIDERS: PCP Internal Medicine; Referring Provider Internal Medicine; Visit Provider Internal Medicine
DX: M51.362 Other intervertebral disc degeneration, lumbar region with discogenic back pain and lower extremity pain (principal); E11.65 Type 2 diabetes mellitus with hyperglycemia; M54.16 Radiculopathy, lumbar region; R07.9 Chest pain, unspecified; E78.2 Mixed hyperlipidemia; I10 Essential (primary) hypertension; Z72.0 Tobacco use
CPT/HCPCS: 72148; 78452; 93017; A9500; A4216

== ENCOUNTER → 2024-11-24 | Outpatient (CLI) | payer MEDICARE, SELFPAY ==
[2024-11-24 17:30] LABS: Absolute Lymphocyte Count 2.72 X10^3/uL (0.83-4.51); Absolute Neutrophil Count 4.9 X10^3/uL (2.0-7.7); Basophil# 0.06 X10^3/uL; Basophil% 0.7 % (0-1); Eosinophil# 0.47 X10^3/uL; Eosinophils% 5.4 % (0-5); Lymphocyte # 2.72 X10^3/ul (0.83-4.51); Mean Corp Hgb Conc 33.3 g/dL (32-36); Mean Corpuscular Hgb 28.5 pg (27.0-32.0); Mean Corpuscular Volume 85.5 fL (81-99); Mean Platelet Vol. 9.2 fl (6.2-12.0); Monocyte# 0.58 X10^3/uL; Monocyte% 6.6 % (0-10); NRBC Flagged by Analyzer 0 % (0-5); Neutrophil # 4.92 X10^3/uL (2.7-7.7); Platelet Count 421 K/mm3 (150-450); RBC Distribution Width CV 13.2 % (11.6-14.6); RBC Distribution Width SD 41.4 fl (35.1-43.9); Red Blood Count 4.91 M/mm3 (4.2-5.4); White Blood Count 8.8 K/mm3 (4.4-11.0)
[2024-11-24 17:46] LABS: Vitamin D,25 Hydroxy 77.6 ng/mL
[2024-11-24 17:49] LABS: Erythrocyte Sedimentation Rate 21 mm/hr (0-30)
[2024-11-24 17:50] LABS: T4 Free Direct 0.93 ng/dL (0.76-1.46)
[2024-11-24 18:00] LABS: ALB/GLOB Ratio 0.9 RATIO (0.9-2.4); AST(SGOT) 18 U/L (15-37); Alanine Aminotransfer ALT/SGPT 21 U/L (13-56); Albumin, Serum 3.5 g/dL (3.2-5.0); Alkaline Phosphatase 90 U/L (45-117); Anion Gap 8 (5-15); BUN 5 mg/dL (7-18); Calcium,Total 8.5 mg/dL (8.5-10.1); Chloride 104 mmol/L (98-107); EST Glomerular Filtration Rate 59 mL/min (>60); Est Glom Filt Rate - Afr Amer 72 mL/min (>60); Globulin 3.9 g/dL (2.2-4.2); Glucose 53 mg/dL (74-106); Magnesium 1.9 mg/dL (1.6-2.6); Protein, Total 7.4 g/dL (6.4-8.2); Sodium Level 136 mmol/L (136-145)
== END | disposition home or self-care (01) ==
LOC: MTLAB 14:25
PROVIDERS: Internal Medicine Endocrinology, Diabetes & Metabolism; PCP Internal Medicine; Referring Provider Internal Medicine; Visit Provider Internal Medicine
DX: R42 Dizziness and giddiness (principal); E11.65 Type 2 diabetes mellitus with hyperglycemia; R51.9 Headache, unspecified; G45.9 Transient cerebral ischemic attack, unspecified; F41.9 Anxiety disorder, unspecified; E55.9 Vitamin D deficiency, unspecified
CPT/HCPCS: 36415; 80053; 82306; 83735; 84439; 84443; 85025; 85652; 86140

== ENCOUNTER 2024-12-10 11:42 | Emergency (ER) | payer MEDICARE, SELFPAY ==
[2024-12-10 11:43] VITALS: PULSE 109; RESP 24; TEMP 37.2; O2SAT 94; BMI 33.2
[2024-12-10 12:14] VITALS: O2SAT 96
--- NOTE | 2024-12-10 12:25 | EKG12_ITS ---
Test Reason : Blood Pressure : */* mmHG Vent. Rate : 94 BPM Atrial Rate : 94 BPM P-R Int : 126 ms QRS Dur : 82 ms QT Int : 352 ms P-R-T Axes : 69 44 70 degrees QTcB Int : 440 ms Normal sinus rhythm Cannot rule out Inferior infarct , age undetermined Abnormal ECG Confirmed by PAULY MONTILLA, JULIANE ([id number]), film editor MADDIE MCKINNON ([id number]) on 12/13/2024 6:10:45 AM Referred By: Confirmed By: JULIANE COATS MD
--- NOTE | 2024-12-10 12:31 | EX.ED.DYSGE1 ---
HPI History of Present Illness Chief Complaint: Cough Narrative Narrative: Patient is a 64-year-old female with a past medical history of diabetes, hypertension, TIA, IBS, COPD, MELYSSA, hyperlipidemia, depression who presented to the emergency department with a chief complaint of cough and not feeling well. Patient states that for the past 3 to 4 days now she has had a cough with increased sputum production not feeling well. States that she went to urgent care and they advised her to come here as she was too sick. Patient denies any recent sick contacts. [facility] Medical History Chest pain Severe headache Obesity Diabetes Stress incontinence Tachycardia Cardiology follow-up encounter HPV (human papilloma virus) anogenital infection COVID-19 (01/04/23) Urethral stenosis Wears dentures Cancer Marijuana use Rash Ambulates with cane Bladder disease High cholesterol TIA (transient ischemic attack) Gastric reflux History of IBS Smoker CPAP (continuous positive airway pressure) dependence Chronic cough COPD (chronic obstructive pulmonary disease) Leg cramps History of pain when walking History of echocardiogram History of stress test Hiatal hernia Vitamin D deficiency Vascular disease History of stomach ulcers Osteoporosis Neuropathy Liver disease IBS (irritable bowel syndrome) Heart disease H/O emotional problems Chronic bronchitis Breast lump Bone fracture Arthritis Anemia Nonobstructive atherosclerosis of coronary artery Essential (primary) hypertension Obese Incidental lung nodule, > 3mm and < 8mm Tobacco abuse MELYSSA (obstructive sleep apnea) Trigeminal neuralgia Esophageal reflux Dysmetabolic syndrome DDD (degenerative disc disease), cervical Migraine Asthma DJD (degenerative joint disease) Chronic obstructive lung disease Hyperlipidemia Depression Home Medications ?Medication ?Instructions ?Recorded ?Last Taken ?Type PEP device #1 ea 02/27/20 Unknown Rx medical marijuana card 1 ea PO PRN PRN Pain 05/29/22 Unknown History nitroglycerin 0.4 mg sublingual 0.4 mg sublingual Q5-15M PRN chest 01/23/23 Unknown Rx tablet pain #25 tabs aspirin 81 mg tablet,delayed 81 mg PO DAILY #30 tabs 05/21/23 06/08/23 Rx release albuterol sulfate 90 mcg/actuation 2 puff inhalation Q6H PRN 12/29/23 Unknown Rx aerosol inhaler (Ventolin HFA) shortness of breath or wheezing #18 grams diphenhydramine HCl 25 mg capsule 25 mg PO QHS PRN Sleep 03/22/24 Unknown History (Benadryl) omeprazole 20 mg tablet,delayed 20 mg PO DAILY PRN 03/22/24 Unknown History release clotrimazole 10 mg janak 10 mg mucous membrane TID #90 tabs 04/14/24 Unknown Rx tiotropium 2.5 mcg-olodaterol 2.5 2 inh inhalation DAILY #4 grams 04/14/24 Unknown Rx mcg/actuation mist for inhalation (Stiolto Respimat) cyclobenzaprine 10 mg tablet 10 mg PO TID PRN muscle spasm #20 08/08/24 Unknown Rx tabs semaglutide 2 mg/dose (8 mg/3 mL) 2 mg (0.75 mL) subcut QWEEK #3 mL 08/08/24 Unknown Rx subcutaneous pen injector (Ozempic) ergocalciferol (vitamin D2) 1,250 1,250 mcg PO WE #12 caps 09/19/24 Unknown Rx mcg (50,000 unit) capsule (Vitamin D2) escitalopram oxalate 10 mg tablet 10 mg PO DAILY #90 tabs 09/19/24 Unknown Rx (Lexapro) losartan 50 mg tablet 50 mg PO BID #180 tabs 09/19/24 Unknown Rx cetirizine 10 mg tablet (Zyrtec) 10 mg PO QDAY PRN 10/05/24 Unknown History ezetimibe 10 mg tablet (Zetia) 10 mg PO DAILY #90 tabs 10/05/24 Unknown Rx bupropion HCl 200 mg tablet,12 hr 200 mg PO DAILY #90 ea 10/31/24 Unknown Rx sustained-release ondansetron 4 mg disintegrating 4 mg PO Q8H PRN nausea and 12/08/24 Unknown Rx tablet vomiting #10 tabs albuterol sulfate 90 mcg/actuation 2 puff inhalation Q6H PRN 12/10/24 Unknown Rx aerosol inhaler shortness of breath or wheezing #8.5 grams diltiazem HCl 120 mg 120 mg PO DAILY 12/10/24 Unknown History capsule,extended release 24 hr, controlled (DILT-XR) doxycycline hyclate 100 mg capsule 100 mg PO BID 7 days #14 caps 12/10/24 Unknown Rx metronidazole 0.75 % topical gel topical 12/10/24 Unknown History prednisone 50 mg tablet 50 mg PO DAILY 5 days #5 tabs 12/10/24 Unknown Rx Allergy/AdvReac Type Severity Reaction Status Date / Time acetaminophen Allergy Severe Hives Verified 12/10/24 11:43 hydrocodone bitartrate (From Allergy Severe Hives Verified 12/10/24 11:43 Vicodin) hydromorphone HCl (From Allergy Severe Hives, Verified 12/10/24 11:43 Dilaudid) feels like on fire Penicillins Allergy Severe Anaphylaxis Verified 12/10/24 11:43 propoxyphene napsylate (From Allergy Severe Hives Verified 12/10/24 11:43 Darvocet-N 100) Sulfa (Sulfonamide Allergy Severe Hives Verified 12/10/24 11:43 Antibiotics) adhesive Allergy Rash Verified 12/10/24 11:43 budesonide (From Symbicort) Allergy Angioedema Verified 12/10/24 11:43 cephalexin monohydrate (From Allergy Rash Verified 12/10/24 11:43 Keflex) formoterol (From Symbicort) Allergy Angioedema Verified 12/10/24 11:43 Heparin Analogues Allergy severe Verified 12/10/24 11:43 bruising and rash latex Allergy Rash Verified 12/10/24 11:43 levofloxacin (From Levaquin) Allergy Swelling, Verified 12/10/24 11:43 rash oxycodone HCl (From Percocet) Allergy Hives Verified 12/10/24 11:43 oxytocin Allergy Hives Verified 12/10/24 11:43 Family History Mother Cancer Father Cancer Myocardial infarction Sister Cancer Other Alcoholism Anxiety Arthritis Blood clot associated with vein wall inflammation Breast cancer Cervical cancer Depression Melanoma Mental disorder Osteoporosis Surgical History History of cystoscopy H/O dilation of urethra History of repair of hiatal hernia History of cardiac catheterization History of sinus surgery History of cervical spinal surgery History of left heart catheterization (01/25/18) History of tubal ligation History of appendectomy History of cholecystectomy Social History Smoking Status: Current every day smoker tobacco type: cigarettes Tobacco: How many years used: 48 second hand exposure: Yes alcohol intake: current alcohol intake frequency: holidays/special occasions only substance use type: does not use, former substance user Date of last use: 2002 and crack/cocaine caffeine: Yes what type of physical activity do you participate in: none ROS ROS ED ROS Narrative Constitutional: Complains of diffuse bodyaches, chills denies any fevers Cardiovascular: Denies chest pain or palpitations Respiratory: Complains of cough with increased sputum production as well as shortness of breath Abdomen: Denies abdominal pain nausea vomit diarrhea : Denies any urinary symptoms Neurological: Denies numbness, weakness, tingling Musculoskeletal: Denies back pain Skin: Denies any rashes or lesions EXAM Physical Exam Narrative Exam Narrative: General: Patient lying in bed rest comfortably did not appear to be in acute distress Head: Atraumatic, normocephalic Eyes: PERRL bilaterally, EOMI bilaterally, no conjunctival injection noted Neck: Soft, supple, trachea midline Cardiovascular: Regular rate and rhythm no murmurs gallops rubs noted Respiratory: Coarse breath sounds bilaterally with mild end expiratory wheezing noted bilaterally Abdomen: Soft, nondistended, nontender to palpation, bowel sounds present x 4 Extremities: +5/5 strength noted in the bilateral upper and lower extremities, no pedal edema on exam, radial pulses +2/4 in the bilateral extremities Neurological: Patient following commands knew that she was at [facility] year is 2024 Skin: Warm, dry, intact no rashes or lesions noted Const Vital Signs: 12/10/24 11:43 12/10/24 12:14 12/10/24 12:57 Temperature 98.9 F Temperature Source Oral Pulse Rate 109 H Respiratory Rate 24 H Respiratory Effort Normal Non-Labored Respiratory Depth Normal Respiratory Pattern Normal Blood Pressure Blood Pressure Mean Pulse Ox 94 94 Oxygen Delivery Method Room Air Room Air Room Air 12/10/24 14:13 Temperature Temperature Source Pulse Rate 95 Respiratory Rate 18 Respiratory Effort Respiratory Depth Respiratory Pattern Blood Pressure 144/81 H Blood Pressure Mean 102 Pulse Ox 97 Oxygen Delivery Method Room Air MDM MDM MDM Narrative Medical decision making narrative: Patient is a 64-year-old female who presented to the emergency department the chief complaint of cough and shortness of breath. On the differential diagnose includes but not limited to upper respiratory infection secondary to viral etiology, pneumonia, ACS, pneumothorax. Once workup is obtained reviewed she will be reevaluated. Patient be given 30 cc/kg bolus of IV fluids based on ideal body weight secondary to a BMI of greater than 30. These were ordered at 12:30 PM Patient's CBC was reviewed and showed no evidence leukocytosis white blood count was normal at 6.2, hemoglobin 13.4, platelet count was noted to be normal at 271. Patient INR was 0.9, PT of 12.8. Patient sodium was 130, potassium was 3.2 she was given 40 mill equivalents of potassium supplementation, creatinine was 0.76. Patient's lactic acid normal at 0.8. Patient's AST and ALT were 50 and 26 respectively. Patient's troponin was noted to be 34 EKG reviewed showed sinus rhythm with rate of [address] changes noted. Patient's urinalysis reviewed showed no evidence of infection there was 2+ bacteria she does not have any urinary symptoms this will be sent for culture. Patient's x-ray of her chest reviewed by myself and by radiology showed no acute findings. Patient did test positive for influenza A here she is on day 4 of illness now. Patient was given prednisone as she states that she has tolerated this in the past. Patient ambulated well here in the emergency department without any evidence hypoxia. I did discuss the results with the patient and ultimately she states that she wants to go home she does not want to stay in the hospital. Patient states that she does not need a prescription for rescue inhaler of albuterol which will be prescribed. She will also be given a prescription of doxycycline which she states she is tolerated in the past as well. She is encouraged to follow with her primary care physician outpatient setting and return with worsening symptoms or concerns. She is agreeable to plan all question concerns answered she is discharged home in stable condition. Lab Data Labs: Laboratory Results - last 24 hr 12/10/24 12/10/24 12:40 12:50 WBC 6.2 RBC 4.67 Hgb 13.4 Hct 37.5 MCV 80.3 L MCH 28.7 MCHC 35.7 RDW Std Deviation 37.1 RDW Coeff of [place] 12.7 Plt Count 271 MPV 9.1 Immature Gran % (Auto) 0.500 Neut % (Auto) 79.4 H Lymph % (Auto) 10.2 L Grady % (Auto) 9.4 Eos % (Auto) 0.0 Baso % (Auto) 0.5 Absolute Neuts (auto) 4.9 Absolute Lymphs (auto) 0.63 L Nucleated RBC % 0 PT 12.8 INR 0.9 APTT 30.9 Sodium 130 L Potassium 3.2 L Chloride 96 L Carbon Dioxide 26.0 Anion Gap 8 BUN 5 L Creatinine 0.76 Estim Creat Clear Calc 71.56 Est GFR (MDRD) Af Amer 98 Est GFR (MDRD) Non-Af 81 BUN/Creatinine Ratio 6.6 L Glucose 90 Lactic Acid 0.8 Calcium 8.6 Total Bilirubin 0.50 AST 50 H ALT 26 Alkaline Phosphatase 93 Troponin I High Sens 34 Total Protein 7.1 Albumin 3.3 Globulin 3.8 Albumin/Globulin Ratio 0.9 Urine Color Yellow Urine Clarity Sl. Cloudy Urine pH 6.0 Ur Specific [place] 1.020 Urine Protein 30 H Urine Glucose (UA) Normal Urine Ketones 15 H Urine Occult Blood 50 H Urine Nitrite Negative Urine Bilirubin Negative Urine Urobilinogen Normal Ur Leukocyte Esterase Negative Urine RBC 0-5 SEEN Urine WBC 0 SEEN Ur Squamous Epith Cells 0-5 SEEN Ur Transition Epith Cell 0-5 SEEN Amorphous Sediment 1+ Urine Bacteria 2+ Urine Mucus 0 SEEN Radiography Diagnostic Testing: Clinical Impression(s) from Imaging Studies Chest X-Ray 12/10/24 13:15 IMPRESSION: No acute findings in the chest. Electronically Signed: Sarah Kraft MD at 15:18 EST Reading Location ID and State: [facility] / [place] Tel , Service support , Discharge Plan Triage Chief Complaint: Cough ED Provider: Beau Edmonds Dx/Rx/DC Orders Clinical Impression: Influenza A, COPD exacerbation Prescriptions: New albuterol sulfate 90 mcg/actuation HFA aerosol inhaler 2 puff inhalation Q6H PRN (Reason: shortness of breath or wheezing) Qty: 8.5 0RF prednisone 50 mg tablet 50 mg PO DAILY 5 Days Qty: 5 0RF doxycycline hyclate 100 mg capsule 100 mg PO BID 7 Days Qty: 14 0RF No Action (DME) PEP device See Rx Instructions .ROUTE .MEDSUPPLY Qty: 1 0RF Rx Instructions: with training medical marijuana card 1 ea PO PRN PRN (Reason: Pain) nitroglycerin 0.4 mg tablet, sublingual 0.4 mg sublingual Q5-15M PRN (Reason: chest pain) Qty: 25 3RF diphenhydramine HCl [Benadryl] 25 mg capsule 25 mg PO QHS PRN (Reason: Sleep) aspirin 81 mg tablet,delayed release (DR/EC) 81 mg PO DAILY Qty: 30 0RF omeprazole 20 mg tablet,delayed release (DR/EC) 20 mg PO DAILY PRN cetirizine [Zyrtec] 10 mg tablet 10 mg PO QDAY PRN ezetimibe [Zetia] 10 mg tablet 10 mg PO DAILY Qty: 90 1RF diltiazem HCl [DILT-XR] 120 mg capsule,ext.rel 24h degradable 120 mg PO DAILY metronidazole 0.75 % gel topical albuterol sulfate [Ventolin HFA] 90 mcg/actuation HFA aerosol inhaler 2 puff INHALATION Q6H PRN (Reason: shortness of breath or wheezing) Qty: 18 3RF clotrimazole 10 mg janak 10 mg mucous membrane TID Qty: 90 6RF Stiolto Respimat 2.5-2.5 mcg/actuation mist 2 inh inhalation DAILY Qty: 4 2RF Ozempic 2 mg/dose (8 mg/3 mL) pen injector 2 mg subcut QWEEK Qty: 3 4RF cyclobenzaprine 10 mg tablet 10 mg PO TID PRN (Reason: muscle spasm) Qty: 20 0RF Rx Instructions: Take 1/2-1 tab up to 3 times per day for muscle spasm back. Do not drive or operate equipment or dangerous machinery while using this medication. ergocalciferol (vitamin D2) [Vitamin D2] 1,250 mcg (50,000 unit) capsule 1,250 mcg PO WE Qty: 12 3RF escitalopram oxalate [Lexapro] 10 mg tablet 10 mg PO DAILY Qty: 90 3RF losartan 50 mg tablet 50 mg PO BID Qty: 180 3RF bupropion HCl 200 mg tablet sustained-release 12 hr 200 mg PO DAILY Qty: 90 3RF ondansetron 4 mg tablet,disintegrating 4 mg PO Q8H PRN (Reason: nausea and vomiting) Qty: 10 0RF Rx Instructions: Watch for signs of sedation. Do not drive or operate equipment while using this medication. Primary Care Provider: Leia Thomas Referrals: Leia Thomas MD [Primary Care Provider] - Activity Restrictions/Additional Instructions: Follow-up with your primary care physician outpatient setting. Take antibiotics and steroids as prescribed. Inhaler was sent to your pharmacy as well. You tested positive for influenza A. Return with worsening symptoms or other concerns. Print Language: Mozambican Disposition Disposition: Home, Self Care
[2024-12-10 12:57] VITALS: O2SAT 94
[2024-12-10] MEDS: 0.9% Normal Saline (1000mL) 1,000 ML 999 ML IV ×2 (13:04→14:12)
[2024-12-10 13:05] LABS: Mucous, Urine 0 SEEN /hpf (<or=2+); White Blood Cells 0 SEEN /hpf (0-5)
[2024-12-10 13:14] LABS: Color, Urine Yellow (Yellow); Glucose, Dipstick Normal (Normal); Ketone-Dipstick 15 mg/dl (Negative); Leukocyte Esterase-Dipstick Negative /ul (Negative); Nitrite-Dipstick Negative (Negative); Occult Blood-Urine 50 /ul (Negative); Protein-Dipstick 30 mg/dl (Negative); Urine Bilirubin Dipstick Negative (Negative); Urine Clarity Sl. Cloudy (Clear); Urine Urobilinogen Normal (Normal)
[2024-12-10 13:15] LABS: Absolute Lymphocyte Count 0.63 X10^3/uL (0.83-4.51); Absolute Neutrophil Count 4.9 X10^3/uL (2.0-7.7); Basophil# 0.03 X10^3/uL; Basophil% 0.5 % (0-1); Hematocrit 37.5 % (37-47); Hemoglobin 13.4 g/dL (12.0-15.0); Lymphocyte # 0.63 X10^3/ul (0.83-4.51); Lymphocyte % 10.2 % (19-41); Mean Corp Hgb Conc 35.7 g/dL (32-36); Mean Corpuscular Hgb 28.7 pg (27.0-32.0); Mean Corpuscular Volume 80.3 fL (81-99); Mean Platelet Vol. 9.1 fl (6.2-12.0); Monocyte# 0.58 X10^3/uL; Monocyte% 9.4 % (0-10); NRBC Flagged by Analyzer 0 % (0-5); Neutrophil # 4.92 X10^3/uL (2.7-7.7); Neutrophil % 79.4 % (47-70); Platelet Count 271 K/mm3 (150-450); RBC Distribution Width CV 12.7 % (11.6-14.6); RBC Distribution Width SD 37.1 fl (35.1-43.9); Red Blood Count 4.67 M/mm3 (4.2-5.4); White Blood Count 6.2 K/mm3 (4.4-11.0)
--- NOTE | 2024-12-10 13:15 | RAD_ITS ---
EXAM: XR CHEST, 2 VIEWS CLINICAL INDICATION: sob, cough TECHNIQUE: Frontal and lateral views of the chest. COMPARISON: September 27, 2024, February 10, 2020 FINDINGS: LUNGS AND PLEURAL SPACES: Unremarkable. No consolidation or edema. No pneumothorax. No effusion. HEART: Unremarkable. Cardiac silhouette not enlarged. MEDIASTINUM: Central airways and mediastinal contour are unremarkable. BONES/JOINTS: Stabilization cervical spine hardware partially included similar to prior exam. No acute fracture. SOFT TISSUES: Unremarkable. RAD/Chest PA and Lateral IMPRESSION: No acute findings in the chest. Electronically Signed: Sarah Kraft MD at 15:18 EST ,
[2024-12-10 13:24] LABS: International Normalized Ratio 0.9; Prothrombin Time (Protime)PT. 12.8 SECONDS (11.7-14.9)
[2024-12-10 13:28] LABS: ALB/GLOB Ratio 0.9 RATIO (0.9-2.4); AST(SGOT) 50 U/L (15-37); Alanine Aminotransfer ALT/SGPT 26 U/L (13-56); Albumin, Serum 3.3 g/dL (3.2-5.0); Alkaline Phosphatase 93 U/L (45-117); Anion Gap 8 (5-15); BUN 5 mg/dL (7-18); BUN/Creat Ratio 6.6 RATIO (10-20); Calcium,Total 8.6 mg/dL (8.5-10.1); Chloride 96 mmol/L (98-107); Creatinine, Serum 0.76 mg/dL (0.55-1.02); EST Glomerular Filtration Rate 81 mL/min (>60); Est Glom Filt Rate - Afr Amer 98 mL/min (>60); Estimated Creatinine Clearance 71.56 ml/min; Globulin 3.8 g/dL (2.2-4.2); Glucose 90 mg/dL (74-106); Potassium 3.2 mmol/L (3.5-5.1); Protein, Total 7.1 g/dL (6.4-8.2); Sodium Level 130 mmol/L (136-145); Troponin-I HS 34 pg/mL (3.0-54.0)
[2024-12-10 13:29] LABS: Partial Thromboplast Time 30.9 Seconds (24.1-36.2)
[2024-12-10 13:29] LABS: Bacteria 2+ /hpf (None Seen); Red Blood Cells-Urine 0-5 SEEN /hpf (0-5); Squamous Epithelial Cells - UA 0-5 SEEN /hpf (5-10); Transitional Epithelial - Ur 0-5 SEEN /hpf (0-5)
[2024-12-10 13:30] LABS: Amorphous Sediment 1+
[2024-12-10 13:30] LABS: Lactic Acid 0.8 mmol/L (0.4-1.9)
[2024-12-10] MEDS: Ondansetron 4 MG/2 ML Vial IV (14:06)
[2024-12-10] MEDS: Ibuprofen 200 MG Tablet 400 MG PO (14:06)
[2024-12-10] MEDS: Potassium Chloride Oral Soln 20 MEQ/15 ML UDC 40 MEQ PO (14:11)
[2024-12-10 14:13] VITALS: BP 144/81; PULSE 95; RESP 18; O2SAT 97
[2024-12-10 14:47] VITALS: O2SAT 93
[2024-12-10] MEDS: predniSONE 20 MG Tablet 60 MG PO (15:22)
[2024-12-10 16:09] VITALS: BP 152/82; PULSE 93; RESP 18; TEMP 36.6; O2SAT 95
== END 2024-12-10 16:38 | disposition home or self-care (01) ==
PROVIDERS: Emergency Provider Emergency Medicine; PCP Internal Medicine; Visit Provider Emergency Medicine
DX: J10.1 Influenza due to other identified influenza virus with other respiratory manifestations (principal); J44.1 Chronic obstructive pulmonary disease with (acute) exacerbation; E11.40 Type 2 diabetes mellitus with diabetic neuropathy, unspecified; I10 Essential (primary) hypertension; E78.00 Pure hypercholesterolemia, unspecified; I25.10 Atherosclerotic heart disease of native coronary artery without angina pectoris; Z79.899 Other long term (current) drug therapy; F17.210 Nicotine dependence, cigarettes, uncomplicated; Z86.73 Personal history of transient ischemic attack (TIA), and cerebral infarction without residual deficits; K21.9 Gastro-esophageal reflux disease without esophagitis
CPT/HCPCS: 71046; 80053; 81001; 83605; 84484; 85025; 85610; 85730; 87040; 87086; 87088; 87631; 93005; 96361; 96374; 99284; A4216; J2405

== ENCOUNTER → 2024-12-15 | Outpatient (CLI) | payer MEDICARE, SELFPAY | END | disposition home or self-care (01) | LOC: LABSPEC 15:24 | PROVIDERS: PCP Internal Medicine; Referring Provider Internal Medicine; Visit Provider Internal Medicine | DX: N39.0 Urinary tract infection, site not specified (principal) | CPT/HCPCS: 87086 ==

== ENCOUNTER → 2025-01-10 | Outpatient (CLI) | payer MEDICARE, SELFPAY ==
[2025-01-10 15:23] LABS: Absolute Lymphocyte Count 3.63 X10^3/uL (0.83-4.51); Absolute Neutrophil Count 7.6 X10^3/uL (2.0-7.7); Basophil# 0.08 X10^3/uL; Basophil% 0.6 % (0-1); Eosinophil# 0.25 X10^3/uL; Hematocrit 41.3 % (37-47); Hemoglobin 13.5 g/dL (12.0-15.0); Lymphocyte # 3.63 X10^3/ul (0.83-4.51); Lymphocyte % 28.8 % (19-41); Mean Corp Hgb Conc 32.7 g/dL (32-36); Mean Corpuscular Hgb 28.6 pg (27.0-32.0); Mean Corpuscular Volume 87.5 fL (81-99); Mean Platelet Vol. 8.8 fl (6.2-12.0); Monocyte# 0.78 X10^3/uL; Monocyte% 6.2 % (0-10); NRBC Flagged by Analyzer 0 % (0-5); Neutrophil # 7.64 X10^3/uL (2.7-7.7); Neutrophil % 60.6 % (47-70); Platelet Count 435 K/mm3 (150-450); RBC Distribution Width CV 13.2 % (11.6-14.6); RBC Distribution Width SD 42.2 fl (35.1-43.9); Red Blood Count 4.72 M/mm3 (4.2-5.4); White Blood Count 12.6 K/mm3 (4.4-11.0)
[2025-01-10 16:17] LABS: Erythrocyte Sedimentation Rate 13 mm/hr (0-30)
[2025-01-11 04:55] LABS: ALB/GLOB Ratio 1.3 RATIO (0.9-2.4); AST(SGOT) 23 U/L (<=31); Alanine Aminotransfer ALT/SGPT 10 U/L (<=34); Alkaline Phosphatase 85 U/L (35-104); Anion Gap 14 (5-15); BUN 5 mg/dL (4-19); BUN/Creat Ratio 5.8 RATIO (10-20); CPK Total, Creatine Kinase 60 U/L (24-195); Calcium 9.7 mg/dL (7.6-11.0); Chloride 102 mmol/L (96-108); Creatinine, Serum 0.9 mg/dL (0.6-1.0); EST Glomerular Filtration Rate 75 (>60); Globulin 3.2 g/dL (2.2-4.2); Glucose 72 mg/dL (70-99); Potassium 4.6 mmol/L (3.3-5.1); Protein, Total 7.2 g/dL (5.9-8.4); Sodium Level 140 mmol/L (133-145); Total Bilirubin 0.27 mg/dL (0.00-1.30)
== END | disposition home or self-care (01) ==
LOC: MTLAB 13:13
PROVIDERS: PCP Internal Medicine; Referring Provider Internal Medicine; Visit Provider Internal Medicine
DX: J06.9 Acute upper respiratory infection, unspecified (principal); R52 Pain, unspecified
CPT/HCPCS: 36415; 80053; 82550; 85025; 85652

== ENCOUNTER → 2025-01-23 | Outpatient (CLI) | payer MEDICARE, SELFPAY ==
[2025-01-23 16:08] LABS: Absolute Lymphocyte Count 3.28 X10^3/uL (0.83-4.51); Basophil# 0.06 X10^3/uL; Basophil% 0.6 % (0-1); Eosinophil# 0.11 X10^3/uL; Eosinophils% 1.1 % (0-5); Hematocrit 39.4 % (37-47); Hemoglobin 13.1 g/dL (12.0-15.0); Lymphocyte # 3.28 X10^3/ul (0.83-4.51); Lymphocyte % 32.1 % (19-41); Mean Corp Hgb Conc 33.2 g/dL (32-36); Mean Corpuscular Hgb 28.4 pg (27.0-32.0); Mean Corpuscular Volume 85.3 fL (81-99); Mean Platelet Vol. 9.4 fl (6.2-12.0); Monocyte# 0.76 X10^3/uL; Monocyte% 7.4 % (0-10); NRBC Flagged by Analyzer 0 % (0-5); Neutrophil # 5.96 X10^3/uL (2.7-7.7); Neutrophil % 58.3 % (47-70); Platelet Count 428 K/mm3 (150-450); RBC Distribution Width CV 13.6 % (11.6-14.6); Red Blood Count 4.62 M/mm3 (4.2-5.4); White Blood Count 10.2 K/mm3 (4.4-11.0)
[2025-01-23 16:37] LABS: ALB/GLOB Ratio 1.5 RATIO (0.9-2.4); AST(SGOT) 19 U/L (<=31); Alanine Aminotransfer ALT/SGPT 11 U/L (<=34); Albumin, Serum 3.9 g/dL (3.4-4.8); Alkaline Phosphatase 78 U/L (35-104); Anion Gap 11 (5-15); BUN 9 mg/dL (4-19); BUN/Creat Ratio 10.2 RATIO (10-20); Calcium,Total 9.5 mg/dL (7.6-11.0); Carbon Dioxide 23.8 mmol/L (21.0-32.0); Chloride 104 mmol/L (98-108); Creatinine, Serum 0.89 mg/dL (0.70-1.20); EST Glomerular Filtration Rate 72 (>60); Globulin 2.7 g/dL (2.2-4.2); Glucose 115 mg/dL (70-99); Iron Binding Capacity,Total 376 ug/dL (250-450); Potassium 4.2 mmol/L (3.3-5.1); Protein, Total 6.7 g/dL (5.9-8.4); Sodium Level 139 mmol/L (133-145); Vitamin B12 331 pg/mL (180-914)
[2025-01-23 19:33] LABS: Erythrocyte Sedimentation Rate 22 mm/hr (0-30)
[2025-01-23 19:43] LABS: CRP 6.43 mg/L (0.0-3.0); Iron 82 ug/dL (50-170); Iron Binding Capacity,Unsat 294 ug/dL (228-428); Magnesium 1.9 mg/dL (1.5-2.2); PERCENT IRON SATURATION 21.8 % (13-59)
[2025-01-25 11:09] LABS: ANTINUCLEAR ANTIBODIES DIRECT Negative (Negative)
== END | disposition home or self-care (01) ==
LOC: MTLAB 13:52
PROVIDERS: PCP Internal Medicine; Referring Provider Internal Medicine; Visit Provider Internal Medicine
DX: J06.9 Acute upper respiratory infection, unspecified (principal); R11.2 Nausea with vomiting, unspecified; R52 Pain, unspecified; I10 Essential (primary) hypertension; E53.8 Deficiency of other specified B group vitamins
CPT/HCPCS: 36415; 80053; 82607; 83540; 83550; 83735; 85025; 85652; 86038; 86140; 86225; 86235

== ENCOUNTER → 2025-02-16 | Outpatient (CLI) | payer MEDICARE, SELFPAY ==
--- NOTE | 2025-02-16 17:20 | CT_ITS ---
PROCEDURE: CTA HEAD AND NECK W/ CONTRAST 02/16/2025 REASON FOR EXAM: FREQUENT, INCREASING SIMPSON, DIZZINESS TECHNIQUE: CTA imaging of the head and neck from the aortic arch to the skull vertex with intravenous contrast. Coronal and Sagittal reconstruction series were provided. 3D, 3D post processing, 3D reconstructions, Maximum intensity projection (MIPs) Volume rendering and Shaded surface rendering was provided. CONTRAST: Omnipaque 350 VOLUME: 100 mL Gauge IV One or more dose reduction techniques were used (e.g., Automated exposure control, adjustment of the mA and/or kV according to patient size, use of iterative reconstruction technique). # of known CTs in the past 12 months: 0 # of known Cardiac Nuclear Medicine Studies in the past 12 months: 0 COMPARISON: None FINDINGS: Aortic Arch: Normal size and branching pattern. Mild atherosclerotic plaque. Brachiocephalic and Subclavians: Atherosclerotic calcification without hemodynamically significant stenosis of the proximal brachiocephalic vessels. RIGHT Carotid: Right CCA: Mild calcified and soft plaque. Right ICA: Mild calcified and soft plaque. Maximum stenosis (NASCET): <10 % Right ECA: Unremarkable. LEFT Carotid: Left CCA: Mild calcified and soft plaque. Left ICA: Moderate calcified and soft plaque. Maximum stenosis (NASCET): 30 % Left ECA: Mild calcified and soft plaque. Vertebrals: Codominant. Arise from the subclavians. Both vertebrals form the basilar. RIGHT Vertebral: Unremarkable. LEFT Vertebral: Unremarkable. Anatomy: [place] anatomy is normal. Aneurysm or avm: No intracranial aneurysms or large vascular malformations are identified. Anterior cerebral arteries: Bilateral distal ICAs, MCAs and ACAs are within normal limits. Middle cerebral arteries: Unremarkable. Basilar artery: Unremarkable. Posterior cerebral arteries: Unremarkable. Other major branches of the posterior circulation: Unremarkable. Major venous structures: Unremarkable. Other findings: Neck: No lymphadenopathy. Lungs: Emphysema within the imaged lung apices. Bones: C4-C6 posterior fusion. Moderate degenerative changes of the cervical spine. CT/CTA Head AND Neck W/ Contrast IMPRESSION: Calcified and noncalcified plaque, predominantly at the bifurcations, and more so on the left with up to 30% narrowing by NASCET criteria. Otherwise, no hemodynamically significant stenosis within the anteri or and posterior intracranial and extracranial circulation. Reading [facility]
== END | disposition home or self-care (01) ==
LOC: CT 16:58
PROVIDERS: PCP Internal Medicine; Referring Provider Internal Medicine; Visit Provider Internal Medicine
DX: R51.9 Headache, unspecified (principal); R11.2 Nausea with vomiting, unspecified; G45.9 Transient cerebral ischemic attack, unspecified
CPT/HCPCS: 70496; 70498; Q9967; A4216

== ENCOUNTER 2025-03-02 15:51 | Emergency (ER) | payer MEDICARE, SELFPAY ==
[2025-03-02] VITALS (19 sets, daily range): BP systolic 77–159; BP diastolic 65–110; PULSE 68–95; RESP 9–30; TEMP 36.6–36.8; O2SAT 94–98; BMI 34.6
--- NOTE | 2025-03-02 16:48 | EDS_ITS ---
HPI History of Present Illness Chief Complaint: Upper Extremity Injury Informant: patient and family Narrative Narrative: Presents to ED via EMS mechanical fall. Stepping over a small fence when she slipped on her dog's feces, falling directly on her head and right side. Swelling to the head she takes baby aspirin. Significant right elbow pain. Right knee pain. No back pain. No chest or abdominal pain. Status post 100 mics of fentanyl by EMS. Tetanus 2 years ago. Reports to nasal bone fractures in the past. She has had multiple fractures without any surgical intervention. Tetanus Immunization: <5 years PFSH [facility] Medical History Cervical radiculopathy Fatty liver disease, nonalcoholic Nausea and vomiting Body aches URI (upper respiratory infection) UTI (urinary tract infection) Chest pain Severe headache Obesity Diabetes Stress incontinence Tachycardia Cardiology follow-up encounter HPV (human papilloma virus) anogenital infection COVID-19 (01/04/23) Urethral stenosis Wears dentures Cancer Marijuana use Rash Ambulates with cane Bladder disease High cholesterol TIA (transient ischemic attack) Gastric reflux History of IBS Smoker CPAP (continuous positive airway pressure) dependence Chronic cough COPD (chronic obstructive pulmonary disease) Leg cramps History of pain when walking History of echocardiogram History of stress test Hiatal hernia Vitamin D deficiency Vascular disease History of stomach ulcers Osteoporosis Neuropathy Liver disease IBS (irritable bowel syndrome) Heart disease H/O emotional problems Chronic bronchitis Breast lump Bone fracture Arthritis Anemia Nonobstructive atherosclerosis of coronary artery Essential (primary) hypertension Obese Incidental lung nodule, > 3mm and < 8mm Tobacco abuse MELYSSA (obstructive sleep apnea) Trigeminal neuralgia Esophageal reflux Dysmetabolic syndrome DDD (degenerative disc disease), cervical Migraine Asthma DJD (degenerative joint disease) Chronic obstructive lung disease Hyperlipidemia Depression Home Medications ?Medication ?Instructions ?Recorded ?Last Taken ?Type PEP device #1 ea 02/27/20 Unknown Rx nitroglycerin 0.4 mg sublingual 0.4 mg sublingual Q5-1 5M PRN chest 01/23/23 Unknown Rx tablet pain #25 tabs aspirin 81 mg tablet,delayed 81 mg PO DAILY #30 tabs 0 05/21/23 06/08/23 Rx release omeprazole 20 mg tablet,delayed 20 mg PO DAILY PRN hea rtburn 03/22/24 Unknown History release ergocalciferol (vitamin D2) 1,250 1,250 mcg PO WE #12 caps 09/19/24 Unknown Rx mcg (50,000 unit) capsule (Vitamin D2) escitalopram oxalate 10 mg tablet 10 mg PO DAILY #90 t abs 09/19/24 Unknown Rx (Lexapro) losartan 50 mg tablet 50 mg PO BID #180 tabs 09/19 Unknown Rx cetirizine 10 mg tablet (Zyrtec) 10 mg PO QDAY PRN all ergy symptoms 10/05/24 Unknown History ezetimibe 10 mg tablet (Zetia) 10 mg PO DAILY #90 tabs 10/05/24 Unknown Rx bupropion HCl 200 mg tablet,12 hr 200 mg PO DAILY #90 ea 10/31/24 Unknown Rx sustained-release albuterol sulfate 90 mcg/actuation 2 puff inhalation Q 6H PRN 12/10/24 Unknown Rx aerosol inhaler shortness of breath or wheez ing #8.5 grams ondansetron 4 mg disintegrating 4 mg PO Q8H PRN nausea and 01/23/25 Unknown Rx tablet vomiting #10 tabs trazodone 50 mg tablet 25 mg (1/2 x 50 mg) PO QDAY PRN 01/23/25 Unknown Rx sleep #30 tabs albuterol sulfate 90 mcg/actuation 2 puff inhalation Q 6H PRN 03/01/25 Unknown Rx aerosol inhaler (Ventolin HFA) shortness of breath or wheezing #18 grams morphine 15 mg immediate release 15 mg PO BID PRN pain 5 days #10 03/02/25 Unknown Rx tablet tabs Allergy/AdvReac Type Severity Reaction Status Date / Time acetaminophen Allergy Severe Hives Verified 03/02/25 16:00 hydrocodone bitartrate (From Allergy Severe Hives Verified 03/02/25 16:00 Vicodin) hydromorphone HCl (From Allergy Severe Hives, Verified 03/02/25 16:00 Dilaudid) feels like on fire Penicillins Allergy Severe Anaphylaxis Verified 03/02/25 16:00 propoxyphene napsylate (From Allergy Severe Hives Verified 03/02/25 16:00 Darvocet-N 100) Sulfa (Sulfonamide Allergy Severe Hives Verified 03/02/25 16:00 Antibiotics) adhesive Allergy Rash Verified 03/02/25 16:00 budesonide (From Symbicort) Allergy Angioedema Verified 03/02/25 16:00 cephalexin monohydrate (From Allergy Rash Verified 03/02/25 16:00 Keflex) formoterol (From Symbicort) Allergy Angioedema Verified 03/02/25 16:00 Heparin Analogues Allergy severe Verified 03/02/25 16:00 bruising and rash latex Allergy Rash Verified 03/02/25 16:00 levofloxacin (From Levaquin) Allergy Swelling, Verified 03/02/25 16:00 rash oxycodone HCl (From Percocet) Allergy Hives Verified 03/02/25 16:00 oxytocin Allergy Hives Verified 03/02/25 16:00 Family History Mother Cancer Father Cancer Myocardial infarction Sister Cancer Other Alcoholism Anxiety Arthritis Blood clot associated with vein wall inflammation Breast cancer Cervical cancer Depression Melanoma Mental disorder Osteoporosis Surgical History History of cystoscopy H/O dilation of urethra History of repair of hiatal hernia History of cardiac catheterization History of sinus surgery History of cervical spinal surgery History of left heart catheterization (01/25/18) History of tubal ligation History of appendectomy History of cholecystectomy Social History Smoking Status: Former smoker Tobacco: How many years used: 54 second hand exposure: Yes alcohol intake: current alcohol intake frequency: holidays/special occasions only substance use type: does not use, former substance user Date of last use: 2004 and crack/cocaine caffeine: Yes what type of physical activity do you participate in: none ROS ROS ED Constitutional Constitutional ED: Denies chills, fever(s) or sweats ENT ENT ED: Reports other Details: Facial pain ; Denies sore throat Cardiovascular Cardiovascular: Denies chest pain, leg edema, palpitations or racing heartbeat Respiratory/Chest Respiratory/Chest: Denies cough, dyspnea or dyspnea on exertion Gastrointestinal Gastrointestinal: Denies abdominal pain, diarrhea, nausea or vomiting Genitourinary Genitourinary ED: Denies dysuria, hematuria or urinary frequency Musculoskeletal Musculoskeletal: Reports extremity pain and other Details: Right elbow right knee pain. ; Denies back pain or neck pain Integumentary Reports Abrasions and wounds Neurologic Neurologic: Denies headache(s), paresthesias or weakness EXAM Physical Exam Const Vital Signs: 03/02/25 15:52 Temperature 98.3 F Temperature Source Oral Pulse Rate 85 Respiratory Rate 24 H Blood Pressure 121/85 H Blood Pressure Mean 97 Pulse Ox 97 Oxygen Delivery Method Room Air Positive well nourished and well developed Constitutional Narrative: GCS 15. Discomfort with movement of right upper arm. General Appearance ED: well developed and NAD HEENT Reports moist mucous membranes HEENT Narrative: Left frontal hematoma abrasions superficial only nose no septal hematoma. Abrasion right upper outer lip. No trismus of the jaw. normocephalic Eyes General Eye ED: Yes normal appearance of both eyes Neck full ROM Chest Wall inspection of chest normal and palpation of chest normal Chest: Negative for tenderness Resp normal respiratory effort and normal air movement Effort and Inspection: symmetric chest movement; Negative for respiratory distress Cardio regular rate, regular rhythm and no murmurs Peripheral Pulses: pulses 2+ throughout GI normal to inspection, nondistended, normoactive bowel sounds and non-tender Palpation: Negative for guarding or rebound tenderness present Extremity Extremity Narrative: Left upper extremity: Full range of motion without any pain. Pulse intact distally. Right upper extremity: Vacuumed splint applied to elbow, remove for evaluation. No shoulder tenderness. Soft compartments upper arm tender palpation right elbow proximal forearm no clear deformities. No wrist tenderness. No hand tenderness. Left lower extremity: Negative logroll soft compartments pulse intact distally. Right lower extremity: Negative logroll: Patellar abrasion noted with tenderness. No deformities. Soft compartments. Pulse intact distally. General Extremety ED: Yes tenderness; Negative for edema General Extremity: Negative for edema Neuro oriented x3, CN's II-XII intact bilaterally and no sensory deficits noted Sensorium / Orientation: awake and alert Skin no rashes or lesions noted and no wounds MDM MDM MDM Narrative Medical decision making narrative: Interventions / MDM: Differential diagnosis: Facial contusion, elbow fracture, dislocation Diagnosis considered but do not suspect: Intracranial hemorrhage however CT negative. My EKG interpretation: N/A Imaging independently reviewed and interpreted by myself: CT brain/face/cervical spine: No intracranial hemorrhage no fractures. Hardware intact. Soft tissue swelling of the face. Also read by radiology. Right knee x-ray 2 views: No fracture or dislocation. Right elbow x-ray 2 views: Proximal ulnar fracture dislocation of the radial head CT right elbow: Acute comminuted fracture proximal ulnar extending to the coronoid posterior dislocation of the radiocapitellar joint. In addition fra cture of the anterior aspect of the radial head. External documents reviewed: N/A Test considered but not ordered:N/A ED course: Mechanical fall head injury no loss consciousness. Hematoma in the face. Right elbow right knee injuries. Trauma scan head face neck. X-ray right elbow right knee. Additional IV fentanyl ordered for symptom control. Trauma scans head neck and face no fracture or intracranial hemorrhage. Knee x- ray negative. Right elbow proximal ulna fracture with radial capitellar posterior dislocation consistent with Galeazzi fracture. I discussed with on-call orthopedist Dr. Urena, treatment would be surgical intervention for relocation. Recommended brace with posterior splint in position of comfort around [address] if possible[address] Request CT of the elbow for surgical planning and to follow-up with him in the morning. Discussed with the patient she was given additional fentanyl in the ED prior to splinting. Splinting: lead assistant manager. Nylon sleeve was placed, Kerlix dressing for padding. 5 inch posterior splint was placed in position comfort more in an extended position. Jhonatan wrap to secure. Patient tolerated procedure well. CT was obtained noting the fracture above's with dislocation. Patient provided a sling. Patient had multiple opiate allergies. Discomfort did not feel tramadol would help her. She states previously was on morphine sul fate tabs with her neck issues prior to her surgery. She was provided liquid morphine IR of 10 mg in the ED. I considered admission for pain control however she states she wanted to go home and follow-up. Meds to beds pharmacy here does not dispense morphine. Patient family did call [facility] locally who had supplies and was still open. Morphine sulfate immediate release prescription sent to pharmacy to use twice a day. Information for follow-up given tomorrow with Dr. Urena. Re-evaluation: stable Disposition discussed with patient/family/significant other: Patient and family Case discussed with consulting clinician: Orthopedics This note was generated with [employer] software. It may contain incorrect words, spelling, and punctuation that were not noted in checking the note before signing. Discharge Plan Triage Chief Complaint: Upper Extremity Injury ED Provider: Herman Gale Dx/Rx/DC Orders Clinical Impression: Closed fracture of right elbow, Dislocation of elbow, right, closed, Contusion of face, Contusion of knee, right Instructions: ED Contusion, Lower Extremity, ED Elbow Fracture, ED Facial Contusion Prescriptions: New morphine 15 mg tablet 15 mg PO BID PRN (Reason: pain) 5 Days Qty: 10 0RF No Action (DME) PEP device See Rx Instructions .ROUTE .MEDSUPPLY Qty: 1 0RF Rx Instructions: with training nitroglycerin 0.4 mg tablet, sublingual 0.4 mg sublingual Q5-15M PRN (Reason: chest pain) Qty: 25 3RF aspirin 81 mg tablet,delayed release (DR/EC) 81 mg PO DAILY Qty: 30 0RF omeprazole 20 mg tablet,delayed release (DR/EC) 20 mg PO DAILY PRN (Reason: heartburn) cetirizine [Zyrtec] 10 mg tablet 10 mg PO QDAY PRN (Reason: allergy symptoms) ezetimibe [Zetia] 10 mg tablet 10 mg PO DAILY Qty: 90 1RF ondansetron 4 mg tablet,disintegrating 4 mg PO Q8H PRN (Reason: nausea and vomiting) Qty: 10 1RF Rx Instructions: Watch for signs of sedation. Do not drive or operate equipment while using this medication. trazodone 50 mg tablet 25 mg PO QDAY PRN (Reason: sleep) Qty: 30 1RF Rx Instructions: Take one-half (25 mg) to one tab (50 mg) 1 hour before bedtime. albuterol sulfate 90 mcg/actuation HFA aerosol inhaler 2 puff inhalation Q6H PRN (Reason: shortness of breath or wheezing) Qty: 8.5 0RF ergocalciferol (vitamin D2) [Vitamin D2] 1,250 mcg (50,000 unit) capsule 1,250 mcg PO WE Qty: 12 3RF escitalopram oxalate [Lexapro] 10 mg tablet 10 mg PO DAILY Qty: 90 3RF losartan 50 mg tablet 50 mg PO BID Qty: 180 3RF bupropion HCl 200 mg tablet sustained-release 12 hr 200 mg PO DAILY Qty: 90 3RF albuterol sulfate [Ventolin HFA] 90 mcg/actuation HFA aerosol inhaler 2 puff INHALATION Q6H PRN (Reason: shortness of breath or wheezing) Qty: 18 1RF Primary Care Provider: Leia Thomas Referrals: Leia Thomas MD [Primary Care Provider] - Gurwinder Urena MD [Med Staff - Active Staff] - 1 Day Activity Restrictions/Additional Instructions: Fracture or dislocation of your elbow. Your CT head face and neck are negative. Right knee x-ray negative. Discussed with Dr. Dockery in the ED. Call office tomorrow to be seen. Print Language: Norwegian Disposition Disposition: Home, Self Care Discharge Date/Time: 03/02/25 21:09
[2025-03-02] MEDS: fentaNYL 100 MCG/2 ML Ampul 50 MCG IV ×2 (16:51→18:36)
--- NOTE | 2025-03-02 17:04 | CT_ITS ---
PROCEDURE: BRAIN/HEAD WITHOUT CONTRAST 03/02/2025 REASON FOR EXAM: INJURY TECHNIQUE: Head CT without intravenous contrast. Coronal and Sagittal reconstruction series were provided. One or more dose reduction techniques were used (e.g., Automated exposure control, adjustment of the mA and/or kV according to patient size, use of iterative reconstruction technique. FINDINGS: Brain: Normal CSF Spaces: Normal Sinuses/Mastoids: Clear at visualized levels Bones: Unremarkable. Moderate left frontal scalp hematoma. CT/Brain/Head without Contrast IMPRESSION: Moderate left frontal scalp hematoma but no acute intracranial hemorrhage. Reading Location: [id number]
--- NOTE | 2025-03-02 17:04 | CT_ITS ---
PROCEDURE: SINUS/FACIAL BONE REASON FOR EXAM: INJURY TECHNIQUE: CT of the paranasal sinuses without contrast. Coronal and Sagittal reconstruction series were provided. One or more dose reduction techniques were used (e.g., Automated exposure control, adjustment of the mA and/or kV according to patient size, use of iterative reconstruction technique). COMPARISON: None. FINDINGS: Frontal: Unremarkable. Ethmoid: Unremarkable. Sphenoid: Unremarkable. Maxillary: No opacification or air-fluid levels. Defects within the medial wall of the maxillary sinus bilaterally possibly related to prior surgery. Turbinates: Unremarkable. Nasal Septum: Slight deviation of the nasal septum to the right Mastoids/Middle Ears: Unremarkable. No acute facial fracture. CT/Sinus/Facial Bone IMPRESSION: No acute facial fracture. Reading Location: [id number]
--- NOTE | 2025-03-02 17:04 | CT_ITS ---
PROCEDURE: SPINE CERVICAL WITHOUT CONTRAS 03/02/2025 REASON FOR EXAM: INJURY TECHNIQUE: Cervical spine CT without contrast. Coronal and Sagittal reconstruction series were provided. One or more dose reduction techniques were used (e.g., Automated exposure control, adjustment of the mA and/or kV according to patient size, use of iterative reconstruction technique FINDINGS: Alignment: Status post discectomy interbody fusion with bony bridging and posterior fixation at C5/C6. Status post posterior fixation at C4/C5 with anatomic alignment. Straightening of the normal lordotic curvature. Vertebrae: No acute fracture. Soft Tissues: Unremarkable. Other: CT/Spine Cervical without Contras IMPRESSION: No acute fracture or subluxation. Postsurgical changes and degenerative disc disease as described above. Reading Location: [id number]
--- NOTE | 2025-03-02 17:22 | RAD_ITS ---
EXAM: Right elbow CLINICAL HISTORY: Trauma, injury, pain COMPARISON: None TECHNIQUE: Two-view FINDINGS: Acute comminuted fracture of the proximal ulna just distal to the olecranon with a fracture line extending proximally towards the coronoid process. Posterior dislocation of the radiocapitellar joint. Splint. RAD/Elbow 2 Views IMPRESSION: Acute comminuted fracture of the proximal ulna. Posterior dislocation of the radiocapitellar joint. Reading Location: [id number]
--- NOTE | 2025-03-02 17:22 | RAD_ITS ---
PROCEDURE: KNEE 1 OR 2 VIEWS 03/02/2025 REASON FOR EXAM: INJURY TECHNIQUE: 2 view(s) of the right knee FINDINGS: Bones: No fracture. No suspicious bone lesion. Joints: Normal alignment. . Effusion: No effusion. Soft tissues: Soft tissues are unremarkable. Other: RAD/Knee 1 or 2 Views IMPRESSION: NO EFFUSION ACUTE FRACTURE OR DISLOCATION. Reading Location: [id number]
--- NOTE | 2025-03-02 19:15 | CT_ITS ---
PROCEDURE: EXTREMITY UPPER WITHOUT CONTRA 03/02/2025 REASON FOR EXAM: FRACTURE TECHNIQUE: Axial CT images of the right elbow obtained without intravenous contrast. Coronal and Sagittal reconstruction series were provided. One or more dose reduction techniques were used (e.g., Automated exposure control, adjustment of the mA and/or kV according to patient size, use of iterative reconstruction technique COMPARISON: X-ray earlier today FINDINGS: Bones: Acute comminuted fracture of the proximal ulna with extension proximally into the coronoid process which is fractured. Joints: Acute posterior dislocation of the radiocapitellar joint with a comminuted fracture of the anterior aspect of the radial head. Soft Tissues: Unremarkable. CT/Extremity Upper without Contra IMPRESSION: Acute comminuted fracture of the proximal ulna extending through the coronoid p rocess which is fracture. Acute posterior dislocation of the radiocapitellar joint with a comminuted frac ture of the anterior aspect of the radial head. Reading Location: [id number]
[2025-03-02] MEDS: morphine (oral solution) 10MG/0.5ML Syringe 10 MG PO (20:00)
--- NOTE | 2025-03-02 21:21 | CON.PCM.OR_ITS ---
HPI Consult Data Date of Consult: 03/02/25 HPI Narrative HPI Narrative: BRITNEY NICOLE, is a 64 F who presents with right elbow fracture monteggia. called by ED doc at 608pm. Closed and nam. [facility] Medical History Cervical radiculopathy Fatty liver disease, nonalcoholic Nausea and vomiting Body aches URI (upper respiratory infection) UTI (urinary tract infection) Chest pain Severe headache Obesity Diabetes Stress incontinence Tachycardia Cardiology follow-up encounter HPV (human papilloma virus) anogenital infection COVID-19 (01/04/23) Urethral stenosis Wears dentures Cancer Marijuana use Rash Ambulates with cane Bladder disease High cholesterol TIA (transient ischemic attack) Gastric reflux History of IBS Smoker CPAP (continuous positive airway pressure) dependence Chronic cough COPD (chronic obstructive pulmonary disease) Leg cramps History of pain when walking History of echocardiogram History of stress test Hiatal hernia Vitamin D deficiency Vascular disease History of stomach ulcers Osteoporosis Neuropathy Liver disease IBS (irritable bowel syndrome) Heart disease H/O emotional problems Chronic bronchitis Breast lump Bone fracture Arthritis Anemia Nonobstructive atherosclerosis of coronary artery Essential (primary) hypertension Obese Incidental lung nodule, > 3mm and < 8mm Tobacco abuse MELYSSA (obstructive sleep apnea) Trigeminal neuralgia Esophageal reflux Dysmetabolic syndrome DDD (degenerative disc disease), cervical Migraine Asthma DJD (degenerative joint disease) Chronic obstructive lung disease Hyperlipidemia Depression Home Medications ?Medication ?Instructions ?Recorded ?Last Taken ?Type PEP device #1 ea 02/27/20 Unknown Rx nitroglycerin 0.4 mg sublingual 0.4 mg sublingual Q5-1 5M PRN chest 01/23/23 Unknown Rx tablet pain #25 tabs aspirin 81 mg tablet,delayed 81 mg PO DAILY #30 tabs 0 05/21/23 06/08/23 Rx release omeprazole 20 mg tablet,delayed 20 mg PO DAILY PRN hea rtburn 03/22/24 Unknown History release ergocalciferol (vitamin D2) 1,250 1,250 mcg PO WE #12 caps 09/19/24 Unknown Rx mcg (50,000 unit) capsule (Vitamin D2) escitalopram oxalate 10 mg tablet 10 mg PO DAILY #90 t abs 09/19/24 Unknown Rx (Lexapro) losartan 50 mg tablet 50 mg PO BID #180 tabs 09/19 Unknown Rx cetirizine 10 mg tablet (Zyrtec) 10 mg PO QDAY PRN all ergy symptoms 10/05/24 Unknown History ezetimibe 10 mg tablet (Zetia) 10 mg PO DAILY #90 tabs 10/05/24 Unknown Rx bupropion HCl 200 mg tablet,12 hr 200 mg PO DAILY #90 ea 10/31/24 Unknown Rx sustained-release albuterol sulfate 90 mcg/actuation 2 puff inhalation Q 6H PRN 12/10/24 Unknown Rx aerosol inhaler shortness of breath or wheez ing #8.5 grams ondansetron 4 mg disintegrating 4 mg PO Q8H PRN nausea and 01/23/25 Unknown Rx tablet vomiting #10 tabs trazodone 50 mg tablet 25 mg (1/2 x 50 mg) PO QDAY PRN 01/23/25 Unknown Rx sleep #30 tabs albuterol sulfate 90 mcg/actuation 2 puff inhalation Q 6H PRN 03/01/25 Unknown Rx aerosol inhaler (Ventolin HFA) shortness of breath or wheezing #18 grams morphine 15 mg immediate release 15 mg PO BID PRN pain 5 days #10 03/02/25 Unknown Rx tablet tabs Allergy/AdvReac Type Severity Reaction Status Date / Time acetaminophen Allergy Severe Hives Verified 03/02/25 16:00 hydrocodone bitartrate (From Allergy Severe Hives Verified 03/02/25 16:00 Vicodin) hydromorphone HCl (From Allergy Severe Hives, Verified 03/02/25 16:00 Dilaudid) feels like on fire Penicillins Allergy Severe Anaphylaxis Verified 03/02/25 16:00 propoxyphene napsylate (From Allergy Severe Hives Verified 03/02/25 16:00 Darvocet-N 100) Sulfa (Sulfonamide Allergy Severe Hives Verified 03/02/25 16:00 Antibiotics) adhesive Allergy Rash Verified 03/02/25 16:00 budesonide (From Symbicort) Allergy Angioedema Verified 03/02/25 16:00 cephalexin monohydrate (From Allergy Rash Verified 03/02/25 16:00 Keflex) formoterol (From Symbicort) Allergy Angioedema Verified 03/02/25 16:00 Heparin Analogues Allergy severe Verified 03/02/25 16:00 bruising and rash latex Allergy Rash Verified 03/02/25 16:00 levofloxacin (From Levaquin) Allergy Swelling, Verified 03/02/25 16:00 rash oxycodone HCl (From Percocet) Allergy Hives Verified 03/02/25 16:00 oxytocin Allergy Hives Verified 03/02/25 16:00 Family History Mother Cancer Father Cancer Myocardial infarction Sister Cancer Other Alcoholism Anxiety Arthritis Blood clot associated with vein wall inflammation Breast cancer Cervical cancer Depression Melanoma Mental disorder Osteoporosis Surgical History History of cystoscopy H/O dilation of urethra History of repair of hiatal hernia History of cardiac catheterization History of sinus surgery History of cervical spinal surgery History of left heart catheterization (01/25/18) History of tubal ligation History of appendectomy History of cholecystectomy Social History Smoking Status: Former smoker Tobacco: How many years used: 54 second hand exposure: Yes alcohol intake: current alcohol intake frequency: holidays/special occasions only substance use type: does not use, former substance user Date of last use: 2004 and crack/cocaine caffeine: Yes what type of physical activity do you participate in: none Vital Signs Vital Signs Vital Signs: 03/02/25 15:52 03/02/25 16:31 03/02/25 16:45 Temperature 98.3 F Temperature Source Oral Pulse Rate 85 87 81 Respiratory Rate 24 H 10 L 15 Blood Pressure 121/85 H 147/110 H Blood Pressure Mean 97 119 Pulse Ox 97 97 94 Oxygen Delivery Method Room Air 03/02/25 17:15 03/02/25 17:17 03/02/25 17:30 Temperature Temperature Source Pulse Rate 81 68 Respiratory Rate 15 9 L Blood Pressure 159/72 H 140/84 H Blood Pressure Mean 98 98 Pulse Ox 96 95 Oxygen Delivery Method 03/02/25 17:45 03/02/25 18:00 03/02/25 18:01 Temperature Temperature Source Pulse Rate 70 82 85 Respiratory Rate 13 17 18 Blood Pressure 100/76 139/81 H Blood Pressure Mean 81 100 Pulse Ox 95 94 95 Oxygen Delivery Method 03/02/25 18:15 03/02/25 18:30 03/02/25 18:31 Temperature Temperature Source Pulse Rate 76 79 81 Respiratory Rate 16 30 H 17 Blood Pressure 77/65 L 111/83 H Blood Pressure Mean 71 94 Pulse Ox 95 98 95 Oxygen Delivery Method 03/02/25 18:31 03/02/25 18:39 03/02/25 18:45 Temperature Temperature Source Pulse Rate 84 91 Respiratory Rate 16 29 H Blood Pressure 111/83 H 111/83 H Blood Pressure Mean 94 92 Pulse Ox 96 96 Oxygen Delivery Method 03/02/25 19:00 03/02/25 19:15 03/02/25 19:30 Temperature Temperature Source Pulse Rate 77 85 95 Respiratory Rate 25 H 17 18 Blood Pressure Blood Pressure Mean Pulse Ox 96 Oxygen Delivery Method 03/02/25 20:00 03/02/25 21:08 Temperature 97.9 F Temperature Source Pulse Rate 85 88 Respiratory Rate 18 14 Blood Pressure 128/76 H Blood Pressure Mean 93 Pulse Ox 96 Oxygen Delivery Method Weight Weight: 183 lb 3.266 oz Body Mass Index (BMI) 34.6 Imaging Radiology Impression Brain CT 03/02/25 17:04 IMPRESSION: Moderate left frontal scalp hematoma but no acute intracranial hemorrhage. Reading Location: [facility] Cervical Spine CT 03/02/25 17:04 IMPRESSION: No acute fracture or subluxation. Postsurgical changes and degenerative disc disease as described above. Reading Location: [facility] Facial/Sinus 03/02/25 17:04 IMPRESSION: No acute facial fracture. Reading Location: [facility] Elbow X-Ray 03/02/25 17:22 IMPRESSION: Acute comminuted fracture of the proximal ulna. Posterior dislocation of the radiocapitellar joint. Reading Location: [facility] Knee X-Ray 03/02/25 17:22 IMPRESSION: NO EFFUSION ACUTE FRACTURE OR DISLOCATION. Reading Location: [facility] Upper Extremity CT 03/02/25 19:15 IMPRESSION: Acute comminuted fracture of the proximal ulna extending through the coronoid process which is fracture. Acute posterior dislocation of the radiocapitellar joint with a comminuted fracture of the anterior aspect of the radial head. Reading Location: [id number] Assessment & Plan Assessment/Plan (1) Closed fracture of right elbow: PLAN: 64 F with right elbow monteggia fracture. Acute comminuted fracture of the proximal ulna. Posterior dislocation of the radiocapitellar joint with com minuted radial head. Recommend splint in position of comfort 45 degree ok and get CT. Reviewed. Will need orif olecranon fracture and radial head arthoplasty. Asked to see the patient tomorrow in clinic to arrange. Asked to ensure PIN nerve functioning. ED doc understood and in agreement with the plan.
== END 2025-03-02 21:09 | disposition home or self-care (01) ==
PROVIDERS: Emergency Provider Emergency Medicine; PCP Internal Medicine; Referring Provider Emergency Medicine; Visit Provider Emergency Medicine
DX: S52.041A Displaced fracture of coronoid process of right ulna, initial encounter for closed fracture (principal); J44.9 Chronic obstructive pulmonary disease, unspecified; E11.40 Type 2 diabetes mellitus with diabetic neuropathy, unspecified; S00.03XA Contusion of scalp, initial encounter; S80.01XA Contusion of right knee, initial encounter; W01.0XXA Fall on same level from slipping, tripping and stumbling without subsequent striking against object, initial encounter; I10 Essential (primary) hypertension; K21.9 Gastro-esophageal reflux disease without esophagitis; Z87.891 Personal history of nicotine dependence; Z79.891 Long term (current) use of opiate analgesic; S52.121A Displaced fracture of head of right radius, initial encounter for closed fracture; E78.00 Pure hypercholesterolemia, unspecified; I25.10 Atherosclerotic heart disease of native coronary artery without angina pectoris; Z79.51 Long term (current) use of inhaled steroids; S00.31XA Abrasion of nose, initial encounter; S00.511A Abrasion of lip, initial encounter; S52.271A Monteggia's fracture of right ulna, initial encounter for closed fracture
CPT/HCPCS: 70450; 70486; 72125; 73070; 73200; 73560; 96374; 96376; 99285

== ENCOUNTER 2025-03-08 10:55 | Day surgery (SDC) | payer MEDICARE, SELFPAY ==
--- NOTE | 2025-03-03 16:50 | PAT.ANE_ITS ---
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 When Was Last Pacemaker Check QUESTION #4 FULL TEXT: You/Your Family Experience fever (hyperthermia) with Anesthesia Last Oral Intake Last Oral intake: Last Oral Intake NPO since Meds taken in AM with sips of water? 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 Female Yes 03/03/25 16:14 HX of Motion Sickness Yes 03/03/25 16:14 HX of N/V After Surgery No 03/03/25 16:14 Non-Smoker Yes 03/03/25 16:14 Duration of Surgery greater Yes 03/03/25 16:14 than 60 minutes Number of Risk Factors 4 03/03/25 16:14 PONV Score Severe Risk 03/03/25 16:14 Height & Weight Height & Weight: Anesthesia: Height & Weight Height 5 ft 1 in 03/03/25 08:02 Respiratory Assessment Respiratory Assessment - wastewater plant civil engineer: Respiratory Tract Infection Hx - wastewater plant civil engineer Hx Respiratory Tract Infection No 03/03/25 16:14 STOP Sleep Apnea STOP Sleep Apnea - wastewater plant civil engineer: STOP Sleep Apnea - wastewater plant civil engineer Hx Hypertension Yes: CONTROLLED WITH MED 03/03/25 16:14 Hx Sleep Apnea Yes 03/03/25 16:14 CPAP No 03/03/25 16:14 BIPAP No 03/03/25 16:14 Do you snore loudly (louder than talking or can be heard Do you often feel tired/ fatigued/ sleepy during daytime? Has anyone observed you stop breathing during sleep? STOP Results Positive 03/03/25 16:14 QUESTION #5 FULL TEXT : Do you snore loudly (louder than talking or can be heard through closed doors)? 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 Specify any problems Hx of Preganancy in last 3 No 03/03/25 16:14 Months Nurse Filling Out Transfusion DSCHRIBER 03/03/25 16:14 & Questions: Date: 03/03/25 03/03/25 16:14 Time: 16:15 03/03/25 16:14 Patient unable to answer at this time (ie. confused, unrespo /Reproduction History /Reproductive History - wastewater plant civil engineer: /Reproductive Hx- wastewater plant civil engineer Hx Now No 03/03/25 16:14 Gestational Age (in weeks): EDC: Hx Hx Para Hx Section SAB No 03/03/25 16:14 PFSH Medical History (Updated 03/03/25 @ 16:28 by Shannan Pedro) Abrasion Fatty liver Low iron Restless legs Back pain Injury of head and neck TIA (transient ischemic attack) Syncope Dietary restriction History of hiatal hernia Former smoker Cervical radiculopathy Fatty liver disease, nonalcoholic Nausea and vomiting Body aches URI (upper respiratory infection) UTI (urinary tract infection) Severe headache Obesity Diabetes Stress incontinence Tachycardia Cardiology follow-up encounter HPV (human papilloma virus) anogenital infection Chest pain COVID-19 (01/04/23) Urethral stenosis Wears dentures Cancer Marijuana use Ambulates with cane High cholesterol TIA (transient ischemic attack) Gastric reflux History of IBS CPAP (continuous positive airway pressure) dependence Chronic cough COPD (chronic obstructive pulmonary disease) Leg cramps History of pain when walking History of echocardiogram History of stress test Vitamin D deficiency Vascular disease History of stomach ulcers Osteoporosis Neuropathy Liver disease IBS (irritable bowel syndrome) Arthritis Nonobstructive atherosclerosis of coronary artery Essential (primary) hypertension Incidental lung nodule, > 3mm and < 8mm Tobacco abuse MELYSSA (obstructive sleep apnea) Trigeminal neuralgia Dysmetabolic syndrome DDD (degenerative disc disease), cervical Asthma DJD (degenerative joint disease) Chronic obstructive lung disease Hyperlipidemia Depression Home Medications ?Medication ?Instructions ?Recorded ?Last Taken ?Type PEP device #1 ea 02/27/20 Unknown Rx nitroglycerin 0.4 mg sublingual 0.4 mg sublingual Q5-1 5M PRN chest 01/23/23 Unknown Rx tablet pain #25 tabs aspirin 81 mg tablet,delayed 81 mg PO DAILY #30 tabs 0 05/21/23 06/08/23 Rx release omeprazole 20 mg tablet,delayed 20 mg PO DAILY heartbu rn 03/22/24 Unknown History release ergocalciferol (vitamin D2) 1,250 1,250 mcg PO WE #12 caps 09/19/24 Unknown Rx mcg (50,000 unit) capsule (Vitamin D2) losartan 50 mg tablet 50 mg PO BID #180 tabs 09/19 Unknown Rx cetirizine 10 mg tablet (Zyrtec) 10 mg PO QDAY PRN all ergy symptoms 10/05/24 Unknown History ezetimibe 10 mg tablet (Zetia) 10 mg PO DAILY #90 tabs 10/05/24 Unknown Rx bupropion HCl 200 mg tablet,12 hr 200 mg PO DAILY #90 ea 10/31/24 Unknown Rx sustained-release albuterol sulfate 90 mcg/actuation 2 puff inhalation Q 6H PRN 12/10/24 Unknown Rx aerosol inhaler shortness of breath or wheez ing #8.5 grams ondansetron 4 mg disintegrating 4 mg PO Q8H PRN nausea and 01/23/25 Unknown Rx tablet vomiting #10 tabs trazodone 50 mg tablet 25 mg (1/2 x 50 mg) PO QDAY PRN 01/23/25 Unknown Rx sleep #30 tabs morphine 15 mg immediate release 15 mg PO BID PRN pain 5 days #10 03/02/25 Unknown Rx tablet tabs escitalopram oxalate 10 mg tablet 10 mg PO QHS 5 Unknown History (Lexapro) semaglutide 2 mg/dose (8 mg/3 mL) 2 mg subcut WE 03/0302/22/25 History subcutaneous pen injector (Ozempic) Allergy/AdvReac Type Severity Reaction Status Date / Time acetaminophen Allergy Severe Hives Verified 03/03/25 16:08 hydrocodone bitartrate (From Allergy Severe Hives Verified 03/03/25 16:08 Vicodin) hydromorphone HCl (From Allergy Severe Hives, Verified 03/03/25 16:08 Dilaudid) feels like on fire Penicillins Allergy Severe Anaphylaxis Verified 03/03/25 16:08 propoxyphene napsylate (From Allergy Severe Hives Verified 03/03/25 16:08 Darvocet-N 100) Sulfa (Sulfonamide Allergy Severe Hives Verified 03/03/25 16:08 Antibiotics) adhesive Allergy Rash Verified 03/03/25 16:08 budesonide (From Symbicort) Allergy Angioedema Verified 03/03/25 16:08 cephalexin monohydrate (From Allergy Rash Verified 03/03/25 16:08 Keflex) formoterol (From Symbicort) Allergy Angioedema Verified 03/03/25 16:08 Heparin Analogues Allergy severe Verified 03/03/25 16:08 bruising and rash latex Allergy Rash Verified 03/03/25 16:08 levofloxacin (From Levaquin) Allergy Swelling, Verified 03/03/25 16:08 rash oxycodone HCl (From Percocet) Allergy Hives Verified 03/03/25 16:08 oxytocin Allergy Hives Verified 03/03/25 16:08 Family History Mother Cancer Father Cancer Myocardial infarction Sister Cancer Other Alcoholism Anxiety Arthritis Blood clot associated with vein wall inflammation Breast cancer Cervical cancer Depression Melanoma Mental disorder Osteoporosis Surgical History (Updated 03/03/25 @ 16:28 by Shannan Pedro) History of cystoscopy History of cystoscopy H/O dilation of urethra History of repair of hiatal hernia History of cardiac catheterization History of sinus surgery History of cervical spinal surgery History of tubal ligation History of appendectomy History of cholecystectomy Social History Smoking Status: Former smoker Tobacco: How many years used: 54 second hand exposure: Yes alcohol intake: current alcohol intake frequency: holidays/special occasions only substance use type: does not use, former substance user Date of last use: 2004 and crack/cocaine caffeine: Yes what type of physical activity do you participate in: none Audit: Pertinent Findings Pertinent Findings EKG Perinent findings: 12/10/2024. Normal sinus rhythm 94 bpm cannot rule out inferior infarct, age undetermined. Stress test pertinent findings: 10/17/2024. Negative EF 70% Heart catheterization pertinent findings: 06/08/2023. Nonobstructive coronary arteries. Recommendations. Medical therapy. Consult pertinent findings: Radiology 05/21/2023. Nonobstructive coronary artery disease. 30 to 40% RCA. Tress test from 01/2023 negative. Continues to have chest pain. Plan is to undergo cardiac catheterization. Recommendation Anesthesia Recommendation Anesthesia recommendation: OPTIMIZED for anesthesia
[2025-03-08] VITALS (12 sets, daily range): BP systolic 103–118; BP diastolic 54–66; PULSE 74–88; RESP 16–20; TEMP 36.2–36.8; O2SAT 91–95; BMI 33.5
--- NOTE | 2025-03-08 11:17 | PRE.ANES_ITS ---
ASA Classification* ASA Classification ASA Classification: 3 Assessment & Plan Anesthesia* Anesthesia Assessment Anesthesia Assessment: Discussed sedation and/or anesthesia options, risks, benefits, and alternatives with patient/parents/legal guardian/POA. Questions invited. The patient/parents/legal guardian/POA seems to understand and agrees to proceed with anesthesia plan. Reviewed the physical assessment, medical history, allergy history and patient home medications list prior to surgery/procedure/anesthetic and documented any changes. Performed airway and anesthesia risk assessments. Anesthesia Type Anesthesia Type: General Anesthesia Focused Assessment* Airway Assessment Mouth opens: >3 cm Mallampati Score: II Focused Labs Anesthesia Preop lab: CBC WBC 10.2 K/mm3 (4.4-11.0) 01/23/25 13:53 01/23/25 RBC 4.62 M/mm3 (4.2-5.4) 01/23/25 13:53 01/23/25 Hgb 13.1 g/dL (12.0-15.0) 01/23/25 13:53 01/23/25 Hct 39.4 % (37-47) 01/23/25 13:53 01/23/25 Plt Count 428 K/mm3 (150-450) 01/23/25 13:53 01/23/25 CHEMISTRY Potassium 4.2 mmol/L (3.3-5.1) 01/23/25 13:53 01/23/25 Sodium 139 mmol/L (133-145) 01/23/25 13:53 01/23/25 Magnesium 1.9 mg/dL (1.5-2.2) 01/23/25 13:53 01/23/25 BUN 9 mg/dL (4-19) 01/23/25 13:53 01/23/25 Creatinine 0.89 mg/dL (0.70-1.20) 01/23/25 13:53 01/23/25 Glucose 115 mg/dL (70-99) H 01/23/25 13:53 01/23/25 POC Glucose 198 mg/dL (74-106) H 06/19/23 20:38 06/19/23 TSH 2.160 uIU/mL (0.358-3.740) 11/24/24 14:29 08/10 COAG PT 12.8 SECONDS (11.7-14.9) 12/10/24 12:50 Pre-Assessment Diagnosis/Proposed Procedure Planned Operative Procedure(s): ORIF RIGHT ELBOW Anesthesia History Anesthesia History - production cell leader: Anesthesia History - production cell leader Hx Hospitalization No 03/03/25 16:14 Any Problems With Anesthesia No 03/03/25 16:14 Cholinesterase deficiency No 03/03/25 16:14 You/Your Family Experience No 03/03/25 16:14 fever (hyperthermia) with Relationship Recent Exposure to Contagious No 03/03/25 08:02 Disease Does patient have nerve No 03/03/25 16:14 stimulator Patient instructed to have device shut off --Does patient have Pacemaker or ICD? When Was Last Pacemaker Check QUESTION #4 FULL TEXT: You/Your Family Experience fever (hyperthermia) with Anesthesia Last Oral Intake Last Oral intake: Last Oral Intake NPO since Meds taken in AM with sips of water? Meds patient instructed to take am of surgery PONV PONV - production cell leader: PONV - production cell leader Female Yes 03/03/25 16:14 HX of Motion Sickness Yes 03/03/25 16:14 HX of N/V After Surgery No 03/03/25 16:14 Non-Smoker Yes 03/03/25 16:14 Duration of Surgery greater Yes 03/03/25 16:14 than 60 minutes Number of Risk Factors 4 03/03/25 16:14 PONV Score Severe Risk 03/03/25 16:14 Height & Weight Height & Weight: Anesthesia: Height & Weight Height 5 ft 1 in 03/03/25 08:02 Respiratory Assessment Respiratory Assessment - production cell leader: Respiratory Tract Infection Hx - production cell leader Hx Respiratory Tract Infection No 03/03/25 16:14 STOP Sleep Apnea STOP Sleep Apnea - production cell leader: STOP Sleep Apnea - production cell leader Hx Hypertension Yes: CONTROLLED WITH MED 03/03/25 16:14 Hx Sleep Apnea Yes 03/03/25 16:14 CPAP No 03/03/25 16:14 BIPAP No 03/03/25 16:14 Do you snore loudly (louder than talking or can be heard Do you often feel tired/ fatigued/ sleepy during daytime? Has anyone observed you stop breathing during sleep? STOP Results Positive 03/03/25 16:14 QUESTION #5 FULL TEXT : Do you snore loudly (louder than talking or can be heard through closed doors)? 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 - production cell leader: Tobacco Use History - production cell leader Tobacco Use Cigarettes 03/03/25 08:02 Smoking Status Former smoker 03/03/25 16:14 Hx Tobacco Use Yes 03/03/25 16:14 Years Smoking Packs Smoked per Day Smoking Cessation Date was Yes - quit smoking within 15 03/03/25 16:14 within the last 15 years years Hx Smoking Cessation Date 12/05/24 03/03/25 16:14 Hx Smoking Cessation No 03/03/25 16:14 Counseling Hematologic Medial History Hematologic Hx - production cell leader: Hematologic Medical Hx - clinical documentation clerk Hx of Blood Transfusion No 03/03/25 16:14 Hx of Transfusion in last 3 No 03/03/25 16:14 Months Date of Last Transfusion (if within last 3 months) Ever experience any problems No 03/03/25 16:14 with transfusion(s)? Specify any problems Hx of Preganancy in last 3 No 03/03/25 16:14 Months Nurse Filling Out Transfusion DSCHRIBER 03/03/25 16:14 & Questions: Date: 03/03/25 03/03/25 16:14 Time: 16:15 03/03/25 16:14 Patient unable to answer at this time (ie. confused, unrespo /Reproduction History /Reproductive History - production cell leader: /Reproductive Hx- production cell leader Hx Now No 03/03/25 16:14 Gestational Age (in weeks): EDC: Hx Hx Para Hx Section SAB No 03/03/25 16:14 Active Medications Active Medications: Current Medications Generic Name Dose Route Start Last Admin Trade Name Freq PRN Reason Stop Dose Admin Clindamycin Phosphate 900 mg in 50 mls @ 75 mls/hr 03/08/25 11:45 Cleocin IV 03/08/25 12:24 INTRAOP ONE Lactated Ringer's 1,000 mls @ 15 mls/hr 03/08/25 11:00 IV .Q48H ORION PFSH Medical History Abrasion Fatty liver Low iron Restless legs Back pain Injury of head and neck TIA (transient ischemic attack) Syncope Dietary restriction History of hiatal hernia Former smoker Cervical radiculopathy Fatty liver disease, nonalcoholic Nausea and vomiting Body aches URI (upper respiratory infection) UTI (urinary tract infection) Severe headache Obesity Diabetes Stress incontinence Tachycardia Cardiology follow-up encounter HPV (human papilloma virus) anogenital infection Chest pain COVID-19 (01/04/23) Urethral stenosis Wears dentures Cancer Marijuana use Ambulates with cane High cholesterol TIA (transient ischemic attack) Gastric reflux History of IBS CPAP (continuous positive airway pressure) dependence Chronic cough COPD (chronic obstructive pulmonary disease) Leg cramps History of pain when walking History of echocardiogram History of stress test Vitamin D deficiency Vascular disease History of stomach ulcers Osteoporosis Neuropathy Liver disease IBS (irritable bowel syndrome) Arthritis Nonobstructive atherosclerosis of coronary artery Essential (primary) hypertension Incidental lung nodule, > 3mm and < 8mm Tobacco abuse MELYSSA (obstructive sleep apnea) Trigeminal neuralgia Dysmetabolic syndrome DDD (degenerative disc disease), cervical Asthma DJD (degenerative joint disease) Chronic obstructive lung disease Hyperlipidemia Depression Home Medications ?Medication ?Instructions ?Recorded ?Last Taken ?Type PEP device #1 ea 02/27/20 Unknown Rx nitroglycerin 0.4 mg sublingual 0.4 mg sublingual Q5-1 5M PRN chest 01/23/23 Unknown Rx tablet pain #25 tabs aspirin 81 mg tablet,delayed 81 mg PO DAILY #30 tabs 0 05/21/23 06/08/23 Rx release omeprazole 20 mg tablet,delayed 20 mg PO DAILY heartbu rn 03/22/24 Unknown History release ergocalciferol (vitamin D2) 1,250 1,250 mcg PO WE #12 caps 09/19/24 Unknown Rx mcg (50,000 unit) capsule (Vitamin D2) losartan 50 mg tablet 50 mg PO BID #180 tabs 09/19 Unknown Rx cetirizine 10 mg tablet (Zyrtec) 10 mg PO QDAY PRN all ergy symptoms 10/05/24 Unknown History ezetimibe 10 mg tablet (Zetia) 10 mg PO DAILY #90 tabs 10/05/24 Unknown Rx bupropion HCl 200 mg tablet,12 hr 200 mg PO DAILY #90 ea 10/31/24 Unknown Rx sustained-release albuterol sulfate 90 mcg/actuation 2 puff inhalation Q 6H PRN 12/10/24 Unknown Rx aerosol inhaler shortness of breath or wheez ing #8.5 grams ondansetron 4 mg disintegrating 4 mg PO Q8H PRN nausea and 01/23/25 Unknown Rx tablet vomiting #10 tabs trazodone 50 mg tablet 25 mg (1/2 x 50 mg) PO QDAY PRN 01/23/25 Unknown Rx sleep #30 tabs escitalopram oxalate 10 mg tablet 10 mg PO QHS 5 Unknown History (Lexapro) semaglutide 2 mg/dose (8 mg/3 mL) 2 mg subcut WE 03/0302/22/25 History subcutaneous pen injector (Ozempic) morphine 15 mg immediate release 15 mg PO BID PRN pain 5 days #10 03/06/25 Unknown Rx tablet tabs docusate sodium 100 mg capsule 100 mg PO BID #20 caps 03/07/25 Unknown Rx (Dulcolax Stool Softener (docusate)) Allergy/AdvReac Type Severity Reaction Status Date / Time acetaminophen Allergy Severe Hives Verified 03/08/25 11:14 hydrocodone bitartrate (From Allergy Severe Hives Verified 03/08/25 11:14 Vicodin) hydromorphone HCl (From Allergy Severe Hives, Verified 03/08/25 11:14 Dilaudid) feels like on fire Penicillins Allergy Severe Anaphylaxis Verified 03/08/25 11:14 propoxyphene napsylate (From Allergy Severe Hives Verified 03/08/25 11:14 Darvocet-N 100) Sulfa (Sulfonamide Allergy Severe Hives Verified 03/08/25 11:14 Antibiotics) adhesive Allergy Rash Verified 03/08/25 11:14 budesonide (From Symbicort) Allergy Angioedema Verified 03/08/25 11:14 cephalexin monohydrate (From Allergy Rash Verified 03/08/25 11:14 Keflex) formoterol (From Symbicort) Allergy Angioedema Verified 03/08/25 11:15 Heparin Analogues Allergy severe Verified 03/08/25 11:15 bruising and rash latex Allergy Rash Verified 03/08/25 11:15 levofloxacin (From Levaquin) Allergy Swelling, Verified 03/08/25 11:15 rash oxycodone HCl (From Percocet) Allergy Hives Verified 03/08/25 11:15 oxytocin Allergy Hives Verified 03/08/25 11:15 Family History Mother Cancer Father Cancer Myocardial infarction Sister Cancer Other Alcoholism Anxiety Arthritis Blood clot associated with vein wall inflammation Breast cancer Cervical cancer Depression Melanoma Mental disorder Osteoporosis Surgical History History of cystoscopy History of cystoscopy H/O dilation of urethra History of repair of hiatal hernia History of cardiac catheterization History of sinus surgery History of cervical spinal surgery History of tubal ligation History of appendectomy History of cholecystectomy Social History Smoking Status: Former smoker Tobacco: How many years used: 54 second hand exposure: Yes alcohol intake: current alcohol intake frequency: holidays/special occasions only substance use type: does not use, former substance user Date of last use: 2004 and crack/cocaine caffeine: Yes what type of physical activity do you participate in: none Review of Systems (Anesthesia) ROS Narrative System reviewed and no additional complaints, except as documented.
[2025-03-08] MEDS: Ipratropium/Albuterol Sulfate 3 ML AMPUL.NEB INHALATION (11:47)
--- NOTE | 2025-03-08 11:59 | PCM.HP.STD ---
HPI - General HPI Narrative BRITNEY NICOLE, is a 64 F who presents for right olecranon open reduction internal fixation, radial head arthroplasty, possible ligament repair. No changes to history and physical exam. The right elbow marked. Swelling looks improved. Risks alternatives benefits discussed as well as postoperative instructions and narcotic counseling given. The patient understands wished to proceed plan for preoperative block no further concerns. MR#: [id number] Acct: [id number] Name: BRITNEY NICOLE Rep #: [id number] : 1960 Provider: Dr. Gurwinder Urena MD Age/Sex: 64/F Location[place] [facility] [place] Status: Signed Intake Vital Signs 03/02/2515:52 Height 5 ft 1 in Intake Visit Reasons: RIGHT ELBOW Chief Complaint: Right Elbow ER Follow-Up Accompanied by: Son Is patient in pain?: Yes Pain scale (1-10): 10 Allergies acetaminophen Allergy (Severe, Verified 03/03/25 10:00) Hiveshydrocodone bitartrate (From Vicodin) Allergy (Severe, Verified 03/03/25 10:00) Hiveshydromorphone HCl (From Dilaudid) Allergy (Severe, Verified 03/03/25 10:00) Hives, feels like on firePenicillins Allergy (Severe, Verified 03/03/25 10:00) Anaphylaxispropoxyphene napsylate (From Darvocet-N 100) Allergy (Severe, Verified 03/03/25 10:00) HivesSulfa (Sulfonamide Antibiotics) Allergy (Severe, Verified 03/03/25 10:00) Hivesadhesive Allergy (Verified 03/03/25 10:00) Rashbudesonide (From Symbicort) Allergy (Verified 03/03/25 10:00) Angioedemacephalexin monohydrate (From Keflex) Allergy (Verified 03/03/25 10:00) Rashformoterol (From Symbicort) Allergy (Verified 03/03/25 10:00) AngioedemaHeparin Analogues Allergy (Verified 03/03/25 10:00) severe bruising and rashlatex Allergy (Verified 03/03/25 10:00) Rashlevofloxacin (From Levaquin) Allergy (Verified 03/03/25 10:00) Swelling, rashoxycodone HCl (From Percocet) Allergy (Verified 03/03/25 10:00) Hivesoxytocin Allergy (Verified 03/03/25 10:00) Hives Medications ?Medication ?Instructions ?Recorded ?Confirmed ?Type PEP device #1 ea 02/27/20 03/03/25 Rx nitroglycerin 0.4 mg sublingual 0.4 mg sublingual Q5-15M PRN chest 01/23/23 03/03/25 Rx tablet pain #25 tabs aspirin 81 mg tablet,delayed 81 mg PO DAILY #30 tabs 05/21/23 03/03/25 Rx release omeprazole 20 mg tablet,delayed 20 mg PO DAILY PRN heartburn 03/22/24 03/03/25 History release ergocalciferol (vitamin D2) 1,250 1,250 mcg PO WE #12 caps 09/19/24 03/03/25 Rx mcg (50,000 unit) capsule (Vitamin D2) escitalopram oxalate 10 mg tablet 10 mg PO DAILY #90 tabs 09/19/24 03/03/25 Rx (Lexapro) losartan 50 mg tablet 50 mg PO BID #180 tabs 09/19/24 03/03/25 Rx cetirizine 10 mg tablet (Zyrtec) 10 mg PO QDAY PRN allergy symptoms 10/05/24 03/03/25 History ezetimibe 10 mg tablet (Zetia) 10 mg PO DAILY #90 tabs 10/05/24 03/03/25 Rx bupropion HCl 200 mg tablet,12 hr 200 mg PO DAILY #90 ea 10/31/24 03/03/25 Rx sustained-release albuterol sulfate 90 mcg/actuation 2 puff inhalation Q6H PRN 12/10/24 03/03/25 Rx aerosol inhaler shortness of breath or wheezing #8.5 grams ondansetron 4 mg disintegrating 4 mg PO Q8H PRN nausea and 01/23/25 03/03/25 Rx tablet vomiting #10 tabs trazodone 50 mg tablet 25 mg (1/2 x 50 mg) PO QDAY PRN 01/23/25 03/03/25 Rx sleep #30 tabs albuterol sulfate 90 mcg/actuation 2 puff inhalation Q6H PRN 03/01/25 03/03/25 Rx aerosol inhaler (Ventolin HFA) shortness of breath or wheezing #18 grams morphine 15 mg immediate release 15 mg PO BID PRN pain 5 days #10 03/02/25 03/03/25 Rx tablet tabs PFSH Medical History Cervical radiculopathy Fatty liver disease, nonalcoholic Nausea and vomiting Body aches URI (upper respiratory infection) UTI (urinary tract infection) Chest pain Severe headache Obesity Diabetes Stress incontinence Tachycardia Cardiology follow-up encounter HPV (human papilloma virus) anogenital infection COVID-19 (01/04/23) Urethral stenosis Wears dentures Cancer Marijuana use Rash Ambulates with cane Bladder disease High cholesterol TIA (transient ischemic attack) Gastric reflux History of IBS Smoker CPAP (continuous positive airway pressure) dependence Chronic cough COPD (chronic obstructive pulmonary disease) Leg cramps History of pain when walking History of echocardiogram History of stress test Hiatal hernia Vitamin D deficiency Vascular disease History of stomach ulcers Osteoporosis Neuropathy Liver disease IBS (irritable bowel syndrome) Heart disease H/O emotional problems Chronic bronchitis Breast lump Bone fracture Arthritis Anemia Nonobstructive atherosclerosis of coronary artery Essential (primary) hypertension Obese Incidental lung nodule, > 3mm and < 8mm Tobacco abuse MELYSSA (obstructive sleep apnea) Trigeminal neuralgia Esophageal reflux Dysmetabolic syndrome DDD (degenerative disc disease), cervical Migraine Asthma DJD (degenerative joint disease) Chronic obstructive lung disease Hyperlipidemia Depression Surgical History History of cystoscopy H/O dilation of urethra History of repair of hiatal hernia History of cardiac catheterization History of sinus surgery History of cervical spinal surgery History of left heart catheterization (01/25/18) History of tubal ligation History of appendectomy History of cholecystectomy Family History Mother CancerFather Cancer Myocardial infarctionSister CancerOther Alcoholism Anxiety Arthritis Blood clot associated with vein wall inflammation Breast cancer Cervical cancer Depression Melanoma Mental disorder Osteoporosis Social History Smoking Status: Former smoker Tobacco: How many years used: 54 second hand exposure: Yes alcohol intake: current alcohol intake frequency: holidays/special occasions only substance use type: does not use, former substance user Date of last use: 2004 and crack/cocaine caffeine: Yes what type of physical activity do you participate in: none HPI RIGHT ELBOW Details: This documentation accurately reflects the service provided and the decisions made by me, Dr. Gurwinder Urena MD 03/03/25 0814. Part of today?s visit was documented by [ ], acting as scribe. BRITNEY NICOLE is a 64 year old F here today for R mongteggia fracture elbow. lives on her own. rhd. does drive a car and does groceries and cooking. here with son. fell yesterday. on disability from her neck and a TIA. per ED Presents to ED via EMS mechanical fall. Stepping over a small fence when she slipped on her dog's feces, falling directly on her head and right side. Swelling to the head she takes baby aspirin. Significant right elbow pain. Right knee pain. No back pain. No chest or abdominal pain. Status post 100 mics of fentanyl by EMS. Tetanus 2 years ago. Reports to nasal bone fractures in the past. She has had multiple fractures without any surgical intervention. Supplemental Info [facility] Imaging Services [address] [place] [address] Elbow 2 Views MR#: [id number] Acct: [id number] Name: BRITNEY NICOLE Rep #: [id number] : 1960 F 64 From: Rayshawn Bhardwaj MD PCP: Dr. Leia Thomas MD Status: REG ER Study: Elbow 2 Views Date of Exam: 03/02/25 Exam# [id number] Ordering Dr: Herman Gale DO EXAM: Right elbow CLINICAL HISTORY: Trauma, injury, pain COMPARISON: None TECHNIQUE: Two-view FINDINGS: Acute comminuted fracture of the proximal ulna just distal to the olecranon with a fracture line extending proximally towards the coronoid process. Posterior dislocation of the radiocapitellar joint. Splint. RAD/Elbow 2 Views IMPRESSION: Acute comminuted fracture of the proximal ulna. Posterior dislocation of the radiocapitellar joint. Reading Location[id number] Imaging Services [address], [place] [id number] Extremity Upper without Contra MR#: [id number] Acct: [id number] Name: BRITNEY NICOLE Rep #: [id number] : 1960 F 64 From: Rayshawn Bhardwaj MD PCP: Dr. Leia Thomas MD Status: REG ER Study: Extremity Upper without Contra Date of Exam: 03/02/25 Exam# [id number] Ordering Dr: Herman Gale DO PROCEDURE: EXTREMITY UPPER WITHOUT CONTRA 03/02/2025 REASON FOR EXAM: FRACTURE TECHNIQUE: Axial CT images of the right elbow obtained without intravenous contrast. Coronal and Sagittal reconstruction series were provided. One or more dose reduction techniques were used (e.g., Automated exposure control, adjustment of the mA and/or kV according to patient size, use of iterative reconstruction technique COMPARISON: X-ray earlier today FINDINGS: Bones: Acute comminuted fracture of the proximal ulna with extension proximally into the coronoid process which is fractured. Joints: Acute posterior dislocation of the radiocapitellar joint with a comminuted fracture of the anterior aspect of the radial head. Soft Tissues: Unremarkable. CT/Extremity Upper without Contra IMPRESSION: Acute comminuted fracture of the proximal ulna extending through the coronoid process which is fracture. Acute posterior dislocation of the radiocapitellar joint with a comminuted fracture of the anterior aspect of the radial head. Reading Location: [facility] I independently reviewed the imaging. Concur with radiologist report. Coding Level of Care Code Off vis,new,level 4 Diagnoses Closed fracture of right elbow S42.401A Assessment and Plan Assessment and Plan (1) Closed fracture of right elbow: Status: Acute Plan: 64-year-old female with a right elbow olecranon fracture intra-articular as well as a comminuted radial head fracture with posterior subluxation of the joint. The patient counseled as the diagnosis prognosis different treatment options. Definitely recommended for surgical intervention Monteamelia fashion. Given the instability of the joint as well as the fracture pattern. Without surgery this would result in extreme stiffness and loss of function of the elbow. Surgery would be in the form of right olecranon open reduction internal fixation, radial head arthroplasty, possible ligament repair. The recovery for this 2 weeks in a sling 3 to 6 months full recovery. Complications discussed such as posttraumatic osteoarthritis loosening of the implants instability pain stiffness bleeding and other risks. The patient is a non-smoker with the use of small okay to have obstructive sleep apnea I do not use the machine for that an extensive past medical history. Will go ahead and get a clearance the patient does not want to go ahead with surgery and we will see how quickly we can get this on. Pros and cons risks and benefits were discussed with the patient including but not limited to infection, pain, stiffness, bleeding, damage to surrounding structures, neurovascular injury, recurrence or retear, failure or wear of hardware or fixation, instability, fracture, deep vein thrombosis and pulmonary embolism, anesthetic risks, , patient dissatisfaction, need for further surgery and other risks. Patient understood and wished to proceed with surgery, and signed the informed consent documentation. Ortho Exam General General: Yes no acute distress Neurologic: Yes alert and Yes oriented x3 Psychologic: Yes reasonable and appropriate Right Elbow Skin/Wound: Yes CDI, No eccymosis, No erythema and Yes Swelling (moderate) ROM: Yes TTP Fracture Site Sensation: Radial: I, Ulnar: I and Median: I Motor: EPL: 5, FDP-2: 5 and 1st Dorsal Interosseous: 5 ELBOW: nvi mru ain/pin. good radial pulse. closed no threatening skin PFSH Medical History Abrasion Fatty liver Low iron Restless legs Back pain Injury of head and neck TIA (transient ischemic attack) Syncope Dietary restriction History of hiatal hernia Former smoker Cervical radiculopathy Fatty liver disease, nonalcoholic Nausea and vomiting Body aches URI (upper respiratory infection) UTI (urinary tract infection) Severe headache Obesity Diabetes Stress incontinence Tachycardia Cardiology follow-up encounter HPV (human papilloma virus) anogenital infection Chest pain COVID-19 (01/04/23) Urethral stenosis Wears dentures Cancer Marijuana use Ambulates with cane High cholesterol TIA (transient ischemic attack) Gastric reflux History of IBS CPAP (continuous positive airway pressure) dependence Chronic cough COPD (chronic obstructive pulmonary disease) Leg cramps History of pain when walking History of echocardiogram History of stress test Vitamin D deficiency Vascular disease History of stomach ulcers Osteoporosis Neuropathy Liver disease IBS (irritable bowel syndrome) Arthritis Nonobstructive atherosclerosis of coronary artery Essential (primary) hypertension Incidental lung nodule, > 3mm and < 8mm Tobacco abuse MELYSSA (obstructive sleep apnea) Trigeminal neuralgia Dysmetabolic syndrome DDD (degenerative disc disease), cervical Asthma DJD (degenerative joint disease) Chronic obstructive lung disease Hyperlipidemia Depression Home Medications ?Medication ?Instructions ?Recorded ?Last Taken ?Type PEP device #1 ea 02/27/20 Unknown Rx nitroglycerin 0.4 mg sublingual 0.4 mg sublingual Q5-15M PRN chest 01/23/23 Unknown Rx tablet pain #25 tabs aspirin 81 mg tablet,delayed 81 mg PO DAILY #30 tabs 05/21/23 03/07/25 Rx release omeprazole 20 mg tablet,delayed 20 mg PO DAILY heartburn 03/22/24 03/08/25 History release ergocalciferol (vitamin D2) 1,250 1,250 mcg PO WE #12 caps 09/19/24 03/01/25 Rx mcg (50,000 unit) capsule (Vitamin D2) losartan 50 mg tablet 50 mg PO BID #180 tabs 09/19/24 03/08/25 Rx ezetimibe 10 mg tablet (Zetia) 10 mg PO DAILY #90 tabs 10/05/24 03/07/25 Rx bupropion HCl 200 mg tablet,12 hr 200 mg PO DAILY #90 ea 10/31/24 03/08/25 Rx sustained-release albuterol sulfate 90 mcg/actuation 2 puff inhalation Q6H PRN 12/10/24 03/08/25 Rx aerosol inhaler shortness of breath or wheezing #8.5 grams ondansetron 4 mg disintegrating 4 mg PO Q8H PRN nausea and 01/23/25 03/07/25 Rx tablet vomiting #10 tabs trazodone 50 mg tablet 25 mg (1/2 x 50 mg) PO QDAY PRN 01/23/25 Unknown Rx sleep #30 tabs escitalopram oxalate 10 mg tablet 10 mg PO QHS 03/03/25 03/07/25 History (Lexapro) semaglutide 2 mg/dose (8 mg/3 mL) 2 mg subcut WE 03/03/25 02/22/25 History subcutaneous pen injector (Ozempic) morphine 15 mg immediate release 15 mg PO BID PRN pain 5 days #10 03/06/25 03/07/25 Rx tablet tabs docusate sodium 100 mg capsule 100 mg PO BID #20 caps 03/07/25 Unknown Rx (Dulcolax Stool Softener (docusate)) loratadine 10 mg tablet 10 mg PO DAILY 03/08/25 03/08/25 History Allergy/AdvReac Type Severity Reaction Status Date / Time acetaminophen Allergy Severe Hives Verified 03/08/25 11:14 hydrocodone bitartrate (From Allergy Severe Hives Verified 03/08/25 11:14 Vicodin) hydromorphone HCl (From Allergy Severe Hives, Verified 03/08/25 11:14 Dilaudid) feels like on fire Penicillins Allergy Severe Anaphylaxis Verified 03/08/25 11:14 propoxyphene napsylate (From Allergy Severe Hives Verified 03/08/25 11:14 Darvocet-N 100) Sulfa (Sulfonamide Allergy Severe Hives Verified 03/08/25 11:14 Antibiotics) adhesive Allergy Rash Verified 03/08/25 11:14 budesonide (From Symbicort) Allergy Angioedema Verified 03/08/25 11:14 cephalexin monohydrate (From Allergy Rash Verified 03/08/25 11:14 Keflex) formoterol (From Symbicort) Allergy Angioedema Verified 03/08/25 11:15 Heparin Analogues Allergy severe Verified 03/08/25 11:15 bruising and rash latex Allergy Rash Verified 03/08/25 11:15 levofloxacin (From Levaquin) Allergy Swelling, Verified 03/08/25 11:15 rash oxycodone HCl (From Percocet) Allergy Hives Verified 03/08/25 11:15 oxytocin Allergy Hives Verified 03/08/25 11:15 Family History Mother Cancer Father Cancer Myocardial infarction Sister Cancer Other Alcoholism Anxiety Arthritis Blood clot associated with vein wall inflammation Breast cancer Cervical cancer Depression Melanoma Mental disorder Osteoporosis Surgical History History of cystoscopy History of cystoscopy H/O dilation of urethra History of repair of hiatal hernia History of cardiac catheterization History of sinus surgery History of cervical spinal surgery History of tubal ligation History of appendectomy History of cholecystectomy Social History Smoking Status: Former smoker Tobacco: How many years used: 54 second hand exposure: Yes alcohol intake: current alcohol intake frequency: holidays/special occasions only substance use type: does not use, former substance user Date of last use: 2004 and crack/cocaine caffeine: Yes what type of physical activity do you participate in: none Vital Signs Vital Signs Vital Signs: 03/08/25 11:21 03/08/25 11:21 03/08/25 11:47 Temperature 98.2 F Temperature Source Temporal Pulse Rate 75 74 Respiratory Rate 20 H 16 Respiratory Pattern Normal Normal Blood Pressure 116/63 Blood Pressure Mean 80 Blood Pressure Source Monitor Blood Pressure Position Semi-Fowlers Blood Pressure Location Left Arm Pulse Ox 95 Oxygen Delivery Method Room Air Weight Weight: 177 lb 7.554 oz Body Mass Index (BMI) 33.5
[2025-03-08] MEDS: Clindamycin 900 MG/50 ML BAG 75 MG IV (12:37)
--- NOTE | 2025-03-08 12:55 | RAD_ITS ---
EXAM: Intraoperative fluoroscopic services provided for ORIF of the left elbow. CLINICAL HISTORY: Fracture or dislocation of the elbow joint. COMPARISON: Prior study dated March 02, 2025. TECHNIQUE: Intraoperative imaging was provided. 78.4 seconds of fluoroscopy. 3.27 mGy. 7 images were submitted. FINDINGS: Intraoperative fluoroscopic services provided for open reduction internal fixation of the proximal ulna and olecranon process with screw and sideplate fixation device. Prosthetic radial head was placed. There is good alignment. RAD/Elbow min 3 Views IMPRESSION: Satisfactory reduction of the comminuted fracture of the proximal ulna with the prosthetic radial head placement. Reading Location: [facility]
[2025-03-08 14:07] LABS: Bedside Glucose 105 mg/dL (74-106)
--- NOTE | 2025-03-08 14:56 | PCM.POST.ANE ---
Anesthesia: Postop Eval I Current Vital Signs Temperature: 97.2 F Pulse Rate: 88 Blood Pressure: 115/58 Respiratory Rate: 16 Pulse Ox: 91 Assessment Airway patent: Yes Spontaneous unlabored respirations: Yes nausea: No Vomiting: No Anesthesia Complication: No Fluid Hydration Crystalloid volume administer (ml): 1,400 Total IV fluid infused: 1,400 Progress Note Anesthesia document: Postop Eval 1 completed: Yes
--- NOTE | 2025-03-08 14:57 | OP.PCM_ITS ---
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: james Tasks completed by first front ventilator: Retracting Additional school bus driver/teacher assistant?: No Type of Anesthesia: Block,Regional and General RN Documented Start/Stop Times: Operation Date: 03/08/25 12:15 Case Time Into Pre-Op 03/08/25 10:56 Anesthesia Start 03/08/25 12:37 Into Room 03/08/25 12:37 Out of Pre-Op 03/08/25 12:37 Procedure Start 03/08/25 13:00 Procedure End 03/08/25 14:44 Anesthesia End 03/08/25 14:48 Out of Room 03/08/25 14:48 Procedure Start Time: 13:00 Procedure Stop Time: 14:44 Select all DRAINS/GRAFTS/IMPLANTS that apply: Implanted device Implanted device details: Synthes ulna plate proximal precontoured and Synthes radial head replacement Estimated Blood Loss: 50 Specimen collected: No Description of surgery: Patient brought to the operating room theater. Placed supine on the table. General anesthesia induced. 2 g IV Ancef administered prior to the start of the case. All bony prominences padded. SCDs on the leg. Tourniquet applied to the right upper extremity appropriately padded. Bed turned 90 degrees. Arm table to the patient's right side. Upper extremity prepped and draped in the usual sterile fashion with chlorhexidine-based prep solution allowing over 3 minutes drying time prior to draping. Preoperative timeout performed to confirm the site patient and the surgery. Began by elevating limb inflating the tourniquet to 250 mmHg. Made a standard posterior incision at the proximal aspect of the elbow over the proximal olecranon. I contoured this laterally around the olecranon tip. Carried the dissection down through skin and subcutaneous tissue achieved meticulous hemostasis. Work through zone of trauma. Incised between ECU and FCU. Made a small longitudinal split at the triceps insertion. Cleared away any interposed hematoma and periosteum around the fracture site. Irrigated the joint. Small chondral defect 3mm at distal humerus. Reduce the radial head fracture dislocation remove multiple fragments of the radial head this was in 6 or 7 small fragment pieces. Used it for length while reduced though. I then reduced the proximal ulna fracture. I used a small mini fragment plate anteromedially as a buttress. I used 2 unicortical screws on either end of that. I then used the Synthes precontoured proximal olecranon fracture plate. Placed this on the bone. Achieved good reduction there using intraoperative fluoroscopy AP and lateral. Also clamped the fracture for compression. I inserted the oblong screws distally as well as multiple locking screws proximally as well as the distalmost screw I used a locking screw as well. I ensured to keep these short of the articular surface. This achieved good bony reduction. Next I turned my attention to the radial head arthroplasty. I made the neck cut 15 mm distal to the articular surface of the radial head. I sized this on the back table as well as intraoperatively to 19mm. I used the broaches up to a size 5.5 mm. Good fit on exam and on xrays. I trialed with a 19 mm size head with a +0 thickness and 5.5 mm stem. This is a smooth stem. This appeared to have good range of motion full range of motion with good ulnohumeral distance and Co linearity. I inserted the final components did again range of motion full range of motion some mild pistoning of the radial head arthroplasty but no overstuffing. Lateral collateral ligament complex was then examined and felt to be intact good endpoint at 30 and 0 degrees of flexion as well as I could have a direct visualization of the attachment onto the distal humerus. Then thoroughly irrigated final radiographs were taken and saved onto the system. Triceps split closure was closed with #1 Vicryl suture as well as the split between FCU and ECU repaired [id number] as well as to the plate. The wound again thoroughly irrigated subcutaneous tissue closed with 2-0 Vicryl sutures and skin with 3-0 Monocryl. Skin cleaned with a wet dry dressing followed application of Steri-Strips Adaptic 4 x 4 gauze ABD dressing sterile cast padding and a posterior elbow fiberglass prefabricated splint at 90 degrees with the forearm in pronation and overwrapped with loosely wrapped Johnatan wrap and a sling for the upper extremity. Patient woken up from a general anesthetic transferred off the operating table taken postanesthetic care unit in stable condition. All sponge needle instrument counts were correct no complications plan to the patient discharged home according to day surgery criteria follow-up in the office within 2 weeks t lynn. CPT 11337, 12717 Surgical Findings: As above Complications Complications: No Admit VTE Documentation VTE Present on Admission: No VTE Mechan Device Prophylaxis: SCD's VTE Pharm Prophylaxis ordered?: No Reason prophylaxis not ordered: Treatment Not Indicated
--- NOTE | 2025-03-08 15:06 | DCINST_ITS ---
Discharge Instructions Diet Discharge Diet: No restrictions Activity Ice area for (Minutes): 10 Lifting Restrictions: remain in splint overhead garage door hanger Additional Activity Instructions:: remain in splint 2 weeks. Dressing / Incision Call your doctor if your incision/area has: Continuous Slow Oozing, Sudden Increased Bleeding, Increased Pain/ Swelling, Increased Redness, Foul Smelling Discharge and Swelling at the incision site Call your doctor if you observe: Fever of 101 or Higher, Coldness, Increased Pain and Numbness or Tingling Change Dressing in: leave in place till F/U Cleanse incision/area with: Do not get Incision Wet Follow Up Care Please Follow Up With: Gurwinder Urena MD When: 2 days or within 2 weeks Test Results: Test results from this visit will be discussed in further detail at your follow- up appointment, if applicable. Discharge Plan Admission Attending Provider: Gurwinder Urena Primary Care Provider: Leia Thomas Instructions Print Language: Arabic Discharge Orders/Prescriptions Prescriptions: No Action (DME) PEP device See Rx Instructions .ROUTE .MEDSUPPLY Qty: 1 0RF Rx Instructions: with training nitroglycerin 0.4 mg tablet, sublingual 0.4 mg sublingual Q5-15M PRN (Reason: chest pain) Qty: 25 3RF aspirin 81 mg tablet,delayed release (DR/EC) 81 mg PO DAILY Qty: 30 0RF omeprazole 20 mg tablet,delayed release (DR/EC) 20 mg PO DAILY ezetimibe [Zetia] 10 mg tablet 10 mg PO DAILY Qty: 90 1RF ondansetron 4 mg tablet,disintegrating 4 mg PO Q8H PRN (Reason: nausea and vomiting) Qty: 10 1RF Rx Instructions: Watch for signs of sedation. Do not drive or operate equipment while using this medication. trazodone 50 mg tablet 25 mg PO QDAY PRN (Reason: sleep) Qty: 30 1RF Rx Instructions: Take one-half (25 mg) to one tab (50 mg) 1 hour before bedtime. albuterol sulfate 90 mcg/actuation HFA aerosol inhaler 2 puff inhalation Q6H PRN (Reason: shortness of breath or wheezing) Qty: 8.5 0RF escitalopram oxalate [Lexapro] 10 mg tablet 10 mg PO QHS Ozempic 2 mg/dose (8 mg/3 mL) pen injector 2 mg SUBCUT WE Patient Comments: [NO ORIGINAL SIG] loratadine 10 mg tablet 10 mg PO DAILY ergocalciferol (vitamin D2) [Vitamin D2] 1,250 mcg (50,000 unit) capsule 1,250 mcg PO WE Qty: 12 3RF losartan 50 mg tablet 50 mg PO BID Qty: 180 3RF bupropion HCl 200 mg tablet sustained-release 12 hr 200 mg PO DAILY Qty: 90 3RF morphine 15 mg tablet 15 mg PO BID PRN (Reason: pain) 5 Days Qty: 10 0RF docusate sodium [Dulcolax Stool Softener (dss)] 100 mg capsule 100 mg PO BID Qty: 20 0RF Referrals / Follow Up: Leia Thomas MD [Primary Care Provider] - Gurwinder Urena MD [Med Staff - Active Staff] - Disposition Disposition (needs filled in before D/C Order can be placed): Home, Self Care
--- NOTE | 2025-03-08 15:21 | POSTOPAN2_ITS ---
Anesthesia Postop Eval I Sum Postop Eval Completion status Anesthesia document: Postop Eval 1 completed: Yes Anesthesia Postop Eval I Summary Anesthesia Postop Eval I Summary: Anesthesia Postop Eval I: Assessment Summary Airway patent Yes 03/08/25 14:56 [email or web address] [email or web address] Spontaneous unlabored Yes 03/08/25 14:56 [email or web address] respirations Mental status nausea No 03/08/25 14:56 [email or web address] Vomiting No 03/08/25 14:56 [email or web address] Anesthesia Postop Eval I: Fluid Summary Crystalloid volume administer 1,400 03/08/25 14:56 [email or web address] (ml) Colloids volume administered ( ml) Blood Product volume administered (ml) Total IV fluid infused 1,400 03/08/25 14:56 [email or web address] Anesthesia Postop Eval I: Summary Notes Anesthesia Complication No 03/08/25 14:56 [email or web address] Anesthesia Complication Comment: Post-operative progress note Anesthesia: Postop Eval II Evaluation Mental status: Awake Pain Level: 2 nausea: No Vomiting: No
--- NOTE | 2025-03-08 15:21 | PCM.POSTANE2 ---
Anesthesia Postop Eval I Sum Postop Eval Completion status Anesthesia document: Postop Eval 1 completed: Yes Anesthesia Postop Eval I Summary Anesthesia Postop Eval I Summary: Anesthesia Postop Eval I: Assessment Summary Airway patent Yes 03/08/25 14:56 [email or web address] Spontaneous unlabored Yes 03/08/25 14:56 [email or web address] respirations Mental status nausea No 03/08/25 14:56 [email or web address] Vomiting No 03/08/25 14:56 [email or web address] Anesthesia Postop Eval I: Fluid Summary Crystalloid volume administer 1,400 03/08/25 14:56 [email or web address] (ml) Colloids volume administered ( ml) Blood Product volume administered (ml) Total IV fluid infused 1,400 03/08/25 14:56 [email or web address] Anesthesia Postop Eval I: Summary Notes Anesthesia Complication No 03/08/25 14:56 [email or web address] Anesthesia Complication Comment: Post-operative progress note Anesthesia: Postop Eval II Evaluation Mental status: Awake Pain Level: 2 nausea: No Vomiting: No
== END 2025-03-08 17:01 | disposition home or self-care (01) ==
LOC: SDC 10:55 → AC 10:56
PROVIDERS: PCP Internal Medicine; Referring Provider Orthopaedic Surgery Sports Medicine; Visit Provider Orthopaedic Surgery Sports Medicine
PROC: (CPT 24366; principal; 2025-03-08 12:00)
DX: S52.121A Displaced fracture of head of right radius, initial encounter for closed fracture (principal); J44.9 Chronic obstructive pulmonary disease, unspecified; E11.40 Type 2 diabetes mellitus with diabetic neuropathy, unspecified; S52.021A Displaced fracture of olecranon process without intraarticular extension of right ulna, initial encounter for closed fracture; W01.0XXA Fall on same level from slipping, tripping and stumbling without subsequent striking against object, initial encounter; I10 Essential (primary) hypertension; K21.9 Gastro-esophageal reflux disease without esophagitis; K58.9 Irritable bowel syndrome, unspecified; E55.9 Vitamin D deficiency, unspecified; E78.00 Pure hypercholesterolemia, unspecified; M81.0 Age-related osteoporosis without current pathological fracture; I25.10 Atherosclerotic heart disease of native coronary artery without angina pectoris; F32.A Depression, unspecified; G47.33 Obstructive sleep apnea (adult) (pediatric); Z86.73 Personal history of transient ischemic attack (TIA), and cerebral infarction without residual deficits; Z79.85 Long-term (current) use of injectable non-insulin antidiabetic drugs; Z79.82 Long term (current) use of aspirin; Z79.899 Other long term (current) drug therapy; Z87.891 Personal history of nicotine dependence
CPT/HCPCS: 24366; 24685; 01740; 64415; 73080; 76000; 82962; 94640; C1713; J2405

== ENCOUNTER 2025-04-27 12:00 | Outpatient (RCR) | payer MEDICARE, SELFPAY ==
--- NOTE | 2025-03-30 13:07 | HP.PTEVAL_ITS ---
Patient's Visit Information Visit Information Visit Information: BRITNEY NICOLE is a 64 year old F referred to Physical Therapy by Dr. Dominik Loza MD with a diagnosis of Right elbow fracture, S42.401A. Date of Evaluation: 03/30/25 Physical Therapist: Rajeev Richardson Visit Plan Frequency: 1-2x /Week Duration: 2 Months Plan: Gentle ROM only for right UE for week 2-6. Will progress as tolerated and per physician's orders after this. Use manual therapy and modalities as needed for pain control. Subjective Subjective: Pt. is a 64 y.o. female who fell about a month ago and landed on her right side. Pt. was stepping over a fence in slipped in some dog poop and landed straight on her face. Pt. went to the ER and had x-ray which showed acute c ommunited proximal ulna fracture and posterior elbow dislocation. Pt. had surgery a few days later for right elbow ORIF and radial head arthroplasty. Pt. PLOF includes no history of right elbow pain in the past. She is right handed. Pt. has difficulty with reaching overhead, reaching out to the side, UE dressing/bathing, sleeping, lifting things, pushing/pulling, carrying things, housework, and yard work. Pt. is on disability for her neck. Pt. goal with physical therapy is to improve her strength and motion. Pt. has had previous physical therapy for her neck and back. Pt. rates right wrist pain at 6/10 currently and right elbow pain at 5/10 currently. She is currently taking Ibuprofen for pain. Her PMH includes TIA, type II diabetes, skin cancer, smoker for about 50 years, chronic back pain, sinus surgeries, tubal ligation, appendectomy, gall bladder removed, and two neck surgeries. Pt. lives alone. Her hobbies include playing cards, working in the yard, and walking her dogs. Objective Objective: Palpation- Tenderness over right elbow Observation- Incision of right posterior elbow Left shoulder AROM- WNL for all motions Right shoulder AROM- WFL for all motions Left elbow AROM flexion 140 degrees and extension 0 degrees Right elbow AROM flexion 90 degrees and extension -40 degrees Left shoulder strength flexion 5/5, abduction 5/5, ER 5/5, IR 5/5, elbow flexion 5/5, elbow extension 5/5, wrist flexion 5/5, wrist extension 5/5, wrist UD 5/5, wrist RD 5/5, wrist supination 5/5, wrist pronation 5/5 Right UE strength- NT Balance/Special Test Scores Quick DASH Score: 90.9075 Goals Goal 1:: Pt. will be independent with home exercise program. Goal Time Frame: 4-6 Weeks Goal 2:: Pt. will improve right elbow AROM flexion > 110 degrees and extension < 20 degrees in order to improve ADL's. Goal Time Frame: 6-8 Weeks Goal 3:: Pt. will be able to complete UE dressing and bathing with no pain or difficulty. Goal Time Frame: 6-8 Weeks Goal 4:: Pt. will improve right UE strength to 4/5 for all motions in order to complete ADL's. Goal Time Frame: 8-12 Weeks Goal 5:: Pt. will be able to lift at least 15# with no right elbow pain. Goal Time Frame: 8-12 Weeks Goal 6:: Pt. will improve Quick Dash score by 20 percent in order to complete ADL's. Goal Time Frame: 8-12 Weeks Rehabilitation Potential Physical Therapy Diagnosis: Decreased right elbow ROM, UE strength, and pain. Rehabilitation Potential: Good Anticipated Interventions Patient/Client Instruction: Educate patient on: Condition and Plan of Care For the Purpose of:: To decrease pain, To decrease swelling/inflammation, To increase ROM, To improve ability to perform ADL's, To improve performance and independence with ADL's, To increase flexibility/ROM, To assume or resume ADL's and To improve tolerance to ADL's Therapeutic Exercise to Include: Strength training, Passive ROM and Active ROM Comment: Continue with gentle UE ROM for week 2-6. Progress per physician orders after this. For the Purpose of:: To decrease pain, To decrease swelling/inflammation, To increase ROM, To improve ability to perform ADL's, To improve performance and independence with ADL's, To increase flexibility/ROM, To assume or resume ADL's and To improve tolerance to ADL's Functional Training to Include: ADL Training For the Purpose of:: To decrease pain, To increase ROM, To improve ability to perform ADL's, To improve performance and independence with ADL's, To assume or resume ADL's and To improve tolerance to ADL's Manual Therapy Techniques to Include: Passive ROM and Soft tissue mobilization For the Purpose of:: To decrease pain, To increase ROM, To improve ability to perform ADL's, To improve performance and independence with ADL's, To increase flexibility/ROM, To assume or resume ADL's and To improve tolerance to ADL's Orthotics: Brace Supportive Equipment: Compression garments and Wraps For the Purpose of:: To decrease pain, To decrease swelling/inflammation, To improve ability to perform ADL's, To improve performance and independence with ADL's, To assume or resume ADL's and To improve tolerance to ADL's TENS: Yes IF ES: Yes Cryotherapy (ice pack, ice massage): Yes For the Purpose of:: To decrease pain, To decrease swelling/inflammation, To improve ability to perform ADL's, To improve performance and independence with ADL's and To improve tolerance to ADL's Text: Thank you for the opportunity to evaluate your patient. For Medicare and Medicare HMO plans, please review the plan of care and approve it. It will need to be FAXED BACK to us at [phone] for Medicare purposes. For Medicare only, by signing this I certify the plan of care. Please let me know if there are questions or concerns regarding this plan of care. Physician Signature: Date:
--- NOTE | 2025-06-21 15:42 | HP.PT.NRP ---
Patient Information Patient Information: BRITNEY NICOLE was seen in my office for initial evaluation on 03/30/25. The following Plan of Care was established for this patient: POC Established Initial Frequency: 1-2x /Week Initial Duration: 2 Months Anticipated Interventions Patient/Client Instruction: Educate patient on: Condition and Plan of Care For the Purpose of:: To decrease pain, To decrease swelling/inflammation, To increase ROM, To improve ability to perform ADL's, To improve performance and independence with ADL's, To increase flexibility/ROM, To assume or resume ADL's and To improve tolerance to ADL's Therapeutic Exercise to Include: Strength training, Passive ROM and Active ROM For the Purpose of:: To decrease pain, To decrease swelling/inflammation, To increase ROM, To improve ability to perform ADL's, To improve performance and independence with ADL's, To increase flexibility/ROM, To assume or resume ADL's and To improve tolerance to ADL's Functional Training to Include: ADL Training For the Purpose of:: To decrease pain, To increase ROM, To improve ability to perform ADL's, To improve performance and independence with ADL's, To assume or resume ADL's and To improve tolerance to ADL's Manual Therapy Techniques to Include: Passive ROM and Soft tissue mobilization For the Purpose of:: To decrease pain, To increase ROM, To improve ability to perform ADL's, To improve performance and independence with ADL's, To increase flexibility/ROM, To assume or resume ADL's and To improve tolerance to ADL's Orthotics: Brace Supportive Equipment: Compression garments and Wraps For the Purpose of:: To decrease pain, To decrease swelling/inflammation, To improve ability to perform ADL's, To improve performance and independence with ADL's, To assume or resume ADL's and To improve tolerance to ADL's TENS: Yes IF ES: Yes Cryotherapy (ice pack, ice massage): Yes For the Purpose of:: To decrease pain, To decrease swelling/inflammation, To improve ability to perform ADL's, To improve performance and independence with ADL's and To improve tolerance to ADL's Last Seen Last Seen: This patient was last seen in our office 04/27/25. Pertinent comments regarding their Physical therapy will appear below: Pt seen 2 visits of POC for x progression of ROM. Did not schedule or attend any further visits. at this point, it has been over 6 weeks and I will discontinue from my care. At this point I will be discontinuing this patient from physical therapy. I would be happy to see this patient again in the future if found appropriate by the physician. Thank you! Dylan Jolley, DPT, OCS, CSCS Balance/Gait/Functional tests Balance/Special Test Scores Quick DASH Score: [phone]
== END 2025-04-27 19:00 | disposition home or self-care (01) ==
LOC: PT 12:00
PROVIDERS: PCP Internal Medicine; Referring Provider Orthopaedic Surgery Orthopaedic Surgery of the Spine; Visit Provider Orthopaedic Surgery Orthopaedic Surgery of the Spine
DX: S42.401D Unspecified fracture of lower end of right humerus, subsequent encounter for fracture with routine healing (principal)
CPT/HCPCS: 97110; 97162; 97530

== ENCOUNTER → 2025-09-07 | Outpatient (CLI) | payer MEDICARE, SELFPAY ==
[2025-09-07 16:41] LABS: Hematocrit 37.3 % (37-47); Hemoglobin 12.4 g/dL (12.0-15.0); Immature Granulocytes Count 0.040 X10^3/uL (0.0-0.0); Mean Corp Hgb Conc 33.2 g/dL (32-36); Mean Corpuscular Volume 84.0 fL (81-99); Mean Platelet Vol. 9.4 fl (6.2-12.0); NRBC Flagged by Analyzer 0 % (0-5); Platelet Count 430 K/mm3 (150-450); RBC Distribution Width CV 13.6 % (11.6-14.6); RBC Distribution Width SD 42.1 fl (35.1-43.9); Red Blood Count 4.44 M/mm3 (4.2-5.4); White Blood Count 8.5 K/mm3 (4.4-11.0)
[2025-09-07 17:22] LABS: AST(SGOT) 22 U/L (<=31); Alanine Aminotransfer ALT/SGPT 14 U/L (<=34); Albumin, Serum 4.0 g/dL (3.4-4.8); Alkaline Phosphatase 94 U/L (35-104); Anion Gap 11 (5-15); BUN 6 mg/dL (4-19); BUN/Creat Ratio 8.3 RATIO (10-20); Bilirubin, Direct 0.11 mg/dL (0.00-0.30); Calcium,Total 9.5 mg/dL (7.6-11.0); Carbon Dioxide 25.6 mmol/L (21.0-32.0); Chloride 106 mmol/L (98-108); Cholesterol 218 mg/dL (<=200); Globulin 2.8 g/dL (2.2-4.2); Glucose 84 mg/dL (70-99); Low Density Lipoprotein Calc. 123 mg/dL; Potassium 3.6 mmol/L (3.3-5.1); Pro- Brain NATRIURETIC PEPTIDE 123 pg/mL (<=900); Triglycerides 186 mg/dL; Very Low Density Lipoprotein 37 mg/dL (5-40); cholesterol:hdl ratio screen 3.49
[2025-09-07 17:36] LABS: Cholesterol 222 mg/dL (<=200); Low Density Lipoprotein Calc. 126 mg/dL; Triglycerides 188 mg/dL; Very Low Density Lipoprotein 38 mg/dL (5-40); Vitamin D,25 Hydroxy 54.2 ng/mL (30-100); cholesterol:hdl ratio screen 3.50
== END | disposition home or self-care (01) ==
LOC: LAB 14:59
PROVIDERS: Internal Medicine Endocrinology, Diabetes & Metabolism; PCP Internal Medicine; Referring Provider Nurse Practitioner Gerontology; Visit Provider Nurse Practitioner Gerontology
DX: S42.401A Unspecified fracture of lower end of right humerus, initial encounter for closed fracture (principal); E78.2 Mixed hyperlipidemia; E55.9 Vitamin D deficiency, unspecified; E03.9 Hypothyroidism, unspecified; R06.02 Shortness of breath; X58.XXXA Exposure to other specified factors, initial encounter
CPT/HCPCS: 36415; 80048; 80061; 80076; 82306; 83880; 85025

== ENCOUNTER → 2025-09-11 | Outpatient (CLI) | payer MEDICARE, SELFPAY ==
--- OUTSIDE RECORDS SUMMARY | 2025-09-11 07:23 | XMS RPT_ITS | CCD ---
Author Organization [facility] Care Team Providers [facility] Director Name Role Phone SAM LAZARO E Unavailable Unavailable CEBUL III, MARE A Unavailable Unavailable CATINAARETHA WAYNE Unavailable Unavailable CATINAARETHA Unavailable Unavailable SAM, LAZARO E Unavailable Unavailable SAM, LAZARO E Unavailable Unavailable SAM, LAZARO Unavailable Unavailable CEBUL, MARE Unavailable Unavailable CEBUL, MARE Unavailable Unavailable SAM, LAZARO Unavailable Unavailable CEBUL, MARE Unavailable Unavailable CEBUL, MARE Unavailable Unavailable CATINA, ARETHA Unavailable Unavailable CATINA, ARETHA Unavailable Unavailable CEBUL, MARE Unavailable Unavailable SAM, LAZARO Unavailable Unavailable CEBUL, MARE Unavailable Unavailable SAM, LAZARO Unavailable Unavailable SAM, LAZARO Unavailable Unavailable SAM, LAZARO Unavailable Unavailable CEBUL, MARE Unavailable Unavailable ABDOLLAHI MOFAKHAM, ALEXUS Unavailable Unav ailable ABDOLLAHI MOFAKHAM, ALEXUS Unavailable Unav ailable CEBUL III, MARE A Unavailable Unavailable NEYHART CALDERON, SHAMEKA Unavailable Unavail able NEYHART CALDERON, SHAMEKA Unavailable Unavail able Cebul MD ARBEN, Mare A Unavailable Unavailab James Noble MD Primary Care Provider [facility], Keti Unavailable Dr. James Watson Primary Care Provider [phone] Nabeel Schaeffer Attending Provider Unavailable Dr. James Watson Referring Provider Dr. Dannielle Thomas Attending Provider Dr. Reji Fonseca Attending Provider [phone] Dr. Gualberto Gomez Attending Provider Dr. Dannielle Thomas Primary Care Provider Dr. Dannielel Thomas Referring Provider [phone] Dr. Aime Timmons Attending Provider Terrell, Dr. Ramirez Primary Care Provider Terrell, Dr. Ramirez Referring Provider Dr. Dannielle Thomas Attending Provider [phone] Dr. Reji Fonseca Attending Provider [phone] Dr. Gualberto Gomez Attending Provider [phone] Dannielle Thomas Primary Care Provider Dr. Dannielle Thomas Referring Provider [phone] Dr. Aime Timmons Attending Provider [phone] Nabeel Schaeffer Attending Provider Unavailable Dr. Kumar Manzanares Attending Provider Terrell, Dr. Ramirez Primary Care Provider Conger, Dr. Ramirez Referring Provider Dr. Dannielle Thomas Attending Provider [phone] Dr. Kumar Manzanares Referring Provider Meggan THEODORE MD, Mare Kaiser Unavailable Unavailab miguelito Watson MD, James Humphrey Primary Care Provider [facility], Keti Unavailable Dr. Dannielle Thomas Primary Care Provider Dr. Dannielle Thomas Referring Provider [phone] Dr. Aime Timmons Attending Provider [phone] Dr. Gualberto Gomez Attending Provider [phone] Inez Rousseau Referring Provider Jewel TRAFFIC INVESTIGATOR, TRAFFIC INVESTIGATOR-C Eloise Attending Provider Jamaal TRAFFIC INVESTIGATOR, TRAFFIC INVESTIGATOR-C Wendy Attending Provider Dr. Dannielle Thomas Primary Care Provider Dr. Dannielle Thomas Referring Provider [phone] Dr. Gualberto Gomez Attending Provider [phone] Gualberto Gomez Referring Provider Dr. Dannielle Thomas Primary Care Provider Dr. Dannielle Thomas Referring Provider Jamaal TRAFFIC INVESTIGATOR, TRAFFIC INVESTIGATOR-C Wendy Attending Provider Dr. Dannielle Thomas Attending Provider Dr. Dannielle Thomas Primary Care Provider Dr. Dannielle Thomas Primary Care Provider Dr. Dannielle Thomas Attending Provider Dr. Dannielle Thomas Referring Provider Dr. Pranav Brice Attending Provider Jewel TRAFFIC INVESTIGATOR, TRAFFIC INVESTIGATOR-C Eloise Referring Provider Jewel TRAFFIC INVESTIGATOR, TRAFFIC INVESTIGATOR-C Eloise Other Provider Dr. Kaz Hodge Attending Provider Dr. Dannielle Thomas Primary Care Provider Dr. Dannielle Thomas Referring Provider Dr. Kumar Manzanares Attending Provider Dr. Elvis Sharif Attending Provider Dannielle Thomas MD Primary Care Provider [phone] DANNIELLE THOMAS Primary Care Unavailable Terrell MONTILLA, James Humphrey Primary Care Provider [facility], [facility] Nashi Unavailable William MONTILLA, Dr. Dupree Primary Care Provider Dr. Dannielle Thomas MD Attending Provider Dr. Dannielle Thomas MD Referring Provider Dr. Dannielle Thomas MD Other Provider Jassi MONTILLA, Dr. Lovell Attending Provider Dr. Beau Edmonds DO Attending Provider [phone] Dr. Beau Edmonds DO Emergency Provider King ROLDAN, Dr. Leal Attending Provider William MONTILLA, Dr. Dupree Primary Care Provider William MONTILLA, Dr. Dupree Attending Provider William MONTILLA, Dr. Dupree Referring Provider Grey LIZARRAGA, Dr. Yanez Attending Provider Edmonds DO, Dr. Yanez Emergency Provider King ROLDAN, Dr. Leal Attending Provider Dago MONTILLA, Dr. Lehman Attending Provider Miguelito LIZARRAGA, Dr. Sutton Referring Provider Miguelito DO, Dr. Sutton Emergency Provider William MONTILLA, Dr. Dupree Primary Care Provider William MONTILLA, Dr. Dupree Attending Provider William MONTILLA, Dr. Dupree Referring Provider Dago MONTILLA, Dr. Lehman Attending Provider Miguelito LIZARRAGA, Dr. Sutton Attending Provider Miguelito LIZARRAGA, Dr. Sutton Referring Provider Miguelito DO, Dr. Sutton Emergency Provider Gurwinder Urena MD Attending Provider Gurwinder Urena MD Referring Provider Gurwinder Urena MD Other Provider Jason MONTILLA, Dr. Burciaga Attending Provider Dr. Dominik Loza MD Referring Provider Dr. Dominik Loza MD Referring Provider Dr. Dannielle Thomas MD Primary Care Provider William MONTILLA, Dr. Dupree Attending Provider Dr. Dannielle Thomas MD Referring Provider Bam Ely Attending Provider William MONTILLA, Dr. Dupree Primary Care Provider William MONTILLA, Dr. Dupree Attending Provider William MONTILLA, Dr. Durpee Referring Provider Dago MONTILLA, Dr. Lehman Attending Provider King ROLDAN, Dr. Leal Attending Provider Onelia MONTILLA, Dr. Wiley Attending Provider William MONTILLA, Dr. Dupree Primary Care Provider William MONTILLA, Dr. Dupree Referring Provider Gurwinder Urena MD Attending Provider Jason MONTILLA, Dr. Burciaga Attending Provider Onelia MONTILLA, Dr. Wiley Attending Provider William, Dannielle Referring Unavailable William, Dannielle Attending Unavailable William, Dannielle Primary Care Unavailable William, Dannielle Referring Unavailable William, Dannielle Attending Unavailable William, Dannielle Primary Care Unavailable Mollison, Gurwinder Referring Unavailable William, Dannielle Primary Care Unavailable Mollison, Guriwnder Attending Unavailable William, Dannielle Primary Care Unavailable Dominik Loza Attending Unavailable Dominik Loza Referring Unavailable William, Dannielle Referring Unavailable William, Dannielle Primary Care Unavailable William, Dannielle Attending Unavailable William, Dannielle Primary Care Unavailable Gualberto Gomez Attending Unavailable William, Dannielle Referring Unavailable William, Dannielle Primary Care Unavailable Mollison, Gurwinder Attending Unavailable William, Dannielle Referring Unavailable William, Dannielle Primary Care Unavailable Dominik Loza Attending Unavailable William, Dannielle Attending Unavailable William, Dannielle Primary Care Unavailable William, Dannielle Referring Unavailable William, Dannielle Attending Unavailable William, Dannielle Primary Care Unavailable William, Dannielle Attending Unavailable William, Dannielle Referring Unavailable William, Dannielle Primary Care Unavailable William, Dannielle Primary Care Unavailable Sara Lobo Referring Unavailable Sara Lobo Attending Unavailable William, Dannielle Primary Care Unavailable Jamaal TRAFFIC INVESTIGATOR, Wendy Attending Unavailable Jamaal BENJAMIN, Wendy Referring Unavailable William, Dannielle Referring Unavailable William, Dannielle Attending Unavailable William, Dannielle Primary Care Unavailable William, Dannielle Primary Care Unavailable Dominik Loza Attending Unavailable Dominik Loza Referring Unavailable William, Dannielle Referring Unavailable William, Dannielle Primary Care Unavailable William, Dannielle Attending Unavailable Beau Edmonds Attending Unavailable William, Dannielle Primary Care Unavailable William, Dannielle Attending Unavailable William, Dannielle Primary Care Unavailable Gurwinder Urena Attending Unavailable William, Dannielle Referring Unavailable William, Dannielle Primary Care Unavailable William, Dannielle Primary Care Unavailable Avery Gonzalez Attending Unavailable Le, Herman Referring Unavailable Le, Herman Attending Unavailable William, Dannielle Primary Care Unavailable William, Dannielle Attending Unavailable William, Dannielle Referring Unavailable William, Dannielle Primary Care Unavailable William, Dannielle Referring Unavailable William, Dannielle Primary Care Unavailable Sara Lobo Attending Unavailable William, Dannielle Referring Unavailable William, Dannielle Primary Care Unavailable Wendy Hinton NP Attending Unavailable Iwlliam, Dannielle Primary Care Unavailable Gualberto Gomez Attending Unavailable Gurwinder Urena Attending Unavailable William, Dannielle Referring Unavailable William, Dannielle Primary Care Unavailable William, Dannielle Primary Care Unavailable Gualberto Gomez Attending Unavailable William, Dannielle Primary Care Unavailable Inez Rousseau Attending Unavailable William, Dannielle Referring Unavailable Eloise Holloway NP Attending Unavailable William, Dannielle Primary Care Unavailable Gurwinder Urena Referring Unavailable Gurwinder Urena Consulting Unavailable William, Dannielle Primary Care Unavailable Gurwinder Urena Attending Unavailable Gurwinder Urena Attending Unavailable William, Dannielle Primary Care Unavailable Le, Herman Referring Unavailable William, Dannielle Referring Unavailable William, Dannielle Primary Care Unavailable Liliya Keene Attending Unavailabl lyn William, Dannielle Consulting Unavailable William, Dannielle Attending Unavailable William, Dannielle Primary Care Unavailable William, Dannielle Referring Unavailable Elvis Sharif Attending Unavailable William, Dannielle Primary Care Unavailable William, Dannielle Attending Unavailable William, Dannielle Primary Care Unavailable William, Dannielle Referring Unavailable William, Dannielle Primary Care Unavailable Elvis Sharif Attending Unavailable Bam Ely Attending Unavailable William, Dannielle Referring Unavailable William, Dannielle Primary Care Unavailable William, Dannielle Referring Unavailable William, Dannielle Primary Care Unavailable Inez Rousseau Attending Unavailable William, Dannielle Primary Care Unavailable Pranav Brice Attending Unavailable William Dannielle Referring Unavailable William, Dannielle Primary Care Unavailable Gurwinder Urena Attending Unavailable Allergies Allergy Classification Reported Allergen(s) Allergy Type Date of Onset Reaction(s) Facility (20 sources) acetaminophen / HYDROcodone; Translations: [HYDROCODONE-ACET AMINOPHEN] Drug Allergy 6 [facility] Repository (20 sources) acetaminophen / oxyCODONE; Translations: [OXYCODONE-ACETAM INOPHEN] Drug Allergy 0 Itching [facility] Repository (20 sources) Adhesive Tape; Translations: [ADHESIVE TAPE (ROSINS)] Propensity to adverse reactions (disorder) 2 Rash, Itching [facility] Repository (20 sources) carBAMazepine; Translations: [CARBAMAZEPINE] Drug Allergy 5 Mental Status Change [facility] Repository (20 sources) cephalexin; Translations: [CEPHALEXIN] Drug Allergy 6 Swelling, Itching, Shortness of Breath [facility] Repository (20 sources) doxycycline; Translations: [DOXYCYCLINE CALCIUM] Drug Allergy 7 Hives, Itching [facility] Repository (3 sources) HYDROmorphone; Translations: [HYDROMORPHONE (BULK)] Drug Allergy 0 AOF [facility] Repository (20 sources) HYDROmorphone; Translations: [HYDROMORPHONE HCL] Drug Allergy 7 Other: See Comments, Shortness of Breath [facility] Repository (20 sources) Latex; Translations: [LATEX] Propensity to adverse reactions to drug (disorder) 3 Rash [facility] Repository (20 sources) levoFLOXacin; Translations: [LEVOFLOXACIN] Drug Allergy 3 Itching [facility] Repository (20 sources) lisinopril; Translations: [LISINOPRIL] Drug Allergy 5 Other: See Comments, Cough [facility] Repository (20 sources) oxyCODONE; Translations: [OXYCODONE] Drug Allergy 0 Itching, Hives, Swelling [facility] Repository (20 sources) penicillin; Translations: [PENICILLIN] Drug Allergy 7 Anaphylaxis [facility] Repository (20 sources) Penicillins; Translations: [PENICILLINS] Propensity to adverse reactions to drug (disorder) 6 AOF, Anaphylaxis [facility] Repository (20 sources) Sulfonamides (Antibiotic); Translations: [SULFA (SULFONAMIDE ANTIBIOTICS)] Propensity to adverse reactions to drug (disorder) 6 Hives [facility] Repository (20 sources) PROPOXYPHENE N-ACETAMINOPHEN; Translations: [PROPOXYPHENE N-ACETAMINOPHEN] Propensity to adverse reactions to drug (disorder) 0 Itching [facility] Repository (20 sources) POLYMYXIN B SULF-TRIMETHOPRIM ; Translations: [POLYMYXIN B SULF-TRIMETHOPRIM ] Propensity to adverse reactions to drug (disorder) 5 Swelling, Itching [facility] Repository (20 sources) HEPARIN ANALOGUES; Translations: [HEPARIN ANALOGUES] Propensity to adverse reactions to drug (disorder) 3 Hives, Swelling [facility] Repository (4 sources) OTHER; Translations: [OTHER] Propensity to adverse reactions (disorder) 6 [facility] Repository (20 sources) Acetaminophen; Translations: [ACETAMINOPHEN] Drug Allergy 9 Hives [facility] (20 sources) Adhesive agent; Translations: [ADHESIVE] Drug Allergy 9 Rash [facility] (20 sources) Budesonide; Translations: [BUDESONIDE] Drug Allergy 0 Angioedema [facility] (14 sources) Budesonide / formoterol; Translations: [BUDESONIDE-FORMO TEROL] Drug Allergy 0 Vomiting [facility] (20 sources) Dust; Translations: [DUST] Allergy to substance 0 Unknown [facility] (20 sources) formoterol; Translations: [FORMOTEROL] Drug Allergy 0 Angioedema [facility] (20 sources) House dust mite; Translations: [DUST MITES] Allergy to substance 0 Unknown, Intolerance [facility] (20 sources) Oxytocin; Translations: [OXYTOCIN] Drug Allergy 9 [facility] (20 sources) Propoxyphene; Translations: [PROPOXYPHENE] Drug Allergy 9 [facility] (15 sources) EES [Other] Propensity to adverse reactions 6 [facility] Work Phone: (20 sources) Cephalexin; Translations: [cephalexin monohydrate] Drug Allergy 1 [facility] (20 sources) HYDROcodone; Translations: [hydrocodone bitartrate] Drug Allergy 1 [facility] (20 sources) oxyCODONE; Translations: [oxycodone HCl] Drug Allergy 1 [facility] (20 sources) Propoxyphene; Translations: [propoxyphene napsylate] Drug Allergy 1 [facility] (7 sources) Adhesive agent Drug Allergy 9 [facility] (7 sources) Budesonide / formoterol Drug Allergy 0 Vomiting [facility] (1 source) Acetaminophen Drug Allergy 5 [facility] Repository (1 source) Adhesive agent Drug allergy (disorder) 5 [facility] Repository (1 source) Budesonide Drug Allergy 5 [facility] Repository (1 source) formoterol Drug Allergy 5 [facility] Repository (1 source) Oxytocin Drug Allergy 5 [facility] Repository Medications Current Medications Medication Drug Class(es) Dates Sig (Normalized) Sig (Original) aspirin 81 mg delayed release oral tablet (15 sources) Platelet Aggregation Inhibitor, Nonsteroidal Anti-inflammatory Drug Start: 05-21-2023 take 1 tablet by mouth once daily Aspirin 81 mg tablet,delayed release (DR/EC) Active 81 mg PO DAILY 30 0 May 21, 2023 12:00am azithromycin 250 mg oral tablet (20 sources) Macrolide Antimicrobial Start: 05-19-2025 take 2-5 tablets by mouth once daily Azithromycin 250 mg tablet Active 0 PO .COMPLEX 6 0 May 19, 2025 12:00am take 500 mg today (day 1), then 250 mg for 4 days (days 2-5) PO Start: 01-20-2025 End: 01-27-2025 take 1 tablet by mouth once at mealtime Azithromycin 500 mg tablet Discontinued 500 mg PO ONCE 7 7 0 January 20, 2025 1:00am January 26, 2025 12:00am January 27, 2025 12:15am Take with food. Start: 12-23-2024 End: 01-23-2025 Azithromycin 250 mg tablet Discontinued 0 PO .COMPLEX 6 0 December 23, 2024 1:00am January 23, 2025 2:37pm For 250 mg dose pack: take 500 mg today (day 1), then 250 mg for 4 days (days 2-5) PO Start: 12-23-2022 End: 01-23-2023 take 1 tablet by mouth once Azithromycin 250 mg tablet Discontinued 250 mg PO ONCE December 23, 2022 1:00am January 23, 2023 12:08pm Start: 01-25-2020 End: 02-07-2020 Azithromycin 250 mg capsule Discontinued mg PO January 25, 2020 12:00am February 07, 2020 4:09pm benzonatate 100 mg oral capsule (6 sources) Non-narcotic Antitussive Start: 05-19-2025 take 2 capsules by mouth three times daily as needed for cough Benzonatate 100 mg capsule Active 200 mg PO THREE TIMES A DAY as needed for cough 30 0 May 19, 2025 12:00am Start: 03-03-2022 End: 03-19-2022 take 1 capsule by mouth every eight hours as needed benzonatate (TESSALON PERLES) 100 mg capsule Take 1 capsule by mouth three times daily as needed for cough. 15 capsule 0 03/03/2022 03/19/2022 Discontinued Comment on above: Take 1 capsule by mo [facility] three times daily as needed for cough. clarithromycin 500 mg oral tablet (3 sources) Macrolide Antimicrobial Start: End: take 1 tablet by mouth every twelve hours clarithromycin (BIAXIN) 500 mg Indications: Bronchitis Take 1 tablet by mouth every 12 hours for 10 days. 20 tablet 0 03/19/2022 03/29/2022 Active Comment on above: Take 1 tablet by [facility] every 12 hours for 10 days. docusate sodium 100 mg oral capsule (6 sources) Start: 025 take 1 capsule by mouth twice daily Docusate Sodium (Dulcolax Stool Softener (Dss)) 100 mg capsule Active 100 mg PO TWICE A DAY March 07, 2025 12:00am ezetimibe 10 mg oral tablet (20 sources) Dietary Cholesterol Absorption Inhibitor Start: End: 024 take 1 tablet by mouth once daily Ezetimibe (Zetia) 10 mg tablet Active 10 mg PO DAILY October 05, 2024 2:02pm fluticasone propionate 0.05 mg/actuat metered dose nasal spray (8 sources) Corticosteroid Start: take 2 spray(s) by mouth once daily fluticasone (FLONASE) 50 mcg/actuation nasal spray Use 2 Sprays in each nostril once daily. Rinse mouth after use. 1 Each 04/03/2022 Active Comment on above: Use 2 Sprays in each nostril once daily. Rinse mouth after use. Fluticasone Furoate-Vilanterol (20 sources) Corticosteroid, beta2-Adrenergic Agonist Start: Fluticasone Furoate-Vilanterol (Breo Ellipta) 200-25 mcg/dose blister with device Active 1 INH INHALATION daily June 06, 2022 1:11pm after inhalation, rinse mouth with water and spit out; do not swallow Start: 06-06-2022 Fluticasone Fu roate-Vilanterol (Breo Ellipta) 200-25 mcg/dose blister with device Active 1 INH INHALATION daily June 06, 2022 2:11pm after inhalation, rinse mouth with water and spit out; do not swallow Start: 07-09-2021 fluticasone-vi lanterol (BREO ELLIPTA) 200-25 mcg/dose inhaler Indications: Moderate persistent asthma with acute exacerbation Inhale 1 Inhalation as instructed once daily. Inhale one puff once daily. DO NOT CLICK OPEN UNTIL READY FOR DOSE 30 Each 5 07/09/2021 Active Start: 01-04-2020 End: 06-06-2022 Fluticasone Furoate-Vilanter ol (Breo Ellipta) 200-25 mcg/dose blister with device Discontinued 1 NMA INHALATION daily 60 6 January 04, 2020 1:00am June 06, 2022 2:12pm after inhalation, rinse mouth with water and spit out; do not swallow Start: 01-04-2020 End: 06-06-2022 Start: 01-04-2020 End: 06-06-2022 Fluticasone Furoate-Vilanter ol (Breo Ellipta) 200-25 mcg/dose blister with device Discontinued 1 NMA INHALATION daily 60 January 04, 2020 1:00am June 06, 2022 2:12pm after inhalation, rinse mouth with water and spit out; do not swallow Start: 01-04-2020 End: 06-06-2022 Fluticasone Furoate-Vilanter ol (Breo Ellipta) 200-25 mcg/dose blister with device Discontinued 1 INH INHALATION daily 60 January 04, 2020 12:00am June 06, 2022 1:12pm after inhalation, rinse mouth with water and spit out; do not swallow Start: 01-04-2020 End: 06-06-2022 Fluticasone Furoate-Vilanter ol (Breo Ellipta) 200-25 mcg/dose blister with device Discontinued 1 INH INHALATION daily 60 January 04, 2020 1:00am June 06, 2022 2:12pm after inhalation, rinse mouth with water and spit out; do not swallow Start: 01-04-2020 Fluticasone Fu roate-Vilanterol (Breo Ellipta) 200-25 mcg/dose blister with device Active 1 INH INHALATION daily 60 January 04, 2020 1:00am after inhalation, rinse mouth with water and spit out; do not swallow Start: 10-01-2018 End: 09-13-2019 Fluticasone Furoate-Vilanter ol (Breo Ellipta) 200-25 mcg/dose blister with device Discontinued 1 NMA INHALATION daily 60 October 01, 2018 1:00am September 13, 2019 9:03am after inhalation, rinse mouth with water and spit out; do not swallow Start: 10-01-2018 End: 09-13-2019 Start: 10-01-2018 End: 09-13-2019 Fluticasone Furoate-Vilanter ol (Breo Ellipta) 200-25 mcg/dose blister with device Discontinued 1 NMA INHALATION daily 60 October 01, 2018 1:00am September 13, 2019 9:03am after inhalation, rinse mouth with water and spit out; do not swallow Start: 10-01-2018 End: 09-13-2019 Fluticasone Furoate-Vilanter ol (Breo Ellipta) 200-25 mcg/dose blister with device Discontinued 1 INH INHALATION daily 60 October 01, 2018 12:00am September 13, 2019 8:03am after inhalation, rinse mouth with water and spit out; do not swallow Start: 10-01-2018 End: 09-13-2019 Fluticasone Furoate-Vilanter ol (Breo Ellipta) 200-25 mcg/dose blister with device Discontinued 1 INH INHALATION daily 60 October 01, 2018 1:00am September 13, 2019 9:03am after inhalation, rinse mouth with water and spit out; do not swallow Start: 01-15-2018 End: 12-07-2018 Start: 01-15-2018 End: 12-07-2018 take 1 dose by inhalation once daily Fluticasone Furoate-Vilanterol 1 EACH blister with device Discontinued 1 NMA IH DAILY January 15, 2018 1:00am December 07, 2018 3:47pm Start: 01-15-2018 End: 12-07-2018 Fluticasone Furoate-Vilanter ol Discontinued 1 EACH IH DAILY January 15, 2018 12:00am December 07, 2018 2:47pm Start: 01-15-2018 End: 12-07-2018 Fluticasone Furoate-Vilanter ol Discontinued 1 EACH IH DAILY January 15, 2018 1:00am December 07, 2018 3:47pm Comment on above: Inhale 1 Inhalation as instructed once daily. Inhale one puff once daily. DO NOT CLICK OPEN UNTIL READY FOR DOSE loratadine 10 mg oral tablet (20 sources) Start: 03-08-2025 take 1 tablet by mouth once daily Loratadine 10 mg tablet Active 10 mg PO DAILY March 08, 2025 12:00am Start: 01-15-2018 End: 01-25-2020 take 1 tablet by mouth once daily Loratadine 10 MG tablet Discontinued 10 mg PO DAILY January 15, 2018 1:00am January 25, 2020 3:17pm nitroglycerin 0.4 mg sublingual tablet (20 sources) Nitrate Vasodilator Start: 01-23-2023 Nitroglyce rin 0.4 mg tablet, sublingual Active 0.4 mg SL every 5 to 15 minutes as needed for chest pain 07 02January 23, 2023 12:48pm Start: 01-23-2023 Nitroglycerin Active 0.4 MG SL every 5 to 15 minutes January 23, 2023 12:48pm Start: 02-05-2017 End: 01-23-2023 Nitroglycerin 0.4 MG tablet, sublingual Discontinued 0.4 mg SL NEEDED as needed for chest pain February 05, 2017 12:00am January 23, 2023 12:49pm Start: 02-05-2017 End: 01-23-2023 Start: 02-05-2017 End: 01-23-2023 Nitroglycerin Discontinued 0 .4 MG SL NEEDED February 05, 2017 12:00am January 23, 2023 12:49pm Comment on above: Dissolve 1 tablet un elisa the tongue as needed. FOR CHEST PAIN. IF NO RELIEF CALL 911 PEP device (20 sources) Start: 02-27-2020 PEP device Active 0 .ROUTE .MEDSUPPLY 1 0 February 27, 2020 12:00am Bronchiectasis, uncomplicated with training Start: 02-27-2020 PEP device Act mayuri 0 .ROUTE .MEDSUPPLY 1 February 26, 2020 11:00pm with training Start: 02-27-2020 PEP device Act mayuri 0 .ROUTE .MEDSUPPLY 1 February 27, 2020 12:00am with training Semaglutide (Ozempic) 2 mg/d ose (8 mg/3 mL) pen injector (20 sources) Start: 03-03-2025 Semaglutide (O zempic) 2 mg/dose (8 mg/3 mL) pen injector Active 2 mg SC WE March 03, 2025 12:00am Start: 01-09-2025 End: 03-02-2025 Semaglutide (Ozempic) 2 mg/d ose (8 mg/3 mL) pen injector Discontinued 2 mg SC EVERY WEEK 3 4 January 09, 2025 4:41pm March 02, 2025 8:09pm Diabetes mellitus Type 2 diabetes mellitus with hyperglycemia Start: 01-09-2025 End: 03-02-2025 Semaglutide (Ozempic) 2 mg/d ose (8 mg/3 mL) pen injector Discontinued 2 mg SC EVERY WEEK 3 January 09, 2025 4:41pm March 02, 2025 8:09pm Start: 01-09-2025 Semaglutide (O zempic) 2 mg/dose (8 mg/3 mL) pen injector Active 2 mg SC EVERY WEEK 3 January 09, 2025 4:41pm Start: 08-08-2024 End: 01-09-2025 Semaglutide (Ozempic) 2 mg/d ose (8 mg/3 mL) pen injector Discontinued 2 mg SC EVERY WEEK 3 August 08, 2024 12:00am January 09, 2025 4:41pm Diabetes mellitus Type 2 diabetes mellitus with hyperglycemia Start: 08-08-2024 End: 01-09-2025 Semaglutide (Ozempic) 2 mg/d ose (8 mg/3 mL) pen injector Discontinued 2 mg SC EVERY WEEK 3 August 08, 2024 12:00am January 09, 2025 4:41pm traZODone hydrochloride 50 mg oral tablet (8 sources) Serotonin Reuptake Inhibitor Start: 01-23-2025 take 0.5 tablet by mouth once daily as needed for sleep, then take 1 tablet by mouth 1 hour(s) before bedtime as needed for sleep Trazodone 50 mg tablet Active 25 mg PO daily as needed for sleep 15 12January 23, 2025 12:00am Take one-half (25 mg) to one tab (50 mg) 1 hour before bedtime. triamcinolone acetonide 1 mg/ml topical cream (1 source) Corticosteroid Start: 05-07-2024 End: 05-14-2024 triamcinolone acetonide (KENALOG) 0.1 % cream Apply 1 application to affected area three times a day for 7 days. Apply sparingly to area for rash/itching. 28.5 g 0 05/07/2024 05/14/2024 Active TRUE METRIX GLUCOSE METER (20 sources) Start: 08-26-2021 TRUE METRIX GLUCOSE METER as directed. 08/26/2021 Active Start: 08-26-2021 TRUE METRIX GL UCOSE METER as directed. 0 08/26/2021 Active Comment on above: as directed. zolpidem tartrate 5 mg oral tablet (20 sources) gamma-Aminobutyric Acid-ergic Agonist Start: 02-25-2022 End: 03-29-2022 take 1 tablet by mouth every 30 days at bedtime as needed zolpidem (AMBIEN) 5 mg tablet Indications: Insomnia, unspecified type Take 1 tablet by mouth at bedtime as needed for up to 30 days. 30 tablet 0 02/27/2022 03/19/2022 Discontinued Start: 09-27-2019 End: 01-25-2020 Zolpidem (Ambien) 5 mg table t Discontinued 5 mg PO AT BEDTIME 1 September 27, 2019 1:00am January 25, 2020 3:18pm Patient completing split night on 10/06 @[facility]. Start: 09-27-2019 End: 01-25-2020 Comment on above: Take 1 tablet by maddi th at bedtime as needed for up to 30 days. Completed/Discontinued Medications Medication Drug Class(es) Dates Sig (Normalized) Sig (Original) [id number] 200 actuat albuterol 0.09 mg/actuat metered dose inhaler (20 sources) beta2-Adrenergic Agonist Start: 11-27-2023 take 2.5 mg by inhalation every four hours Albuterol Sulfate Active 2.5 MG INHALATION Q4H 180 November 27, 2023 4:47pm Start: 07-31-2022 End: 03-03-2025 Albuterol Sulfate (Ventolin Hfa) 90 mcg/actuation HFA aerosol inhaler Discontinued 2 NMA INHALATION EVERY 6 HOURS as needed for shortness of breath or wheezing 18 March 01, 2025 10:09am March 03, 2025 4:09pm Start: 07-31-2022 End: 03-01-2025 Start: 07-31-2022 End: 12-29-2023 take 1 puff(s) by inhalation every six hours Albuterol Sulfate (Ventolin Hfa) 90 mcg/actuation HFA aerosol inhaler Active 2 PUFF INHALATION EVERY 6 HOURS March 17, 2023 2:23pm Start: 07-09-2021 take 2 puff(s) by in halation every four hours as needed for wheezing albuterol HFA (VENTOLIN HFA) 90 mcg/actuation inhaler Indications: Moderate persistent asthma with acute exacerbation Inhale 2 Puffs as instructed every 4 hours as needed for wheezing/shortness of breath. 18 g 1 07/09/2021 Active Start: 11-23-2018 End: 11-27-2023 take 2.5 mg by inhalation every four hours Albuterol Sulfate 2.5 mg /3 mL (0.083 %) solution for nebulization Discontinued 2.5 mg INHALATION Q4H 180 July 31, 2022 11:57am March 19, 2023 1:11pm Unspecified asthma, uncomplicated Start: 11-23-2018 End: 11-27-2023 Start: 09-23-2018 End: 07-31-2022 Albuterol Sulfate (Ventolin Hfa) 90 mcg/actuation HFA aerosol inhaler Discontinued 2 NMA INHALATION EVERY 6 HOURS as needed for shortness of breath or wheezing 18 September 23, 2018 1:00am July 31, 2022 11:58am Start: 09-23-2018 End: 07-31-2022 Start: 09-23-2018 End: 07-31-2022 take 1 puff(s) by inhalation every six hours Albuterol Sulfate (Ventolin Hfa) 90 mcg/actuation HFA aerosol inhaler Discontinued 2 PUFF INHALATION EVERY 6 HOURS September 23, 2018 1:00am July 31, 2022 11:58am Start: 02-05-2017 End: 12-07-2018 Albuterol Sulfate 1 INHALER inhaler Discontinued 2 NMA INHALATION EVERY 6 HOURS NEEDED as needed for Shortness Of Breath February 05, 2017 12:00am December 07, 2018 3:47pm Start: 02-05-2017 End: 12-07-2018 Start: 02-05-2017 End: 12-07-2018 take 1 puff(s) by inhalation every six hours as needed Albuterol Sulfate Discontinued 2 PUFF INHALATION EVERY 6 HOURS NEEDED February 05, 2017 12:00am December 07, 2018 3:47pm Comment on above: Inhale 2 Puffs as in structed every 4 hours as needed for wheezing/shortness of breath. Albuterol Sulfate 2.5 mg /3 mL (0.083 %) solution for nebulization (7 sources) Start: End: 11-20-2 024 take 2.5 mg by inhalation every four hours as needed Albuterol Sulfate 2.5 mg /3 mL (0.083 %) solution for nebulization Discontinued 2.5 mg INHALATION Q4H as needed for SOB 180 November 27, 2023 4:47pm October 05, 2024 11:58am Start: 11-27-2023 End: 10-05-2024 take 2.5 mg by inhalation every four hours as needed Albuterol Sulfate 2.5 mg /3 mL (0.083 %) solution for nebulization Discontinued 2.5 mg INHALATION Q4H as needed for SOB 180 November 27, 2023 4:47pm October 05, 2024 11:58am alendronic acid 70 mg oral tablet (20 sources) Bisphosphonate Start: 02-05-2017 End: 01-25-2020 take 1 tablet by mouth every week Alendronate 70 MG tablet Discontinued 70 mg PO Q7D@0700 February 05, 2017 12:00am January 25, 2020 3:17pm amitriptyline hydrochloride 50 mg oral tablet (2 sources) Tricyclic Antidepressant Start: 02-17-2022 End: 03-24-2022 take 0.5 tablet by mouth once daily at bedtime, then take 1 tablet by mouth once daily at bedtime amitriptyline (ELAVIL) 50 mg tablet Take 0.5 tablets by mouth daily at bedtime for 5 days, THEN 1 tablet daily at bedtime. 33 tablet 0 02/17/2022 02/25/2022 Discontinued (Lack of Efficacy) Comment on above: Take 0.5 tablets by mouth daily at bedtime for 5 days, THEN 1 tablet daily at bedtime. atorvastatin 80 mg oral tablet (20 sources) HMG-CoA Reductase Inhibitor Start: 02-05-2017 End: 01-25-2020 take 1 tablet by mouth at bedtime Atorvastatin 80 MG tablet Discontinued 80 mg PO AT BEDTIME February 05, 2017 12:00am January 25, 2020 3:16pm Start: 02-05-2017 End: 01-25-2020 Budesonide-Formoterol (20 sources) Corticosteroid, beta2-Adrenergic Agonist Start: 12-28-2019 End: 01-04-2020 Budesonide-Formoterol (Symbicort) 160-4.5 mcg/actuation HFA aerosol inhaler Discontinued 2 NMA INHALATION TWICE A DAY 1 3 December 28, 2019 1:56pm January 04, 2020 11:16am administer with spacer, rinse mouth after each use Start: 12-28-2019 End: 01-04-2020 Start: 12-28-2019 End: 01-04-2020 Budesonide-Formoterol (Symbi chang) 160-4.5 mcg/actuation HFA aerosol inhaler Discontinued 2 NMA INHALATION TWICE A DAY 1 December 28, 2019 1:56pm January 04, 2020 11:16am administer with spacer, rinse mouth after each use Start: 12-28-2019 End: 01-04-2020 take 1 puff(s) by mouth twice daily Budesonide-Formoterol (Symbicort) 160-4.5 mcg/actuation HFA aerosol inhaler Discontinued 2 PUFF INHALATION TWICE A DAY 1 December 28, 2019 12:56pm January 04, 2020 10:16am administer with spacer, rinse mouth after each use Start: 12-28-2019 End: 01-04-2020 take 1 puff(s) by mouth twice daily Budesonide-Formoterol (Symbicort) 160-4.5 mcg/actuation HFA aerosol inhaler Discontinued 2 PUFF INHALATION TWICE A DAY 1 December 28, 2019 1:56pm January 04, 2020 11:16am administer with spacer, rinse mouth after each use Start: 09-13-2019 End: 12-28-2019 Budesonide-Formoterol (Symbi chang) 160-4.5 mcg/actuation HFA aerosol inhaler Discontinued 2 NMA INHALATION TWICE A DAY 1 3 September 13, 2019 12:00am December 28, 2019 1:56pm administer with spacer, rinse mouth after each use Start: 09-13-2019 End: 12-28-2019 Start: 09-13-2019 End: 12-28-2019 take 1 puff(s) by mouth twice daily Budesonide-Formoterol (Symbicort) 160-4.5 mcg/actuation HFA aerosol inhaler Discontinued 2 PUFF INHALATION TWICE A DAY 1 September 13, 2019 12:00am December 28, 2019 1:56pm administer with spacer, rinse mouth after each use Wptmgvhqna-Jzvviqrh-Lbdnznwj ol (9 sources) Corticosteroid, beta2-Adrenergic Agonist Start: 12-21-2023 End: 04-14-2024 Uorfniagcy-Oetlkdvx-Ncwetszd ol (Breztri Aerosphere) 160-9-4.8 mcg/actuation HFA aerosol inhaler Discontinued 2 NMA INHALATION TWICE A DAY 10.7 3 December 21, 2023 1:00am April 14, 2024 10:15am Start: 12-21-2023 End: 04-14-2024 Start: 12-21-2023 End: 04-14-2024 Qywdivjusp-Zmlsgewd-Jovbiuni ol (Breztri Aerosphere) 160-9-4.8 mcg/actuation HFA aerosol inhaler Discontinued 2 NMA INHALATION TWICE A DAY 10.7 December 21, 2023 1:00am April 14, 2024 10:15am Start: 12-21-2023 Budesonide-Gly copyr-Formoterol (Breztri Aerosphere) 160-9-4.8 mcg/actuation HFA aerosol inhaler Active 2 INH INHALATION TWICE A DAY 10.7 December 21, 2023 1:00am 12 hr buPROPion hydrochloride 200 mg extended release oral tablet (20 sources) Aminoketone Start: 12-27-2021 End: 10-31-2024 take 1 tablet by mouth once daily Bupropion Hcl 200 mg tablet sustained-release 12 hr Discontinued 200 mg PO DAILY 90 3 September 19, 2024 3:25pm October 31, 2024 8:02pm Comment on above: Take 1 tablet by maddi th once daily. cetirizine hydrochloride 10 mg oral tablet (20 sources) Histamine-1 Receptor Antagonist Start: 10-05-2024 End: 03-08-2025 take 1 tablet by mouth once daily as needed Cetirizine (Zyrtec) 10 mg tablet Discontinued 10 mg PO daily as needed for allergy symptoms October 05, 2024 1:00am March 08, 2025 11:16am Start: 02-14-2020 End: 05-25-2023 Cetirizine 10 mg capsule Dis continued 10 mg PO NEEDED as needed for ALLERGIES March 19, 2023 1:10pm May 25, 2023 1:22pm Start: 02-14-2020 End: 05-25-2023 Comment on above: Take 10 mg by mouth. clotrimazole 10 mg oral lozenge (8 sources) Azole Antifungal Start: 04-14-20 End: 03-02-20 Clotrimazole 10 mg janak Discontinued 10 mg MUCOUS MEM THREE TIMES A DAY 90 April 14, 2024 12:00am March 02, 2025 8:07pm cyclobenzaprine hydrochloride 10 mg oral tablet (11 sources) Muscle Relaxant Start: 05-19-20 End: 05-24-20 take 1 tablet by mouth three times daily as needed for muscle spasms Cyclobenzaprine 10 mg tablet Discontinued 10 mg PO THREE TIMES A DAY as needed for muscle spasm 20 5 0 May 19, 2025 12:00am May 23, 2025 12:00am May 24, 2025 12:06am Start: 08-08-2024 End: 03-02-2025 take 0.5-1 tablets by mouth three times daily as needed for muscle spasms Cyclobenzaprine 10 mg tablet Discontinued 10 mg PO THREE TIMES A DAY as needed for muscle spasm 20 August 08, 2024 12:00am March 02, 2025 8:07pm Take 1/2-1 tab up to 3 times per day for muscle spasm back. Do not drive or operate equipment or dangerous machinery while using this medication. dapagliflozin 10 mg oral tablet (20 sources) Sodium-Glucose Cotransporter 2 Inhibitor Start: 06-23-2023 End: 10-22-2023 take 1 tablet by mouth once daily Dapagliflozin Propanediol 10 mg tablet Discontinued 10 mg PO DAILY 90 July 10, 2023 1:42pm October 22, 2023 3:15pm Start: 06-12-2023 End: 06-23-2023 take 1 tablet by mouth once daily Dapagliflozin Propanediol (Farxiga) 5 mg tablet Discontinued 5 mg PO DAILY 90 June 12, 2023 12:00am June 23, 2023 7:08pm 12 hr dextromethorphan hydrobromide 60 mg / guaiFENesin 1200 mg extended release oral tablet (20 sources) Uncompetitive Q-lbbpws-O-aspartate Receptor Antagonist, Sigma-1 Agonist Start: 02-14-2020 End: 05-29-2022 Dextromethorphan-Guaifenesin 60-1,200 mg tablet extended release 12 hr Discontinued 1 {tbl} PO Q12H 60 February 14, 2020 12:00am May 29, 2022 3:11pm Start: 02-14-2020 End: 05-29-2022 Start: 02-14-2020 End: 05-29-2022 take 1 tablet by mouth every twelve hours Dextromethorphan-Guaifenesin Discontinued 1 TABLET PO Q12H 60 February 14, 2020 12:00am May 29, 2022 3:11pm 24 hr dilTIAZem hydrochloride 120 mg extended release oral capsule (20 sources) Calcium Channel [place] Start: 02-12-2023 End: 03-02-2025 take 1 capsule by mouth once daily Diltiazem Hcl 120 mg capsule,extended release 24hr Discontinued 120 mg PO DAILY 90 3 September 19, 2024 3:09pm December 10, 2024 1:16pm Please call Tata at [facility] if not available. diphenhydrAMINE hydrochloride 25 mg oral capsule (20 sources) Histamine-1 Receptor Antagonist Start: 01-23-2023 End: 12-15-2024 take 1 capsule by mouth at bedtime as needed for sleep Diphenhydramine Hcl (Benadryl) 25 mg capsule Discontinued 25 mg PO AT BEDTIME as needed for Sleep March 22, 2024 10:16am December 15, 2024 3:03pm Start: 01-23-2023 End: 12-15-2024 doxycycline hyclate 100 mg oral capsule (20 sources) Tetracycline-class Drug Start: 12-10-2024 End: 01-23-2025 take 1 capsule by mouth twice daily Doxycycline Hyclate 100 mg capsule Discontinued 100 mg PO TWICE A DAY 14 7 0 December 10, 2024 1:00am January 23, 2025 2:37pm Start: 12-18-2022 End: 01-23-2023 take 1 tablet by mouth twice daily Doxycycline Hyclate 100 mg tablet Discontinued 100 mg PO TWICE A DAY 20 0 December 18, 2022 1:00am January 23, 2023 12:09pm Start: 02-07-2020 End: 02-24-2020 take 1 tablet by mouth twice daily Doxycycline Hyclate 100 mg tablet Discontinued 100 mg PO TWICE A DAY 20 0 February 07, 2020 12:00am February 24, 2020 9:49am Start: 11-23-2018 End: 12-07-2018 take 1 tablet by mouth twice daily Doxycycline Hyclate 100 mg tablet Discontinued 100 mg PO TWICE A DAY 20 0 November 23, 2018 1:00am December 07, 2018 3:43pm Start: 06-24-2018 End: 09-23-2018 take 1 tablet by mouth twice daily Doxycycline Hyclate 100 mg tablet Discontinued 100 mg PO TWICE A DAY 20 0 June 24, 2018 12:00am September 23, 2018 2:51pm DULoxetine 30 mg delayed release oral capsule (20 sources) Serotonin and Norepinephrine Reuptake Inhibitor Start: 01-25-2020 End: 08-20-2021 take 1 capsule by mouth once daily Duloxetine 30 mg capsule,delayed release(DR/EC) Discontinued 30 mg PO DAILY January 25, 2020 12:00am August 20, 2021 2:10pm ergocalciferol 1.25 mg oral capsule (20 sources) Provitamin D2 Compound Start: 08-05-2021 End: 09-19-2024 Ergocalciferol (Vitamin D2) (Vitamin D2) 1,250 mcg (50,000 unit) capsule Discontinued 1250 ug PO September 21, 2023 4:13pm September 19, 2024 3:26pm Comment on above: Take 1 capsule by mo [facility] one time a week. escitalopram 10 mg oral tablet (20 sources) Serotonin Reuptake Inhibitor Start: 08-20-2021 End: 03-03-2025 take 1 tablet by mouth once daily Escitalopram Oxalate (Lexapro) 10 mg tablet Discontinued 10 mg PO DAILY September 19, 2024 3:25pm March 03, 2025 4:12pm Comment on above: Take 1 tablet by [facility] once daily. famciclovir 500 mg oral tablet (8 sources) Herpes Simplex Virus Nucleoside Analog DNA Polymerase Inhibitor Start: 12-12-2024 End: 12-17-2024 take 1 tablet by mouth every eight hours at mealtime Famciclovir 500 mg tablet Discontinued 500 mg PO Q8H 15 5 0 December 12, 2024 1:00am December 16, 2024 1:00am December 17, 2024 1:16am Take with food on stomach. fluconazole 100 mg oral tablet (17 sources) Azole Antifungal Start: 12-23-2022 End: 01-23-2023 take 1 tablet by mouth once daily Fluconazole 100 mg tablet Discontinued 100 mg PO daily 3 0 December 23, 2022 1:00am January 23, 2023 12:09pm Fluticasone Propion-Salmeterol (20 sources) Corticosteroid, beta2-Adrenergic Agonist Start: 01-04-2020 End: 01-04-2020 Fluticasone Propion-Salmeterol (Wixela Inhub) 500-50 mcg/dose blister with device Discontinued 1 NMA INHALATION TWICE A DAY 60 3 January 04, 2020 1:00am January 04, 2020 11:42am Start: 01-04-2020 End: 01-04-2020 Start: 01-04-2020 End: 01-04-2020 Fluticasone Propion-Salmeter ol (Wixela Inhub) 500-50 mcg/dose blister with device Discontinued 1 NMA INHALATION TWICE A DAY 60 January 04, 2020 1:00am January 04, 2020 11:42am Start: 01-04-2020 End: 01-04-2020 Fluticasone Propion-Salmeter ol (Wixela Inhub) 500-50 mcg/dose blister with device Discontinued 1 INH INHALATION TWICE A DAY 60 January 04, 2020 12:00am January 04, 2020 10:42am Start: 01-04-2020 End: 01-04-2020 Fluticasone Propion-Salmeter ol (Wixela Inhub) 500-50 mcg/dose blister with device Discontinued 1 INH INHALATION TWICE A DAY 60 January 04, 2020 1:00am January 04, 2020 11:42am Start: 09-23-2018 End: 12-07-2018 Fluticasone Propion-Salmeter ol 232-14 mcg/actuation aerosol powdr breath activated Discontinued 1 NMA INHALATION Q12H 1 September 23, 2018 1:00am December 07, 2018 3:48pm administer with spacer Start: 09-23-2018 End: 12-07-2018 Start: 09-23-2018 End: 12-07-2018 take 1 puff(s) by inhalation every twelve hours Fluticasone Propion-Salmeterol Discontinued 1 PUFF INHALATION Q12H September 23, 2018 1:00am December 07, 2018 3:48pm administer with spacer furosemide 20 mg oral tablet (20 sources) Loop Diuretic Start: 04-27-2020 End: 09-24-2022 take 1 tablet by mouth once daily Furosemide 20 mg tablet Discontinued 20 mg PO DAILY August 20, 2021 12:00am September 24, 2022 12:24pm Start: 02-10-2020 End: 04-04-2020 take 1 tablet by mouth once daily Furosemide 20 MG tablet Discontinued 20 mg PO DAILY February 10, 2020 12:00am April 04, 2020 2:16pm Start: 01-25-2020 End: 01-25-2020 take 1 tablet by mouth once daily Furosemide 20 mg tablet Discontinued 20 mg PO DAILY January 25, 2020 12:00am January 25, 2020 3:47pm Comment on above: Take 1 tablet by maddi th once daily. glipiZIDE er 2.5 mg 24 hr extended release oral tablet (20 sources) Sulfonylurea Start : 10-22 End: 06-28 take 1 tablet by mouth once daily at breakfast Glipizide 2.5 mg tablet extended release 24hr Discontinued 2.5 mg PO DAILY March 22, 2024 10:17am June 28, 2024 2:40pm Take once daily with breakfast. guaiFENesin 200 mg oral tablet (7 sources) Start : 12-15 End: 01-23 take 200 mg by mouth every four hours as needed for cough Guaifenesin 100 mg/5 mL liquid Discontinued 200 mg PO Q4H as needed for cough 500 0 December 15, 2024 1:00am January 23, 2025 2:37pm hydroCHLOROthiazide 25 mg oral tablet (20 sources) Thiazide Diuretic Start : 01-15 End: 08-20 take 1 tablet by mouth once daily Hydrochlorothiazide 25 mg tablet Discontinued 25 mg PO DAILY 90 5 January 25, 2020 12:00am August 20, 2021 2:11pm Start: 01-15-2018 End: 01-25-2020 Hydrochlorothiazide 25 MG ta blet Discontinued 12.5 mg PO DAILY January 15, 2018 1:00am January 25, 2020 3:17pm Start: 01-15-2018 End: 01-25-2020 take 12.5 mg by mouth once daily Hydrochlorothiazide Discontinued 12.5 MG PO DAILY January 15, 2018 1:00am January 25, 2020 3:17pm hydrOXYzine hydrochloride 25 mg oral tablet (20 sources) Antihistamine Start: 02-05-2017 End: 01-25-2020 take 1 tablet by mouth three times daily as needed for anxiety Hydroxyzine Hcl 25 MG tablet Discontinued 25 mg PO 3 TIMES DAILY NEEDED as needed for Anxiety February 05, 2017 12:00am January 25, 2020 3:17pm icosapent ethyl 1000 mg oral capsule (20 sources) Start: 01-23-2023 End: 10-05-2024 Icosapent Ethyl (Vascepa) 1 gram capsule Discontinued 2 g PO TWICE A DAY 120 May 28, 2023 12:27pm October 05, 2024 12:01pm Lidocaine (7 sources) Antiarrhythmic, Amide Local Anesthetic Start: 12-15-2024 End: 03-02-2025 Lidocaine Hcl (Lidocaine Viscous) 2 % solution Discontinued 1 NMA MUCOUS MEM THREE TIMES A DAY as needed for pain 300 0 December 15, 2024 1:00am March 02, 2025 8:07pm Take 10 mL every 8 hours as needed for mouth pain, swish in mouth and then swallow. Start: 12-15-2024 End: 03-02-2025 Lidocaine Hcl (Lidocaine Vis cous) 2 % solution Discontinued 1 NMA MUCOUS MEM THREE TIMES A DAY as needed for pain 300 December 15, 2024 1:00am March 02, 2025 8:07pm Take 10 mL every 8 hours as needed for mouth pain, swish in mouth and then swallow. Start: 12-15-2024 Lidocaine Hcl (Lidocaine Viscous) 2 % solution Active 1 NMA MUCOUS MEM THREE TIMES A DAY as needed for pain 300 December 15, 2024 1:00am Take 10 mL every 8 hours as needed for mouth pain, swish in mouth and then swallow. LORazepam 0.5 mg oral tablet (16 sources) Benzodiazepine Start: 03-25-2023 End: 05-21-2023 take 0.25 mg by mouth once daily as needed for anxiety Lorazepam (Ativan) 0.5 mg tablet Discontinued 0.25 mg PO DAILY as needed for anxiety 5 0 March 25, 2023 12:00am May 21, 2023 1:25pm losartan potassium 50 mg oral tablet (20 sources) Angiotensin 2 Receptor [place] Start: 08-26-2021 End: 08-26-2022 take 1 tablet by mouth once daily losartan (COZAAR) 100 mg tablet Take 1 tablet by mouth once daily. 30 tablet 11 08/26/2021 Active Start: 08-20-2021 End: 09-19-2024 take 1 tablet by mouth twice daily Losartan 50 mg tablet Discontinued 50 mg PO TWICE A DAY 180 July 10, 2023 1:42pm September 19, 2024 3:26pm Start: 01-25-2020 End: 01-25-2020 take 1 tablet by mouth once daily Losartan 50 mg tablet Discontinued 50 mg PO DAILY January 25, 2020 12:00am January 25, 2020 3:22pm Start: 01-25-2020 End: 01-25-2020 Start: 09-23-2018 End: 01-25-2020 take 1 tablet by mouth once daily Losartan 25 mg tablet Discontinued 25 mg PO DAILY September 23, 2018 1:00am January 25, 2020 3:14pm Comment on above: Take 1 tablet by maddi th once daily. medical marijuana card (20 sources) Start: 05-29-2022 End: 12-15-2024 medical marijuana card Discontinued 1 NMA PO NEEDED as needed for Pain May 29, 2022 12:00am December 15, 2024 3:03pm Start: 05-29-2022 medical mariju florencia card Active 1 EACH PO NEEDED May 29, 2022 12:00am Start: 05-29-2022 medical mariju florencia card Active 1 EACH PO NEEDED May 28, 2022 11:00pm Start: 05-29-2022 medical mariju florencia card Active PO May 28, 2022 11:00pm Start: 05-29-2022 medical mariju florencia card Active PO May 29, 2022 12:00am meloxicam 15 mg oral tablet (20 sources) Nonsteroidal Anti-inflammatory Drug Start: 06-30-2022 End: 09-24-2022 take 1 tablet by mouth once daily Meloxicam (Mobic) 15 mg tablet Discontinued 15 mg PO DAILY 30 June 30, 2022 12:00am September 24, 2022 12:24pm Do not take in conjunction with other NSAIDs including ibuprofen. Tylenol is okay. metFORMIN hydrochloride 1000 mg oral tablet (20 sources) Biguanide Start: 06-23-2023 End: 06-28-2024 take 1 tablet by mouth twice daily Metformin 1,000 mg tablet Discontinued 1000 mg PO TWICE A DAY 180 July 10, 2023 1:42pm June 28, 2024 2:40pm Start: 05-28-2023 End: 06-23-2023 take 1 tablet by mouth twice daily Metformin 500 mg tablet Discontinued 500 mg PO TWICE A DAY 60 3 May 28, 2023 12:00am June 23, 2023 7:07pm Start: 08-20-2021 End: 07-31-2022 take 1 tablet by mouth once daily Metformin 500 mg tablet Discontinued 500 mg PO DAILY August 20, 2021 12:00am July 31, 2022 11:04am Start: 08-20-2021 End: 07-31-2022 Start: 08-06-2021 take 1 tablet by maddi th once daily at breakfast metFORMIN ER (GLUCOPHAGE XR) 500 mg 24 hr tablet Indications: Type 2 diabetes mellitus without complication, without long-term current use of insulin (HCC) Take 1 tablet by mouth daily with breakfast. 30 tablet 11 08/06/2021 Active Comment on above: Take 1 tablet by maddi th daily with breakfast. 24 hr metoprolol succinate 50 mg extended release oral tablet (20 sources) beta-Adrenergic [place] Start: 0 End: take 2 tablets by mouth once daily Metoprolol Succinate 50 mg tablet extended release 24 hr Discontinued 25 mg PO DAILY January 25, 2020 12:00am January 25, 2020 3:22pm Start: 01-25-2020 End: 01-25-2020 take 25 mg by mouth once daily Metoprolol Succinate Di scontinued 25 MG PO DAILY January 25, 2020 12:00am January 25, 2020 3:22pm metroNIDAZOLE 0.0075 mg/mg topical gel (8 sources) Nitroimidazole Antimicrobial Start: 12-10-2024 End: 03-02-2025 Metronidazole 0.75 % gel Discontinued TOPICAL December 10, 2024 1:00am March 02, 2025 8:08pm Start: 12-10-2024 End: 03-02-2025 24 hr mirabegron 50 mg extended release oral tablet (20 sources) beta3-Adrenergic Agonist Start: 03-19-2023 End: 05-21-2023 take 1 tablet by mouth once daily Mirabegron (Myrbetriq) 50 mg Tablet Extended Release 24 Hr Discontinued 50 mg PO DAILY March 19, 2023 12:00am May 21, 2023 1:05pm Start: 03-19-2023 End: 07-01-2023 take 1 tablet by mouth once daily Mirabegron (Myrbetriq) 50 mg tablet extended release 24 hr Discontinued 200 mg PO DAILY May 21, 2023 1:04pm July 01, 2023 3:06pm montelukast 10 mg oral tablet (20 sources) Leukotriene Receptor Antagonist Start: 09-17-2021 End: 09-24-2022 take 1 tablet by mouth once daily in the evening Montelukast 10 mg tablet Discontinued 10 mg PO EVERY EVENING 3 April 15, 2022 3:18pm September 24, 2022 12:24pm Chronic sinusitis Chronic sinusitis, unspecified Start: 02-14-2020 End: 04-30-2020 take 1 tablet by mouth once daily in the evening Montelukast 10 mg tablet Discontinued 10 mg PO EVERY EVENING 30 3 February 14, 2020 12:00am April 30, 2020 10:52am Comment on above: Take 10 mg by mouth daily at bedtime. morphine sulfate 15 mg oral tablet (20 sources) Opioid Agonist Start: 03-02-2025 End: 03-15-2025 take 1 tablet by mouth twice daily as needed for pain Morphine 15 mg tablet Discontinued 15 mg PO TWICE A DAY as needed for pain 10 5 0 March 06, 2025 March 15, 2025 6:56am Fracture of right elbow Start: 02-05-2017 End: 01-25-2020 take 1 tablet by mouth twice daily as needed for pain Morphine 15 MG tablet Discontinued 15 mg PO TWICE A DAY as needed for Pain February 05, 2017 12:00am January 25, 2020 3:17pm Nirmatrelvir-Ritonavir (17 sources) Start: 01-04-2023 End: 01-23-2023 Nirmatrelvir-Ritonavir (Paxl ovid (Eua)) 300 mg (150 mg x 2)-100 mg tablets,dose pack Discontinued 0 PO .COMPLEX 30 0 January 04, 2023 1:00am January 23, 2023 12:09pm take TWO 150 mg tablets of nirmatrelvir with ONE 100 mg tablet of ritonavir twice daily for 5 days PO Start: 01-04-2023 End: 01-23-2023 Start: 01-04-2023 End: 01-23-2023 Nirmatrelvir-Ritonavir (Paxl ovid (Eua)) 300 mg (150 mg x 2)-100 mg tablets,dose pack Discontinued 0 PO .COMPLEX January 04, 2023 12:00am January 23, 2023 11:09am take TWO 150 mg tablets of nirmatrelvir with ONE 100 mg tablet of ritonavir twice daily for 5 days PO Start: 01-04-2023 End: 01-23-2023 Nirmatrelvir-Ritonavir (Paxl ovid (Eua)) 300 mg (150 mg x 2)-100 mg tablets,dose pack Discontinued 0 PO .COMPLEX January 04, 2023 1:00am January 23, 2023 12:09pm take TWO 150 mg tablets of nirmatrelvir with ONE 100 mg tablet of ritonavir twice daily for 5 days PO Nirmatrelvir-Ritonavir (Paxlovid) 300 mg (150 mg x 2)-100 mg tablets,dose pack (8 sources) Start: 12-08-2023 End: 03-22-2024 Nirmatrelvir-Ritonavir (Paxlovid) 300 mg (150 mg x 2)-100 mg tablets,dose pack Discontinued 0 PO .COMPLEX 30 December 08, 2023 1:00am March 22, 2024 10:18am take TWO 150 mg tablets of nirmatrelvir with ONE 100 mg tablet of ritonavir twice daily for 5 days PO Start: 12-08-2023 End: 03-22-2024 Nirmatrelvir-Ritonavir (Paxl ovid) 300 mg (150 mg x 2)-100 mg tablets,dose pack Discontinued 0 PO .COMPLEX December 08, 2023 1:00am March 22, 2024 10:18am take TWO 150 mg tablets of nirmatrelvir with ONE 100 mg tablet of ritonavir twice daily for 5 days PO nitrofurantoin, macrocrystals 25 mg / nitrofurantoin, monohydrate 75 mg oral capsule (20 sources) Nitrofuran Antibacterial Start: 03-26-2023 End: 05-21-2023 take 1 capsule by mouth twice daily at mealtime Nitrofurantoin Monohyd/M-Cryst (Macrobid) 100 mg capsule Discontinued 100 mg PO TWICE A DAY 6 March 26, 2023 12:00am May 21, 2023 1:25pm must administer with a meal/food Start: 10-23-2022 End: 12-23-2022 take 1 capsule by mouth twice daily at mealtime Nitrofurantoin Monohyd/M-Cryst (Macrobid) 100 mg capsule Discontinued 100 mg PO TWICE A DAY 6 October 23, 2022 1:00am December 23, 2022 12:07pm must administer with a meal/food nystatin [id number] unt/ml oral suspension (20 sources) Polyene Antifungal Start: 10-16-2021 End: 09-24-2022 Nystatin 100,000 unit/mL suspension Discontinued 5 mL MUCOUS MEM THREE TIMES A DAY 250 October 16, 2021 1:00am September 24, 2022 12:25pm swish and swallow 5 cc three times per day for 10 days Start: 10-16-2021 End: 09-24-2022 Start: 10-16-2021 End: 09-24-2022 Nystatin Discontinued 5 ML M UCOUS MEM THREE TIMES A DAY October 16, 2021 1:00am September 24, 2022 12:25pm swish and swallow 5 cc three times per day for 10 days Tiotropium-Olodaterol (8 sources) Anticholinergic, beta2-Adrenergic Agonist Start: 04-14-2024 End: 03-02-2025 Tiotropium-Olodaterol (Stiolto Respimat) 2.5-2.5 mcg/actuation mist Discontinued 2 NMA INHALATION DAILY 4 April 14, 2024 12:00am March 02, 2025 8:09pm Start: 04-14-2024 End: 03-02-2025 Tiotropium-Olodaterol (Stiol to Respimat) 2.5-2.5 mcg/actuation mist Discontinued 2 NMA INHALATION DAILY April 14, 2024 12:00am March 02, 2025 8:09pm Start: 04-14-2024 End: 03-02-2025 Start: 04-14-2024 Tiotropium-Olo daterol (Stiolto Respimat) 2.5-2.5 mcg/actuation mist Active 2 NMA INHALATION DAILY April 14, 2024 12:00am omeprazole 20 mg delayed release oral tablet (20 sources) Proton Pump Inhibitor Start: 03-19-2023 End: 03-22-2024 take 1 tablet by mouth once daily Omeprazole 20 mg tablet,delayed release (DR/EC) Discontinued 20 mg PO DAILY 60 1 May 25, 2023 2:12pm March 22, 2024 10:19am Start: 07-29-2021 End: 09-24-2022 take 1 capsule by mouth once daily Omeprazole 20 mg capsule,delayed release(DR/EC) Discontinued 20 mg PO DAILY August 20, 2021 12:00am September 24, 2022 12:25pm Comment on above: Take 1 capsule by mo [facility] daily before breakfast. 1/2 hr before meal. ondansetron 4 mg disintegrating oral tablet (20 sources) Serotonin-3 Receptor Antagonist Start: 11-03-20 End: 01-24-20 take 1 tablet by mouth every eight hours as needed for nausea and vomiting Ondansetron 4 mg tablet,disintegratin g Discontinued 4 mg PO Q8H as needed for nausea and vomiting 10 January 06, 2025 12:42pm January 23, 2025 3:27pm Watch for signs of sedation. Do not drive or operate equipment while using this medication. Start: 02-10-2020 End: 08-20-2021 take 1 tablet by mouth every eight hours as needed for nausea Ondansetron Hcl 4 MG tablet Discontinued 4 mg PO EVERY 8 HOURS NEEDED as needed for Nausea February 10, 2020 12:00am August 20, 2021 2:12pm pantoprazole 40 mg delayed release oral tablet (20 sources) Proton Pump Inhibitor Start: 02-05-2017 End: 01-25-2020 take 1 tablet by mouth once daily Pantoprazole 40 MG tablet Discontinued 40 mg PO DAILY February 05, 2017 12:00am January 25, 2020 3:17pm phentermine hydrochloride 37.5 mg oral capsule (20 sources) Sympathomimetic Amine Anorectic Start: 04-04-2020 End: 08-20-2021 take 1 capsule by mouth once daily 30 minutes after breakfast Phentermine (Adipex-P) 37.5 mg capsule Discontinued 37.5 mg PO DAILY April 04, 2020 12:00am August 20, 2021 2:12pm must administer 30 minutes before or 1-2 hours after breakfast pravastatin sodium 20 mg oral tablet (20 sources) HMG-CoA Reductase Inhibitor Start: 01-25-2020 End: 08-20-2021 take 1 tablet by mouth once daily Pravastatin 20 mg tablet Discontinued 20 mg PO DAILY 90 January 25, 2020 12:00am August 20, 2021 2:12pm predniSONE 10 mg oral tablet (20 sources) Start: 12-15-2024 End: 03-02-2025 Prednisone 10 mg tablet Discontinued 10 mg PO daily 21 January 20, 2025 1:00am March 02, 2025 8:09pm Take 4 tabs (40 mg) daily for 3 days then 2 tabs (20 mg) daily for 3 days then 1 tab (10 mg) daily for 3 days then stop. Start: 12-10-2024 End: 12-15-2024 take 1 tablet by mouth once daily Prednisone 50 mg tablet Discontinued 50 mg PO DAILY 5 5 December 10, 2024 1:00am December 15, 2024 3:05pm Start: 08-07-2024 End: 10-05-2024 take 2 tablets by mouth once daily Prednisone 20 mg tablet Discontinued 40 mg PO DAILY 14 7 August 07, 2024 12:00am October 05, 2024 12:01pm Start: 12-08-2023 End: 12-21-2023 Prednisone 10 mg tablet Discontinued 10 mg PO daily 30 December 08, 2023 1:00am December 21, 2023 2:23pm take 4 tabs for three days, then 3 tabs for three days, then 2 tabs for three days, then 1 tab for 3 days Start: 01-04-2023 End: 01-23-2023 take 4 tablets by mouth once daily, then take 3 tablets by mouth once daily, then take 2 tablets by mouth once daily, then take 1 tablet by mouth once daily Prednisone 10 mg tablet Discontinued 10 mg PO DAILY 30 January 04, 2023 1:00am January 23, 2023 12:10pm Obstructive chronic bronchitis with exacerbation Chronic obstructive pulmonary disease with (acute) exacerbation Take 4 tabs PO daily for 3 days, then 3 tabs daily for 3 days, then 2 tabs daily for 3 days, then 1 tab daily for 3 days Start: 04-03-2022 End: 04-12-2022 predniSONE (DELTASONE) 10 mg tablet Take 4 tabs daily for 3 days, then 2 tabs daily for 3 days, then 1 tab daily for 3 days with food. 21 tablet 0 04/03/2022 04/12/2022 Active Start: 03-19-2022 End: 03-24-2022 take 1 tablet by mouth once daily at mealtime predniSONE (DELTASONE) 20 mg tablet Indications: Bronchitis Take 1 tablet by mouth once daily for 5 days. Take daily with food. 5 tablet 0 03/19/2022 03/24/2022 Active Start: 02-07-2020 End: 02-24-2020 Prednisone 10 mg tablet Discontinued 10 mg PO daily 30 0 February 07, 2020 12:00am February 24, 2020 9:49am take 4 tabs for three days, then 3 tabs for three days, then 2 tabs for three days, then 1 tab for 3 days Start: 01-06-2020 End: 02-07-2020 take 3 tablets by mouth once daily at mealtime Prednisone 20 mg tablet Discontinued 60 mg PO daily 15 January 06, 2020 1:00am February 07, 2020 4:09pm administer with food or milk Start: 01-06-2020 End: 02-07-2020 Start: 01-06-2020 End: 02-07-2020 take 60 mg by mouth once daily at mealtime Prednisone Discontinued 60 MG PO daily January 06, 2020 1:00am February 07, 2020 4:09pm administer with food or milk Start: 11-23-2018 End: 12-07-2018 Prednisone 10 mg tablet Discontinued 10 mg PO daily 30 0 November 23, 2018 1:00am December 07, 2018 3:43pm take 4 tabs for three days, then 3 tabs for three days, then 2 tabs for three days, then 1 tab for 3 days Comment on above: Take 1 tablet by maddi th once daily for 5 days. Take daily with food. Take 4 tabs daily fo r 3 days, then 2 tabs daily for 3 days, then 1 tab daily for 3 days with food. pregabalin 100 mg oral capsule (20 sources) Start: 01-16-20 End: 01-25-20 take 1 capsule by mouth three times daily Pregabalin 100 MG capsule Discontinued 100 mg PO THREE TIMES A DAY January 15, 2018 1:00am January 25, 2020 3:18pm promethazine hydrochloride 25 mg oral tablet (20 sources) Phenothiazine Start: 02-06-20 End: 01-25-20 take 1 tablet by mouth every six hours as needed for nausea Promethazine 25 MG tablet Discontinued 25 mg PO EVERY 6 HOURS NEEDED as needed for Nausea February 05, 2017 12:00am January 25, 2020 3:18pm QUEtiapine 50 mg oral tablet (20 sources) Atypical Antipsychotic Start: 11-20-19 End: 01-24-20 take 1 tablet by mouth at bedtime Quetiapine (Seroquel) 50 mg tablet Discontinued 50 mg PO AT BEDTIME July 31, 2022 11:58am January 23, 2023 12:35pm Comment on above: Take 1 tablet by maddi th daily at bedtime. raNITIdine 150 mg oral tablet (20 sources) Histamine-2 Receptor Antagonist Start: 02-10-20 End: 08-20-20 take 1 tablet by mouth once daily Ranitidine Hcl 150 MG tablet Discontinued 150 mg PO DAILY February 10, 2020 12:00am August 20, 2021 2:12pm Semaglutide (16 sources) Start: 06-28-20 End: 07-01-20 Semaglutide (Ozempic) 0.25 mg or 0.5 mg (2 mg/3 mL) pen injector Discontinued 0.5 mg SC EVERY WEEK 3 June 28, 2024 2:45pm July 01, 2024 2:05pm Start: 06-28-2024 End: 07-01-2024 Start: 06-28-2024 End: 07-01-2024 Semaglutide (Ozempic) 0.25 m g or 0.5 mg (2 mg/3 mL) pen injector Discontinued 0.5 mg SC EVERY WEEK 3 June 28, 2024 2:45pm July 01, 2024 2:05pm Start: 05-13-2024 End: 06-28-2024 Semaglutide (Ozempic) 0.25 m g or 0.5 mg (2 mg/3 mL) pen injector Discontinued 0.5 mg SC EVERY WEEK 3 May 13, 2024 12:00am June 28, 2024 2:46pm Start: 05-13-2024 End: 06-28-2024 Start: 05-13-2024 End: 06-28-2024 Semaglutide (Ozempic) 0.25 m g or 0.5 mg (2 mg/3 mL) pen injector Discontinued 0.5 mg SC EVERY WEEK 3 May 13, 2024 12:00am June 28, 2024 2:46pm Semaglutide (8 sources) Start: 07-01-2024 End: 08-08-2024 Semaglutide (Ozempic) 1 mg/d ose (4 mg/3 mL) pen injector Discontinued 1 mg SC EVERY WEEK 3 July 01, 2024 12:00am August 08, 2024 10:38am Start: 07-01-2024 End: 08-08-2024 Start: 07-01-2024 End: 08-08-2024 Semaglutide (Ozempic) 1 mg/d ose (4 mg/3 mL) pen injector Discontinued 1 mg SC EVERY WEEK 3 July 01, 2024 12:00am August 08, 2024 10:38am Tiotropium Gap (20 sources) Anticholinergic Start: 04-04-2020 End: 08-20-2021 take 2.5 ug by inhalation at bedtime Tiotropium Gap (Spiriva Respimat) 2.5 mcg/actuation mist Discontinued 2 NMA INHALATION AT BEDTIME 4 April 04, 2020 12:00am August 20, 2021 2:12pm Start: 04-04-2020 End: 08-20-2021 Start: 04-04-2020 End: 08-20-2021 take 2.5 ug by inhalation at bedtime Tiotropium Gap (Spiriva Respimat) 2.5 mcg/actuation mist Discontinued 2 NMA INHALATION AT BEDTIME April 04, 2020 12:00am August 20, 2021 2:12pm Start: 04-04-2020 End: 08-20-2021 take 1 puff(s) by inhalation at bedtime Tiotropium Gap (Spiriva Respimat) 2.5 mcg/actuation mist Discontinued 2 PUFF INHALATION AT BEDTIME April 03, 2020 11:00pm August 20, 2021 1:12pm Start: 04-04-2020 End: 08-20-2021 take 1 puff(s) by inhalation at bedtime Tiotropium Gap (Spiriva Respimat) 2.5 mcg/actuation mist Discontinued 2 PUFF INHALATION AT BEDTIME April 04, 2020 12:00am August 20, 2021 2:12pm Tirzepatide (Mounjaro) 2.5 mg/0.5 mL pen injector (15 sources) Start: 04-14-2024 End: 05-13-2024 Tirzepatide (Mounjaro) 2.5 mg/0.5 mL pen injector Discontinued 2.5 mg SC EVERY WEEK 2 10 02April 14, 2024 12:15pm May 13, 2024 2:26pm Start: 04-14-2024 End: 05-13-2024 Tirzepatide (Mounjaro) 2.5 m g/0.5 mL pen injector Discontinued 2.5 mg SC EVERY WEEK 2 April 14, 2024 12:15pm May 13, 2024 2:26pm Start: 03-22-2024 End: 04-14-2024 Tirzepatide (Mounjaro) 2.5 m g/0.5 mL pen injector Discontinued 2.5 mg SC EVERY WEEK March 22, 2024 12:00am April 18, 2024 12:00am April 14, 2024 12:15pm Start: 03-22-2024 End: 04-14-2024 Tirzepatide (Mounjaro) 2.5 m g/0.5 mL pen injector Discontinued 2.5 mg SC EVERY WEEK 2 March 22, 2024 12:00am April 18, 2024 12:00am April 14, 2024 12:15pm Start: 03-22-2024 Tirzepatide (M ounjaro) 2.5 mg/0.5 mL pen injector Active 2.5 MG SC EVERY WEEK 2 March 22, 2024 12:00am traMADol hydrochloride 50 mg oral tablet (20 sources) Opioid Agonist Start: 03-26-2023 End: 05-21-2023 take 1 tablet by mouth every eight hours as needed for pain Tramadol 50 mg tablet Discontinued 50 mg PO Q8H as needed for pain 10 3 March 26, 2023 12:00am May 21, 2023 1:25pm Stress incontinence of urine Stress incontinence (female) (male) Start: 10-23-2022 End: 12-23-2022 take 1 tablet by mouth twice daily as needed for pain Tramadol 50 mg tablet Discontinued 50 mg PO TWICE A DAY as needed for pain 4 0 October 23, 2022 1:00am December 23, 2022 12:07pm Urethral stenosis Start: 10-23-2022 End: 12-23-2022 valACYclovir 1000 mg oral tablet (20 sources) Herpesvirus Nucleoside Analog DNA Polymerase Inhibitor, Herpes Simplex Virus Nucleoside Analog DNA Polymerase Inhibitor, Herpes Zoster Virus Nucleoside Analog DNA Polymerase Inhibitor Start: 02-02-2014 End: 08-17-2014 take 1 tablet by mouth once daily Valacyclovir 1,000 MG tablet Discontinued 1000 mg PO DAILY February 02, 2014 12:00am August 17, 2014 1:22pm varenicline 1 mg oral tablet (20 sources) Partial Cholinergic Nicotinic Agonist Start: 05-14-2020 End: 08-20-2021 take 1 tablet by mouth once Varenicline Tartrate (Chantix Starting Month Box) 0.5 mg (11)- 1 mg (42) tablets,dose pack Discontinued 0 PO per package directions 53 0 May 14, 2020 12:00am August 20, 2021 2:12pm PO PER PKG DIR Start: 05-14-2020 End: 08-20-2021 (14 sources) Start: 01-20-2025 End: 01-27-2025 Start: 01-09-2025 End: 03-02-2025 Start: 12-23-2024 End: 01-23-2025 Start: 12-15-2024 End: 01-23-2025 Start: 12-15-2024 End: 03-02-2025 Start: 08-08-2024 End: 01-09-2025 Start: 04-14-2024 End: 05-13-2024 Start: 03-22-2024 End: 04-14-2024 Start: 12-08-2023 End: 03-22-2024 Start: 11-27-2023 End: 10-05-2024 Start: 05-29-2022 End: 12-15-2024 Start: 02-27-2020 Start: 02-10-2020 End: 08-20-2021 Start: 01-25-2020 End: 02-07-2020 Problems Active Problems Problem Classification Problem Date Documented Da te Episodic/Chronic Acute bronchitis (4 sources) Acute bronchitis; Translations: [Acute bronchitis, unspecified] 05-19-2025 Episodic Administrative/social admission (2 sources) Persons encountering health services in other specified circumstances; Translations: [Other reasons for seeking consultation] Episodic Allergic reactions (1 source) Allergic reaction; Translations: [Allergy, unspecified, initial encounter] 05-07-2024 Episodic Anxiety disorders (20 sources) Generalized anxiety disorder; Translations: [Generalized anxiety disorder] Onset: 6 Chronic Asthma (20 sources) Asthma; Translations: [Unspecified asthma, uncomplicated] Onset: 3 Chronic Cardiac dysrhythmias (20 sources) Palpitations; Translations: [Palpitations] Onset: 5 01-23-2023 Episodic Chronic obstructive pulmonary disease and bronchiectasis (20 sources) Bronchiectasis; Translations: [Bronchiectasis, uncomplicated] Onset: 2 01-21-2022 Chronic Chronic obstructive pulmonary disease and bronchiectasis (1 source) Bronchitis; Translations: [Bronchitis, not specified as acute or chronic] Episodic Coronary atherosclerosis and other heart disease (20 sources) Atherosclerotic heart disease of [place] coronary artery without angina pectoris; Translations: [Angina pectoris, unspecified] Onset: 1 09-03-2018 Chronic Diabetes mellitus with complications (2 sources) Type 2 diabetes mellitus with hyperglycemia; Translations: [Type 2 diabetes mellitus with hyperglycemia] Onset: 4 Chronic Diabetes mellitus without complication (20 sources) Type 2 diabetes mellitus without complication; Translations: [Type 2 diabetes mellitus without complications] Onset: 8 08-06-2021 Chronic Diabetes mellitus without complication (20 sources) Prediabetes; Translations: [Prediabetes] 09-03-2022 Episodic Diseases of white blood cells (20 sources) Band neutrophil count above reference range; Translations: [Bandemia] Onset: 8 01-29-2018 Chronic Disorders of lipid metabolism (20 sources) Other hyperlipidemia; Translations: [Hyperlipidemia, unspecified] Onset: 1 11-11-2021 Chronic Esophageal disorders (20 sources) Gastroesophageal reflux disease without esophagitis; Translations: [Gastro-esophageal reflux disease without esophagitis] Onset: 4 Resolved: 9 07-15-2018 Chronic Essential hypertension (20 sources) Essential (primary) hypertension; Translations: [Benign essential hypertension] Onset: 0 Chronic Genitourinary symptoms and ill-defined conditions (20 sources) Mixed urinary incontinence; Translations: [Mixed incontinence] Onset: 8 07-16-2018 Chronic Headache; including migraine (20 sources) Migraine; Translations: [Migraine, unspecified, not intractable, without status migrainosus] Onset: 2 Chronic Headache; including migraine (20 sources) Headache; Translations: [Nonintractable headache] Onset: 6 Resolved: 9 09-12-2019 Episodic Headache; including migraine (1 source) Headache; including migraine; Translations: [Headache, unspecified] Onset: 5 Immunizations and screening for infectious disease (2 sources) Suspected disease caused by 2019-nCoV; Translations: [Suspected COVID-19 virus infection] Episodic Joint disorders and dislocations; trauma-related (7 sources) Dislocation of elbow joint; Translations: [Unspecified dislocation of right ulnohumeral joint, initial encounter] 03-02-2025 Episodic Mood disorders (20 sources) Recurrent major depressive episodes, moderate ; Translations: [Major depressive disorder, recurrent, moderate] Onset: 1 Chronic Nutritional deficiencies (20 sources) Vitamin D deficiency; Translations: [Vitamin D deficiency, unspecified] Onset: 1 03-19-2011 Chronic Occlusion or stenosis of precerebral arteries (20 sources) Arteriosclerosis of carotid artery; Translations: [Occlusion and stenosis of unspecified carotid artery] Onset: 5 02-12-2015 Chronic Osteoporosis (20 sources) Osteoporosis; Translations: [Age-related osteoporosis without current pathological fracture] Onset: 1 03-13-2011 Chronic Other circulatory disease (20 sources) Vascular disorder; Translations: [Unspecified disorder of circulatory system] 05-12-2022 Episodic Other connective tissue disease (20 sources) Hand pain; Translations: [Pain in right hand] 06-30-2022 Episodic Other connective tissue disease (20 sources) History of cervical spine fusion; Translations: [Arthrodesis status] 06-30-2022 Episodic Other connective tissue disease (20 sources) Ganglion cyst; Translations: [Ganglion, unspecified site] 06-23-2022 Episodic Other connective tissue disease (10 sources) Arthrodesis status; Translations: [Arthrodesis status] Episodic Other connective tissue disease (15 sources) Trochanteric bursitis; Translations: [Trochanteric bursitis, left hip] 05-25-2023 Episodic Other connective tissue disease (3 sources) Trochanteric bursitis, left hip; Translations: [Enthesopathy of hip region] 05-25-2023 Episodic Other diseases of bladder and urethra (20 sources) Urethral stenosis; Translations: [Urethral stenosis] Episodic Other endocrine disorders (20 sources) Gastrointestinal hormone level - finding; Translations: [Increased secretion of gastrin] Onset: 3 06-02-2013 Chronic Other gastrointestinal disorders (20 sources) Irritable bowel syndrome; Translations: [Irritable bowel syndrome without diarrhea] 05-12-2022 Chronic Other gastrointestinal disorders (2 sources) Irritable bowel syndrome without diarrhea; Translations: [Irritable bowel syndrome] Chronic Other liver diseases (17 sources) Fatty (change of) liver, not elsewhere classified; Translations: [Nonalcoholic fatty liver disease] Onset: 8 01-25-2025 Chronic Other liver diseases (20 sources) Steatosis of liver; Translations: [Fatty (change of) liver, not elsewhere classified] Onset: 8 07-30-2018 Chronic Other liver diseases (20 sources) Disease of liver; Translations: [Liver disease, unspecified] 05-12-2022 Chronic Other liver diseases (6 sources) Liver disease, unspecified; Translations: [Unspecified disorder of liver] 07-01-2023 Chronic Other lower respiratory disease (20 sources) Cough; Translations: [Cough] Onset: 2 01-21-2022 Episodic Other lower respiratory disease (20 sources) Dyspnea on exertion; Translations: [Dyspnea, unspecified] 10-25-2019 Episodic Other lower respiratory disease (20 sources) Dyspnea; Translations: [Dyspnea, unspecified] 02-11-2020 Episodic Other lower respiratory disease (20 sources) Solitary nodule of lung; Translations: [Solitary pulmonary nodule] 10-25-2019 Episodic Comment on above: 5 mm groundglass [place] triangular-shaped right upper lobe Other lower respiratory disease (5 sources) Other forms of dyspnea; Translations: [Other respiratory abnormalities] 01-23-2023 Episodic Other lower respiratory disease (1 source) Shortness of breath; Translations: [Shortness of breath] Onset: 5 Episodic Other nervous system disorders (20 sources) Central pain syndrome; 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] Onset: 7 04-24-2017 Chronic Other nervous system disorders (2 sources) Chronic pain syndrome; Translations: [Chronic pain syndrome] Chronic Other nervous system disorders (20 sources) Neuropathy; Translations: [Polyneuropathy, unspecified] 05-12-2022 Chronic Other nervous system disorders (20 sources) Lesion of ulnar nerve, right upper limb; Translations: [Cubital tunnel syndrome on right] Chronic Other nervous system disorders (20 sources) Numbness of upper limb; Translations: [Anesthesia of skin] 06-30-2022 Episodic Other nutritional; endocrine; and metabolic disorders (20 sources) Body mass index 30+ - obesity; Translations: [Obesity, unspecified] Onset: 5 05-03-2015 Chronic Other nutritional; endocrine; and metabolic disorders (20 sources) Metabolic syndrome X; Translations: [Metabolic syndrome] Onset: 2 01-21-2022 Chronic Other nutritional; endocrine; and metabolic disorders (14 sources) Obesity; Translations: [Obesity, unspecified] 03-22-2024 Chronic Other nutritional; endocrine; and metabolic disorders (1 source) Obesity, unspecified; Translations: [Obesity, unspecified] 03-22-2024 Chronic Other upper respiratory infections (20 sources) Chronic sinusitis; Translations: [Chronic sinusitis, unspecified] Onset: 2 01-21-2022 Chronic Prolapse of female genital organs (20 sources) Urinary incontinence co-occurrent and due to prolapse of female genital organ; Translations: [Female genital prolapse, unspecified] Onset: 5 Chronic Residual codes; unclassified (20 sources) Obstructive sleep apnea syndrome; Translations: [Obstructive sleep apnea (adult) (pediatric)] Onset: 5 03-03-2015 Chronic Comment on above: Noncompliant Residual codes; unclassified (17 sources) Obstructive sleep apnea (adult) (pediatric); Translations: [Obstructive sleep apnea (adult)(pediatric)] Chronic Residual codes; unclassified (5 sources) Insomnia; Translations: [Insomnia, unspecified] Episodic Residual codes; unclassified (20 sources) Tobacco user; Translations: [Tobacco use] Onset: 2 11-11-2021 Episodic Residual codes; unclassified (1 source) Procedure not done; Translations: [Procedure and treatment not carried out, unspecified reason] 12-10-2024 Episodic Residual codes; unclassified (8 sources) Generalized aches and pains; Translations: [Pain, unspecified] 12-23-2024 Episodic Spondylosis; intervertebral disc disorders; other back problems (20 sources) Degeneration of cervical intervertebral disc; Translations: [Other cervical disc degeneration, unspecified cervical region] Onset: 1 Chronic Substance-related disorders (20 sources) Cigarette smoker ; Translations: [Nicotine dependence, cigarettes, uncomplicated] Onset: 2 Resolved: 4 01-21-2022 Chronic Comment on above: due September 2023 Superficial injury; contusion (14 sources) Contusion of face; Translations: [Contusion of other part of head, initial encounter] 03-02-2025 Episodic Transient cerebral ischemia (10 sources) Transient cerebral ischemia; Translations: [Transient cerebral ischemic attack, unspecified] Onset: 5 10-05-2024 Chronic Comment on above: NO DEFICIT Unclassified (3 sources) Other abnormal and inconclusive findings on diagnostic imaging of breast; Translations: [Patient encounter status] Onset: 7 Episodic Unclassified (1 source) Unknown / UNK(Unknown) Onset: 6 Unclassified (20 sources) SUMMARY Onset: 3 05-26-2013 Unclassified (6 sources) Pain of lumbar spine Unclassified (9 sources) M54.50 - Low back pain, unspecified Unclassified (6 sources) S42.401A - Unspecified fracture of lower end of right humerus, initial encounter for closed fracture Unclassified (3 sources) Fracture of right elbow Unclassified (1 source) Low back pain, unspecified; Translations: [Low back pain, unspecified] Onset: 5 Unclassified (1 source) Cough, unspecified; Translations: [Cough, unspecified] Onset: 5 Unclassified (2 sources) Other intervertebral disc degeneration, lumbar region with discogenic back pain and lower extremity pain; Translations: [Other intervertebral disc degeneration, lumbar region with discogenic back pain and lower extremity pain] Onset: 4 Urinary tract infections (12 sources) Urinary tract infectious disease; Translations: [Urinary tract infection, site not specified] Onset: 5 12-15-2024 Episodic Past or Other Problems Problem Classification Problem Date Documented Date Episodic/Chronic Abdominal hernia (20 sources) Incisional hernia; Translations: [Incisional hernia without obstruction or gangrene] Onset: 11-18-2017 11-18-2017 Episodic Abdominal pain (10 sources) Abdominal pain; Translations: [Unspecified abdominal pain] Onset: 07-28-2018 Resolved: 09-12-2019 09-12-2019 Episodic Adjustment disorders (5 sources) Grief finding; Translations: [Adjustment disorder with depressed mood] Onset: 05-13-2015 Resolved: 09-12-2019 09-12-2019 Chronic Cancer of cervix (20 sources) Atypical squamous cells of undetermined significance on cervical Papanicolaou smear; Translations: [Atypical squamous cells of undetermined significance on cytologic smear of cervix (ASC-US)] Onset: 12-07-2019 12-07-2019 Episodic Coagulation and hemorrhagic disorders (5 sources) Spontaneous ecchymosis; Translations: [Spontaneous ecchymoses] Onset: 12-15-2014 Resolved: 09-12-2019 09-12-2019 Episodic Conditions associated with dizziness or vertigo (20 sources) Dizziness; Translations: [Dizziness and giddiness] Onset: 01-23-2025 01-23-2023 Episodic E Codes: Adverse effects of medical drugs (20 sources) Vaccines adverse reaction; Translations: [Adverse effect of other vaccines and biological substances, initial encounter] Onset: 02-22-2021 02-22-2021 Episodic Fracture of upper limb (20 sources) Elbow fracture - closed; Translations: [Unspecified fracture of lower end of right humerus, initial encounter for closed fracture] Onset: 03-06-2025 03-02-2025 Episodic Gastritis and duodenitis (20 sources) Bile-induced gastritis; Translations: [Other gastritis without bleeding] Onset: 09-23-2018 09-23-2018 Episodic Influenza (11 sources) Influenza due to Influenza A virus; Translations: [Influenza due to other identified influenza virus with other respiratory manifestations] Onset: 12-15-2024 12-18-2024 Episodic Nausea and vomiting (20 sources) Nausea and vomiting; Translations: [Nausea with vomiting, unspecified] Onset: 02-23-2025 01-12-2025 Episodic Nonspecific chest pain (20 sources) Chest pain, unspecified; Translations: [Chest pain] Onset: 10-31-2011 Resolved: 09-04-2014 01-23-2023 Episodic Other aftercare (20 sources) Marijuana user; Translations: [Other intermediate card tender (current) drug therapy] Onset: 07-29-2021 Episodic Other aftercare (5 sources) Long-term current use of opiate analgesic drug; Translations: [prison (current) use of opiate analgesic] Onset: 02-10-2017 Resolved: 10-28-2019 10-28-2019 Episodic Other and ill-defined cerebrovascular disease (20 sources) Cerebral ischemia; Translations: [Cerebral ischemia] Onset: 01-21-2022 Resolved: 06-18-2024 01-21-2022 Chronic Other bone disease and musculoskeletal deformities (20 sources) Osteopenia; Translations: [Other specified disorders of bone density and structure, multiple sites] Onset: 2021 2021 Episodic Other circulatory disease (20 sources) Orthostatic hypotension; Translations: [Orthostatic hypotension] Onset: 02-11-2017 02-11-2017 Episodic Other circulatory disease (20 sources) History of cerebrovascular disease; Translations: [Personal history of transient ischemic attack (TIA), and cerebral infarction without residual deficits] Onset: 02-10-2017 07-15-2018 Episodic Other hematologic conditions (20 sources) Secondary polycythemia; Translations: [Secondary polycythemia] Onset: 02-02-2018 02-02-2018 Episodic Other lower respiratory disease (20 sources) Nodule of lung; Translations: [Solitary pulmonary nodule] Onset: 03-02-2018 03-02-2018 Episodic Other lower respiratory disease (5 sources) Orthopnea; Translations: [Orthopnea] Onset: 07-08-2018 Resolved: 09-12-2019 09-12-2019 Episodic Other nervous system disorders (5 sources) Right trigeminal neuralgia; Translations: [Trigeminal neuralgia] Onset: 05-03-2015 Resolved: 09-12-2019 09-12-2019 Episodic Other nervous system disorders (5 sources) Sense of smell altered; Translations: [Unspecified disturbances of smell and taste] Onset: 06-27-2016 Resolved: 09-12-2019 09-12-2019 Episodic Other non-traumatic joint disorders (1 source) Pain in right elbow; Translations: [Pain in right elbow] Onset: 03-15-2025 Episodic Other upper respiratory infections (15 sources) Upper respiratory infection; Translations: [Acute upper respiratory infection, unspecified] Onset: 02-02-2025 12-23-2024 Episodic Residual codes; unclassified (9 sources) Tobacco use; Translations: [Tobacco use disorder] Onset: 10-05-2024 Episodic Residual codes; unclassified (5 sources) Flushing; Translations: [Flushing] Onset: 06-02-2013 Resolved: 09-03-2018 09-03-2018 Episodic Residual codes; unclassified (2 sources) Pain, unspecified; Translations: [Pain, unspecified] Onset: 02-23-2025 Episodic Spondylosis; intervertebral disc disorders; other back problems (20 sources) Lumbar radiculopathy; Translations: [Radiculopathy, lumbar region] Onset: 12-29-2014 12-29-2014 Episodic Results Test Name Value Interpretation Reference Range Facility Basic Metabolic Profile (BMP )on 09-07-2025 BUN/CRE 8.3 RATIO Low 09-04 [facility] Comment on above: Performed By: #### L 503.7505, L500.4100, L100.0100, L500.3400, L500.2500 ####[facility] [address] [place], [address] Calcium [Mass/Vol] 9.5 mg/dL Normal 7.6-11.0 [facility] Comment on above: Performed By: #### L 503.7505, L500.4100, L100.0100, L500.3400, L500.2500 ####[facility] [address] [place], [address] Chloride [Moles/Vol] 106 mmol/L Normal 98-108 [facility] Comment on above: Performed By: #### L 503.7505, L500.4100, L100.0100, L500.3400, L500.2500 ####[facility] [address] [place], [address] CO2 [Moles/Vol] 25.6 mmol/L Normal 21.0-32.0 [facility] Comment on above: Performed By: #### L 503.7505, L500.4100, L100.0100, L500.3400, L500.2500 ####[facility] [address] [place], [address] Creatinine [Mass/Vol] 0.75 mg/dL Normal 0.70-1.20 [facility] Comment on above: Performed By: #### L 503.7505, L500.4100, L100.0100, L500.3400, L500.2500 ####[facility] [address] [place], [address] GAP 11 Normal 5-15 [facility] Comment on above: Performed By: #### L 503.7505, L500.4100, L100.0100, L500.3400, L500.2500 ####[facility] [address] [place], [address] GFR/1.73 sq M.predicted among non-blacks MDRD (S/P/Bld) [Vol rate/Area] 89 mL/min/{1.73_m2} Normal >60 [facility] Comment on above: Result Comment: mL/m in/1.73m2 CKD-EPI Creatinine Equation (2020) Performed By: #### L 503.7505, L500.4100, L100.0100, L500.3400, L500.2500 ####[facility] [address] [place], [address] Glucose [Mass/Vol] 84 mg/dL Normal 70-99 [facility] Comment on above: Performed By: #### L 503.7505, L500.4100, L100.0100, L500.3400, L500.2500 ####[facility] [address] [place], [address] Potassium [Moles/Vol] 3.6 mmol/L Normal 3.3-5.1 [facility] Comment on above: Performed By: #### L 503.7505, L500.4100, L100.0100, L500.3400, L500.2500 ####[facility] [address] [place], [address] Sodium [Moles/Vol] 142 mmol/L Normal 133-145 [facility] Comment on above: Performed By: #### L 503.7505, L500.4100, L100.0100, L500.3400, L500.2500 ####[facility] [address] [place], [address] Urea nitrogen [Mass/Vol] 6 mg/dL Normal 4-19 [facility] Comment on above: Performed By: #### L 503.7505, L500.4100, L100.0100, L500.3400, L500.2500 ####[facility] [address] [place], [address] CBC W/Diff, Automatedon 10-2 -2024 Absolute Lymph 2.65 X10 3/uL Normal 0.83-4.51 [facility] Comment on above: Performed By: #### L 503.7505, L500.4100, L100.0100, L500.3400, L500.2500 ####[facility] [address] [place], [address] Absolute Neut 5.0 X10 3/uL Normal 2.0-7.7 [facility] Comment on above: Performed By: #### L 503.7505, L500.4100, L100.0100, L500.3400, L500.2500 ####[facility] [address] [place], [address] Basophils/100 WBC (Bld) 0.4 % Normal 0-1 [facility] Comment on above: Performed By: #### L 503.7505, L500.4100, L100.0100, L500.3400, L500.2500 ####[facility] [address] [place], [address] Eosinophils/100 WBC (Bld) 1.8 % Normal 0-5 [facility] Comment on above: Performed By: #### L 503.7505, L500.4100, L100.0100, L500.3400, L500.2500 ####[facility] [address] [place], [address] Erythrocyte distribution width (RBC) [Ratio] 13.6 % Normal 11.6-14.6 [facility] Comment on above: Performed By: #### L 503.7505, L500.4100, L100.0100, L500.3400, L500.2500 ####[facility] [address] [place], [address] Hematocrit (Bld) [Volume fraction] 37.3 % Normal 37-47 [facility] Comment on above: Performed By: #### L 503.7505, L500.4100, L100.0100, L500.3400, L500.2500 ####[facility] [address] [place], [address] Hemoglobin (Bld) [Mass/Vol] 12.4 g/dL Normal 12.0-15.0 [facility] Comment on above: Performed By: #### L 503.7505, L500.4100, L100.0100, L500.3400, L500.2500 ####[facility] [address] [place], [address] IG% 0.500 Normal 0.0-0.9 [facility] Comment on above: Result Comment: IG% - Immature Granulocytes (promyelocytes, myelocytes andmetamyelocytes) > 1% indicates that a LEFT SHIFT is Present. Performed By: #### L 503.7505, L500.4100, L100.0100, L500.3400, L500.2500 ####[facility] [address] [place], [address] Lymphocytes/100 WBC (Bld) 31.3 % Normal 19-41 [facility] Comment on above: Performed By: #### L 503.7505, L500.4100, L100.0100, L500.3400, L500.2500 ####[facility] [address] [place], [address] MCH (RBC) [Entitic mass] 27.9 pg Normal 27.0-32.0 [facility] Comment on above: Performed By: #### L 503.7505, L500.4100, L100.0100, L500.3400, L500.2500 ####[facility] [address] [place], [address] MCHC (RBC) [Mass/Vol] 33.2 g/dL Normal 32-36 [facility] Comment on above: Performed By: #### L 503.7505, L500.4100, L100.0100, L500.3400, L500.2500 ####[facility] [address] [place], [address] MCV (RBC) [Entitic vol] 84.0 fL Normal 81-99 [facility] Comment on above: Performed By: #### L 503.7505, L500.4100, L100.0100, L500.3400, L500.2500 ####[facility] [address] [place], [address] Monocytes/100 WBC (Bld) 7.4 % Normal 0-10 [facility] Comment on above: Performed By: #### L 503.7505, L500.4100, L100.0100, L500.3400, L500.2500 ####[facility] [address] [place], [address] Neutrophils/100 WBC (Bld) 58.6 % Normal 47-70 [facility] Comment on above: Performed By: #### L 503.7505, L500.4100, L100.0100, L500.3400, L500.2500 ####[facility] [address] [place], [address] Nucleated RBC (Bld) [#/Vol] 0 10*3/uL Normal 0-5 [facility] Comment on above: Performed By: #### L 503.7505, L500.4100, L100.0100, L500.3400, L500.2500 ####[facility] [address] [place], [address] Platelet mean volume (Bld) [Entitic vol] 9.4 fL Normal 6.2-12.0 [facility] Comment on above: Performed By: #### L 503.7505, L500.4100, L100.0100, L500.3400, L500.2500 ####[facility] [address] [place], [address] Platelets (Bld) [#/Vol] 430 10*3/uL Normal 150-450 [facility] Comment on above: Performed By: #### L 503.7505, L500.4100, L100.0100, L500.3400, L500.2500 ####[facility] [address] [place], [address] RBC (Bld) [#/Vol] 4.44 10*6/uL Normal 4.2-5.4 [facility] Comment on above: Performed By: #### L 503.7505, L500.4100, L100.0100, L500.3400, L500.2500 ####[facility] [address] [place], [address] RDW SD 42.1 fl Normal 35.1-43.9 [facility] Comment on above: Performed By: #### L 503.7505, L500.4100, L100.0100, L500.3400, L500.2500 ####[facility] [address] [place], [address] WBC (Bld) [#/Vol] 8.5 10*3/uL Normal 4.4-11.0 [facility] Comment on above: Performed By: #### L 503.7505, L500.4100, L100.0100, L500.3400, L500.2500 ####[facility] [address] [place], [address] Cardiology Visit Reporton Cardiology Visit Report Normal [facility] Lipid Profileon 09-07-2025 CHOL:HDL 3.50 Normal [facility] Comment on above: Performed By: #### L 506.1001, L500.4100 ####[facility] [address] [place], [address] Cholesterol [Mass/Vol] 222 mg/dL High <=200 [facility] Comment on above: Result Comment: Chol esterol level, Desirable <200 mg/dLBorderline high cholesterol 200-239 mg/dLHigh cholesterol >=240 mg/dLRecommendations of the NCEP Adult Treatment Panel for thefollowing risk-cutoff thresholds for the [place] Americanpulation. Performed By: #### L 506.1001, L500.4100 ####[facility] [address] [place], [address] Cholesterol in HDL [Mass/Vol] 63 mg/dL Normal [facility] Comment on above: Result Comment: Tabatha onal Cholesterol Education Program (NCEP) guidelines:<40 mg/dL: Low HDL-cholesterol (major risk factor for CHD)>= 60 mg/dL: High HDL-cholesterol (negative risk factor forCHD)HDL-cholesterol is affected by a number of factors, e.g.smoking, exercise, hormones, sex and age. Performed By: #### L 506.1001, L500.4100 ####[facility] [address] [place], [address] Cholesterol in LDL [Mass/Vol] 126 mg/dL Normal [facility] Comment on above: Result Comment: Bord vpqvzu=746-161 mg/dL Higher Lztr=149 mg/dL or greaterSampson Equation 2020 for LDL-C Performed By: #### L 506.1001, L500.4100 ####[facility] [address] [place], [address] Cholesterol in VLDL [Mass/Vol] 38 mg/dL Normal 5-40 [facility] Comment on above: Performed By: #### L 506.1001, L500.4100 ####[facility] [address] [place], [address] Triglyceride [Mass/Vol] 188 mg/dL Normal [facility] Comment on above: Result Comment: The drugs N-Acetylcysteine and Metamizole may falselydepress this assay.Normal range: <150 mg/dLBorderline High: 150-199 mg/dLHigh: 200-499 mg/dLVery High: >500 mg/dL Performed By: #### L 506.1001, L500.4100 ####[facility] [address] [place], [address] CHOL:HDL 3.49 Normal [facility] Comment on above: Performed By: #### L 503.7505, L500.4100, L100.0100, L500.3400, L500.2500 ####[facility] [address] [place], [address] Cholesterol [Mass/Vol] 218 mg/dL High <=200 [facility] Comment on above: Result Comment: Chol esterol level, Desirable <200 mg/dLBorderline high cholesterol 200-239 mg/dLHigh cholesterol >=240 mg/dLRecommendations of the NCEP Adult Treatment Panel for thefollowing risk-cutoff thresholds for the [place] Americanpulation. Performed By: #### L 503.7505, L500.4100, L100.0100, L500.3400, L500.2500 ####[facility] [address] [place], [address] Cholesterol in HDL [Mass/Vol] 63 mg/dL Normal [facility] Comment on above: Result Comment: Tabatha onal Cholesterol Education Program (NCEP) guidelines:<40 mg/dL: Low HDL-cholesterol (major risk factor for CHD)>= 60 mg/dL: High HDL-cholesterol (negative risk factor forCHD)HDL-cholesterol is affected by a number of factors, e.g.smoking, exercise, hormones, sex and age. Performed By: #### L 503.7505, L500.4100, L100.0100, L500.3400, L500.2500 ####[facility] [address] [place], [address] Cholesterol in LDL [Mass/Vol] 123 mg/dL Normal [facility] Comment on above: Result Comment: Bord vdqhlq=077-106 mg/dL Higher Fwzh=452 mg/dL or greaterSampson Equation 2020 for LDL-C Performed By: #### L 503.7505, L500.4100, L100.0100, L500.3400, L500.2500 ####[facility] [address] [place], [address] Cholesterol in VLDL [Mass/Vol] 37 mg/dL Normal 5-40 [facility] Comment on above: Performed By: #### L 503.7505, L500.4100, L100.0100, L500.3400, L500.2500 ####[facility] [address] [place], [address] Triglyceride [Mass/Vol] 186 mg/dL Normal [facility] Comment on above: Result Comment: The drugs N-Acetylcysteine and Metamizole may falselydepress this assay.Normal range: <150 mg/dLBorderline High: 150-199 mg/dLHigh: 200-499 mg/dLVery High: >500 mg/dL Performed By: #### L 503.7505, L500.4100, L100.0100, L500.3400, L500.2500 ####[facility] [address] [place], [address] Liver Profileon 09-07-2025 Albumin [Mass/Vol] 4.0 g/dL Normal 3.4-4.8 [facility] Comment on above: Performed By: #### L 503.7505, L500.4100, L100.0100, L500.3400, L500.2500 ####[facility] [address] [place], [address] ALK PHOS 94 U/L Normal 35-104 [facility] Comment on above: Performed By: #### L 503.7505, L500.4100, L100.0100, L500.3400, L500.2500 ####[facility] [address] [place], [address] ALT [Catalytic activity/Vol] 14 U/L Normal <=34 [facility] Comment on above: Performed By: #### L 503.7505, L500.4100, L100.0100, L500.3400, L500.2500 ####[facility] [address] [place], [address] AST [Catalytic activity/Vol] 22 U/L Normal <=31 [facility] Comment on above: Performed By: #### L 503.7505, L500.4100, L100.0100, L500.3400, L500.2500 ####[facility] [address] [place], [address] Bilirubin [Mass/Vol] 0.27 mg/dL Normal 0.00-1.30 [facility] Comment on above: Performed By: #### L 503.7505, L500.4100, L100.0100, L500.3400, L500.2500 ####[facility] [address] [place], [address] Bilirubin.direct [Mass/Vol] 0.11 mg/dL Normal 0.00-0.30 [facility] Comment on above: Performed By: #### L 503.7505, L500.4100, L100.0100, L500.3400, L500.2500 ####[facility] [address] [place], [address] Globulin (S) [Mass/Vol] 2.8 g/dL Normal 2.2-4.2 [facility] Comment on above: Performed By: #### L 503.7505, L500.4100, L100.0100, L500.3400, L500.2500 ####[facility] [address] [place], [address] T PROT 6.8 g/dL Normal 5.9-8.4 [facility] Comment on above: Performed By: #### L 503.7505, L500.4100, L100.0100, L500.3400, L500.2500 ####[facility] [address] [place], [address] Pro- Brain NATRIURETIC PEPTI Ny 09-07-2025 Natriuretic peptide B (Bld) [Mass/Vol] 123 pg/mL Normal <=900 [facility] Comment on above: Result Comment: Hear t Failure Unlikely: < 300 pg/mLHeart Failure Likely< 50 Years: > 450 pg/mL50-75 Years: > 900 pg/mL>75 Years: > 1800 pg/mL Performed By: #### L 503.7505, L500.4100, L100.0100, L500.3400, L500.2500 ####[facility] [address] [place], [address] Vitamin D,25 Hydroxyon 09-07 Vitamin D 25-OH 54.2 ng/mL Normal 30-100 [facility] Comment on above: Result Comment: Guadalupe min D StatusDeficiency: <20 ng/mL (50nmol/L)Insufficiency: 20-30 ng/mL (50-75 nmol/L)Sufficiency: 30-100 ng/mL (75-250 nmol/L)Toxicity: >100 ng/mL (>250 nmol/L) Performed By: #### L 506.1001, L500.4100 ####[facility] [address] [place], [address] Gastroenterology Visit Repor ton 08-25-2025 Gastroenterology Visit Report Normal [facility] Office Visit Reporton 2024 Office Visit Report Normal [facility] No Panel InformationOrdered By: Bam Marvin on 05-19-2025 POC SARS CoV-2 Antigen Negative [facility] Urgent Care Visit Reporton 0 05-19-2025 Urgent Care Visit Report Normal [facility] Endocrinology Visit Reporton 05-02-2025 Endocrinology Visit Report Normal [facility] Laboratory - Hematology and Cell countsOrdered By: Elvis Sharif on 05-02-2025 HbA1c (Bld) [Mass fraction] 5.9 % 4.2-6.3 [facility] Elbow min 3 Viewson 04-18-20 25 Elbow min 3 Views Normal [facility] Orthopedic Visit Reporton Orthopedic Visit Report Normal [facility] Inital Evaluation (1) - PTon 03-30-2025 Inital Evaluation (1) - PT Normal [facility] Elbow 2 Viewson 03-21-2025 Elbow 2 Views Normal [facility] Orthopedic Visit Reporton Orthopedic Visit Report Normal [facility] Elbow 2 Viewson 03-10-2025 Elbow 2 Views Normal [facility] Orthopedic Visit Reporton Orthopedic Visit Report Normal [facility] Bedside Glucoseon 03-08-2025 FINGERSTICK GLU 105 mg/dL Normal 74-106 [facility] Comment on above: Result Comment: RICK AMBRIZ OF PATIENT CARE PER NURSING PROTOCOL Performed By: #### L 501.080 ####[facility] [address] [place], [address] Discharge Instructionon 02-15 Discharge Instruction Normal [facility] Elbow min 3 Viewson 03-08-20 25 Elbow min 3 Views Normal [facility] Gl[facility] deOrdered By: Gurwinder Urena on 03-08-2025 Glucose [Mass/Vol] 105 mg/dL 74-106 [facility] Comment on above: MANAGEMENT OF PATIEN T CARE PER NURSING PROTOCOL MR/POSTOP.ANEon 03-08-2025 MR/POSTOP.ANE Normal [facility] MR/EGDCPSCL9ie 03-08-2025 MR/POSTOPAN2 Normal [facility] Operative Reporton Operative Report Normal [facility] MR/PAT.ANEon 03-03-2025 MR/PAT.ANE Normal [facility] Orthopedic Visit Reporton Orthopedic Visit Report Normal [facility] Brain/Head without Contrasto n 03-02-2025 Brain/Head without Contrast Normal [facility] Consultation - Orthopedicson 03-02-2025 Consultation - Orthopedics Normal [facility] Elbow 2 Viewson 03-02-2025 Elbow 2 Views Normal [facility] Emergency Department Summary on 03-02-2025 Emergency Department Summary Normal [facility] Extremity Upper without Cont raon 03-02-2025 Extremity Upper without Contra Normal [facility] Knee 1 or 2 Viewson 03-02-20 25 Knee 1 or 2 Views Normal [facility] Sinus/Facial Boneon 03-02-20 25 Sinus/Facial Bone Normal [facility] Spine Cervical without Contr ason 03-02-2025 Spine Cervical without Contras Normal [facility] Laboratory - Chemistry and C hemistry - challengeOrdered By: Dannielle Thomas on 02-23-2025 Bilirubin Ql (U) Negative [facility] Glucose Ql (U) Negative [facility] Ketones Ql (U) Negative [facility] pH (U) 6.0 [pH] [facility] Specific gravity (U) [Rel density] 1.020 [facility] Urobilinogen (U) [Mass/Vol] 0.8056044 mg/dL [facility] Laboratory - Hematology and Cell countsOrdered By: Dannielle Thomas on 02-23-2025 Hemoglobin Ql (U) Negative [facility] Laboratory - Specimen inform ationOrdered By: Dannielle Thomas on 02-23-2025 Clarity (U) Clear [facility] Color (U) YELLOW [facility] Laboratory - UrinalysisOrder ed By: Dannielle Thomas on 02-23-2025 Nitrite Ql (U) Negative [facility] Protein Ql (U) Negative [facility] MR/BMS.IMBon 02-23-2025 MR/BMS.IMB Normal [facility] No Panel InformationOrdered By: Dannielle Thomas on 02-23-2025 Urine Leukocytes Negve [facility] Urine Non-Hemolyzed Blood Negative [facility] YELLOW [facility] Clear [facility] Negative [facility] 1.020 [facility] 6.0 [facility] 0.2 mg/dL [facility] Negve [facility] Orthopedic Visit Reporton Orthopedic Visit Report Normal [facility] CTA Head AND Neck W/ Contras ton 02-16-2025 CTA Head AND Neck W/ Contrast Normal [facility] Endocrinology Visit Reporton 01-31-2025 Endocrinology Visit Report Normal [facility] Laboratory - Hematology and Cell countsOrdered By: Elvis Sharif on 01-31-2025 HbA1c (Bld) [Mass fraction] 5.9 % 4.2-6.3 [facility] No Panel InformationOrdered By: Elvis Sharif on 01-31-2025 5.9 % 4.2-6.3 [facility] FLORENCIA w/ Reflex Mult Confirmon 01-26-2025 ANTI-DNA (DS)AB TNP Normal [facility] Comment on above: Performed By: #### L 501.6710, L100.0100, L3100.5450, L101.9900, L503.6030, L500.4050, L501.5200, L503.0106 ####[facility] [address] [place], [place], [id number] ANTISCLERODERM TNP Normal [facility] Comment on above: Performed By: #### L 501.6710, L100.0100, L3100.5450, L101.9900, L503.6030, L500.4050, L501.5200, L503.0106 ####[facility] [address] [place], [place], [id number] ALP [Catalytic activity/Vol] Ordered By: Dannielle Thomas on 01-23-2025 Serum or plasma alkaline phosphatase measurement 78 U/L 35-104 [facility] ALT [Catalytic activity/Vol] Ordered By: Dannielle Thomas on 01-23-2025 Serum or plasma alanine aminotransferase (ALT) measurement 11 U/L <35 [facility] FLORENCIA serumOrdered By: Dannielle holloway on 01-23-2025 Anti-Nuclear Antibody Screen Negative Negative [facility] Comment on above: Performed at: [place] [id number] Director: Alberto Nguyen PhD, Phone: [phone] FLORENCIA serum Negative Negative [facility] Absolute lymphocyte countOrd ered By: Dannielle Thomas on 01-23-2025 Lymphocytes Auto (Unsp spec) [#/Vol] 3.28 10*3/uL 0.83-4.51 [facility] Absolute neutrophil countOrd ered By: Dannielle Thomas on 01-23-2025 Neutrophils (Bld) [#/Vol] 6.0 10*3/uL 2.0-7.7 [facility] Absolute neutrophil count 6.0 X10^3/uL 2.0-7.7 [facility] Albumin [Mass/Vol]Ordered By : Dannielle Thomas on 01-23-2025 Serum or plasma albumin measurement (mass/volume) 3.9 g/dL 3.4-4.8 [facility] Albumin/Globulin [Mass ratio ]Ordered By: Dannielle Thomas on 01-23-2025 Serum or plasma albumin/globulin mass ratio 1.5 RATIO 0.9-2.4 [facility] Anion gap [Moles/Vol]Ordered By: Dannielle Thomas on 01-23-2025 Anion gap in Serum or Plasma 11 03-30 [facility] Anion gap in Serum or Plasma Ordered By: Dannielle Thomas on 01-23-2025 Anion gap [Moles/Vol] 11 mmol/L 03-30 [facility] Automated lymphocyte count a s percentage of total leukocytesOrdered By: Dannielle Thomas on 01-23-2025 Lymphocytes/100 WBC Auto (Unsp spec) 32.1 % [facility] BUN/creatinine ratioOrdered By: Dannielle Thomas on 01-23-2025 Urea nitrogen/Creatinine [Mass ratio] 10.2 mg/mg 09-04 [facility] BUN/creatinine ratio 10.2 RATIO 09-04 [facility] Basophil percentageOrdered B y: Dannielle Thomas on 01-23-2025 Basophils/100 WBC (Bld) 0.6 % 0-1 [facility] Basophil percentage 0.6 % 0-1 [facility] Bilirubin, totalOrdered By: Dannielle Thomas on 01-23-2025 Bilirubin [Mass/Vol] 0.30 mg/dL 0.00-1.30 [facility] Bilirubin, total 0.30 mg/dL 0.00-1.30 [facility] CBC W/Diff, Automatedon 01-14 Absolute Lymph 3.28 X10 3/uL Normal 0.83-4.51 [facility] Comment on above: Performed By: #### L 501.6710, L100.0100, L3100.5450, L101.9900, L503.6030, L500.4050, L501.5200, L503.0106 ####[facility] [address] [place], [place], [id number] Absolute Neut 6.0 X10 3/uL Normal 2.0-7.7 [facility] Comment on above: Performed By: #### L 501.6710, L100.0100, L3100.5450, L101.9900, L503.6030, L500.4050, L501.5200, L503.0106 ####[facility] [address] [place], [address] Basophils/100 WBC (Bld) 0.6 % Normal 0-1 [facility] Comment on above: Performed By: #### L 501.6710, L100.0100, L3100.5450, L101.9900, L503.6030, L500.4050, L501.5200, L503.0106 ####[facility] [address] [place], [address] Eosinophils/100 WBC (Bld) 1.1 % Normal 0-5 [facility] Comment on above: Performed By: #### L 501.6710, L100.0100, L3100.5450, L101.9900, L503.6030, L500.4050, L501.5200, L503.0106 ####[facility] [address] [place], [address] Erythrocyte distribution width (RBC) [Ratio] 13.6 % Normal 11.6-14.6 [facility] Comment on above: Performed By: #### L 501.6710, L100.0100, L3100.5450, L101.9900, L503.6030, L500.4050, L501.5200, L503.0106 ####[facility] [address] [place], [address] Hematocrit (Bld) [Volume fraction] 39.4 % Normal 37-47 [facility] Comment on above: Performed By: #### L 501.6710, L100.0100, L3100.5450, L101.9900, L503.6030, L500.4050, L501.5200, L503.0106 ####[facility] [address] [place], [address] Hemoglobin (Bld) [Mass/Vol] 13.1 g/dL Normal 12.0-15.0 [facility] Comment on above: Performed By: #### L 501.6710, L100.0100, L3100.5450, L101.9900, L503.6030, L500.4050, L501.5200, L503.0106 ####[facility] [address] [place], [address] IG% 0.500 Normal 0.0-0.9 [facility] Comment on above: Result Comment: IG% - Immature Granulocytes (promyelocytes, myelocytes andmetamyelocytes) > 1% indicates that a LEFT SHIFT is Present. Performed By: #### L 501.6710, L100.0100, L3100.5450, L101.9900, L503.6030, L500.4050, L501.5200, L503.0106 ####[facility] [address] [place], [address] Lymphocytes/100 WBC (Bld) 32.1 % Normal 19-41 [facility] Comment on above: Performed By: #### L 501.6710, L100.0100, L3100.5450, L101.9900, L503.6030, L500.4050, L501.5200, L503.0106 ####[facility] [address] [place], [address] MCH (RBC) [Entitic mass] 28.4 pg Normal 27.0-32.0 [facility] Comment on above: Performed By: #### L 501.6710, L100.0100, L3100.5450, L101.9900, L503.6030, L500.4050, L501.5200, L503.0106 ####[facility] [address] [place], [address] MCHC (RBC) [Mass/Vol] 33.2 g/dL Normal 32-36 [facility] Comment on above: Performed By: #### L 501.6710, L100.0100, L3100.5450, L101.9900, L503.6030, L500.4050, L501.5200, L503.0106 ####[facility] [address] [place], [address] MCV (RBC) [Entitic vol] 85.3 fL Normal 81-99 [facility] Comment on above: Performed By: #### L 501.6710, L100.0100, L3100.5450, L101.9900, L503.6030, L500.4050, L501.5200, L503.0106 ####[facility] [address] [place], [address] Monocytes/100 WBC (Bld) 7.4 % Normal 0-10 [facility] Comment on above: Performed By: #### L 501.6710, L100.0100, L3100.5450, L101.9900, L503.6030, L500.4050, L501.5200, L503.0106 ####[facility] [address] [place], [address] Neutrophils/100 WBC (Bld) 58.3 % Normal 47-70 [facility] Comment on above: Performed By: #### L 501.6710, L100.0100, L3100.5450, L101.9900, L503.6030, L500.4050, L501.5200, L503.0106 ####[facility] [address] [place], [address] Nucleated RBC (Bld) [#/Vol] 0 10*3/uL Normal 0-5 [facility] Comment on above: Performed By: #### L 501.6710, L100.0100, L3100.5450, L101.9900, L503.6030, L500.4050, L501.5200, L503.0106 ####[facility] [address] [place], [address] Platelet mean volume (Bld) [Entitic vol] 9.4 fL Normal 6.2-12.0 [facility] Comment on above: Performed By: #### L 501.6710, L100.0100, L3100.5450, L101.9900, L503.6030, L500.4050, L501.5200, L503.0106 ####[facility] [address] [place], [address] Platelets (Bld) [#/Vol] 428 10*3/uL Normal 150-450 [facility] Comment on above: Performed By: #### L 501.6710, L100.0100, L3100.5450, L101.9900, L503.6030, L500.4050, L501.5200, L503.0106 ####[facility] [address] [place], [address] RBC (Bld) [#/Vol] 4.62 10*6/uL Normal 4.2-5.4 [facility] Comment on above: Performed By: #### L 501.6710, L100.0100, L3100.5450, L101.9900, L503.6030, L500.4050, L501.5200, L503.0106 ####[facility] [address] [place], [address] RDW SD 42.0 fl Normal 35.1-43.9 [facility] Comment on above: Performed By: #### L 501.6710, L100.0100, L3100.5450, L101.9900, L503.6030, L500.4050, L501.5200, L503.0106 ####[facility] [address] [place], [address] WBC (Bld) [#/Vol] 10.2 10*3/uL Normal 4.4-11.0 [facility] Comment on above: Performed By: #### L 501.6710, L100.0100, L3100.5450, L101.9900, L503.6030, L500.4050, L501.5200, L503.0106 ####[facility] [address] [place], [place], [id number] CRPon 01-23-2025 C-REACTIVE PROT 6.43 mg/L High 0.0-3.0 [facility] Comment on above: Performed By: #### L 501.6710, L100.0100, L3100.5450, L101.9900, L503.6030, L500.4050, L501.5200, L503.0106 ####[facility] [address] [place], [place], [id number] CRP [Mass/Vol]Ordered By: Fern Thomas on 01-23-2025 C-Reactive Protein Extended Range 6.43 mg/L High 0.0-3.0 [facility] Serum or plasma C reactive protein measurement (mass/volume) 6.43 mg/L High 0.0-3.0 [facility] Calcium [Mass/Vol]Ordered By : Dannielle Thomas on 01-23-2025 Serum or plasma calcium measurement (mass/volume) 9.5 mg/dL 7.6-11.0 [facility] Calculated total iron bindin g capacityOrdered By: Dannielle Thomas on 01-23-2025 Total Iron Binding Capacity 376 ug/dL 250-450 [facility] Calculated total iron binding capacity 376 ug/dL 250-450 [facility] Carbon dioxide, total [Moles /volume] in Central venous bloodOrdered By: Dannielle Thomas on 01-23-2025 CO2 [Moles/Vol] 23.8 mmol/L 21.0-32.0 [facility] Carbon dioxide, total [Moles/volume] in Central venous blood 23.8 mmol/L 21.0-32.0 [facility] Centromere B antibody assayO rdered By: Dannielle Thomas on 01-23-2025 Centromere B Antibody TNP [facility] Comment on above: Test not performed Chloride assayOrdered By: Fern Thomas on 01-23-2025 Chloride [Moles/Vol] 104 mmol/L 98-108 [facility] Chloride assay 104 mmol/L 98-108 [facility] Chromatin antibody assayOrde red By: Dannielle Thomas on 01-23-2025 Antichromatin Antibodies TNP [facility] Comment on above: Test not performed Cobalamin (Vitamin B12) [Mas s/Vol]Ordered By: Dannielle Thomas on 01-23-2025 Vitamin B12 ser/plas 331 pg/mL 180-914 [facility] Comprehensive Metabolic Prof ilon 01-23-2025 Albumin [Mass/Vol] 3.9 g/dL Normal 3.4-4.8 [facility] Comment on above: Performed By: #### L 501.6710, L100.0100, L3100.5450, L101.9900, L503.6030, L500.4050, L501.5200, L503.0106 ####[facility] [address] [place], [address] Albumin/Globulin [Mass ratio] 1.5 {ratio} Normal 0.9-2.4 [facility] Comment on above: Performed By: #### L 501.6710, L100.0100, L3100.5450, L101.9900, L503.6030, L500.4050, L501.5200, L503.0106 ####[facility] [address] [place], [address] ALK PHOS 78 U/L Normal 35-104 [facility] Comment on above: Performed By: #### L 501.6710, L100.0100, L3100.5450, L101.9900, L503.6030, L500.4050, L501.5200, L503.0106 ####[facility] [address] [place], [address] ALT [Catalytic activity/Vol] 11 U/L Normal <=34 [facility] Comment on above: Performed By: #### L 501.6710, L100.0100, L3100.5450, L101.9900, L503.6030, L500.4050, L501.5200, L503.0106 ####[facility] [address] [place], [address] AST [Catalytic activity/Vol] 19 U/L Normal <=31 [facility] Comment on above: Performed By: #### L 501.6710, L100.0100, L3100.5450, L101.9900, L503.6030, L500.4050, L501.5200, L503.0106 ####[facility] [address] [place], [address] Bilirubin [Mass/Vol] 0.30 mg/dL Normal 0.00-1.30 [facility] Comment on above: Performed By: #### L 501.6710, L100.0100, L3100.5450, L101.9900, L503.6030, L500.4050, L501.5200, L503.0106 ####[facility] [address] [place], [address] BUN/CRE 10.2 RATIO Normal 10-20 [facility] Comment on above: Performed By: #### L 501.6710, L100.0100, L3100.5450, L101.9900, L503.6030, L500.4050, L501.5200, L503.0106 ####[facility] [address] [place], [address] Calcium [Mass/Vol] 9.5 mg/dL Normal 7.6-11.0 [facility] Comment on above: Performed By: #### L 501.6710, L100.0100, L3100.5450, L101.9900, L503.6030, L500.4050, L501.5200, L503.0106 ####[facility] [address] [place], [address] Chloride [Moles/Vol] 104 mmol/L Normal 98-108 [facility] Comment on above: Performed By: #### L 501.6710, L100.0100, L3100.5450, L101.9900, L503.6030, L500.4050, L501.5200, L503.0106 ####[facility] [address] [place], [address] CO2 [Moles/Vol] 23.8 mmol/L Normal 21.0-32.0 [facility] Comment on above: Performed By: #### L 501.6710, L100.0100, L3100.5450, L101.9900, L503.6030, L500.4050, L501.5200, L503.0106 ####[facility] [address] [place], [address] Creatinine [Mass/Vol] 0.89 mg/dL Normal 0.70-1.20 [facility] Comment on above: Performed By: #### L 501.6710, L100.0100, L3100.5450, L101.9900, L503.6030, L500.4050, L501.5200, L503.0106 ####[facility] [address] [place], [address] GAP 11 Normal 5-15 [facility] Comment on above: Performed By: #### L 501.6710, L100.0100, L3100.5450, L101.9900, L503.6030, L500.4050, L501.5200, L503.0106 ####[facility] [address] [place], [address] GFR/1.73 sq M.predicted among non-blacks MDRD (S/P/Bld) [Vol rate/Area] 72 mL/min/{1.73_m2} Normal >60 [facility] Comment on above: Result Comment: mL/m in/1.73m2 CKD-EPI Creatinine Equation (2020) Performed By: #### L 501.6710, L100.0100, L3100.5450, L101.9900, L503.6030, L500.4050, L501.5200, L503.0106 ####[facility] [address] [place], [address] Globulin (S) [Mass/Vol] 2.7 g/dL Normal 2.2-4.2 [facility] Comment on above: Performed By: #### L 501.6710, L100.0100, L3100.5450, L101.9900, L503.6030, L500.4050, L501.5200, L503.0106 ####[facility] [address] [place], [address] Glucose [Mass/Vol] 115 mg/dL High 70-99 [facility] Comment on above: Performed By: #### L 501.6710, L100.0100, L3100.5450, L101.9900, L503.6030, L500.4050, L501.5200, L503.0106 ####[facility] [address] [place], [address] Potassium [Moles/Vol] 4.2 mmol/L Normal 3.3-5.1 [facility] Comment on above: Performed By: #### L 501.6710, L100.0100, L3100.5450, L101.9900, L503.6030, L500.4050, L501.5200, L503.0106 ####[facility] [address] [place], [address] Sodium [Moles/Vol] 139 mmol/L Normal 133-145 [facility] Comment on above: Performed By: #### L 501.6710, L100.0100, L3100.5450, L101.9900, L503.6030, L500.4050, L501.5200, L503.0106 ####[facility] [address] [place], [address] T PROT 6.7 g/dL Normal 5.9-8.4 [facility] Comment on above: Performed By: #### L 501.6710, L100.0100, L3100.5450, L101.9900, L503.6030, L500.4050, L501.5200, L503.0106 ####[facility] [address] [place], [address] Urea nitrogen [Mass/Vol] 9 mg/dL Normal 4-19 [facility] Comment on above: Performed By: #### L 501.6710, L100.0100, L3100.5450, L101.9900, L503.6030, L500.4050, L501.5200, L503.0106 ####[facility] [address] [place], [address] Creatinine [Mass/Vol]Ordered By: Dannielle Thomas on 01-23-2025 Serum creatinine measurement (mass/volume) 0.89 mg/dL 0.70-1.20 [facility] DNA double strand Ab Qn (S)O rdered By: Dannielle Thomas on 01-23-2025 Anti-Double Strand DNA Antibody TNP [facility] Comment on above: Test not performed ESR (Bld) [Velocity]Ordered By: Dannielle Thomas on 01-23-2025 Erythrocyte sedimentation rate 22 mm/hr 0-30 [facility] Eosinophil percentageOrdered By: Dannielle Thomas on 01-23-2025 Eosinophils/100 WBC (Bld) 1.1 % 0-5 [facility] Eosinophil percentage 1.1 % 0-5 [facility] Erythrocyte Sed Rateon 01-23 SED RATE 22 mm/hr Normal 0-30 [facility] Comment on above: Performed By: #### L 501.6710, L100.0100, L3100.5450, L101.9900, L503.6030, L500.4050, L501.5200, L503.0106 ####[facility] [address] [place], [place], [id number] Erythrocyte distribution wid th (RBC) [Ratio]Ordered By: Dannielle Thomas on 01-23-2025 Erythrocyte distribution width ratio 13.6 % 11.6-14.6 [facility] Erythrocyte distribution width standard deviation 42.0 fl 35.1-43.9 [facility] Erythrocyte distribution wid th ratioOrdered By: Dannielle Thomas on 01-23-2025 Erythrocyte distribution width (RBC) [Ratio] 13.6 % 11.6-14.6 [facility] Erythrocyte distribution wid th standard deviationOrdered By: Dannielle Thomas on 01-23-2025 Erythrocyte distribution width (RBC) [Entitic vol] 42.0 fL 35.1-43.9 [facility] Erythrocyte distribution width (RBC) [Ratio] 42.0 fl 35.1-43.9 [facility] Erythrocyte sedimentation ra teOrdered By: Dannielle Thomas on 01-23-2025 ESR (Bld) [Velocity] 22 mm/h 0-30 [facility] GFR/1.73 sq M.predicted shawn g non-blacks MDRD (S/P/Bld) [Vol rate/Area]Ordered By: Dannielle Thomas on 01-23-2025 Estimated GFR (MDRD) Non-Af Amer 72 >60 [facility] Comment on above: mL/min/1.73m2 CKD-EP I Creatinine Equation (2020) Glomerular filtration rate (GFR) estimation/1.73 sq m using serum, plasma, or whole b 72 >60 [facility] Glomerular filtration rate ( GFR) estimation/1.73 sq m using serum, plasma, or whole bOrdered By: Dannielle Thomas on 01-23-2025 GFR/1.73 sq M.predicted among non-blacks MDRD (S/P/Bld) [Vol rate/Area] 72 mL/min/{1.73_m2} >60 [facility] Comment on above: mL/min/1.73m2 CKD-EP I Creatinine Equation (2020) Glucose [Mass/Vol]Ordered By : Dannielle Thomas on 01-23-2025 Serum glucose measurement (mass/volume) 115 mg/dL High 70-99 [facility] Hematocrit Auto (Bld) [Volum e fraction]Ordered By: Dannielle Thomas on 01-23-2025 Hematocrit (Bld) [Volume fraction] 39.4 % 37-47 [facility] Automated blood hematocrit (percentage) 39.4 % 37-47 [facility] Hemoglobin measurementOrdere d By: Dannielle Thomas on 01-23-2025 Hemoglobin (Bld) [Mass/Vol] 13.1 g/dL 12.0-15.0 [facility] Hemoglobin measurement 13.1 g/dL 12.0-15.0 [facility] Immature granulocytes/100 WB C Auto (Bld)Ordered By: Dannielle Thomas on 01-23-2025 Immature granulocytes/100 WBC (Bld) 0.500 % 0.0-0.9 [facility] Comment on above: IG% - Immature Granu locytes (promyelocytes, myelocytes and metamyelocytes) > 1% indicates that a LEFT SHIFT is Present. Automated immature granulocyte percentage 0.500 % 0.0-0.9 [facility] Iron (Unsp spec) [Mass/Mass] Ordered By: Dannielle Thomas on 01-23-2025 Iron [Mass/Vol] 82 ug/dL 50-170 [facility] Iron measurement (mass/mass) 82 ug/dL 50-170 [facility] Iron measurement (mass/mass) Ordered By: Dannielle Thomas on 01-23-2025 Iron (Unsp spec) [Mass/Mass] 82 ug/dL 50-170 [facility] Iron saturation [Mass fracti on]Ordered By: Dannielle Thomas on 01-23-2025 Iron Saturation 21.8 % 13-59 [facility] Comment on above: Previous reported re sult: 22.0 %Edited by: CARMELINA on 01/23/25:1942 AMENDED REPORT 01/23/251942 IRON SATURATION previously reported as: 22.0 % Serum or plasma iron saturation measurement (mass fraction) 21.8 % 13-59 [facility] Iron+Iron Binding Capacityon 01-23-2025 Iron [Mass/Vol] 82 ug/dL Normal 50-170 [facility] Comment on above: Performed By: #### L 501.6710, L100.0100, L3100.5450, L101.9900, L503.6030, L500.4050, L501.5200, L503.0106 ####[facility] [address] [place], [address] UIBC 294 ug/dL Normal 228-428 [facility] Comment on above: Performed By: #### L 501.6710, L100.0100, L3100.5450, L101.9900, L503.6030, L500.4050, L501.5200, L503.0106 ####[facility] [address] [place], [address] Kamini-1 antibody assayOrdered B y: Dannielle Thomas on 01-23-2025 KAMINI-1 Antibody TNP [facility] Comment on above: Test not performed L503.0106on 01-23-2025 Cobalamin (Vitamin B12) [Mass/Vol] 331 pg/mL Normal 180-914 [facility] Comment on above: Performed By: #### L 501.6710, L100.0100, L3100.5450, L101.9900, L503.6030, L500.4050, L501.5200, L503.0106 ####[facility] [address] [place], [place], [id number] Laboratory - Chemistry and C hemistry - challengeOrdered By: Dannielle Thomas on 01-23-2025 AST [Catalytic activity/Vol] 19 U/L <32 [facility] Lymphocytes Auto (Unsp spec) [#/Vol]Ordered By: Dannielle Thomas on 01-23-2025 Lymphocytes (Bld) [#/Vol] 3.28 10*3/uL 0.83-4.51 [facility] Absolute lymphocyte count 3.28 X10^3/uL 0.83-4.51 [facility] Lymphocytes/100 WBC Auto (Un sp spec)Ordered By: Dannielle Thomas on 01-23-2025 Lymphocytes/100 WBC (Bld) 32.1 % [facility] Automated lymphocyte count as percentage of total leukocytes 32.1 % [facility] MCV (RBC) [Entitic vol]Order ed By: Dannielle Thomas on 01-23-2025 MCV (mean corpuscular volume) determination 85.3 fL 81-99 [facility] MCV (mean corpuscular volume ) determinationOrdered By: Dannielle Thomas on 01-23-2025 MCV (RBC) [Entitic vol] 85.3 fL 81-99 [facility] MR/BMS.IMBon 01-23-2025 MR/BMS.IMB Normal [facility] Magnesiumon 01-23-2025 Magnesium [Mass/Vol] 1.9 mg/dL Normal 1.5-2.2 [facility] Comment on above: Performed By: #### L 501.6710, L100.0100, L3100.5450, L101.9900, L503.6030, L500.4050, L501.5200, L503.0106 ####[facility] [address] [facility] [place]. [place], [place], [address] Magnesium (Unsp spec) [Mass/ Vol]Ordered By: Dannielle Thomas on 01-23-2025 Magnesium [Mass/Vol] 1.9 mg/dL 1.5-2.2 [facility] Magnesium measurement (mass/volume) 1.9 mg/dL 1.5-2.2 [facility] Magnesium measurement (mass/ volume)Ordered By: Dannielle Thomas on 01-23-2025 Magnesium (Unsp spec) [Mass/Vol] 1.9 mg/dL 1.5-2.2 [facility] Mean corpuscular hemoglobin (MCH) determinationOrdered By: Dannielle Thomas on 01-23-2025 MCH (RBC) [Entitic mass] 28.4 pg 27.0-32.0 [facility] Mean corpuscular hemoglobin (MCH) determination 28.4 pg 27.0-32.0 [facility] Mean corpuscular hemoglobin concentration (MCHC) determinationOrdered By: Dannielle Thomas on 01-23-2025 MCHC (RBC) [Mass/Vol] 33.2 g/dL 32-36 [facility] Mean corpuscular hemoglobin concentration (MCHC) determination 33.2 g/dL 32-36 [facility] Mean platelet volume determi nationOrdered By: Dannielle Thomas on 01-23-2025 Platelet mean volume (Bld) [Entitic vol] 9.4 fL 6.2-12.0 [facility] Mean platelet volume determination 9.4 fl 6.2-12.0 [facility] Monocyte percentageOrdered B y: Dannielle Thomas on 01-23-2025 Monocytes/100 WBC (Bld) 7.4 % 0-10 [facility] Monocyte percentage 7.4 % 0-10 [facility] Neutrophil percentageOrdered By: Dannielle Thomas on 01-23-2025 Neutrophils/100 WBC (Bld) 58.3 % 47-70 [facility] Neutrophil percentage 58.3 % 47-70 [facility] No Panel InformationOrdered By: Dannielle Thomas on 01-23-2025 Unsaturated Iron Binding Capacity 294 ug/dL 228-428 [facility] 19 U/L <32 [facility] 294 ug/dL 228-428 [facility] Nucleated red blood cell per centageOrdered By: Dannielle Thomas on 01-23-2025 Nucleated RBC/100 WBC (Bld) [Ratio] 0 % 0-5 [facility] Nucleated red blood cell percentage 0 % 0-5 [facility] Platelet countOrdered By: Fern Thomas on 01-23-2025 Platelets (Bld) [#/Vol] 428 10*3/uL 150-450 [facility] Platelet count 428 K/mm3 150-450 [facility] Potassium (Unsp spec) [Mass/ Vol]Ordered By: Dannielle Thomas on 01-23-2025 Potassium [Moles/Vol] 4.2 mmol/L 3.3-5.1 [facility] Potassium measurement (mass/volume) 4.2 mmol/L 3.3-5.1 [facility] Potassium measurement (mass/ volume)Ordered By: Dannielle Thomas on 01-23-2025 Potassium (Unsp spec) [Mass/Vol] 4.2 mmol/L 3.3-5.1 [facility] RBC Auto (Bld) [#/Vol]Ordere d By: Dannielle Thomas on 01-23-2025 RBC (Bld) [#/Vol] 4.62 10*6/uL 4.2-5.4 [facility] Automated blood erythrocyte count 4.62 M/mm3 4.2-5.4 [facility] REVERSE LOGISTICS ANALYST abOrdered By: Dannielle Salgado hner on 01-23-2025 REVERSE LOGISTICS ANALYST Antibody [facility] Comment on above: Test not performed SCL-70 extractable nuclear A b Qn (S)Ordered By: Dannielle Thomas on 01-23-2025 Scl-70 (Scleroderma) Antibody [facility] Comment on above: Test not performed SS-A IgG antibody assayOrder ed By: Dannielle Thomas on 01-23-2025 SS-A/Ro IgG Antibody [facility] Comment on above: Test not performed SS-B IgG antibody assayOrder ed By: Dannielle Thomas on 01-23-2025 SS-B/La IgG Antibody [facility] Comment on above: Test not performed Serum DNA double strand anti body assay (units/volume)Ordered By: Dannielle Thomas on 01-23-2025 DNA double strand Ab Qn (S) [facility] Comment on above: Test not performed Serum DNA double strand antibody assay (units/volume) [facility] Serum Scl-70 antibody assay (units/volume)Ordered By: Dannielle Thomas on 01-23-2025 SCL-70 extractable nuclear Ab Qn (S) [facility] Comment on above: Test not performed Serum creatinine measurement (mass/volume)Ordered By: Dannielle Thomas on 01-23-2025 Creatinine [Mass/Vol] 0.89 mg/dL 0.70-1.20 [facility] Serum globulin measurementOr dered By: Dannielle Thomas on 01-23-2025 Globulin (S) [Mass/Vol] 2.7 g/dL 2.2-4.2 [facility] Serum globulin measurement 2.7 g/dL 2.2-4.2 [facility] Serum glucose measurement (m ass/volume)Ordered By: Dannielle Thomas on 01-23-2025 Glucose [Mass/Vol] 115 mg/dL High 70-99 [facility] Serum or plasma C reactive p rotein measurement (mass/volume)Ordered By: Dannielle Thomas on 01-23-2025 CRP [Mass/Vol] 6.43 mg/L High 0.0-3.0 [facility] Serum or plasma alanine avelar otransferase (ALT) measurementOrdered By: Dannielle Thomas on 01-23-2025 ALT [Catalytic activity/Vol] 11 U/L <35 [facility] Serum or plasma albumin bandar urement (mass/volume)Ordered By: Dannielle Thomas on 01-23-2025 Albumin [Mass/Vol] 3.9 g/dL 3.4-4.8 [facility] Serum or plasma albumin/glob ulin mass ratioOrdered By: Dannielle Thomas on 01-23-2025 Albumin/Globulin [Mass ratio] 1.5 {ratio} 0.9-2.4 [facility] Serum or plasma alkaline kalli sphatase measurementOrdered By: Dannielle Thomas on 01-23-2025 ALP [Catalytic activity/Vol] 78 U/L 35-104 [facility] Serum or plasma calcium bandar urement (mass/volume)Ordered By: Dannielle Thomas on 01-23-2025 Calcium [Mass/Vol] 9.5 mg/dL 7.6-11.0 [facility] Serum or plasma iron saturat ion measurement (mass fraction)Ordered By: Dannielle Thomas on 01-23-2025 Iron saturation [Mass fraction] 21.8 % 13-59 [facility] Comment on above: Previous reported re sult: 22.0 %Edited by: AUTOINS on 01/23/25:1942 AMENDED REPORT 01/23/251942 IRON SATURATION previously reported as: 22.0 % Serum or plasma urea nitroge n measurement (mass/volume)Ordered By: Dannielle Thomas on 01-23-2025 Urea nitrogen [Mass/Vol] 9 mg/dL 03-04 [facility] Hunter antibody assayOrdered By: Dannielle Thomas on 01-23-2025 SM Antibody TNP [facility] Comment on above: Test not performed Sodium levelOrdered By: Nichol Thomas on 01-23-2025 Sodium [Moles/Vol] 139 mmol/L 133-145 [facility] Sodium level 139 mmol/L 133-145 [facility] Total proteinOrdered By: Lo Thomas on 01-23-2025 Protein [Mass/Vol] 6.7 g/dL 5.9-8.4 [facility] Total protein 6.7 g/dL 5.9-8.4 [facility] Urea nitrogen [Mass/Vol]Orde red By: Dannielle Thomas on 01-23-2025 Serum or plasma urea nitrogen measurement (mass/volume) 9 mg/dL 03-04 [facility] Vitamin B12 ser/plasOrdered By: Dannielle Thomas on 01-23-2025 Cobalamin (Vitamin B12) [Mass/Vol] 331 pg/mL 180-914 [facility] White blood cell (WBC) count Ordered By: Dannielle Thomas on 01-23-2025 WBC (Bld) [#/Vol] 10.2 10*3/uL 4.4-11.0 [facility] White blood cell (WBC) count 10.2 K/mm3 4.4-11.0 [facility] CPK Total, Creatine Kinaseon 01-11-2025 CPK TOTAL 60 U/L Normal 24-195 [facility] Comment on above: Performed By: #### L 101.9900, L500.4050, L501.3620, L100.0100 ####[facility] [address] [place], [place], [id number] Comprehensive Metabolic Prof ilon 01-11-2025 Albumin [Mass/Vol] 4.0 g/dL Normal 3.4-4.8 [facility] Comment on above: Performed By: #### L 101.9900, L500.4050, L501.3620, L100.0100 ####[facility] [address] [place], [address] Albumin/Globulin [Mass ratio] 1.3 {ratio} Normal 0.9-2.4 [facility] Comment on above: Performed By: #### L 101.9900, L500.4050, L501.3620, L100.0100 ####[facility] [address] [place], [address] ALK PHOS 85 U/L Normal 35-104 [facility] Comment on above: Performed By: #### L 101.9900, L500.4050, L501.3620, L100.0100 ####[facility] [address] [place], [address] ALT [Catalytic activity/Vol] 10 U/L Normal <=34 [facility] Comment on above: Performed By: #### L 101.9900, L500.4050, L501.3620, L100.0100 ####[facility] [address] [place], [address] Anion gap [Moles/Vol] 14 mmol/L Normal 5-15 [facility] Comment on above: Performed By: #### L 101.9900, L500.4050, L501.3620, L100.0100 ####[facility] [address] [place], [address] AST [Catalytic activity/Vol] 23 U/L Normal <=31 [facility] Comment on above: Performed By: #### L 101.9900, L500.4050, L501.3620, L100.0100 ####[facility] [address] [place], [address] Bilirubin [Mass/Vol] 0.27 mg/dL Normal 0.00-1.30 [facility] Comment on above: Performed By: #### L 101.9900, L500.4050, L501.3620, L100.0100 ####[facility] [address] [place], [address] BUN/CRE 5.8 RATIO Low 10-20 [facility] Comment on above: Performed By: #### L 101.9900, L500.4050, L501.3620, L100.0100 ####[facility] [address] [place], [address] Calcium [Mass/Vol] 9.7 mg/dL Normal 7.6-11.0 [facility] Comment on above: Performed By: #### L 101.9900, L500.4050, L501.3620, L100.0100 ####[facility] [address] [place], [address] Chloride [Moles/Vol] 102 mmol/L Normal 96-108 [facility] Comment on above: Performed By: #### L 101.9900, L500.4050, L501.3620, L100.0100 ####[facility] [address] [place], [address] CO2 [Moles/Vol] 24.0 mmol/L Normal 22.0-29.0 [facility] Comment on above: Performed By: #### L 101.9900, L500.4050, L501.3620, L100.0100 ####[facility] [address] [place], [address] Creatinine [Mass/Vol] 0.9 mg/dL Normal 0.6-1.0 [facility] Comment on above: Performed By: #### L 101.9900, L500.4050, L501.3620, L100.0100 ####[facility] [address] [place], [address] GFR/1.73 sq M.predicted among non-blacks MDRD (S/P/Bld) [Vol rate/Area] 75 mL/min/{1.73_m2} Normal >60 [facility] Comment on above: Result Comment: mL/m in/1.73m2 CKD-EPI Creatinine Equation (2020) Performed By: #### L 101.9900, L500.4050, L501.3620, L100.0100 ####[facility] [address] [place], [address] Globulin (S) [Mass/Vol] 3.2 g/dL Normal 2.2-4.2 [facility] Comment on above: Performed By: #### L 101.9900, L500.4050, L501.3620, L100.0100 ####[facility] [address] [place], [address] Glucose [Mass/Vol] 72 mg/dL Normal 70-99 [facility] Comment on above: Performed By: #### L 101.9900, L500.4050, L501.3620, L100.0100 ####[facility] [address] [place], [address] Potassium [Moles/Vol] 4.6 mmol/L Normal 3.3-5.1 [facility] Comment on above: Performed By: #### L 101.9900, L500.4050, L501.3620, L100.0100 ####[facility] [address] [place], [address] Sodium [Moles/Vol] 140 mmol/L Normal 133-145 [facility] Comment on above: Performed By: #### L 101.9900, L500.4050, L501.3620, L100.0100 ####[facility] [address] [place], [address] T PROT 7.2 g/dL Normal 5.9-8.4 [facility] Comment on above: Performed By: #### L 101.9900, L500.4050, L501.3620, L100.0100 ####[facility] [address] [place], [address] Urea nitrogen [Mass/Vol] 5 mg/dL Normal 4-19 [facility] Comment on above: Performed By: #### L 101.9900, L500.4050, L501.3620, L100.0100 ####[facility] [address] [place], [address] ALP [Catalytic activity/Vol] Ordered By: Dannielle Thomas on 01-10-2025 Serum or plasma alkaline phosphatase measurement 85 U/L 35-104 [facility] ALT [Catalytic activity/Vol] Ordered By: Dannielle Thomas on 01-10-2025 Serum or plasma alanine aminotransferase (ALT) measurement 10 U/L <35 [facility] Absolute lymphocyte countOrd ered By: Dannielle Thomas on 01-10-2025 Lymphocytes Auto (Unsp spec) [#/Vol] 3.63 10*3/uL 0.83-4.51 [facility] Absolute neutrophil countOrd ered By: Dannielle Thomas on 01-10-2025 Neutrophils (Bld) [#/Vol] 7.6 10*3/uL 2.0-7.7 [facility] Absolute neutrophil count 7.6 X10^3/uL 2.0-7.7 [facility] Albumin [Mass/Vol]Ordered By : Dannielle Thomas on 01-10-2025 Serum or plasma albumin measurement (mass/volume) 4.0 g/dL 3.4-4.8 [facility] Albumin/Globulin [Mass ratio ]Ordered By: Danniellecarlita Thomas on 01-10-2025 Serum or plasma albumin/globulin mass ratio 1.3 RATIO 0.9-2.4 [facility] Anion gap [Moles/Vol]Ordered By: Dannielle Thomas on 01-10-2025 Serum or plasma anion gap determination (moles/volume) 14 5-15 [facility] Automated lymphocyte count a s percentage of total leukocytesOrdered By: Dannielle Thomas on 01-10-2025 Lymphocytes/100 WBC Auto (Unsp spec) 28.8 % 19-41 [facility] BUN/creatinine ratioOrdered By: Dannielle Thomas on 01-10-2025 Urea nitrogen/Creatinine [Mass ratio] 5.8 mg/mg Low 10-20 [facility] BUN/creatinine ratio 5.8 RATIO Low 10-20 [facility] Basophil percentageOrdered B y: Dannielle Thomas on 01-10-2025 Basophils/100 WBC (Bld) 0.6 % 0-1 [facility] Basophil percentage 0.6 % 0-1 [facility] Bilirubin, totalOrdered By: Dannielle Thomas on 01-10-2025 Bilirubin [Mass/Vol] 0.27 mg/dL 0.00-1.30 [facility] Bilirubin, total 0.27 mg/dL 0.00-1.30 [facility] CBC W/Diff, Automatedon 12-18 Absolute Lymph 3.63 X10 3/uL Normal 0.83-4.51 [facility] Comment on above: Performed By: #### L 101.9900, L500.4050, L501.3620, L100.0100 ####[facility] [address] [place], [address] Absolute Neut 7.6 X10 3/uL Normal 2.0-7.7 [facility] Comment on above: Performed By: #### L 101.9900, L500.4050, L501.3620, L100.0100 ####[facility] [address] [place], [address] Basophils/100 WBC (Bld) 0.6 % Normal 0-1 [facility] Comment on above: Performed By: #### L 101.9900, L500.4050, L501.3620, L100.0100 ####[facility] [address] [place], [address] Eosinophils/100 WBC (Bld) 2.0 % Normal 0-5 [facility] Comment on above: Performed By: #### L 101.9900, L500.4050, L501.3620, L100.0100 ####[facility] [address] [place], [address] Erythrocyte distribution width (RBC) [Ratio] 13.2 % Normal 11.6-14.6 [facility] Comment on above: Performed By: #### L 101.9900, L500.4050, L501.3620, L100.0100 ####[facility] [address] [place], [address] Hematocrit (Bld) [Volume fraction] 41.3 % Normal 37-47 [facility] Comment on above: Performed By: #### L 101.9900, L500.4050, L501.3620, L100.0100 ####[facility] [address] [place], [address] Hemoglobin (Bld) [Mass/Vol] 13.5 g/dL Normal 12.0-15.0 [facility] Comment on above: Performed By: #### L 101.9900, L500.4050, L501.3620, L100.0100 ####[facility] [address] [place], [address] IG% 1.800 High 0.0-0.9 [facility] Comment on above: Result Comment: IG% - Immature Granulocytes (promyelocytes, myelocytes andmetamyelocytes) > 1% indicates that a LEFT SHIFT is Present. Performed By: #### L 101.9900, L500.4050, L501.3620, L100.0100 ####[facility] [address] [place], [address] Lymphocytes/100 WBC (Bld) 28.8 % Normal 19-41 [facility] Comment on above: Performed By: #### L 101.9900, L500.4050, L501.3620, L100.0100 ####[facility] [address] [place], [address] MCH (RBC) [Entitic mass] 28.6 pg Normal 27.0-32.0 [facility] Comment on above: Performed By: #### L 101.9900, L500.4050, L501.3620, L100.0100 ####[facility] [address] [place], [address] MCHC (RBC) [Mass/Vol] 32.7 g/dL Normal 32-36 [facility] Comment on above: Performed By: #### L 101.9900, L500.4050, L501.3620, L100.0100 ####[facility] [address] [place], [address] MCV (RBC) [Entitic vol] 87.5 fL Normal 81-99 [facility] Comment on above: Performed By: #### L 101.9900, L500.4050, L501.3620, L100.0100 ####[facility] [address] [place], [address] Monocytes/100 WBC (Bld) 6.2 % Normal 0-10 [facility] Comment on above: Performed By: #### L 101.9900, L500.4050, L501.3620, L100.0100 ####[facility] [address] [place], [address] Neutrophils/100 WBC (Bld) 60.6 % Normal 47-70 [facility] Comment on above: Performed By: #### L 101.9900, L500.4050, L501.3620, L100.0100 ####[facility] [address] [place], [address] Nucleated RBC (Bld) [#/Vol] 0 10*3/uL Normal 0-5 [facility] Comment on above: Performed By: #### L 101.9900, L500.4050, L501.3620, L100.0100 ####[facility] [address] [place], [address] Platelet mean volume (Bld) [Entitic vol] 8.8 fL Normal 6.2-12.0 [facility] Comment on above: Performed By: #### L 101.9900, L500.4050, L501.3620, L100.0100 ####[facility] [address] [place], [address] Platelets (Bld) [#/Vol] 435 10*3/uL Normal 150-450 [facility] Comment on above: Performed By: #### L 101.9900, L500.4050, L501.3620, L100.0100 ####[facility] [address] [place], [address] RBC (Bld) [#/Vol] 4.72 10*6/uL Normal 4.2-5.4 [facility] Comment on above: Performed By: #### L 101.9900, L500.4050, L501.3620, L100.0100 ####[facility] [address] [place], [address] RDW SD 42.2 fl Normal 35.1-43.9 [facility] Comment on above: Performed By: #### L 101.9900, L500.4050, L501.3620, L100.0100 ####[facility] [address] [place], [address] WBC (Bld) [#/Vol] 12.6 10*3/uL High 4.4-11.0 [facility] Comment on above: Performed By: #### L 101.9900, L500.4050, L501.3620, L100.0100 ####[facility] [address] [place], [place], [id number] CK [Catalytic activity/Vol]O rdered By: Dannielle Thomas on 01-10-2025 Serum or plasma creatine kinase activity 60 U/L 24-195 [facility] Calcium [Mass/Vol]Ordered By : Dannielle Thomas on 01-10-2025 Serum or plasma calcium measurement (mass/volume) 9.7 mg/dL 7.6-11.0 [facility] Carbon dioxide measurementOr dered By: Dannielle Thomas on 01-10-2025 CO2 [Moles/Vol] 24.0 mmol/L 22.0-29.0 [facility] Carbon dioxide measurement 24.0 mmol/L 22.0-29.0 [facility] Chloride measurementOrdered By: Dannielle Thomas on 01-10-2025 Chloride [Moles/Vol] 102 mmol/L 96-108 [facility] [facility] Chloride measurement 102 mmol/L 96-108 [facility] Creatinine [Moles/Vol]Ordere d By: Dannielle Thomas on 01-10-2025 Creatinine [Mass/Vol] 0.9 mg/dL 0.6-1.0 [facility] Serum or plasma creatinine measurement (moles/volume) 0.9 mg/dL 0.6-1.0 [facility] ESR (Bld) [Velocity]Ordered By: Dannielle Thomas on 01-10-2025 Erythrocyte sedimentation rate 13 mm/hr 0-30 [facility] Eosinophil percentageOrdered By: Dannielle Thomas on 01-10-2025 Eosinophils/100 WBC (Bld) 2.0 % 0-5 [facility] Eosinophil percentage 2.0 % 0-5 [facility] Erythrocyte Sed Rateon 01-10 SED RATE 13 mm/hr Normal 0-30 [facility] Comment on above: Performed By: #### L 101.9900, L500.4050, L501.3620, L100.0100 ####[facility] [address] [place], [place], [id number] Erythrocyte distribution wid th (RBC) [Ratio]Ordered By: Dannielle Thomas on 01-10-2025 Erythrocyte distribution width ratio 13.2 % 11.6-14.6 [facility] Erythrocyte distribution width standard deviation 42.2 fl 35.1-43.9 [facility] Erythrocyte distribution wid th ratioOrdered By: Dannielle Thomas on 01-10-2025 Erythrocyte distribution width (RBC) [Ratio] 13.2 % 11.6-14.6 [facility] Erythrocyte distribution wid th standard deviationOrdered By: Dannielle Thomas on 01-10-2025 Erythrocyte distribution width (RBC) [Entitic vol] 42.2 fL 35.1-43.9 [facility] Erythrocyte distribution width (RBC) [Ratio] 42.2 fl 35.1-43.9 [facility] Erythrocyte sedimentation ra teOrdered By: Dannielle Thomas on 01-10-2025 ESR (Bld) [Velocity] 13 mm/h 0-30 [facility] GFR/1.73 sq M.predicted shawn g non-blacks MDRD (S/P/Bld) [Vol rate/Area]Ordered By: Dannielle Thomas on 01-10-2025 Estimated GFR (MDRD) Non-Af Amer 75 >60 [facility] Comment on above: mL/min/1.73m2 CKD-EP I Creatinine Equation (2020) Glomerular filtration rate (GFR) estimation/1.73 sq m using serum, plasma, or whole b 75 >60 [facility] Glomerular filtration rate ( GFR) estimation/1.73 sq m using serum, plasma, or whole bOrdered By: Dannielle Thomas on 01-10-2025 GFR/1.73 sq M.predicted among non-blacks MDRD (S/P/Bld) [Vol rate/Area] 75 mL/min/{1.73_m2} >60 [facility] Comment on above: mL/min/1.73m2 CKD-EP I Creatinine Equation (2020) Glucose [Mass/Vol]Ordered By : Dannielle Thomas on 01-10-2025 Serum glucose measurement (mass/volume) 72 mg/dL 70-99 [facility] Hematocrit Auto (Bld) [Volum e fraction]Ordered By: Dannielle Thomas on 01-10-2025 Hematocrit (Bld) [Volume fraction] 41.3 % 37- [facility] Automated blood hematocrit (percentage) 41.3 % - [facility] Hemoglobin measurementOrdere d By: Dannielle Thomas on 01-10-2025 Hemoglobin (Bld) [Mass/Vol] 13.5 g/dL 12.0-15.0 [facility] Hemoglobin measurement 13.5 g/dL 12.0-15.0 [facility] Immature granulocytes/100 WB C Auto (Bld)Ordered By: Dannielle Thomas on 01-10-2025 Immature granulocytes/100 WBC (Bld) 1.800 % High 0.0-0.9 [facility] Comment on above: IG% - Immature Granu locytes (promyelocytes, myelocytes and metamyelocytes) > 1% indicates that a LEFT SHIFT is Present. Automated immature granulocyte percentage 1.800 % High 0.0-0.9 [facility] Laboratory - Chemistry and C hemistry - challengeOrdered By: Dannielle Thomas on 01-10-2025 AST [Catalytic activity/Vol] 23 U/L <32 [facility] Lymphocytes Auto (Unsp spec) [#/Vol]Ordered By: Dannielle Thomas on 01-10-2025 Lymphocytes (Bld) [#/Vol] 3.63 10*3/uL 0.83-4.51 [facility] Absolute lymphocyte count 3.63 X10^3/uL 0.83-4.51 [facility] Lymphocytes/100 WBC Auto (Un sp spec)Ordered By: Dannielle Thomas on 01-10-2025 Lymphocytes/100 WBC (Bld) 28.8 % [facility] Automated lymphocyte count as percentage of total leukocytes 28.8 % [facility] MCV (RBC) [Entitic vol]Order ed By: Dannielle Thomas on 01-10-2025 MCV (mean corpuscular volume) determination 87.5 fL 81-99 [facility] MCV (mean corpuscular volume ) determinationOrdered By: Dannielle Thomas on 01-10-2025 MCV (RBC) [Entitic vol] 87.5 fL 81-99 [facility] Mean corpuscular hemoglobin (MCH) determinationOrdered By: Dannielle Thomas on 01-10-2025 MCH (RBC) [Entitic mass] 28.6 pg 27.0-32.0 [facility] Mean corpuscular hemoglobin (MCH) determination 28.6 pg 27.0-32.0 [facility] Mean corpuscular hemoglobin concentration (MCHC) determinationOrdered By: Dannielle Thomas on 01-10-2025 MCHC (RBC) [Mass/Vol] 32.7 g/dL 32-36 [facility] Mean corpuscular hemoglobin concentration (MCHC) determination 32.7 g/dL -36 [facility] Mean platelet volume determi nationOrdered By: Dannielle Thomas on 01-10-2025 Platelet mean volume (Bld) [Entitic vol] 8.8 fL 6.2-12.0 [facility] Mean platelet volume determination 8.8 fl 6.2-12.0 [facility] Monocyte percentageOrdered B y: Dannielle Thomas on 01-10-2025 Monocytes/100 WBC (Bld) 6.2 % 0-10 [facility] Monocyte percentage 6.2 % 0-10 [facility] Neutrophil percentageOrdered By: Dannielle Thomas on 01-10-2025 Neutrophils/100 WBC (Bld) 60.6 % 47-70 [facility] Neutrophil percentage 60.6 % 47-70 [facility] No Panel InformationOrdered By: Dannielle Thomas on 01-10-2025 23 U/L <32 [facility] Nucleated red blood cell per centageOrdered By: Dannielle Thomas on 01-10-2025 Nucleated RBC/100 WBC (Bld) [Ratio] 0 % 0-5 [facility] Nucleated red blood cell percentage 0 % 0-5 [facility] Platelet countOrdered By: Fern Thomas on 01-10-2025 Platelets (Bld) [#/Vol] 435 10*3/uL 150-450 [facility] Platelet count 435 K/mm3 150-450 [facility] Potassium [Moles/Vol]Ordered By: Dannielle Thomas on 01-10-2025 Serum or plasma potassium measurement 4.6 mmol/L 3.3-5.1 [facility] RBC Auto (Bld) [#/Vol]Ordere d By: Dannielle Thomas on 01-10-2025 RBC (Bld) [#/Vol] 4.72 10*6/uL 4.2-5.4 [facility] Automated blood erythrocyte count 4.72 M/mm3 4.2-5.4 [facility] Serum globulin measurementOr dered By: Dannielle Thomas on 01-10-2025 Globulin (S) [Mass/Vol] 3.2 g/dL 2.2-4.2 [facility] Serum globulin measurement 3.2 g/dL 2.2-4.2 [facility] Serum glucose measurement (m ass/volume)Ordered By: Dannielle Thomas on 01-10-2025 Glucose [Mass/Vol] 72 mg/dL 70-99 [facility] Serum or plasma alanine avelar otransferase (ALT) measurementOrdered By: Dannielle Thomas on 01-10-2025 ALT [Catalytic activity/Vol] 10 U/L <35 [facility] Serum or plasma albumin bandar urement (mass/volume)Ordered By: Dannielle Thomas on 01-10-2025 Albumin [Mass/Vol] 4.0 g/dL 3.4-4.8 [facility] Serum or plasma albumin/glob ulin mass ratioOrdered By: Dannielle Thomas on 01-10-2025 Albumin/Globulin [Mass ratio] 1.3 {ratio} 0.9-2.4 [facility] Serum or plasma alkaline kalli sphatase measurementOrdered By: Dannielle Thomas on 01-10-2025 ALP [Catalytic activity/Vol] 85 U/L 35-104 [facility] Serum or plasma anion gap de termination (moles/volume)Ordered By: Dannielle Thomas on 01-10-2025 Anion gap [Moles/Vol] 14 mmol/L 5-15 [facility] Serum or plasma calcium bandar urement (mass/volume)Ordered By: Dannielle Thomas on 01-10-2025 Calcium [Mass/Vol] 9.7 mg/dL 7.6-11.0 [facility] Serum or plasma creatine kin ase activityOrdered By: Dannielle Thomas on 01-10-2025 CK [Catalytic activity/Vol] 60 U/L 24-195 [facility] Serum or plasma creatinine m easurement (moles/volume)Ordered By: Dannielle Thomas on 01-10-2025 Creatinine [Moles/Vol] 0.9 mg/dL 0.6-1.0 [facility] Serum or plasma potassium me asurementOrdered By: Dannielle Thomas on 01-10-2025 Potassium [Moles/Vol] 4.6 mmol/L 3.3-5.1 [facility] Serum or plasma sodium measu rement (moles/volume)Ordered By: Dannielle Thomas on 01-10-2025 Sodium [Moles/Vol] 140 mmol/L 133-145 [facility] Serum or plasma urea nitroge n measurement (mass/volume)Ordered By: Dannielle Thomas on 01-10-2025 Urea nitrogen [Mass/Vol] 5 mg/dL 03-04 [facility] Sodium [Moles/Vol]Ordered By : Dannielle Thomas on 01-10-2025 Serum or plasma sodium measurement (moles/volume) 140 mmol/L 133-145 [facility] Total proteinOrdered By: Lo Thomas on 01-10-2025 Protein [Mass/Vol] 7.2 g/dL 5.9-8.4 [facility] Total protein 7.2 g/dL 5.9-8.4 [facility] Urea nitrogen [Mass/Vol]Orde red By: Dannielle Thomas on 01-10-2025 Serum or plasma urea nitrogen measurement (mass/volume) 5 mg/dL 03-04 [facility] White blood cell (WBC) count Ordered By: Dannielle Thomas on 01-10-2025 WBC (Bld) [#/Vol] 12.6 10*3/uL High 4.4-11.0 [facility] White blood cell (WBC) count 12.6 K/mm3 High 4.4-11.0 [facility] Urine Cultureon 12-16-2024 [facility] Culture exhibits no growth. Normal [facility] Comment on above: Performed By: #### M 100.2200 ####[facility] [address] [place], [address] Culture, Blood (WB)on 2024 CUB Blood cultures x2, f rom two different sites No growth in 5 days. Normal [facility] Comment on above: Performed By: #### L 500.4050, L300.3900, M200.1000, L100.0100, L300.4310, L501.4020, L503.6005 ####[facility] [address] [place], [address] Laboratory - Chemistry and C hemistry - challengeOrdered By: Dannielle Thomas on 12-15-2024 Bilirubin Ql (U) Negative [facility] Glucose Ql (U) Negative [facility] Ketones Ql (U) Negative [facility] pH (U) 6.0 [pH] [facility] Specific gravity (U) [Rel density] 1.015 [facility] Urobilinogen (U) [Mass/Vol] 0.2533263 mg/dL [facility] Laboratory - Hematology and Cell countsOrdered By: Dannielle Thomas on 12-15-2024 Hemoglobin Ql (U) Negative [facility] Laboratory - Specimen inform ationOrdered By: Dannielle Thomas on 12-15-2024 Clarity (U) Clear [facility] Color (U) DARK YELLOW [facility] Laboratory - UrinalysisOrder ed By: Dannielle Thomas on 12-15-2024 Nitrite Ql (U) Negative [facility] Protein Ql (U) Negative [facility] MR/BMS.IMBon 12-15-2024 MR/BMS.IMB Normal [facility] No Panel InformationOrdered By: Dannielle Thomas on 12-15-2024 Urine Leukocytes Negatve [facility] Urine Non-Hemolyzed Blood [facility] DARK YELLOW [facility] Clear [facility] Negative [facility] 1.015 [facility] 6.0 [facility] 0.2 mg/dL [facility] Negatve [facility] Urine cultureOrdered By: Lo Thomas on 12-15-2024 Bacteria identified Cx Nom (U) Culture exhibits no growth. [facility] Urine culture Culture exhibits no growth. [facility] Urine Cultureon 12-11-2024 [facility] Mixed Gram Positive Organisms [place] Count 11,000-25,000 [facility] Mixed contaminants. Submit a new specimen if indicated. Normal [facility] Comment on above: Performed By: #### M 100.2200, L400.0001 ####[facility] [address] [place], [address] 12 Lead EKGon 12-10-2024 12 Lead EKG Normal [facility] ALP [Catalytic activity/Vol] Ordered By: Beau Edmonds on 12-10-2024 Serum or plasma alkaline phosphatase measurement 93 U/L 45-117 [facility] ALT [Catalytic activity/Vol] Ordered By: Beau Edmonds on 12-10-2024 Serum or plasma alanine aminotransferase (ALT) measurement 26 U/L 13-56 [facility] Absolute neutrophil countOrd ered By: Beau Edmonds on 12-10-2024 Neutrophils (Bld) [#/Vol] 4.9 10*3/uL 2.0-7.7 [facility] Absolute neutrophil count 4.9 X10^3/uL 2.0-7.7 [facility] Albumin [Mass/Vol]Ordered By : Beau Edmonds on 12-10-2024 Serum or plasma albumin measurement (mass/volume) 3.3 g/dL 3.2-5.0 [facility] Albumin to globulin ratioOrd ered By: Beau Edmonds on 12-10-2024 Albumin/Globulin [Mass ratio] 0.9 {ratio} 0.9-2.4 [facility] Albumin to globulin ratio 0.9 RATIO 0.9-2.4 [facility] Amorphous sediment LM Ql (Ur ine sed)Ordered By: Beau Edmonds on 12-10-2024 Amorphous sediment detection in urine sediment by light microscopy 1+ [facility] Amorphous sediment detection in urine sediment by light microscopyOrdered By: Beau Edmonds on 12-10-2024 Amorphous sediment LM Ql (Urine sed) 1+ [facility] Bacteria LM.HPF (Urine sed) [#/Area]Ordered By: Beau Edmonds on 12-10-2024 Urine sediment bacteria count by microscopy (number/high power field) 2+ /hpf None Seen [facility] Basophil percentageOrdered B y: Beau Edmonds on 12-10-2024 Basophils/100 WBC (Bld) 0.5 % 0-1 [facility] Basophil percentage 0.5 % 0-1 [facility] Bilirubin Test strip Ql (U)O rdered By: Beau Edmonds on 12-10-2024 Bilirubin Ql (U) Negative Negative [facility] Bilirubin, totalOrdered By: Beau Edmonds on 12-10-2024 Bilirubin [Mass/Vol] 0.50 mg/dL 0.20-1.00 [facility] Comment on above: For patients on eltr ombopag therapy, use of Dimension [place] TBIL is not recommended. Bilirubin, total 0.50 mg/dL 0.20-1.00 [facility] Blood cultureOrdered By: Casey thalia Grey on 12-10-2024 Bacteria identified Cx Nom (Bld) No growth in 5 days. [facility] Blood culture No growth in 5 days. [facility] Blood urea nitrogen (BUN)/cr eatinine ratioOrdered By: Beau Edmonds on 12-10-2024 Urea nitrogen/Creatinine [Mass ratio] 6.6 mg/mg Low 10-20 [facility] Blood urea nitrogen (BUN)/creatinine ratio 6.6 RATIO Low 10-20 [facility] CBC W/Diff, Automatedon 11-17 Absolute Lymph 0.63 X10 3/uL Low 0.83-4.51 [facility] Comment on above: Performed By: #### L 500.4050, L300.3900, M200.1000, L100.0100, L300.4310, L501.4020, L503.6005 ####[facility] [address] [place], [place], [id number] Absolute Neut 4.9 X10 3/uL Normal 2.0-7.7 [facility] Comment on above: Performed By: #### L 500.4050, L300.3900, M200.1000, L100.0100, L300.4310, L501.4020, L503.6005 ####[facility] [address] [place], [address] Basophils/100 WBC (Bld) 0.5 % Normal 0-1 [facility] Comment on above: Performed By: #### L 500.4050, L300.3900, M200.1000, L100.0100, L300.4310, L501.4020, L503.6005 ####[facility] [address] [place], [address] Eosinophils/100 WBC (Bld) 0.0 % Normal 0-5 [facility] Comment on above: Performed By: #### L 500.4050, L300.3900, M200.1000, L100.0100, L300.4310, L501.4020, L503.6005 ####[facility] [address] [place], [address] Erythrocyte distribution width (RBC) [Ratio] 12.7 % Normal 11.6-14.6 [facility] Comment on above: Performed By: #### L 500.4050, L300.3900, M200.1000, L100.0100, L300.4310, L501.4020, L503.6005 ####[facility] [address] [place], [address] Hematocrit (Bld) [Volume fraction] 37.5 % Normal 37-47 [facility] Comment on above: Performed By: #### L 500.4050, L300.3900, M200.1000, L100.0100, L300.4310, L501.4020, L503.6005 ####[facility] [address] [place], [address] Hemoglobin (Bld) [Mass/Vol] 13.4 g/dL Normal 12.0-15.0 [facility] Comment on above: Performed By: #### L 500.4050, L300.3900, M200.1000, L100.0100, L300.4310, L501.4020, L503.6005 ####[facility] [address] [place], [address] IG% 0.500 Normal 0.0-0.9 [facility] Comment on above: Result Comment: IG% - Immature Granulocytes (promyelocytes, myelocytes andmetamyelocytes) > 1% indicates that a LEFT SHIFT is Present. Performed By: #### L 500.4050, L300.3900, M200.1000, L100.0100, L300.4310, L501.4020, L503.6005 ####[facility] [address] [place], [address] Lymphocytes/100 WBC (Bld) 10.2 % Low 19-41 [facility] Comment on above: Performed By: #### L 500.4050, L300.3900, M200.1000, L100.0100, L300.4310, L501.4020, L503.6005 ####[facility] [address] [place], [address] MCH (RBC) [Entitic mass] 28.7 pg Normal 27.0-32.0 [facility] Comment on above: Performed By: #### L 500.4050, L300.3900, M200.1000, L100.0100, L300.4310, L501.4020, L503.6005 ####[facility] [address] [place], [address] MCHC (RBC) [Mass/Vol] 35.7 g/dL Normal 32-36 [facility] Comment on above: Performed By: #### L 500.4050, L300.3900, M200.1000, L100.0100, L300.4310, L501.4020, L503.6005 ####[facility] [address] [place], [address] MCV (RBC) [Entitic vol] 80.3 fL Low 81-99 [facility] Comment on above: Performed By: #### L 500.4050, L300.3900, M200.1000, L100.0100, L300.4310, L501.4020, L503.6005 ####[facility] [address] [place], [address] Monocytes/100 WBC (Bld) 9.4 % Normal 0-10 [facility] Comment on above: Performed By: #### L 500.4050, L300.3900, M200.1000, L100.0100, L300.4310, L501.4020, L503.6005 ####[facility] [address] [place], [address] Neutrophils/100 WBC (Bld) 79.4 % High 47-70 [facility] Comment on above: Performed By: #### L 500.4050, L300.3900, M200.1000, L100.0100, L300.4310, L501.4020, L503.6005 ####[facility] [address] [place], [address] Nucleated RBC (Bld) [#/Vol] 0 10*3/uL Normal 0-5 [facility] Comment on above: Performed By: #### L 500.4050, L300.3900, M200.1000, L100.0100, L300.4310, L501.4020, L503.6005 ####[facility] [address] [place], [address] Platelet mean volume (Bld) [Entitic vol] 9.1 fL Normal 6.2-12.0 [facility] Comment on above: Performed By: #### L 500.4050, L300.3900, M200.1000, L100.0100, L300.4310, L501.4020, L503.6005 ####[facility] [address] [place], [address] Platelets (Bld) [#/Vol] 271 10*3/uL Normal 150-450 [facility] Comment on above: Performed By: #### L 500.4050, L300.3900, M200.1000, L100.0100, L300.4310, L501.4020, L503.6005 ####[facility] [address] [place], [address] RBC (Bld) [#/Vol] 4.67 10*6/uL Normal 4.2-5.4 [facility] Comment on above: Performed By: #### L 500.4050, L300.3900, M200.1000, L100.0100, L300.4310, L501.4020, L503.6005 ####[facility] [address] [place], [address] RDW SD 37.1 fl Normal 35.1-43.9 [facility] Comment on above: Performed By: #### L 500.4050, L300.3900, M200.1000, L100.0100, L300.4310, L501.4020, L503.6005 ####[facility] [address] [place], [address] WBC (Bld) [#/Vol] 6.2 10*3/uL Normal 4.4-11.0 [facility] Comment on above: Performed By: #### L 500.4050, L300.3900, M200.1000, L100.0100, L300.4310, L501.4020, L503.6005 ####[facility] [address] [place], [address] Calcium [Mass/Vol]Ordered By : Beau Edmonds on 12-10-2024 Serum or plasma calcium measurement (mass/volume) 8.6 mg/dL 8.5-10.1 [facility] Carbon dioxide measurementOr dered By: Beau Edmonds on 12-10-2024 CO2 [Moles/Vol] 26.0 mmol/L 21.0-32.0 [facility] Carbon dioxide measurement 26.0 mmol/L 21.0-32.0 [facility] Chest PA and Lateralon 12-10 Chest PA and Lateral Normal [facility] Chloride measurementOrdered By: Beau Edmonds on 12-10-2024 Chloride [Moles/Vol] 96 mmol/L Low 98-107 [facility] Chloride measurement 96 mmol/L Low 98-107 [facility] Clarity (U)Ordered By: Beau Edmonds on 12-10-2024 Urine clarity Sl. Cloudy Clear [facility] Color (U)Ordered By: Beau stoddard on 12-10-2024 Urine color determination Yellow Yellow [facility] Comprehensive Metabolic Prof ilon 12-10-2024 Albumin [Mass/Vol] 3.3 g/dL Normal 3.2-5.0 [facility] Comment on above: Order Comment: 'TROP ' Serial specimen #1, #2 or #3: 1 Performed By: #### L 500.4050, L300.3900, M200.1000, L100.0100, L300.4310, L501.4020, L503.6005 ####[facility] [address] [facility] [place], [address] Albumin/Globulin [Mass ratio] 0.9 {ratio} Normal 0.9-2.4 [facility] Comment on above: Order Comment: 'TROP ' Serial specimen #1, #2 or #3: 1 Performed By: #### L 500.4050, L300.3900, M200.1000, L100.0100, L300.4310, L501.4020, L503.6005 ####[facility] [address] [place], [address] ALK P 93 U/L Normal 45-117 [facility] Comment on above: Order Comment: 'TROP ' Serial specimen #1, #2 or #3: 1 Performed By: #### L 500.4050, L300.3900, M200.1000, L100.0100, L300.4310, L501.4020, L503.6005 ####[facility] [address] [place], [address] ALT [Catalytic activity/Vol] 26 U/L Normal 13-56 [facility] Comment on above: Order Comment: 'TROP ' Serial specimen #1, #2 or #3: 1 Performed By: #### L 500.4050, L300.3900, M200.1000, L100.0100, L300.4310, L501.4020, L503.6005 ####[facility] [address] [place], [address] AST [Catalytic activity/Vol] 50 U/L High 15-37 [facility] Comment on above: Order Comment: 'TROP ' Serial specimen #1, #2 or #3: 1 Performed By: #### L 500.4050, L300.3900, M200.1000, L100.0100, L300.4310, L501.4020, L503.6005 ####[facility] [address] [place], [address] Bilirubin [Mass/Vol] 0.50 mg/dL Normal 0.20-1.00 [facility] Comment on above: Order Comment: 'TROP ' Serial specimen #1, #2 or #3: 1 Result Comment: For patients on eltrombopag therapy, use of Dimension [place] TBIL is not recommended. Performed By: #### L 500.4050, L300.3900, M200.1000, L100.0100, L300.4310, L501.4020, L503.6005 ####[facility] [address] [place], [address] BUN/CRE 6.6 RATIO Low 10-20 [facility] Comment on above: Order Comment: 'TROP ' Serial specimen #1, #2 or #3: 1 Performed By: #### L 500.4050, L300.3900, M200.1000, L100.0100, L300.4310, L501.4020, L503.6005 ####[facility] [address] [place], [address] CA,Total 8.6 mg/dL Normal 8.5-10.1 [facility] Comment on above: Order Comment: 'TROP ' Serial specimen #1, #2 or #3: 1 Performed By: #### L 500.4050, L300.3900, M200.1000, L100.0100, L300.4310, L501.4020, L503.6005 ####[facility] [address] [place], [address] Chloride [Moles/Vol] 96 mmol/L Low 98-107 [facility] Comment on above: Order Comment: 'TROP ' Serial specimen #1, #2 or #3: 1 Performed By: #### L 500.4050, L300.3900, M200.1000, L100.0100, L300.4310, L501.4020, L503.6005 ####[facility] [address] [place], [address] CO2 [Moles/Vol] 26.0 mmol/L Normal 21.0-32.0 [facility] Comment on above: Order Comment: 'TROP ' Serial specimen #1, #2 or #3: 1 Performed By: #### L 500.4050, L300.3900, M200.1000, L100.0100, L300.4310, L501.4020, L503.6005 ####[facility] [address] [place], [address] Creatinine [Mass/Vol] 0.76 mg/dL Normal 0.55-1.02 [facility] Comment on above: Order Comment: 'TROP ' Serial specimen #1, #2 or #3: 1 Result Comment: The validity of the calculated GFR GFRAA in patients over70 years has not been determined. Clinical correlation isessential. Performed By: #### L 500.4050, L300.3900, M200.1000, L100.0100, L300.4310, L501.4020, L503.6005 ####[facility] [address] [place], [address] ECRCL 71.56 ml/min Normal [facility] Comment on above: Order Comment: 'TROP ' Serial specimen #1, #2 or #3: 1 Performed By: #### L 500.4050, L300.3900, M200.1000, L100.0100, L300.4310, L501.4020, L503.6005 ####[facility] [address] [place], [address] EST GFR - AA 98 mL/min Normal >60 [facility] Comment on above: Order Comment: 'TROP ' Serial specimen #1, #2 or #3: 1 Result Comment: Afri can Cambodian GFR Calc Performed By: #### L 500.4050, L300.3900, M200.1000, L100.0100, L300.4310, L501.4020, L503.6005 ####[facility] [address] [place], [address] GAP 8 Normal 5-15 [facility] Comment on above: Order Comment: 'TROP ' Serial specimen #1, #2 or #3: 1 Performed By: #### L 500.4050, L300.3900, M200.1000, L100.0100, L300.4310, L501.4020, L503.6005 ####[facility] [address] [place], [place], [id number](522) GFR/1.73 sq M.predicted among non-blacks MDRD (S/P/Bld) [Vol rate/Area] 81 mL/min/{1.73_m2} Normal >60 [facility] Comment on above: Order Comment: 'TROP ' Serial specimen #1, #2 or #3: 1 Result Comment: Non- GFR Calc Performed By: #### L 500.4050, L300.3900, M200.1000, L100.0100, L300.4310, L501.4020, L503.6005 ####[facility] [address] [place], [address] Globulin (S) [Mass/Vol] 3.8 g/dL Normal 2.2-4.2 [facility] Comment on above: Order Comment: 'TROP ' Serial specimen #1, #2 or #3: 1 Performed By: #### L 500.4050, L300.3900, M200.1000, L100.0100, L300.4310, L501.4020, L503.6005 ####[facility] [address] [place], [address] Glucose [Mass/Vol] 90 mg/dL Normal 74-106 [facility] Comment on above: Order Comment: 'TROP ' Serial specimen #1, #2 or #3: 1 Performed By: #### L 500.4050, L300.3900, M200.1000, L100.0100, L300.4310, L501.4020, L503.6005 ####[facility] [address] [place], [address] Potassium [Moles/Vol] 3.2 mmol/L Low 3.5-5.1 [facility] Comment on above: Order Comment: 'TROP ' Serial specimen #1, #2 or #3: 1 Performed By: #### L 500.4050, L300.3900, M200.1000, L100.0100, L300.4310, L501.4020, L503.6005 ####[facility] [address] [place], [address] Sodium [Moles/Vol] 130 mmol/L Low 136-145 [facility] Comment on above: Order Comment: 'TROP ' Serial specimen #1, #2 or #3: 1 Performed By: #### L 500.4050, L300.3900, M200.1000, L100.0100, L300.4310, L501.4020, L503.6005 ####[facility] [address] [place], [address] T PROT 7.1 g/dL Normal 6.4-8.2 [facility] Comment on above: Order Comment: 'TROP ' Serial specimen #1, #2 or #3: 1 Performed By: #### L 500.4050, L300.3900, M200.1000, L100.0100, L300.4310, L501.4020, L503.6005 ####[facility] [address] [place], [place], [id number] Urea nitrogen [Mass/Vol] 5 mg/dL Low 7-18 [facility] Comment on above: Order Comment: 'TROP ' Serial specimen #1, #2 or #3: 1 Performed By: #### L 500.4050, L300.3900, M200.1000, L100.0100, L300.4310, L501.4020, L503.6005 ####[facility] [address] [facility] [place], [place], [id number] Creatinine [Mass/Vol]Ordered By: Beau Edmonds on 12-10-2024 Serum or plasma creatinine measurement (mass/volume) 0.76 mg/dL 0.55-1.02 [facility] Emergency Department Summary on 12-10-2024 Emergency Department Summary Normal [facility] Eosinophil percentageOrdered By: Beau Edmonds on 12-10-2024 Eosinophils/100 WBC (Bld) 0.0 % 0-5 [facility] Eosinophil percentage 0.0 % 0-5 [facility] Epithelial cells.squamous LM Ql (Urine sed)Ordered By: Beau Edmonds on 12-10-2024 Epithelial cells.squamous LM.HPF (Urine sed) [#/Area] 0 /[HPF] 5-10 [facility] Erythrocyte distribution wid th (RBC) [Ratio]Ordered By: Beau Edmonds on 12-10-2024 Erythrocyte distribution width ratio 12.7 % 11.6-14.6 [facility] Erythrocyte distribution width standard deviation 37.1 fl 35.1-43.9 [facility] Erythrocyte distribution wid th ratioOrdered By: Beau Edmonds on 12-10-2024 Erythrocyte distribution width (RBC) [Ratio] 12.7 % 11.6-14.6 [facility] Erythrocyte distribution wid th standard deviationOrdered By: Beau Edmonds on 12-10-2024 Erythrocyte distribution width (RBC) [Entitic vol] 37.1 fL 35.1-43.9 [facility] Estimated glomerular filtrat ion rate (GFR) AmericanOrdered By: Beau Edmonds on 12-10-2024 Estimated GFR (MDRD) Amer 98 mL/min >60 [facility] Comment on above: GFR Calc Estimated glomerular filtration rate (GFR) 98 mL/min >60 [facility] Estimation of creatinine cory aranceOrdered By: Beau Edmonds on 12-10-2024 Estimated Creatinine Clearance Calc 71.56 ml/min [facility] Estimation of creatinine clearance 71.56 ml/min [facility] Glomerular filtration rate ( GFR) estimationOrdered By: Beau Edmonds on 12-10-2024 Estimated GFR (MDRD) Non-Af Amer 81 mL/min >60 [facility] Comment on above: Non- GFR Calc Glomerular filtration rate (GFR) estimation 81 mL/min >60 [facility] Glucose Ql (U)Ordered By: Vinny Edmonds on 12-10-2024 Urine Glucose (UA) Normal mg/dl Normal [facility] Glucose measurementOrdered B y: Beau Edmonds on 12-10-2024 Glucose [Mass/Vol] 90 mg/dL 74-106 [email or web address] r [facility] Glucose measurement 90 mg/dL 74-106 [facility] Hematocrit Auto (Bld) [Volum e fraction]Ordered By: Beau Edmonds on 12-10-2024 Hematocrit (Bld) [Volume fraction] 37.5 % 37-47 [facility] Automated blood hematocrit (percentage) 37.5 % 3747 [facility] Hemoglobin measurementOrdere d By: Beau Edmonds on 12-10-2024 Hemoglobin (Bld) [Mass/Vol] 13.4 g/dL 12.0-15.0 [facility] Hemoglobin measurement 13.4 g/dL 12.0-15.0 [facility] Immature granulocytes/100 WB C Auto (Bld)Ordered By: Beau Edmonds on 12-10-2024 Immature granulocytes/100 WBC (Bld) 0.500 % 0.0-0.9 [facility] Comment on above: IG% - Immature Granu locytes (promyelocytes, myelocytes and metamyelocytes) > 1% indicates that a LEFT SHIFT is Present. Automated immature granulocyte percentage 0.500 % 0.0-0.9 [facility] Influenza virus A and B and SARS-CoV-2 (COVID-19) and Respiratory syncytial virus RNAOrdered By: Beau Edmonds on 12-10-2024 SARS-CoV-2 (COVID-19) RNA ARMAND+probe Ql (Unsp spec) Influenzae A Abnormal [facility] Influenza virus A and B and SARS-CoV-2 (COVID-19) and Respiratory syncytial virus RNA Influenzae A Abnormal [facility] International normalized rat io (INR) calculationOrdered By: Beau Edmonds on 12-10-2024 INR Coag (Bld) [Relative time] 0.9 {INR} [facility] normalized ratio (INR) calculation 0.9 [facility] Ketones Test strip Ql (U)Ord ered By: Beau Edmonds on 12-10-2024 Ketones Ql (U) 15 mg/dl High Negative [facility] Urine ketones detection by test strip 15 mg/dl High Negative [facility] L501.4020on 12-10-2024 TROPONIN-I HS 34 pg/mL Normal 3.0-54.0 [facility] Comment on above: Order Comment: 'TROP ' Serial specimen #1, #2 or #3: 1 Result Comment: Plea se Note: New Test Units and Gender Specific Reference Ranges. For more information see Policy Stat Procedure [place] High Sensitivity Troponin (TNIH) and attachments. Performed By: #### L 500.4050, L300.3900, M200.1000, L100.0100, L300.4310, L501.4020, L503.6005 ####[facility] [address] [place], [place], [id number] Laboratory - Chemistry and C hemistry - challengeOrdered By: Beau Edmonds on 12-10-2024 AST [Catalytic activity/Vol] 50 U/L High 15-37 [facility] Lactic Acidon 12-10-2024 Lactate [Moles/Vol] 0.8 mmol/L Normal 0.4-1.9 [facility] Comment on above: Order Comment: Y Performed By: #### L 500.4050, L300.3900, M200.1000, L100.0100, L300.4310, L501.4020, L503.6005 ####[facility] [address] [place], [place], [id number] Lactic acid measurementOrder ed By: Beau Edmonds on 12-10-2024 Lactate [Moles/Vol] 0.8 mmol/L 0.4-2.0 [facility] Lactic acid measurement 0.8 mmol/L 0.4-2.0 [facility] Lymphocytes Auto (Unsp spec) [#/Vol]Ordered By: Beau Edmonds on 12-10-2024 Lymphocytes (Bld) [#/Vol] 0.63 10*3/uL Low 0.83-4.51 [facility] Absolute lymphocyte count 0.63 X10^3/uL Low 0.83-4.51 [facility] Lymphocytes/100 WBC Auto (Un sp spec)Ordered By: Beau Edmonds on 12-10-2024 Lymphocytes/100 WBC (Bld) 10.2 % Low -41 [facility] Automated lymphocyte count as percentage of total leukocytes 10.2 % Low 19-41 [facility] M100.678on 12-10-2024 M100.678 Pending SARS-CoV-2 (COVID 19) Negative INFLUENZA A A Positive A INFLUENZA B Negative RSV PCR Negative INFLUENZAE A Normal [facility] Comment on above: Performed By: #### M 100.678 ####[facility] [address] [place], [place], [id number] MCV (RBC) [Entitic vol]Order ed By: Beau Edmonds on 12-10-2024 MCV (mean corpuscular volume) determination 80.3 fL Low 81-99 [facility] MCV (mean corpuscular volume ) determinationOrdered By: Beau Edmonds on 12-10-2024 MCV (RBC) [Entitic vol] 80.3 fL Low 81-99 [facility] Mean corpuscular hemoglobin (MCH) determinationOrdered By: Beau Edmonds on 12-10-2024 MCH (RBC) [Entitic mass] 28.7 pg 27.0-32.0 [facility] Mean corpuscular hemoglobin (MCH) determination 28.7 pg 27.0-32.0 [facility] Mean corpuscular hemoglobin concentration (MCHC) determinationOrdered By: Beau Edmonds on 12-10-2024 MCHC (RBC) [Mass/Vol] 35.7 g/dL 32-36 [facility] Mean corpuscular hemoglobin concentration (MCHC) determination 35.7 g/dL 32-36 [facility] Mean platelet volume determi nationOrdered By: Beau Edmonds on 12-10-2024 Platelet mean volume (Bld) [Entitic vol] 9.1 fL 6.2-12.0 [facility] Mean platelet volume determination 9.1 fl 6.2-12.0 [facility] Microscopic analysis of urin e for red blood cells (RBC)Ordered By: Beau Edmonds on 12-10-2024 Urine RBC 0-5 SEEN /hpf 0-5 [facility] Microscopic analysis of urine for red blood cells (RBC) 0-5 SEEN /hpf 0-5 [facility] Monocyte percentageOrdered B y: Beau Edmonds on 12-10-2024 Monocytes/100 WBC (Bld) 9.4 % 0-10 [facility] Monocyte percentage 9.4 % 0-10 [facility] Mucus LM Ql (Urine sed)Order ed By: Beau Edmonds on 12-10-2024 Mucus Ql (Urine sed) 0 SEEN /hpf [facility] Neutrophil percentageOrdered By: Beau Edmonds on 12-10-2024 Neutrophils/100 WBC (Bld) 79.4 % High 47-70 [facility] Neutrophil percentage 79.4 % High 47-70 [facility] Nitrite Test strip Ql (U)Ord ered By: Beau Edmonds on 12-10-2024 Nitrite Ql (U) Negative Negative [facility] No Panel InformationOrdered By: Beau Edmonds on 12-10-2024 50 U/L High 15-37 [facility] Nucleated red blood cell per centageOrdered By: Beau Edmonds on 12-10-2024 Nucleated RBC/100 WBC (Bld) [Ratio] 0 % 0-5 [facility] Nucleated red blood cell percentage 0 % 0-5 [facility] Partial Thromboplast Timeon 12-10-2024 aPTT Coag (Bld) [Time] 30.9 s Normal 24.1-36.2 [facility] Comment on above: Performed By: #### L 500.4050, L300.3900, M200.1000, L100.0100, L300.4310, L501.4020, L503.6005 ####[facility] [address] [place], [place], [id number] Platelet countOrdered By: Vinny Edmonds on 12-10-2024 Platelets (Bld) [#/Vol] 271 10*3/uL 150-450 [facility] Platelet count 271 K/mm3 150-450 [facility] Potassium measurementOrdered By: Beau Edmonds on 12-10-2024 Potassium [Moles/Vol] 3.2 mmol/L Low 3.5-5.1 [facility] Potassium measurement 3.2 mmol/L Low 3.5-5.1 [facility] Protein Test strip Ql (U)Ord ered By: Beau Edmonds on 12-10-2024 Protein Ql (U) 30 mg/dl High Negative [facility] Urine protein assay by test strip, semi-quantitative 30 mg/dl High Negative [facility] Prothrombin Time w/INRon INR Coag (PPP) [Relative time] 0.9 {INR} Normal [facility] Comment on above: Performed By: #### L 500.4050, L300.3900, M200.1000, L100.0100, L300.4310, L501.4020, L503.6005 ####[facility] [address] [place], [address] PT Coag (PPP) [Time] 12.8 s Normal 11.7-14.9 [facility] Comment on above: Performed By: #### L 500.4050, L300.3900, M200.1000, L100.0100, L300.4310, L501.4020, L503.6005 ####[facility] [address] [place], [address] Prothrombin timeOrdered By: Beau Edmonds on 12-10-2024 PT Coag (PPP) [Time] 12.8 s 11.7-14.9 [facility] Prothrombin time 12.8 SECONDS 11.7-14.9 [facility] RBC Auto (Bld) [#/Vol]Ordere d By: Beau Edmonds on 12-10-2024 RBC (Bld) [#/Vol] 4.67 10*6/uL 4.2-5.4 [facility] Automated blood erythrocyte count 4.67 M/mm3 4.2-5.4 [facility] Serum anion gap measurementO rdered By: Beau Edmonds on 12-10-2024 Anion gap [Moles/Vol] 8 mmol/L 5-15 [facility] Serum anion gap measurement 8 5-15 [facility] Serum globulin measurementOr dered By: Beau Edmonds on 12-10-2024 Globulin (S) [Mass/Vol] 3.8 g/dL 2.2-4.2 [facility] Serum globulin measurement 3.8 g/dL 2.2-4.2 [facility] Serum or plasma alanine avelar otransferase (ALT) measurementOrdered By: Beau Edmonds on 12-10-2024 ALT [Catalytic activity/Vol] 26 U/L 13-56 [facility] Serum or plasma albumin bandar urement (mass/volume)Ordered By: Beau Edmonsd on 12-10-2024 Albumin [Mass/Vol] 3.3 g/dL 3.2-5.0 [facility] Serum or plasma alkaline kalli sphatase measurementOrdered By: Beau Edmonds on 12-10-2024 ALP [Catalytic activity/Vol] 93 U/L 45-117 [facility] Serum or plasma calcium bandar urement (mass/volume)Ordered By: Beau Edmonds on 12-10-2024 Calcium [Mass/Vol] 8.6 mg/dL 8.5-10.1 [facility] Serum or plasma creatinine m easurement (mass/volume)Ordered By: Beau Edmonds on 12-10-2024 Creatinine [Mass/Vol] 0.76 mg/dL 0.55-1.02 [facility] Comment on above: The validity of the calculated GFR & GFRAA in patients over 70 years has not been determined. Clinical correlation is essential. Serum or plasma urea nitroge n measurement (mass/volume)Ordered By: Beau Edmonds on 12-10-2024 Urea nitrogen [Mass/Vol] 5 mg/dL Low 7-18 [facility] Sodium levelOrdered By: Tim Edmonds on 12-10-2024 Sodium [Moles/Vol] 130 mmol/L Low 136-145 [facility] Sodium level 130 mmol/L Low 136-145 [facility] Specific gravity (U) [Rel de nsity]Ordered By: Beau Edmonds on 12-10-2024 Urine specific gravity measurement 1.020 1.002-1.030 [facility] Total proteinOrdered By: Casey Edmonds on 12-10-2024 Protein [Mass/Vol] 7.1 g/dL 6.4-8.2 [facility] Total protein 7.1 g/dL 6.4-8.2 [facility] Transitional cells LM Ql (Ur ine sed)Ordered By: Beau Edmonds on 12-10-2024 Urine Transitional Epithelial Cells 0-5 SEEN /hpf 0-5 [facility] Troponin IOrdered By: Beau Edmonds on 12-10-2024 Troponin I High Sensitivity 34 pg/mL 3.0-54.0 [facility] Comment on above: Please Note: New Courtney t Units and Gender Specific Reference Ranges. For more information see Policy Stat Procedure [place] High Sensitivity Troponin (TNIH) and attachments. Troponin I 34 pg/mL 3.0-54.0 [facility] Urea nitrogen [Mass/Vol]Orde red By: Beau Edmonds on 12-10-2024 Serum or plasma urea nitrogen measurement (mass/volume) 5 mg/dL Low 7-18 [facility] Urinalysis, Completeon 12-10 AMORPHOUS 1+ Normal [facility] Comment on above: Order Comment: SYLVAIN CTOR TO SPECIFY Performed By: #### M 100.2200, L400.0001 ####[facility] [address] [place], [address] BACTERIA 2+ /hpf Normal None Seen [facility] Comment on above: Order Comment: SYLVAIN CTOR TO SPECIFY Performed By: #### M 100.2200, L400.0001 ####[facility] [address] [place], [address] EPI,SQUAMOUS 0-5 SEEN Normal 5-10 [facility] Comment on above: Order Comment: SYLVAIN CTOR TO SPECIFY Performed By: #### M 100.2200, L400.0001 ####[facility] [address] [place], [address] EPI,TRANSITION 0-5 SEEN Normal 0-5 [facility] Comment on above: Order Comment: SYLVAIN CTOR TO SPECIFY Performed By: #### M 100.2200, L400.0001 ####[facility] [address] [place], [address] RBC 0-5 SEEN Normal 0-5 [facility] Comment on above: Order Comment: SYLVAIN CTOR TO SPECIFY Performed By: #### M 100.2200, L400.0001 ####[facility] [address] [place], [address] Mucus Ql (Urine sed) 0 SEEN Normal [facility] Comment on above: Order Comment: SYLVAIN CTOR TO SPECIFY Performed By: #### M 100.2200, L400.0001 ####[facility] [address] [place], [address] WBC 0 SEEN Normal 0-5 [facility] Comment on above: Order Comment: COLLE CTOR TO SPECIFY Performed By: #### M 100.2200, L400.0001 ####[facility] [address] [place], [place], [id number] Urine blood detectionOrdered By: Beau Edmonds on 12-10-2024 Urine Occult Blood 50 /ul High Negative oste r [facility] Urine blood detection 50 /ul High Negative Cardoza ster [facility] Urine clarityOrdered By: Casey Edmonds on 12-10-2024 Clarity (U) Sl. Cloudy Clear [facility] Urine color determinationOrd ered By: Beau Edmonds on 12-10-2024 Color (U) Yellow Yellow [facility] Urine cultureOrdered By: Casey Edmonds on 12-10-2024 Bacteria identified Cx Nom (U) Positive Abnormal [facility] Urine culture Positive Abnormal [facility] Urine glucose detectionOrder ed By: Beau Edmonds on 12-10-2024 Urine glucose detection Normal mg/dl Normal [facility] Urine leukocyte esterase det ection by dipstickOrdered By: Beau Edmonds on 12-10-2024 Leukocyte esterase Test strip Ql (U) Negative Negative [facility] Urine pHOrdered By: Beau gonzalez on 12-10-2024 pH (U) 6.0 [pH] 5.0 - 8.0 [facility] Urine sediment bacteria coun t by microscopy (number/high power field)Ordered By: Beau Edmonds on 12-10-2024 Bacteria LM.HPF (Urine sed) [#/Area] 2 /[HPF] None Seen [facility] Urine specific gravity measu rementOrdered By: Beau Edmonds on 12-10-2024 Specific gravity (U) [Rel density] 1.020 1.002-1.030 [facility] Urine total bilirubin detect ion by test stripOrdered By: Beau Edmonds on 12-10-2024 Urine total bilirubin detection by test strip Negative Negative [facility] Urobilinogen Ql (U)Ordered B y: Beau Edmonds on 12-10-2024 Urine Urobilinogen Normal mg/dl Normal [facility] White blood cell (WBC) count Ordered By: Beau Edmonds on 12-10-2024 WBC (Bld) [#/Vol] 6.2 10*3/uL 4.4-11.0 [facility] White blood cell (WBC) count 6.2 K/mm3 4.4-11.0 [facility] White blood cell countOrdere d By: Beau Edmonds on 12-10-2024 Urine WBC 0 SEEN /hpf 0-5 [facility] White blood cell count 0 SEEN /hpf [facility] aPTT Coag (PPP) [Time]Ordere d By: Beau Edmonds on 12-10-2024 aPTT Coag (Bld) [Time] 30.9 s 24.1-36.2 [facility] Activated partial thromboplastin time (aPTT) in platelet poor plasma by coagulation a 30.9 Seconds 24.1-36.2 [facility] pH (U)Ordered By: Beau vásquez on 12-10-2024 Urine pH 6.0 5.0 - 8.0 [facility] 02-KD-Tkztyeo DOrdered By: Davy Sharif on 11-24-2024 Vitamin D 25-Hydroxy 77.6 ng/mL [facility] Comment on above: Vitamin D 25(OH) Sta tus Range Deficiency <20 ng/mL (50nmol/L) Insufficiency 20 - 30 ng/mL (50 - 75 nmol/L) Sufficiency 30 - 100 ng/mL (75 - 250 nmol/L) Toxicity >100 ng/mL (>250 nmol/L) 89-XK-Iwckbre D 77.6 ng/mL [facility] ALP [Catalytic activity/Vol] Ordered By: Dannielle Thomas on 11-24-2024 Serum or plasma alkaline phosphatase measurement 90 U/L 45-117 [facility] ALT [Catalytic activity/Vol] Ordered By: Dannielle Thomas on 11-24-2024 Serum or plasma alanine aminotransferase (ALT) measurement 21 U/L 13-56 [facility] Absolute neutrophil countOrd ered By: Dannielle Thomas on 11-24-2024 Neutrophils (Bld) [#/Vol] 4.9 10*3/uL 2.0-7.7 [facility] Absolute neutrophil count 4.9 X10^3/uL 2.0-7.7 [facility] Albumin [Mass/Vol]Ordered By : Dannielle Thomas on 11-24-2024 Serum or plasma albumin measurement (mass/volume) 3.5 g/dL 3.2-5.0 [facility] Albumin to globulin ratioOrd ered By: Dannielle Thomas on 11-24-2024 Albumin/Globulin [Mass ratio] 0.9 {ratio} Normal 0.9-2.4 [facility] Comment on above: Performed By: #### L 501.5200, L500.4050, L101.9900, L501.6710, L100.0100 ####[facility] [address] [place], [place], [id number] Albumin to globulin ratio 0.9 RATIO 0.9-2.4 [facility] Basophil percentageOrdered B y: Dannielle Thomas on 11-24-2024 Basophils/100 WBC (Bld) 0.7 % 0-1 [facility] Basophil percentage 0.7 % 0-1 [facility] Bilirubin, totalOrdered By: Dannielle Thomas on 11-24-2024 Bilirubin [Mass/Vol] 0.50 mg/dL Normal 0.20-1.00 [facility] Comment on above: For patients on eltr ombopag therapy, use of Dimension [place] TBIL is not recommended. Result Comment: For patients on eltrombopag therapy, use of Dimension [place] TBIL is not recommended. Performed By: #### L 501.5200, L500.4050, L101.9900, L501.6710, L100.0100 ####[facility] [address] [place], [place], [id number] Bilirubin, total 0.50 mg/dL 0.20-1.00 [facility] Blood urea nitrogen (BUN)/cr eatinine ratioOrdered By: Dannielle Thomas on 11-24-2024 Urea nitrogen/Creatinine [Mass ratio] 5.0 mg/mg Low 10-20 [facility] Blood urea nitrogen (BUN)/creatinine ratio 5.0 RATIO Low 10-20 [facility] C-reactive protein measureme nt by high sensitivity methodOrdered By: Dannielle Thomas on 11-24-2024 C-Reactive Protein Extended Range 12.60 mg/L High 0.0-3.0 [facility] Comment on above: C-Reactive Protein ( CRP) provides useful information for thediagnosis, therapy and monitoring of inflammatory processesand associated diseases. For the evaluation of Relative Riskfor Cardiovascular Disease, a High Sensitivity CRP (HSCRP)should be ordered. C-reactive protein measurement by high sensitivity method 12.60 mg/L High 0.0-3.0 [facility] CBC W/Diff, Automatedon Absolute Lymph 2.72 X10 3/uL Normal 0.83-4.51 [facility] Comment on above: Performed By: #### L 501.5200, L500.4050, L101.9900, L501.6710, L100.0100 ####[facility] [address] [place], [address] Absolute Neut 4.9 X10 3/uL Normal 2.0-7.7 [facility] Comment on above: Performed By: #### L 501.5200, L500.4050, L101.9900, L501.6710, L100.0100 ####[facility] [address] [place], [address] Basophils/100 WBC (Bld) 0.7 % Normal 0-1 [facility] Comment on above: Performed By: #### L 501.5200, L500.4050, L101.9900, L501.6710, L100.0100 ####[facility] [address] [place], [address] Eosinophils/100 WBC (Bld) 5.4 % High 0-5 [facility] Comment on above: Performed By: #### L 501.5200, L500.4050, L101.9900, L501.6710, L100.0100 ####[facility] [address] [place], [address] Erythrocyte distribution width (RBC) [Ratio] 13.2 % Normal 11.6-14.6 [facility] Comment on above: Performed By: #### L 501.5200, L500.4050, L101.9900, L501.6710, L100.0100 ####[facility] [address] [place], [address] Hematocrit (Bld) [Volume fraction] 42.0 % Normal 37-47 [facility] Comment on above: Performed By: #### L 501.5200, L500.4050, L101.9900, L501.6710, L100.0100 ####[facility] [address] [place], [address] Hemoglobin (Bld) [Mass/Vol] 14.0 g/dL Normal 12.0-15.0 [facility] Comment on above: Performed By: #### L 501.5200, L500.4050, L101.9900, L501.6710, L100.0100 ####[facility] [address] [place], [address] IG% 0.300 Normal 0.0-0.9 [facility] Comment on above: Result Comment: IG% - Immature Granulocytes (promyelocytes, myelocytes andmetamyelocytes) > 1% indicates that a LEFT SHIFT is Present. Performed By: #### L 501.5200, L500.4050, L101.9900, L501.6710, L100.0100 ####[facility] [address] [place], [address] Lymphocytes/100 WBC (Bld) 31.0 % Normal 19-41 [facility] Comment on above: Performed By: #### L 501.5200, L500.4050, L101.9900, L501.6710, L100.0100 ####[facility] [address] [place], [address] MCH (RBC) [Entitic mass] 28.5 pg Normal 27.0-32.0 [facility] Comment on above: Performed By: #### L 501.5200, L500.4050, L101.9900, L501.6710, L100.0100 ####[facility] [address] [place], [address] MCHC (RBC) [Mass/Vol] 33.3 g/dL Normal 32-36 [facility] Comment on above: Performed By: #### L 501.5200, L500.4050, L101.9900, L501.6710, L100.0100 ####[facility] [address] [place], [address] MCV (RBC) [Entitic vol] 85.5 fL Normal 81-99 [facility] Comment on above: Performed By: #### L 501.5200, L500.4050, L101.9900, L501.6710, L100.0100 ####[facility] [address] [place], [address] Monocytes/100 WBC (Bld) 6.6 % Normal 0-10 [facility] Comment on above: Performed By: #### L 501.5200, L500.4050, L101.9900, L501.6710, L100.0100 ####[facility] [address] [place], [address] Neutrophils/100 WBC (Bld) 56.0 % Normal 47-70 [facility] Comment on above: Performed By: #### L 501.5200, L500.4050, L101.9900, L501.6710, L100.0100 ####[facility] [address] [place], [address] Nucleated RBC (Bld) [#/Vol] 0 10*3/uL Normal 0-5 [facility] Comment on above: Performed By: #### L 501.5200, L500.4050, L101.9900, L501.6710, L100.0100 ####[facility] [address] [place], [address] Platelet mean volume (Bld) [Entitic vol] 9.2 fL Normal 6.2-12.0 [facility] Comment on above: Performed By: #### L 501.5200, L500.4050, L101.9900, L501.6710, L100.0100 ####[facility] [address] [place], [address] Platelets (Bld) [#/Vol] 421 10*3/uL Normal 150-450 [facility] Comment on above: Performed By: #### L 501.5200, L500.4050, L101.9900, L501.6710, L100.0100 ####[facility] [address] [place], [address] RBC (Bld) [#/Vol] 4.91 10*6/uL Normal 4.2-5.4 [facility] Comment on above: Performed By: #### L 501.5200, L500.4050, L101.9900, L501.6710, L100.0100 ####[facility] [address] [place], [address] RDW SD 41.4 fl Normal 35.1-43.9 [facility] Comment on above: Performed By: #### L 501.5200, L500.4050, L101.9900, L501.6710, L100.0100 ####[facility] [address] [place], [address] WBC (Bld) [#/Vol] 8.8 10*3/uL Normal 4.4-11.0 [facility] Comment on above: Performed By: #### L 501.5200, L500.4050, L101.9900, L501.6710, L100.0100 ####[facility] [address] [place], [address] CRPon 11-24-2024 C-REACTIVE PROT 12.60 mg/L High 0.0-3.0 [facility] Comment on above: Result Comment: C-Re active Protein (CRP) provides useful information for thediagnosis, therapy and monitoring of inflammatory processesand associated diseases. For the evaluation of Relative Riskfor Cardiovascular Disease, a High Sensitivity CRP (HSCRP)should be ordered. Performed By: #### L 501.5200, L500.4050, L101.9900, L501.6710, L100.0100 ####[facility] [address] [place], [address] Calcium [Mass/Vol]Ordered By : Dannielle Thomas on 11-24-2024 Serum or plasma calcium measurement (mass/volume) 8.5 mg/dL 8.5-10.1 [facility] Carbon dioxide measurementOr dered By: Dannielle Thomas on 11-24-2024 CO2 [Moles/Vol] 24.0 mmol/L Normal 21.0-32.0 [facility] Comment on above: Performed By: #### L 501.5200, L500.4050, L101.9900, L501.6710, L100.0100 ####[facility] [address] [place], [address] Carbon dioxide measurement 24.0 mmol/L 21.0-32.0 [facility] Chloride measurementOrdered By: Dannielle Thomas on 11-24-2024 Chloride [Moles/Vol] 104 mmol/L Normal 98-107 [facility] Comment on above: Performed By: #### L 501.5200, L500.4050, L101.9900, L501.6710, L100.0100 ####[facility] [address] [place], [address] Chloride measurement 104 mmol/L 98-107 [facility] Comprehensive Metabolic Prof ilon 11-24-2024 ALK P 90 U/L Normal 45-117 [facility] Comment on above: Performed By: #### L 501.5200, L500.4050, L101.9900, L501.6710, L100.0100 ####[facility] [address] [place], [address] BUN/CRE 5.0 RATIO Low 10-20 [facility] Comment on above: Performed By: #### L 501.5200, L500.4050, L101.9900, L501.6710, L100.0100 ####[facility] [address] [place], [address] CA,Total 8.5 mg/dL Normal 8.5-10.1 [facility] Comment on above: Performed By: #### L 501.5200, L500.4050, L101.9900, L501.6710, L100.0100 ####[facility] [address] [place], [address] EST GFR - AA 72 mL/min Normal >60 [facility] Comment on above: Result Comment: Afri can [place] GFR Calc Performed By: #### L 501.5200, L500.4050, L101.9900, L501.6710, L100.0100 ####[facility] [address] [place], [address] GAP 8 Normal 5-15 [facility] Comment on above: Performed By: #### L 501.5200, L500.4050, L101.9900, L501.6710, L100.0100 ####[facility] [address] [place], [address] GFR/1.73 sq M.predicted among non-blacks MDRD (S/P/Bld) [Vol rate/Area] 59 mL/min/{1.73_m2} Low >60 [facility] Comment on above: Result Comment: Non- GFR Calc Performed By: #### L 501.5200, L500.4050, L101.9900, L501.6710, L100.0100 ####[facility] [address] [place], [address] T PROT 7.4 g/dL Normal 6.4-8.2 [facility] Comment on above: Performed By: #### L 501.5200, L500.4050, L101.9900, L501.6710, L100.0100 ####[facility] [address] [place], [address] Comprehensive Metabolic Prof ilOrdered By: Dannielle Thomas on 11-24-2024 AST [Catalytic activity/Vol] 18 U/L Normal 15-37 [facility] Comment on above: Performed By: #### L 501.5200, L500.4050, L101.9900, L501.6710, L100.0100 ####[facility] [address] [place], [address] Creatinine [Mass/Vol]Ordered By: Dannielle Thomas on 11-24-2024 Serum or plasma creatinine measurement (mass/volume) 1.00 mg/dL 0.55-1.02 [facility] Direct serum free thyroxine (FT4) measurementOrdered By: Elvis Sharif on 11-24-2024 Free T4 [Mass/Vol] 0.93 ng/dL 0.76-1.46 [facility] Direct serum free thyroxine (FT4) measurement 0.93 ng/dL 0.76-1.46 [facility] ESR (Bld) [Velocity]Ordered By: Dannielle Thomas on 11-24-2024 Erythrocyte sedimentation rate 21 mm/hr 0-30 [facility] Eosinophil percentageOrdered By: Dannielle Thomas on 11-24-2024 Eosinophils/100 WBC (Bld) 5.4 % High 0-5 [facility] Eosinophil percentage 5.4 % High 0-5 [facility] Erythrocyte Sed Rateon 11-24 SED RATE 21 mm/hr Normal 0-30 [facility] Comment on above: Performed By: #### L 501.5200, L500.4050, L101.9900, L501.6710, L100.0100 ####[facility] [address] [place], [address] Erythrocyte distribution wid th (RBC) [Ratio]Ordered By: Dannielle Thomas on 11-24-2024 Erythrocyte distribution width ratio 13.2 % 11.6-14.6 [facility] Erythrocyte distribution width standard deviation 41.4 fl 35.1-43.9 [facility] Erythrocyte distribution wid th ratioOrdered By: Dannielle Thomas on 11-24-2024 Erythrocyte distribution width (RBC) [Ratio] 13.2 % 11.6-14.6 [facility] Erythrocyte distribution wid th standard deviationOrdered By: Dannielle Thomas on 11-24-2024 Erythrocyte distribution width (RBC) [Entitic vol] 41.4 fL 35.1-43.9 [facility] Erythrocyte sedimentation ra teOrdered By: Dannielle Thomas on 11-24-2024 ESR (Bld) [Velocity] 21 mm/h 0-30 [facility] Estimated glomerular filtrat ion rate (GFR) AmericanOrdered By: Dannielle Thomas on 11-24-2024 Estimated GFR (MDRD) Amer 72 mL/min >60 [facility] Comment on above: GFR Calc Estimated glomerular filtration rate (GFR) 72 mL/min >60 [facility] Glomerular filtration rate ( GFR) estimationOrdered By: Dannielle Thomas on 11-24-2024 Estimated GFR (MDRD) Non-Af Amer 59 mL/min Low >60 [facility] Comment on above: Non- GFR Calc Glomerular filtration rate (GFR) estimation 59 mL/min Low >60 [facility] Glucose measurementOrdered B y: Dannielle Thomas on 11-24-2024 Glucose [Mass/Vol] 53 mg/dL Low 74-106 [facility] Comment on above: Performed By: #### L 501.5200, L500.4050, L101.9900, L501.6710, L100.0100 ####[facility] [address] [place], [place], [id number] Glucose measurement 53 mg/dL Low 74-106 [facility] Hematocrit Auto (Bld) [Volum e fraction]Ordered By: Dannielle Thomas on 11-24-2024 Hematocrit (Bld) [Volume fraction] 42.0 % 37-47 [facility] Automated blood hematocrit (percentage) 42.0 % 37-47 [facility] Hemoglobin measurementOrdere d By: Dannielle Thomas on 11-24-2024 Hemoglobin (Bld) [Mass/Vol] 14.0 g/dL 12.0-15.0 [facility] Hemoglobin measurement 14.0 g/dL 12.0-15.0 [facility] Immature granulocytes/100 WB C Auto (Bld)Ordered By: Dannielle Thomas on 11-24-2024 Immature granulocytes/100 WBC (Bld) 0.300 % 0.0-0.9 [facility] Comment on above: IG% - Immature Granu locytes (promyelocytes, myelocytes and metamyelocytes) > 1% indicates that a LEFT SHIFT is Present. Automated immature granulocyte percentage 0.300 % 0.0-0.9 [facility] Lymphocytes Auto (Unsp spec) [#/Vol]Ordered By: Dannielle Thomas on 11-24-2024 Lymphocytes (Bld) [#/Vol] 2.72 10*3/uL 0.83-4.51 [facility] Absolute lymphocyte count 2.72 X10^3/uL 0.83-4.51 [facility] Lymphocytes/100 WBC Auto (Un sp spec)Ordered By: Dannielle Thomas on 11-24-2024 Lymphocytes/100 WBC (Bld) 31.0 % [facility] Automated lymphocyte count as percentage of total leukocytes 31.0 % [facility] MCV (RBC) [Entitic vol]Order ed By: Dannielle Thomas on 11-24-2024 MCV (mean corpuscular volume) determination 85.5 fL 81-99 [facility] MCV (mean corpuscular volume ) determinationOrdered By: Dannielle Thomas on 11-24-2024 MCV (RBC) [Entitic vol] 85.5 fL 81-99 [facility] Magnesium measurementOrdered By: Dannielle Thomas on 11-24-2024 Magnesium [Mass/Vol] 1.9 mg/dL Normal 1.6-2.6 [facility] Comment on above: Performed By: #### L 501.5200, L500.4050, L101.9900, L501.6710, L100.0100 ####[facility] [address] [place], [address] Magnesium measurement 1.9 mg/dL 1.6-2.6 [facility] Mean corpuscular hemoglobin (MCH) determinationOrdered By: Dannielle Thomas on 11-24-2024 MCH (RBC) [Entitic mass] 28.5 pg 27.0-32.0 [facility] Mean corpuscular hemoglobin (MCH) determination 28.5 pg 27.0-32.0 [facility] Mean corpuscular hemoglobin concentration (MCHC) determinationOrdered By: Dannielle Thomas on 11-24-2024 MCHC (RBC) [Mass/Vol] 33.3 g/dL 32-36 [facility] Mean corpuscular hemoglobin concentration (MCHC) determination 33.3 g/dL -36 [facility] Mean platelet volume determi nationOrdered By: Dannielle Thomas on 11-24-2024 Platelet mean volume (Bld) [Entitic vol] 9.2 fL 6.2-12.0 [facility] Mean platelet volume determination 9.2 fl 6.2-12.0 [facility] Monocyte percentageOrdered B y: Dannielle Thomas on 11-24-2024 Monocytes/100 WBC (Bld) 6.6 % 0-10 [facility] Monocyte percentage 6.6 % 0-10 [facility] Neutrophil percentageOrdered By: Dannielle Thomas on 11-24-2024 Neutrophils/100 WBC (Bld) 56.0 % 47-70 [facility] Neutrophil percentage 56.0 % 47-70 [facility] No Panel InformationOrdered By: Dannielle Thomas on 11-24-2024 18 U/L 15-37 [facility] Nucleated red blood cell per centageOrdered By: Dannielle Thomas on 11-24-2024 Nucleated RBC/100 WBC (Bld) [Ratio] 0 % 0-5 [facility] Nucleated red blood cell percentage 0 % 0-5 [facility] Platelet countOrdered By: Fern Thomas on 11-24-2024 Platelets (Bld) [#/Vol] 421 10*3/uL 150-450 [facility] Platelet count 421 K/mm3 150-450 [facility] Potassium measurementOrdered By: Dannielle Thomas on 11-24-2024 Potassium [Moles/Vol] 4.0 mmol/L Normal 3.5-5.1 [facility] Comment on above: Performed By: #### L 501.5200, L500.4050, L101.9900, L501.6710, L100.0100 ####[facility] [address] [place], [place], [id number] Potassium measurement 4.0 mmol/L 3.5-5.1 [facility] RBC Auto (Bld) [#/Vol]Ordere d By: Dannielle Thomas on 11-24-2024 RBC (Bld) [#/Vol] 4.91 10*6/uL 4.2-5.4 [facility] Automated blood erythrocyte count 4.91 M/mm3 4.2-5.4 [facility] Serum anion gap measurementO rdered By: Dannielle Thomas on 11-24-2024 Anion gap [Moles/Vol] 8 mmol/L 5-15 [facility] Serum anion gap measurement 8 5-15 [facility] Serum globulin measurementOr dered By: Dannielle Thomas on 11-24-2024 Globulin (S) [Mass/Vol] 3.9 g/dL Normal 2.2-4.2 [facility] Comment on above: Performed By: #### L 501.5200, L500.4050, L101.9900, L501.6710, L100.0100 ####[facility] [address] [place], [place], [id number] Serum globulin measurement 3.9 g/dL 2.2-4.2 [facility] Serum or plasma alanine avelar otransferase (ALT) measurementOrdered By: Dannielle Thomas on 11-24-2024 ALT [Catalytic activity/Vol] 21 U/L Normal 13-56 [facility] Comment on above: Performed By: #### L 501.5200, L500.4050, L101.9900, L501.6710, L100.0100 ####[facility] [address] [place], [place], [id number] Serum or plasma albumin bandar urement (mass/volume)Ordered By: Dannielle Thomas on 11-24-2024 Albumin [Mass/Vol] 3.5 g/dL Normal 3.2-5.0 [facility] Comment on above: Performed By: #### L 501.5200, L500.4050, L101.9900, L501.6710, L100.0100 ####[facility] [address] [place], [place], [id number] Serum or plasma alkaline kalli sphatase measurementOrdered By: Dannielle Thomas on 11-24-2024 ALP [Catalytic activity/Vol] 90 U/L 45-117 [facility] Serum or plasma calcium bandar urement (mass/volume)Ordered By: Dannielle Thomas on 11-24-2024 Calcium [Mass/Vol] 8.5 mg/dL 8.5-10.1 [facility] Serum or plasma creatinine m easurement (mass/volume)Ordered By: Dannielle Thomas on 11-24-2024 Creatinine [Mass/Vol] 1.00 mg/dL Normal 0.55-1.02 [facility] Comment on above: The validity of the calculated GFR & GFRAA in patients over 70 years has not been determined. Clinical correlation is essential. Result Comment: The validity of the calculated GFR GFRAA in patients over70 years has not been determined. Clinical correlation isessential. Performed By: #### L 501.5200, L500.4050, L101.9900, L501.6710, L100.0100 ####[facility] [address] [place], [address] Serum or plasma urea nitroge n measurement (mass/volume)Ordered By: Dannielle Thomas on 11-24-2024 Urea nitrogen [Mass/Vol] 5 mg/dL Low 7-18 [facility] Comment on above: Performed By: #### L 501.5200, L500.4050, L101.9900, L501.6710, L100.0100 ####[facility] [address] [place], [address] Sodium levelOrdered By: Nicohl Thomas on 11-24-2024 Sodium [Moles/Vol] 136 mmol/L Normal 136-145 [facility] Comment on above: Performed By: #### L 501.5200, L500.4050, L101.9900, L501.6710, L100.0100 ####[facility] [address] [place], [address] Sodium level 136 mmol/L 136-145 [facility] T4 Free Directon 11-24-2024 T4 FREE DIRECT 0.93 ng/dL Normal 0.76-1.46 [facility] Comment on above: Performed By: #### L 501.9520, L506.1000, L506.0400 ####[facility] [address] [place], [address] TSH QnOrdered By: Elvis Sharif on 11-24-2024 Thyroid Stimulating Hormone (TSH) 2.160 uIU/mL 0.358-3.740 [facility] Serum or plasma thyroid stimulating hormone (TSH) measurement (units/volume) 2.160 uIU/mL 0.358-3.740 [facility] Thyroid Stim Hormone (TSH)on 11-24-2024 TSH 2.160 uIU/mL Normal 0.358-3.740 [facility] Comment on above: Performed By: #### L 501.9520, L506.1000, L506.0400 ####[facility] [address] [place], [place], [address] Total proteinOrdered By: Lo Thomas on 11-24-2024 Protein [Mass/Vol] 7.4 g/dL 6.4-8.2 [facility] Total protein 7.4 g/dL 6.4-8.2 [facility] Urea nitrogen [Mass/Vol]Orde red By: Dannielle Thomas on 11-24-2024 Serum or plasma urea nitrogen measurement (mass/volume) 5 mg/dL Low 7-18 [facility] Vitamin D,25 Hydroxyon 11-24 Vitamin D 25-OH 77.6 ng/mL Normal [facility] Comment on above: Result Comment: [place] min D 25(OH) Status Range Deficiency <20 ng/mL (50nmol/L) Insufficiency 20 - 30 ng/mL (50 - 75 nmol/L) Sufficiency 30 - 100 ng/mL (75 - 250 nmol/L) Toxicity >100 ng/mL (>250 nmol/L) Performed By: #### L 501.9520, L506.1000, L506.0400 ####[facility] [address] [place], [place], [address] White blood cell (WBC) count Ordered By: Dannielle Thomas on 11-24-2024 WBC (Bld) [#/Vol] 8.8 10*3/uL 4.4-11.0 [facility] White blood cell (WBC) count 8.8 K/mm3 4.4-11.0 [facility] Spine Lumbar (Routine)on Spine Lumbar (Routine) Normal [facility] Stress Reporton 10-17-2024 Stress Report Normal [facility] MR/BMS.IMBon 10-05-2024 MR/BMS.IMB Normal [facility] 12 Lead EKGon 09-27-2024 12 Lead EKG Normal [facility] Basic Metabolic Profile (BMP )on 09-27-2024 BUN/CRE 6.7 RATIO Low 10- [facility] Comment on above: Order Comment: 1Y Performed By: #### L 501.5425, L100.0100, L500.2500 ####[facility] [address] [place], [address] CA,Total 9.2 mg/dL Normal 8.5-10.1 [facility] Comment on above: Order Comment: 1Y Performed By: #### L 501.5425, L100.0100, L500.2500 ####[facility] [address] [place], [address] Chloride [Moles/Vol] 108 mmol/L High 98-107 [facility] Comment on above: Order Comment: 1Y Performed By: #### L 501.5425, L100.0100, L500.2500 ####[facility] [address] [place], [address] CO2 [Moles/Vol] 25.0 mmol/L Normal 21.0-32.0 [facility] Comment on above: Order Comment: 1Y Performed By: #### L 501.5425, L100.0100, L500.2500 ####[facility] [address] [place], [address] Creatinine [Mass/Vol] 0.89 mg/dL Normal 0.55-1.02 [facility] Comment on above: Order Comment: 1Y Result Comment: The validity of the calculated GFR GFRAA in patients over70 years has not been determined. Clinical correlation isessential. Performed By: #### L 501.5425, L100.0100, L500.2500 ####[facility] [address] [place], [address] ECRCL 63.95 ml/min Normal [facility] Comment on above: Order Comment: 1Y Performed By: #### L 501.5425, L100.0100, L500.2500 ####[facility] [address] [place], [address] EST GFR - AA 82 mL/min Normal >60 [facility] Comment on above: Order Comment: 1Y Result Comment: Afri can Cambodian GFR Calc Performed By: #### L 501.5425, L100.0100, L500.2500 ####[facility] [address] [place], [address] GAP 7 Normal 5-15 [facility] Comment on above: Order Comment: 1Y Performed By: #### L 501.5425, L100.0100, L500.2500 ####[facility] [address] [place], [address] GFR/1.73 sq M.predicted among non-blacks MDRD (S/P/Bld) [Vol rate/Area] 68 mL/min/{1.73_m2} Normal >60 [facility] Comment on above: Order Comment: 1Y Result Comment: Non- GFR Calc Performed By: #### L 501.5425, L100.0100, L500.2500 ####[facility] [address] [place], [address] Glucose [Mass/Vol] 99 mg/dL Normal 74-106 [facility] Comment on above: Order Comment: 1Y Performed By: #### L 501.5425, L100.0100, L500.2500 ####[facility] [address] [place], [address] Potassium [Moles/Vol] 3.6 mmol/L Normal 3.5-5.1 [facility] Comment on above: Order Comment: 1Y Performed By: #### L 501.5425, L100.0100, L500.2500 ####[facility] [address] [place], [address] Sodium [Moles/Vol] 140 mmol/L Normal 136-145 [facility] Comment on above: Order Comment: 1Y Performed By: #### L 501.5425, L100.0100, L500.2500 ####[facility] [address] [place], [address] Urea nitrogen [Mass/Vol] 6 mg/dL Low 7-18 [facility] Comment on above: Order Comment: 1Y Performed By: #### L 501.5425, L100.0100, L500.2500 ####[facility] [address] [place], [address] CBC W/Diff, Automatedon 11- 2-2023 Absolute Lymph 3.22 X10 3/uL Normal 0.83-4.51 [facility] Comment on above: Performed By: #### L 501.5425, L100.0100, L500.2500 ####[facility] [address] [place], [address] Absolute Neut 7.2 X10 3/uL Normal 2.0-7.7 [facility] Comment on above: Performed By: #### L 501.5425, L100.0100, L500.2500 ####[facility] [address] [place], [address] Basophils/100 WBC (Bld) 0.6 % Normal 0-1 [facility] Comment on above: Performed By: #### L 501.5425, L100.0100, L500.2500 ####[facility] [address] [place], [address] Eosinophils/100 WBC (Bld) 1.6 % Normal 0-5 [facility] Comment on above: Performed By: #### L 501.5425, L100.0100, L500.2500 ####[facility] [address] [place], [address] Erythrocyte distribution width (RBC) [Ratio] 13.1 % Normal 11.6-14.6 [facility] Comment on above: Performed By: #### L 501.5425, L100.0100, L500.2500 ####[facility] [address] [place], [address] Hematocrit (Bld) [Volume fraction] 42.8 % Normal 37-47 [facility] Comment on above: Performed By: #### L 501.5425, L100.0100, L500.2500 ####[facility] [address] [place], [address] Hemoglobin (Bld) [Mass/Vol] 14.6 g/dL Normal 12.0-15.0 [facility] Comment on above: Performed By: #### L 501.5425, L100.0100, L500.2500 ####[facility] [address] [place], [address] IG% 0.500 Normal 0.0-0.9 [facility] Comment on above: Result Comment: IG% - Immature Granulocytes (promyelocytes, myelocytes andmetamyelocytes) > 1% indicates that a LEFT SHIFT is Present. Performed By: #### L 501.5425, L100.0100, L500.2500 ####[facility] [address] [place], [address] Lymphocytes/100 WBC (Bld) 28.0 % Normal 19-41 [facility] Comment on above: Performed By: #### L 501.5425, L100.0100, L500.2500 ####[facility] [address] [place], [address] MCH (RBC) [Entitic mass] 28.8 pg Normal 27.0-32.0 [facility] Comment on above: Performed By: #### L 501.5425, L100.0100, L500.2500 ####[facility] [address] [place], [address] MCHC (RBC) [Mass/Vol] 34.1 g/dL Normal 32-36 [facility] Comment on above: Performed By: #### L 501.5425, L100.0100, L500.2500 ####[facility] [address] [place], [address] MCV (RBC) [Entitic vol] 84.4 fL Normal 81-99 [facility] Comment on above: Performed By: #### L 501.5425, L100.0100, L500.2500 ####[facility] [address] [place], [address] Monocytes/100 WBC (Bld) 7.1 % Normal 0-10 [facility] Comment on above: Performed By: #### L 501.5425, L100.0100, L500.2500 ####[facility] [address] [place], [address] Neutrophils/100 WBC (Bld) 62.2 % Normal 47-70 [facility] Comment on above: Performed By: #### L 501.5425, L100.0100, L500.2500 ####[facility] [address] [place], [address] Nucleated RBC (Bld) [#/Vol] 0 10*3/uL Normal 0-5 [facility] Comment on above: Performed By: #### L 501.5425, L100.0100, L500.2500 ####[facility] [address] [place], [address] Platelet mean volume (Bld) [Entitic vol] 8.9 fL Normal 6.2-12.0 [facility] Comment on above: Performed By: #### L 501.5425, L100.0100, L500.2500 ####[facility] [address] [place], [address] Platelets (Bld) [#/Vol] 377 10*3/uL Normal 150-450 [facility] Comment on above: Performed By: #### L 501.5425, L100.0100, L500.2500 ####[facility] [address] [place], [address] RBC (Bld) [#/Vol] 5.07 10*6/uL Normal 4.2-5.4 [facility] Comment on above: Performed By: #### L 501.5425, L100.0100, L500.2500 ####[facility] [address] [place], [address] RDW SD 39.8 fl Normal 35.1-43.9 [facility] Comment on above: Performed By: #### L 501.5425, L100.0100, L500.2500 ####[facility] [address] [place], [address] WBC (Bld) [#/Vol] 11.5 10*3/uL High 4.4-11.0 [facility] Comment on above: Performed By: #### L 501.5425, L100.0100, L500.2500 ####[facility] [address] [place], [address] Chest 1 View (Portable)on Chest 1 View (Portable) Normal [facility] D-Dimer Quantitative (DVT/PE )on 09-27-2024 D-DIMER QUANT 0.57 FEU/ug/m Invalid Interpretation Code 0.27-0.49 [facility] Comment on above: Result Comment: D-Di tobi ELEVATED (>0.49): Additional studies and clinicalassessments are indicated to conclude diagnosis of:Deep Vein Thrombosis (DVT) or Pulmonary Embolism (PE)RESULTS CALLED TO CONNOR 09/27/24 Boone Debbie Yanez.REPORT READ BACK BY .SAME Performed By: #### L 300.8000 ####[facility] [address] [place], [address] Emergency Department Summary on 09-27-2024 Emergency Department Summary Normal [facility] L501.4020on 09-27-2024 TROPONIN-I HS 8 pg/mL Normal 3.0-54.0 [facility] Comment on above: Result Comment: Plea se Note: New Test Units and Gender Specific Reference Ranges. For more information see Policy Stat Procedure [place] High Sensitivity Troponin (TNIH) and attachments. Performed By: #### L 501.4020 ####[facility] [address] [place], [address] L501.5425on 09-27-2024 TROPONIN-I HS 7 pg/mL Normal 3.0-54.0 [facility] Comment on above: Order Comment: 1Y Result Comment: Plelaila se Note: New Test Units and Gender Specific Reference Ranges. For more information see Policy Stat Procedure [place] High Sensitivity Troponin (TNIH) and attachments. Performed By: #### L 501.5425, L100.0100, L500.2500 ####[facility] [address] 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 Duration of symptoms 3 days. Associated symptoms itching and redness at site of Mounjaro injection. States last week she had a small redness. This week site is larger. Has not used any OTC medications recently. Did take Benadryl does seem to help a little. Overall feels okay. No shortness of breath difficulty breathing facial swelling neck swelling nausea vomiting or belly pain. Denies any fever body aches chills productive cough chest pain shortness of breath pleuritic pain hemoptysis nausea vomiting abdominal pain change in bowel or bladder habits. Past medical history prescription medication use and allergies reviewed. 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 Rayshawn Shrestha COLONOSCOPY FLX DX W/COLLJ SPEC WHEN PFRMD 08/10/2013 Colonoscopy COLONOSCOPY FLX DX W/COLLJ SPEC WHEN PFRMD 08/03/2018 Colonoscopy COLONOSCOPY SCREENING 10/22/2021 ESOPHAGOGASTRODUODENOSCO PY TRANSORAL DIAGNOSTIC 08/10/2013 EGD ESOPHAGOGASTRODUODENOSCO PY TRANSORAL DIAGNOSTIC 08/03/2018 EGD LAPAR SPINAL ARTHRODESIS [...] Lisinopril, Oxycodone, Oxycotin [Oxycodone], Oxytocin, Penicillin, Percocet [Oxycodone-Acetaminophen ], Polytrim [Polymyxin B Sulf-Trimethoprim], Symbicort [Budesonide-Formoterol], Tegretol [Carbamazepine], Vibramycin [Doxycycline Calcium], Vicodin [Hydrocodone-Acetaminoph en], and Adhesive Tape (Rosins) MEDICATIONS buPROPion HCL (WELLBUTRIN SR) 200 mg 12 hr tablet Take 1 tablet by mouth once daily. fluticasone (FLONASE) 50 mcg/actuation nasal spray Use 2 Sprays in each nostril once daily. Rinse mouth after use. QUEtiapine (SEROQUEL) 50 mg tablet Take 1 tablet by mouth daily at bedtime. escitalopram oxalate (LEXAPRO) 10 mg tablet Take [...] 2 DM - Uncontrolled E11.65 Insulin: No (more content not included)... Normal [facility] Laboratory - Hematology and Cell countson 03-22-2024 HbA1c (Bld) [Mass fraction] 6.4 % 4.2-6.3 [facility] Basophil percentageOrdered B y: Inez Rousseau on 03-18-2024 Chloride [Moles/Vol] 106 mmol/L 98-107 [facility] Glucose [Mass/Vol] 108 mg/dL 74-106 [facility] Comment on above: Fasting Glucose resu lt from 100 to 125 mg/dL suggests IMPAIRED HOMEOSTASIS per A.D.A. criteria. Hemoglobin (Bld) [Mass/Vol] 13.0 g/dL 12.0-15.0 [facility] Potassium [Moles/Vol] 4.3 mmol/L 3.5-5.1 [facility] Sodium [Moles/Vol] 138 mmol/L 136-145 [facility] WBC (Bld) [#/Vol] 9.8 10*3/uL 4.4-11.0 [facility] Determination of erythrocyte mean corpuscular volume (MCV)Ordered By: Inez Rousseau on 03-18-2024 MCV (RBC) [Entitic vol] 86.0 fL 81-99 [facility] Erythrocyte distribution wid th ratioOrdered By: Inez Rousseau on 03-18-2024 Erythrocyte distribution width (RBC) [Ratio] 13.2 % 11.6-14.6 [facility] Erythrocyte distribution wid th standard deviationOrdered By: Inez Rousseau on 03-18-2024 Erythrocyte distribution width (RBC) [Entitic vol] 40.7 fL 35.1-43.9 [facility] Hematocrit Auto (Bld) [Volum e fraction]Ordered By: Inez Rousseau on 03-18-2024 Hematocrit (Bld) [Volume fraction] 39.2 % 37-47 [facility] Laboratory - Chemistry and C hemistry - challengeOrdered By: Inez Rousseau on 03-18-2024 CO2 [Moles/Vol] 27.0 mmol/L 21.0-32.0 [facility] Urea nitrogen/Creatinine [Mass ratio] 8.5 mg/mg 10-20 [facility] Laboratory - Hematology and Cell countsOrdered By: Inez Rousseau on 03-18-2024 MCH (RBC) [Entitic mass] 28.5 pg 27.0-32.0 [facility] MCHC (RBC) [Mass/Vol] 33.2 g/dL 32-36 [facility] Platelet mean volume (Bld) [Entitic vol] 9.1 fL 6.2-12.0 [facility] Platelets (Bld) [#/Vol] 458 10*3/uL 150-450 [facility] No Panel InformationOrdered By: Inez Rousseau on 03-18-2024 Estimated GFR (MDRD) Amer 107 mL/min >60 [facility] Comment on above: GFR Calc Estimated GFR (MDRD) Non-Af Amer 88 mL/min >60 [facility] Comment on above: Non- GFR Calc RBC Auto (Bld) [#/Vol]Ordere d By: Inez Rousseau on 03-18-2024 RBC (Bld) [#/Vol] 4.56 10*6/uL 4.2-5.4 [facility] Serum or plasma calcium bandar urement (mass/volume)Ordered By: Inez Rousseau on 03-18-2024 Calcium [Mass/Vol] 9.6 mg/dL 8.5-10.1 [facility] Serum or plasma creatinine m easurement (mass/volume)Ordered By: Inez Rousseau on 03-18-2024 Creatinine [Mass/Vol] 0.71 mg/dL 0.55-1.02 [facility] Comment on above: The validity of the calculated GFR & GFRAA in patients over 70 years has not been determined. Clinical correlation is essential. Serum or plasma urea nitroge n measurement (mass/volume)Ordered By: Inez Rousseau on 03-18-2024 Urea nitrogen [Mass/Vol] 6 mg/dL 7-18 [facility] Thin prep Papanicolaou smear with manual screeningOrdered By: Inez Rousseau on 03-18-2024 Thin prep Papanicolaou smear with manual screening 5 5-15 [facility] Absolute lymphocyte countOrd ered By: Pranav Brice on 10-15-2023 Lymphocytes Auto (Unsp spec) [#/Vol] 3.33 10*3/uL 0.83-4.51 [facility] Atypical perinuclear antineu trophil cytoplasmic antibodies measurementOrdered By: Pranav Brice on 10-15-2023 Neutrophil cytoplasmic Ab.perinuclear.atypical IF (S) [Titer] <1:20 titer Neg:<1:20 [facility] Comment on above: The atypical pANCA p attern has been observed in asignificant percentage of patients with ulcerative colitis,primary sclerosing cholangitis and autoimmune hepatitis. Basophil percentageOrdered B y: Pranav Brice on 10-15-2023 Ammonia (P) [Moles/Vol] 19.0 umol/L -32 [facility] Basophil percentage < 0.2 AI 0.0-0.9 [facility] Basophils/100 WBC (Bld) 0.6 % 0-1 [facility] Bilirubin [Mass/Vol] 0.30 mg/dL 0.20-1.00 [facility] Comment on above: For patients on eltr ombopag therapy, use of Dimension [place] TBIL is not recommended. Chloride [Moles/Vol] 104 mmol/L 98-107 [facility] Cholesterol [Mass/Vol] 198 mg/dL <200 [facility] Comment on above: <200 mg/dL Desirable 200-240 mg/dL Borderline >240 mg/dL High Risk Eosinophils/100 WBC (Bld) 1.9 % 0-5 [facility] Glucose [Mass/Vol] 95 mg/dL 74-106 [facility] LDH [Catalytic activity/Vol] 124 U/L 84-246 [facility] Neutrophils (Bld) [#/Vol] 6.2 10*3/uL 2.0-7.7 [facility] Neutrophils/100 WBC (Bld) 59.1 % 47-70 [facility] Potassium [Moles/Vol] 3.9 mmol/L 3.5-5.1 [facility] Protein [Mass/Vol] 7.8 g/dL 6.4-8.2 [facility] Sodium [Moles/Vol] 138 mmol/L 136-145 [facility] Triglyceride [Mass/Vol] 279 mg/dL <199 [facility] Comment on above: The drugs N-Acetylcy steine and Metamizole may falsely depress this assay.Serum Triglycerides Reference Interval Normal <150 mg/dL Borderline high 150 - 199 mg/dL High 200 - 499 mg/dL Very High > or = 500 mg/dL WBC (Bld) [#/Vol] 10.4 10*3/uL 4.4-11.0 [facility] Blood erythrocytes count (nu mber/volume)Ordered By: Pranav Brice on 10-15-2023 RBC (Bld) [#/Vol] 5.16 10*6/uL 4.2-5.4 [facility] Blood hemoglobin measurement (mass/volume)Ordered By: Pranav Brice on 10-15-2023 Hemoglobin (Bld) [Mass/Vol] 14.4 g/dL 12.0-15.0 [facility] Blood lymphocytes/100 leukoc ytesOrdered By: Pranav Brice on 10-15-2023 Lymphocytes/100 WBC (Bld) 32.0 % 19-41 [facility] Blood monocytes/100 leukocyt esOrdered By: Pranav Brice on 10-15-2023 Monocytes/100 WBC (Bld) 6.0 % 0-10 [facility] Blood platelet mean volumeOr dered By: Pranav Brice on 10-15-2023 Platelet mean volume (Bld) [Entitic vol] 8.8 fL 6.2-12.0 [facility] Determination of erythrocyte mean corpuscular volume (MCV)Ordered By: Pranav Brice on 10-15-2023 MCV (RBC) [Entitic vol] 85.5 fL 81-99 [facility] Erythrocyte sedimentation ra teOrdered By: Pranav Brice on 10-15-2023 ESR (Bld) [Velocity] 16 mm/h 0-30 [facility] HIV 1 and HIV-2 antibody ass ay with HIV-1 p24 antigen detectionOrdered By: Pranav Brice on 10-15-2023 HIV 1+2 Ab+HIV1 p24 Ag IA Ql Non-Reactive Nonreactive [facility] Hematocrit Auto (Bld) [Volum e fraction]Ordered By: Pranav Brice on 10-15-2023 Hematocrit (Bld) [Volume fraction] 44.1 % 37-47 [facility] INR in Blood by Coagulation assayOrdered By: Pranav Brice on 10-15-2023 INR Coag (Bld) [Relative time] 0.9 {INR} [facility] Laboratory - Chemistry and C hemistry - challengeOrdered By: Pranav Brice on 10-15-2023 ALP [Catalytic activity/Vol] 96 U/L 45-117 [facility] ALT [Catalytic activity/Vol] 37 U/L 13-56 [facility] CO2 [Moles/Vol] 26.0 mmol/L 21.0-32.0 [facility] Globulin (S) [Mass/Vol] 3.9 g/dL 2.2-4.2 [facility] Transferrin [Mass/Vol] 409 mg/dL 192-364 [facility] Comment on above: Performed at: [facility] [employer] [address] [id number] Director: Alberto Nguyen PhD, Phone: [phone] at: [facility] [address] [id number] Director: Awilda Coe MD, Phone: [phone] Urea nitrogen/Creatinine [Mass ratio] 9.7 mg/mg 10-20 [facility] Laboratory - CoagulationOrde red By: Pranav Brice on 10-15-2023 PT Coag (PPP) [Time] 12.5 s 11.7-14.9 [facility] Laboratory - Hematology and Cell countsOrdered By: Pranav Brice on 10-15-2023 Erythrocyte distribution width (RBC) [Entitic vol] 42.0 fL 35.1-43.9 [facility] Erythrocyte distribution width (RBC) [Ratio] 13.5 % 11.6-14.6 [facility] Immature granulocytes/100 WBC (Bld) 0.400 % 0.0-0.9 [facility] Comment on above: IG% - Immature Granu locytes (promyelocytes, myelocytes and metamyelocytes) > 1% indicates that a LEFT SHIFT is Present. MCH (RBC) [Entitic mass] 27.9 pg 27.0-32.0 [facility] Nucleated RBC/100 WBC (Bld) [Ratio] 0 % 0-5 [facility] Auto (RBC) [Mass/Vol]Or dered By: Pranav Brice on 10-15-2023 MCHC (RBC) [Mass/Vol] 32.7 g/dL 32-36 [facility] No Panel InformationOrdered By: Pranav Brice on 10-15-2023 Centromere B Antibody <0.2 AI 0.0-0.9 [facility] Ceruloplasmin 31.9 mg/dL 19.0-39.0 [facility] Estimated GFR (MDRD) Amer 90 mL/min >60 [facility] Comment on above: GFR Calc Estimated GFR (MDRD) Non-Af Amer 74 mL/min >60 [facility] Comment on above: Non- GFR Calc Haptoglobin 237 mg/dL 37-355 [facility] Hepatitis A IgM Antibody Negative Negative [facility] Hepatitis B Core IgM Antibody Negative Negative [facility] Hepatitis C Antibody (EIA) Non-Reactive Non Reactive [facility] Hepatitis C Antibody Comment Comment . [facility] Comment on above: Not infected with HC V unless early or acute infection issuspected (which may be delayed in an immunocompromisedindividual), or other evidence exists to indicate HCVinfection. REVERSE LOGISTICS ANALYST Antibody <0.2 AI 0.0-0.9 [facility] Total Iron Binding Capacity 523 ug/dL 250-450 [facility] Platelets bldOrdered By: Kameron Brice on 10-15-2023 Platelets (Bld) [#/Vol] 481 10*3/uL 150-450 [facility] Serum DNA double strand anti body assay (units/volume)Ordered By: Pranav Brice on 10-15-2023 DNA double strand Ab Qn (S) [IU]/mL 0-9 [facility] Comment on above: Negative <5 Equivoca l 5 - 9 Positive >9 Serum Kamini-1 antibody assay (u nits/volume)Ordered By: Pranav Brice on 10-15-2023 Kamini-1 extractable nuclear Ab Qn (S) <0.2 AI 0.0-0.9 [facility] Serum Scl-70 extractable nuc lear antibody assay (units/volume)Ordered By: Pranav Brice on 10-15-2023 SCL-70 extractable nuclear Ab Qn (S) <0.2 AI 0.0-0.9 [facility] Serum Hunter extractable nucl ear antibody detectionOrdered By: Pranav Brice on 10-15-2023 Hunter extractable nuclear Ab Ql (S) <0.2 AI 0.0-0.9 [facility] Serum classic neutrophil cyt oplasmic antibody assay (units/volume)Ordered By: Pranav Brice on 10-15-2023 Neutrophil cytoplasmic Ab.classic Qn (S) <1:20 titer Neg:<1:20 [facility] Serum mitochondria antibody detectionOrdered By: Pranav Brice on 10-15-2023 Mitochondria Ab Ql (S) <20.0 Units 0.0-20.0 [facility] Comment on above: Negative 0.0 - 20.0 Equivocal 20.1 - 24.9 Positive >24.9Mitochondrial (M2) Antibodies are found in 90-96% ofpatients with primary biliary cirrhosis.Performed at: [facility] [id number] Director: Alberto Nguyen PhD, Phone: [phone] Serum or plasma C reactive p rotein measurement (mass/volume)Ordered By: Pranav Brice on 10-15-2023 CRP [Mass/Vol] 14.90 mg/L 0.0-3.0 [facility] Comment on above: C-Reactive Protein ( CRP) provides useful information for thediagnosis, therapy and monitoring of inflammatory processesand associated diseases. For the evaluation of Relative Riskfor Cardiovascular Disease, a High Sensitivity CRP (HSCRP)should be ordered. Serum or plasma actin IgG an tibody assay (units/volume)Ordered By: Pranav Brice on 10-15-2023 Actin IgG Qn 10 Units 0-19 [facility] Comment on above: Negative 0 - 19 Weak positive 20 - 30 Moderate to strong positive >30 Actin Antibodies are found in 52-85% of patients with autoimmune hepatitis or chronic active hepatitis and in 22% of patients with primary biliary cirrhosis. Serum or plasma albumin bandar urement (mass/volume)Ordered By: Pranav Brice on 10-15-2023 Albumin [Mass/Vol] 3.9 g/dL 3.2-5.0 [facility] Serum or plasma albumin/glob ulin mass ratioOrdered By: Pranav Brice on 10-15-2023 Albumin/Globulin [Mass ratio] 1.0 {ratio} 0.9-2.4 [facility] Serum or plasma qhstc-2-eohl protein tumor marker measurement (units/volume)Ordered By: Pranav Brice on 10-15-2023 AFP.tumor marker Qn 8.0 ng/mL 0.0-9.2 [facility] Comment on above: [employer] El ectrochemiluminescence Immunoassay(ECLIA)Values obtained with different assay methods or kits cannotbe used interchangeably. Results cannot be interpreted asabsolute evidence of the presence or absence of malignantdisease.This test is not interpretable in females. Serum or plasma angiotensin converting enzyme measurement (enzymatic activity/volume)Ordered By: Pranav Brice on 10-15-2023 Angiotensin converting enzyme [Catalytic activity/Vol] 85 U/L 14-82 [facility] Serum or plasma calcium bandar urement (mass/volume)Ordered By: Pranav Brice on 10-15-2023 Calcium [Mass/Vol] 9.1 mg/dL 8.5-10.1 [facility] Serum or plasma cholesterol in HDL measurement (mass/volume)Ordered By: Pranav Brice on 10-15-2023 Cholesterol in HDL [Mass/Vol] 61 mg/dL >40 [facility] Comment on above: The drugs N-Acetylcy steine and Metamizole may falsely depress this assay. Reference Range HDL <40 mg/dL Low HDL Cholesterol HDL >or= 60 mg/dL High HDL Cholesterol Serum or plasma cholesterol in VLDL measurement (mass/volume)Ordered By: Pranav Brice on 10-15-2023 Cholesterol in VLDL [Mass/Vol] 56 mg/dL 5-40 [facility] Serum or plasma creatinine m easurement (mass/volume)Ordered By: Pranav Brice on 10-15-2023 Creatinine [Mass/Vol] 0.83 mg/dL 0.55-1.02 [facility] Comment on above: The validity of the calculated GFR & GFRAA in patients over 70 years has not been determined. Clinical correlation is essential. Serum or plasma ferritin aida surement (mass/volume)Ordered By: Pranav Brice on 10-15-2023 Ferritin [Mass/Vol] 44 ng/mL 8-252 [facility] Serum or plasma hepatitis B virus surface antigen detection by immunoassayOrdered By: Pranav Brice on 10-15-2023 HBV surface Ag IA Ql Negative Negative [facility] Serum or plasma low density lipoprotein (LDL) cholesterol measurement (mass/volume)Ordered By: Pranav Brice on 10-15-2023 Cholesterol in LDL [Mass/Vol] 81 mg/dL 0-130 [facility] Serum or plasma urea nitroge n measurement (mass/volume)Ordered By: Pranav Brice on 10-15-2023 Urea nitrogen [Mass/Vol] 8 mg/dL 7-18 [facility] Serum perinuclear neutrophil cytoplasmic antibody titer by immunofluorescenceOrdered By: Pranav Brice on 10-15-2023 Neutrophil cytoplasmic Ab.perinuclear IF (S) [Titer] <1:20 titer Neg:<1:20 [facility] Comment on above: The presence of posi tive fluorescence exhibiting P-ANCA orC-ANCA patterns alone is not specific for the diagnosis ofWegener's Granulomatosis (WG) or microscopic polyangiitis.Decisions about treatment should not be based solely onANCA IFA results. The [employer] Consensusrecommends follow up testing of positive sera with both VA-3 and MPO-ANCA enzyme immunoassays. As many as 5% serumsamples are positive only by EIA. Ref. AM J Clin [id number];111:507-513. Thin prep Papanicolaou smear with manual screeningOrdered By: Pranav Brice on 10-15-2023 Thin prep Papanicolaou smear with manual screening 32 U/L 15-37 [facility] Thin prep Papanicolaou smear with manual screening 8 5-15 [facility] Thin prep Papanicolaou smear with manual screening 132 ug/dL 80-158 [facility] Comment on above: Detection Limit = 5 Whole blood hemoglobin A1c/t otal hemoglobin ratio (mass fraction)Ordered By: Pranav Brice on 10-15-2023 HbA1c (Bld) [Mass fraction] 6.5 % 3.8-5.6 [facility] Comment on above: Normal < 5.7 % Predi abetic 5.7 - 6.4 % Diabetic >or= 6.5 % Please note range changes. Absolute lymphocyte countOrd ered By: Aida Jeffery on 06-19-2023 Lymphocytes Auto (Unsp spec) [#/Vol] 3.01 10*3/uL 0.83-4.51 [facility] Basophil percentageOrdered B y: Aida Jeffery on 06-19-2023 Basophil percentage 0 SEEN /hpf 0-5 [facility] Basophils/100 WBC (Bld) 0.7 % 0-1 [facility] Chloride [Moles/Vol] 101 mmol/L 98-107 [facility] Eosinophils/100 WBC (Bld) 2.1 % 0-5 [facility] Glucose [Mass/Vol] 288 mg/dL 74-106 [facility] Comment on above: Glucose result great er than or equal to 200 mg/dLsuggests DIABETES MELLITUS per A.D.A. criteria. Neutrophils (Bld) [#/Vol] 5.2 10*3/uL 2.0-7.7 [facility] Neutrophils/100 WBC (Bld) 57.6 % 47-70 [facility] Potassium [Moles/Vol] 3.3 mmol/L 3.5-5.1 [facility] Sodium [Moles/Vol] 135 mmol/L 136-145 [facility] WBC (Bld) [#/Vol] 9.1 10*3/uL 4.4-11.0 [facility] Bilirubin Test strip Ql (U)O rdered By: Aida Jeffery on 06-19-2023 Bilirubin Ql (U) Negative Negative [facility] Blood erythrocytes count (nu mber/volume)Ordered By: Aida Jeffery on 06-19-2023 RBC (Bld) [#/Vol] 4.81 10*6/uL 4.2-5.4 [facility] Blood hemoglobin measurement (mass/volume)Ordered By: Aida Jeffery on 06-19-2023 Hemoglobin (Bld) [Mass/Vol] 13.8 g/dL 12.0-15.0 [facility] Blood lymphocytes/100 leukoc ytesOrdered By: Aida Jeffery on 06-19-2023 Lymphocytes/100 WBC (Bld) 33.1 % 19-41 [facility] Blood monocytes/100 leukocyt esOrdered By: Aida Jeffery on 06-19-2023 Monocytes/100 WBC (Bld) 6.2 % 0-10 [facility] Blood platelet mean volumeOr dered By: Aida Jeffery on 06-19-2023 Platelet mean volume (Bld) [Entitic vol] 9.4 fL 6.2-12.0 [facility] Determination of erythrocyte mean corpuscular volume (MCV)Ordered By: Aida Jeffery on 06-19-2023 MCV (RBC) [Entitic vol] 83.0 fL 81-99 [facility] Glucose Glucometer (dC) [M ass/Vol]Ordered By: Aida Jeffery on 06-19-2023 Glucose [Mass/Vol] 242 mg/dL 74-106 [facility] Comment on above: MANAGEMENT OF PATIEN T CARE PER NURSING PROTOCOL Hematocrit Auto (Bld) [Volum e fraction]Ordered By: Aida Jeffery on 06-19-2023 Hematocrit (Bld) [Volume fraction] 39.9 % 37-47 [facility] Ketones Test strip Ql (U)Ord ered By: Aida Jeffery on 06-19-2023 Ketones Ql (U) 15 mg/dl Negative [facility] Laboratory - Chemistry and C hemistry - challengeOrdered By: Aida Jeffery on 06-19-2023 CO2 [Moles/Vol] 25.0 mmol/L 21.0-32.0 [facility] Urea nitrogen/Creatinine [Mass ratio] 11.2 mg/mg 10-20 [facility] Laboratory - Hematology and Cell countsOrdered By: Aida Jeffery on 06-19-2023 Erythrocyte distribution width (RBC) [Entitic vol] 36.5 fL 35.1-43.9 [facility] Erythrocyte distribution width (RBC) [Ratio] 12.0 % 11.6-14.6 [facility] Immature granulocytes/100 WBC (Bld) 0.300 % 0.0-0.9 [facility] Comment on above: IG% - Immature Granu locytes (promyelocytes, myelocytes and metamyelocytes) > 1% indicates that a LEFT SHIFT is Present. MCH (RBC) [Entitic mass] 28.7 pg 27.0-32.0 [facility] Nucleated RBC/100 WBC (Bld) [Ratio] 0 % 0-5 [facility] MCHC Auto (RBC) [Mass/Vol]Or dered By: Aida Jeffery on 06-19-2023 MCHC (RBC) [Mass/Vol] 34.6 g/dL 32-36 [facility] Mucus LM Ql (Urine sed)Order ed By: Aida Jeffery on 06-19-2023 Mucus Ql (Urine sed) 0 SEEN /hpf [facility] Nitrite Test strip Ql (U)Ord ered By: Aida Jeffery on 06-19-2023 Nitrite Ql (U) Negative Negative [facility] No Panel InformationOrdered By: Aida Jeffery on 06-19-2023 Estimated Creatinine Clearance Calc 64.07 ml/min [facility] Estimated GFR (MDRD) Amer 106 mL/min >60 [facility] Comment on above: GFR Calc Estimated GFR (MDRD) Non-Af Amer 88 mL/min >60 [facility] Comment on above: Non- GFR Calc Platelets bldOrdered By: Rosalie Jeffery on 06-19-2023 Platelets (Bld) [#/Vol] 362 10*3/uL 150-450 [facility] Protein Test strip Ql (U)Ord ered By: Aida Jeffery on 06-19-2023 Protein Ql (U) Negative Negative [facility] Serum or plasma acetone bandar urement (mass/volume)Ordered By: Aida Jeffery on 06-19-2023 Acetone [Mass/Vol] Negative NEG [facility] Serum or plasma calcium bandar urement (mass/volume)Ordered By: Aida Jeffery on 06-19-2023 Calcium [Mass/Vol] 9.3 mg/dL 8.5-10.1 [facility] Serum or plasma creatinine m easurement (mass/volume)Ordered By: Aida Jeffery on 06-19-2023 Creatinine [Mass/Vol] 0.72 mg/dL 0.55-1.02 [facility] Comment on above: The validity of the calculated GFR & GFRAA in patients over 70 years has not been determined. Clinical correlation is essential. Serum or plasma urea nitroge n measurement (mass/volume)Ordered By: Aida Jeffery on 06-19-2023 Urea nitrogen [Mass/Vol] 8 mg/dL 7-18 [facility] Squamous epithelial cells de tection in urine sediment by light microscopyOrdered By: Aida Jeffery on 06-19-2023 Epithelial cells.squamous LM Ql (Urine sed) 0 SEEN /hpf 5-10 [facility] Thin prep Papanicolaou smear with manual screeningOrdered By: Aida Jeffery on 06-19-2023 Thin prep Papanicolaou smear with manual screening 9 5-15 [facility] Urine blood detectionOrdered By: Aida Jeffery on 06-19-2023 RBC Ql (U) Negative Negative [facility] RBC Ql (U) 0 SEEN /hpf 0-5 [facility] Urine clarityOrdered By: Rosalie Jeffery on 06-19-2023 Clarity (U) Clear Clear [facility] Urine color determinationOrd ered By: Aida Jeffery on 06-19-2023 Color (U) Yellow Yellow [facility] Urine glucose detectionOrder ed By: Aida Jeffery on 06-19-2023 Glucose Ql (U) 1000 mg/dl Normal [facility] Urine leukocyte esterase det ection by dipstickOrdered By: Aida Jeffery on 06-19-2023 Leukocyte esterase Test strip Ql (U) Negative Negative [facility] Urine pHOrdered By: Aida Jeffery on 06-19-2023 pH (U) 6.0 [pH] 5.0 - 8.0 [facility] Urine sediment bacteria coun t by microscopy (number/high power field)Ordered By: Aida Jeffery on 06-19-2023 Bacteria LM.HPF (Urine sed) [#/Area] 0 /[HPF] None Seen [facility] Urine sediment yeast count b y microscopy (number/high powered field)Ordered By: Aida Jeffery on 06-19-2023 Yeast LM.HPF (Urine sed) [#/Area] RARE /hpf None Seen [facility] Urine specific gravity measu rementOrdered By: Aida Jeffery on 06-19-2023 Specific gravity (U) [Rel density] 1.015 1.002-1.030 [facility] Urobilinogen Auto test strip Ql (U)Ordered By: Aida Jeffery on 06-19-2023 Urobilinogen Ql (U) Normal mg/dl Normal [facility] Whole blood hemoglobin A1c/t otal hemoglobin ratio (mass fraction)Ordered By: Aida Jeffery on 06-19-2023 HbA1c (Bld) [Mass fraction] 12.4 % 3.8-5.6 [facility] Comment on above: Normal < 5.7 % Predi abetic 5.7 - 6.4 % Diabetic >or= 6.5 % Please note range changes. Basophil percentageOrdered B y: Wendy Hinton on 05-28-2023 Bilirubin [Mass/Vol] 0.60 mg/dL 0.20-1.00 [facility] Comment on above: For patients on eltr ombopag therapy, use of Dimension [place] TBIL is not recommended. Cholesterol [Mass/Vol] 246 mg/dL <200 [facility] Comment on above: <200 mg/dL Desirable 200-240 mg/dL Borderline >240 mg/dL High Risk Protein [Mass/Vol] 7.6 g/dL 6.4-8.2 [facility] Triglyceride [Mass/Vol] 443 mg/dL <199 [facility] Comment on above: The drugs N-Acetylcy steine and Metamizole may falsely depress this assay. TRIGLYCERIDE IS GREATER THAN 400 mg/dL. LDL RESULT IS INVALID AND WILL NOT BE REPORTED.Serum Triglycerides Reference Interval Normal <150 mg/dL Borderline high 150 - 199 mg/dL High 200 - 499 mg/dL Very High > or = 500 mg/dL Basophil percentageOrdered B y: Elizabeth Merrill on 05-28-2023 Chloride [Moles/Vol] 97 mmol/L 98-107 [facility] Glucose [Mass/Vol] 356 mg/dL 74-106 [facility] Comment on above: Glucose result great er than or equal to 200 mg/dLsuggests DIABETES MELLITUS per A.D.A. criteria. Potassium [Moles/Vol] 3.8 mmol/L 3.5-5.1 [facility] Sodium [Moles/Vol] 131 mmol/L 136-145 [facility] Direct bilirubinOrdered By: Wendy Hinton on 05-28-2023 Bilirubin.direct [Mass/Vol] 0.11 mg/dL 0.00-0.30 [facility] Laboratory - Chemistry and C hemistry - challengeOrdered By: Wendy Hinton on 05-28-2023 ALP [Catalytic activity/Vol] 126 U/L 45-117 [facility] ALT [Catalytic activity/Vol] 40 U/L 13-56 [facility] Globulin (S) [Mass/Vol] 4.0 g/dL 2.2-4.2 [facility] Laboratory - Chemistry and C hemistry - challengeOrdered By: Elizabeth Merrill on 05-28-2023 CO2 [Moles/Vol] 25.0 mmol/L 21.0-32.0 [facility] Urea nitrogen/Creatinine [Mass ratio] 9.7 mg/mg 10-20 [facility] No Panel InformationOrdered By: Elizabeth Merrill on 05-28-2023 Estimated GFR (MDRD) Amer 79 mL/min >60 [facility] Comment on above: GFR Calc Estimated GFR (MDRD) Non-Af Amer 65 mL/min >60 [facility] Comment on above: Non- GFR Calc Serum or plasma albumin bandar urement (mass/volume)Ordered By: Wendy Hinton on 05-28-2023 Albumin [Mass/Vol] 3.6 g/dL 3.2-5.0 [facility] Serum or plasma calcium bandar urement (mass/volume)Ordered By: Elizabeth Merrill on 05-28-2023 Calcium [Mass/Vol] 9.5 mg/dL 8.5-10.1 [facility] Serum or plasma cholesterol in HDL measurement (mass/volume)Ordered By: Wendy Hinton on 05-28-2023 Cholesterol in HDL [Mass/Vol] 50 mg/dL >40 [facility] Comment on above: The drugs N-Acetylcy steine and Metamizole may falsely depress this assay. Reference Range HDL <40 mg/dL Low HDL Cholesterol HDL >or= 60 mg/dL High HDL Cholesterol Serum or plasma cholesterol in VLDL measurement (mass/volume)Ordered By: Wendy Hinton on 05-28-2023 Cholesterol in VLDL [Mass/Vol] [facility] Comment on above: Test not performed Serum or plasma creatinine m easurement (mass/volume)Ordered By: Elizabeth Merrill on 05-28-2023 Creatinine [Mass/Vol] 0.92 mg/dL 0.55-1.02 [facility] Comment on above: The validity of the calculated GFR & GFRAA in patients over 70 years has not been determined. Clinical correlation is essential. Serum or plasma low density lipoprotein (LDL) cholesterol measurement (mass/volume)Ordered By: Wendy Hinton on 05-28-2023 Cholesterol in LDL [Mass/Vol] [facility] Comment on above: Test not performed Serum or plasma urea nitroge n measurement (mass/volume)Ordered By: Elizabeth Merrill on 05-28-2023 Urea nitrogen [Mass/Vol] 9 mg/dL 7-18 [facility] Thin prep Papanicolaou smear with manual screeningOrdered By: Wendy Hinton on 05-28-2023 Thin prep Papanicolaou smear with manual screening 42 U/L 15-37 [facility] Thin prep Papanicolaou smear with manual screeningOrdered By: Elizabeth Merrill on 05-28-2023 Thin prep Papanicolaou smear with manual screening 9 5-15 [facility] Whole blood hemoglobin A1c/t otal hemoglobin ratio (mass fraction)Ordered By: Elizabeth Merrill on 05-28-2023 HbA1c (Bld) [Mass fraction] 10.7 % 3.8-5.6 [facility] Comment on above: Normal < 5.7 % Predi abetic 5.7 - 6.4 % Diabetic >or= 6.5 % Please note range changes. Absolute lymphocyte countOrd ered By: Wendy Hinton on 05-25-2023 Lymphocytes Auto (Unsp spec) [#/Vol] 2.13 10*3/uL 0.83-4.51 [facility] Basophil percentageOrdered B y: Wendy Hinton on 05-25-2023 Basophils/100 WBC (Bld) 0.5 % 0-1 [facility] Chloride [Moles/Vol] 98 mmol/L 98-107 [facility] Eosinophils/100 WBC (Bld) 1.7 % 0-5 [facility] Glucose [Mass/Vol] 429 mg/dL 74-106 [facility] Comment on above: Glucose result great er than or equal to 200 mg/dLsuggests DIABETES MELLITUS per A.D.A. criteria. Neutrophils (Bld) [#/Vol] 4.9 10*3/uL 2.0-7.7 [facility] Neutrophils/100 WBC (Bld) 63.2 % 47-70 [facility] Potassium [Moles/Vol] 3.9 mmol/L 3.5-5.1 [facility] Sodium [Moles/Vol] 131 mmol/L 136-145 [facility] WBC (Bld) [#/Vol] 7.8 10*3/uL 4.4-11.0 [facility] Blood erythrocytes count (nu mber/volume)Ordered By: Wendy Hinton on 05-25-2023 RBC (Bld) [#/Vol] 5.04 10*6/uL 4.2-5.4 [facility] Blood hemoglobin measurement (mass/volume)Ordered By: Wendy Hinton on 05-25-2023 Hemoglobin (Bld) [Mass/Vol] 14.3 g/dL 12.0-15.0 [facility] Blood lymphocytes/100 leukoc ytesOrdered By: Wendy Hinton on 05-25-2023 Lymphocytes/100 WBC (Bld) 27.4 % 19-41 [facility] Blood monocytes/100 leukocyt esOrdered By: Wendy Hinton on 05-25-2023 Monocytes/100 WBC (Bld) 6.8 % 0-10 [facility] Blood platelet mean volumeOr dered By: Wendy Hinton on 05-25-2023 Platelet mean volume (Bld) [Entitic vol] 9.3 fL 6.2-12.0 [facility] Determination of erythrocyte mean corpuscular volume (MCV)Ordered By: Wendy Hinton on 05-25-2023 MCV (RBC) [Entitic vol] 84.5 fL 81-99 [facility] Hematocrit Auto (Bld) [Volum e fraction]Ordered By: Wendy Hinton on 05-25-2023 Hematocrit (Bld) [Volume fraction] 42.6 % 37-47 [facility] INR in Blood by Coagulation assayOrdered By: Wendy Hinton on 05-25-2023 INR Coag (Bld) [Relative time] 0.9 {INR} [facility] Laboratory - Chemistry and C hemistry - challengeOrdered By: Wendy Hinton on 05-25-2023 CO2 [Moles/Vol] 24.0 mmol/L 21.0-32.0 [facility] Urea nitrogen/Creatinine [Mass ratio] 8.5 mg/mg 10-20 [facility] Laboratory - CoagulationOrde red By: Wendy Hinton on 05-25-2023 aPTT Coag (Bld) [Time] 24.3 s 24.1-36.2 [facility] PT Coag (PPP) [Time] 12.4 s 11.7-14.9 [facility] Laboratory - Hematology and Cell countsOrdered By: Wendy Hinton on 05-25-2023 Erythrocyte distribution width (RBC) [Entitic vol] 36.7 fL 35.1-43.9 [facility] Erythrocyte distribution width (RBC) [Ratio] 12.1 % 11.6-14.6 [facility] Immature granulocytes/100 WBC (Bld) 0.400 % 0.0-0.9 [facility] Comment on above: IG% - Immature Granu locytes (promyelocytes, myelocytes and metamyelocytes) > 1% indicates that a LEFT SHIFT is Present. MCH (RBC) [Entitic mass] 28.4 pg 27.0-32.0 [facility] Nucleated RBC/100 WBC (Bld) [Ratio] 0 % 0-5 [facility] MCHC Auto (RBC) [Mass/Vol]Or dered By: Wendy Hinton on 05-25-2023 MCHC (RBC) [Mass/Vol] 33.6 g/dL 32-36 [facility] No Panel InformationOrdered By: Wendy Hinton on 05-25-2023 Estimated GFR (MDRD) Amer 67 mL/min >60 [facility] Comment on above: GFR Calc Estimated GFR (MDRD) Non-Af Amer 56 mL/min >60 [facility] Comment on above: Non- GFR Calc Platelets bldOrdered By: Santana Hinton on 05-25-2023 Platelets (Bld) [#/Vol] 342 10*3/uL 150-450 [facility] Serum or plasma calcium bandar urement (mass/volume)Ordered By: Wendy Hinton on 05-25-2023 Calcium [Mass/Vol] 9.6 mg/dL 8.5-10.1 [facility] Serum or plasma creatinine m easurement (mass/volume)Ordered By: Wendy Hinton on 05-25-2023 Creatinine [Mass/Vol] 1.06 mg/dL 0.55-1.02 [facility] Comment on above: The validity of the calculated GFR & GFRAA in patients over 70 years has not been determined. Clinical correlation is essential. Serum or plasma urea nitroge n measurement (mass/volume)Ordered By: Wendy Hinton on 05-25-2023 Urea nitrogen [Mass/Vol] 9 mg/dL 7-18 [facility] Thin prep Papanicolaou smear with manual screeningOrdered By: Wendy Hinton on 05-25-2023 Thin prep Papanicolaou smear with manual screening 9 5-15 [facility] Basophil percentageOrdered B y: Dr. Green on 03-20-2023 WBC (Bld) [#/Vol] 12.6 10*3/uL 4.4-11.0 [facility] Blood erythrocytes count (nu mber/volume)Ordered By: Dr. Green on 03-20-2023 RBC (Bld) [#/Vol] 4.94 10*6/uL 4.2-5.4 [facility] Blood hemoglobin measurement (mass/volume)Ordered By: Dr. Green on 03-20-2023 Hemoglobin (Bld) [Mass/Vol] 16.1 g/dL 12.0-15.0 [facility] Blood platelet mean volumeOr dered By: Dr. Green on 03-20-2023 Platelet mean volume (Bld) [Entitic vol] 9.2 fL 6.2-12.0 [facility] Determination of erythrocyte mean corpuscular volume (MCV)Ordered By: Dr. Green on 03-20-2023 MCV (RBC) [Entitic vol] 87.7 fL 81-99 [facility] Hematocrit Auto (Bld) [Volum e fraction]Ordered By: Dr. Green on 03-20-2023 Hematocrit (Bld) [Volume fraction] 43.3 % 37-47 [facility] Laboratory - Hematology and Cell countsOrdered By: Dr. Green on 03-20-2023 Erythrocyte distribution width (RBC) [Entitic vol] 39.9 fL 35.1-43.9 [facility] Erythrocyte distribution width (RBC) [Ratio] 12.5 % 11.6-14.6 [facility] MCH (RBC) [Entitic mass] 32.6 pg 27.0-32.0 [facility] MCHC Auto (RBC) [Mass/Vol]Or dered By: Dr. Green on 03-20-2023 MCHC (RBC) [Mass/Vol] 37.2 g/dL 32-36 [facility] Platelets bldOrdered By: Dr. Green on 03-20-2023 Platelets (Bld) [#/Vol] 420 10*3/uL 150-450 [facility] Basophil percentageOrdered B y: Wendy Hinton on 01-23-2023 Bilirubin [Mass/Vol] 0.40 mg/dL 0.20-1.00 [facility] Comment on above: For patients on eltr ombopag therapy, use of Dimension [place] TBIL is not recommended. Chloride [Moles/Vol] 101 mmol/L 98-107 [facility] Cholesterol [Mass/Vol] 309 mg/dL <200 [facility] Comment on above: <200 mg/dL Desirable 200-240 mg/dL Borderline >240 mg/dL High Risk Glucose [Mass/Vol] 142 mg/dL 74-106 [facility] Comment on above: Fasting Glucose resu lt greater than or equal to 126 mg/dL suggests DIABETES MELLITUS per A.D.A. criteria. Potassium [Moles/Vol] 3.9 mmol/L 3.5-5.1 [facility] Protein [Mass/Vol] 7.3 g/dL 6.4-8.2 [facility] Sodium [Moles/Vol] 139 mmol/L 136-145 [facility] Triglyceride [Mass/Vol] 668 mg/dL <199 [facility] Comment on above: The drugs N-Acetylcy steine and Metamizole may falsely depress this assay. TRIGLYCERIDE IS GREATER THAN 400 mg/dL. LDL RESULT IS INVALID AND WILL NOT BE REPORTED.Serum Triglycerides Reference Interval Normal <150 mg/dL Borderline high 150 - 199 mg/dL High 200 - 499 mg/dL Very High > or = 500 mg/dL Direct bilirubinOrdered By: Wendy Hinton on 01-23-2023 Bilirubin.direct [Mass/Vol] 0.08 mg/dL 0.00-0.30 [facility] Laboratory - Chemistry and C hemistry - challengeOrdered By: Wendy Hinton on 01-23-2023 ALP [Catalytic activity/Vol] 84 U/L 45-117 [facility] ALT [Catalytic activity/Vol] 31 U/L 13-56 [facility] CO2 [Moles/Vol] 30.0 mmol/L 21.0-32.0 [facility] Globulin (S) [Mass/Vol] 3.7 g/dL 2.2-4.2 [facility] Natriuretic peptide B (Bld) [Mass/Vol] 9.0 pg/mL 0-100 [facility] Urea nitrogen/Creatinine [Mass ratio] 7.5 mg/mg 10-20 [facility] No Panel InformationOrdered By: Wendy Hinton on 01-23-2023 Estimated GFR (MDRD) Amer 93 mL/min >60 [facility] Comment on above: GFR Calc Estimated GFR (MDRD) Non-Af Amer 77 mL/min >60 [facility] Comment on above: Non- GFR Calc Serum or plasma albumin bandar urement (mass/volume)Ordered By: Wendy Hinton on 01-23-2023 Albumin [Mass/Vol] 3.6 g/dL 3.2-5.0 [facility] Serum or plasma calcium bandar urement (mass/volume)Ordered By: Wenyd Hinton on 01-23-2023 Calcium [Mass/Vol] 9.4 mg/dL 8.5-10.1 [facility] Serum or plasma cholesterol in HDL measurement (mass/volume)Ordered By: Wendy Hinton on 01-23-2023 Cholesterol in HDL [Mass/Vol] 45 mg/dL >40 [facility] Comment on above: The drugs N-Acetylcy steine and Metamizole may falsely depress this assay. Reference Range HDL <40 mg/dL Low HDL Cholesterol HDL >or= 60 mg/dL High HDL Cholesterol Serum or plasma cholesterol in VLDL measurement (mass/volume)Ordered By: Wendy Hinton on 01-23-2023 Cholesterol in VLDL [Mass/Vol] TNP [facility] Comment on above: Test not performed Serum or plasma creatinine m easurement (mass/volume)Ordered By: Wendy Hinton on 01-23-2023 Creatinine [Mass/Vol] 0.80 mg/dL 0.55-1.02 [facility] Comment on above: The validity of the calculated GFR & GFRAA in patients over 70 years has not been determined. Clinical correlation is essential. Serum or plasma low density lipoprotein (LDL) cholesterol measurement (mass/volume)Ordered By: Wendy Hinton on 01-23-2023 Cholesterol in LDL [Mass/Vol] [facility] Comment on above: Test not performed Serum or plasma urea nitroge n measurement (mass/volume)Ordered By: Wendy Hniton on 01-23-2023 Urea nitrogen [Mass/Vol] 6 mg/dL 7-18 [facility] Thin prep Papanicolaou smear with manual screeningOrdered By: Wendy Hinton on 01-23-2023 Thin prep Papanicolaou smear with manual screening 21 U/L 15-37 [facility] Thin prep Papanicolaou smear with manual screening 8 5-15 [facility] Basophil percentageOrdered B y: Dr. Green on 10-20-2022 Chloride [Moles/Vol] 104 mmol/L 98-107 [facility] Glucose [Mass/Vol] 139 mg/dL 74-106 [facility] Comment on above: Fasting Glucose resu lt greater than or equal to 126 mg/dL suggests DIABETES MELLITUS per A.D.A. criteria. Potassium [Moles/Vol] 3.9 mmol/L 3.5-5.1 [facility] Sodium [Moles/Vol] 140 mmol/L 136-145 [facility] - Chemistry and C hemistry - challengeOrdered By: Dr. Green on 10-20-2022 CO2 [Moles/Vol] 30.0 mmol/L 21.0-32.0 [facility] Urea nitrogen/Creatinine [Mass ratio] 10.3 mg/mg 10- [facility] No Panel InformationOrdered By: Dr. Green on 10-20-2022 Estimated GFR (MDRD) Amer 74 mL/min >60 [facility] Comment on above: GFR Calc Estimated GFR (MDRD) Non-Af Amer 62 mL/min >60 [facility] Comment on above: Non- GFR Calc Serum or plasma calcium bandar urement (mass/volume)Ordered By: Dr. Green on 10-20-2022 Calcium [Mass/Vol] 9.1 mg/dL 8.5-10.1 [facility] Serum or plasma creatinine m easurement (mass/volume)Ordered By: Dr. Green on 10-20-2022 Creatinine [Mass/Vol] 0.98 mg/dL 0.55-1.02 [facility] Comment on above: The validity of the calculated GFR & GFRAA in patients over 70 years has not been determined. Clinical correlation is essential. Serum or plasma urea nitroge n measurement (mass/volume)Ordered By: Dr. Green on 10-20-2022 Urea nitrogen [Mass/Vol] 10 mg/dL 7-18 [facility] Thin prep Papanicolaou smear with manual screeningOrdered By: Dr. Green on 10-20-2022 Thin prep Papanicolaou smear with manual screening 6 5-15 [facility] Absolute lymphocyte counton 10-02-2022 Lymphocytes Auto (Unsp spec) [#/Vol] 2.39 10*3/uL 0.83-4.51 [facility] Work Phone: Basophil percentageon 2021 Basophils/100 WBC (Bld) 0.4 % 0-1 [facility] Work Phone: Eosinophils/100 WBC (Bld) 1.9 % 0-5 [facility] Work Phone: Neutrophils (Bld) [#/Vol] 5.8 10*3/uL 2.0-7.7 [facility] Work Phone: Neutrophils/100 WBC (Bld) 63.6 % 47-70 [facility] Work Phone: WBC (Bld) [#/Vol] 9.1 10*3/uL 4.4-11.0 [facility] Work Phone: Blood erythrocytes count (nu mber/volume)on 10-02-2022 RBC (Bld) [#/Vol] 4.88 10*6/uL 4.2-5.4 [facility] Work Phone: Blood hemoglobin measurement (mass/volume)on 10-02-2022 Hemoglobin (Bld) [Mass/Vol] 14.3 g/dL 12.0-15.0 [facility] Work Phone: [phone] Blood lymphocytes/100 leukoc yteson 10-02-2022 Lymphocytes/100 WBC (Bld) 26.4 % 19-41 [facility] Work Phone: Blood monocytes/100 leukocyt eson 10-02-2022 Monocytes/100 WBC (Bld) 7.1 % 0-10 [facility] Work Phone: Blood platelet mean volumeon 10-02-2022 Platelet mean volume (Bld) [Entitic vol] 9.4 fL 6.2-12.0 [facility] Work Phone: Determination of erythrocyte mean corpuscular volume (MCV)on 10-02-2022 MCV (RBC) [Entitic vol] 89.3 fL 81-99 [facility] Work Phone: Hematocrit Auto (Bld) [Volum e fraction]on 10-02-2022 Hematocrit (Bld) [Volume fraction] 43.6 % 37-47 [facility] Work Phone: Laboratory - Chemistry and C hemistry - challengeon 10-02-2022 Free T4 [Mass/Vol] 0.82 ng/dL 0.76-1.46 [facility] Work Phone: Laboratory - Hematology and Cell countson 10-02-2022 Erythrocyte distribution width (RBC) [Entitic vol] 41.8 fL 35.1-43.9 [facility] Work Phone: Erythrocyte distribution width (RBC) [Ratio] 12.7 % 11.6-14.6 [facility] Work Phone: Immature granulocytes/100 WBC (Bld) 0.600 % 0.0-0.9 [facility] Work Phone: Comment on above: IG% - Immature Granu locytes (promyelocytes, myelocytes and metamyelocytes) > 1% indicates that a LEFT SHIFT is Present. MCH (RBC) [Entitic mass] 29.3 pg 27.0-32.0 [facility] Work Phone: Nucleated RBC/100 WBC (Bld) [Ratio] 0 % 0-5 [facility] Work Phone: [phone] MCHC Auto (RBC) [Mass/Vol]on 10-02-2022 MCHC (RBC) [Mass/Vol] 32.8 g/dL 32-36 [facility] Work Phone: [phone] No Panel Informationon 10-02 Thyroid Stimulating Hormone (TSH) 2.08 uIU/mL 0.358-3.74 [facility] Work Phone: Platelets bldon 10-02-2022 Platelets (Bld) [#/Vol] 403 10*3/uL 150-450 [facility] Work Phone: Serum or plasma thyroperoxid ase antibody assay (units/volume)on 10-02-2022 TPO Ab Qn [IU]/mL 0-34 [facility] Work Phone: Comment on above: Performed at: [place] [id number] Director: Alberto Nguyen PhD, Phone: [phone] Laboratory - Hematology and Cell countson 07-31-2022 HbA1c (Bld) [Mass fraction] 6.6 % 4.2-6.3 [facility] Work Phone: XR CHEST 2V FRONTAL/LATon [facility] XR Chest PA and Lateralon IMPRESSION: Stable exam without acute findings. Final Inspector Shuttle: PSCB Transcribe Date/Time: Apr 03 2022 3:14P Dictated by : YANA SWEENEY MD This examination was interpreted and the report reviewed and electronically signed by: YANA SWEENEY MD on Apr 03 2022 3:16PM EST GraciaZZ_DO_NOT _USE_DIVIS ION OF RADIOLOGY * * *Final Report* * * DATE OF EXAM: Apr 03 2022 3:12PM WOX 5291 - XR CHEST 2V FRONTAL/LAT / PROCEDURE REASON: Cough * * * * Physician Interpretation * * * * EXAMINATION: CHEST RADIOGRAPH (2 VIEW FRONTAL & LATERAL) CLINICAL HISTORY: Cough MQ: XC2_6 EXAM DATE/TIME: 04/03/2022 3:12 PM COMPARISON: Chest x-ray on 03/03/2022. RESULT: Lines, tubes, and devices: None. Lungs and pleura: There is mild left basilar atelectasis, likely related to large pericardial fat pad. The lungs are otherwise clear of consolidations. No lung mass. No pleural effusion. No pneumothorax. Cardiomediastinal silhouette: Normal cardiomediastinal silhouette. Bones and soft tissues: Status post cervical spinal fusion. ZZZ_DO_NOT _USE_DIVIS ION OF RADIOLOGY Provider, [facility] - 04/03/2022 * * *Final Report* * * DATE OF EXAM: Apr 03 2022 3:12PM WOX 5291 - XR CHEST 2V FRONTAL/LAT / PROCEDURE REASON: Cough * * * * Physician Interpretation * * * * EXAMINATION: CHEST RADIOGRAPH (2 VIEW FRONTAL & LATERAL) CLINICAL HISTORY: Cough MQ: XC2_6 EXAM DATE/TIME: 04/03/2022 3:12 PM COMPARISON: Chest x-ray on 03/03/2022. RESULT: Lines, tubes, and devices: None. Lungs and pleura: There is mild left basilar atelectasis, likely related to large pericardial fat pad. The lungs are otherwise clear of consolidations. No lung mass. No pleural effusion. No pneumothorax. Cardiomediastinal silhouette: Normal cardiomediastinal silhouette. Bones and soft tissues: Status post cervical spinal fusion. IMPRESSION IMPRESSION: Stable exam without acute findings. Final Inspector Shuttle: PSCB Transcribe Date/Time: Apr 03 2022 3:14P Dictated by : YANA SWEENEY MD This examination was interpreted and the report reviewed and electronically signed by: YANA SWEENEY MD on Apr 03 2022 3:16PM EST [facility] Radiology Study observation (narrative) Jimena casey [facility] XR Chest PA and LateralOrder ed By: Ccf Provider on 04-03-2022 [facility] XR CHEST 2V FRONTAL/LATon [facility] XR Chest PA and Lateralon IMPRESSION: No acute radiographic abnormality. Final Inspector Shuttle: PSCB Transcribe Date/Time: Mar 03 2022 2:23P Dictated by : JOELLEN CARTAGENA MD This examination was interpreted and the report reviewed and electronically signed by: JOELLEN CARTAGENA MD on Mar 03 2022 2:25PM EST ZZZ_DO_NOT _USE_DIVIS ION OF RADIOLOGY * * *Final Report* * * DATE OF EXAM: Mar 03 2022 2:15PM WOX 5291 - XR CHEST 2V FRONTAL/LAT / PROCEDURE REASON: Suspected COVID-19 virus infection * * * * Physician Interpretation * * * * EXAMINATION: CHEST RADIOGRAPH (2 VIEW FRONTAL & LATERAL), 03/03/2022 CLINICAL HISTORY: Suspected COVID-19 virus infection MQ: XC2_6 EXAM DATE/TIME: 03/03/2022 2:15 PM COMPARISON: 2017 RESULT: Lines, tubes, and devices: None. Lungs and pleura: The lungs are clear. No pulmonary infiltrates. No pleural effusion. No pneumothorax. Cardiomediastinal silhouette: Normal cardiomediastinal silhouette. Bones and soft tissues: Surgical hardware in the included lower cervical spine. ZZZ_DO_NOT _USE_DIVIS ION OF RADIOLOGY Provider, [facility] - 03/03/2022 * * *Final Report* * * DATE OF EXAM: Mar 03 2022 2:15PM WOX 5291 - XR CHEST 2V FRONTAL/LAT / PROCEDURE REASON: Suspected COVID-19 virus infection * * * * Physician Interpretation * * * * EXAMINATION: CHEST RADIOGRAPH (2 VIEW FRONTAL & LATERAL), 03/03/2022 CLINICAL HISTORY: Suspected COVID-19 virus infection MQ: XC2_6 EXAM DATE/TIME: 03/03/2022 2:15 PM COMPARISON: 2017 RESULT: Lines, tubes, and devices: None. Lungs and pleura: The lungs are clear. No pulmonary infiltrates. No pleural effusion. No pneumothorax. Cardiomediastinal silhouette: Normal cardiomediastinal silhouette. Bones and soft tissues: Surgical hardware in the included lower cervical spine. IMPRESSION IMPRESSION: No acute radiographic abnormality. Final Inspector Shuttle: RICKI Transcribe Date/Time: Mar 03 2022 2:23P Dictated by : JOELLEN CARTAGENA MD This examination was interpreted and the report reviewed and electronically signed by: JOELLEN CARTAGENA MD on Mar 03 2022 2:25PM EST [facility] Radiology Study observation (narrative) Jimena casey [facility] XR Chest PA and LateralOrder ed By: Ccf Provider on 03-03-2022 [facility] CHEST 2 VIEW PA AND LATon CHEST 2 VIEW PA AND LAT Patient Name: BRITNEY MARIE STUDY: TH CHEST 2 VIEW PA AND LAT; 07/09/2020 9:34 am INDICATION: Chest Pain. COMPARISON: None. ACCESSION NUMBER(S): [id number] ORDERING CLINICIAN: PIETER STUBBS FINDINGS: PA and lateral chest. No focal infiltrate, pleural effusion or evidence of pneumothorax. The cardiac silhouette is normal in size. Osseous thorax appears intact. IMPRESSION: No acute cardiopulmonary process. Electronically signed by: BROWN NAVA MD [facility] Provider Note - ED v2on 06-17 Provider Note - ED v2 Provider Note - ED v2: Chart Review: HISTORY OF PRESENTING ILLNESS BRITNEY is a 59 year old Female and was seen by me at 09-Jul-2020 08:54 for a chief complaint of rib pain/injury (states 2 days ago she tripped and someone fell onto her right ribs. c/o increased pain with movement and deep breath.)(1). Other complaints include: Right chest pain after someone fell on her right chest on Thursday hurts for her to take a deep breath right under her right breast. The historian is the patient. Triage Information: Most recent Vital Sign Value Date Temp (F): 97.5 07-09-2020 09:01 Temp (C): 36.4 07-09-2020 09:01 Heart Rate (beats/min): 92 07-09-2020 09:01 Respirations (breaths/min): 20 07-09-2020 09:01 SpO2 (%): 95 07-09-2020 09:01 BP Systolic (mm Hg): 163 07-09-2020 09:01 BP Diastolic (mm Hg): 97 07-09-2020 09:01 PAST MEDICAL HISTORY ATTESTATION: I have reviewed and confirmed nurse's/medic's notes for patient's medications, allergies, medical history, and surgical history PSYCHOSOCIAL SCREENING: NO: concerns for safety at home, feelings of depression, feels like hurting others and feels like hurting self CURRENT OR FORMER SUBSTANCE USE: NO: Cigarette/Tobacco, e-Cigarette/Vaping, Alcohol and Street Drugs ALLERGIES/INTOLERANCES: Allergy Allergen: hydromorphone Type: Drug Reaction: Hives/Urticaria Allergen: hydrocodone Type: Drug Reaction: Hives/Urticaria Allergen: oxycodone Type: Drug Reaction: Hives/Urticaria Allergen: propoxyphene Type: Drug Reaction: Hives/Urticaria Allergen: cephalexin Type: Drug Reaction: Rash Allergen: heparin Type: Drug Reaction: Bleeding Allergen: penicillin Type: Drug Reaction: Anaphylaxis Allergen: budesonide Type: Drug Reaction: Angioedema Allergen: formoterol Type: Drug Reaction: Angioedema Allergen: oxytocin Type: Drug Reaction: Hives/Urticaria Allergen: acetaminophen Type: Drug Reaction: Hives/Urticaria Allergen: sulfa drugs Type: Drug Category Reaction: Hives/Urticaria Allergen: Tape - Adhesive, Bandaids, Paper Type: Environment Reaction: Rash HEALTH HISTORY: No documented data. OUTPATIENT MEDICATIONS: Home Medications Review Status for Reconciliation: N/A Med Status: N/A No documented data. SIGNIFICANT EVENTS: No documented data. PLUMBING INSTRUCTOR: Is : no Is : no REVIEW OF SYSTEMS MUSCULOSKELETAL: (right Chest wall pain) All other systems reviewed and are negative PHYSICAL EXAM CONSTITUTIONAL: Well appearing, well nourished, awake, alert, oriented to person, place, time/situation and in no apparent distress. HENMT: Airway patent, Face with no lymph node enlargement. EYES: Clear bilaterally, pupils equal, round and reactive to light. CARDIOVASCULAR: Regular rate S1-S2 no clicks rubs or bruits RESPIRATORY: Breath sounds clear and equal bilaterally. Bruising evident there is pain with palpation along the right sixth and seventh ribs GASTROINTESTINAL: no Abdominal pain complaint GENITOURINARY: No CVA tenderness MUSCULOSKELETAL: Spine appears normal, range of motion is not limited, no muscle or joint tenderness. NEUROLOGICAL: NIHSS is 0 SKIN: Skin normal color for race, warm, dry and intact. No evidence of trauma. PSYCHIATRIC: Alert and oriented to person, place, time/situation. normal mood and affect. No apparent risk to self or others. HEME/LYMPH: No cervical adenopathy CLINICAL IMPRESSION Diagnosis/Annotation: ED Dx Name:Traumatic injury of rib Code:S29.9XXA Dispostion: discharged Type: home ATTESTATION CRITICAL CARE TIME Is this a critically ill patient: no Electronic Signatures: Pieter Stubbs) (Signed 09-Jul-2020 09:22) Authored: Provider Note - ED v2 Last Updated: 09-Jul-2020 09:22 by Pieter Stubbs () References: 1. Data Referenced From Triage - ED 09-Jul-2020 09:01 [facility] Risk Screen - Adult Emergenc yon 07-09-2020 Risk Screen - Adult Emergency Preferred Language: Preferred Language: Preferred Language for Discussing Health Care (patient/designee)Elissa george Advanced Directives: Advance Directive/DNRno Family Violence Adult: Abuse Screen: Are you or have you been threatened or abused physically, emotionally, or sexually by anyoneno Learning Assessment (Patient): Learning Assessment (Patient): Patient is Able to be Assessed for Learningyes Factors Influencing Readiness to Learnn/a Factors that Impact Ability to Learnnone Devices/Methods Used to Communicatenone Learning Preferencesverbal instruction; written material Cultural Considerationsnone Developmental Considerationsnone Hoahaoism Considerationsnone Learning Assessment (Other Learner): Learning Assessment (Other Learner): Other learner availableno Pressure Injury/TB/Substance: Pressure Injury: Do you have a coughno Substance Use Current or Former Historynever: Alcohol, Street Drugs YES: Cigarette/Tobacco Smoking Statuscurrent every day smoker Admission Risk Screen: Significant IndicatorsComplete CAGE: CAGE: Is this an injured patient at a Trauma Center ([facility]/[place] /[place]): no Electronic Signatures: Niurka Centeno (MURALI) (Signed 09-Jul-2020 09:00) Authored: Preferred Language, Advanced Directives, Family Violence Adult, Learning Assessment (Patient), Learning Assessment (Other Learner), Pressure Injury/TB/Substance, CAGE Last Updated: 09-Jul-2020 09:00 by Niurka Centeno (MURALI) [facility] Triage - EDon 07-09-2020 Triage - ED Quick Triage: Are You no Have You Given In The Last 6 Weeksno Are You Currently Breastfeedingno Chart Review: CHIEF COMPLAINT BRITNEY MARIE is a Female patient with a chief complaint of rib pain/injury (states 2 days ago she tripped and someone fell onto her right ribs. c/o increased pain with movement and deep breath.). Triage Date/Time: 09-Jul-2020 08:48 Pain Rating (0-10): 9 = Severe Pain location: right ribs Vital Signs: Temperature: 97.5F ( 36.4C) taken oral Blood Pressure: 163/97 Mean: Heart Rate: 92 Respiratory Rate: 20 Pulse Oximetry: 95% on room air, no respiratory support. Height: 5 feet 1.00 inches. 154.9 CM Weight: 185.1 pounds. Calculated 84.0 kg. (stated) Calculated BMI (kg/m2): 35.008 Calculated BSA (m2) 1.90 [place] Coma Scale: Best Eye Response: (E4) spontaneous Best Motor Response: (M6) obeys commands Best Verbal Response: (V5) oriented Lexi Score: 15 Allergies: yes Patient has homicidal thoughts: no BENSON: 4 Symptom Notes: . Symptoms Are POSITIVE For: pain (describe). Risk Screens Suicide Risk Screen In the Past Month: Have you wished you were or wished you could go to sleep and not wake up no In the Past Month: Have you had any actual thoughts of killing yourself no In Your Lifetime: Have you ever done anything, started to do anything, or prepared to do anything to end your life no Calvert Fall Scale Screening Has the patient fallen before (or is the patient in the ED as a result of a fall) has had a fall Does the patient have an impaired gait does not have impaired gait Is the patient cognitively impaired not cognitively impaired Calvert Fall Scale History of falling (immediate or previous) yes (25) Secondary Diagnosis no (0) Intravenous Therapy/ Heparin/Saline Lock no (0 Gait/Transferring normal/bedrest/wheelchai r (0) Ambulatory Aids none/bedrest/nurse assist (0) Mental Status oriented to own ability (0) Calvert Fall Risk Score: 25 Interventions: Calvert Fall Interventions: LOW INTERVENTIONS: *patient oriented to surroundings and call system, * patient/family falls education completed and documented, *patients fall status communicated during bedside handoff, *whiteboard updated, *mode of toileting discussed with patient, *bed in low position with brakes locked, *call light in reach, * non-skid footwear and MODERATE INTERVENTIONS: *Low Interventions Plus: * falls risk band/sticker applied to patient, *yellow non-skid footwear, *instruct to call for assistance before getting out of bed, *bed/chair/bedside commode/toilet alarms, *sensory devices/ambulatory aides available and in reach, *medications reviewed for potential side effects and care planning. PAIN Pain Scale Used: BRIANNA Pain Rating (0-10): 9 = Severe ARRIVAL INFORMATION Means of Arrival: Ambulatory Mode of Arrival: private vehicle Arrival From: home Accompanied By: self Language: Spoken Language Preferred: Macanese Reading Language Preferred: Macanese Present on Arrival: Device Present on Arrival to ED: no PRIMARY ASSESSMENT BRITNEY MARIE's primary assessment is Within Defined Limits. The airway is open and patent. Breathing spontaneous and unlabored with clear breath sounds bilaterally. Circulation is normal with good peripheral pulses. Skin is warm and dry and color is normal for race. TRAVEL HISTORY Travel History Coronavirus Screening: no exposure or symptoms Travel Exposure History: NO travel to International locations in the past 30 days Past Medical History: Past Medical History Reviewedyes Electronic Signatures: Niurka Centeno (RN) (Signed 09-Jul-2020 09:06) Authored: Triage, Past Medical History Last Updated: 09-Jul-2020 09:06 by Niurka Centeno (RN) Normal [facility] 08-27-2018 Erythrocyte distribution width Auto Ratio (RBC) 12.8 % Normal 11.5-15.[address] [facility] Comment on above: Performed By: #### C BC, PT ####[facility] [id number] [place] [id number] Hematocrit Auto Volume Fraction (Bld) 39.7 % Normal 36.0-46.[address] [facility] Comment on above: Performed By: #### C BC, PT ####[facility] [phone] Hemoglobin mass conc (Bld) 13.9 g/dL Normal 11.5-15.[address] [facility] Comment on above: Performed By: #### C CAITLIN, PT ####[facility] [phone] MCH Auto Entitic mass (RBC) 30.3 pG Normal 26.0-34.[address] [facility] Comment on above: Performed By: #### Suzy TUCKER, PT ####[facility] [id number] [place] [address] MCHC Auto mass conc (RBC) 35.0 g/dL Normal 30.5-36.[address] [facility] Comment on above: Performed By: #### Suzy TUCKER, PT ####[facility] [id number] [place] [address] MCV Auto Entitic volume (RBC) 86.7 fL Normal 80.0-100.[address] [facility] Comment on above: Performed By: #### Suzy TUCKER, PT ####[facility] [address] [place] [address] Platelet mean volume Auto Entitic volume (Bld) 8.9 fL Low 9.0-12.[address] [facility] Comment on above: Performed By: #### Suzy TUCKER, PT ####[facility] [address] [place] [address] Platelets Auto #/vol (Bld) 314 10*3/uL Normal 150-[address] [facility] Comment on above: Performed By: #### Suzy TUCKER, PT ####[facility] [address] [place] [address] RBC Auto #/vol (Bld) 4.58 10*6/uL Normal 3.90-5.20 [facility] Comment on above: Performed By: #### Suzy TUCKER, PT ####[facility] [address] [place] [address] WBC Auto #/vol (Bld) 9.22 10*3/uL Normal 3.70-11.00 [facility] Comment on above: Performed By: #### Suzy TUCKER, PT ####[facility] [address] [place] [address] CT BIOPSY LIVER NEEDLE PERCo n 08-27-2018 CT BIOPSY LIVER NEEDLE PERC * * *Final Report* * *DATE OF EXAM: Aug 27 2018 10:20AM [facility] [place] BIOPSY LIVER NEEDLE PERC / REASON: LIVER BX * * * * Physician Interpretation * * * * PROCEDURE PERFORMED: CT GUIDED LIVER BIOPSYPRE-PROCEDURE DIAGNOSIS: Fatty liverPOST-PROCEDURE DIAGNOSIS: Same as aboveINDICATION FOR PROCEDURE: The patient is a 57 years old Female who presents with abnormal LFTs and suggested fatty metamorphosis on MRI liver of 07/30/2018.CONSENT: The risks, benefits, treatment options, potential complications and personnel involved were discussed with the patient. All questions were answered and consent was obtained. The patient indicated she was willing to proceed. The staff physician personally verified consent.TIME OUT: A time out was performed immediately prior to procedure start with the nursing, anesthesia and interventional team, correctly identifying the patient name, date of , procedure, anatomy (including marking of site and side), patient position, procedure consent form, relevant diagnostic and radiology test results, antibiotic administration (when indicated), safety precautions, and procedure-specific equipment needs.RESULT:PROCEDURE: After performing the time out, the left hepatic lobe was localized under CT. skin entry site was prepped and draped in the usual sterile fashion. Under direct CT guidance, a 17 gauge trochar needle was advanced to the site of interest. Through the trochar, 2 passes were made into the site of interest using an 18 gauge cutting needle.Local anesthesia was achieved utilizing 8 cc 2% percent lidocaine. Vital signs were monitored by the nurse.PATIENT MONITORING: I personally supervised and directed an independent trained observer who assisted in monitoring the patient?s level of consciousness and physiological status throughout the procedure.COMPLICATIONS: NoneSIGN-OUT DISCUSSION: CompletedESTIMATED BLOOD LOSS: NoneCONTRAST: NoneCT ABDOMEN AND PELVIS RADIATION DOSE: Dose-length product (DLP) = 840 mGy*cm.SPECIMENS: 2 core biopsy specimen(s) was/were placed in formalin and sent for pathology evaluation.BIOPSY DEVICE: 18 gauge Bard core biopsy needle.IMPRESSION: CT GUIDED BIOPSY DESCRIBEDv 11/18/16 procedureTranscriptionis t: PSCB Transcribe Date/Time: Aug 27 2018 10:57ADictated by : ALEXUS WEBSTER MDThis examination was interpreted and the report reviewed and electronically signed by: ALEXUS WEBSTER MD on Aug 27 2018 10:58AM [id number] Normal [facility] HISTORY PHYSICALon 8 HISTORY PHYSICAL HNO ID: [id number]: Alexus VickershamSerhipolitoe: RadiologyAuthor Type: PhysicianType: HANDPFiled: 08/27/2018 9:48 AMNote Text:PROCEDURAL SEDATION HISTORY AND PHYSICAL EXAMSERVICE DATE: 08/27/2018SERVICE TIME: 9:47 AMSubjectiveHPI: This is a 57 year old female who presents with suggestion of fattyliver on prior MRI liver. Radiology was consulted to perform image guidedliver biopsy.PAST ANESTHESIA HISTORY: No history of adverse eventPAST MEDICAL HISTORYDiagnosis Date- ASHD (arteriosclerotic heart disease) 10/14/2011- Bandemia 01/29/2018- Cervical disc disorder at C4-C5 level with radiculopathy- Cocaine substance abuse (HCC) 2003- COPD (chronic obstructive pulmonary disease) ([facility])- Degenerative disc disease, cervical 12/04/2010- Depression 12/04/2010- Dysmetabolic syndrome X 01/21/2011- Dyspnea on exertion- Erosive esophagitis 09/04/2014- Esophageal reflux Gastroesophageal reflux- Essential hypertension, benign 09/09/2010 no meds currently 03/26- Fibrocystic breast changes, bilateral 01/28/2017- Hyperlipidemia LDL goal < 70 10/14/2011- Migraine headache 01/23/2012- Myalgia- Nodule of right lung 03/02/2018 02/09/18: 5 mm to recheck in 1 yr- Non morbid obesity due to excess calories 08/29/2016- Obstructive sleep apnea- Osteoporosis 03/13/2011- Other cervical disc displacement at C4-C5 level- Other intervertebral disc displacement, lumbar region- Other muscle spasm- Other specified dorsopathies, lumbosacral region- Peptic ulcer, unspecified site, unspecified as acute or chronic, withoutmention of hemorrhage, perforation, or obstruction Peptic ulcer disease- Spinal stenosis, cervical region- Spondylosis without myelopathy or radiculopathy, cervical region- Steatosis of liver 07/30/2018- Tobacco abuse 01/23/2012- Trigeminal neuralgia 12/29/2013- Type 2 diabetes mellitus (HCC) 07/15/2018- Vitamin D deficiency 03/19/2011PAST SURGICAL HISTORYProcedure Laterality Date- ANTERIOR INTERBODY FUSION, CERVICAL 1992- APPENDECTOMY 2004-- CHOLECYSTECTOMY about 2005- sludge- COLONOSCOP W/ OR W/O [facility] SPEC 04/30/2010 Dr. Rayshawn Shrestha- COLONOSCOP W/ OR W/O [facility] [[email or web address]] SPEC 08/10/13 Colonoscopy- COLONOSCOP W/ OR W/O [facility] [[email or web address]] SPEC 08/03/2018 Colonoscopy- EGD W/O OR W/BRUSH/WASH 08/10/13 EGD- EGD W/O OR W/BRUSH/WASH 08/03/2018 EGD- LAPAROSCOPY, SURGICAL, ESOPHAGOGAST 01-25-10 LAP KAMILA- LEFT HEART CATH,PERCUTANEOUS 12/17/11 Cardiac cath, L heart, see scanned report- Tonsilectomy- TUBAL LIGATION,- XR CERVICAL FUSION OR 1997 posterior fusionPrior to Admission medications as of 08/27/18 0836Medication Sig Last Dose Takinglevocetirizine dihydrochloride (XYZAL ORAL) Take by mouth as needed.08/25/2018 Yesmorphine SR (MS CONTIN, ORAMORPH SR) 15 mg 12 hr tablet Take 15 mg bymouth twice daily. 08/26/2018 at 2130 Yescolestipol (COLESTID) 1 gram tablet Take 2 tablets by mouth once daily.08/26/2018 at 0900 Yesondansetron orally disintegrating (ZOFRAN ODT) 4 mg disintegrating tabletTake 1 tablet by mouth every 6 hours as needed for Nausea/Vomiting.08/26/20 18 at 0900 YesbuPROPion SR (WELLBUTRIN SR) 150 mg 12 hr tablet Take 1 tablet by mouthtwice daily. 08/26/2018 at 0900 Yesalbuterol HFA (VENTOLIN HFA) 90 mcg/actuation inhaler Inhale 2 Puffs asinstructed every 4 hours as needed for Wheezing/Shortness of Breath.08/27/2018 at 0430 Yescoenzyme Q10 (COQ-10) 100 mg cap capsule Take 1 capsule by mouth twicedaily. 08/25/2018 at Unknown time Yesmetoprolol succinate ER (TOPROL XL) 50 mg 24 hr tablet Take 1 tablet bymouth once daily. 08/26/2018 at 1200 Yessucralfate (CARAFATE) 1 gram tablet Take at least 30 minutes beforeeating, and again before bed, if needed. 08/25/2018fluticasone-vi lanterol (BREO ELLIPTA) 200-25 mcg/dose inhaler Inhale 1Inhalation as instructed once daily. Inhale one puff once daily. DO NOTCLICK OPEN UNTIL READY FOR DOSE 08/25/2018albuterol (PROVENTIL) 2.5 mg /3 mL (0.083 %) nebulizer solution Use 3 mLvia nebulizer every 4 hours as needed for Wheezing/Shortness of Breath.Use over 5-15minutes. 08/25/2018atorvastatin (LIPITOR) 80 mg tablet Take 1 tablet by mouth once daily.08/25/2018nitrogly cerin sublingual (NITROQUICK) 0.4 mg SL tablet Dissolve 1 tabletunder the tongue as needed. FOR CHEST PAIN. IF NO RELIEF CALL 911 monthsagoloratadine (CLARITIN) 10 mg tablet Take 1 tablet by mouth once daily.Unknown at Unknown timepregabalin (LYRICA) 100 mg capsule Take 1 capsule by mouth three timesdaily. 08/22/2018pantoprazole DR (PROTONIX) 40 mg tablet Take 1 tablet by mouth once daily.Patient taking differently: Take 40 mg by mouth as needed. 08/20/2018ALLERGIESAllerg en Reactions- Latex Rash- Darvocet A500 [Prop* Itching- Darvocet-N 100 [Pro* Itching- Dilaudid [Hydromorp* Other: See Comments Burning sensation over entire body- Ees [Other]- Heparin Analogues Hives, Swelling- Keflex [Cephalexin] Swelling, Itching, Shortness of Breath- Levaquin [Levofloxa* Itching- Lisinopril Other: See Comments flushing- Oxycodone Itching- Oxycotin [Oxycodone] Hives, Swelling, Itching- Penicillin Anaphylaxis 4 years old- Percocet [Oxycodone* Itching- Polytrim [Polymyxin* Swelling, Itching- Sulfa (Sulfonamide * Hives- Tegretol [Carbamaze* Mental Status Change- Vibramycin [Doxycyc* Hives, Itching- Vicodin [Hydrocodon*- Adhesive Tape (Elizabeth* Rash, ItchingObjectivePHYSICAL EXAM: The remainder of the physical exam is noncontributory.AIRWAY: Airway Visualization of Uvula: YesMouth opening greater than 2 fingerbreadths: YesNeck Full Range of Motion: YesLUNGS: Lungs clear to auscultation, Good diaphragmatic excursionCARDIAC: Normal S1 and S2; no rubs, murmurs, or gallopsAssessment/Anshu A Class: ASA Class:: Patient with mild systemic diseaseActive Problems: * No active hospital problems. *Resolved Problems: * No resolved hospital problems. *Provisional Diagnosis/Treatment Plan: CT guided liver biopsySEDATION GOAL: ModerateSIGNATURE: Alexus Webster MD PATIENT NAME: Britney VincentATE: August 27, 2018 : 9:47 AM PAGER: [phone] [facility] NURSING PROGon 08-27-2018 Protein mass conc HNO ID: [id number]: JOSÉ ANTONIO Alonso Rnervice: NursingAuthor Type: Registered NurseType: Nursing Progress NoteFiled: 08/27/2018 12:28 PMNote Text:1200 Iv removed Discharge instructions reviewed with pt and friendDressing intact on upper abdomen Up to br Steady when up VoidedMedications not reconciled in homegoing instructions Dr webster updated Stated she will reconcile meds but pt can be discharged and to continueall meds as taken [id number] Discharged [address] wheelchair [facility] PT EDon 08-27-2018 PT ED HNO ID: [id number]: JOSÉ ANTONIO Alonso Rnervice: NursingAuthor Type: Registered NurseType: Patient EducationFiled: 08/27/2018 12:25 PMNote Text:PRE OP LEARNING ASSESSMENTPROCEDURE/SURG SUSAN: liver biopsyREADINESS TO LEARNCOGNITIVE ABILITY: Alert and orientedMOTIVATION TO LEARN: InterestedFAMILY SUPPORT: Unable to assess - Family not presentPATIENT LEARNS BEST BY: Verbal InstructionFACTORS AFFECTING LEARNING: NonePHYSICAL LIMITATIONS AFFECTING LEARNING: NoneElectronically Signed By: Tasneem Ramos RN In Department[facility] PT ED HNO ID: [id number]: JOSÉ ANTONIO Alonso Rnervice: NursingAuthor Type: Registered NurseType: Patient EducationFiled: 08/27/2018 12:25 PMNote Text:POST OP LEARNING RESPONSEINSTRUCTION PROVIDED TO: Patient and Patient and friend/otherMETHOD OF INSTRUCTION: Verbal instructionPATIENT / FAMILY RESPONSE: Information received as demonstrated byinterest and questionsFOLLOW-UP PLAN: Patient instructed to call with any further issuesSUPPLEMENTAL MATERIAL: Post op discharge instructionsREFERRAL (RECOMMENDATION): NoneElectronically Signed By: Tasneem Ramos RN In Department: [facility] RADIOLOGY Normal [facility] Protimeon 08-27-2018 INR Coag RelTime (Bld) 0.9 {INR} Normal 0.9-1.3 [facility] Comment on above: Result Comment: Guadalupe min K Antagonist (VKA) Therapeutic Range: INR 2 to 3 (Target INR of 2.5)Note: For patients treated with VKA drugs, such as warfarin, the [employer] [employer] 2012 Guideline recommends a therapeutic INR range of 2 to 3 (target INR of 2.5). This recommendation includes high-risk patients with antiphospholipid syndrome with previous arterial or venous thromboembolism, current-generation mechanical or bioprosthetic aortic heart valve replacement.Note: Patients with mechanical aortic valve replacement and additional risk factors for thromboembolic events (atrial fibrillation, previous thromboembolism, LV dysfunction, hypercoagulable conditions) or an older generation mechanical AVR (i.e., ball in-Cage) or any mechanical MVR should have a INR therapeutic range of 2.5 to 3.5 (target INR of 3).Wade GH, et al. Chest 2012, 141:7S-47SNishessence ACOSTA, et al. [facility] 2017, 70: 252-289 Performed By: #### C BC, PT ####[facility] Lsumhvufbq5071 [address] PT Sec 9.5 sec Low 9.7-13.[address] [facility] Comment on above: Performed By: #### C BC, PT ####[facility] [address] [place] [phone] SURGICAL PATHOLOGYon 018 SURGICAL PATHOLOGY [facility]: [id number] Physician: ALEXUS WEBSTER MD ____FINAL DIAGNOSISLiver, biopsy Severe steatosis without fibrosis.- See comment. TP/glw 08/30/2018 COMMENTThe lobular architecture is intact. The portal tracts harbor their usualstructures with intact intralobular bile ducts and portal vasculature.There is no significant portal inflammation. The lobules demonstrate severesteatosis (70%) without any definitive ballooned hepatocytes. No Malloryhyaline deposition is seen. The lobules demonstrate mild inflammation.Central veins are patent and uninflamed. There is no cholestasis orgranulomatous inflammation. PAS after diastase shows no alpha-1 antitrypsininclusions. Trichrome stain highlights no fibrosis. Iron stain is negativefor stainable iron. Trichrome highlights no definite fibrosis.NAFLD Activity Score (JEMIMA): Steatosis: 3 (>66%)Lobular inflammation (foci per 20x field): 1(<2)Hepatocyte balloonin (none), Total Score: 4/8. Stage: 0 (none) Other features: NoneMallory hyaline: NegativeOther forms of chronic liver disease: NoneReference: Lyn DE, Thait EM, et al. Hepatology 41(6):1313-21, 2005.Wei Flynn M.D.(Electronic Signature) SPECIMEN SUBMITTEDA: LIVER, BIOPSY CLINICAL DATAFATTY LIVER SUGGESTED ON MRI, LMP: NAGROSS DESCRIPTIONA. Received in formalin are two segments of cylindrical tissue aggregatingto 1.8 x 0.2 x 0.1 cm, hidalgo and of a soft consistency. Totally submitted informalin in one cassette.Gross examination performed at [facility], [address] [place] [id number] 08/27/2018 3:36:16 PMPatient ID #: [id number] of Report: 08/30/2018Date of Procedure: 08/27/2018Date of Receipt: 08/27/2018Submitted by: ALEXUS WEBSTER MDLocation: MERADDiagnostic interpretation performed at [facility], [address] [facility] [address] [facility] Comment on above: Performed By: #### P ATHS ####[facility] [address] [place], [place] [phone] HOSPon 08-17-2018 HOSP Patient:Candida Marie ra JMRN: Height:5' 2(1.575 m)Weight:182 lb (82.555 kg)Outpatient Medications as of 08/27/18:levocetirizine dihydrochloride (XYZAL ORAL)morphine SR (MS CONTIN, ORAMORPH SR) 15 mg 12 hr tabletsucralfate (CARAFATE) 1 gram tabletcolestipol (COLESTID) 1 gram tabletondansetron orally disintegrating (ZOFRAN ODT) 4 mg disintegrating tabletbuPROPion SR (WELLBUTRIN SR) 150 mg 12 hr tabletfluticasone-vilant cheyanne (BREO ELLIPTA) 200-25 mcg/dose inhaleralbuterol (PROVENTIL) 2.5 mg /3 mL (0.083 %) nebulizer solutionalbuterol HFA (VENTOLIN HFA) 90 mcg/actuation inhalercoenzyme Q10 (COQ-10) 100 mg cap capsuleatorvastatin (LIPITOR) 80 mg tabletnitroglycerin sublingual (NITROQUICK) 0.4 mg SL tabletmetoprolol succinate ER (TOPROL XL) 50 mg 24 hr tabletloratadine (CLARITIN) 10 mg tabletpregabalin (LYRICA) [address] (PROTONIX) 40 mg tabletAdmission/Clinic Administered Medications as of 08/27/18:0.9% NaCl 2-10 mLProblem List:Essential hypertension, benign [I10]Degenerative disc disease, cervical [M50.30]Depression [F32.9]Dysmetabolic syndrome X [E88.81]Osteoporosis [M81.0]Cervical disc disorder [M50.90]Vitamin D deficiency [E55.9]Hyperlipidemia with target LDL less than 70 [E78.5]ASHD (arteriosclerotic heart disease) [I25.10]Tobacco abuse [Z72.0]Tobacco abuse counseling [Z71.6]Migraine headache [G43.909]SUMMARY [V999.95]Asthma [J45.909]Elevated gastrin level [E16.4]Flushing [R23.2]Trigeminal neuralgia [G50.0]Erosive esophagitis [K22.10]Spontaneous ecchymoses [R23.3]Lumbar back pain with radiculopathy affecting left lower extremity [M54.16]Arteriosclerosis of carotid artery [I65.29]MELYSSA (obstructive sleep apnea) [G47.33]Trigeminal neuralgia of right side of face [G50.0]Obesity (BMI 30-39.9) [E66.9]Grief [F43.21]Other seasonal allergic rhinitis [J30.2]Anxiety and depression [F41.9, F32.9]Sense of smell altered [R43.9]Nonintractable headache [R51]Non morbid obesity due to excess calories [E66.09]Fibrocystic breast changes, bilateral [N60.11, N60.12]Orthostatic hypotension [I95.1]Moderate episode of recurrent major depressive disorder (HCC) [F33.1]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]Incisional hernia, without obstruction or gangrene [K43.2]Bandemia [D72.825]Secondary polycythemia [D75.1]Nodule of right lung [R91.1]Chronic obstructive pulmonary disease, unspecified (HCC) [J44.9]Osteoarthritis [M19.90]Gastro-esophagea l reflux disease without esophagitis [K21.9][employer] 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 [Z79.82]prison (current) use of opiate analgesic [Z79.891]Personal history of transient ischemic attack (TIA), and cerebral infarctionwithout residual deficits [Z86.73]Orthopnea [R06.01]Spinal stenosis, cervical region [M48.02]Type 2 diabetes mellitus (HCC) [E11.9]Mixed stress and urge urinary incontinence [N39.46]Abdominal pain [R10.9]RUQ pain [R10.11]Nausea [R11.0]Steatosis of liver [K76.0]Allergies:LatexDa rvocet A500 [Propoxyphene N-Acetaminophen]Darvocet -N 100 [Propoxyphene N-Acetaminophen]Dilaudid [Hydromorphone Hcl]EES [Other]Heparin AnaloguesKeflex [Cephalexin]Levaquin [Levofloxacin]Lisinopril OxycodoneOxycotin [Oxycodone]PenicillinPer cocet [Oxycodone-Acetaminophen ]Polytrim [Polymyxin B Sulf-Trimethoprim]Sulfa (Sulfonamide Antibiotics)Tegretol [Carbamazepine]Vibramyci n [Doxycycline Calcium]Vicodin [Hydrocodone-Acetaminoph en]Adhesive Tape (Rosins)Date Verified: 08/27/18Lab ValuesLab Value Units Date High LowHEMA* 39.7 % 08/27/2018 46.0 36.0Progress Notes ([facility]):Ciarra Isbell, RN, RN 08/17/2018 10:28 AM SignedSpoke to patient to schedule for procedure, pt concerned about not being putunder general anesthesia. Pt made aware we do not give general for theseprocedures, that we do procedural sedation. Spoke to office, aware order is inincorrectly needs to be image guided. Pre procedure instructions were given topt, pt confirmed not on blood thinners. Pt scheduled 08/27 at 930, aware needsto come in early.Progress Notes ([facility]):Cat Degroot LPN 08/17/2018 9:21 AM SignedPatient would like to know what she can take for her headache. She is havingliver issues and certain things she can't take. She is getting a liver [facility]sched[facility] at [facility]. Please advise. She has an apt with you [id number] and needs to have something now. She will discuss further with you atthis apt. Cat Hunter Ma 08/17/2018 2:02 PM SignedHad to call patient to make an appointment and she states that she would reallylike a phone call regarding her headaches she states they are getting really badto the point where she is about to throw up and she needs to be prescribedsomething for them.Davina Hardin, RN, RN 08/17/2018 4:15 PM SignedPt calling back to voice she is checking on the status of TE below.Mare River III MD 08/17/2018 6:08 PM SignedAt least over the short run she could take Tylenol up to 3000 mg per day, oribuprofen as much as 600 mg 3 times per day as needed for head pain. She mayalso try ice or heat on her neck or headFrank ARBEN River MD, FAAFPSulyn Sky LPN 08/17/2018 6:18 PM SignedPt aware of Provider recommendations, verbalizes understanding.Dayami Sky LPN [facility] Surgical Tissue Examon 08-03 Surgical Tissue Exam Test performed at A [address] [address]YOAQ: BRITNEY MARIE [id number] REQUESTING: MISAEL BULL MDFINAL DIAGNOSIS:A) COLON, RANDOM BIOPSIES - COLONIC MUCOSA WITH NO SIGNIFICANTHISTOPATHOLOG IC CHANGE.B) SMALL BOWEL, TERMINAL ILEUM, BIOPSY - SUPERFICIAL FRAGMENTS OFUNREMARKABLE SMALL BOWEL MUCOSA.C) DUODENUM, SECOND PORTION, BIOPSY - DUODENAL MUCOSA WITH NOSIGNIFICANT HISTOPATHOLOGIC CHANGE.D) STOMACH, ANTRUM, BIOPSY - REACTIVE GASTROPATHY. NEGATIVE FORHELICOBACTER PYLORI (SEE NOTE).NOTE: Immunostain for H. pylori is negative.E) GE JUNCTION, BIOPSY - GLANDULAR MUCOSA WITH NO SIGNIFICANTHISTOPATHOLOG IC CHANGE (SEE NOTE).NOTE: An Alcian blue/PAS stain is negative for intestinal metaplasia.Squamous mucosa is not sampled.OPERATIVE PROCEDURE:Colonoscopy / EGDCLINICAL INFORMATION:Abdominal pain [R10.9], RUQ pain [R10.11], nausea [R11.0]Abd pain, RUQ pain, nauseaGROSS DESCRIPTION:A) Random colon biopsiesReceived in formalin labeled random colon biopsies are multipleirregular-shaped segments of hidalgo-brown soft tissue aggregating to 3.4 x0.3 x 0.2 cm. The specimen is totally submitted in formalin incassette A1. Levels x 3.B) Terminal ileum biopsyReceived in formalin labeled terminal ileum biopsy are twoirregular-shaped segments of hidalgo-brown soft tissue aggregating to 0.5 x0.1 x 0.1 cm. The specimen is totally submitted in formalin in onecassette. Levels x 3.C) Mucosal biopsies 2nd portion of duodenumReceived in formalin labeled mucosal biopsies 2nd portion, duodenum, isan irregular-shaped segment of hidalgo soft tissue measuring 0.5 x 0.3 x0.2 cm. The specimen is totally submitted in formalin in one cassette. Levels x 3.D) AntrumReceived in formalin labeled antrum are two irregular-shaped segmentsof hidalgo-red soft tissue aggregating to 0.6 x 0.2 x 0.1 cm. The specimenis totally submitted in formalin in cassette D. Levels x 3. H.pylori.E) GE junctionReceived in formalin labeled gastroesophageal junction is anirregular-shaped segment of hidalgo-red soft tissue measuring 0.3 x 0.3 x0.2 cm. The specimen is totally submitted in formalin in cassette E1.Levels x 3. AB/PAS. [facility]:anita FLANNERY M.D.,PATHOLOGIST(Electro kenneth signature on file)Signed out: 08/05/2018 13:37PRINTED: 08/05/2018 Page 1 of [address] [facility] Comment on above: Performed By: #### S URG ####[place] [address] CNOVon 02-09-2018 CNOV Office Visit (AGCARDWST) BRITNEY ARCE ([id number]) 1960 F TDate Time Provider Department02/09/18 2:00 PM LAZARO VARGAS During your visit today, we recorded the following information about you: Pulse Blood pressure Weight 94/minute 140/90 85 kgLazaro Vargas MD 02/11/2018 8:52 AM SignedPERTINENT CARDIAC HISTORYASHD - moderate by cathHLHTNDMTobaccoismOSA - CPAPADHERENCE TO GUIDELINESACE-I or ARB for HF with prior LVEFANDlt;40 (NQ 0081) - N/AASA or Plavix for ASHD (NQ 0067) - metBeta madison for ASHD with prior LA or prior LVEFANDlt;40 (NQF 0070) - N/ABeta madison for HF with prior LVEFANDlt;40 (NQ 0083) - N/AACE-I or ARB for ASHD with DM or prior LVEFANDlt;40 (NQ 0066) - N/AStatin therapy for ASHD or FHL or DM - metBMI documented and plan if ANDgt;25 (NQ 0421) - lifestyle recommendation formTobacco use screening and referral (NQ 0028) - lifestyle recommendation formRecommendation for whole food, plant based diet - lifestyle recommendation formCLINICAL IMPRESSION/PLAN:Britney Marie has moderate coronary plaque. She has opportunity to improveher lifestyle. I suggested she add coenzyme Q10. She's been advised to try toget her stress under better control. She may increase her isosorbide astolerated to a maximum of 60 milligrams daily. I've encouraged her to usenitroglycerin liberally for chest discomfort.I asked her to call with follow-up in a few weeks.Laboratory studies are due in next month to determine response to higher dosestatin.I will see her in 6 months or as needed.Written and verbal health teaching given to patient, patient verbalizesunderstanding and agrees with treatment plan.DIAGNOSIS FOR VISIT:[facility] OF PRESENT ILLNESSBritney Marie returns for follow-up of coronary disease and hypertension.She reports that she has had occasional exertional chest discomfort. She hasstopped smoking. She has used no nitroglycerin. She recently underwentangiography with the finding of moderate plaque but no high-grade disease. Shehas not increased isosorbide as suggested.She denies orthopnea. She's had chronic edema. She has had no syncope,palpitations, TIAs, amaurosis or claudication.ALLERGIES:A LLERGIESAllergen Reactions- Latex Rash- Darvocet A500 [Prop* Itching- Darvocet-N 100 [Pro* Itching- Dilaudid [Hydromorp* Other: See Comments Burning sensation over entire body- Ees [Other]- Heparin Analogues Hives, Swelling- Keflex [Cephalexin] Swelling, Itching, Shortness of Breath- Levaquin [Levofloxa* Itching- Lisinopril Other: See Comments flushing- Oxycodone Itching- Oxycotin [Oxycodone] Hives, Swelling, Itching- Penicillin Anaphylaxis 4 years old- Percocet [Oxycodone* Itching- Polytrim [Polymyxin* Swelling, Itching- Sulfa (Sulfonamide * Hives- Tegretol [Carbamaze* Mental Status Change- Vibramycin [Doxycyc* Hives, Itching- Vicodin [Hydrocodon*- Adhesive Tape (Elizabeth* Rash, ItchingCURRENT OUTPATIENT MEDICATIONS:escitalopram oxalate (LEXAPRO) 10 mg tablet Take 1 tablet by mouth once daily.aspirin 325 mg tablet Take 325 mg by mouth one time only.isosorbide mononitrate ER (IMDUR) 30 mg 24 hr tablet Take 1 tablet by mouthonce daily.atorvastatin (LIPITOR) 80 mg tablet Take 1 tablet by mouth once daily.nitroglycerin sublingual (NITROQUICK) 0.4 mg SL tablet Dissolve 1 tablet underthe tongue as needed. FOR CHEST PAIN. IF NO RELIEF CALL 911metoprolol succinate ER (TOPROL XL) 50 mg 24 hr tablet Take 1 tablet by mouthonce daily.hydrOXYzine HCl (ATARAX) 50 mg tablet Take 1 tablet by mouth three times dailyas needed for Anxiety.pantoprazole DR (PROTONIX) 40 mg tablet TAKE 1 TABLET BY MOUTH EVERY DAYloratadine (CLARITIN) 10 mg tablet Take 1 tablet by mouth once daily.Hydrochlorothiazid e 12.5 mg capsule Take 1 capsule by mouth once daily.fluticasone-vilant cheyanne (BREO ELLIPTA) 200-25 mcg/dose inhaler Inhale 1Inhalation as instructed once daily. Inhale one puff once daily. DO NOT CLICKOPEN UNTIL READY FOR DOSEpregabalin (LYRICA) 100 mg capsule Take 1 capsule by mouth three times daily.albuterol HFA (PROAIR HFA) 90 mcg/actuation inhaler Inhale 2 Puffs asinstructed every 4 hours as needed.alendronate (FOSAMAX) 70 mg tablet Take 1 tablet by mouth once each week. Takewith a full glass of water, on an empty stomach; do NOT lie down for 30minutes.promethazine (PHENERGAN) 25 mg tablet Take 1 tablet by mouth four times dailyas needed for Nausea/Vomiting.pantopra zole DR (PROTONIX) 40 mg tablet Take 1 tablet by mouth once daily.morphine SR (MS CONTIN) 15 mg 12 hr tablet Take 15 mg by mouth twice daily asneeded.PHYSICAL EXAMINATION:VITAL SIGNS: BP 140/90 Pulse 94 Wt 187 lb 4.8 oz (85.0kg)Chest: Clear to percussion and auscultation. Trachea is midline. Air entry isequal. Cardiac: Regular rhythm. S1 and S2 are normal. PMI is nondisplaced.There is a soft S4 gallop. Carotids are brisk without bruits. JVP is lessthan 10 cm. Abdomen: Soft and nontender. There are no pulsatile masses orbruits. No liver enlargement. Bowel sounds are active. Extremities: Noedema. Pulses are intact and symmetrical.Angiography was reviewed. Images are not available. There was 40% diffuseplaque in the right coronary. No significant stenosis was noted.Electronically Signed:Lazaro Vargas, [facility] 2017 2:39 PMCC: Mare River III Pablo Vargas MD 02/09/2018 2:40 PM SignedLIFESTYLE CHANGEA healthy lifestyle is the most important component of your overall treatmentplan. Please give serious thought to the following areas and commit to makinglong term changes.EAT A WHOLE FOOD, PLANT BASED DIETThe nutrition your body gets is more important than the medicine you take.What matters most is the overall way you eat. We encourage you to minimize theuse of animal products (which include dairy and all meats except fatty fish)and use whole, unprocessed plant foods to provide your protein, vitamins andother nutrients. We have a lot of information to share with you on this topic. We also hold Shared Medical Appointments, where you can come visit with in the company of other patients and spend over an hour talking aboutthe challenges of changing the way you eat. This is not a ANDquot;dietANDquot;.It is a way of life that you will keep with you.EXERCISE REGULARLYIt is not important to spend hours in the gym, lifting weights and perspiringheavily. A total of 2-3 hours per week of aerobic (causing you to bemoderately short of breath) exercise is sufficient to improve your health.Talk to us before you begin a new exercise program, if you have heart diseaseor experience shortness of breath or chest pain.REDUCE STRESSChronic emotional and physical stress leads to disease. Ways of reducingstress include meditation, visualization, prayer, yoga and other forms ofrelaxation therapy. Consistency is the marroquin. Find a technique that works foryou and do it every day.CULTIVATE RELATIONSHIPSLoneliness and isolation have a major negative impact on health. Seek outothers who can love, care for and nurture you. Avoid hurtful relationships.MAINTAIN IDEAL BODY WEIGHTThe best way to do this is to do all the things above. Our bodies naturallyfind the right weight if we keep moving and feed ourselves the right food. Ifyour BMI is greater than 25, we strongly recommend a referral to a weightmanagement program. Please speak to us or your family physician aboutavailable programs.AVOID NICOTINE IN ALL FORMSThis includes all tobacco products, whether chewed, smoked, vaped, or rubbed onthe skin. Smoking cessation programs, which can make use of tobaccosubstitutes, medications to suppress cravings and behavior management, areavailable. Please contact your family physician about programs in your area.Referring Provider: LAZARO VARGAS [[id number]]Allergies As of Date: 02/09/2018 Noted Allergy ReactionLATEX 10/21/2013 2 - RashDARVOCET A500 (PROPOXYPHENE N-CORRIE*08/05/2017 9 - ItchingDARVOCET-N 100 (PROPOXYPHENE N-AC*12/11/2009 9 - ItchingDILAUDID (HYDROMORPHONE HCL) 08/05/2017 14 - Other: See Comments Comments: Burning sensation over entire bodyEES [Other] 11/24/2005HEPARIN ANALOGUES 06/09/2013 4 - Hives 7 - SwellingKEFLEX (CEPHALEXIN) 08/05/2017 7 - Swelling 9 - Itching 12 - Shortness of BreathLEVAQUIN (LEVOFLOXACIN) 11/10/2013 9 - ItchingLISINOPRIL 01/17/2015 14 - Other: See Comments Comments: flushingOXYCODONE 08/05/2017 9 - ItchingOXYCOTIN (OXYCODONE) 12/11/2009 4 - Hives 7 - Swelling 9 - ItchingPENICILLIN 08/05/2017 10 - Anaphylaxis Comments: 4 years oldPERCOCET (OXYCODONE-ACETAMINOPHEN )12/11/2009 9 - ItchingPOLYTRIM (POLYMYXIN B SULF-TRIMET*03/29/2015 7 - Swelling 9 - ItchingSULFA (SULFONAMIDE ANTIBIOTICS) 11/24/2005 4 - HivesTEGRETOL (CARBAMAZEPINE) 06/04/2015 1 - Mental Status ChangeVIBRAMYCIN (DOXYCYCLINE CALCIUM) 08/05/2017 4 - Hives 9 - ItchingVICODIN (HYDROCODONE-ACETAMINOPH E*11/24/2005DHESIVE TAPE (ROSINS) 03/03/2012 2 - Rash 9 - ItchingDate Reviewed: 02/09/2018Reviewed by: Delfina (Online Journalist) Mony - Fully AssessedReason for Visit: Recheck [92]Primary Visit Diagnosis:Hypertension, essential [I10] Other Visit Diagnosis:ASHD (arteriosclerotic heart disease) [I25.10]Order(s):LIPID PANEL BASIC [SQLIPB] Order #: [id number] FUTURE ALT/SGPT [SQALT] Order #: [id number] FUTURE CK CREATINE KINASE [SQCK] Order #: [id number] FUTURE isosorbide mononitrate ER (IMDUR) 30 mg 24 hr tabletTake 2 tablets by mouth once daily.Disp: 60 tabletRfl: 11 coenzyme Q10 (COQ-10) 100 mg cap capsuleTake 1 capsule by mouth twice daily.Disp: 30 capsuleRfl: 11Prescriptions as of 02/09/2018 Sig: ISOSORBIDE MONONITRATE ER [...] TABLET,EXTE* Take 15 mg by mouth twice octavio*Problem List As Of Date 02/09/2018 Noted Resolved [...] the following areas and commit to making intermediate card tender changes. EAT A WHOLE FOOD, PLANT BASED [...] your family physician about programs in your area.Prescriptions ordered this encounter Disp Refills Start End ISOSORBIDE MONONITRATE ER 30 MG TABL* 60 t* 11 02/09/2018 Route: ORAL Sig: Take 2 tablets by mouth once daily. COENZYME Q10 100 MG CAPSULE 30 c* 11 02/09/2018 Route: ORAL Sig: Take 1 capsule by mouth twice daily.Medications Discontinued During This Encounter isosorbide mononitrate ER (IMDUR) 30* 30 t* 5 01/25/2018 02/09/2018 Class: Print RX Route: ORAL Sig: Take 1 tablet by mouth once daily. Disc: Reason for discontinue is not on file. Status:Closed by LAZARO VARGAS MD on 02/11/18 [facility] PROGRESSon 02-09-2018 PROGRESS HNO ID: [id number]: Lazaro Funes: (none)Author Type: PhysicianType: Progress NotesFiled: 02/11/2018 8:52 AMNote Text:PERTINENT CARDIAC HISTORYASHD - moderate by cathHLHTNDMTobaccoismOSA - CPAPADHERENCE TO GUIDELINESACE-I or ARB for HF with prior LVEF<40 (NQF 0081) - N/AASA or Plavix for ASHD (NQF 0067) - metBeta madison for ASHD with prior LA or prior LVEF<40 (NQF 0070) - N/ABeta [place] for HF with prior LVEF<40 (NQF 0083) - N/AACE-I or ARB for ASHD with DM or prior LVEF<40 (NQF 0066) - N/AStatin therapy for ASHD or FHL or DM - metBMI documented and plan if >25 (NQ 0421) - lifestyle recommendation formTobacco use screening and referral (NQ 0028) - lifestyle recommendationformRecomm endation for whole food, plant based diet - lifestyle recommendationformCLINIC AL IMPRESSION/PLAN:Britney Marie has moderate coronary plaque. She has opportunity toimprove her lifestyle. I suggested she add coenzyme Q10. She's beenadvised to try to get her stress under better control. She may increaseher isosorbide as tolerated to a maximum of 60 milligrams daily. I'veencouraged her to use nitroglycerin liberally for chest discomfort.I asked her to call with follow-up in a few weeks.Laboratory studies are due in next month to determine response to higherdose statin.I will see her in 6 months or as needed.Written and verbal health teaching given to patient, patient verbalizesunderstanding and agrees with treatment plan.DIAGNOSIS FOR VISIT:ASHDHISTORY OF PRESENT ILLNESSBritney Marie returns for follow-up of coronary disease andhypertension.She reports that she has had occasional exertional chest discomfort. Shehas stopped smoking. She has used no nitroglycerin. She recently underwentangiography with the finding of moderate plaque but no high-grade disease.She has not increased isosorbide as suggested.She denies orthopnea. She's had chronic edema. She has had no syncope,palpitations, TIAs, amaurosis or claudication.ALLERGIES:A LLERGIESAllergen Reactions- Latex Rash- Darvocet A500 [Prop* Itching- Darvocet-N 100 [Pro* Itching- Dilaudid [Hydromorp* Other: See Comments Burning sensation over entire body- Ees [Other]- Heparin Analogues Hives, Swelling- Keflex [Cephalexin] Swelling, Itching, Shortness of Breath- Levaquin [Levofloxa* Itching- Lisinopril Other: See Comments flushing- Oxycodone Itching- Oxycotin [Oxycodone] Hives, Swelling, Itching- Penicillin Anaphylaxis 4 years old- Percocet [Oxycodone* Itching- Polytrim [Polymyxin* Swelling, Itching- Sulfa (Sulfonamide * Hives- Tegretol [Carbamaze* Mental Status Change- Vibramycin [Doxycyc* Hives, Itching- Vicodin [Hydrocodon*- Adhesive Tape (Elizabeth* Rash, ItchingCURRENT OUTPATIENT MEDICATIONS:escitalopram oxalate (LEXAPRO) 10 mg tablet Take 1 tablet by mouth oncedaily.aspirin 325 mg tablet Take 325 mg by mouth one time only.isosorbide mononitrate ER (IMDUR) 30 mg 24 hr tablet Take 1 tablet bymouth once daily.atorvastatin (LIPITOR) 80 mg tablet Take 1 tablet by mouth once daily.nitroglycerin sublingual (NITROQUICK) 0.4 mg SL tablet Dissolve 1 tabletunder the tongue as needed. FOR CHEST PAIN. IF NO RELIEF CALL 911metoprolol succinate ER (TOPROL XL) 50 mg 24 hr tablet Take 1 tablet bymouth once daily.hydrOXYzine HCl (ATARAX) 50 mg tablet Take 1 tablet by mouth three timesdaily as needed for Anxiety.pantoprazole DR (PROTONIX) 40 mg tablet TAKE 1 TABLET BY MOUTH EVERY DAYloratadine (CLARITIN) 10 mg tablet Take 1 tablet by mouth once daily.Hydrochlorothiazid e 12.5 mg capsule Take 1 capsule by mouth once daily.fluticasone-vilant cheyanne (BREO ELLIPTA) 200-25 mcg/dose inhaler Inhale 1Inhalation as instructed once daily. Inhale one puff once daily. DO NOTCLICK OPEN UNTIL READY FOR DOSEpregabalin (LYRICA) 100 mg capsule Take 1 capsule by mouth three timesdaily.albuterol HFA (PROAIR HFA) 90 mcg/actuation inhaler Inhale 2 Puffs asinstructed every 4 hours as needed.alendronate (FOSAMAX) 70 mg tablet Take 1 tablet by mouth once each week.Take with a full glass of water, on an empty stomach; do NOT lie down [id number].promethazin e (PHENERGAN) 25 mg tablet Take 1 tablet by mouth four timesdaily as needed for Nausea/Vomiting.pantopra zole DR (PROTONIX) 40 mg tablet Take 1 tablet by mouth once daily.morphine SR (MS CONTIN) 15 mg 12 hr tablet Take 15 mg by mouth twice dailyas needed.PHYSICAL EXAMINATION:VITAL SIGNS: BP 140/90 Pulse 94 Wt 187 lb 4.8 oz (85.0kg)Chest: Clear to percussion and auscultation. Trachea is midline. Airentry is equal. Cardiac: Regular rhythm. S1 and S2 are normal. PMI isnondisplaced. There is a soft S4 gallop. Carotids are brisk withoutbruits. JVP is less than 10 cm. Abdomen: Soft and nontender. There areno pulsatile masses or bruits. No liver enlargement. Bowel sounds areactive. Extremities: No edema. Pulses are intact and symmetrical.Angiography was reviewed. Images are not available. There was 40% diffuseplaque in the right coronary. No significant stenosis was noted.Electronically Signed:Lazaro Vargas, [facility] 2017 2:39 PMCC: Mare River III MD [facility] HISTORY PHYSICALon HISTORY PHYSICAL HNO ID: [id number]: Karan Esquivel'NService: Cardiovascular DiseaseAuthor Type: PhysicianType: HANDPFiled: 01/25/2018 10:13 AMNote Text:UPDATED HANDP PRE-CARDIAC CATHETERIZATIONSERVICE DATE: 01/25/2018SERVICE TIME: 9:15 amPHYSICAL EXAM MUST BE COMPLETED ON ADMISSIONThe History and Physical (completed in the past 30 days) has been reviewedand the patient has been examined. The contents accurately reflect thepatient's condition with the following additions or revisions since theHANDP was completed.Examination indicates no changes.Planned Procedure: Left Heart Cath + Possible PCIPrimary Indication for Procedure: Angina, Stable and CCS class 3High Risk Features: History of Prior CABG: No History of Prior PCI: No Cardiomyopathy: No Anti-ischemic Meds in Past 2 Weeks: Beta blockers and Nitrates Ejection Fraction: Normal a year agoRisk Appropriateness: Angina Class in Past 2 Weeks: Class III - Marked limitation of ordinaryphysical activity Stress Test Results: No stress test performed Cardiogenic Shock: No CHF in Past 2 Weeks: NoHISTORY OF BLEEDING: NoThis HANDP can be found in the Electronic Medical Record dated 01/18/18 by .SIGNATURE: Karan Rabago MD PATIENT NAME: Britney VincentATE: January 25, 2018 : 10:11 AM PAGER: [facility] NURSING PROGon 01-25-2018 NURSING PROG HNO ID: [id number]: Monik QuintanillaRn) JOSÉ ANTONIO Jeffersonervice: (none)Author Type: Registered NurseType: Nursing Progress NoteFiled: 01/25/2018 10:25 AMNote Text: Nursing Progress NotePatient Name: Britney AsencioRN: [id number] Location: [facility] 1020 Pt return to [facility], RIGHT wrist VASC BAND on 2+ radial pulse. Handwarm + cap refill, upper arm also soft. No complaints of pain. Homeinstructions initiated.This note was completed by: Monik Jefferson RN [facility] NURSING PROG HNO ID: [id number]: Mary (Rn) JOSÉ ANTONIO Schulzervice: NursingAuthor Type: Registered NurseType: Nursing Progress NoteFiled: 01/25/2018 8:02 AMNote Text: Nursing Progress NotePatient Name: Britney AsencioRN: [id number] Location: [facility] 0742 - Patient arrived to [place] [address] accompanied by friend, Susan. Patientoriented to room, procedure explained, and sedation teaching initialized.Patient verbalizes that she has been experiencing an anxiety attack [id number], and would like a sedative. RN told patient that would be addressedonce Dr. Dominique sees patient and obtains informed consent. Patientverbalizes understanding.This note was completed by: Mary Schulz RN [facility] OBSOLETEon 01-19-2018 OBSOLETE Refill (AGCARDWST) KRISTI PHELPSBRITNEY ([id number]) 1960 F CHTDate Time Provider Department01/19/18 LAZARO VARGAS AGCARDWST During your visit today, we recorded the following information about you:Arpit Grigsby RN, RN 01/19/2018 1:39 PM SignedIf patient requires taking two 40mg tablets of atorvastatin that would need ramiro prior authorized. If she can take an 80mg tablet please review order, thankyou.Lazaro Vargas MD 01/19/2018 3:30 PM SignedLabs are due.Lazaro Vargas MDThe following approved medication requests have been transmitted electronically.Signed Prescriptions Disp Refills atorvastatin (LIPITOR) 80 mg tablet 90 tablet 3 Sig: Take 1 tablet by mouth once daily. TIFFANIE: No Authorizing Provider: LAZARO VARGAS MDAdam Gilmor, RN, RN 01/19/2018 3:48 PM SignedPatient verbalizes understanding.Allergies As of Date: 01/19/2018 Noted Allergy ReactionLATEX 10/21/2013 2 - RashDARVOCET A500 (PROPOXYPHENE N-CORRIE*08/05/2017 9 - ItchingDARVOCET-N 100 (PROPOXYPHENE N-AC*12/11/2009 9 - ItchingDILAUDID (HYDROMORPHONE (BULK)) 12/11/2009 9 - ItchingDILAUDID (HYDROMORPHONE HCL) 08/05/2017 14 - Other: See Comments Comments: Burning sensation over entire bodyEES [Other] 11/24/2005HEPARIN ANALOGUES 06/09/2013 4 - Hives 7 - SwellingKEFLEX (CEPHALEXIN) 11/24/2005KEFLEX (CEPHALEXIN) 08/05/2017 7 - Swelling 9 - Itching 12 - Shortness of BreathLEVAQUIN (LEVOFLOXACIN) 11/10/2013 9 - ItchingLISINOPRIL 01/17/2015 14 - Other: See Comments Comments: flushingOXYCODONE 08/05/2017 9 - ItchingOXYCOTIN (OXYCODONE) 12/11/2009 4 - Hives 7 - Swelling 9 - ItchingPENICILLIN 08/05/2017 10 - Anaphylaxis Comments: 4 years oldPENICILLINS 11/24/2005 7 - SwellingPERCOCET (OXYCODONE-ACETAMINOPHEN )12/11/2009 9 - ItchingPOLYTRIM (POLYMYXIN B SULF-TRIMET*03/29/2015 7 - Swelling 9 - ItchingSULFA (SULFONAMIDE ANTIBIOTICS) 11/24/2005 4 - HivesTEGRETOL (CARBAMAZEPINE) 06/04/2015 1 - Mental Status ChangeVIBRAMYCIN (DOXYCYCLINE CALCIUM) 08/05/2017 4 - Hives 9 - ItchingVICODIN (HYDROCODONE-ACETAMINOPH E*11/24/2005DHESIVE TAPE (ROSINS) 03/03/2012 2 - Rash 9 - ItchingDate Reviewed: 01/18/2018Reviewed by: Charlene Moncada Ma - Fully AssessedReason for Visit: Refill Request [94]Visit Diagnosis:Hyperlipidemia with target LDL less than 70 [E78.5]Order(s):atorvast atin (LIPITOR) 80 mg tabletTake 1 tablet by mouth once daily.Disp: 90 tabletRfl: 3 LIPID PANEL BASIC [SQLIPB] Order #: [id number] FUTURE ALT/SGPT [SQALT] Order #: [id number] FUTURE CK CREATINE KINASE [SQCK] Order #: [id number] FUTUREPrescriptions as of 01/19/2018 Sig: ATORVASTATIN 80 MG [...] capsule by mouth three* COMPOUNDED PRESCRIPTION CPAP adjustmentdx: obstru* ALBUTEROL SULFATE HFA 90 MCG/* Inhale [...] TABLET,EXTE* Take 15 mg by mouth twice octavio*Problem List As Of Date 01/19/2018 Noted Resolved [...] FOR* Incisional hernia, without obstruction or gangr*INVALID FOR*Prescriptions ordered this encounter Disp Refills Start End ATORVASTATIN 80 MG TABLET 90 t* 3 01/19/2018 Route: ORAL Sig: Take 1 tablet by mouth once daily.Medications Discontinued During This Encounter atorvastatin (LIPITOR) 40 mg tablet 180 * 3 01/18/2018 01/19/2018 Route: ORAL Sig: Take 2 tablets by mouth once daily. Disc: Reason for discontinue is not on file. Status:Closed by ARPIT GRIGSBY on 01/19/18 [facility] Hermelinda 01-18-2018 CNOV Office Visit (AGCARDWST) BRITNEY ARCE ([id number]) 1960 Chanel DavyDate Time Provider Department01/18/18 9:30 AM LAZARO VARGAS During your visit today, we recorded the following information about you: Pulse Blood pressure Weight Height 88/minute 126/86 83.8 kg 1.575 Nguyen Vargas MD 01/18/2018 1:09 PM SignedPERTINENT CARDIAC HISTORYASHD - moderate by cathHLHTNDMTobaccoismOSA - CPAPADHERENCE TO GUIDELINESACE-I or ARB for HF with prior LVEFANDlt;40 (NQF 0081) - N/AASA or Plavix for ASHD (NQF 0067) - metBeta madison for ASHD with prior LA or prior LVEFANDlt;40 (NQF 0070) - N/ABeta [place]ison for HF with prior LVEFANDlt;40 (NQF 0083) - N/AACE-I or ARB for ASHD with DM or prior LVEFANDlt;40 (NQF 0066) - N/AStatin therapy for ASHD or FHL or DM - metBMI documented and plan if ANDgt;25 (NQF 0421) - lifestyle recommendation formTobacco use screening and referral (NQF 0028) - lifestyle recommendation formRecommendation for whole food, plant based diet - lifestyle recommendation formCLINICAL IMPRESSION/PLAN:Britney Marie has accelerated chest discomfort which is very characteristicof ischemic heart disease. Given the progression of symptoms, I recommend weproceed directly with angiography. Prior angiogram reportedly showed moderatecoronary disease.She's been advised to resume metoprolol at 50 milligrams daily. I've encouragedher to continue taking her statin. She has been erratic. She was given a newprescription for sublingual nitroglycerin. I strongly advised her todiscontinue smoking.She's been advised to limit her exercise to activities which do not provokesymptoms. Per her request, angiography will be [facility] at [facility].I will see her on a to be arranged basis. She has been encouraged to return tot emergency department for recurrent symptoms.Written and verbal health teaching given to patient, patient verbalizesunderstanding and agrees with treatment plan.This note was generated using [employer] recognition system, and there may besome incorrect words, spellings, and punctuation that were not noted inchecking the note before saving.DIAGNOSIS FOR VISIT:Chest painASHDHISTORY OF PRESENT ILLNESSBritney Marie returns for problem follow-up visit. She reports being undermore significant stress recently. She has had increase in the frequency andduration of her chest discomfort. Some of it has been quite intense. Itgenerally begins in the left inframammary area and radiates into the leftclavicle and to the back. It is sometimes associated with nausea and milddiaphoresis. She went to the emergency department a few nights ago andadmission was recommended , but declined. She has taken nitroglycerin withrelief of pain. Pattern has accelerated over the last month. She's also hadintermittent episodes of severe headache and is awaiting insurance approval ofa brain CT.She has had minimal chest discomfort at rest. She has noted decreased exercisetolerance. She's had minimal edema. She denies syncope, TIAs, amaurosis andclaudication. She has noted more palpitations.She reports that she discontinued her metoprolol several months ago . She doesnot report any intolerable side effects..ALLERGIES:ALLER GIESAllergen Reactions- Latex Rash- Darvocet A500 [Prop* Itching- Darvocet-N 100 [Pro* Itching- Dilaudid [Hydromorp* Itching- Dilaudid [Hydromorp* Other: See Comments Burning sensation over entire body- Ees [Other]- Heparin Analogues Hives, Swelling- Keflex [Cephalexin]- Keflex [Cephalexin] Swelling, Itching, Shortness of Breath- Levaquin [Levofloxa* Itching- Lisinopril Other: See Comments flushing- Oxycodone Itching- Oxycotin [Oxycodone] Hives, Swelling, Itching- Penicillin Anaphylaxis 4 years old- Penicillins Swelling- Percocet [Oxycodone* Itching- Polytrim [Polymyxin* Swelling, Itching- Sulfa (Sulfonamide * Hives- Tegretol [Carbamaze* Mental Status Change- Vibramycin [Doxycyc* Hives, Itching- Vicodin [Hydrocodon*- Adhesive Tape (Elizabeth* Rash, ItchingCURRENT OUTPATIENT MEDICATIONS:methylPREDNI Solone (MEDROL, ERIC,) 4 mg Dose-Pack Follow dosing instructions,take with food.pantoprazole DR (PROTONIX) 40 mg tablet TAKE 1 TABLET BY MOUTH EVERY DAYhydrOXYzine HCl (ATARAX) 25 mg tablet Take 1 tablet by mouth three times dailyas needed for Anxiety.loratadine (CLARITIN) 10 mg tablet Take 1 tablet by mouth once daily.Hydrochlorothiazid e 12.5 mg capsule Take 1 capsule by mouth once daily.fluticasone-vilant cheyanne (BREO ELLIPTA) 200-25 mcg/dose inhaler Inhale 1Inhalation as instructed once daily. Inhale one puff once daily. DO NOT CLICKOPEN UNTIL READY FOR DOSEpregabalin (LYRICA) 100 mg capsule Take 1 capsule by mouth three times daily.albuterol HFA (PROAIR HFA) 90 mcg/actuation inhaler Inhale 2 Puffs asinstructed every 4 hours as needed.alendronate (FOSAMAX) 70 mg tablet Take 1 tablet by mouth once each week. Takewith a full glass of water, on an empty stomach; do NOT lie down for 30minutes.atorvastatin (LIPITOR) 40 mg tablet Take 2 tablets by mouth once daily.promethazine (PHENERGAN) 25 mg tablet Take 1 tablet by mouth four times dailyas needed for Nausea/Vomiting.nitrogly cerin sublingual (NITROQUICK) 0.4 mg SL tablet Dissolve 1 tablet underthe tongue as needed. FOR CHEST PAIN. IF NO RELIEF CALL 911pantoprazole DR (PROTONIX) 40 mg tablet Take 1 tablet by mouth once daily.morphine SR (MS CONTIN) 15 mg 12 hr tablet Take 15 mg by mouth twice daily asneeded.COMPOUNDED PRESCRIPTION CPAP adjustmentdx: obstructive sleep apneaPAST MEDICAL HISTORYDiagnosis Date- ASHD (arteriosclerotic heart disease) 10/14/2011- Cervical disc disorder 03/13/2011- Cocaine substance abuse 2003- COPD (chronic obstructive pulmonary disease) (HCC)- Degenerative disc disease, cervical 12/04/2010- Depression 12/04/2010- Dysmetabolic syndrome X 01/21/2011- Erosive esophagitis 09/04/2014- Esophageal reflux Gastroesophageal reflux- Essential hypertension, benign 09/09/2010 no meds currently 03/26- Fibrocystic breast changes, bilateral 01/28/2017- Hyperlipidemia LDL goal ANDlt; 130 12/04/2010- Hyperlipidemia LDL goal ANDlt; 70 10/14/2011- Migraine headache 01/23/2012- Non morbid obesity due to excess calories 08/29/2016- Obstructive sleep apnea- Osteoporosis 03/13/2011- Peptic ulcer, unspecified site, unspecified as acute or chronic, withoutmention of hemorrhage, perforation, or obstruction Peptic ulcer disease- Tobacco abuse 01/23/2012- Trigeminal neuralgia 12/29/2013- Trigeminal neuralgia of right side of face 05/03/2015- Vitamin D deficiency 03/19/2011PAST SURGICAL HISTORYProcedure Laterality Date- ANTERIOR INTERBODY FUSION, CERVICAL 1992- APPENDECTOMY- CHOLECYSTECTOMY- COLONOSCOP W/ OR W/O BRSH SPEC 04/30/2010 Dr. Rayshawn Shrestha- COLONOSCOP W/ OR W/O BRSH SPEC 08/10/13 Colonoscopy- EGD W/O OR W/BRUSH/WASH 08/10/13 EGD- LAPAROSCOPY, SURGICAL, ESOPHAGOGAST 01-25-10 LAP KAMILA- LEFT HEART CATH,PERCUTANEOUS 12/17/11 Cardiac cath, L heart, see scanned report- Tonsilectomy- TUBAL LIGATION,- XR CERVICAL FUSION OR 1997 posterior fusionFAMILY HISTORYProblem Relation Age of Onset- Heart Father 35- Cancer Father- Cancer Mother- Breast Cancer Paternal Grandmother- Breast Cancer Paternal Aunt- Cancer Maternal Uncle LUNG- Heart Maternal GrandmotherSocial History Marital status: Spouse name: Years of education: Number of children: 3Occupational HistoryOccupation Employer CommentDISABLEDSocial History Main Topics Smoking status: Current Every Day Smoker Packs/day: 0.25 Years: 45.00 Types: Cigarettes Smokeless status: Never Used Comment: trying to quit Alcohol use: No Drug use: No Comment: none since 06/2005/cocaine abuse Sexual activity: Not Currently Partners with: MaleREVIEW OF SYSTEMS: General: No chills, fever, weight loss, night sweats.Respiratory: No productive cough. Cardiac: As noted above. GI: No melena.: No dysuria. Musculoskeletal: No myalgias.PHYSICAL EXAMINATION: S/he is alert and in no distress.VITAL SIGNS: BP 126/86 Pulse 88 Ht 5' 2ANDquot; (1.58m) Wt 184 lb 12.8 oz(83.8kg) BMI 33.79 kg/(m2).SHEENT: Skin is warm and dry. No xanthelasmas appreciated. Pharynx isbenign. There is no oral cyanosis. Neck: supple. No adenopathy or thyroidenlargement. Chest: Clear to percussion and auscultation. Trachea is midline. Air entry is equal. There is no chest wall tenderness. Cardiac: Regularrhythm. S1 and S2 are normal. PMI is nondisplaced. There is a soft B9oscavu.. No click is heard. Carotids are brisk without bruits. JVP is lessthan 10 cm. Abdomen: Soft and nontender. There are no pulsatile masses orbruits. No liver enlargement. Bowel sounds are active. Extremities: Noedema. Pulses are intact and symmetrical. No clubbing or cyanosis. Nofemoral bruits. Neurologic: Grossly normal motor and sensory. S/he is alertand oriented x4.Recent EKG showed diffuse ST depression of a mild degree, during chestdiscomfort. With resolution of pain, ST segment depression resolved. There isno evidence of acute coronary syndrome. She signed out AMA. She was noted tohave leukocytosis but no reported symptoms of infection.Echocardiogram from last year was reviewed. She has bilateral carotid diseasewhich has been stable.Electronically Signed:Lazaro Vargas, [facility] 2017 10:05 [facility]:Mare River III MDReferring Provider: MARE RIVER III [[id number]]Allergies As of Date: 01/18/2018 Noted Allergy ReactionLATEX 10/21/2013 2 - RashDARVOCET A500 (PROPOXYPHENE N-CORRIE*08/05/2017 9 - ItchingDARVOCET-N 100 (PROPOXYPHENE N-AC*12/11/2009 9 - ItchingDILAUDID (HYDROMORPHONE (BULK)) 12/11/2009 9 - ItchingDILAUDID (HYDROMORPHONE HCL) 08/05/2017 14 - Other: See Comments Comments: Burning sensation over entire bodyEES [Other] 11/24/2005HEPARIN ANALOGUES 06/09/2013 4 - Hives 7 - SwellingKEFLEX (CEPHALEXIN) 11/24/2005KEFLEX (CEPHALEXIN) 08/05/2017 7 - Swelling 9 - Itching 12 - Shortness of BreathLEVAQUIN (LEVOFLOXACIN) 11/10/2013 9 - ItchingLISINOPRIL 01/17/2015 14 - Other: See Comments Comments: flushingOXYCODONE 08/05/2017 9 - ItchingOXYCOTIN (OXYCODONE) 12/11/2009 4 - Hives 7 - Swelling 9 - ItchingPENICILLIN 08/05/2017 10 - Anaphylaxis Comments: 4 years oldPENICILLINS 11/24/2005 7 - SwellingPERCOCET (OXYCODONE-ACETAMINOPHEN )12/11/2009 9 - ItchingPOLYTRIM (POLYMYXIN B SULF-TRIMET*03/29/2015 7 - Swelling 9 - ItchingSULFA (SULFONAMIDE ANTIBIOTICS) 11/24/2005 4 - HivesTEGRETOL (CARBAMAZEPINE) 06/04/2015 1 - Mental Status ChangeVIBRAMYCIN (DOXYCYCLINE CALCIUM) 08/05/2017 4 - Hives 9 - ItchingVICODIN (HYDROCODONE-ACETAMINOPH E*11/24/2005DHESIVE TAPE (ROSINS) 03/03/2012 2 - Rash 9 - ItchingDate Reviewed: 01/18/2018Reviewed by: Olga Lidia Cardenas - Fully AssessedReason for Visit: Follow Up [171]Primary Visit Diagnosis:Chest pain, unspecified type [R07.9] Other Visit Diagnoses:Hypertension, essential [I10] Other hyperlipidemia [E78.4] Hyperlipidemia with target LDL less than 70 [E78.5]Order(s):LEFT HEART CATH,PERCUTANEOUS [14397GLW] Order #: [id number]: 1 CBC [SQCBC] Order #: [id number] FUTURE atorvastatin (LIPITOR) 40 mg tabletTake 2 [...] tabletRfl: 12 PROTHROMBIN TIME/PT [SQPT] Order #: [id number] FUTUREPrescriptions as of 01/18/2018 Sig: ATORVASTATIN 40 MG [...] by mouth once d* COMPOUNDED PRESCRIPTION CPAP adjustmentdx: obstru*Problem List As Of Date 01/18/2018 Noted Resolved [...] FOR* Incisional hernia, without obstruction or gangr*INVALID FOR*Prescriptions ordered this encounter Disp Refills Start End [...] Sig: Take 1 tablet by mouth once daily.Medications Discontinued During This Encounter atorvastatin (LIPITOR) 40 [...] Reason for discontinue is not on file. Status:Closed by LAZARO VARGAS MD on 01/18/18 [facility] CNPNon 01-18-2018 CNPN Telephone (AGCARDPOB) KRISTI PHELPSBRITNEY ([id number]) 1960 F CHTDate Time Provider Department01/18/18 ARETHA DOMINIQUE AGCARDPOB During your visit today, we recorded the following information about you:Chicho Morales RN 01/18/2018 1:22 PM AddendumDr Vargas office calls to request pt be scheduled for heart cath. I called pt.Agreeable to schedule. Placed on dr Dominique's 01/25/18 outpt schedule per ptrequest. Instructions reviewed including arrival to [facility] Entr[facility] 3/12AM according to the time recommended by staff on 3/9 pm. NPO after MN. Pt willtake ASA 325mg along with usual AM HCTZ. She will take inhalers if needed.Questions answered. Pt voices understanding. 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 Will auth,Allergies As of Date: 01/18/2018 Noted Allergy ReactionLATEX 10/21/2013 2 - RashDARVOCET A500 (PROPOXYPHENE N-CORRIE*08/05/2017 9 - ItchingDARVOCET-N 100 (PROPOXYPHENE N-AC*12/11/2009 9 - ItchingDILAUDID (HYDROMORPHONE (BULK)) 12/11/2009 9 - ItchingDILAUDID (HYDROMORPHONE HCL) 08/05/2017 14 - Other: See Comments Comments: Burning sensation over entire bodyEES [Other] 11/24/2005HEPARIN ANALOGUES 06/09/2013 4 - Hives 7 - SwellingKEFLEX (CEPHALEXIN) 11/24/2005KEFLEX (CEPHALEXIN) 08/05/2017 7 - Swelling 9 - Itching 12 - Shortness of BreathLEVAQUIN (LEVOFLOXACIN) 11/10/2013 9 - ItchingLISINOPRIL 01/17/2015 14 - Other: See Comments Comments: flushingOXYCODONE 08/05/2017 9 - ItchingOXYCOTIN (OXYCODONE) 12/11/2009 4 - Hives 7 - Swelling 9 - ItchingPENICILLIN 08/05/2017 10 - Anaphylaxis Comments: 4 years oldPENICILLINS 11/24/2005 7 - SwellingPERCOCET (OXYCODONE-ACETAMINOPHEN )12/11/2009 9 - ItchingPOLYTRIM (POLYMYXIN B SULF-TRIMET*03/29/2015 7 - Swelling 9 - ItchingSULFA (SULFONAMIDE ANTIBIOTICS) 11/24/2005 4 - HivesTEGRETOL (CARBAMAZEPINE) 06/04/2015 1 - Mental Status ChangeVIBRAMYCIN (DOXYCYCLINE CALCIUM) 08/05/2017 4 - Hives 9 - ItchingVICODIN (HYDROCODONE-ACETAMINOPH E*11/24/2005DHESIVE TAPE (ROSINS) 03/03/2012 2 - Rash 9 - ItchingDate Reviewed: 01/18/2018Reviewed by: Charlene Moncada Ma - Fully AssessedReason for Visit: Preparations For Procedures [899]Prescriptions as of 01/18/2018 Sig: ATORVASTATIN 40 MG TABLET Take 2 tablets by mouth once * NITROGLYCERIN 0.4 MG SUBLINGU* Dissolve 1 tablet under the t* METOPROLOL SUCCINATE ER 50 MG* Take 1 tablet by mouth once d* METHYLPREDNISOLONE 4 MG TABLE* Follow dosing instructions, t* PANTOPRAZOLE 40 MG TABLET,DEL* TAKE 1 TABLET BY MOUTH EVERY *X HYDROXYZINE HCL 25 MG TABLET Take 1 tablet by mouth three * LORATADINE 10 MG TABLET Take 1 tablet by mouth once d* HYDROCHLOROTHIAZIDE 12.5 MG C* Take 1 capsule by mouth once * FLUTICASONE 200 MCG-VILANTERO* Inhale 1 Inhalation as instru* PREGABALIN 100 MG CAPSULE Take 1 capsule by mouth three* COMPOUNDED PRESCRIPTION CPAP adjustmentdx: obstru* ALBUTEROL SULFATE HFA 90 MCG/* Inhale [...] TABLET,EXTE* Take 15 mg by mouth twice octavio*Problem List As Of Date 01/18/2018 Noted Resolved [...] Incisional hernia, without obstruction or gangr*INVALID FOR* Status:Closed by CHICHO MORALES on 01/18/18 [facility] HOSPon 01-18-2018 HOSP Patient:Candida Marie ra ULRICHRN: Height:5' 2(1.575 m)Weight:183 lb 12.8 oz (83.371 kg)Outpatient Medications as of 01/25/18:aspirin 325 mg tabletatorvastatin (LIPITOR) 80 mg tabletnitroglycerin sublingual (NITROQUICK) 0.4 mg SL tabletmetoprolol succinate ER (TOPROL XL) 50 mg 24 hr tablethydrOXYzine HCl (ATARAX) 50 mg tabletloratadine (CLARITIN) 10 mg tabletHydrochlorothiazid e 12.5 mg capsulefluticasone-vilan terol (BREO ELLIPTA) 200-25 mcg/dose inhaleralbuterol HFA (PROAIR HFA) 90 mcg/actuation inhaleralendronate (FOSAMAX) [address] (PROTONIX) 40 mg tabletmorphine SR (MS CONTIN) 15 mg [address] (PROTONIX) 40 mg tabletpregabalin (LYRICA) 100 mg capsuleCOMPOUNDED PRESCRIPTIONpromethazine (PHENERGAN) 25 mg tabletAdmission/Clinic Administered Medications as of 01/25/18:NaCl 0.9% iv infusionProblem List:Essential hypertension, benign [I10]Degenerative disc disease, cervical [M50.30]Depression [F32.9]Dysmetabolic syndrome X [E88.81]Osteoporosis [M81.0]Cervical disc disorder [M50.90]Vitamin D deficiency [E55.9]Hyperlipidemia with target LDL less than 70 [E78.5]ASHD (arteriosclerotic heart disease) [I25.10]Tobacco abuse [Z72.0]Tobacco abuse counseling [Z71.6]Migraine headache [G43.909]SUMMARY [V999.95]Asthma [J45.909]Elevated gastrin level [E16.4]Flushing [R23.2]Trigeminal neuralgia [G50.0]Erosive esophagitis [K22.10]Spontaneous ecchymoses [R23.3]Lumbar back pain with radiculopathy affecting left lower extremity [M54.17]Arteriosclerosis of carotid artery [I65.29]MELYSSA (obstructive sleep apnea) [G47.33]Trigeminal neuralgia of right side of face [G50.0]Obesity (BMI 30-39.9) [E66.9]Grief [F43.20]Other seasonal allergic rhinitis [J30.2]Anxiety and depression [F41.8]Sense of smell altered [R43.9]Nonintractable headache [R51]Non morbid obesity due to excess calories [E66.09]Fibrocystic breast changes, bilateral [N60.11, N60.12]Orthostatic hypotension [I95.1]Moderate episode of recurrent major depressive disorder (HCC) [F33.1]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]Incisional hernia, without obstruction or gangrene [K43.2]Allergies:LatexDa rvocet A500 [Propoxyphene N-Acetaminophen]Darvocet -N 100 [Propoxyphene N-Acetaminophen]Dilaudid [Hydromorphone Hcl]EES [Other]Heparin AnaloguesKeflex [Cephalexin]Levaquin [Levofloxacin]Lisinopril OxycodoneOxycotin [Oxycodone]PenicillinPer cocet [Oxycodone-Acetaminophen ]Polytrim [Polymyxin B Sulf-Trimethoprim]Sulfa (Sulfonamide Antibiotics)Tegretol [Carbamazepine]Vibramyci n [Doxycycline Calcium]Vicodin [Hydrocodone-Acetaminoph en]Adhesive Tape (Rosins)Date Verified: 01/25/18Lab ValuesLab Value Units Date High LowPOTA* 4.1 mmol/L 01/07/2018 5.1 3.7HEMA* 43.0 % 01/22/2018 46.0 36.0Progress Notes ([facility]ZDALLASDavid):Arpit Grigsby, RN, RN 01/19/2018 1:39 PM SignedIf patient requires taking two 40mg tablets of atorvastatin that would need ramiro prior authorized. If she can take an 80mg tablet please review order, thankyou.Lazaro Vargas MD 01/19/2018 3:30 PM SignedLabs are due.Lazaro Vargas MDThe following approved medication requests have been transmitted electronically.Signed Prescriptions Disp Refills atorvastatin (LIPITOR) 80 mg tablet 90 tablet 3 Sig: Take 1 tablet by mouth once daily. TIFFANIE: No Authorizing Provider: LAZARO VARGAS MDAdam Gilmor, RN, RN 01/19/2018 3:48 PM SignedPatient verbalizes understanding.Progress Notes ([facility]):Chicho Morales RN 01/18/2018 1:22 PM AddendumDr Vargas office calls to request pt be scheduled for heart cath. I called pt.Agreeable to schedule. Placed on dr Dominique's 01/25/18 outpt schedule per ptrequest. Instructions reviewed including arrival to [facility] Entr[facility] 312 AMaccording to the time recommended by staff on 3/9 pm. NPO after MN. Pt will takeASA 325mg along with usual AM HCTZ. She will take inhalers if needed. Questionsanswered. Pt voices understanding. 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 Will auth, [facility] PROGRESSon 01-18-2018 PROGRESS HNO ID: [id number]: Lazaro VargasService: (none)Author Type: PhysicianType: Progress NotesFiled: 01/18/2018 1:09 PMNote Text:PERTINENT CARDIAC HISTORYASHD - moderate by cathHLHTNDMTobaccoismOSA - CPAPADHERENCE TO GUIDELINESACE-I or ARB for HF with prior LVEF<40 (NQF 0081) - N/AASA or Plavix for ASHD (NQF 0067) - metBeta madison for ASHD with prior LA or prior LVEF<40 (NQF 0070) - N/ABeta [place] for HF with prior LVEF<40 (NQF 0083) - N/AACE-I or ARB for ASHD with DM or prior LVEF<40 (NQF 0066) - N/AStatin therapy for ASHD or FHL or DM - metBMI documented and plan if >25 (NQF 0421) - lifestyle recommendation formTobacco use screening and referral (NQ 0028) - lifestyle recommendationformRecomm endation for whole food, plant based diet - lifestyle recommendationformCLINIC AL IMPRESSION/PLAN:Britney Marie has accelerated chest discomfort which is verycharacteristic of ischemic heart disease. Given the progression ofsymptoms, I recommend we proceed directly with angiography. Priorangiogram reportedly showed moderate coronary disease.She's been advised to resume metoprolol at 50 milligrams daily. I'veencouraged her to continue taking her statin. She has been erratic. Shewas given a new prescription for sublingual nitroglycerin. I stronglyadvised her to discontinue smoking.She's been advised to limit her exercise to activities which do notprovoke symptoms. Per her request, angiography will be arranged at [facility].I will see her on a to be arranged basis. She has been encouraged toreturn to the emergency department for recurrent symptoms.Written and verbal health teaching given to patient, patient verbalizesunderstanding and agrees with treatment plan.This note was generated using [employer] voice recognition system, and theremay be some incorrect words, spellings, and punctuation that were notnoted in checking the note before saving.DIAGNOSIS FOR VISIT:Chest painASHDHISTORY OF PRESENT ILLNESSBritney Marie returns for problem follow-up visit. She reports beingunder more significant stress recently. She has had increase in thefrequency and duration of her chest discomfort. Some of it has been quiteintense. It generally begins in the left inframammary area and radiatesinto the left clavicle and to the back. It is sometimes associated withnausea and mild diaphoresis. She went to the emergency department a fewnights ago and admission was recommended , but declined. She has takennitroglycerin with relief of pain. Pattern has accelerated over the lastmonth. She's also had intermittent episodes of severe headache and isawaiting insurance approval of a brain CT.She has had minimal chest discomfort at rest. She has noted decreasedexercise tolerance. She's had minimal edema. She denies syncope, TIAs,amaurosis and claudication. She has noted more palpitations.She reports that she discontinued her metoprolol several months ago . Shedoes not report any intolerable side effects..ALLERGIES:ALLER GIESAllergen Reactions- Latex Rash- Darvocet A500 [Prop* Itching- Darvocet-N 100 [Pro* Itching- Dilaudid [Hydromorp* Itching- Dilaudid [Hydromorp* Other: See Comments Burning sensation over entire body- Ees [Other]- Heparin Analogues Hives, Swelling- Keflex [Cephalexin]- Keflex [Cephalexin] Swelling, Itching, Shortness of Breath- Levaquin [Levofloxa* Itching- Lisinopril Other: See Comments flushing- Oxycodone Itching- Oxycotin [Oxycodone] Hives, Swelling, Itching- Penicillin Anaphylaxis 4 years old- Penicillins Swelling- Percocet [Oxycodone* Itching- Polytrim [Polymyxin* Swelling, Itching- Sulfa (Sulfonamide * Hives- Tegretol [Carbamaze* Mental Status Change- Vibramycin [Doxycyc* Hives, Itching- Vicodin [Hydrocodon*- Adhesive Tape (Elizabeth* Rash, ItchingCURRENT OUTPATIENT MEDICATIONS:methylPREDNI Solone (MEDROL, ERIC,) 4 mg Dose-Pack Follow dosinginstructions, take with food.pantoprazole DR (PROTONIX) 40 mg tablet TAKE 1 TABLET BY MOUTH EVERY DAYhydrOXYzine HCl (ATARAX) 25 mg tablet Take 1 tablet by mouth three timesdaily as needed for Anxiety.loratadine (CLARITIN) 10 mg tablet Take 1 tablet by mouth once daily.Hydrochlorothiazid e 12.5 mg capsule Take 1 capsule by mouth once daily.fluticasone-vilant cheyanne (BREO ELLIPTA) 200-25 mcg/dose inhaler Inhale 1Inhalation as instructed once daily. Inhale one puff once daily. DO NOTCLICK OPEN UNTIL READY FOR DOSEpregabalin (LYRICA) 100 mg capsule Take 1 capsule by mouth three timesdaily.albuterol HFA (PROAIR HFA) 90 mcg/actuation inhaler Inhale 2 Puffs asinstructed every 4 hours as needed.alendronate (FOSAMAX) 70 mg tablet Take 1 tablet by mouth once each week.Take with a full glass of water, on an empty stomach; do NOT lie down [id number].atorvastati n (LIPITOR) 40 mg tablet Take 2 tablets by mouth once daily.promethazine (PHENERGAN) 25 mg tablet Take 1 tablet by mouth four timesdaily as needed for Nausea/Vomiting.nitrogly cerin sublingual (NITROQUICK) 0.4 mg SL tablet Dissolve 1 tabletunder the tongue as needed. FOR CHEST PAIN. IF NO RELIEF CALL 911pantoprazole DR (PROTONIX) 40 mg tablet Take 1 tablet by mouth once daily.morphine SR (MS CONTIN) 15 mg 12 hr tablet Take 15 mg by mouth twice dailyas needed.COMPOUNDED PRESCRIPTION CPAP adjustmentdx: obstructive sleep apneaPAST MEDICAL HISTORYDiagnosis Date- ASHD (arteriosclerotic heart disease) 10/14/2011- Cervical disc disorder 03/13/2011- Cocaine substance abuse 2003- COPD (chronic obstructive pulmonary disease) (HCC)- Degenerative disc disease, cervical 12/04/2010- Depression 12/04/2010- Dysmetabolic syndrome X 01/21/2011- Erosive esophagitis 09/04/2014- Esophageal reflux Gastroesophageal reflux- Essential hypertension, benign 09/09/2010 no meds currently 03/26- Fibrocystic breast changes, bilateral 01/28/2017- Hyperlipidemia LDL goal < 130 12/04/2010- Hyperlipidemia LDL goal < 70 10/14/2011- Migraine headache 01/23/2012- Non morbid obesity due to excess calories 08/29/2016- Obstructive sleep apnea- Osteoporosis 03/13/2011- Peptic ulcer, unspecified site, unspecified as acute or chronic, withoutmention of hemorrhage, perforation, or obstruction Peptic ulcer disease- Tobacco abuse 01/23/2012- Trigeminal neuralgia 12/29/2013- Trigeminal neuralgia of right side of face 05/03/2015- Vitamin D deficiency 03/19/2011PAST SURGICAL HISTORYProcedure Laterality Date- ANTERIOR INTERBODY FUSION, CERVICAL 1992- APPENDECTOMY- CHOLECYSTECTOMY- COLONOSCOP W/ OR W/O BRSH SPEC 04/30/2010 Dr. Rayshawn Shrestha- COLONOSCOP W/ OR W/O [email or web address] SPEC 08/10/13 Colonoscopy- EGD W/O OR W/BRUSH/WASH 08/10/13 EGD- LAPAROSCOPY, SURGICAL, ESOPHAGOGAST 01-25-10 LAP KAMILA- LEFT HEART CATH,PERCUTANEOUS 12/17/11 Cardiac cath, L heart, see scanned report- Tonsilectomy- TUBAL LIGATION,- XR CERVICAL FUSION OR 1998 posterior fusionFAMILY HISTORYProblem Relation Age of Onset- Heart Father 35- Cancer Father- Cancer Mother- Breast Cancer Paternal Grandmother- Breast Cancer Paternal Aunt- Cancer Maternal Uncle LUNG- Heart Maternal GrandmotherSocial History Marital status: Spouse name: Years of education: Number of children: 3Occupational HistoryOccupation Employer CommentDISABLEDSocial History Main Topics Smoking status: Current Every Day Smoker Packs/day: 0.25 Years: 45.00 Types: Cigarettes Smokeless status: Never Used Comment: trying to quit Alcohol use: No Drug use: No Comment: none since 06/2005/cocaine abuse Sexual activity: Not Currently Partners with: MaleREVIEW OF SYSTEMS: General: No chills, fever, weight loss, night sweats. Respiratory: No productive cough. Cardiac: As noted above. GI: Nomelena. : No dysuria. Musculoskeletal: No myalgias.PHYSICAL EXAMINATION: S/he is alert and in no distress.VITAL SIGNS: BP 126/86 Pulse 88 Ht 5' 2 (1.58m) Wt 184 lb 12.8 oz(83.8kg) BMI 33.79 kg/(m2).SHEENT: Skin is warm and dry. No xanthelasmas appreciated. Pharynx isbenign. There is no oral cyanosis. Neck: supple. No adenopathy orthyroid enlargement. Chest: Clear to percussion and auscultation.Trachea is midline. Air entry is equal. There is no chest walltenderness. Cardiac: Regular rhythm. S1 and S2 are normal. PMI isnondisplaced. There is a soft S4 gallop.. No click is heard. Carotidsare brisk without bruits. JVP is less than 10 cm. Abdomen: Soft andnontender. There are no pulsatile masses or bruits. No liverenlargement. Bowel sounds are active. Extremities: No edema. Pulsesare intact and symmetrical. No clubbing or cyanosis. No femoral bruits.Neurologic: Grossly normal motor and sensory. S/he is alert and orientedx4.Recent EKG showed diffuse ST depression of a mild degree, during chestdiscomfort. With resolution of pain, ST segment depression resolved. Thereis no evidence of acute coronary syndrome. She signed out AMA. She wasnoted to have leukocytosis but no reported symptoms of infection.Echocardiogram from last year was reviewed. 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 [address] [place] [address], [place] [id number] Ms. Marie,We are pleased to inform you that the results of your recent breastimaging exam on 10/09/2017 are normal and we recommend that you return toyour annual screening Mammography schedule. Early detection of cancer isvery important. We also understand recommendations regarding breast cancer screening are controversial. Please discuss with your primary careprovider which strategy is best for you and whether a mammogram is rightfor you.Your imaging studies and report will be kept on file at [facility] part of your permanent medical record and are available for yourcontinuing care.Thank you for allowing us to help in meeting your health care needs.Sincerely,Dr. AlegriaInterpreting [facility] (Returnto Annual Mammogram schedule) [facility] HNO ID: [id number]: Mammography CoordinatorService: (none)Author Type: PhysicianType: LetterFiled: 10/12/2017 11:32 PMNote Text:October 09, 2017 PID: [id number] J. [id number] [id number] Ms. Marie,We are pleased to inform you that the results of your recent breastimaging exam on 10/09/2017 are normal and we recommend that you return toyour annual screening Mammography schedule. Early detection of cancer isvery important. We also understand recommendations regarding breast cancer screening are controversial. Please discuss with your primary careprovider which strategy is best for you and whether a mammogram is rightfor you.Your imaging studies and report will be kept on file at [facility] part of your permanent medical record and are available for yourcontinuing care.Thank you for allowing us to help in meeting your health care needs.Sincerely,Dr. AlegriaInterpreting [facility] (Returnto Annual Mammogram schedule) Normal [facility] DIAGNOSTIC LTon 10-09-20 [facility] DI[facility]IC LT * * *Final Report* * *DATE OF EXAM: Oct 09 2017 1:46PM [id number] - [facility] DIAGNOSTIC LT / REASON: R92.8-Other abnormal and inconclusive findings on diagnostic imaging of breast * * * * Physician Interpretation * * * * #[id number] - [facility] DIAGNOSTIC LTUNILATERAL LEFT DIGITAL DIAGNOSTIC MAMMOGRAM WITH CAD: 10/09/2017HISTORY: R92.8-Other Abnormal And Inconclusive Findings On Diagnostic Imaging Of Breast /Short term follow up left breast-Abnormal Mammogram.RESULT:TECHNIQ UE: The study was acquired using full field digital technology and interpreted from soft copy.Current study was also evaluated with a Computer Aided Detection (CAD).Comparison is made to exams dated: 01/19/2017 mammogram - [facility], 01/06/2017 mammogram, 11/05/2015 mammogram, and 08/21/2014 mammogram - [facility].The tissue of the left breast is heterogeneously dense. This may lower the sensitivity of mammography.There is an asymmetry in the left breast at 1 o'clock anterior depth.There also is an asymmetry in the left breast middle depth inferior region seen on the mediolateral oblique view only.No other significant masses or calcifications are seen in the breast.INCOMPLETE: NEEDS ADDITIONAL IMAGING EVALUATIONThe asymmetry in the left breast at 1 o'clock anterior depth is indeterminate. An ultrasound is recommended.The asymmetry in the left breast middle depth inferior region seen on the mediolateral oblique view only is indeterminate. An ultrasound is recommended.#[id number] - [facility] US BREAST LTD LTULTRASOUND OF LEFT BREAST: 10/09/2017RESULT:Compari son is made to exams dated: 01/19/2017 mammogram - [facility], 01/06/2017 mammogram, 11/05/2015 mammogram, and 08/21/2014 mammogram - [facility].Ultrasound of the left breast was performed. Merchant scale images of the real-time examination were reviewed.There are multiple benign 6 mm cysts in the left breast superior lateral quadrant anterior depth. These correlate with mammography findings.There also is a benign 9 mm x 4 mm irregular lesion in the left breast at 5 o'clock anterior depth. This irregular lesion is of mixed echogenicity. This correlates with mammography findings.IMPRESSION: BENIGN FINDINGThere is no sonographic evidence of malignancy.The multiple 6 mm cysts in the left breast superior lateral quadrant anterior depth are benign.The 9 mm x 4 mm irregular lesion in the left breast at 5 o'clock anterior depth most likely is complex cysts and is benign.Return to annual mammogram screening schedule is recommended.Shimon López/amalia:10/09/2017 14:36:14Imaging Technologist: Lety CALVERT(Manda)(Sandeep), [facility] Return to Annual OVERALL STUDY BIRADS: 2 Benign findingTranscriptionist: Spencer Date/Time: Oct 09 2017 1:27PDictated by : Irina ARAMBULA examination was interpreted and the report reviewed and electronically signed by: SHIMON ALEGRIA DO on Oct 09 2017 2:36PM [id number] N Normal [facility] [employer] US BREAST LTD LTon 10-09 [facility] Doyenz BREAST LTD LT * * *Final Report* * *DATE OF EXAM: Oct 09 2017 2:11PM [id number] - [facility] US BREAST LTD LT / REASON: R92.8-Other abnormal and inconclusive findings on diagnostic imaging of breast * * * * Physician Interpretation * * * * #[id number] - [facility] DIAGNOSTIC LTUNILATERAL LEFT DIGITAL DIAGNOSTIC MAMMOGRAM WITH CAD: 10/09/2017HISTORY: R92.8-Other Abnormal And Inconclusive Findings On Diagnostic Imaging Of Breast /Short term follow up left breast-Abnormal Mammogram.RESULT:TECHNIQ UE: The study was acquired using full field digital technology and interpreted from soft copy.Current study was also evaluated with a Computer Aided Detection (CAD).Comparison is made to exams dated: 01/19/2017 mammogram - [facility], 01/06/2017 mammogram, 11/05/2015 mammogram, and 08/21/2014 mammogram - [facility].The tissue of the left breast is heterogeneously dense. This may lower the sensitivity of mammography.There is an asymmetry in the left breast at 1 o'clock anterior depth.There also is an asymmetry in the left breast middle depth inferior region seen on the mediolateral oblique view only.No other significant masses or calcifications are seen in the breast.INCOMPLETE: NEEDS ADDITIONAL IMAGING EVALUATIONThe asymmetry in the left breast at 1 o'clock anterior depth is indeterminate. An ultrasound is recommended.The asymmetry in the left breast middle depth inferior region seen on the mediolateral oblique view only is indeterminate. An ultrasound is recommended.#[id number] - [facility] US BREAST LTD LTULTRASOUND OF LEFT BREAST: 10/09/2017RESULT:Compari son is made to exams dated: 01/19/2017 mammogram - [facility], 01/06/2017 mammogram, 11/05/2015 mammogram, and 08/21/2014 mammogram - [facility].Ultrasound of the left breast was performed. Merchant scale images of the real-time examination were reviewed.There are multiple benign 6 mm cysts in the left breast superior lateral quadrant anterior depth. These correlate with mammography findings.There also is a benign 9 mm x 4 mm irregular lesion in the left breast at 5 o'clock anterior depth. This irregular lesion is of mixed echogenicity. This correlates with mammography findings.IMPRESSION: BENIGN FINDINGThere is no sonographic evidence of malignancy.The multiple 6 mm cysts in the left breast superior lateral quadrant anterior depth are benign.The 9 mm x 4 mm irregular lesion in the left breast at 5 o'clock anterior depth most likely is complex cysts and is benign.Return to annual mammogram screening schedule is recommended.Shimon López/amalia:10/09/2017 14:36:14Imaging Technologist: Lety CALVERT(R)(M), [facility] sent: Return to Annual OVERALL STUDY BIRADS: 2 Benign findingTranscriptionist: PenradTranscribe Date/Time: Oct 09 2017 1:27PDictated by : Irina ARAMBULA examination was interpreted and the report reviewed and electronically signed by: SHIMON ALEGRIA DO on Oct 09 2017 2:36PM [id number] [facility] Vital Signs Date Time Vital Sign Value Performing Clinician Facility 05-19-2025 11:11-0400 Body height 154.[address] Dannielle Thomas MD Work Phone: [facility] 05-19-2025 11:11-0400 Body temperature 98.4 [degF] Dr. Dannielle Thomas MD Work Phone: [facility] 05-19-2025 11:11-0400 Diastolic blood pressure 60 mm[Hg] Dr. Dannielle Thomas MD Work Phone: [facility] 05-19-2025 11:11-0400 Heart rate 74 /min Dr. Dannielle Thomas MD Work Phone: [facility] 05-19-2025 11:11-0400 Respiratory rate 16 /min Dr. Dannielle Thomas MD Work Phone: [facility] 05-19-2025 11:11-0400 SaO2% (BldA) [Mass fraction] 94 % Dr. Dannielle Thomas MD Work Phone: [facility] 05-19-2025 11:11-0400 Systolic blood pressure 100 mm[Hg] Dr. Dannielle Thomas MD Work Phone: [facility] 05-02-2025 13:21-0400 Body height 154.[address] Dannielle Thomas MD Work Phone: [facility] 05-02-2025 13:21-0400 Body mass index (BMI) [Ratio] 33.2 kg/m2 Dr. Dannielle Thomas MD Work Phone: [facility] 05-02-2025 13:21-0400 Body weight 79.[address] Dannielle Thomas MD Work Phone: [facility] 05-02-2025 13:21-0400 Diastolic blood pressure 85 mm[Hg] Dr. Dannielle Thomas MD Work Phone: [facility] 05-02-2025 13:21-0400 Heart rate 83 /min Dr. Dannielle Thomas MD Work Phone: [facility] 05-02-2025 13:21-0400 SaO2% (BldA) [Mass fraction] 95 % Dr. Dannielle Thomas MD Work Phone: [facility] 05-02-2025 13:21-0400 Systolic blood pressure 147 mm[Hg] Dr. Dannielle Thomas MD Work Phone: [facility] 04-18-2025 13:21-0400 Body height 154.[address] Dannielle Thomas MD Work Phone: [facility] 04-18-2025 13:21-0400 Body mass index (BMI) [Ratio] 32.1 kg/m2 Dr. Dannielle Thomas MD Work Phone: [facility] 04-18-2025 13:21-0400 Body weight 77.[address] Dannielle Thomas MD Work Phone: [facility] 03-08-2025 16:45-0400 Body temperature 98.1 [degF] Dr. Dannielle Thomas MD Work Phone: [facility] 03-08-2025 16:45-0400 Diastolic blood pressure 61 mm[Hg] Dr. Dannielle Thomas MD Work Phone: [facility] 03-08-2025 16:45-0400 Heart rate 88 /min Dr. Dannielle Thomas MD Work Phone: [facility] 03-08-2025 16:45-0400 Respiratory rate 16 /min Dr. Dannielle Thomas MD Work Phone: [facility] 03-08-2025 16:45-0400 SaO2% (BldA) [Mass fraction] 93 % Dr. Dannielle Thomas MD Work Phone: [facility] 03-08-2025 16:45-0400 Systolic blood pressure 112 mm[Hg] Dr. Dannielle Thomas MD Work Phone: [facility] 03-08-2025 16:00-0400 Inhaled oxygen flow rate 2 L/min Dr. Dannielle Thomas MD Work Phone: [facility] 03-08-2025 11:21-0400 Body mass index (BMI) [Ratio] 33.5 kg/m2 Dr. Dannielle Thomas MD Work Phone: [facility] 03-08-2025 11:21-0400 Body weight 80.[address] Dannielle Thomas MD Work Phone: [facility] 03-02-2025 21:08-0400 Body temperature 97.9 [degF] Dr. Dannielle Thomas MD Work Phone: [facility] 03-02-2025 21:08-0400 Diastolic blood pressure 76 mm[Hg] Dr. Dannielle Thomas MD Work Phone: [facility] 03-02-2025 21:08-0400 Heart rate 88 /min Dr. Dannielle Thomas MD Work Phone: [facility] 03-02-2025 21:08-0400 Respiratory rate 14 /min Dr. Dannielle Thomas MD Work Phone: [facility] 03-02-2025 21:08-0400 SaO2% (BldA) [Mass fraction] 96 % Dr. Dannielle Thomas MD Work Phone: [facility] 03-02-2025 21:08-0400 Systolic blood pressure 128 mm[Hg] Dr. Dannielle Thomas MD Work Phone: [facility] 03-02-2025 15:52-0400 Body height 154.[address] Dannielle Thomas MD Work Phone: [facility] 03-02-2025 15:52-0400 Body mass index (BMI) [Ratio] 34.6 kg/m2 Dr. Dannielle Thomas MD Work Phone: [facility] 03-02-2025 15:52-0400 Body weight 83.[address] Dannielle Thomas MD Work Phone: [facility] 02-23-2025 13:33-0400 Body mass index (BMI) [Ratio] 33.7 kg/m2 Dr. Dannielle Thomas MD Work Phone: [facility] 02-23-2025 13:33-0400 Body temperature 98 [degF] Dr. Dannielle Thomas MD Work Phone: [facility] 02-23-2025 13:33-0400 Body weight 80.[address] Dannielle Thomas MD Work Phone: [facility] 02-23-2025 13:33-0400 Diastolic blood pressure 73 mm[Hg] Dr. Dannielle Thomas MD Work Phone: [facility] 02-23-2025 13:33-0400 Heart rate 78 /min Dr. Dannielle Thomas MD Work Phone: [facility] 02-23-2025 13:33-0400 Respiratory rate 16 /min Dr. Dannielle Thomas MD Work Phone: [facility] 02-23-2025 13:33-0400 SaO2% (BldA) [Mass fraction] 97 % Dr. Dannielle Thomas MD Work Phone: [facility] 02-23-2025 13:33-0400 Systolic blood pressure 141 mm[Hg] Dr. Dannielle Thomas MD Work Phone: [facility] 01-31-2025 15:03-0400 Body height 154.[address] Dannielle Thomas MD Work Phone: [facility] 01-31-2025 15:03-0400 Body mass index (BMI) [Ratio] 34.2 kg/m2 Dr. Dannielle Thomas MD Work Phone: [facility] 01-31-2025 15:03-0400 Body weight 82.[address] Dannielle Thomas MD Work Phone: [facility] 01-31-2025 15:03-0400 Diastolic blood pressure 83 mm[Hg] Dr. Dannielle Thomas MD Work Phone: [facility] 01-31-2025 15:03-0400 Heart rate 86 /min Dr. Dannielle Thomas MD Work Phone: [facility] 01-31-2025 15:03-0400 SaO2% (BldA) [Mass fraction] 96 % Dr. Dannielle Thomas MD Work Phone: [facility] 01-31-2025 15:03-0400 Systolic blood pressure 138 mm[Hg] Dr. Dannielle Thomas MD Work Phone: [facility] 01-23-2025 14:40-0400 Body mass index (BMI) [Ratio] 33.8 kg/m2 Dr. Dannielle Thomas MD Work Phone: [facility] 01-23-2025 14:40-0400 Body temperature 97.8 [degF] Dr. Dannielle Thomas MD Work Phone: [facility] 01-23-2025 14:40-0400 Body weight 81.[address] Dannielle Thomas MD Work Phone: [facility] 01-23-2025 14:40-0400 Diastolic blood pressure 84 mm[Hg] Dr. Dannielle Thomas MD Work Phone: [facility] 01-23-2025 14:40-0400 Heart rate 73 /min Dr. Dannielle Thomas MD Work Phone: [facility] 01-23-2025 14:40-0400 Respiratory rate 16 /min Dr. Dannielle Thomas MD Work Phone: [facility] 01-23-2025 14:40-0400 SaO2% (BldA) [Mass fraction] 94 % Dr. Dannielle Thomas MD Work Phone: [facility] 01-23-2025 14:40-0400 Systolic blood pressure 123 mm[Hg] Dr. Dannielle Thomas MD Work Phone: [facility] 12-15-2024 14:08-0500 Body mass index (BMI) [Ratio] 32.9 kg/m2 Dr. Daninelle Thomas MD Work Phone: [facility] 12-15-2024 14:08-0500 Body temperature 97.8 [degF] Dr. Dannielle Thomas MD Work Phone: [facility] 12-15-2024 14:08-0500 Body weight 79.[address] Dannielle Thomas MD Work Phone: [facility] 12-15-2024 14:08-0500 Diastolic blood pressure 66 mm[Hg] Dr. Dannielle Thomas MD Work Phone: [facility] 12-15-2024 14:08-0500 Heart rate 71 /min Dr. Daninelle Thomas MD Work Phone: [facility] 12-15-2024 14:08-0500 Respiratory rate 16 /min Dr. Dannielle Thomas MD Work Phone: [facility] 12-15-2024 14:08-0500 SaO2% (BldA) [Mass fraction] 90 % Dr. Dannielle Thomas MD Work Phone: [facility] 12-15-2024 14:08-0500 Systolic blood pressure 102 mm[Hg] Dr. Dannielle Thomas MD Work Phone: [facility] 12-10-2024 16:09-0500 Body temperature 97.9 [degF] Dr. Dannielle Thomas MD Work Phone: [facility] 12-10-2024 16:09-0500 Diastolic blood pressure 82 mm[Hg] Dr. Dannielle Thomas MD Work Phone: [facility] 12-10-2024 16:09-0500 Heart rate 93 /min Dr. Dannielle Thomas MD Work Phone: [facility] 12-10-2024 16:09-0500 Respiratory rate 18 /min Dr. Dannielle Thomas MD Work Phone: [facility] 12-10-2024 16:09-0500 SaO2% (BldA) [Mass fraction] 95 % Dr. Dannielle Thomas MD Work Phone: [facility] 12-10-2024 16:09-0500 Systolic blood pressure 152 mm[Hg] Dr. Dannielle Thomas MD Work Phone: [facility] 12-10-2024 11:43-0500 Body mass index (BMI) [Ratio] 33.2 kg/m2 Dr. Dannielle Thomas MD Work Phone: [facility] 12-10-2024 11:43-0500 Body weight 79.[address] Dannielle Thomas MD Work Phone: [facility] 10-05-2024 11:10-0500 Body mass index (BMI) [Ratio] 35 kg/m2 Dr. Dannielle Thomas MD Work Phone: [facility] 10-05-2024 11:10-0500 Body temperature 97.8 [degF] Dr. Dannielle Thomas MD Work Phone: [facility] 10-05-2024 11:10-0500 Body weight 84.[address] Dannielle Thomas MD Work Phone: [facility] 10-05-2024 11:10-0500 Diastolic blood pressure 85 mm[Hg] Dr. Dannielle Thomas MD Work Phone: [facility] 10-05-2024 11:10-0500 Heart rate 95 /min Dr. Dannielle Thomas MD Work Phone: [facility] 10-05-2024 11:10-0500 Respiratory rate 16 /min Dr. Dannielle Thomas MD Work Phone: [facility] 10-05-2024 11:10-0500 SaO2% (BldA) [Mass fraction] 96 % Dr. Dannielle Thomas MD Work Phone: [facility] 10-05-2024 11:10-0500 Systolic blood pressure 130 mm[Hg] Dr. Dannielle Thomas MD Work Phone: [facility] 05-07-2024 15:25-0400 Body mass index (BMI) [Ratio] 35.89 kg/m2 Bobby [facility] EMERGENCY MEDICAL TECHNICIAN/DRIVER.NECKTIES PAINTER Work Phone: [facility] 05-07-2024 15:25-0400 Body temperature 98.8 [degF] Bobby [facility] EMERGENCY MEDICAL TECHNICIAN/DRIVER.NECKTIES PAINTER Work Phone: [facility] 05-07-2024 15:25-0400 Body [facility]/DRIVER.NECKTIES PAINTER Work Phone: [facility] 05-07-2024 15:25-0400 Diastolic blood pressure 78 mm[Hg] Bobby [facility] EMERGENCY MEDICAL TECHNICIAN/DRIVER.NECKTIES PAINTER Work Phone: [facility] 05-07-2024 15:25-0400 Heart rate 82 /min [facility] EMERGENCY MEDICAL TECHNICIAN/DRIVER.NECKTIES PAINTER Work Phone: [facility] 05-07-2024 15:25-0400 Respiratory rate 18 /min Bobby [facility] EMERGENCY MEDICAL TECHNICIAN/DRIVER.NECKTIES PAINTER Work Phone: [facility] 05-07-2024 15:25-0400 SaO2% (BldA) [Mass fraction] 97 % Bobby [facility] EMERGENCY MEDICAL TECHNICIAN/DRIVER.NECKTIES PAINTER Work Phone: [facility] 05-07-2024 15:25-0400 Systolic blood pressure 122 mm[Hg] [facility] EMERGENCY MEDICAL TECHNICIAN/DRIVER.NECKTIES PAINTER Work Phone: [facility] 03-22-2024 10:11-0400 Body height 154.[address] Dannielle Thomas Work Phone: [facility] 03-22-2024 10:11-0400 Body mass index (BMI) [Ratio] 37.5 kg/m2 Dr. Dannielle Thomas Work Phone: [facility] 03-22-2024 10:11-0400 Body temperature 98.3 [degF] Dr. Dannielle Thomas Work Phone: [facility] 03-22-2024 10:11-0400 Body weight 90.[address] Dannielle Thomas Work Phone: [facility] 03-22-2024 10:11-0400 Diastolic blood pressure 88 mm[Hg] Dr. Dannielle Thomas Work Phone: [facility] 03-22-2024 10:11-0400 Heart rate 81 /min Dr. Dannielle Thomas Work Phone: [facility] 03-22-2024 10:11-0400 SaO2% (BldA) [Mass fraction] 95 % Dr. Dannielle Thomas Work Phone: [facility] 03-22-2024 10:11-0400 Systolic blood pressure 150 mm[Hg] Dr. Dannielle Thomas Work Phone: [facility] 12-21-2023 06:07-0500 Body mass index (BMI) [Ratio] 36.2 kg/m2 Dr. Dannielle Thomas Work Phone: [facility] 12-21-2023 06:07-0500 Body temperature 95.4 [degF] Dr. Dannielle Thomas Work Phone: [facility] 12-21-2023 06:07-0500 Body weight 87.[address] Dannielle Thomas Work Phone: [facility] 12-21-2023 06:07-0500 Diastolic blood pressure 82 mm[Hg] Dr. Dannielle Thomas Work Phone: [facility] 12-21-2023 06:07-0500 Heart rate 91 /min Dr. Dannielle Thomas Work Phone: [facility] 12-21-2023 06:07-0500 Respiratory rate 20 /min Dr. Dannielle Thomas Work Phone: [facility] 12-21-2023 06:07-0500 SaO2% (BldA) [Mass fraction] 97 % Dr. Dannielle Thomas Work Phone: [facility] 12-21-2023 06:07-0500 Systolic blood pressure 141 mm[Hg] Dr. Dannielle Thomas Work Phone: [facility] 10-29-2023 12:30-0500 Body height 154.[address] Dannielle Thomas Work Phone: [facility] 10-29-2023 12:30-0500 Body weight 83.[address] Dannielle Thomas Work Phone: [facility] 10-29-2023 12:30-0500 Heart rate 94 /min Dr. Dannielle Thomas Work Phone: [facility] 10-29-2023 12:30-0500 SaO2% (BldA) [Mass fraction] 94 % Dr. Dannielle Thomas Work Phone: [facility] 07-01-2023 15:02-0400 Body height 157.[address] Dannielle Thomas Work Phone: [facility] 07-01-2023 15:02-0400 Body mass index (BMI) [Ratio] 33 kg/m2 Dr. Dannielle Thomas Work Phone: [facility] 07-01-2023 15:02-0400 Body temperature 98.8 [degF] Dr. Dannielle Thomas Work Phone: [facility] 07-01-2023 15:02-0400 Body weight 81.[address] Dannielle Thomas Work Phone: [facility] 07-01-2023 15:02-0400 Diastolic blood pressure 70 mm[Hg] Dr. Dannielle Thomas Work Phone: [facility] 07-01-2023 15:02-0400 Heart rate 103 /min Dr. Dannielle Thomas Work Phone: [facility] 07-01-2023 15:02-0400 Respiratory rate 18 /min Dr. Dannielle Thomas Work Phone: [facility] 07-01-2023 15:02-0400 SaO2% (BldA) [Mass fraction] 94 % Dr. Dannielle Thomas Work Phone: [facility] 07-01-2023 15:02-0400 Systolic blood pressure 129 mm[Hg] Dr. Dannielle Thomas Work Phone: [facility] 06-19-2023 17:27-0400 Body height 157.[address] Dannielle Thomas Work Phone: [facility] 06-19-2023 17:27-0400 Body mass index (BMI) [Ratio] 34 kg/m2 Dr. Dannielle Thomas Work Phone: [facility] 06-19-2023 17:27-0400 Body temperature 97.5 [degF] Dr. Dannielle Thomas Work Phone: [facility] 06-19-2023 17:27-0400 Body weight 84.[address] Dannielle Thomas Work Phone: [facility] 06-19-2023 17:27-0400 Diastolic blood pressure 88 mm[Hg] Dr. Dannielle Thomas Work Phone: [facility] 06-19-2023 17:27-0400 Heart rate 100 /min Dr. Dannielle Thomas Work Phone: [facility] 06-19-2023 17:27-0400 Respiratory rate 18 /min Dr. Dannielle Thomas Work Phone: [facility] 06-19-2023 17:27-0400 SaO2% (BldA) [Mass fraction] 96 % Dr. Dannielle Thomas Work Phone: [facility] 06-19-2023 17:27-0400 Systolic blood pressure 155 mm[Hg] Dr. Dannielle Thomas Work Phone: [facility] 06-08-2023 09:03-0400 Body height 157.[address] Dannielle Thomas Work Phone: [facility] 06-08-2023 09:03-0400 Body weight 87.[address] Dannielle Thomas Work Phone: [facility] 05-29-2023 13:15-0400 Body mass index (BMI) [Ratio] 35.4 kg/m2 Dr. Dannielle Thomas Work Phone: [facility] 05-29-2023 08:32-0400 Body mass index (BMI) [Ratio] 35.4 kg/m2 Dr. Dannielle Thomas Work Phone: [facility] 05-25-2023 13:20-0400 Body height 157.[address] Dannielle Thomas Work Phone: [facility] 05-25-2023 13:20-0400 Body mass index (BMI) [Ratio] 35.3 kg/m2 Dr. Dannielle Thomas Work Phone: [facility] 05-25-2023 13:20-0400 Body temperature 98.2 [degF] Dr. Dannielle Thomas Work Phone: [facility] 05-25-2023 13:20-0400 Body weight 87.[address] Dannielle Thomas Work Phone: [facility] 05-25-2023 13:20-0400 Diastolic blood pressure 76 mm[Hg] Dr. Dannielle Thomas Work Phone: [facility] 05-25-2023 13:20-0400 Heart rate 103 /min Dr. Dannielle Thomas Work Phone: [facility] 05-25-2023 13:20-0400 Respiratory rate 18 /min Dr. Dannielle Thomas Work Phone: [facility] 05-25-2023 13:20-0400 SaO2% (BldA) [Mass fraction] 97 % Dr. Dannielle Thomas Work Phone: [facility] 05-25-2023 13:20-0400 Systolic blood pressure 150 mm[Hg] Dr. Dannielle Thomas Work Phone: [facility] 05-21-2023 13:01-0400 Body mass index (BMI) [Ratio] 35.4 kg/m2 Dr. Dannielle Thomas Work Phone: [facility] 05-21-2023 13:01-0400 Body weight 87.[address] Dannielle Thomas Work Phone: [facility] 05-21-2023 13:01-0400 Diastolic blood pressure 87 mm[Hg] Dr. Dannielle Thomas Work Phone: [facility] 05-21-2023 13:01-0400 Heart rate 89 /min Dr. Dannielle Thomas Work Phone: [facility] 05-21-2023 13:01-0400 Respiratory rate 18 /min Dr. Dannielle Thomas Work Phone: [facility] 05-21-2023 13:01-0400 SaO2% (BldA) [Mass fraction] 94 % Dr. Dannielle Thomas Work Phone: [facility] 05-21-2023 13:01-0400 Systolic blood pressure 127 mm[Hg] Dr. Dannielle Thomas Work Phone: [facility] 03-26-2023 14:23-0400 Body temperature 98.3 [degF] Dr. Dannielle Thomas Work Phone: [facility] 03-26-2023 14:23-0400 Diastolic blood pressure 62 mm[Hg] Dr. Dannielle Thomas Work Phone: [facility] 03-26-2023 14:23-0400 Heart rate 88 /min Dr. Dannielle Thomas Work Phone: [facility] 03-26-2023 14:23-0400 Respiratory rate 16 /min Dr. Dannielle Thomas Work Phone: [facility] 03-26-2023 14:23-0400 SaO2% (BldA) [Mass fraction] 96 % Dr. Dannielle Thomas Work Phone: [facility] 03-26-2023 14:23-0400 Systolic blood pressure 149 mm[Hg] Dr. Dannielle Thomas Work Phone: [facility] 03-26-2023 12:43-0400 Inhaled oxygen flow rate 2 L/min Dr. Dannielle Thomas Work Phone: [facility] 03-26-2023 11:20-0400 Body height 157.[address] Dannielle Thomas Work Phone: [facility] 03-26-2023 11:20-0400 Body mass index (BMI) [Ratio] 36.6 kg/m2 Dr. Dannielle Thomas Work Phone: [facility] 03-26-2023 11:20-0400 Body weight 90.[address] Dannielle Thomas Work Phone: [facility] 01-23-2023 11:03-0500 Body height 157.[address] Dannielle Thomas Work Phone: [facility] 01-23-2023 11:03-0500 Body mass index (BMI) [Ratio] 36.7 kg/m2 Dr. Dannielle Thomas Work Phone: [facility] 01-23-2023 11:03-0500 Body weight 91.[address] Dannielle Thomas Work Phone: [facility] 01-23-2023 11:03-0500 Diastolic blood pressure 98 mm[Hg] Dr. Dannielle Thomas Work Phone: [facility] 01-23-2023 11:03-0500 Heart rate 100 /min Dr. Dannielle Thomas Work Phone: [facility] 01-23-2023 11:03-0500 Respiratory rate 18 /min Dr. Dannielle Thomas Work Phone: [facility] 01-23-2023 11:03-0500 Systolic blood pressure 158 mm[Hg] Dr. Dannielle Thomas Work Phone: [facility] 12-23-2022 07:55-0500 Body mass index (BMI) [Ratio] 36.3 kg/m2 Dr. Dannielle Thomas Work Phone: [facility] 12-23-2022 07:55-0500 Body temperature 97.1 [degF] Dr. Dannielle Thomas Work Phone: [facility] 12-23-2022 07:55-0500 Body weight 90.[address] Dannielle Thomas Work Phone: [facility] 12-23-2022 07:55-0500 Diastolic blood pressure 80 mm[Hg] Dr. Dannielle Thomas Work Phone: [facility] 12-23-2022 07:55-0500 Heart rate 107 /min Dr. Dannielle Thomas Work Phone: [facility] 12-23-2022 07:55-0500 Respiratory rate 20 /min Dr. Dannielle Thomas Work Phone: [facility] 12-23-2022 07:55-0500 SaO2% (BldA) [Mass fraction] 97 % Dr. Dannielle Thomas Work Phone: [facility] 12-23-2022 07:55-0500 Systolic blood pressure 125 mm[Hg] Dr. Dannielle Thomas Work Phone: [facility] 10-23-2022 10:07-0500 Body temperature 98.3 [degF] Dr. James Watson Work Phone: [facility] 10-23-2022 10:07-0500 Diastolic blood pressure 68 mm[Hg] Dr. James Watson Work Phone: 3(334)052-028954 [place] [address] 10-23-2022 10:07-0500 Heart rate 80 /min Dr. James Watson Work Phone: 3(669)[phone] [place] [address] 10-23-2022 10:07-0500 Respiratory rate 16 /min Dr. James Watson Work Phone: [facility] 10-23-2022 10:07-0500 SaO2% (BldA) [Mass fraction] 95 % Dr. Jamse Watson Work Phone: 9([phone])[phone] [place] [address] 10-23-2022 10:07-0500 Systolic blood pressure 132 mm[Hg] Dr. James Watson Work Phone: [facility] 10-23-2022 07:32-0500 Body height 157.[address] James Waston Work Phone: [facility] Work Phone: 10-23-2022 07:32-0500 Body mass index (BMI) [Ratio] 36.4 kg/m2 Dr. James Watson Work Phone: 8(274)[phone] [place] [address] 10-23-2022 07:32-0500 Body weight 90.[address] James Watson Work Phone: [facility] 09-24-2022 11:21-0500 Body height 157.[address] James Watson Work Phone: [facility] Work Phone: 09-24-2022 11:21-0500 Body mass index (BMI) [Ratio] 37.3 kg/m2 Dr. James Watson Work Phone: [facility] Work Phone: 09-24-2022 11:21-0500 Body temperature 98 [degF] Dr. James Watson Work Phone: [facility] Work Phone: 09-24-2022 11:21-0500 Body weight 92.[address] James Watson Work Phone: [facility] Work Phone: 09-24-2022 11:21-0500 Diastolic blood pressure 84 mm[Hg] Dr. James Watson Work Phone: [facility] Work Phone: 09-24-2022 11:21-0500 Heart rate 77 /min Dr. James Watson Work Phone: [facility] Work Phone: 09-24-2022 11:21-0500 Respiratory rate 16 /min Dr. James Watson Work Phone: [facility] Work Phone: 09-24-2022 11:21-0500 SaO2% (BldA) [Mass fraction] 94 % Dr. James Watson Work Phone: [facility] Work Phone: 09-24-2022 11:21-0500 Systolic blood pressure 137 mm[Hg] Dr. James Watson Work Phone: [facility] Work Phone: 08-13-2022 14:34-0400 Body height 157.[address] James Watson Work Phone: [facility] Work Phone: 08-13-2022 14:34-0400 Body mass index (BMI) [Ratio] 37.3 kg/m2 Dr. James Watson Work Phone: [facility] Work Phone: 08-13-2022 14:34-0400 Body weight 92.[address] James Watson Work Phone: [facility] Work Phone: 07-31-2022 11:00-0400 Body temperature 97 [degF] Dr. James Watson Work Phone: [facility] Work Phone: 07-31-2022 11:00-0400 Body weight 91.[address] James Watson Work Phone: [facility] Work Phone: 07-31-2022 11:00-0400 Diastolic blood pressure 87 mm[Hg] Dr. James Watson Work Phone: [facility] Work Phone: 07-31-2022 11:00-0400 Heart rate 97 /min Dr. James Watson Work Phone: [facility] Work Phone: 07-31-2022 11:00-0400 Respiratory rate 18 /min Dr. James Watson Work Phone: [facility] Work Phone: 07-31-2022 11:00-0400 SaO2% (BldA) [Mass fraction] 96 % Dr. James Watson Work Phone: [facility] Work Phone: 07-31-2022 11:00-0400 Systolic blood pressure 162 mm[Hg] Dr. James Watson Work Phone: [facility] Work Phone: 05-29-2022 15:09-0400 Body mass index (BMI) [Ratio] 36.4 kg/m2 Dr. James aWtson Work Phone: [facility] Work Phone: 05-29-2022 15:09-0400 Body temperature 97.5 [degF] Dr. James Watson Work Phone: [facility] Work Phone: 05-29-2022 15:09-0400 Body weight 90.[address] James Watson Work Phone: [facility] Work Phone: 05-29-2022 15:09-0400 Diastolic blood pressure 72 mm[Hg] Dr. James Watson Work Phone: [facility] Work Phone: 05-29-2022 15:09-0400 Heart rate 92 /min Dr. James Watson Work Phone: [facility] Work Phone: 05-29-2022 15:09-0400 Respiratory rate 18 /min Dr. James Watson Work Phone: [facility] Work Phone: 05-29-2022 15:09-0400 SaO2% (BldA) [Mass fraction] 96 % Dr. James Watson Work Phone: [facility] Work Phone: 05-29-2022 15:09-0400 Systolic blood pressure 126 mm[Hg] Dr. James Watson Work Phone: [facility] Work Phone: 04-03-2022 14:47-0400 Body temperature 98.71 [degF] Courtney Mata APRN.NECKTIES PAINTER Work Phone: [facility] 04-03-2022 14:47-0400 Body weight 92.17 kg Courtney Mata APRN.NECKTIES PAINTER Work Phone: [facility] 04-03-2022 14:47-0400 Diastolic blood pressure 80 mm[Hg] Courtney Mata APRN.NECKTIES PAINTER Work Phone: [facility] 04-03-2022 14:47-0400 Heart rate 113 /min Courtney Mata APRN.NECKTIES PAINTER Work Phone: [facility] 04-03-2022 14:47-0400 Respiratory rate 20 /min Courtney Mata APRN.NECKTIES PAINTER Work Phone: [facility] 04-03-2022 14:47-0400 SaO2% (BldA) [Mass fraction] 97 % Courtney Adolfo EMERGENCY MEDICAL TECHNICIAN/DRIVER.NECKTIES PAINTER Work Phone: [facility] 04-03-2022 14:47-0400 Systolic blood pressure 130 mm[Hg] Courtney Mata EMERGENCY MEDICAL TECHNICIAN/DRIVER.NECKTIES PAINTER Work Phone: [facility] 03-03-2022 13:24-0400 Body temperature 99.39 [degF] Bobby Ayana EMERGENCY MEDICAL TECHNICIAN/DRIVER.NECKTIES PAINTER Work Phone: [facility] 03-03-2022 13:24-0400 Body weight 93.89 kg Bobby Piña EMERGENCY MEDICAL TECHNICIAN/DRIVER.NECKTIES PAINTER Work Phone: [facility] 03-03-2022 13:24-0400 Diastolic blood pressure 74 mm[Hg] Bobby Piña EMERGENCY MEDICAL TECHNICIAN/DRIVER.NECKTIES PAINTER Work Phone: [facility] 03-03-2022 13:24-0400 Heart rate 106 /min Bobby Piña EMERGENCY MEDICAL TECHNICIAN/DRIVER.NECKTIES PAINTER Work Phone: [facility] 03-03-2022 13:24-0400 Respiratory rate 18 /min Bobby Ayana EMERGENCY MEDICAL TECHNICIAN/DRIVER.NECKTIES PAINTER Work Phone: [facility] 03-03-2022 13:24-0400 SaO2% (BldA) [Mass fraction] 95 % Bobby Piña EMERGENCY MEDICAL TECHNICIAN/DRIVER.NECKTIES PAINTER Work Phone: [facility] 03-03-2022 13:24-0400 Systolic blood pressure 128 mm[Hg] Bobby Piña EMERGENCY MEDICAL TECHNICIAN/DRIVER.NECKTIES PAINTER Work Phone: [facility] Encounters Encounter Date Encounter Type Care Provider Facility Start: 09-13-2025 ambulatory [facility] Facility :[facility] Start: 09-11-2025 ambulatory [facility] Facility :[facility] Start: 09-07-2025 End: 09-07-2025 ambulatory [facility] Facility:[facility] Start: 08-25-2025 End: 08-25-2025 ambulatory [facility] Facility:[facility] Start: 07-11-2025 ambulatory [facility] Facility :[facility] Start: 07-10-2025 End: 07-10-[address] Inez Rousseau MD -[facility] Work Phone: Start: 07-10-2025 End: 07-10-[address] Dannielle Thomas MD Work Phone: -[facility] Start: 05-19-2025 End: 05-19-2025 Patient encounter procedure Bam Marvin DC -[facility] Work Phone: Start: 05-19-2025 End: 05-19-[address] Dannielle Thomas MD Work Phone: [facility] Start: 05-16-2025 Non-patient / Non-visit Dr. Inez Rousseau MD -[facility] Work Phone: Start: 05-02-2025 End: 05-02-[address] Elvis Sharif MD -[facility] Work Phone: Start: 05-02-2025 End: 05-02-[address] Dannielle Thomas MD Work Phone: [facility] Work Phone: Start: 04-27-2025 End: 04-27-[address] Dannielle Thomas MD Work Phone: -Physical Therapy Start: 04-27-2025 End: 04-27-[address] Dominik Loza MD -Physical Therapy Work Phone: Start: 04-27-[address] Dominik jordan MD -Physical Therapy Work Phone: Start: 04-18-2025 End: 04-18-[address] Gualberto Gomez MD -[facility] Start: 04-18-2025 End: 04-18-[address] Dannielle Thomas MD Work Phone: [facility] Work Phone: Start: 04-04-2025 ambulatory Dannielle Thomas Facility :[facility] Start: 03-30-[address] Domniik jordan MD -Physical Therapy Work Phone: Start: 03-21-2025 End: 03-21-[address] Gurwinder Urena MD [facility] Work Phone: Start: 03-21-2025 End: 03-21-2025 ambulatory Gurwinder Urena Facility:[facility] Start: 03-10-2025 End: 03-10-[address] Gurwinder Urena MD -[facility] Work Phone: Start: 03-10-2025 End: 03-10-2025 ambulatory [facility] Facility:[facility] Start: 03-08-2025 ambulatory Gurwinder [facility] Facility :[facility] Start: 03-08-2025 Non-patient / Non-visit [facility] Start: 03-08-2025 End: 03-08-2025 Admission to same day surgery center Dr. Gurwinder Urena MD -[facility] Start: 03-08-2025 End: 03-08-2025 ambulatory Gurwinder Urena Facility:[facility] Start: 03-08-2025 ambulatory [facility] Facility :[facility] Start: 03-03-2025 End: 03-03-[address] Gurwinder Urena MD -[facility] Work Phone: Start: 03-03-2025 End: 03-03-2025 ambulatory [facility] Facility:[facility] Start: 03-02-2025 ambulatory Gurwinder Urena Facility :[facility] Start: 03-02-2025 Non-patient / Non-visit Dr. Gurwinder Urena MD -[facility] Start: 03-02-2025 End: 03-02-2025 Dr. Dannielle Thomas MD Work Phone: -Emergency Department Work Phone: Start: 03-02-2025 End: 03-02-2025 Emergency department patient visit Dr. Dannielle Thomas MD Work Phone: [facility] Work Phone: Start: 02-23-2025 End: 02-23-[address] Dannielle Thomas MD -[facility] Work Phone: Start: 02-23-2025 End: 02-23-2025 Dr. Dannielle Thomas MD -[facility] Work Phone: Start: 02-23-2025 End: 02-23-2025 ambulatory Dannielle William Facility:[facility] Start: 02-21-2025 End: 02-21-[address] Dominik Loza MD -[facility] Work Phone: Start: 02-21-2025 End: 02-21-2025 Dr. Dominik Loza MD -[facility] Work Phone: Start: 02-21-2025 End: 02-21-2025 ambulatory Danniellecarlita Thomas Facility:[facility] Start: 02-16-2025 End: 02-16-[address] Dannielle Thomas MD -Cat Scan [facility] Work Phone: Start: 02-16-2025 End: 02-16-2025 Dr. Dannielle Thomas MD -Cat Scan, [facility] Work Phone: Start: 02-16-2025 End: 02-16-2025 ambulatory Danniellecarlita Thomas Facility:[facility] Start: 01-31-2025 End: 01-31-[address] Elvis Sharif MD -[facility] Work Phone: Start: 01-31-2025 End: 01-31-2025 Dr. Elvis Sharif MD -[facility] Work Phone: Start: 01-31-2025 End: 01-31-2025 ambulatory Dannielle Thomas Facility:[facility] Start: 01-23-2025 End: 01-23-[address] Dannielle Thomas MD Work Phone: [facility] Work Phone: Start: 01-23-2025 End: 01-23-[address] Dannielle Thomas MD -[facility] Work Phone: Start: 01-23-2025 End: 01-23-2025 Dr. Dannielle Thomas MD -[facility] Work Phone: Start: 01-23-2025 End: 01-23-2025 ambulatory Danniellecarlita Thomas Facility:[facility] Start: 01-17-2025 ambulatory [facility] Facility :[facility] Start: 01-10-2025 End: 01-10-[address] Dannielle Thomas MD -Laboratory, [place] Work Phone: Start: 01-10-2025 End: 01-10-2025 Dr. Dannielle Thomas MD -Labor[facility], [place] Work Phone: Start: 01-10-2025 End: 01-10-[facility] Start: 12-15-2024 End: 12-15-[address] Dannielle Thomas MD -Laboratory, [place] Work Phone: Start: 12-15-2024 End: 12-15-2024 Dr. Dannielle Thomas MD -Laboratory, [place] Work Phone: Start: 12-15-2024 End: 12-15-[address] Dannielle Thomas MD -[facility] Work Phone: Start: 12-15-2024 End: 12-15-2024 Dr. Dannielle Thomas MD -[place] [facility] Work Phone: Start: 12-15-2024 End: 12-15-2024 ambulatory Danniellecarlita AbbottWilliam Facility:[facility] Start: 12-15-2024 End: 12-15-2024 ambulatory [facility] Facility:[facility] Start: 12-10-2024 End: 12-10-2024 Dr. [facility] Start: 12-10-2024 End: 12-10-2024 Emergency department patient visit Dr. Beau Edmonds DO -Emergency Department Work Phone: Start: 12-10-2024 End: 12-10-2024 Patient encounter procedure Bobby Piña EMERGENCY MEDICAL TECHNICIAN/DRIVER.NECKTIES PAINTER Work Phone: [facility] Comment on above: Procedure not krystal d out (Primary Dx) Start: 11-24-2024 End: 11-24-[address] Dannielle Thomas MD -Labor[facility], [place] Work Phone: Start: 11-24-2024 End: 11-24-2024 Dr. Dannielle Thomas MD -[facility], [place] Work Phone: Start: 11-24-2024 End: 11-24-2024 ambulatory [facility] Facility:[facility] Start: 10-17-2024 ambulatory [facility] Facility :[facility] Start: 10-17-2024 Non-patient / Non-visit Dr. Liliya Keene MD -[facility] Start: 10-17-2024 End: 10-17-[address] Dannielle Thomas MD -Cardiovascular Services Work Phone: Start: 10-17-2024 End: 10-17-2024 ambulatory [facility] Facility:[facility] Start: 10-05-2024 End: 10-05-[address] Dannielle Thomas MD -[facility] Work Phone: Start: 10-05-2024 End: 10-05-2024 ambulatory [facility] Facility:[facility] Start: 09-27-2024 End: 09-27-2024 [facility] Start: 09-22-2024 End: 09-22-2024 ambulatory Danniellecarlita AbbottWilliam Facility:[facility] Start: 05-07-2024 End: 05-07-2024 Office outpatient visit 15 minutes Bobby Piña EMERGENCY MEDICAL TECHNICIAN/DRIVER.NECKTIES PAINTER Work Phone: [facility] Comment on above: Allergic reaction, i nitial encounter (Primary Dx) Start: 05-07-2024 End: 05-07-2024 ambulatory Rafaela Gómez RN NURSE CONTRACT PROCESSOR Comment on above: Rash Start: 03-22-2024 End: 03-22-[address] Dannielle Thomas Work Phone: [facility] Endocrinology Work Phone: Start: 03-18-2024 End: 03-18-[address] Dannielle Thomas Work Phone: [facility] Work Phone: Start: 03-18-2024 End: 03-18-[address] Dannielle Thomas Work Phone: [facility] Work Phone: Start: 12-21-2023 End: 12-21-[address] Dannielle Thomas Work Phone: [facility] Pulmonary Medicine Work Phone: Start: 11-04-2023 ambulatory James Watson MD Work Phone: Internal Medicine [facility] [place] Start: 10-29-[address] Dannielle Thomas Work Phone: [facility]-Pulmonary Services/Neurology Work Phone: Start: 10-27-2023 Non-patient / Non-visit Dr. Dannielle Thomas Work Phone: [facility] Start: 10-26-2023 End: 10-26-[address] Dannielle Thomas Work Phone: [facility] Work Phone: Start: 10-26-2023 End: 10-26-[address] [facility] Start: 10-23-2023 End: 10-23-[address] Dannielle Thomas Work Phone: [facility] Work Phone: Start: 10-23-2023 End: 10-23-[address] Dannielle Thomas Work Phone: [facility] Work Phone: Start: 10-15-2023 End: 10-15-[address] Dannielle Thomas Work Phone: [facility] Work Phone: Start: 10-15-2023 End: 10-15-[address] Dannielle Thomas Work Phone: [facility] Gastroenterology Work Phone: Start: 07-01-2023 End: 07-01-[address] Dannielle Thomas Work Phone: [facility] Med [facility] Work Phone: Start: 06-19-2023 End: 06-19-2023 Emergency department patient visit Dr. Dannielle Thomas Work Phone: [facility]-Emergency Department Work Phone: Start: 06-08-2023 End: 06-08-2023 Admission to same day surgery center Dr. Dannielle Thomas Work Phone: [facility]-Construction Engineer/Special Procedures Work Phone: Start: 06-08-2023 End: 06-08-[address] Dannielle Thomas Work Phone: [facility] Work Phone: Start: 05-28-2023 End: 05-28-[address] Dannielle Thomas Work Phone: [facility]-Laboratory Work Phone: Start: 05-25-2023 End: 05-25-[address] Dannielle Thomas Work Phone: [facility] Work Phone: Start: 05-25-2023 End: 05-25-[address] Dannielle Thomas Work Phone: [facility]-Laboratory Work Phone: Start: 05-25-2023 End: 05-25-[address] Dannielle Thomas Work Phone: [facility] Work Phone: Start: 05-21-2023 End: 05-21-[address] Dannielle Thomas Work Phone: [facility] Work Phone: Start: 03-26-2023 End: 03-26-2023 Admission to same day surgery center [facility]ann[facility] Start: 03-26-2023 End: 03-26-[address] Dannielle Thomas Work Phone: [facility] Work Phone: Start: 02-03-2023 Non-patient / Non-visit Dr. Dannielle Thomas Work Phone: [facility] Start: 02-03-2023 End: 02-03-[address] Dannielle Thomas Work Phone: [facility] Work Phone: Start: 02-03-2023 End: 02-03-[address] Dannielle Thomas Work Phone: [facility]-Cardiovascular Services Start: 01-23-2023 End: 01-23-[address] Dannielle Thomas Work Phone: [facility]-Laboratory Start: 01-23-2023 End: 01-23-[address] Dannielle Thomas Work Phone: [facility] Start: 12-23-2022 End: 12-23-[address] [facility]ann[facility] Start: 11-19-2022 ambulatory James Watson MD Work Phone: Internal Medicine [facility] [place] Start: 10-23-2022 End: 10-23-2022 Admission to same day surgery center Dr. James Watson Work Phone: [facility]-Surgical Day Care Start: 10-23-2022 End: 10-23-[address] James Watson Work Phone: [facility] Work Phone: Start: 10-20-2022 End: 10-20-2022 Non-patient / Non-visit Dr. Dannielle Thomas Work Phone: [facility] Start: 10-20-2022 End: 10-20-[address] James Watson Work Phone: [facility] Start: 10-02-2022 End: 10-02-[address] James Watson Work Phone: [facility] Work Phone: Start: 10-02-2022 End: 10-02-2022 Patient encounter procedure Dr. James Watson Work Phone: [facility] Start: 09-24-2022 End: 09-24-[address] James Watson Work Phone: [facility] Work Phone: Start: 09-24-2022 End: 09-24-[address] James Watson Work Phone: [facility] Start: 09-24-2022 End: 09-24-[address] [facility] Watson [facility] Phone: [facility] Start: 09-17-2022 End: 09-17-[address] James Watson Work Phone: [facility] Work Phone: Start: 09-17-2022 End: 09-17-[address] James Watson Work Phone: [facility] Start: 09-03-2022 Non-patient / Non-visit Dr. James Watson Work Phone: [facility] Internal Medicine Start: 08-22-2022 End: 08-22-[address] James Watson Work Phone: [facility] Work Phone: Start: 08-22-2022 End: 08-22-[address] James Watson Work Phone: [facility]-Ultrasound, [facility] Start: 08-13-2022 End: 08-13-[address] James Watson Work Phone: [facility] Orthopaedic Specia Start: 07-31-2022 End: 07-31-[address] James Watson Work Phone: [facility] Int Med at Gm Start: 06-30-2022 End: 06-30-[address] James Watson Work Phone: [facility] Start: 05-29-2022 End: 05-29-[address] James Watson Work Phone: [facility] Internal Medicine Start: 05-14-2022 End: 05-14-[address] James Watson Work Phone: [facility] Start: 05-12-2022 Non-patient / Non-visit Dr. James Watson Work Phone: [facility] Internal Medicine Start: 04-15-2022 End: 04-15-2022 [facility] Ciara Milagro Albert SHIELDS.NECKTIES PAINTER Work Phone: Psychiatry Comment on above: Insomnia, unspecifie d type (Primary Dx); Moderate episode of recurrent major depressive disorder (HCC); RODERICK (generalized anxiety disorder); Chronic pain syndrome; Medical marijuana use Start: 04-03-2022 End: 04-03-2022 Subsequent hospital visit by physician Queta [facility] Work Phone: Radiology Comment on above: Cough [R05.9] Start: 04-03-2022 End: 04-03-2022 Patient encounter procedure Courtney Mata APRN.NECKTIES PAINTER Work Phone: [place] [facility] Comment on above: Cough (Primary Dx) Start: 04-02-2022 Telephone encounter James Watson MD Work Phone: Family Medicine [place] Comment on above: Patient Update; Iraida ent Question; Appointment Start: 03-31-2022 Telephone encounter James Watson MD Work Phone: [facility] [place] Comment on above: Patient Update Start: 03-20-2022 Telephone encounter James Watson MD Work Phone: [facility] [place] Comment on above: Appointment Start: 03-19-2022 End: 03-19-2022 [facility] Ciara Price APRN.NECKTIES PAINTER Work Phone: Psychiatry Comment on above: Insomnia, unspecifie d type (Primary Dx); Moderate episode of recurrent major depressive disorder (HCC); RODERICK (generalized anxiety disorder) Start: 03-19-2022 End: 03-19-2022 ambulatory James Watson MD Work Phone: [facility] [place] Comment on above: Bronchitis (Primary Dx); Urinary incontinence, unspecified type Start: 03-19-2022 End: 03-19-2022 Telemedicine consultation with patient James Watson MD Work Phone: [facility] Start: 03-18-2022 Telephone encounter James Watson MD Work Phone: [facility] [place] Comment on above: Appointment; Patient Question Start: 03-03-2022 End: 03-03-2022 Subsequent hospital visit by physician Queta [facility] [place] Work Phone: Radiology Comment on above: Suspected COVID-19 v irus infection [Z20.822] Start: 03-03-2022 ambulatory James Watson MD Work Phone: [facility] [place] Comment on above: Cough Start: 03-03-2022 End: 03-03-2022 Patient encounter procedure Bobby Piña EMERGENCY MEDICAL TECHNICIAN/DRIVER.NECKTIES PAINTER Work Phone: [facility] Comment on above: Suspected COVID-19 v irus infection (Primary Dx) Start: 02-27-2022 Telephone encounter Leanna SHERWOOD [facility] [place] Comment on above: Medication Problem Start: 02-25-2022 End: 02-25-2022 [facility] Ciaralouis Price EMERGENCY MEDICAL TECHNICIAN/DRIVER.NECKTIES PAINTER Work Phone: Psychiatry Comment on above: Insomnia, unspecifie d type (Primary Dx); Moderate episode of recurrent major depressive disorder (HCC); RODERICK (generalized anxiety disorder); Chronic pain syndrome Start: 02-17-2022 End: 02-17-2022 [facility] Ciara [employer] Raj EMERGENCY MEDICAL TECHNICIAN/DRIVER.NECKTIES PAINTER Work Phone: Psychiatry Comment on above: Insomnia, unspecifie d type (Primary Dx); Moderate episode of recurrent major depressive disorder (HCC); RODERICK (generalized anxiety disorder); Medical marijuana use Start: 08-27-2018 End: 08-27-[address] [facility] Start: 08-12-2018 Patient encounter LAZARO dubon:[facility] Start: 02-09-2018 End: 02-09-2018 Ambulatory LAZARO VARGAS [facility] Start: 01-28-2018 Patient encounter LAZARO dubon:[facility] Start: 01-25-2018 End: 01-25-2018 Ambulatory ARETHA DOMINIQUE [facility] Start: 01-25-2018 End: 01-25-2018 Evaluation and management of inpatient ARETHA DOMINIQUE Facility:[facility] Start: 01-18-2018 End: 01-18-2018 Ambulatory LAZARO VARGAS [facility] Start: 10-09-2017 Patient encounter SHAMEKA BELL RT [facility] Procedures Date Procedure Procedure Detail Performing Clinician Start: 04-18-2025 Plain x-ray of elbow Dr Alexandro Thomas MD Work Phone: Start: 03-21-2025 Plain x-ray of elbow Dr Alexandro Thomas MD Work Phone: Start: 03-10-2025 Plain x-ray of elbow Dr Alexandro Thomas MD Work Phone: Start: 03-08-2025 Fluoroscopic guidance Caremla Thomas MD Work Phone: Start: 03-08-2025 Plain x-ray of elbow Dr Alexandro Thomas MD Work Phone: Start: 03-02-2025 CT of upper limb wit hout contrast Dr. Dannielle Thomas MD Work Phone: Start: 03-02-2025 Plain x-ray of elbow Dr Alexandro Thomas MD Work Phone: Start: 03-02-2025 X-ray of knee, one o r two views Dr. Dannielle Thomas MD Work Phone: Start: 03-02-2025 CT cervical spine wi thout contrast Dr. Dannielle Thomas MD Work Phone: Start: 03-02-[address] Dannielle Thomas MD Work Phone: Start: 03-02-2025 CT of head without contrast Dr. Dannielle Thomas MD Work Phone: Start: 02-16-2025 CT angiography of he ad and neck Dr. Dannielle Thomas MD Work Phone: Start: 01-23-[address] Lo Thomas MD Work Phone: Comment on above: Performed at: [address] [id number] Director: Alberto Nguyen PhD, Phone: [phone] Start: 01-23-2025 Antibody to centrome re measurement Dr. Dannielle Thomas MD Work Phone: Comment on above: Test not performed Start: 01-23-2025 Antibody to extracta ble nuclear antigen measurement Dr. Dannielle Thomas MD Work Phone: Comment on above: Test not performed Start: 01-23-2025 Antibody to KAMINI-[address] Dannielle Thoams MD Work Phone: Comment on above: Test not performed Start: 01-23-2025 Antibody to lupus La protein measurement Dr. Dannielle Thomas MD Work Phone: Comment on above: Test not performed Start: 01-23-2025 Antibody to SS-A measurement Dr. Dannielle Thomas MD Work Phone: Comment on above: Test not performed Start: 01-23-[address] Dannielle Thomas MD Work Phone: Comment on above: Test not performed Start: 01-23-2025 REVERSE LOGISTICS ANALYST antibody measurement Dr. Dannielle Thomas MD Work Phone: Comment on above: Test not performed Start: 01-23-2025 Total iron binding c apacity measurement Dr. Dannielle Thomas MD Work Phone: Start: 12-15-[address] Dannielle Thomas MD Work Phone: Start: 12-10-[address] Dannielle Thomas MD Work Phone: Start: 12-10-2024 SARS-CoV-2, Influenz a & RSV (PCR) Dr. Dannielle Thomas MD Work Phone: Start: 12-10-[address] Dannielle Thomas MD Work Phone: Start: 12-10-2024 Dr. Dannielle Thomas MD Work Phone: Start: 12-10-2024 X-ray of chest, PA a nd lateral views Dr. Dannielle Thomas MD Work Phone: Start: 10-17-2024 MRI of lumbar spine Dr. Dannielle Thomas MD Work Phone: Start: 10-17-2024 Radionuclide imaging of perfusion of myocardium under exercise stress Dr. Dannielle Thomas MD Work Phone: Start: 10-23-[address] Dannielle Thomas Work Phone: Start: 05-25-2023 Plain chest X-ray Dr. Neha Thomas Work Phone: Start: 03-26-2023 Vaginal Sling, Tensi on Free,Cysto (Not Applicable) Dr. Dannielle Thomas Work Phone: Start: 02-03-2023 Cardiovascular stres s test using pharmacologic stress agent Dr. Dannielle Thomas Work Phone: Start: 10-23-2022 Cysto,Biopsy,Fulgura tion,Bl adder Tumor (Not Applicable) Dr. James Watson Work Phone: Start: 09-24-2022 MRI of lumbar spine Dr. James Watson Work Phone: Start: 09-17-[address] Mati Watson Work Phone: Start: 08-22-[address] Jann Watson Work Phone: Start: 08-13-2022 Radiography of sacrococcygeal spine Dr. James Watson Work Phone: Start: 08-13-2022 X-ray of lumbar spin e, two or three views Dr. James Watson Work Phone: Start: 06-30-2022 X-ray of cervical spine Dr. James Watson Work Phone: Start: 06-30-2022 Plain x-ray of hand Dr. James Watson Work Phone: Start: 05-14-[address] Mati Watson Work Phone: Start: 04-03-2022 Radiologic exam ches t 2 views Courtney Mata EMERGENCY MEDICAL TECHNICIAN/DRIVER.NECKTIES PAINTER Work Phone: Start: 03-03-2022 Radiologic exam ches t 2 views Bobby Chadwickarmin EMERGENCY MEDICAL TECHNICIAN/DRIVER.NECKTIES PAINTER Work Phone: Start: 10-22-2021 Colonoscopy Ciara cueto EMERGENCY MEDICAL TECHNICIAN/DRIVER.NECKTIES PAINTER Work Phone: Start: 10-14-2021 Mammography Ciara cueto EMERGENCY MEDICAL TECHNICIAN/DRIVER.NECKTIES PAINTER Work Phone: Plan of Treatment Date Care Activity Detail Author Start: 04-27-2029 Urine microalbumin profile [facility] Start: 10-22-2026 Colonoscopy COLONOSCOPY [facility] Start: 10-22-2026 COLORECTAL CANCER SCREENING COLORECTAL CANCER SCREENING [facility] Start: 10-22-2026 Screening for malignant neoplasm of colon [facility] Start: 05-07-2025 BP Controlled (<130/80) BP Controlled (<130/80) [facility] Start: 04-18-2025 Plain x-ray of elbow Elbow min 3 Views [facility] Start: 04-18-2025 XR Elbow GE 3 Views [facility] Start: 03-21-2025 Patient referral [facility] Work Phone: Start: 03-08-2025 Patient discharge [facility] Start: 03-08-2025 Application of ice collar, cap or bag [facility] Start: 03-08-2025 Assessment of risk of venous thromboembolism [facility] Start: 03-08-[address] [facility] Start: 03-08-2025 Continuous positive airway pressure ventilation treatment [facility] Start: 03-08-2025 Following clinical pathway protocol [facility] Start: 03-08-2025 Incentive spirometry [facility] Start: 03-08-2025 Introduction of urinary catheter [facility] Start: 03-08-2025 Provision of activity privileges [facility] Start: 03-08-2025 Vital signs measurements [facility] Start: 03-08-2025 [facility] Start: 03-08-2025 Anes open/surg arthroscopic elbow proc nos ANESTH UPPER ARM SURGERY [facility] Start: 03-08-2025 Arthroplasty radial head w/implant RECONSTRUCT HEAD OF RADIUS [facility] Start: 03-08-2025 Injection aa&/strd brachial plexus NJX AA&/STRD BRCH PLXS IMG [facility] Start: 03-08-2025 Open treatment ulnar fracture proximal end TREAT ULNAR FRACTURE [facility] Start: 03-02-2025 [facility] Start: 02-21-2025 Patient referral [facility] Work Phone: Start: 12-10-2024 [facility] Start: 12-10-2024 End: 12-10-2024 [facility] Start: 11-30-2024 HPV TESTING HPV TESTING [facility] Start: 11-30-2024 PAP TESTING PAP TESTING [facility] Start: 11-30-2024 Screening for malignant neoplasm of cervix [facility] Start: 07-17-2024 Covid-19 Vaccine () Covid-19 Vaccine () [facility] Start: 07-17-2024 Influenza vaccination [facility] Start: 10-15-2023 Acute hepatitis 2000 panel - Serum [facility] Start: 10-15-2023 Olsaa-8-[id number].tumor marker [Units/volume] in Serum or Plasma [facility] Start: 10-15-2023 Angiotensin converting enzyme [Enzymatic activity/volume] in Serum or Plasma [facility] Start: 10-15-2023 Ceruloplasmin [Mass/volume] in Serum or Plasma [facility] Start: 10-15-2023 Copper [Moles/volume] in Serum or Plasma [facility] Start: 10-15-2023 Haptoglobin [Mass/volume] in Serum or Plasma [facility] Start: 10-15-2023 Smooth muscle Ab [Presence] in Serum [facility] Start: 10-15-2023 Transferrin [Mass/volume] in Serum or Plasma [facility] Start: 10-15-2023 [facility] Start: 07-17-2023 Covid-19 Vaccine () Covid-19 Vaccine () [facility] Start: 07-17-2023 Influenza vaccination Influenza Vaccine (#1) [facility] Start: 06-08-2023 Patient discharge [facility] Start: 05-25-2023 Patient referral [facility] Work Phone: Start: 03-26-2023 Anes colptmy vagnc colprphy incl bx w/opn urtl ANESTH SURG ON VAG/URETHRAL [facility] Start: 03-26-2023 Sling operation stress incontinence REPAIR BLADDER DEFECT [facility] Start: 03-26-2023 Patient discharge [facility] Start: 03-19-2023 ANNUAL PCP TEAM CHRONIC DISEASE VISIT ANNUAL PCP TEAM CHRONIC DISEASE VISIT [facility] Start: 03-03-2023 BP CONTROLLED (<130/80) BP CONTROLLED (<130/80) [facility] Start: 11-27-2022 ANNUAL PCP TEAM CHRONIC DISEASE VISIT ANNUAL PCP TEAM CHRONIC DISEASE VISIT [facility] Start: 10-23-2022 Anes transurethral w/urethrocystoscopy nos ANESTH BLADDER SURGERY [facility] Start: 10-23-2022 Cysto calibration dilat urtl strix/stenosis CYSTOSCOPY AND TREATMENT [facility] Start: 10-23-2022 Patient discharge [facility] Start: 10-20-2022 Patient referral [facility] Work Phone: Start: 10-14-2022 Mammography MAMMOGRAM [facility] Start: 10-14-2022 Screening for malignant neoplasm of breast Mammogram Screening [facility] Start: 08-26-2022 3 comp foot exam completed DIABETIC FOOT EXAM [facility] Start: 08-26-2022 Diabetic foot examination Diabetic Foot Exam [facility] Start: 08-13-2022 FECAL OCCULT BLOOD FECAL OCCULT BLOOD [facility] Start: 08-13-2022 Screening for malignant neoplasm of colon Fecal Occult Blood [facility] Start: 08-01-2022 Hepatitis B surface antibody level LDL CHOLESTEROL [facility] Start: 07-31-2022 Patient referral [facility] Work Phone: Start: 07-17-2022 Influenza vaccination INFLUENZA (#1) [facility] Start: 05-29-2022 Patient referral [facility] Work Phone: Start: 05-25-2022 Hemoglobin A1c measurement HbA1C [facility] Start: 05-25-2022 Hemoglobin A1c/Hemoglobin.total in Blood HBA1C [facility] Start: 04-18-2021 COVID-19 VACCINE (2 - Booster for Lamin series) COVID-19 VACCINE (2 - Booster for Lamin series) [facility] Start: 2020 RSV Vaccine (1 - 1-dose 60+ series) RSV Vaccine (1 - 1-dose 60+ series) [facility] Start: 2020 RSV Vaccine (1 - Risk 60-74 years 1-dose series) RSV Vaccine (1 - Risk 60-74 years 1-dose series) [facility] Start: 07-15-2019 BP CONTROLLED (<130/80) BP CONTROLLED (<130/80) [facility] Start: 2015 Influenza vaccination LUNG CANCER SCREENING [facility] Start: 08-16-2013 PNEUMOCOCCAL (2 - PCV) PNEUMOCOCCAL (2 - PCV) [facility] Start: 08-16-2013 Pneumococcal vaccination Pneumococcal Vaccine (2 of 2 - PCV) [facility] Start: 08-16-2013 Pneumococcal Vaccine: 50+ (2 of 2 - PCV) Pneumococcal Vaccine: 50+ (2 of 2 - PCV) [facility] Start: 2010 Influenza vaccination LUNG CANCER SCREENING [facility] Start: 2010 Screening for malignant neoplasm of lung Lung Cancer Screening [facility] Start: 2010 SHINGRIX VACCINE (1 of 2) SHINGRIX VACCINE (1 of 2) [facility] Start: 2005 COLOGUARD (FIT-DNA) COLOGUARD (FIT-DNA) [facility] Start: [address] COLONOGRAPHY [facility] Start: 2005 Screening for malignant neoplasm of colon [facility] Start: 2005 SIGMOIDOSCOPY SIGMOIDOSCOPY [facility] Start: 1978 SPIROMETRY SPIROMETRY [facility] Start: 1970 Glaucoma screening Dilated Retinal Exam [facility] Start: 1970 Hepatitis B screening URINE ALBUMIN:CREATININE RATIO [facility] Start: 1970 Hepatitis C antibody, confirmatory test DILATED RETINAL EXAM [facility] Catheterization of left heart [facility] CT Abdomen [facility] CT Chest [facility] CT Unspecified body region WO contrast [facility] CTA Head vessels and Neck vessels W contrast IV [facility] DXA Bone [Mass/Area] Bone density [facility] Electrocardiographic procedure [facility] Work Phone: Electrocardiographic procedure [facility] Exercise tolerance test [facility] Hepatitis A virus Ig M Ab [Presence] in Serum [facility] Hepatitis B core ant ibody measurement, IgM type [facility] Hepatitis B surface antigen measurement [facility] Hepatitis C antibody measurement [facility] Influenza virus A an d B RNA and SARS-CoV-2 (COVID-19) N gene panel - Respiratory specimen by ARMAND with probe detection COVID WITH FLUA+B, ROUTINE Microbiology Routine Suspected COVID-19 virus infection Ordered: 03/03/2022 [facility] Work Phone: Comment on above: Ordered: 03/03/2022 Lipid 1996 panel - S brice or Plasma [facility] Liver stiffness by US.transient elastography [facility] End: 12-19-2023 MONTRELL SCREENING MONTRELL SCREENING Radiology Routine Encounter for screening mammogram for breast cancer 1 Occurrences starting 11/19/2022 until 12/19/2023 [facility] Work Phone: Comment on above: 1 Occurrences starting 11/19/2022 until 12/19/2023 End: 12-03-2024 MONTRELL SCREENING MONTRELL SCREENING Radiology Routine Encounter for screening mammogram for breast cancer 1 Occurrences starting 11/04/2023 until 12/03/2024 [facility] Work Phone: Comment on above: 1 Occurrences starting 11/04/2023 until 12/03/2024 Measurement of respi ratory function [facility] MR Brain WO contrast [facility] MR Lumbar spine [facility] Work Phone: MRA Head vessels W c ontrast IV [facility] MRA Neck vessels WO [facility] Neutrophil cytoplasm ic Ab.classic [Units/volume] in Serum [facility] P-ANCA measurement [facility] Work Phone: Patient referral [facility] Work Phone: T4 free measurement [facility] Thyroid stimulating hormone measurement [facility] Vitamin D, 25-hydrox y measurement [facility] Vitamin D, 25-hydrox y measurement [facility] XR Lumbar spine 2 or 3 Views [facility] Work Phone: [facility] Immunizations Immunization Date Immunization Notes Care Provider Charisma romero 09-24-2022 influenza, injectabl e, quadrivalent, preservative free Dr. Dannielle Thomas Work Phone: [facility] 09-24-2022 influenza, seasonal, injectable Dr. James Watson Work Phone: [facility] 09-24-2022 influenza virus vacc ine, unspecified formulation Rafaela Gómez RN [facility] 08-20-2021 influenza, seasonal, injectable Ciara Rajguru EMERGENCY MEDICAL TECHNICIAN/DRIVER.NECKTIES PAINTER Work Phone: [facility] Work Phone: 08-20-2021 influenza virus vacc ine, unspecified formulation James Watson MD Work Phone: [facility] 02-21-2021 COVID-19 vaccine (LAMIN) Ciara Rajguru EMERGENCY MEDICAL TECHNICIAN/DRIVER.NECKTIES PAINTER Work Phone: [facility] Work Phone: 09-13-2019 influenza virus vacc ine, unspecified formulation Ciara Rajguru EMERGENCY MEDICAL TECHNICIAN/DRIVER.NECKTIES PAINTER Work Phone: [facility] 04-27-2019 tetanus toxoid, redu dianne diphtheria toxoid, and acellular pertussis vaccine, adsorbed Ciara Rajguru EMERGENCY MEDICAL TECHNICIAN/DRIVER.NECKTIES PAINTER Work Phone: [facility] 09-03-2018 influenza, injectabl e, quadrivalent, contains preservative Ciara Rajguru EMERGENCY MEDICAL TECHNICIAN/DRIVER.NECKTIES PAINTER Work Phone: [facility] 09-24-[address] James Watson Work Phone: [facility] 09-24-2016 influenza, seasonal, injectable Ciara Rajguru EMERGENCY MEDICAL TECHNICIAN/DRIVER.NECKTIES PAINTER Work Phone: [facility] 09-24-2016 influenza, seasonal, injectable, preservative free Ciara Rajguru EMERGENCY MEDICAL TECHNICIAN/DRIVER.NECKTIES PAINTER Work Phone: [facility] 09-19-2015 influenza, injectabl e, quadrivalent, contains preservative Ciara Rajguru EMERGENCY MEDICAL TECHNICIAN/DRIVER.NECKTIES PAINTER Work Phone: [facility] 11-10-2013 influenza virus vacc ine, unspecified formulation Ciara Rajcaesarru EMERGENCY MEDICAL TECHNICIAN/DRIVER.NECKTIES PAINTER Work Phone: [facility] 08-16-[address] James Watson Work Phone: [facility] 08-16-2013 influenza, seasonal, injectable, preservative free Ciara Analiru EMERGENCY MEDICAL TECHNICIAN/DRIVER.NECKTIES PAINTER Work Phone: [facility] 08-16-2012 pneumococcal polysaccharide vaccine, 23 valent Ciara Rajguru EMERGENCY MEDICAL TECHNICIAN/DRIVER.NECKTIES PAINTER Work Phone: [facility] 08-16-[address] Gabino Watson Work Phone: [facility] Work Phone: 08-16-2012 pneumococcal vaccine , unspecified formulation Dr. James Watson Work Phone: [facility] 08-19-2010 pneumococcal polysaccharide vaccine, 23 valent Ciara Rajguru EMERGENCY MEDICAL TECHNICIAN/DRIVER.NECKTIES PAINTER Work Phone: [facility] Payers Date Payer Category Payer Self-pay [id number] 2017 Medicare MMO MEDICARE MMO MEDADVANTAGE O [id number] 2017-Present [phone] [address] [place] [address] O [id number] 2017 Medicare MMO MEDICARE MMO MEDADVANTAGE O [id number] 2017-Present [phone] [address] [place] [address] O [id number] 2017 Unknown [id number] 2016 Unknown [id number] Medicare [id number] Unknown [id number] 2.16.840.1.150028.3.579.2.4 62 Unknown [id number] 2.16.840.1.937984.3.579.2.4 62 Unknown [id number] 2.16.840.1.551774.3.579.2.4 62 Unknown [id number] 2.16.840.1.767057.3.579.2.4 62 Unknown [id number] 2.16.840.1.552864.3.579.2.4 62 Unknown [id number] 2.16.840.1.063920.3.579.2.4 62 Unknown [id number] 2.16.840.1.632550.3.579.2.4 62 Unknown [id number] 2.16.840.1.957915.3.579.2.4 62 Unknown [id number] 2.16.840.1.499135.3.579.2.4 62 Unknown [id number] 2.16.840.1.699769.3.579.2.4 62 Unknown [id number] 2.16.840.1.747119.3.579.2.4 62 Unknown [id number] 2.16.840.1.047406.3.579.2.4 62 Unknown [id number] 2.16.840.1.969596.3.579.2.4 62 Unknown [id number] 2.16.840.1.922992.3.579.2.4 62 Unknown [id number] 2.16.840.1.372936.3.579.2.4 62 Unknown [id number] 2.16.840.1.434546.3.579.2.4 62 Unknown [id number] 2.16.840.1.120521.3.579.2.4 62 Unknown [id number] 2.16.840.1.217185.3.579.2.4 62 Unknown [id number] 2.16.840.1.637805.3.579.2.4 62 Unknown [id number] 2.16.840.1.914208.3.579.2.4 62 Unknown [id number] 2.16.840.1.027710.3.579.2.4 62 Unknown [id number] 2.16.840.1.187464.3.579.2.4 62 Unknown [id number] 2.16.840.1.046257.3.579.2.4 62 Unknown [id number] 2.16.840.1.539002.3.579.2.4 62 Unknown [id number] 2.16.840.1.687137.3.579.2.4 62 Unknown [id number] 2.16.840.1.525623.3.579.2.4 62 Unknown [id number] 2.16.840.1.950009.3.579.2.4 62 Unknown [id number] 2.16.840.1.060204.3.579.2.4 62 Unknown [id number] 2.16.840.1.866866.3.579.2.4 62 Unknown [id number] 2.16.840.1.234457.3.579.2.4 62 Unknown [id number] 2.16.840.1.481501.3.579.2.4 62 Unknown [id number] 2.16.840.1.190236.3.579.2.4 62 Unknown [id number] 2.16.840.1.810663.3.579.2.4 62 Unknown [id number] 2.16.840.1.166799.3.579.2.4 62 Unknown [id number] 2.16.840.1.309515.3.579.2.4 62 Unknown [id number] 2.16.840.1.857044.3.579.2.4 62 Unknown [id number] 2.16.840.1.127069.3.579.2.4 62 Unknown [id number] 2.16.840.1.469699.3.579.2.4 62 Unknown [id number] 2.16.840.1.401166.3.579.2.4 62 Unknown [id number] 2.16.840.1.147175.3.579.2.4 62 Social History Date Type Detail Facility Start: 10-16-2021 End: 05-07-2024 Tobacco smoking status VTIS Smokes tobacco daily [facility] Work Phone: History of tobacco use Cigarette Smoker [facility] Start: 02-17-2022 End: 05-07-2024 Alcohol intake Current drinker of alcohol (finding) [facility] Start: 02-17-2022 End: 11-28-2022 Alcohol intake [facility] Start: 09-11-2021 End: 03-19-2022 History SDOH Alcohol Frequency 2 [facility] Start: 09-11-2021 End: 03-19-2022 History SDOH Alcohol Std Drinks 1 [facility] Start: 09-11-2021 End: 03-19-2022 History SDOH Social Connections Phone 5 [facility] Start: 09-11-2021 End: 03-19-2022 History SDOH Social Connections Living 4 [facility] Start: 09-11-2021 History SDOH Physica l Activity DPW 0 [facility] Start: 09-06-2015 End: 05-07-2024 Tobacco Comment trying to quit [facility] Start: 1960 Sex Assigned At Female [facility] Start: 12-22-2021 End: 04-03-2022 Exposure to SARS-CoV-2 (event) Not sure [facility] Start: 03-19-2022 History SDOH Social Connections Get Together 98 [facility] Start: 03-19-2022 History SDOH Physica l Activity DPW 3 [facility] Start: 06-27-2020 End: 10-15-2023 Tobacco smoking status VTIS Unknown if ever smoked [facility] Start: 07-31-2021 None [facility] Start: 07-31-2021 Homeless [facility] Start: 07-31-2021 Cigarettes [facility] Start: 10-16-2021 End: 05-07-2024 Tobacco use and exposure Smokeless tobacco non-user [facility] Work Phone: Start: 03-19-2022 End: 11-28-2022 Social connection and isolation panel [facility] How often do you get together with friends or relatives? Patient refused [facility] Are you now , , , , never or living with a partner? [facility] How often to you hav e a drink containing alcohol? Never [facility] (I/We) worried asael er (my/our) food would run out before (I/we) got money to buy more. Never true [facility] In the past 12 month s, was there a time when you were not able to pay the mortgage or rent on time? No [facility] Start: 03-22-2019 Gender identity Identifies as female gender (finding) [facility] Start: 03-22-2019 Sexual orientation Heterosexual (sarina acosta) [facility] How often to you hav e a drink containing alcohol? Monthly or less [facility] How many standard drinks containing alcohol do you have on a typical day? 1 or 2 [facility] Do you feel stress - tense, restless, nervous, or anxious, or unable to sleep at night because your mind is troubled all the time - these days [OSQ] Very much [facility] Start: 12-15-2024 End: 05-19-2025 Tobacco smoking status NHIS Ex-smoker (finding) [facility] Start: 02-02-2025 End: 03-02-2025 Sex Female (finding) [facility] NEGATED: Highlighted row [facility] NEGATED: Highlighted row Not [facility] Medical Equipment Procedure Code Equipment Code Equipment Origin al Text Equipment Identifier Dates ORIF, elbow 2.7 variable ang le locking screw FDA Start: 03-08-2025 ORIF, elbow Elbow radius prosthesis [id number] FDA Start: 03-08-2025 ORIF, elbow 2.7 variable ang le locking screw FDA Start: 03-08-2025 ORIF, elbow 2.7/3.5mm variab le angle lcp olecranon plate FDA Start: 03-08-2025 ORIF, elbow 2.7mm cortex screw FDA Start : 03-08-2025 ORIF, elbow 2.7mm cortex screw FDA Start : 03-08-2025 ORIF, elbow 2.7mm lcp plate FDA Start: 03-08-2025 ORIF, elbow 2.7mm variable angle locking screw FDA Start: 03-08-2025 ORIF, elbow 3.5 mm cortex screws FDA Start: 03-08-2025 ORIF, elbow 3.5mm locking screw FDA Star t: 03-08-2025 ORIF, elbow 2.7 variable ang le locking screw FDA Start: 03-08-2025 ORIF, elbow 2.7 variable ang le locking screw FDA Start: 03-08-2025 ORIF, elbow 2.7/3.5mm variab le angle lcp olecranon plate FDA Start: 03-08-2025 ORIF, elbow 2.7mm cortex screw FDA Start : 03-08-2025 ORIF, elbow 2.7mm cortex screw FDA Start : 03-08-2025 ORIF, elbow 2.7mm lcp plate FDA Start: 03-08-2025 ORIF, elbow 2.7mm variable angle locking screw FDA Start: 03-08-2025 ORIF, elbow 3.5 mm cortex screws FDA Start: 03-08-2025 ORIF, elbow 3.5mm locking screw FDA Star t: 03-08-2025 ORIF, elbow 2.7 variable ang le locking screw FDA Start: 03-08-2025 ORIF, elbow 2.7 variable ang le locking screw FDA Start: 03-08-2025 ORIF, elbow 2.7/3.5mm variab le angle lcp olecranon plate FDA Start: 03-08-2025 ORIF, elbow 2.7mm cortex screw FDA Start : 03-08-2025 ORIF, elbow 2.7mm cortex screw FDA Start : 03-08-2025 ORIF, elbow 2.7mm lcp plate FDA Start: 03-08-2025 ORIF, elbow 2.7mm variable angle locking screw FDA Start: 03-08-2025 ORIF, elbow 3.5 mm cortex screws FDA Start: 03-08-2025 ORIF, elbow 3.5mm locking screw FDA Star t: 03-08-2025 ORIF, elbow 2.7 variable ang le locking screw FDA Start: 03-08-2025 ORIF, elbow 2.7 variable ang le locking screw FDA Start: 03-08-2025 ORIF, elbow 2.7/3.5mm variab le angle lcp olecranon plate FDA Start: 03-08-2025 ORIF, elbow 2.7mm cortex screw FDA Start : 03-08-2025 ORIF, elbow 2.7mm cortex screw FDA Start : 03-08-2025 ORIF, elbow 2.7mm lcp plate FDA Start: 03-08-2025 ORIF, elbow 2.7mm variable angle locking screw FDA Start: 03-08-2025 ORIF, elbow 3.5 mm cortex screws FDA Start: 03-08-2025 ORIF, elbow 3.5mm locking screw FDA Star t: 03-08-2025 ORIF, elbow 2.7 variable ang le locking screw FDA Start: 03-08-2025 ORIF, elbow 2.7 variable ang le locking screw FDA Start: 03-08-2025 ORIF, elbow 2.7/3.5mm variab le angle lcp olecranon plate FDA Start: 03-08-2025 ORIF, elbow 2.7mm cortex screw FDA Start : 03-08-2025 ORIF, elbow 2.7mm cortex screw FDA Start : 03-08-2025 ORIF, elbow 2.7mm lcp plate FDA Start: 03-08-2025 ORIF, elbow 2.7mm variable angle locking screw FDA Start: 03-08-2025 ORIF, elbow 3.5 mm cortex screws FDA Start: 03-08-2025 ORIF, elbow 3.5mm locking screw FDA Star t: 03-08-2025 ORIF, elbow 2.7 variable ang le locking screw FDA Start: 03-08-2025 ORIF, elbow 2.7 variable ang le locking screw FDA Start: 03-08-2025 ORIF, elbow 2.7/3.5mm variab le angle lcp olecranon plate FDA Start: 03-08-2025 ORIF, elbow 2.7mm cortex screw FDA Start : 03-08-2025 ORIF, elbow 2.7mm cortex screw FDA Start : 03-08-2025 ORIF, elbow 2.7mm lcp plate FDA Start: 03-08-2025 ORIF, elbow 2.7mm variable angle locking screw FDA Start: 03-08-2025 ORIF, elbow 3.5 mm cortex screws FDA Start: 03-08-2025 ORIF, elbow 3.5mm locking screw FDA Star t: 03-08-2025 Test blood sugar (s) 1 times daily. Dx: Type 2 DM - Uncontrolled E11.65 Insulin: No [id number] Start: 08-26-2021 Comment on above: Test blood sugar(s) 1 times daily. Dx: Type 2 DM - Uncontrolled E11.65 Insulin: No [id number]) [id number] FDA Start: 03-26-2023 Goals Date Patient Goal Desired Activity /State Functional Status Date Assessment Result Facility 03-26-2023 Functional status Ambulates;Bathroom Priv [facility] Work Phone: 10-23-2022 Functional status Ambulates;Bathroom Priv [facility] Work Phone: Mental Status Date Assessment Result Facility 03-08-2025 Cognitive function Voice/Name [facility] Work Phone: 06-19-2023 Cognitive function Level Of Cons ciousness Awake;Alert;Appropriate [facility] Work Phone: 03-26-2023 Cognitive function Voice/Name [facility] Work Phone: 10-23-2022 Cognitive function Level Of Consciousness Drowsy [facility] Work Phone: 10-23-2022 Cognitive function Patient Orien tation Person;Place;Time [facility] Work Phone: Clinical Notes 07-28-2018 to 06-21-2025 Note Date & Type Note Facility 06-21-2025 Discharge summary Note Date/Time June 21, 2025 3:42pm [facility] Physical Therapy [facility] [address] [place] [address] / REHABILITATION SERVICES DISCHARGE SUMMARY MR#: [id number] Acct: [id number] Name: BRITNEY MARIE Rep #: [id number] : 1960 64 From: Dylan Jolley DPT, OCS, CSCS Referring Dr.: Dr. Dominik Loza MD Status: REG RCR Insurance: MMO MEDICARE SELF PAY INSURANCE Patient Information Patient Information: BRITNEY MARIE was seen in my office for initial evaluation on 03/30/25. The following Plan of Care was established for this patient: POC Established Initial Frequency: 1-2x /Week Initial Duration: 2 Months Anticipated Interventions Patient/Client Instruction: Educate patient on: Condition and Plan of Care For the Purpose of:: To decrease pain, To decrease swelling/inflammation, To increase ROM, To improve ability to perform ADL's, To improve performance and independence with ADL's, To increase flexibility/ROM, To assume or resume ADL's and To improve tolerance to ADL's Therapeutic Exercise to Include: Strength training, Passive ROM and Active ROM For the Purpose of:: To decrease pain, To decrease swelling/inflammation, To increase ROM, To improve ability to perform ADL's, To improve performance and independence with ADL's, To increase flexibility/ROM, To assume or resume ADL's and To improve tolerance to ADL's Functional Training to Include: ADL Training For the Purpose of:: To decrease pain, To increase ROM, To improve ability to perform ADL's, To improve performance and independence with ADL's, To assume or resume ADL's and To improve tolerance to ADL's Manual Therapy Techniques to Include: Passive ROM and Soft tissue mobilization For the Purpose of:: To decrease pain, To increase ROM, To improve ability to perform ADL's, To improve performance and independence with ADL's, To increase flexibility/ROM, To assume or resume ADL's and To improve tolerance to ADL's Orthotics: Brace Supportive Equipment: Compression garments and Wraps For the Purpose of:: To decrease pain, To decrease swelling/inflammation, To improve ability to perform ADL's, To improve performance and independence with ADL's, To assume or resume ADL's and To improve tolerance to ADL's TENS: Yes IF ES: Yes Cryotherapy (ice pack, ice massage): Yes For the Purpose of:: To decrease pain, To decrease swelling/inflammation, To improve ability to perform ADL's, To improve performance and independence with ADL's and To improve tolerance to ADL's Last Seen Last Seen: This patient was last seen in our office 04/27/25. Pertinent comments regardingtheir Physical therapy will appear below: Pt seen 2 visits of POC for x progression of ROM. Did not schedule or attend any further visits. at this point, it has been over 6 weeks and I will discontinue from my care. At this point I will be discontinuing this patient from physical therapy. I would be happy to see this patient again in the future if found appropriate by the physician. Thank you! Dylan Jolley DPT, ELENA, JOSE Balance/Gait/Functional tests Balance/Special Test Scores Quick DASH Score: 90.9075 <Electronically signed by ELENA Fofana DPT, CSCS> 06/21/25 1542 CC: Dr. Dominik Loza MD; Dr. Dannielle Thomas MD ~ EBG Signed [facility] Work Phone: 1(768) 621-157108-06-2025 Discharge summary [facility] Physical [facility] [address] [place] [address] [address] [place] [address] / REHABILITATION SERVICES DISCHARGE SUMMARY MR#: [id number] Acct: [id number] Name: BRITNEY MARIE Rep #: [id number] : 1960 64 From: ELENA Fofana DPT, CSCS Referring Dr.: Dr. Dominik Loza MD Status: REG RCR Insurance: MMO MEDICARE SELF PAY INSURANCE Patient Information Patient Information: BRITNEY MARIE was seen in my office for initial evaluation on 03/30/25. The following Plan of Care was established for this patient: POC Established Initial Frequency: 1-2x /Week Initial Duration: 2 Months Anticipated Interventions Patient/Client Instruction: Educate patient on: Condition and Plan of Care For the Purpose of:: To decrease pain, To decrease swelling/inflammation, To increase ROM, To improve ability to perform ADL's, To improve performance and independence with ADL's, To increase flexibility/ROM, To assume or resume ADL's and To improve tolerance to ADL's Therapeutic Exercise to Include: Strength training, Passive ROM and Active ROM For the Purpose of:: To decrease pain, To decrease swelling/inflammation, To increase ROM, To improve ability to perform ADL's, To improve performance and independence with ADL's, To increase flexibility/ROM, To assume or resume ADL's and To improve tolerance to ADL's Functional Training to Include: ADL Training For the Purpose of:: To decrease pain, To increase ROM, To improve ability to perform ADL's, To improve performance and independence with ADL's, To assume or resume ADL's and To improve tolerance to ADL's Manual Therapy Techniques to Include: Passive ROM and Soft tissue mobilization For the Purpose of:: To decrease pain, To increase ROM, To improve ability to perform ADL's, To improve performance and independence with ADL's, To increase flexibility/ROM, To assume or resume ADL'sand To improve tolerance to ADL's Orthotics: Brace Supportive Equipment: Compression garments and Wraps For the Purpose of:: To decrease pain, To decrease swelling/inflammation, To improve ability to perform ADL's, To improve performance and independence with ADL's, To assume or resume ADL's and To improve tolerance to ADL's TENS: Yes IF ES: Yes Cryotherapy (ice pack, ice massage): Yes For the Purpose of:: To decrease pain, To decrease swelling/inflammation, To improve ability to perform ADL's, To improve performance and independence with ADL's and To improve tolerance to ADL's Last Seen Last Seen: This patient was last seen in our office 04/27/25. Pertinent comments regardingtheir Physical therapy will appear below: Pt seen 2 visits of POC for x progression of ROM. Did not schedule or attend any further visits. atthis point, it has been over 6 weeks and I will discontinue from my care. At this point I will be discontinuing this patient from physical therapy. I would be happy to see this patient again in the future if found appropriate by the physician. Thank you! Dylan Jolley, DPT, OCS, CSCS Balance/Gait/Functional tests Balance/Special Test Scores Quick DASH Score: 90.9075 06/21/25 1542 CC: Dr. Dominik Loza MD; Dr. Dannielle Thomas MD ~ EBG Signed [facility]06-03-2025 Progress [facility] [place] [address] OFFICE VISIT Date of Service: 04/18/25 MR#: [id number] Acct: [id number] Name: BRITNEY MARIE Rep #: [id number] : 1960 Provider: Dr. Nghia Urena MD Age/Sex: 64/F Location: [facility] Status: Signed Intake Vital Signs 03/08/25 11:21 04/18/25 13:21 Height 5 ft 1 in 5 ft 1 in Weight: 170 lb BMI 32.1 Intake Visit Reasons: RIGHT ELBOW Chief Complaint: Right Elbow 1 month post op Accompanied by: Self Is patient in pain?: Yes Pain scale (1-10): 3 Allergies acetaminophen Allergy (Severe, Verified 04/18/25 13:25) Hives hydrocodone bitartrate (From Vicodin) Allergy (Severe, Verified 04/18/25 13:25) Hives hydromorphone HCl (From Dilaudid) Allergy (Severe, Verified 04/18/25 13:25) Hives, feels like on fire Penicillins Allergy (Severe, Verified 04/18/25 13:25) Anaphylaxis propoxyphene napsylate (From Darvocet-N 100) Allergy (Severe, Verified 04/18/25 13:25) Hives Sulfa (Sulfonamide Antibiotics) Allergy (Severe, Verified 04/18/25 13:25) Hives adhesive Allergy (Verified 04/18/25 13:25) Rash budesonide (From Symbicort) Allergy (Verified 04/18/25 13:25) Angioedema cephalexin monohydrate (From Keflex) Allergy (Verified 04/18/25 13:25) Rash formoterol (From Symbicort) Allergy (Verified 04/18/25 13:25) Angioedema Heparin Analogues Allergy (Verified 04/18/25 13:25) severe bruising and rash latex Allergy (Verified 04/18/25 13:25) Rash levofloxacin (From Levaquin) Allergy (Verified 04/18/25 13:25) Swelling, rash oxycodone HCl (From Percocet) Allergy (Verified 04/18/25 13:25) Hives oxytocin Allergy (Verified 04/18/25 13:25) Hives Medications ?Medication ?Instructions ?Recorded ?Confirmed ?Type PEP device #1 ea 02/27/20 04/18/25 Rx nitroglycerin 0.4 mg sublingual 0.4 mg sublingual Q5-1 5M PRN chest 01/23/23 04/18/25 Rx tablet pain #25 tabs aspirin 81 mg tablet,delayed 81 mg PO DAILY #30 tabs 0 05/21/23 04/18/25 Rx release omeprazole 20 mg tablet,delayed 20 mg PO DAILY heartbu rn 03/22/24 04/18/25 Histo ry release ergocalciferol (vitamin D2) 1,250 1,250 mcg PO WE #12 caps 09/19/24 04/18/25 Rx mcg (50,000 unit) capsule (Vitamin D2) losartan 50 mg tablet 50 mg PO BID #180 tabs 09/1904/18/25 Rx ezetimibe 10 mg tablet (Zetia) 10 mg PO DAILY #90 tabs 10/05/24 04/18/25 Rx bupropion HCl 200 mg tablet,12 hr 200 mg PO DAILY #90 ea 10/31/24 04/18/25 Rx sustained-release albuterol sulfate 90 mcg/actuation 2 puff inhalation Q 6H PRN 12/10/24 04/18/25 Rx aerosol inhaler shortness of breath or wheez ing #8.5 grams ondansetron 4 mg disintegrating 4 mg PO Q8H PRN nausea and 01/23/25 04/18/25 Rx tablet vomiting #10 tabs trazodone 50 mg tablet 25 mg (1/2 x 50 mg) PO QDAY PRN 01/23/25 04/18/25 Rx sleep #30 tabs escitalopram oxalate 10 mg tablet 10 mg PO QHS 03/03/ 5 04/18/25 History (Lexapro) semaglutide 2 mg/dose (8 mg/3 mL) 2 mg subcut WE 03/0304/18/25 History subcutaneous pen injector (Ozempic) docusate sodium 100 mg capsule 100 mg PO BID #20 caps 03/07/25 04/18/25 Rx (Dulcolax Stool Softener (docusate)) loratadine 10 mg tablet 10 mg PO DAILY 03/08/2502/07 History morphine 15 mg immediate release 15 mg PO BID PRN pain 5 days #10 03/15/25 04/18/25 Rx tablet tabs Have you fallen in the past year?: No PFSH Medical History Abrasion Fatty liver Low iron Restless legs Back pain Injury of head and neck TIA (transient ischemic attack) Syncope Dietary restriction History of hiatal hernia Former smoker Cervical radiculopathy Fatty liver disease, nonalcoholic Nausea and vomiting Body aches URI (upper respiratory infection) UTI (urinary tract infection) Severe headache Obesity Diabetes Stress incontinence Tachycardia Cardiology follow-up encounter HPV (human papilloma virus) anogenital infection Chest pain COVID-19 (01/04/23) Urethral stenosis Wears dentures Cancer Marijuana use Ambulates with cane High cholesterol TIA (transient ischemic attack) Gastric reflux History of IBS CPAP (continuous positive airway pressure) dependence Chronic cough COPD (chronic obstructive pulmonary disease) Leg cramps History of pain when walking History of echocardiogram History of stress test Vitamin D deficiency Vascular disease History of stomach ulcers Osteoporosis Neuropathy Liver disease IBS (irritable bowel syndrome) Arthritis Nonobstructive atherosclerosis of coronary artery Essential (primary) hypertension Incidental lung nodule, > 3mm and < 8mm Tobacco abuse MELYSSA (obstructive sleep apnea) Trigeminal neuralgia Dysmetabolic syndrome DDD (degenerative disc disease), cervical Asthma DJD (degenerative joint disease) Chronic obstructive lung disease Hyperlipidemia Depression Surgical History History of cystoscopy History of cystoscopy H/O dilation of urethra History of repair of hiatal hernia History of cardiac catheterization History of sinus surgery History of cervical spinal surgery History of tubal ligation History of appendectomy History of cholecystectomy Family History Mother Cancer Father Cancer Myocardial infarction Sister Cancer Other Alcoholism Anxiety Arthritis Blood clot associated with vein wall inflammation Breast cancer Cervical cancer Depression Melanoma Mental disorder Osteoporosis Social History Smoking Status: Former smoker Tobacco: How many years used: 54 second hand exposure: Yes alcohol intake: current alcohol intake frequency: holidays/special occasions only substance use type: does not use, former substance user Date of last use: 2004 and crack/cocaine caffeine: Yes what type of physical activity do you participate in: none HPI RIGHT ELBOW Details: This documentation accurately reflects the service provided and the decisions made by me, Dr. Silver MD 04/18/25 1034. Part of today?s visit was documented by [ ], acting as scribe. BRITNEY MARIE is a 64 year old F here today for 6 weeks FU Right elbow open reduction internal fixation olecranon and right radial head arthroplasty. Doingwell no acute concerns doing physical therapy range of motion is improving usingthe brace. Supplemental Info X-rays taken today show good alignment of the joint fracture appears to be healing still good alignment of the radiocapitellar joint. Coding Level of Care Code Global Post Op Diagnoses Elbow fracture, right S42.401A Assessment and Plan Assessment and Plan (1) Elbow fracture, right: Status: Acute Plan: BRITNEY MARIE is a 64 year old F here today for 6 weeks FU Right elbow open reduction internal fixation olecranon and right radial head arthroplasty. Overall patient is doing well some mild stiffness as to be expected. The patient can keep on working on stretching gradually discontinue the brace over the next 1 to 2 weeks start some light strengthening and follow-up in 6 to 8 weeks time. He understood no further questions or concerns. Still recommend avoiding any sort of aggressive activities at this point. Orders: Orders Elbow min 3 Views Today S42.401A - Unspecified fracture of lower end of right humerus, initial encounter for closed fracture Clinical Quality Measures Falls Risk Screening/Assistive Devices Have you fallen in the past year?: No Ortho Exam General General: Yes no acute distress Neurologic: Yes alert and Yes oriented x3 Psychologic: Yes reasonable and appropriate Right Elbow Skin/Wound: Yes CDI, Yes healed, No eccymosis, No erythema and No Swelling ROM: Yes Supination 0-90 and Pronation 0-80 Sensation: Radial: I, Ulnar: I and Median: I Motor: Elbow Extension: 4, Elbow Flexion: 4, EPL: 5, FDP-2: 5 and 1st Dorsal Interosseous: 5 ELBOW: forearm soft. ROM 10-95. 04/18/25 1347 n MD> Date _ Gurwinder Bonilla Signature: Date (if applicable) CC: ~ [facility] Uvxewljv08-22-2074 Evaluation note* Diagnosis Onset Date Resolution Status Admit Date Elbow fracture, right acute March 21, 2025 10:44am Elbow fracture, right acute Eliel e 2024 1:21pm Elbow fracture, right acute Eliel e 2024 1:21pm Diabetes chronic May 02 1:21pm Essential (primary) hypertension chr onic May 02, 2025 1:21pm Hyperlipidemia chronic May 02, 2025 1:21pm Acute bronchitis acute May 11:17am [facility] Work Phone: 1(941) 651-731704-23-2025 [facility]04-17-2025 Radiology Diagnostic study [facility]04-17-2025 Radiology Diagnostic study [facility]04-17-2025 Radiology Diagnostic study [facility]04-17-2025 Radiology Diagnostic study note [facility]04-17-2025 Radiology Diagnostic study [facility]04-17-2025 Radiology Diagnostic study [facility]04-10-2025 Evaluation note* Diagnosis Onset Date Resolution Status Admit Date Cervical radiculopathy acute Ap 2024 1:17pm Nausea and vomiting acute February 23, 2025 1:17pm Other intervertebral disc degeneration, lumbar region with discogenic back acute February 23, 2025 1:17pm Essential (primary) hypertension chr onic February 23, 2025 1:17pm Hyperlipidemia chronic February 1:17pm MELYSSA (obstructive sleep apnea) chroni c February 23, 2025 1:17pm Closed fracture of right elbow inact mayuri March 03, 2025 9:53am Elbow fracture, right acute Apr il 2024 10:55am Closed fracture of right elbow inact mayuri March 08, 2025 10:55am Elbow fracture, right acute Apr il 2024 10:51am Elbow fracture, right acute March 21, 2025 10:44am Elbow fracture, right acute Eliel e 2024 1:21pm Elbow fracture, right acute Eliel e 2024 1:21pm Diabetes chronic May 02 1:21pm Essential (primary) hypertension chr onic May 02, 2025 1:21pm Hyperlipidemia chronic May 02, 2025 1:21pm Acute bronchitis acute May 11:17am [facility] Work Phone: 1(128) 576-837403-10-2025 Evaluation note* Diagnosis Onset Date Resolution Status Admit Date Fatty liver disease, nonalcoholic acute January 23, 2025 2:31pm Nausea and vomiting acute January 23, 2025 2:31pm Osteoporosis acute January 23, 2025 2:31pm Severe headache acute January 2:31pm URI (upper respiratory infection) acute January 23, 2025 2:31pm Diabetes chronic January 23 2:31pm Essential (primary) hypertension chr onic January 23, 2025 2:31pm Hyperlipidemia chronic January 2:31pm MELYSSA (obstructive sleep apnea) chroni c January 23, 2025 2:31pm Diabetes chronic January 31 3:03pm Essential (primary) hypertension chr onic January 31, 2025 3:03pm Hyperlipidemia chronic January 3:03pm Obesity chronic January 31 3:03pm Other intervertebral disc degeneration, lumbar region with discogenic back acute February 21, 2025 2:05pm Cervical radiculopathy acute Ap 2024 1:17pm Nausea and vomiting acute February 23, 2025 1:17pm Other intervertebral disc degeneration, lumbar region with discogenic back acute February 23, 2025 1:17pm Essential (primary) hypertension chr onic February 23, 2025 1:17pm Hyperlipidemia chronic February 1:17pm MELYSSA (obstructive sleep apnea) chroni c February 23, 2025 1:17pm Closed fracture of right elbow inact mayuri March 03, 2025 9:53am Elbow fracture, right acute Apr 2024 10:55am Closed fracture of right elbow inact mayuri March 08, 2025 10:55am Elbow fracture, right acute Apr 2024 10:51am Elbow fracture, right acute March 21, 2025 10:44am Elbow fracture, right acute Eliel 2024 1:21pm [facility] Work Phone: 1(630) 515-389203-10-2025 Evaluation note* Diagnosis Onset Date Resolution Status Admit Date Fatty liver disease, nonalcoholic acute January 23, 2025 2:31pm Nausea and vomiting acute January 23, 2025 2:31pm Osteoporosis acute January 23, 2025 2:31pm Severe headache acute January 2:31pm URI (upper respiratory infection) acute January 23, 2025 2:31pm Diabetes chronic January 23 2:31pm Essential (primary) hypertension chr onic January 23, 2025 2:31pm Hyperlipidemia chronic January 2:31pm MELYSSA (obstructive sleep apnea) chroni c January 23, 2025 2:31pm Diabetes chronic January 31 3:03pm Essential (primary) hypertension chr onic January 31, 2025 3:03pm Hyperlipidemia chronic January 3:03pm Obesity chronic January 31 3:03pm Other intervertebral disc degeneration, lumbar region with discogenic back acute February 21, 2025 2:05pm Cervical radiculopathy acute Ap 2024 1:17pm Nausea and vomiting acute February 23, 2025 1:17pm Other intervertebral disc degeneration, lumbar region with discogenic back acute February 23, 2025 1:17pm Essential (primary) hypertension chr onic February 23, 2025 1:17pm Hyperlipidemia chronic February 1:17pm MELYSSA (obstructive sleep apnea) chroni c February 23, 2025 1:17pm Closed fracture of right elbow inact mayuri March 03, 2025 9:53am Elbow fracture, right acute Apr 2024 10:55am Closed fracture of right elbow inact mayuri March 08, 2025 10:55am Elbow fracture, right acute Apr il 2024 10:51am Elbow fracture, right acute March 21, 2025 10:44am Elbow fracture, right acute Eliel e 2024 1:21pm Elbow fracture, right acute Eliel e 2024 1:21pm Diabetes chronic May 02 1:21pm Essential (primary) hypertension chr onic May 02, 2025 1:21pm Hyperlipidemia chronic May 02, 2025 1:21pm [facility] Work Phone: 1(334) 930-503601-30-2025 Evaluation note* Diagnosis Onset Date Resolution Status Admit Date Stress incontinence acute Jan2024 1:48pm UTI (urinary tract infection) acute December 15, 2024 1:48pm Essential (primary) hypertension chronic December 15 1:48pm COPD exacerbation inactive December 15, 2024 1:48pm Influenza A inactive December 15, 2024 1:48pm Fatty liver disease, nonalcoholic acute January 23, 2025 2:31pm Nausea and vomiting acute January 23, 2025 2:31pm Osteoporosis acute January 23, 2025 2:31pm Severe headache acute January 2:31pm URI (upper respiratory infection) acute January 23, 2025 2:31pm Diabetes chronic January 23 2:31pm Essential (primary) hypertension chronic January 23, 2025 2:31pm Hyperlipidemia chronic January 2:31pm MELYSSA (obstructive sleep apnea) chroni c January 23, 2025 2:31pm Diabetes chronic January 31 3:03pm Essential (primary) hypertension chronic January 31, 2025 3:03pm Hyperlipidemia chronic January 3:03pm Obesity chronic January 31 3:03pm Other intervertebral disc degeneration, lumbar region with discogenic back acute February 21, 2025 2:05pm Cervical radiculopathy acute 2024 1:17pm Nausea and vomiting acute February 23, 2025 1:17pm Other intervertebral disc degeneration, lumbar region with discogenic back acute February 23, 2025 1:17pm Essential (primary) hypertension chronic February 23, 2025 1:17pm Hyperlipidemia chronic February 1:17pm MELYSSA (obstructive sleep apnea) chroni c February 23, 2025 1:17pm [facility] Work Phone: 1(756) 775-557101-25-2025 History of Present illness Narrative* Bobby Piña APRN.HAM - 12/10/2024 11:31 AM EST 64-year-old female presents urgent care accompanied by family member. Chief complaint weakness chest pain shortness of breath. Patient states hurts when she takes a deep breath. Has not been able to eat for a few days due to increasing weakness. When she walks she becomes dizzy. Extensive of medical history list. With presenting symptoms referred patient to ED for further evaluation care. Will [facility]. Bobby Piña APRN.NECKTIES PAINTER documented in this encounterC[facility] Evaluation note* Diagnosis Onset Date Resolution Status Admit Date Anxiety acute October 05, 2024 10:52am Severe headache acute October 05, 2024 10:52am TIA (transient ischemic attack) acut e October 05, 2024 10:52am Essential (primary) hypertension chronic October 05, 024 10:52am Hyperlipidemia chronic September 172023 10:52am Nonobstructive atheroscleros is of coronary artery chronic September 10:52am MELYSSA (obstructive sleep apnea) chroni c October 05, 2024 10:52am Smoking greater than 30 pack years chronic October 05, 10:52am Stress incontinence acute 2024 1:48pm UTI (urinary tract infection) acute December 15, 2024 1:48pm Essential (primary) hypertension chronic December 15 1:48pm COPD exacerbation inactive December 15, 2024 1:48pm Influenza A inactive December 15, 2024 1:48pm Fatty liver disease, nonalcoholic acute January 23, 2025 2:31pm Nausea and vomiting acute January 23, 2025 2:31pm Osteoporosis acute January 23, 2025 2:31pm Severe headache acute January 2:31pm URI (upper respiratory infection) acute January 23, 2025 2:31pm Diabetes chronic January 23 2:31pm Essential (primary) hypertension chronic January 23, 2025 2:31pm Hyperlipidemia chronic January 2:31pm MELYSSA (obstructive sleep apnea) chroni c January 23, 2025 2:31pm Diabetes chronic January 31 3:03pm [facility] Work Phone: 1(433) 446-754306-22-2024 NoteHNO ID: [id number] Author: BOBBY PIÑA APRN.NECKTIES PAINTER Service: ? Author Type: Nurse Practitioner Type: Progress Notes Filed: 05/07/2024 15:46 Note Text: Subjective HPI Nontoxic-appearing female presents urgent care chief complaint possible allergic reaction. Duration of symptoms 3 days. Associated symptoms itching and redness at site of Mounjaro injection. States last week she had a small redness. This week site is larger. Has not used any OTC medications recently. Did take Benadryl does seem to help a little. Overall feels okay. No shortness of breath difficulty breathing facial swelling neck swelling nausea vomiting or belly pain. Denies any fever body aches chills productive cough chest pain shortness of breath pleuritic pain hemoptysis nausea vomiting abdominal pain change in bowel or bladder habits. Past medical history prescription medication use and allergies reviewed. 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 fluticasone (FLONASE) 50 mcg/actuation nasal spray Use 2 Sprays in each nostril once daily. Rinse mouth after use. QUEtiapine (SEROQUEL) 50 mg tablet Take 1 tablet by mouth daily at bedtime. escitalopram oxalate (LEXAPRO) 10 mg tablet Take [...] by mouth daily before breakfast. 1/2 hr be (more content not included)...[facility] 05-07-2024 History of Present illness Narrative* Bobby Piña, [facility]ON[facility] - 05/07/2024 3:29 PM EDT Images from the original note were not included. Subjective HPI Nontoxic-appearing female presents urgent care chief complaint possible allergic reaction. Durationof symptoms 3 days. Associated symptoms itching and redness at site of Mounjaro injection. States last week she had a small redness. This week site is larger. Has not used any OTC medications recently. Did take Benadryl does seem to help a little. Overall feels okay. No shortness of breath difficult y breathing facial swelling neck swelling nausea vomiting or belly pain. Denies any fever body aches chills productive cough chest pain shortness of breath pleuritic pain hemoptysis nausea vomiting abdominal pain change in bowel or bladder habits. Past medical history prescription medication use and allergies reviewed. .Patient presents with: possible allergic reaction to medication: X 3 days PAST MEDICAL HISTORY Diagnosis Date ASHD [...] 01/28/2017 Hyperlipidemia LDL goal < 70 10/14/2011 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 02/10/2017 Lumbar [...] FUSION, CERVICAL 1993 APPENDECTOMY 2005-6 CHOLECYSTECTOMY about 2005- sludge COLONOSCOPY FLX DX [...] Oxytocin, Penicillin, Percocet [Oxycodone-Acetaminophen], Polytrim [Polymyxin B Sulf- Trimethoprim], Symbicort [Budesonide-Formoterol], Tegretol [Carbamazepine], Vibramycin [Doxycycline Calcium], Vicodin [Hydrocodone-Acetaminophen], and Adhesive Tape (Rosins) MEDICATIONS buPROPion HCL (WELLBUTRIN SR) 200 mg 12 hr tablet Take 1 tablet by mouth once daily. fluticasone (FLONASE) 50 mcg/actuation nasal spray Use 2 Sprays in each nostril once daily. Rinse mouth after use. QUEtiapine (SEROQUEL) 50 mg tablet Take 1 tablet by mouth daily at bedtime. escitalopram oxalate (LEXAPRO) 10 mg tablet Take [...] 2 Puffs as instructed every 4 hours asneeded for wheezing/shortness of breath. nitroglycerin sublingual (NITROQUICK) [...] Grandmother Social History Tobacco Use Smoking status: Every Day Packs/day: 0.75 Years: 45.00 Additional pack years: 0.00 Total pack years: 33.75 Types: Cigarettes Smokeless tobacco: Never Tobacco comments: trying to quit Vaping Use Vaping Use: Never used Substance Use Topics Alcohol use: Yes Alcohol/week: 1.0 standard drink of alcohol Types: 1 Glasses of Wine (5oz) per week Drug use: Yes Types: Marijuana Comment: none since 06/2005/cocaine abuse, MEDICAL MARIJUANA DUE TO PAIN BP 122/78 Pulse 82 Temp 37.1 C (98.8 F) (Tympanic) Resp 18 Wt 87 kg (191 lb 12.8 oz) GzA693% BMI 35.89 kg/m Review of Systems Constitutional: Negative for chills, fever and malaise/fatigue. HENT: Negative for congestion, ear discharge, ear pain, sinus pain and sore throat. Eyes: Negative for blurred vision, pain, discharge and redness. Respiratory: Negative for cough, hemoptysis, sputum production, shortness of breath, wheezing and stridor. Cardiovascular: Negative for chest pain. Gastrointestinal: Negative for abdominal pain, diarrhea, nausea and vomiting. Musculoskeletal: Negative for myalgias. Skin: Positive for itching and rash. Neurological: Negative for dizziness and headaches. Objective Physical Exam Constitutional: General: She is not in acute distress. Appearance: She is not toxic-appearing. HENT: Head: Normocephalic. Nose: Nose normal. Eyes: Pupils: Pupils are equal, round, and reactive to light. Cardiovascular: Rate and Rhythm: Normal rate. Pulmonary: Effort: Pulmonary effort is normal. No respiratory distress. Musculoskeletal: Cervical back: Normal range of motion. Skin: General: Skin is warm and dry. Comments: A approximately 10 cm x 10 cm area of redness noted. No remote redness. No evidence of bacterial infection. Neurological: General: No focal deficit present. Mental Status: She is alert. ASSESSMENT/PLAN: 1. Allergic reaction, initial encounter - ICD9: 995.3, ICD10: T78.40XA Diagnosed with allergic reaction. Will use steroid cream due to prednisone allergy. Additionally will use antihistamines as instructed. Instructed on use of second-generation's. At this time there isno evidence of bacterial infection. Patient was educated on supportive therapies. Patient will follow up with primary care provider as needed. Patient was instructed to immediately proceed to emergency room for any new, worsening, or symptoms lasting longer than anticipated. The patient's clinical presentation is otherwise unremarkable at this time. Based on exam and clinical finding, the patientis stable for discharge. Plan of care was discussed with patient. Patient verbalizes understanding and agrees to plan of care. This note was generated using [employer] software. It may contain errors in wording, punctuation, or spelling. Bobby Piña APRN.NECKTIES PAINTER documented in this encounterC[facility]06-[facility]24 Telephone encounter Note * Telephone Encounter - Rafaela Gómez RN - 05/07/2024 2:44 PM EDT Reason for Call: Reaction to Mounjaro shot Outcome: Advised to be seen within 4 hours. Caller plans to go to [facility] at this time. Caller also given alternate options for care including Urgent Care, emergency department for worsening symptoms. Rafaela Gómez RN Reason for Disposition [1] Looks infected (spreading redness, pus) AND [2] large red area (> 2 in. or 5 cm) Answer Assessment - Initial Assessment Questions 1. APPEARANCE of RASH: Rash around injection site. Bottom of stomach is dark red, upper abdomen is bright red. Most of it is raised, hot and swollen. Injection hole itself opened up and is about half a dime wide. 2. LOCATION: Right abdomen, now spread to above top of her thigh clear across to the left side, also at the bottom of her stomach up to belly button. Can put her had over it and it barely covers it. 3. NUMBER: 1 rash spread out around injection site 4. SIZE: Larger than area of her hand 5. ONSET: Injection was Thursday, spreading redness occurred overnight into . Also reacted slightly on the 5th injection dose 6. ITCHING: Severe itching 10/25 7. PAIN: No 8. OTHER SYMPTOMS: No fever, no chills, slight nausea Patient injected Mounjaro 2.5 this Thursday, this is week 6 on medication (also reacted on week 5). Protocols used: Rash or Redness - [id number]-VE [facility]06-22-2024 Miscellaneous Notes* Telephone Encounter - Rafaela Gómez RN - 05/07/2024 2:44 PM EDT Reason for Call: Reaction to Mounjaro shot Outcome: Advised to be seen within 4 hours. Caller plans to go to [facility] at this time. Caller also given alternate options for care including Urgent Care, emergency department for worsening symptoms. Rafaela Gómez RN Reason for Disposition [1] Looks infected (spreading redness, pus) AND [2] large red area (> 2 in. or 5 cm) Answer Assessment - Initial Assessment Questions 1. APPEARANCE of RASH: Rash around injection site. Bottom of stomach is dark red, upper abdomen is bright red. Most of it is raised, hot and swollen. Injection hole itself opened up and is about half a dime wide. 2. LOCATION: Right abdomen, now spread to above top of her thigh clear across to the left side, also at the bottom of her stomach up to belly button. Can put her had over it and it barely covers it. 3. NUMBER: 1 rash spread out around injection site 4. SIZE: Larger than area of her hand 5. ONSET: Injection was Thursday, spreading redness occurred overnight into . Also reacted slightly on the 5th injection dose 6. ITCHING: Severe itching 10/25 7. PAIN: No 8. OTHER SYMPTOMS: No fever, no chills, slight nausea Patient injected Mounjaro 2.5 this Thursday, this is week 6 on medication (also reacted on week 5). Protocols used: Rash or Redness - [id number]-ZOVTA-HR documented in this encounterC[facility]12-20-2023 NotePatient Outreach (INTMMN) BRITNEY MARIE ([id number]) 1960 F Date Time Provider Department 11/04/23 JAMES WATSON INTMMN During your visit today, we recorded the [...] for screening mammogram for breast cancer [Z12.31] Order(s):[facility] SCREENING [[id number]] Order #: [id number] FUTURE Prescriptions as of 11/09/2023 - buPROPion [...] [I65.29] 02/12/2015 MELYSSA (o (more content not included)...[facility]12-12-2023 Procedure [facility]05-11-[address] Rousseau [facility] March 26, 2023 12:52pm Note Date/Time March 26, 2023 11:03 am [facility] Medical Records Department [address] [place] [address] Instructions for Home/Discharge Instructions 03/26/23 1101 MR#: [id number] Acct: [id number] Name: BRITNEY MARIE Rep #:[id number] : 1960 62 From: Inez Casey PCP: Dr. Dannielle Thomas MD [place] [facility] [place] Instructions Diet Discharge Diet: No restrictions Activity Discharge Activity: May Shower May resume sexual activity in: 4 weeks Lifting Restrictions: No lifting over 5 pounds for 4 weeks. No strenuous activity, no exercise. Additional Activity Instructions:: No sexual activity, no hot tubs, no tub bathing, no swimming. Dressing / Incision Call your doctor if your incision/area has: Continuous Slow Oozing, Sudden Increased Bleeding, Increased Pain/ Swelling, Increased Redness, Foul Smelling Discharge and Swelling at the incision site Call your doctor if you observe: Fever of 101 or Higher, Inability to urinate and Inability to have a bowel movement Follow Up Care Please Follow Up With: Inez Rousseau MD When: Call the office for appointment Test Results: Test results from this visit will be discussed in further detail at your follow- up appointment, if applicable. Discharge Plan Admission Attending Provider: Inez Rousseau Primary Care Provider: Dannielle Thomas Consulting Providers: Kike Green Discharge Orders/Prescriptions Prescriptions: New nitrofurantoin monohyd/m-cryst [Macrobid] 100 mg capsule 100 mg PO BID Qty: 6 0RF Rx Instructions: must administer with a meal/food tramadol 50 mg tablet 50 mg PO Q8H PRN (Reason: pain) 3 Days Qty: 10 0RF Continued (DME) PEP device See Rx Instructions .ROUTE .MEDSUPPLY Qty: 1 0RF Rx Instructions: with training medical marijuana card 1 ea PO PRN PRN (Reason: Pain) bupropion HCl 200 mg tablet sustained-release 12 hr 200 mg PO DAILY Label Comments: take 1 tablet by mouth once daily diphenhydramine HCl [Benadryl] 25 mg capsule 25 mg PO PRN PRN (Reason: Sleep) nitroglycerin 0.4 mg tablet, sublingual 0.4 mg sublingual Q5-15M PRN (Reason: chest pain) Qty: 25 3RF albuterol sulfate 2.5 mg /3 mL (0.083 %) solution for nebulization 2.5 mg INHALATION Q4H PRN (Reason: SOB) ergocalciferol (vitamin D2) [Vitamin D2] 1,250 mcg (50,000 unit) capsule 1,250 mcg PO WE cetirizine 10 mg capsule 10 mg PO PRN PRN (Reason: ALLERGIES) omeprazole 20 mg Tablet,Delayed Release (Dr/Ec) 20 mg PO DAILY Myrbetriq 50 mg Tablet Extended Release 24 Hr 50 mg PO DAILY escitalopram oxalate [Lexapro] 10 mg tablet 10 mg PO DAILY Qty: 90 3RF losartan 50 mg tablet 50 mg PO BID Qty: 180 3RF icosapent ethyl [Vascepa] 1 gram capsule 2 g PO BID Qty: 120 11RF albuterol sulfate [Ventolin HFA] 90 mcg/actuation HFA aerosol inhaler 2 puff INHALATION Q6H PRN (Reason: shortness of breath or wheezing) Qty: 18 3RF diltiazem HCl 120 mg capsule,extended release 24hr 120 mg PO DAILY Qty: 30 11RF lorazepam [Ativan] 0.5 mg tablet 0.25 mg PO DAILY PRN (Reason: anxiety) Qty: 5 0RF Referrals / Follow Up: Dannielle Thomas MD [Primary Care Provider] - Disposition Disposition (needs filled in before D/C Order can be placed): Home, Self Care 03/26/23 8894<Electronically signed by Inez Rousseau MD>Inez Rousseau MD CC: Dr. Kike Green MD; Dr. Dannielle Thomas MD ~ Signed [facility] Work Phone: 1(432) 703-262005-11-2023 Procedure [facility] 10-20-2022 Hospital Discharge instructionsAmbulatory Orders* 12 Lead EKG [[facility]] Time Frame: 10/20/22, Location: None Selected Additional Instructions Implant Used?: [facility] Work Phone: 1([phone]) 571-685705-31-2022 History of Present illness Narrative* Ciara Price APRN.NECKTIES PAINTER - 04/15/2022 2:37 PM EDT Images from the original note were not [...] acupuncture to help with pain after her physicalhealth improves. 4. Follow up in 6 weeks. The effects and side effects of all the medications were reviewed with the patient in detail. She denies any involuntary movement related side effects. Patient is in agreement with the treatment plan. She is aware to reach out with any questions, concerns, or worsening of symptoms prior to the nextappointment. CC: Follow up regarding mood and anxiety. With the patient consent, visit was performed virtually. HPI: Britney Marie is a 61 year old Female with [...] [place] [facility]. Shares that her healthseems to have improved slightly since she got here. Unsure if she had COVID as she was never tested. Feels that she is sleeping better with the Seroquel currently and thinks that she needs the currentdose due to the stress related to her physical health. Continues to struggle with urinary incontinence but has not been able to see a urologist. 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 She was encouraged to [...] which included preparing to see the patient, [id number] patient care, completing clinical documentation, and counseling and educating the patient/family/caregiver, ordering medications/labs. Ciara Price APRN.CNP April 15, 2022 2:37 PM documented in this encounterC[facility] Instructions* Patient Instructions* Courtney Mata APRN.CNP - 04/03/2022 3:29 PM EDT Diagnosis: Assessment [...] or other serious complaints. 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 nitroglycerin sublingual (NITROQUICK) [...] IMPRESSION IMPRESSION: Stable exam without acute findings. Final Inspector Shuttle: RICKI Transcribe Date/Time: Apr 03 2022 3:14P Dictated by : YANA SWEENEY MD Prescription instructions reviewed with patient as applicable. prednisone taper, Flonase. Just finished antibiotic. Potential red flag symptoms discussed with the patient. Reviewed appropriate actionplan to take if red flag symptoms occur. Instructed to follow up with pulmonary for the feeling of shortness of breath and PCP for allergy medication adjustments. Patient agreeable to treatment plan. Courtney Mata APRN.HAM documented in this encounterCleveland Clinic [facility]05-18-2022 Miscellaneous Notes* Telephone Encounter - Danielle Kamara APRN.CNP - 04/02/2022 4:30 PM EDT Noted. Danielle Kamara APRN.CNP * Telephone Encounter - Campos Muir LPN - 04/02/2022 2:09 PM EDT TC to pt, notified of provider response. Pt states she is unable to make it in by 2:45 d/t current bowel situation. Pt states she will probably just have to come into Urgent Care. Campos Muir LPN * Telephone Encounter - Danielle Kamara APRN.NECKTIES PAINTER - 04/02/2022 1:43 PM EDT Yes, as it looks like she needs to be seen for her illness. If she can get here by 2:45; I can seenin my walk-in slot. * Telephone Encounter - Olga Lidia Barber RN - 04/02/2022 1:39 PM EDT Pt had to cancel her 200 pm appointment with Danielle Kamara today because she had diarrhea on herself, and had to get in the shower and clean up. Pt wants to know what providers would like her to do.Should she go to UC once she's clean. I told her that would probably be what the providers would recommend. Please call and advise. documented in this encounterCleveland Clinic [facility]05-17-2022 Miscellaneous Notes* Telephone Encounter - Alla Bower RN - 04/01/2022 1:51 PM EDT Patient calls and notified of provider response. Patient set up appointment with Danielle for tomorrow 04/02/2022. Patient states that this has been going on for 6 weeks. Alla Bower RN * Telephone Encounter - James Watson MD - 03/31/2022 11:42 AM EDT Would need seen by one of us * Telephone Encounter - Olga Lidia Barber RN - 03/31/2022 10:48 AM EDT Pt called in and reports that provider [...] asking provider for advise. documented in this encounterC[facility]05-10-2022 Miscellaneous Notes* Telephone Encounter - Rosy Alvarenga - 03/25/2022 3:38 PM EDT 2nd attempt to reach patient. LVM to call back to schedule for urology. Thank you Rosy Alvarenga * Telephone Encounter - Melanie Aguilar - 03/21/2022 10:06 AM EDT Called PT LVM to call back and schedule appt. * Telephone Encounter - Charlene Moncada MA - 03/20/2022 9:03 AM EDT Please assist patient with scheduling urology. documented in this encounterCleveland Clinic [facility]05-04-2022 History of Present illness Narrative* Ciara Price APRN.NECKTIES PAINTER - 03/19/2022 1:34 PM EDT Images from the original note were not [...] or worsening of symptoms prior to the nextappointment. CC: Follow up regarding sleep and mood With the patient consent, visit was performed virtually. HPI: Britney Marie is a 61 year old Female with [...] on walks with her dog due to herhealth. Her appetite has decreased significantly due to her illness. She has good help in her son. She is hoping for some improvement in symptoms as Dr. Watson ordered anti-biotics and steroid. She lost a tooth and has to get it replaced. She is supposed to go to [place] for vacation in April with her Aunt. [...] which included preparing to see the patient, [id number] patient care, completing clinical documentation, and counseling and educating the patient/family/caregiver, ordering medications/labs. Ciara Price APRN.HAM March 19, 2022 1:35 PM documented in this encounterC[facility] Clinic [facility]05-04-2022 History of Present illness Narrative* James Watson MD - 03/19/2022 9:17 AM EDT Patient presents with: Acute Visit HPI:This Team Access Model visit is a virtual encounter. It required patient- provider interaction for the medical decision making as [...] 2 Puffs as instructed every 4 hours asneeded for wheezing/shortness of breath. nitroglycerin sublingual (NITROQUICK) [...] 01/28/2017 Hyperlipidemia LDL goal < 70 10/14/2011 prison (current) use of opiate analgesic 02/10/2017 Lumbar [...] FUSION, CERVICAL 1993 APPENDECTOMY 2005-6 CHOLECYSTECTOMY about 2005- sludge COLONOSCOPY FLX DX [...] past medical history, surgical history, family history andsocial history today. REVIEW OF SYSTEMS All other [...] patient. Advised them to call if any sideeffects or questions. Red flags for re-assessment reviewed [...] 788.30, ICD10: R32 - CONSULT TO UROLOGY James Watson documented in this encounterCleveland Clinic [facility]05-03-2022 Miscellaneous Notes* Telephone Encounter - Campos Muir LPN - 03/18/2022 11:49 AM EDT TC to pt, appt scheduled with PCP for ongoing illness. Campos Muir LPN * Telephone Encounter - Estee Pena - 03/18/2022 11:23 AM EDT Britney called to reschedule her cardiology appointment for tomorrow. She is still quite sick with asignificant cough. I assisted her in rescheduling this appointment with Dr. Nunez for April. Dr. Watson's clinical staff: Britney said she has now had this cough since prior to her 03/03/22 visit to [facility]. She also said her dogs also all have barking coughs. I did double check, she said, Yes that her petanimals, dogs, all also have cough. Because she [...] denies emergency. Estee Pena documented in this encounterCleveland Clinic [facility]04-18-2022 Instructions* Patient Instructions* Bobby Piña APRN.NECKTIES PAINTER - 03/03/2022 2:03 PM EDT How to Manage Common Symptoms Associated with COVID for Adults Fever- Fever is a temperature over 100.4 F and can occur when the body is fighting an infection. Tohelp treat a fever: Drink plenty of fluids [...] your chest such as Vicks, which can helpreduce cough. Try cough drops. Avoid smoking and other strong odors or perfumes. Try breathing exercises to keep your lungs open and clear. Take a big deep breath through your noseand hold for 5 seconds before slowly releasing. [...] of water every 10-15 minutes and increase astolerated. You can try sucking an ice cube [...] or concerning to you. 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 nitroglycerin sublingual (NITROQUICK) [...] Suspicious for viral etiology. Patient will be testedfor COVID-19 influenza. [facility]. Red flags for prompt reevaluation discussed. Patient was educated on supportive therapies. Patient will follow up with primary care provider as needed. Patient was instructed to immediately proceed to emergency room for any new, worsening, or symptoms lasting longer than anticipated. The patient's clinical presentation is otherwise unremarkable atthis time. Based on exam and clinical finding, the patient is stable for discharge. Plan of care was discussed with patient. Patient verbalizes understanding and agrees to plan of care. This note was generated using [employer] Nile software. It may contain errors in wording, punctuation, or spelling. Bobby Piña APRN.HAM documented in this encounterCleveland Clinic [facility]04-18-2022 Miscellaneous Notes* Telephone Encounter - Sandeep Watson RN - 03/03/2022 11:39 AM EDT Protocol recommends see provider in 4 hours. [...] TRAVEL: No. Protocols used: COUGH - ACUTE [id number] documented in this encounterCleveland Clinic [facility]04-14-2022 Miscellaneous Notes* Telephone Encounter - Ciara Price APRN.CNP - 02/27/2022 10:50 PM EDT Please notify the patient that Ambien has been sent to [facility]. * Telephone Encounter - Ciara Price APRN.CNP - 02/27/2022 10:49 PM EDT Medication sent to [facility] per patient request. * Telephone Encounter - KAELA Gay - 02/27/2022 4:02 PM EDT Patient called in stating her Ambien was ordered and sent to [facility] and needs to be sent to [facility] in [place]. documented in this encounterCleveland Clinic [facility]04-12-2022 History of Present illness Narrative* Ciara Price APRN.HAM - 02/25/2022 3:03 PM EDT Images from the original note were not [...] were discussed in detail with the patient. PDMPreport was reviewed and found to be appropriate without any signs of misuse or diversion. Patient is in agreement with the treatment plan. She is aware to reach out with any questions, concerns, or worsening of symptoms prior to the next appointment. CC: I am not sleeping well at night or waking up feeling very tired in the morning. With the patient consent, visit was performed virtually. HPI: Britney Marie is a 61 year old Female with [...] with her sleep and made me feel worse. Patientreturned to utilizing Seroquel for sleep. Feels that she is more groggy and fatigued in the morningwhen she has to utilize Seroquel for her [...] energy level, mood, anxiety, and overall functioning duringthe day. Dr. Guerra suggested trying acupuncture for [...] which included preparing to see the patient, [id number] patient care, completing clinical documentation, and counseling and educating the patient/family/caregiver, ordering medications/labs. Ciara Price APRN.CNP February 25, 2022 3:03 PM documented in this encounterC[facility]04-04-2022 Instructions* Patient Instructions* Ciara Price APRN.CNP - 02/17/2022 6:32 PM [...] - Call the National Suicide Hotline at 9-544-PFBQMAR ( ) or 8-492-267-TALK (8394) - Text 4HOPE to 752395 Medication Update: 1. Amitriptyline (Elavil) 50 mg [...] may call the department appointment line at [phone] to schedule your appointment. -- Please call my nurse Priscilla at [phone] or send me a message in [place] with any questions or concerns between appointments. documented in this encounterCleveland Clinic [facility]04-04-2022 History of Present illness Narrative* Ciara Price APRN.CNP - 02/17/2022 4:41 PM EDT Images from the original note were not [...] consent, visit was performed virtually. HPI: Britney Marie is a 61 year old Female with [...] for a short time due to miscommunication withthe pharmacy. She has been taking the 50 mg dose of Seroquel. Sometimes she still has trouble staying asleep. Shefeels groggy and tired in the morning. Concerned about some feelings of fatigue during the day. Shereports sleeping best when she was on Ambien in the past. She uses medical marijuana only as neededmostly to manage her pain. She does not smoke medical marijuana just uses edibles to manage her pain as needed. She may consider stopping marijuana but is concerned about restarting morphine due to issues with physical health. We discussed the psychiatric risks associated with marijuana use even ifits for pain. Patient was engaged in the [...] which included preparing to see the patient, [id number] patient care, completing clinical documentation, and counseling and educating the patient/family/caregiver, ordering medications/labs. Ciara Price APRN.HAM February 17, 2022 4:56 PM documented in this encounterCleveland Clinic [facility]09-12-2018 History of Past illness Narrative* Problem Noted Date Resolved Date Abdominal pain 07/28/2018 09/12/2019 Overview: Added automatically from request for surgery [id number] RUQ pain 07/28/2018 09/12/2019 Overview: Added automatically from request for surgery [id number] Orthopnea 07/08/2018 09/12/2019 prison (current) use of opiate analgesic 01/1510/28/2019 Sense [...] of this encounter (statuses as of 02/17/2022) [facility] of [facility] Narrative* Problem Noted Date Resolved Date Abdominal pain 07/28/2018 09/12/2019 Overview: Added automatically from request for surgery [id number] RUQ pain 07/28/2018 09/12/2019 Overview: Added automatically from request for surgery [id number] Orthopnea 07/08/2018 09/12/2019 [employer]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 01/1510/28/2019 Sense [...] of this encounter (statuses as of 02/28/2022) [facility] of [facility] Narrative* Problem Noted Date Resolved Date Abdominal pain 07/28/2018 09/12/2019 Overview: Added automatically from request for surgery [id number] RUQ pain 07/28/2018 09/12/2019 Overview: Added automatically from request for surgery [id number] Orthopnea 07/08/2018 09/12/2019 [employer]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 01/1510/28/2019 Sense [...] of this encounter (statuses as of 03/03/2022) [facility] Narrative* Problem Noted Date Resolved Date Abdominal pain 07/28/2018 09/12/2019 Overview: Added automatically from request for surgery [id number] RUQ pain 07/28/2018 09/12/2019 Overview: Added automatically from request for surgery [id number] Orthopnea 07/08/2018 09/12/2019 prison (current) use of opiate analgesic 01/1510/28/2019 Sense [...] of this encounter (statuses as of 03/03/2022) [facility] Narrative* Problem Noted Date Resolved Date Abdominal pain 07/28/2018 09/12/2019 Overview: Added automatically from request for surgery [id number] RUQ pain 07/28/2018 09/12/2019 Overview: Added automatically from request for surgery [id number] Orthopnea 07/08/2018 09/12/2019 prison (current) use of opiate analgesic 01/1510/28/2019 Sense [...] of this encounter (statuses as of 03/09/2022) [facility] Narrative* Problem Noted Date Resolved Date Abdominal pain 07/28/2018 09/12/2019 Overview: Added automatically from request for surgery [id number] RUQ pain 07/28/2018 09/12/2019 Overview: Added automatically from request for surgery [id number] Orthopnea 07/08/2018 09/12/2019 prison (current) use of opiate analgesic 01/1510/28/2019 Sense [...] of this encounter (statuses as of 03/18/2022) [facility] Narrative* Problem Noted Date Resolved Date Abdominal pain 07/28/2018 09/12/2019 Overview: Added automatically from request for surgery [id number] RUQ pain 07/28/2018 09/12/2019 Overview: Added automatically from request for surgery [id number] Orthopnea 07/08/2018 09/12/2019 [employer]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 01/1510/28/2019 Sense [...] of this encounter (statuses as of 03/19/2022) [facility] Narrative* Problem Noted Date Resolved Date Abdominal pain 07/28/2018 09/12/2019 Overview: Added automatically from request for surgery [id number] RUQ pain 07/28/2018 09/12/2019 Overview: Added automatically from request for surgery [id number] Orthopnea 07/08/2018 09/12/2019 prison (current) use of opiate analgesic 01/1510/28/2019 Sense [...] of this encounter (statuses as of 03/19/2022) [facility] Narrative* Problem Noted Date Resolved Date Abdominal pain 07/28/2018 09/12/2019 Overview: Added automatically from request for surgery [id number] RUQ pain 07/28/2018 09/12/2019 Overview: Added automatically from request for surgery [id number] Orthopnea 07/08/2018 09/12/2019 [employer]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 01/1510/28/2019 Sense [...] of this encounter (statuses as of 03/25/2022) [facility] Narrative* Problem Noted Date Resolved Date Abdominal pain 07/28/2018 09/12/2019 Overview: Added automatically from request for surgery [id number] RUQ pain 07/28/2018 09/12/2019 Overview: Added automatically from request for surgery [id number] Orthopnea 07/08/2018 09/12/2019 prison (current) use of opiate analgesic 01/1510/28/2019 Sense [...] of this encounter (statuses as of 04/01/2022) [facility] N[facility]ative* Problem Noted Date Resolved Date Abdominal pain 07/28/2018 09/12/2019 Overview: Added automatically from request for surgery [id number] RUQ pain 07/28/2018 09/12/2019 Overview: Added automatically from request for surgery [id number] Orthopnea 07/08/2018 09/12/2019 [employer]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 01/1510/28/2019 Sense [...] of this encounter (statuses as of 04/02/2022) [facility] N[facility]* Problem Noted Date Resolved Date Abdominal pain 07/28/2018 09/12/2019 Overview: Added automatically from request for surgery [id number] RUQ pain 07/28/2018 09/12/2019 Overview: Added automatically from request for surgery [id number] Orthopnea 07/08/2018 09/12/2019 [employer]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 01/1510/28/2019 Sense [...] of this encounter (statuses as of 04/03/2022) [facility]* Problem Noted Date Resolved Date Abdominal pain 07/28/2018 09/12/2019 Overview: Added automatically from request for surgery [id number] RUQ pain 07/28/2018 09/12/2019 Overview: Added automatically from request for surgery [id number] Orthopnea 07/08/2018 09/12/2019 [employer]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 01/1510/28/2019 Sense [...] cause overnight --Aspirin, statin Cocaine substance abuse 10/20/20 14 documented as of this encounter (statuses as of 04/16/2022) [facility] Narrative* Problem Noted Date Resolved Date Abdominal pain 07/28/2018 09/12/2019 Overview: Added automatically from request for surgery [id number] RUQ pain 07/28/2018 09/12/2019 Overview: Added automatically from request for surgery [id number] Orthopnea 07/08/2018 09/12/2019 prison (current) use of opiate analgesic 01/1510/28/2019 Sense [...] of this encounter (statuses as of 11/24/2022) [facility] Narrative* Problem Noted Date Diagnosed Date Resolved Date Abdominal pain 07/28/2018 09/12/2019 Overview: Added automatically from request for surgery [id number] RUQ pain 07/28/2018 09/12/2019 Overview: Added automatically from request for surgery [id number] Orthopnea 07/08/2018 09/12/2019 prison (current) use of opiate analgesic 02/10/2017 10/28/2019 [...] of this encounter (statuses as of 11/09/2023) [facility]* Diagnosis Insomnia, unspecified type- Primary Moderate episode of recurrent major depressive disorder (HCC) RODERICK (generalized anxiety disorder) Generalized anxiety disorder Medical marijuana use Encounter for long-term (current) use of other medications documented in this encounter [facility]* Diagnosis Insomnia, unspecified type [facility] encounter [facility] Diagnosis Suspected COVID-19 virus infection- Primary [facility]* Diagnosis Insomnia, unspecified type- Primary Moderate episode of recurrent major depressive disorder (HCC) RODERICK (generalized anxiety disorder) Generalized anxiety disorder Chronic pain syndrome [facility]* Diagnosis Bronchitis- Primary Bronchitis, not specified as acute or chronic Urinary incontinence, unspecified type [facility]* Diagnosis Insomnia, unspecified type- Primary Moderate episode of recurrent major depressive disorder (HCC) RODERICK (generalized anxiety disorder) Generalized anxiety disorder [facility]* Diagnosis Cough- Primary [facility]* Diagnosis Insomnia, unspecified type- Primary Moderate episode of recurrent major depressive disorder (HCC) RODERICK (generalized anxiety disorder) Generalized anxiety disorder Chronic pain syndrome Medical marijuana use Encounter for long-term (current) use of other medications documented in this encounter [facility] noteNo assessment information availableWWyandot Memorial [facility] Work Phone: Evaluation note* Diagnosis Onset Date Resolution Status DDD (degenerative disc disease), cervical acute IBS (irritable bowel syndrome) acute Osteoporosis acute Type 2 diabetes mellitus acu te Urinary incontinence concurr ent with and due to female genital prolapse acute Asthma chronic Essential (primary) hypertension chronic Hyperlipidemia chronic Nonobstructive atherosclerosis of coronary artery chronic MELYSSA (obstructive sleep apnea) chronic Smoking greater than 30 pack years chronic Tobacco abuse chronic Encounter to establish care noneactive Cubital tunnel syndrome on right acute Degenerative disc disease, cervical acute H/O cervical spinal arthrodesis acute Degenerative disc disease, cervical acute H/O cervical spinal arthrodesis acute Lumbar radiculopathy acute Osteoporosis acute Type 2 diabetes mellitus acu te Urinary incontinence concurr ent with and due to female genital prolapse acute MELYSSA (obstructive sleep apnea) chronic Smoking greater than 30 pack years chronic Tobacco abuse chronic Lower back pain acute [facility] Work Phone: Evaluation note* Diagnosis Onset Date Resolution Status DDD (degenerative disc disease), cervical acute IBS (irritable bowel syndrome) acute Osteoporosis acute Urinary incontinence concurr ent with and due to female genital prolapse acute Asthma chronic Essential (primary) hypertension chronic Hyperlipidemia chronic Nonobstructive atherosclerosis of coronary artery chronic MELYSSA (obstructive sleep apnea) chronic Smoking greater than 30 pack years chronic Tobacco abuse chronic Encounter to establish care noneactive Cubital tunnel syndrome on right acute Degenerative disc disease, cervical acute H/O cervical spinal arthrodesis acute Degenerative disc disease, cervical acute H/O cervical spinal arthrodesis acute Lumbar radiculopathy acute Osteoporosis acute Urinary incontinence concurr ent with and due to female genital prolapse acute MELYSSA (obstructive sleep apnea) chronic Smoking greater than 30 pack years chronic Tobacco abuse chronic Lower back pain acute Bronchiectasis chronic MELYSSA (obstructive sleep apnea) chronic Smoking greater than 30 pack years chronic [facility] Work Phone: Evaluation note* Diagnosis Onset Date Resolution Status Cubital tunnel syndrome on right acute Degenerative disc disease, cervical acute H/O cervical spinal arthrodesis acute Degenerative disc disease, cervical acute H/O cervical spinal arthrodesis acute Lumbar radiculopathy acute Osteoporosis acute Urinary incontinence concurr ent with and due to female genital prolapse acute MELYSSA (obstructive sleep apnea) chronic Smoking greater than 30 pack years chronic Tobacco abuse chronic Lower back pain acute Bronchiectasis chronic MELYSSA (obstructive sleep apnea) chronic Smoking greater than 30 pack years chronic [facility] Work Phone: Evaluation note* Diagnosis Onset Date Resolution Status Cubital tunnel syndrome on right acute Degenerative disc disease, cervical acute H/O cervical spinal arthrodesis acute Degenerative disc disease, cervical acute H/O cervical spinal arthrodesis acute Lumbar radiculopathy acute Osteoporosis acute Urinary incontinence concurr ent with and due to female genital prolapse acute MELYSSA (obstructive sleep apnea) chronic Smoking greater than 30 pack years chronic Tobacco abuse chronic Lower back pain acute Bronchiectasis chronic MELYSSA (obstructive sleep apnea) chronic Smoking greater than 30 pack years chronic DDD (degenerative disc disease), lumbar acute Urethral stenosis acute [facility] Work Phone: Evaluation note* Diagnosis Encounter for screening mammogram for breast cancer documented in this encounter [facility] note* Diagnosis Onset Date Resolution Status DDD (degenerative disc disease), lumbar acute Urethral stenosis acute Asthma chronic Nonobstructive atherosclerosis of coronary artery chronic MELYSSA (obstructive sleep apnea) chronic Smoking greater than 30 pack years chronic Chest pain acute Dizziness acute Palpitations acute Dyspnea on exertion chronic Essential (primary) hypertension chronic Hyperlipidemia chronic Nonobstructive atherosclerosis of coronary artery chronic [facility] Work Phone: Evaluation note* Diagnosis Onset Date Resolution Status Asthma chronic Nonobstructive atherosclerosis of coronary artery chronic MELYSSA (obstructive sleep apnea) chronic Smoking greater than 30 pack years chronic Chest pain acute Dizziness acute Palpitations acute Dyspnea on exertion chronic Essential (primary) hypertension chronic Hyperlipidemia chronic Nonobstructive atherosclerosis of coronary artery chronic [facility] Work Phone: Evaluation note* Diagnosis Onset Date Resolution Status Chest pain acute Dyspnea on exertion chronic Essential (primary) hypertension chronic Hyperlipidemia chronic Nonobstructive atherosclerosis of coronary artery chronic Smoking greater than 30 pack years chronic Degenerative disc disease, cervical acute Trochanteric bursitis of left hip acute Essential (primary) hypertension chronic Hyperlipidemia chronic MELYSSA (obstructive sleep apnea) chronic Smoking greater than 30 pack years chronic [facility] Work Phone: Evaluation note* Diagnosis Onset Date Resolution Status Liver disease acute Hyperlipidemia chronic Smoking greater than 30 pack years chronic Liver disease acute [facility] Work Phone: Evaluation note* Diagnosis Encounter for screening mammogram for breast cancer documented in this encounter [facility] note* Diagnosis Onset Date Resolution Status Asthma chronic Bronchiectasis chronic MELYSSA (obstructive sleep apnea) chronic Smoking greater than 30 pack years chronic Diabetes chronic Essential (primary) hypertension chronic Hyperlipidemia chronic Obesity chronic [facility] Work Phone: Evaluation note* Diagnosis Allergic reaction, initial encounter- [facility] Suspected COVID-19 virus [facility] Procedure not carried out- Primary Procedure not carried out for other reasons [facility] Additional Instructions [facility] Work [facility]: Hospital Discharge instructions Additional Instructions Fracture or dislocation of your elbow. Your CT head face and neck are negative. Right knee x-ray negative. Discussed with Dr. Dockery in the ED. Call office tomorrow to be seen. [facility] Work Phone: Progress note Author Gurwinder Urena [facility] Note Date/Time April 18, 2025 1:45p m [facility] [address] [place] [address] OFFICE VISIT Date of Service: 04/18/25 MR#: [id number] Acct: [id number] Name: BRITNEY MARIE Rep #: [id number] : 1960 Provider: Dr. Nghia Urena MD Age/Sex: 64/F Location: [facility] Status: Signed Intake Vital Signs 03/08/25 11:21 04/18/25 13:21 Height 5 ft 1 in 5 ft 1 in Weight: 170 lb BMI 32.1 Intake Visit Reasons: RIGHT ELBOW Chief Complaint: Right Elbow 1 month post op Accompanied by: Self Is patient in pain?: Yes Pain scale (1-10): 3 Allergies acetaminophen Allergy (Severe, Verified 04/18/25 13:25) Hives hydrocodone bitartrate (From Vicodin) Allergy (Severe, Verified 04/18/25 13:25) Hives hydromorphone HCl (From Dilaudid) Allergy (Severe, Verified 04/18/25 13:25) Hives, feels like on fire Penicillins Allergy (Severe, Verified 04/18/25 13:25) Anaphylaxis propoxyphene napsylate (From Darvocet-N 100) Allergy (Severe, Verified 04/18/25 13:25) Hives Sulfa (Sulfonamide Antibiotics) Allergy (Severe, Verified 04/18/25 13:25) Hives adhesive Allergy (Verified 04/18/25 13:25) Rash budesonide (From Symbicort) Allergy (Verified 04/18/25 13:25) Angioedema cephalexin monohydrate (From Keflex) Allergy (Verified 04/18/25 13:25) Rash formoterol (From Symbicort) Allergy (Verified 04/18/25 13:25) Angioedema Heparin Analogues Allergy (Verified 04/18/25 13:25) severe bruising and rash latex Allergy (Verified 04/18/25 13:25) Rash levofloxacin (From Levaquin) Allergy (Verified 04/18/25 13:25) Swelling, rash oxycodone HCl (From Percocet) Allergy (Verified 04/18/25 13:25) Hives oxytocin Allergy (Verified 04/18/25 13:25) Hives Medications ?Medication ?Instructions ?Recorded ?Confirmed ?Type PEP device #1 ea 02/27/20 04/18/25 Rx nitroglycerin 0.4 mg sublingual 0.4 mg sublingual Q5-1 5M PRN chest 01/23/23 04/18/25 Rx tablet pain #25 tabs aspirin 81 mg tablet,delayed 81 mg PO DAILY #30 tabs 0 05/21/23 04/18/25 Rx release omeprazole 20 mg tablet,delayed 20 mg PO DAILY heartbu rn 03/22/24 04/18/25 Histo ry release ergocalciferol (vitamin D2) 1,250 1,250 mcg PO WE #12 caps 09/19/24 04/18/25 Rx mcg (50,000 unit) capsule (Vitamin D2) losartan 50 mg tablet 50 mg PO BID #180 tabs 09/1904/18/25 Rx ezetimibe 10 mg tablet (Zetia) 10 mg PO DAILY #90 tabs 10/05/24 04/18/25 Rx bupropion HCl 200 mg tablet,12 hr 200 mg PO DAILY #90 ea 10/31/24 04/18/25 Rx sustained-release albuterol sulfate 90 mcg/actuation 2 puff inhalation Q 6H PRN 12/10/24 04/18/25 Rx aerosol inhaler shortness of breath or wheez ing #8.5 grams ondansetron 4 mg disintegrating 4 mg PO Q8H PRN nausea and 01/23/25 04/18/25 Rx tablet vomiting #10 tabs trazodone 50 mg tablet 25 mg (1/2 x 50 mg) PO QDAY PRN 01/23/25 04/18/25 Rx sleep #30 tabs escitalopram oxalate 10 mg tablet 10 mg PO QHS 5 04/18/25 History (Lexapro) semaglutide 2 mg/dose (8 mg/3 mL) 2 mg subcut WE 03/0304/18/25 History subcutaneous pen injector (Ozempic) docusate sodium 100 mg capsule 100 mg PO BID #20 caps 03/07/25 04/18/25 Rx (Dulcolax Stool Softener (docusate)) loratadine 10 mg tablet 10 mg PO DAILY 03/08/2502/07 History morphine 15 mg immediate release 15 mg PO BID PRN pain 5 days #10 03/15/25 04/18/25 Rx tablet tabs Have you fallen in the past year?: No PFSH Medical History Abrasion Fatty liver Low iron Restless legs Back pain Injury of head and neck TIA (transient ischemic attack) Syncope Dietary restriction History of hiatal hernia Former smoker Cervical radiculopathy Fatty liver disease, nonalcoholic Nausea and vomiting Body aches URI (upper respiratory infection) UTI (urinary tract infection) Severe headache Obesity Diabetes Stress incontinence Tachycardia Cardiology follow-up encounter HPV (human papilloma virus) anogenital infection Chest pain COVID-19 (01/04/23) Urethral stenosis Wears dentures Cancer Marijuana use Ambulates with cane High cholesterol TIA (transient ischemic attack) Gastric reflux History of IBS CPAP (continuous positive airway pressure) dependence Chronic cough COPD (chronic obstructive pulmonary disease) Leg cramps History of pain when walking History of echocardiogram History of stress test Vitamin D deficiency Vascular disease History of stomach ulcers Osteoporosis Neuropathy Liver disease IBS (irritable bowel syndrome) Arthritis Nonobstructive atherosclerosis of coronary artery Essential (primary) hypertension Incidental lung nodule, > 3mm and < 8mm Tobacco abuse MELYSSA (obstructive sleep apnea) Trigeminal neuralgia Dysmetabolic syndrome DDD (degenerative disc disease), cervical Asthma DJD (degenerative joint disease) Chronic obstructive lung disease Hyperlipidemia Depression Surgical History History of cystoscopy History of cystoscopy H/O dilation of urethra History of repair of hiatal hernia History of cardiac catheterization History of sinus surgery History of cervical spinal surgery History of tubal ligation History of appendectomy History of cholecystectomy Family History Mother Cancer Father Cancer Myocardial infarction Sister Cancer Other Alcoholism Anxiety Arthritis Blood clot associated with vein wall inflammation Breast cancer Cervical cancer Depression Melanoma Mental disorder Osteoporosis Social History Smoking Status: Former smoker Tobacco: How many years used: 54 second hand exposure: Yes alcohol intake: current alcohol intake frequency: holidays/special occasions only substance use type: does not use, former substance user Date of last use: 2004 and crack/cocaine caffeine: Yes what type of physical activity do you participate in: none HPI RIGHT ELBOW Details: This documentation accurately reflects the service provided and the decisions made by me, Dr. Gurwinder Urena MD 04/18/25 1034. Part of today?s visit was documented by [ ], acting as scribe. BRITNEY MARIE is a 64 year old F here today for 6 weeks FU Right elbow open reduction internal fixation olecranon and right radial head arthroplasty. Doingwell no acute concerns doing physical therapy range of motion is improving usingthe brace. Supplemental Info X-rays taken today show good alignment of the joint fracture appears to be healing still good alignment of the radiocapitellar joint. Coding Level of Care Code Global Post Op Diagnoses Elbow fracture, right S42.401A Assessment and Plan Assessment and Plan (1) Elbow fracture, right: Status: Acute Plan: BRITNEY MARIE is a 64 year old F here today for 6 weeks FU Right elbow open reduction internal fixation olecranon and right radial head arthroplasty. Overall patient is doing well some mild stiffness as to be expected. The patient can keep on working on stretching gradually discontinue the brace over the next 1 to 2 weeks start some light strengthening and follow-up in 6 to 8 weeks time. He understood no further questions or concerns. Still recommend avoiding any sort of aggressive activities at this point. Orders: Orders Elbow min 3 Views Today S42.401A - Unspecified fracture of lower end of right humerus, initial encounter for closed fracture Clinical Quality Measures Falls Risk Screening/Assistive Devices Have you fallen in the past year?: No Ortho Exam General General: Yes no acute distress Neurologic: Yes alert and Yes oriented x3 Psychologic: Yes reasonable and appropriate Right Elbow Skin/Wound: Yes CDI, Yes healed, No eccymosis, No erythema and No Swelling ROM: Yes Supination 0-90 and Pronation 0-80 Sensation: Radial: I, Ulnar: I and Median: I Motor: Elbow Extension: 4, Elbow Flexion: 4, EPL: 5, FDP-2: 5 and 1st Dorsal Interosseous: 5 ELBOW: forearm soft. ROM 10-95. 04/18/25 5942 <Electronically signed by Gurwinder coppola MD> Date _ Gurwinder Urena MD Cosigner Signature: Date (if applicable) CC: ~ [place] [facility] Work Phone: [employer] [employer] for referral (narrative)* Diagnostic Procedure Only (Routine) - Pending Review Specialty Diagnoses / Procedures Referred By Jerrell wesley Referred To Contact [facility] Diagnoses Encounter for screening mammogram for breast cancer Procedures MONTRELL SCREENING SCREENING MAMMOGRAPHY BI 2-VIEW BREAST INC CAD James Watson MD [address] [place] [address] [facility] [address] [place] [address] Referral ID Status Reason Start Date Expiration Date Visits Requested Visits Authorized [id number] Pending Review Auto-Generat ed Referral 11/19/2022 12/19/2023 1 1 [facility] for referral (narrative)* Diagnostic Procedure Only (Routine) - Pending Review Specialty Diagnoses / Procedures Referred By Jerrell wesley Referred To Contact [facility] Diagnoses Encounter for screening mammogram for breast cancer Procedures MONTRELL SCREENING SCREENING MAMMOGRAPHY BI 2-VIEW BREAST INC CAD Terrell, James Humphrey MD [address] [place] [address] [facility] [address] [place] [address] Referral ID Status Reason Start Date Expiration Date Visits Requested Visits Authorized [id number] Pending Review Auto-Generat ed Referral 3 12/03/2024 1 1 [facility] for referral (narrative)No reason for referral information availableWWyandot [facility] Work Phone: Summary Purpose Family History No Family History Records Found Relationship Condition Age at Onset Recorded Date/T lynn Not Specified Malignant neoplasm of cervix Unknown Phlebitis and thrombophlebitis Unknown Osteoporosis Unknown Alcoholism Unknown Anxiety Unknown Arthritis Unknown Depression Unknown Malignant melanoma Unknown Mental disorder Unknown Malignant neoplasm of breast Unknown mother Malignant neoplasm Unknown father Malignant neoplasm Unknown Myocardial infarction Unknown sister Malignant neoplasm Unknown Advance Directives No Advanced Directives Records FoundDocuments on File Type Date Recorded 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 Advance Directive(s) 10/22/2021 6:57 AM Advance Directive(s) 08/27/2018 8:13 AM Advance Directive(s) 08/03/2018 12:13 PM Advance Directive(s) 01/25/2018 7:35 AM Advance Directive(s) 09/29/2017 11:44 AM Advance Directive(s) 08/06/2017 3:25 AM Advance Directive(s) 08/03/2017 4:11 PM Documents on File Type Date Recorded 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 Advance Directive(s) 10/22/2021 6:57 AM Advance Directive(s) 08/27/2018 8:13 AM Advance Directive(s) 08/03/2018 12:13 PM Advance Directive(s) 01/25/2018 7:35 AM Advance Directive(s) 09/29/2017 11:44 AM Advance Directive(s) 08/06/2017 3:25 AM Advance Directive(s) 08/03/2017 4:11 PM Advance Directive Response Recorded Date/ Time Advance Directives No July 8:58am Living Will No February 10, 2020 4:03pm Power of Accounts Payable Bookkeeper No February 09 4:03pm Advance Directive Response Recorded Date/ Time Advance Directives No July 2:08pm Living Will No August 05, 2022 2:08pm Power of Accounts Payable Bookkeeper No July 2:08pm Advance Directive Response Recorded Date/ Time Advance Directives No July 1:08pm Living Will No August 05, 2022 1:08pm Power of Accounts Payable Bookkeeper No July 1:08pm Advance Directive Response Recorded Date/ Time Advance Directives No July 2:08pm Living Will No March 19, 2023 1: 14pm Power of Accounts Payable Bookkeeper No March 19, 2023 1:14pm Advance Directive Response Recorded Date/ Time Advance Directives No June 08 9:03am Living Will No June 08, 2023 9:03am Power of Accounts Payable Bookkeeper No June 08 9:03am Advance Directive Response Recorded Date/ Time Advance Directives No June 08 9:03am Living Will No June 19, 2023 6:08pm Power of Accounts Payable Bookkeeper No June 19 6:08pm Advance Directive Response Recorded Date/ Time Advance Directives No June 08 8:03am Living Will No June 19, 2023 5:08pm Power of Accounts Payable Bookkeeper No June 19 5:08pm Advance Directive Response Recorded Date/ Time Living Will No June 19, 2023 6:08pm Do you have a Healthcare Power of Accounts Payable Bookkeeper? No June 19, 2023 6:08pm Living Will No December 10 1:14pm Do you have a Healthcare Power of Accounts Payable Bookkeeper? No December 10, 2024 1:14pm Advance Directives No June 08 9:03am Advance Directive Response Recorded Date/ Time Living Will No June 19, 2023 6:08pm Do you have a Healthcare Power of Accounts Payable Bookkeeper? No June 19, 2023 6:08pm Advance Directives No February 20 3:05pm Living Will No December 10 1:14pm Do you have a Healthcare Power of Accounts Payable Bookkeeper? No December 10, 2024 1:14pm Living Will No March 02, 2025 4:00pm Do you have a Healthcare Power of Accounts Payable Bookkeeper? No March 02, 2025 4:00pm Advance Directive Response Recorded Date/ Time Living Will No June 19, 2023 6:08pm Do you have a Healthcare Power of Accounts Payable Bookkeeper? No June 19, 2023 6:08pm Advance Directives No March 03, 8:02am Living Will No March 02, 2025 4:00pm Do you have a Healthcare Power of Accounts Payable Bookkeeper? No March 02, 2025 4:00pm Living Will No March 03, 2025 4:14pm Do you have a Healthcare Power of Accounts Payable Bookkeeper? No March 03, 2025 4:14pm Advance Directive Response Recorded Date/ Time Living Will No June 19, 2023 6:08pm Do you have a Healthcare Power of Accounts Payable Bookkeeper? No June 19, 2023 6:08pm Advance Directives No May 19 11:11am Living Will No March 02, 2025 4:00pm Do you have a Healthcare Power of Accounts Payable Bookkeeper? No March 02, 2025 4:00pm Living Will No March 03, 2025 4:14pm Do you have a Healthcare Power of Accounts Payable Bookkeeper? No March 03, 2025 4:14pm Advance Directive Response Recorded Date/ Time Advance Directives No May 19 11:11am Living Will No March 02, 2025 4:00pm Do you have a Healthcare Power of Accounts Payable Bookkeeper? No March 02, 2025 4:00pm Living Will No March 03, 2025 4:14pm Do you have a Healthcare Power of Accounts Payable Bookkeeper? No March 03, 2025 4:14pm Advance Directive Response Recorded Date/ Time Advance Directives No May 19 11:11am Procedure Findings Note HNO ID: [id number]: Charisma Gamez: RadiologyAuthor Type: PhysicianType: Brief Op NoteFiled: 08/27/2018 10:32 AMNote Text:BRIEF OPERATIVE / PROCEDURE NOTELOG ID: [id number]/PROCEDURE DATE: 08/27/2018INCISION/PROCEDURE START TIME: 10:04 AMINCISION CLOSE/PROCEDURE END TIME: 10:08 AMSURGEON(S)/PROCEDURALIST(S) AND BODY PRESSER(S):Surgeon(s) and Role: * Alexus Webster - Leila Additional StaffSURGERY/PROCEDURE(S): CT guided liver biopsyANESTHESIA: Procedural SedationFINDINGS: unremarkableESTIMATED BLOOD LOSS: 0 mlSPECIMENS: 2 core biopsies obtained.COMPLICATIONS: NonePRE-OP/PRE-PROCEDURE DIAGNOSIS: fatty liverPOST-OP/POST-PROCEDURE DIAGNOSIS: * No post-op diagnosis entered *SAASIGNATURE: Alexus Webster MD PATIENT NAME: Britney VincentATE: August 27, 2018 : 10:31 AM PAGER/CONTACT #: Reason for Referral Specialty Diagnoses / Procedures Referred By Jerrell t Referred To Contact Diagnoses Chronic pain syndrome Procedures CONSULT FOR ACUPUNCTURE OFFICE/OUTPATIENT [facility] 60-74 MINUTES Ciara rPice APRN.NECKTIES PAINTER [address] [place] [address] Referral ID Status Reason Start Date Expiration Date Visits Requested Visits Authorized [id number] Pending Review PCP Requested Referral 02/25/2022 02/25/2023 1 1 Specialty Diagnoses / Procedures Referred By Jerrell wesley Referred To Contact Urology Diagnoses Urinary incontinence, unspecified type Procedures CONSULT TO UROLOGY OFFICE/OUTPATIENT [facility] 60-74 MINUTES James Watson MD [address] [place] [address] Referral ID Status Reason Start Date Expiration Date Visits Requested Visits Authorized [id number] Authorized PCP Requested Referral 03/19/2022 03/19/2023 1 1 Chief Complaint and Reason for Visit Chief Complaint Amb Documentation SINUSITIS Chief Complaint Amb Documentation 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 EST. CARE - NPP SENT right hand xray 2 M FU LUMBER SPINE xray PELVIC PAIN Reason for Visit DDD (degenerative di sc disease), cervical IBS (irritable bowel syndrome) Osteoporosis Type 2 diabetes mellitus Urinary incontinence concurrent with and due to female genital prolapse Asthma Essential (primary) hypertension Hyperlipidemia Nonobstructive atherosclerosis of coronary artery MELYSSA (obstructive sleep apnea) Smoking greater than 30 pack years Tobacco abuse Encounter to establish care Cubital tunnel syndrome on right Degenerative disc disease, cervical H/O cervical spinal arthrodesis Degenerative disc disease, cervical H/O cervical spinal arthrodesis Lumbar radiculopathy Osteoporosis Type 2 diabetes mellitus Urinary incontinence concurrent with and due to female genital prolapse MELYSSA (obstructive sleep apnea) Smoking greater than 30 pack years Tobacco abuse Lower back pain Chief Complaint NP. EST. MORGAN - NPP SENT right hand xray 2 M FU LUMBER SPINE xray PELVIC PAIN Amb Documentation NICOTINE DEPENDENCE 6 M FU Reason for Visit DDD (degenerative di sc disease), cervical IBS (irritable bowel syndrome) Osteoporosis Urinary incontinence concurrent with and due to female genital prolapse Asthma Essential (primary) hypertension Hyperlipidemia Nonobstructive atherosclerosis of coronary artery MELYSSA (obstructive sleep apnea) Smoking greater than 30 pack years Tobacco abuse Encounter to establish care Cubital tunnel syndrome on right Degenerative disc disease, cervical H/O cervical spinal arthrodesis Degenerative disc disease, cervical H/O cervical spinal arthrodesis Lumbar radiculopathy Osteoporosis Urinary incontinence concurrent with and due to female genital prolapse MELYSSA (obstructive sleep apnea) Smoking greater than 30 pack years Tobacco abuse Lower back pain Bronchiectasis MELYSSA (obstructive sleep apnea) Smoking greater than 30 pack years Chief Complaint right hand xray 2 M FU LUMBER SPINE xray PELVIC PAIN Amb Documentation NICOTINE DEPENDENCE 6 M FU LBP Reason for Visit Cubital tunnel syndr ome on right Degenerative disc disease, cervical H/O cervical spinal arthrodesis Degenerative disc disease, cervical H/O cervical spinal arthrodesis Lumbar radiculopathy Osteoporosis Urinary incontinence concurrent with and due to female genital prolapse MELYSSA (obstructive sleep apnea) Smoking greater than 30 pack years Tobacco abuse Lower back pain Bronchiectasis MELYSSA (obstructive sleep apnea) Smoking greater than 30 pack years Chief Complaint right hand xray 2 M FU LUMBER SPINE xray PELVIC PAIN Amb Documentation NICOTINE DEPENDENCE 6 M FU LBP SKIN Reason for Visit Cubital tunnel syndr ome on right Degenerative disc disease, cervical H/O cervical spinal arthrodesis Degenerative disc disease, cervical H/O cervical spinal arthrodesis Lumbar radiculopathy Osteoporosis Urinary incontinence concurrent with and due to female genital prolapse MELYSSA (obstructive sleep apnea) Smoking greater than 30 pack years Tobacco abuse Lower back pain Bronchiectasis MELYSSA (obstructive sleep apnea) Smoking greater than 30 pack years Chief Complaint right hand xray 2 M FU LUMBER SPINE xray PELVIC PAIN Amb Documentation NICOTINE DEPENDENCE 6 M FU LBP SKIN LUMBER SPINE CYSTO, POSS BLADDER BX, FULGURATION Reason for Visit Cubital tunnel syndr ome on right Degenerative disc disease, cervical H/O cervical spinal arthrodesis Degenerative disc disease, cervical H/O cervical spinal arthrodesis Lumbar radiculopathy Osteoporosis Urinary incontinence concurrent with and due to female genital prolapse MELYSSA (obstructive sleep apnea) Smoking greater than 30 pack years Tobacco abuse Lower back pain Bronchiectasis MELYSSA (obstructive sleep apnea) Smoking greater than 30 pack years DDD (degenerative disc disease), lumbar Urethral stenosis Chief Complaint LUMBER SPINE PREOP CYSTO, POSS BLADDER BX, FULGURATION 3 M FU OVERDUE F/U INT LABS Chest pain/PALP Reason for Visit DDD (degenerative di sc disease), lumbar Urethral stenosis Asthma Nonobstructive atherosclerosis of coronary artery MELYSSA (obstructive sleep apnea) Smoking greater than 30 pack years Chest pain Dizziness Palpitations Dyspnea on exertion Essential (primary) hypertension Hyperlipidemia Nonobstructive atherosclerosis of coronary artery Chief Complaint 3 M FU OVERDUE F/U INT LABS Chest pain/PALP CYST SLING- ADD LABS SDC Reason for Visit Asthma Nonobstructive atherosclerosis of coronary artery MELYSSA (obstructive sleep apnea) Smoking greater than 30 pack years Chest pain Dizziness Palpitations Dyspnea on exertion Essential (primary) hypertension Hyperlipidemia Nonobstructive atherosclerosis of coronary artery Chief Complaint Chest pain/PALP CYST SLING- ADD LABS SDC 6 wk FU Ongoing Hip Pain e orders Reason for Visit Chest pain Dyspnea on exertion Essential (primary) hypertension Hyperlipidemia Nonobstructive atherosclerosis of coronary artery Smoking greater than 30 pack years Degenerative disc disease, cervical Trochanteric bursitis of left hip Essential (primary) hypertension Hyperlipidemia MELYSSA (obstructive sleep apnea) Smoking greater than 30 pack years Chief Complaint CYST SLING- ADD LABS SDC 6 wk FU Ongoing Hip Pain e orders CP, NONOBSTRUCTIVE CAD Reason for Visit Chest pain Dyspnea on exertion Essential (primary) hypertension Hyperlipidemia Nonobstructive atherosclerosis of coronary artery Smoking greater than 30 pack years Degenerative disc disease, cervical Trochanteric bursitis of left hip Essential (primary) hypertension Hyperlipidemia MELYSSA (obstructive sleep apnea) Smoking greater than 30 pack years Chief Complaint CYST SLING- ADD LABS SDC 6 wk FU Ongoing Hip Pain e orders CP, NONOBSTRUCTIVE CAD HYPERGLYCEMIA Reason for Visit Chest pain Dyspnea on exertion Essential (primary) hypertension Hyperlipidemia Nonobstructive atherosclerosis of coronary artery Smoking greater than 30 pack years Degenerative disc disease, cervical Trochanteric bursitis of left hip Essential (primary) hypertension Hyperlipidemia MELYSSA (obstructive sleep apnea) Smoking greater than 30 pack years Chief Complaint 3 WK FU Consult INT LABS Reason for Visit Liver disease Hyperlipidemia Smoking greater than 30 pack years Liver disease Chief Complaint 3 WK FU Consult INT LABS SMOKER ASTHMA Asthma Reason for Visit Liver disease Hyperlipidemia Smoking greater than 30 pack years Liver disease Chief Complaint Follow up after test Diabetes Reason for Visit Asthma Bronchiectasis MELYSSA (obstructive sleep apnea) Smoking greater than 30 pack years Diabetes Essential (primary) hypertension Hyperlipidemia Obesity Chief Complaint 3 WK FU Consult INT LABS SMOKER ASTHMA Asthma ASTHMA SOB Reason for Visit Liver disease Hyperlipidemia Smoking greater than 30 pack years Liver disease Chief Complaint Admit Date [facility] F/U October 05, 2024 10:52am CP October 17, 2024 5 :39am CP October 17, 2024 3 :02pm E-ORDER November 24, 2024 2: 24pm COUGH COUGH December 10, 2024 1 1:42am Possible Shingles December 15, 2024 1 :48pm EORDERS January 10, 2025 1:12pm EORDERS January 23, 2025 1:5 1pm Spots on Face, Cold Symptoms January 23, 2025 2:31pm 7 M FU, RS 12/27January 31, 2025 3:0 3pm Reason for Visit Admit Date Anxiety October 05, 2024 10:52am Severe headache October 05, 2024 10:52am TIA (transient ischemic attack) October 05, 2024 10:52am Essential (primary) hypertension Novembe 2023 10:52am Hyperlipidemia October 05, 2024 10:52am Nonobstructive atherosclerosis of wu ry artery October 05, 2024 10:52am MELYSSA (obstructive sleep apnea) September 172023 10:52am Smoking greater than 30 pack years Novem 2023 10:52am Stress incontinence December 15, 2024 1 :48pm UTI (urinary tract infection) December 152024 1:48pm Essential (primary) hypertension December 15, 2024 1:48pm COPD exacerbation December 15, 2024 1 :48pm Influenza A December 15, 2024 1 :48pm Fatty liver disease, nonalcoholic January 23, 2025 2:31pm Nausea and vomiting January 23, 2025 2:3 1pm Osteoporosis January 23, 2025 2:3 1pm Severe headache January 23, 2025 2:3 1pm URI (upper respiratory infection) January 23, 2025 2:31pm Diabetes January 23, 2025 2:3 1pm Essential (primary) hypertension January 142024 2:31pm Hyperlipidemia January 23, 2025 2:3 1pm MELYSSA (obstructive sleep apnea) January 2:31pm Diabetes January 31, 2025 3:0 3pm Chief Complaint Admit Date E-ORDER November 24, 2024 2: 24pm COUGH COUGH December 10, 2024 1 1:42am Possible Shingles December 15, 2024 1 :48pm EORDERS January 10, 2025 1:12pm EORDERS January 23, 2025 1:5 1pm Spots on Face, Cold Symptoms January 23, 2025 2:31pm 7 M FU, RS 12/27January 31, 2025 3:0 3pm FREQUENT INCREASING HEADACHE, DIZZINESS February 16, 2025 4:58pm LUMBAR SPINE February 21, 2025 2:05 pm Health Concerns February 23, 2025 1:1 7pm upper ext inj March 02, 2025 3:5 1pm Reason for Visit Admit Date Stress incontinence December 15, 2024 1 :48pm UTI (urinary tract infection) December 152024 1:48pm Essential (primary) hypertension December 15, 2024 1:48pm COPD exacerbation December 15, 2024 1 :48pm Influenza A December 15, 2024 1 :48pm Fatty liver disease, nonalcoholic January 23, 2025 2:31pm Nausea and vomiting January 23, 2025 2:3 1pm Osteoporosis January 23, 2025 2:3 1pm Severe headache January 23, 2025 2:3 1pm URI (upper respiratory infection) January 23, 2025 2:31pm Diabetes January 23, 2025 2:3 1pm Essential (primary) hypertension January 142024 2:31pm Hyperlipidemia January 23, 2025 2:3 1pm MELYSSA (obstructive sleep apnea) January 2:31pm Diabetes January 31, 2025 3:0 3pm Essential (primary) hypertension January 142024 3:03pm Hyperlipidemia January 31, 2025 3:0 3pm Obesity January 31, 2025 3:0 3pm Other intervertebral disc de generation, lumbar region with discogenic back February 21, 2025 2:05pm Cervical radiculopathy February 23, 2025 1:17pm Nausea and vomiting February 23, 2025 1:1 7pm Other intervertebral disc de generation, lumbar region with discogenic back February 23, 2025 1:17pm Essential (primary) hypertension February 142024 1:17pm Hyperlipidemia February 23, 2025 1:1 7pm MELYSSA (obstructive sleep apnea) February 1:17pm Chief Complaint Admit Date EORDERS January 10, 2025 1:12pm EORDERS January 23, 2025 1:5 1pm Spots on Face, Cold Symptoms January 23, 2025 2:31pm 7 M FU, RS 12/27January 31, 2025 3:0 3pm FREQUENT INCREASING HEADACHE, DIZZINESS February 16, 2025 4:58pm LUMBAR SPINE February 21, 2025 2:05 pm Health Concerns February 23, 2025 1:1 7pm upper ext inj March 02, 2025 3:5 1pm upper ext inj March 02, 2025 9:2 1pm RIGHT ELBOW March 03, 2025 9:5 3am right elbow March 10, 2025 10: 51am RM March 10, 2025 11: 25am right elbow March 21, 2025 10:44a m Room 1 March 21, 2025 10:57a m R ELBOW FX. RX HERE (2ND RX-LUMBAR PAIN) March 30, 2025 11:52am RIGHT ELBOW April 18, 2025 1:21p m Room 1 April 18, 2025 1:27p m Reason for Visit Admit Date Fatty liver disease, nonalcoholic January 23, 2025 2:31pm Nausea and vomiting January 23, 2025 2:3 1pm Osteoporosis January 23, 2025 2:3 1pm Severe headache January 23, 2025 2:3 1pm URI (upper respiratory infection) January 23, 2025 2:31pm Diabetes January 23, 2025 2:3 1pm Essential (primary) hypertension January 142024 2:31pm Hyperlipidemia January 23, 2025 2:3 1pm MELYSSA (obstructive sleep apnea) January 2:31pm Diabetes January 31, 2025 3:0 3pm Essential (primary) hypertension January 142024 3:03pm Hyperlipidemia January 31, 2025 3:0 3pm Obesity January 31, 2025 3:0 3pm Other intervertebral disc de generation, lumbar region with discogenic back February 21, 2025 2:05pm Cervical radiculopathy February 23, 2025 1:17pm Nausea and vomiting February 23, 2025 1:1 7pm Other intervertebral disc de generation, lumbar region with discogenic back February 23, 2025 1:17pm Essential (primary) hypertension February 142024 1:17pm Hyperlipidemia February 23, 2025 1:1 7pm MELYSSA (obstructive sleep apnea) February 1:17pm Closed fracture of right elbow February 9:53am Elbow fracture, right March 08, 2025 1 0:55am Closed fracture of right elbow February 10:55am Elbow fracture, right March 10, 2025 1 0:51am Elbow fracture, right March 21, 2025 10:4 4am Elbow fracture, right April 18, 2025 1:2 1pm Chief Complaint Admit Date EORDERS January 10, 2025 1:12pm EORDERS January 23, 2025 1:5 1pm Spots on Face, Cold Symptoms January 23, 2025 2:31pm 7 M FU, RS 12/27January 31, 2025 3:0 3pm FREQUENT INCREASING HEADACHE, DIZZINESS February 16, 2025 4:58pm LUMBAR SPINE February 21, 2025 2:05 pm Health Concerns February 23, 2025 1:1 7pm upper ext inj March 02, 2025 3:5 1pm upper ext inj March 02, 2025 9:2 1pm RIGHT ELBOW March 03, 2025 9:5 3am right elbow March 10, 2025 10: 51am RM 1 March 10, 2025 11: 25am right elbow March 21, 2025 10:44a m Room 1 March 21, 2025 10:57a m RIGHT ELBOW April 18, 2025 1:21p m Room 1 April 18, 2025 1:27p m R ELBOW FX. RX HERE (2ND RX-LUMBAR PAIN) April 27, 2025 12:00pm 3 M FU May 02, 2025 1:21 pm Chief Complaint Admit Date EORDERS January 23, 2025 1:5 1pm Spots on Face, Cold Symptoms January 23, 2025 2:31pm 7 M FU, RS 12/27January 31, 2025 3:0 3pm FREQUENT INCREASING HEADACHE, DIZZINESS February 16, 2025 4:58pm LUMBAR SPINE February 21, 2025 2:05 pm Health Concerns February 23, 2025 1:1 7pm upper ext inj March 02, 2025 3:5 1pm upper ext inj March 02, 2025 9:2 1pm RIGHT ELBOW March 03, 2025 9:5 3am right elbow March 10, 2025 10: 51am RM 1 March 10, 2025 11: 25am right elbow March 21, 2025 10:44a m Room 1 March 21, 2025 10:57a m RIGHT ELBOW April 18, 2025 1:21p m Room 1 April 18, 2025 1:27p m R ELBOW FX. RX HERE (2ND RX-LUMBAR PAIN) April 27, 2025 12:00pm 3 M FU May 02, 2025 1:21 pm BODY ACHES, CONGESTION, COUGH May 19, 2025 11:17am Reason for Visit Admit Date Fatty liver disease, nonalcoholic January 23, 2025 2:31pm Nausea and vomiting January 23, 2025 2:3 1pm Osteoporosis January 23, 2025 2:3 1pm Severe headache January 23, 2025 2:3 1pm URI (upper respiratory infection) January 23, 2025 2:31pm Diabetes January 23, 2025 2:3 1pm Essential (primary) hypertension January 142024 2:31pm Hyperlipidemia January 23, 2025 2:3 1pm MELYSSA (obstructive sleep apnea) January 2:31pm Diabetes January 31, 2025 3:0 3pm Essential (primary) hypertension January 142024 3:03pm Hyperlipidemia January 31, 2025 3:0 3pm Obesity January 31, 2025 3:0 3pm Other intervertebral disc de generation, lumbar region with discogenic back February 21, 2025 2:05pm Cervical radiculopathy February 23, 2025 1:17pm Nausea and vomiting February 23, 2025 1:1 7pm Other intervertebral disc de generation, lumbar region with discogenic back February 23, 2025 1:17pm Essential (primary) hypertension February 142024 1:17pm Hyperlipidemia February 23, 2025 1:1 7pm MELYSSA (obstructive sleep apnea) February 1:17pm Closed fracture of right elbow February 9:53am Elbow fracture, right March 08, 2025 1 0:55am Closed fracture of right elbow February 10:55am Elbow fracture, right March 10, 2025 1 0:51am Elbow fracture, right March 21, 2025 10:4 4am Elbow fracture, right April 18, 2025 1:2 1pm Elbow fracture, right May 02, 2025 1: 21pm Diabetes May 02, 2025 1:21 pm Essential (primary) hypertension May 022024 1:21pm Hyperlipidemia May 02, 2025 1:21 pm Chief Complaint Admit Date Health Concerns February 23, 2025 1:1 7pm upper ext inj March 02, 2025 3:5 1pm upper ext inj March 02, 2025 9:2 1pm RIGHT ELBOW March 03, 2025 9:5 3am right elbow March 10, 2025 10: 51am RM 1 March 10, 2025 11: 25am right elbow March 21, 2025 10:44a m Room 1 March 21, 2025 10:57a m RIGHT ELBOW April 18, 2025 1:21p m Room 1 April 18, 2025 1:27p m R ELBOW FX. RX HERE (2ND RX-LUMBAR PAIN) April 27, 2025 12:00pm 3 M FU May 02, 2025 1:21 pm BODY ACHES, CONGESTION, COUGH May 19, 2025 11:17am Reason for Visit Admit Date Cervical radiculopathy February 23, 2025 1:17pm Nausea and vomiting February 23, 2025 1:1 7pm Other intervertebral disc de generation, lumbar region with discogenic back February 23, 2025 1:17pm Essential (primary) hypertension February 142024 1:17pm Hyperlipidemia February 23, 2025 1:1 7pm MELYSSA (obstructive sleep apnea) February 1:17pm Closed fracture of right elbow February 9:53am Elbow fracture, right March 08, 2025 1 0:55am Closed fracture of right elbow February 10:55am Elbow fracture, right March 10, 2025 1 0:51am Elbow fracture, right March 21, 2025 10:4 4am Elbow fracture, right April 18, 2025 1:2 1pm Elbow fracture, right May 02, 2025 1: 21pm Diabetes May 02, 2025 1:21 pm Essential (primary) hypertension May 022024 1:21pm Hyperlipidemia May 02, 2025 1:21 pm Acute bronchitis May 19, 2025 11:17 am Chief Complaint Admit Date right elbow March 21, 2025 10:44a m Room 1 March 21, 2025 10:57a m RIGHT ELBOW April 18, 2025 1:21p m Room 1 April 18, 2025 1:27p m R ELBOW FX. RX HERE (2ND RX-LUMBAR PAIN) April 27, 2025 12:00pm 3 M FU May 02, 2025 1:21 pm BODY ACHES, CONGESTION, COUGH May 19, 2025 11:17am Urinary tract infection July 10 1:55pm Reason for Visit Admit Date Elbow fracture, right March 21, 2025 10:4 4am Elbow fracture, right April 18, 2025 1:2 1pm Elbow fracture, right May 02, 2025 1: 21pm Diabetes May 02, 2025 1:21 pm Essential (primary) hypertension May 022024 1:21pm Hyperlipidemia May 02, 2025 1:21 pm Acute bronchitis May 19, 2025 11:17 am Additional Source Comments INFORMATION SOURCE (unrecogn ized section and content) DATE CREATED AUTHOR 05/07/2018 [facility] DATE CREATED AUTHOR AUTHOR'S ORGANIZ ATION 09/02/2018 [facility] DATE CREATED AUTHOR AUTHOR'S ORGANIZ ATION 09/29/[address] [facility] DATE CREATED AUTHOR AUTHOR'S ORGANIZ ATION 07/12/2020 [facility] DATE CREATED AUTHOR AUTHOR'S ORGANIZ ATION 05/08/2024 [facility] DATE CREATED AUTHOR AUTHOR'S ORGANIZ ATION 09/08/2025 [facility] Source Comments (unrecognize d section and content) In the event this informatio n is protected by the Federal Confidentiality of Alcohol and Drug Abuse Patient Records regulations: The Federal rules restrict any use of the information to criminally investigate or prosecute any alcohol or drug abuse patient.[facility] the event this information is protected by the Federal Confidentiality of Alcohol and Drug Abuse Patient Records regulations: The Federal rules restrict any use of the information to criminally investigate or prosecute any alcohol or drug abuse patient.[facility] Hospital[facility] the event this information is protected by the Federal Confidentiality of Alcohol and Drug Abuse Patient Records regulations: The Federal rules restrict any use of the information to criminally investigate or prosecute any alcohol or drug abuse patient.[facility] Hospital[facility] the event this information is protected by the Federal Confidentiality of Alcohol and Drug Abuse Patient Records regulations: The Federal rules restrict any use of the information to criminally investigate or prosecute any alcohol or drug abuse patient.[facility] HospitalIn the event this information is protected by the Federal Confidentiality of Alcohol and Drug Abuse Patient Records regulations: The Federal rules restrict any use of the information to criminally investigate or prosecute any alcohol or drug abuse patient.[facility] Hospital[facility] the event this information is protected by the Federal Confidentiality of Alcohol and Drug Abuse Patient Records regulations: The Federal rules restrict any use of the information to criminally investigate or prosecute any alcohol or drug abuse patient.[facility] Hospital[facility] the event this information is protected by the Federal Confidentiality of Alcohol and Drug Abuse Patient Records regulations: The Federal rules restrict any use of the information to criminally investigate or prosecute any alcohol or drug abuse patient.[facility] Hospital[facility] the event this information is protected by the Federal Confidentiality of Alcohol and Drug Abuse Patient Records regulations: The Federal rules restrict any use of the information to criminally investigate or prosecute any alcohol or drug abuse patient.[facility] Hospital[facility] the event this information is protected by the Federal Confidentiality of Alcohol and Drug Abuse Patient Records regulations: The Federal rules restrict any use of the information to criminally investigate or prosecute any alcohol or drug abuse patient.[facility] HospitalIn the event this information is protected by the Federal Confidentiality of Alcohol and Drug Abuse Patient Records regulations: The Federal rules restrict any use of the information to criminally investigate or prosecute any alcohol or drug abuse patient.[facility] Hospital[facility] the event this information is protected by the Federal Confidentiality of Alcohol and Drug Abuse Patient Records regulations: The Federal rules restrict any use of the information to criminally investigate or prosecute any alcohol or drug abuse patient.[facility] HospitalIn the event this information is protected by the Federal Confidentiality of Alcohol and Drug Abuse Patient Records regulations: The Federal rules restrict any use of the information to criminally investigate or prosecute any alcohol or drug abuse patient.[facility] HospitalIn the event this information is protected by the Federal Confidentiality of Alcohol and Drug Abuse Patient Records regulations: The Federal rules restrict any use of the information to criminally investigate or prosecute any alcohol or drug abuse patient.[facility] HospitalIn the event this information is protected by the Federal Confidentiality of Alcohol and Drug Abuse Patient Records regulations: The Federal rules restrict any use of the information to criminally investigate or prosecute any alcohol or drug abuse patient.[facility] HospitalIn the event this information is protected by the Federal Confidentiality of Alcohol and Drug Abuse Patient Records regulations: The Federal rules restrict any use of the information to criminally investigate or prosecute any alcohol or drug abuse patient.[facility] HospitalIn the event this information is protected by the Federal Confidentiality of Alcohol and Drug Abuse Patient Records regulations: The Federal rules restrict any use of the information to criminally investigate or prosecute any alcohol or drug abuse patient.[facility] HospitalIn the event this information is protected by the Federal Confidentiality of Alcohol and Drug Abuse Patient Records regulations: The Federal rules restrict any use of the information to criminally investigate or prosecute any alcohol or drug abuse patient.[facility] HospitalIn the event this information is protected by the Federal Confidentiality of Alcohol and Drug Abuse Patient Records regulations: The Federal rules restrict any use of the information to criminally investigate or prosecute any alcohol or drug abuse patient.[facility] HospitalIn the event this information is protected by the Federal Confidentiality of Alcohol and Drug Abuse Patient Records regulations: The Federal rules restrict any use of the information to criminally investigate or prosecute any alcohol or drug abuse patient.[facility] HospitalIn the event this information is protected by the Federal Confidentiality of Alcohol and Drug Abuse Patient Records regulations: The Federal rules restrict any use of the information to criminally investigate or prosecute any alcohol or drug abuse patient.[facility] Reason for Visit (unrecogniz ed section and content) Reason Comments Follow Up Anxiety Depression Sleep Problem Reason Comments Medication Problem Reason Comments Cough [...] BS AM 112 Reason Comments Follow Up Reason Comments Rash Reason Comments possible allergic reaction to medication X 3 days Care Teams (unrecognized sec tion and content) Counseling Center Director Relationship Specialty Start Date End Date James Watson MD [address] [place] [address] PCP - General Family Practice 07/29/21 Mare River III, MD Family Practice 08/03/17 [facility] [address] [facility] [place] [address] Pharmacist Pharmacy 09/19/21 Counseling Center Director Relationship Specialty Start Date End Date James Watson MD [address] [place] [address] PCP - General Family Practice 07/29/21 Mare River III, MD [facility] 08/03/17 [facility] [address] [facility] [place] [place] [address] Pharmacist Pharmacy 09/19/21 Counseling Center Director Relationship Specialty Start Date End Date James Watson MD [address] [facility] [place] [address] PCP - General Family Practice 07/29/21 Mare River III, MD [facility] 08/03/17 [facility] [address] [facility] [place] [address] Pharmacist Pharmacy 09/19/21 Counseling Center Director Relationship Specialty Start Date End Date James Watson MD [address] [place] [address] PCP - General Family Practice 07/29/21 Mare River III, MD Family Practice 08/03/17 [facility] [address] [place] [address] Pharmacist Pharmacy 09/19/21 Counseling Center Director Relationship Specialty Start Date End Date James Watson MD [address] [place] [address] PCP - General Family Practice 07/29/21 Mare River III, MD Family [facility] 08/03/17 [facility] [address] [place] [address] Pharmacist Pharmacy 09/19/21 Counseling Center Director Relationship Specialty Start Date End Date James Watson MD [address] [place] [address] PCP - General Family Practice 07/29/21 Mare River III, MD [facility] 08/03/17 [facility] [address] [place] [address] Pharmacist Pharmacy 09/19/21 Counseling Center Director Relationship Specialty Start Date End Date James Watson MD [address] [place] [address] PCP - General Family Practice 07/29/21 Mare River III, MD Family [facility] 08/03/17 [facility] [address] [place] [address] Pharmacist Pharmacy 09/19/21 Counseling Center Director Relationship Specialty Start Date End Date James Watson MD [address] [place] [address] PCP - General Family Medicine 07/29/21 Mare River III, MD Family Medicine 08/03/17 Karena Sheriff, h [address] [place] [address] Pharmacist Pharmacy 09/19/21 Team Status: Active Member Role Status Dates Dr. Mare River III, MD Family Provider Active Dr. Dannielle Thomas MD Primary Care Provider Active Team Status: Inactive Member Role Status Dates Dr. Dannielle Thomas MD Primary Care Provider, Referri ng Provider Active Dr. Aime Timmons DO Attending Provider Active Team Status: Inactive Member Role Status Dates Dr. Dannielle Thomas MD Primary Care Provider, Referri ng Provider Active Eloise Holloway TRAFFIC INVESTIGATOR, TRAFFIC INVESTIGATOR-C Attending Provider Active Team Status: Active Member Role Status Dates Dr. Dannielle Thomas MD Primary Care Provider Active Dr. Gualberto Gomez MD Attending Provider Active Dr. Inez Rousseau MD Referring Provider Active Team Status: Inactive Member Role Status Dates Dr. Dannielle Thomas MD Primary Care Provider, Referri ng Provider Active Wendy Hinton TRAFFIC INVESTIGATOR, TRAFFIC INVESTIGATOR-C Attending Provider Active Team Status: Active Member Role Status Dates Dr. Dannielle Thomas MD Primary Care Provider Active Dr. Gualberto Gomez MD Attending Provider Active Team Status: Inactive Member Role Status Dates Dr. Dannielle Thomas MD Primary Care Provider Active Dr. Inez Rousseau MD Attending Provider, Referring P rovider Active Team Status: Inactive Member Role Status Dates Dr. Dannielle Thomas MD Primary Care Provider Active Wendy Hinton TRAFFIC INVESTIGATOR, TRAFFIC INVESTIGATOR-C Attending Provider, Referring P rovider Active Team Status: Active Member Role Status Dates Dr. Dannielle Thomas MD Primary Care Provider Active Dr. Gualberto Gomez MD Attending Provider, Referring Pro vider Active Team Status: Inactive Member Role Status Dates Dr. Dannielle Thomas MD Primary Care Provider Active Dr. Inez Rousseau MD Attending Provider, Referring P rovider Active Dr. Kike Green MD Other Provider Active Team Status: Inactive Member Role Status Dates Dr. Dannielle Thomas MD Primary Care Provider, Attendi ng Provider Active Team Status: Inactive Member Role Status Dates Dr. Dannielle Thomas MD Primary Care Provider Active Dr. Gualberto Gomez MD Attending Provider Active Team Status: Active Member Role Status Dates Dr. Dannielle Thomas MD Primary Care Provider Active Elizabeth DELVALLE PA Attending Provider, Referr ing Provider Active Team Status: Inactive Member Role Status Dates Dr. Dannielle Thomas MD Primary Care Provider Active Elizabeth DELVALLE PA Attending Provider, Referr ing Provider Active Team Status: Inactive Member Role Status Dates Dr. Dannielle Thomas MD Primary Care Provider Active Dr. Gualberto Gomez MD Attending Provider, Referring Pro vider Active Team Status: Inactive Member Role Status Dates Dr. Dannielle Thomas MD Primary Care Provider Active Dr. Aida Jeffery MD Emergency Provider Active Team Status: Inactive Member Role Status Dates Dr. Dannielle Thomas MD Primary Care Provider, Referri ng Provider Active Dr. Pranav Brice DO Attending Provider Active Team Status: Inactive Member Role Status Dates Dr. Dannielle Thomas MD Primary Care Provider Active Dr. Pranav Brice DO Attending Provider, Referring Provider Active Team Status: Active Member Role Status Dates Dr. Dannielle Thomas MD Primary Care Provider Active Eloise Holloway TRAFFIC INVESTIGATOR, TRAFFIC INVESTIGATOR-C Referring Provider, Other Pr ovider Active Dr. Kaz Hodge DO Attending Provider Active Team Status: Active Member Role Status Dates Dr. Dannielle Thomas MD Primary Care Provider Active Eloise Holloway TRAFFIC INVESTIGATOR, TRAFFIC INVESTIGATOR-C Attending Provider, Referrin g Provider Active Team Status: Inactive Member Role Status Dates Dr. Dannielle Thomas MD Primary Care Provider Active Eloise Holloway TRAFFIC INVESTIGATOR, TRAFFIC INVESTIGATOR-C Attending Provider Active [facility] Relationship Specialty Start Date End Date James Watson MD [address] [place] [address] PCP - General Family Medicine 07/29/21 Mare River III, MD Family Medicine 08/03/17 Team Status: Inactive Member Role Status Dates Dr. Dannielle Thomas MD Primary Care Provider, Referri ng Provider Active Dr. Elvis Sharif MD Attending Provider Active Team Status: Inactive Member Role Status Dates Dr. Dannielle Thomas MD Primary Care Provider, Referri ng Provider Active Dr. Kumar Manzanares MD Attending Provider Active [facility] Director Relationship Specialty Start Date End Date Dannielle Thomas MD [address] [place] [address] PCP - General Internal Medicine 02/11/24 Mare River III, MD Family Medicine 08/03/17 [facility] Director Relationship Specialty Start Date End Date Dannielle Thomas MD [address] [place] [address] PCP - General Internal Medicine 02/11/24 Mare River III, MD Family Medicine 08/03/17 [facility] Director Relationship Specialty Start Date End Date James Watson MD [address] [place] [address] PCP - General Family Medicine 07/29/21 02/10/24 Mare River III, MD Family Medicine 08/03/17 Karena Sheriff, [facility] [address] [place] [address] Pharmacist Pharmacy 09/19/21 06/10/23 [facility] Director Relationship Specialty Start Date End Date James Watson MD [address] [place] [address] PCP - General Family Medicine 07/29/21 02/10/24 Mare River III, MD Family Medicine 08/03/17 Karena Sheriff, [facility] [address] [place], [place] [id number] Pharmacist Pharmacy 09/19/21 06/10/23 Team Status: Inactive Member Role Status Dates Dr. Dannielle Thomas MD Primary Care Provider Active Eloise Holloway TRAFFIC INVESTIGATOR, TRAFFIC INVESTIGATOR-C Attending Provider, Contreras borges Provider Active [facility] Director Relationship Specialty Start Date End Date Dannielle Thomas MD [facility] [place] [address] PCP - General Internal Medicine 02/11/24 Mare River III, MD Family Medicine 08/03/17 Team Status: Active Member Role Status Dates Dr. Dannielle Thomas MD Primary Care Provider Active Team Status: Inactive Member Role Status Dates Dr. Dannielle Thomas MD Primary Care Provider Active Start: October 05, 2024 End: October 05, 2024 Dr. Dannielle Thomas MD Attending Provider Active Start: October 05, 2024 End: October 05, 2024 Team Status: Inactive Member Role Status Dates Dr. Dannielle Thomas MD Primary Care Provider Active Start: October 17, 2024 End: October 17, 2024 Dr. Dannielle Thomas MD Attending Provider Active Start: October 17, 2024 End: October 17, 2024 Dr. Dannielle Thomas MD Referring Provider Active Start: October 17, 2024 End: October 17, 2024 Team Status: Active Member Role Status Dates Dr. Dannielle Thomas MD Primary Care Provider Active Start: October 17, 2024 Dr. Dannielle Thomas MD Referring Provider Active Start: October 17, 2024 Dr. Dannielle Thomas MD Other Provider Active St art: October 17, 2024 Dr. Liliya Keene MD Attending Provider Activ e Start: October 17, 2024 Team Status: Inactive Member Role Status Dates Dr. Dannielle Thomas MD Primary Care Provider Active Start: November 24, 2024 End: November 24, 2024 Dr. Dannielle Thomas MD Attending Provider Active Start: November 24, 2024 End: November 24, 2024 Dr. Dannielle Thomas MD Referring Provider Active Start: November 24, 2024 End: November 24, 2024 Team Status: Inactive Member Role Status Dates Dr. Dannielle Thomas MD Primary Care Provider Active Start: December 10, 2024 End: December 10, 2024 Dr. Beau Edmonds DO Attending Provider Active Start: December 10, 2024 End: December 10, 2024 Dr. Beau Edmonds DO Emergency Provider Active Start: December 10, 2024 End: December 10, 2024 Team Status: Inactive Member Role Status Dates Dr. Dannielle Thomas MD Primary Care Provider Active Start: December 15, 2024 End: December 15, 2024 Dr. Dannielle Thomas MD Attending Provider Active Start: December 15, 2024 End: December 15, 2024 Team Status: Inactive Member Role Status Dates Dr. Dannielle Thomas MD Primary Care Provider Active Start: December 15, 2024 End: December 15, 2024 Dr. Dannielle Thomas MD Attending Provider Active Start: December 15, 2024 End: December 15, 2024 Dr. Dannielle Thomas MD Referring Provider Active Start: December 15, 2024 End: December 15, 2024 Team Status: Inactive Member Role Status Dates Dr. Dannielle Thomas MD Primary Care Provider Active Start: January 10, 2025 End: January 10, 2025 Dr. Dannielle Thomas MD Attending Provider Active Start: January 10, 2025 End: January 10, 2025 Dr. Dannielle Thomas MD Referring Provider Active Start: January 10, 2025 End: January 10, 2025 Team Status: Inactive Member Role Status Dates Dr. Dannielle Thomas MD Primary Care Provider Active Start: January 23, 2025 End: January 23, 2025 Dr. Dannielle Thomas MD Attending Provider Active Start: January 23, 2025 End: January 23, 2025 Dr. Dannielle Thomas MD Referring Provider Active Start: January 23, 2025 End: January 23, 2025 Team Status: Inactive Member Role Status Dates Dr. Dannielle Thomas MD Primary Care Provider Active Start: January 23, 2025 End: January 23, 2025 Dr. Dannielle Thomas MD Attending Provider Active Start: January 23, 2025 End: January 23, 2025 Team Status: Inactive Member Role Status Dates Dr. Dannielle Thomas MD Primary Care Provider Active Start: January 31, 2025 End: January 31, 2025 Dr. Dannielle Thomas MD Referring Provider Active Start: January 31, 2025 End: January 31, 2025 Dr. Elvis Sharif MD Attending Provider Active Sta rt: January 31, 2025 End: January 31, 2025 Team Status: Inactive Member Role Status Dates Dr. Dannielle Thomas MD Primary Care Provider Active Start: February 16, 2025 End: February 16, 2025 Dr. Dannielle Thomas MD Attending Provider Active Start: February 16, 2025 End: February 16, 2025 Dr. Dannielle Thomas MD Referring Provider Active Start: February 16, 2025 End: February 16, 2025 Team Status: Inactive Member Role Status Dates Dr. Dannielle Thomas MD Primary Care Provider Active Start: February 21, 2025 End: February 21, 2025 Dr. Dannielle Thomas MD Referring Provider Active Start: February 21, 2025 End: February 21, 2025 Dr. Dominik Loza MD Attending Provider Active Start: February 21, 2025 End: February 21, 2025 Team Status: Inactive Member Role Status Dates Dr. Dannielle Thomas MD Primary Care Provider Active Start: February 23, 2025 End: February 23, 2025 Dr. Dannielle Thomas MD Attending Provider Active Start: February 23, 2025 End: February 23, 2025 Team Status: Inactive Member Role Status Dates Dr. Dannielle Thomas MD Primary Care Provider Active Start: March 02, 2025 End: March 02, 2025 Dr. Herman Gale DO Referring Provider Active Start : March 02, 2025 End: March 02, 2025 Dr. Herman Gale DO Emergency Provider Active Start : March 02, 2025 End: March 02, 2025 Team Status: Inactive Member Role Status Dates Dr. Dannielle Thomas MD Primary Care Provider Active Start: March 02, 2025 End: March 02, 2025 Dr. Herman Gale DO Attending Provider Active Start : March 02, 2025 End: March 02, 2025 Dr. Herman Gale DO Referring Provider Active Start : March 02, 2025 End: March 02, 2025 Dr. Herman Gale DO Emergency Provider Active Start : March 02, 2025 End: March 02, 2025 Team Status: Active Member Role Status Dates Dr. Dannielle Thomas MD Primary Care Provider Active Start: March 02, 2025 Dr. Herman Gale DO Referring Provider Active Start : March 02, 2025 Dr. Herman Le , DO Emergency Provider Active Start : March 02, 2025 Gurwinder Urena MD Attending Provider Active St art: March 02, 2025 Team Status: Inactive Member Role Status Dates Dr. Dannielle Thomas MD Primary Care Provider Active Start: March 03, 2025 End: March 03, 2025 Dr. Dannielle Thomas MD Referring Provider Active Start: March 03, 2025 End: March 03, 2025 Gurwinder Urena MD Attending Provider Active St art: March 03, 2025 End: March 03, 2025 Team Status: Inactive Member Role Status Dates Dr. Dannielle Thomas MD Primary Care Provider Active Start: March 08, 2025 End: March 08, 2025 Gurwinder Urena MD Attending Provider Active St art: March 08, 2025 End: March 08, 2025 Gurwinder Urena MD Referring Provider Active St art: March 08, 2025 End: March 08, 2025 Team Status: Active Member Role Status Dates Dr. Dannielle Thomas MD Primary Care Provider Active Start: March 08, 2025 Gurwinder Urena MD Attending Provider Active St art: March 08, 2025 Gurwinder Urena MD Referring Provider Active St art: March 08, 2025 Gurwinder Urena MD Other Provider Active Start: March 08, 2025 Team Status: Inactive Member Role Status Dates Dr. Dannielle Thomas MD Primary Care Provider Active Start: March 10, 2025 End: March 10, 2025 Dr. Dannielle Thomas MD Referring Provider Active Start: March 10, 2025 End: March 10, 2025 Gurwinder Urena MD Attending Provider Active St art: March 10, 2025 End: March 10, 2025 Team Status: Inactive Member Role Status Dates Dr. Dannielle Thomas MD Primary Care Provider Active Start: March 10, 2025 End: March 10, 2025 Dr. Gualberto Gomez MD Attending Provider Active S tart: March 10, 2025 End: March 10, 2025 Team Status: Inactive Member Role Status Dates Dr. Dannielle Thomas MD Primary Care Provider Active Start: March 21, 2025 End: March 21, 2025 Dr. Dannielle Thomas MD Referring Provider Active Start: March 21, 2025 End: March 21, 2025 Gurwinder Urena MD Attending Provider Active St art: March 21, 2025 End: March 21, 2025 Team Status: Inactive Member Role Status Dates Dr. Dannielle Thomas MD Primary Care Provider Active Start: March 21, 2025 End: March 21, 2025 Dr. Gualberto Gomez MD Attending Provider Active S tart: March 21, 2025 End: March 21, 2025 Team Status: Active Member Role Status Dates Dr. Dannielle Thomas MD Primary Care Provider Active Start: March 30, 2025 Dr. Dominik Loza MD Attending Provider Active Start: March 30, 2025 Dr. Dominik Loza MD Referring Provider Active Start: March 30, 2025 Team Status: Active Member Role Status Dates Dr. Dannielle Thomas MD Primary Care Provider Active Start: April 18, 2025 Dr. Dannielle Thomas MD Referring Provider Active Start: April 18, 2025 Gurwinder Urena MD Attending Provider Active St art: April 18, 2025 Team Status: Inactive Member Role Status Dates Dr. Dannielle Thomas MD Primary Care Provider Active Start: April 18, 2025 End: April 18, 2025 Dr. Gualberto Gomez MD Attending Provider Active S tart: April 18, 2025 End: April 18, 2025 Team Status: Inactive Member Role Status Dates Dr. Dannielle Thomas MD Primary Care Provider Active Start: April 18, 2025 End: April 18, 2025 Dr. Dannielle Thomas MD Referring Provider Active Start: April 18, 2025 End: April 18, 2025 Gurwinder Urena MD Attending Provider Active St art: April 18, 2025 End: April 18, 2025 Team Status: Active Member Role Status Dates Dr. Dannielle Thomas MD Primary Care Provider Active Start: April 27, 2025 Dr. Dominik Loza MD Attending Provider Active Start: April 27, 2025 Dr. Dominik Loza MD Referring Provider Active Start: April 27, 2025 Team Status: Inactive Member Role Status Dates Dr. Dannielle Thomas MD Primary Care Provider Active Start: May 02, 2025 End: May 02, 2025 Dr. Dannielle Thomas MD Referring Provider Active Start: May 02, 2025 End: May 02, 2025 Dr. Elvis Sharif MD Attending Provider Active Sta rt: May 02, 2025 End: May 02, 2025 Team Status: Active Member Role/Relationship Status Dates Dr. Dannielle Thomas MD Primary Care Provider Active Team Status: Inactive Member Role/Relationship Status Dates Dr. Dannielle Thomas MD Primary Care Provider Active Start: January 23, 2025 End: January 23, 2025 Dr. Dannielle Thomas MD Attending Provider Active Start: January 23, 2025 End: January 23, 2025 Dr. Dannielle Thomas MD Referring Provider Active Start: January 23, 2025 End: January 23, 2025 Team Status: Inactive Member Role/Relationship Status Dates Dr. Dannielle Thomas MD Primary Care Provider Active Start: January 23, 2025 End: January 23, 2025 Dr. Dannielle Thomas MD Attending Provider Active Start: January 23, 2025 End: January 23, 2025 Team Status: Inactive Member Role/Relationship Status Dates Dr. Dannielle Thomas MD Primary Care Provider Active Start: January 31, 2025 End: January 31, 2025 Dr. Dannielle Thomas MD Referring Provider Active Start: January 31, 2025 End: January 31, 2025 Dr. Elvis Sharif MD Attending Provider Active Sta rt: January 31, 2025 End: January 31, 2025 Team Status: Inactive Member Role/Relationship Status Dates Dr. Dannielle Thomas MD Primary Care Provider Active Start: February 16, 2025 End: February 16, 2025 Dr. Dannielle Thomas MD Attending Provider Active Start: February 16, 2025 End: February 16, 2025 Dr. Dannielle Thomas MD Referring Provider Active Start: February 16, 2025 End: February 16, 2025 Team Status: Inactive Member Role/Relationship Status Dates Dr. Dannielle Thomas MD Primary Care Provider Active Start: February 21, 2025 End: February 21, 2025 Dr. Dannielle Thomas MD Referring Provider Active Start: February 21, 2025 End: February 21, 2025 Dr. Dominik Loza MD Attending Provider Active Start: February 21, 2025 End: February 21, 2025 Team Status: Inactive Member Role/Relationship Status Dates Dr. Dannielle Thomas MD Primary Care Provider Active Start: February 23, 2025 End: February 23, 2025 Dr. Dannielle Thomas MD Attending Provider Active Start: February 23, 2025 End: February 23, 2025 Team Status: Inactive Member Role/Relationship Status Dates Dr. Dannielle Thomas MD Primary Care Provider Active Start: March 02, 2025 End: March 02, 2025 Dr. Herman Gale DO Attending Provider Active Start : March 02, 2025 End: March 02, 2025 Dr. Herman Gale DO Referring Provider Active Start : March 02, 2025 End: March 02, 2025 Dr. Herman Gale DO Emergency Provider Active Start : March 02, 2025 End: March 02, 2025 Team Status: Active Member Role/Relationship Status Dates Dr. Dannielle Thomas MD Primary Care Provider Active Start: March 02, 2025 Dr. Herman Gale DO Referring Provider Active Start : March 02, 2025 Dr. Herman Gale DO Emergency Provider Active Start : March 02, 2025 Gurwinder Urena MD Attending Provider Active St art: March 02, 2025 Team Status: Inactive Member Role/Relationship Status Dates Dr. Dannielle Thomas MD Primary Care Provider Active Start: March 03, 2025 End: March 03, 2025 Dr. Dannielle Thomas MD Referring Provider Active Start: March 03, 2025 End: March 03, 2025 Gurwinder Urena MD Attending Provider Active St art: March 03, 2025 End: March 03, 2025 Team Status: Inactive Member Role/Relationship Status Dates Dr. Dannielle Thomas MD Primary Care Provider Active Start: March 08, 2025 End: March 08, 2025 Gurwinder Urena MD Attending Provider Active St art: March 08, 2025 End: March 08, 2025 Gurwinder Urena MD Referring Provider Active St art: March 08, 2025 End: March 08, 2025 Team Status: Active Member Role/Relationship Status Dates Dr. Dannielle Thomas MD Primary Care Provider Active Start: March 08, 2025 Gurwinder Urena MD Attending Provider Active St art: March 08, 2025 Gurwinder Urena MD Referring Provider Active St art: March 08, 2025 Gurwinder Urena MD Other Provider Active Start: March 08, 2025 Team Status: Inactive Member Role/Relationship Status Dates Dr. Dannielle Thomas MD Primary Care Provider Active Start: March 10, 2025 End: March 10, 2025 Dr. Dannielle Thomas MD Referring Provider Active Start: March 10, 2025 End: March 10, 2025 Gurwinder Urena MD Attending Provider Active St art: March 10, 2025 End: March 10, 2025 Team Status: Inactive Member Role/Relationship Status Dates Dr. Dannielle Thomas MD Primary Care Provider Active Start: March 10, 2025 End: March 10, 2025 Dr. Gualberto Gomez MD Attending Provider Active S tart: March 10, 2025 End: March 10, 2025 Team Status: Inactive Member Role/Relationship Status Dates Dr. Dannielle Thomas MD Primary Care Provider Active Start: March 21, 2025 End: March 21, 2025 Dr. Dannielle Thomas MD Referring Provider Active Start: March 21, 2025 End: March 21, 2025 Gurwinder Urena MD Attending Provider Active St art: March 21, 2025 End: March 21, 2025 Team Status: Inactive Member Role/Relationship Status Dates Dr. Dannielle Thomas MD Primary Care Provider Active Start: March 21, 2025 End: March 21, 2025 Dr. Gualberto Gomez MD Attending Provider Active S tart: March 21, 2025 End: March 21, 2025 Team Status: Inactive Member Role/Relationship Status Dates Dr. Dannielle Thomas MD Primary Care Provider Active Start: April 18, 2025 End: April 18, 2025 Dr. Dannielle Thomas MD Referring Provider Active Start: April 18, 2025 End: April 18, 2025 Gurwinder Urena MD Attending Provider Active St art: April 18, 2025 End: April 18, 2025 Team Status: Inactive Member Role/Relationship Status Dates Dr. Dannielle Thomas MD Primary Care Provider Active Start: April 18, 2025 End: April 18, 2025 Dr. Gualberto Gomez MD Attending Provider Active S tart: April 18, 2025 End: April 18, 2025 Team Status: Active Member Role/Relationship Status Dates Dr. Dannielle Thomas MD Primary Care Provider Active Start: April 27, 2025 Dr. Dominik Loza MD Attending Provider Active Start: April 27, 2025 Dr. Dominik Loza MD Referring Provider Active Start: April 27, 2025 Team Status: Inactive Member Role/Relationship Status Dates Dr. Dannielle Thomas MD Primary Care Provider Active Start: May 02, 2025 End: May 02, 2025 Dr. Dannielle Thomas MD Referring Provider Active Start: May 02, 2025 End: May 02, 2025 Dr. Elvis Sharif MD Attending Provider Active Sta rt: May 02, 2025 End: May 02, 2025 Team Status: Inactive Member Role/Relationship Status Dates Dr. Dannielle Thomas MD Primary Care Provider Active Start: May 19, 2025 End: May 19, 2025 Dr. Dannielle Thomas MD Referring Provider Active Start: May 19, 2025 End: May 19, 2025 MOOK Gustafson Attending Provider Active Sta rt: May 19, 2025 End: May 19, 2025 Team Status: Inactive Member Role/Relationship Status Dates Dr. Dannielle Thomas MD Primary Care Provider Active Start: February 23, 2025 End: February 23, 2025 Dr. Dannielle Thomas MD Attending Provider Active Start: February 23, 2025 End: February 23, 2025 Team Status: Inactive Member Role/Relationship Status Dates Dr. Dannielle Thomas MD Primary Care Provider Active Start: March 02, 2025 End: March 02, 2025 Dr. Herman Gale DO Attending Provider Active Start : March 02, 2025 End: March 02, 2025 Dr. Herman Gale DO Referring Provider Active Start : March 02, 2025 End: March 02, 2025 Dr. Herman Gale DO Emergency Provider Active Start : March 02, 2025 End: March 02, 2025 Team Status: Active Member Role/Relationship Status Dates Dr. Dannielle Thomas MD Primary Care Provider Active Start: March 02, 2025 Dr. Herman Gale DO Referring Provider Active Start : March 02, 2025 Dr. Herman Gale DO Emergency Provider Active Start : March 02, 2025 Gurwinder Urena MD Attending Provider Active St art: March 02, 2025 Team Status: Inactive Member Role/Relationship Status Dates Dr. Dannielle Thomas MD Primary Care Provider Active Start: March 03, 2025 End: March 03, 2025 Dr. Dannielle Thomas MD Referring Provider Active Start: March 03, 2025 End: March 03, 2025 Gurwinder Urena MD Attending Provider Active St art: March 03, 2025 End: March 03, 2025 Team Status: Inactive Member Role/Relationship Status Dates Dr. Dannielle Thomas MD Primary Care Provider Active Start: March 08, 2025 End: March 08, 2025 Gurwinder Urena MD Attending Provider Active St art: March 08, 2025 End: March 08, 2025 Gurwinder Urena MD Referring Provider Active St art: March 08, 2025 End: March 08, 2025 Team Status: Active Member Role/Relationship Status Dates Dr. Dannielle Thomas MD Primary Care Provider Active Start: March 08, 2025 Gurwinder Urena MD Attending Provider Active St art: March 08, 2025 Gurwinder Urena MD Referring Provider Active St art: March 08, 2025 Gurwinder Urena MD Other Provider Active Start: March 08, 2025 Team Status: Inactive Member Role/Relationship Status Dates Dr. Dannielle Thomas MD Primary Care Provider Active Start: March 10, 2025 End: March 10, 2025 Dr. Dannielle Thomas MD Referring Provider Active Start: March 10, 2025 End: March 10, 2025 Gurwinder Urena MD Attending Provider Active St art: March 10, 2025 End: March 10, 2025 Team Status: Inactive Member Role/Relationship Status Dates Dr. Dannielle Thomas MD Primary Care Provider Active Start: March 10, 2025 End: March 10, 2025 Dr. Gualberto Gomez MD Attending Provider Active S tart: March 10, 2025 End: March 10, 2025 Team Status: Inactive Member Role/Relationship Status Dates Dr. Dannielle Thomas MD Primary Care Provider Active Start: March 21, 2025 End: March 21, 2025 Dr. Dannielle Thomas MD Referring Provider Active Start: March 21, 2025 End: March 21, 2025 Gurwinder Urena MD Attending Provider Active St art: March 21, 2025 End: March 21, 2025 Team Status: Inactive Member Role/Relationship Status Dates Dr. Dannielle Thomas MD Primary Care Provider Active Start: March 21, 2025 End: March 21, 2025 Dr. Gualberto Gomez MD Attending Provider Active S tart: March 21, 2025 End: March 21, 2025 Team Status: Inactive Member Role/Relationship Status Dates Dr. Dannielle Thomas MD Primary Care Provider Active Start: April 18, 2025 End: April 18, 2025 Dr. Dannielle Thomas MD Referring Provider Active Start: April 18, 2025 End: April 18, 2025 Gurwinder Urena MD Attending Provider Active St art: April 18, 2025 End: April 18, 2025 Team Status: Inactive Member Role/Relationship Status Dates Dr. Dannielle Thomas MD Primary Care Provider Active Start: April 18, 2025 End: April 18, 2025 Dr. Gualberto Gomez MD Attending Provider Active S tart: April 18, 2025 End: April 18, 2025 Team Status: Inactive Member Role/Relationship Status Dates Dr. Dannielle Thomas MD Primary Care Provider Active Start: April 27, 2025 End: April 27, 2025 Dr. Dominik Loza MD Attending Provider Active Start: April 27, 2025 End: April 27, 2025 Dr. Dominik Loza MD Referring Provider Active Start: April 27, 2025 End: April 27, 2025 Team Status: Inactive Member Role/Relationship Status Dates Dr. Dannielle Thomas MD Primary Care Provider Active Start: May 02, 2025 End: May 02, 2025 Dr. Dannielle Thomas MD Referring Provider Active Start: May 02, 2025 End: May 02, 2025 Dr. Elvis Sharif MD Attending Provider Active Sta rt: May 02, 2025 End: May 02, 2025 Team Status: Inactive Member Role/Relationship Status Dates Dr. Dannielle Thomas MD Primary Care Provider Active Start: May 16, 2025 Dr. Inez Rousseau MD Attending Provider Active Start: May 16, 2025 Team Status: Inactive Member Role/Relationship Status Dates Dr. Dannielle Thomas MD Primary Care Provider Active Start: May 19, 2025 End: May 19, 2025 Dr. Dannielle Thomas MD Referring Provider Active Start: May 19, 2025 End: May 19, 2025 Bam DELVALLE, [place] Attending Provider Active Sta rt: May 19, 2025 End: May 19, 2025 Team Status: Inactive Member Role/Relationship Status Dates Dr. Dannielle Thomas MD Primary Care Provider Active Start: March 21, 2025 End: March 21, 2025 Dr. Dannielle Thomas MD Referring Provider Active Start: March 21, 2025 End: March 21, 2025 Gurwinder Urena MD Attending Provider Active St art: March 21, 2025 End: March 21, 2025 Team Status: Inactive Member Role/Relationship Status Dates Dr. Dannielle Thomas MD Primary Care Provider Active Start: March 21, 2025 End: March 21, 2025 Dr. Gualberto Gomez MD Attending Provider Active S tart: March 21, 2025 End: March 21, 2025 Team Status: Inactive Member Role/Relationship Status Dates Dr. Dannielle Thomas MD Primary Care Provider Active Start: April 18, 2025 End: April 18, 2025 Dr. Dannielle Thomas MD Referring Provider Active Start: April 18, 2025 End: April 18, 2025 Gurwinder Urena MD Attending Provider Active St art: April 18, 2025 End: April 18, 2025 Team Status: Inactive Member Role/Relationship Status Dates Dr. Dannielle Thomas MD Primary Care Provider Active Start: April 18, 2025 End: April 18, 2025 Dr. Gualberto Gomez MD Attending Provider Active S tart: April 18, 2025 End: April 18, 2025 Team Status: Inactive Member Role/Relationship Status Dates Dr. Dannielle Thomas MD Primary Care Provider Active Start: April 27, 2025 End: April 27, 2025 Dr. Dominik Loza MD Attending Provider Active Start: April 27, 2025 End: April 27, 2025 Dr. Dominik Loza MD Referring Provider Active Start: April 27, 2025 End: April 27, 2025 Team Status: Inactive Member Role/Relationship Status Dates Dr. Dannielle Thomas MD Primary Care Provider Active Start: May 02, 2025 End: May 02, 2025 Dr. Dannielle Thomas MD Referring Provider Active Start: May 02, 2025 End: May 02, 2025 Dr. Elvis Sharif MD Attending Provider Active Sta rt: May 02, 2025 End: May 02, 2025 Team Status: Inactive Member Role/Relationship Status Dates Dr. Dannielle Thomas MD Primary Care Provider Active Start: May 16, 2025 Dr. Inez Rousseau MD Attending Provider Active Start: May 16, 2025 Team Status: Inactive Member Role/Relationship Status Dates Dr. Dannielle Thomas MD Primary Care Provider Active Start: May 19, 2025 End: May 19, 2025 Dr. Dannielle Thomas MD Referring Provider Active Start: May 19, 2025 End: May 19, 2025 MOOK Gustafson Attending Provider Active Sta rt: May 19, 2025 End: May 19, 2025 Team Status: Inactive Member Role/Relationship Status Dates Dr. Dannielle Thomas MD Primary Care Provider Active Start: July 10, 2025 End: July 10, 2025 Dr. Dannielle Thomas MD Referring Provider Active Start: July 10, 2025 End: July 10, 2025 Dr. Inez Rousseau MD Attending Provider Active Start: July 10, 2025 End: July 10, 2025 Goals (unrecognized section and content) Goals may be documented in a n alternate sectionGoals may be documented in an alternate sectionGoals may be documented in an alternate sectionGoals may be documented in an alternate sectionGoals may be documented in an alternate sectionGoals may be documented in an alternate sectionGoals may be documented in an alternate sectionGoals may be documented in an alternate sectionGoals may be documented in an alternate sectionGoals may be documented in an alternate sectionGoals may be documented in an alternate sectionGoals may be documented in an alternate section FOR RECORDS PERTAINING TO PATIENTS WHO ARE [...] BE BASED ON THE PRIMARY CLINICAL RECORDS. [employer] [facility]. provides no warranty or guarantee of the accuracy or completeness of information in this document.
--- NOTE | 2025-09-11 07:26 | US_ITS ---
PROCEDURE: ABD LIMITED W/ ELASTOGRAPHY REASON FOR EXAM: FATTY LIVER COMPARISON: None. TECHNIQUE: Procedure Code: [id number] Modality: US Procedure: ABD LIMITED W/ ELASTOGRAPHY Right upper quadrant abdominal ultrasound. [facility]ha ElastQ Imaging shear wave elastography for non-invasive assessment of liver tissue stiffness. Radha EPIQ Elite. FINDINGS: LIVER: Size: Enlarged (hepatomegaly) Length: 19.1 cm Echotexture: Diffusely echogenic suggesting fatty infiltration Contour: Normal Lesions: None identified Elastography: EQI Med: 5.1 kPa EQI Med Aris: 1.3 m/s IQR/Med: 12.3 %* GALLBLADDER: Surgically absent. COMMON BILE DUCT: Normal measuring 5 mm . PANCREAS: Normal Visualized portions of the right kidney are unremarkable. No right upper quadrant ascites. US/ABD Limited w/ Elastography IMPRESSION: NO TO MILD HEPATIC FIBROSIS Hepatomegaly and fatty infiltration of the liver. Reference Values: SRU <1.37 m/s (5.7kPa): No to mild fibrosis 1.37 m/s - 2.2 m/s: Moderate to severe fibrosis >2.2 m/s (15kPa): Significant fibrosis / cirrhosis METAVIR Score F2 or higher: 1.34 m/s (5.7kPa) F3 or higher: 1.55 m/s (7.3kPa) F4: 1.80 m/s (10kPa) * If the IQR/Med is >30%, the variance in the measurements is a large and the a ccuracy of the measurement may be in question. Reading Location: [facility]
== END | disposition home or self-care (01) ==
PROVIDERS: PCP Internal Medicine; Referring Provider Student in an Organized Health Care Education/Training Program; Visit Provider Student in an Organized Health Care Education/Training Program
DX: K76.0 Fatty (change of) liver, not elsewhere classified (principal)
CPT/HCPCS: 76705; 76981

== ENCOUNTER 2025-09-13 07:06 | Day surgery (SDC) | payer MEDICARE, SELFPAY ==
--- NOTE | 2025-09-12 18:00 | PAT.ANESEVAL ---
Pre-Assessment Diagnosis/Proposed Procedure Planned Operative Procedure(s): COLONOSCOPY, EGD Anesthesia History Anesthesia History - hand coke drawer: Anesthesia History - hand coke drawer Hx Hospitalization No 09/12/25 10:20 Any Problems With Anesthesia No 09/12/25 10:20 Cholinesterase deficiency No 09/12/25 10:20 You/Your Family Experience No 09/12/25 10:20 fever (hyperthermia) with Relationship Recent Exposure to Contagious No 05/19/25 11:11 Disease Does patient have nerve No 09/12/25 10:20 stimulator Patient instructed to have device shut off --Does patient have Pacemaker or ICD? When Was Last Pacemaker Check QUESTION #4 FULL TEXT: You/Your Family Experience fever (hyperthermia) with Anesthesia Last Oral Intake Last Oral intake: Last Oral Intake NPO since Meds taken in AM with sips of water? Meds patient instructed to take am of surgery PONV PONV - hand coke drawer: PONV - hand coke drawer Female Yes 09/12/25 10:20 HX of Motion Sickness No 09/12/25 10:20 HX of N/V After Surgery Yes 09/12/25 10:20 Non-Smoker No 09/12/25 10:20 Duration of Surgery greater Yes 09/12/25 10:20 than 60 minutes Number of Risk Factors 3 09/12/25 10:20 PONV Score Moderate Risk 09/12/25 10:20 Height & Weight Height & Weight: Anesthesia: Height & Weight Height 5 ft 1 in 09/07/25 08:04 Respiratory Assessment Respiratory Assessment - hand coke drawer: Respiratory Tract Infection Hx - hand coke drawer Hx Respiratory Tract Infection No 09/12/25 10:20 STOP Sleep Apnea STOP Sleep Apnea - hand coke drawer: STOP Sleep Apnea - hand coke drawer Hx Hypertension Yes: CONTROLLED WITH MEDS 09/12/25 10:20 Hx Sleep Apnea Yes 09/12/25 10:20 CPAP No: CAN'T WEAR 09/12/25 10:20 BIPAP No 09/12/25 10:20 Do you snore loudly (louder than talking or can be heard Do you often feel tired/ fatigued/ sleepy during daytime? Has anyone observed you stop breathing during sleep? STOP Results Positive 09/12/25 10:20 QUESTION #5 FULL TEXT : Do you snore loudly (louder than talking or can be heard through closed doors)? 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 Specify any problems Hx of Preganancy in last 3 No 09/12/25 10:20 Months Nurse Filling Out Transfusion [id number] 09/12/25 10:20 & Questions: Date: 09/12/25 09/12/25 10:20 Time: 09/12/25 10:20 Patient unable to answer at this time (ie. confused, unrespo /Reproduction History /Reproductive History - hand coke drawer: /Reproductive Hx- hand coke drawer Hx Now No 09/12/25 10:20 Gestational Age (in weeks): EDC: Hx Hx Para Hx Section SAB No 09/12/25 10:20 [facility] Medical History (Updated 09/12/25 @ 10:35 by Santino Chen) History of steroid therapy Smoker Shortness of breath on exertion Anemia History of Holter monitoring Chest pain Abrasion Fatty liver Low iron Restless legs Back pain Injury of head and neck TIA (transient ischemic attack) Syncope Dietary restriction History of hiatal hernia Former smoker Cervical radiculopathy Fatty liver disease, nonalcoholic Nausea and vomiting Body aches URI (upper respiratory infection) UTI (urinary tract infection) Severe headache Obesity Diabetes Stress incontinence Tachycardia Cardiology follow-up encounter HPV (human papilloma virus) anogenital infection Chest pain COVID-19 (01/04/23) Urethral stenosis Wears dentures Cancer Marijuana use Ambulates with cane High cholesterol TIA (transient ischemic attack) Gastric reflux History of IBS CPAP (continuous positive airway pressure) dependence Chronic cough COPD (chronic obstructive pulmonary disease) Leg cramps History of pain when walking History of echocardiogram History of stress test Vitamin D deficiency Vascular disease History of stomach ulcers Osteoporosis Neuropathy Liver disease IBS (irritable bowel syndrome) Arthritis Nonobstructive atherosclerosis of coronary artery Essential (primary) hypertension Incidental lung nodule, > 3mm and < 8mm Tobacco abuse MELYSSA (obstructive sleep apnea) Trigeminal neuralgia Dysmetabolic syndrome DDD (degenerative disc disease), cervical Asthma DJD (degenerative joint disease) Chronic obstructive lung disease Hyperlipidemia Depression Home Medications ?Medication ?Instructions ?Recorded ?Last Taken ?Type PEP device #1 ea 02/27/20 Unknown Rx aspirin 81 mg tablet,delayed 81 mg PO DAILY #30 tabs 05/21/23 03/07/25 Rx release omeprazole 20 mg tablet,delayed 20 mg PO DAILY heartburn 03/22/24 03/08/25 History release ergocalciferol (vitamin D2) 1,250 1,250 mcg PO WE #12 caps 09/19/24 03/01/25 Rx mcg (50,000 unit) capsule (Vitamin D2) losartan 50 mg tablet 50 mg PO BID #180 tabs 09/19/24 03/08/25 Rx bupropion HCl 200 mg tablet,12 hr 200 mg PO DAILY #90 ea 10/31/24 03/08/25 Rx sustained-release albuterol sulfate 90 mcg/actuation 2 puff inhalation Q6H PRN 12/10/24 03/08/25 Rx aerosol inhaler shortness of breath or wheezing #8.5 grams ondansetron 4 mg disintegrating 4 mg PO Q8H PRN nausea and 01/23/25 03/07/25 Rx tablet vomiting #10 tabs escitalopram oxalate 10 mg tablet 10 mg PO QHS 03/03/25 03/07/25 History (Lexapro) loratadine 10 mg tablet 10 mg PO DAILY 03/08/25 03/08/25 History ezetimibe 10 mg tablet (Zetia) 10 mg PO DAILY #90 tabs 09/07/25 Unknown Rx nitroglycerin 0.4 mg sublingual 0.4 mg sublingual Q5-15M PRN chest 09/07/25 Unknown Rx tablet pain #25 tabs prednisone 10 mg tablet 10 mg PO DIRECTED #21 tabs 09/07/25 Unknown Rx Lactobacillus acidophilus 10 100 mmu cells PO DAILY 09/12/25 Unknown History billion cell capsule (NewFlora) azithromycin 500 mg tablet 500 mg PO DAILY 09/12/25 Unknown History diltiazem HCl 120 mg 120 mg PO DAILY 09/12/25 Unknown History capsule,extended release 24 hr, controlled glucosamine [id number] 1 tab PO DAILY 09/12/25 Unknown History marilia 1,500 mg-400 unit-100 mg tablet (Glucosamine Daily Complex) omega [id number]-fish oil 1,200 mg 1 cap PO DAILY 09/12/25 Unknown History (144 mg-216 mg) capsule (Fish Oil) Allergy/AdvReac Type Severity Reaction Status Date / Time acetaminophen Allergy Severe Hives Verified 09/12/25 10:13 hydrocodone bitartrate (From Allergy Severe Hives Verified 09/12/25 10:13 Vicodin) hydromorphone HCl (From Allergy Severe Hives, Verified 09/12/25 10:13 Dilaudid) feels like on fire Penicillins Allergy Severe Anaphylaxis Verified 09/12/25 10:13 propoxyphene napsylate (From Allergy Severe Hives Verified 09/12/25 10:13 Darvocet-N 100) Sulfa (Sulfonamide Allergy Severe Hives Verified 09/12/25 10:13 Antibiotics) budesonide (From Symbicort) Allergy Angioedema Verified 09/12/25 10:13 cephalexin monohydrate (From Allergy Rash Verified 09/12/25 10:13 Keflex) formoterol (From Symbicort) Allergy Angioedema Verified 09/12/25 10:13 Heparin Analogues Allergy severe Verified 09/12/25 10:13 bruising and rash latex Allergy Rash Verified 09/12/25 10:13 levofloxacin (From Levaquin) Allergy Swelling, Verified 09/12/25 10:13 rash oxycodone HCl (From Percocet) Allergy Hives Verified 09/12/25 10:13 oxytocin Allergy Hives Verified 09/12/25 10:13 Family History Mother Cancer Father Cancer Myocardial infarction Sister Cancer Other Alcoholism Anxiety Arthritis Blood clot associated with vein wall inflammation Breast cancer Cervical cancer Depression Melanoma Mental disorder Osteoporosis Surgical History (Updated 09/12/25 @ 10:35 by Santino Chen) H/O bladder repair surgery History of cystoscopy History of cystoscopy H/O dilation of urethra History of repair of hiatal hernia History of cardiac catheterization History of sinus surgery History of cervical spinal surgery History of tubal ligation History of appendectomy History of cholecystectomy Social History Smoking Status: Current every day smoker tobacco type: cigarettes Tobacco: How many years used: 54 second hand exposure: Yes alcohol intake: current alcohol intake frequency: holidays/special occasions only substance use type: does not use, former substance user Date of last use: 2004, marijuana and crack/cocaine caffeine: Yes what type of physical activity do you participate in: walking Audit: Pertinent Findings Pertinent Findings EKG Perinent findings: EKG 12/10/2024. Normal sinus rhythm. Stress test pertinent findings: Stress test 12-24. There is no evidence of significant ischemia or infarction. The gated Cardiolite study reports an LVEF of greater than 70%. Heart catheterization pertinent findings: Heart cath 06/08/2023. Conclusions no obstructive coronary artery. Recommendations: medical therapy. Consult pertinent findings: Cardiology visit 09/07/2025. 64-year-old lady who presents to the office for a cardiovascular visit. Patient has history of nonobstructive coronary artery disease. Her cardiac cath from 723 nonobstructive coronary artery disease with moderate luminal irregularities up to 50% in the proximal RCA. This was reviewed with patient. She will continue with aggressive risk factor and lifestyle modifications, as well as monitoring for any concerning symptoms. Patient history of hypertension. Her blood pressure is mildly elevated in the office today 146/84. She will continue losartan 50 mg twice daily. She was asked to monitor her blood pressure at home, and notify our office of blood pressure readings in 1 to 2 weeks. Recommendation Anesthesia Recommendation Anesthesia recommendation: OPTIMIZED for anesthesia
[2025-09-13] VITALS (8 sets, daily range): BP systolic 94–142; BP diastolic 56–101; PULSE 65–80; RESP 16; TEMP 36.2–36.6; O2SAT 93–100; BMI 34.9
--- NOTE | 2025-09-13 07:27 | PCM.PRE.AN2 ---
ASA Classification* ASA Classification ASA Classification: 3 Assessment & Plan Anesthesia* Anesthesia Assessment Anesthesia Assessment: Discussed sedation and/or anesthesia options, risks, benefits, and alternatives with patient/parents/legal guardian/POA. Questions invited. The patient/parents/legal guardian/POA seems to understand and agrees to proceed with anesthesia plan. Reviewed the physical assessment, medical history, allergy history and patient home medications list prior to surgery/procedure/anesthetic and documented any changes. Performed airway and anesthesia risk assessments. Anesthesia Type Anesthesia Type: MAC Anesthesia Focused Assessment* Airway Assessment Mouth opens: >3 cm Mallampati Score: II Labs Anesthesia Preop lab: CBC WBC, (4.4-11.0) 8.5 K/mm3 09/07/25, 15: RBC, (4.2-5.4) 4.44 M/mm3 09/07/25, 15:01 Hgb, (12.0-15.0) 12.4 g/dL 09/07/25, 15: Hct, (37-47) 37.3 % 09/07/25, 15:01 Plt Count, (150-450) 430 K/mm3 09/07/25, 15:01 CHEMISTRY Potassium, (3.3-5.1) 3.6 mmol/L 09/07/25, 15:01 Sodium, (133-145) 142 mmol/L 09/07/25, 15:01 Magnesium, (1.5-2.2) 1.9 mg/dL 01/23/25, 13:53 BUN, (4-19) 6 mg/dL 09/07/25, 15:01 Creatinine, (0.70-1.20) 0.75 mg/dL 09/07/25, 15:01 Glucose, (70-99) 84 mg/dL 09/07/25, 15:01 POC Glucose, (74-106) 105 mg/dL 03/08/25, 11:27 TSH, (0.358-3.740) 2.160 uIU/mL 11/24/24, 14:29 COAG PT, (11.7-14.9) 12.8 SECONDS 12/10/24, 12:50 Pre-Assessment Diagnosis/Proposed Procedure Planned Operative Procedure(s): COLONOSCOPY, EGD Anesthesia History Anesthesia History - product finisher: Anesthesia History - product finisher Hx Hospitalization No 09/12/25 10:20 Any Problems With Anesthesia No 09/12/25 10:20 Cholinesterase deficiency No 09/12/25 10:20 You/Your Family Experience No 09/12/25 10:20 fever (hyperthermia) with Relationship Recent Exposure to Contagious No 05/19/25 11:11 Disease Does patient have nerve No 09/12/25 10:20 stimulator Patient instructed to have device shut off --Does patient have Pacemaker or ICD? When Was Last Pacemaker Check QUESTION #4 FULL TEXT: You/Your Family Experience fever (hyperthermia) with Anesthesia Last Oral Intake Last Oral intake: Last Oral Intake NPO since Meds taken in AM with sips of water? Meds patient instructed to take am of surgery PONV PONV - product finisher: PONV - product finisher Female Yes 09/12/25 10:20 HX of Motion Sickness No 09/12/25 10:20 HX of N/V After Surgery Yes 09/12/25 10:20 Non-Smoker No 09/12/25 10:20 Duration of Surgery greater Yes 09/12/25 10:20 than 60 minutes Number of Risk Factors 3 09/12/25 10:20 PONV Score Moderate Risk 09/12/25 10:20 Height & Weight Height & Weight: Anesthesia: Height & Weight Height 5 ft 1 in 09/07/25 08:04 Respiratory Assessment Respiratory Assessment - product finisher: Respiratory Tract Infection Hx - product finisher Hx Respiratory Tract Infection No 09/12/25 10:20 STOP Sleep Apnea STOP Sleep Apnea - product finisher: STOP Sleep Apnea - product finisher Hx Hypertension Yes: CONTROLLED WITH MEDS 09/12/25 10:20 Hx Sleep Apnea Yes 09/12/25 10:20 CPAP No: CAN'T WEAR 09/12/25 10:20 BIPAP No 09/12/25 10:20 Do you snore loudly (louder than talking or can be heard Do you often feel tired/ fatigued/ sleepy during daytime? Has anyone observed you stop breathing during sleep? STOP Results Positive 09/12/25 10:20 QUESTION #5 FULL TEXT : Do you snore loudly (louder than talking or can be heard through closed doors)? 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 Specify any problems Hx of Preganancy in last 3 No 09/12/25 10:20 Months Nurse Filling Out Transfusion [id number] 09/12/25 10:20 & Questions: Date: 09/12/25 09/12/25 10:20 Time: 09/12/25 10:20 Patient unable to answer at this time (ie. confused, unrespo /Reproduction History /Reproductive History - product finisher: /Reproductive Hx- product finisher Hx Now No 09/12/25 10:20 Gestational Age (in weeks): EDC: Hx Hx Para Hx Section SAB No 09/12/25 10:20 Active Medications Active Medications: Current Medications Generic Name Dose Route Start Last Admin Trade Name Freq PRN Reason Stop Dose Admin Lactated Ringer's 1,000 mls @ 15 mls/hr 09/13/25 07:15 IV .Q48H ORION PFSH Medical History History of steroid therapy Smoker Shortness of breath on exertion Anemia History of Holter monitoring Chest pain Abrasion Fatty liver Low iron Restless legs Back pain Injury of head and neck TIA (transient ischemic attack) Syncope Dietary restriction History of hiatal hernia Former smoker Cervical radiculopathy Fatty liver disease, nonalcoholic Nausea and vomiting Body aches URI (upper respiratory infection) UTI (urinary tract infection) Severe headache Obesity Diabetes Stress incontinence Tachycardia Cardiology follow-up encounter HPV (human papilloma virus) anogenital infection Chest pain COVID-19 (01/04/23) Urethral stenosis Wears dentures Cancer Marijuana use Ambulates with cane High cholesterol TIA (transient ischemic attack) Gastric reflux History of IBS CPAP (continuous positive airway pressure) dependence Chronic cough COPD (chronic obstructive pulmonary disease) Leg cramps History of pain when walking History of echocardiogram History of stress test Vitamin D deficiency Vascular disease History of stomach ulcers Osteoporosis Neuropathy Liver disease IBS (irritable bowel syndrome) Arthritis Nonobstructive atherosclerosis of coronary artery Essential (primary) hypertension Incidental lung nodule, > 3mm and < 8mm Tobacco abuse MELYSSA (obstructive sleep apnea) Trigeminal neuralgia Dysmetabolic syndrome DDD (degenerative disc disease), cervical Asthma DJD (degenerative joint disease) Chronic obstructive lung disease Hyperlipidemia Depression Home Medications ?Medication ?Instructions ?Recorded ?Last Taken ?Type PEP device #1 ea 02/27/20 Unknown Rx aspirin 81 mg tablet,delayed 81 mg PO DAILY #30 tabs 05/21/23 03/07/25 Rx release omeprazole 20 mg tablet,delayed 20 mg PO DAILY heartburn 03/22/24 03/08/25 History release ergocalciferol (vitamin D2) 1,250 1,250 mcg PO WE #12 caps 09/19/24 03/01/25 Rx mcg (50,000 unit) capsule (Vitamin D2) losartan 50 mg tablet 50 mg PO BID #180 tabs 09/19/24 03/08/25 Rx bupropion HCl 200 mg tablet,12 hr 200 mg PO DAILY #90 ea 10/31/24 03/08/25 Rx sustained-release albuterol sulfate 90 mcg/actuation 2 puff inhalation Q6H PRN 12/10/24 03/08/25 Rx aerosol inhaler shortness of breath or wheezing #8.5 grams ondansetron 4 mg disintegrating 4 mg PO Q8H PRN nausea and 01/23/25 03/07/25 Rx tablet vomiting #10 tabs escitalopram oxalate 10 mg tablet 10 mg PO QHS 03/03/25 03/07/25 History (Lexapro) loratadine 10 mg tablet 10 mg PO DAILY 03/08/25 03/08/25 History ezetimibe 10 mg tablet (Zetia) 10 mg PO DAILY #90 tabs 09/07/25 Unknown Rx nitroglycerin 0.4 mg sublingual 0.4 mg sublingual Q5-15M PRN chest 09/07/25 Unknown Rx tablet pain #25 tabs prednisone 10 mg tablet 10 mg PO DIRECTED #21 tabs 09/07/25 Unknown Rx Lactobacillus acidophilus 10 100 mmu cells PO DAILY 09/12/25 Unknown History billion cell capsule (NewFlora) azithromycin 500 mg tablet 500 mg PO DAILY 09/12/25 Unknown History diltiazem HCl 120 mg 120 mg PO DAILY 09/12/25 Unknown History capsule,extended release 24 hr, controlled glucosamine [id number] 1 tab PO DAILY 09/12/25 Unknown History marilia 1,500 mg-400 unit-100 mg tablet (Glucosamine Daily Complex) omega 4-zpc-myq-fish oil 1,200 mg 1 cap PO DAILY 09/12/25 Unknown History (144 mg-216 mg) capsule (Fish Oil) Allergy/AdvReac Type Severity Reaction Status Date / Time acetaminophen Allergy Severe Hives Verified 09/12/25 10:13 hydrocodone bitartrate (From Allergy Severe Hives Verified 09/12/25 10:13 Vicodin) hydromorphone HCl (From Allergy Severe Hives, Verified 09/12/25 10:13 Dilaudid) feels like on fire Penicillins Allergy Severe Anaphylaxis Verified 09/12/25 10:13 propoxyphene napsylate (From Allergy Severe Hives Verified 09/12/25 10:13 Darvocet-N 100) Sulfa (Sulfonamide Allergy Severe Hives Verified 09/12/25 10:13 Antibiotics) budesonide (From Symbicort) Allergy Angioedema Verified 09/12/25 10:13 cephalexin monohydrate (From Allergy Rash Verified 09/12/25 10:13 Keflex) formoterol (From Symbicort) Allergy Angioedema Verified 09/12/25 10:13 Heparin Analogues Allergy severe Verified 09/12/25 10:13 bruising and rash latex Allergy Rash Verified 09/12/25 10:13 levofloxacin (From Levaquin) Allergy Swelling, Verified 09/12/25 10:13 rash oxycodone HCl (From Percocet) Allergy Hives Verified 09/12/25 10:13 oxytocin Allergy Hives Verified 09/12/25 10:13 Family History Mother Cancer Father Cancer Myocardial infarction Sister Cancer Other Alcoholism Anxiety Arthritis Blood clot associated with vein wall inflammation Breast cancer Cervical cancer Depression Melanoma Mental disorder Osteoporosis Surgical History H/O bladder repair surgery History of cystoscopy History of cystoscopy H/O dilation of urethra History of repair of hiatal hernia History of cardiac catheterization History of sinus surgery History of cervical spinal surgery History of tubal ligation History of appendectomy History of cholecystectomy Social History Smoking Status: Current every day smoker tobacco type: cigarettes Tobacco: How many years used: 54 second hand exposure: Yes alcohol intake: current alcohol intake frequency: holidays/special occasions only substance use type: does not use, former substance user Date of last use: 2004, marijuana and crack/cocaine caffeine: Yes what type of physical activity do you participate in: walking Review of Systems (Anesthesia) ROS Narrative System reviewed and no additional complaints, except as documented.
[2025-09-13] MEDS: Lactated Ringers 1,000 ML 15 ML IV (07:36)
--- NOTE | 2025-09-13 08:15 | COLBX_PTH ---
PATIENT: BRITNEY NICOLE LOC: EN U#:[id number] AGE/SX: 64/F ROOM: RE09/13/[address]: Dr. Pranav Brice DO : 1960 BED: DIS: 09/13/2025 SPEC #: [id number] RECD: 09/13/25 09:36 STATUS: ROBERTO MICHAEL #: [id number] AIDEE: 09/13/25 08:[address]: Pranav Brice DEPT: SURGICAL PATHOLOGY RECD BY: Elías Roberts ENTERED: 09/13/25 10:33 SP TYPE: COLON BX OTHR DR: Dr. Leia Thomas MD Tissues: A - Gastric mucous membrane B - Duodenum, NOS C - Esophagus, NOS D - SPLENIC FLEXURE E - Ileum, NOS F - COLON BIOPSY G - Sigmoid colon biopsy Procedures: Immunohistochemical Stains Surgery Specimen Level IV HEADER OPERATION: Colonoscopy with biopsy, EGD with biopsy and dilatation PRE-OP DIAGNOSIS: Heartburn, irritable bowel syndrome, history of IBS, gastric reflux TISSUE SUBMITTED: A- Gastric antrum biopsy, B- Duodenum biopsy, C- Distal esophagus biopsy, D- Splenic flexure polyp biopsy, E- Terminal ileum biopsy, F- Random colon biopsy, G- Sigmoid colon polyp biopsy MICROSCOPIC DIAGNOSIS A. Gastric antrum, biopsy: - Antral mucosa with features of reactive gastropathy and focal mild acute inflammation. - IHC negative for H. pylori organisms. B. Duodenum, biopsy: - no specific pathologic change. -negative for increased intraepithelial lymphocytes. C. Distal esophagus, biopsy: - squamous mucosa with reactive changes, negative for eosinophils. D. Splenic flexure, polyp, biopsy: - Tubular adenoma. E. Terminal ileum, biopsy: - no specific pathologic change. F. Colon, random, biopsy: - no specific pathologic change. - The histologic features of microscopic colitis are not demonstrated. G. Splenic flexure, polyp, biopsy: - Tubular adenoma. MICROSCOPIC DESCRIPTION Slides are reviewed. All matched controls reacted appropriately. These tests were developed and their performance characteristics determined by [facility]. They may not have been cleared or approved by the U.S. Food and Drug Administration. The FDA has determined that such clearance or approval is not necessary. The above immunohistochemical markers and/or special?stains have been reviewed by the Pathologist. GROSS DESCRIPTION A. Received in fixative is one container labeled with the patient's name and designated Gastric antrum biopsy. The specimen consists of two irregular fragments of hidalgo tissue, each measuring 0.5 cm. The specimen is totally submitted in one cassette. B. Received in fixative is one container labeled with the patient's name and designated Duodenum biopsy. The specimen consists of two irregular fragments of hidalgo tissue, each measuring 0.3 cm. The specimen is totally submitted in one cassette. C. Received in fixative is one container labeled with the patient's name and designated Distal esophagus biopsy. The specimen consists of multiple irregular fragments of hidalgo tissue that in aggregate measure 1 x 0.3 x 0.1 cm. The specimen is totally submitted in one cassette. D. Received in fixative is one container labeled with the patient's name and designated Splenic flexure polyp biopsy. The specimen consists of one irregular fragment of hidalgo tissue that measures 0.5 cm. The specimen is totally submitted in one cassette. E. Received in fixative is one container labeled with the patient's name and designated Terminal ileum biopsy. The specimen consists of one irregular fragment of hidalgo tissue that measures 0.5 cm. The specimen is totally submitted in one cassette. F. Received in fixative is one container labeled with the patient's name and designated Random colon biopsy. The specimen consists of multiple irregular fragments of hidalgo tissue that in aggregate measure 1.5 x 0.8 x 0.1 cm. The specimen is totally submitted in one cassette. G. Received in fixative is one container labeled with the patient's name and designated Sigmoid colon polyp. The specimen consists of one irregular fragment of hidalgo tissue that measures 0.4 cm. The specimen is totally submitted in one cassette. PR 09/13/2025 CPT:[id number]
--- NOTE | 2025-09-13 08:15 | PCM.HP.STD ---
HPI - General General Date of Admission: 09/13/25 Date of Service: 09/13/25 Chief Complaint: Abdominal pain and diarrhea HPI Narrative BRITNEY NICOLE, is a 64 F who presents [ Chief Complaint: Fatty liver, abdominal pain and diarrhea Prior workup [facility]: MRI liver 18 right lobe of liver and lower pole of bilateral kidneys not included in exam. Extensive hepatic steatosis with some areas of sparing; 4mm hepatic cyst. Liver biopsy 08.30.18 severe steatosis 70%; mild lobule inflammation. EGD and colonoscopy 10.22.21 EGD no path changes of duodenum Colonoscopy no path changes of random biopsy Biochemical A1c H12.4, AST [id number] H124 FIB4 1.2 Urologist OV 01.22.23 with discussion regarding her liver disease. Reports she can feel her liver when she palpates and would like referred to a new GI doctor. History of cocaine abuse. Additional GI history includes esophageal reflux, IBS, gallstones, hiatal hernia, fecal incontinence, gastric ulcers, s/p cholecystectomy. *[facility] established 10.15.23 Reports she was diagnosed with POLANCO at [facility] following liver biopsy. 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 Former use of cocaine; she has been drug free for at least 20 years. No alcohol abuse in her past. No Family history of liver disease. OV 08/25/2025 patient here today for follow-up. She has had loose stool for many years. She has about 5 bowel movements per day that are watery. Patient also endorsing epigastric pain and reflux since being on Ozempic. She takes omeprazole 20 mg [id number] and Tums as needed. ] [facility] Medical History (Updated 09/13/25 @ 08:[address] Rock Friend, DO) History of steroid therapy Smoker Shortness of breath on exertion Anemia History of Holter monitoring Chest pain Abrasion Fatty liver Low iron Restless legs Back pain Injury of head and neck TIA (transient ischemic attack) Syncope Dietary restriction History of hiatal hernia Former smoker Cervical radiculopathy Fatty liver disease, nonalcoholic Nausea and vomiting Body aches URI (upper respiratory infection) UTI (urinary tract infection) Severe headache Obesity Diabetes Stress incontinence Tachycardia Cardiology follow-up encounter HPV (human papilloma virus) anogenital infection Chest pain COVID-19 (01/04/23) Urethral stenosis Wears dentures Cancer Marijuana use Ambulates with cane High cholesterol TIA (transient ischemic attack) Gastric reflux History of IBS CPAP (continuous positive airway pressure) dependence Chronic cough COPD (chronic obstructive pulmonary disease) Leg cramps History of pain when walking History of echocardiogram History of stress test Vitamin D deficiency Vascular disease History of stomach ulcers Osteoporosis Neuropathy Liver disease IBS (irritable bowel syndrome) Arthritis Nonobstructive atherosclerosis of coronary artery Essential (primary) hypertension Incidental lung nodule, > 3mm and < 8mm Tobacco abuse MELYSSA (obstructive sleep apnea) Trigeminal neuralgia Dysmetabolic syndrome DDD (degenerative disc disease), cervical Asthma DJD (degenerative joint disease) Chronic obstructive lung disease Hyperlipidemia Depression Home Medications ?Medication ?Instructions ?Recorded ?Last Taken ?Type PEP device #1 ea 02/27/20 Unknown Rx aspirin 81 mg tablet,delayed 81 mg PO DAILY #30 tabs 05/21/23 03/07/25 Rx release omeprazole 20 mg tablet,delayed 20 mg PO DAILY heartburn 03/22/24 09/13/25 History release ergocalciferol (vitamin D2) 1,250 1,250 mcg PO WE #12 caps 09/19/24 03/01/25 Rx mcg (50,000 unit) capsule (Vitamin D2) losartan 50 mg tablet 50 mg PO BID #180 tabs 09/19/24 09/13/25 Rx bupropion HCl 200 mg tablet,12 hr 200 mg PO DAILY #90 ea 10/31/24 03/08/25 Rx sustained-release albuterol sulfate 90 mcg/actuation 2 puff inhalation Q6H PRN 12/10/24 03/08/25 Rx aerosol inhaler shortness of breath or wheezing #8.5 grams ondansetron 4 mg disintegrating 4 mg PO Q8H PRN nausea and 01/23/25 03/07/25 Rx tablet vomiting #10 tabs escitalopram oxalate 10 mg tablet 10 mg PO QHS 03/03/25 03/07/25 History (Lexapro) loratadine 10 mg tablet 10 mg PO DAILY 03/08/25 03/08/25 History ezetimibe 10 mg tablet (Zetia) 10 mg PO DAILY #90 tabs 09/07/25 Unknown Rx nitroglycerin 0.4 mg sublingual 0.4 mg sublingual Q5-15M PRN chest 09/07/25 Unknown Rx tablet pain #25 tabs prednisone 10 mg tablet 10 mg PO DIRECTED #21 tabs 09/07/25 Unknown Rx Lactobacillus acidophilus 10 100 mmu cells PO DAILY 09/12/25 Unknown History billion cell capsule (NewFlora) azithromycin 500 mg tablet 500 mg PO DAILY 09/12/25 Unknown History diltiazem HCl 120 mg 120 mg PO DAILY 09/12/25 Unknown History capsule,extended release 24 hr, controlled glucosamine [id number] 1 tab PO DAILY 09/12/25 Unknown History marilia 1,500 mg-400 unit-100 mg tablet (Glucosamine Daily Complex) omega 5-dth-huu-fish oil 1,200 mg 1 cap PO DAILY 09/12/25 Unknown History (144 mg-216 mg) capsule (Fish Oil) Allergy/AdvReac Type Severity Reaction Status Date / Time acetaminophen Allergy Severe Hives Verified 09/13/25 07:30 hydrocodone bitartrate (From Allergy Severe Hives Verified 09/13/25 07:30 Vicodin) hydromorphone HCl (From Allergy Severe Hives, Verified 09/13/25 07:30 Dilaudid) feels like on fire Penicillins Allergy Severe Anaphylaxis Verified 09/13/25 07:30 propoxyphene napsylate (From Allergy Severe Hives Verified 09/13/25 07:30 Darvocet-N 100) Sulfa (Sulfonamide Allergy Severe Hives Verified 09/13/25 07:30 Antibiotics) budesonide (From Symbicort) Allergy Angioedema Verified 09/13/25 07:30 cephalexin monohydrate (From Allergy Rash Verified 09/13/25 07:30 Keflex) formoterol (From Symbicort) Allergy Angioedema Verified 09/13/25 07:30 Heparin Analogues Allergy severe Verified 09/13/25 07:30 bruising and rash latex Allergy Rash Verified 09/13/25 07:30 levofloxacin (From Levaquin) Allergy Swelling, Verified 09/13/25 07:30 rash oxycodone HCl (From Percocet) Allergy Hives Verified 09/13/25 07:30 oxytocin Allergy Hives Verified 09/13/25 07:30 Family History Mother Cancer Father Cancer Myocardial infarction Sister Cancer Other Alcoholism Anxiety Arthritis Blood clot associated with vein wall inflammation Breast cancer Cervical cancer Depression Melanoma Mental disorder Osteoporosis Surgical History H/O bladder repair surgery History of cystoscopy History of cystoscopy H/O dilation of urethra History of repair of hiatal hernia History of cardiac catheterization History of sinus surgery History of cervical spinal surgery History of tubal ligation History of appendectomy History of cholecystectomy Social History Smoking Status: Current every day smoker tobacco type: cigarettes Tobacco: How many years used: 54 second hand exposure: Yes alcohol intake: current alcohol intake frequency: holidays/special occasions only substance use type: does not use, former substance user Date of last use: 2004, marijuana and crack/cocaine caffeine: Yes what type of physical activity do you participate in: walking ROS Constitutional Constitutional: Denies fatigue, fever(s), poor appetite, weight gain or weight loss Gastrointestinal Gastrointestinal: Denies belching, bloating, change in bowel habits, change in stool character, chewing difficulty, coffee ground emesis, constipation, cramping, diarrhea, dyspepsia, dysphagia, early satiety, excessive flatus, fecal incontinence, heartburn, hematemesis, hematochezia, hemorrhoids, loose stools, melena, nausea, odynophagia, rectal bleeding, tenesmus, vomiting or weight changes Vital Signs Vital Signs Vital Signs: 09/13/25 07:31 09/13/25 07:31 Temperature 97.9 F Temperature Source Temporal Pulse Rate 80 Respiratory Rate 16 Respiratory Pattern Normal Blood Pressure 142/101 H Blood Pressure Mean 114 Blood Pressure Source Monitor Blood Pressure Position Sitting Blood Pressure Location Left Arm Pulse Ox 98 Oxygen Delivery Method Room Air Weight Weight: 185 lb 3.013 oz Body Mass Index (BMI) 34.9 Physical Exam Const alert, oriented x3, no apparent distress and healthy appearing General Appearance: cooperative GI normal to inspection, nondistended, normoactive bowel sounds, soft to palpation, non-tender and non-distended Percussion: normal to percussion Rectal Exam: deferred Assessment & Plan Assessment/Plan (1) Heartburn: (2) IBS (irritable bowel syndrome): (3) History of IBS: (4) Gastric reflux: PLAN: Plan Assessment and Plan Assessment and Plan (1) IBS (irritable bowel syndrome): Status: Acute Plan: Britney is a 64-year-old female patient here today for follow-up regarding her fatty liver and IBS. Patient established in our office in 2022 with concerns for fatty liver. She underwent liver elastography which showed mild to moderate liver fibrosis. No further treatment was initiated due to patient not having a follow-up. Will repeat liver elastography and consider Rezdiffra. Patient with complaints of loose stool up to 5 times per day. She believes this may have started after she had her gallbladder out many years ago. Patient also having increased reflux and epigastric pain since starting Ozempic. Patient will undergo EGD and colonoscopy for further evaluation of her GI symptoms. I recommended increasing her omeprazole to 40 mg daily in the meantime. - Liver elastography - EGD - Colonoscopy - Increase omeprazole - Consider Rezdiffra - Follow-up after endoscopy (2) Fatty liver disease, nonalcoholic: Status: Acute (3) Heartburn: Status: Acute Orders: Orders ABD Limited w/ Elastography Today K76.0 - Fatty (change of) liver, not elsewhere classified
--- NOTE | 2025-09-13 09:06 | POSTOP.ANE_ITS ---
Anesthesia: Postop Eval I
--- NOTE | 2025-09-13 09:06 | PCM.POST.ANE ---
Anesthesia: Postop Eval I Current Vital Signs Temperature: 97.1 F Pulse Rate: 70 Blood Pressure: 94/59 Respiratory Rate: 16 Pulse Ox: 100 Oxygen Delivery Method: Room Air Assessment Airway patent: Yes Spontaneous unlabored respirations: Yes Mental status: Awake and Calm nausea: No Vomiting: No Anesthesia Complication: No Fluid Hydration Crystalloid volume administer (ml): 600 Total IV fluid infused: 600 Progress Note Anesthesia document: Postop Eval 1 completed: Yes
--- NOTE | 2025-09-13 09:07 | OP.EGD_ITS ---
Patient Name: Judy Marie
--- NOTE | 2025-09-13 09:10 | OP.COLON_ITS ---
Patient Name: Judy Marie
--- NOTE | 2025-09-13 10:12 | POSTOPAN2_ITS ---
Anesthesia Postop Eval I Sum
--- NOTE | 2025-09-13 10:12 | PCM.POSTANE2 ---
Anesthesia Postop Eval I Sum Postop Eval Completion status Anesthesia document: Postop Eval 1 completed: Yes Anesthesia Postop Eval I Summary Anesthesia Postop Eval I Summary: Anesthesia Postop Eval I: Assessment Summary Airway patent Yes 09/13/25 09:07 [email or web address] Spontaneous unlabored Yes 09/13/25 09:07 [email or web address] respirations Mental status Awake,Calm 09/13/25 09:07 [email or web address] nausea No 09/13/25 09:07 [email or web address] Vomiting No 09/13/25 09:07 [email or web address] Anesthesia Postop Eval I: Fluid Summary Crystalloid volume administer 600 09/13/25 09:07 [email or web address] (ml) Colloids volume administered ( ml) Blood Product volume administered (ml) Total IV fluid infused 600 09/13/25 09:07 [email or web address] Anesthesia Postop Eval I: Summary Notes Anesthesia Complication No 09/13/25 09:07 [email or web address] Anesthesia Complication Comment: Post-operative progress note Anesthesia: Postop Eval II Evaluation Mental status: Awake Pain Level: 0 nausea: No Vomiting: No
== END 2025-09-13 09:44 | disposition home or self-care (01) ==
LOC: EN 07:06 → AC 07:12
PROVIDERS: PCP Internal Medicine; Referring Provider Internal Medicine; Visit Provider Internal Medicine Gastroenterology
PROC: 0DJD8ZZ Inspection of Lower Intestinal Tract, Via Natural or Artificial Opening Endoscopic (ICD-10-PCS; CPT 45378; principal; 2025-09-13 08:10)
DX: K58.0 Irritable bowel syndrome with diarrhea (principal); J44.9 Chronic obstructive pulmonary disease, unspecified; E11.9 Type 2 diabetes mellitus without complications; K44.9 Diaphragmatic hernia without obstruction or gangrene; K21.9 Gastro-esophageal reflux disease without esophagitis; I25.10 Atherosclerotic heart disease of native coronary artery without angina pectoris; K63.5 Polyp of colon; K64.1 Second degree hemorrhoids; K76.0 Fatty (change of) liver, not elsewhere classified; K57.30 Diverticulosis of large intestine without perforation or abscess without bleeding; E78.00 Pure hypercholesterolemia, unspecified; K29.80 Duodenitis without bleeding; I10 Essential (primary) hypertension; R13.10 Dysphagia, unspecified; Z79.82 Long term (current) use of aspirin; K63.89 Other specified diseases of intestine; K64.4 Residual hemorrhoidal skin tags; K29.50 Unspecified chronic gastritis without bleeding; Z90.49 Acquired absence of other specified parts of digestive tract; Z86.73 Personal history of transient ischemic attack (TIA), and cerebral infarction without residual deficits; G47.33 Obstructive sleep apnea (adult) (pediatric); Z99.89 Dependence on other enabling machines and devices; Z79.899 Other long term (current) drug therapy; F32.A Depression, unspecified; Z98.51 Tubal ligation status; F17.210 Nicotine dependence, cigarettes, uncomplicated; R10.13 Epigastric pain; K22.89 Other specified disease of esophagus; K22.2 Esophageal obstruction; K29.00 Acute gastritis without bleeding
CPT/HCPCS: 43248; 45380; 82962; 88305; 88342; C1769; J2405